=== PATIENT | male | born 1990 | race Caucasian/White ===

== ENCOUNTER 2021-07-27 12:46 | Emergency (ER) | payer MEDICAID, SELFPAY ==
[2021-07-27 12:47] VITALS: BP 162/98; PULSE 97; RESP 18; TEMP 35.8; O2SAT 98; BMI 22.0
--- NOTE | 2021-07-27 13:08 | EX.ED.VIS.PS ---
HPI HPI - Psych History of Present Illness Chief Complaint: Suicidal Informant: patient Narrative Narrative: Patient comes in with suicidal thoughts. He states he has been off his duloxetine for about a week. It did really get started then. But today he just cannot get the thought out of his mind. He does not have a specific plan. Despite a history of depression, he has never had suicidal thoughts before. He has never been admitted for psychiatric reasons. He has had multiple stressors this year. He and his broke up at the end of last year. He has been up in this area again since May living with his mother. He also got Covid back in May. His mother has psychiatric illness and there have been stresses at home. He thinks these are all gaining up on him to produce his symptoms. Nothing really makes them better or worse. He is suspicious that running out of meds might have worsened it. Patient also reports that he is concerned about his health. He had colonoscopy about 1 year ago where they removed some polyps that were cancerous or precancerous. They recommend a repeat colonoscopy in about a year. He states he would be due this month. He occasionally gets some soft stools but no blood. He is not having any symptoms. He has not made arrangements for follow-up. [facility] Medical History Acid reflux Asthma Cancer of intestinal tract Depression Hypertension Polycystic kidney disease Home Medications albuterol sulfate [Proair Hfa (SP)Vent Pts] 1 puff INHALATION Q4H PRN PRN 02/24/16 [History Last Taken Unknown] ketorolac 10 mg PO Q6H PRN #20 tablet 02/03/17 [Rx Last Taken Unknown] ondansetron 4 mg PO Q8H PRN PRN #10 tab 02/03/17 [Rx Last Taken Unknown] oxycodone-acetaminophen 1 - 2 tab PO Q4H PRN PRN #20 tab 02/03/17 [Rx Last Taken Unknown] duloxetine 30 mg PO DAILY #14 cap 07/27/21 [Rx Last Taken Unknown] Allergy/AdvReac Type Severity Reaction Status Date / Time ANTIHISTAMINES AdvReac Other Uncoded 07/27/21 12:49 Social History Smoking Status: Current every day smoker tobacco type: cigarettes ROS ROS ED Constitutional Constitutional ED: Denies fever(s) or subjective Eyes Eyes: Denies blurry vision ENT ENT ED: Denies rhinorrhea or sore throat Cardiovascular Cardiovascular: Denies chest pain Respiratory/Chest Respiratory/Chest: Denies cough or dyspnea Gastrointestinal Gastrointestinal: Denies diarrhea, nausea or vomiting Genitourinary Genitourinary ED: Denies dysuria Musculoskeletal Musculoskeletal: Denies myalgias Integumentary Denies rash Neurologic Neurologic: Denies headache(s) Psychiatric Psychiatric: Reports anxiety, depression and suicidal thoughts Hematologic/Lymphatic Hematologic/Lymphatic: Denies easy bruising Allergic/Immunologic Allergic/Immunologic ED: Denies mouth swelling or urticaria EXAM Physical Exam Const Vital Signs: 07/27/21 12:47 07/27/21 14:22 07/27/21 16:30 Temperature 96.4 F L Temperature Source Temporal Pulse Rate 97 81 Respiratory Rate 18 18 16 Blood Pressure 162/98 H 140/90 H Blood Pressure Mean 119 106 Pulse Ox 98 Oxygen Delivery Method Room Air Positive well nourished and well developed; Negative for unkempt General Appearance ED: well developed; Negative for unkempt HEENT Reports moist mucous membranes Eyes General Eye ED: Negative for pale conjunctiva or scleral icterus Neck no JVD Resp normal respiratory effort and clear to auscultation bilaterally Auscultation: Negative for rales, rhonchi or wheezes Cardio Rate: regular rate Rhythm: regular rhythm GI non-tender and non-distended Palpation: soft Neuro oriented x3 Sensorium / Orientation: alert Psych Appearance: grossly normal; Negative for unkempt Skin General Skin Exam: Negative for jaundice Lesions: no lesions Rashes: no rashes MDM MDM MDM Narrative Medical decision making narrative: Blood work shows normal CBC. Electrolytes are normal other than potassium of 3.3. Alcohol is negative. Tox is negative. Patient is medically cleared for psychiatric evaluation. This patient has a history of depression. He has good insight. He has thoughts of suicide but no specific plan. He does not want to do this. He wants to feel a bit better. We will have crisis see him. Crisis has evaluated him. They are getting him close follow-up. They have contracted for safety. He is a reasonable patient who is sober. I will write for a short course of duloxetine to hold him over. We encouraged him to come back if he has any more thoughts. Lab Data Attestation: I reviewed the patient's lab results. Labs: Laboratory Results - last 24 hr 07/27/21 07/27/21 07/27/21 13:19 13:19 13:19 WBC 8.9 RBC 5.19 Hgb 15.9 Hct 47.4 MCV 91.3 MCH 30.6 MCHC 33.5 RDW Std Deviation 46.4 H RDW Coeff of Carlyn 13.8 Plt Count 309 MPV 8.4 Immature Gran % (Auto) 0.600 Neut % (Auto) 65.2 Lymph % (Auto) 22.0 [place] % (Auto) 10.8 H Eos % (Auto) 0.8 Baso % (Auto) 0.6 Absolute Neuts (auto) 5.8 Absolute Lymphs (auto) 1.96 Nucleated RBC % 0 Sodium 141 Potassium 3.3 L Chloride 105 Carbon Dioxide 26.0 Anion Gap 10 BUN 8 Creatinine 0.72 Estim Creat Clear Calc 137.02 Est GFR (MDRD) Af Amer 161 Est GFR (MDRD) Non-Af 133 BUN/Creatinine Ratio 11.0 Glucose 88 Calcium 10.0 Urine Opiates Screen Urine Methadone Screen Ur Barbiturates Screen Ur Phencyclidine Scrn Ur Amphetamines Screen U Methamphetamin-MDMA U Benzodiazepines Scrn Urine Cocaine Screen U Cannabinoids Screen Ur Drug Screen Comment Ethyl Alcohol < 3.0 07/27/21 14:13 WBC RBC Hgb Hct MCV MCH MCHC RDW Std Deviation RDW Coeff of Carlyn Plt Count MPV Immature Gran % (Auto) Neut % (Auto) Lymph % (Auto) [place] % (Auto) Eos % (Auto) Baso % (Auto) Absolute Neuts (auto) Absolute Lymphs (auto) Nucleated RBC % Sodium Potassium Chloride Carbon Dioxide Anion Gap BUN Creatinine Estim Creat Clear Calc Est GFR (MDRD) Af Amer Est GFR (MDRD) Non-Af BUN/Creatinine Ratio Glucose Calcium Urine Opiates Screen NEGATIVE Urine Methadone Screen NEGATIVE Ur Barbiturates Screen NEGATIVE Ur Phencyclidine Scrn NEGATIVE Ur Amphetamines Screen NEGATIVE U Methamphetamin-MDMA NEGATIVE U Benzodiazepines Scrn NEGATIVE Urine Cocaine Screen NEGATIVE U Cannabinoids Screen NEGATIVE Ur Drug Screen Comment Ethyl Alcohol Discharge Plan Triage Chief Complaint: Suicidal ED Provider: Juan Pink Dx/Rx/DC Orders Clinical Impression: Depression, Suicide ideation Instructions: Recognizing Suicide Warning ... Prescriptions: New duloxetine 30 mg capsule,delayed release(DR/EC) 30 mg PO DAILY Qty: 14 RF: 0 No Action albuterol sulfate [ProAir HFA] 1 PUFF inhaler 1 puff inhalation Q4H PRN PRN (Reason: Asthma) RF: 0 ketorolac 10 MG tablet 10 mg PO Q6H PRN (Reason: Pain) Qty: 20 RF: 0 oxycodone-acetaminophen 1 TABLET tablet 1 - 2 tab PO Q4H PRN PRN (Reason: Pain) Qty: 20 RF: 0 ondansetron 4 MG tablet 4 mg PO Q8H PRN PRN (Reason: Nausea) Qty: 10 RF: 0 Primary Care Provider: Care Physician,No Primary Referrals: Ronni Landaverde MD [STAFF PHYSICIAN] - As soon as possible Activity Restrictions/Additional Instructions: Follow-up with counseling as arranged by crisis intervention. Disposition Disposition: Home, Self Care
--- NOTE | 2021-07-27 13:19 | ED.RN ---
Patient brought self into ED for evaluation due to vague thoughts of harming self. Patient is calm and cooperative and has no real plan for suicide attempts, never attempted prior. Recent divorce and family issues.
[2021-07-27 13:29] LABS: Absolute Lymphocyte Count 1.96 X10^3/uL (0.83-4.51); Absolute Neutrophil Count 5.8 X10^3/uL (2.0-7.7); Basophil# 0.05 X10^3/uL; Basophil% 0.6 % (0-1); Eosinophil# 0.07 X10^3/uL; Eosinophils% 0.8 % (0-5); Hematocrit 47.4 % (40-54); Hemoglobin 15.9 g/dL (13.0-16.5); Lymphocyte # 1.96 X10^3/ul (0.83-4.51); Mean Corp Hgb Conc 33.5 g/dL (32-36); Mean Corpuscular Hgb 30.6 pg (27.0-32.0); Mean Corpuscular Volume 91.3 fL (80-94); Mean Platelet Vol. 8.4 fl (6.2-12.0); Monocyte# 0.96 X10^3/uL; Monocyte% 10.8 % (0-10); NRBC Flagged by Analyzer 0 % (0-5); Neutrophil # 5.83 X10^3/uL (2.7-7.7); Neutrophil % 65.2 % (47-70); Platelet Count 309 K/mm3 (150-450); RBC Distribution Width CV 13.8 % (11.6-14.6); RBC Distribution Width SD 46.4 fl (35.1-43.9); Red Blood Count 5.19 M/mm3 (4.6-6.2); White Blood Count 8.9 K/mm3 (4.4-11.0)
[2021-07-27 13:41] LABS: Anion Gap 10 (5-15); BUN 8 mg/dL (7-18); Chloride 105 mmol/L (98-107); Creatinine, Serum 0.72 mg/dL (0.70-1.30); EST Glomerular Filtration Rate 133 mL/min (>60); Est Glom Filt Rate - Afr Amer 161 mL/min (>60); Estimated Creatinine Clearance 137.02 ml/min; Glucose 88 mg/dL (74-106); Potassium 3.3 mmol/L (3.5-5.1); Sodium Level 141 mmol/L (136-145)
[2021-07-27 13:49] LABS: Alcohol, Blood (Medical)-Serum < 3.0 mg/dL
[2021-07-27 14:22] VITALS: RESP 18
[2021-07-27 14:50] LABS: Amphetamine Urine VISTA NEGATIVE (<1000 ng/mL); Barbiturate Urine VISTA NEGATIVE (< 200 ng/mL); Benzodiazepine Urine VISTA NEGATIVE (< 200 ng/mL); Cocaine Urine VISTA NEGATIVE (< 300 ng/mL); Ecstacy Urine VISTA NEGATIVE (< 500 ng/mL); Methadone Urine VISTA NEGATIVE (< 300 ng/mL); PCP Urine VISTA NEGATIVE (< 25 ng/mL); THC Urine VISTA NEGATIVE (< 50 ng/mL); Vista UDS pH Range 7
[2021-07-27] MEDS: Potassium Chloride Oral Tablet 20 MEQ 40 MEQ PO (15:29)
[2021-07-27 16:30] VITALS: BP 140/90; PULSE 81; RESP 16
[2021-07-27] MEDS: DULoxetine Hcl 30 MG Capsule PO (18:48)
--- NOTE | 2021-07-27 19:13 | ED.RN ---
Delayed discharge due to awaiting Cymbalta to come from pharmacy. Pt. also requesting blood pressure medication prescription refill at time of discharge, delaying discharge.
[2021-07-27 19:14] VITALS: BP 152/100; PULSE 85
== END 2021-07-27 19:15 | disposition home or self-care (01) ==
PROVIDERS: Emergency Provider Emergency Medicine; Visit Provider Emergency Medicine
DX: F32.A Depression, unspecified (principal); R45.851 Suicidal ideations; F17.210 Nicotine dependence, cigarettes, uncomplicated
CPT/HCPCS: 80048; 80307; 82077; 85025; 87426; 99284

== ENCOUNTER 2022-01-17 22:02 | Emergency (ER) | payer MEDICAID, SELFPAY ==
[2022-01-17 22:02] VITALS: BP 133/97; PULSE 96; RESP 16; TEMP 37; O2SAT 100; BMI 21.2
--- NOTE | 2022-01-17 22:25 | CT_ITS ---
STUDY: CT ABDOMEN AND PELVIS WITHOUT CONTRAST REASON FOR EXAM: Male, 31 years old. Left flank pain. History of kidney stones. RADIATION DOSAGE (If Supplied By Facility): CTDIvol = ( 6.06 ) mGy, DLP = ( 320.79 ) mGycm TECHNIQUE: Transaxial images were obtained from the dome of the diaphragm to the symphysis pubis without oral contrast, and without intravenous contrast. Sagittal and coronal images were reconstructed. Individualized dose optimization techniques were used for this CT. COMPARISON: 02/03/2017. FINDINGS: The visualized lung bases are unremarkable. The visualized portions of the heart are within normal limits. Normal liver. Normal gallbladder and extrahepatic biliary system. Normal spleen. Normal pancreas. Normal bilateral adrenal glands. There is a large water attenuation mass extending off the upper pole of the right kidney measuring 5 x 4.7 x 7.2 cm thought to represent a cyst. There is a thin calcified septation. The there is a 2 mm nonobstructing calculus in the mid renal calyx. 2 mm calcification is seen in the lower pole calyx. No hydronephrosis. Normal visualized right ureter. There is a 3 mm calcification in the urinary bladder at the expected position of the right UVJ.. Left kidney is of normal size and contour. There are multiple tiny nonobstructing renal calculi. The largest in the mid kidney measures 2 mm. Question small upper pole cyst. No hydronephrosis. Normal visualized left ureter. Normal visualized stomach. Normal small intestine. Normal colon. The appendix is visualized and appears normal. Normal abdominal aorta. Normal inferior vena cava. Normal retroperitoneum. Normal urinary bladder. Prostate. No pelvic lymphadenopathy. Phleboliths in the left pelvis. No free air or free fluid is seen within the peritoneal cavity. Normal abdominal wall. Normal osseous structures. CT/Abdomen/Pelvis without Cont IMPRESSION: 1. Bilateral nonobstructing renal calculi without hydronephrosis. 2. Small calcification in the right urinary bladder thought to be a stone at the right UVJ or recently passed stone. 3. Complicated cyst in the upper pole left kidney with thin linear calcified septum. Question BOCHDALEK type II cyst. 4. Question small cortical cyst in the upper pole left kidney. 5. Otherwise normal CT of the abdomen and pelvis. Electronically Signed: Abel Hensley DO at 23:35 EDT Reading Location ID and State: [address] [place] [address] Tel [phone], Service support ,
--- NOTE | 2022-01-17 22:26 | EDS_ITS ---
HPI History of Present Illness Chief Complaint: Flank Pain Informant: patient Narrative Narrative: 31-year-old male presenting to the emergency room with left flank pain. Patient notes a history of kidney stones. Symptoms began abruptly 1 hour ago. He notes radiation to his left testicle. He notes associated nausea. He describes the pain as severe and sharp. [facility] Medical History Acid reflux Asthma Cancer of intestinal tract Depression Hypertension Polycystic kidney disease Home Medications duloxetine 30 mg capsule,delayed release 60 mg PO DAILY 01/17/22 [History Last Taken Unknown] oxycodone-acetaminophen 5 mg-325 mg tablet 1 tab PO Q6H PRN PRN pain 5 days #20 TABLETS 01/18/22 [Rx Last Taken Unknown] Allergy/AdvReac Type Severity Reaction Status Date / Time ANTIHISTAMINES AdvReac Other Uncoded 07/27/21 12:49 Social History (Updated 01/17/22 @ 22:[address] Yordan Stafford DO) Smoking Status: Current every day smoker tobacco type: cigarettes substance use type: does not use ROS ROS ED Constitutional Constitutional ED: Denies chills or weight loss Eyes Eyes: Denies change in vision or diplopia ENT ENT ED: Denies ear pain, rhinorrhea or sore throat Cardiovascular Cardiovascular: Denies chest pain, orthopnea, palpitations or racing heartbeat Respiratory/Chest Respiratory/Chest: Denies cough, dyspnea or orthopnea Gastrointestinal Gastrointestinal: Reports abdominal pain and nausea; Denies diarrhea or vomiting Genitourinary Genitourinary ED: Reports other Details: Flank pain testicular pain ; Denies dysuria, hematuria or urinary frequency Musculoskeletal Musculoskeletal: Denies arthralgias or myalgias Integumentary Denies abscess or rash Neurologic Neurologic: Denies headache(s) or weakness Psychiatric Psychiatric: Denies anxiety, depression, suicidal ideation or suicidal thoughts Endocrine Endocrinology: Denies polydipsia, polyphagia or polyuria Allergic/Immunologic Allergic/Immunologic ED: Denies mouth swelling, tongue swelling or urticaria EXAM Physical Exam Narrative Exam Narrative: Patient appears in pain. Const Vital Signs: 01/17/22 22:02 Temperature 98.6 F Temperature Source Temporal Pulse Rate 96 Respiratory Rate 16 Blood Pressure 133/97 H Blood Pressure Mean 109 Pulse Ox 100 Oxygen Delivery Method Room Air Positive well nourished and well developed General Appearance ED: well developed HEENT Reports normocephalic, head/scalp atraumatic and moist mucous membranes Eyes PERRL and EOMs intact bilaterally Neck no lymphadenopathy, supple and no JVD Resp normal respiratory effort and clear to auscultation bilaterally Cardio regular rate, regular rhythm and no murmurs GI normal to inspection, nondistended, normoactive bowel sounds and non-tender Palpation: soft Narrative: Scrotal examination is benign Back/Spine no CVA tenderness and normal ROM Extremity normal to inspection General Extremety ED: Negative for edema General Extremity: Negative for edema Neuro oriented x3 and CN's II-XII intact bilaterally Sensorium / Orientation: alert Motor Exam: strength 5/5 throughout Psych mental status grossly normal Mood & Affect: Negative for depressed or tearful Skin no rashes or lesions noted and no wounds MDM MDM MDM Narrative Medical decision making narrative: Urine shows some microscopic hematuria. White count at 9. Creatinine 1.07. CT of the abdomen pelvis demonstrates a small right UVJ stone. Patient received pain and nausea medication as well as fluids. Repeat examination finds him saying that he still having testicular pain and now points to more of the mid back instead of the left flank. He received additional dose of pain medicine and is feeling better. He is describing now more of a suprapubic pressure and urge to urinate. I will write for him to have pain medication. Return if worsening or concerns Lab Data Attestation: I reviewed the patient's lab results. Labs: Laboratory Results - last 24 hr 01/17/22 01/17/22 01/17/22 22:10 22:10 23:20 WBC 9.1 RBC 4.92 Hgb 15.4 Hct 45.9 MCV 93.3 MCH 31.3 MCHC 33.6 RDW Std Deviation 45.5 H RDW Coeff of Carlyn 13.3 Plt Count 314 MPV 8.7 Immature Gran % (Auto) 0.200 Neut % (Auto) 50.7 Lymph % (Auto) 32.9 [place] % (Auto) 13.7 H Eos % (Auto) 1.8 Baso % (Auto) 0.7 Absolute Neuts (auto) 4.6 Absolute Lymphs (auto) 2.99 Nucleated RBC % 0 Sodium 141 Potassium 3.6 Chloride 108 H Carbon Dioxide 25.0 Anion Gap 8 BUN 13 Creatinine 1.07 Estim Creat Clear Calc 88.20 Est GFR (MDRD) Af Amer 102 Est GFR (MDRD) Non-Af 84 BUN/Creatinine Ratio 12.1 Glucose 97 Calcium 9.7 Urine Color Yellow Urine Clarity Clear Urine pH 8.0 Ur Specific [place] 1.020 Urine Protein 15 H Urine Glucose (UA) Normal Urine Ketones 15 H Urine Occult Blood 150 H Urine Nitrite Negative Urine Bilirubin Negative Urine Urobilinogen 4 H Ur Leukocyte Esterase 25 H Urine RBC 10-25 SEEN Urine WBC 0-5 SEEN Ur Squamous Epith Cells 0 SEEN Urine Bacteria RARE Urine Mucus 2+ Radiography Diagnostic Testing: Clinical Impression(s) from Imaging Studies Abdomen/Pelvis CT 01/17/22 22:25 IMPRESSION: 1. Bilateral nonobstructing renal calculi without hydronephrosis. 2. Small calcification in the right urinary bladder thought to be a stone at the right UVJ or recently passed stone. 3. Complicated cyst in the upper pole left kidney with thin linear calcified septum. Question [place] type II cyst. 4. Question small cortical cyst in the upper pole left kidney. 5. Otherwise normal CT of the abdomen and pelvis. Electronically Signed: Abel Hensley DO at 23:35 EDT Reading Location ID and State: [address] [place] [address] Tel [phone], Service support , Discharge Plan Triage Chief Complaint: Flank Pain ED Provider: Yordan Stafford Dx/Rx/DC Orders Clinical Impression: Renal colic, Ureterolithiasis Instructions: ED Kidney Stone w/ Colic Prescriptions: New oxycodone-acetaminophen [oxycodone-acetaminophen] 5-325 mg tablet 1 tab PO Q6H PRN PRN (Reason: pain) 5 Days Qty: 20 0RF No Action duloxetine 30 mg capsule,delayed release(DR/EC) 60 mg PO DAILY Primary Care Provider: Care Physician,No Primary Referrals: Rl Vicente MD [STAFF PHYSICIAN] - As Needed (for urology ) Care Physician,No Primary [Primary Care Provider] - Disposition Disposition: Home, Self Care
[2022-01-17 22:34] LABS: Absolute Lymphocyte Count 2.99 X10^3/uL (0.83-4.51); Absolute Neutrophil Count 4.6 X10^3/uL (2.0-7.7); Basophil# 0.06 X10^3/uL; Basophil% 0.7 % (0-1); Eosinophil# 0.16 X10^3/uL; Eosinophils% 1.8 % (0-5); Hematocrit 45.9 % (40-54); Hemoglobin 15.4 g/dL (13.0-16.5); Lymphocyte # 2.99 X10^3/ul (0.83-4.51); Lymphocyte % 32.9 % (19-41); Mean Corp Hgb Conc 33.6 g/dL (32-36); Mean Corpuscular Hgb 31.3 pg (27.0-32.0); Mean Corpuscular Volume 93.3 fL (80-94); Mean Platelet Vol. 8.7 fl (6.2-12.0); Monocyte# 1.24 X10^3/uL; Monocyte% 13.7 % (0-10); NRBC Flagged by Analyzer 0 % (0-5); Neutrophil # 4.61 X10^3/uL (2.7-7.7); Neutrophil % 50.7 % (47-70); Platelet Count 314 K/mm3 (150-450); RBC Distribution Width CV 13.3 % (11.6-14.6); RBC Distribution Width SD 45.5 fl (35.1-43.9); Red Blood Count 4.92 M/mm3 (4.6-6.2); White Blood Count 9.1 K/mm3 (4.4-11.0)
[2022-01-17] MEDS: Ondansetron 4 MG/2 ML Vial IV (22:34)
[2022-01-17] MEDS: Ketorolac 30 MG/ML Syringe IV (22:34)
[2022-01-17] MEDS: Morphine 4 MG/ML Syringe IV (22:34)
[2022-01-17] MEDS: 0.9% Normal Saline 1,000 ML 250 ML IV (22:36)
[2022-01-17 22:49] LABS: Anion Gap 8 (5-15); BUN 13 mg/dL (7-18); BUN/Creat Ratio 12.1 RATIO (10-20); Calcium,Total 9.7 mg/dL (8.5-10.1); Chloride 108 mmol/L (98-107); Creatinine, Serum 1.07 mg/dL (0.70-1.30); EST Glomerular Filtration Rate 84 mL/min (>60); Est Glom Filt Rate - Afr Amer 102 mL/min (>60); Glucose 97 mg/dL (74-106); Potassium 3.6 mmol/L (3.5-5.1); Sodium Level 141 mmol/L (136-145)
[2022-01-17 23:50] LABS: Squamous Epithelial Cells - UA 0 SEEN /hpf (0-5)
[2022-01-17 23:53] LABS: Color, Urine Yellow (Yellow); Glucose, Dipstick Normal (Normal); Ketone-Dipstick 15 mg/dl (Negative); Leukocyte Esterase-Dipstick 25 /ul (Negative); Nitrite-Dipstick Negative (Negative); Occult Blood-Urine 150 /ul (Negative); Protein-Dipstick 15 mg/dl (Negative); Urine Bilirubin Dipstick Negative (Negative); Urine Clarity Clear (Clear); Urine Urobilinogen 4 mg/dl (Normal)
[2022-01-18 00:12] LABS: Bacteria RARE /hpf (None Seen); Mucous, Urine 2+ /hpf (<or=2+); Red Blood Cells-Urine 10-25 SEEN /hpf (0-5); White Blood Cells 0-5 SEEN /hpf (0-5)
[2022-01-18] MEDS: Morphine 4 MG/ML Syringe IV (00:31)
[2022-01-18 01:32] VITALS: BP 117/84; PULSE 89; RESP 15; O2SAT 99
== END 2022-01-18 02:27 | disposition home or self-care (01) ==
PROVIDERS: Emergency Provider Emergency Medicine; Visit Provider Emergency Medicine
DX: N20.1 Calculus of ureter (principal); F32.A Depression, unspecified; F41.9 Anxiety disorder, unspecified; Q61.3 Polycystic kidney, unspecified; J45.909 Unspecified asthma, uncomplicated; Z79.899 Other long term (current) drug therapy; Z87.442 Personal history of urinary calculi; F17.210 Nicotine dependence, cigarettes, uncomplicated
CPT/HCPCS: 74176; 80048; 81001; 85025; 96361; 96374; 96375; 96376; 99283; J7030; A4216; J2405

== ENCOUNTER 2022-01-19 15:21 | Emergency (ER) | payer MEDICAID, SELFPAY ==
[2022-01-19 15:22] VITALS: BP 126/85; PULSE 101; RESP 18; TEMP 36.5; O2SAT 100; BMI 21.2
--- NOTE | 2022-01-19 15:45 | EKG12_ITS ---
Test Reason : CP Blood Pressure : / mmHG Vent. Rate : 094 BPM Atrial Rate : 094 BPM P-R Int : 120 ms QRS Dur : 086 ms QT Int : 340 ms P-R-T Axes : 074 062 049 degrees QTc Int : 425 ms Normal sinus rhythm Normal ECG Confirmed by ABBEY TATUM, MEAGHAN ([id number]), book or script editor RUDY RODRIGUEZ ([id number]) on 01/22/2022 9:57:53 AM Referred By: ASPEN/EULALIA/TED Confirmed By:MEAGHAN POTTER MD
[2022-01-19 15:46] VITALS: BP 130/85; PULSE 95; RESP 16; O2SAT 99
--- NOTE | 2022-01-19 15:50 | EX.ED.DYSGE1 ---
HPI History of Present Illness Chief Complaint: Chest Pain Detail of Chief Complaint: Chest pain, sleepiness, muscle twitching Informant: patient Onset/Context/Timing Onset: Days Context: Gradual Onset Narrative Narrative: Patient was seen in the emergency room 2 days ago secondary to kidney stone. Patient states since he left the emergency room he just has not quite felt right. He feels very fatigued and wants to sleep a lot. He states he physically has a hard time getting a deep breath in. He has some intermittent left upper chest pain that occasionally shoots down his left arm. He states he has muscle twitches. He received Toradol, morphine, and Zofran while in the emergency room. He has had all these medications previously without reaction. He was given a prescription for Percocet patient states he is only taken 1 at home. [facility] Medical History Acid reflux Asthma Cancer of intestinal tract Depression Hypertension Polycystic kidney disease Home Medications duloxetine 30 mg capsule,delayed release 60 mg PO DAILY 01/17/22 [History Last Taken Unknown] oxycodone-acetaminophen 5 mg-325 mg tablet 1 tab PO Q6H PRN PRN pain 5 days #20 TABLETS 01/18/22 [Rx Last Taken Unknown] albuterol 90 mcg/actuation aerosol inhaler 90 mcg inhalation Q4H PRN PRN Shortness Of Breath 01/19/22 [History Last Taken Unknown] omeprazole 20 mg tablet,delayed release 20 mg PO DAILY 01/19/22 [History Last Taken Unknown] potassium chloride 20 mEq tablet,extended release 20 meq PO BID #6 tabs 01/19/22 [Rx Last Taken Unknown] Allergy/AdvReac Type Severity Reaction Status Date / Time ANTIHISTAMINES AdvReac Other Uncoded 01/19/22 15:24 Social History Smoking Status: Current every day smoker tobacco type: cigarettes substance use type: does not use ROS ROS ED Constitutional Constitutional ED: Denies chills or fever(s) Eyes Eyes: Denies change in vision or discharge from eye(s) ENT ENT ED: Denies discharge from eye(s), rhinorrhea or sore throat Cardiovascular Cardiovascular: Reports chest pain; Denies palpitations Respiratory/Chest Respiratory/Chest: Reports dyspnea; Denies cough Gastrointestinal Gastrointestinal: Reports abdominal pain; Denies diarrhea, nausea or vomiting Genitourinary Genitourinary ED: Denies difficulty urinating or dysuria Musculoskeletal Musculoskeletal: Denies back pain or extremity pain Integumentary Denies Abrasions or rash Neurologic Neurologic: Reports weakness; Denies headache(s) Allergic/Immunologic Allergic/Immunologic ED: Denies lip swelling or urticaria EXAM Physical Exam Const Vital Signs: 01/19/22 15:22 01/19/22 15:46 01/19/22 15:47 Temperature 97.7 F L Temperature Source Temporal Pulse Rate 101 H 95 Respiratory Rate 18 16 Respiratory Effort Normal Blood Pressure 126/85 H 130/85 H Blood Pressure Mean 98 100 Pulse Ox 100 99 Oxygen Delivery Method Room Air Room Air Positive well nourished and well developed General Appearance ED: well developed HEENT Reports normocephalic and head/scalp atraumatic Eyes PERRL and EOMs intact bilaterally Neck supple Chest Wall inspection of chest normal and palpation of chest normal Resp normal respiratory effort and clear to auscultation bilaterally Cardio regular rate and regular rhythm GI non-tender Auscultation: normoactive bowel sounds Palpation: soft Extremity normal to inspection Neuro oriented x3 and no sensory deficits noted Sensorium / Orientation: alert Motor Exam: strength 5/5 throughout Psych mental status grossly normal Skin no rashes or lesions noted MDM MDM MDM Narrative Medical decision making narrative: Patient given IV fluids. Lab work, urinalysis obtained. EKG and chest x-ray ordered. Lab Data Attestation: I reviewed the patient's lab results. Labs: Laboratory Results - last 24 hr 01/19/22 01/19/22 01/19/22 15:30 15:30 16:10 WBC 10.1 RBC 5.02 Hgb 15.5 Hct 47.2 MCV 94.0 MCH 30.9 MCHC 32.8 RDW Std Deviation 46.2 H RDW Coeff of Carlyn 13.4 Plt Count 273 MPV 8.8 Immature Gran % (Auto) 0.400 Neut % (Auto) 69.1 Lymph % (Auto) 21.9 [place] % (Auto) 6.7 Eos % (Auto) 1.3 Baso % (Auto) 0.6 Absolute Neuts (auto) 7.0 Absolute Lymphs (auto) 2.21 Nucleated RBC % 0 Sodium 143 Potassium 3.3 L Chloride 108 H Carbon Dioxide 27.0 Anion Gap 8 BUN 8 Creatinine 1.04 Estim Creat Clear Calc 90.74 Est GFR (MDRD) Af Amer 106 Est GFR (MDRD) Non-Af 87 BUN/Creatinine Ratio 7.7 L Glucose 135 H Calcium 9.2 Total Bilirubin 0.30 Direct Bilirubin 0.08 AST 14 L ALT 23 Alkaline Phosphatase 81 Troponin I High Sens < 3 L Total Protein 7.0 Albumin 3.8 Globulin 3.2 Urine Color Yellow Urine Clarity Clear Urine pH 8.0 Ur Specific [place] 1.010 Urine Protein Negative Urine Glucose (UA) Normal Urine Ketones 5 H Urine Occult Blood Negative Urine Nitrite Negative Urine Bilirubin Negative Urine Urobilinogen Normal Ur Leukocyte Esterase 25 H Urine RBC 0-5 SEEN Urine WBC 0-5 SEEN Ur Squamous Epith Cells 0-5 SEEN Urine Bacteria 1+ Urine Mucus 1+ Radiography Chest X-Ray - ED: 1 View, Read by ED Physician, Normal, Heart, Lungs and Mediastinum Diagnostic Testing: Clinical Impression(s) from Imaging Studies Chest X-Ray 01/19/22 16:00 IMPRESSION: No evidence of acute cardiopulmonary process. Electronically Signed: Jeff Potter DO at 16:34 EDT Reading Location ID and State: [facility] / [place] , Service support , EKG Initial EKG: Attestation: I personally reviewed and interpreted this EKG as follows: Interpretation: Sinus Rhythm (Sinus at 94 with no acute ischemia.) Treatment and Re-Evaluation Narrative: Lab work reveals normal white count and hemoglobin. Chemistry studies significant for slightly low potassium at 3.3. Renal function is unremarkable. LFTs and troponin normal. Urinalysis shows no acute infection. EKG reveals no ischemia and chest x-ray per my interpretation is normal. Patient is given oral potassium replacement. Test results discussed with him. I will write him for a few more days of potassium replacement. He is concerned that his symptoms may represent recurrence of the intestinal cancer he had removed last year. He was advised if his symptoms do not improve with potassium replacement and rest he should follow-up with his doctor for potential blood marker evaluation versus repeat colonoscopy. He voices understanding and agreement. Return instructions given. Discharge Plan Triage Chief Complaint: Chest Pain ED Provider: Larios,Tri Dx/Rx/DC Orders Clinical Impression: Fatigue, Acute hypokalemia, Chest pain, non-cardiac Instructions: ED Chest Pain, Noncardiac, ED Hypokalemia Prescriptions: New potassium chloride 20 mEq tablet extended release 20 meq PO BID Qty: 6 0RF No Action duloxetine 30 mg capsule,delayed release(DR/EC) 60 mg PO DAILY oxycodone-acetaminophen [oxycodone-acetaminophen] 5-325 mg tablet 1 tab PO Q6H PRN PRN (Reason: pain) 5 Days Qty: 20 0RF albuterol 90 mcg/actuation Aerosol 90 mcg INHALATION Q4H PRN PRN (Reason: Shortness Of Breath) omeprazole 20 mg Tablet,Delayed Release (Dr/Ec) 20 mg PO DAILY Primary Care Provider: Care Physician,No Primary Referrals: Ronni Rosas MD [STAFF PHYSICIAN] - As Needed Care Physician,No Primary [Primary Care Provider] - Disposition Disposition: Home, Self Care
[2022-01-19] MEDS: 0.9% Normal Saline 1,000 ML 1000 ML IV (15:55)
[2022-01-19 16:00] LABS: Absolute Lymphocyte Count 2.21 X10^3/uL (0.83-4.51); Basophil# 0.06 X10^3/uL; Basophil% 0.6 % (0-1); Eosinophil# 0.13 X10^3/uL; Eosinophils% 1.3 % (0-5); Hematocrit 47.2 % (40-54); Hemoglobin 15.5 g/dL (13.0-16.5); Lymphocyte # 2.21 X10^3/ul (0.83-4.51); Lymphocyte % 21.9 % (19-41); Mean Corp Hgb Conc 32.8 g/dL (32-36); Mean Corpuscular Hgb 30.9 pg (27.0-32.0); Mean Platelet Vol. 8.8 fl (6.2-12.0); Monocyte# 0.68 X10^3/uL; Monocyte% 6.7 % (0-10); NRBC Flagged by Analyzer 0 % (0-5); Neutrophil # 6.97 X10^3/uL (2.7-7.7); Neutrophil % 69.1 % (47-70); Platelet Count 273 K/mm3 (150-450); RBC Distribution Width CV 13.4 % (11.6-14.6); RBC Distribution Width SD 46.2 fl (35.1-43.9); Red Blood Count 5.02 M/mm3 (4.6-6.2); White Blood Count 10.1 K/mm3 (4.4-11.0)
--- NOTE | 2022-01-19 16:00 | RAD_ITS ---
STUDY: X-RAY CHEST REASON FOR EXAM: Male, 31 years old. chest pain TECHNIQUE: Single AP portable view of the chest. COMPARISON: 03/23/2011 FINDINGS: The lungs are clear and expanded. There is no demonstrated pleural abnormality. Normal size heart. Normal mediastinum and june. Normal visualized pulmonary arteries. Normal visualized aortic arch and descending thoracic aorta. Normal visualized thoracic spine. Normal visualized ribs, clavicles, and shoulders. There is no demonstrated abnormality of the visualized soft tissue structures of the upper abdomen. RAD/Chest 1 View (Portable) IMPRESSION: No evidence of acute cardiopulmonary process. Electronically Signed: Jeff Potter DO at 16:34 EDT ,
[2022-01-19 16:21] LABS: Color, Urine Yellow (Yellow); Glucose, Dipstick Normal (Normal); Ketone-Dipstick 5 mg/dl (Negative); Leukocyte Esterase-Dipstick 25 /ul (Negative); Nitrite-Dipstick Negative (Negative); Occult Blood-Urine Negative /ul (Negative); Protein-Dipstick Negative (Negative); Urine Bilirubin Dipstick Negative (Negative); Urine Clarity Clear (Clear); Urine Urobilinogen Normal (Normal)
[2022-01-19 16:23] LABS: AST(SGOT) 14 U/L (15-37); Alanine Aminotransfer ALT/SGPT 23 U/L (16-61); Albumin, Serum 3.8 g/dL (3.2-5.0); Alkaline Phosphatase 81 U/L (45-117); Anion Gap 8 (5-15); BUN 8 mg/dL (7-18); BUN/Creat Ratio 7.7 RATIO (10-20); Bilirubin, Direct 0.08 mg/dL (0.00-0.30); Calcium,Total 9.2 mg/dL (8.5-10.1); Chloride 108 mmol/L (98-107); Creatinine, Serum 1.04 mg/dL (0.70-1.30); EST Glomerular Filtration Rate 87 mL/min (>60); Est Glom Filt Rate - Afr Amer 106 mL/min (>60); Estimated Creatinine Clearance 90.74 ml/min; Globulin 3.2 g/dL (2.2-4.2); Glucose 135 mg/dL (74-106); Potassium 3.3 mmol/L (3.5-5.1); Sodium Level 143 mmol/L (136-145); Troponin-I HS < 3 pg/mL (3.0-78.0)
[2022-01-19] MEDS: Potassium Chloride Oral Tablet 20 MEQ 40 MEQ PO (16:27)
[2022-01-19 16:47] LABS: Red Blood Cells-Urine 0-5 SEEN /hpf (0-5); Squamous Epithelial Cells - UA 0-5 SEEN /hpf (0-5); White Blood Cells 0-5 SEEN /hpf (0-5)
[2022-01-19 16:48] LABS: Bacteria 1+ /hpf (None Seen); Mucous, Urine 1+ /hpf (<or=2+)
[2022-01-19 17:11] VITALS: BP 125/84; PULSE 93; RESP 16; O2SAT 100
== END 2022-01-19 17:22 | disposition home or self-care (01) ==
PROVIDERS: Emergency Provider Emergency Medicine; Visit Provider Emergency Medicine
DX: R07.89 Other chest pain (principal); E87.6 Hypokalemia; I10 Essential (primary) hypertension; F17.210 Nicotine dependence, cigarettes, uncomplicated; R53.83 Other fatigue; J45.909 Unspecified asthma, uncomplicated; K21.9 Gastro-esophageal reflux disease without esophagitis; F32.A Depression, unspecified; Q61.3 Polycystic kidney, unspecified; Z79.899 Other long term (current) drug therapy; R06.00 Dyspnea, unspecified; Z85.038 Personal history of other malignant neoplasm of large intestine; Z87.442 Personal history of urinary calculi
CPT/HCPCS: 71045; 80048; 80076; 81001; 84484; 85025; 93005; 96360; 99285; J7030; A4216

== ENCOUNTER 2022-03-21 12:05 | Emergency (ER) | payer MEDICAID, SELFPAY ==
[2022-03-21 12:09] VITALS: BP 123/99; PULSE 112; RESP 14; TEMP 36.3; O2SAT 100; BMI 20.8
--- NOTE | 2022-03-21 12:22 | EKG12_ITS ---
Test Reason : cp Blood Pressure : / mmHG Vent. Rate : 098 BPM Atrial Rate : 098 BPM P-R Int : 118 ms QRS Dur : 084 ms QT Int : 318 ms P-R-T Axes : 080 077 069 degrees QTc Int : 405 ms Normal sinus rhythm with sinus arrhythmia Normal ECG Confirmed by JEFFERSON TATUM, JOSE ([id number]), story editor RUDY RODRIGUEZ ([id number]) on 03/22/2022 2:11:43 PM Referred By: Alfred Confirmed By:ELDA PAULINO MD
--- NOTE | 2022-03-21 12:23 | EDS_ITS ---
HPI History of Present Illness Chief Complaint: Chest Pain Informant: patient Onset/Context/Timing Onset: Days Activity at onset: gradual Timing: Continuous Quality: Positive for Aching Location: Left Chest Current Severity: Mild Maximum Severity: Mild Worsened By: Nothing; Not Worsened By Exertion, Movement of Arm, Movement of Torso, Eating, Palpation, Breathing or Coughing Relieved By: Nothing Associated Symptoms: Negative for Nausea, Vomiting, Diaphoresis, Dyspnea, Cough, Fever, Lightheadedness, Acid Reflux or Palpitations Narrative Narrative: 30-year-old male history of prior kidney stone and polycystic kidney disease. States that he has had chest pain which she describes as pressure since Friday that came on at rest. No cardiac history. No history of DVT or PE. No hemoptysis. Is not pleuritic. Nothing particularly makes the pain better or worse. Is not associated with exertion. No recent travel, surgery or immobilization. Prior Similar Symptoms: No Recent Illness/Hospitalization: Yes CVD Risk Factors: Positive for Smoking; Negative for Hypertension, Diabetes or Hypercholesterolemia PE Risk Factors: Negative for Recent Travel/Surgery, Recent Immobilization, Prior DVT or PE, Cancer or OCP + Smoking + >/=35 TAD Risk Factors: Negative for Marfan's Syndrome or Hypertension [facility] Medical History Acid reflux Asthma Cancer of intestinal tract Depression Hypertension Polycystic kidney disease Home Medications duloxetine 30 mg capsule,delayed release 60 mg PO DAILY 01/17/22 [History Last Taken Unknown] oxycodone-acetaminophen 5 mg-325 mg tablet 1 tab PO Q6H PRN PRN pain 5 days #20 TABLETS 01/18/22 [Rx Last Taken Unknown] albuterol 90 mcg/actuation aerosol inhaler 90 mcg inhalation Q4H PRN PRN Shortness Of Breath 01/19/22 [History Last Taken Unknown] omeprazole 20 mg tablet,delayed release 20 mg PO DAILY 01/19/22 [History Last Taken Unknown] potassium chloride 20 mEq tablet,extended release 20 meq PO BID #6 tabs 01/19/22 [Rx Last Taken Unknown] Allergy/AdvReac Type Severity Reaction Status Date / Time Antihistamines - Alkylamine AdvReac Other Verified 03/21/22 12:08 Antihistamines - Ethanolamine AdvReac Other Verified 03/21/22 12:08 Antihistamines - AdvReac Other Verified 03/21/22 12:08 Ethylenediamine Antihistamines - Piperazine AdvReac Other Verified 03/21/22 12:08 Antihistamines - Piperidine AdvReac Other Verified 03/21/22 12:08 shellfish derived AdvReac Abd Verified 03/21/22 12:08 cramps/diarrhea Social History Smoking Status: Current every day smoker tobacco type: cigarettes substance use type: does not use ROS ROS ED ROS Narrative Left-sided chest pain Constitutional Constitutional ED: Denies chills or fever(s) Eyes Eyes: Denies none or blurry vision ENT ENT ED: Denies ear pain Cardiovascular Cardiovascular: Reports as per HPI and chest pain; Denies palpitations or racing heartbeat Respiratory/Chest Respiratory/Chest: Denies cough or dyspnea Gastrointestinal Gastrointestinal: Denies abdominal pain Genitourinary Genitourinary ED: Denies dysuria Musculoskeletal Musculoskeletal: Denies arthralgias Integumentary Denies abscess Neurologic Neurologic: Denies headache(s) Psychiatric Psychiatric: Denies anxiety Endocrine Endocrinology: Denies cold intolerance Hematologic/Lymphatic Hematologic/Lymphatic: Denies easy bleeding Allergic/Immunologic Allergic/Immunologic ED: Denies mouth swelling or tongue swelling EXAM Physical Exam Narrative Exam Narrative: 31-year-old male no acute distress vital signs stable afebrile. Pulse ox high percent on room air no signs hypoxia. H EENT exam unremarkable. Neck nontender. Lungs clear to auscultation bilaterally. Heart regular rhythm rate about 105 no murmur. Chest were nontender. Abdomen soft nontender. Moving all 4 extremities. Calves are nontender without edema or cords. Equal symmetrical radial pulses. Back nontender. Neurologically is awake and alert. Const Vital Signs: 03/21/22 12:09 03/21/22 12:22 03/21/22 14:01 Temperature 97.3 F L Temperature Source Temporal Pulse Rate 112 H 88 Respiratory Rate 14 20 H Blood Pressure 123/99 H 121/98 H Blood Pressure Mean 107 105 Pulse Ox 100 100 Oxygen Delivery Method Room Air Room Air Room Air Positive well nourished and well developed; Negative for obese, cachectic, contractures or unkempt General Appearance ED: well developed and NAD; Negative for unkempt, cachectic, contractures or pallor Nutritional Appearance: Negative for cachectic or obese HEENT Reports moist mucous membranes; Denies dry mucous membranes normocephalic and atraumatic; Negative for trauma or tenderness Mouth ED: No dry mucous membranes Mouth: No dry mucous membranes Eyes PERRL and EOMs intact bilaterally General Eye ED: Negative for pale conjunctiva or scleral icterus Neck no lymphadenopathy, supple and no JVD General: Negative for tenderness Chest Wall inspection of chest normal and palpation of chest normal Chest: Negative for tenderness Resp clear to auscultation bilaterally Effort and Inspection: respiratory distress Auscultation: Negative for rales, rhonchi, wheezes or diminished lung sounds Cardio regular rate, regular rhythm, S1 normal heart sound, S2 normal heart sound and no murmurs Peripheral Pulses: pulses 2+ throughout GI normal to inspection, nondistended, normoactive bowel sounds, soft to palpation, non-tender, non-distended and no masses Auscultation: Negative for hyperactive bowel sounds Back/Spine no CVA tenderness and no thoracic nor lumbar tenderness General Back: Negative for CVA tenderness Cervical Spine: Negative for cervical spine tenderness Extremity normal to inspection General Extremety ED: Negative for edema or pulses abnormal General Extremity: Negative for edema or pulses abnormal Neuro oriented x3, CN's II-XII intact bilaterally and no sensory deficits noted Sensorium / Orientation: awake, alert, oriented to person, oriented to place and oriented to time; Negative for confused, lethargic or stuporous Motor Exam: strength 5/5 throughout Psych mental status grossly normal Appearance: Negative for unkempt Attitude: No agitated Mood & Affect: anxious; Negative for depressed or tearful Skin no rashes or lesions noted and no wounds General Skin Exam: Negative for jaundice or pallor Rashes: No rashes noted Trauma: Negative for abrasion Heart Score History: Slightly/Non-Suspicious ECG: Normal Age: </= 45 years Risk Factors: No Risk Factors Troponin: </= Normal Limit Score: 0 MDM MDM MDM Narrative Medical decision making narrative: 31-year-old male with atypical, nonexertional, nonreproducible chest pain. Normal exam. Will undergo cardiac work-up. Repeat exam patient doing well at 2:25 PM. Exam normal. We went over his x-ray and all his test results. He did inform me multiple family members currently have COVID. He has no symptoms. Explained him I did not think his symptoms were from COVID but I was happy to send a COVID test at the 1 diet done and he deferred. He knew it would not change our treatment or management of his symptoms. He will be discharged home and follow-up with a local primary care physician. Lab Data Attestation: I reviewed the patient's lab results. Lab results narrative: CBC normal white count of 6.6. H&H of 15.1 and 44. Electrolytes gap of 6 normal BUN and creatinine. Glucose 81. Troponin normal at 6. Labs: Laboratory Results - last 24 hr 03/21/22 03/21/22 12:50 12:50 WBC 6.6 RBC 4.90 Hgb 15.1 Hct 44.7 MCV 91.2 MCH 30.8 MCHC 33.8 RDW Std Deviation 43.7 RDW Coeff of Carlyn 13.1 Plt Count 262 MPV 8.3 Immature Gran % (Auto) 0.300 Neut % (Auto) 49.8 Lymph % (Auto) 34.6 Ingham % (Auto) 11.6 H Eos % (Auto) 3.2 Baso % (Auto) 0.5 Absolute Neuts (auto) 3.3 Absolute Lymphs (auto) 2.30 Nucleated RBC % 0 Sodium 139 Potassium 3.7 Chloride 105 Carbon Dioxide 28.0 Anion Gap 6 BUN 7 Creatinine 0.85 Estim Creat Clear Calc 108.75 Est GFR (MDRD) Af Amer 133 Est GFR (MDRD) Non-Af 110 BUN/Creatinine Ratio 8.2 L Glucose 81 Calcium 8.9 Troponin I High Sens 6 Radiography Chest X-Ray - ED: 1 View, Read by ED Physician, Read by Radiologist, Heart, Lungs, Mediastinum, Bony Structures and No Acute Disease Diagnostic Testing: Clinical Impression(s) from Imaging Studies Chest X-Ray 03/21/22 13:25 IMPRESSION: Normal x-ray examination of the chest. Electronically Signed: Damon Schumacher MD at 13:42 EDT , Chest x-ray,, portable, single view interpreted by myself and radiologist shows no acute abnormality. Normal. Rhythm Strip Rhythm Strip: Sinus Rhythm Rate: 98 Ectopy: None EKG Initial EKG: Attestation: I personally reviewed and interpreted this EKG as follows: Interpretation: Sinus Rhythm and No Acute Injury Pattern Comments: Normal sinus rhythm rate 98 no acute signs of WI or ischemia. No S1Q3T3. Discharge Plan Triage Chief Complaint: Chest Pain ED Provider: Yohannes Simon Dx/Rx/DC Orders Clinical Impression: Chest pain Instructions: ED Chest Pain, Uncertain Cause Prescriptions: No Action duloxetine 30 mg capsule,delayed release(DR/EC) 60 mg PO DAILY oxycodone-acetaminophen [oxycodone-acetaminophen] 5-325 mg tablet 1 tab PO Q6H PRN PRN (Reason: pain) 5 Days Qty: 20 0RF albuterol 90 mcg/actuation Aerosol 90 mcg INHALATION Q4H PRN PRN (Reason: Shortness Of Breath) omeprazole 20 mg Tablet,Delayed Release (Dr/Ec) 20 mg PO DAILY potassium chloride 20 mEq tablet extended release 20 meq PO BID Qty: 6 0RF Primary Care Provider: Care Physician,No Primary Referrals: Ronni Rosas MD [Med Staff - Senior Risk Analyst] - 3-5 Days if not improving Care Physician,No Primary [Primary Care Provider] - Activity Restrictions/Additional Instructions: Tylenol and/or Motrin for pain. All your work-up today was normal. Follow-up with primary care physician if not improving or return if worse. Disposition Disposition: Home, Self Care
[2022-03-21 13:00] LABS: Absolute Neutrophil Count 3.3 X10^3/uL (2.0-7.7); Basophil# 0.03 X10^3/uL; Basophil% 0.5 % (0-1); Eosinophil# 0.21 X10^3/uL; Eosinophils% 3.2 % (0-5); Hematocrit 44.7 % (40-54); Hemoglobin 15.1 g/dL (13.0-16.5); Lymphocyte % 34.6 % (19-41); Mean Corp Hgb Conc 33.8 g/dL (32-36); Mean Corpuscular Hgb 30.8 pg (27.0-32.0); Mean Corpuscular Volume 91.2 fL (80-94); Mean Platelet Vol. 8.3 fl (6.2-12.0); Monocyte# 0.77 X10^3/uL; Monocyte% 11.6 % (0-10); NRBC Flagged by Analyzer 0 % (0-5); Neutrophil # 3.31 X10^3/uL (2.7-7.7); Neutrophil % 49.8 % (47-70); Platelet Count 262 K/mm3 (150-450); RBC Distribution Width CV 13.1 % (11.6-14.6); RBC Distribution Width SD 43.7 fl (35.1-43.9); White Blood Count 6.6 K/mm3 (4.4-11.0)
[2022-03-21 13:16] LABS: Anion Gap 6 (5-15); BUN 7 mg/dL (7-18); BUN/Creat Ratio 8.2 RATIO (10-20); Calcium,Total 8.9 mg/dL (8.5-10.1); Chloride 105 mmol/L (98-107); Creatinine, Serum 0.85 mg/dL (0.70-1.30); EST Glomerular Filtration Rate 110 mL/min (>60); Est Glom Filt Rate - Afr Amer 133 mL/min (>60); Estimated Creatinine Clearance 108.75 ml/min; Glucose 81 mg/dL (74-106); Potassium 3.7 mmol/L (3.5-5.1); Sodium Level 139 mmol/L (136-145); Troponin-I HS 6 pg/mL (3.0-78.0)
--- NOTE | 2022-03-21 13:25 | RAD_ITS ---
STUDY: X-RAY CHEST REASON FOR EXAM: Male, 31 years old. Chest pain. Shortness of breath and weakness of both lower extremities. TECHNIQUE: Single AP portable view of the chest. COMPARISON: Comparison is made with prior study dated 01/19/2022. FINDINGS: EKG electrodes are seen. The lungs are clear and expanded. There is no demonstrated pleural abnormality. Normal size heart. Normal mediastinum and june. Normal visualized pulmonary arteries. Normal visualized aortic arch and descending thoracic aorta. Normal visualized thoracic spine. Normal visualized ribs, clavicles, and shoulders. There is no demonstrated abnormality of the visualized soft tissue structures of the upper abdomen. RAD/Chest 1 View (Portable) IMPRESSION: Normal x-ray examination of the chest. Electronically Signed: Damon Schumacher MD at 13:42 EDT ,
[2022-03-21 14:01] VITALS: BP 121/98; PULSE 88; RESP 20; O2SAT 100
[2022-03-21 14:46] VITALS: BP 121/98; PULSE 82; RESP 16; O2SAT 99
== END 2022-03-21 14:46 | disposition home or self-care (01) ==
PROVIDERS: Emergency Provider Emergency Medicine; Visit Provider Emergency Medicine
DX: R07.9 Chest pain, unspecified (principal); F17.210 Nicotine dependence, cigarettes, uncomplicated; I10 Essential (primary) hypertension; Z87.442 Personal history of urinary calculi; Q61.3 Polycystic kidney, unspecified; J45.909 Unspecified asthma, uncomplicated; K21.9 Gastro-esophageal reflux disease without esophagitis; F32.A Depression, unspecified; Z85.038 Personal history of other malignant neoplasm of large intestine
CPT/HCPCS: 71045; 80048; 84484; 85025; 93005; 99283

== ENCOUNTER 2022-05-20 19:47 | Emergency (ER) | payer MEDICAID, SELFPAY ==
[2022-05-20 19:48] VITALS: BP 127/93; PULSE 90; RESP 18; TEMP 36.6; O2SAT 100; BMI 21.0
--- NOTE | 2022-05-20 20:50 | EDS_ITS ---
HPI HPI - GI History of Present Illness Chief Complaint: Abd Pain Narrative Narrative: 31-year-old male presenting with crampy abdominal pain. He has intermittent nausea and vomiting since yesterday. He felt like he was coming down with something because he had body aches and chills. He is not had a fever. He has been taking Tylenol and ibuprofen. Yesterday he reports eating chicken soup and today he had chicken and dumplings. He vomited today. He has a history of kidney stones but states this is not similar. He does believe he has been constipated recently but has been having some bowel movements. No urinary complaints. He does state his stomach feels bloated and he has trouble taking deep breaths because of his bloating. He does not have chest pain. No cough. [facility] Medical History Acid reflux Asthma Cancer of intestinal tract Depression Hypertension Polycystic kidney disease Home Medications duloxetine 30 mg capsule,delayed release 60 mg PO DAILY 01/17/22 [History Last Taken Unknown] oxycodone-acetaminophen 5 mg-325 mg tablet 1 tab PO Q6H PRN PRN pain 5 days #20 TABLETS 01/18/22 [Rx Last Taken Unknown] albuterol 90 mcg/actuation aerosol inhaler 90 mcg inhalation Q4H PRN PRN Shortness Of Breath 01/19/22 [History Last Taken Unknown] omeprazole 20 mg tablet,delayed release 20 mg PO DAILY 01/19/22 [History Last Taken Unknown] potassium chloride 20 mEq tablet,extended release 20 meq PO BID #6 tabs 01/19/22 [Rx Last Taken Unknown] ondansetron 4 mg disintegrating tablet 4 mg PO Q8H PRN nausea and vomiting #10 tabs 05/20/22 [Rx Last Taken Unknown] polyethylene glycol 3350 17 gram/dose oral powder (Miralax) 17 g PO DAILY PRN constipation #119 grams 05/20/22 [Rx Last Taken Unknown] Allergy/AdvReac Type Severity Reaction Status Date / Time Antihistamines - Alkylamine AdvReac Other Verified 03/21/22 12:08 Antihistamines - Ethanolamine AdvReac Other Verified 03/21/22 12:08 Antihistamines - AdvReac Other Verified 03/21/22 12:08 Ethylenediamine Antihistamines - Piperazine AdvReac Other Verified 03/21/22 12:08 Antihistamines - Piperidine AdvReac Other Verified 03/21/22 12:08 shellfish derived AdvReac Abd Verified 03/21/22 12:08 cramps/diarrhea Social History Smoking Status: Current every day smoker tobacco type: cigarettes substance use type: does not use ROS ROS ED Constitutional Constitutional ED: Denies chills or fever(s) ENT ENT ED: Denies rhinorrhea or sore throat Cardiovascular Cardiovascular: Denies chest pain or palpitations Respiratory/Chest Respiratory/Chest: Reports dyspnea; Denies cough Gastrointestinal Gastrointestinal: Reports abdominal pain Genitourinary Genitourinary ED: Denies dysuria or hematuria Musculoskeletal Musculoskeletal: Denies arthralgias or back pain Integumentary Denies abscess Neurologic Neurologic: Denies headache(s) Psychiatric Psychiatric: Denies anxiety or depression Endocrine Endocrinology: Denies polydipsia or polyphagia EXAM Physical Exam Const Vital Signs: 05/20/22 19:48 05/20/22 19:48 Temperature 97.9 F 97.9 F Temperature Source Temporal Temporal Pulse Rate 90 90 Respiratory Rate 18 18 Blood Pressure 127/93 H 127/93 H Blood Pressure Mean 104 104 Pulse Ox 100 100 Oxygen Delivery Method Room Air Room Air Positive well nourished General Appearance ED: NAD HEENT Reports TM's clear and moist mucous membranes normocephalic and atraumatic Tympanic Membrane ED: Yes TM's clear Eyes PERRL and EOMs intact bilaterally Resp normal respiratory effort and clear to auscultation bilaterally Auscultation: Negative for rales, rhonchi or wheezes Cardio regular rate and regular rhythm GI non-tender, non-distended and no masses Palpation: soft Back/Spine no CVA tenderness Neuro CN's II-XII intact bilaterally, moves all extremities and no sensory deficits noted Sensorium / Orientation: alert Motor Exam: strength 5/5 throughout Psych mental status grossly normal and thought process normal MDM MDM MDM Narrative Medical decision making narrative: Patient's lungs are clear to auscultation. Heart regular rate and rhythm. Vital signs within normal limits. Benign abdominal exam. Because he thinks he is coming down with something I will test him for COVID. He is given Zofran. I will obtain a an acute abdominal series. Hospital acute abdominal series on my interpretation does not show any obstructive process. Radiologist interprets this and agrees. Patient feeling improved after Zofran. Since the patient is symptomatically having constipation as well as nausea vomiting, I will place him on MiraLAX. He is given Zofran for home. Return precautions discussed. Impression: 1. Nausea/vomiting 2. Abdominal pain 3. Constipation Lab Data Attestation: I reviewed the patient's lab results. Radiography Diagnostic Testing: Clinical Impression(s) from Imaging Studies Acute Abdomen Series 05/20/22 21:10 IMPRESSION: Negative chest and abdominal series. Electronically Signed: Abel Hensley DO at 21:30 EDT Reading Location ID and State: [address] [place] [address] Tel [phone], Service support , Discharge Plan Triage Chief Complaint: Abd Pain ED Provider: Pal Wilson Dx/Rx/DC Orders Instructions: ED Constipation (Adult), ED Vomiting (Adult), ED Abdominal Pain Unkn Cause Male... Prescriptions: New polyethylene glycol 3350 [Miralax] 17 gram/dose powder 17 g PO DAILY PRN (Reason: constipation) Qty: 119 0RF ondansetron 4 mg tablet,disintegrating 4 mg PO Q8H PRN (Reason: nausea and vomiting) Qty: 10 0RF No Action duloxetine 30 mg capsule,delayed release(DR/EC) 60 mg PO DAILY oxycodone-acetaminophen [oxycodone-acetaminophen] 5-325 mg tablet 1 tab PO Q6H PRN PRN (Reason: pain) 5 Days Qty: 20 0RF albuterol 90 mcg/actuation Aerosol 90 mcg INHALATION Q4H PRN PRN (Reason: Shortness Of Breath) omeprazole 20 mg Tablet,Delayed Release (Dr/Ec) 20 mg PO DAILY potassium chloride 20 mEq tablet extended release 20 meq PO BID Qty: 6 0RF Primary Care Provider: Care Physician,No Primary Referrals: Care Physician,No Primary [Primary Care Provider] -
[2022-05-20] MEDS: Ondansetron ODT 4 MG Tablet PO (20:57)
--- NOTE | 2022-05-20 21:10 | RAD_ITS ---
INDICATION: Abdominal pain. EXAMINATION/TECHNIQUE: X-RAY - AP view of the chest as well as upright and supine views of the abdomen. COMPARISON: Chest, March 21, 2022. CT of the abdomen pelvis, January 17, 2022. FINDINGS: --Chest: LINES/DEVICES: None. LUNGS: No consolidation, edema or effusion. No pneumothorax. MEDIASTINUM AND CARDIOVASCULAR STRUCTURES: Cardiac silhouette not enlarged. Central airways and mediastinal contour are unremarkable. BONES AND SOFT TISSUES: No acute findings. --Abdomen: BOWEL GAS PATTERN: Non-obstructive. No bowel or stomach distention. FREE AIR: None visualized. ORGANOMEGALY: Not seen. CALCIFICATIONS: No abnormal calcifications observed. BONES AND SOFT TISSUES: No acute findings. RAD/Acute Abdomen Inc Chest IMPRESSION: Negative chest and abdominal series. Electronically Signed: Abel Hensley DO at 21:30 EDT ,
[2022-05-20 22:29] VITALS: BP 130/78; PULSE 72; RESP 16; O2SAT 100
== END 2022-05-20 22:34 | disposition home or self-care (01) ==
PROVIDERS: Emergency Provider Student in an Organized Health Care Education/Training Program; Visit Provider Student in an Organized Health Care Education/Training Program
DX: K59.00 Constipation, unspecified (principal); F17.210 Nicotine dependence, cigarettes, uncomplicated
CPT/HCPCS: 74022; 87811; 99283

== ENCOUNTER 2022-09-02 21:20 | Emergency (ER) | payer MEDICAID, SELFPAY ==
[2022-09-02 21:21] VITALS: BP 157/104; PULSE 123; RESP 16; TEMP 36.8; O2SAT 99; BMI 19.0
--- NOTE | 2022-09-02 23:18 | US_ITS ---
INDICATION: left testicular pain and swelling EXAMINATION: Ultrasound US Scrotum (Contents) TECHNIQUE: Realtime ultrasound of the testicles was performed with grayscale, Color Doppler and spectral Doppler analysis. COMPARISON: None. FINDINGS: RIGHT: TESTIS: 5.6 x 3.3 x 2.5 cm. Normal in size and echotexture, without focal lesion. COLOR DOPPLER: Normal arterial flow present in the testicle with monophasic waveforms. EPIDIDYMIS: There is a right epididymal cyst measures 10 mm in diameter. [Normal color Doppler flow pattern in the epididymis. HYDROCELE: None. VARICOCELE: None. LEFT: TESTIS: 5.4 x 3.4 x 2.1 cm. Normal in size and echotexture, without focal lesion. COLOR DOPPLER: Normal arterial flow present in the testicle with monophasic waveforms. EPIDIDYMIS: Normal in size and echotexture, without focal lesion. [Normal color Doppler flow pattern in the epididymis. HYDROCELE: None. VARICOCELE: There is small left varicocele. US/Testicular with Arterial Flow IMPRESSION: There is a right epididymal cyst measures 10 mm in diameter. Electronically Signed: Domenic Olson MD at 0:49 EST ,
--- NOTE | 2022-09-02 23:33 | EKG12_ITS ---
Test Reason : CP Blood Pressure : / mmHG Vent. Rate : 105 BPM Atrial Rate : 105 BPM P-R Int : 112 ms QRS Dur : 084 ms QT Int : 314 ms P-R-T Axes : -22 -18 -10 degrees QTc Int : 415 ms Sinus tachycardia Minimal voltage criteria for LVH, may be normal variant ( R in aVL ) Borderline ECG Confirmed by ABBEY TATUM, MEAGHAN ([id number]), medical editor RUDY RODRIGUEZ ([id number]) on 09/03/2022 10:24:44 AM Referred By: Confirmed By:MEAGHAN POTTER MD
[2022-09-02 23:47] LABS: Absolute Lymphocyte Count 1.33 X10^3/uL (0.83-4.51); Absolute Neutrophil Count 4.1 X10^3/uL (2.0-7.7); Basophil# 0.04 X10^3/uL; Basophil% 0.6 % (0-1); Eosinophil# 0.01 X10^3/uL; Eosinophils% 0.1 % (0-5); Hematocrit 38.6 % (40-54); Hemoglobin 12.7 g/dL (13.0-16.5); Lymphocyte # 1.33 X10^3/ul (0.83-4.51); Lymphocyte % 19.9 % (19-41); Mean Corp Hgb Conc 32.9 g/dL (32-36); Mean Corpuscular Hgb 30.6 pg (27.0-32.0); Mean Platelet Vol. 8.9 fl (6.2-12.0); Monocyte# 1.13 X10^3/uL; Monocyte% 16.9 % (0-10); NRBC Flagged by Analyzer 0 % (0-5); Neutrophil # 4.11 X10^3/uL (2.7-7.7); Neutrophil % 61.8 % (47-70); Platelet Count 200 K/mm3 (150-450); RBC Distribution Width CV 13.4 % (11.6-14.6); RBC Distribution Width SD 45.9 fl (35.1-43.9); Red Blood Count 4.15 M/mm3 (4.6-6.2); White Blood Count 6.7 K/mm3 (4.4-11.0)
[2022-09-02 23:49] LABS: Mucous, Urine 0 SEEN /hpf (<or=2+); Red Blood Cells-Urine 0 SEEN /hpf (0-5); Squamous Epithelial Cells - UA 0 SEEN /hpf (0-5); White Blood Cells 0 SEEN /hpf (0-5)
[2022-09-02 23:50] LABS: Color, Urine Yellow (Yellow); Glucose, Dipstick Normal (Normal); Ketone-Dipstick Negative (Negative); Leukocyte Esterase-Dipstick Negative /ul (Negative); Nitrite-Dipstick Negative (Negative); Occult Blood-Urine Negative /ul (Negative); Protein-Dipstick Negative (Negative); Specific Gravity, Urine 1.015 (1.002-1.030); Urine Bilirubin Dipstick Negative (Negative); Urine Clarity Sl. Cloudy (Clear); Urine Urobilinogen Normal (Normal)
[2022-09-02 23:57] LABS: Amorphous Sediment 2+; Bacteria 2+ /hpf (None Seen)
--- NOTE | 2022-09-03 | RAD_ITS ---
INDICATION: chest pain EXAMINATION/TECHNIQUE: X-RAY - XR Chest 2 Views COMPARISON: None. FINDINGS: LINES/DEVICES: None. LUNGS: No consolidation, edema or effusion. No pneumothorax. MEDIASTINUM AND CARDIOVASCULAR STRUCTURES: Cardiac silhouette not enlarged. Central airways and mediastinal contour are unremarkable. BONES AND SOFT TISSUES: Unremarkable. RAD/Chest PA and Lateral IMPRESSION: No radiographic evidence of acute cardiopulmonary disease. Electronically Signed: Domenic Olson MD at 0:51 EST ,
[2022-09-03 00:05] LABS: ALB/GLOB Ratio 1.3 RATIO (0.9-2.4); AST(SGOT) 16 U/L (15-37); Alanine Aminotransfer ALT/SGPT 23 U/L (16-61); Albumin, Serum 3.7 g/dL (3.2-5.0); Alkaline Phosphatase 72 U/L (45-117); Anion Gap 7 (5-15); BUN 9 mg/dL (7-18); CPK Total, Creatine Kinase 104 U/L (39-308); Calcium,Total 8.6 mg/dL (8.5-10.1); Chloride 109 mmol/L (98-107); Creatinine, Serum 0.69 mg/dL (0.70-1.30); EST Glomerular Filtration Rate 139 mL/min (>60); Est Glom Filt Rate - Afr Amer 168 mL/min (>60); Estimated Creatinine Clearance 120.98 ml/min; Globulin 2.8 g/dL (2.2-4.2); Glucose 87 mg/dL (74-106); Potassium 3.7 mmol/L (3.5-5.1); Protein, Total 6.5 g/dL (6.4-8.2); Sodium Level 141 mmol/L (136-145); Troponin-I HS 3 pg/mL (3.0-78.0)
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
[2022-09-03 00:32] LABS: D-Dimer Quantitative (DVT/PE) < 0.27 FEU/ug/m (0.27-0.49)
[2022-09-03] MEDS: Acetaminophen 325 MG Tablet 650 MG PO (00:39)
[2022-09-03] MEDS: 0.9% Normal Saline 1,000 ML 999 ML IV (00:39)
[2022-09-03 00:41] VITALS: PULSE 115; RESP 18; O2SAT 98
[2022-09-03 01:33] LABS: Amphetamine Urine VISTA NEGATIVE (<1000 ng/mL); Barbiturate Urine VISTA NEGATIVE (< 200 ng/mL); Benzodiazepine Urine VISTA NEGATIVE (< 200 ng/mL); Cocaine Urine VISTA NEGATIVE (< 300 ng/mL); Ecstacy Urine VISTA NEGATIVE (< 500 ng/mL); Methadone Urine VISTA NEGATIVE (< 300 ng/mL); PCP Urine VISTA NEGATIVE (< 25 ng/mL); THC Urine VISTA NEGATIVE (< 50 ng/mL); Vista UDS pH Range 7
[2022-09-03 02:07] LABS: Chlamydia Trachomatis by PCR Negative (Negative); Neisserai gonorrhoeae by PCR Positive (Negative); Probe Check PASS
[2022-09-03 02:35] LABS: HIV - WCH Preliminary Reactive (Nonreactive); Syphilis Antibodies Non-reactive
[2022-09-03] MEDS: Ceftriaxone 500 MG Vial IM (02:42)
[2022-09-03 03:52] VITALS: BP 126/91; PULSE 85; RESP 18; O2SAT 100
== END 2022-09-03 03:52 | disposition home or self-care (01) ==
PROVIDERS: Emergency Provider Emergency Medicine; Visit Provider Emergency Medicine
DX: T76.21XA Adult sexual abuse, suspected, initial encounter (principal); Z21 Asymptomatic human immunodeficiency virus [HIV] infection status; R53.81 Other malaise; F17.210 Nicotine dependence, cigarettes, uncomplicated; Z11.3 Encounter for screening for infections with a predominantly sexual mode of transmission; N50.89 Other specified disorders of the male genital organs; M79.604 Pain in right leg; R51.9 Headache, unspecified; I10 Essential (primary) hypertension; R00.0 Tachycardia, unspecified; Z87.448 Personal history of other diseases of urinary system; R07.9 Chest pain, unspecified; K21.9 Gastro-esophageal reflux disease without esophagitis; F32.A Depression, unspecified; Z79.899 Other long term (current) drug therapy; J45.909 Unspecified asthma, uncomplicated; R68.83 Chills (without fever); R61 Generalized hyperhidrosis; R06.00 Dyspnea, unspecified; R30.0 Dysuria; A54.9 Gonococcal infection, unspecified; R53.83 Other fatigue
CPT/HCPCS: 71046; 76870; 80053; 80307; 81001; 82550; 84484; 85025; 85379; 86703; 86780; 87428; 87491; 87591; 93005; 93976; 96372; 99284; J7030; A4216

== ENCOUNTER → 2022-09-20 | Outpatient (CLI) | payer MEDICAID, SELFPAY ==
[2022-09-20 12:35] LABS: Bacteria 0 SEEN /hpf (None Seen); Mucous, Urine 0 SEEN /hpf (<or=2+); Red Blood Cells-Urine 0 SEEN /hpf (0-5); Squamous Epithelial Cells - UA 0 SEEN /hpf (0-5); White Blood Cells 0 SEEN /hpf (0-5)
[2022-09-20 12:59] LABS: Hematocrit 47.2 % (40-54); Hemoglobin 15.8 g/dL (13.0-16.5); Mean Corp Hgb Conc 33.5 g/dL (32-36); Mean Corpuscular Hgb 30.9 pg (27.0-32.0); Mean Corpuscular Volume 92.4 fL (80-94); Mean Platelet Vol. 8.4 fl (6.2-12.0); Platelet Count 250 K/mm3 (150-450); RBC Distribution Width CV 13.5 % (11.6-14.6); Red Blood Count 5.11 M/mm3 (4.6-6.2); White Blood Count 5.9 K/mm3 (4.4-11.0)
[2022-09-20 13:09] LABS: Color, Urine Yellow (Yellow); Glucose, Dipstick Normal (Normal); Ketone-Dipstick Negative (Negative); Leukocyte Esterase-Dipstick Negative /ul (Negative); Nitrite-Dipstick Negative (Negative); Occult Blood-Urine Negative /ul (Negative); Protein-Dipstick Negative (Negative); Urine Bilirubin Dipstick Negative (Negative); Urine Clarity Clear (Clear); Urine Urobilinogen Normal (Normal)
[2022-09-20 13:29] LABS: Anion Gap 6 (5-15); BUN 10 mg/dL (7-18); BUN/Creat Ratio 12.4 RATIO (10-20); Calcium,Total 9.3 mg/dL (8.5-10.1); Chloride 104 mmol/L (98-107); Creatinine, Serum 0.81 mg/dL (0.70-1.30); EST Glomerular Filtration Rate 116 mL/min (>60); Est Glom Filt Rate - Afr Amer 141 mL/min (>60); Glucose 90 mg/dL (74-106); Sodium Level 140 mmol/L (136-145)
[2022-09-20 14:04] LABS: Hepatitis B Surface Antibody Non-Reactive; Hepatitis B Surface Antigen Non-Reactive (Nonreactive); Hepatitis C Antibody Non-Reactive (Nonreactive)
[2022-09-20 15:26] LABS: Chlamydia Trachomatis by PCR Negative (Negative); Neisserai gonorrhoeae by PCR Negative (Negative); Probe Check PASS; Sample Adequacy Control PASS; Specimen Processing Control PASS; Trichomonas Vag DNA by PCR Negative (Negative)
[2022-09-23 15:08] LABS: Absolute CD4 Helper 562 /uL (359-1519); Basophils (Absolute) 0.1 x10E3/uL (0.0-0.2); Eosinophils 1 % (Not Estab.); Eosinophils (Absolute) 0.1 x10E3/uL (0.0-0.4); Hematocrit 48.2 % (37.5-51.0); Hemoglobin 15.8 g/dL (13.0-17.7); Immature Granulocytes 0 % (Not Estab.); Immature Granulocytes Absolute 0 x10E3/uL (0.0-0.1); Lymphs 34 % (Not Estab.); Lymphs (Absolute) 1.9 x10E3/uL (0.7-3.1); MCH 30.8 pg (26.6-33.0); MCHC 32.8 g/dL (31.5-35.7); MCV 94 fL (79-97); Monocytes 10 % (Not Estab.); Monocytes (Absolute) 0.6 x10E3/uL (0.1-0.9); Neutrophils 54 % (Not Estab.); Neutrophils (Absolute) 3.1 x10E3/uL (1.4-7.0); Percent % CD4 Pos. Lymph. 29.6 % (30.8-58.5); Platelets 274 x10E3/uL (150-450); RBC Count 5.13 x10E6/uL (4.14-5.80); RDW 13.1 % (11.6-15.4); WBC Count 5.8 x10E3/uL (3.4-10.8)
[2022-09-23 19:02] LABS: Hepatitis A AB, Total Negative (Negative)
[2022-09-24 22:21] LABS: HIV-1 RNA by PCR, Quant. 70 copies/mL (.); LOG10 HIV-1 RNA 1.845 (.)
== END | disposition home or self-care (01) ==
PROVIDERS: Referring Provider Internal Medicine Infectious Disease; Visit Provider Internal Medicine Infectious Disease
DX: B20 Human immunodeficiency virus [HIV] disease (principal)
CPT/HCPCS: 36415; 80048; 81001; 85027; 86361; 86706; 86708; 86803; 87086; 87340; 87491; 87536; 87591; 87661

== ENCOUNTER 2022-10-16 20:48 | Emergency (ER) | payer MEDICAID, SELFPAY ==
[2022-10-16 20:51] VITALS: BP 153/101; PULSE 108; RESP 16; TEMP 36.7; O2SAT 100; BMI 20.2
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
[2022-10-16 21:31] LABS: Absolute Lymphocyte Count 2.69 X10^3/uL (0.83-4.51); Absolute Neutrophil Count 3.7 X10^3/uL (2.0-7.7); Basophil# 0.05 X10^3/uL; Basophil% 0.7 % (0-1); Eosinophil# 0.19 X10^3/uL; Eosinophils% 2.6 % (0-5); Hematocrit 45.1 % (40-54); Hemoglobin 15.2 g/dL (13.0-16.5); Lymphocyte # 2.69 X10^3/ul (0.83-4.51); Lymphocyte % 36.1 % (19-41); Mean Corp Hgb Conc 33.7 g/dL (32-36); Mean Corpuscular Hgb 31.1 pg (27.0-32.0); Mean Corpuscular Volume 92.2 fL (80-94); Mean Platelet Vol. 8.5 fl (6.2-12.0); Monocyte# 0.83 X10^3/uL; Monocyte% 11.1 % (0-10); NRBC Flagged by Analyzer 0 % (0-5); Neutrophil # 3.68 X10^3/uL (2.7-7.7); Neutrophil % 49.4 % (47-70); Platelet Count 310 K/mm3 (150-450); RBC Distribution Width CV 13.8 % (11.6-14.6); RBC Distribution Width SD 46.9 fl (35.1-43.9); Red Blood Count 4.89 M/mm3 (4.6-6.2); White Blood Count 7.5 K/mm3 (4.4-11.0)
[2022-10-16 21:42] LABS: Anion Gap 5 (5-15); BUN 9 mg/dL (7-18); BUN/Creat Ratio 9.6 RATIO (10-20); Chloride 107 mmol/L (98-107); Creatinine, Serum 0.94 mg/dL (0.70-1.30); EST Glomerular Filtration Rate 97 mL/min (>60); Est Glom Filt Rate - Afr Amer 118 mL/min (>60); Estimated Creatinine Clearance 94.79 ml/min; Glucose 105 mg/dL (74-106); Potassium 3.9 mmol/L (3.5-5.1); Sodium Level 141 mmol/L (136-145)
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
[2022-10-16] MEDS: Doxycycline 100 MG CAPSULE PO (23:36)
[2022-10-17 10:00] VITALS: RESP 16
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
== END 2022-10-17 12:09 | disposition home or self-care (01) ==
PROVIDERS: Emergency Provider Emergency Medicine; Visit Provider Emergency Medicine
DX: L03.90 Cellulitis, unspecified (principal); Z21 Asymptomatic human immunodeficiency virus [HIV] infection status; Z59.00 Homelessness unspecified; I10 Essential (primary) hypertension; R63.4 Abnormal weight loss; L02.91 Cutaneous abscess, unspecified; K21.9 Gastro-esophageal reflux disease without esophagitis; Z79.899 Other long term (current) drug therapy; F32.A Depression, unspecified; J45.909 Unspecified asthma, uncomplicated; F17.210 Nicotine dependence, cigarettes, uncomplicated
CPT/HCPCS: 80048; 85025; 99284; A4216

== ENCOUNTER 2022-11-25 17:00 | Emergency (ER) | payer MEDICAID, SELFPAY ==
[2022-11-25 17:02] VITALS: BP 131/96; PULSE 88; RESP 16; TEMP 36.3; O2SAT 100; BMI 20.1
--- NOTE | 2022-11-25 18:45 | EKG12_ITS ---
Test Reason : DYSRHYTHMIA Blood Pressure : / mmHG Vent. Rate : 080 BPM Atrial Rate : 080 BPM P-R Int : 124 ms QRS Dur : 088 ms QT Int : 368 ms P-R-T Axes : 069 080 072 degrees QTc Int : 424 ms Normal sinus rhythm Normal ECG Confirmed by JEFFERSON TATUM, JOSE ([id number]), graphics editor RUDY RODRIGUEZ ([id number]) on 11/26/2022 1:11:56 PM Referred By: ASPEN Confirmed By:ELDA PAULINO MD
[2022-11-25 19:07] LABS: Absolute Lymphocyte Count 2.95 X10^3/uL (0.83-4.51); Absolute Neutrophil Count 4.1 X10^3/uL (2.0-7.7); Basophil# 0.06 X10^3/uL; Basophil% 0.7 % (0-1); Eosinophil# 0.32 X10^3/uL; Eosinophils% 3.8 % (0-5); Hematocrit 40.9 % (40-54); Hemoglobin 14.3 g/dL (13.0-16.5); Lymphocyte # 2.95 X10^3/ul (0.83-4.51); Lymphocyte % 35.2 % (19-41); Mean Corpuscular Hgb 31.8 pg (27.0-32.0); Mean Corpuscular Volume 91.1 fL (80-94); Mean Platelet Vol. 8.3 fl (6.2-12.0); Monocyte# 0.97 X10^3/uL; Monocyte% 11.6 % (0-10); NRBC Flagged by Analyzer 0 % (0-5); Neutrophil # 4.07 X10^3/uL (2.7-7.7); Neutrophil % 48.6 % (47-70); Platelet Count 285 K/mm3 (150-450); RBC Distribution Width CV 14.2 % (11.6-14.6); RBC Distribution Width SD 47.5 fl (35.1-43.9); Red Blood Count 4.49 M/mm3 (4.6-6.2); White Blood Count 8.4 K/mm3 (4.4-11.0)
--- NOTE | 2022-11-25 19:14 | RAD_ITS ---
EXAM: XR RIGHT RIBS AND AP CHEST, 3 OR MORE VIEWS CLINICAL INDICATION: None provided. pain TECHNIQUE: Frontal and oblique views of the right ribs and frontal view of the chest. COMPARISON: 09.03.22 FINDINGS: LUNGS AND PLEURAL SPACES: Unremarkable. No consolidation or edema. No pneumothorax. No effusion. HEART: Unremarkable. Cardiac silhouette not enlarged. MEDIASTINUM: Central airways and mediastinal contour are unremarkable. BONES/JOINTS: Unremarkable. No evidence of displaced rib fractures. RAD/Ribs Uni Min 3V w/PA Chest IMPRESSION: Negative chest and right ribs series. Electronically Signed: Jay Jay Temple MD at 19:42 EDT ,
[2022-11-25 19:20] LABS: Anion Gap 5 (5-15); BUN 12 mg/dL (7-18); Calcium,Total 8.9 mg/dL (8.5-10.1); Chloride 108 mmol/L (98-107); EST Glomerular Filtration Rate 118 mL/min (>60); Est Glom Filt Rate - Afr Amer 142 mL/min (>60); Glucose 91 mg/dL (74-106); Potassium 3.9 mmol/L (3.5-5.1); Sodium Level 141 mmol/L (136-145); Troponin-I HS 3 pg/mL (3.0-78.0)
--- NOTE | 2022-11-25 20:19 | ED.VIS.FALL ---
HPI HPI - Fall History of Present Illness Chief Complaint: Fall Narrative Narrative: 32-year-old male with history of HIV presenting with concern for syncope. He states he fainted a couple of times last week. He did hit his head. He no longer has any dizziness or lightheadedness. He is not really sure why he fainted. He states he fell a couple of days ago and injured his right rib. He states he does not have any bruising. He subjectively has shortness of breath. No fevers or chills. Patient denies visual complaints at this time. Patient states that he was supposed to get lab work done from ID but has been able to do this because he has not had any gas money to get to [facility] to get the labs drawn. He has been taking his medications as prescribed by ID [facility] Medical History Acid reflux Asthma Cancer of intestinal tract Depression Hypertension Polycystic kidney disease Home Medications omeprazole 20 mg tablet,delayed release 20 mg PO DAILY 01/19/22 [History Last Taken Unknown] bictegravir 50 mg-emtricitabine 200 mg-tenofovir alafenam 25 mg tablet (Biktarvy) 1 tab PO DAILY 11/25/22 [History Last Taken Unknown] cholecalciferol (vitamin D3) 25 mcg (1,000 unit) capsule (Vitamin D3) 11/25/22 [History Last Taken Unknown] Allergy/AdvReac Type Severity Reaction Status Date / Time metoclopramide [From Reglan] Allergy Other Verified 10/16/22 20:51 Antihistamines - Alkylamine AdvReac Other Verified 10/16/22 20:51 Antihistamines - Ethanolamine AdvReac Other Verified 10/16/22 20:51 Antihistamines - AdvReac Other Verified 10/16/22 20:51 Ethylenediamine Antihistamines - Piperazine AdvReac Other Verified 10/16/22 20:51 Antihistamines - Piperidine AdvReac Other Verified 10/16/22 20:51 prochlorperazine AdvReac Other Verified 10/16/22 20:51 shellfish derived AdvReac Abd Verified 10/16/22 20:51 cramps/diarrhea Social History household members: none housing: homeless Smoking Status: Current every day smoker tobacco type: cigarettes substance use type: does not use ROS ROS ED ROS Narrative Syncopal event x2 Constitutional Constitutional ED: Denies chills, fever(s) or sweats Eyes Eyes: Denies blurry vision or change in vision ENT ENT ED: Denies ear pain or sore throat Cardiovascular Cardiovascular: Denies chest pain, palpitations or racing heartbeat Respiratory/Chest Respiratory/Chest: Reports dyspnea and other Details: Right rib pain ; Denies sputum Gastrointestinal Gastrointestinal: Denies abdominal pain, constipation, diarrhea, nausea or vomiting Genitourinary Genitourinary ED: Denies dysuria, hematuria or urinary frequency Musculoskeletal Musculoskeletal: Denies arthralgias, myalgias or neck pain Integumentary Denies abscess, Abrasions or rash Neurologic Neurologic: Denies headache(s), paresthesias or weakness Psychiatric Psychiatric: Denies anxiety, depression, suicidal ideation or suicidal thoughts Endocrine Endocrinology: Denies polydipsia or polyuria EXAM Physical Exam Const Vital Signs: 11/25/22 17:02 11/25/22 17:21 11/25/22 18:55 Temperature 97.4 F L Temperature Source Temporal Pulse Rate 88 Pulse Rate [Lying] Pulse Rate [Sitting (for 1 minute prior to obtaining)] Pulse Rate [Standing (for 1 minute prior to obtaining)] Respiratory Rate 16 Respiratory Effort Short of Breath Respiratory Depth Normal Respiratory Pattern Normal Blood Pressure 131/96 H Blood Pressure [Lying] Blood Pressure [Sitting (for 1 minute prior to obtaining)] Blood Pressure [Standing (for 1 minute prior to obtaining)] Blood Pressure Mean 107 Blood Pressure Mean [Lying] Blood Pressure Mean [Sitting (for 1 minute prior to obtaining)] Blood Pressure Mean [Standing (for 1 minute prior to obtaining)] Pulse Ox 100 Oxygen Delivery Method Room Air Room Air Room Air 11/25/22 20:21 11/25/22 20:22 11/25/22 20:33 Temperature Temperature Source Pulse Rate 76 Pulse Rate [Lying] 72 Pulse Rate [Sitting (for 1 minute prior to obtaining)] 72 Pulse Rate [Standing (for 1 minute prior to obtaining)] 79 Respiratory Rate 15 Respiratory Effort Respiratory Depth Respiratory Pattern Blood Pressure 137/82 H Blood Pressure [Lying] 128/81 H Blood Pressure [Sitting (for 1 minute prior to obtaining)] 128/90 H Blood Pressure [Standing (for 1 minute prior to obtaining)] 142/89 H Blood Pressure Mean 100 Blood Pressure Mean [Lying] 96 Blood Pressure Mean [Sitting (for 1 minute prior to obtaining)] 102 Blood Pressure Mean [Standing (for 1 minute prior to obtaining)] 106 Pulse Ox 94 Oxygen Delivery Method Room Air 11/25/22 22:10 Temperature Temperature Source Pulse Rate 70 Pulse Rate [Lying] Pulse Rate [Sitting (for 1 minute prior to obtaining)] Pulse Rate [Standing (for 1 minute prior to obtaining)] Respiratory Rate 16 Respiratory Effort Respiratory Depth Respiratory Pattern Blood Pressure 124/63 H Blood Pressure [Lying] Blood Pressure [Sitting (for 1 minute prior to obtaining)] Blood Pressure [Standing (for 1 minute prior to obtaining)] Blood Pressure Mean Blood Pressure Mean [Lying] Blood Pressure Mean [Sitting (for 1 minute prior to obtaining)] Blood Pressure Mean [Standing (for 1 minute prior to obtaining)] Pulse Ox 97 Oxygen Delivery Method Positive well nourished General Appearance ED: NAD HEENT Reports normocephalic atraumatic Eyes PERRL and EOMs intact bilaterally Neck full ROM Chest Wall Chest Narrative: Tenderness to palpation right lower ribs in the anterior axillary line. No bruising, crepitance. Equal symmetric breath sounds and chest wall rise. Resp normal respiratory effort Auscultation: Negative for rales, rhonchi or wheezes Cardio regular rate and regular rhythm GI non-tender Neuro oriented x3 and CN's II-XII intact bilaterally Sensorium / Orientation: alert Motor Exam: strength 5/5 throughout Psych mental status grossly normal MDM MDM MDM Narrative Medical decision making narrative: Patient states he had 2 episodes of syncope in the last of which he hurt his right rib. He has not any return of the syncope. He is not sure why he had it. He has no focal neurologic deficits or lateralizing signs or I do not believe he needs a CT scan. I did obtain orthostatic vital signs. EKG to assess for arrhythmia., CBC to assess white blood cell count, hemoglobin, platelets. BMP to assess renal function, electrolytes. High-sensitivity troponin and chest x-ray were also obtained. CBC and BMP are unremarkable. High-sensitivity troponin is 3. EKG sinus rhythm with a rate of 80 bpm without sign of ischemia or ectopy. Right rib series on my interpretation shows no acute fracture, pneumonia, other acute cardiopulmonary process. Orthostatic vital signs were negative. At this point I feel the patient is stable for discharge home. He is given return precautions. Impression: 1. Syncope 2. Right rib contusion Lab Data Labs: Laboratory Results - last 24 hr 11/25/22 11/25/22 18:50 18:50 WBC 8.4 RBC 4.49 L Hgb 14.3 Hct 40.9 MCV 91.1 MCH 31.8 MCHC 35.0 RDW Std Deviation 47.5 H RDW Coeff of Carlyn 14.2 Plt Count 285 MPV 8.3 Immature Gran % (Auto) 0.100 Neut % (Auto) 48.6 Lymph % (Auto) 35.2 Desha % (Auto) 11.6 H Eos % (Auto) 3.8 Baso % (Auto) 0.7 Absolute Neuts (auto) 4.1 Absolute Lymphs (auto) 2.95 Nucleated RBC % 0 Sodium 141 Potassium 3.9 Chloride 108 H Carbon Dioxide 28.0 Anion Gap 5 BUN 12 Creatinine 0.80 Estim Creat Clear Calc 110.60 Est GFR (MDRD) Af Amer 142 Est GFR (MDRD) Non-Af 118 BUN/Creatinine Ratio 15.0 Glucose 91 Calcium 8.9 Troponin I High Sens 3 Radiography Diagnostic Testing: Clinical Impression(s) from Imaging Studies Ribs w/Chest X-Ray 11/25/22 19:14 IMPRESSION: Negative chest and right ribs series. Electronically Signed: Jay Jay Temple MD at 19:42 EDT Reading Location ID and State: [address] [place] [address] , Service support , Discharge Plan Triage Chief Complaint: Fall ED Provider: Pal Wilson Dx/Rx/DC Orders Instructions: ED Bruise, Rib, ED Fainting, Uncertain Cause Prescriptions: No Action omeprazole 20 mg Tablet,Delayed Release (Dr/Ec) 20 mg PO DAILY Biktarvy 50-200-25 mg Tablet 1 tab PO DAILY cholecalciferol (vitamin D3) [Vitamin D3] 25 mcg (1,000 unit) Capsule Primary Care Provider: Care Physician,No Primary Referrals: Giuliano Bustillo MD [Med Staff - Active Staff] - As soon as possible Care Physician,No Primary [Primary Care Provider] - Disposition Disposition: Home, Self Care Discharge Date/Time: 11/25/22 22:13
[2022-11-25 20:21] VITALS: PULSE 76; RESP 15; O2SAT 94
[2022-11-25 20:22] VITALS: BP 137/82
[2022-11-25 20:33] VITALS: BP 128/81; BP 128/90; BP 142/89; PULSE 72; PULSE 79
[2022-11-25 22:10] VITALS: BP 124/63; PULSE 70; RESP 16; O2SAT 97
== END 2022-11-25 22:13 | disposition home or self-care (01) ==
PROVIDERS: Emergency Provider Student in an Organized Health Care Education/Training Program; Visit Provider Student in an Organized Health Care Education/Training Program
DX: R55 Syncope and collapse (principal); Z21 Asymptomatic human immunodeficiency virus [HIV] infection status; S20.211A Contusion of right front wall of thorax, initial encounter; F17.210 Nicotine dependence, cigarettes, uncomplicated; I10 Essential (primary) hypertension; W19.XXXA Unspecified fall, initial encounter; Z79.899 Other long term (current) drug therapy
CPT/HCPCS: 71101; 80048; 84484; 85025; 93005; 99285; A4216

== ENCOUNTER → 2022-11-27 | Outpatient (CLI) | payer MEDICAID, SELFPAY ==
[2022-11-27 14:43] LABS: Bacteria 0 SEEN /hpf (None Seen); Mucous, Urine 0 SEEN /hpf (<or=2+); Red Blood Cells-Urine 0 SEEN /hpf (0-5); Squamous Epithelial Cells - UA 0 SEEN /hpf (0-5); White Blood Cells 0 SEEN /hpf (0-5)
[2022-11-27 15:34] LABS: Mean Corp Hgb Conc 34.1 g/dL (32-36); Mean Corpuscular Hgb 31.9 pg (27.0-32.0); Mean Corpuscular Volume 93.6 fL (80-94); Mean Platelet Vol. 8.4 fl (6.2-12.0); Platelet Count 324 K/mm3 (150-450); RBC Distribution Width CV 14.1 % (11.6-14.6); RBC Distribution Width SD 48.6 fl (35.1-43.9); White Blood Count 8.7 K/mm3 (4.4-11.0)
[2022-11-27 16:01] LABS: Anion Gap 9 (5-15); BUN 10 mg/dL (7-18); Chloride 107 mmol/L (98-107); EST Glomerular Filtration Rate 91 mL/min (>60); Est Glom Filt Rate - Afr Amer 110 mL/min (>60); Glucose 124 mg/dL (74-106); Potassium 3.5 mmol/L (3.5-5.1); Sodium Level 142 mmol/L (136-145)
[2022-11-27 16:03] LABS: Color, Urine Yellow (Yellow); Glucose, Dipstick Normal (Normal); Ketone-Dipstick Negative (Negative); Leukocyte Esterase-Dipstick Negative /ul (Negative); Nitrite-Dipstick Negative (Negative); Occult Blood-Urine Negative /ul (Negative); Protein-Dipstick Negative (Negative); Specific Gravity, Urine 1.015 (1.002-1.030); Urine Bilirubin Dipstick Negative (Negative); Urine Clarity Clear (Clear); Urine Urobilinogen Normal (Normal); Urine pH 6.5 (5.0 - 8.0)
[2022-11-27 16:58] LABS: Hepatitis B Surface Antibody Non-Reactive; Hepatitis B Surface Antigen Non-Reactive (Nonreactive); Hepatitis C Antibody Non-Reactive (Nonreactive)
[2022-11-27 17:02] LABS: Chlamydia Trachomatis by PCR Negative (Negative); Neisserai gonorrhoeae by PCR Negative (Negative); Probe Check PASS; Sample Adequacy Control PASS; Specimen Processing Control PASS
[2022-11-29 16:09] LABS: Absolute CD4 Helper 966 /uL (359-1519); Basophils (Absolute) 0 x10E3/uL (0.0-0.2); Eosinophils 2 % (Not Estab.); Eosinophils (Absolute) 0.1 x10E3/uL (0.0-0.4); Hemoglobin 14.9 g/dL (13.0-17.7); Hepatitis A AB, Total Negative (Negative); Immature Granulocytes 0 % (Not Estab.); Immature Granulocytes Absolute 0 x10E3/uL (0.0-0.1); Lymphs 23 % (Not Estab.); MCH 30.2 pg (26.6-33.0); MCHC 32.4 g/dL (31.5-35.7); MCV 93 fL (79-97); Monocytes 10 % (Not Estab.); Monocytes (Absolute) 0.8 x10E3/uL (0.1-0.9); Neutrophils 64 % (Not Estab.); Neutrophils (Absolute) 5.8 x10E3/uL (1.4-7.0); Percent % CD4 Pos. Lymph. 48.3 % (30.8-58.5); Platelets 349 x10E3/uL (150-450); QNTFERON TB Mitogen Value > 10.00 IU/mL (.); QNTFERON TB Nil Value 0.19 IU/mL (.); QNTFERON TB1+ Ag Value 0.23 IU/mL (.); QNTIFERON TB Positive Criteria Negative (Negative); RBC Count 4.94 x10E6/uL (4.14-5.80); RDW 13.8 % (11.6-15.4); WBC Count 8.9 x10E3/uL (3.4-10.8)
[2022-11-30 04:07] LABS: HIV-1 RNA by PCR, Quant. < 20 copies/mL (.)
== END | disposition home or self-care (01) ==
PROVIDERS: Referring Provider Internal Medicine Infectious Disease; Visit Provider Internal Medicine Infectious Disease
DX: B20 Human immunodeficiency virus [HIV] disease (principal)
CPT/HCPCS: 36415; 80048; 81001; 85027; 86361; 86480; 86706; 86708; 86803; 87086; 87340; 87491; 87536; 87591

== ENCOUNTER 2023-01-18 23:03 | Emergency (ER) | payer MEDICAID, SELFPAY ==
[2023-01-18 23:06] VITALS: BP 150/103; PULSE 91; RESP 18; TEMP 36.8; O2SAT 97; BMI 20.9
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
--- NOTE | 2023-01-19 00:12 | CT_ITS ---
EXAM: CT cervical spine. HISTORY: Injury/Pain TECHNIQUE: No intravenous contrast. A radiation dose optimization technique was used for this scan. COMPARISON: None. LIMITATIONS: None. FRACTURES: None. SPINAL CANAL: No significant stenosis. DEGENERATIVE CHANGE: Mild degenerative change. SOFT TISSUE: Normal. OTHER: None. CONCLUSION: No acute fracture. Electronically Signed: Frantz Hawkins MD at 1:58 EDT , CT/Spine Cervical without Contras IMPRESSION: undefined
--- NOTE | 2023-01-19 00:12 | CT_ITS ---
EXAM: CT brain without contrast HISTORY: Injury/Pain TECHNIQUE: No intravenous contrast. A radiation dose optimization technique was used for this scan. COMPARISON: Head CT February 24, 2016. LIMITATIONS: None. BRAIN: Normal garcia/white matter differentiation. VENTRICLES: No hydrocephalus. EXTRA-AXIAL SPACES: No acute hemorrhage. CALVARIUM/SKULL BASE: No acute fracture. FACE/SINUSES: No significant abnormality. SOFT TISSUES: Normal. OTHER: None. CONCLUSION: No acute intracranial abnormality. Electronically Signed: Frantz Hawkins MD at 1:51 EDT , CT/Brain/Head without Contrast IMPRESSION: undefined
[2023-01-19] MEDS: Ketorolac 30 MG/ML Syringe IV (03:16)
[2023-01-19 03:29] VITALS: BP 116/86; PULSE 74; RESP 18; O2SAT 100
== END 2023-01-19 03:36 | disposition home or self-care (01) ==
PROVIDERS: Emergency Provider Emergency Medicine; Visit Provider Emergency Medicine
DX: S06.0X0A Concussion without loss of consciousness, initial encounter (principal); Z59.00 Homelessness unspecified; F17.210 Nicotine dependence, cigarettes, uncomplicated; I10 Essential (primary) hypertension; Z85.89 Personal history of malignant neoplasm of other organs and systems; W22.8XXA Striking against or struck by other objects, initial encounter
CPT/HCPCS: 70450; 72125; 96374; 99285; A4216

== ENCOUNTER 2023-06-10 21:42 | Emergency (ER) | payer MEDICAID, SELFPAY ==
[2023-06-10 21:42] VITALS: BP 162/103; PULSE 102; RESP 16; TEMP 36.6; O2SAT 100; BMI 21.3
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
[2023-06-10] MEDS: Smz/Tmp Ds Tablet 1 TABLET PO (22:36)
[2023-06-10] MEDS: Doxycycline 100 MG CAPSULE PO (22:36)
[2023-06-10 22:44] VITALS: PULSE 89; RESP 17; O2SAT 98
== END 2023-06-10 23:11 | disposition home or self-care (01) ==
LOC: ED 22:29
PROVIDERS: Emergency Provider Emergency Medicine; Visit Provider Emergency Medicine
DX: L03.113 Cellulitis of right upper limb (principal); B20 Human immunodeficiency virus [HIV] disease; I10 Essential (primary) hypertension; Z59.00 Homelessness unspecified; F17.210 Nicotine dependence, cigarettes, uncomplicated; K21.9 Gastro-esophageal reflux disease without esophagitis; Z79.899 Other long term (current) drug therapy
CPT/HCPCS: 99283

== ENCOUNTER → 2023-06-18 | Outpatient (CLI) | payer MEDICAID, SELFPAY ==
[2023-06-18 15:11] LABS: Absolute Lymphocyte Count 2.28 X10^3/uL (0.83-4.51); Absolute Neutrophil Count 3.1 X10^3/uL (2.0-7.7); Basophil# 0.08 X10^3/uL; Basophil% 1.3 % (0-1); Eosinophil# 0.21 X10^3/uL; Eosinophils% 3.3 % (0-5); Hematocrit 47.7 % (40-54); Hemoglobin 15.4 g/dL (13.0-16.5); Lymphocyte # 2.28 X10^3/ul (0.83-4.51); Lymphocyte % 35.7 % (19-41); Mean Corp Hgb Conc 32.3 g/dL (32-36); Mean Corpuscular Hgb 31.3 pg (27.0-32.0); Mean Platelet Vol. 8.2 fl (6.2-12.0); Monocyte# 0.69 X10^3/uL; Monocyte% 10.8 % (0-10); NRBC Flagged by Analyzer 0 % (0-5); Neutrophil % 48.6 % (47-70); POSITIVE MORPHOLOGY YES; Platelet Count 312 K/mm3 (150-450); RBC Distribution Width CV 12.8 % (11.6-14.6); RBC Distribution Width SD 45.7 fl (35.1-43.9); Red Blood Count 4.92 M/mm3 (4.6-6.2); White Blood Count 6.4 K/mm3 (4.4-11.0)
[2023-06-18 15:41] LABS: Differential Indicated SCAN CRITERIA MET
[2023-06-18 15:44] LABS: Atypical Lymphocyte 1+ %; Platelet Estimate ADEQUATE (ADEQ); Red Cell Morphology N CHROM NORMAL (NORM C&C)
[2023-06-18 15:45] LABS: Anisocytosis RARE; Macrocytosis RARE
[2023-06-18 16:13] LABS: AST(SGOT) 17 U/L (15-37); Alanine Aminotransfer ALT/SGPT 33 U/L (16-61); Albumin, Serum 3.7 g/dL (3.2-5.0); Alkaline Phosphatase 98 U/L (45-117); Anion Gap 6 (5-15); BUN 10 mg/dL (7-18); BUN/Creat Ratio 11.6 RATIO (10-20); Calcium,Total 8.6 mg/dL (8.5-10.1); Chloride 104 mmol/L (98-107); Creatinine, Serum 0.86 mg/dL (0.70-1.30); EST Glomerular Filtration Rate 108 mL/min (>60); Est Glom Filt Rate - Afr Amer 130 mL/min (>60); Globulin 3.6 g/dL (2.2-4.2); Glucose 87 mg/dL (74-106); Potassium 4.3 mmol/L (3.5-5.1); Protein, Total 7.3 g/dL (6.4-8.2); Sodium Level 139 mmol/L (136-145); T4 Free Direct 0.81 ng/dL (0.76-1.46); Thyroid Stim Hormone (TSH) 0.86 uIU/mL (0.358-3.74); Uric Acid 4.1 mg/dL (3.5-7.2)
[2023-06-18 16:14] LABS: Syphilis Antibodies Non-reactive
[2023-06-20 16:09] LABS: Absolute CD4 Helper 818 /uL (359-1519); Basophils (Absolute) 0.1 x10E3/uL (0.0-0.2); EBV Acute VCA IgM < 36.0 U/mL (0.0-35.9); Eosinophils 3 % (Not Estab.); Eosinophils (Absolute) 0.2 x10E3/uL (0.0-0.4); Hematocrit 46.4 % (37.5-51.0); Hemoglobin 15.4 g/dL (13.0-17.7); Immature Granulocytes 0 % (Not Estab.); Immature Granulocytes Absolute 0 x10E3/uL (0.0-0.1); Lymphs 38 % (Not Estab.); Lymphs (Absolute) 2.4 x10E3/uL (0.7-3.1); MCH 31.7 pg (26.6-33.0); MCHC 33.2 g/dL (31.5-35.7); MCV 96 fL (79-97); Monocytes 9 % (Not Estab.); Monocytes (Absolute) 0.6 x10E3/uL (0.1-0.9); Neutrophils 49 % (Not Estab.); Percent % CD4 Pos. Lymph. 34.1 % (30.8-58.5); Platelets 336 x10E3/uL (150-450); RBC Count 4.86 x10E6/uL (4.14-5.80); RDW 12.1 % (11.6-15.4); WBC Count 6.3 x10E3/uL (3.4-10.8)
[2023-06-21 13:07] LABS: HIV-1 RNA by PCR, Quant. 50 copies/mL (.); LOG10 HIV-1 RNA 1.699 (.)
== END | disposition home or self-care (01) ==
LOC: LAB 14:49
PROVIDERS: Visit Provider Internal Medicine Infectious Disease
DX: I10 Essential (primary) hypertension (principal)
CPT/HCPCS: 36415; 80053; 84439; 84443; 84550; 85025; 86361; 86665; 86780; 87536

== ENCOUNTER 2023-07-16 16:48 | Emergency (ER) | payer MEDICAID, SELFPAY ==
[2023-07-16 16:51] VITALS: BP 147/98; PULSE 54; RESP 18; TEMP 36.4; O2SAT 100; BMI 21.3
--- NOTE | 2023-07-16 17:11 | CT_ITS ---
EXAM: CT HEAD AND CERVICAL SPINE WITHOUT INTRAVENOUS CONTRAST CLINICAL INDICATION: trauma, pain. TECHNIQUE: Helically acquired images were obtained of the head/brain and cervical spine without intravenous contrast. 2D reformatted images were reviewed. This CT exam was performed using one or more of the following dose reduction techniques: automated exposure control, adjustment of the mA and/or kV according to patient size, and/or use of iterative reconstruction technique. COMPARISON: CT head, 01/19/[address] cervical spine, 01/19/2023. FINDINGS: BRAIN AND EXTRA-AXIAL SPACES: No significant abnormality. No intra- or extra-axial hemorrhage. No evidence of acute infarct. No intracranial mass or mass effect. There is preservation of the garcia/white matter interface. Posterior fossa structures are unremarkable. Ventricles are appropriate for age. No hydrocephalus. Basal cisterns are patent. SKULL: No calvarial or skull base fracture. SINUSES: No significant findings. MASTOID AIR CELLS: No significant abnormality. Clear. VERTEBRAE: Multilevel facet, uncovertebral joint, and endplate osteophytosis. No fracture. No traumatic subluxation. No discrete lytic or blastic abnormality. Normal alignment. Normal craniocervical junction and cervicothoracic junction. DISCS/SPINAL CANAL/NEURAL FORAMINA: Mild to moderate multilevel spinal canal stenosis. Multilevel intervertebral disc height loss. Mild to moderate multilevel neural foraminal narrowing. Multiple small disc herniations and/or disc bulges are present. SOFT TISSUES: Nasal soft tissue swelling is present. No prevertebral soft tissue swelling. LYMPH NODES: No significant abnormality. No cervical adenopathy. NASAL CAVITY/SEPTUM: Bilateral nasal bone fractures appear to be acute. Secretions and/or blood is identified within the left nasal cavity extending into the nasopharynx. LUNG APICES: Normal as visualized. Clear. CT/Spine Cervical without Contras IMPRESSION: 1. Bilateral nasal bone fractures appear to be acute. Overlying nasal soft tissue swelling. 2. No CT evidence of acute intracranial pathology. 3. Degenerative changes in the cervical spine. No acute fracture or traumatic subluxation. Electronically Signed: Prakash Galindo DO at 17:39 EST ,
--- NOTE | 2023-07-16 17:11 | CT_ITS ---
EXAM: CT HEAD AND CERVICAL SPINE WITHOUT INTRAVENOUS CONTRAST CLINICAL INDICATION: trauma, pain. TECHNIQUE: Helically acquired images were obtained of the head/brain and cervical spine without intravenous contrast. 2D reformatted images were reviewed. This CT exam was performed using one or more of the following dose reduction techniques: automated exposure control, adjustment of the mA and/or kV according to patient size, and/or use of iterative reconstruction technique. COMPARISON: CT head, 01/19/[address] cervical spine, 01/19/2023. FINDINGS: BRAIN AND EXTRA-AXIAL SPACES: No significant abnormality. No intra- or extra-axial hemorrhage. No evidence of acute infarct. No intracranial mass or mass effect. There is preservation of the garcia/white matter interface. Posterior fossa structures are unremarkable. Ventricles are appropriate for age. No hydrocephalus. Basal cisterns are patent. SKULL: No calvarial or skull base fracture. SINUSES: No significant findings. MASTOID AIR CELLS: No significant abnormality. Clear. VERTEBRAE: Multilevel facet, uncovertebral joint, and endplate osteophytosis. No fracture. No traumatic subluxation. No discrete lytic or blastic abnormality. Normal alignment. Normal craniocervical junction and cervicothoracic junction. DISCS/SPINAL CANAL/NEURAL FORAMINA: Mild to moderate multilevel spinal canal stenosis. Multilevel intervertebral disc height loss. Mild to moderate multilevel neural foraminal narrowing. Multiple small disc herniations and/or disc bulges are present. SOFT TISSUES: Nasal soft tissue swelling is present. No prevertebral soft tissue swelling. LYMPH NODES: No significant abnormality. No cervical adenopathy. NASAL CAVITY/SEPTUM: Bilateral nasal bone fractures appear to be acute. Secretions and/or blood is identified within the left nasal cavity extending into the nasopharynx. LUNG APICES: Normal as visualized. Clear. CT/Brain/Head without Contrast IMPRESSION: 1. Bilateral nasal bone fractures appear to be acute. Overlying nasal soft tissue swelling. 2. No CT evidence of acute intracranial pathology. 3. Degenerative changes in the cervical spine. No acute fracture or traumatic subluxation. Electronically Signed: Prakash Galindo DO at 17:39 EST ,
--- NOTE | 2023-07-16 17:12 | EX.ED.GENINJ ---
HPI History of Present Illness Chief Complaint: Head Injury Informant: patient Narrative Narrative: Patient states he was at home playing with the dog and crashed into the refrigerator and thinks he lost consciousness, woke up on the floor with a headache and nosebleed, with nasal pain. He states he occasionally has some visual disturbances left eye but no visual field loss, and right now his vision is fine/normal. He has pain in the top of his neck as well. He denies any other injury. [facility] Medical History Acid reflux Asthma Cancer of intestinal tract Depression Hypertension Polycystic kidney disease Home Medications omeprazole 20 mg tablet,delayed release 20 mg PO DAILY 01/19/22 [History Last Taken Unknown] bictegravir 50 mg-emtricitabine 200 mg-tenofovir alafenam 25 mg tablet (Biktarvy) 1 tab PO DAILY 11/25/22 [History Last Taken 01/18/23] cholecalciferol (vitamin D3) 25 mcg (1,000 unit) capsule (Vitamin D3) 11/25/22 [History Last Taken Unknown] doxycycline monohydrate 100 mg capsule 100 mg PO BID #20 CAPSULES 06/10/23 [Rx Last Taken Unknown] naproxen 500 mg tablet (Naprosyn) 500 mg PO BID PRN pain #20 tabs 06/10/23 [Rx Last Taken Unknown] sulfamethoxazole 800 mg-trimethoprim 160 mg tablet (Bactrim DS) 1 tab PO BID #20 tabs 06/10/23 [Rx Last Taken Unknown] Allergy/AdvReac Type Severity Reaction Status Date / Time meloxicam [From Mobic] Allergy Severe Anaphylaxis Verified 07/16/23 16:50 metoclopramide [From Reglan] Allergy Other Verified 06/10/23 21:44 Antihistamines - Alkylamine AdvReac Other Verified 06/10/23 21:44 Antihistamines - Ethanolamine AdvReac Other Verified 10/16/22 20:51 Antihistamines - AdvReac Other Verified 06/10/23 21:44 Ethylenediamine Antihistamines - Piperazine AdvReac Other Verified 06/10/23 21:44 Antihistamines - Piperidine AdvReac Other Verified 06/10/23 21:44 prochlorperazine AdvReac Other Verified 06/10/23 21:44 shellfish derived AdvReac Abd Verified 06/10/23 21:44 cramps/diarrhea Surgical History H/O wrist surgery History of bowel resection Hx of tonsillectomy Social History household members: none housing: homeless Smoking Status: Current every day smoker tobacco type: cigarettes substance use type: does not use ROS ROS ED Constitutional Constitutional ED: Denies chills or fever(s) Eyes Eyes: Reports change in vision; Denies diplopia ENT ENT ED: Reports epistaxis and facial pain; Denies ear pain Cardiovascular Cardiovascular: Denies chest pain or palpitations Respiratory/Chest Respiratory/Chest: Denies cough or dyspnea Gastrointestinal Gastrointestinal: Denies abdominal pain, diarrhea, melena, nausea or vomiting Genitourinary Genitourinary ED: Denies dysuria or hematuria Musculoskeletal Musculoskeletal: Reports neck pain and other Details: Chronic low back discomfort no different now ; Denies extremity pain Integumentary Denies abscess, Abrasions, laceration or rash Neurologic Neurologic: Reports headache(s); Denies confusion, paresthesias or weakness EXAM Physical Exam Const Vital Signs: 07/16/23 16:51 07/16/23 16:55 Temperature 97.5 F L Temperature Source Temporal Pulse Rate 54 L Respiratory Rate 18 Respiratory Effort Normal Non-Labored Respiratory Depth Normal Respiratory Pattern Normal Blood Pressure 147/98 H Blood Pressure Mean 114 Pulse Ox 100 Oxygen Delivery Method Room Air Room Air Positive well nourished and well developed General Appearance ED: well developed and NAD HEENT Reports TM's clear and nasal mucous membranes and turbinates normal HEENT Narrative: Nasal tenderness, otherwise no facial tenderness. There is swelling at the nose but no asymmetry. There is some clotted blood in the nares but no active epistaxis. 0.5 cm partial-thickness clean appearing linear laceration to the right side of the nose, more over the bones and cartilage. There is no bone exposed. Face and Sinus: facial tenderness Tympanic Membrane ED: Yes TM's clear Eyes PERRL and EOMs intact bilaterally Visual Acuity: other Other Details: no entrapment or pain with extraocular movements Neck full ROM Neck Narrative: At top of C-spine midline near occiput/base of skull. No deformity. No crepitance. No other bony tenderness. General: tenderness Chest Wall inspection of chest normal and palpation of chest normal Chest: symmetrical chest wall rise; Negative for crepitus or tenderness Resp normal respiratory effort and clear to auscultation bilaterally Percussion: other equal BS bilat Cardio no murmurs Rate: regular rate Rhythm: regular rhythm GI normal to inspection, nondistended, normoactive bowel sounds, soft to palpation and non-tender Back/Spine normal ROM Cervical Spine: Negative for cervical spine tenderness Thoracic Spine / Upper Back: Negative for thoracic spinal tenderness Lumbar Spine / Lower Back: Negative for lumbar spinal tenderness Extremity normal to inspection and full ROM General Extremety ED: Negative for tenderness Neuro oriented x3, CN's II-XII intact bilaterally, moves all extremities, no focal motor deficits and no sensory deficits noted [place] Coma Scale: document GCS findings Spontaneous Obeys Commands Oriented 15 Sensorium / Orientation: awake and alert Psych mental status grossly normal and thought process normal Skin Skin Narrative: Laceration to the nose see above Lesions: no lesions Rashes: no rashes PROC Procedures Lacerations nose: Length: 0.5 cm Depth: Skin Shape: Linear Prep: Sterile Conditions and Chlorhexadine (crubbed) Laceration repair: Dermabond MDM MDM MDM Narrative Medical decision making narrative: CT of the head was obtained in order to rule out intracranial injury, I reviewed the images and report which I agree with, negative for anything acute except for bilateral nasal bone fractures, which is consistent with his clinical exam. Also obtain CT of the cervical spine to rule out C1 and 2 fracture, I reviewed the images and the report which I agree with, this is negative for nothing acute. Patient was reassured, he was offered something for pain and we dermabonded his laceration given appropriate discharge instructions. He does have some chest discomfort that is reproducible on exam left anterior mid chest right around the fourth and fifth ribs, there is no crepitance, he is no splinting on deep abrasion I think this is consistent with a contusion and he is in agreement it feels like that. Radiography Diagnostic Testing: Clinical Impression(s) from Imaging Studies Brain CT 07/16/23 17:11 IMPRESSION: 1. Bilateral nasal bone fractures appear to be acute. Overlying nasal soft tissue swelling. 2. No CT evidence of acute intracranial pathology. 3. Degenerative changes in the cervical spine. No acute fracture or traumatic subluxation. Electronically Signed: Prakash Galindo DO at 17:39 EST , Cervical Spine CT 07/16/23 17:11 IMPRESSION: 1. Bilateral nasal bone fractures appear to be acute. Overlying nasal soft tissue swelling. 2. No CT evidence of acute intracranial pathology. 3. Degenerative changes in the cervical spine. No acute fracture or traumatic subluxation. Electronically Signed: Prakash Galindo DO at 17:39 EST , Discharge Plan Triage Chief Complaint: Head Injury ED Provider: Tj Burns Dx/Rx/DC Orders Clinical Impression: Closed fracture of nasal bones, Chest wall contusion, Laceration of nose, Closed head injury with brief loss of consciousness Instructions: ED Nose Fracture, with X-Ray, ED Head Injury (Adult), ED Laceration, Face: Skin Glue Prescriptions: No Action omeprazole 20 mg Tablet,Delayed Release (Dr/Ec) 20 mg PO DAILY Biktarvy 50-200-25 mg Tablet 1 tab PO DAILY cholecalciferol (vitamin D3) [Vitamin D3] 25 mcg (1,000 unit) Capsule sulfamethoxazole-trimethoprim [Bactrim DS] 800-160 mg tablet 1 tab PO BID Qty: 20 0RF doxycycline monohydrate 100 mg capsule 100 mg PO BID Qty: 20 0RF naproxen [Naprosyn] 500 mg tablet 500 mg PO BID PRN (Reason: pain) Qty: 20 0RF Primary Care Provider: Care Physician,No Primary Referrals: Sarah Gonzales MD [Med Staff - Active Staff] - (as needed if concerned about symmetry or cosmetic outcome of nose) Care Physician,No Primary [Primary Care Provider] - Disposition Disposition: Home, Self Care
[2023-07-16] MEDS: traMADol 50 MG Tablet PO (18:31)
[2023-07-16] MEDS: Acetaminophen 500 MG Tablet 1000 MG PO (18:31)
--- NOTE | 2023-07-16 19:00 | ED.RN ---
when pt was discharged, pt noted to have large nosebleed. dr bocanegra made aware
== END 2023-07-16 20:24 | disposition home or self-care (01) ==
PROVIDERS: Emergency Provider Emergency Medicine; Visit Provider Emergency Medicine
DX: S01.21XA Laceration without foreign body of nose, initial encounter (principal); S06.891A Other specified intracranial injury with loss of consciousness of 30 minutes or less, initial encounter; S20.20XA Contusion of thorax, unspecified, initial encounter; S02.2XXA Fracture of nasal bones, initial encounter for closed fracture; I10 Essential (primary) hypertension; F17.210 Nicotine dependence, cigarettes, uncomplicated; Z85.89 Personal history of malignant neoplasm of other organs and systems; W22.09XA Striking against other stationary object, initial encounter; Y93.89 Activity, other specified; Y92.000 Kitchen of unspecified non-institutional (private) residence as the place of occurrence of the external cause
CPT/HCPCS: 12011; 70450; 72125; 99283

== ENCOUNTER 2023-08-01 02:14 | Emergency (ER) | payer MEDICAID, SELFPAY ==
[2023-08-01 02:15] VITALS: BP 139/80; PULSE 104; RESP 18; TEMP 37.3; O2SAT 100; BMI 21.3
--- NOTE | 2023-08-01 02:20 | EX.ED.VISEXT ---
HPI History of Present Illness Chief Complaint: Bite [facility] Medical History (Updated 08/01/23 @ 02:19 by Rina Nichols) Acid reflux Asthma Cancer of intestinal tract Depression HIV (human immunodeficiency virus infection) Hypertension Polycystic kidney disease Home Medications omeprazole 20 mg tablet,delayed release 20 mg PO DAILY 01/19/22 [History Last Taken Unknown] bictegravir 50 mg-emtricitabine 200 mg-tenofovir alafenam 25 mg tablet (Biktarvy) 1 tab PO DAILY 11/25/22 [History Last Taken 01/18/23] cholecalciferol (vitamin D3) 25 mcg (1,000 unit) capsule (Vitamin D3) 25 mcg PO BID 11/25/22 [History Last Taken Unknown] naproxen 500 mg tablet (Naprosyn) 500 mg PO BID PRN pain #20 tabs 06/10/23 [Rx Last Taken Unknown] albuterol 90 mcg/actuation aerosol inhaler 90 mcg inhalation Q4H PRN PRN sob 08/01/23 [History Last Taken Unknown] albuterol sulfate 90 mcg/actuation aerosol inhaler (ProAir HFA) 2 puff inhalation Q6H PRN shortness of breath or wheezing #6.7 grams 08/01/23 [Rx Last Taken Unknown] amoxicillin 875 mg-potassium clavulanate 125 mg tablet 1 tab PO BID #14 tabs 08/01/23 [Rx Last Taken Unknown] Allergy/AdvReac Type Severity Reaction Status Date / Time meloxicam [From Mobic] Allergy Severe Anaphylaxis Verified 08/01/23 02:22 metoclopramide [From Reglan] Allergy Other Verified 08/01/23 02:22 Antihistamines - Alkylamine AdvReac Other Verified 08/01/23 02:22 Antihistamines - Ethanolamine AdvReac Other Verified 08/01/23 02:22 Antihistamines - AdvReac Other Verified 08/01/23 02:22 Ethylenediamine Antihistamines - Piperazine AdvReac Other Verified 08/01/23 02:22 Antihistamines - Piperidine AdvReac Other Verified 08/01/23 02:22 prochlorperazine AdvReac Other Verified 08/01/23 02:22 shellfish derived AdvReac Abd Verified 08/01/23 02:22 cramps/diarrhea Surgical History H/O wrist surgery History of bowel resection Hx of tonsillectomy Social History household members: none housing: homeless Smoking Status: Current every day smoker tobacco type: cigarettes substance use type: does not use EXAM Physical Exam Const Vital Signs: 08/01/23 02:15 Temperature 99.1 F Temperature Source Temporal Pulse Rate 104 H Respiratory Rate 18 Blood Pressure 139/80 H Blood Pressure Mean 99 Pulse Ox 100 [facility] – [place] Narrative Medical decision making narrative: HISTORY OF PRESENT ILLNESS: 32-year-old male presents with dog bite. Denies shortness of breath to me. States he started hyperventilating use inhaler realizes inhaler was empty. The symptoms have since resolved REVIEW OF SYSTEMS: Pertinent positives: dog Bite Pertinent negatives: Breath, chest pain PHYSICAL EXAM: Nursing triage notes reviewed, Vital signs reviewed Constitutional: [facility] HENT: MMM Eyes: Pupils equal round and reactive to light, Extraocular muscles intact Neck: No stridor, no JVD, full neck ROM Lungs: Clear to auscultation, No wheezing or rales. No increased work of breathing, no conversational dyspnea, no accessory muscle use, no nasal flaring. No respiratory distress noted Heart: Regular rate and rhythm, No murmurs, No rubs and No gallops, 2+ distal pulses (radial, femoral, posterior tibial) in all extremities Abdomen: Soft, there is no tenderness, rigidity, rebound or guarding, no obvious peritoneal signs, no palpable pulsatile abdominal masses, no auscultated abdominal bruit : No CVAT Extremities: No edema Neuro: No focal neurological deficits, cranial nerves II through XII intact, 5/5 strength in all extremities. Intact sensation to light touch in all extremities, 2+ reflexes bilateral patella tendons. Normal gait. No ataxia. Skin: Linear approximate 2 cm laceration noted to the right maxilla MEDICAL DECISION MAKING: Chief Complaint: Dog bite, facial laceration External records reviewed: Unknown last tetanus Factors affecting care: HIV on Biktarvy [facility] Narrative: The patient suffered lacerations to the face On exam there was no evidence of foreign bodies. There was no evidence of neurovascular injury. There is no evidence of local joint space involvement at this time. Wound care applied (irrigation and/or local cleansing solution). Laceration repair was then performed please see procedure note. The patient was given signs and symptoms warnings for infection, such as increasing pain, redness, swelling, associated heat, pus or fever. Patient was given instructions for timely follow-up for removal. Patient agreed with the plan of care Procedure: Laceration repair. The procedure was performed by myself. Indication: Wound repair Risks and benefits: risks, benefits and alternatives were discussed Consent: Consent was obtained. Wound Details: Approximately 2 cm linear laceration noted horizontally on the maxilla Anesthesia: Topical LET (verbal consent obtained from patient). Wound prep: Patient was prepped and draped in the usual sterile fashion. Tetanus: Updated today Irrigation Solution: Saline Wound Preparation: Irrigated with normal saline, cleaned with chlorhexidine The wound was explored to its base in a bloodless field. Procedure Description: Applied a running stitch with 5-0 Chromic Gut with close approximation Patient tolerated the procedure well with no immediate complications The patient and/or family, caregivers express understanding. The patient and/or family, caregivers agrees with the plan. Shared decision making: I will have a discussion with the patient and or visitors regarding risk/benefits of further testing or admission. They will be made aware of of the risk/benefits inherent in this decision they will be given the opportunity to voice understanding. Total critical care time today provided was at least 0 minutes. This excludes separately billable procedures. Critical care time (if documented) is secondary to the patient having high probability of clinically significant/life threatening deterioration in the patient's condition which required my urgent intervention. Impression: 1. Dog bite 2. Face laceration 3. History of HIV Dispo: Discharge Discharge Plan Triage Chief Complaint: Bite ED Provider: Bogdan Austin Dx/Rx/DC Orders Instructions: ED Dog Bite, ED FACIAL LACERATION Suture Tape Prescriptions: New amoxicillin-pot clavulanate 875-125 mg tablet 1 tab PO BID Qty: 14 0RF albuterol sulfate [ProAir HFA] 90 mcg/actuation HFA aerosol inhaler 2 puff inhalation Q6H PRN (Reason: shortness of breath or wheezing) Qty: 6.7 3RF No Action omeprazole 20 mg Tablet,Delayed Release (Dr/Ec) 20 mg PO DAILY Biktarvy 50-200-25 mg Tablet 1 tab PO DAILY cholecalciferol (vitamin D3) [Vitamin D3] 25 mcg (1,000 unit) Capsule 25 mcg PO BID naproxen [Naprosyn] 500 mg tablet 500 mg PO BID PRN (Reason: pain) Qty: 20 0RF albuterol 90 mcg/actuation aerosol 90 mcg inhalation Q4H PRN PRN (Reason: sob) Primary Care Provider: Care Physician,No Primary Referrals: Yesy Alba DO [Med Staff - Broth Setter] - Landy Irby MD [Med Staff - Active Staff] -
--- OUTSIDE RECORDS SUMMARY | 2023-08-01 02:40 | XMS RPT_ITS | CCD ---
Author Name Unknown Address [address] [place] [address] Organization [facility] Care Team Providers Care Criminal Investigative Agent Name Role Phone Ronni Landaverde Primary Care Provider [phone] Pcp, No Primary Care Provider Unavailabl e Unavailable Primary Care Provider Unavailabl e TESTRAKE, TJ Referring Unavailable TESTRAKE, TJ Referring Unavailable MCGILL, KAYLA Referring Unavailable TESTRAKE, TJ Attending Unavailable TESTRAKE, TJ Attending Unavailable MCGILL, KAYLA Referring Unavailable TESTRAKE, TJ Referring Unavailable TAPIO, PATRICIA Admitting Unavailable TAPIO, PATRICIA Attending Unavailable TAPIO, PATRICIA Consulting Unavailable Pcp BUSINESS SUPPORT MANAGER, No Primary Care Provider Unavailabl e Allergies Allergy Classification Reported Allergen(s) Allergy Type Date of Onset Reaction(s) Facility Unclassified (12 sources) Antihistimine; Translations: [ANTIHISTIMINE] Drug Allergy 06-19-2015 Mental Status Change [facility] (8 sources) Metoclopramide; Translations: [METOCLOPRAMIDE] Drug Allergy 01-28-2019 Mental Status Change, Other: See Comments [facility] (8 sources) Prochlorperazine ; Translations: [PROCHLORPERAZIN E] Drug Allergy 01-28-2019 Mental Status Change, Other: See Comments [facility] (8 sources) Shellfish; Translations: [SHELLFISH DERIVED] Drug Allergy 03-21-2022 Diarrhea [facility] Medications Current Medications Medication Drug Class(es) Dates Sig (Normalized) Sig (Original) amoxicillin 875 mg / clavulanate 125 mg oral tablet (1 source) Penicillin-class Antibacterial Start: 04-09-2023 End: 04-19-2023 amoxicillin-clavu lanic acid (AUGMENTIN) 875-125 mg per tablet Take 1 tablet by mouth twice daily for 10 days. FOR 7 DAYS. 20 tablet 0 04/09/2023 04/19/2023 Active Completed/Discontinued Medications Medication Drug Class(es) Dates Sig (Normalized) Sig (Original) acetaminophen 325 mg oral tablet (1 source) Start: 02-27-2023 take 325-650 mg by mouth every four hours as needed acetaminophen (TYLENOL) 325 mg tablet Take 1-2 tablets by mouth every 4 hours as needed for pain. 200 tablet 0 02/27/2023 Active Problems Active Problems Problem Classification Problem Date Documented Da te Episodic/Chronic Other circulatory disease (1 source) Abnormal peripheral pulse; Translations: [Other specified symptoms and signs involving the circulatory and respiratory systems] Episodic Other connective tissue disease (3 sources) Pain of toe of right foot; Translations: [Pain in right toe(s)] Episodic Other connective tissue disease (3 sources) Mass of soft tissue; Translations: [Other specified soft tissue disorders] Episodic Other connective tissue disease (1 source) Pain in right toe(s); Translations: [Pain of toe of right foot] Onset: 01-28-2023 Episodic Other connective tissue disease (1 source) Other specified soft tissue disorders; Translations: [Soft tissue mass] Onset: 01-28-2023 Episodic Other male genital disorders (11 sources) Pain in penis; Translations: [Other specified disorders of penis] Onset: 12-04-2015 12-04-2015 Chronic Other skin disorders (2 sources) Mass of foot; Translations: [Localized swelling, mass and lump, right lower limb] Episodic Skin and subcutaneous tissue infections (1 source) Cellulitis and abscess of toe; Translations: [Cellulitis of right toe] 01-28-2023 Episodic Past or Other Problems Problem Classification Problem Date Documented Da te Episodic/Chronic Calculus of urinary tract (11 sources) Kidney stone; Translations: [Calculus of kidney] Onset: 07-05-2015 07-05-2015 Episodic Other circulatory disease (1 source) Other specified symptoms and signs involving the circulatory and respiratory systems; Translations: [Diminished pulses in lower extremity] Onset: 08-01-2022 Episodic Other diseases of kidney and ureters (11 sources) Cyst of kidney; Translations: [Cyst of kidney, acquired] Onset: 07-05-2015 07-05-2015 Episodic Other skin disorders (1 source) Localized swelling, mass and lump, right lower limb; Translations: [Mass of right foot] Onset: 08-01-2022 Episodic Results Test Name Value Interpretation Reference Range Facil ity Encounters Encounter Date Encounter Type Care Provider Facility Start: 04-18-2023 ambulatory PATRICIA Urena [facility] Start: 04-09-2023 Telephone encounter Tj Gould Work Phone: Podiatry Procedures Date Procedure Procedure Detail Performing Clinician Start: 01-28-2023 Radex toe minimum 2 views Tj Sorto Work Phone: Start: 08-01-2022 Mri lower extrem oth /thn jt w/o & w/contr matr Tj Sorto Work Phone: Plan of Treatment Date Care Activity Detail Author Start: 06-28-2024 Urine microalbumin profile DTaP,Tdap,Td Vaccine (2 - Td or Tdap) [facility] Start: 03-21-2023 Influenza vaccination [facility] Start: 07-21-2022 DEPRESSION ASSESSMENT DEPRESSION ASSESSMENT [facility] Start: 03-21-2022 Influenza vaccination INFLUENZA (#1) [facility] Start: 07-21-2021 DEPRESSION ASSESSMENT DEPRESSION ASSESSMENT [facility] Start: 03-21-2021 Influenza vaccination INFLUENZA (Season Ended) [facility] Start: 2007 Urine microalbumin profile [facility] Start: 2006 HEPATITIS C SCREENING HEPATITIS C SCREENING [facility] Start: 2006 HIV SCREENING HIV SCREENING [facility] Start: 2000 Adult depression screening assessment DEPRESSION SCREENING [facility] Start: 1994 PNEUMOCOCCAL (1 - PCV) PNEUMOCOCCAL (1 - PCV) [facility] Start: 1994 Pneumococcal vaccination Pneumococcal Vaccine (1 - PCV) [facility] Start: 02-21-1989 COVID-19 VACCINE (#1) COVID-19 VACCINE (#1) [facility] Start: 1988 HEPATITIS B (1 of 3 - 3-dose series) HEPATITIS B (1 of 3 - 3-dose series) [facility] Start: 1988 Hepatitis B Vaccine (1 of 3 - 3-dose series) Hepatitis B Vaccine (1 of 3 - 3-dose series) [facility] End: 2023 Mri lower extrem oth/thn jt w/o & w/contr matr MRI FOOT/TOES WO/W IVCON RT Radiology Routine Mass of right foot 1 Occurrences starting 07/25/2022 until 2023 [facility] Work Phone: Payers Date Payer Category Payer Medicaid [id number] 2021 Medicaid [id number] 2014 Private Health Insurance [employer] PPO [id number] 2014-Present PPO [id number] 1988 Unknown [id number] Social History Date Type Detail Facility Start: 06-19-2015 End: 01-28-2023 Tobacco smoking status DEIS Current every day smoker [facility] History of tobacco use Cigarette Smoker [facility] Start: 06-19-2015 End: 08-02-2022 Cigarettes smoked current (pack per day) - Reported [facility] Start: 06-19-2015 End: 01-28-2023 Tobacco use and exposure Never used [facility] Start: 06-19-2015 End: 06-19-2022 Alcohol intake Not Asked [facility] Start: 1988 Sex Assigned At Not on file [facility] Start: 06-09-2022 End: 06-19-2022 Exposure to SARS-CoV-2 (event) Not sure [facility] Work Phone: Start: 07-25-2022 Alcohol intake Current drinke r of alcohol (finding) [facility] Start: 07-25-2022 Alcohol Comment rarely [facility] Start: 01-28-2023 End: 02-27-2023 Alcohol intake Ex-drinker (finding) [facility] Start: 08-02-2022 End: 01-28-2023 Tobacco use panel [facility] National Score (1-10 0), lower number is lower risk 70 [facility] Start: 1988 Sex Assigned At Male [facility] Start: 01-28-2023 Gender identity Identifies as male gender (finding) [facility] Start: 04-10-2022 Sexual orientation Homosexual (findi ng) [facility] Clinical Notes 07-03-2015 to 04-09-2023 Telephone Encounter - Tj Sorto - 04/09/2023 10:19 PM EDTTelephone Encounter - Tj Sorto - 02/27/2023 5:53 AM EDTTelephone Encounter - Tj Sorto - 02/26/2023 1:08 PM EDT Note Date & Type Note Facility 04-09-2023 Miscellaneous Notes I received text from patient stating he is starting to have pain in his toe again and now he has new bumps to his ankle I called patient to discuss further and I asked for a pic. He does have minimal swelling in his great toe but does have new bump to the lateral aspect of ankle. His foot does not appear cellulitic. I discussed my thoughts. I had recommended he go see rheumatology in the past but being that the appointment was in [place], he elected not to go. He did not see my colleague Dr. Gray because of distance to travel. He has yet to follow-up in my office. He states his toe did get better. I told patient I would welcome him to my office for further evaluation. I do have concerns that he is getting these random bouts of swelling and ?Pustules of his foot and now his ankle. His last issue was an osseous mass to his great toe that went away after his toe broke open. I do feel making an appointment with rheumatology is a good idea. He tells me he is having back issues so I wonder if this could be rachel's or HLA condition. I would recommend he see rheumatology. He denies drug use. His only pmh is significant for HIV but is controlled. The fact he is now having issues with his ankle has me left wondering if there is something more systemic going on. I will call in augmentin as a precaution. I am happy to see him face to face. I did also recommend possible second opinion to have a second set of eyes look at his toe and now his ankle. Patient satisfied with discussion Tj Sorto DPM documented in this encounter [facility] 02-27-2023 Note HNO ID: [id number] Author: Lilian Lee LSW Service: Care Management Author Type: Emergency Physician Type: Care Mgt Progress Note Filed: 02/27/2023 7:04 PM Note Text: SOCIAL WORK PROGRESS NOTE SERVICE DATE: 02/27/2023 SERVICE TIME: 7:00 PM Referral received from Michael GEE, re: transportation options for pt. who has been D/C. Pt has active [employer] insurance, with transportation benefits, . Pt states he has contacted his cousin who is en route to , to transport pt home. Nursing is aware. Pt was provided with the number of [place] transportation. SIGNATURE: TYRELL Haddad PATIENT NAME: Faustino Cuellar DATE: February 27, 2023 TIME: 7:00 PM PAGER/CONTACT #: [phone] [facility] 02-27-2023 Note HNO ID: [id number] Author: Nilay Bryant, CATHIE Service: Emergency Medicine Author Type: Respiratory Therapist Type: Progress Notes Filed: 02/27/2023 2:53 PM Note Text: RESPIRATORY THERAPY PROGRESS NOTE SERVICE DATE: 02/27/2023 SERVICE TIME: 1452 Pt to CDU for abscess. Pt has no respiratory hx and no med's ordered at this time. Pt in [place]. SpO2 97% on RA. SIGNATURE: Nilay Bryant RRT PATIENT NAME: Faustino Cuellar DATE: February 27, 2023 TIME: 2:52 PM PAGER/CONTACT #: [phone] [facility] 02-27-2023 Note HNO ID: [id number] Author: Rae Mello, ASHISH Service: ? Author Type: Registered Nurse Type: Progress Notes Filed: 02/27/2023 12:36 PM Note Text: Radiology Service Progress Note DATE OF SERVICE: February 27, 2023 TIME: 12:36 PM PATIENT WEIGHT: 135LBS PATIENT IDENTITY VERIFICATION COMPLETED USING TWO (2) STANDARD IDENTIFIERS: Name and Date of confirmed by patient verbally and Name and Date of confirmed by identification band. FALL SCREENING: Has the patient had 2 falls in the last year or 1 fall with injury or currently using an Ambulatory Assistive Device (Walker, Cane, Wheelchair, Crutches, etc.)? Inpatient: Screened on floor PATIENT GENDER DATA: Male ALLERGIES: Reviewed and unchanged CONTRAST ALLERGY: No EXAM: MRI - CONTRAST TYPE: GROUP II IV SITE: Inpatient - refer to LDA documentation IV SITE APPEARANCE: Clean,Dry and Intact SIGNATURE: Rae Mello RN PATIENT NAME: Faustino Cuellar DATE: February 27, 2023 TIME: 12:36 PM [facility] 02-27-2023 Miscellaneous Notes Patient texted me this morning stating he is at the ED and there are no notes indicating what I want him there for. I did do a phone note yesterday reporting due to increasing redness and swelling of his toe, I would like him to present to the ED. I would prefer admission to the hospital for antibiotics, further evaluation with possible mri to evaluate for underlying abscess especially given the drainage he noted yesterday. Interestingly, xrays taken in ED show that whatever osseous mass was present is actually no longer present so it is possible the bony finding on prior xray and mri was no bone. Would not mind ID and rheumatology evaluation. Would prefer admission for antibiotics and monitoring with following mri. Tj Sorto DPM documented in this encounter [facility] 02-26-2023 Miscellaneous Notes I called patient to respond to his [employer] message. Patient reports he recently noticed some drainage coming from his great toe. He states this is new. He states the drainage is a clear but gritty substance and this happened yesterday. I asked patient to send me a picture of the foot and I see that his toe is swollen and red and he has a small pin point opening. I talked with patient last on 02/07 at which time he states he was getting swelling in his foot and ankle extending to his leg. I suggested presentation to the emergency department. He informs me he did not go to the ED. He states that since the drainage was expressed, his pain has subsided but upon looking at the photo he sent me, It looks like his toe is red and swollen and I cannot exclude underlying infectious process. Incidentally, he reports that he has other lesions on his legs and other parts of his body that do this. I informed him that I would like him to present to the emergency department. I discussed [facility]. He states he has had bad experiences at [facility]. Other options are he can go to [place] or he can go to [facility]. He has elected to present to [facility]. I will have him go to [facility] today. Tj Sorto DPM documented in this encounter [facility] 01-31-2023 Miscellaneous Notes I attempted to contact patient today in regards to his Th[employer] messsage. No answer. Will try to call next week. If condition worsens, present to ed Tj Sorto DPM documented in this encounter [facility] 01-28-2023 Miscellaneous Notes I called patient this evening to report xray findings. I suspect his foot issue is more inflammatory arthritis especially given that the redness does improve with elevation. I did call in keflex today but he has yet to pickle cutter. While I want him to take the keflex as a precaution, I am going to also prescribe him an oral steroid and nsaid. The oral steroid he will take now. The nsaid he can take in future if he continues to have issue. Will call patient later this week to see how he is doing Tj Sorto DPM documented in this encounter [facility] 01-28-2023 Note HNO ID: [id number] Author: RT Medhat(R) Service: ? Author Type: Ambulatory Care Coordinator Type: Progress Notes Filed: 01/28/2023 12:07 PM Note Text: Radiology Service Progress Note PATIENT NAME: Faustino Cuellar DATE OF SERVICE: January 28, 2023 TIME: 12:03 PM PATIENT IDENTITY VERIFICATION COMPLETED USING TWO (2) IDENTIFIERS: Name and Date of confirmed by patient verbally. FALL SCREENING: Has the patient had 2 falls in the last year or 1 fall with injury or currently using an Ambulatory Assistive Device (Walker, Cane, Wheelchair, Crutches, etc.)? No PATIENT GENDER DATA: Male PATIENT RELEVANT IMPLANT DATA REVIEWED: Yes RADIOLOGY DEPARTMENT: General X-ray: Exam(s) Completed: Lower Extremity X-Ray(s): Toes, Right Great toe PERIPHERAL IV DATA: Not applicable SIGNED BY: RT Medhat(R) January 28, 2023 12:03 PM [facility] 01-28-2023 Note HNO ID: [id number] Author: Tj Sorto Service: ? Author Type: Physician Type: Progress Notes Filed: 02/03/2023 4:59 PM Note Text: Chief Complaint: This 32 year old male who presents with chief complaint:right great toe pain HPI Patient presents to clinic for evaluation of right great toe pain. Patient has pain to the dorsal lateral aspect of right great toe. Patient states the pain started 3-4 days ago He reports redness to his toe. He thought that maybe he caught his sock wrong and now the pain is incresaing He states that he has difficult time sleeping. He has tried elevating, tylenol, lidocaine epson salts. Nothing is helping He did have mri in the psat that shows cyst He does smoke 3-4 cigarettes/day He is newly diagnosed hiv. PAIN EVALUATION 01/28/2023 1112 Pain Level: 10 Pain Location: Toe Description: Pressure;Sharp feels like toe is in a vice Duration Amount of Time: 4 Duration Units: Days Frequency: Continuous Intervention/Comfort measure: Medication;Relaxation;Reposition No results found for: HBA1C PCP: No primary care provider on file. No past medical history on file. Current Outpatient Medications Medication Sig BIKTARVY 50-200-25 mg per tablet Take 1 tablet by mouth every afternoon. Omeprazole Magnesium 20 mg tablet Take by mouth. Lactobac no.41/Bifidobact no.7 (PROBIOTIC-10 ORAL) cholecalciferol (VITAMIN D3) 1,000 unit tab tablet albuterol HFA (PROVENTIL HFA, VENTOLIN HFA) 90 mcg/actuation inhaler Inhale as instructed. No current facility-administered medications for this visit. ALLERGIES Allergen Reactions Antihistimine Mental Status Change Metoclopramide Mental Status Change, Other: See Comments Prochlorperazine Mental Status Change, Other: See Comments Shellfish Derived Diarrhea No past surgical history on file. No family history on file. Social History Tobacco Use Smoking status: Every Day Packs/day: 0.25 Types: Cigarettes Smokeless tobacco: Never Vaping Use Vaping Use: Never used Substance Use Topics Alcohol use: Not Currently Comment: rarely Drug use: Never REVIEW OF SYSTEMS GENERAL: Negative for Malaise, significant weight loss, fever RESPIRATORY: Negative for cough, wheezing and shortness of breath CARDIOVASCULAR: Negative for chest pain, leg swelling and palpitations GI: Negative for abdominal discomfort, blood in stools or black stools and change in bowel habits : Negative for dysuria, frequency and incontinence MUSCULOSKELETAL: Negative for joint pain or swelling, back pain, and muscle pain. SKIN: Negative for lesions, rash, and itching. HEMATOLOGY/LYMPHOLOGY Negative for prolonged bleeding, bruising easily, and swollen nodes. ENDOCRINE: Negative for cold or heat intolerance, polyuria, polydipsia and goiter. NEURO: negative Physical Exam: Constitutional: Pt is a well developed 32 year old male who is alert, oriented and cooperative Eyes: Following during examination. No redness or drainage. Respiratory: RR normal and nonlabored. Even breathing. No evidence of distress or shortness of breath. Psychology: Patient is engaged during conversation. Normal affect and mood. Does not appear depressed or anxious during encounter. Vascular: Dorsalis pedis and posterior tibial pulses palpable as b/l Capillary Fill time < 5 seconds to digits 1-5 b/l Skin temperature warm to warm proximal to distal b/l Hair growth present to digits Neurological: intact light touch/epicritic sensation b/l intact protective sensation no significant neurological deficits Dermatological: Nails 1-5 b/l appear normal. Webspaces clean and dry 1-4 b/l. Skin appears well hydrated and supple. good color, texture, turgor. No open lesions present. No callosities present. Musculoskeletal/Orthopaedic: Patient has pain to palpation of right lateral hallux ipj Foot type is neutral structurally AJ ROM is full with knee extended and flexed 1st MPJ is full when loaded and no pain or crepitus are noted with ROM. MTJ, STJ are full and free of pain and crepitus. +5/5 muscle strength dorsiflexion, plantarflexion, inversion, eversion b/l Radiographs: ordered ASSESSMENT: (M79.674) Pain of toe of right foot (primary encounter diagnosis) (M79.89) Soft tissue mass (L03.031, L02.611) Cellulitis and abscess of toe of right foot PLAN: Discussed pain in right hallux. Patient has pain particularly to the lateral aspect of right hallux ipj. I reviewd past xrays and mri and he does have calcification of the periarticular aspect of right lateral ipj. He does have some redness and swelling of the right hallux. I did elevate the right lower extremity and the redness did resolve. Differentials include inflammatory arthritis vs cellulitis from proximal fold ingrown. I discussed options not limited to starting patient on prophylactic antibiotic vs partial vs total nail avulsion. With elevation, all rednes (more content not included)... [facility] 01-28-2023 Note HNO ID: [id number] Author: Radha uKhn RN Service: ? Author Type: Registered Nurse Type: Progress Notes Filed: 02/03/2023 4:59 PM Note Text: AMB ROOMING INTAKE FLOWSHEET DATA Pain Pain Level: 10 Pain Location: Toe Description: Pressure, Sharp ( feels like toe is in a vice ) Duration Amount of Time: 4 Duration Units: Days Frequency: Continuous Intervention/Comfort measure: Medication, Relaxation, Reposition Patient presents with: Right Great Toe - Established Patient, Follow Up, Pain, Swelling Patient presents for redness and pain to Right big toe that began a few days ago. Patient states that pain is unbearable sometimes and it is hard for him to sleep. Has tried soaking it, Taking Tylenol and Motrin and nothing has helped. Was seen In July for this. MRI showed mild bone marrow edema and calcification. [facility] 01-28-2023 Instructions Tj Sorto - 01/28/2023 11:42 AM EDT Soak your toe in soap and water or epsom salts Get xrays Take antibiotic If condition does not improve, consider partial nail removal documented in this encounter [facility] 01-28-2023 History of Presen t illness Narrative Images from the original note were not included. Chief Complaint: This 32 year old male who presents with chief complaint:right great toe pain HPI Patient presents to clinic for evaluation of right great toe pain. Patient has pain to the dorsal lateral aspect of right great toe. Patient states the pain started 3-4 days ago He reports redness to his toe. He thought that maybe he caught his sock wrong and now the pain is incresaing He states that he has difficult time sleeping. He has tried elevating, tylenol, lidocaine epson salts. Nothing is helping He did have mri in the psat that shows cyst He does smoke 3-4 cigarettes/day He is newly diagnosed hiv. PAIN EVALUATION 01/28/2023 1112 Pain Level: 10 Pain Location: Toe Description: Pressure;Sharp feels like toe is in a vice Duration Amount of Time: 4 Duration Units: Days Frequency: Continuous Intervention/Comfort measure: Medication;Relaxation;Reposition No results found for: HBA1C PCP: No primary care provider on file. No past medical history on file. Current Outpatient Medications Medication Sig BIKTARVY 50-200-25 mg per tablet Take 1 tablet by mouth every afternoon. Omeprazole Magnesium 20 mg tablet Take by mouth. Lactobac no.41/Bifidobact no.7 (PROBIOTIC-10 ORAL) cholecalciferol (VITAMIN D3) 1,000 unit tab tablet albuterol HFA (PROVENTIL HFA, VENTOLIN HFA) 90 mcg/actuation inhaler Inhale as instructed. No current facility-administered medications for this visit. ALLERGIES Allergen Reactions Antihistimine Mental Status Change Metoclopramide Mental Status Change, Other: See Comments Prochlorperazine Mental Status Change, Other: See Comments Shellfish Derived Diarrhea No past surgical history on file. No family history on file. Social History Tobacco Use Smoking status: Every Day Packs/day: 0.25 Types: Cigarettes Smokeless tobacco: Never Vaping Use Vaping Use: Never used Substance Use Topics Alcohol use: Not Currently Comment: rarely Drug use: Never REVIEW OF SYSTEMS GENERAL: Negative for Malaise, significant weight loss, fever RESPIRATORY: Negative for cough, wheezing and shortness of breath CARDIOVASCULAR: Negative for chest pain, leg swelling and palpitations GI: Negative for abdominal discomfort, blood in stools or black stools and change in bowel habits : Negative for dysuria, frequency and incontinence MUSCULOSKELETAL: Negative for joint pain or swelling, back pain, and muscle pain. SKIN: Negative for lesions, rash, and itching. HEMATOLOGY/LYMPHOLOGY Negative for prolonged bleeding, bruising easily, and swollen nodes. ENDOCRINE: Negative for cold or heat intolerance, polyuria, polydipsia and goiter. NEURO: negative Physical Exam: Constitutional: Pt is a well developed 32 year old male who is alert, oriented and cooperative Eyes: Following during examination. No redness or drainage. Respiratory: RR normal and nonlabored. Even breathing. No evidence of distress or shortness of breath. Psychology: Patient is engaged during conversation. Normal affect and mood. Does not appear depressed or anxious during encounter. Vascular: Dorsalis pedis and posterior tibial pulses palpable as b/l Capillary Fill time < 5 seconds to digits 1-5 b/l Skin temperature warm to warm proximal to distal b/l Hair growth present to digits Neurological: intact light touch/epicritic sensation b/l intact protective sensation no significant neurological deficits Dermatological: Nails 1-5 b/l appear normal. Webspaces clean and dry 1-4 b/l. Skin appears well hydrated and supple. good color, texture, turgor. No open lesions present. No callosities present. Musculoskeletal/Orthopaedic: Patient has pain to palpation of right lateral hallux ipj Foot type is neutral structurally AJ ROM is full with knee extended and flexed 1st MPJ is full when loaded and no pain or crepitus are noted with ROM. MTJ, STJ are full and free of pain and crepitus. +5/5 muscle strength dorsiflexion, plantarflexion, inversion, eversion b/l Radiographs: ordered ASSESSMENT: (M79.674) Pain of toe of right foot (primary encounter diagnosis) (M79.89) Soft tissue mass (L03.031, L02.611) Cellulitis and abscess of toe of right foot PLAN: Discussed pain in right hallux. Patient has pain particularly to the lateral aspect of right hallux ipj. I reviewd past xrays and mri and he does have calcification of the periarticular aspect of right lateral ipj. He does have some redness and swelling of the right hallux. I did elevate the right lower extremity and the redness did resolve. Differentials include inflammatory arthritis vs cellulitis from proximal fold ingrown. I discussed options not limited to starting patient on prophylactic antibiotic vs partial vs total nail avulsion. With elevation, all redness resolves and there is no drainage from the toenail. I do feel that some of the redness and swelling stem from arthirtis of right hallux ipj. For this reason, I would like to obtain xrays. I will contact patient with results of xrays. If condition fails to improve, could consider having patient come in for nail procedure. Will call with results. Tj Sorto DPM Podiatry [address] [facility] [address] Dept: [phone] Dept AMB ROOMING INTAKE FLOWSHEET DATA Pain Pain Level: 10 Pain Location: Toe Description: Pressure, Sharp ( feels like toe is in a vice ) Duration Amount of Time: 4 Duration Units: Days Frequency: Continuous Intervention/Comfort measure: Medication, Relaxation, Reposition Patient presents with: Right Great Toe - Established Patient, Follow Up, Pain, Swelling Patient presents for redness and pain to Right big toe that began a few days ago. Patient states that pain is unbearable sometimes and it is hard for him to sleep. Has tried soaking it, Taking Tylenol and Motrin and nothing has helped. Was seen In July for this. MRI showed mild bone marrow edema and calcification. documented in this encounter [facility] 08-01-2022 Note HNO ID: [id number] Author: RT Fabrizio(R) Service: ? Author Type: Technologist Type: Progress Notes Filed: 08/01/2022 2:49 PM Note Text: Radiology Service Progress Note DATE OF SERVICE: August 01, 2022 TIME: 2:49 PM PATIENT IDENTITY VERIFICATION COMPLETED USING TWO (2) STANDARD IDENTIFIERS: Name and Date of confirmed by patient verbally. FALL SCREENING: Has the patient had 2 falls in the last year or 1 fall with injury or currently using an Ambulatory Assistive Device (Walker, Cane, Wheelchair, Crutches, etc.)? No PATIENT GENDER DATA: Male PATIENT RELEVANT IMPLANT DATA REVIEWED: Yes ALLERGIES: Reviewed and unchanged CONTRAST ALLERGY: NO. EXAM: MRI - CONTRAST TYPE: GROUP II PERIPHERAL IV DATA: Ambulatory: A peripheral IV was started in the Right antecubital site with a Angio cath: 22 gauge. RADIOLOGY DEPARTMENT: MR; Exam(s) Completed: Lower MSK: Forefoot/Midfoot, right SIGNATURE: RT Fabrizio(R) PATIENT NAME: Faustino Cuellar DATE: August 01, 2022 TIME: 2:49 PM [facility] 08-01-2022 History of Presen t illness Narrative Radiology Service Progress Note DATE OF SERVICE: August 01, 2022 TIME: 2:49 PM PATIENT IDENTITY VERIFICATION COMPLETED USING TWO (2) STANDARD IDENTIFIERS: Name and Date of confirmed by patient verbally. FALL SCREENING: Has the patient had 2 falls in the last year or 1 fall with injury or currently using an Ambulatory Assistive Device (Walker, Cane, Wheelchair, Crutches, etc.)? No PATIENT GENDER DATA: Male PATIENT RELEVANT IMPLANT DATA REVIEWED: Yes ALLERGIES: Reviewed and unchanged CONTRAST ALLERGY: NO. EXAM: MRI - CONTRAST TYPE: GROUP II PERIPHERAL IV DATA: Ambulatory: A peripheral IV was started in the Right antecubital site with a Angio cath: 22 gauge. RADIOLOGY DEPARTMENT: MR; Exam(s) Completed: Lower MSK: Forefoot/Midfoot, right SIGNATURE: RT Fabrizio(R) PATIENT NAME: Faustino Cuellar DATE: August 01, 2022 TIME: 2:49 PM documented in this encounter [facility] 07-25-2022 Note HNO ID: [id number] Author: Radha Kuhn RN Service: ? Author Type: Registered Nurse Type: Progress Notes Filed: 07/25/2022 8:50 AM Note Text: Per Dr. Sorto, Faustino was provided with Gel Powerstep inserts, size 9-10.5M, and instructed/educated in its application, wear, and care. All questions were answered, and patient was able to demonstrate competence with the necessary skills to utilize the above equipment. Radha Kuhn RN [facility] 07-25-2022 Note HNO ID: [id number] Author: Tj Leesmatty Service: ? Author Type: Physician Type: Progress Notes Filed: 07/25/2022 8:37 AM Note Text: Consultation requested by Dr. Mcgill for an opinion regarding right great toe pain. My final recommendations will be communicated back to the requesting physician by way of shared Medical record or letter to requesting physician via US mail. Initial Podiatric Office Visit: Chief Complaint: This 31 year old male who presents with chief complaint:right great toe pain HPI Patient presents to clinic for evaluation of right foot He complains of a dull ache to his right hallux ipj that has been present since April. Patient states that the pain first developed after he tripped over a pallet at work. When the pain failed to ease up, he presented to urgent care where xrays were taken and were negative for fracture. Patient does take alleve vs tylenol for the pain which does provide some relief. He has had to change the way he walks because of the pain. PAIN EVALUATION 07/25/2022 0810 Pain Level: 10 Pain Location: Foot-Right Description: Sharp;Stabbing Duration Amount of Time: 4 Duration Units: Months Frequency: Intermittent Intervention/Comfort measure: Reposition;Relaxation;Medication No results found for: HBA1C PCP: No Pcp No past medical history on file. Current Outpatient Medications Medication Sig Omeprazole Magnesium 20 mg tablet Take by mouth. Lactobac no.41/Bifidobact no.7 (PROBIOTIC-10 ORAL) cholecalciferol (VITAMIN D3) 1,000 unit tab tablet albuterol HFA (PROVENTIL HFA, VENTOLIN HFA) 90 mcg/actuation inhaler Inhale as instructed. No current facility-administered medications for this visit. ALLERGIES Allergen Reactions Antihistimine Mental Status Change No past surgical history on file. No family history on file. Social History Tobacco Use Smoking status: Every Day Packs/day: 0.50 Types: Cigarettes Smokeless tobacco: Never Vaping Use Vaping Use: Never used Substance Use Topics Alcohol use: Yes Comment: rarely Drug use: Never REVIEW OF SYSTEMS GENERAL: Negative for Malaise, significant weight loss, fever RESPIRATORY: Negative for cough, wheezing and shortness of breath CARDIOVASCULAR: Negative for chest pain, leg swelling and palpitations GI: Negative for abdominal discomfort, blood in stools or black stools and change in bowel habits : Negative for dysuria, frequency and incontinence MUSCULOSKELETAL: + right hallux pain SKIN: Negative for lesions, rash, and itching. HEMATOLOGY/LYMPHOLOGY Negative for prolonged bleeding, bruising easily, and swollen nodes. ENDOCRINE: Negative for cold or heat intolerance, polyuria, polydipsia and goiter. NEURO: negative Physical Exam: Constitutional: Pt is a well developed 31 year old male who is alert, oriented and cooperative Eyes: Following during examination. No redness or drainage. Respiratory: RR normal and nonlabored. Even breathing. No evidence of distress or shortness of breath. Psychology: Patient is engaged during conversation. Normal affect and mood. Does not appear depressed or anxious during encounter. Vascular: Dorsalis pedis and posterior tibial pulses faintly palpable as b/l Capillary Fill time < 5 seconds to digits 1-5 b/l Skin temperature warm to cool proximal to distal b/l Hair growth present to digits Neurological: intact light touch/epicritic sensation b/l intact protective sensation no significant neurological deficits Dermatological: Nails 1-5 b/l appear normal. Webspaces clean and dry 1-4 b/l. Skin appears well hydrated and supple. good color, texture, turgor. No open lesions present. No callosities present. Musculoskeletal/Orthopaedic: Patient has pain to palpation of the lateral aspect of right hallux ipj. There is palpable soft-tissue calcification to lateral aspect of right hallux ipj Foot type is neutral structurally AJ ROM is full with knee extended and flexed 1st MPJ is full when loaded and no pain or crepitus are noted with ROM. ROM of right hallux ipj is decreased compared to left hallux ipj MTJ, STJ are full and free of pain and crepitus. +5/5 muscle strength dorsiflexion, plantarflexion, inversion, eversion b/l Radiographs: 3 views right foot reviewed July 25, 2022: I have personally reviewed and interpreted these XR myself: there is hallux ipj sesamoid. There is calcification of plantar lateral aspect of right hallux ipj ASSESSMENT: (M79.89) Soft tissue mass (primary encounter diagnosis) (M79.674) Pain of toe of right foot (R09.89) Diminished pulses in lower extremity (R22.41) Mass of right foot PLAN: 1. History and physical examination performed. 2. XR reviewed with patient and interpreted today 3. Discussed pain in right hallux ipj. He does have hallux ipj sesamoid but I can definitately feel a soft-tissue calcification of the lateral aspect of right hallux ipj. Th (more content not included)... [facility] 07-25-2022 Note HNO ID: [id number] Author: Shantel Luna LPN Service: ? Author Type: LICENSED NURSE Type: Progress Notes Filed: 07/25/2022 8:37 AM Note Text: AMB ROOMING INTAKE FLOWSHEET DATA Risk Screening Do you have concerns about personal safety or safety in the home?: No Pain Pain Level: 10 Pain Location: Foot-Right Description: Sharp, Stabbing Duration Amount of Time: 4 Duration Units: Months Frequency: Intermittent Intervention/Comfort measure: Reposition, Relaxation, Medication Patient presents with: Right Foot - New, Pain, Swelling Shantel Luna LPN [facility] 07-25-2022 History of Presen t illness Narrative Per Dr. Sorto, Faustino was provided with Gel Powerstep inserts, size 9-10.5M, and instructed/educated in its application, wear, and care. All questions were answered, and patient was able to demonstrate competence with the necessary skills to utilize the above equipment. Radha Kuhn RN Consultation requested by Dr. Mcgill for an opinion regarding right great toe pain. My final recommendations will be communicated back to the requesting physician by way of shared Medical record or letter to requesting physician via [place] mail. Initial Podiatric Office Visit: Chief Complaint: This 31 year old male who presents with chief complaint:right great toe pain HPI Patient presents to clinic for evaluation of right foot He complains of a dull ache to his right hallux ipj that has been present since April. Patient states that the pain first developed after he tripped over a pallet at work. When the pain failed to ease up, he presented to urgent care where xrays were taken and were negative for fracture. Patient does take alleve vs tylenol for the pain which does provide some relief. He has had to change the way he walks because of the pain. PAIN EVALUATION 07/25/2022 0810 Pain Level: 10 Pain Location: Foot-Right Description: Sharp;Stabbing Duration Amount of Time: 4 Duration Units: Months Frequency: Intermittent Intervention/Comfort measure: Reposition;Relaxation;Medication No results found for: HBA1C PCP: No Pcp No past medical history on file. Current Outpatient Medications Medication Sig Omeprazole Magnesium 20 mg tablet Take by mouth. Lactobac no.41/Bifidobact no.7 (PROBIOTIC-10 ORAL) cholecalciferol (VITAMIN D3) 1,000 unit tab tablet albuterol HFA (PROVENTIL HFA, VENTOLIN HFA) 90 mcg/actuation inhaler Inhale as instructed. No current facility-administered medications for this visit. ALLERGIES Allergen Reactions Antihistimine Mental Status Change No past surgical history on file. No family history on file. Social History Tobacco Use Smoking status: Every Day Packs/day: 0.50 Types: Cigarettes Smokeless tobacco: Never Vaping Use Vaping Use: Never used Substance Use Topics Alcohol use: Yes Comment: rarely Drug use: Never REVIEW OF SYSTEMS GENERAL: Negative for Malaise, significant weight loss, fever RESPIRATORY: Negative for cough, wheezing and shortness of breath CARDIOVASCULAR: Negative for chest pain, leg swelling and palpitations GI: Negative for abdominal discomfort, blood in stools or black stools and change in bowel habits : Negative for dysuria, frequency and incontinence MUSCULOSKELETAL: + right hallux pain SKIN: Negative for lesions, rash, and itching. HEMATOLOGY/LYMPHOLOGY Negative for prolonged bleeding, bruising easily, and swollen nodes. ENDOCRINE: Negative for cold or heat intolerance, polyuria, polydipsia and goiter. NEURO: negative Physical Exam: Constitutional: Pt is a well developed 31 year old male who is alert, oriented and cooperative Eyes: Following during examination. No redness or drainage. Respiratory: RR normal and nonlabored. Even breathing. No evidence of distress or shortness of breath. Psychology: Patient is engaged during conversation. Normal affect and mood. Does not appear depressed or anxious during encounter. Vascular: Dorsalis pedis and posterior tibial pulses faintly palpable as b/l Capillary Fill time < 5 seconds to digits 1-5 b/l Skin temperature warm to cool proximal to distal b/l Hair growth present to digits Neurological: intact light touch/epicritic sensation b/l intact protective sensation no significant neurological deficits Dermatological: Nails 1-5 b/l appear normal. Webspaces clean and dry 1-4 b/l. Skin appears well hydrated and supple. good color, texture, turgor. No open lesions present. No callosities present. Musculoskeletal/Orthopaedic: Patient has pain to palpation of the lateral aspect of right hallux ipj. There is palpable soft-tissue calcification to lateral aspect of right hallux ipj Foot type is neutral structurally AJ ROM is full with knee extended and flexed 1st MPJ is full when loaded and no pain or crepitus are noted with ROM. ROM of right hallux ipj is decreased compared to left hallux ipj MTJ, STJ are full and free of pain and crepitus. +5/5 muscle strength dorsiflexion, plantarflexion, inversion, eversion b/l Radiographs: 3 views right foot reviewed July 25, 2022: I have personally reviewed and interpreted these XR myself: there is hallux ipj sesamoid. There is calcification of plantar lateral aspect of right hallux ipj ASSESSMENT: (M79.89) Soft tissue mass (primary encounter diagnosis) (M79.674) Pain of toe of right foot (R09.89) Diminished pulses in lower extremity (R22.41) Mass of right foot PLAN: 1. History and physical examination performed. 2. XR reviewed with patient and interpreted today 3. Discussed pain in right hallux ipj. He does have hallux ipj sesamoid but I can definitately feel a soft-tissue calcification of the lateral aspect of right hallux ipj. The etiology of this is unclear. I do feel getting mri of the right foot for further evaluation and to help possibly provide information to render appropriate treatment is necessary. Mri ordered. 4. Will order pvr in the event we have to intervene with surgery. Pvr is necessary as this patient currently smokes 1/2 pack of cigarettes/day and has faint pusles 5. Would recommend he refrain from smoking especially if surgery has to be performed 6. Recommend powerstep gel inserts 7. Will call with results Tj Sorto DPM Podiatry [address] [facility] [address] Dept: [phone] Dept AMB ROOMING INTAKE FLOWSHEET DATA Risk Screening Do you have concerns about personal safety or safety in the home?: No Pain Pain Level: 10 Pain Location: Foot-Right Description: Sharp, Stabbing Duration Amount of Time: 4 Duration Units: Months Frequency: Intermittent Intervention/Comfort measure: Reposition, Relaxation, Medication Patient presents with: Right Foot - New, Pain, Swelling Shantel Luna LPN documented in this encounter [facility] 07-25-2022 Instructions Tj Sorto - 07/25/2022 8:32 AM EST Powerstep Original Full length. Can purchase at [employer] here in [place], [employer] in [place] or [place]. Also can find in [place] in [facility]. Powersteps can also be purchased online, starting around $25.00 If you have a metatarsal or dancer pad for your feet apply the pad directly to the insole so you can interchange between your shoes. Find a shoe with a removable insole and take this out and replace with your powerstep insole. Always bring powersteps with you when shopping for shoes so that you can make sure that everything fits well together documented in this encounter [facility] 06-24-2022 Note Patient Outreach ([facility]) FAUSTINO CUELLAR ([id number]) 1990 M Date Time Provider Department 06/24/22 PCP (HISTORICAL) [facility] During your visit today, we recorded the following information about you: Silverio Adair 06/24/2022 11:13 AM Signed POPULATION HEALTH NAVIGATION OUTREACH Action/FYI Left vm Pt identified by name and : NO Outreach Outcome/Action Unable to reach patient: Left message MyChart message sent Did you use a PCP flex slot to schedule this appointment? No Reason for Outreach Care Gap or Scheduling/Wellness visits Payer: Payor: [place] MEDICAID / Plan: [facility] MEDICAID / Product Type: Medicaid / Care Gap Reviewed:: Specialty Scheduling Reminder: Reminder note to check Health Maintenance for items below Health Maintenance items due: HEPATITIS B(1 of 3 - 3-dose series) Never done COVID-19 VACCINE(1) Never done PNEUMOCOCCAL(1 - PCV) Never done HEPATITIS C SCREENING Never done DTAP,TDAP,TD(1 - Tdap) Never done DEPRESSION ASSESSMENT Never done INFLUENZA(1) Never done Message Sent to Practice: No Navigation Signature: Silverio Adair June 24, 2022 11:12 AM Allergies As of Date: 06/24/2022 Noted Allergy Reaction ANTIHISTIMINE 06/19/2015 1 - Mental Status Change Date Reviewed: 06/19/2022 Reviewed by: Bobbi Nunez MA - Fully Assessed Problem List As Of Date 06/24/2022 Noted Resolved Kidney stone [N20.0] 07/05/2015 Renal cyst [N28.1] 07/05/2015 Penile pain [N48.89] 12/04/2015 Encounter Status:Closed by SILVERIO ADAIR on 06/24/22 [facility] 06-24-2022 Note HNO ID: [id number] Author: Silverio Adair Service: ? Author Type: ? Type: Progress Notes Filed: 06/24/2022 11:13 AM Note Text: POPULATION HEALTH NAVIGATION OUTREACH Action/FYI Left vm Pt identified by name and : NO Outreach Outcome/Action Unable to reach patient: Left message MyChart message sent Did you use a PCP flex slot to schedule this appointment? No Reason for Outreach Care Gap or Scheduling/Wellness visits Payer: Payor: [place] MED[place] / Plan: [facility] / Product Type: Medicaid / Care Gap Reviewed:: Specialty Scheduling Reminder: Reminder note to check Health Maintenance for items below Health Maintenance items due: HEPATITIS B(1 of 3 - 3-dose series) Never done COVID-19 VACCINE(1) Never done PNEUMOCOCCAL(1 - PCV) Never done HEPATITIS C SCREENING Never done DTAP,TDAP,TD(1 - Tdap) Never done DEPRESSION ASSESSMENT Never done INFLUENZA(1) Never done Message Sent to Practice: No Navigation Signature: Silverio Adair June 24, 2022 11:12 AM [facility] 06-24-2022 History of Presen t illness Narrative POPULATION HEALTH NAVIGATION OUTREACH Action/FYI Left vm Pt identified by name and : NO Outreach Outcome/Action Unable to reach patient: Left message MyChart message sent Did you use a PCP flex slot to schedule this appointment? No Reason for Outreach Care Gap or Scheduling/Wellness visits Payer: Payor: [place] MEDICAID / Plan: [facility] MEDICAID / Product Type: Medicaid / Care Gap Reviewed:: Specialty Scheduling Reminder: Reminder note to check Health Maintenance for items below Health Maintenance items due: HEPATITIS B(1 of 3 - 3-dose series) Never done COVID-19 VACCINE(1) Never done PNEUMOCOCCAL(1 - PCV) Never done HEPATITIS C SCREENING Never done DTAP,TDAP,TD(1 - Tdap) Never done DEPRESSION ASSESSMENT Never done INFLUENZA(1) Never done Message Sent to Practice: No Navigation Signature: Silverio Adair June 24, 2022 11:12 AM documented in this encounter [facility] 06-19-2022 Note HNO ID: [id number] Author: Sammie Morgan RT(R) Service: Radiology Author Type: Technologist Type: Progress Notes Filed: 06/19/2022 1:57 PM Note Text: Radiology Service Progress Note PATIENT NAME: Faustino Cuellar DATE OF SERVICE: June 19, 2022 TIME: 1:50 PM PATIENT IDENTITY VERIFICATION COMPLETED USING TWO (2) IDENTIFIERS: Name and Date of confirmed by patient verbally. FALL SCREENING: Has the patient had 2 falls in the last year or 1 fall with injury or currently using an Ambulatory Assistive Device (Walker, Cane, Wheelchair, Crutches, etc.)? No PATIENT GENDER DATA: Male PATIENT RELEVANT IMPLANT DATA REVIEWED: Yes RADIOLOGY DEPARTMENT: General X-ray: Exam(s) Completed: Lower Extremity X-Ray(s): Toes, Right great PERIPHERAL IV DATA: Not applicable SIGNED BY: RT Gretel(R) June 19, 2022 1:50 PM [facility] 06-19-2022 Note HNO ID: [id number] Author: Kayla Mcgill APRN.SIGNAL TOWER OPERATOR Service: ? Author Type: Nurse Practitioner Type: Progress Notes Filed: 06/19/2022 2:48 PM Note Text: This note was created using [employer]. Subjective Faustino Cuellar is a 31 year old male. 31 year old male with no PMH presents with complaints of right great toe pain. Acute onset one month ago Endorses at that time he had stubbed his toe on a wooden pallet Denies seeking medical treatment at that time, Endorses that the pain is worsening, but with bearing weight. Denies numbness or tingling Denies break in skin integrity. Denies prior history of foot fracture or surgery. The history is provided by the patient. No insole channeler was used. Pain (foot) Pain location: right toe. This is a new problem. The current episode started more than 1 month ago. There has been a history of trauma. The problem occurs constantly. The problem has been gradually worsening. The quality of the pain is described as aching, sharp and pounding. The pain is at a severity of 6/10. The pain is moderate. Pertinent negatives include no fever, inability to bear weight, itching, joint locking, joint swelling, limited range of motion, numbness or stiffness. The symptoms are aggravated by activity. He has tried nothing for the symptoms. The treatment provided no relief. Family history does not include gout or rheumatoid arthritis. There is no history of diabetes, gout, osteoarthritis or rheumatoid arthritis. No past medical history on file. No past surgical history on file. ALLERGIES Antihistimine MEDICATIONS No prescriptions on file. No family history on file. Social History Tobacco Use - Smoking status: Every Day Packs/day: 0.50 Types: Cigarettes - Smokeless tobacco: Never Review of Systems Constitutional: Negative for activity change, appetite change, chills, diaphoresis and fever. Eyes: Negative for photophobia, pain, discharge, redness, itching and visual disturbance. Respiratory: Negative for apnea, cough, choking and chest tightness. Cardiovascular: Negative for chest pain, palpitations and leg swelling. Gastrointestinal: Negative for abdominal pain, diarrhea, nausea and vomiting. Musculoskeletal: Negative for arthralgias, back pain, gait problem, gout and stiffness. Right great toe Skin: Negative for color change, itching, pallor, rash and wound. Allergic/Immunologic: Negative for environmental allergies, food allergies and immunocompromised state. Neurological: Negative for dizziness, facial asymmetry, light-headedness, numbness and headaches. Hematological: Negative for adenopathy. Does not bruise/bleed easily. Psychiatric/Behavioral: Negative for agitation and behavioral problems. Objective BP 120/88 Pulse 120 Temp 36.8 ?C (98.2 ?F) Resp 21 Wt 61.3 kg (135 lb 3.2 oz) SpO2 99% BMI 19.97 kg/m? Physical Exam Vitals and nursing note reviewed. Constitutional: General: He is not in acute distress. Appearance: Normal appearance. He is not ill-appearing, toxic-appearing or diaphoretic. HENT: Head: Normocephalic and atraumatic. Right Ear: External ear normal. Left Ear: External ear normal. Nose: Nose normal. No congestion or rhinorrhea. Cardiovascular: Rate and Rhythm: Normal rate and regular rhythm. Pulses: Normal pulses. Heart sounds: Normal heart sounds. No murmur heard. No friction rub. No gallop. Pulmonary: Effort: Pulmonary effort is normal. No respiratory distress. Breath sounds: Normal breath sounds. No stridor. No wheezing, rhonchi or rales. Chest: Chest wall: No tenderness. Abdominal: General: Abdomen is flat. There is no distension. Palpations: Abdomen is soft. There is no mass. Tenderness: There is no abdominal tenderness. There is no guarding or rebound. Hernia: No hernia is present. Musculoskeletal: General: No swelling, deformity or signs of injury. Normal range of motion. Cervical back: Normal range of motion and neck supple. No rigidity or tenderness. Right lower leg: No edema. Left lower leg: No edema. Comments: Right great toe with full active and passive ROM Skin intact Brisk cap refill No rash +neuro +sensation Lymphadenopathy: Cervical: No cervical adenopathy. Skin: General: Skin is warm and dry. Capillary Refill: Capillary refill takes less than 2 seconds. Coloration: Skin is not jaundiced or pale. Findings: No bruising, lesion or rash. Neurological: General: No focal deficit present. Mental Status: He is alert and oriented to person, place, and time. Cranial Nerves: No cranial nerve deficit. Sensory: No sensory deficit. Motor: No weakness. Coordination: Coordination normal. Gait: Gait normal. Deep Tendon Reflexes: Reflexes normal. Psychiatric: Mood and Affect: Mood normal. Behavior: Behavior normal. Thought Content: Thought content normal. Assessment and Plan ASSESSMENT/PLAN: 1. Pain of toe o (more content not included)... [facility] 07-03-2015 Miscellaneous Notes spk with pt scheduled 07/07 at 11am left vm to call and schedule RADIOLOGIST REQUEST / APPROVAL FORM STAFF RADIOLOGIST: PROCEDURE TO BE DONE UNDER: CT PROCEDURE REQUESTED: Aspiration Requested PROCEDURE: Approved TIME SLOT NEEDED: 1 hour NOTES: TELL THE PATIENT WE MA NOT BE ABLE TO DO IT IF WE CANT FIND A SAFE APPROACH. Need to put the patient lateral and see if there is a safe approach before we can attempt. Pt has pain and they want to see if aspiration relieves the pain before they agree to do surgery. SPECIAL LABS/ PROCESSING: None STAFF SIGNATURE: Greg Tong MD PHD DATE: June 30, 2015 TIME: 9:59 AM . BX. COORDINATOR INFORMATION LAB RESULTS: No results found for this basename: INR No results found for this basename: APTT No results found for this basename: plt No current outpatient prescriptions on file. Review of patient's allergies indicates: Antihistimine Mental Status Change FILMS SENT TO WORKSTATION: GUIDELINES FOR HOLDING ANTI-PLATELET AND ANTI- COAGULATION THERAPY: none on file NURSE SIGNATURE: Svitlana Jimenez LPN DATE: June 29, 2015 TIME: 3:28 PM RADIOLOGY CALL CENTER INTAKE PUBLICIST: GILBERT EXT:[id number] DATE: June 29, 2015 TIME: 12:16 PM TRACKING #. [id number] REQUESTING PERSON: BARRON PHONE/PAGER: [phone] REQUESTING STAFF: SERGE DAVIS PHONE/PAGER: [phone] ORDERING DESK LOCATION: Q10 If inpatient, patient location: N/A (Note: requests for inpatient's procedures should be given to the O.D. 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 Does the patient have a known cancer? Ask for the site of any known primary cancer, or is it unknown primary or new diagnosis. If no information, ask for a suspected diagnosis as a reason for the biopsy) TYPE AND DATE OF THE EXAM THAT IS THE BASIS OF THE REQUEST: CT Date: 06-08-2015 (Note: Requests for random organ biopsies, specifically liver and kidney random biopsies do not need imaging.) IMAGING: OUTSIDE [facility] Films: Where is study now: LOADED INTO [employer] (If the imaging was obtained outside the [facility] system, then it needs to be submitted for review prior to approval.) Note to all persons requesting biopsies: All biopsy requests will be scheduled as quickly as possible, based on the clinical urgency, availability of appointment times, the need to hold anti-thrombolytic therapy (aspirin, blood thinners) and the patient s schedule, including the need for an available local tanker truck driver. If a percutaneous biopsy or drainage is not felt to be safe or an alternative method for establishing a diagnosis is possible, this will be discussed directly with the requesting physician. documented in this encounter [facility] Diagnosis Pain of toe of right foot- Primary Pain in limb Soft tissue mass Disorders of soft tissue, unspecified Cellulitis and abscess of toe of right foot [facility] Diagnosis Mass of right foot [facility] Diagnosis Pain of toe of right foot Pain in limb Soft tissue mass Disorders of soft tissue, unspecified documented in this encounter [facility] for referral (narrative)* Diagnostic Procedure Only (Routine) - Closed Specialty Diagnoses / Procedures Referred By Contac t Referred To Contact XR IMAGING Diagnoses Pain of toe of right foot Soft tissue mass Procedures XR TOE AP/LAT/OBL RIGHT RADEX TOE MINIMUM [address] [place] [address] Xr Imaging Referral ID Status Reason Start Date Expiration Date V isits Requested Visits Authorized [id number] Closed Auto-Generate d Referral 01/28/2023 02/27/2024 1 1 T [facility] for referral (narrative)* Diagnostic Procedure Only (Routine) - Closed Specialty Diagnoses / Procedures Referred By Contac t Referred To Contact XR IMAGING Diagnoses Pain of toe of right foot Soft tissue mass Procedures XR TOE AP/LAT/OBL RIGHT RADEX TOE MINIMUM 2 [place] [place] [address] [place] [id number] Referral ID Status Reason Start Date Expiration Date V isits Requested Visits Authorized [id number] Closed Auto-Generate d Referral 01/28/2023 02/27/2024 1 1 T [facility] for visit Narrative* Diagnostic Procedure Only (Routine) - Closed Specialty Diagnoses / Procedures Referred By Contac t Referred To Contact XR IMAGING Diagnoses Pain of toe of right foot Soft tissue mass Procedures XR TOE AP/LAT/OBL RIGHT RADEX TOE MINIMUM 2 [address]WS [place] [address] [place] [id number] Referral ID Status Reason Start Date Expiration Date V isits Requested Visits Authorized [id number] Closed Auto-Generate d Referral 01/28/2023 02/27/2024 1 1 [facility] Reason for Referral Specialty Diagnoses / Procedures Referred By Contac t Referred To Contact MR IMAGING Diagnoses Mass of right foot Procedures MRI FOOT/TOES WO/W IVCON RT MRI LOWER EXTREM OTH/THN JT W/O & W[facility] [address] [place] [address] Mr Imaging Referral ID Status Reason Start Date Expiration Date Visits Requested Visits Authorized [id number] Authorized Auto-Generat ed Referral 07/25/2022 2022 1 1 Specialty Diagnoses / Procedures Referred By Contac t Referred To Contact [facility] Diagnoses Soft tissue mass Diminished pulses in lower extremity Mass of right foot Procedures PVR ANK PRESS NOMAN VAS LAB NON-INVAS PHYSIOLOGIC STD EXTREMITY ART 2 [place] [address] [facility] [place] [address] [place] [address] Referral ID Status Reason Start Date Expiration Date Visits Requested Visits Authorized [id number] Authorized Auto-Generat ed Referral 07/25/2022 07/25/2023 1 1 Specialty Diagnoses / Procedures Referred By Contac t Referred To Contact MR IMAGING Diagnoses Mass of right foot Procedures MRI FOOT/TOES WO/W IVCON RT MRI LOWER EXTREM OTH/THN JT W/O & W/CONTR [facility] Tj Sorto [address] [place] [address] [place] [id number] Referral ID Status Reason Start Date Expiration Date V isits Requested Visits Authorized [id number] Closed Auto-Generate d Referral 07/25/2022 2022 1 1 Summary Purpose Family History No Family History Records FoundNo Family History Records Found Advance Directives No Advanced Directives Records FoundNo Advanced Directives Records Found Additional Source Comments Source Comments (unrecognize d section and content) In the event this informatio n is protected by the Federal Confidentiality of Alcohol and Drug Abuse Patient Records regulations: The Federal rules restrict any use of the information to criminally investigate or prosecute any alcohol or drug abuse patient.[facility] the event this information is protected by the Federal Confidentiality of Alcohol and Drug Abuse Patient Records regulations: The Federal rules restrict any use of the information to criminally investigate or prosecute any alcohol or drug abuse patient.[facility] the event this information is protected by the Federal Confidentiality of Alcohol and Drug Abuse Patient Records regulations: The Federal rules restrict any use of the information to criminally investigate or prosecute any alcohol or drug abuse patient.[facility] the event this information is protected by the Federal Confidentiality of Alcohol and Drug Abuse Patient Records regulations: The Federal rules restrict any use of the information to criminally investigate or prosecute any alcohol or drug abuse patient.[facility] the event this information is protected by the Federal Confidentiality of Alcohol and Drug Abuse Patient Records regulations: The Federal rules restrict any use of the information to criminally investigate or prosecute any alcohol or drug abuse patient.[facility] the event this information is protected by the Federal Confidentiality of Alcohol and Drug Abuse Patient Records regulations: The Federal rules restrict any use of the information to criminally investigate or prosecute any alcohol or drug abuse patient.[facility] the event this information is protected by the Federal Confidentiality of Alcohol and Drug Abuse Patient Records regulations: The Federal rules restrict any use of the information to criminally investigate or prosecute any alcohol or drug abuse patient.[facility] the event this information is protected by the Federal Confidentiality of Alcohol and Drug Abuse Patient Records regulations: The Federal rules restrict any use of the information to criminally investigate or prosecute any alcohol or drug abuse patient.[facility] the event this information is protected by the Federal Confidentiality of Alcohol and Drug Abuse Patient Records regulations: The Federal rules restrict any use of the information to criminally investigate or prosecute any alcohol or drug abuse patient.[facility] the event this information is protected by the Federal Confidentiality of Alcohol and Drug Abuse Patient Records regulations: The Federal rules restrict any use of the information to criminally investigate or prosecute any alcohol or drug abuse patient.[facility] Reason for Visit (unrecogniz ed section and content) Reason Comments New Pain Swelling Specialty Diagnoses / Procedures Referred By Contac t Referred To Contact Podiatry Diagnoses Pain of toe of right foot Procedures CONSULT TO PODIATRY OFFICE/OUTPATIENT NEW HIGH MDM 60-74 MINUTES Kayla Mcgill, BUSINESS SUPPORT MANAGER.SIGNAL TOWER OPERATOR [address] [place] [address] Referral ID Status Reason Start Date Expiration Date V isits Requested Visits Authorized [id number] Closed PCP Requested Referral 06/19/2022 06/19/2023 1 1 Reason Comments Orders Reason Comments Patient Update Reason Comments Established Patient Follow Up Pain Swelling Specialty Diagnoses / Procedures Referred By Contac t Referred To Contact MR IMAGING Diagnoses Mass of right foot Procedures MRI FOOT/TOES WO/W IVCON RT MRI LOWER EXTREM OTH/THN JT W/O & W/CONTR [facility] [place], Tj [address] [place] [address] [place] [id number] Referral ID Status Reason Start Date Expiration Date V isits Requested Visits Authorized [id number] Closed Auto-Generate d Referral 07/25/2022 2022 1 1 Care Teams (unrecognized sec tion and content) Criminal Investigative Agent Relationship Specialty Start Date End Date Pcp, No PCP - General 02/02/22 08/20/22 Criminal Investigative Agent Relationship Specialty Start Date End Date Pcp, No, BUSINESS SUPPORT MANAGER PCP - General 02/02/22 08/20/22 (unrecognized sect ion and content) No Status Records FoundNo Status Records Found INFORMATION SOURCE (unrecogn ized section and content) DATE CREATED AUTHOR AUTHOR'S ORGANIZ ATION 04/23/2023 [facility] FOR RECORDS PERTAINING TO PATIENTS WHO ARE OR HAVE BEEN ENROLLED IN A CHEMICAL DEPENDENCY/SUBSTANCEABUSE PROGRAM, SOME INFORMATION MAY BE OMITTED. This clinical summary was aggregated from multiple sources. Caution should be exercised in using it in the provision of clinical care. This summary normalizes information from multiple sources, and as a consequence, information in this document may materially change the coding, format and clinical context of patient data. In addition, data may be omitted in some cases. CLINICAL DECISIONS SHOULD BE BASED ON THE PRIMARY CLINICAL RECORDS. [employer] [facility]. provides no warranty or guarantee of the accuracy or completeness of information in this document.
[2023-08-01] MEDS: Diphth,Pertuss(Acell),Tet Vac 0.5 ML Vial IM (02:47)
[2023-08-01] MEDS: Lidocaine/Epi/Tetracaine 50 ML 1 APPLIC TOPICAL (02:49)
[2023-08-01] MEDS: Albuterol Sulfate 8 gm Inhaler (60 puffs) 2 PUFF INHALATION (03:35)
[2023-08-01] MEDS: Amox/Clavulanate 875 MG Tablet PO (03:35)
[2023-08-01 03:48] VITALS: BP 125/60; PULSE 87; RESP 18; O2SAT 96
== END 2023-08-01 03:59 | disposition home or self-care (01) ==
PROVIDERS: Emergency Provider Emergency Medicine; Visit Provider Emergency Medicine
DX: S01.81XA Laceration without foreign body of other part of head, initial encounter (principal); B20 Human immunodeficiency virus [HIV] disease; F17.210 Nicotine dependence, cigarettes, uncomplicated; W54.0XXA Bitten by dog, initial encounter; Z85.09 Personal history of malignant neoplasm of other digestive organs; K21.9 Gastro-esophageal reflux disease without esophagitis; Z79.899 Other long term (current) drug therapy; Z23 Encounter for immunization
CPT/HCPCS: 12011; 90471; 90715; 99284

== ENCOUNTER 2023-08-06 15:11 | Emergency (ER) | payer MEDICAID, SELFPAY ==
[2023-08-06 15:12] VITALS: BP 148/97; PULSE 125; RESP 16; TEMP 36.3; O2SAT 99; BMI 22.4
--- NOTE | 2023-08-06 19:22 | EX.ED.DYSGE1 ---
HPI History of Present Illness Chief Complaint: Bite Informant: patient Narrative Narrative: Patient presents for evaluation of dog bite on his face. He was bitten by dog on August 01 and presented here for evaluation. He had a laceration on his face sutured at that time. Patient states he had a lot of dried blood in his woodson. He has been cleaning this out and noted a laceration in his woodson line. When he was cleaning it he tasted some soap in his mouth and was concerned that it communicated through to the inside of his mouth. He was treated with antibiotics and has been taking those. [facility] Medical History Acid reflux Asthma Cancer of intestinal tract Depression HIV (human immunodeficiency virus infection) Hypertension Polycystic kidney disease Home Medications omeprazole 20 mg tablet,delayed release 20 mg PO DAILY 01/19/22 [History Last Taken Unknown] bictegravir 50 mg-emtricitabine 200 mg-tenofovir alafenam 25 mg tablet (Biktarvy) 1 tab PO DAILY 11/25/22 [History Last Taken 01/18/23] cholecalciferol (vitamin D3) 25 mcg (1,000 unit) capsule (Vitamin D3) 25 mcg PO BID 11/25/22 [History Last Taken Unknown] naproxen 500 mg tablet (Naprosyn) 500 mg PO BID PRN pain #20 tabs 06/10/23 [Rx Last Taken Unknown] albuterol 90 mcg/actuation aerosol inhaler 90 mcg inhalation Q4H PRN PRN sob 08/01/23 [History Last Taken Unknown] albuterol sulfate 90 mcg/actuation aerosol inhaler (ProAir HFA) 2 puff inhalation Q6H PRN shortness of breath or wheezing #6.7 grams 08/01/23 [Rx Last Taken Unknown] amoxicillin 875 mg-potassium clavulanate 125 mg tablet 1 tab PO BID #14 tabs 08/01/23 [Rx Last Taken Unknown] Allergy/AdvReac Type Severity Reaction Status Date / Time meloxicam [From Mobic] Allergy Severe Anaphylaxis Verified 08/01/23 02:22 metoclopramide [From Reglan] Allergy Other Verified 08/01/23 02:22 Antihistamines - Alkylamine AdvReac Other Verified 08/01/23 02:22 Antihistamines - Ethanolamine AdvReac Other Verified 08/01/23 02:22 Antihistamines - AdvReac Other Verified 08/01/23 02:22 Ethylenediamine Antihistamines - Piperazine AdvReac Other Verified 08/01/23 02:22 Antihistamines - Piperidine AdvReac Other Verified 08/01/23 02:22 prochlorperazine AdvReac Other Verified 08/01/23 02:22 shellfish derived AdvReac Abd Verified 08/01/23 02:22 cramps/diarrhea Surgical History H/O wrist surgery History of bowel resection Hx of tonsillectomy Social History household members: none housing: homeless Smoking Status: Current every day smoker tobacco type: cigarettes substance use type: does not use ROS ROS ED Constitutional Constitutional ED: Denies chills or fever(s) Eyes Eyes: Denies discharge from eye(s) ENT ENT ED: Denies discharge from eye(s), rhinorrhea or sore throat Cardiovascular Cardiovascular: Denies chest pain Respiratory/Chest Respiratory/Chest: Denies cough or dyspnea Gastrointestinal Gastrointestinal: Denies abdominal pain, nausea or vomiting Musculoskeletal Musculoskeletal: Denies back pain or extremity pain Integumentary Reports other Details: Facial laceration ; Denies Abrasions or rash Neurologic Neurologic: Denies headache(s) or weakness Psychiatric Psychiatric: Denies anxiety or depression Allergic/Immunologic Allergic/Immunologic ED: Denies lip swelling or urticaria EXAM Physical Exam Const Vital Signs: 08/06/23 15:12 Temperature 97.4 F L Temperature Source Temporal Pulse Rate 125 H Respiratory Rate 16 Blood Pressure 148/97 H Blood Pressure Mean 114 Pulse Ox 99 Oxygen Delivery Method Room Air Positive well nourished and well developed General Appearance ED: well developed HEENT HEENT Narrative: 8 mm long laceration with scab in place along the right mandible. No active bleeding. No palpable fluid collection or abscess. No erythema. Intraoral examination does not reveal any definite evidence of communication. Eyes EOMs intact bilaterally Chest Wall inspection of chest normal and palpation of chest normal Resp normal respiratory effort and clear to auscultation bilaterally Cardio regular rate and regular rhythm GI non-tender Palpation: soft Extremity normal to inspection Neuro oriented x3 and no sensory deficits noted Motor Exam: strength 5/5 throughout Psych mental status grossly normal Skin Skin Narrative: Facial laceration as noted above. In addition to this, patient has a well-healing laceration on the right maxilla with no evidence of infection. MDM MDM MDM Narrative Medical decision making narrative: I advised the patient that this laceration appears to be healing well. I do not think it would be in his benefit to open the wound for further cleaning as there is no evidence of infection at this time. He has been on appropriate antibiotics. He was encouraged to continue the full course of antibiotics. Return instructions provided. Discharge Plan Triage Chief Complaint: Bite ED Provider: Tri Larios Dx/Rx/DC Orders Clinical Impression: Dog bite Instructions: ED Dog Bite Prescriptions: No Action omeprazole 20 mg Tablet,Delayed Release (Dr/Ec) 20 mg PO DAILY Biktarvy 50-200-25 mg Tablet 1 tab PO DAILY cholecalciferol (vitamin D3) [Vitamin D3] 25 mcg (1,000 unit) Capsule 25 mcg PO BID naproxen [Naprosyn] 500 mg tablet 500 mg PO BID PRN (Reason: pain) Qty: 20 0RF albuterol 90 mcg/actuation aerosol 90 mcg inhalation Q4H PRN PRN (Reason: sob) amoxicillin-pot clavulanate 875-125 mg tablet 1 tab PO BID Qty: 14 0RF albuterol sulfate [ProAir HFA] 90 mcg/actuation HFA aerosol inhaler 2 puff inhalation Q6H PRN (Reason: shortness of breath or wheezing) Qty: 6.7 3RF Primary Care Provider: Care Physician,No Primary Referrals: Care Physician,No Primary [Primary Care Provider] - Disposition Disposition: Home, Self Care Discharge Date/Time: 08/06/23 19:31 Capacity Legal Nurse Ldr Reflex Medical hold order details:: IF a medical hold is selected below, a suggested order for a MEDICAL HOLD will reflex upon signing the document. Next of kin: [place] law dictates a PRIORITY LIST for identifying legal decision-maker/legal next of kin in the following order (LNOK): 1st: The patient?s legal guardian, if any 2nd: The patient's spouse (if status is questionable, consult Risk Management) 3rd: The patient?s adult child(jose) (majority, if multiple children) 4th: The patient?s parents 5th: The patient?s adult siblings (majority, if multiple children siblings)
--- OUTSIDE RECORDS SUMMARY | 2023-08-06 19:30 | XMS RPT_ITS | CCD ---
Author Name Unknown Address [address] [place] [address] Organization [facility] Care Team Providers Care Clinical Analyst Name Role Phone Ronni Landaverde Primary Care Provider [phone] Pcp, No Primary Care Provider Unavailabl e Unavailable Primary Care Provider Unavailabl e TESTRAKE, TJ Referring Unavailable TESTRAKE, TJ Referring Unavailable MCGILL, KAYLA Referring Unavailable TESTRAKE, TJ Attending Unavailable TESTRAKE, TJ Attending Unavailable MCGILL, KAYLA Referring Unavailable TESTRAKE, TJ Referring Unavailable TAPIO, PATRICIA Admitting Unavailable TAPIO, PATRICIA Attending Unavailable TAPIO, PATRICIA Consulting Unavailable Pcp CHAIR INSPECTOR, No Primary Care Provider Unavailabl e Allergies Allergy Classification Reported Allergen(s) Allergy Type Date of Onset Reaction(s) Facility Unclassified (12 sources) Antihistimine; Translations: [ANTIHISTIMINE] Drug Allergy 06-19-2015 Mental Status Change [facility] (8 sources) Metoclopramide; Translations: [METOCLOPRAMIDE] Drug Allergy 01-28-2019 Mental Status Change, Other: See Comments [facility] (8 sources) Prochlorperazine ; Translations: [PROCHLORPERAZIN E] Drug Allergy 01-28-2019 Mental Status Change, Other: See Comments [facility] (8 sources) Shellfish; Translations: [SHELLFISH DERIVED] Drug Allergy 03-21-2022 Diarrhea [facility] Medications Current Medications Medication Drug Class(es) Dates [...] DTaP,Tdap,Td Vaccine (2 - Td or Tdap) [facility] Start: 03-21-2023 Influenza vaccination [facility] Start: 07-21-2022 DEPRESSION ASSESSMENT DEPRESSION ASSESSMENT [facility] Start: 03-21-2022 Influenza vaccination INFLUENZA (#1) [facility] Start: 07-21-2021 DEPRESSION ASSESSMENT DEPRESSION ASSESSMENT [facility] Start: 03-21-2021 Influenza vaccination INFLUENZA (Season Ended) [facility] Start: 2007 Urine microalbumin profile [facility] Start: 2006 HEPATITIS C SCREENING HEPATITIS C SCREENING [facility] Start: 2006 HIV SCREENING HIV SCREENING [facility] Start: 2000 Adult depression screening assessment DEPRESSION SCREENING [facility] Start: 1994 PNEUMOCOCCAL (1 - PCV) PNEUMOCOCCAL (1 - PCV) [facility] Start: 1994 Pneumococcal vaccination Pneumococcal Vaccine (1 - PCV) [facility] Start: 02-21-1989 COVID-19 VACCINE (#1) COVID-19 VACCINE (#1) [facility] Start: 1988 HEPATITIS B (1 of 3 - 3-dose series) HEPATITIS B (1 of 3 - 3-dose series) [facility] Start: 1988 Hepatitis B Vaccine (1 of 3 - 3-dose series) Hepatitis B Vaccine (1 of 3 - 3-dose series) [facility] End: 2023 Mri lower extrem oth/thn jt w/o & w/contr matr MRI FOOT/TOES WO/W IVCON RT Radiology Routine Mass of right foot 1 Occurrences starting 07/25/2022 until 2023 [facility] Work Phone: Payers Date Payer Category Payer Medicaid [id number] 2021 Medicaid [id number] 2014 Private Health Insurance [employer] A [employer] PPO [id number] 2014-Present PPO [id number] 1988 Unknown [id number] Social History Date Type Detail Facility Start: 06-19-2015 End: 01-28-2023 Tobacco smoking status CTIS Current every day smoker [facility] History of tobacco use Cigarette Smoker C [facility] Start: 06-19-2015 End: 08-02-2022 Cigarettes smoked current (pack per day) - Reported [facility] Start: 06-19-2015 End: 01-28-2023 Tobacco use and exposure Never used [facility] Start: 06-19-2015 End: 06-19-2022 Alcohol intake Not Asked [facility] Start: 1990 Sex Assigned At Not on file C [facility] Start: 06-09-2022 End: 06-19-2022 Exposure to SARS-CoV-2 (event) Not sure [facility] Work Phone: Start: 07-25-2022 Alcohol intake Current drinke r of alcohol (finding) [facility] Start: 07-25-2022 Alcohol Comment rarely [facility] Start: 01-28-2023 End: 02-27-2023 Alcohol intake Ex-drinker (finding) [facility] Start: 08-02-2022 End: 01-28-2023 Tobacco use panel [facility] National Score (1-10 0), lower number is lower risk 70 [facility] Start: 1990 Sex Assigned At Male C [facility] Start: 01-28-2023 Gender identity Identifies as male gender (finding) [facility] Start: 04-10-2022 Sexual orientation Homosexual (findi ng) [facility] Clinical Notes 07-03-2015 to 04-09-2023 Telephone Encounter [...] but being that the appointment was in [place], he elected not to go. He did [...] Tj Sorto DPM documented in this encounter [facility] 02-27-2023 Note HNO ID: [id number] Author: Lilian Lee LSW Service: Care Management Author Type: Buckle Strap Puncher Type: Care Mgt Progress Note Filed: 02/27/2023 7:04 PM Note Text: SOCIAL WORK PROGRESS NOTE SERVICE DATE: 02/27/2023 SERVICE TIME: 7:00 PM Referral received from Michael GEE, re: transportation options for pt. who has been D/C. Pt has active [employer] insurance, with transportation benefits, . Pt states he has contacted his cousin who is en route to , to transport pt home. Nursing is aware. Pt was provided with the number of [place] transportation. SIGNATURE: TYRELL Haddad PATIENT NAME: Faustino Cuellar DATE: February 27, 2023 TIME: 7:00 PM PAGER/CONTACT #: [phone] [facility] 02-27-2023 Note HNO ID: [id number] Author: Nilay Bryant, CATHIE Service: Emergency Medicine [...] 27, 2023 TIME: 2:52 PM PAGER/CONTACT #: [phone] [facility] 02-27-2023 Note HNO ID: [id number] Author: Rae Mello, ASHISH Service: ? Author [...] DATE: February 27, 2023 TIME: 12:36 PM [facility] 02-27-2023 Miscellaneous Notes Patient texted me [...] Tj Sorto DPM documented in this encounter [facility] 02-26-2023 Miscellaneous Notes I called patient to respond to his Surgi[employer] message. Patient reports he recently noticed some [...] present to the emergency department. I discussed [facility]. He states he has had bad experiences at [facility]. Other options are he can go to [place] or he can go to [facility]. He has elected to present to [facility]. I will have him go to [facility] today. Tj Sorto DPM documented in this encounter [facility] 01-31-2023 Miscellaneous Notes I attempted to contact patient today in regards to his SurgiLight messsage. No answer. Will try to call next week. If condition worsens, present to ed Tj Sorto DPM documented in this encounter [facility] 01-28-2023 Miscellaneous Notes I called patient this evening to report xray findings. I suspect his foot issue is more inflammatory arthritis especially given that the redness does improve with elevation. I did call in keflex today but he has yet to roll picker. While I want him to take the keflex as a precaution, I am going to also prescribe him an oral steroid and nsaid. The oral steroid he will take now. The nsaid he can take in future if he continues to have issue. Will call patient later this week to see how he is doing Tj Sorto DPM documented in this encounter [facility] 01-28-2023 Note HNO ID: [id number] Author: RT Medhat(R) Service: ? Author Type: Trucker Type: Progress Notes Filed: 01/28/2023 12:07 PM [...] RT Medhat(R) January 28, 2023 12:03 PM [facility] 01-28-2023 Note HNO ID: [id number] Author: Tj Sorto Service: ? Author Type: [...] elevation, all rednes (more content not included)... [facility] 01-28-2023 Note HNO ID: [id number] Author: Radha Kuhn RN Service: ? Author [...] showed mild bone marrow edema and calcification. [facility] 01-28-2023 Instructions Tj Sorto - 01/28/2023 11:42 AM EDT Soak your toe in soap and water or epsom salts Get xrays Take antibiotic If condition does not improve, consider partial nail removal documented in this encounter [facility] 01-28-2023 History of Presen t illness Narrative [...] Tj Sorto DPM Podiatry [address] [facility] [address] Dept: [phone] Dept AMB ROOMING INTAKE FLOWSHEET DATA Pain [...] edema and calcification. documented in this encounter [facility] 08-01-2022 Note HNO ID: [id number] Author: RT Fabrizio(R) Service: ? Author Type: [...] DATE: August 01, 2022 TIME: 2:49 PM [facility] 08-01-2022 History of Presen t illness [...] TIME: 2:49 PM documented in this encounter [facility] 07-25-2022 Note HNO ID: [id number] Author: Radha Kuhn RN Service: ? Author Type: Registered Nurse Type: Progress Notes Filed: 07/25/2022 8:50 AM Note Text: Per Dr. Sorto, Faustino was provided with Gel Powerstep inserts, size 9-10.5M, and instructed/educated in its application, wear, and care. All questions were answered, and patient was able to demonstrate competence with the necessary skills to utilize the above equipment. Radha Kuhn RN [facility] 07-25-2022 Note HNO ID: [id number] Author: Tj Leesmatty Service: ? Author Type: [...] hallux ipj. Th (more content not included)... [facility] 07-25-2022 Note HNO ID: [id number] Author: Shantel Luna LPN Service: ? Author [...] - New, Pain, Swelling Shantel Luna LPN [facility] 07-25-2022 History of Presen t illness [...] results Tj Sorto DPM Podiatry [address] [facility] [address] Dept: [phone] Dept AMB ROOMING INTAKE FLOWSHEET DATA Risk Screening Do you have concerns about personal safety or safety in the home?: No Pain Pain Level: 10 Pain Location: Foot-Right Description: Sharp, Stabbing Duration Amount of Time: 4 Duration Units: Months Frequency: Intermittent Intervention/Comfort measure: Reposition, Relaxation, Medication Patient presents with: Right Foot - New, Pain, Swelling Shantel Luna LPN documented in this encounter [facility] 07-25-2022 Instructions Tj Sorto - 07/25/2022 8:32 AM EST Powerstep Original Full length. Can purchase at [employer] here in [place], [employer] in [place] or [place]. Also can find in [employer] in [facility]. Powersteps can also be purchased online, starting [...] fits well together documented in this encounter [facility] 06-24-2022 Note Patient Outreach (AC CC) FAUSTINO CUELLAR ([id number]) 1990 M Date Time Provider Department 06/24/22 [...] visits Payer: Payor: [place] MEDICAID / Plan: [facility] MEDICAID / Product Type: Medicaid / [...] Encounter Status:Closed by SILVERIO ADAIR on 06/24/22 [facility] 06-24-2022 Note HNO ID: [id number] Author: Silverio Adair Service: ? Author Type: [...] visits Payer: Payor: [place] / Plan: [facility] MEDICAID / Product Type: Medicaid / [...] Silverio Adair June 24, 2022 11:12 AM [facility] 06-24-2022 History of Presen t illness Narrative POPULATION HEALTH NAVIGATION OUTREACH Action/FYI Left vm Pt identified by name and : NO Outreach Outcome/Action Unable to reach patient: Left message MyChart message sent Did you use a PCP flex slot to schedule this appointment? No Reason for Outreach Care Gap or Scheduling/Wellness visits Payer: Payor: [place] / Plan: [facility] MEDICAID / Product Type: Medicaid / [...] 2022 11:12 AM documented in this encounter [facility] 06-19-2022 Note HNO ID: [id number] Author: Sammie Morgan RT(R) Service: Radiology Author [...] RT Gretel(R) June 19, 2022 1:50 PM [facility] 06-19-2022 Note HNO ID: [id number] Author: Kayla Mcgill APRN.HAND HARDENER Service: ? Author Type: Nurse Practitioner Type: Progress Notes Filed: 06/19/2022 2:48 PM Note Text: This note was created using [employer]. Subjective Faustino Cuellar is a 31 year [...] history is provided by the patient. No educational speech language clinician was used. Pain (foot) Pain location: right [...] of toe o (more content not included)... [facility] 07-03-2015 Miscellaneous Notes spk with pt [...] TIME: 3:28 PM RADIOLOGY CALL CENTER INTAKE CATALOG LIBRARY ASSISTANT: GILBERT EXT:[id number] DATE: June 29, 2015 TIME: 12:16 PM TRACKING #. [id number] REQUESTING PERSON: BARRON PHONE/PAGER: [phone] REQUESTING STAFF: SERGE DAVIS PHONE/PAGER: [phone] ORDERING DESK LOCATION: Q10 If inpatient, patient location: N/A (Note: requests for inpatient's procedures should be given to the O.D. nurse at pager #[phone]) If outpatient, best way to reach patient: PATIENT @ [phone] Best time to call: ANY SCHEDULING: GREER [...] biopsies do not need imaging.) IMAGING: OUTSIDE [facility] Films: Where is study now: LOADED INTO [employer] (If the imaging was obtained outside the [facility] system, then it needs to be submitted for review prior to approval.) Note to all persons requesting biopsies: All biopsy requests will be scheduled as quickly as possible, based on the clinical urgency, availability of appointment times, the need to hold anti-thrombolytic therapy (aspirin, blood thinners) and the patient s schedule, including the need for an available crew truck driver. If a percutaneous biopsy or drainage is not felt to be safe or an alternative method for establishing a diagnosis is possible, this will be discussed directly with the requesting physician. documented in this encounter [facility] documented [facility] Diagnosis Pain of toe of right foot- Primary Pain in limb Soft tissue mass Disorders of soft tissue, unspecified Cellulitis and abscess of toe of right foot [facility] [place] [facility] Diagnosis Mass of right foot [facility] [place] [facility] Diagnosis Pain of toe of right foot Pain in limb Soft tissue mass Disorders of soft tissue, unspecified documented in this encounter [facility] for referral (narrative)* Diagnostic Procedure Only (Routine) - Closed Specialty Diagnoses / Procedures Referred By Contac t Referred To Contact XR IMAGING Diagnoses Pain of toe of right foot Soft tissue mass Procedures XR TOE AP/LAT/OBL RIGHT RADEX TOE MINIMUM 2 [place] [address] Xr Imaging Referral ID Status Reason Start Date Expiration Date V isits Requested Visits Authorized [id number] Closed Auto-Generate d Referral 01/28/2023 02/27/2024 1 1 T [facility] for referral (narrative)* Diagnostic Procedure Only (Routine) - Closed Specialty Diagnoses / Procedures Referred By Contac t Referred To Contact XR IMAGING Diagnoses Pain of toe of right foot Soft tissue mass Procedures XR TOE AP/LAT/OBL RIGHT RADEX TOE MINIMUM 2 [place] [address] [place] [address] Referral ID Status Reason Start Date Expiration Date V isits Requested Visits Authorized [id number] Closed Auto-Generate d Referral 01/28/2023 02/27/2024 1 1 T [facility] for visit Narrative* Diagnostic Procedure Only (Routine) - Closed Specialty Diagnoses / Procedures Referred By Contac t Referred To Contact XR IMAGING Diagnoses Pain of toe of right foot Soft tissue mass Procedures XR TOE AP/LAT/OBL RIGHT RADEX TOE MINIMUM 2 VIEWS [place] [address] [place] [address] Referral ID Status Reason Start Date Expiration Date V isits Requested Visits Authorized [id number] Closed Auto-Generate d Referral 01/28/2023 02/27/2024 1 1 [facility] Reason for Referral Specialty Diagnoses / Procedures Referred By Contac t Referred To Contact MR IMAGING Diagnoses Mass of right foot Procedures MRI FOOT/TOES WO/W IVCON RT MRI LOWER EXTREM OTH/THN JT W/O & W[facility] [address] [place] [address] Mr Imaging Referral ID Status Reason Start Date Expiration Date Visits Requested Visits Authorized [id number] Authorized Auto-Generat ed Referral 07/25/2022 2022 1 1 Specialty Diagnoses / Procedures Referred By Contac t Referred To Contact [facility] Diagnoses Soft tissue mass Diminished pulses in lower extremity Mass of right foot Procedures PVR ANK PRESS NOMAN VAS LAB NON-INVAS PHYSIOLOGIC STD EXTREMITY ART 2 L[place] [address] [facility] [address] [place] [address] Referral ID Status Reason Start Date Expiration Date Visits Requested Visits Authorized [id number] Authorized Auto-Generat ed Referral 07/25/2022 07/25/2023 1 1 Specialty Diagnoses / Procedures Referred By Contac t Referred To Contact MR IMAGING Diagnoses Mass of right foot Procedures MRI FOOT/TOES WO/W IVCON RT MRI LOWER EXTREM OTH/THN JT W/O & W/CONTR [facility] Tj Sorto [address] [place] [address] [place] [address] Referral ID Status Reason Start Date Expiration Date V isits Requested Visits Authorized [id number] Closed Auto-Generate d Referral 07/25/2022 2022 1 [...] or prosecute any alcohol or drug abuse patient.[facility] the event this information is protected by the Federal Confidentiality of Alcohol and Drug Abuse Patient Records regulations: The Federal rules restrict any use of the information to criminally investigate or prosecute any alcohol or drug abuse patient.[facility] the event this information is protected by the Federal Confidentiality of Alcohol and Drug Abuse Patient Records regulations: The Federal rules restrict any use of the information to criminally investigate or prosecute any alcohol or drug abuse patient.[facility] the event this information is protected by the Federal Confidentiality of Alcohol and Drug Abuse Patient Records regulations: The Federal rules restrict any use of the information to criminally investigate or prosecute any alcohol or drug abuse patient.[facility] the event this information is protected by the Federal Confidentiality of Alcohol and Drug Abuse Patient Records regulations: The Federal rules restrict any use of the information to criminally investigate or prosecute any alcohol or drug abuse patient.[facility] Hospital[facility] the event this information is protected by the Federal Confidentiality of Alcohol and Drug Abuse Patient Records regulations: The Federal rules restrict any use of the information to criminally investigate or prosecute any alcohol or drug abuse patient.[facility] Hospital[facility] the event this information is protected by the Federal Confidentiality of Alcohol and Drug Abuse Patient Records regulations: The Federal rules restrict any use of the information to criminally investigate or prosecute any alcohol or drug abuse patient.[facility] HospitalIn the event this information is protected by the Federal Confidentiality of Alcohol and Drug Abuse Patient Records regulations: The Federal rules restrict any use of the information to criminally investigate or prosecute any alcohol or drug abuse patient.[facility] Hospital[facility] the event this information is protected by the Federal Confidentiality of Alcohol and Drug Abuse Patient Records regulations: The Federal rules restrict any use of the information to criminally investigate or prosecute any alcohol or drug abuse patient.[facility] Hospital[facility] the event this information is protected by the Federal Confidentiality of Alcohol and Drug Abuse Patient Records regulations: The Federal rules restrict any use of the information to criminally investigate or prosecute any alcohol or drug abuse patient.[facility] Reason for Visit (unrecogniz ed section and content) Reason Comments New Pain Swelling Specialty Diagnoses / Procedures Referred By Contac t Referred To Contact Podiatry Diagnoses Pain of toe of right foot Procedures CONSULT TO PODIATRY OFFICE/OUTPATIENT NEW HIGH MDM 60-74 MINUTES Kayla Mcgill, CHAIR INSPECTOR.HAND HARDENER [address] [place] [address] Referral ID Status Reason Start Date Expiration Date V isits Requested Visits Authorized [id number] Closed PCP Requested Referral 06/19/2022 06/19/2023 1 1 Reason Comments Orders Reason Comments Patient Update Reason Comments Established Patient Follow Up Pain Swelling Specialty Diagnoses / Procedures Referred By Contac t Referred To Contact MR IMAGING Diagnoses Mass of right foot Procedures MRI FOOT/TOES WO/W IVCON RT MRI LOWER EXTREM OTH/THN JT W/O & W/CONTR [facility] Testrake, Tj [address] [place] [address] [place] [address] Referral ID Status Reason Start Date Expiration Date V isits Requested Visits Authorized [id number] Closed Auto-Generate d Referral 07/25/2022 2022 1 1 Care Teams (unrecognized sec tion and content) Clinical Analyst Relationship Specialty Start Date End Date Pcp, No PCP - General 02/02/22 08/20/22 Clinical Analyst Relationship Specialty Start Date End Date Pcp, No, CHAIR INSPECTOR PCP - General 02/02/22 08/20/22 (unrecognized sect ion and content) No Status Records FoundNo Status Records Found INFORMATION SOURCE (unrecogn ized section and content) DATE CREATED AUTHOR AUTHOR'S ORGANIZ ATION 04/23/2023 [facility] FOR RECORDS PERTAINING TO PATIENTS WHO ARE [...] BE BASED ON THE PRIMARY CLINICAL RECORDS. [facility]. provides no warranty or guarantee of the accuracy or completeness of information in this document.
== END 2023-08-06 19:31 | disposition home or self-care (01) ==
LOC: ED 19:28
PROVIDERS: Emergency Provider Emergency Medicine; Visit Provider Emergency Medicine
DX: S01.81XA Laceration without foreign body of other part of head, initial encounter (principal); B20 Human immunodeficiency virus [HIV] disease; Z59.00 Homelessness unspecified; F17.210 Nicotine dependence, cigarettes, uncomplicated; K21.9 Gastro-esophageal reflux disease without esophagitis; I10 Essential (primary) hypertension; Z85.09 Personal history of malignant neoplasm of other digestive organs; Z79.899 Other long term (current) drug therapy; W54.0XXA Bitten by dog, initial encounter
CPT/HCPCS: 99282

== ENCOUNTER 2023-08-27 16:22 | Observation (INO) | payer MEDICAID, SELFPAY ==
[2023-08-27 16:27] VITALS: BP 136/99; PULSE 102; RESP 25; TEMP 36.9; O2SAT 100; BMI 21.9
--- NOTE | 2023-08-27 17:05 | RAD_ITS ---
STUDY: X-RAY CHEST REASON FOR EXAM: Male, 33 years old. syncope TECHNIQUE: Single frontal view of the chest. COMPARISON: November 25, 2022 FINDINGS: The lungs are clear and expanded. There is no demonstrated pleural abnormality. Normal size heart. Normal mediastinum and june. Normal visualized pulmonary arteries. Normal visualized aortic arch and descending thoracic aorta. Normal visualized thoracic spine. Normal visualized ribs, clavicles, and shoulders. There is no demonstrated abnormality of the visualized soft tissue structures of the upper abdomen. RAD/Chest 1 View (Portable) IMPRESSION: Normal x-ray examination of the chest. Electronically Signed: Pete Vega MD at 18:10 EST ,
[2023-08-27 17:09] LABS: Absolute Neutrophil Count 4.1 X10^3/uL (2.0-7.7); Basophil# 0.06 X10^3/uL; Basophil% 0.8 % (0-1); Eosinophil# 0.19 X10^3/uL; Eosinophils% 2.6 % (0-5); Hematocrit 43.2 % (40-54); Hemoglobin 14.7 g/dL (13.0-16.5); Mean Corpuscular Hgb 31.6 pg (27.0-32.0); Mean Corpuscular Volume 92.9 fL (80-94); Mean Platelet Vol. 8.4 fl (6.2-12.0); Monocyte# 0.83 X10^3/uL; Monocyte% 11.4 % (0-10); NRBC Flagged by Analyzer 0 % (0-5); Neutrophil # 4.05 X10^3/uL (2.7-7.7); Neutrophil % 55.9 % (47-70); Platelet Count 243 K/mm3 (150-450); RBC Distribution Width CV 13.2 % (11.6-14.6); RBC Distribution Width SD 45.1 fl (35.1-43.9); Red Blood Count 4.65 M/mm3 (4.6-6.2); White Blood Count 7.3 K/mm3 (4.4-11.0)
[2023-08-27 17:33] LABS: ALB/GLOB Ratio 1.3 RATIO (0.9-2.4); AST(SGOT) 17 U/L (15-37); Alanine Aminotransfer ALT/SGPT 26 U/L (16-61); Albumin, Serum 3.9 g/dL (3.2-5.0); Alkaline Phosphatase 93 U/L (45-117); Anion Gap 3 (5-15); BUN 12 mg/dL (7-18); BUN/Creat Ratio 13.8 RATIO (10-20); Calcium,Total 9.6 mg/dL (8.5-10.1); Chloride 110 mmol/L (98-107); Creatinine, Serum 0.87 mg/dL (0.70-1.30); EST Glomerular Filtration Rate 107 mL/min (>60); Est Glom Filt Rate - Afr Amer 129 mL/min (>60); Estimated Creatinine Clearance 109.96 ml/min; Glucose 88 mg/dL (74-106); Potassium 3.7 mmol/L (3.5-5.1); Protein, Total 6.9 g/dL (6.4-8.2); Sodium Level 141 mmol/L (136-145)
--- NOTE | 2023-08-27 17:49 | CT_ITS ---
STUDY: CTA CHEST REASON FOR EXAM: Male, 33 years old. headache RADIATION DOSAGE (If Supplied By Facility): CTDIvol = ( 19.52 ) mGy, DLP = ( 1670.35 ) mGycm TECHNIQUE: The examination was performed with the intravenous administration of ISOVUE 370 100 ML. Post-processing of the angiographic images was performed, with multiplanar reformation and 3D reconstruction. Individualized dose optimization techniques were used for this CT. COMPARISON: Chest x-ray August 27, 2023. FINDINGS: Normal enhancement of the main pulmonary artery and right and left pulmonary arteries. Normal enhancement of the bilateral peripheral pulmonary arteries. There is no demonstrated pulmonary embolism. Normal thoracic aorta and visualized great vessels. There is no demonstrated aortic dissection. Normal heart and pericardium. Normal mediastinum. Normal hilar regions. Normal visualized trachea and bronchi. The lungs are well expanded. Normal pulmonary parenchyma. Normal pleura. Normal chest wall structures. Normal osseous structures. Normal visualized upper abdomen. CT/CTA Chest W/WO Contrast IMPRESSION: Normal CTA chest examination, without a demonstrated pulmonary embolism or arterial dissection. Electronically Signed: Pete Vega MD at 19:01 [facility] ,
--- NOTE | 2023-08-27 17:49 | CT_ITS ---
STUDY: CT BRAIN WITHOUT CONTRAST REASON FOR EXAM: Male, 33 years old. headache RADIATION DOSAGE (If Supplied By Facility): CTDIvol = ( 44.99 ) mGy, DLP = ( 779.24 ) mGycm TECHNIQUE: Transaxial CT imaging of the brain was performed without administration of intravenous contrast material. Individualized dose optimization techniques were used for this CT. COMPARISON: CT brain July 16, 2023 FINDINGS: Normal soft tissue structures. Normal calvarium. Normal size ventricles and extra-axial spaces for the patient''s age. Normal white matter tracts of the cerebral hemispheres. Normal basal ganglia and thalami. Normal brainstem. Normal cerebellum. There is no intracranial hemorrhage. There are no findings of an acute ischemic infarction. Normal visualized paranasal sinuses. CT/Brain/Head without Contrast IMPRESSION: Normal unenhanced CT scan of the brain. Electronically Signed: Pete Vega MD at 18:49 EST ,
--- NOTE | 2023-08-27 17:49 | CT_ITS ---
STUDY: CT FACIAL BONES WITHOUT CONTRAST REASON FOR EXAM: Male, 33 years old. left jaw pain RADIATION DOSAGE (If Supplied By Facility): CTDIvol = ( 29.38 ) mGy, DLP = ( 540.11 ) mGycm TECHNIQUE: The patient was scanned in a multi detector CT scanner. Sagittal and coronal images were reconstructed. Individualized dose optimization techniques were used for this CT. COMPARISON: None. FINDINGS: Normal soft tissue structures. Normal orbital valentin and orbital contents. Nondisplaced nasal bone fracture, age indeterminate. Normal facial bones. There is no demonstrated fracture. Normal visualized paranasal sinuses. CT/Sinus/Facial Bone IMPRESSION: Nasal bone fracture, age indeterminate. No mandibular fracture noted. Electronically Signed: Pete Vega MD at 18:54 EST ,
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
[2023-08-27 18:00] VITALS: BP 127/97; PULSE 78; RESP 22; O2SAT 100
[2023-08-27] MEDS: 0.9% Normal Saline (1000mL) 1,000 ML 999 ML IV (19:01)
--- NOTE | 2023-08-27 20:00 | CT_ITS ---
STUDY: CTA HEAD AND NECK WITH CONTRAST REASON FOR EXAM: Male, 33 years old. headache RADIATION DOSAGE (If Supplied By Facility): CTDIvol = ( 17.33 ) mGy, DLP = ( 762.06 ) mGycm TECHNIQUE: CT angiography was performed with a multi-detector CT scanner. Data acquisition was obtained from the skull base through the vertex following intravenous administration of IV 75mL Isovue-370. MIP images were reconstructed from the axial data set. Post-processing of the angiographic images was performed, with multiplanar reformation and 3D reconstruction. Individualized dose optimization techniques were used for this CT. COMPARISON: CT brain from today. FINDINGS: Normal bilateral petrous carotid arteries. Normal right cavernous carotid artery with a normal supraclinoid bifurcation. Normal left cavernous carotid artery with a normal supraclinoid bifurcation. Normal right A1 segments of the anterior cerebral artery. Normal left A1 segments of the anterior cerebral artery. Normal intact anterior communicating artery (ACOM). Normal bilateral A2 segments of the anterior cerebral arteries. Normal right M1 and M2 segments of the middle cerebral arteries, with a normal M1 bifurcation. Normal left M1 and M2 segments of the middle cerebral arteries, with a normal M1 bifurcation. Normal right posterior communicating artery (PCOM). Normal left posterior communicating artery (PCOM). Normal bilateral vertebral arteries. Normal basilar artery with a normal basilar bifurcation. The visualized bilateral superior cerebellar (SCA) arteries are normal. Normal bilateral P1, P2 and visualized P3 segments of the posterior cerebral arteries. There is no demonstrated aneurysm of the [place]. There is no demonstrated abnormality of the visualized brain. AORTIC ARCH: Normal visualized aortic arch. Normal origins of the brachiocephalic, left common carotid, and left subclavian arteries. RIGHT CAROTID ARTERIES: Normal right common carotid artery (CCA). Normal right common carotid bulb. Normal origin of the right internal carotid (ICA) artery without a hemodynamically significant stenosis. Normal visualized cervical portion of the right internal carotid artery. Normal origin of the right external carotid artery (ECA). LEFT CAROTID ARTERIES: Normal left common carotid artery (CCA). Normal left common carotid bulb. Normal origin of the left internal carotid (ICA) artery without a hemodynamically significant stenosis. Normal visualized cervical portion of the left internal carotid artery. Normal origin of the left external carotid artery (ECA). VERTEBRAL ARTERIES: The vertebral artery is dominant. Left vertebral artery may terminate as the height. It has been anatomic variant direct origin from the arch. CT/CTA Head AND Neck W/ Contrast IMPRESSION: No aneurysm identified. Left vertebral artery anatomic variant as above. Electronically Signed: Pete Vega MD at 21:10 EST ,
[2023-08-27 20:40] LABS: Amphetamine Urine VISTA POSITIVE (<1000 ng/mL); Barbiturate Urine VISTA NEGATIVE (< 200 ng/mL); Benzodiazepine Urine VISTA NEGATIVE (< 200 ng/mL); Cocaine Urine VISTA POSITIVE (< 300 ng/mL); Ecstacy Urine VISTA NEGATIVE (< 500 ng/mL); Methadone Urine VISTA NEGATIVE (< 300 ng/mL); PCP Urine VISTA NEGATIVE (< 25 ng/mL); THC Urine VISTA NEGATIVE (< 50 ng/mL); Vista UDS pH Range 6
[2023-08-27] MEDS: LORazepam 1 MG Tablet PO (20:59)
--- NOTE | 2023-08-27 21:02 | ED.RN ---
PATIENT HAS AUNT AT BEDSIDE. PT ALLOWED MOM AND UNCLE AT BEDSIDE. PT BECAME UPSET. PT STARTED YELLING AT MOM AND UNCLE. [facility] CHARGE NURSE TOLD UNCLE AND MOM TO LEAVE. PTS MOTHER AND UNCLE HAVE A RESTRAINING ORDER AGAINST PATIENT BUT WANTED TO UPDATE THEM ON PLAN OF CARE. PT STATES HE SHOULD HAVE NEVER LET THEM BACK. PT GIVEN ORAL ATIVAN. WILL CONTINUE TO MONITOR
[2023-08-27 21:51] VITALS: BP 147/97; PULSE 98; RESP 17; O2SAT 100
--- NOTE | 2023-08-27 21:51 | PCM.HP.STD ---
HPI - General General Date of Admission: 08/27/23 Date of Service: 08/27/23 Chief Complaint: Vague historian. Time lapses, multiple syncope with suspicion of seizure HPI Narrative JOHNNY UNGER, is a 33 M who is very vague historian with poor recollection states he had multiple episodes of syncope since last summer. He stated that he had first time around January or February and then multiple about 1 time per week. He stated he loses time orientation and not aware of the time lapses, unaware of the surrounding sometimes does not know what he is doing. He states he lives alone and does not have any family member. He is also has HIV status not adherent to the medication but had seen Dr. Bustillo in the past and on Biktarvy since last taken was January 18, 2023. He has M2M relationship denies any acute fever chills or penile discharge or rash. One of his acquaintance told that he might had seizure but is not very sure and 1 time was found in the bathroom with thrashing arms. He could not describe me the exactly what has happened as he stated he will lose his consciousness or altered mental status. Denies any chest pain, shortness of breath or dizziness or vomiting. No abdominal pain. He describes that he feels too weak and exhausted all the time. Further described that 1 time he had 1 hard metallic stuff fell on his head in about January and since then he is happening but looks like not evaluated in the past. ED physician discussed with the [facility] teleneurology and advised Keppra 500 mg twice daily, MRI brain with and without contrast and EEG. Family history of cerebral aneurysm Vitals labs and imagings reviewed and discussed in assessment and plan. [facility] Medical History Acid reflux Asthma Cancer of intestinal tract Depression HIV (human immunodeficiency virus infection) Hypertension Polycystic kidney disease Home Medications omeprazole 20 mg tablet,delayed release 20 mg PO DAILY 01/19/22 [History Last Taken Unknown] bictegravir 50 mg-emtricitabine 200 mg-tenofovir alafenam 25 mg tablet (Biktarvy) 1 tab PO DAILY 11/25/22 [History Last Taken 01/18/23] cholecalciferol (vitamin D3) 25 mcg (1,000 unit) capsule (Vitamin D3) 25 mcg PO BID 11/25/22 [History Last Taken Unknown] albuterol sulfate 90 mcg/actuation aerosol inhaler 1 inh inhalation DAILY PRN shortness of breath or wheezing 08/27/23 [History Last Taken Unknown] Allergy/AdvReac Type Severity Reaction Status Date / Time meloxicam [From Mobic] Allergy Severe Anaphylaxis Verified 08/27/23 17:31 metoclopramide [From Reglan] Allergy Other Verified 08/27/23 17:31 Antihistamines - Alkylamine AdvReac Other Verified 08/27/23 17:31 Antihistamines - Ethanolamine AdvReac Other Verified 08/27/23 17:31 Antihistamines - AdvReac Other Verified 08/27/23 17:31 Ethylenediamine Antihistamines - Piperazine AdvReac Other Verified 08/27/23 17:31 Antihistamines - Piperidine AdvReac Other Verified 08/27/23 17:31 prochlorperazine AdvReac Other Verified 08/27/23 17:31 shellfish derived AdvReac Abd Verified 08/27/23 17:31 cramps/diarrhea Family History no significant family his Surgical History H/O wrist surgery History of bowel resection Hx of tonsillectomy Social History household members: none housing: homeless Smoking Status: Current every day smoker tobacco type: cigarettes substance use type: does not use ROS ROS Narrative 14 system ROS is on computers patient does not remember his recent past with history of recurrent seizure/syncope, unawareness and altered mental status. Review of Systems ROS Unobtainable: due to mental condition and due to mental status Vital Signs Vital Signs Vital Signs: 08/27/23 16:27 08/27/23 17:03 08/27/23 18:00 Temperature 98.4 F Temperature Source Oral Pulse Rate 102 H 78 Respiratory Rate 25 H 22 H Respiratory Effort Normal Respiratory Pattern Normal Blood Pressure 136/99 H 127/97 H Blood Pressure Mean 111 107 Pulse Ox 100 100 Oxygen Delivery Method Room Air Weight Weight: 144 lb 9.972 oz Body Mass Index (BMI) 21.9 Physical Exam Narrative General: Awake, alert, Oriented x3, Cooperative HEENT: Atraumatic, PERRLA, EOMI, Normocephalic Oral: No Gingival or Mucosal Lesions/ Ulcerations Neck: Supple, No JVD, Negative Carotid Bruits Chest wall/Lungs: Air entry diminished in bilateral lung bases. No crepitation/rhonchi Cardiovascular: Regular rate, Regular Rhythm, Normal S1, Normal S2, No M/G/R Abdomen: Bowel Sounds Present, Soft, Non Tender, Non-Distended : No penile discharge. No testicular tenderness. No dysuria. No renal angle tenderness. No suprapubic tenderness. Extremities: No edema, Capillary Refill Less than 3 Seconds Skin: Diffuse maculopapular and some flattopped papules over the back. Musculoskeletal: No Tenderness to Palpation of Joints or Extremities Neurological: Cranial nerves II-XII grossly intact, DTR 2+/4. No acute focal neurological deficit. Psych/Mental Status: Flat affect, circumferential history, loses boundaries of time with frequent time lapses. Results Lab / Micro Data 08/27/23 16:58 08/27/23 16:58 Labs: Laboratory Results - last 24 hr 08/27/23 16:58: WBC 7.3, RBC 4.65, Hgb 14.7, Hct 43.2, MCV 92.9, MCH 31.6, MCHC 34.0, RDW Std Deviation 45.1 H, RDW Coeff of Carlyn 13.2, Plt Count 243, MPV 8.4, Immature Gran % (Auto) 0.300, Neut % (Auto) 55.9, Lymph % (Auto) 29.0, Miner % (Auto) 11.4 H, Eos % (Auto) 2.6, Baso % (Auto) 0.8, Absolute Neuts (auto) 4.1, Absolute Lymphs (auto) 2.10, Nucleated RBC % 0, Sodium 141, Potassium 3.7, Chloride 110 H, Carbon Dioxide 28.0, Anion Gap 3 L, BUN 12, Creatinine 0.87, Estim Creat Clear Calc 109.96, Est GFR (MDRD) Af Amer 129, Est GFR (MDRD) Non-Af 107, BUN/Creatinine Ratio 13.8, Glucose 88, Calcium 9.6, Total Bilirubin 0.60, AST 17, ALT 26, Alkaline Phosphatase 93, Total Protein 6.9, Albumin 3.9, Globulin 3.0, Albumin/Globulin Ratio 1.3, Ethyl Alcohol 3.0 08/27/23 20:00: Urine Opiates Screen NEGATIVE, Urine Methadone Screen NEGATIVE, Ur Barbiturates Screen NEGATIVE, Ur Phencyclidine Scrn NEGATIVE, Ur Amphetamines Screen POSITIVE H, MDMA (Ecstasy) Screen NEGATIVE, U Benzodiazepines Scrn NEGATIVE, Urine Cocaine Screen POSITIVE H, U Cannabinoids Screen NEGATIVE, Ur Drug Screen Comment Imaging Radiology Impression Chest X-Ray 08/27/23 17:05 IMPRESSION: Normal x-ray examination of the chest. Electronically Signed: Pete Vega MD at 18:10 EST Reading Location ID and State: [facility] / [place] Tel , Service support , Brain CT 08/27/23 17:49 IMPRESSION: Normal unenhanced CT scan of the brain. Electronically Signed: Pete Vega MD at 18:49 EST Reading Location ID and State: [facility] / [place] Tel , Service support , Chest CTA 08/27/23 17:49 IMPRESSION: Normal CTA chest examination, without a demonstrated pulmonary embolism or arterial dissection. Electronically Signed: Pete Vega MD at 19:01 EST Reading Location ID and State: [facility] / [place] Tel , Service support , Facial/Sinus 08/27/23 17:49 IMPRESSION: Nasal bone fracture, age indeterminate. No mandibular fracture noted. Electronically Signed: Pete Vega MD at 18:54 EST Reading Location ID and State: [facility] / [place] Tel , Service support , Head/Neck CTA 08/27/23 20:00 IMPRESSION: No aneurysm identified. Left vertebral artery anatomic variant as above. Electronically Signed: Pete Vega MD at 21:10 EST Reading Location ID and State: [facility] / [place] Tel , Service support , Assessment & Plan Assessment/Plan (1) Syncope: PLAN: Plan This 33-year-old gentleman admitted for evaluation of recurrent syncope, unawareness altered mental status possible syncope/seizure 1. Syncope possible seizure, history not very clear: Patient is being admitted in PCU on telemetry. Orthostatic blood pressure tomorrow AM. On IV fluid normal saline with 20 mEq IV KCl. Serum magnesium and phosphorus ordered. MRI brain with and without contrast and EEG ordered for tomorrow AM. Keppra 500 mg twice daily as per neurologist recommendation. Teleneurology consult tomorrow. 2D echo also ordered. 2. Frequent history of delirium, unawareness of time and place: Currently patient is oriented to time place and person. Patient is stated that he was started on Prozac recently but is not mentioning patient's home medication. Will need psychiatric evaluation as an outpatient after discharge. 3. HIV with unclear to status: ID consult requested. Patient on Biktarvy at home but since last dose was in January 2023 3. CD4, CD4/CD8 ratio and HIV quantitative viral load ordered. 4. Other comorbidities include GERD, asthma anxiety and depression and polycystic kidney disease and hypertension: Blood pressure in ED normal 127/97. Heart rate controlled. Will need outpatient PCP follow-up. PPI 40 mg pantoprazole ordered Living will/advanced directive/end of life care: Patient does not have living will or advanced directive. He states he is he is and has . He was in contact with a regulatory affairs associate to prepare paperwork but does not have any power of family law attorney for health. After discussion of benefits/risks procedures involved with full code, DNR CC arrest and DNR CC, the patient opted for full code. Patient does want artificial life support including intubation, tube feed, ventilator and/chest compression, central venous catheter, vasopressor and DC shock if needed Total time spent in [id number] encounter in discussion of advanced directive 17 minutes. Laboratory Results 08/27/23 16:58: WBC 7.3, RBC 4.65, Hgb 14.7, Hct 43.2, MCV 92.9, MCH 31.6, MCHC 34.0, RDW Std Deviation 45.1 H, RDW Coeff of Carlyn 13.2, Plt Count 243, MPV 8.4, Immature Gran % (Auto) 0.300, Neut % (Auto) 55.9, Lymph % (Auto) 29.0, Miner % (Auto) 11.4 H, Eos % (Auto) 2.6, Baso % (Auto) 0.8, Absolute Neuts (auto) 4.1, Absolute Lymphs (auto) 2.10, Nucleated RBC % 0, Sodium 141, Potassium 3.7, Chloride 110 H, Carbon Dioxide 28.0, Anion Gap 3 L, BUN 12, Creatinine 0.87, Estim Creat Clear Calc 109.96, Est GFR (MDRD) Af Amer 129, Est GFR (MDRD) Non-Af 107, BUN/Creatinine Ratio 13.8, Glucose 88, Calcium 9.6, Total Bilirubin 0.60, AST 17, ALT 26, Alkaline Phosphatase 93, Troponin I High Sens 4, Total Protein 6.9, Albumin 3.9, Globulin 3.0, Albumin/Globulin Ratio 1.3, Ethyl Alcohol 3.0 08/27/23 20:00: Urine Opiates Screen NEGATIVE, Urine Methadone Screen NEGATIVE, Ur Barbiturates Screen NEGATIVE, Ur Phencyclidine Scrn NEGATIVE, Ur Amphetamines Screen POSITIVE H, MDMA (Ecstasy) Screen NEGATIVE, U Benzodiazepines Scrn NEGATIVE, Urine Cocaine Screen POSITIVE H, U Cannabinoids Screen NEGATIVE, Ur Drug Screen Comment Charges/Coding Visit Charges Inpatient E&M: 62096 Init Hosp L3 Procedures Hospitalists Procedures: 63684 Advncd Care Plan 30 Min
[2023-08-27 22:03] VITALS: BP 126/84; BP 129/79; BP 134/88; PULSE 100
[2023-08-27 22:04] VITALS: BP 134/88; PULSE 98; RESP 21; O2SAT 100
--- OUTSIDE RECORDS SUMMARY | 2023-08-27 22:05 | XMS RPT_ITS | CCD ---
Author Name Unknown Address [address] [place] [address] Organization [facility] Care Team Providers Care [place] Upholsterer Name Role Phone Ronni Landaverde Primary Care Provider Pcp, No Primary Care Provider Unavailabl e Unavailable Primary Care Provider Unavailabl e TESTRAKE, TJ Referring Unavailable TESTRAKE, TJ Referring Unavailable MCGILL, KAYLA Referring Unavailable TESTRAKE, TJ Attending Unavailable TESTRAKE, TJ Attending Unavailable MCGLIL, KAYLA Referring Unavailable TESTRAKE, TJ Referring Unavailable TAPIO, PATRICIA Admitting Unavailable TAPIO, PATRICIA Attending Unavailable TAPIO, PATRICIA Consulting Unavailable Pcp ADVERTISING INSERTER, No Primary Care Provider Unavailabl e Allergies Allergy Classification Reported Allergen(s) Allergy Type Date of Onset Reaction(s) Facility Unclassified (12 sources) Antihistimine; Translations: [ANTIHISTIMINE] Drug Allergy 06-19-2015 Mental Status Change [facility] (8 sources) Metoclopramide; Translations: [METOCLOPRAMIDE] Drug Allergy 01-28-2019 Mental Status Change, Other: See Comments [facility] (8 sources) Prochlorperazine ; Translations: [PROCHLORPERAZIN E] Drug Allergy 01-28-2019 Mental Status Change, Other: See Comments [facility] (8 sources) Shellfish; Translations: [SHELLFISH DERIVED] Drug Allergy 03-21-2022 Diarrhea [facility] Medications Current Medications Medication Drug Class(es) Dates [...] DTaP,Tdap,Td Vaccine (2 - Td or Tdap) [facility] Start: 03-21-2023 Influenza vaccination [facility] Start: 07-21-2022 DEPRESSION ASSESSMENT DEPRESSION ASSESSMENT [facility] Start: 03-21-2022 Influenza vaccination INFLUENZA (#1) [facility] Start: 07-21-2021 DEPRESSION ASSESSMENT DEPRESSION ASSESSMENT [facility] Start: 03-21-2021 Influenza vaccination INFLUENZA (Season Ended) [facility] Start: 2007 Urine microalbumin profile [facility] Start: 2006 HEPATITIS C SCREENING HEPATITIS C SCREENING [facility] Start: 2006 HIV SCREENING HIV SCREENING [facility] Start: 2000 Adult depression screening assessment DEPRESSION SCREENING [facility] Start: 1994 PNEUMOCOCCAL (1 - PCV) PNEUMOCOCCAL (1 - PCV) [facility] Start: 1994 Pneumococcal vaccination Pneumococcal Vaccine (1 - PCV) [facility] Start: 02-21-1989 COVID-19 VACCINE (#1) COVID-19 VACCINE (#1) [facility] Start: 1988 HEPATITIS B (1 of 3 - 3-dose series) HEPATITIS B (1 of 3 - 3-dose series) [facility] Start: 1988 Hepatitis B Vaccine (1 of 3 - 3-dose series) Hepatitis B Vaccine (1 of 3 - 3-dose series) [facility] End: 2023 Mri lower extrem oth/thn jt w/o & w/contr matr MRI FOOT/TOES WO/W IVCON RT Radiology Routine Mass of right foot 1 Occurrences starting 07/25/2022 until 2023 [facility] Work Phone: Payers Date Payer Category Payer Medicaid [id number] 2021 Medicaid [id number] 2014 Private Health Insurance [employer] A ETNA PPO [id number] 2014-Present PPO [id number] 1988 Unknown [id number] Social History Date Type Detail Facility Start: 06-19-2015 End: 01-28-2023 Tobacco smoking status ARIS Current every day smoker [facility] History of tobacco use Cigarette Smoker [facility] Start: 06-19-2015 End: 08-02-2022 Cigarettes smoked current (pack per day) - Reported [facility] Start: 06-19-2015 End: 01-28-2023 Tobacco use and exposure Never used [facility] Start: 06-19-2015 End: 06-19-2022 Alcohol intake Not Asked [facility] Start: 1990 Sex Assigned At Not on file C [facility] Start: 06-09-2022 End: 06-19-2022 Exposure to SARS-CoV-2 (event) Not sure [facility] Work Phone: Start: 07-25-2022 Alcohol intake Current drinke r of alcohol (finding) [facility] Start: 07-25-2022 Alcohol Comment rarely [facility] Start: 01-28-2023 End: 02-27-2023 Alcohol intake Ex-drinker (finding) [facility] Start: 08-02-2022 End: 01-28-2023 Tobacco use panel [facility] National Score (1-10 0), lower number is lower risk 70 [facility] Start: 1990 Sex Assigned At Male C [facility] Start: 01-28-2023 Gender identity Identifies as male gender (finding) [facility] Start: 04-10-2022 Sexual orientation Homosexual (findi ng) [facility] Clinical Notes 07-03-2015 to 04-09-2023 Telephone Encounter [...] but being that the appointment was in [place], he elected not to go. He did [...] Tj Sorto DPM documented in this encounter [facility] 02-27-2023 Note HNO ID: [id number] Author: Lilian Lee LSW Service: Care Management Author Type: Biztalk Administrator Type: Care Mgt Progress Note Filed: 02/27/2023 7:04 PM Note Text: SOCIAL WORK PROGRESS NOTE SERVICE DATE: 02/27/2023 SERVICE TIME: 7:00 PM Referral received from Michael GEE, re: transportation options for pt. who has been D/C. Pt has active [employer] insurance, with transportation benefits, . Pt states he has contacted his cousin who is en route to , to transport pt home. Nursing is aware. Pt was provided with the number of [place] transportation. SIGNATURE: TYRELL Haddad PATIENT NAME: Faustino Cuellar DATE: February 27, 2023 TIME: 7:00 PM PAGER/CONTACT #: [phone] [facility] 02-27-2023 Note HNO ID: [id number] Author: Nilay Bryant, CATHIE Service: Emergency Medicine [...] 27, 2023 TIME: 2:52 PM PAGER/CONTACT #: [phone] [facility] 02-27-2023 Note HNO ID: [id number] Author: Rae Mello, ASHISH Service: ? Author [...] DATE: February 27, 2023 TIME: 12:36 PM [facility] 02-27-2023 Miscellaneous Notes Patient texted me [...] Tj Sorto DPM documented in this encounter [facility] 02-26-2023 Miscellaneous Notes I called patient to respond to his [employer] message. Patient reports he recently noticed some [...] present to the emergency department. I discussed [facility]. He states he has had bad experiences at [facility]. Other options are he can go to [place] or he can go to [facility]. He has elected to present to [facility]. I will have him go to [facility] today. Tj Sorto DPM documented in this encounter [facility] 01-31-2023 Miscellaneous Notes I attempted to contact patient today in regards to his [employer] messsage. No answer. Will try to call next week. If condition worsens, present to ed Tj Sorto DPM documented in this encounter [facility] 01-28-2023 Miscellaneous Notes I called patient this evening to report xray findings. I suspect his foot issue is more inflammatory arthritis especially given that the redness does improve with elevation. 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 While I want him to take the keflex as a precaution, I am going to also prescribe him an oral steroid and nsaid. The oral steroid he will take now. The nsaid he can take in future if he continues to have issue. Will call patient later this week to see how he is doing Tj Sorto DPM documented in this encounter [facility] 01-28-2023 Note HNO ID: [id number] Author: RT Medhat(R) Service: ? Author Type: Environmental Sampler Type: Progress Notes Filed: 01/28/2023 12:07 PM [...] RT Medhat(R) January 28, 2023 12:03 PM [facility] 01-28-2023 Note HNO ID: [id number] Author: Tj Sorto Service: ? Author Type: [...] elevation, all rednes (more content not included)... [facility] 01-28-2023 Note HNO ID: [id number] Author: Radha Kuhn RN Service: ? Author [...] showed mild bone marrow edema and calcification. [facility] 01-28-2023 Instructions Tj Sorto - 01/28/2023 11:42 AM EDT Soak your toe in soap and water or epsom salts Get xrays Take antibiotic If condition does not improve, consider partial nail removal documented in this encounter [facility] 01-28-2023 History of Presen t illness Narrative [...] DPM Podiatry [address] [facility] [address] Dept: [phone] Dept AMB ROOMING INTAKE FLOWSHEET DATA Pain [...] edema and calcification. documented in this encounter [facility] 08-01-2022 Note HNO ID: [id number] Author: RT Fabrizio(R) Service: ? Author Type: [...] DATE: August 01, 2022 TIME: 2:49 PM [facility] 08-01-2022 History of Presen t illness [...] TIME: 2:49 PM documented in this encounter [facility] 07-25-2022 Note HNO ID: [id number] Author: Radha Kuhn RN Service: ? Author Type: Registered Nurse Type: Progress Notes Filed: 07/25/2022 8:50 AM Note Text: Per Dr. Sorto, Faustino was provided with Gel Powerstep inserts, size 9-10.5M, and instructed/educated in its application, wear, and care. All questions were answered, and patient was able to demonstrate competence with the necessary skills to utilize the above equipment. Radha Kuhn RN [facility] 07-25-2022 Note HNO ID: [id number] Author: Tj Leesmatty Service: ? Author Type: [...] hallux ipj. Th (more content not included)... [facility] 07-25-2022 Note HNO ID: [id number] Author: Shantel Luna LPN Service: ? Author [...] - New, Pain, Swelling Shantel Luna LPN [facility] 07-25-2022 History of Presen t illness [...] results Tj Sorto DPM Podiatry [address] [facility] [address] Dept: [phone] Dept AMB ROOMING INTAKE FLOWSHEET DATA Risk Screening Do you have concerns about personal safety or safety in the home?: No Pain Pain Level: 10 Pain Location: Foot-Right Description: Sharp, Stabbing Duration Amount of Time: 4 Duration Units: Months Frequency: Intermittent Intervention/Comfort measure: Reposition, Relaxation, Medication Patient presents with: Right Foot - New, Pain, Swelling Shantel Luna LPN documented in this encounter [facility] 07-25-2022 Instructions Tj Sorto - 07/25/2022 8:32 AM EST Powerstep Original Full length. Can purchase at [employer] here in [place], [employer] in [place] or [place]. Also can find in [employer] in [facility]. Powersteps can also be purchased online, starting [...] fits well together documented in this encounter [facility] 06-24-2022 Note Patient Outreach (AC CC) FAUSTINO CUELLAR ([id number]) 1990 M Date Time Provider Department 06/24/22 [...] visits Payer: Payor: [place] MEDICAID / Plan: [facility] [place] MEDICA[place] / Product Type: Medicaid / Care [...] Encounter Status:Closed by SILVERIO ADAIR on 06/24/22 [facility] 06-24-2022 Note HNO ID: [id number] Author: Silverio Adair Service: ? Author Type: [...] Silverio Adair June 24, 2022 11:12 AM [facility] 06-24-2022 History of Presen t illness Narrative POPULATION HEALTH NAVIGATION OUTREACH Action/FYI Left vm Pt identified by name and : NO Outreach Outcome/Action Unable to reach patient: Left message MyChart message sent Did you use a PCP flex slot to schedule this appointment? No Reason for Outreach Care Gap or Scheduling/Wellness visits Payer: Payor: [place] MEDICA[place] / Plan: [facility] [place] MEDICA[place] / Product Type: Medicaid / Care [...] 2022 11:12 AM documented in this encounter [facility] 06-19-2022 Note HNO ID: [id number] Author: Sammie Morgan RT(R) Service: Radiology Author [...] RT Gretel(R) June 19, 2022 1:50 PM [facility] 06-19-2022 Note HNO ID: [id number] Author: Kayla Mcgill APRN.PLEAT PATTERNMAKER Service: ? Author Type: Nurse Practitioner Type: Progress Notes Filed: 06/19/2022 2:48 PM Note Text: This note was created using [employer] Water[employer]. Subjective Faustino Cuellar is a 31 year [...] history is provided by the patient. No american sign language interpreter was used. Pain (foot) Pain location: right [...] of toe o (more content not included)... [facility] 07-03-2015 Miscellaneous Notes spk with pt [...] TIME: 3:28 PM RADIOLOGY CALL CENTER INTAKE CLOAK ROOM ATTENDANT: GILBERT EXT:[id number] DATE: June 29, 2015 TIME: 12:16 PM TRACKING #. [id number] REQUESTING PERSON: BARRON PHONE/PAGER: [phone] REQUESTING STAFF: SERGE DAVIS PHONE/PAGER: [phone] ORDERING DESK LOCATION: Q10 If inpatient, patient location: N/A (Note: requests for inpatient's procedures should be given to the O.D. nurse at pager #[phone]) If outpatient, best way to reach patient: PATIENT @ [phone] Best time to call: ANY SCHEDULING: GREER [...] biopsies do not need imaging.) IMAGING: OUTSIDE [facility] Films: Where is study now: LOADED INTO [place] (If the imaging was obtained outside the [facility] system, then it needs to be submitted for review prior to approval.) Note to all persons requesting biopsies: All biopsy requests will be scheduled as quickly as possible, based on the clinical urgency, availability of appointment times, the need to hold anti-thrombolytic therapy (aspirin, blood thinners) and the patient s schedule, including the need for an available tractor trailer driver. If a percutaneous biopsy or drainage is not felt to be safe or an alternative method for establishing a diagnosis is possible, this will be discussed directly with the requesting physician. documented in this encounter [facility] Diagnosis Pain of toe of right foot- Primary Pain in limb Soft tissue mass Disorders of soft tissue, unspecified Cellulitis and abscess of toe of right foot [facility] Diagnosis Mass of right foot [facility] Diagnosis Pain of toe of right foot Pain in limb Soft tissue mass Disorders of soft tissue, unspecified documented in this encounter [facility] for referral (narrative)* Diagnostic Procedure Only (Routine) - Closed Specialty Diagnoses / Procedures Referred By Contac t Referred To Contact XR IMAGING Diagnoses Pain of toe of right foot Soft tissue mass Procedures XR TOE AP/LAT/OBL RIGHT RADEX TOE MINIMUM [address] [place] [address] Xr Imaging Referral ID Status Reason Start Date Expiration Date V isits Requested Visits Authorized [id number] Closed Auto-Generate d Referral 01/28/2023 02/27/2024 1 1 T [facility] for referral (narrative)* Diagnostic Procedure Only (Routine) - Closed Specialty Diagnoses / Procedures Referred By Contac t Referred To Contact XR IMAGING Diagnoses Pain of toe of right foot Soft tissue mass Procedures XR TOE AP/LAT/OBL RIGHT RADEX TOE MINIMUM 2 [place] [address] [place] [address] Referral ID Status Reason Start Date Expiration Date V isits Requested Visits Authorized [id number] Closed Auto-Generate d Referral 01/28/2023 02/27/2024 1 1 T [facility] for visit Narrative* Diagnostic Procedure Only (Routine) - Closed Specialty Diagnoses / Procedures Referred By Contac t Referred To Contact XR IMAGING Diagnoses Pain of toe of right foot Soft tissue mass Procedures XR TOE AP/LAT/OBL RIGHT RADEX TOE MINIMUM 2 [place] [address] [place] [address] Referral ID Status Reason Start Date Expiration Date V isits Requested Visits Authorized [id number] Closed Auto-Generate d Referral 01/28/2023 02/27/2024 1 1 [facility] Reason for Referral Specialty Diagnoses / Procedures Referred By Contac t Referred To Contact MR IMAGING Diagnoses Mass of right foot Procedures MRI FOOT/TOES WO/W IVCON RT MRI LOWER EXTREM OTH/THN JT [facility] & [facility] [address] [place] [address] Mr Imaging Referral ID Status Reason Start Date Expiration Date Visits Requested Visits Authorized [id number] Authorized Auto-Generat ed Referral 07/25/2022 2022 1 1 Specialty Diagnoses / Procedures Referred By Contac t Referred To Contact [facility] Diagnoses Soft tissue mass Diminished pulses in lower extremity Mass of right foot Procedures PVR ANK PRESS NOMAN VAS LAB NON-INVAS PHYSIOLOGIC STD EXTREMITY ART 2 [place] [address] [facility] [address] [place] [address] Referral ID Status Reason Start Date Expiration Date Visits Requested Visits Authorized [id number] Authorized Auto-Generat ed Referral 07/25/2022 07/25/2023 1 1 Specialty Diagnoses / Procedures Referred By Contac t Referred To Contact MR IMAGING Diagnoses Mass of right foot Procedures MRI FOOT/TOES WO/W IVCON RT MRI LOWER EXTREM OTH/THN JT W/O & W/CONTR [facility] Tj Sorto [address] [place] [address] [place] [address] Referral ID Status Reason Start Date Expiration Date V isits Requested Visits Authorized [id number] Closed Auto-Generate d Referral 07/25/2022 2022 1 [...] or prosecute any alcohol or drug abuse patient.[facility] the event this information is protected by the Federal Confidentiality of Alcohol and Drug Abuse Patient Records regulations: The Federal rules restrict any use of the information to criminally investigate or prosecute any alcohol or drug abuse patient.[facility] AdministrationIn the event this information is protected by the Federal Confidentiality of Alcohol and Drug Abuse Patient Records regulations: The Federal rules restrict any use of the information to criminally investigate or prosecute any alcohol or drug abuse patient.[facility] AdministrationIn the event this information is protected by the Federal Confidentiality of Alcohol and Drug Abuse Patient Records regulations: The Federal rules restrict any use of the information to criminally investigate or prosecute any alcohol or drug abuse patient.[facility] AdministrationIn the event this information is protected by the Federal Confidentiality of Alcohol and Drug Abuse Patient Records regulations: The Federal rules restrict any use of the information to criminally investigate or prosecute any alcohol or drug abuse patient.[facility] AdministrationIn the event this information is protected by the Federal Confidentiality of Alcohol and Drug Abuse Patient Records regulations: The Federal rules restrict any use of the information to criminally investigate or prosecute any alcohol or drug abuse patient.[facility] AdministrationIn the event this information is protected by the Federal Confidentiality of Alcohol and Drug Abuse Patient Records regulations: The Federal rules restrict any use of the information to criminally investigate or prosecute any alcohol or drug abuse patient.[facility] AdministrationIn the event this information is protected by the Federal Confidentiality of Alcohol and Drug Abuse Patient Records regulations: The Federal rules restrict any use of the information to criminally investigate or prosecute any alcohol or drug abuse patient.[facility] AdministrationIn the event this information is protected by the Federal Confidentiality of Alcohol and Drug Abuse Patient Records regulations: The Federal rules restrict any use of the information to criminally investigate or prosecute any alcohol or drug abuse patient.[facility] AdministrationIn the event this information is protected by the Federal Confidentiality of Alcohol and Drug Abuse Patient Records regulations: The Federal rules restrict any use of the information to criminally investigate or prosecute any alcohol or drug abuse patient.[facility] Reason for Visit (unrecogniz ed section and content) Reason Comments New Pain Swelling Specialty Diagnoses / Procedures Referred By Contac t Referred To Contact Podiatry Diagnoses Pain of toe of right foot Procedures CONSULT TO PODIATRY OFFICE/OUTPATIENT NEW HIGH MDM 60-74 MINUTES Kayla Mcgill, ADVERTISING INSERTER.PLEAT PATTERNMAKER [address] [place] [address] Referral ID Status Reason Start Date Expiration Date V isits Requested Visits Authorized [id number] Closed PCP Requested Referral 06/19/2022 06/19/2023 1 1 Reason Comments Orders Reason Comments Patient Update Reason Comments Established Patient Follow Up Pain Swelling Specialty Diagnoses / Procedures Referred By Contac t Referred To Contact MR IMAGING Diagnoses Mass of right foot Procedures MRI FOOT/TOES WO/W IVCON RT MRI LOWER EXTREM OTH/THN JT W/O & W/CONTR [facility] Testrake, Tj [address] [place] [address] [place] [address] Referral ID Status Reason Start Date Expiration Date V isits Requested Visits Authorized [id number] Closed Auto-Generate d Referral 07/25/2022 2022 1 1 Care Teams (unrecognized sec tion and content) [facility] Upholsterer Relationship Specialty Start Date End Date Pcp, No PCP - General 02/02/22 08/20/22 Spring Upholsterer Relationship Specialty Start Date End Date Pcp, No, ADVERTISING INSERTER PCP - General 02/02/22 08/20/22 (unrecognized sect ion and content) No Status Records FoundNo Status Records Found INFORMATION SOURCE (unrecogn ized section and content) DATE CREATED AUTHOR AUTHOR'S ORGANIZ ATION 04/23/2023 [facility] FOR RECORDS PERTAINING TO PATIENTS WHO ARE [...] BE BASED ON THE PRIMARY CLINICAL RECORDS. [place] [address] [facility]. provides no warranty or guarantee of the accuracy or completeness of information in this document.
[2023-08-27 22:53] LABS: Troponin-I HS 4 pg/mL (3.0-78.0)
[2023-08-27 23:07] VITALS: BMI 21.9
[2023-08-27] MEDS: 0.9% Normal Saline (1000mL) 1,000 ML 100 ML IV (23:21)
--- NOTE | 2023-08-27 23:45 | ECHOD_ITS ---
Reason For Study: Syncope Procedure This was a 2D Doppler, Color Flow transthoracic echocardiogram. Exam performed portable in patient room. Left Ventricle Normal size and thickness. The left ventricular ejection fraction is 65 %. Normal diastololic function. Right Ventricle Normal right ventricle. Atria The left and right atria are normal. Mitral Valve Mild (1+) mitral valve insufficiency. Tricuspid Valve Mild tricuspid valve insufficiency. Normal pulmonary artery pressure. Aortic Valve Trisinus/trileaflet aortic valve. Pulmonic Valve The pulmonic valve is not well visualized. Great Vessels Normal sized aortic root. Pericardium/Pleural No pericardial effusion. MMode/2D Measurements & Calculations LVIDd: 4.1 cm IVSd: 0.94 cm Ao root diam: 3.2 cm LVIDs: 2.6 cm LVPWd: 1.0 cm RVDd: 3.3 cm FS: 35.1 % LAV(MOD-bp): 34.9 ml LVAd ap4: 28.6 cm2 LVAd ap2: 29.6 cm2 LAV(MOD-bp) Indexed: 19.6 ml/m2 LVLd ap4: 7.9 cm LVLd ap2: 8.4 cm LAV(MOD-sp2): 29.7 ml EDV(MOD-sp4): 83.7 ml EDV(MOD-sp2): 88.5 ml LAV(MOD-sp4): 36.4 ml EDV(sp4-el): 87.6 ml EDV(sp2-el): 88.6 ml LVAs ap4: 16.0 cm2 LVAs ap2: 16.0 cm2 LVLs ap4: 7.0 cm LVLs ap2: 7.3 cm ESV(MOD-sp4): 31.1 ml ESV(MOD-sp2): 30.0 ml ESV(sp4-el): 31.0 ml ESV(sp2-el): 30.1 ml EF(MOD-sp4): 62.9 % EF(MOD-sp2): 66.1 % EF(sp4-el): 64.6 % SV(MOD-sp4): 52.6 ml SV(MOD-sp2): 58.4 ml SV(sp4-el): 56.6 ml LA dimension(2D): 3.0 cm LA A4 area: 14.8 cm2 RA A4 area: 12.7 cm2 TAPSE: 1.8 cm Time Measurements MV dec time: 0.19 sec Doppler Measurements & Calculations MV E max kevin: 62.6 cm/sec Lat Peak E' Kevin: 19.6 cm/sec Med Peak E' Kevin: 13.6 cm/sec MV A max kevin: 47.8 cm/sec E/E' lat: 3.2 E/E' med: 4.6 MV E/A: 1.3 MV dec slope: 334.2 cm/sec2 Ao V2 max: 109.1 cm/sec LV V1 max: 85.7 cm/sec Ao max P.8 mmHg LV V1 max P.9 mmHg Ao V2 mean: 77.2 cm/sec LV V1 mean P.7 mmHg Ao mean P.6 mmHg LV V1 mean: 60.3 cm/sec Ao V2 VTI: 22.3 cm LV V1 VTI: 18.8 cm AV (velocity ratio): 0.84 PA V2 max: 78.5 cm/sec TR max kevin: 224.2 cm/sec TR max P.1 mmHg ECHO/Echo Complete Interpretation Summary The left ventricular ejection fraction is 65 %. Mild (1+) mitral valve insufficiency. Mild tricuspid valve insufficiency. Ordering Physician: aPnkaj Rao Referring Physician: Princess PCP Performed By: Yanira Sheth RDCS
[2023-08-27 23:55] VITALS: O2SAT 99
[2023-08-27] MEDS: levETIRAcetam 500 MG Tablet PO (23:59)
[2023-08-28] VITALS (9 sets, daily range): BP systolic 112–136; BP diastolic 60–90; PULSE 70–98; RESP 14–18; TEMP 36.6–37; O2SAT 94–100
[2023-08-28 00:33] LABS: Magnesium 2.2 mg/dL (1.6-2.6); Phosphorus 3.8 mg/dL (2.5-4.9); Troponin-I HS 4 pg/mL (3.0-78.0)
[2023-08-28 02:48] LABS: Troponin-I HS 6 pg/mL (3.0-78.0)
--- NOTE | 2023-08-28 05:55 | MRI_ITS ---
HISTORY: seizure, FAMILY HX OF ANEURYSM, SYNCOPE. TECHNIQUE: Multiplanar and multisequence MR images of the brain were obtained before and after the intravenous administration of 13 mL Clariscan. 472 images. COMPARISON: CT prior day. FINDINGS: BRAIN PARENCHYMA: No significant signal abnormality or enhancing lesion in the brain parenchyma. No abnormal focus of restricted diffusion to suggest acute infarct. No acute intracranial hemorrhage identified. Grossly symmetric appearance of the medial temporal lobes. CSF SPACES: Cerebral ventricles, cortical sulci, and other extra-axial CSF spaces within normal limits in size for age. No significant midline shift or other mass effect.No extra-axial fluid collection. VASCULAR SYSTEM: Major intracranial flow voids are maintained. PARANASAL SINUSES AND MASTOID AIR CELLS: No significant air fluid levels. ORBITS: Symmetric contents. MRI/Brain W/WO Contrast IMPRESSION: Unremarkable examination. No evidence for significant signal abnormality in the brain or enhancing intracranial mass. Electronically Signed: Lilian Aguiar MD at 13:32 EST ,
--- NOTE | 2023-08-28 07:06 | PCM.PN.HOSP ---
Reason for Visit Reason for Visit: Diagnoses Syncope and collapse (08/27/23) Subjective Subjective Patient with no acute events overnight per self and per nursing report. Patient has had no further episodes of syncope since presentation. He notes these have been going on for quite some time and there was only 1 time that he had loss of bladder and this was because he had a very full bladder. He denies otherwise losing bowel or biting his tongue. Discussed his polysubstance abuse and noted that illicit drugs certainly could lower seizure threshold especially unsure of what agents may be in these items and strongly encouraged to clean status. Discussed frankly his substance abuse and asked if he would be amenable to hepatitis and syphilis testing for coinfection to which she was amenable. Discussed plan of care which included echocardiogram, EEG, MRI and neurology involvement and if no concerning findings possible discharge to home today. Patient denies fevers, chills, nausea, emesis, abdominal pain, chest pain or dyspnea. Objective Data Objective Data Vital Signs: Vital Signs Temp Pulse Resp BP Pulse Ox O2 Del Method 98 F 70 14 116/77 94 Room Air 08/28/23 05:36 08/28/23 05:36 08/28/23 05:36 08/28/23 05:36 08/28/23 05:36 08/28/23 05:36 Oxygen Delivery Method Room Air Weight: 144 lb 9.972 oz Body Mass Index (BMI) 21.9 Intake & Output: Intake and Output for Last 24 Hours 08/26/23 08/27/23 08/28/23 23:59 23:59 23:59 Intake Total 1000 / 1959 960 / 960 Output Total 600 / 600 Balance 999 / 1959 360 / 360 Lab / Micro Data 08/27/23 16:58 08/27/23 16:58 Labs: Laboratory Results - last 24 hr 08/27/23 16:58: WBC 7.3, RBC 4.65, Hgb 14.7, Hct 43.2, MCV 92.9, MCH 31.6, MCHC 34.0, RDW Std Deviation 45.1 H, RDW Coeff of Carlyn 13.2, Plt Count 243, MPV 8.4, Immature Gran % (Auto) 0.300, Neut % (Auto) 55.9, Lymph % (Auto) 29.0, [place] % (Auto) 11.4 H, Eos % (Auto) 2.6, Baso % (Auto) 0.8, Absolute Neuts (auto) 4.1, Absolute Lymphs (auto) 2.10, Nucleated RBC % 0, Sodium 141, Potassium 3.7, Chloride 110 H, Carbon Dioxide 28.0, Anion Gap 3 L, BUN 12, Creatinine 0.87, Estim Creat Clear Calc 109.96, Est GFR (MDRD) Af Amer 129, Est GFR (MDRD) Non-Af 107, BUN/Creatinine Ratio 13.8, Glucose 88, Calcium 9.6, Total Bilirubin 0.60, AST 17, ALT 26, Alkaline Phosphatase 93, Troponin I High Sens 4, Total Protein 6.9, Albumin 3.9, Globulin 3.0, Albumin/Globulin Ratio 1.3, Ethyl Alcohol 3.0 08/27/23 20:00: Urine Opiates Screen NEGATIVE, Urine Methadone Screen NEGATIVE, Ur Barbiturates Screen NEGATIVE, Ur Phencyclidine Scrn NEGATIVE, Ur Amphetamines Screen POSITIVE H, MDMA (Ecstasy) Screen NEGATIVE, U Benzodiazepines Scrn NEGATIVE, Urine Cocaine Screen POSITIVE H, U Cannabinoids Screen NEGATIVE, Ur Drug Screen Comment 08/27/23 23:59: Phosphorus 3.8, Magnesium 2.2, Troponin I High Sens 4 08/28/23 02:00: Troponin I High Sens 6 Radiography Diagnostic Testing: Radiology Impression Chest X-Ray 08/27/23 17:05 IMPRESSION: Normal x-ray examination of the chest. Electronically Signed: Pete Vega MD at 18:10 EST Reading Location ID and State: [address] [place] [address] Tel , Service support , Brain CT 08/27/23 17:49 IMPRESSION: Normal unenhanced CT scan of the brain. Electronically Signed: Pete Vega MD at 18:49 EST Reading Location ID and State: [id number] Tel , Service support , Chest CTA 08/27/23 17:49 IMPRESSION: Normal CTA chest examination, without a demonstrated pulmonary embolism or arterial dissection. Electronically Signed: Pete Vgea MD at 19:01 EST , Facial/Sinus 08/27/23 17:49 IMPRESSION: Nasal bone fracture, age indeterminate. No mandibular fracture noted. Electronically Signed: Pete Vega MD at 18:54 EST Reading Location ID and State: [employer] / [place] Tel , Service support , Head/Neck CTA 08/27/23 20:00 IMPRESSION: No aneurysm identified. Left vertebral artery anatomic variant as above. Electronically Signed: Pete Vega MD at 21:10 EST Reading Location ID and State: [employer] / [place] Tel , Service support , Physical Exam Narrative Physical Examination: General: Awake, alert, oriented x 3 and cooperative, laying in the PCU bed, no acute distress. Skin: Normal color, normal turgor, no icterus, no cyanosis except for various picked and scratched regions. HEENT: AT/NC, EOMI, PERRLA, MMM. Lungs: CTA bilaterally, moderate effort, mild decrease BL bases, no rales, ronchi or wheezing. Heart: Regular rate and rhythm; no gallop, rub audible. Abdomen: Soft, NTTP, ND, normal BS. Extremities: No cyanosis, clubbing, or edema. Neurological: Patient awake, alert, oriented as noted, cognitive function intact; pupils equally reactive to light and accommodation, cranial nerves II-XII grossly normal, moving all 4 extremities, no focal deficits, strength preserved. Psychiatric: Affect appears normal, no acute evidence of depressive or anxiety feelings. Assessment & Plan Assessment/Plan (1) Syncope: PLAN: Plan The patient is a 33 y/o M w/ PMHx: Anxiety and Depression, Asthma, HIV, PCKD, Hx Intestinal/possibly stomach CA unclear type s/p resection, GERD, HTN who presents to the [facility] ED on 08/27/23 with persistent episodes of syncope with no dyspnea or chest pain with reported headache and fatigue each time prior to losing consciousness with questionable body jerking with occasional event with no loss of bowel or bladder. #1. Syncopal Event, questionable possible seizure activity: Workup in the ED included T98.4, heart initially 102 with repeat while in the ED 70-90, BP 136/99, respiratory rate 25, 100% on room air, CBC with WBC 7.3, and 114.7, platelet 243 without marked shift, CMP with chloride 110 otherwise unremarkable, urine drug screen with positive amphetamine and cocaine, alcohol 3, troponin 4 with repeat delta 4, CT brain with no acute intracranial findings, chest x-ray with no acute cardiopulmonary findings, chest CTA unremarkable, CT facial bones with a nasal bone fracture age-indeterminate likely old with no mandibular fracture noted, CTA head and neck with no aneurysm, left vertebral artery anatomic variant, EKG with sinus rhythm with no acute evidence of ischemia. Unclear etiololgy EKG in ED w/ sinus rhythm without evidence of acute ischemia, initial trop normal with repeat delta similar. Admitted to PCU, repeat serial cardiac enzymes with initial 4-->4-->6. Orthostatic vital signs in the ED unremarkable. Will maintain on seizure precautions, MRI brain ordered, EEG ordered, maintained on keppra 500 mg BID per Neurology recommendation, ECHO also pending. CM/SW consulted for discharge planning. #2. Polysubstance abuse: Urine drug screen with cocaine and methamphetamine, encourage clean status, case management/social work consulted, certainly could be contributing to #1. #3. HIV: Per patient viral loads are undetectable, following outpatient with Dr. Bustillo infectious disease, maintained on Biktarvy. #4. History intestinal/possibly stomach cancer: Unclear exact history regarding this, status post reported resection, unclear status, encourage continued outpatient follow-up. #5. Homelessness: Patient without fdc discharge and especially given concurrent polysubstance abuse is at high risk for adherence to treatment with subsequent increased risk for complications as well as readmission. Case management/social work consulted. #6. Hypertension: Noted history however per current list not on regimen, will monitor BP and add regimen if appropriate, as needed IV hydralazine in interim. #7. Anxiety and depression: Not on any chronic regimen per review of current list, encourage continued outpatient follow-up. Reportedly patient had previously also been on Prozac but it is not on patient medication. #8. Tobacco Abuse: Encouraged cessation, inpatient consultation per RT, NR if desired. #9. Chronic asthma: PRN albuterol, HOB, IS parameters. #10. GERD: We will continue patient on PPI. #11. DVT prophylaxis: Observation admission, low risk. Charges/Coding Visit Charges Inpatient E&M: 18721 Subs Hosp L2
[2023-08-28 07:56] LABS: Thyroid Stim Hormone (TSH) 1.59 uIU/mL (0.358-3.74); Troponin-I HS 5 pg/mL (3.0-78.0)
[2023-08-28] MEDS: 0.9% Normal Saline (1000mL) 1,000 ML 100 ML IV (07:56)
[2023-08-28 09:25] LABS: Syphilis Antibodies Non-reactive
[2023-08-28 09:38] LABS: Hepatitis B Surface Antibody Non-Reactive; Hepatitis B Surface Antigen Non-Reactive (Nonreactive); Hepatitis C Antibody Non-Reactive (Nonreactive)
[2023-08-28] MEDS: Pantoprazole Sodium 40 MG Tablet PO (09:46)
[2023-08-28] MEDS: levETIRAcetam 500 MG Tablet PO (09:46)
--- NOTE | 2023-08-28 10:37 | CON.PCM.ID_ITS ---
Assessment & Plan Assessment/Plan (1) HIV (human immunodeficiency virus infection): PLAN: On biktarvy. 05/2023 CD4 818, VL 50. Reports compliance. CD4, VL, and syph Ab pending here. Neuro consulted. Imaging of head showed no abnormal ities. May need LP. Tox (+) cocaine and amphetamines. Will follow, thank you (2) Syncope: HPI Consult Data Date of Consult: 08/28/23 HPI Narrative Reason for Consultation: hiv HPI Narrative: JOHNNY UNGER, is a 33 M with HIV, reports compliance with biktarvy, presented with 7 months of intermittent syncope and collapse, some headache, some vision changes. Reports friends have seen him thrashing. Denies ivdu. Tox here (+) cocaine and meth. CT and MRI done, admitted, continued on biktarvy. Reports dog dx with Lyme, he has not noticed any ticks or rash. Full ROS performed and neg except as noted above. [facility] Medical History (Updated 08/28/23 @ 10:[address] Giuliano Bustillo MD) Acid reflux Asthma Cancer of intestinal tract Depression HIV (human immunodeficiency virus infection) Hypertension Polycystic kidney disease Home Medications omeprazole 20 mg tablet,delayed release 20 mg PO DAILY 01/19/22 [History Last Taken Unknown] bictegravir 50 mg-emtricitabine 200 mg-tenofovir alafenam 25 mg tablet (Biktarvy) 1 tab PO DAILY 11/25/22 [History Last Taken 01/18/23] cholecalciferol (vitamin D3) 25 mcg (1,000 unit) capsule (Vitamin D3) 25 mcg PO BID 11/25/22 [History Last Taken Unknown] albuterol sulfate 90 mcg/actuation aerosol inhaler 1 inh inhalation DAILY PRN shortness of breath or wheezing 08/27/23 [History Last Taken Unknown] Allergy/AdvReac Type Severity Reaction Status Date / Time meloxicam [From Mobic] Allergy Severe Anaphylaxis Verified 08/27/23 17:31 metoclopramide [From Reglan] Allergy Other Verified 08/27/23 17:31 Antihistamines - Alkylamine AdvReac Other Verified 08/27/23 17:31 Antihistamines - Ethanolamine AdvReac Other Verified 08/27/23 17:31 Antihistamines - AdvReac Other Verified 08/27/23 17:31 Ethylenediamine Antihistamines - Piperazine AdvReac Other Verified 08/27/23 17:31 Antihistamines - Piperidine AdvReac Other Verified 08/27/23 17:31 prochlorperazine AdvReac Other Verified 08/27/23 17:31 shellfish derived AdvReac Abd Verified 08/27/23 17:31 cramps/diarrhea Family History no significant family his Surgical History H/O wrist surgery History of bowel resection Hx of tonsillectomy Social History household members: none housing: homeless Smoking Status: Current every day smoker tobacco type: cigarettes substance use type: does not use Physical Exam Const alert, oriented x3 and no apparent distress General Appearance: cooperative HEENT normocephalic and head/scalp atraumatic HEENT Narrative: no thrush Eyes PERRL and EOMs intact bilaterally Neck supple and No nodes Resp normal air movement and clear to auscultation bilaterally Cardio regular rate and regular rhythm GI soft to palpation, non-tender and non-distended Skin no rashes or lesions noted Neuro CN's II-XII intact bilaterally Lab / Micro Data Attestation: I reviewed the patient's lab results. 08/27/23 16:58 08/27/23 16:58 Labs: Laboratory Results - last 24 hr 08/27/23 16:58: WBC 7.3, RBC 4.65, Hgb 14.7, Hct 43.2, MCV 92.9, MCH 31.6, MCHC 34.0, RDW Std Deviation 45.1 H, RDW Coeff of Carlyn 13.2, Plt Count 243, MPV 8.4, Immature Gran % (Auto) 0.300, Neut % (Auto) 55.9, Lymph % (Auto) 29.0, [place] % (Auto) 11.4 H, Eos % (Auto) 2.6, Baso % (Auto) 0.8, Absolute Neuts (auto) 4.1, Absolute Lymphs (auto) 2.10, Nucleated RBC % 0, Sodium 141, Potassium 3.7, Chloride 110 H, Carbon Dioxide 28.0, Anion Gap 3 L, BUN 12, Creatinine 0.87, Estim Creat Clear Calc 109.96, Est GFR (MDRD) Af Amer 129, Est GFR (MDRD) Non-Af 107, BUN/Creatinine Ratio 13.8, Glucose 88, Calcium 9.6, Total Bilirubin 0.60, AST 17, ALT 26, Alkaline Phosphatase 93, Troponin I High Sens 4, Total Protein 6.9, Albumin 3.9, Globulin 3.0, Albumin/Globulin Ratio 1.3, Ethyl Alcohol 3.0 08/27/23 20:00: Urine Opiates Screen NEGATIVE, Urine Methadone Screen NEGATIVE, Ur Barbiturates Screen NEGATIVE, Ur Phencyclidine Scrn NEGATIVE, Ur Amphetamines Screen POSITIVE H, MDMA (Ecstasy) Screen NEGATIVE, U Benzodiazepines Scrn NEGATIVE, Urine Cocaine Screen POSITIVE H, U Cannabinoids Screen NEGATIVE, Ur Drug Screen Comment 08/27/23 23:59: Phosphorus 3.8, Magnesium 2.2, Troponin I High Sens 4 08/28/23 02:00: Troponin I High Sens 6 08/28/23 06:30: Troponin I High Sens 5, TSH 1.59, Syphilis Total Ab Non- reactive, Hep Bs Antigen Non-Reactive, Hep Bs Antibody Non-Reactive, Hepatitis C Antibody Non-Reactive Imaging Radiology Impression Chest X-Ray 08/27/23 17:05 IMPRESSION: Normal x-ray examination of the chest. Electronically Signed: Pete Vega MD at 18:10 EST Reading Location ID and State: [employer] Tel , Service support , Brain CT 08/27/23 17:49 IMPRESSION: Normal unenhanced CT scan of the brain. Electronically Signed: Pete Vega MD at 18:49 EST Reading Location ID and State: [employer] / [place] Tel , Service support , Chest CTA 08/27/23 17:49 IMPRESSION: Normal CTA chest examination, without a demonstrated pulmonary embolism or arterial dissection. Electronically Signed: Pete Vega MD at 19:01 EST Reading Location ID and State: [employer] [facility] Tel , Service support , Facial/Sinus 08/27/23 17:49 IMPRESSION: Nasal bone fracture, age indeterminate. No mandibular fracture noted. Electronically Signed: Pete Vega MD at 18:54 EST Reading Location ID and State: [facility] / [place] Tel , Service support , Head/Neck CTA 08/27/23 20:00 IMPRESSION: No aneurysm identified. Left vertebral artery anatomic variant as above. Electronically Signed: Pete Vega MD at 21:10 EST Reading Location ID and State: [facility] / [place] Tel , Service support ,
--- NOTE | 2023-08-28 10:44 | NEURO.EEG ---
EEG Results Procedure Details EEG Procedure Details: EEG Report Patient: Faustino Cuellar Date of : 1990 Sex: Male Age: 33 years old Height: 0.0 in in Inpatient routine EEG report: Study start time: 08/28/2023 08:55 AM End Time: 08/28/2023 09:18 AM History: Acid reflux Asthma Cancer of intestinal tract Depression HIV (human immunodeficiency virus infection) Hypertension Polycystic kidney disease Indication: 33 year old admitted with episode of syncope. Technical Description: This is a 21-channel digital EEG recording with time-locked video and single-channel electrocardiogram. Electrodes are placed according to the 10 to 20 International System. Additional T1 and T2 electrodes were placed. The patient was monitored continuously by EEG technicians by video and EEG recording was reviewed intermittently with annotations to the EEG record made every two hours. Portions of this record are reviewed using bandpass filters of 1 to 70 Hz and sensitivity of 7mV/mm. EEG DESCRIPTION Background: This recording was obtained during awake and drowsy state. In the maximally alert state, a posterior dominant rhythm was a symmetric, reactive, well-modulated 9 Hz with a normal frequency-amplitude gradient. During drowsiness, there was attenuation of the waking background. Stage II sleep architecture was normal in morphology and distribution. Slow wave sleep was marked by appropriate bursts of diffuse delta activity. Activation Procedures: Photic stimulation induced normal physiological response. Sporadic Epileptiform Discharges: none Focal slow activity: none Rhythmic or Periodic activity: none Seizures: none Patient Events: none EEG DIAGNOSIS Normal EEG CLINICAL INTERPRETATION This routine EEG is normal and was performed mostly during sleep state. No epileptiform activity or seizures were noted during this period of recording. EEG Read by: Deborah Miles MD [facility] [place] Physicians HONORIO Dean M.D. Neurology
--- NOTE | 2023-08-28 11:52 | CASEMGMT ---
SW met with patient as patient is homeless and he also indicated troubles with food and utilities. SW introduced self and role at [facility]. Patient stated his mom evicted him from his grandfather's home. Patient has a car. In the past patient has stayed at [facility], but that was not a good environment as it is not clean and he has HIV so he is susceptible to illness. Patient also has a dog. None of patient's friends are willing to allow him to stay with them with his dog. Patient said his dog is at the [facility]. Patient was interested in information on disability and any assistance he can get with dog food. SW called [facility] in [place] and [facility] in [place] none of which allow pets. The [facility] opens at noon. SW printed out their information. Per their website [facility] also has a program were individual who qualify can obtain pet food from their pantry. SW provided patient with this information, homeless shelters, how to apply for disability, [employer] [address] card. SW told patient about [employer] housing program and showed him the phone number on the street card. SW also showed patient the list of churches on the street card that provide hot meals. Patient was thankful for the resources. SW also asked patient about his drug use. Patient states it has been a duffy. He knows it is not good for him. Patient does go to counseling at [facility]. His next appointment is next week. Kymberly ECHOLS
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
--- NOTE | 2023-08-28 16:52 | PCM.DC.SUM ---
Providers Date of Admission: 08/27/23 Primary Care Physician: No Primary Care Phys Consultations 08/27/23 17:56 Tele [Consult: Tele-Neurology] Routine Consulting Provider: [facility] Reason for Consult: seizure EMERGENT Consult: Yes Notified: Yes Date Notified: 08/27/23 Time Notified: 17:56 Method of Notification: Verbal Nursing Unit Staff Notify [facility] of Tele-Neurology Consult: Yes Tele [Consult: Tele-Neurology] Stat Consulting Provider: [facility] Reason for Consult: seizure EMERGENT Consult: Yes MD Notified: Yes Date Notified: 08/27/23 Time Notified: 17:57 Method of Notification: Verbal Nursing Unit Staff Notify [facility] of Tele-Neurology Consult: Yes 08/27/23 23:42 Consult: Infectious Disease Routine Consulting Provider: Giuliano Bustillo Reason for Consult: HIV unclear of status, nonadherent EMERGENT Consult: No Notified: Yes Date Notified: 08/27/23 Time Notified: 23:46 Method of Notification: Text Consult: Tele-Neurology Routine Consulting Provider: [facility] Reason for Consult: seizure with time gap/syncope EMERGENT Consult: No Notified: Yes Date Notified: 08/27/23 Time Notified: 23:44 Method of Notification: ED Physician Initiated Comments:: ED physician Nursing Unit Staff Notify [facility] of Tele-Neurology Consult: Yes Reason For Visit: SYNCOPE Diagnosis Discharge Diagnosis (1) Syncope: Status: Acute Code(s): R55 - Syncope and collapse Plan: Discharge Diagnoses: #1. Syncopal Event, questionable possible seizure activity #2. Polysubstance abuse (Urine drug screen with cocaine and methamphetamine) #3. HIV #4. History intestinal/possibly stomach cancer, Unclear exact history regarding this, status post reported resection #5. Homelessness (Patient without prison discharge and especially given concurrent polysubstance abuse felt high risk for adherence to treatment with subsequent increased risk for complications as well as readmission) #6. Hypertension, History of, BP normal range upon discharge #7. Anxiety and depression #8. Tobacco Abuse #9. Chronic asthma #10. GERD Medications at Discharge Home Medications omeprazole 20 mg tablet,delayed release 20 mg PO DAILY 01/19/22 bictegravir 50 mg-emtricitabine 200 mg-tenofovir alafenam 25 mg tablet (Biktarvy) 1 tab PO DAILY 05/08/23 cholecalciferol (vitamin D3) 25 mcg (1,000 unit) capsule (Vitamin D3) 25 mcg PO BID 11/25/22 albuterol sulfate 90 mcg/actuation aerosol inhaler 1 inh inhalation DAILY PRN shortness of breath or wheezing 08/27/23 Hospital Course Operations None Procedures 2-D Echocardiogram, Electroencephalogram and EKG Summary of Care Provided Minutes Spent on Discharge: 35 Hospital Course: The patient is a 33 y/o M w/ PMHx: Polysubstance abuse, Anxiety and Depression, Asthma, HIV, PCKD, Hx Intestinal/possibly stomach CA unclear type s/p resection, GERD, HTN who presented to the [facility] ED on 08/27/23 with persistent episodes of syncope with no dyspnea or chest pain with reported headache and fatigue each time prior to losing consciousness with questionable body jerking with occasional event with no loss of bowel or bladder. Workup in the ED included T98.4, heart initially 102 with repeat while in the ED 70-90, BP 136/99, respiratory rate 25, 100% on room air, CBC with WBC 7.3, and 114.7, platelet 243 without marked shift, CMP with chloride 110 otherwise unremarkable, urine drug screen with positive amphetamine and cocaine, alcohol 3, troponin 4 with repeat delta 4, CT brain with no acute intracranial findings, chest x-ray with no acute cardiopulmonary findings, chest CTA unremarkable, CT facial bones with a nasal bone fracture age-indeterminate likely old with no mandibular fracture noted, CTA head and neck with no aneurysm, left vertebral artery anatomic variant, EKG with sinus rhythm with no acute evidence of ischemia. Unclear etiololgy EKG in ED w/ sinus rhythm without evidence of acute ischemia, initial trop normal with repeat delta similar. Admitted to PCU, repeat serial cardiac enzymes with initial 4-->4-->6-->5. Orthostatic vital signs in the ED unremarkable. Maintained on seizure precautions. MRI of the brain with no acute intracranial finding, echocardiogram with LVEF 65% with mild MVI, mild TVI, EEG normal with no concerning findings. Syphilis and hepatitis nonreactive. Magnesium 2.2. TSH 1.59. Upon admission maintained on keppra 500 mg BID pending work-up. Discussed with patient polysubstance abuse certainly could be related with these episodes with noted cocaine and methamphetamine on UDS with possible other agents as well with encouraged clean status with CM/SW consulted. Infectious disease consulted upon admission with pending CD4, VL, acute hepatitis panel and lyme screen with reflex per their service at discharge. Patient maintained during admission on biktarvy w/ most recent prior 05/2023 CD4 818, VL 50. Also per ID patient reported canine with lyme disease thus lyme assessment also obtained and pending upon discharge w/ encouraged continued outpatient follow-up with Infectious disease. Case management and social work discussed his homelessness status and he was given information on places to stay and how to obtain more resources. Patient evaluated per Neurology and decision to maintain on keppra regimen given still concerns based on his history and also offered him transition to [facility] maintain campus for EMU stay rather than outpatient evaluation given concerns over the recurrence. Neurology services assisted in arranging transfer and patient was accepted per the Neurology service by Dr. Chandler. Weight / BMI Weight Weight: 144 lb 9.972 oz Body Mass Index (BMI) 21.9 ABG / Lab / Microbiology Data 08/27/23 16:58 08/27/23 16:58 Laboratory: Laboratory Results - last 24 hr 08/27/23 16:58: WBC 7.3, RBC 4.65, Hgb 14.7, Hct 43.2, MCV 92.9, MCH 31.6, MCHC 34.0, RDW Std Deviation 45.1 H, RDW Coeff of Carlyn 13.2, Plt Count 243, MPV 8.4, Immature Gran % (Auto) 0.300, Neut % (Auto) 55.9, Lymph % (Auto) 29.0, [place] % (Auto) 11.4 H, Eos % (Auto) 2.6, Baso % (Auto) 0.8, Absolute Neuts (auto) 4.1, Absolute Lymphs (auto) 2.10, Nucleated RBC % 0, Sodium 141, Potassium 3.7, Chloride 110 H, Carbon Dioxide 28.0, Anion Gap 3 L, BUN 12, Creatinine 0.87, Estim Creat Clear Calc 109.96, Est GFR (MDRD) Af Amer 129, Est GFR (MDRD) Non-Af 107, BUN/Creatinine Ratio 13.8, Glucose 88, Calcium 9.6, Total Bilirubin 0.60, AST 17, ALT 26, Alkaline Phosphatase 93, Troponin I High Sens 4, Total Protein 6.9, Albumin 3.9, Globulin 3.0, Albumin/Globulin Ratio 1.3, Ethyl Alcohol 3.0 08/27/23 20:00: Urine Opiates Screen NEGATIVE, Urine Methadone Screen NEGATIVE, Ur Barbiturates Screen NEGATIVE, Ur Phencyclidine Scrn NEGATIVE, Ur Amphetamines Screen POSITIVE H, MDMA (Ecstasy) Screen NEGATIVE, U Benzodiazepines Scrn NEGATIVE, Urine Cocaine Screen POSITIVE H, U Cannabinoids Screen NEGATIVE, Ur Drug Screen Comment 08/27/23 23:59: Phosphorus 3.8, Magnesium 2.2, Troponin I High Sens 4 08/28/23 02:00: Troponin I High Sens 6 08/28/23 06:30: Troponin I High Sens 5, TSH 1.59, Syphilis Total Ab Non-reactive, Hep Bs Antigen Non-Reactive, Hep Bs Antibody Non-Reactive, Hepatitis C Antibody Non-Reactive Radiography Diagnostic Testing: Radiology Impression Chest X-Ray 08/27/23 17:05 IMPRESSION: Normal x-ray examination of the chest. Electronically Signed: Pete Vega MD at 18:10 EST Reading Location [facility] Tel , Service support , Brain CT 08/27/23 17:49 IMPRESSION: Normal unenhanced CT scan of the brain. Electronically Signed: Pete Vega MD at 18:49 EST Reading Location ID and State: [facility] Tel , Service support , Chest CTA 08/27/23 17:49 IMPRESSION: Normal CTA chest examination, without a demonstrated pulmonary embolism or arterial dissection. Electronically Signed: Pete Vega MD at 19:01 EST Reading Location ID and State: [facility] Tel , Service support , Facial/Sinus 08/27/23 17:49 IMPRESSION: Nasal bone fracture, age indeterminate. No mandibular fracture noted. Electronically Signed: Pete Vega MD at 18:54 EST , Head/Neck CTA 08/27/23 20:00 IMPRESSION: No aneurysm identified. Left vertebral artery anatomic variant as above. Electronically Signed: Pete Vega MD at 21:10 EST , Echocardiogram 08/27/23 23:45 Interpretation Summary The left ventricular ejection fraction is 65 %. Mild (1+) mitral valve insufficiency. Mild tricuspid valve insufficiency. Ordering Physician: Pankaj Rao Referring Physician: Princess PCP Performed By: Yanira Sheth RDCS Brain MRI 08/28/23 05:55 IMPRESSION: Unremarkable examination. No evidence for significant signal abnormality in the brain or enhancing intracranial mass. Electronically Signed: Lilian Aguiar MD at 13:32 EST , Meaningful Use Info Meaningful Use Diagnoses (Choose all that apply): None applicable Discharge Plan Admission Admit Date/Time: 08/27/23 21:48 Primary Reason for Your Visit: Syncopal event, Possible Seizure activity, Polysubstance abuse Attending Provider: Simin Moseley Primary Care Provider: Care Physician,No Primary Consulting Providers: Addie Ayala; Minda Villagran; Shekhar Dunne; Richard García; Martir Dubose; Tye Bee; Biju Calvin; Brennan Simon; Adilene Nava; Justine Sandoval; Judy Tena; Sarah Corrales; Valerio Coppola; Monica Lopez; Deborah Miles; Karl Hoang; Juan Hayward; Sarai Montgomery; Azeb Ghotra; Giuliano Bustillo; Rita Santacruz; Chicho Pierce; Sandra Chandler; AILYN MONZON; Kerwin Rachel; Shira Boss; Pankaj Rao Instructions Additional Instructions / Restrictions: ADDITIONAL INSTRUCTIONS: SYNCOPE WORK-UP INCLUDED: --CT brain with no acute findings. --Chest x-ray normal. --Chest CTA unremarkable. --CT facial bones with a nasal bone fracture age-indeterminate likely old. --CTA head and neck unremarkable. --EKG with sinus rhythm with no acute evidence of ischemia. --Serial cardiac enzymes normal. --Echocardiogram normal (LVEF 65% with mild MVI, mild TVI) SEIZURE EVALUATION: --EEG (electroencephalogram) normal with no concerning findings for seizure. --Neurology was consulted and recommended to be cautious continued antiepileptic medications Keppra 500 mg twice daily with outpatient Neurology follow-up and likely at that time arranged 24 hour EEG testing to be cautious versus EMU admission at [facility] for more immediately evaluation. The [facility] Neurologist did offer transfer for this evaluation during your admission and this was found to eventually be agreeable thus [facility] transfer was arranged. --If Neurology finds Neurology follow-up necessary after your inpatient evaluation at [facility], you could consider follow-up locally in [place] with Dr. Del Rio at the [facility]. INFECTIOUS DISEASE WORK-UP: Syphilis and hepatitis nonreactive. Infectious disease consulted upon admission with pending CD4, VL, acute hepatitis panel and lyme screen with reflex per their service at discharge which will be reviewed with their service at follow-up. HOMELESSNESS ASSISTANCE: Case management and social work have discussed your homelessness status and given you information on places to stay and how to obtain more resources. You can always call back to if you have any questions for case management or social work during daytime hours 9a-5p. Discharge Orders/Prescriptions Prescriptions: No Action omeprazole 20 mg Tablet,Delayed Release (Dr/Ec) 20 mg PO DAILY Biktarvy 50-200-25 mg Tablet 1 tab PO DAILY cholecalciferol (vitamin D3) [Vitamin D3] 25 mcg (1,000 unit) Capsule 25 mcg PO BID albuterol sulfate 90 mcg/actuation HFA aerosol inhaler 1 inh INHALATION DAILY PRN (Reason: shortness of breath or wheezing) Referrals / Follow Up: Giuliano Bustillo MD [Med Staff - Active Staff] - (Please follow-up with Infectious Disease as previously arranged. Dr. Bustillo believes your follow-up visit is in 3-4 weeks but contact office to verify.) Care Physician,No Primary [Primary Care Provider] - (Please establish with primary care and take first open visit. [facility] Disposition Disposition (needs filled in before D/C Order can be placed): Acute Care Hospital Charges/Coding Visit Charges Inpatient E&M: 58151 Disch Hosp >30min
[2023-08-28] MEDS: Nitroglycerin (INPATIENT USE) 0.4 MG TAB.SUBL 0.400000000000000022 MG SL ×2 (18:38→18:53)
--- NOTE | 2023-08-28 18:59 | NURSING ---
first dose orf nitroglycerin SL given without positive effect for patient. second dose given and patient verbalizes some relief. See Mar for med times.
[2023-08-28] MEDS: Morphine 2 MG/ML Syringe IV (19:26)
--- NOTE | 2023-08-28 21:15 | NURSING ---
This RN walked into Pt room for rounds, and pt was not in the room or bathroom. All personal items were missing. Tele box was left in the room, along with hospital items. necktie centralizing machine operator and this RN walked around the floor to ensure pt wasnt walking around. senior php software developer and Nat Instructor made aware of pt leaving.
--- NOTE | 2023-08-28 21:45 | NURSING ---
This RN spoke with [place] [employer] and alerted them of pt elopement with IV site still intact. [place] [employer] to attempt pt location. Rodger HINOJOSA
[2023-08-29 13:07] LABS: Absolute CD4 Helper 770 /uL (359-1519); Basophils (Absolute) 0.1 x10E3/uL (0.0-0.2); CD4/CD8 Ratio 0.96 (0.92-3.72); Eosinophils 4 % (Not Estab.); Eosinophils (Absolute) 0.3 x10E3/uL (0.0-0.4); Hematocrit 42.1 % (37.5-51.0); Hemoglobin 14.2 g/dL (13.0-17.7); Immature Granulocytes 0 % (Not Estab.); Immature Granulocytes Absolute 0 x10E3/uL (0.0-0.1); Lymphs 40 % (Not Estab.); Lymphs (Absolute) 2.2 x10E3/uL (0.7-3.1); MCH 32.1 pg (26.6-33.0); MCHC 33.7 g/dL (31.5-35.7); MCV 95 fL (79-97); Monocytes 16 % (Not Estab.); Monocytes (Absolute) 0.9 x10E3/uL (0.1-0.9); Neutrophils 39 % (Not Estab.); Neutrophils (Absolute) 2.2 x10E3/uL (1.4-7.0); Percent % CD8 Pos. Lymph. 36.5 % (12.0-35.5); Platelets 276 x10E3/uL (150-450); RBC Count 4.43 x10E6/uL (4.14-5.80); RDW 13.1 % (11.6-15.4); WBC Count 5.7 x10E3/uL (3.4-10.8)
[2023-08-30 03:07] LABS: HIV-1 RNA by PCR, Quant. < 20 copies/mL (.)
[2023-08-30 09:09] LABS: HEPATITIS B SURFACE AG Negative (Negative); Hep C Antibodies Non Reactive (Non Reactive); Hepatitis A IgM Antibody Negative (Negative); Hepatitis B Core AB IgM Negative (Negative)
[2023-08-30 10:09] LABS: Lyme Scn Total Ab w/Rflx Negative (Negative)
== END 2023-08-28 21:00 | disposition left against medical advice (07) ==
LOC: ED 16:51 → PCU 22:02
PROVIDERS: Admitting Provider Internal Medicine; Emergency Provider Student in an Organized Health Care Education/Training Program; Visit Provider Family Medicine
DX: R56.9 Unspecified convulsions (principal); Z21 Asymptomatic human immunodeficiency virus [HIV] infection status; F15.10 Other stimulant abuse, uncomplicated; F14.10 Cocaine abuse, uncomplicated; I49.8 Other specified cardiac arrhythmias; F17.210 Nicotine dependence, cigarettes, uncomplicated; Z59.02 Unsheltered homelessness; R55 Syncope and collapse; I10 Essential (primary) hypertension; Z79.899 Other long term (current) drug therapy; K21.9 Gastro-esophageal reflux disease without esophagitis; Q61.3 Polycystic kidney, unspecified; Z85.028 Personal history of other malignant neoplasm of stomach
CPT/HCPCS: 36415; 70450; 70486; 70496; 70498; 70553; 71045; 71275; 80053; 80074; 80307; 80320; 83735; 84100; 84443; 84484; 85025; 86360; 86618; 86706; 86780; 86803; 87340; 87536; 93005; 93306; 94668; 95819; 96361; 96374; 99221; 99284; A9575; J7030; Q9967; A4216; G0378; G0480

== ENCOUNTER 2023-11-26 15:02 | Emergency (ER) | payer MEDICAID, SELFPAY ==
[2023-11-26 15:03] VITALS: BP 136/87; PULSE 79; RESP 17; TEMP 35.9; O2SAT 100
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
[2023-11-26 16:02] VITALS: PULSE 76; RESP 14; O2SAT 100
[2023-11-26 16:48] LABS: Absolute Lymphocyte Count 2.94 X10^3/uL (0.83-4.51); Absolute Neutrophil Count 3.6 X10^3/uL (2.0-7.7); Basophil# 0.04 X10^3/uL; Basophil% 0.5 % (0-1); Eosinophil# 0.26 X10^3/uL; Eosinophils% 3.3 % (0-5); Hematocrit 44.1 % (40-54); Hemoglobin 14.7 g/dL (13.0-16.5); Lymphocyte # 2.94 X10^3/ul (0.83-4.51); Lymphocyte % 37.8 % (19-41); Mean Corp Hgb Conc 33.3 g/dL (32-36); Mean Corpuscular Hgb 31.7 pg (27.0-32.0); Mean Platelet Vol. 8.4 fl (6.2-12.0); Monocyte# 0.91 X10^3/uL; Monocyte% 11.7 % (0-10); NRBC Flagged by Analyzer 0 % (0-5); Neutrophil % 46.4 % (47-70); Platelet Count 316 K/mm3 (150-450); RBC Distribution Width SD 48.4 fl (35.1-43.9); Red Blood Count 4.64 M/mm3 (4.6-6.2); White Blood Count 7.8 K/mm3 (4.4-11.0)
[2023-11-26 17:03] LABS: Amphetamine Urine VISTA POSITIVE (<1000 ng/mL); Barbiturate Urine VISTA NEGATIVE (< 200 ng/mL); Benzodiazepine Urine VISTA NEGATIVE (< 200 ng/mL); Cocaine Urine VISTA NEGATIVE (< 300 ng/mL); Ecstacy Urine VISTA POSITIVE (< 500 ng/mL); Methadone Urine VISTA NEGATIVE (< 300 ng/mL); PCP Urine VISTA NEGATIVE (< 25 ng/mL); THC Urine VISTA NEGATIVE (< 50 ng/mL); Vista UDS pH Range 5
[2023-11-26 17:06] LABS: Alcohol, Blood (Medical)-Serum < 3.0 mg/dL
[2023-11-26 17:08] LABS: Anion Gap 4 (5-15); BUN 9 mg/dL (7-18); BUN/Creat Ratio 8.4 RATIO (10-20); Calcium,Total 9.7 mg/dL (8.5-10.1); Chloride 108 mmol/L (98-107); Creatinine, Serum 1.07 mg/dL (0.70-1.30); EST Glomerular Filtration Rate 84 mL/min (>60); Est Glom Filt Rate - Afr Amer 101 mL/min (>60); Glucose 94 mg/dL (74-106); Potassium 4.1 mmol/L (3.5-5.1); Sodium Level 140 mmol/L (136-145)
== END 2023-11-26 22:24 | disposition home or self-care (01) ==
PROVIDERS: Emergency Provider Emergency Medicine; Visit Provider Emergency Medicine
DX: F22 Delusional disorders (principal); Z59.00 Homelessness unspecified; F17.210 Nicotine dependence, cigarettes, uncomplicated; Z85.038 Personal history of other malignant neoplasm of large intestine; I10 Essential (primary) hypertension
CPT/HCPCS: 80048; 80307; 80320; 85025; 99283; G0480

== ENCOUNTER 2023-12-06 20:23 | Emergency (ER) | payer MEDICAID, SELFPAY ==
[2023-12-06 20:24] VITALS: BP 137/92; PULSE 88; RESP 22; TEMP 36.9; O2SAT 95; BMI 21.5
--- NOTE | 2023-12-06 20:31 | EKG12_ITS ---
Test Reason : CP Blood Pressure : / mmHG Vent. Rate : 093 BPM Atrial Rate : 093 BPM P-R Int : 120 ms QRS Dur : 086 ms QT Int : 344 ms P-R-T Axes : 080 070 065 degrees QTc Int : 427 ms Normal sinus rhythm Normal ECG Confirmed by Jose Juan Herman ([id number]), editor trade journal MAURY TROY ([id number]) on 12/08/2023 9:01:08 AM Referred By: Confirmed By:Jose Juan Herman
[2023-12-06 20:49] LABS: Absolute Lymphocyte Count 0.98 X10^3/uL (0.83-4.51); Absolute Neutrophil Count 7.4 X10^3/uL (2.0-7.7); Basophil# 0.05 X10^3/uL; Basophil% 0.5 % (0-1); Eosinophil# 0.15 X10^3/uL; Eosinophils% 1.6 % (0-5); Hematocrit 44.8 % (40-54); Hemoglobin 15.3 g/dL (13.0-16.5); Lymphocyte # 0.98 X10^3/ul (0.83-4.51); Lymphocyte % 10.6 % (19-41); Mean Corp Hgb Conc 34.2 g/dL (32-36); Mean Corpuscular Hgb 32.1 pg (27.0-32.0); Mean Corpuscular Volume 93.9 fL (80-94); Mean Platelet Vol. 8.3 fl (6.2-12.0); Monocyte# 0.65 X10^3/uL; NRBC Flagged by Analyzer 0 % (0-5); Neutrophil # 7.41 X10^3/uL (2.7-7.7); Neutrophil % 80.1 % (47-70); Platelet Count 217 K/mm3 (150-450); RBC Distribution Width CV 13.5 % (11.6-14.6); RBC Distribution Width SD 46.5 fl (35.1-43.9); Red Blood Count 4.77 M/mm3 (4.6-6.2); White Blood Count 9.3 K/mm3 (4.4-11.0)
--- NOTE | 2023-12-06 21:04 | RAD_ITS ---
STUDY: X-RAY CHEST REASON FOR EXAM: Male, 33 years old. chest pain TECHNIQUE: Single AP portable view of the chest. COMPARISON: None. FINDINGS: The lungs are clear and expanded. There is no demonstrated pleural abnormality. Normal size heart. Normal mediastinum and june. Normal visualized pulmonary arteries. Normal visualized aortic arch and descending thoracic aorta. Normal visualized thoracic spine. Normal visualized ribs, clavicles, and shoulders. There is no demonstrated abnormality of the visualized soft tissue structures of the upper abdomen. RAD/Chest 1 View (Portable) IMPRESSION: Normal x-ray examination of the chest. Electronically Signed: Chidi Renteria MD at 22:04 EDT ,
[2023-12-06 21:17] LABS: Anion Gap 7 (5-15); BUN 17 mg/dL (7-18); BUN/Creat Ratio 18.8 RATIO (10-20); Calcium,Total 8.9 mg/dL (8.5-10.1); Chloride 109 mmol/L (98-107); Creatinine, Serum 0.91 mg/dL (0.70-1.30); EST Glomerular Filtration Rate 101 mL/min (>60); Est Glom Filt Rate - Afr Amer 122 mL/min (>60); Estimated Creatinine Clearance 102.88 ml/min; Glucose 93 mg/dL (74-106); Potassium 3.4 mmol/L (3.5-5.1); Sodium Level 141 mmol/L (136-145); Troponin-I HS < 3 pg/mL (3.0-78.0)
[2023-12-06] MEDS: 0.9% Normal Saline (1000mL) 1,000 ML 999 ML IV (21:17)
[2023-12-06] MEDS: Ondansetron 4 MG/2 ML Vial IV (21:17)
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
[2023-12-06 21:23] VITALS: BP 134/84; PULSE 95; RESP 14; O2SAT 99
[2023-12-06 22:00] VITALS: BP 132/88; PULSE 95; RESP 15; O2SAT 99
[2023-12-06 22:33] LABS: D-Dimer Quantitative (DVT/PE) 0.46 FEU/ug/m (0.27-0.49)
[2023-12-06 22:56] VITALS: BP 132/87; PULSE 109; RESP 16; TEMP 36.9; O2SAT 97
[2023-12-06 23:00] VITALS: BP 133/81; PULSE 81; RESP 16; TEMP 36.7; O2SAT 98
== END 2023-12-06 23:14 | disposition home or self-care (01) ==
PROVIDERS: Emergency Provider Student in an Organized Health Care Education/Training Program; Visit Provider Student in an Organized Health Care Education/Training Program
DX: R07.9 Chest pain, unspecified (principal); Z21 Asymptomatic human immunodeficiency virus [HIV] infection status; R11.0 Nausea; F17.210 Nicotine dependence, cigarettes, uncomplicated; Z59.00 Homelessness unspecified; Z85.038 Personal history of other malignant neoplasm of large intestine; I10 Essential (primary) hypertension; K21.9 Gastro-esophageal reflux disease without esophagitis; Z79.899 Other long term (current) drug therapy
CPT/HCPCS: 71045; 80048; 84484; 85025; 85379; 87631; 93005; 96361; 96374; 99284; J7030; J2405

== ENCOUNTER → 2024-02-25 | Outpatient (CLI) | payer MEDICAID, SELFPAY ==
[2024-02-25 15:58] LABS: Absolute Lymphocyte Count 2.54 X10^3/uL (0.83-4.51); Basophil# 0.04 X10^3/uL; Basophil% 0.5 % (0-1); Eosinophil# 0.29 X10^3/uL; Eosinophils% 3.8 % (0-5); Hematocrit 43.1 % (40-54); Hemoglobin 14.4 g/dL (13.0-16.5); Lymphocyte # 2.54 X10^3/ul (0.83-4.51); Lymphocyte % 33.2 % (19-41); Mean Corp Hgb Conc 33.4 g/dL (32-36); Mean Corpuscular Hgb 31.9 pg (27.0-32.0); Mean Corpuscular Volume 95.6 fL (80-94); Mean Platelet Vol. 8.8 fl (6.2-12.0); Monocyte# 0.75 X10^3/uL; Monocyte% 9.8 % (0-10); NRBC Flagged by Analyzer 0 % (0-5); Neutrophil # 3.98 X10^3/uL (2.7-7.7); Neutrophil % 52.2 % (47-70); Platelet Count 299 K/mm3 (150-450); RBC Distribution Width CV 13.8 % (11.6-14.6); RBC Distribution Width SD 48.8 fl (35.1-43.9); Red Blood Count 4.51 M/mm3 (4.6-6.2); White Blood Count 7.6 K/mm3 (4.4-11.0)
[2024-02-25 16:28] LABS: AST(SGOT) 22 U/L (15-37); Alanine Aminotransfer ALT/SGPT 27 U/L (16-61); Albumin, Serum 3.7 g/dL (3.2-5.0); Alkaline Phosphatase 94 U/L (45-117); Anion Gap 5 (5-15); BUN 10 mg/dL (7-18); BUN/Creat Ratio 12.5 RATIO (10-20); Calcium,Total 8.9 mg/dL (8.5-10.1); Chloride 106 mmol/L (98-107); EST Glomerular Filtration Rate 117 mL/min (>60); Est Glom Filt Rate - Afr Amer 142 mL/min (>60); Globulin 3.4 g/dL (2.2-4.2); Glucose 84 mg/dL (74-106); Potassium 3.9 mmol/L (3.5-5.1); Protein, Total 7.1 g/dL (6.4-8.2); Sodium Level 140 mmol/L (136-145)
[2024-02-25 16:46] LABS: Syphilis Antibodies Non-reactive
[2024-02-28 10:42] LABS: Absolute CD4 Helper 818 /uL (359-1519); Basophils (Absolute) 0.1 x10E3/uL (0.0-0.2); Eosinophils 4 % (Not Estab.); Eosinophils (Absolute) 0.3 x10E3/uL (0.0-0.4); HIV-1 RNA by PCR, Quant. < 20 copies/mL (.); Hematocrit 45.1 % (37.5-51.0); Hemoglobin 14.8 g/dL (13.0-17.7); Immature Granulocytes 0 % (Not Estab.); Immature Granulocytes Absolute 0 x10E3/uL (0.0-0.1); Lymphs 31 % (Not Estab.); Lymphs (Absolute) 2.5 x10E3/uL (0.7-3.1); MCH 31.8 pg (26.6-33.0); MCHC 32.8 g/dL (31.5-35.7); MCV 97 fL (79-97); Monocytes 10 % (Not Estab.); Monocytes (Absolute) 0.8 x10E3/uL (0.1-0.9); Neutrophils 54 % (Not Estab.); Neutrophils (Absolute) 4.4 x10E3/uL (1.4-7.0); Percent % CD4 Pos. Lymph. 32.7 % (30.8-58.5); Platelets 338 x10E3/uL (150-450); RBC Count 4.65 x10E6/uL (4.14-5.80); RDW 13.6 % (11.6-15.4)
== END | disposition home or self-care (01) ==
LOC: LAB 14:49
PROVIDERS: PCP Internal Medicine Infectious Disease; Referring Provider Internal Medicine Infectious Disease; Visit Provider Internal Medicine Infectious Disease
DX: Z21 Asymptomatic human immunodeficiency virus [HIV] infection status (principal)
CPT/HCPCS: 36415; 80048; 80076; 85025; 86361; 86780; 87491; 87536; 87591

== ENCOUNTER 2024-03-15 15:36 | Emergency (ER) | payer MEDICAID, SELFPAY ==
[2024-03-15 15:37] VITALS: BP 153/119; PULSE 93; RESP 18; TEMP 36.6; O2SAT 99; BMI 23.8
[2024-03-15 17:36] VITALS: BP 123/78; PULSE 71; RESP 16; O2SAT 99
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
[2024-03-15 18:42] VITALS: BP 123/78; PULSE 70; RESP 16; TEMP 36.4; O2SAT 99
== END 2024-03-15 18:52 | disposition home or self-care (01) ==
PROVIDERS: Emergency Provider Emergency Medicine; PCP Internal Medicine Infectious Disease; Visit Provider Emergency Medicine
DX: U07.1 COVID-19 (principal); Z21 Asymptomatic human immunodeficiency virus [HIV] infection status; I10 Essential (primary) hypertension; Z59.00 Homelessness unspecified; F17.210 Nicotine dependence, cigarettes, uncomplicated; K21.9 Gastro-esophageal reflux disease without esophagitis; Z79.899 Other long term (current) drug therapy; F32.A Depression, unspecified
CPT/HCPCS: 87631; 99282

== ENCOUNTER 2024-03-23 13:10 | Emergency (ER) | payer MEDICAID, SELFPAY ==
[2024-03-23] VITALS (7 sets, daily range): BP systolic 119–145; BP diastolic 70–102; PULSE 79–97; RESP 16–22; TEMP 36.4–37.3; O2SAT 96–100; BMI 23.4
--- NOTE | 2024-03-23 13:42 | RAD_ITS ---
HISTORY: COUGH. TECHNIQUE: XR Chest 1 View. COMPARISON: 12/06/2023. FINDINGS: CARDIOMEDIASTINAL BORDERS: Cardiac silhouette within normal limits in size. Mediastinal contour unremarkable. LUNGS: Radiographically clear. PLEURA: No pleural effusion or pneumothorax seen. OSSEOUS STRUCTURES: Unremarkable. RAD/Chest 1 View (Portable) IMPRESSION: No acute cardiopulmonary process identified. Electronically Signed: Lilian Aguiar MD at 15:02 EDT ,
[2024-03-23 14:04] LABS: Absolute Lymphocyte Count 2.69 X10^3/uL (0.83-4.51); Absolute Neutrophil Count 4.5 X10^3/uL (2.0-7.7); Basophil# 0.05 X10^3/uL; Basophil% 0.6 % (0-1); Eosinophil# 0.21 X10^3/uL; Eosinophils% 2.5 % (0-5); Hematocrit 44.6 % (40-54); Hemoglobin 14.9 g/dL (13.0-16.5); Lymphocyte # 2.69 X10^3/ul (0.83-4.51); Lymphocyte % 31.7 % (19-41); Mean Corp Hgb Conc 33.4 g/dL (32-36); Mean Corpuscular Hgb 31.7 pg (27.0-32.0); Mean Corpuscular Volume 94.9 fL (80-94); Mean Platelet Vol. 8.5 fl (6.2-12.0); Monocyte# 0.97 X10^3/uL; Monocyte% 11.4 % (0-10); NRBC Flagged by Analyzer 0 % (0-5); Neutrophil # 4.52 X10^3/uL (2.7-7.7); Neutrophil % 53.3 % (47-70); Platelet Count 312 K/mm3 (150-450); White Blood Count 8.5 K/mm3 (4.4-11.0)
[2024-03-23 14:22] LABS: Anion Gap 5 (5-15); BUN 6 mg/dL (7-18); BUN/Creat Ratio 6.8 RATIO (10-20); Calcium,Total 9.7 mg/dL (8.5-10.1); Chloride 104 mmol/L (98-107); Creatinine, Serum 0.88 mg/dL (0.70-1.30); EST Glomerular Filtration Rate 104 mL/min (>60); Est Glom Filt Rate - Afr Amer 126 mL/min (>60); Estimated Creatinine Clearance 113.35 ml/min; Glucose 93 mg/dL (74-106); Potassium 3.6 mmol/L (3.5-5.1); Sodium Level 139 mmol/L (136-145); Troponin-I HS 3 pg/mL (3.0-78.0)
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
--- NOTE | 2024-03-23 15:12 | EKG12_ITS ---
Test Reason : COUGH Blood Pressure : / mmHG Vent. Rate : 071 BPM Atrial Rate : 071 BPM P-R Int : 124 ms QRS Dur : 080 ms QT Int : 350 ms P-R-T Axes : 072 061 067 degrees QTc Int : 380 ms Normal sinus rhythm Normal ECG Confirmed by MARIAH TATUM, JUANCARLOS ([id number]), medical transcription editor RUDY RODRIGUEZ ([id number]) on 03/25/2024 1:44:45 PM Referred By: Confirmed By:JUANCARLOS LEMUS MD
[2024-03-23 15:50] LABS: D-Dimer Quantitative (DVT/PE) 0.33 FEU/ug/m (0.27-0.49)
[2024-03-23 16:11] LABS: BNP,B-Type NATRIURETIC PEPTIDE 33.3 pg/mL (0-100)
== END 2024-03-23 18:30 | disposition home or self-care (01) ==
PROVIDERS: Emergency Provider Emergency Medicine; PCP Internal Medicine Infectious Disease; Visit Provider Emergency Medicine
DX: U07.1 COVID-19 (principal); F17.210 Nicotine dependence, cigarettes, uncomplicated; I10 Essential (primary) hypertension; Z59.00 Homelessness unspecified; R05.9 Cough, unspecified; Z85.038 Personal history of other malignant neoplasm of large intestine; K21.9 Gastro-esophageal reflux disease without esophagitis; Z79.899 Other long term (current) drug therapy; F32.A Depression, unspecified; R06.02 Shortness of breath
CPT/HCPCS: 71045; 80048; 83880; 84484; 85025; 85379; 93005; 94760; 99282; A4216

== ENCOUNTER → 2024-03-31 | Outpatient (CLI) | payer MEDICAID, SELFPAY ==
[2024-03-31 15:25] LABS: Anion Gap 7 (5-15); BUN 9 mg/dL (7-18); BUN/Creat Ratio 9.8 RATIO (10-20); Calcium,Total 9.5 mg/dL (8.5-10.1); Chloride 106 mmol/L (98-107); Cholesterol 202 mg/dL (200); Creatinine, Serum 0.92 mg/dL (0.70-1.30); EST Glomerular Filtration Rate 99 mL/min (>60); Est Glom Filt Rate - Afr Amer 120 mL/min (>60); Glucose 102 mg/dL (74-106); High Density Lipoprotein 45 mg/dL; Potassium 4.2 mmol/L (3.5-5.1); Sodium Level 140 mmol/L (136-145); Triglycerides 172 mg/dL; Very Low Density Lipoprotein 34 mg/dL (5-40)
== END | disposition home or self-care (01) ==
LOC: LAB 14:21
PROVIDERS: PCP Internal Medicine Infectious Disease; Referring Provider Internal Medicine Cardiovascular Disease; Visit Provider Internal Medicine Cardiovascular Disease
DX: R06.02 Shortness of breath (principal); R07.9 Chest pain, unspecified; Q61.3 Polycystic kidney, unspecified
CPT/HCPCS: 36415; 80048; 80061

== ENCOUNTER 2024-05-17 21:27 | Emergency (ER) | payer MEDICAID, SELFPAY ==
[2024-05-17 21:28] VITALS: BP 139/95; PULSE 96; RESP 16; TEMP 36.8; O2SAT 95; BMI 24.6
--- NOTE | 2024-05-17 22:58 | CT_ITS ---
STUDY: CT ABDOMEN AND PELVIS WITH CONTRAST REASON FOR EXAM: Male, 33 years old. epigastric abd pain/ruq RADIATION DOSAGE (If Supplied By Facility): CTDIvol = ( 11.10 ) mGy, DLP = ( 631.56 ) mGycm TECHNIQUE: Transaxial images were obtained from the dome of the diaphragm to the symphysis pubis without oral contrast. IV 100mL Isovue-370 was administered. Sagittal and coronal images were reconstructed. Individualized dose optimization techniques were used for this CT. The protocol utilizes one or more of the following dose reduction techniques: automated exposure control, adjustment of mA and/or kV according to patient size,and/or use of iterative reconstruction technique. COMPARISON: January 17, 2022 CT abdomen and pelvis. FINDINGS: The visualized lung bases are unremarkable. The visualized portions of the heart are within normal limits. Normal liver. Normal gallbladder and extrahepatic biliary system. Normal spleen. Normal pancreas. Normal bilateral adrenal glands. Multiple bilateral renal cysts unchanged. Central calcification again noted and the largest one on the right measuring 5 cm. Normal visualized stomach. Normal small intestine. : Normal colon. The appendix is visualized and appears normal. Normal abdominal aorta. Normal inferior vena cava. Normal retroperitoneum. Normal urinary bladder. Normal abdominal wall. Normal osseous structures. CT/Abdomen/Pelvis W IV Cont ONLY IMPRESSION: No acute disease Electronically Signed: Pete Vega MD at 1:08 EDT ,
--- NOTE | 2024-05-17 22:59 | RAD_ITS ---
STUDY: X-RAY CHEST REASON FOR EXAM: Male, 33 years old. cough TECHNIQUE: Frontal and lateral views of the chest. COMPARISON: Chest x-ray March 23, 2024 FINDINGS: The lungs are clear and expanded. There is no demonstrated pleural abnormality. Normal size heart. Normal mediastinum and june. Normal visualized pulmonary arteries. Normal visualized aortic arch and descending thoracic aorta. Normal visualized thoracic spine. Normal visualized ribs, clavicles, and shoulders. There is no demonstrated abnormality of the visualized soft tissue structures of the upper abdomen. RAD/Chest PA and Lateral IMPRESSION: Normal x-ray examination of the chest. Electronically Signed: Pete Vega MD at 0:25 EDT ,
--- OUTSIDE RECORDS SUMMARY | 2024-05-17 23:05 | XMS RPT_ITS | CCD ---
Author Organization [facility] Care Team Providers Care Crimper Assembler Name Role Phone Ronni Landaverde Kuldeep Primary Care Provider [phone] Pcp, No Primary Care Provider Unavailabl e Unavailable Primary Care Provider Unavailabl e TAPIO, PATRICIA Admitting Unavailable TAPIO PATRICIA Attending Unavailable TAPIO PATRICIA Consulting Unavailable Pcp BANKRUPTCY LAW SPECIALIST, No Primary Care Provider UnavailDO Tommy Duenas Emergency Provider NO FAMILY, PHYSICIAN Primary Care Provider Unava ilTommy Monge Admitting Unavailable Tommy Swanson Attending Unavailable NO FAMILY, PHYSICIAN Primary Care Unavailable JOHN CHAMBERS Attending Unavailable JOHN CHAMBERS Primary Care Unavailable JOHN CHAMBERS Admitting Unavailable Unavailable Primary Care Provider UnavailHumberto Soriano MD Unavailable Worthkatie BANKRUPTCY LAW SPECIALIST.SUPERINTENDENT WAREHOUSE, Dawit Unavailable Humberto Bustillo MD Primary Care Provider Pcp BANKRUPTCY LAW SPECIALIST, No Primary Care Provider Unavaildamián KUMAR PHUC A Referring Unavailable STACY ALVAREZ Attending Unavailable PHUC KUMAR A Referring Unavailable DAWIT ROJAS Referring Unavailable PHUC KUMAR Attending Unavailable DAWIT ROJAS Attending Unavailable HUMBERTO BUSTILLO Primary Care Unavailable PHUC KUMAR Referring Unavailable MARIZA HAYES Referring Unavailable HUMBERTO BUSTILLO Primary Care Unavailable MARIZA AHYES Attending Unavailable PHYSICIAN, NONE Primary Care Physician Unavailab le PHYSICIAN, NONE Primary Care Unavailable REFERRING, PHY WO ID Attending Unavailable Allergies Allergy Classification Reported Allergen(s) Allergy Type Date of Onset Reaction(s) Facility Unclassified (20 sources) Antihistimine; Translations: [ANTIHISTIMINE] Drug Allergy 06-19-20 15 Mental Status Change [facility] (20 sources) Metoclopramide; Translations: [METOCLOPRAMIDE] Drug Allergy 01-29-20 19 Mental Status Change, Other: See Comments [facility] (20 sources) Prochlorperazine; Translations: [PROCHLORPERAZINE] Drug Allergy 01-29-20 Mental Status Change, Other: See Comments [facility] (20 sources) Shellfish; Translations: [SHELLFISH DERIVED] Drug Allergy 03-21-20 Diarrhea [facility] (20 sources) meloxicam; Translations: [MELOXICAM] Drug Allergy 08-31-19 Anaphylaxis [facility] Other [facility] (2 sources) Antihistamines - Alkylamine; Translations: [Antihistamines - Alkylamine] Propensity to adverse reactions 11-13-19 Unknown Reaction [facility] (1 source) Metoclopramide Drug Allergy 11-13-19 [facility] Repository (1 source) Prochlorperazine Drug Allergy 11-13-19 [facility] Repository (1 source) diphenhydrAMINE Drug Allergy [facility] Repository (1 source) meloxicam Drug Allergy [facility] Repository Medications Current Medications Medication [...] every 4 hours as needed for pain. [id number] 200 actuat albuterol 0.09 mg/actuat metered dose [...] above: Take by mouth. polyethylene glycol 3350 023656 mg / potassium chloride 2970 mg / sodium bicarbonate 6740 mg / sodium chloride 5860 mg / sodium sulfate 67104 mg powder for oral solution (1 source) [...] Comment on above: Take [address] [facility] three times daily. Problems Active Problems Problem [...] 05/14/2024 7:33:56 AM Ordering Provider: NIR SIEGEL [facility] BELL Childress 04-16-2024 MOR Telephone (SARMAD) -- FAUSTINO UNGER ([id number]) 1990 M Date Time Provider Department 04/16/24 [...] 9:21 AM Signed Left VM, will send DN2K message. Advised pt to call office or respond in Catheter [employer]ctions if he had any questions. Will need [...] [M85.88] Order(s):CONSULT TO ENDOCRINOLOGY [9007] Order #: [id number]: 1 FUTURE Prescriptions as of 04/20/2024 - [...] Status:Closed by ELAINE BARRETO on 04/20/24 Normal [facility] BD DXA - AXIAL SKELETONon BD DXA - AXIAL SKELETON * * *Final Report* * * DATE OF EXAM: Apr 01 2024 10:25AM [facility] 0804 - BD DXA - AXIAL SKELETON / PROCEDURE REASON: multiple diagnoses * * * * Physician Interpretation * * * * EXAMINATION: DXA BONE DENSITOMETRY BD DXA - AXIAL SKELETON, BD DXA TRABECLR BONE SCORE (TBS) PATIENT DEMOGRAPHICS: Age: 33 years, Gender: Male SCANNER INFORMATION: DXA Model: [place] - [employer] C 19093 Date Scanned: 04/01/2024 10:25 AM CLINICAL HISTORY: [...] had a previous bone density in the [facility] or the previous bone density was performed on a different DXA machine (new, updated model or different location) within the [facility]. VERTEBRAL FRACTURE ASSESSMENT Not performed. TRABECULAR BONE [...] FOR MORE INFORMATION ABOUT DIAGNOSIS AND TREATMENT: [facility] for Osteoporosis and Metabolic Bone Disease:? www.ccf.org/arthritis/oste o National Osteoporosis Foundation:? www.nof.org International Society of Clinical Densitometry www.iscd.org Hoop Machine Operator: MIRIAN Transcribe Date/Time: Apr 05 2024 11:13A Dictated by : TIMOTHY BECKHAM MD This examination was interpreted and the report reviewed and electronically signed by: TIMOTHY BECKHAM MD on Apr 05 2024 11:15AM EST [id number] Normal [facility] BD DXA TRABECLR BONE SCORE ( TBS)on [...] years, Gender: Male SCANNER INFORMATION: DXA Model: [place] - [employer] C 84080 Date Scanned: 04/01/2024 10:25 AM CLINICAL HISTORY: [...] had a previous bone density in the [facility] or the previous bone density was performed on a different DXA machine (new, updated model or different location) within the [facility]. VERTEBRAL FRACTURE ASSESSMENT Not performed. TRABECULAR BONE [...] FOR MORE INFORMATION ABOUT DIAGNOSIS AND TREATMENT: [facility] for Osteoporosis and Metabolic Bone Disease:? www.ccf.org/arthritis/oste o National Osteoporosis Foundation:? www.nof.org International Society of Clinical Densitometry www.iscd.org Hoop Machine Operator: PSCKenneth Transcribe Date/Time: Apr 05 2024 11:13A Dictated by : TIMOTHY BECKHAM MD This examination was interpreted and the report reviewed and electronically signed by: TIMOTHY BECKHAM MD on Apr 05 2024 11:15AM EST [id number] Normal [facility] CT ABD/PEL WO IVCONon 2023 CT ABD/PEL WO IVCON * * *Final Report* * * DATE OF EXAM: Mar 30 2024 3:11PM [facility] 0531 - CT ABD/PEL WO IVCON / [...] with CT kidney study with IV contrast. Hoop Machine Operator: PSCKenneth Transcribe Date/Time: Mar 30 2024 3:14P Dictated by : DIMITRI SYKES MD This examination was interpreted and the report reviewed and electronically signed by: DIMITRI SYKES MD on Mar 30 2024 3:21PM EST [id number] Normal [facility] CT Abdomen and Pelvis WO con traston 03-30-2024 IMPRESSION: Colonic diverticulosis. Cystic lesions in the bilateral kidneys with or without calcifications. Consider further evaluation with CT kidney study with IV contrast. Hoop Machine Operator: [facility] Transcribe Date/Time: Mar 30 2024 3:14P Dictated by : DIMITRI SYKES MD This examination was interpreted and the report reviewed and electronically signed by: DIMITRI SYKES MD on Mar 30 2024 3:21PM EST DIVISION OF RADIOLOGY * * *Final Report* * * DATE OF EXAM: Mar 30 2024 3:11PM [facility] 0531 - CT ABD/PEL WO IVCON / [...] clear of consolidations. DIVISION OF RADIOLOGY Provider, [facility] - 03/30/2024 * * *Final Report* * * DATE OF EXAM: Mar 30 2024 3:11PM [facility] 0531 - CT ABD/PEL WO IVCON / [...] with CT kidney study with IV contrast. Hoop Machine Operator: MIRIAN Transcribe Date/Time: Mar 30 2024 3:14P Dictated by : DIMITRI SYKES MD This examination was interpreted and the report reviewed and electronically signed by: DIMITRI SYKES MD on Mar 30 2024 3:21PM EST [facility] Radiology Study observation (narrative) [facility] CT Abdomen and Pelvis WO con trastOrdered By: Ccf Provider on 03-30-2024 [facility] CNOVon 03-23-2024 CNOV Office Visit (GENSWS ) -- FAUSTINO UNGER ([id number]) 1990 Date Time Provider Department 03/23/24 11:30 [...] N/A Last Colonoscopy: 06/26/2020 ASHISH Tapia Kimberley, BANKRUPTCY LAW SPECIALIST.SUPERINTENDENT WAREHOUSE 03/25/2024 8:11 AM Addendum HISTORY AND PHYSICAL Faustino Unger : 1990 [...] completing t (more content not included)... Normal [facility] Fior 03-23-2024 [facility] Tele[facility] (RetailerSaver.comS) -- CORNELFAUSTINO ([id number]) 1990 M Date Time Provider Department 03/23/24 [...] Status:Closed by PRADEEP HOPPER on 03/24/24 Normal [facility] Fior 03-18-2024 CNPN Telephone (HEMAWS) -- UCHEFAUSTINO ROLAND ([id number]) 1990 M Date Time Provider Department 03/18/24 [...] Status:Closed by JADYN SNOW on 03/19/24 Normal [facility] 1,25-dihydroxyvitamin D3 [Ma ss/Vol]on 03-15-2024 1,25 Dihydroxy Vitamin Total 40.0 pg/mL 19.9 - 79.3 pg/mL [facility] Interpretation and review of laboratory results Normal [facility] VIT D1,25 DIHYDROXY 40.0 pg/mL Normal 19.9-79.3 [facility] Comment on above: Order Comment: Speci men Type: BLOOD SPECIMENOrdering Facility: [facility] Address: [address] [place] [address] [place] [address] Performed By: #### 1 649-3, 1990-09 ####[facility] LABCLIA [id number] [place] [id number] [place] 25(OH)D3 SerPl-mCncon 2023 25-hydroxyvitamin D3 [Mass/Vol] 35.5 ng/mL Normal 31.0-80.0 [facility] Comment on above: Order Comment: Speci men Type: BLOOD SPECIMENOrdering Facility: [facility] Address: [address] [place] [address] Performed By: #### 1 649-3, 1990-09 ####[facility] LABCLIA [id number] [place] [id number] [place] 25-hydroxyvitamin D3 [Mass/V ol]on 03-15-2024 Interpretation and review of laboratory results Normal [facility] CNOVSPon 03-15-2024 CNOVSP Visit (SP) Office (H EMAWS) -- CORNELFAUSTINO ([id number]) 1990 M Date Time Provider Department 03/15/24 [...] on head with a vase. ED in [place]. Scalp bleed. No sutures. Had a CT [...] in right testicle. Had US. Went to [facility] ED. Sees Dr. Bustillo at [facility]. Started on Biktarvy. He recalls viral load [...] in the process of moving back to [place]. 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 Had blood patch. Not following with nephrology since moving back to [place] last 2-3 years. Was seeing motor equipment sergeant in [place]. Chronic pain right upper posterior iliac area [...] (5.0 tt (more content not included)... Normal [facility] Fior 03-15-2024 MOR Telephone (SARMAD) -- FAUSTINO UNGER ([id number]) 1990 M Date Time Provider Department 03/15/24 PHUC KUMAR During your visit today, we recorded the following information about you: Elaine Barreto 03/15/2024 2:49 PM Signed Check out comments: Labs and xray today. - COMPLETED Bone density when able. - SCHEDULED Referral to general surgery for surveillance colonoscopy. - SCHEDULED Referral to Dr. Skye Lopez at [facility] for polycystic kidney disease (please fax OV note and lab results). Follow up TBD based on results. Gill, Aminta 03/16/2024 8:54 AM Signed Referral, OV note and labs faxed to Dr. Skye Lopez at [facility]. Allergies As of Date: 03/15/2024 Noted Allergy [...] Status:Closed by AMINTA GILL on 03/16/24 Normal [facility] IMMUNOFIXATION SCREEN, SERUM on 03-15-2024 MPA RESULT No M protein is identified. Normal No M protein is identified. [facility] Comment on above: Order Comment: Speci men Type: BLOOD SPECIMENOrdering Facility: [facility] Address: [address] [place] [address] Performed By: #### I FESC ####[facility] [id number] [place] [address] [place] STAFF REVIEW (MPA) Reviewed by Ochoa Arias MD, Ph.D ([id number]) Normal [facility] Comment on above: Order Comment: Speci men Type: BLOOD SPECIMENOrdering Facility: [facility] Address: [address] [place] [address] Performed By: #### I FESC ####[facility] LABIA [id number] [place] [address] [place] IMMUNOGLOBULINS,IGG,IGA,IGMo n 03-15-2024 IgA [Mass/Vol] 263 mg/dL Normal 70-400 [facility] Comment on above: Order Comment: Speci men Type: BLOOD SPECIMENOrdering Facility: [facility] Address: [address] [place] [address] Performed By: #### S ERIMM ####[facility] LABCLIA [id number] [place] [address] [place] IgG [Mass/Vol] 800 mg/dL Normal 700-1600 [facility] Comment on above: Order Comment: Speci men Type: BLOOD SPECIMENOrdering Facility: [facility] Address: [address] [place] [address] Performed By: #### S ERIMM ####[facility] LABCLIA [id number] [place] [address] [place] IgM [Mass/Vol] 150 mg/dL Normal 40-230 [facility] Comment on above: Order Comment: Speci men Type: BLOOD SPECIMENOrdering Facility: [facility] Address: [address] [place] [address] Performed By: #### S ERIMM ####[facility] LABCLIA [id number] [place] [address] [place] KAPPA/CHOUDHARY,FREE,SERon 2023 Immunoglobulin light chains.kappa.free (S) [Mass/Vol] 17.0 mg/L Normal 3.3-19.4 [facility] Comment on above: Order Comment: Speci men Type: BLOOD SPECIMENOrdering Facility: [facility] Address: [address] [place] [address] Result Comment: Rare ly, increased serum free light chains levels may not be detected or accurately quantified due to prozone phenomenon or in high viscosity samples using this immunoturbidimetric assay. Correlation with other laboratory results and clinical findings is recommended. The [place] Free Light Chain was performed using the Binding Site Optilite immunoturbidimetric method. Result obtained with different assay methods or kits cannot be used interchangeably. Performed By: #### K LFRS ####[facility] LABCLIA [id number] [place] [address] [place] Immunoglobulin light chains.kappa/Immunoglo bulin light chains.lambda (S) [Mass ratio] 1.06 Normal 0.26-1.65 [facility] Comment on above: Order Comment: Speci men Type: BLOOD SPECIMENOrdering Facility: [facility] Address: [address] [place] [address] Performed By: #### K LFRS ####[facility] LABCLIA [id number] [place] [address] [place] Immunoglobulin light chains.lambda.free [Mass/Vol] 16.0 mg/L Normal 5.7-26.3 [facility] Comment on above: Order Comment: Speci men Type: BLOOD SPECIMENOrdering Facility: [facility] Address: [address] [place] [address] Result Comment: Rare ly, increased serum free [...] used interchangeably. Performed By: #### K LFRS ####[facility] LABCLIA [id number] [place] [address] [place] PROTEIN ELECTROPHORESIS SERU M (P)on 03-15-2024 Albumin [Mass/Vol] 4.57 g/dL Normal 3.43-5.41 [facility] Comment on above: Order Comment: Speci men Type: BLOOD SPECIMENOrdering Facility: [facility] Address: [address] [place] [address] Performed By: #### L [id number] ####[facility] LABCLIA [id number] [place] [address] [place] Alpha 1 globulin Elph [Mass/Vol] 0.31 g/dL Normal 0.18-0.43 [facility] Comment on above: Order Comment: Speci men Type: BLOOD SPECIMENOrdering Facility: [facility] Address: [address] [place] [address] Performed By: #### L [id number] ####[facility] LABIA [id number] [place] [address] [place] Alpha 2 globulin Elph [Mass/Vol] 0.69 g/dL Normal 0.42-0.98 [facility] Comment on above: Order Comment: Speci men Type: BLOOD SPECIMENOrdering Facility: [facility] Address: [address] [place] [address] Performed By: #### L [id number] ####[facility] LABIA [id number] [place] [address] [place] Beta globulin Elph [Mass/Vol] 0.88 g/dL Normal 0.61-1.17 [facility] Comment on above: Order Comment: Speci men Type: BLOOD SPECIMENOrdering Facility: [facility] Address: [address] [place] [address] Performed By: #### L [id number] ####[facility] [id number] [place] [address] [place] Gamma globulin Elph [Mass/Vol] 0.75 g/dL Normal 0.53-1.51 [facility] Comment on above: Order Comment: Speci men Type: BLOOD SPECIMENOrdering Facility: [facility] Address: [address] [place] [address] Performed By: #### L [id number] ####[facility] [id number] [place] [address] [place] M-PROTEIN LOCATION Normal [facility] Comment on above: Order Comment: Speci men Type: BLOOD SPECIMENOrdering Facility: [facility] Address: [address] [place] [address] Result Comment: Not Applicable. Performed By: #### L [id number] ####[facility] [id number] [place] [address] [place] Protein Fractions [Interp] No definitive M protein is identified on protein electrophoresis. Normal No definitive M protein is identified on protein electrophor esis. [facility] Comment on above: Order Comment: Speci men Type: BLOOD SPECIMENOrdering Facility: [facility] Address: [address] [place] [address] Performed By: #### L [id number] ####[facility] LABIA [id number] [place] [address] [place] Protein.monoclonal Elph [Mass/Vol] 0.00 g/dL Normal <=0.00 [facility] Comment on above: Order Comment: Speci men Type: BLOOD SPECIMENOrdering Facility: [facility] Address: [address] [place] [address] Performed By: #### L [id number] ####[facility] LABIA [id number] [place] [address] [place] SPE STAFF REVIEW Reviewed by Ochoa Arias MD, Ph.D ([id number]) Normal [facility] Comment on above: Order Comment: Speci men Type: BLOOD SPECIMENOrdering Facility: [facility] Address: [address] [place] [address] Performed By: #### L [id number] ####[facility] LABIA [id number] [place] [address] [place] PTH-Intact SerPl-mCncon 02-19 Parathyrin.intact [Mass/Vol] 25 pg/mL Normal 15-65 [facility] Comment on above: Order Comment: Speci men Type: BLOOD SPECIMENOrdering Facility: [facility] Address: [address] [place] [address] Performed By: #### 2 731-8, 2986-8, 2885-2 ####[facility] LABIA [id number] [place] [address] [place] Prot SerPl-mCncon 03-15-2024 Protein [Mass/Vol] 7.2 g/dL Normal 6.3-8.0 [facility] Comment on above: Order Comment: Speci men Type: BLOOD SPECIMENOrdering Facility: [facility] Address: [address] [place] [address] Performed By: #### 2 731-8, 2986-8, 2885-2 ####[facility] LABCLIA [id number] [place] [id number] [place] Testost SerPl-mCncon 024 Testosterone [Mass/Vol] 269 ng/dL Normal 193-824 [facility] Comment on above: Order Comment: Speci men Type: BLOOD SPECIMENOrdering Facility: [facility] Address: [address] [place] [address] Result Comment: A te stosterone level in the 193-320 ng/dL range with associated clinical symptoms is considered low and may indicate hypogonadism (from [facility] 2010 363:123-135). Results >320 ng/dL are considered normal. Performed By: #### 2 731-8, 2986-8, 288-2 ####[facility] LABCLIA [id number] [address] [place] VASC ENDO GROWTH FACTORon VASC ENDO GROWTH FACTOR 63 pg/mL Normal 9-86 [facility] Comment on above: Order Comment: Speci men Type: BLOOD SPECIMENOrdering Facility: [facility] Address: [address] [place] [address] Result Comment: INTE RPRETIVE INFORMATION: Vascular Endothelial G Factor This assay is performed using the QuantiGlo Chemilumincescent EIA kit. Values obtained with different assay methods or kits cannot be used interchangeably. This test was developed and its performance characteristics determined by [facility]. It has not been cleared or approved by the US Food and Drug Administration. This test was performed in a CLIA certified laboratory and is intended for clinical purposes. Performed By: [facility] [address] [place] [address] Manager Imaging: Gael Louis MD, PhD CLIA Number: [id number] Performed By: #### V EGF ####[facility] [id number] [place] [address] VITAMIN D 25 HYDROXYon 03-15 25-hydroxyvitamin D3 [Mass/Vol] 35.5 ng/mL 31.0 - 80.0 ng/mL [facility] XR BONE SURVEY ROUTINEon XR BONE SURVEY [...] No radiographic evidence of suspicious osseous lesion. Hoop Machine Operator: PSCB Transcribe Date/Time: Mar 18 2024 12:31P Dictated by : WASHINGTON SHARPE DO This examination was interpreted and the report reviewed and electronically signed by: WASHINGTON SHARPE DO on Mar 18 2024 12:38PM EST [id number] Normal [facility] CNPPeggy 02-27-2024 CNPN Telephone (SARMAD) -- FAUSTINO UNGER ([id number]) 1990 M Date Time Provider Department 02/27/24 PHUC KUMAR HEMAWS During your visit today, we recorded the following information about you: Kaley Ward 02/27/2024 8:46 AM Signed Patient is being referred to hematology oncology DX: Abnormal finding on Imaging Insurance: [employer] Referred by: Dawit Rojas APRN. SUPERINTENDENT WAREHOUSE Please review and advise Jadyn Snow LPN 02/27/2024 9:44 AM Signed Please see distance health note from yesterday. GERARD Hennessy Paul A, DO 03/01/2024 2:11 PM Signed Next kerry. or Dr. Manzano. DO Marylou Snider, Harshil 03/01/2024 3:26 PM Signed I called and spoke to patient AND scheduled him with for 03/15/24 @ 1:30 pm, patient confirmed this date, time and location [facility] Pss Allergies As of Date: 02/27/2024 Noted [...] Status:Closed by HARSHIL MANN on 03/01/24 Normal [facility] 02-17-2024 CNPN Telephone (RAAFVC) -- FAUSTINO UNGER ([id number]) 1990 Date Time Provider Department 02/17/24 KASIA [...] - Diarrhea Date Reviewed: 12/22/2023 Reviewed by: Maegd Sims, RN - Fully Assessed Reason for Visit: Actionable Findings Follow Up [0928] Prescriptions as of 05/06/2024 - FLUoxetine (PROZAC) [...] Status:Closed by KASIA ALANIZ on 05/06/24 Normal [facility] ALCOHOL-BLOOD MEDICALon 12-19 Ethanol [Mass/Vol] 5 mg/dL Normal 0 - 50 [facility] Comment on above: Performed By: #### 2 [id number] #### [facility],[address] [place] [address] CBC + DIFFon 01-04-2024 Baso # 0.02 x10EE3/UL Normal 0.00 - 0.10 [facility] Comment on above: Performed By: #### 2 08845 #### [facility],[address] [place] [address] Basophils/100 WBC (Bld) 0.3 % Normal 0.0 - 2.0 [facility] [facility] Comment on above: Performed By: #### 2 67561 #### [facility],[address] [place] [address] CBC + DIFF Normal [facility] Comment on above: Result Comment: CBC- COMPLETE BLOOD COUNT Performed By: #### 2 77873 #### [facility],[address] [place] [address] 31360 EO # 0.23 x10EE3/UL Normal 0.00 - 0.50 [facility] Comment on above: Performed By: #### 2 56073 #### [facility],[address] [place] [address] 52798 Eosinophils/100 WBC (Bld) 3.3 % Normal 0.0 - 7.0 [facility] Comment on above: Performed By: #### 2 58921 #### [facility],[address] [place], [place] [id number] Erythrocyte distribution width (RBC) [Ratio] 13.6 % Normal 12.0 - 15.6 [facility] Comment on above: Performed By: #### 2 24564 #### [facility],[address] [place] [address] Hematocrit (Bld) [Volume fraction] 50.8 % Normal 40.0 - 52.0 [facility] Comment on above: Performed By: #### 2 02569 #### [facility],[address] [place] [address] 60952 Hemoglobin (Bld) [Mass/Vol] 17.2 g/dL Normal 13.0 - 17.5 [facility] Comment on above: Performed By: #### 2 39112 #### [facility],[address] [place] [address] 90839 Lymph # 1.84 x10EE3/UL Normal 0.80 - 2.80 [facility] Comment on above: Performed By: #### 2 85780 #### [facility],[address] [place] [address] 82827 Lymphocytes/100 WBC (Bld) 26.6 % Normal 20.0 - 45.0 [facility] Comment on above: Performed By: #### 2 09460 #### [facility],[address] [place] [address] 28434 MANUAL DIFF N/A Normal [facility] Comment on above: Performed By: #### 2 74981 #### [facility],[address] [place] [address] MCH (RBC) [Entitic mass] 32 pg Normal 27 - 33 [facility] Comment on above: Performed By: #### 2 79556 #### [facility],[address] [place] [address] MCHC 34 X10 3 Normal 32 - 36 [facility] Comment on above: Performed By: #### 2 30907 #### [facility],[address] [place], [place] [address] MCV (RBC) [Entitic vol] 95 fL Normal 81 - 98 [facility] Comment on above: Performed By: #### 2 78753 #### [facility],[address] [place] [address] [place] # 0.90 x10EE3/UL Normal 0.20 - 1.00 [facility] Comment on above: Performed By: #### 2 27236 #### [facility],[address] [place] [address] MONOS % 13.0 % High 0.0 - 10.0 [facility] Comment on above: Performed By: #### 2 44001 #### [facility],[address] [place] [address] Morphology Lit (Bld) [Interp] N/A Normal [facility] Comment on above: Performed By: #### 2 15769 #### [facility],[address] [place] [address] Neut # 3.93 x10EE3/UL Normal 1.50 - 7.10 [facility] Comment on above: Performed By: #### 2 31461 #### [facility],[address] [place] [address] Neutrophils/100 WBC (Bld) 56.8 % Normal 46.0 - 76.0 [facility] Comment on above: Performed By: #### 2 57019 #### [facility],[address] [place] [address] 10592 PLATELET 303 x10EE3/UL Normal 150 - 450 [facility] Comment on above: Performed By: #### 2 40314 #### [facility],[address] [place] [address] 07547 Platelet mean volume (Bld) [Entitic vol] 6.5 fL Normal 6.4 - 10.5 [facility] Comment on above: Result Comment: AUTO MATED DIFFERENTIAL Performed By: #### 2 70610 #### [facility],[address] [place] [address] 93657 RBC 5.32 x 10EE6/UL Normal 4.50 - 6.00 [facility] Comment on above: Performed By: #### 2 55320 #### [facility],[address] [place] [address] 03924 WBC 6.9 x 10EE3/UL Normal 4.5 - 10.8 [facility] Comment on above: Performed By: #### 2 26151 #### [facility],[address] [place] [address] 85692 CMP with eGFRon 01-04-2024 AGE 33 years Normal [facility] Comment on above: Performed By: #### 2 11795 #### [facility],[address] [place] [address] 82375 Albumin [Mass/Vol] 3.9 g/dL Normal 3.4 - 5.0 [facility] Comment on above: Performed By: #### 2 90550 #### [facility],[address] [place] [address] 75113 Albumin/Globulin [Mass ratio] 1.2 {ratio} Normal 0.9 - 1.6 [facility] Comment on above: Performed By: #### 2 05395 #### [facility],[address] [place] [address] 16570 ALK PHOS 103 U/L Normal 46 - 116 [facility] Comment on above: Performed By: #### 2 79637 #### [facility],[address] [place] [address] 04391 ALT [Catalytic activity/Vol] 29 U/L Normal 16 - 63 [facility] Comment on above: Performed By: #### 2 69816 #### [facility],[address] [place] [address] 15555 Anion gap [Moles/Vol] 12 mmol/L Normal 10 - 20 [facility] Comment on above: Performed By: #### 2 26964 #### [facility],[address] [place] [address] 24632 AST [Catalytic activity/Vol] 18 U/L Normal 15 - 37 [facility] Comment on above: Performed By: #### 2 43123 #### [facility],[address] [place] [address] 68593 B/C RATIO 12 ratio Normal 0 - 30 [facility] Comment on above: Performed By: #### 2 47311 #### [facility],[address] [place] [address] 55835 Bilirubin [Mass/Vol] 0.3 mg/dL Normal 0.2 - 1.0 [facility] Comment on above: Performed By: #### 2 81068 #### [facility],[address] [place] [address] 73865 Calcium [Mass/Vol] 8.8 mg/dL Normal 8.5 - 10.1 [facility] Comment on above: Performed By: #### 2 26877 #### [facility],[address] [place] [address] 57612 Chloride [Moles/Vol] 103 mmol/L Normal 98 - 107 [facility] Comment on above: Performed By: #### 2 85406 #### [facility],[address] [place] [address] 17282 CMP with eGFR Normal [facility] Comment on above: Result Comment: COMP REHENSIVE METABOLIC PANEL Performed By: #### 2 08773 #### [facility],[address] [place] [address] 70989 CO2 [Moles/Vol] 26.7 mmol/L Normal 21.0 - 32.0 [facility] Comment on above: Performed By: #### 2 21217 #### [facility],[address] [place] [address] 87684 Creatinine [Mass/Vol] 0.83 mg/dL Normal 0.70 - 1.30 [facility] Comment on above: Performed By: #### 2 92579 #### [facility],[address] [place] [address] 95107 GFR/1.73 sq M.predicted among non-blacks MDRD (S/P/Bld) [Vol rate/Area] mL/min/{1.73_m2} Normal 60 - 999 [facility] Comment on above: Performed By: #### 2 04830 #### [facility],[address] [place] [address] 72390 Result Comment: ACCO RDING TO THE NATIONAL KIDNEY DISEASE EDUCATION PROGRAM(NKDE), A NORMAL eGFR IS A VALUE GREATER THAN OR EQUAL TO 60 ML/MIN/1.73 SQ METERS. CHRONIC KIDNEY DISEASE: <60mL/MIN/1.73 SQ METERS KIDNEY FAILURE: <15mL/MIN/1.73 SQ METERS THIS TEST SHOULD ONLY BE USED FOR PATIENTS 18 YEARS OF AGE AND OLDER. Globulin (S) [Mass/Vol] 3.3 g/dL Normal 1.5 - 3.8 [facility] Comment on above: Performed By: #### 2 37167 #### [facility],[address] [place] [address] 16471 Glucose [Mass/Vol] 122 mg/dL High 74 - 106 [facility] Comment on above: Performed By: #### 2 55885 #### [facility],[address] [place] [address] 47502 Potassium [Moles/Vol] 4.0 mmol/L Normal 3.5 - 5.1 [facility] Comment on above: Performed By: #### 2 99730 #### [facility],[address] [place] [address] 23509 Protein [Mass/Vol] 7.2 g/dL Normal 6.4 - 8.2 [facility] Comment on above: Performed By: #### 2 51088 #### [facility],[address] [place] [address] Sodium [Moles/Vol] 138 mmol/L Normal 136 - 145 [facility] Comment on above: Performed By: #### 2 84306 #### [place] [address] Urea nitrogen [Mass/Vol] 10 mg/dL Normal 7 - 18 [facility] Comment on above: Performed By: #### 2 16126 #### [place] [address] CORONAVIRUS (SARS) ANTIGEN T ESTon 01-04-2024 EXTERNAL QC DONE? YES Normal [facility] Comment on above: Performed By: #### 2 70940 #### [place] [address] INTERNAL CONTROL PASS Normal [facility] Comment on above: Performed By: #### 2 59746 #### [place] [address] SARS ANTIGEN Negative Normal NORMAL: NEGATIVE [facility] Comment on above: Performed By: #### 2 38569 #### [place] [id number] SEND TO ? YES Normal [facility] Comment on above: Result Comment: SARS -CoV-2 THIS TEST IS BEING USED UNDER THE FDA EUA PROCEDURE. THIS ASSAY HAS BEEN VALIDATED AT [facility] FOR USE WITH NASAL AND NASOPHARYNGEAL SWAB [...] PUBLIC HEALTH AUTHORITIES. Performed By: #### 2 58868 #### [place] [address] DRUG SCREEN URINE MEDICon AMPHETAMINES Positive Normal [facility] Comment on above: Performed By: #### 2 62767 #### [facility],[address] [place] [address] B-DIAZEPINES Negative Normal [facility] Comment on above: Performed By: #### 2 59162 #### [facility],[address] [place] [address] BARBITURATES Negative Normal [facility] Comment on above: Performed By: #### 2 43828 #### [facility],[address] [place] [address] COCAINE Negative Normal [facility] Comment on above: Performed By: #### 2 29936 #### [facility],[address] [place] [address] 36883 DRUG SCREEN URINE MEDIC Normal [facility] Comment on above: Result Comment: DRUG SCREEN - URINE Performed By: #### 2 63278 #### [facility],[address] [place] [address] 05340 METHADONE Negative Normal [facility] Comment on above: Performed By: #### 2 79735 #### [facility],[address] [place] [address] 08785 OPIATES Negative Normal [facility] Comment on above: Performed By: #### 2 17185 #### [facility],[address] [place] [address],[facility] [address] PCP Negative Normal [facility] Comment on above: Performed By: #### 2 09982 #### [facility],[address] [place] [address] 64988 THC Negative Normal [facility] Comment on above: Result Comment: QIANA ENTS RECEIVING PROTON PUMP INHIBITORS MAY DEMONSTRATE FALSE POSITIVE THC/CANNABINOID RESULTS. AN ALTERNATIVE CONFIRMATORY METHOD SHOULD BE CONSIDERED TO VERIFY POSITIVE RESULTS. Performed By: #### 2 82621 #### [facility],[address] [place] [address] 40086 URINALYSISon 01-04-2024 Amorphous NONE Normal [facility] Comment on above: Performed By: #### 2 84679 #### [facility],[address] [place] [address] 30203 Bacteria NONE Normal [facility] Comment on above: Performed By: #### 2 22345 #### [facility],[address] [place] [address] 87291 Bilirubin Ql (U) Negative Normal NORMAL: NEGATIVE [facility] Comment on above: Performed By: #### 2 08579 #### [facility],[address] [place] [address] 59084 Casts NONE Normal [facility] Comment on above: Performed By: #### 2 25881 #### [facility],[address] [place] [address] 88667 Clarity (U) clear Normal NORMAL: CLEAR [facility] Comment on above: Performed By: #### 2 75471 #### [facility],[address] [place] [address] 38928 Color (U) yellow Normal NORMAL: YELLOW [facility] Comment on above: Performed By: #### 2 37390 #### [facility],[address] [place] [address] 46685 Crystals LM Nom (Urine sed) NONE Normal [facility] Comment on above: Performed By: #### 2 09705 #### [facility],[address] [place] [address] 30834 Epi Cells NONE Normal [facility] Comment on above: Performed By: #### 2 86305 #### [facility],[address] [place] [address] 84065 Glucose Ql (U) NORM Normal NORMAL: NORMAL [facility] Comment on above: Performed By: #### 2 78523 #### [facility],[address] [place] [address] 90592 Hemoglobin Ql (U) Negative Normal NORMAL: NEGATIVE [facility] Comment on above: Performed By: #### 2 42588 #### [facility],[address] [place] [address] 91325 Ketone Negative Normal NORMAL: NEGATIVE [facility] Comment on above: Performed By: #### 2 24895 #### [facility],[address] [place] [address] 52609 Leukocytes 25 Abnormal NORMAL: NEGATIVE [facility] Comment on above: Performed By: #### 2 20010 #### [facility],[address] [place] [address] 43055 Mucous NONE Normal [facility] Comment on above: Performed By: #### 2 54201 #### [facility],[address] [place] [address] Nitrite Ql (U) Negative Normal NORMAL: NEGATIVE [facility] Comment on above: Performed By: #### 2 19240 #### [facility],[address] [place] [address] pH (U) 8 [pH] Normal NORMAL: 5.0-8.0 [facility] Comment on above: Performed By: #### 2 22472 #### [facility],[address] [place] [address] Protein Ql (U) Negative Normal NORMAL: NEGATIVE [facility] Comment on above: Performed By: #### 2 94572 #### [facility],[address] [place] [address] Rbc NONE Normal 0-3/hpf [facility] Comment on above: Performed By: #### 2 66484 #### [facility],[address] [place] [address] Sp [place] 1.010 Normal NORMAL: 1.010-1.030 [facility] Comment on above: Performed By: #### 2 35268 #### [facility],[address] [place] [address] Specimen Type UNSPECIFIED Normal [facility] Comment on above: Performed By: #### 2 64972 #### [facility],[address] [place] [address] Urinalysis dipstick W Reflex Microscopic panel (U) SEE BELOW Normal [facility] Comment on above: Result Comment: MICR OSCOPIC Performed By: #### 2 94734 #### [facility],[address] [place] [address] Urobilinog 1 Abnormal NORMAL: NORMAL [facility] Comment on above: Performed By: #### 2 48729 #### [facility],[address] [place] [address] Wbc 1-5 Normal 0-5/hpf [facility] Comment on above: Performed By: #### 2 95361 #### [facility],[address] [place] [address] 96949 Yeast NONE Normal [facility] Comment on above: Performed By: #### 2 59855 #### [facility],[address] [place] [address] CT BRAIN WO IVCONon 12-22-[address] BRAIN WO IVCON * * *Final Report* * * DATE OF EXAM: Dec 22 2023 5:59AM [facility] 0504 - CT BRAIN WO IVCON / [...] mild cord indentations. Incidental prominent lingual tonsils. Manager Social (topogram) images: Non-diagnostic. IMPRESSION: Brain CT shows [...] be communicated with the ordering provider via [employer] staff message or phone message by [employer] within 2 business days of report finalization. --END OF FINDING-- Hoop Machine Operator: MIRIAN Transcribe Date/Time: Dec 22 2023 5:59A Dictated by : TAYA ERAZO MD This examination was interpreted and the report reviewed and electronically signed by: TAYA ERAZO MD on Dec 22 2023 6:13AM EST [id number] ACTIONABLE Invalid Interpretation Code [facility] CT CERVICAL SPINE WO IVCONon 12-22-2023 CT CERVICAL SPINE WO IVCON * * *Final Report* * * DATE OF EXAM: Dec 22 2023 5:59AM [facility] 0505 - CT CERVICAL SPINE WO IVCON [...] mild cord indentations. Incidental prominent lingual tonsils. Manager Social (topogram) images: Non-diagnostic. IMPRESSION: Brain CT shows [...] be communicated with the ordering provider via [employer] staff message or phone message by [facility] [employer] within 2 business days of report finalization. --END OF FINDING-- Hoop Machine Operator: MIRIAN Transcribe Date/Time: Dec 22 2023 5:59A Dictated by : TAYA ERAZO MD This examination was interpreted and the report reviewed and electronically signed by: TAYA ERAZO MD on Dec 22 2023 6:13AM EST [id number] ACTIONABLE Invalid Interpretation Code [facility] ED NOTEon 12-22-2023 ED NOTE HNO ID: [id number] Author: MAGED SIMS RN Service: ? Author Type: Registered Nurse Type: ED Notes Filed: 12/22/2023 05:57 Note Text: Ne ROBLERO in pt room at this time Normal [facility] ED NOTE HNO ID: [id number] Author: MAGED SIMS RN Service: ? Author [...] leaking valves. Denies LOC, Blood Thinners, Nausea/Vomiting. [facility] ED PROV NOTEon 12-22-2023 ED PROV NOTE HNO ID: [id number] Author: ANGÉLICA AKBAR MD Service: ? Author [...] 2. No evidence of LEFT rib fracture. Hoop Machine Operator: MIRIAN Transcribe Date/Time: Dec 22 2023 6:21A [...] elsewhere, which (more content not included)... Normal [facility] XR RIB/CHST 3V AP RIB/OBL/CH ST [...] 2. No evidence of LEFT rib fracture. Hoop Machine Operator: [facility] Transcribe Date/Time: Dec 22 2023 6:21A Dictated by : KRYSTAL ALLEN MD This examination was interpreted and the report reviewed and electronically signed by: KRYSTAL ALLEN MD on Dec 22 2023 6:23AM EST [id number] Normal [facility] Activated partial thrombopla stin time (aPTT) in platelet poor plasma by coagulation aOrdered By: Tommy Swanson on 11-13-2023 aPTT Coag (PPP) [Time] 28.7 s 25.1-36.5 [facility] Comment on above: A hematocrit value g reater than 55% may lead to inaccurate results in coagulation testing. Patients having hematocrit values >55% require a special collection tube for coagulation studies. Please contact the laboratory at [phone] for redraw instructions. Alanine aminotransferase [En zymatic activity/volume] in Serum or PlasmaOrdered By: Tommy Swanson on 11-13-2023 ALT [Catalytic activity/Vol] 15 U/L 7-52 [facility] Albumin [Mass/volume] in Ser um or Plasma by Bromocresol green (BCG) dye binding methoOrdered By: Tommy Swanson on 11-13-2023 Albumin BCG dye [Mass/Vol] 4.0 g/dL 3.5-5.7 [facility] Alkaline phosphatase [Enzyma tic activity/volume] in Serum or PlasmaOrdered By: Tommy Swanson on 11-13-2023 ALP [Catalytic activity/Vol] 60 U/L 34-104 [facility] Aspartate aminotransferase [ Enzymatic activity/volume] in Serum or PlasmaOrdered By: Tommy Swanson on 11-13-2023 AST [Catalytic activity/Vol] 14 U/L 13-39 [facility] Automated erythrocytes count in urine sediment (number/area)Ordered By: Tommy Swanson on 11-13-2023 RBC Auto (Urine sed) [#/Area] 0-1 [HPF] 0-4 [facility] Automated leukocytes count i n urine sediment (number/area)Ordered By: Tommy Swanson on 11-13-2023 WBC Auto (Urine sed) [#/Area] 3-4 [HPF] 0-4 [facility] B-Type Natriuretic Peptideon 11-13-2023 Natriuretic peptide B (Bld) [Mass/Vol] 18.0 pg/mL Normal 5-100 [facility] Comment on above: Result Comment: PERF ORMED BY: [facility] [address] [place] [address] PATHOLOGIST SUPERVISOR MAJOR APPLIANCE ASSEMBLY NASIR TOBAR M.D. Performed By: #### B PLANT OPERATIONS COORDINATOR, HS TROP, PT, PTT, LIPASE, CK, CMP, CBC #### [facility] [address] [place] [id number] [place] Basophils Auto (Bld) [#/Vol] Ordered By: Tommy Swanson on 11-13-2023 Basophils (Bld) [#/Vol] 0.1 10*3/uL 0.0-0.2 [facility] Basophils/100 WBC Auto (Bld) Ordered By: Tommy Swanson on 11-13-2023 Basophils/100 WBC (Bld) 1.0 % . [facility] Bilirubin Test strip Ql (U)O rdered By: Tommy Swanson on 11-13-2023 Bilirubin Ql (U) 1+ Negative [facility] Bilirubin.total [Mass/volume ] in Serum or PlasmaOrdered By: Tommy Swanson on 11-13-2023 Bilirubin [Mass/Vol] 0.5 mg/dL 0.3-1.0 [facility] CT abdomen pelvis w conon CT abdomen pelvis w con [facility] [place] [address] [place], [place] [id number] CT Scan Report Signed Patient: Faustino Unger MR#: [id number] : 1990 Acct:[id number] Age/Sex: 33 / M ADM Date: 11/13/23 Loc: ER Room: Type: [facility] ER Attending Dr: Copies to: Tommy Swanson DO Ordering Provider: Tommy Swanson DO Date of Service: 11/13/23 CT/CT angio chest PE protocol: cp ([id number]) CT/CT abdomen pelvis w con: upper abd [...] Teresa Ocampo M.D.11/13/2023 1:02 PM Dictation Location: [place] [address] Transcribed By: SHANKAR 11/13/23 1302 Dictated By: Teresa Ocampo MD 11/13/23 1252 Signed By: 11/13/23 1302 Normal [facility] Calcium [Mass/volume] in Ser um or PlasmaOrdered By: Tommy Swanson on 11-13-2023 Calcium [Mass/Vol] 9.0 mg/dL 8.6-10.3 [facility] Carbon dioxide, total [Moles /volume] in Serum or PlasmaOrdered By: Tommy Swanson on 11-13-2023 CO2 [Moles/Vol] 26.7 mmol/L 21.0-31.0 [facility] Chloride [Moles/volume] in S miles or PlasmaOrdered By: Tommy Swanson on 11-13-2023 Chloride [Moles/Vol] 107 mmol/L 98-107 [facility] Color Auto (U)Ordered By: Hank Swanson on 11-13-2023 Color (U) Dark yellow Yellow [facility] Complete Blood Count Auto Di ffon 11-13-2023 Basophils (Bld) [#/Vol] 0.1 10*3/uL Normal 0.0-0.2 [facility] Comment on above: Result Comment: PERF ORMED BY: [place] [address] PATHOLOGIST SUPERVISOR MAJOR APPLIANCE ASSEMBLY NASIR TOBAR M.D. Performed By: #### B PLANT OPERATIONS COORDINATOR, HS TROP, PT, PTT, LIPASE, CK, CMP, CBC #### [address] Basophils/100 WBC (Bld) 1.0 % Normal . [facility] Comment on above: Performed By: #### B PLANT OPERATIONS COORDINATOR, HS TROP, PT, PTT, LIPASE, CK, CMP, CBC #### [address] Eosinophils (Bld) [#/Vol] 0.3 10*3/uL Normal 0.0-0.45 [facility] Comment on above: Performed By: #### B PLANT OPERATIONS COORDINATOR, HS TROP, PT, PTT, LIPASE, CK, CMP, CBC #### [address] Eosinophils/100 WBC (Bld) 3.8 % Normal . [facility] Comment on above: Performed By: #### B PLANT OPERATIONS COORDINATOR, HS TROP, PT, PTT, LIPASE, CK, CMP, CBC #### [address] Erythrocyte distribution width (RBC) [Ratio] 13.5 % Normal 12.0-14.8 [facility] Comment on above: Performed By: #### B PLANT OPERATIONS COORDINATOR, HS TROP, PT, PTT, LIPASE, CK, CMP, CBC #### [address] Hematocrit (Bld) [Volume fraction] 41.9 % Normal 38.8-50.0 [facility] Comment on above: Performed By: #### B PLANT OPERATIONS COORDINATOR, HS TROP, PT, PTT, LIPASE, CK, CMP, CBC #### [address] Hemoglobin (Bld) [Mass/Vol] 14.3 g/dL Normal 13.0-17.0 [facility] Comment on above: Performed By: #### B PLANT OPERATIONS COORDINATOR, HS TROP, PT, PTT, LIPASE, CK, CMP, CBC #### [address] Lymphocytes (Bld) [#/Vol] 1.9 10*3/uL Normal 1.00-4.8 [facility] Comment on above: Performed By: #### B PLANT OPERATIONS COORDINATOR, HS TROP, PT, PTT, LIPASE, CK, CMP, CBC #### [address] Lymphocytes/100 WBC (Bld) 25.2 % Normal . [facility] Comment on above: Performed By: #### B PLANT OPERATIONS COORDINATOR, HS TROP, PT, PTT, LIPASE, CK, CMP, CBC #### [address] MCH (RBC) [Entitic mass] 32.1 pg Normal 27.5-35.2 [facility] Comment on above: Performed By: #### B PLANT OPERATIONS COORDINATOR, HS TROP, PT, PTT, LIPASE, CK, CMP, CBC #### [address] MCV (RBC) [Entitic vol] 94.3 fL Normal 83.5-101 [facility] Comment on above: Performed By: #### B PLANT OPERATIONS COORDINATOR, HS TROP, PT, PTT, LIPASE, CK, CMP, CBC #### [address] Mean Corpuscular HGB Conc 34.1 g/dL Normal 32.5-35.6 [facility] Comment on above: Performed By: #### B PLANT OPERATIONS COORDINATOR, HS TROP, PT, PTT, LIPASE, CK, CMP, CBC #### [address] Monocytes (Bld) [#/Vol] 1.0 10*3/uL High 0.0-0.8 [facility] Comment on above: Performed By: #### B PLANT OPERATIONS COORDINATOR, HS TROP, PT, PTT, LIPASE, CK, CMP, CBC #### [address] Monocytes/100 WBC (Bld) 19.61 % Normal 0.00-20.00 [facility] Comment on above: Performed By: #### B PLANT OPERATIONS COORDINATOR, HS TROP, PT, PTT, LIPASE, CK, CMP, CBC #### [address] Monocytes/100 WBC (Bld) 13.8 % Normal . [facility] Comment on above: Performed By: #### B PLANT OPERATIONS COORDINATOR, HS TROP, PT, PTT, LIPASE, CK, CMP, CBC #### [address] Neutrophils (Bld) [#/Vol] 4.2 10*3/uL Normal 1.8-7.7 [facility] Comment on above: Performed By: #### B PLANT OPERATIONS COORDINATOR, HS TROP, PT, PTT, LIPASE, CK, CMP, CBC #### [address] Neutrophils/100 WBC (Bld) 56.2 % Normal . [facility] Comment on above: Performed By: #### B PLANT OPERATIONS COORDINATOR, HS TROP, PT, PTT, LIPASE, CK, CMP, CBC #### [address] NRBC% 0.1 /100{WBC} Normal 0-0.5 [facility] Comment on above: Performed By: #### B PLANT OPERATIONS COORDINATOR, HS TROP, PT, PTT, LIPASE, CK, CMP, CBC #### [address] Platelet mean volume (Bld) [Entitic vol] 6.7 fL Normal 6.6-10.1 [facility] Comment on above: Performed By: #### B PLANT OPERATIONS COORDINATOR, HS TROP, PT, PTT, LIPASE, CK, CMP, CBC #### [address] Platelets (Bld) [#/Vol] 323 10*3/uL Normal 150-450 [facility] Comment on above: Performed By: #### B PLANT OPERATIONS COORDINATOR, HS TROP, PT, PTT, LIPASE, CK, CMP, CBC #### [address] RBC (Bld) [#/Vol] 4.44 10*6/uL Normal 3.90-5.60 [facility] Comment on above: Performed By: #### B PLANT OPERATIONS COORDINATOR, HS TROP, PT, PTT, LIPASE, CK, CMP, CBC #### [address] WBC (Bld) [#/Vol] 7.6 10*3/uL Normal 4.1-10.5 [facility] Comment on above: Performed By: #### B PLANT OPERATIONS COORDINATOR, HS TROP, PT, PTT, LIPASE, CK, CMP, CBC #### [address] Comprehensive Metabolic Pane jacobo 11-13-2023 Albumin [Mass/Vol] 4.0 g/dL Normal 3.5-5.7 [facility] Comment on above: Performed By: #### B PLANT OPERATIONS COORDINATOR, HS TROP, PT, PTT, LIPASE, CK, CMP, CBC #### [address] Albumin/Globulin [Mass ratio] 1.7 {ratio} Normal [facility] Comment on above: Performed By: #### B PLANT OPERATIONS COORDINATOR, HS TROP, PT, PTT, LIPASE, CK, CMP, CBC #### [address] ALP [Catalytic activity/Vol] 60 U/L Normal 34-104 [facility] Comment on above: Performed By: #### B PLANT OPERATIONS COORDINATOR, HS TROP, PT, PTT, LIPASE, CK, CMP, CBC #### [address] ALT [Catalytic activity/Vol] 15 U/L Normal 7-52 [facility] Comment on above: Performed By: #### B PLANT OPERATIONS COORDINATOR, HS TROP, PT, PTT, LIPASE, CK, CMP, CBC #### [address] Anion gap [Moles/Vol] 8.2 mmol/L Normal 6.0-15.0 [facility] Comment on above: Performed By: #### B PLANT OPERATIONS COORDINATOR, HS TROP, PT, PTT, LIPASE, CK, CMP, CBC #### [address] AST [Catalytic activity/Vol] 14 U/L Normal 13-39 [facility] Comment on above: Performed By: #### B PLANT OPERATIONS COORDINATOR, HS TROP, PT, PTT, LIPASE, CK, CMP, CBC #### [address] Bilirubin [Mass/Vol] 0.5 mg/dL Normal 0.3-1.0 [facility] Comment on above: Performed By: #### B PLANT OPERATIONS COORDINATOR, HS TROP, PT, PTT, LIPASE, CK, CMP, CBC #### [address] Calcium [Mass/Vol] 9.0 mg/dL Normal 8.6-10.3 [facility] Comment on above: Performed By: #### B PLANT OPERATIONS COORDINATOR, HS TROP, PT, PTT, LIPASE, CK, CMP, CBC #### [address] Chloride [Moles/Vol] 107 mmol/L Normal 98-107 [facility] Comment on above: Performed By: #### B PLANT OPERATIONS COORDINATOR, HS TROP, PT, PTT, LIPASE, CK, CMP, CBC #### [address] CO2 [Moles/Vol] 26.7 mmol/L Normal 21.0-31.0 [facility] Comment on above: Performed By: #### B PLANT OPERATIONS COORDINATOR, HS TROP, PT, PTT, LIPASE, CK, CMP, CBC #### [address] Creatinine [Mass/Vol] 1.03 mg/dL Normal 0.70-1.30 [facility] Comment on above: Performed By: #### B PLANT OPERATIONS COORDINATOR, HS TROP, PT, PTT, LIPASE, CK, CMP, CBC #### [address] Creatinine Clr Calc Pharmacy 94.15 Normal [facility] Comment on above: Performed By: #### B PLANT OPERATIONS COORDINATOR, HS TROP, PT, PTT, LIPASE, CK, CMP, CBC #### [address] GFR/1.73 sq M.predicted MDRD (S/P/Bld) [Vol rate/Area] mL/min/{1.73_m2} Normal [facility] Comment on above: Performed By: #### B PLANT OPERATIONS COORDINATOR, HS TROP, PT, PTT, LIPASE, CK, CMP, CBC #### [address] Globulin (S) [Mass/Vol] 2.3 g/dL Normal [facility] Comment on above: Performed By: #### B PLANT OPERATIONS COORDINATOR, HS TROP, PT, PTT, LIPASE, CK, CMP, CBC #### [address] Glucose [Mass/Vol] 80 mg/dL Normal 70-100 [facility] Comment on above: Result Comment: [place] Glucose Reference Range is dependent on time and content of last meal. Glucose of more than 200 mg/dL in a nonstressed, ambulatory subject supports the diagnosis of Diabetes Mellitus. ADA recommended reference range Performed By: #### B PLANT OPERATIONS COORDINATOR, HS TROP, PT, PTT, LIPASE, CK, CMP, CBC #### [address] Potassium [Moles/Vol] 3.9 mmol/L Normal 3.5-5.1 [facility] Comment on above: Performed By: #### B PLANT OPERATIONS COORDINATOR, HS TROP, PT, PTT, LIPASE, CK, CMP, CBC #### [address] Protein [Mass/Vol] 6.3 g/dL Low 6.4-8.9 [facility] Comment on above: Performed By: #### B PLANT OPERATIONS COORDINATOR, HS TROP, PT, PTT, LIPASE, CK, CMP, CBC #### [address] Sodium [Moles/Vol] 138 mmol/L Normal 136-145 [facility] Comment on above: Performed By: #### B PLANT OPERATIONS COORDINATOR, HS TROP, PT, PTT, LIPASE, CK, CMP, CBC #### [address] Urea nitrogen [Mass/Vol] 10 mg/dL Normal 7-25 [facility] Comment on above: Performed By: #### B PLANT OPERATIONS COORDINATOR, HS TROP, PT, PTT, LIPASE, CK, CMP, CBC #### [address] Creatine Kinaseon 11-13-2023 CK [Catalytic activity/Vol] 57 U/L Normal [facility] Comment on above: Performed By: #### B PLANT OPERATIONS COORDINATOR, HS TROP, PT, PTT, LIPASE, CK, CMP, CBC #### [address] Creatine kinase [Enzymatic a ctivity/volume] in Serum or PlasmaOrdered By: Tommy Swanson on 11-13-2023 CK [Catalytic activity/Vol] 57 U/L 30- [facility] Creatinine [Mass/volume] in Serum or PlasmaOrdered By: Tommy Swanson on 11-13-2023 Creatinine [Mass/Vol] 1.03 mg/dL 0.70-1.30 [facility] Dipstick and Microscopicon 0 11-13-2023 Appearance (U) Turbid Critically abnormal Clear [facility] Comment on above: Order Comment: Name Collection Type:: Clean-Voided Midstream Performed By: #### A DDONUAPLUS #### [address] Bacteria,Urine None Seen Normal None Seen [facility] Comment on above: Order Comment: Name Collection Type:: Clean-Voided Midstream Performed By: #### A DDONUAPLUS #### [place] [address] [place] Bilirubin,Urine 1+ High Negative [facility] Comment on above: Order Comment: Name Collection Type:: Clean-Voided Midstream Performed By: #### A DDONUAPLUS #### [address] Color (U) Dark Yellow Critically abnormal Yellow [facility] Comment on above: Order Comment: Name Collection Type:: Clean-Voided Midstream Performed By: #### A DDONUAPLUS #### [address] Glucose Ql (U) Normal Normal Normal [facility] Comment on above: Order Comment: Name Collection Type:: Clean-Voided Midstream Performed By: #### A DDONUAPLUS #### [place] [address] [place] Hyaline Casts,Urine 0-8 Normal 0-8 [facility] Comment on above: Order Comment: Name Collection Type:: Clean-Voided Midstream Result Comment: PERF ORMED BY: [place] [address] PATHOLOGIST SUPERVISOR MAJOR APPLIANCE ASSEMBLY NASIR TOBAR M.D. Performed By: #### A DDONUAPLUS #### [place] [address] [place] Ketones Ql (U) Trace High Negative [facility] Comment on above: Order Comment: Name Collection Type:: Clean-Voided Midstream Performed By: #### A DDONUAPLUS #### [place] [address] [place] Leukocyte esterase Test strip Ql (U) 1+ High Negative [facility] Comment on above: Order Comment: Name Collection Type:: Clean-Voided Midstream Performed By: #### A DDONUAPLUS #### [place] [address] [place] Nitrite,Urine Negative Normal Negative [facility] Comment on above: Order Comment: Name Collection Type:: Clean-Voided Midstream Performed By: #### A DDONUAPLUS #### [address] Occult Blood,Urine Negative Normal Negative [facility] Comment on above: Order Comment: Name Collection Type:: Clean-Voided Midstream Result Comment: PERF ORMED BY: [place] [address] PATHOLOGIST SUPERVISOR MAJOR APPLIANCE ASSEMBLY NASIR TOBAR M.D. Performed By: #### A DDONUAPLUS #### [address] pH (U) 8.5 [pH] Normal 5.0-9.0 [facility] Comment on above: Order Comment: Name Collection Type:: Clean-Voided Midstream Performed By: #### A DDONUAPLUS #### [place] [address] [place] Protein,Urine Trace High Negative [facility] Comment on above: Order Comment: Name Collection Type:: Clean-Voided Midstream Performed By: #### A DDONUAPLUS #### [place] [address] [place] RBC LM.HPF (Urine sed) [#/Area] 0 /[HPF] Normal 0-4 [facility] Comment on above: Order Comment: Name Collection Type:: Clean-Voided Midstream Performed By: #### A DDONUAPLUS #### [place] [address] [place] Specificy [place],Urine 1.026 Normal 1.001-1.030 [facility] Comment on above: Order Comment: Name Collection Type:: Clean-Voided Midstream Performed By: #### A DDONUAPLUS #### [place] [id number] [place] Squamous Epithelial Cell,Urine 0-1 Normal 0-2 [facility] Comment on above: Order Comment: Name Collection Type:: Clean-Voided Midstream Performed By: #### A DDONUAPLUS #### [facility] [address] [place] [address] Urobilinogen,Urine >=2 High Normal [facility] Comment on above: Order Comment: Name Collection Type:: Clean-Voided Midstream Performed By: #### A DDONUAPLUS #### [facility] [address] [place] [address] WBC,Urine 3-4 Normal 0-4 [facility] Comment on above: Order Comment: Name Collection Type:: Clean-Voided Midstream Performed By: #### A DDONUAPLUS #### [address] ECG 12 lead ECGon 11-13-2023 ECG 12 lead ECG [facility] [place] [address] Electrocardiograph Report Signed Patient: Faustino Unger MR#: [id number] : 1990 Acct:[id number] Age/Sex: 33 / M ADM Date: 11/13/23 Loc: ER Room: Type: [facility] ER Attending Dr: Ordering Provider: Tommy Swanson [...] sinus rhythm Confirmed by Tommy SWANSON DO ([id number]) on 11/13/2023 3:23:03 PM Referred By: Electronically Signed By:Tommy SWANSON DO Transcribed By: MUS Signed By Tommy Swanson DO 0 11/13/23 1523 Normal [facility] Eosinophils Auto (Bld) [#/Vo l]Ordered By: Tommy Swanson on 11-13-2023 Eosinophils (Bld) [#/Vol] 0.3 10*3/uL 0.0-0.45 [facility] Eosinophils/100 WBC Auto (Bl d)Ordered By: Tommy Swanson on 11-13-2023 Eosinophils/100 WBC (Bld) 3.8 % . [facility] Erythrocyte distribution wid th Auto (RBC) [Ratio]Ordered By: Tommy Swanson on 11-13-2023 Erythrocyte distribution width (RBC) [Ratio] 13.5 % 12.0-14.8 [facility] Globulin Calc (S) [Mass/Vol] Ordered By: Tommy Swanson on 11-13-2023 Globulin (S) [Mass/Vol] 2.3 g/dL [facility] Glucose [Mass/volume] in Ser um or PlasmaOrdered By: Tommy Swanson on 11-13-2023 Glucose [Mass/Vol] 80 mg/dL 70-100 [facility] Comment on above: ADA recommended refe rence rangeRandom Glucose Reference Range is dependent on time and content of last meal. Glucose of more than 200 mg/dL in a nonstressed, ambulatory subject supports the diagnosis of Diabetes Mellitus. Hematocrit Auto (Bld) [Volum e fraction]Ordered By: Tommy Swanson on 11-13-2023 Hematocrit (Bld) [Volume fraction] 41.9 % 38.8-50.0 [facility] Hemoglobin [Mass/volume] in BloodOrdered By: Tommy Swanson 11-13-2023 Hemoglobin (Bld) [Mass/Vol] 14.3 g/dL 13.0-17.0 [facility] INR in Platelet poor plasma by Coagulation assayOrdered By: Tommy Swanson on 11-13-2023 INR Coag (PPP) [Relative time] 1.1 {INR} [facility] Comment on above: INR Therapeutic Rang e [...] on 11-13-2023 Ketones (U) [Mass/Vol] Trace Negative [facility] Laboratory - UrinalysisOrder ed By: Tommy Swanson on 11-13-2023 Hyaline casts LM Ql (Urine sed) 0-8 [LPF] 0-8 [facility] Leukocytes [#/volume] correc sylvie for nucleated erythrocytes in Blood by Automated counOrdered By: Tommy Swanson on 11-13-2023 WBC corrected for nucl RBC Auto (Bld) [#/Vol] 7.6 10*3/uL 4.1-10.5 [facility] Lipaseon 11-13-2023 Lipase [Catalytic activity/Vol] 49.0 U/L Normal 11.0-82.0 [facility] Comment on above: Result Comment: PERF ORMED BY: [place] [address] PATHOLOGIST SUPERVISOR MAJOR APPLIANCE ASSEMBLY NASIR TOBAR M.D. Performed By: #### B PLANT OPERATIONS COORDINATOR, HS TROP, PT, PTT, LIPASE, CK, CMP, CBC #### [facility] [address] Lipase [Enzymatic activity/v olume] in Serum or PlasmaOrdered By: Tommy Swanson on 11-13-2023 Lipase [Catalytic activity/Vol] 49.0 U/L 11.0-82.0 [facility] Lymphocytes Auto (Bld) [#/Vo l]Ordered By: Tommy Swanson on 11-13-2023 Lymphocytes (Bld) [#/Vol] 1.9 10*3/uL 1.00-4.8 [facility] Lymphocytes/100 WBC Auto (Bl d)Ordered By: Tommy Swanson on 11-13-2023 Lymphocytes/100 WBC (Bld) 25.2 % . [facility] MCH Auto (RBC) [Entitic mass ]Ordered By: Tommy Swanson on 11-13-2023 MCH (RBC) [Entitic mass] 32.1 pg 27.5-35.2 [facility] MCHC Auto (RBC) [Mass/Vol]Or dered By: Tommy Swanson on 11-13-2023 MCHC (RBC) [Mass/Vol] 34.1 g/dL 32.5-35.6 [facility] MCV Auto (RBC) [Entitic vol] Ordered By: Tommy Swanson on 11-13-2023 MCV (RBC) [Entitic vol] 94.3 fL 83.5-101 [facility] Monocyte distribution width [Entitic volume] in Blood by AutomatedOrdered By: Tommy Swanson on 11-13-2023 Monocyte distribution width Auto (Bld) [Entitic vol] 19.61 % 0.00-20.00 [facility] Monocytes Auto (Bld) [#/Vol] Ordered By: Tommy Swanson on 11-13-2023 Monocytes (Bld) [#/Vol] 1.0 10*3/uL 0.0-0.8 [facility] Monocytes/100 WBC Auto (Bld) Ordered By: Tommy Swanson on 11-13-2023 Monocytes/100 WBC (Bld) 13.8 % . [facility] Natriuretic peptide B [Mass/ Vol]Ordered By: Tommy Swanson on 11-13-2023 Natriuretic peptide B (Bld) [Mass/Vol] 18.0 pg/mL 5-100 [facility] Neutrophils Auto (Bld) [#/Vo l]Ordered By: Tommy Swanson on 11-13-2023 Neutrophils (Bld) [#/Vol] 4.2 10*3/uL 1.8-7.7 [facility] Neutrophils/100 WBC Auto (Bl d)Ordered By: Tommy Swanson on 11-13-2023 Neutrophils/100 WBC (Bld) 56.2 % . [facility] Nitrite Test strip Ql (U)Ord ered By: Tommy Swanson on 11-13-2023 Nitrite Ql (U) Negative Negative [facility] No Panel InformationOrdered By: Tommy Swanson on 11-13-2023 Estimated GFR (CKD-EPI) > 60.0 mL/Min [facility] Creatinine Clearance (Chem 94.15 [facility] Nucleated erythrocytes [Pres ence] in Blood by Automated countOrdered By: Tommy Swanson on 11-13-2023 Nucleated RBC Auto Ql (Bld) 0.1 /100{WBC} 0-0.5 [facility] Partial Thromboplastin Timeo n 04-25-2024 aPTT Coag (Bld) [Time] 28.7 s Normal 25.1-36.5 [facility] Comment on above: Result Comment: A he matocrit value greater than 55% may lead to inaccurate results in coagulation testing. Patients having hematocrit values >55% require a special collection tube for coagulation studies. Please contact the laboratory at [phone] for redraw instructions. PERFORMED BY: [facility] [address] [place] [address] PATHOLOGIST SUPERVISOR MAJOR APPLIANCE ASSEMBLY NASIR TOBAR M.D. Performed By: #### B PLANT OPERATIONS COORDINATOR, HS TROP, PT, PTT, LIPASE, CK, CMP, CBC #### [facility] [address] [place] [address] Platelet mean volume Auto (B ld) [Entitic vol]Ordered By: Tommy Swanson on 11-13-2023 Platelet mean volume (Bld) [Entitic vol] 6.7 fL 6.6-10.1 [facility] Platelets Auto (Bld) [#/Vol] Ordered By: Tommy Swanson on 11-13-2023 Platelets (Bld) [#/Vol] 323 10*3/uL 150-450 [facility] Potassium [Moles/volume] in Serum or PlasmaOrdered By: Tommy Swanson on 11-13-2023 Potassium [Moles/Vol] 3.9 mmol/L 3.5-5.1 [facility] Protein Auto test strip (U) [Mass/Vol]Ordered By: Tommy Swanson on 11-13-2023 Protein (U) [Mass/Vol] Trace mg/dL Negative [facility] Protein [Mass/volume] in Ser um or PlasmaOrdered By: Tommy Swanson on 11-13-2023 Protein [Mass/Vol] 6.3 g/dL 6.4-8.9 [facility] Prothrombin Time INRon 11-12 INR Coag (PPP) [Relative time] 1.1 {INR} Normal [facility] Comment on above: Result Comment: [...] 3 - 4.5 Performed By: #### B PLANT OPERATIONS COORDINATOR, HS TROP, PT, PTT, LIPASE, CK, CMP, CBC #### [facility] [address] [place] [id number] [facility] PT Coag (PPP) [Time] 12.6 s Normal 9.0-12.9 [facility] Comment on above: Result Comment: A he matocrit value greater than 55% may lead to inaccurate results in coagulation testing. Patients having hematocrit values >55% require a special collection tube for coagulation studies. Please contact the laboratory at [phone] for redraw instructions. Performed By: #### B PLANT OPERATIONS COORDINATOR, HS TROP, PT, PTT, LIPASE, CK, CMP, CBC #### [facility] [address] [place] [id number] [facility] Prothrombin time (PT)Ordered By: Tommy Swanson on 11-13-2023 PT Coag (PPP) [Time] 12.6 s 9.0-12.9 [facility] Comment on above: A hematocrit value g reater than 55% may lead to inaccurate results in coagulation testing. Patients having hematocrit values >55% require a special collection tube for coagulation studies. Please contact the laboratory at [phone] for redraw instructions. RBC Auto (Bld) [#/Vol]Ordere d By: Tommy Swanson on 11-13-2023 RBC (Bld) [#/Vol] 4.44 10*6/uL 3.90-5.60 [facility] Serum or plasma albumin/glob ulin mass ratioOrdered By: Tommy Swanson on 11-13-2023 Albumin/Globulin [Mass ratio] 1.7 {ratio} [facility] Serum or plasma anion gap de terminationOrdered By: Tommy Swanson on 11-13-2023 Anion gap [Moles/Vol] 8.2 mmol/L 6.0-15.0 [facility] Sodium [Moles/volume] in Ser um or PlasmaOrdered By: Tommy Swanson on 11-13-2023 Sodium [Moles/Vol] 138 mmol/L 136-145 [facility] Specific gravity Auto test s trip (U) [Rel density]Ordered By: Tommy Swanson on 11-13-2023 Specific gravity (U) [Rel density] 1.026 1.001-1.030 [facility] Squamous epithelial cells de tection in urine sediment by light microscopyOrdered By: Tommy Swanson on 11-13-2023 Epithelial cells.squamous LM Ql (Urine sed) 0-1 [HPF] 0-2 [facility] Troponin I High Sensitivityo n 11-13-2023 Troponin I High Sensitivity 3.2 pg/mL Normal 0.0-20.0 [facility] Comment on above: Result Comment: PERF ORMED BY: [place] [address] PATHOLOGIST SUPERVISOR MAJOR APPLIANCE ASSEMBLY NASIR TOBAR M.D. Performed By: #### B PLANT OPERATIONS COORDINATOR, HS TROP, PT, PTT, LIPASE, CK, CMP, CBC #### [facility] [address] [place] [address] Troponin I.cardiac [Mass/vol ume] in Serum or Plasma by Detection limit <= 0.01 ng/Ordered By: Tommy Swanson on 11-13-2023 Troponin I.cardiac DL <= 0.01 ng/mL [Mass/Vol] 3.2 pg/mL 0.0-20.0 [facility] Urea nitrogen [Mass/volume] in Serum or PlasmaOrdered By: Tommy Swanson on 11-13-2023 Urea nitrogen [Mass/Vol] 10 mg/dL 02-11 [facility] Urine bacteria detection by automated methodOrdered By: Tommy Swanson on 11-13-2023 Bacteria Auto Ql (U) None seen None Seen [facility] Urine clarity by refractomet ry automatedOrdered By: Tommy Swanson on 11-13-2023 Clarity Refractometry automated (U) Turbid Clear [facility] Urine glucose measurement by automated test strip (mass/volume)Ordered By: Tommy Swanson on 11-13-2023 Glucose Auto test strip (U) [Mass/Vol] Normal mg/dL Normal [facility] Urine hemoglobin detection b y automated test stripOrdered By: Tommy Swanson on 11-13-2023 Hemoglobin Auto test strip Ql (U) Negative Negative [facility] Urine leukocyte esterase det ection by automated test stripOrdered By: Tommy Swanson on 11-13-2023 Leukocyte esterase Auto test strip Ql (U) 1+ Negative [facility] Urobilinogen Auto test strip (U) [Mass/Vol]Ordered By: Tommy Swanson on 11-13-2023 Urobilinogen (U) [Mass/Vol] mg/dL Normal [facility] WBC Auto (Bld) [#/Vol]Ordere d By: Tommy Swanson on 11-13-2023 WBC (Bld) [#/Vol] 7.6 10*3/uL 4.1-10.5 [facility] pH Auto test strip (U)Ordere d By: Tommy Swanson on 11-13-2023 pH (U) 8.5 [pH] 5.0-9.0 [facility] ALLIED HEALTHon 10-18-2023 ALLIED HEALTH HNO ID: [id number] Author: BRANDON HUDDLESTON RT(R) Service: Radiology Author [...] PATIENT PRESENTS WITH AN IMPLANTABLE OR ATTACHED TORPEDO WORKER: No RADIOLOGY DEPARTMENT: General X-ray: Exam(s) Completed: Chest X-Ray PERIPHERAL IV DATA: Not applicable SIGNED BY: RT Farshad(R) October 18, 2023 1:04 PM [facility] CBC W Auto Differential pane l (Bld)on 10-18-2023 Basophils (Bld) [#/Vol] 0.06 10*3/uL Normal <0.[address] [facility] Comment on above: Order Comment: Speci men Type: BLOOD SPECIMEN Ordering Facility: [facility] Address: [address] [place] [address] Performed By: #### 5 7021-8 #### [facility] CLIA [id number] [address] [place] [address] [place] Basophils/100 WBC (Bld) 0.8 % Normal [facility] Comment on above: Order Comment: Speci men Type: BLOOD SPECIMEN Ordering Facility: [facility] Address: [address] [place] [address] Performed By: #### 5 7021-8 #### [facility] CLIA [id number] [address] Differential cell count method Nom (Bld) Auto Normal [facility] Comment on above: Order Comment: Speci men Type: BLOOD SPECIMEN Ordering Facility: [facility] Address: [address] [place] [address] Performed By: #### 5 7021-8 #### [facility] CLIA [id number] [address] [place] [address] [place] Eosinophils (Bld) [#/Vol] 0.19 10*3/uL Normal <0.[address] [facility] Comment on above: Order Comment: Speci men Type: BLOOD SPECIMEN Ordering Facility: [facility] Address: [address] [place] [address] Performed By: #### 5 7021-8 #### [facility] CLIA [id number] [address] Eosinophils/100 WBC (Bld) 2.5 % Normal [facility] Comment on above: Order Comment: Speci men Type: BLOOD SPECIMEN Ordering Facility: [facility] Address: [address] [place] [address] Performed By: #### 5 7021-8 #### [facility] CLIA [id number] [address] [place] Erythrocyte distribution width (RBC) [Ratio] 13.0 % Normal 11.5-15.[address] [facility] Comment on above: Order Comment: Speci men Type: BLOOD SPECIMEN Ordering Facility: [facility] Address: [address] [place] [address] Performed By: #### 5 7021-8 #### [facility] CLIA [id number] [address] [place] Hematocrit (Bld) [Volume fraction] 47.5 % Normal 39.0-51.[address] [facility] Comment on above: Order Comment: Speci men Type: BLOOD SPECIMEN Ordering Facility: [facility] Address: [address] [place] [address] Performed By: #### 5 7021-8 #### [facility] CLIA [id number] [address] [place] [address] [place] Hemoglobin (Bld) [Mass/Vol] 15.9 g/dL Normal 13.0-17.[address] [facility] Comment on above: Order Comment: Speci men Type: BLOOD SPECIMEN Ordering Facility: [facility] Address: [address] [place] [address] Performed By: #### 5 7021-8 #### [facility] CLIA [id number] [address] [place] [address] [place] Immature granulocytes (Bld) [#/Vol] 0.13 10*3/uL High <0.[address] [facility] Comment on above: Order Comment: Speci men Type: BLOOD SPECIMEN Ordering Facility: [facility] Address: [address] [place] [address] Performed By: #### 5 7021-8 #### [facility] CLIA [id number] [address] [place] Immature granulocytes/100 WBC (Bld) 1.7 % Normal [facility] Comment on above: Order Comment: Speci men Type: BLOOD SPECIMEN Ordering Facility: [facility] Address: [address] [place] [address] Performed By: #### 5 7021-8 #### [facility] CLIA [id number] [address] [place] [address] [place] Lymphocytes (Bld) [#/Vol] 1.88 10*3/uL Normal 1.00-4.[address] [facility] Comment on above: Order Comment: Speci men Type: BLOOD SPECIMEN Ordering Facility: [facility] Address: [address] [place] [address] Performed By: #### 5 7021-8 #### [facility] CLIA [id number] [address] Lymphocytes/100 WBC (Bld) 24.3 % Normal [facility] Comment on above: Order Comment: Speci men Type: BLOOD SPECIMEN Ordering Facility: [facility] Address: [address] [place] [address] Performed By: #### 5 7021-8 #### [facility] CLIA [id number] [address] MCH (RBC) [Entitic mass] 32.1 pg Normal 26.0-34.[address] [facility] Comment on above: Order Comment: Speci men Type: BLOOD SPECIMEN Ordering Facility: [facility] Address: [address] [place] [address] Performed By: #### 5 7021-8 #### [facility] CLIA [id number] [address] STATES [facility] MCHC (RBC) [Mass/Vol] 33.5 g/dL Normal 30.5-36.0 [facility] Comment on above: Order Comment: Speci men Type: BLOOD SPECIMEN Ordering Facility: [facility] Address: [address] [place] [address] Performed By: #### 5 7021-8 #### [facility] CLIA [id number] [address] MCV (RBC) [Entitic vol] 95.8 fL Normal 80.0-100.[address] [facility] Comment on above: Order Comment: Speci men Type: BLOOD SPECIMEN Ordering Facility: [facility] Address: [address] [place] [address] Performed By: #### 5 7021-8 #### [facility] CLIA [id number] [address] Monocytes (Bld) [#/Vol] 0.81 10*3/uL Normal <0.[address] [facility] Comment on above: Order Comment: Speci men Type: BLOOD SPECIMEN Ordering Facility: [facility] Address: [address] [place] [address] Performed By: #### 5 7021-8 #### [facility] CLIA [id number] [address] [place] [address] [place] Monocytes/100 WBC (Bld) 10.5 % Normal [facility] Comment on above: Order Comment: Speci men Type: BLOOD SPECIMEN Ordering Facility: [facility] Address: [address] [place] [address] Performed By: #### 5 7021-8 #### [facility] CLIA [id number] [address] [place] [address] [place] Neutrophils (Bld) [#/Vol] 4.68 10*3/uL Normal 1.45-7.[address] [facility] Comment on above: Order Comment: Speci men Type: BLOOD SPECIMEN Ordering Facility: [facility] Address: [address] [place] [address] Performed By: #### 5 7021-8 #### [facility] CLIA [id number] [address] [place] [address] [place] Neutrophils/100 WBC (Bld) 60.2 % Normal [facility] Comment on above: Order Comment: Speci men Type: BLOOD SPECIMEN Ordering Facility: [facility] Address: [address] [place] [address] Performed By: #### 5 7021-8 #### [facility] CLIA [id number] [address] [place] [address] [place] Nucleated RBC (Bld) [#/Vol] 10*3/uL Normal <0.[address] [facility] Comment on above: Order Comment: Speci men Type: BLOOD SPECIMEN Ordering Facility: [facility] Address: [address] [place] [address] Performed By: #### 5 7021-8 #### [facility] CLIA [id number] [address] [place] [address] [place] Nucleated RBC/100 WBC (Bld) [Ratio] 0.0 /[address] [facility] Comment on above: Order Comment: Speci men Type: BLOOD SPECIMEN Ordering Facility: [facility] Address: [address] [place] [address] Performed By: #### 5 7021-8 #### [facility] CLIA [id number] [address] [place] [address] [place] Platelet mean volume (Bld) [Entitic vol] 8.1 fL Low 9.0-12.[address] [facility] Comment on above: Order Comment: Speci men Type: BLOOD SPECIMEN Ordering Facility: [facility] Address: [address] [place] [address] Performed By: #### 5 7021-8 #### [facility] CLIA [id number] [address] [place] [address] [facility] [place] Platelets (Bld) [#/Vol] 253 10*3/uL Normal 150-[address] [facility] Comment on above: Order Comment: Speci men Type: BLOOD SPECIMEN Ordering Facility: [facility] Address: [address] [place] [address] Performed By: #### 5 7021-8 #### [facility] CLIA [id number] [address] [place] [address] [place] RBC (Bld) [#/Vol] 4.96 10*6/uL Normal 4.20-6.00 [facility] Comment on above: Order Comment: Speci men Type: BLOOD SPECIMEN Ordering Facility: [facility] Address: [address] [place] [address] Performed By: #### 5 7021-8 #### [facility] CLIA [id number] [address] [place] [address] [facility] [place] WBC (Bld) [#/Vol] 7.75 10*3/uL Normal 3.70-11.00 [facility] Comment on above: Order Comment: Speci men Type: BLOOD SPECIMEN Ordering Facility: [facility] Address: [address] [place] [address] Performed By: #### 5 7021-8 #### [facility] CLIA [id number] [address] [place] Comprehensive metabolic 2000 panelon 10-18-2023 Albumin [Mass/Vol] 4.4 g/dL Normal 3.9-4.[address] [facility] Comment on above: Order Comment: Speci men Type: BLOOD SPECIMEN Ordering Facility: [facility] Address: [address] [place] [address] Performed By: #### 3 3762-6, 70831-6, [id number] #### [facility] CLIA [id number] [address] [place] [address] [place] ALP [Catalytic activity/Vol] 92 U/L Normal 38-[address] [facility] Comment on above: Order Comment: Speci men Type: BLOOD SPECIMEN Ordering Facility: [facility] Address: [address] [place] [address] Performed By: #### 3 3762-6, 28717-6, [id number] #### [facility] CLIA [id number] [address] [place] [address] [place] ALT [Catalytic activity/Vol] 19 U/L Normal 10-[address] [facility] Comment on above: Order Comment: Speci men Type: BLOOD SPECIMEN Ordering Facility: [facility] Address: [address] [place] [address] Performed By: #### 3 3762-6, 67665-6, [id number] #### [facility] CLIA [id number] [address] STATES [facility] Anion gap [Moles/Vol] 8 mmol/L Low 9-18 [facility] Comment on above: Order Comment: Speci men Type: BLOOD SPECIMEN Ordering Facility: [facility] Address: [address] [place] [address] Performed By: #### 3 3762-6, 18938-5, [id number] #### [facility] CLIA [id number] [address] [place] [address] [place] AST [Catalytic activity/Vol] 21 U/L Normal 14-[address] [facility] Comment on above: Order Comment: Speci men Type: BLOOD SPECIMEN Ordering Facility: [facility] Address: [address] [place] [address] Performed By: #### 3 3762-6, 18087-8, [id number] #### [facility] CLIA [id number] [address] [place] [address] [place] Bilirubin [Mass/Vol] 0.3 mg/dL Normal 0.2-1.3 [facility] Comment on above: Order Comment: Speci men Type: BLOOD SPECIMEN Ordering Facility: [facility] Address: [address] [place] [address] Performed By: #### 3 3762-6, 74049-4, [id number] #### [facility] CLIA [id number] [address] [place] [address] [place] Calcium [Mass/Vol] 9.5 mg/dL Normal 8.5-10.[address] [facility] Comment on above: Order Comment: Speci men Type: BLOOD SPECIMEN Ordering Facility: [facility] Address: [address] [place] [address] Performed By: #### 3 3762-6, 76217-1, [id number] #### [facility] CLIA [id number] [address] [place] [address] [place] Chloride [Moles/Vol] 102 mmol/L Normal 97-105 [facility] Comment on above: Order Comment: Speci men Type: BLOOD SPECIMEN Ordering Facility: [facility] Address: [address] [place] [address] Performed By: #### 3 3762-6, , [id number] #### [facility] CLIA [id number] [address] [place] [address] [place] CO2 [Moles/Vol] 29 mmol/L Normal 22-[address] [facility] Comment on above: Order Comment: Speci men Type: BLOOD SPECIMEN Ordering Facility: [facility] Address: [address] [place] [address] Performed By: #### 3 3762-6, 18198-7, [id number] #### [facility] CLIA [id number] [address] [place] [address] [place] Creatinine [Mass/Vol] 0.83 mg/dL Normal 0.73-1.22 [facility] Comment on above: Order Comment: Speci men Type: BLOOD SPECIMEN Ordering Facility: [facility] Address: [address] [place] [address] Performed By: #### 3 3762-6, 48360-2, [id number] #### [facility] CLIA [id number] [address] Creatinine and Glomerular filtration rate.predicted panel (S/P/Bld) 117 mL/min/1.73m??? Normal >=[address] [facility] Comment on above: Order Comment: Joie xiao Type: BLOOD SPECIMEN Ordering Facility: [facility] Address: [address] [place] [address] Result Comment: Mar mated Glomerular Filtration Rate [...] actual GFR. Performed By: #### 3 3762-6, 96873-0, [id number] #### [facility] CLIA [id number] [address] [place] Glucose [Mass/Vol] 85 mg/dL Normal 74-[address] [facility] Comment on above: Order Comment: Joie xiao Type: BLOOD SPECIMEN Ordering Facility: [facility] Address: [address] [place] [address] Result Comment: The [place] [employer] (ADA) provides guidance for cutoff [...] Standards of Medical Care in Diabetes 2016, [place] [employer]. Diabetes Care. 2016.39(Suppl 1). Performed By: #### 3 3762-6, 81025-1, [id number] #### [facility] CLIA [id number] [address] [place] [address] [place] Potassium [Moles/Vol] 4.7 mmol/L Normal 3.7-5.1 [facility] Comment on above: Order Comment: Speci men Type: BLOOD SPECIMEN Ordering Facility: [facility] Address: [address] [place] [address] Performed By: #### 3 3762-6, 18339-0, [id number] #### [facility] CLIA [id number] [address] [place] [address] [place] Protein [Mass/Vol] 7.0 g/dL Normal 6.3-8.[address] [facility] Comment on above: Order Comment: Speci men Type: BLOOD SPECIMEN Ordering Facility: [facility] Address: [address] [place] [address] Performed By: #### 3 3762-6, 79584-7, [id number] #### [facility] CLIA [id number] [address] [place] [address] [place] [facility] Sodium [Moles/Vol] 139 mmol/L Normal 136-[address] [facility] Comment on above: Order Comment: Speci men Type: BLOOD SPECIMEN Ordering Facility: [facility] Address: [address] [place] [address] Performed By: #### 3 3762-6, , [id number] #### [facility] CLIA [id number] [address] [place] [address] [place] Urea nitrogen [Mass/Vol] 12 mg/dL Normal 9-[address] [facility] Comment on above: Order Comment: Speci men Type: BLOOD SPECIMEN Ordering Facility: [facility] Address: [address] [place] [address] Performed By: #### 3 3762-6, 56569-7, [id number] #### [facility] CLIA [id number] [address] [place] [address] [place] D dimer FEU PPP-mCncon 10-17 Fibrin D-dimer FEU (PPP) [Mass/Vol] <190 Normal <[address] [facility] Comment on above: Order Comment: Speci men Type: BLOOD SPECIMEN Ordering Facility: [facility] Address: [address] [place] [address] Performed By: #### 4 8065-7 #### [facility] CLIA [id number] [address] [place] [address] [place] ECG COMPLETEon 10-18-2023 ECG COMPLETE Ventricular Rate : 9 2 BPM Atrial Rate : 92 BPM P-R Interval : 118 ms QRS Duration : 86 ms Q-T Interval : 328 ms QTC Calculation(Bazett) : 405 ms Calculated P [place] : 80 degrees Calculated R [place] : 59 degrees Calculated T [place] : 58 degrees NORMAL SINUS RHYTHM POSSIBLE LEFT ATRIAL ENLARGEMENT BORDERLINE ECG no stemi Confirmed by MD ZAMARRIPA STEVEN ([id number]), acquisition editor BETHANY FRANCO ([id number]) on 10/18/2023 3:37:46 PM NAME : FAUSTINO UNGER PID : [id number] : 1990 Gender : Male Race : ORD : [id number] Procedure Date : Oct 18 2023 12:14:16 Edit Date : Oct 18 2023 15:37:47 Diagnosis: NORMAL SINUS RHYTHM POSSIBLE LEFT ATRIAL ENLARGEMENT BORDERLINE ECG no stemi Confirmed by MD ZAMARRIPA STEVEN ([id number]), acquisition editor BETHANY FRANCO (1944) on 10/18/2023 3:37:46 PM Test Reason : Chest Pain Location : 1 : ER ED Overread By : MD ZAMARRIPA STEVEN Edited By : BETHANY FRANCO Referred By : , Acquired by : , [facility] ED NOTEon 10-18-2023 ED NOTE HNO ID: [id number] Author: EWA MUNIZ, RN Service: Nursing Author Type: Registered Nurse Type: ED Notes Filed: 10/18/2023 14:09 Note Text: Pt verbalizes understanding of follow up with PCP. Pt stable and ambulatory. IV removed. No further questions at this time. [facility] ED NOTE HNO ID: [id number] Author: EWA LI APRN.RETAIL RESET MERCHANDISER Service: ? Author Type: Clinical Nurse Specialist [...] in 2021, not currently receiving any treatment. [facility] ED PROV NOTEon 10-18-2023 ED PROV NOTE HNO ID: [id number] Author: MARTIN ZAMARRIPA MD Service: Emergency Medicine [...] in t (more content not included)... Normal [facility] HIGH SENSITIVITY TROPONIN T (INITIAL)on 10-18-2023 Troponin T.cardiac High sensitivity method [Mass/Vol] <6 Normal <[address] [facility] Comment on above: Order Comment: Joie xiao Type: BLOOD SPECIMEN Ordering Facility: [facility] Address: [address] [place] [place] [address] Result Comment: When assessing risk for acute [...] day MACE. Performed By: #### 3 3762-6, 93758-6, [id number] #### [facility] CLIA [id number] [address] OF [facility] HIGH SENSITIVITY TROPONIN T (SECOND)on 10-18-2023 Troponin T.cardiac High sensitivity method [Mass/Vol] <6 Normal <[address] [place] [address] Comment on above: Order Comment: Joie xiao Type: BLOOD SPECIMEN Ordering Facility: [facility] Address: [address] [place] [address] Result Comment: When assessing risk for acute [...] 30 day MACE. Performed By: #### L [id number] #### [facility] CLIA [id number] [address] [place] [address] [facility] NT-proBNP [facility] Natriuretic peptide.B prohormone N-Terminal [Mass/Vol] <36 Normal <[address] [facility] Comment on above: Order Comment: Speci men Type: BLOOD SPECIMEN Ordering Facility: [facility] Address: [address] [place] [address] Performed By: #### 3 3762-6, 56433-5, [id number] #### [facility] CLIA [id number] [address] [place] [address] [facility] [place] XR CHEST 1V FRONTAL PORTon [...] Normal cardiomediastinal silhouette. IMPRESSION: No acute process Hoop Machine Operator: PSCB Transcribe Date/Time: Oct 18 2023 1:10P Dictated by : ADAMA PALMA MD This examination was interpreted and the report reviewed and electronically signed by: ADAMA PALMA MD on Oct 18 2023 1:11PM EST [id number] Normal [facility] ED NOTEon 08-31-2023 ED NOTE HNO ID: [id number] Author: BETHANY ALEMAN RN Service: ? Author Type: Registered Nurse Type: ED Notes Filed: 08/31/2023 23:29 Note Text: Pt c/o redness.pain, swelling and drainage from right ac previous IV site. Normal [facility] ED PROV NOTEon 08-31-2023 ED PROV NOTE HNO ID: [id number] Author: STACY ALVAREZ MD Service: Emergency Medicine [...] MD Lamont Valdez PETER 09/01/23 0000 Normal [facility] No Panel Informationon 01-28 [facility] MRI FOOT/TOES WO/W IVCON RTo n 08-01-2022 [facility] XR Toes - right 3 Viewson IMPRESSION: Soft tissue calcifications adjacent to the first interphalangeal joint. Hoop Machine Operator: MIRIAN Transcribe Date/Time: Jun 19 2022 2:10P Dictated by : TIMOTHY BECKHAM MD This examination was interpreted and the report reviewed and electronically signed by: TIMOTHY BECKHAM MD on Jun 19 2022 2:11PM [facility] DIVISION OF RADIOLOGY * * *Final Report* [...] interphalangeal joint. DIVISION OF RADIOLOGY Provider, Mansoor [facility] - 06/19/2022 * * *Final Report* * [...] calcifications adjacent to the first interphalangeal joint. Hoop Machine Operator: PSCB Transcribe Date/Time: Jun 19 2022 2:10P Dictated by : TIMOTHY BECKHAM MD This examination was interpreted and the report reviewed and electronically signed by: TIMOTHY BECKHAM MD on Jun 19 2022 2:11PM EST [facility] Radiology Study observation (narrative) [facility] XR Toes - right 3 ViewsOrder ed By: [facility] Provider on 06-19-2022 [facility] Vital Signs Date Time Vital Sign Value Performing Clinician Facility 03-23-2024 11:39-0400 Body height 172.7 cm Mariza Hayes APRN.SUPERINTENDENT WAREHOUSE Work Phone: [facility] 03-23-2024 11:39-0400 Body mass index (BMI) [Ratio] 23.63 kg/m2 Mariza Abigail BANKRUPTCY LAW SPECIALIST.SUPERINTENDENT WAREHOUSE Work Phone: [facility] 03-23-2024 11:39-0400 Body temperature 99.1 [degF] Mariza Abigail [employer]RUPT[employer] SPECIALIST.SUPERINTENDENT [employer]HOUSE Work Phone: [facility] 03-23-2024 11:39-0400 Body weight 70.49 kg Mariza Abigail [employer] SPECIALIST.SUPERINTENDENT W[employer]HOUSE Work Phone: [facility] 03-23-2024 11:39-0400 Diastolic blood pressure 84 mm[Hg] Mariza Abigail [employer]RUPT[employer] SPECIALIST.SUPERINTENDENT W[employer]HOUSE Work Phone: [facility] 03-23-2024 11:39-0400 Heart rate 95 /min Mariza Abigail [employer] SPECIALIST.SUPERINTENDENT [employer]HOUSE Work Phone: [facility] 03-23-2024 11:39-0400 SaO2% (BldA) [Mass fraction] 100 % Mariza Abigail [employer] SPECIALIST.SUPERINTENDENT W[employer]HOUSE Work Phone: [facility] 03-23-2024 11:39-0400 Systolic blood pressure 130 mm[Hg] Mariza Abigail [employer]RUPT[employer] LAW SPECIALIST.SUPERINTENDENT W[employer]HOUSE Work Phone: [facility] 03-15-2024 12:48-0400 Body height 173.4 cm Phuc Misai DO Work Phone: [facility] 03-15-2024 12:48-0400 Body mass index (BMI) [Ratio] 23.4 kg/m2 Phuc Masci DO Work Phone: [facility] 03-15-2024 12:48-0400 Body temperature 98.91 [degF] Phuc Masci DO Work Phone: [facility] 03-15-2024 12:48-0400 Body weight 70.31 kg Phuc Masci DO Work Phone: [facility] 03-15-2024 12:48-0400 Diastolic blood pressure 89 mm[Hg] Phuc Masci DO Work Phone: [facility] 03-15-2024 12:48-0400 Heart rate 86 /min Phuc Kumar DO Work Phone: [facility] 03-15-2024 12:48-0400 SaO2% (BldA) [Mass fraction] 99 % Phuc Kumar DO Work Phone: [facility] 03-15-2024 12:48-0400 Systolic blood pressure 149 mm[Hg] Phuc Bynumi DO Work Phone: [facility] 11-13-2023 13:30-0400 Diastolic blood pressure 76 mm[Hg] DO Tommy Keister Work Phone: [facility] 11-13-2023 13:30-0400 Heart rate 71 /min DO Tommy Keister Work Phone: [facility] 11-13-2023 13:30-0400 Respiratory rate 18 /min DO Tommy Keister Work Phone: [facility] 11-13-2023 13:30-0400 SaO2% (BldA) [Mass fraction] 99 % DO Tommy Keister Work Phone: [facility] 11-13-2023 13:30-0400 Systolic blood pressure 114 mm[Hg] DO Tommy Keister Work Phone: [facility] 11-13-2023 10:08-0400 Body height 172.72 cm DO Tommy Keister Work Phone: [facility] 11-13-2023 10:08-0400 Body temperature 97.8 [degF] DO Tommy Keister Work Phone: [facility] 11-13-2023 10:08-0400 Body weight 66.5 kg DO Tommy Keister Work Phone: [facility] Encounters Encounter Date Encounter Type Care Provider Facility Start: 05-13-2024 End: 05-13-2024 ambulatory NONE PHYSICIAN Facility:A Start: 05-13-2024 End: 05-13-2024 Patient encounter procedure PHY WO ID REFERRING [facility] Start: 04-16-2024 End: 04-20-2024 Telephone encounter Phuc Kumar DO Work Phone: Hematology/Oncology Comment on above: Results Start: 04-01-2024 End: 04-01-2024 ambulatory HUMBERTO BUSTILLO Facility:[facility] Start: 04-01-2024 End: 04-01-2024 Subsequent hospital visit by physician Bone Density [facility] Work Phone: Radiology Comment on above: Bony sclerosis [Q78. 2] Start: 03-31-2024 End: 03-31-2024 Admission to same day surgery center Mariza Hayes APRN.CNP Work Phone: General Surgery Comment on above: CT scan Start: 03-31-2024 End: 03-31-2024 E-mail encounter from caregiver Mariza Hayes APRN.CNP Work Phone: General Surgery Start: 03-30-2024 End: 03-30-2024 ambulatory MARIZA HAYES Facility:[facility] Start: 03-30-2024 End: 03-30-2024 Subsequent hospital visit by physician [facility] ([facility]) Work Phone: Cat Scan Comment on above: Diarrhea, unspecifie d type [R19.7] Start: 03-23-2024 End: 03-24-2024 Telephone encounter Mariza Hayes APRN.CNP Work Phone: General Surgery Comment on above: Request Outside [facility] Records Start: 03-23-2024 End: 03-23-2024 [facility] Start: 03-23-2024 End: 03-23-2024 Patient encounter procedure Mariza Hayes APRN.SUPERINTENDENT WAREHOUSE Work Phone: General Surgery Comment on above: Encounter for screen ing for malignant neoplasm of colon (Primary Dx); History of colonic polyps; Dysphagia, unspecified type; Heartburn; Diarrhea, unspecified type; Bony sclerosis; Osteopenia of other site; Testicular hypofunction Start: 03-18-2024 End: 03-19-2024 Telephone encounter Puhc Kumar DO Work Phone: Hematology/Oncology Comment on above: Results Start: 03-15-2024 End: 03-15-2024 Subsequent hospital visit by physician Mayte [facility] Jocelyn Hendrix Work Phone: Radiology Comment on [...] Start: 02-26-2024 Follow-up encounter Dawit Orozco ams, APRN.SUPERINTENDENT WAREHOUSE Work Phone: [facility] [...] Start: 02-26-2024 End: 02-26-2024 ambulatory DAWIT ROJAS Facility:[facility] Start: 02-17-2024 End: 05-06-2024 Telephone encounter Kasia Alaniz BANKRUPTCY LAW SPECIALIST.SUPERINTENDENT WAREHOUSE Work Phone: [facility] Comment on above: Actionable Findings Follow Up Start: 02-16-2024 E-mail encounter fro m caregiver Alanis DANIEL-C Work Phone: [facility] Start: 02-16-2024 Follow-up encounter Alanis Tyson epperson PA-C Work Phone: [facility] Comment on above: actionable finding f ollow up Start: 01-04-2024 End: 01-05-2024 Emergency department patient visit JOHN Degroot [facility] Start: 12-22-2023 Emergency department patient visit Facility:[id number] Start: 11-13-2023 End: 11-13-2023 Emergency department patient visit Tommy Swanson Facility:[facility] Start: 11-13-2023 End: 11-13-2023 Emergency department patient visit DO Tommy Swanson Work Phone: [facility] Work Phone: Start: 10-18-2023 Emergency department patient visit Facility:[facility] Start: 08-31-2023 End: 09-01-2023 Emergency department patient visit STACY ALVAREZ Facility:[facility] Start: 04-18-2023 ambulatory PATRICIA vitale Start: 04-09-2023 [...] 01-28-2023 Subsequent hospital visit by physician Xr [facility] Jocelyn Simeon Work Phone: Radiology Comment on above: Pain of toe of right foot [M79.674] Start: 01-28-2023 End: 01-28-2023 Patient encounter procedure Biju Sorto Work Phone: Podiatry Comment on above: Pain of toe of right foot (Primary Dx); Soft tissue mass; Cellulitis and abscess of toe of right foot Start: 08-01-2022 End: 08-01-2022 Subsequent hospital visit by physician Mri Radio [facility] (I-Stat/1.5t) Work Phone: Radiology Comment on above: Mass of right foot [ R22.41] Start: 07-25-2022 End: 07-25-2022 Patient encounter procedure Biju Sorto Work Phone: Podiatry Comment on above: Soft tissue mass (Pr imary Dx); Pain of toe of right foot; Diminished pulses in lower extremity; Mass of right foot Start: 06-24-2022 ambulatory Pcp ([facility]) [facility] Start: 06-19-2022 End: 06-19-2022 Subsequent hospital visit by physician Xr [facility] Work Phone: Radiology Comment on above: Pain [...] Comment: URIN ALYSIS Performed By: #### 2 [id number] #### [facility],[address] [facility] [id number] Start: 11-13-2023 Computed tomography of abdomen and pelvis with contrast DO Tommy Swanson Work Phone: Start: 11-13-2023 CT angiography of thorax DO Tommy Swanson Work Phone: Start: 01-28-2023 Radex toe minimum 2 views Biju Sorto Work Phone: Start: 08-01-2022 Mri lower extrem oth /thn jt w/o & w/contr matr Biju Hudsonjanna Work Phone: Start: 06-19-2022 Radex toe minimum 2 views Aarti Osorio BANKRUPTCY LAW SPECIALIST.SUPERINTENDENT WAREHOUSE Work Phone: Start: 12-08-2019 Lipid 1996 panel - S miles or Plasma Alanis Cuba PAChristophe Work Phone: Plan of Treatment Date Care Activity Detail Author Start: 08-01-2033 Urine microalbumin profile DTaP,Tdap,Td Vaccine (4 - Td or Tdap) [facility] Start: 12-07-2024 Lipid panel Lipid Screening [facility] Start: 07-02-2024 End: 07-02-20[address] [facility] Endoscopy Comment on above: colon/egd Start: 06-28-2024 Urine microalbumin profile DTaP,Tdap,Td Vaccine (2 - Td or Tdap) [facility] Start: 06-07-2024 End: 06-07-2024 Patient encounter procedure 06/07/2024 3:00 PM EST Office Visit Endocrinology [address] [place] [address] Melina Caballero MD [address] [place] [address] Osteopenia of lumbar spine [M85.88] Endocrinology Comment on above: Osteopenia of lumbar spine [M85.88] Start: 04-01-2024 End: 04-01-2024 Patient encounter procedure 04/01/2024 10:05 AM EDT Appointment Radiology [address] [place] [id number] Bony sclerosis [Q78.2]; Osteopenia of other site [M85.88]; Testicular hypofunction [E29.1] Radiology Comment on above: Bony sclerosis [Q78. 2]; Osteopenia of other site [M85.88]; Testicular hypofunction [E29.1] Start: 03-30-2024 End: 03-30-2024 Patient encounter procedure Cat Scan Comment on above: Diarrhea, unspecifie d type [R19.7] Start: 03-23-2024 End: 03-23-2024 Patient encounter procedure 03/23/2024 11:30 AM EDT Office Visit General Surgery [address], [place] [address] Mariza Hayes APRN.SUPERINTENDENT WAREHOUSE [address], [place] [id number] colonoscopy consult General Surgery Comment on above: colonoscopy consult Start: 03-21-2024 Covid-19 Vaccine ( season) Covid-19 Vaccine ( season) [facility] Start: 03-21-2024 Covid-19 Vaccine ( season) Covid-19 Vaccine ( season) [facility] Start: 03-21-2024 Influenza vaccination Influenza Vacc ine (#1) [facility] Start: 03-17-2024 End: 03-17-2024 Patient encounter procedure 03/17/2024 3:00 PM EDT Office Visit General Surgery [address], [place] [address] Mariza Hayes APRN.SUPERINTENDENT WAREHOUSE [address] [place], [place] [id number] colonoscopy consult General Surgery Comment on above: colonoscopy consult Start: 03-15-2024 End: 06-14-2024 MONOCLONAL PROTEIN, SERUM (BLOOD) [facility] Comment on above: Expected: 03/15/2024 , Expires: 06/14/2024 Start: 03-15-2024 End: 06-14-2024 Parathyrin.intact [Mass/volume] in Serum or Plasma [facility] Comment on above: Expected: 03/15/2024 , Expires: 06/14/2024 Start: 03-15-2024 End: 06-14-2024 PROTEIN ELECTROPHORESIS SERUM W/INTERP [facility] Comment on above: Expected: 03/15/2024 , Expires: 06/14/2024 Start: 03-15-2024 End: 06-14-2024 Testosterone [Mass/volume] in Serum or Plasma [facility] Comment on above: Expected: 03/15/2024 , Expires: 06/14/2024 Start: 03-15-2024 End: 06-14-2024 VASC ENDO GROWTH FACTOR [facility] Comment on above: Expected: 03/15/2024 , Expires: 06/14/2024 Start: 03-15-2024 End: 03-15-2024 ambulatory 03/15/2024 1:30 PM EDT Visit (SP) Office Hematology/Oncology [address], [place] [id number] Phuc Kumar, DO [address] [place], [place] [phone] PLANT OPERATIONS COORDINATOR/OSTEOPENIA,BONY SCLEROSIS/REF.DAWIT ROJAS CNP* Hematology/Oncology Comment on above: PLANT OPERATIONS COORDINATOR/OSTEOPENIA,BONY S CLEROSIS/REF.DAWIT ROJAS CNP* Start: 03-21-2023 Covid-19 Vaccine ( season) Covid-19 Vaccine ( season) [facility] Start: 03-21-2023 Influenza vaccination [facility] Start: 07-21-2022 [facility] Start: 03-21-2022 Influenza vaccination INFLUENZA (#1) [facility] Start: 07-21-2021 DEPRESSION ASSESSMENT DEPRESSION ASS ESSMENT [facility] Start: 03-21-2021 Influenza vaccination INFLUENZ A (Season Ended) [facility] Start: 2007 Hepatitis B Vaccine (1 of 3 - 19+ 3-dose series) Hepatitis B Vaccine (1 of 3 - 19+ 3-dose series) [facility] Start: 2007 Urine microalbumin profile [facility] Start: 2006 Anxiety Screening Anxiety Screening [facility] Start: 2006 Depression Screening Depression Scre ening [facility] Start: 2006 HEPATITIS C SCREENING HEPATITIS C SC CARLINE [facility] Start: 2006 HIV SCREENING HIV SCREENING [facility] Start: 2000 Adult depression screening assessment DEPRESSION SCREENING [facility] Start: 1994 PNEUMOCOCCAL (1 - PCV) PNEUMOCOCCAL (1 - PCV) [facility] Start: 1994 Pneumococcal vaccination [facility] Start: 02-21-1989 COVID-19 VACCINE (#1) COVID-19 VACCI NE (#1) [facility] Start: 1988 HEPATITIS B (1 of 3 - 3-dose series) HEPATITIS B (1 of 3 - 3-dose series) [facility] Start: 1988 Hepatitis B Vaccine (1 of 3 - 3-dose series) Hepatitis B Vaccine (1 of 3 - 3-dose series) [facility] End: 04-14-2025 BD DXA TRABECULAR BONE SCORE (TBS) BD DXA TRABECULAR BONE SCORE (TBS) Radiology Routine Bony sclerosis Osteopenia of other site Testicular hypofunction 1 Occurrences starting 03/15/2024 until 04/14/2025 [facility] Comment on above: 1 Occurrences starti ng 03/15/2024 until 04/14/2025 BD DXA TRABECULAR ABI NE SCORE (TBS) BD DXA TRABECULAR BONE SCORE (TBS) Radiology Routine Bony sclerosis Osteopenia of other site Testicular hypofunction 04/01/2024 10:25 AM EDT [facility] End: 04-22-2025 CT Abdomen and Pelvis WO contrast CT ABD/PEL WO IVCON Radiology STAT Diarrhea, unspecified type 1 Occurrences starting 03/23/2024 until 04/22/2025 [facility] Comment on above: 1 Occurrences starti ng 03/23/2024 until 04/22/2025 End: 04-14-2025 DXA Skeletal system.axial Views for bone density DXA-AXIAL SKELETON Radiology Routine Bony sclerosis Osteopenia of other site Testicular hypofunction 1 Occurrences starting 03/15/2024 until 04/14/2025 [facility] Comment on above: 1 Occurrences starti ng 03/15/2024 until 04/14/2025 DXA Skeletal system.axial Views for bone density DXA-AXIAL SKELETON Radiology Routine Bony sclerosis Osteopenia of other site Testicular hypofunction 04/01/2024 10:25 AM EDT [facility] Work Phone: End: 03-23-2025 EGD DIAGNOSTIC EGD DIAGNOSTIC Endoscopy Routine Dysphagia, unspecified type Heartburn 1 Occurrences starting 03/23/2024 until 03/23/2025 [facility] Comment on above: 1 Occurrences starti ng 03/23/2024 until 03/23/2025 End: 2023 Mri lower extrem oth/thn jt w/o & w/contr matr MRI FOOT/TOES WO/W IVCON RT Radiology Routine Mass of right foot 1 Occurrences starting 07/25/2022 until 2023 [facility] Work Phone: Comment on above: 1 Occurrences starti ng 07/25/2022 until 2023 Patient Education Chest Pain, Adult ED [facility] Work Phone: Patient referral [facility] Work Phone: End: 07-25-2023 PVR ANK PRESS [facility]AN [facility] PVR ANK [facility]ESS [facility] Vascular Lab Routine Soft tissue mass Diminished pulses in lower extremity Mass of right foot 1 Occurrences starting 07/25/2022 until 07/25/2023 [facility] Work Phone: Comment on above: 1 Occurrences starti ng 07/25/2022 until 07/25/2023 End: 03-23-2025 Screening colonoscopy COLONOSCOPY SCREENING Endoscopy Routine History of colonic polyps Encounter for screening for malignant neoplasm of colon 1 Occurrences starting 03/23/2024 until 03/23/2025 [facility] Work Phone: Comment on above: 1 Occurrences starti ng 03/23/2024 until 03/23/2025 End: 04-14-2025 XR Bones Complete Survey Views XR BONE SURVEY ROUTINE Radiology Routine Bony sclerosis 1 Occurrences starting 03/15/2024 until 04/14/2025 [facility] Work Phone: Comment on above: 1 Occurrences starti ng 03/15/2024 until 04/14/2025 XR Bones Complete Jeter rvey Views XR BONE SURVEY ROUTINE Radiology Routine Bony sclerosis 03/15/2024 3:22 PM EDT [facility] Payers Date Payer Category Payer Unknown [id number] 2023 Self-pay 2022 Unknown [id number] 2021 Medicaid [id number] 2014 Private Health Insurance [employer] PPO [id number] 2014-Present PPO [id number] 1988 Unknown [id number] 1988 Unknown [id number] 1988 Unknown [id number] Unknown [id number] Social History Date Type Detail Facility Start: 06-19-2015 End: 12-22-2023 Tobacco smoking status NHIS Current every day smoker [facility] Start: 03-15-2004 History of tobacco use Cigarette Smo ker [facility] Start: 06-19-2015 End: 02-27-2023 Cigarettes smoked current (pack per day) - Reported [facility] Start: 06-19-2015 End: 12-22-2023 Tobacco use and exposure Never used [facility] Start: 06-19-2015 End: 06-19-2022 Alcohol intake Not Asked [facility] Start: 1988 Sex Assigned At Not on file [facility] Start: 06-09-2022 End: 06-19-2022 Exposure to SARS-CoV-2 (event) Not sure [facility] Work Phone: Start: 01-05-2023 Alcohol intake Current drinke r of alcohol (finding) [facility] Start: 07-25-2022 Alcohol Comment rarely [facility] Start: 01-28-2023 End: 12-22-2023 Alcohol intake Ex-drinker (finding) [facility] Start: 01-28-2023 End: 02-27-2023 Tobacco use panel [facility] National Score (1-10 0), lower number is lower risk 70 [facility] Start: 1988 Sex Assigned At Male [facility] Start: 01-28-2023 Gender identity Identifies as male gender (finding) [facility] Start: 04-10-2022 Sexual orientation Homosexual (findi ng) [facility] Start: 11-13-2023 Tobacco smoking stat us OHIS Smoker (finding) [facility] Tobacco smoking status No Smokin g Status Entered [facility] Clinical Notes 07-03-2015 to 04-20-2024 Telephone Encounter - Elaine Barreto - 04/20/2024 3:06 PM EDTTelephone Encounter - Elaine Barreto - 04/20/2024 3:06 PM EDTTelephone Encounter - Samantha Jacobo LPN - 04/20/2024 9:45 AM EDT Note Date & Type Note Facility 04-20-2024 Telephone encounter Note Spoke with patient and scheduled Endocrinology referral. Elaine Barreto [facility] 04-20-2024 Miscellaneous Notes Spoke with patient and scheduled Endocrinology referral. Elaine Barreto Pt aware, please assist with endocrin ref. Samantha Jacobo LPN Left VM, will send DN2K message. Advised pt to call office or respond in CYP Designt if he had any questions. Will need [...] Phuc Kumar DO documented in this encounter [facility] 04-20-2024 Telephone encounter Note Pt aware, please assist with endocrin ref. Samantha Jacobo LPN [facility] 04-19-2024 Telephone encounter Note Left VM, will send DN2K message. Advised pt to call office or respond in Covocativehart if he had any questions. Will need scheduled with endocrin. Samantha Jacobo LPN [facility] 04-16-2024 Telephone encounter Note Can let him know the laboratory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 (Urgent) - Closed Specialty Diagnoses / Procedures Referred By Roderick t Referred To Contact XR IMAGING Diagnoses Pain of toe of right foot Procedures XR TOE AP/LAT/OBL RIGHT RADEX TOE MINIMUM 2 VIEWS Aarti Osorio APRN.SUPERINTENDENT WAREHOUSE [address] [place] [address] [place] [address] Referral ID Status Reason Start Date Expiration Date V isits Requested Visits Authorized [id number] Closed Auto-Generate d Referral 06/19/2022 07/19/2023 1 1 [place] for visit Narrative* Diagnostic Procedure Only (Routine) - Closed Specialty Diagnoses / Procedures Referred By Contac t Referred To Contact XR IMAGING Diagnoses Pain of toe of right foot Soft tissue mass Procedures XR TOE AP/LAT/OBL RIGHT RADEX TOE MINIMUM 2 VIEWS Beccajanna Biju [address] [place] [address] [place] [address] Referral ID Status Reason Start Date Expiration Date V isits Requested Visits Authorized [id number] Closed Auto-Generate d Referral 01/28/2023 02/27/2024 1 1 [place] for visit Narrative* Diagnostic Procedure Only (Routine) - Closed Specialty Diagnoses / Procedures Referred By Contac t Referred To Contact XR IMAGING Diagnoses Bony sclerosis Procedures XR BONE SURVEY ROUTINE RADIOLOGIC EXAMINATION OSSEOUS SURVEY COMPL Phuc Kumar, DO [address] [place] [address] [place] [address] Referral ID Status Reason Start Date Expiration Date V isits Requested Visits Authorized [id number] Closed Auto-Generate d Referral 03/15/2024 04/14/2025 1 1 [place] for visit Narrative* Diagnostic Procedure Only (Routine) - Closed Specialty Diagnoses / Procedures Referred By Contac t Referred To Contact XR IMAGING Diagnoses Bony sclerosis Osteopenia of other site Testicular hypofunction Procedures DXA-AXIAL SKELETON Phuc Kumar, DO [address] [place] [address] [place] [address] Referral ID Status Reason Start Date Expiration Date V isits Requested Visits Authorized [id number] Closed Auto-Generate d Referral 03/15/2024 04/14/2025 1 1 [place] for visit Narrative* Diagnostic Procedure Only (Urgent) - Closed Specialty Diagnoses / Procedures Referred By Contac t Referred To Contact XR IMAGING Diagnoses Pain of toe of right foot Procedures XR TOE AP/LAT/OBL RIGHT RADEX TOE MINIMUM 2 VIEWS Aarti Osorio APRN.[employer] [address] [place] [address] [place] [address] Referral ID Status Reason Start Date Expiration Date V isits Requested Visits Authorized [id number] Closed Auto-Generate d Referral 06/19/2022 07/19/2023 1 1 [facility] Reason for Referral Specialty Diagnoses / Procedures Referred By Contac t Referred To Contact MR IMAGING Diagnoses Mass of right foot Procedures MRI FOOT/TOES WO/W IVCON RT MRI LOWER EXTREM OTH/THN JT W/O & W/CONTR Biju [address] [place] [address] Mr Imaging Referral ID Status Reason Start Date Expiration Date Visits Requested Visits Authorized [id number] Authorized Auto-Generat ed Referral 07/25/2022 2022 1 1 Specialty Diagnoses / Procedures Referred By Contac t Referred To Contact [facility] Diagnoses Soft tissue mass Diminished pulses in lower extremity Mass of right foot Procedures PVR ANK PRESS NOMAN VAS LAB NON-INVAS PHYSIOLOGIC STD EXTREMITY ART 2 LEVEL Biju [address] [place] [address] [facility] [place] [address] [place] [address] Referral ID Status Reason Start Date Expiration Date Visits Requested Visits Authorized [id number] Authorized Auto-Generat ed Referral 07/25/2022 07/25/2023 1 1 Specialty Diagnoses / Procedures Referred By Contac t Referred To Contact MR IMAGING Diagnoses Mass of right foot Procedures MRI FOOT/TOES WO/W IVCON RT MRI LOWER EXTREM OTH/THN JT W/O & W/CONTR Biju [address] [place] [address] Mr Imaging [facility] Referral ID Status Reason Start Date Expiration Date V isits Requested Visits Authorized [id number] Closed Auto-Generate d Referral 07/25/2022 2022 1 1 Specialty Diagnoses / Procedures Referred By Contac t Referred To Contact Diagnoses Does not have primary care provider Procedures ESTABLISH WITH PRIMARY CARE NEW PATIENT OFFICE/OUTPATIENT [facility] 60 MINUTES Dawit Rojas APRN.[employer] [address] [place] [id number] Referral ID Status Reason Start Date Expiration Date Visits Requested Visits Authorized [id number] Authorized PCP Requested Referral 02/26/2024 02/25/2025 1 1 Specialty Diagnoses / Procedures Referred By Contac t Referred To Contact Diagnoses Osteopenia of other site Bony sclerosis Procedures CONSULT TO HEMATOLOGY/ONCOLOGY OFFICE/OUTPATIENT [facility] 60 MINUTES Dawit Rojas APRN.[employer] [address] [place] [address] Referral ID Status Reason Start Date Expiration Date Visits Requested Visits Authorized [id number] Authorized PCP Requested Referral 02/26/2024 02/24/2025 1 1 Specialty Diagnoses / Procedures Referred By Contac t Referred To Contact Nephrology Diagnoses Polycystic kidney disease Procedures CONSULT TO NEPHROLOGY OFFICE/OUTPATIENT [facility] 60 MINUTES Phuc Kumar, DO [address] [place] [address] Referral ID Status Reason Start Date Expiration Date Visits Requested Visits Authorized [id number] Authorized PCP Requested Referral 03/15/2024 03/15/2025 1 1 Specialty Diagnoses / Procedures Referred By Contac t Referred To Contact General Surgery Diagnoses Bony sclerosis Osteopenia of other site Testicular hypofunction Procedures CONSULT TO GENERAL SURGERY OFFICE/OUTPATIENT [facility] 60 MINUTES Phuc Kumar, DO [address] [place] [address] Referral ID Status Reason Start Date Expiration Date Visits Requested Visits Authorized [id number] Authorized PCP Requested Referral 03/15/2024 03/15/2025 1 1 Specialty Diagnoses / Procedures Referred By Contac t Referred To Contact XR IMAGING Diagnoses Bony sclerosis Osteopenia of other site Testicular hypofunction Procedures DXA-AXIAL SKELETON Phuc Kumar, DO [address] [place] [address] [place] [address] Referral ID Status Reason Start Date Expiration Date Visits Requested Visits Authorized [id number] Authorized Auto-Generat ed Referral 03/15/2024 04/14/2025 1 1 Specialty Diagnoses / Procedures Referred By Contac t Referred To Contact XR IMAGING Diagnoses Bony sclerosis Procedures XR BONE SURVEY ROUTINE RADIOLOGIC EXAMINATION OSSEOUS SURVEY COMPL Phuc Kumar, DO [address] [place] [address] [place] [address] Referral ID Status Reason Start Date Expiration Date V isits Requested Visits Authorized [id number] Closed Auto-Generate d Referral 03/15/2024 04/14/2025 1 1 Specialty Diagnoses / Procedures Referred By Contac t Referred To Contact Nephrology Diagnoses Kidney cysts Procedures CONSULT TO NEPHROLOGY OFFICE/OUTPATIENT [facility] 60 MINUTES Mariza Hayes, BANKRUPTCY LAW SPECIALIST.[employer] [address] [place] [address] Referral ID Status Reason Start Date Expiration Date Visits Requested Visits Authorized [id number] Authorized PCP Requested Referral 03/31/2024 03/31/2025 1 1 Specialty Diagnoses / Procedures Referred By Contac t Referred To Contact CT IMAGING Diagnoses Diarrhea, unspecified type Procedures CT ABD/PEL WO IVCON CT ABD & PELVIS W/O CONTRAST Mariza Hayes, WILLIAM.[employer] [address] [place] [address] [place] [address] Referral ID Status Reason Start Date Expiration Date V isits Requested Visits Authorized [id number] Closed Auto-Generat ed Referral Patient Cleared - Admin/Chairm an/Director advise to proceed or did not respond 03/23/2024 04/22/2024 1 1 Specialty Diagnoses / Procedures Referred By Contac t Referred To Contact Endocrinology Diagnoses Osteopenia of lumbar spine Procedures CONSULT TO ENDOCRINOLOGY OFFICE/OUTPATIENT [facility] 60 MINUTES Phuc Kumar, DO [address] [place] [address] Referral ID Status Reason Start Date Expiration Date Visits Requested Visits Authorized [id number] Authorized PCP Requested Referral 04/16/2024 04/16/2025 1 [...] or prosecute any alcohol or drug abuse patient.[facility] the event this information is protected by the Federal Confidentiality of Alcohol and Drug Abuse Patient Records regulations: The Federal rules restrict any use of the information to criminally investigate or prosecute any alcohol or drug abuse patient.[facility] the event this information is protected by the Federal Confidentiality of Alcohol and Drug Abuse Patient Records regulations: The Federal rules restrict any use of the information to criminally investigate or prosecute any alcohol or drug abuse patient.[facility] the event this information is protected by the Federal Confidentiality of Alcohol and Drug Abuse Patient Records regulations: The Federal rules restrict any use of the information to criminally investigate or prosecute any alcohol or drug abuse patient.[facility] the event this information is protected by the Federal Confidentiality of Alcohol and Drug Abuse Patient Records regulations: The Federal rules restrict any use of the information to criminally investigate or prosecute any alcohol or drug abuse patient.[facility] the event this information is protected by the Federal Confidentiality of Alcohol and Drug Abuse Patient Records regulations: The Federal rules restrict any use of the information to criminally investigate or prosecute any alcohol or drug abuse patient.[facility] the event this information is protected by the Federal Confidentiality of Alcohol and Drug Abuse Patient Records regulations: The Federal rules restrict any use of the information to criminally investigate or prosecute any alcohol or drug abuse patient.[facility] the event this information is protected by the Federal Confidentiality of Alcohol and Drug Abuse Patient Records regulations: The Federal rules restrict any use of the information to criminally investigate or prosecute any alcohol or drug abuse patient.[facility] the event this information is protected by the Federal Confidentiality of Alcohol and Drug Abuse Patient Records regulations: The Federal rules restrict any use of the information to criminally investigate or prosecute any alcohol or drug abuse patient.[facility] the event this information is protected by the Federal Confidentiality of Alcohol and Drug Abuse Patient Records regulations: The Federal rules restrict any use of the information to criminally investigate or prosecute any alcohol or drug abuse patient.[facility] the event this information is protected by the Federal Confidentiality of Alcohol and Drug Abuse Patient Records regulations: The Federal rules restrict any use of the information to criminally investigate or prosecute any alcohol or drug abuse patient.[facility] the event this information is protected by the Federal Confidentiality of Alcohol and Drug Abuse Patient Records regulations: The Federal rules restrict any use of the information to criminally investigate or prosecute any alcohol or drug abuse patient.[facility] the event this information is protected by the Federal Confidentiality of Alcohol and Drug Abuse Patient Records regulations: The Federal rules restrict any use of the information to criminally investigate or prosecute any alcohol or drug abuse patient.[facility] the event this information is protected by the Federal Confidentiality of Alcohol and Drug Abuse Patient Records regulations: The Federal rules restrict any use of the information to criminally investigate or prosecute any alcohol or drug abuse patient.[facility] the event this information is protected by the Federal Confidentiality of Alcohol and Drug Abuse Patient Records regulations: The Federal rules restrict any use of the information to criminally investigate or prosecute any alcohol or drug abuse patient.[facility] the event this information is protected by the Federal Confidentiality of Alcohol and Drug Abuse Patient Records regulations: The Federal rules restrict any use of the information to criminally investigate or prosecute any alcohol or drug abuse patient.[facility] the event this information is protected by the Federal Confidentiality of Alcohol and Drug Abuse Patient Records regulations: The Federal rules restrict any use of the information to criminally investigate or prosecute any alcohol or drug abuse patient.[facility] the event this information is protected by the Federal Confidentiality of Alcohol and Drug Abuse Patient Records regulations: The Federal rules restrict any use of the information to criminally investigate or prosecute any alcohol or drug abuse patient.[facility] the event this information is protected by the Federal Confidentiality of Alcohol and Drug Abuse Patient Records regulations: The Federal rules restrict any use of the information to criminally investigate or prosecute any alcohol or drug abuse patient.[facility]In the event this information is protected by the Federal Confidentiality of Alcohol and Drug Abuse Patient Records regulations: The Federal rules restrict any use of the information to criminally investigate or prosecute any alcohol or drug abuse patient.[facility]In the event this information is protected by the Federal Confidentiality of Alcohol and Drug Abuse Patient Records regulations: The Federal rules restrict any use of the information to criminally investigate or prosecute any alcohol or drug abuse patient.[facility] ShawIn the event this information is protected by the Federal Confidentiality of Alcohol and Drug Abuse Patient Records regulations: The Federal rules restrict any use of the information to criminally investigate or prosecute any alcohol or drug abuse patient.[facility] ShawIn the event this information is protected by the Federal Confidentiality of Alcohol and Drug Abuse Patient Records regulations: The Federal rules restrict any use of the information to criminally investigate or prosecute any alcohol or drug abuse patient.[facility] ShawIn the event this information is protected by the Federal Confidentiality of Alcohol and Drug Abuse Patient Records regulations: The Federal rules restrict any use of the information to criminally investigate or prosecute any alcohol or drug abuse patient.[facility] ShawIn the event this information is protected by the Federal Confidentiality of Alcohol and Drug Abuse Patient Records regulations: The Federal rules restrict any use of the information to criminally investigate or prosecute any alcohol or drug abuse patient.[facility] ShawIn the event this information is protected by the Federal Confidentiality of Alcohol and Drug Abuse Patient Records regulations: The Federal rules restrict any use of the information to criminally investigate or prosecute any alcohol or drug abuse patient.[facility] ShawIn the event this information is protected by the Federal Confidentiality of Alcohol and Drug Abuse Patient Records regulations: The Federal rules restrict any use of the information to criminally investigate or prosecute any alcohol or drug abuse patient.[facility] Reason for Visit (unrecogniz ed section and content) Reason Onset Date Comments Biopsy Request 06/29/2015 Reason Comments New Pain Swelling Specialty Diagnoses / Procedures Referred By Contac t Referred To Contact Podiatry Diagnoses Pain of toe of right foot Procedures CONSULT TO PODIATRY OFFICE/OUTPATIENT NEW HIGH MDM 60-74 MINUTES Aarti Osorio, BANKRUPTCY LAW SPECIALIST.[employer] [address] [place] [address] Referral ID Status Reason Start Date Expiration Date V isits Requested Visits Authorized [id number] Closed PCP Requested Referral 06/19/2022 06/19/2023 1 1 Reason Comments Orders Reason Comments Patient Update Reason Comments Established Patient Follow Up Pain Swelling Specialty Diagnoses / Procedures Referred By Contac t Referred To Contact MR IMAGING Diagnoses Mass of right foot Procedures MRI FOOT/TOES WO/W IVCON RT MRI LOWER EXTREM OTH/THN JT W/O & W/CONTR MATR Macario Biju [address] [place] [address] [place] [address] Referral ID Status Reason Start Date Expiration Date V isits Requested Visits Authorized [id number] Closed Auto-Generate d Referral 07/25/2022 2022 1 1 Reason Comments Radiology Review Reason Comments New Patient Reason Comments New Patient Evaluation Specialty Diagnoses / Procedures Referred By Contac t Referred To Contact Diagnoses Osteopenia of other site Bony sclerosis Procedures CONSULT TO HEMATOLOGY/ONCOLOGY OFFICE/OUTPATIENT NEW [facility]IGH MDM 60 MINUTES Dawit Rojas, BANKRUPTCY LAW SPECIALIST.[employer]ENT [employer] [address] [place] [address] Referral ID Status Reason Start Date Expiration Date V isits Requested Visits Authorized [id number] Closed PCP Requested Referral 02/26/2024 02/24/2025 1 1 Reason Comments AVS 03/15/24 Reason Comments Results Reason Comments Consult colonoscopy Specialty Diagnoses / Procedures Referred By Contac t Referred To Contact General Surgery Diagnoses Bony sclerosis Osteopenia of other site Testicular hypofunction Procedures CONSULT TO GENERAL SURGERY OFFICE/OUTPATIENT [facility] MDM 60 MINUTES Phuc Kumar DO [address] [place] [address] Referral ID Status Reason Start Date Expiration Date V isits Requested Visits Authorized [id number] Closed PCP Requested Referral 03/15/2024 03/15/2025 1 1 Reason Comments Request Outside Medical Records Reason Comments Radiology CT Specialty Diagnoses / Procedures Referred By Contdaniel t Referred To Contact CT IMAGING Diagnoses Diarrhea, unspecified type Procedures CT ABD/PEL WO IVCON CT ABD & PELVIS W/O CONTRAST Mariza Hayes APRN.[employer] [address] [place] [address] [place] [address] Referral ID Status Reason Start Date Expiration Date V isits Requested Visits Authorized [id number] Closed Auto-Generat ed Referral Patient Cleared - Admin/Chairm an/Director advise to proceed or did not respond 03/23/2024 04/22/2024 1 1 Reason Comments Results Reason Comments Actionable Findings Follow Up Care Teams (unrecognized sec tion and content) Crimper Assembler Relationship Specialty Start Date End Date Pcp, No PCP - General 02/02/22 08/20/22 Crimper Assembler Relationship Specialty Start Date End Date Pcp, No PCP - General 02/02/22 08/20/22 Crimper Assembler Relationship Specialty Start Date End Date Pcp, No, BANKRUPTCY LAW SPECIALIST PCP - General 02/02/22 08/20/22 Team Status: Active Member Role Status Dates PHYSICIAN NO FAMILY Primary Care Provider Active Team Status: Inactive Member Role Status Dates Tommy Swanson DO Emergency Provider Active Start: November 13, 2023 End: November 13, 2023 PHYSICIAN NO FAMILY Primary Care Provider Active Start: November 13, 2023 End: November 13, 2023 Crimper Assembler Relationship Specialty Start Date End Date Humberto Bustillo MD [address] [place] [address] Infectious Diseases 02/26/24 Crimper Assembler Relationship Specialty Start Date End Date Humberto Bustillo MD [address] [place] [address] Infectious Diseases 02/26/24 Crimper Assembler Relationship Specialty Start Date End Date Humberto Bustillo MD [address] [place] [address] Infectious Diseases 02/26/24 Crimper Assembler Relationship Specialty Start Date End Date Humberto Bustillo MD [address] [place] [address] Infectious Diseases 02/26/24 Dawit Rojas APRN.[employer] [address] [place], [place] [id number] Radiology 03/15/24 Crimper Assembler Relationship Specialty Start Date End Date Humberto Bustillo MD [address] [place] [address] Infectious Diseases 02/26/24 Dawit Rojas, IWLLIAM.SUPERINTENDENT [employer]HOUSE [address] [place], [place] [id number] Radiology 03/15/24 Crimper Assembler Relationship Specialty Start Date End Date Humberto Bustillo MD [address] [place] [address] Infectious Diseases 02/26/24 Dawit Rojas, BANKRUPTCY LAW SPECIALIST.[employer] [address] [place] [address] Radiology 03/15/24 Crimper Assembler Relationship Specialty Start Date End Date Humberto Bustillo MD [address] [place] [address] Infectious Diseases 02/26/24 Dawit Rojas APRN.[employer]ENT [employer] [address] [place] [address] Radiology 03/15/24 Crimper Assembler Relationship Specialty Start Date End Date Humberto Bustillo MD [address] [facility] [address] Infectious Diseases 02/26/24 Dawit Rojas APRN.[employer]PER[employer]ENT [employer] [address] [place], [place] [id number] Radiology 03/15/24 Crimper Assembler Relationship Specialty Start Date End Date Humberto Bustillo MD [address] [facility], [place] [id number] PCP - General Infectious Diseases 03/23/24 Humberto Bustillo MD [address] [facility] [address] Infectious Diseases 02/26/24 Dawit Rojas BANKRUPTCY LAW SPECIALIST.SUPERINTENDENT [employer]HOUSE [address] [facility] [place], [place] [id number] Radiology 03/15/24 Crimper Assembler Relationship Specialty Start Date End Date Humberto Bustillo MD [address] [place] [facility] [address] PCP - General Infectious Diseases 03/23/24 Humberto Bustillo MD [address] [facility] [address] Infectious Diseases 02/26/24 Dawit Rojas APRN.SUPERINT[employer]ENT [employer]HOUSE [address] [place], [place] [id number] Radiology 03/15/24 Crimper Assembler Relationship Specialty Start Date End Date Humberto Bustillo MD [address] [place] [address] [place], [place] [id number] PCP - General Infectious Diseases 03/23/24 Humberto Bustillo MD [address] [place] [address] Infectious Diseases 02/26/24 Dawit Rojas, BANKRUPTCY LAW SPECIALIST.SUPERINTENDENT [employer]HOUSE [address] [place] [address] Radiology 03/15/24 Crimper Assembler Relationship Specialty Start Date End Date Humberto Bustillo MD [address] [facility] [address] [place], [place] [id number] PCP - General Infectious Diseases 03/23/24 Humberto Bustillo MD [address] [place] [address] Infectious Diseases 02/26/24 Dawit Rojas, BANKRUPTCY LAW SPECIALIST.SUPERINT[employer]ENT [employer]HOUSE [address] [place] [address] Radiology 03/15/24 Crimper Assembler Relationship Specialty Start Date End Date Pcp, No, BANKRUPTCY LAW SPECIALIST PCP - General 02/02/22 08/20/22 Crimper Assembler Relationship Specialty Start Date End Date Humberto Bustillo MD [address] [place], [place] [id number] PCP - General Infectious Diseases 03/23/24 Humberto Bustillo MD [address] [place] [address] Infectious Diseases 02/26/24 Dawit Rojas, BANKRUPTCY LAW SPECIALIST.SUPERINTENDENT [employer]HOUSE [address] [place] [address] Radiology 03/15/24 Crimper Assembler Relationship Specialty Start Date End Date Humberto Bustillo MD [address] [place] [address] PCP - General Infectious Diseases 03/23/24 Humberto Bustillo MD [address] [place] [address] Infectious Diseases 02/26/24 Dawit Rojas, BANKRUPTCY LAW SPECIALIST.SUPERINTENDENT [employer]HOUSE [address] [facility] [place] [address] Radiology 03/15/24 (unrecognized sect ion and content) No Status Records FoundNo Status Records FoundNo Status Records FoundNo Status Records FoundNo Status Records FoundNo Status Records FoundNo Status Records Found INFORMATION SOURCE (unrecogn ized section and content) DATE CREATED AUTHOR 04/23/2023 [facility] DATE CREATED AUTHOR AUTHOR'S ORGANIZ ATION 10/18/[address] [facility] DATE CREATED AUTHOR AUTHOR'S ORGANIZ ATION 11/23/2023 [facility] DATE CREATED AUTHOR AUTHOR'S ORGANIZ ATION 12/22/2023 [facility] nt DATE CREATED AUTHOR AUTHOR'S ORGANIZ ATION 01/05/2024 [facility] DATE CREATED AUTHOR AUTHOR'S ORGANIZ ATION 05/09/2024 [facility] DATE CREATED AUTHOR AUTHOR'S ORGANIZ ATION 05/15/2024 [facility] Goals (unrecognized section and content) [...] BE BASED ON THE PRIMARY CLINICAL RECORDS. [facility]. provides no warranty or guarantee of the accuracy or completeness of information in this document.
[2024-05-17] MEDS: Ondansetron 4 MG/2 ML Vial IV (23:21)
[2024-05-17] MEDS: Morphine 4 MG/ML Syringe IV (23:21)
[2024-05-17 23:23] VITALS: BP 117/75; PULSE 75; RESP 18; O2SAT 100
[2024-05-17 23:33] LABS: Absolute Lymphocyte Count 1.24 X10^3/uL (0.83-4.51); Absolute Neutrophil Count 10.9 X10^3/uL (2.0-7.7); Basophil# 0.02 X10^3/uL; Basophil% 0.2 % (0-1); Hematocrit 40.7 % (40-54); Hemoglobin 13.7 g/dL (13.0-16.5); Lymphocyte # 1.24 X10^3/ul (0.83-4.51); Lymphocyte % 9.7 % (19-41); Mean Corp Hgb Conc 33.7 g/dL (32-36); Mean Corpuscular Hgb 31.6 pg (27.0-32.0); Mean Platelet Vol. 8.5 fl (6.2-12.0); Monocyte% 4.7 % (0-10); NRBC Flagged by Analyzer 0 % (0-5); Neutrophil # 10.89 X10^3/uL (2.7-7.7); Neutrophil % 84.9 % (47-70); Platelet Count 261 K/mm3 (150-450); RBC Distribution Width CV 13.1 % (11.6-14.6); RBC Distribution Width SD 45.2 fl (35.1-43.9); Red Blood Count 4.33 M/mm3 (4.6-6.2); White Blood Count 12.8 K/mm3 (4.4-11.0)
[2024-05-17 23:49] LABS: ALB/GLOB Ratio 1.1 RATIO (0.9-2.4); AST(SGOT) 13 U/L (15-37); Alanine Aminotransfer ALT/SGPT 29 U/L (16-61); Albumin, Serum 3.6 g/dL (3.2-5.0); Alkaline Phosphatase 80 U/L (45-117); Anion Gap 5 (5-15); BUN 10 mg/dL (7-18); BUN/Creat Ratio 11.5 RATIO (10-20); Calcium,Total 8.9 mg/dL (8.5-10.1); Chloride 108 mmol/L (98-107); Creatinine, Serum 0.87 mg/dL (0.70-1.30); EST Glomerular Filtration Rate 106 mL/min (>60); Est Glom Filt Rate - Afr Amer 128 mL/min (>60); Estimated Creatinine Clearance 114.66 ml/min; Globulin 3.4 g/dL (2.2-4.2); Glucose 137 mg/dL (74-106); Lipase 25 U/L (13-75); Potassium 4.1 mmol/L (3.5-5.1); Sodium Level 139 mmol/L (136-145)
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
[2024-05-18 01:00] VITALS: BP 120/74; PULSE 75; RESP 18; O2SAT 100
[2024-05-18] MEDS: SimETHICONE 80 MG Chewable Tablet PO (01:38)
[2024-05-18] MEDS: Morphine 4 MG/ML Syringe IV (02:13)
[2024-05-18] MEDS: HYDROmorphone 0.5 MG/0.5 ML SYRINGE IV (02:57)
[2024-05-18 02:58] VITALS: BP 142/80; PULSE 79; RESP 18; O2SAT 100
[2024-05-18 03:27] VITALS: BP 138/72; PULSE 79; RESP 18; TEMP 36.9; O2SAT 100
== END 2024-05-18 03:28 | disposition home or self-care (01) ==
PROVIDERS: Emergency Provider Emergency Medicine; PCP Internal Medicine Infectious Disease; Visit Provider Emergency Medicine
DX: Z98.890 Other specified postprocedural states (principal); Z21 Asymptomatic human immunodeficiency virus [HIV] infection status; R04.0 Epistaxis; F41.9 Anxiety disorder, unspecified; I10 Essential (primary) hypertension; Z59.00 Homelessness unspecified; R11.0 Nausea; R33.8 Other retention of urine; R10.13 Epigastric pain; Z85.038 Personal history of other malignant neoplasm of large intestine; K21.9 Gastro-esophageal reflux disease without esophagitis; Z79.899 Other long term (current) drug therapy; F32.A Depression, unspecified; R09.81 Nasal congestion; J34.2 Deviated nasal septum; J34.89 Other specified disorders of nose and nasal sinuses
CPT/HCPCS: 71046; 74177; 80053; 83690; 85025; 88305; 88311; 96374; 96375; 99282; Q9967; A4216; J2405

== ENCOUNTER → 2024-05-17 | Outpatient (CLI) | payer MEDICAID, SELFPAY ==
--- NOTE | 2024-05-17 10:50 | NASAL_PTH ---
PATHOLOGY RESULTS PATIENT: JOHNNY UNGER [facility] U#:[id number] AGE/SX: 33/M ROOM: RE05/17/[address]: Dr. Pete Mcmahan MD : [id number] BED: DIS: 05/17/2024 SPEC #: [id number] RECD: 05/17/24 15:04 STATUS: MAGDALENA ANNA #: [id number] SHONNA: 05/17/24 10:[address]: Pete Mcmahan DEPT: SURGICAL PATHOLOGY RECD BY: Anu Mcgowan ENTERED: 05/18/24 10:03 SP TYPE: NASAL SPEC OTHR DR: Dr. Giuliano Bustillo MD Tissues: Ethmoid sinus, NOS Procedures: Decalcification bone/plaque Surgery Specimen Level IV HEADER OPERATION: Septoplasty, submucous resection of inferior turbinates PRE-OP DIAGNOSIS: Nasal congestion, hypertrophy of nasal turbinates, deviated nasal septum TISSUE SUBMITTED: Nasal septum MICROSCOPIC DIAGNOSIS Nasal septum, septoplasty: Fragments of bone and cartilage clinically deviated nasal septum. 05/21/2024 MICROSCOPIC DESCRIPTION Slides are reviewed. GROSS DESCRIPTION Received is one container labeled with the patient's name and not further designated. The specimen consists of multiple fragments of cartilage and bone measuring in aggregate 5.0 x 3.0 x 0.3cm. The entire specimen is submitted in two cassettes after decalcification. 05/18/2024 TC:5 CPT:80928, 86214
--- OUTSIDE RECORDS SUMMARY | 2024-05-17 19:39 | XMS RPT_ITS | CCD ---
Author Organization [facility] Care Team Providers Care Outreach Director Name Role Phone Ronni Landaverde Kuldeep Primary Care Provider [phone] Pcp, No Primary Care Provider Unavailabl e Unavailable Primary Care Provider Unavailabl e TAPIO, PATRICIA Admitting Unavailable TAPIO PATRICIA Attending Unavailable TAPIO PATRICIA Consulting Unavailable Pcp ASSISTANT TENNIS COACH, No Primary Care Provider UnavailDO Tommy Duenas Emergency Provider NO FAMILY, PHYSICIAN Primary Care Provider Unava ilTommy Monge Admitting Unavailable Tommy Swanson Attending Unavailable NO FAMILY, PHYSICIAN Primary Care Unavailable JOHN CHAMBERS Attending Unavailable JOHN CHAMBERS Primary Care Unavailable JOHN CHAMBERS Admitting Unavailable Unavailable Primary Care Provider UnavailHumberto Soriano MD Unavailable [phone] Worthkatie ASSISTANT TENNIS COACH.LAP GRINDER, Dawit Unavailable [phone] Humberto Bustillo MD Primary Care Provider [phone] Pcp ASSISTANT TENNIS COACH, No Primary Care Provider Unavaildamián KUMAR PHUC A Referring Unavailable STACY ALVAREZ Attending Unavailable PHUC KUMAR A Referring Unavailable DAWIT ROJAS Referring Unavailable PHUC KUMAR Attending Unavailable DAWIT ROJAS Attending Unavailable HUMBERTO BUSTILLO Primary Care Unavailable PHUC KUMAR Referring Unavailable MARIZA HAYES Referring Unavailable HUMBERTO BUSTILLO Primary Care Unavailable MARIZA HAYES Attending Unavailable PHYSICIAN, NONE Primary Care Physician Unavailab le PHYSICIAN, NONE Primary Care Unavailable REFERRING, PHY WO ID Attending Unavailable Allergies Allergy Classification Reported Allergen(s) Allergy Type Date of Onset Reaction(s) Facility Unclassified (20 sources) Antihistimine; Translations: [ANTIHISTIMINE] Drug Allergy 06-19-20 15 Mental Status Change [facility] (20 sources) Metoclopramide; Translations: [METOCLOPRAMIDE] Drug Allergy 01-29-20 19 Mental Status Change, Other: See Comments [facility] (20 sources) Prochlorperazine; Translations: [PROCHLORPERAZINE] Drug Allergy 01-29-20 Mental Status Change, Other: See Comments [facility] (20 sources) Shellfish; Translations: [SHELLFISH DERIVED] Drug Allergy 03-21-20 Diarrhea [facility] (20 sources) meloxicam; Translations: [MELOXICAM] Drug Allergy 08-31-19 Anaphylaxis [facility] Other [facility] (2 sources) Antihistamines - Alkylamine; Translations: [Antihistamines - Alkylamine] Propensity to adverse reactions 11-13-19 Unknown Reaction [facility] (1 source) Metoclopramide Drug Allergy 11-13-19 [facility] (1 source) Prochlorperazine Drug Allergy 11-13-19 [facility] (1 source) diphenhydrAMINE Drug Allergy [facility] (1 source) meloxicam Drug Allergy [facility] Rep[facility] Medications Current Medications Medication Drug Class(es) Dates Sig (Normalized) Sig (Original) acetaminophen 325 mg oral tablet (17 sources) Start: 02-27-2023 take 325-650 mg by mouth every four hours as needed acetaminophen (TYLENOL) 325 mg tablet Take 1-2 tablets by mouth every 4 hours as needed for pain. 200 tablet 02/27/2023 Active Comment on above: Take 1-2 tablets by mouth every 4 hours as needed for pain. [id number] 200 actuat albuterol 0.09 mg/actuat metered dose inhaler (20 sources) beta2-Adrenergic Agonist Start: 02-24-2016 take 2 puff(s) by inhalation every six hours as needed albuterol HFA (PROVENTIL HFA, VENTOLIN HFA) 90 mcg/actuation inhaler Inhale 2 Puffs as instructed every 6 hours as needed. 02/24/2016 Active Start: 02-24-2016 albuterol HFA (PROVENTIL HFA, VENTOLIN HFA) 90 mcg/actuation inhaler Inhale as instructed. 0 02/24/2016 Active Comment on above: Inhale as instructed . amoxicillin 875 mg / clavulanate 125 mg oral tablet (1 source) Penicillin-class Antibacterial Start: 2022 End: 2022 amoxicillin-clavulani c acid (AUGMENTIN) 875-125 mg per tablet Take 1 tablet by mouth twice daily for 10 days. FOR 7 DAYS. 20 tablet 0 04/09/2023 04/19/2023 Active Comment on above: Take 1 tablet by jacquelyn th twice daily for 10 days. FOR 7 DAYS. bictegravir 50 mg / emtricitabine 200 mg / tenofovir alafenamide 25 mg oral tablet (20 sources) Human Immunodeficiency Virus Nucleoside Analog Reverse Transcriptase Inhibitor Start: 2022 take 1 tablet by mouth once BIKTARVY 50-200-25 mg per tablet Take 1 tablet by mouth every afternoon. 12/20/2022 Active Comment on above: Take 1 tablet by jacquelyn th every afternoon. busPIRone hydrochloride 5 mg oral tablet (11 sources) take 1 tablet by mouth in the morning, then take 2 tablets by mouth in the evening busPIRone (BUSPAR) 5 mg tablet Take 5mg by mouth in AM & 10mg in PM. Active cholecalciferol 0.025 mg oral tablet (20 sources) Vitamin D Start: 2021 take 1 tablet by mouth once daily cholecalciferol (VITAMIN D3) 1,000 unit tab tablet Take 1,000 Units by mouth once daily. 12/23/2021 Active Start: 12-23-2021 cholecalcifero l (VITAMIN D3) 1,000 unit tab tablet FLUoxetine 20 mg oral capsule (11 sources) Serotonin Reuptake Inhibitor take 1 capsule by mouth once daily FLUoxetine (PROZAC) 20 mg capsule Take 20 mg by mouth once daily. Active iv contrast (will be provided with radiology test) (1 source) Start: 07-25-19 End: 07-26-19 iv contrast (will be provided with radiology test) MRI foot/toes RT Inject, intravenously, once for 1 dose. No IV access, insert saline lock prior to the beginning of sedation, infusion, injection of imaging exam. Discontinue saline lock post exam. If Pt. has a central line or IVAD, may access for administration according to line specific nursing protocol. Once exam is complete flush line and de-access according to line specific nursing protocol in the MR contrast administration guidelines link. 1 Each 0 07/25/2022 07/26/2022 Active Comment on above: MRI foot/toes RT Inj ect, intravenously, once for 1 dose. No IV access, insert saline lock prior to the beginning of sedation, infusion, injection of imaging exam. Discontinue saline lock post exam. If Pt. has a central line or IVAD, may access for administration according to line specific nursing protocol. Once exam is complete flush line and de-access according to line specific nursing protocol in the MR contrast administration guidelines link. Lactobac no.41/Bifidobact no.7 (PROBIOTIC-10 ORAL) (20 sources) take 1 tablet by mouth once daily Lactobac no.41/Bifidobact no.7 (PROBIOTIC-10 ORAL) Take 1 tablet by mouth once daily. Active Lactobac no.41/B ifidobact no.7 (PROBIOTIC-10 ORAL) melatonin 5 mg oral capsule (11 sources) take 1-2 capsules by mouth every twenty-four hours as needed Melatonin 5 mg cap Take 1-2 capsules by mouth at bedtime as needed for insomnia. Active meloxicam 15 mg oral tablet (4 sources) Nonsteroidal Anti-inflammatory Drug Start : 01-28 End: 02-27 take 1 tablet by mouth once daily meloxicam (MOBIC) 15 mg tablet Take 1 tablet by mouth once daily. 30 tablet 1 01/28/2023 02/27/2023 Active Comment on above: Take 1 tablet by jacquelyn th once daily. methylPREDNISolone (2 sources) Corticosteroid Start : 01-28 End: 02-02 methylPREDNISolone (MEDROL, CM,) 4 mg Dose-Pack Take as directed 21 tablet 0 01/28/2023 02/02/2023 Active Comment on above: Take as directed multivitamin tablet (11 sources) take 1 tablet by mouth once daily multivitamin tablet Take 1 tablet by mouth once daily. Active naproxen 500 mg oral tablet (17 sources) Nonsteroidal Anti-inflammatory Drug Start : 02-27 take 1 tablet by mouth twice daily at mealtime naproxen (NAPROSYN) 500 mg tablet Take 1 tablet by mouth twice daily with meals. Take with food. 28 tablet 02/27/2023 Active Comment on above: Take 1 tablet by jacquelyn th twice daily with meals. Take with food. omeprazole 20 mg delayed release oral tablet (20 sources) Proton Pump Inhibitor Start : 10-23 take 1 tablet by mouth once daily Omeprazole Magnesium 20 mg tablet Take 20 mg by mouth once daily. 10/24/2019 Active Comment on above: Take by mouth. polyethylene glycol 3350 [id number] mg / potassium chloride 2970 mg / sodium bicarbonate 6740 mg / sodium chloride 5860 mg / sodium sulfate 05260 mg powder for oral solution (1 source) Osmotic Laxative Start : 03-23 End: 03-23 peg 3350-Electrolytes (GOLYTELY) 236-22.74-6.74 -5.86 gram suspension Indications: History of colonic polyps , Encounter for screening for malignant neoplasm of colon Take 4,000 mL by mouth one time only for 1 dose. Refer to printed prep instructions from your provider. 4000 mL 03/23/2024 03/23/2024 Active propranolol hydrochloride 20 mg oral tablet (11 sources) beta-Adrenergic Yennifer take 1 tablet by mouth once daily propranolol (INDERAL) 20 mg tablet Take 20 mg by mouth once daily. Active valsartan 160 mg oral tablet (11 sources) Angiotensin 2 Receptor Yennifer take 1 tablet by mouth once daily valsartan (DIOVAN) 160 mg tablet Take 160 mg by mouth once daily. Active Completed/Discontinued Medications Medication Drug Class(es) Dates Sig (Normalized) Sig (Original) cephalexin 500 mg oral capsule (5 sources) Cephalosporin Antibacterial Start: 01-28-2023 take 1 capsule by mouth three times daily cephALEXin (KEFLEX) 500 mg capsule Take 1 capsule by mouth three times daily. 21 capsule 0 01/28/2023 Active Comment on above: Take 1 capsule by [facility] [place] three times daily. Problems Active Problems Problem Classification Problem Date Documented Da te Episodic/Chronic Administrative/social admission (1 source) Other problems related to medical facilities and other health care; Translations: [Other specified conditions influencing health status] 02-26-2024 Episodic Genitourinary congenital anomalies (1 source) Multiple renal cysts; Translations: [Polycystic kidney, unspecified] 03-15-2024 Chronic Nonspecific chest pain (3 sources) Chest pain; Translations: [Chest pain, unspecified] Onset: 11-13-2023 11-13-2023 Episodic Other and unspecified benign neoplasm (1 source) History of polyp of colon; Translations: [Personal history of colonic polyps] 03-23-2024 Episodic Other and unspecified benign neoplasm (1 source) Personal history of colonic polyps; Translations: [History of colonic polyps] Onset: 03-23-2024 Episodic Other bone disease and musculoskeletal deformities (5 sources) Osteopenia; Translations: [Other specified disorders of bone density and structure, other site] 02-25-2024 Episodic Other bone disease and musculoskeletal deformities (1 source) Other specified disorders of bone density and structure, other site; Translations: [Osteopenia of other site] Onset: 03-15-2024 Episodic Other circulatory disease (1 source) Abnormal peripheral pulse; Translations: [Other specified symptoms and signs involving the circulatory and respiratory systems] Episodic Other congenital anomalies (5 sources) Osteosclerosis; Translations: [Osteopetrosis] 02-25-2024 Chronic Other congenital anomalies (1 source) Osteopetrosis; Translations: [Bony sclerosis] Onset: 03-15-2024 Chronic Other connective tissue disease (4 sources) Pain of toe of right foot; Translations: [Pain in right toe(s)] Episodic Other connective tissue disease (3 sources) Mass of soft tissue; Translations: [Other specified soft tissue disorders] Episodic Other endocrine disorders (3 sources) Testicular hypofunction; Translations: [Testicular hypofunction] 03-15-2024 Chronic Other endocrine disorders (1 source) Testicular hypofunction; Translations: [Testicular hypofunction] Onset: 03-15-2024 Chronic Other gastrointestinal disorders (1 source) Dysphagia; Translations: [Dysphagia, unspecified] 03-23-2024 Episodic Other gastrointestinal disorders (1 source) Heartburn; Translations: [Heartburn] 03-23-2024 Episodic Other gastrointestinal disorders (2 sources) Diarrhea; Translations: [Diarrhea, unspecified] 03-23-2024 Episodic Other gastrointestinal disorders (1 source) Diarrhea, unspecified; Translations: [Diarrhea, unspecified type] Onset: 03-30-2024 Episodic Other male genital disorders (20 sources) Pain in penis; Translations: [Other specified disorders of penis] Onset: 12-04-2015 12-04-2015 Chronic Other screening for suspected conditions (not mental disorders or infectious disease) (3 sources) Imaging result abnormal; Translations: [Abnormal findings on diagnostic imaging of other specified body structures] Onset: 02-26-2024 02-16-2024 Chronic Other screening for suspected conditions (not mental disorders or infectious disease) (1 source) Patient encounter status; Translations: [Encounter for screening for malignant neoplasm of colon] 03-23-2024 Episodic Other skin disorders (2 sources) Mass of foot; Translations: [Localized swelling, mass and lump, right lower limb] Episodic Past or Other Problems Problem Classification Problem Date Documented Da te Episodic/Chronic Calculus of urinary tract (20 sources) Kidney stone; Translations: [Calculus of kidney] Onset: 5 07-05-2015 Episodic Other diseases of kidney and ureters (20 sources) Cyst of kidney; Translations: [Cyst of kidney, acquired] Onset: 5 07-05-2015 Episodic Other injuries and conditions due to external causes (1 source) Other injury of unspecified body region, initial encounter; Translations: [Wound infection] Onset: 4 Episodic Phlebitis; thrombophlebitis and thromboembolism (1 source) Phlebitis and thrombophlebitis of unspecified site; Translations: [Thrombophlebitis] Onset: 4 Episodic Skin and subcutaneous tissue infections (2 sources) Cellulitis and abscess of toe; Translations: [Cellulitis of right toe] Onset: 4 01-28-2023 Episodic Results Test Name Value Interpretation Reference Range Facility XR HIP 1 VIEW RIGHTon 2023 XR HIP 1 VIEW RIGHT ORIGINAL EXAMINATION: ONE XRAY VIEW OF THE RIGHT HIP05/13/2024 2:35 pm Single AP view COMPARISON: None HISTORY: ORDERING SYSTEM PROVIDED HISTORY: Reason for Exam: RIGHT HIP PAIN, FINDINGS: No fracture, destructive process or periosteal reaction is seen. Hip joint space seems maintained with no obvious degenerative changes. IMPRESSION: Negative single hip radiograph. Interpreted by: Salvador Roberts MD Preliminary Report By: Salvador Roberts MD Electronically signed By Salvador Roberts MD Dictated Date: 05/14/2024 7:33:31 AM Prelim Date: 05/14/2024 7:33:56 AM Sign Date: 05/14/2024 7:33:56 AM Ordering Provider: NIR SIEGEL [facility] BELL Childress 04-16-2024 MOR Telephone (SARMAD) -- FAUSTINO UNGER ([id number]) 1990 M Date Time Provider Department 04/16/24 PHUC KUMAR SARMAD During your visit today, we recorded the following information about you: Phuc Kumar DO 04/16/2024 6:39 PM Signed Can let him know the laboratory testing I ordered did not reveal any evidence of a bone marrow disorder. Bone density was low for his age. Plain film x-ray showed no evidence of sclerotic lesions. Recommend referral to endocrinology due to low bone density. DO Donnell Snider Kara, LPN 04/19/2024 9:21 AM Signed Left VM, will send [employer] message. Advised pt to call office or respond in [employer] if he had any questions. Will need scheduled with endocrin. GERARD Rush Kara, LPN 04/20/2024 9:46 AM Signed Pt aware, please assist with endocrin ref. GERARD Rush Stephanie 04/20/2024 3:07 PM Signed Spoke with patient and scheduled Endocrinology referral. Elaine Barreto Allergies As of Date: 04/16/2024 Noted Allergy Reaction ANTIHISTIMINE 06/19/2015 1 - Mental Status Change METOCLOPRAMIDE 01/28/2019 1 - Mental Status Change 14 - Other: See Comments MOBIC (MELOXICAM) 08/31/2023 10 - Anaphylaxis PROCHLORPERAZINE 01/28/2019 1 - Mental Status Change 14 - Other: See Comments SHELLFISH DERIVED 03/21/2022 6 - Diarrhea Date Reviewed: 03/29/2024 Reviewed by: Kamille Lopez, RT(R) - Fully Assessed Reason for Visit: Results [95] Primary Visit Diagnosis:Osteopenia of lumbar spine [M85.88] Order(s):CONSULT TO ENDOCRINOLOGY [9007] Order #: [id number]: 1 FUTURE Prescriptions as of 04/20/2024 - FLUoxetine (PROZAC) 20 mg capsule Take 20 mg by mouth once daily. - busPIRone (BUSPAR) 5 mg tablet Take 5mg by mouth in AM AND 10mg in PM. - propranolol (INDERAL) 20 mg tablet Take 20 mg by mouth once daily. - valsartan (DIOVAN) 160 mg tablet Take 160 mg by mouth once daily. - Melatonin 5 mg cap Take 1-2 capsules by mouth at bedtime as needed for insomnia. - multivitamin tablet Take 1 tablet by mouth once daily. - acetaminophen (TYLENOL) 325 mg tablet Take 1-2 tablets by mouth every 4 hours as needed for pain. - naproxen (NAPROSYN) 500 mg tablet Take 1 tablet by mouth twice daily with meals. Take with food. - BIKTARVY 50-200-25 mg per tablet Take 1 tablet by mouth every afternoon. - Omeprazole Magnesium 20 mg tablet Take 20 mg by mouth once daily. - Lactobac no.41/Bifidobact no.7 (PROBIOTIC-10 ORAL) Take 1 tablet by mouth once daily. - cholecalciferol (VITAMIN D3) 1,000 unit tab tablet Take 1,000 Units by mouth once daily. - albuterol HFA (PROVENTIL HFA, VENTOLIN HFA) 90 mcg/actuation inhaler Inhale 2 Puffs as instructed every 6 hours as needed. Problem List As Of Date 04/16/2024 Noted Resolved Kidney stone [N20.0] 07/05/2015 Renal cyst [N28.1] 07/05/2015 Penile pain [N48.89] 12/04/2015 Encounter Status:Closed by ELAINE BARRETO on 04/20/24 Normal [facility] BD DXA - AXIAL SKELETONon BD DXA - AXIAL SKELETON * * *Final Report* * * DATE OF EXAM: Apr 01 2024 10:25AM [facility] 0804 - BD DXA - AXIAL SKELETON / PROCEDURE REASON: multiple diagnoses * * * * Physician Interpretation * * * * EXAMINATION: DXA BONE DENSITOMETRY BD DXA - AXIAL SKELETON, BD DXA TRABECLR BONE SCORE (TBS) PATIENT DEMOGRAPHICS: Age: 33 years, Gender: Male SCANNER INFORMATION: DXA Model: [place] [employer] - Ion Core C 18968 Date Scanned: 04/01/2024 10:25 AM CLINICAL HISTORY: DIAGNOSTIC Bony sclerosis Osteopenia of other site Testicular hypofunction . RISK FACTORS FOR OSTEOPOROSIS AND ASSOCIATED FRACTURES REPORTED BY THIS PATIENT: Please refer to Bone Health Questionnaire in the EMR CURRENT THERAPY: Please refer to Bone Health Questionnaire in the EMR TECHNICAL LIMITATIONS: None RESULTS: Lumbar spine (L1, L2, L3, L4): 0.782 g/cm2, Z-score -2.8 Left Femoral Neck: 0.657 g/cm2, Z-score -1.7 Left Total Hip: 0.781 g/cm2, Z-score -1.5 No comparison data - the patient has not had a previous bone density in the [facility] or the previous bone density was performed on a different DXA machine (new, updated model or different location) within the [facility]. VERTEBRAL FRACTURE ASSESSMENT Not performed. TRABECULAR BONE ASSESSMENT TBS score: 1.322 Bone micro-architecture: Normal (> 1.310) IMPRESSION: THE LOWEST Z-SCORE IS -2.8 IN THE SPINE 1) DIAGNOSIS (based on BMD alone): BELOW THE EXPECTED RANGE FOR AGE -Caution: medical conditions other than osteoporosis may cause low bone density, such as osteomalacia or renal osteodystrophy. Clinical correlation is necessary. 2) FRACTURE RISK (based on BMD alone): Fracture data based solely on BMD is not available in this age group to make this assessment. However, fracture risk may be increased independent of BMD, particularly in patients taking corticosteroids or patients with a prior fragility fracture. RECOMMENDATIONS: Follow-up as clinically indicated. Patients that are taking corticosteroids, are transplant recipients or have hyperparathyroidism should have annual follow-up. Follow-up scans should always be done on the same machine for accurate comparison. FOR MORE INFORMATION ABOUT DIAGNOSIS AND TREATMENT: [facility]osis and Metabolic Bone Disease:? www.ccf.org/arthritis/oste o National Osteoporosis Foundation:? www.nof.org International Society of Clinical Densitometry www.iscd.org Housekeeping Department Worker: MIRIAN Transcribe Date/Time: Apr 05 2024 11:13A Dictated by : TIMOTHY BECKHAM MD This examination was interpreted and the report reviewed and electronically signed by: TIMOTHY BECKHAM MD on Apr 05 2024 11:15AM EST [id number] Normal [facility] BD DXA TRABECLR BONE SCORE ( TBS)on 04-01-2024 BD DXA TRABECLR BONE SCORE (TBS) * * *Final Report* * * DATE OF EXAM: Apr 01 2024 10:25AM [facility] 0801 - BD DXA TRABECLR BONE SCORE (TBS) / PROCEDURE REASON: multiple diagnoses * * * * Physician Interpretation * * * * EXAMINATION: DXA BONE DENSITOMETRY BD DXA - AXIAL SKELETON, BD DXA TRABECLR BONE SCORE (TBS) PATIENT DEMOGRAPHICS: Age: 33 years, Gender: Male SCANNER INFORMATION: DXA Model: [employer] - Ion Core C [id number] Date Scanned: 04/01/2024 10:25 AM CLINICAL HISTORY: DIAGNOSTIC Bony sclerosis Osteopenia of other site Testicular hypofunction . RISK FACTORS FOR OSTEOPOROSIS AND ASSOCIATED FRACTURES REPORTED BY THIS PATIENT: Please refer to Bone Health Questionnaire in the EMR CURRENT THERAPY: Please refer to Bone Health Questionnaire in the EMR TECHNICAL LIMITATIONS: None RESULTS: Lumbar spine (L1, L2, L3, L4): 0.782 g/cm2, Z-score -2.8 Left Femoral Neck: 0.657 g/cm2, Z-score -1.7 Left Total Hip: 0.781 g/cm2, Z-score -1.5 No comparison data - the patient has not had a previous bone density in the [facility] or the previous bone density was performed on a different DXA machine (new, updated model or different location) within the [facility]. VERTEBRAL FRACTURE ASSESSMENT Not performed. TRABECULAR BONE ASSESSMENT TBS score: 1.322 Bone micro-architecture: Normal (> 1.310) IMPRESSION: THE LOWEST Z-SCORE IS -2.8 IN THE SPINE 1) DIAGNOSIS (based on BMD alone): BELOW THE EXPECTED RANGE FOR AGE -Caution: medical conditions other than osteoporosis may cause low bone density, such as osteomalacia or renal osteodystrophy. Clinical correlation is necessary. 2) FRACTURE RISK (based on BMD alone): Fracture data based solely on BMD is not available in this age group to make this assessment. However, fracture risk may be increased independent of BMD, particularly in patients taking corticosteroids or patients with a prior fragility fracture. RECOMMENDATIONS: Follow-up as clinically indicated. Patients that are taking corticosteroids, are transplant recipients or have hyperparathyroidism should have annual follow-up. Follow-up scans should always be done on the same machine for accurate comparison. FOR MORE INFORMATION ABOUT DIAGNOSIS AND TREATMENT: [facility]osis [facility] Metabolic Bone Disease:? www.ccf.org/arthritis/oste o National Osteoporosis Foundation:? www.nof.org International Society of Clinical Densitometry www.iscd.org Housekeeping Department Worker: PSCKenneth Transcribe Date/Time: Apr 05 2024 11:13A Dictated by : TIMOTHY BECKHAM MD This examination was interpreted and the report reviewed and electronically signed by: TIMOTHY BECKHAM MD on Apr 05 2024 11:15AM EST [id number] Normal [facility] CT ABD/PEL WO IVCONon 2023 CT ABD/PEL WO IVCON * * *Final Report* * * DATE OF EXAM: Mar 30 2024 3:11PM [facility] 0531 - CT ABD/PEL WO IVCON / PROCEDURE REASON: Diarrhea, unspecified type * * * * Physician Interpretation * * * * EXAMINATION: CT ABDOMEN AND PELVIS WITHOUT IV CONTRAST CLINICAL HISTORY: Diarrhea. TECHNIQUE: Non-IV contrast imaging of the abdomen and pelvis was performed using standard technique, scanning from just above the dome of the diaphragm to the symphysis pubis. Unenhanced imaging is limited for the evaluation of some intra-abdominal and pelvic pathology. MQ: [id number] Contrast: IV: None CT Radiation dose: Integrated Dose-length product (DLP) for this visit = 434 mGy*cm. CT Dose Reduction Employed: Automated exposure control(AEC) and iterative recon COMPARISON: None. RESULT: Abdomen / Pelvis: Liver: Unremarkable. Biliary: No bowel dilation. No CT evidence of gallbladder stones. Spleen: No splenomegaly. Pancreas: Unremarkable. Adrenals: No mass. Kidneys: There is a bilobed cystic lesion in the upper pole of the right kidney with focal calcification measuring 5.5 x 7.8 x 5.7 cm. Also noted is a 1.3 cm low-attenuation lesion or cyst in the left kidney. No hydroureteronephrosis. GI Tract: No bowel dilation. The appendix is identified and normal in appearance. Scattered colonic diverticula noted however no evidence of diverticulitis. Lymph Nodes: No lymphadenopathy. Mesentery/peritoneum: No ascites or free abdominal air. Retroperitoneum: No mass. Vasculature: Not fully characterized. Pelvis: No mass or ascites. Bones/Soft Tissues: No acute abnormality. Lower thorax: The abdominal soft tissue is within normal limits. The visualized bones are intact. Localizer images: No pleural effusions. Lung bases are clear of consolidations.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 #### S ERIMM ####[facility] LABCLIA [id number] [place] [address] [place] IgM [Mass/Vol] 150 mg/dL Normal 40-230 [facility] Comment on above: Order Comment: Speci men Type: BLOOD SPECIMENOrdering Facility: [facility] Address: [address] [place] [address] Performed By: #### S ERIMM ####[facility] LABCLIA [id number] [place] [address] [place] KAPPA/CHOUDHARY,FREE,SERon 2023 Immunoglobulin light chains.kappa.free (S) [Mass/Vol] 17.0 mg/L Normal 3.3-19.4 [facility] Comment on above: Order Comment: Speci men Type: BLOOD SPECIMENOrdering Facility: [facility] Address: [address] [place] [address] Result Comment: Rare ly, increased serum free light chains levels may not be detected or accurately quantified due to prozone phenomenon or in high viscosity samples using this immunoturbidimetric assay. Correlation with other laboratory results and clinical findings is recommended. The [place] Free Light Chain was performed using the Binding Site Optilite immunoturbidimetric method. Result obtained with different assay methods or kits cannot be used interchangeably. Performed By: #### K LFRS ####[facility] LABCLIA [id number] [place] [address] [place] Immunoglobulin light chains.kappa/Immunoglo bulin light chains.lambda (S) [Mass ratio] 1.06 Normal 0.26-1.65 [facility] Comment on above: Order Comment: Speci men Type: BLOOD SPECIMENOrdering Facility: [facility] Address: [address] [place] [address] Performed By: #### K LFRS ####[facility] LABCLIA [id number] [place] [address] [place] Immunoglobulin light chains.lambda.free [Mass/Vol] 16.0 mg/L Normal 5.7-26.3 [facility] Comment on above: Order Comment: Speci men Type: BLOOD SPECIMENOrdering Facility: [facility] Address: [address] [place] [address] Result Comment: Rare ly, increased serum free light chains levels may not be detected or accurately quantified due to prozone phenomenon or in high viscosity samples using this immunoturbidimetric assay. Correlation with other laboratory results and clinical findings is recommended. The [place] Free Light Chain was performed using the Binding Site Optilite immunoturbidimetric method. Result obtained with different assay methods or kits cannot be used interchangeably. Performed By: #### K LFRS ####[facility] LABCLIA [id number] [place] [address] [place] PROTEIN ELECTROPHORESIS SERU M (P)on 03-15-2024 Albumin [Mass/Vol] 4.57 g/dL Normal 3.43-5.41 [facility] Comment on above: Order Comment: Speci men Type: BLOOD SPECIMENOrdering Facility: [facility] Address: [address] [place] [address] Performed By: #### L [id number] ####[facility] LABCLIA [id number] [place] [address] [place] Alpha 1 globulin Elph [Mass/Vol] 0.31 g/dL Normal 0.18-0.43 [facility] Comment on above: Order Comment: Speci men Type: BLOOD SPECIMENOrdering Facility: [facility] Address: [address] [place] [address] Performed By: #### L [id number] ####[facility] LABIA [id number] [place] [address] [place] Alpha 2 globulin Elph [Mass/Vol] 0.69 g/dL Normal 0.42-0.98 [facility] Comment on above: Order Comment: Speci men Type: BLOOD SPECIMENOrdering Facility: [facility] Address: [address] [place] [address] Performed By: #### L [id number] ####[facility] LABIA [id number] [place] [address] [place] Beta globulin Elph [Mass/Vol] 0.88 g/dL Normal 0.61-1.17 [facility] Comment on above: Order Comment: Speci men Type: BLOOD SPECIMENOrdering Facility: [facility] Address: [address] [place] [address] Performed By: #### L [id number] ####[facility] [id number] [place] [address] [place] Gamma globulin Elph [Mass/Vol] 0.75 g/dL Normal 0.53-1.51 [facility] Comment on above: Order Comment: Speci men Type: BLOOD SPECIMENOrdering Facility: [facility] Address: [address] [place] [address] Performed By: #### L [id number] ####[facility] [id number] [place] [address] [place] M-PROTEIN LOCATION Normal [facility] Comment on above: Order Comment: Speci men Type: BLOOD SPECIMENOrdering Facility: [facility] Address: [address] [place] [address] Result Comment: Not Applicable. Performed By: #### L [id number] ####[facility] [id number] [place] [address] [place] Protein Fractions [Interp] No definitive M protein is identified on protein electrophoresis. Normal No definitive M protein is identified on protein electrophor esis. [facility] Comment on above: Order Comment: Speci men Type: BLOOD SPECIMENOrdering Facility: [facility] Address: [address] [place] [address] Performed By: #### L [id number] ####[facility]IA [id number] [place] [address] [place] Protein.monoclonal Elph [Mass/Vol] 0.00 g/dL Normal <=0.00 [facility] Comment on above: Order Comment: Speci men Type: BLOOD SPECIMENOrdering Facility: [facility] Address: [address] [place] [address] Performed By: #### L [id number] ####[facility]IA [id number] [place] [address] [place] SPE STAFF REVIEW Reviewed by Ochoa Arias MD, Ph.D ([id number]) Normal [facility] Comment on above: Order Comment: Speci men Type: BLOOD SPECIMENOrdering Facility: [facility] Address: [address] [place] [address] Performed By: #### L [id number] ####[facility]IA [id number] [place] [address] [place] PTH-Intact SerPl-mCncon 02-19 Parathyrin.intact [Mass/Vol] 25 pg/mL Normal 15-65 [facility] Comment on above: Order Comment: Speci men Type: BLOOD SPECIMENOrdering Facility: [facility] Address: [address] [place] [address] Performed By: #### 2 731-8, 2986-8, 2885-2 ####[facility] LABIA [id number] [place] [address] [place] Prot SerPl-mCncon 03-15-2024 Protein [Mass/Vol] 7.2 g/dL Normal 6.3-8.0 [facility] Comment on above: Order Comment: Speci men Type: BLOOD SPECIMENOrdering Facility: [facility] Address: [address] [place] [address] Performed By: #### 2 731-8, 2986-8, 2885-2 ####[facility] LABCLIA [id number] [place] [id number] [place] Testost SerPl-mCncon 024 Testosterone [Mass/Vol] 269 ng/dL Normal 193-824 [facility] Comment on above: Order Comment: Speci men Type: BLOOD SPECIMENOrdering Facility: [facility] Address: [address] [place] [address] Result Comment: A te stosterone level in the 193-320 ng/dL range with associated clinical symptoms is considered low and may indicate hypogonadism (from [facility] 2010 363:123-135). Results >320 ng/dL are considered normal. Performed By: #### 2 731-8, 2986-8, 288-2 ####[facility] LABCLIA [id number] [address] [place] VASC ENDO GROWTH FACTORon VASC ENDO GROWTH FACTOR 63 pg/mL Normal 9-86 [facility] Comment on above: Order Comment: Speci men Type: BLOOD SPECIMENOrdering Facility: [facility] Address: [address] [place] [address] Result Comment: INTE RPRETIVE INFORMATION: Vascular Endothelial G Factor This assay is performed using the QuantiGlo Chemilumincescent EIA kit. Values obtained with different assay methods or kits cannot be used interchangeably. This test was developed and its performance characteristics determined by [facility]. It has not been cleared or approved by the [place] Food and Drug Administration. This test was performed in a CLIA certified laboratory and is intended for clinical purposes. Performed By: [facility] [address] [place] [address] Installation Specialist: Gael Louis MD, PhD CLIA Number: [id number] Performed By: #### V EGF ####[facility] [id number] [place] [address] VITAMIN D 25 HYDROXYon 03-15 25-hydroxyvitamin D3 [Mass/Vol] 35.5 ng/mL 31.0 - 80.0 ng/mL [facility] XR BONE SURVEY ROUTINEon XR BONE SURVEY ROUTINE * * *Final Report * * * DATE OF EXAM: Mar 15 2024 3:22PM WRX [id number] - XR BONE SURVEY ROUTINE / PROCEDURE REASON: Bony sclerosis * * * * Physician Interpretation * * * * EXAMINATION: XR BONE SURVEY ROUTINE PATIENT/TECHNOLOGIST PROVIDED HISTORY: Pain all over body; bony sclerosis. CLINICAL HISTORY: 33 years old Male with Bony sclerosis TECHNIQUE: lateral skull, lateral cervical spine, frontal and lateral thoracic and lumbar spine, one view each upper extremity, bilateral ribs, frontal pelvis, frontal lower extremities VIEWS: 18 COMPARISON: CT cervical spine 12/22/2023 Lateral view of the skull is unremarkable. A lateral image of the cervical spine demonstrates mild degenerative disk disease, without evidence of neoplasia. All 7 cervical vertebral levels are included. Frontal and lateral images of the thoracic and lumbar spine demonstrate normal vertebral height and alignment. Bone density appears normal. Pedicles appear intact. Disc spaces are maintained. Single images of each upper extremity appear unremarkable. Images of the right and of the left ribs are unremarkable. Frontal images of the pelvis and lower extremities are unremarkable. IMPRESSION: No radiographic evidence of suspicious osseous lesion. Housekeeping Department Worker: PSCB Transcribe Date/Time: Mar 18 2024 12:31P Dictated by : WASHINGTON SHARPE DO This examination was interpreted and the report reviewed and electronically signed by: WASHINGTON SHARPE DO on Mar 18 2024 12:38PM EST [id number] Normal [facility] CNPPeggy 02-27-2024 CNPN Telephone (SARMAD) -- FAUSTINO UNGER ([id number]) 1990 M Date Time Provider Department 02/27/24 PHUC KUMAR HEMAWS During your visit today, we recorded the following information about you: Kaley Ward 02/27/2024 8:46 AM Signed Patient is being referred to hematology oncology DX: Abnormal finding on Imaging Insurance: [employer] Referred by: Dawit Rojas APRN. LAP GRINDER Please review and advise Jadyn Snow LPN 02/27/2024 9:44 AM Signed Please see distance health note from yesterday. GERARD Hennessy Paul A, DO 03/01/2024 2:11 PM Signed Next kerry. or Dr. Manzano. DO Marylou Snider, Harshil 03/01/2024 3:26 PM Signed I called and spoke to patient AND scheduled him with for 03/15/24 @ 1:30 pm, patient confirmed this date, time and location [facility] Allergies As of Date: 02/27/2024 Noted Allergy Reaction ANTIHISTIMINE 06/19/2015 1 - Mental Status Change METOCLOPRAMIDE 01/28/2019 1 - Mental Status Change 14 - Other: See Comments MOBIC (MELOXICAM) 08/31/2023 10 - Anaphylaxis PROCHLORPERAZINE 01/28/2019 1 - Mental Status Change 14 - Other: See Comments SHELLFISH DERIVED 03/21/2022 6 - Diarrhea Date Reviewed: 12/22/2023 Reviewed by: Maged Sims RN - Fully Assessed Reason for Visit: New Patient [172] Prescriptions as of 03/01/2024 - acetaminophen (TYLENOL) 325 mg tablet Take 1-2 tablets by mouth every 4 hours as needed for pain. - naproxen (NAPROSYN) 500 mg tablet Take 1 tablet by mouth twice daily with meals. Take with food. - BIKTARVY 50-200-25 mg per tablet Take 1 tablet by mouth every afternoon. - Omeprazole Magnesium 20 mg tablet Take by mouth. - Lactobac no.41/Bifidobact no.7 (PROBIOTIC-10 ORAL) - cholecalciferol (VITAMIN D3) 1,000 unit tab tablet - albuterol HFA (PROVENTIL HFA, VENTOLIN HFA) 90 mcg/actuation inhaler Inhale as instructed. Problem List As Of Date 02/27/2024 Noted Resolved Kidney stone [N20.0] 07/05/2015 Renal cyst [N28.1] 07/05/2015 Penile pain [N48.89] 12/04/2015 Encounter Status:Closed by HARSHIL MANN on 03/01/24 Normal [facility] 02-17-2024 CNPN Telephone (RAAFVC) -- FAUSTINO UNGER ([id number]) 1990 Date Time Provider Department 02/17/24 KASIA ALANIZ RAJOAO During your visit today, we recorded the following information about you: Allergies As of Date: 02/17/2024 Noted Allergy Reaction ANTIHISTIMINE 06/19/2015 1 - Mental Status Change METOCLOPRAMIDE 01/28/2019 1 - Mental Status Change 14 - Other: See Comments MOBIC (MELOXICAM) 08/31/2023 10 - Anaphylaxis PROCHLORPERAZINE 01/28/2019 1 - Mental Status Change 14 - Other: See Comments SHELLFISH DERIVED 03/21/2022 6 - Diarrhea Date Reviewed: 12/22/2023 Reviewed by: Maged Sims, RN - Fully Assessed Reason for Visit: Actionable Findings Follow Up [8525] Prescriptions as of 05/06/2024 - FLUoxetine (PROZAC) 20 mg capsule Take 20 mg by mouth once daily. - busPIRone (BUSPAR) 5 mg tablet Take 5mg by mouth in AM AND 10mg in PM. - propranolol (INDERAL) 20 mg tablet Take 20 mg by mouth once daily. - valsartan (DIOVAN) 160 mg tablet Take 160 mg by mouth once daily. - Melatonin 5 mg cap Take 1-2 capsules by mouth at bedtime as needed for insomnia. - multivitamin tablet Take 1 tablet by mouth once daily. - acetaminophen (TYLENOL) 325 mg tablet Take 1-2 tablets by mouth every 4 hours as needed for pain. - naproxen (NAPROSYN) 500 mg tablet Take 1 tablet by mouth twice daily with meals. Take with food. - BIKTARVY 50-200-25 mg per tablet Take 1 tablet by mouth every afternoon. - Omeprazole Magnesium 20 mg tablet Take 20 mg by mouth once daily. - Lactobac no.41/Bifidobact no.7 (PROBIOTIC-10 ORAL) Take 1 tablet by mouth once daily. - cholecalciferol (VITAMIN D3) 1,000 unit tab tablet Take 1,000 Units by mouth once daily. - albuterol HFA (PROVENTIL HFA, VENTOLIN HFA) 90 mcg/actuation inhaler Inhale 2 Puffs as instructed every 6 hours as needed. Problem List As Of Date 02/17/2024 Noted Resolved Kidney stone [N20.0] 07/05/2015 Renal cyst [N28.1] 07/05/2015 Penile pain [N48.89] 12/04/2015 Encounter Status:Closed by KASIA ALANIZ on 05/06/24 Normal [facility] ALCOHOL-BLOOD MEDICALon 12-19 Ethanol [Mass/Vol] 5 mg/dL Normal 0 - 50 [facility] Comment on above: Performed By: #### 2 26131 #### [facility],[address] [place] [address] CBC + DIFFon 01-04-2024 Baso # 0.02 x10EE3/UL Normal 0.00 - 0.10 [facility] Comment on above: Performed By: #### 2 79205 #### [facility],[address] [place] [address] Basophils/100 WBC (Bld) 0.3 % Normal 0.0 - 2.0 [facility] Comment on above: Performed By: #### 2 29984 #### [facility],[address] [place] [address] CBC + DIFF Normal [facility] Comment on above: Result Comment: CBC- COMPLETE BLOOD COUNT Performed By: #### 2 41046 #### [facility],[address] [place] [address] EO # 0.23 x10EE3/UL Normal 0.00 - 0.50 [facility] Comment on above: Performed By: #### 2 84513 #### [facility],[address] [place] [address] 07520 Eosinophils/100 WBC (Bld) 3.3 % Normal 0.0 - 7.0 [facility] Comment on above: Performed By: #### 2 63015 #### [facility],[address] [place], [place] [id number] Erythrocyte distribution width (RBC) [Ratio] 13.6 % Normal 12.0 - 15.6 [facility] Comment on above: Performed By: #### 2 95228 #### [facility],[address] [place] [address] Hematocrit (Bld) [Volume fraction] 50.8 % Normal 40.0 - 52.0 [facility] Comment on above: Performed By: #### 2 12074 #### [facility],[address] [place] [address]64[address] Hemoglobin (Bld) [Mass/Vol] 17.2 g/dL Normal 13.0 - 17.5 [facility] Comment on above: Performed By: #### 2 55428 #### [facility],[address] [place] [address] 64067 Lymph # 1.84 x10EE3/UL Normal 0.80 - 2.80 [facility] Comment on above: Performed By: #### 2 59417 #### [facility],[address] [place] [address] 26140 Lymphocytes/100 WBC (Bld) 26.6 % Normal 20.0 - 45.0 [facility] Comment on above: Performed By: #### 2 27680 #### [facility],[address] [place] [address] 97855 MANUAL DIFF N/A Normal [facility] Comment on above: Performed By: #### 2 01564 #### [facility],[address] [place] [address] MCH (RBC) [Entitic mass] 32 pg Normal 27 - 33 [facility] Comment on above: Performed By: #### 2 99810 #### [facility],[address] [place] [address] MCHC 34 X10 3 Normal 32 - 36 [facility] Comment on above: Performed By: #### 2 82122 #### [facility],[address] [place], [place] [id number] MCV (RBC) [Entitic vol] 95 fL Normal 81 - 98 [facility] Comment on above: Performed By: #### 2 59441 #### [facility],[address] [place] [address] [place] # 0.90 x10EE3/UL Normal 0.20 - 1.00 [facility] Comment on above: Performed By: #### 2 10544 #### [facility],[address] [place] [address] MONOS % 13.0 % High 0.0 - 10.0 [facility] Comment on above: Performed By: #### 2 97753 #### [facility],[address] [place] [address] Morphology Lit (Bld) [Interp] N/A Normal [facility] Comment on above: Performed By: #### 2 35225 #### [facility],[address] [place] [address] Neut # 3.93 x10EE3/UL Normal 1.50 - 7.10 [facility] Comment on above: Performed By: #### 2 14321 #### [facility],[address] [place] [address] Neutrophils/100 WBC (Bld) 56.8 % Normal 46.0 - 76.0 [facility] Comment on above: Performed By: #### 2 39433 #### [facility],[address] [place] [address] 51892 PLATELET 303 x10EE3/UL Normal 150 - 450 [facility] Comment on above: Performed By: #### 2 68314 #### [facility],[address] [place] [address] 15964 Platelet mean volume (Bld) [Entitic vol] 6.5 fL Normal 6.4 - 10.5 [facility] Comment on above: Result Comment: AUTO MATED DIFFERENTIAL Performed By: #### 2 41684 #### [facility],[address] [place] [address] 53318 RBC 5.32 x 10EE6/UL Normal 4.50 - 6.00 [facility] Comment on above: Performed By: #### 2 75508 #### [facility],[address] [place] [address] 61200 WBC 6.9 x 10EE3/UL Normal 4.5 - 10.8 [facility] Comment on above: Performed By: #### 2 61499 #### [facility],[address] [place] [address] 20820 CMP with eGFRon 01-04-2024 AGE 33 years Normal [facility] Comment on above: Performed By: #### 2 00452 #### [facility],[address] [place] [address] 36375 Albumin [Mass/Vol] 3.9 g/dL Normal 3.4 - 5.0 [facility] Comment on above: Performed By: #### 2 98383 #### [facility],[address] [place] [address] 15496 Albumin/Globulin [Mass ratio] 1.2 {ratio} Normal 0.9 - 1.6 [facility] Comment on above: Performed By: #### 2 70428 #### [facility],[address] [place] [address] 75918 ALK PHOS 103 U/L Normal 46 - 116 [facility] Comment on above: Performed By: #### 2 67609 #### [facility],[address] [place] [address] 32049 ALT [Catalytic activity/Vol] 29 U/L Normal 16 - 63 [facility] Comment on above: Performed By: #### 2 80958 #### [facility],[address] [place] [address] 71952 Anion gap [Moles/Vol] 12 mmol/L Normal 10 - 20 [facility] Comment on above: Performed By: #### 2 18302 #### [facility],[address] [place] [address] 46215 AST [Catalytic activity/Vol] 18 U/L Normal 15 - 37 [facility] Comment on above: Performed By: #### 2 78583 #### [facility],[address] [place] [address] 56258 B/C RATIO 12 ratio Normal 0 - 30 [facility] Comment on above: Performed By: #### 2 10029 #### [facility],[address] [place] [address] 76635 Bilirubin [Mass/Vol] 0.3 mg/dL Normal 0.2 - 1.0 [facility] Comment on above: Performed By: #### 2 25250 #### [facility],[address] [place] [address] 33606 Calcium [Mass/Vol] 8.8 mg/dL Normal 8.5 - 10.1 [facility] Comment on above: Performed By: #### 2 86819 #### [facility],[address] [place] [address] 01670 Chloride [Moles/Vol] 103 mmol/L Normal 98 - 107 [facility] Comment on above: Performed By: #### 2 94979 #### [facility],[address] [place] [address] 08793 CMP with eGFR Normal [facility] Comment on above: Result Comment: COMP REHENSIVE METABOLIC PANEL Performed By: #### 2 38523 #### [facility],[address] [place] [address] 18412 CO2 [Moles/Vol] 26.7 mmol/L Normal 21.0 - 32.0 [facility] Comment on above: Performed By: #### 2 75884 #### [facility],[address] [place] [address] 62297 Creatinine [Mass/Vol] 0.83 mg/dL Normal 0.70 - 1.30 [facility] Comment on above: Performed By: #### 2 80812 #### [facility],[address] [place] [address] 51466 GFR/1.73 sq M.predicted among non-blacks MDRD (S/P/Bld) [Vol rate/Area] mL/min/{1.73_m2} Normal 60 - 999 [facility] Comment on above: Performed By: #### 2 30567 #### [facility],[address] [place] [address] 12363 Result Comment: ACCO RDING TO THE NATIONAL KIDNEY DISEASE EDUCATION PROGRAM(NKDE), A NORMAL eGFR IS A VALUE GREATER THAN OR EQUAL TO 60 ML/MIN/1.73 SQ METERS. CHRONIC KIDNEY DISEASE: <60mL/MIN/1.73 SQ METERS KIDNEY FAILURE: <15mL/MIN/1.73 SQ METERS THIS TEST SHOULD ONLY BE USED FOR PATIENTS 18 YEARS OF AGE AND OLDER. Globulin (S) [Mass/Vol] 3.3 g/dL Normal 1.5 - 3.8 [facility] Comment on above: Performed By: #### 2 46034 #### [facility],[address] [place] [address] 86242 Glucose [Mass/Vol] 122 mg/dL High 74 - 106 [facility] [facility] Comment on above: Performed By: #### 2 [id number] #### [facility],[address] [place] [address] 12493 Potassium [Moles/Vol] 4.0 mmol/L Normal 3.5 - 5.1 [facility] Comment on above: Performed By: #### 2 44943 #### [facility],[address] [place] [address] 53794 Protein [Mass/Vol] 7.2 g/dL Normal 6.4 - 8.2 [facility] Comment on above: Performed By: #### 2 37439 #### [facility],[address] [place] [address] Sodium [Moles/Vol] 138 mmol/L Normal 136 - 145 [facility] Comment on above: Performed By: #### 2 90998 #### [place] [address] Urea nitrogen [Mass/Vol] 10 mg/dL Normal 7 - 18 [facility] Comment on above: Performed By: #### 2 98514 #### [place] [address] CORONAVIRUS (SARS) ANTIGEN T ESTon 01-04-2024 EXTERNAL QC DONE? YES Normal [facility] Comment on above: Performed By: #### 2 55338 #### [place] [address] INTERNAL CONTROL PASS Normal [facility] Comment on above: Performed By: #### 2 03406 #### [place] [address] SARS ANTIGEN Negative Normal NORMAL: NEGATIVE [facility] Comment on above: Performed By: #### 2 03785 #### [place] [id number] SEND TO ? YES Normal [facility] Comment on above: Result Comment: SARS -CoV-2 THIS TEST IS BEING USED UNDER THE FDA EUA PROCEDURE. THIS ASSAY HAS BEEN VALIDATED AT [facility] FOR USE WITH NASAL AND NASOPHARYNGEAL SWAB SPECIMENS. INTERPRETIVE DATA TEST RESULTS SHOULD ALWAYS BE CONSIDERED IN THE CONTEXT OF CLINICAL OBSERVATIONS AND EPIDEMIOLOGICAL DATA IN MAKING FINAL DIAGNOSIS AND PATIENT MANAGEMENT DECISIONS. PATIENT MANAGEMENT SHOULD FOLLOW CURRENT CDC GUIDELINES. THE SNEHA SARS ANTIGEN ALEXANDREA DOES NOT DIFFERENTIATE BETWEEN SARS-CoV & SARS-CoV-2. A POSITIVE TEST RESULT INDICATES THE PRESENCE OF SARS-CoV-2 NUCLEOCAPSID PROTEIN ANTIGEN, AND THE PATIENT IS INFECTED WITH THE VIRUS AND PRESUMED TO BE CONTAGIOUS. A NEGATIVE TEST RESULT FOR THIS TEST MEANS THAT SARS-CoV-2 NUCLEOCAPSID PROTEIN ANTIGEN WAS NOT PRESENT IN THE SPECIMEN ABOVE THE LIMIT OF DETECTION. HOWEVER, A NEGATIVE RESULT DOES NOT RULE OUT COVID-19 AND SHOULD NOT BE USED THE SOLE BASIS FOR TREATMENT OR PATIENT MANAGEMENT DECISIONS. A NEGATIVE RESULT DOES NOT EXCLUDE THE POSSIBILITY OF COVID-19. NEGATIVE RESULTS, FROM PATIENTS WITH SYMPTOM ONSET BEYOND FIVE DAYS, SHOULD BE TREATED PRESUMPTIVE AND CONFIRMATION WITH A MOLECULAR ASSAY, IF NECESSARY, FOR PATIENT MANAGEMENT, MAY BE PERFORMED. WHEN DIAGNOSTIC TESTING IS NEGATIVE, THE POSSIBLILTY OF A FALSE NEGATIVE RESULT SHOULD BE CONSIDERED IN THE CONTEXT OF A PATIENT'S RECENT EXPOSURES AND THE PRESENCE OF CLINICAL SIGNS AND SYMPTOMS CONSISTENT WITH COVID-19. THE POSSIBILITY OF A FALSE NEGATIVE RESULT SHOULD ESPECIALLY BE CONSIDERED IF THE PATIENT'S RECENT EXPOSURES OR CLINICAL PRESENTATION INDICATE THAT COVID-19 IS LIKELY, AND DIAGNOSTIC TESTS FOR OTHER CAUSES OF ILLNESS (e.g., OTHER RESPIRATORY ILLNESS) ARE NEGATIVE. IF COVID-19 IS STILL SUSPECTED BASED ON EXPOSURE HISTORY TOGETHER WITH OTHER CLINICAL FINDINGS, RE-TESTING SHOULD BE CONSIDERED BY HEALTHCARE PROVIDERS IN CONSULTATION WITH PUBLIC HEALTH AUTHORITIES. Performed By: #### 2 36411 #### [place] [address] DRUG SCREEN URINE MEDICon AMPHETAMINES Positive Normal [facility] Comment on above: Performed By: #### 2 69090 #### [facility],[address] [place] [address] B-DIAZEPINES Negative Normal [facility] Comment on above: Performed By: #### 2 03441 #### [facility],[address] [place] [address] BARBITURATES Negative Normal [facility] Comment on above: Performed By: #### 2 03361 #### [facility],[address] [place] [address] COCAINE Negative Normal [facility] Comment on above: Performed By: #### 2 13733 #### [facility],[address] [place] [address] 85257 DRUG SCREEN URINE MEDIC Normal [facility] Comment on above: Result Comment: DRUG SCREEN - URINE Performed By: #### 2 76734 #### [facility],[address] [place] [address] 50300 METHADONE Negative Normal [facility] Comment on above: Performed By: #### 2 42036 #### [facility],[address] [place] [address] 54295 OPIATES Negative Normal [facility] Comment on above: Performed By: #### 2 92853 #### [facility],[address] [place] [address],[facility] [address] PCP Negative Normal [facility] Comment on above: Performed By: #### 2 33134 #### [facility],[address] [place] [address] 36272 THC Negative Normal [facility] Comment on above: Result Comment: QIANA ENTS RECEIVING PROTON PUMP INHIBITORS MAY DEMONSTRATE FALSE POSITIVE THC/CANNABINOID RESULTS. AN ALTERNATIVE CONFIRMATORY METHOD SHOULD BE CONSIDERED TO VERIFY POSITIVE RESULTS. Performed By: #### 2 77526 #### [facility],[address] [place] [address] 41870 URINALYSISon 01-04-2024 Amorphous NONE Normal [facility] Comment on above: Performed By: #### 2 48409 #### [facility],[address] [place] [address] 76282 Bacteria NONE Normal [facility] Comment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 ACUTE FINDINGS. Impression dictated by: Teresa Ocampo M.D.11/13/2023 1:02 PM Dictation Location: [place] [address] Transcribed By: SHANKAR 11/13/23 1302 Dictated By: Teresa Ocampo MD 11/13/23 1252 Signed By: 11/13/23 1302 Normal [facility] Calcium [Mass/volume] in Ser um or PlasmaOrdered By: Tommy Swanson on 11-13-2023 Calcium [Mass/Vol] 9.0 mg/dL 8.6-10.[address] [facility] Carbon dioxide, total [Moles /volume] in Serum or PlasmaOrdered By: Tommy Swanson on 11-13-2023 CO2 [Moles/Vol] 26.7 mmol/L 21.0-31.0 [facility] Chloride [Moles/volume] in S miles or PlasmaOrdered By: Tommy Swanson on 11-13-2023 Chloride [Moles/Vol] 107 mmol/L 98-107 [facility] Color Auto (U)Ordered By: Hank Swanson on 11-13-2023 Color (U) Dark yellow Yellow [facility] Complete Blood Count Auto Di ffon 11-13-2023 Basophils (Bld) [#/Vol] 0.1 10*3/uL Normal 0.0-0.2 [facility] Comment on above: Result Comment: PERF ORMED BY: [place] [address] PATHOLOGIST ELECTRONIC ENGRAVER NASIR TOBAR M.D. Performed By: #### B PHLEBOTOMY SUPERVISOR, HS TROP, PT, PTT, LIPASE, CK, CMP, CBC #### [address] Basophils/100 WBC (Bld) 1.0 % Normal . [facility] Comment on above: Performed By: #### B PHLEBOTOMY SUPERVISOR, HS TROP, PT, PTT, LIPASE, CK, CMP, CBC #### [address] Eosinophils (Bld) [#/Vol] 0.3 10*3/uL Normal 0.0-0.45 [facility] Comment on above: Performed By: #### B PHLEBOTOMY SUPERVISOR, HS TROP, PT, PTT, LIPASE, CK, CMP, CBC #### [address] Eosinophils/100 WBC (Bld) 3.8 % Normal . [facility] Comment on above: Performed By: #### B PHLEBOTOMY SUPERVISOR, HS TROP, PT, PTT, LIPASE, CK, CMP, CBC #### [address] Erythrocyte distribution width (RBC) [Ratio] 13.5 % Normal 12.0-14.8 [facility] Comment on above: Performed By: #### B PHLEBOTOMY SUPERVISOR, HS TROP, PT, PTT, LIPASE, CK, CMP, CBC #### [address] Hematocrit (Bld) [Volume fraction] 41.9 % Normal 38.8-50.0 [facility] Comment on above: Performed By: #### B PHLEBOTOMY SUPERVISOR, HS TROP, PT, PTT, LIPASE, CK, CMP, CBC #### [address] Hemoglobin (Bld) [Mass/Vol] 14.3 g/dL Normal 13.0-17.0 [facility] Comment on above: Performed By: #### B PHLEBOTOMY SUPERVISOR, HS TROP, PT, PTT, LIPASE, CK, CMP, CBC #### [address] Lymphocytes (Bld) [#/Vol] 1.9 10*3/uL Normal 1.00-4.8 [facility] Comment on above: Performed By: #### B PHLEBOTOMY SUPERVISOR, HS TROP, PT, PTT, LIPASE, CK, CMP, CBC #### [address] Lymphocytes/100 WBC (Bld) 25.2 % Normal . [facility] Comment on above: Performed By: #### B PHLEBOTOMY SUPERVISOR, HS TROP, PT, PTT, LIPASE, CK, CMP, CBC #### [address] MCH (RBC) [Entitic mass] 32.1 pg Normal 27.5-35.2 [facility] Comment on above: Performed By: #### B PHLEBOTOMY SUPERVISOR, HS TROP, PT, PTT, LIPASE, CK, CMP, CBC #### [address] MCV (RBC) [Entitic vol] 94.3 fL Normal 83.5-101 [facility] Comment on above: Performed By: #### B PHLEBOTOMY SUPERVISOR, HS TROP, PT, PTT, LIPASE, CK, CMP, CBC #### [address] Mean Corpuscular HGB Conc 34.1 g/dL Normal 32.5-35.6 [facility] Comment on above: Performed By: #### B PHLEBOTOMY SUPERVISOR, HS TROP, PT, PTT, LIPASE, CK, CMP, CBC #### [address] Monocytes (Bld) [#/Vol] 1.0 10*3/uL High 0.0-0.8 [facility] Comment on above: Performed By: #### B PHLEBOTOMY SUPERVISOR, HS TROP, PT, PTT, LIPASE, CK, CMP, CBC #### [address] Monocytes/100 WBC (Bld) 19.61 % Normal 0.00-20.00 [facility] Comment on above: Performed By: #### B PHLEBOTOMY SUPERVISOR, HS TROP, PT, PTT, LIPASE, CK, CMP, CBC #### [address] Monocytes/100 WBC (Bld) 13.8 % Normal . [facility] Comment on above: Performed By: #### B PHLEBOTOMY SUPERVISOR, HS TROP, PT, PTT, LIPASE, CK, CMP, CBC #### [address] Neutrophils (Bld) [#/Vol] 4.2 10*3/uL Normal 1.8-7.7 [facility] Comment on above: Performed By: #### B PHLEBOTOMY SUPERVISOR, HS TROP, PT, PTT, LIPASE, CK, CMP, CBC #### [address] Neutrophils/100 WBC (Bld) 56.2 % Normal . [facility] Comment on above: Performed By: #### B PHLEBOTOMY SUPERVISOR, HS TROP, PT, PTT, LIPASE, CK, CMP, CBC #### [address] NRBC% 0.1 /100{WBC} Normal 0-0.5 [facility] Comment on above: Performed By: #### B PHLEBOTOMY SUPERVISOR, HS TROP, PT, PTT, LIPASE, CK, CMP, CBC #### [address] Platelet mean volume (Bld) [Entitic vol] 6.7 fL Normal 6.6-10.1 [facility] Comment on above: Performed By: #### B PHLEBOTOMY SUPERVISOR, HS TROP, PT, PTT, LIPASE, CK, CMP, CBC #### [address] Platelets (Bld) [#/Vol] 323 10*3/uL Normal 150-450 [facility] Comment on above: Performed By: #### B PHLEBOTOMY SUPERVISOR, HS TROP, PT, PTT, LIPASE, CK, CMP, CBC #### [address] RBC (Bld) [#/Vol] 4.44 10*6/uL Normal 3.90-5.60 [facility] Comment on above: Performed By: #### B PHLEBOTOMY SUPERVISOR, HS TROP, PT, PTT, LIPASE, CK, CMP, CBC #### [address] WBC (Bld) [#/Vol] 7.6 10*3/uL Normal 4.1-10.5 [facility] Comment on above: Performed By: #### B PHLEBOTOMY SUPERVISOR, HS TROP, PT, PTT, LIPASE, CK, CMP, CBC #### [address] Comprehensive Metabolic Pane jacobo 11-13-2023 Albumin [Mass/Vol] 4.0 g/dL Normal 3.5-5.7 [facility] Comment on above: Performed By: #### B PHLEBOTOMY SUPERVISOR, HS TROP, PT, PTT, LIPASE, CK, CMP, CBC #### [address] Albumin/Globulin [Mass ratio] 1.7 {ratio} Normal [facility] Comment on above: Performed By: #### B PHLEBOTOMY SUPERVISOR, HS TROP, PT, PTT, LIPASE, CK, CMP, CBC #### [address] ALP [Catalytic activity/Vol] 60 U/L Normal 34-104 [facility] Comment on above: Performed By: #### B PHLEBOTOMY SUPERVISOR, HS TROP, PT, PTT, LIPASE, CK, CMP, CBC #### [address] ALT [Catalytic activity/Vol] 15 U/L Normal 7-52 [facility] Comment on above: Performed By: #### B PHLEBOTOMY SUPERVISOR, HS TROP, PT, PTT, LIPASE, CK, CMP, CBC #### [address] Anion gap [Moles/Vol] 8.2 mmol/L Normal 6.0-15.0 [facility] Comment on above: Performed By: #### B PHLEBOTOMY SUPERVISOR, HS TROP, PT, PTT, LIPASE, CK, CMP, CBC #### [address] AST [Catalytic activity/Vol] 14 U/L Normal 13-39 [facility] Comment on above: Performed By: #### B PHLEBOTOMY SUPERVISOR, HS TROP, PT, PTT, LIPASE, CK, CMP, CBC #### [address] Bilirubin [Mass/Vol] 0.5 mg/dL Normal 0.3-1.0 [facility] Comment on above: Performed By: #### B PHLEBOTOMY SUPERVISOR, HS TROP, PT, PTT, LIPASE, CK, CMP, CBC #### [address] Calcium [Mass/Vol] 9.0 mg/dL Normal 8.6-10.3 [facility] Comment on above: Performed By: #### B PHLEBOTOMY SUPERVISOR, HS TROP, PT, PTT, LIPASE, CK, CMP, CBC #### [address] Chloride [Moles/Vol] 107 mmol/L Normal 98-107 [facility] Comment on above: Performed By: #### B PHLEBOTOMY SUPERVISOR, HS TROP, PT, PTT, LIPASE, CK, CMP, CBC #### [address] CO2 [Moles/Vol] 26.7 mmol/L Normal 21.0-31.0 [facility] Comment on above: Performed By: #### B PHLEBOTOMY SUPERVISOR, HS TROP, PT, PTT, LIPASE, CK, CMP, CBC #### [address] Creatinine [Mass/Vol] 1.03 mg/dL Normal 0.70-1.30 [facility] Comment on above: Performed By: #### B PHLEBOTOMY SUPERVISOR, HS TROP, PT, PTT, LIPASE, CK, CMP, CBC #### [address] Creatinine Clr Calc Pharmacy 94.15 Normal [facility] Comment on above: Performed By: #### B PHLEBOTOMY SUPERVISOR, HS TROP, PT, PTT, LIPASE, CK, CMP, CBC #### [address] GFR/1.73 sq M.predicted MDRD (S/P/Bld) [Vol rate/Area] mL/min/{1.73_m2} Normal [facility] Comment on above: Performed By: #### B PHLEBOTOMY SUPERVISOR, HS TROP, PT, PTT, LIPASE, CK, CMP, CBC #### [address] Globulin (S) [Mass/Vol] 2.3 g/dL Normal [facility] Comment on above: Performed By: #### B PHLEBOTOMY SUPERVISOR, HS TROP, PT, PTT, LIPASE, CK, CMP, CBC #### [address] Glucose [Mass/Vol] 80 mg/dL Normal 70-100 [facility] Comment on above: Result Comment: [place] Glucose Reference Range is dependent on time and content of last meal. Glucose of more than 200 mg/dL in a nonstressed, ambulatory subject supports the diagnosis of Diabetes Mellitus. ADA recommended reference range Performed By: #### B PHLEBOTOMY SUPERVISOR, HS TROP, PT, PTT, LIPASE, CK, CMP, CBC #### [address] Potassium [Moles/Vol] 3.9 mmol/L Normal 3.5-5.1 [facility] Comment on above: Performed By: #### B PHLEBOTOMY SUPERVISOR, HS TROP, PT, PTT, LIPASE, CK, CMP, CBC #### [address] Protein [Mass/Vol] 6.3 g/dL Low 6.4-8.9 [facility] Comment on above: Performed By: #### B PHLEBOTOMY SUPERVISOR, HS TROP, PT, PTT, LIPASE, CK, CMP, CBC #### [address] Sodium [Moles/Vol] 138 mmol/L Normal 136-145 [facility] Comment on above: Performed By: #### B PHLEBOTOMY SUPERVISOR, HS TROP, PT, PTT, LIPASE, CK, CMP, CBC #### [address] Urea nitrogen [Mass/Vol] 10 mg/dL Normal 7-25 [facility] Comment on above: Performed By: #### B PHLEBOTOMY SUPERVISOR, HS TROP, PT, PTT, LIPASE, CK, CMP, CBC #### [address] Creatine Kinaseon 11-13-2023 CK [Catalytic activity/Vol] 57 U/L Normal [facility] Comment on above: Performed By: #### B PHLEBOTOMY SUPERVISOR, HS TROP, PT, PTT, LIPASE, CK, CMP, CBC #### [address] Creatine kinase [Enzymatic a ctivity/volume] in Serum or PlasmaOrdered By: Tommy Swanson on 11-13-2023 CK [Catalytic activity/Vol] 57 U/L 30- [facility] Creatinine [Mass/volume] in Serum or PlasmaOrdered By: Tommy Swanson on 11-13-2023 Creatinine [Mass/Vol] 1.03 mg/dL 0.70-1.30 [facility] Dipstick and Microscopicon 0 11-13-2023 Appearance (U) Turbid Critically abnormal Clear [facility] Comment on above: Order Comment: Name Collection Type:: Clean-Voided Midstream Performed By: #### A DDONUAPLUS #### [address] Bacteria,Urine None Seen Normal None Seen [facility] Comment on above: Order Comment: Name Collection Type:: Clean-Voided Midstream Performed By: #### A DDONUAPLUS #### [place] [address] [place] Bilirubin,Urine 1+ High Negative [facility] Comment on above: Order Comment: Name Collection Type:: Clean-Voided Midstream Performed By: #### A DDONUAPLUS #### [address] Color (U) Dark Yellow Critically abnormal Yellow [facility] Comment on above: Order Comment: Name Collection Type:: Clean-Voided Midstream Performed By: #### A DDONUAPLUS #### [address] Glucose Ql (U) Normal Normal Normal [facility] Comment on above: Order Comment: Name Collection Type:: Clean-Voided Midstream Performed By: #### A DDONUAPLUS #### [place] [address] [place] Hyaline Casts,Urine 0-8 Normal 0-8 [facility] Comment on above: Order Comment: Name Collection Type:: Clean-Voided Midstream Result Comment: PERF ORMED BY: [place] [address] PATHOLOGIST ELECTRONIC ENGRAVER NASIR TOBAR M.D. Performed By: #### A DDONUAPLUS #### [place] [address] [place] Ketones Ql (U) Trace High Negative [facility] Comment on above: Order Comment: Name Collection Type:: Clean-Voided Midstream Performed By: #### A DDONUAPLUS #### [place] [address] [place] Leukocyte esterase Test strip Ql (U) 1+ High Negative [facility] Comment on above: Order Comment: Name Collection Type:: Clean-Voided Midstream Performed By: #### A DDONUAPLUS #### [place] [address] [place] Nitrite,Urine Negative Normal Negative [facility] Comment on above: Order Comment: Name Collection Type:: Clean-Voided Midstream Performed By: #### A DDONUAPLUS #### [address] Occult Blood,Urine Negative Normal Negative [facility] Comment on above: Order Comment: Name Collection Type:: Clean-Voided Midstream Result Comment: PERF ORMED BY: [place] [address] PATHOLOGIST ELECTRONIC ENGRAVER NASIR TOBAR M.D. Performed By: #### A DDONUAPLUS #### [address] pH (U) 8.5 [pH] Normal 5.0-9.0 [facility] Comment on above: Order Comment: Name Collection Type:: Clean-Voided Midstream Performed By: #### A DDONUAPLUS #### [place] [address] [place] Protein,Urine Trace High Negative [facility] Comment on above: Order Comment: Name Collection Type:: Clean-Voided Midstream Performed By: #### A DDONUAPLUS #### [place] [address] [place] RBC LM.HPF (Urine sed) [#/Area] 0 /[HPF] Normal 0-4 [facility] Comment on above: Order Comment: Name Collection Type:: Clean-Voided Midstream Performed By: #### A DDONUAPLUS #### [place] [address] [place] Specificy [place],Urine 1.026 Normal 1.001-1.030 [facility] Comment on above: Order Comment: Name Collection Type:: Clean-Voided Midstream Performed By: #### A DDONUAPLUS #### [place] [id number] [place] Squamous Epithelial Cell,Urine 0-1 Normal 0-2 [facility] Comment on above: Order Comment: Name Collection Type:: Clean-Voided Midstream Performed By: #### A DDONUAPLUS #### [facility] [address] [place] [address] Urobilinogen,Urine >=2 High Normal [facility] Comment on above: Order Comment: Name Collection Type:: Clean-Voided Midstream Performed By: #### A DDONUAPLUS #### [facility] [address] [place] [address] WBC,Urine 3-4 Normal 0-4 [facility] Comment on above: Order Comment: Name Collection Type:: Clean-Voided Midstream Performed By: #### A DDONUAPLUS #### [address] ECG 12 lead ECGon 11-13-2023 ECG 12 lead ECG [facility] [place] [address] Electrocardiograph Report Signed Patient: Faustino Unger MR#: [id number] : 1990 Acct:[id number] Age/Sex: 33 / M ADM Date: 11/13/23 Loc: ER Room: Type: [facility] ER Attending Dr: Ordering Provider: Tommy Swanson DO Date of Service: 11/13/23 ECG/ECG 12 lead ECG: EKG Copies to: Test Reason : Blood Pressure : / mmHG Vent. Rate : 070 BPM Atrial Rate : 070 BPM P-R Int : 116 ms QRS Dur : 084 ms QT Int : 372 ms P-R-T Axes : 058 076 076 degrees QTc Int : 401 ms Normal sinus rhythm Confirmed by Tommy SWANSON DO ([id number]) on 11/13/2023 3:23:03 PM Referred By: Electronically Signed By:Tommy SWANSON DO Transcribed By: MUS Signed By Tommy Swanson DO 0 11/13/23 1523 Normal [facility] Eosinophils Auto (Bld) [#/Vo l]Ordered By: Tommy Swanson on 11-13-2023 Eosinophils (Bld) [#/Vol] 0.3 10*3/uL 0.0-0.45 [facility] Eosinophils/100 WBC Auto (Bl d)Ordered By: Tommy Swanson on 11-13-2023 Eosinophils/100 WBC (Bld) 3.8 % . [facility] Erythrocyte distribution wid th Auto (RBC) [Ratio]Ordered By: Tommy Swanson on 11-13-2023 Erythrocyte distribution width (RBC) [Ratio] 13.5 % 12.0-14.8 [facility] Globulin Calc (S) [Mass/Vol] Ordered By: Tommy Swanson on 11-13-2023 Globulin (S) [Mass/Vol] 2.3 g/dL [facility] Glucose [Mass/volume] in Ser um or PlasmaOrdered By: Tommy Swanson on 11-13-2023 Glucose [Mass/Vol] 80 mg/dL 70-[address] [facility] Comment on above: ADA recommended refe rence rangeRandom Glucose Reference Range is dependent on time and content of last meal. Glucose of more than 200 mg/dL in a nonstressed, ambulatory subject supports the diagnosis of Diabetes Mellitus. Hematocrit Auto (Bld) [Volum e fraction]Ordered By: Tommy Swanson on 11-13-2023 Hematocrit (Bld) [Volume fraction] 41.9 % 38.8-50.0 [facility] Hemoglobin [Mass/volume] in BloodOrdered By: Tommy Swanson 11-13-2023 Hemoglobin (Bld) [Mass/Vol] 14.3 g/dL 13.0-17.0 [facility] INR in Platelet poor plasma by Coagulation assayOrdered By: Tommy Swanson on 11-13-2023 INR Coag (PPP) [Relative time] 1.1 {INR} [facility] Comment on above: INR Therapeutic Rang e A) Pre- and Peroperative OAT started two weeks before surgery. NOT HIP SURGERY: 1.5 - 2.5 HIP SURGERY: 2 - 3B) Primary and secondary prevention of venous THROMBOSIS: 2 - 3C) Active venous thrombosis, pulmonary embolismand prevention of recurrent venous thrombosis: 2 - 3D) Prevention of arterial thromboembolismincluding patients with mechanical heart valves: 3 - 4.5 Ketones Auto test strip (U) [Mass/Vol]Ordered By: Tommy Swanson on 11-13-2023 Ketones (U) [Mass/Vol] Trace Negative [facility] - UrinalysisOrder ed By: Tommy Swanson on 11-13-2023 Hyaline casts LM Ql (Urine sed) 0-8 [LPF] 0-8 [facility] Leukocytes [#/volume] correc sylvie for nucleated erythrocytes in Blood by Automated counOrdered By: Tommy Swanson on 11-13-2023 WBC corrected for nucl RBC Auto (Bld) [#/Vol] 7.6 10*3/uL 4.1-10.5 [facility] Lipaseon 11-13-2023 Lipase [Catalytic activity/Vol] 49.0 U/L Normal 11.0-82.0 [facility] Comment on above: Result Comment: PERF ORMED BY: [place] [address] PATHOLOGIST ELECTRONIC ENGRAVER NASIR TOBAR M.D. Performed By: #### B PHLEBOTOMY SUPERVISOR, HS TROP, PT, PTT, LIPASE, CK, CMP, CBC #### [facility] [address] Lipase [Enzymatic activity/v olume] in Serum or PlasmaOrdered By: Tommy Swanson on 11-13-2023 Lipase [Catalytic activity/Vol] 49.0 U/L 11.0-82.0 [facility] Lymphocytes Auto (Bld) [#/Vo l]Ordered By: Tommy Swanson on 11-13-2023 Lymphocytes (Bld) [#/Vol] 1.9 10*3/uL 1.00-4.8 [facility] Lymphocytes/100 WBC Auto (Bl d)Ordered By: Tommy Swanson on 11-13-2023 Lymphocytes/100 WBC (Bld) 25.2 % . [facility] MCH Auto (RBC) [Entitic mass ]Ordered By: Tommy Swanson on 11-13-2023 MCH (RBC) [Entitic mass] 32.1 pg 27.5-35.2 [facility] MCHC Auto (RBC) [Mass/Vol]Or dered By: Tommy Swanson on 11-13-2023 MCHC (RBC) [Mass/Vol] 34.1 g/dL 32.5-35.6 [facility] MCV Auto (RBC) [Entitic vol] Ordered By: Tommy Swanson on 11-13-2023 MCV (RBC) [Entitic vol] 94.3 fL 83.5-101 [facility] Monocyte distribution width [Entitic volume] in Blood by AutomatedOrdered By: Tommy Swanson on 11-13-2023 Monocyte distribution width Auto (Bld) [Entitic vol] 19.61 % 0.00-20.00 [facility] Monocytes Auto (Bld) [#/Vol] Ordered By: Tommy Swanson on 11-13-2023 Monocytes (Bld) [#/Vol] 1.0 10*3/uL 0.0-0.8 [facility] Monocytes/100 WBC Auto (Bld) Ordered By: Tommy Swanson on 11-13-2023 Monocytes/100 WBC (Bld) 13.8 % . [facility] Natriuretic peptide B [Mass/ Vol]Ordered By: Tommy Swanson on 11-13-2023 Natriuretic peptide B (Bld) [Mass/Vol] 18.0 pg/mL 5-100 [facility] Neutrophils Auto (Bld) [#/Vo l]Ordered By: Tommy Swanson on 11-13-2023 Neutrophils (Bld) [#/Vol] 4.2 10*3/uL 1.8-7.7 [facility] Neutrophils/100 WBC Auto (Bl d)Ordered By: Tommy Swanson on 11-13-2023 Neutrophils/100 WBC (Bld) 56.2 % . [facility] Nitrite Test strip Ql (U)Ord ered By: Tommy Swanson on 11-13-2023 Nitrite Ql (U) Negative Negative [facility] No Panel InformationOrdered By: Tommy Swanson on 11-13-2023 Estimated GFR (CKD-EPI) > 60.0 mL/Min [facility] Creatinine Clearance (Chem 94.15 [facility] Nucleated erythrocytes [Pres ence] in Blood by Automated countOrdered By: Tommy Swanson on 11-13-2023 Nucleated RBC Auto Ql (Bld) 0.1 /100{WBC} 0-0.5 [facility] Partial Thromboplastin Timeo n 04-25-2024 aPTT Coag (Bld) [Time] 28.7 s Normal 25.1-36.5 [facility] Comment on above: Result Comment: A he matocrit value greater than 55% may lead to inaccurate results in coagulation testing. Patients having hematocrit values >55% require a special collection tube for coagulation studies. Please contact the laboratory at [phone] for redraw instructions. PERFORMED BY: [facility] [address] [place] [address] PATHOLOGIST ELECTRONIC ENGRAVER NASIR TOBAR M.D. Performed By: #### B PHLEBOTOMY SUPERVISOR, HS TROP, PT, PTT, LIPASE, CK, CMP, CBC #### [facility] [address] [place] [address] Platelet mean volume Auto (B ld) [Entitic vol]Ordered By: Tommy Swanson on 11-13-2023 Platelet mean volume (Bld) [Entitic vol] 6.7 fL 6.6-10.1 [facility] Platelets Auto (Bld) [#/Vol] Ordered By: Tommy Swanson on 11-13-2023 Platelets (Bld) [#/Vol] 323 10*3/uL 150-450 [facility] Potassium [Moles/volume] in Serum or PlasmaOrdered By: Tommy Swanson on 11-13-2023 Potassium [Moles/Vol] 3.9 mmol/L 3.5-5.1 [facility] Protein Auto test strip (U) [Mass/Vol]Ordered By: Tommy Swanson on 11-13-2023 Protein (U) [Mass/Vol] Trace mg/dL Negative [facility] Protein [Mass/volume] in Ser um or PlasmaOrdered By: Tommy Swanson on 11-13-2023 Protein [Mass/Vol] 6.3 g/dL 6.4-8.[address] [facility] Prothrombin Time INRon 11-12 INR Coag (PPP) [Relative time] 1.1 {INR} Normal [facility] Comment on above: Result Comment: INR Therapeutic Range A) Pre- and Peroperative OAT started two weeks before surgery. NOT HIP SURGERY: 1.5 - 2.5 HIP SURGERY: 2 - 3 B) Primary and secondary prevention of venous THROMBOSIS: 2 - 3 C) Active venous thrombosis, pulmonary embolism and prevention of recurrent venous thrombosis: 2 - 3 D) Prevention of arterial thromboembolism including patients with mechanical heart valves: 3 - 4.5 Performed By: #### B PHLEBOTOMY SUPERVISOR, HS TROP, PT, PTT, LIPASE, CK, CMP, CBC #### [facility] [address] [place] [id number] [facility] PT Coag (PPP) [Time] 12.6 s Normal 9.0-12.9 [facility] Comment on above: Result Comment: A he matocrit value greater than 55% may lead to inaccurate results in coagulation testing. Patients having hematocrit values >55% require a special collection tube for coagulation studies. Please contact the laboratory at [phone] for redraw instructions. Performed By: #### B PHLEBOTOMY SUPERVISOR, HS TROP, PT, PTT, LIPASE, CK, CMP, CBC #### [facility] [address] [place] [id number] [facility] Prothrombin time (PT)Ordered By: Tommy Swanson on 11-13-2023 PT Coag (PPP) [Time] 12.6 s 9.0-12.9 [facility] Comment on above: A hematocrit value g reater than 55% may lead to inaccurate results in coagulation testing. Patients having hematocrit values >55% require a special collection tube for coagulation studies. Please contact the laboratory at [phone] for redraw instructions. RBC Auto (Bld) [#/Vol]Ordere d By: Tommy Swanson on 11-13-2023 RBC (Bld) [#/Vol] 4.44 10*6/uL 3.90-5.60 [facility] Serum or plasma albumin/glob ulin mass ratioOrdered By: Tommy Swanson on 11-13-2023 Albumin/Globulin [Mass ratio] 1.7 {ratio} [facility] Serum or plasma anion gap de terminationOrdered By: Tommy Swanson on 11-13-2023 Anion gap [Moles/Vol] 8.2 mmol/L 6.0-15.0 [facility] Sodium [Moles/volume] in Ser um or PlasmaOrdered By: Tommy Swanson on 11-13-2023 Sodium [Moles/Vol] 138 mmol/L 136-[address] [facility] Specific gravity Auto test s trip (U) [Rel density]Ordered By: Tommy Swanson on 11-13-2023 Specific gravity (U) [Rel density] 1.026 1.001-1.030 [facility] Squamous epithelial cells de tection in urine sediment by light microscopyOrdered By: Tommy Swanson on 11-13-2023 Epithelial cells.squamous LM Ql (Urine sed) 0-1 [HPF] 0-2 [facility] Troponin I High Sensitivityo n 11-13-2023 Troponin I High Sensitivity 3.2 pg/mL Normal 0.0-20.0 [facility] Comment on above: Result Comment: PERF ORMED BY: [place] [address] PATHOLOGIST ELECTRONIC ENGRAVER NASIR TOBAR M.D. Performed By: #### B PHLEBOTOMY SUPERVISOR, HS TROP, PT, PTT, LIPASE, CK, CMP, CBC #### [facility] [address] [place] [address] Troponin I.cardiac [Mass/vol ume] in Serum or Plasma by Detection limit <= 0.01 ng/Ordered By: Tommy Swanson on 11-13-2023 Troponin I.cardiac DL <= 0.01 ng/mL [Mass/Vol] 3.2 pg/mL 0.0-20.0 [facility] Urea nitrogen [Mass/volume] in Serum or PlasmaOrdered By: Tommy Swanson on 11-13-2023 Urea nitrogen [Mass/Vol] 10 mg/dL 02-11 [facility] Urine bacteria detection by automated methodOrdered By: Tommy Swanson on 11-13-2023 Bacteria Auto Ql (U) None seen None Seen [facility] Urine clarity by refractomet ry automatedOrdered By: Tommy Swanson on 11-13-2023 Clarity Refractometry automated (U) Turbid Clear [facility] Urine glucose measurement by automated test strip (mass/volume)Ordered By: Tommy Swanson on 11-13-2023 Glucose Auto test strip (U) [Mass/Vol] Normal mg/dL Normal [facility] Urine hemoglobin detection b y automated test stripOrdered By: Tommy Swanson on 11-13-2023 Hemoglobin Auto test strip Ql (U) Negative Negative [facility] Urine leukocyte esterase det ection by automated test stripOrdered By: Tommy Swanson on 11-13-2023 Leukocyte esterase Auto test strip Ql (U) 1+ Negative [facility] Urobilinogen Auto test strip (U) [Mass/Vol]Ordered By: Tommy Swanson on 11-13-2023 Urobilinogen (U) [Mass/Vol] mg/dL Normal [facility] WBC Auto (Bld) [#/Vol]Ordere d By: Tommy Swanson on 11-13-2023 WBC (Bld) [#/Vol] 7.6 10*3/uL 4.1-10.[address] [facility] pH Auto test strip (U)Ordere d By: Tommy Swanson on 11-13-2023 pH (U) 8.5 [pH] 5.0-9.0 [facility] ALLIED HEALTHon 10-18-2023 ALLIED HEALTH HNO ID: [id number] Author: BRANDON HUDDLESTON RT(R) Service: Radiology Author Type: Technologist Type: Allied Health Filed: 10/18/2023 13:04 Note Text: Radiology Service Progress Note PATIENT NAME: Faustino Unger DATE OF SERVICE: October 18, 2023 TIME: 1:04 PM PATIENT IDENTITY VERIFICATION COMPLETED USING TWO (2) IDENTIFIERS: Name and Date of confirmed by patient verbally and Name and Date of confirmed by identification band. FALL SCREENING: Has the patient had 2 falls in the last year or 1 fall with injury or currently using an Ambulatory Assistive Device (Walker, Cane, Wheelchair, Crutches, etc.)? Emergency Room Patient: Screened in ED PATIENT GENDER DATA: Male PATIENT RELEVANT IMPLANT DATA REVIEWED: Not Applicable PATIENT PRESENTS WITH AN IMPLANTABLE OR ATTACHED PROFESSIONAL CASTER: No RADIOLOGY DEPARTMENT: General X-ray: Exam(s) Completed: Chest X-Ray PERIPHERAL IV DATA: Not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 adult History reviewed. No pertinent surgical history. No family history on file. Social History Tobacco Use Smoking status: Every Day Packs/day: .25 Types: Cigarettes Smokeless tobacco: Never Vaping Use Vaping Use: Some days Substances: Nicotine, Flavoring Substance and Sexual Activity Alcohol use: Not Currently Comment: rarely Drug use: Never Sexual activity: Not on file ALLERGIES Allergen Reactions Antihistimine Mental Status Change Metoclopramide Mental Status Change, Other: See Comments Mobic [Meloxicam] Anaphylaxis Prochlorperazine Mental Status Change, Other: See Comments Shellfish Derived Diarrhea Review of Systems Constitutional: Negative for chills and fever. Skin: Positive for color change and wound. Negative for pallor and rash. Allergic/Immunologic: Positive for food allergies. All other systems reviewed and are negative. Physical Exam Vitals [08/31/23 2323] BP Pulse Temp Temp src Resp SpO2 Weight Height 142/93 (!) 99 36.6 ?C (97.8 ?F) Temporal 16 98 % 59 kg (130 lb) -- Physical Exam Vitals and nursing note reviewed. Constitutional: General: He is not in acute distress. Appearance: Normal appearance. He is not ill-appearing, toxic-appearing or diaphoretic. HENT: Head: Normocephalic and atraumatic. Mouth/Throat: Mouth: Mucous membranes are moist. Eyes: Conjunctiva/sclera: Conjunctivae normal. Cardiovascular: Rate and Rhythm: Normal rate. Pulses: Normal pulses. Pulmonary: Effort: Pulmonary effort is normal. No respiratory distress. Skin: General: Skin is warm and dry. Capillary Refill: Capillary refill takes less than 2 seconds. Findings: Erythema present. No bruising. Comments: Red puncture site, non-tender. No fluctuance. Superficial vein thrombosed in right AC. Exam c/w superficial thrombophlebitis. Mild cellulitic change at puncture site. No fluctuance. Neurological: Mental Status: He is alert and oriented to person, place, and time. Psychiatric: Mood and Affect: Mood normal. Diagnostic Testing ED Labs Ordered and Reviewed - No data to display Procedures ED Course / Clinical Impression Clinical Impressions as of 08/31/23 2354 Thrombophlebitis Wound infection MDM / Disposition / Plan 33-year-old male, HIV positive, with superficial thrombophlebitis and wound infection. Discussed treatment and will start the patient on Bactrim and mupirocin. Warm compresses at home. D/c to f/u with PCP. Differential Diagnoses - Superficial thrombophlebitis is more likely for the following reason(s): History and exam - Wound infection is more likely for the following reason(s): History and exam - Abscess is less likely for the following reason(s): HANDP not suggestive - DVT is less likely for the following reason(s): HANDP not suggestive Management Meds Given During Visit ED Medication Administration from 08/31/2023 2316 to 09/01/2023 0000 Date/Time Order Dose Route Action 08/31/2023 2359 EST sulfamethoxazole-trimethop rim 800-160 mg 1 tablet (BACTRIM DS) 1 tablet ORAL Given SIGNATURE: MD Lamont Valdez PETER 09/01/23 0000 Normal [facility] No Panel Informationon 01-28 [facility] MRI FOOT/TOES WO/W IVCON RTo n 08-01-2022 [facility] XR Toes - right 3 Viewson IMPRESSION: Soft tissue calcifications adjacent to the first interphalangeal joint. Housekeeping Department Worker: MIRIAN Transcribe Date/Time: Jun 19 2022 2:10P Dictated by : TIMOTHY BECKHAM MD This examination was interpreted and the report reviewed and electronically signed by: TIMOTHY BECKHAM MD on Jun 19 2022 2:11PM [facility] DIVISION OF RADIOLOGY * * *Final Report* * * DATE OF EXAM: Jun 19 2022 1:57PM WOX 5269 - XR TOE 3V AP/LAT/OBL RT / PROCEDURE REASON: Pain of toe of right foot * * * * Physician Interpretation * * * * TITLE: XR TOE 3V AP/LAT/OBL RT CLINICAL INDICATION: Pain TECHNIQUE: 3 view radiographic study of the right great toe COMPARISON: None FINDINGS: No acute fracture or dislocation identified. Joint spaces preserved. No osseous erosion or periostitis. There are rounded soft tissue calcifications along the lateral and plantar aspect of the first interphalangeal joint. DIVISION OF RADIOLOGY Provider, [facility] - 06/19/2022 * * *Final Report* * * DATE OF EXAM: Jun 19 2022 1:57PM WOX 5269 - XR TOE 3V AP/LAT/OBL RT / PROCEDURE REASON: Pain of toe of right foot * * * * Physician Interpretation * * * * TITLE: XR TOE 3V AP/LAT/OBL RT CLINICAL INDICATION: Pain TECHNIQUE: 3 view radiographic study of the right great toe COMPARISON: None FINDINGS: No acute fracture or dislocation identified. Joint spaces preserved. No osseous erosion or periostitis. There are rounded soft tissue calcifications along the lateral and plantar aspect of the first interphalangeal joint. IMPRESSION IMPRESSION: Soft tissue calcifications adjacent to the first interphalangeal joint. Housekeeping Department Worker: PSCB Transcribe Date/Time: Jun 19 2022 2:10P Dictated by : TIMOTHY BECKHAM MD This examination was interpreted and the report reviewed and electronically signed by: TIMOTHY BECKHAM MD on Jun 19 2022 2:11PM EST [facility] Radiology Study observation (narrative) [facility] XR Toes - right 3 ViewsOrder ed By: [facility] Provider on 06-19-2022 [facility] Vital Signs Date Time Vital Sign Value Performing Clinician Facility 03-23-2024 11:39-0400 Body height 172.7 cm Mariza Hayes APRN.LAP GRINDER Work Phone: [facility] 03-23-2024 11:39-0400 Body mass index (BMI) [Ratio] 23.63 kg/m2 Mariza Abigail ASSISTANT TENNIS COACH.LAP GRINDER Work Phone: [facility] 03-23-2024 11:39-0400 Body temperature 99.1 [degF] Mariza Abigail ASSISTANT TENNIS COACH.LAP GRINDER Work Phone: [facility] 03-23-2024 11:39-0400 Body weight 70.49 kg Mariza Abigail ASSISTANT TENNIS COACH.LAP GRINDER Work Phone: [facility] 03-23-2024 11:39-0400 Diastolic blood pressure 84 mm[Hg] Mariza Abigail ASSISTANT TENNIS COACH.LAP GRINDER Work Phone: [facility] 03-23-2024 11:39-0400 Heart rate 95 /min Mariza Abigail ASSISTANT TENNIS COACH.LAP GRINDER Work Phone: [facility] 03-23-2024 11:39-0400 SaO2% (BldA) [Mass fraction] 100 % Mariza Abigail ASSISTANT TENNIS COACH.LAP GRINDER Work Phone: [facility] 03-23-2024 11:39-0400 Systolic blood pressure 130 mm[Hg] Mariza Abigail ASSISTANT TENNIS COACH.LAP GRINDER Work Phone: [facility] 03-15-2024 12:48-0400 Body height 173.4 cm Phuc Misai DO Work Phone: [facility] 03-15-2024 12:48-0400 Body mass index (BMI) [Ratio] 23.4 kg/m2 Phuc Masci DO Work Phone: [facility] 03-15-2024 12:48-0400 Body temperature 98.91 [degF] Phuc Masci DO Work Phone: [facility] 03-15-2024 12:48-0400 Body weight 70.31 kg Phuc Masci DO Work Phone: [facility] 03-15-2024 12:48-0400 Diastolic blood pressure 89 mm[Hg] Phuc Masci DO Work Phone: [facility] 03-15-2024 12:48-0400 Heart rate 86 /min Phuc Kumar DO Work Phone: [facility] 03-15-2024 12:48-0400 SaO2% (BldA) [Mass fraction] 99 % Phuc Kumar DO Work Phone: [facility] 03-15-2024 12:48-0400 Systolic blood pressure 149 mm[Hg] Phuc Bynumi DO Work Phone: [facility] 11-13-2023 13:30-0400 Diastolic blood pressure 76 mm[Hg] DO Tommy Keister Work Phone: [facility] 11-13-2023 13:30-0400 Heart rate 71 /min DO Tommy Keister Work Phone: [facility] 11-13-2023 13:30-0400 Respiratory rate 18 /min DO Tommy Keister Work Phone: [facility] 11-13-2023 13:30-0400 SaO2% (BldA) [Mass fraction] 99 % DO Tommy Keister Work Phone: [facility] 11-13-2023 13:30-0400 Systolic blood pressure 114 mm[Hg] DO Tommy Keister Work Phone: [facility] 11-13-2023 10:08-0400 Body height 172.72 cm DO Tommy Keister Work Phone: [facility] 11-13-2023 10:08-0400 Body temperature 97.8 [degF] DO Tommy Keister Work Phone: [facility] 11-13-2023 10:08-0400 Body weight 66.5 kg DO Tommy Keister Work Phone: [facility] Encounters Encounter Date Encounter Type Care Provider Facility Start: 05-13-2024 End: 05-13-2024 ambulatory NONE PHYSICIAN Facility:A Start: 05-13-2024 End: 05-13-2024 Patient encounter procedure PHY WO ID REFERRING [facility] Start: 04-16-2024 End: 04-20-2024 Telephone encounter Phuc Kumar DO Work Phone: Hematology/Oncology Comment on above: Results Start: 04-01-2024 End: 04-01-2024 ambulatory HUMBERTO BUSTILLO Facility:[facility] Start: 04-01-2024 End: 04-01-2024 Subsequent hospital visit by physician Bone Density [facility] Work Phone: Radiology Comment on above: Bony sclerosis [Q78. 2] Start: 03-31-2024 End: 03-31-2024 Admission to same day surgery center Mariza Hayes APRN.CNP Work Phone: General Surgery Comment on above: CT scan Start: 03-31-2024 End: 03-31-2024 E-mail encounter from caregiver Mariza Hayes APRN.CNP Work Phone: General Surgery Start: 03-30-2024 End: 03-30-2024 ambulatory MARIZA HAYES Facility:[facility] Start: 03-30-2024 End: 03-30-2024 Subsequent hospital visit by physician [facility] Work Phone: Cat Scan Comment on above: Diarrhea, unspecifie d type [R19.7] Start: 03-23-2024 End: 03-24-2024 Telephone encounter Mariza Hayes APRN.CNP Work Phone: General Surgery Comment on above: Request Outside [facility] Records Start: 03-23-2024 End: 03-[facility] Start: 03-23-2024 End: 03-23-2024 Patient encounter procedure Mariza Hayes APRN.LAP GRINDER Work Phone: General Surgery Comment on above: Encounter for screen ing for malignant neoplasm of colon (Primary Dx); History of colonic polyps; Dysphagia, unspecified type; Heartburn; Diarrhea, unspecified type; Bony sclerosis; Osteopenia of other site; Testicular hypofunction Start: 03-18-2024 End: 03-19-2024 Telephone encounter Phuc Kumar DO Work Phone: Hematology/Oncology Comment on above: Results Start: 03-15-2024 End: 03-15-2024 Subsequent hospital visit by physician Mayte [facility] Jocelyn Hendrix Work Phone: Radiology Comment on above: Bony sclerosis [Q78. 2] Start: 03-15-2024 End: 03-16-2024 Telephone encounter Phuc Kumar DO Work Phone: Hematology/Oncology Comment on above: AVS 03/15/24 Start: 03-15-2024 End: 03-15-2024 ambulatory Phuc Kumar DO Work Phone: Hematology/Oncology Comment on above: Covid Positive Start: 03-15-2024 End: 03-15-2024 Examination of testicle Phuc Kumar DO Work Phone: Hematology/Oncology Comment on above: Bony sclerosis (Prim maki Dx); Osteopenia of other site; Testicular hypofunction; Polycystic kidney disease Start: 03-15-2024 End: 03-15-2024 Patient encounter procedure Phuc Kumar DO Work Phone: Hematology/Oncology Start: 02-27-2024 Telephone encounter Phuc romero DO Work Phone: Hematology/Oncology Comment on above: New Patient Start: 02-26-2024 E-mail encounter fro m caregiver Dawit Rojas APRN.SAL Work Phone: [facility] Start: 02-26-2024 Follow-up encounter Dawit Orozco ams, APRN.LAP GRINDER Work Phone: [facility] Comment on above: Follow up Start: 02-26-2024 End: 02-26-2024 Patient encounter procedure Dawit Rojas APRN.SAL Work Phone: [facility] [facility] Comment on above: Abnormal finding on imaging (Primary Dx); Osteopenia of other site; Bony sclerosis; Does not have primary care provider Start: 02-26-2024 End: 02-26-2024 Telemedicine consultation with patient Dawit Rojas APRN.CNP Work Phone: [facility] Start: 02-26-2024 End: 02-26-2024 ambulatory DAWIT ROJAS Facility:[facility] Start: 02-17-2024 End: 05-06-2024 Telephone encounter Kasia Alaniz ASSISTANT TENNIS COACH.LAP GRINDER Work Phone: [facility] Comment on above: Actionable Findings Follow Up Start: 02-16-2024 E-mail encounter fro m caregiver Alanis DANIEL-C Work Phone: [facility] Start: 02-16-2024 Follow-up encounter Alanis Tyson epperson PA-C Work Phone: [facility] Comment on above: actionable finding f ollow up Start: 01-04-2024 End: 01-05-2024 Emergency department patient visit JOHN Degroot [facility] Start: 12-22-2023 Emergency department patient visit Facility:[id number] Start: 11-13-2023 End: 11-13-2023 Emergency department patient visit Tommy Swanson Facility:[facility] Start: 11-13-2023 End: 11-13-2023 Emergency department patient visit DO Tommy Swanson Work Phone: [facility] Work Phone: Start: 10-18-2023 Emergency department patient visit Facility:[facility] Start: 08-31-2023 End: 09-01-2023 Emergency department patient visit STACY ALVAREZ Facility:[facility] Start: 04-18-2023 ambulatory PATRICIA vitale Start: 04-09-2023 Telephone encounter Biju Gould Work Phone: Podiatry Comment on above: Patient Update Start: 02-27-2023 Telephone encounter Biju Gould Work Phone: Podiatry Comment on above: Patient Update Start: 02-26-2023 Telephone encounter Biju Gould Work Phone: Podiatry Comment on above: Patient Update Start: 01-31-2023 Telephone encounter Biju Gould Work Phone: Podiatry Comment on above: Patient Update Start: 01-28-2023 Telephone encounter Biju Gould Work Phone: Podiatry Comment on above: Orders Start: 01-28-2023 End: 01-28-2023 Subsequent hospital visit by physician Xr [facility] Jocelyn Simeon Work Phone: Radiology Comment on above: Pain of toe of right foot [M79.674] Start: 01-28-2023 End: 01-28-2023 Patient encounter procedure Biju Sorto Work Phone: Podiatry Comment on above: Pain of toe of right foot (Primary Dx); Soft tissue mass; Cellulitis and abscess of toe of right foot Start: 08-01-2022 End: 08-01-2022 Subsequent hospital visit by physician Mri Radio [facility] (I-Stat/1.5t) Work Phone: Radiology Comment on above: Mass of right foot [ R22.41] Start: 07-25-2022 End: 07-25-2022 Patient encounter procedure Biju Sorto Work Phone: Podiatry Comment on above: Soft tissue mass (Pr imary Dx); Pain of toe of right foot; Diminished pulses in lower extremity; Mass of right foot Start: 06-24-2022 ambulatory Pcp ([facility]) [facility] Start: 06-19-2022 End: 06-19-2022 Subsequent hospital visit by physician Xr [facility] [place] Work Phone: Radiology Comment on above: Pain of toe of right foot [M79.674] Start: 06-29-2015 End: 06-29-2015 Telephone encounter Serge Bradshaw (Hist) Work Phone: Radiology Comment on above: Biopsy Request Procedures Date Procedure Procedure Detail Performing Clinician Start: 03-30-2024 Ct abdomen & pelvis w/o contrast material Mariza Hayes APRN.CNP Work Phone: Start: 01-04-2024 Urinalysis JOHN MUÑOZ Comment on above: Result Comment: URIN ALYSIS Performed By: #### 2 [id number] #### Juliano [facility],[address] [facility] [address] Start: 11-13-2023 Computed tomography of abdomen and pelvis with contrast DO Tommy Swanson Work Phone: Start: 11-13-2023 CT angiography of thorax DO Tommy Swanson Work Phone: Start: 01-28-2023 Radex toe minimum 2 views Biju Sorto Work Phone: Start: 08-01-2022 Mri lower extrem oth /thn jt w/o & w/contr matr Biju Hudsonjanna Work Phone: Start: 06-19-2022 Radex toe minimum 2 views Aarti Osorio ASSISTANT TENNIS COACH.LAP GRINDER Work Phone: Start: 12-08-2019 Lipid 1996 panel - S miles or Plasma Alanis Cuba PAChristophe Work Phone: Plan of Treatment Date Care Activity Detail Author Start: 08-01-2033 Urine microalbumin profile DTaP,Tdap,Td Vaccine (4 - Td or Tdap) [facility] Start: 12-07-2024 Lipid panel Lipid Screening [facility] Start: 07-02-2024 End: 07-02-2024 Patient encounter procedure [facility] Endoscopy Comment on above: colon/egd Start: 06-28-2024 Urine microalbumin profile DTaP,Tdap,Td Vaccine (2 - Td or Tdap) [facility] Start: 06-07-2024 End: 06-07-2024 Patient encounter procedure 06/07/2024 3:00 PM EST Office Visit Endocrinology [address] [place] [address] Melina Caballero MD [address] [place] [address] Osteopenia of lumbar spine [M85.88] Endocrinology Comment on above: Osteopenia of lumbar spine [M85.88] Start: 04-01-2024 End: 04-01-2024 Patient encounter procedure 04/01/2024 10:05 AM EDT Appointment Radiology [address] [place] [id number] Bony sclerosis [Q78.2]; Osteopenia of other site [M85.88]; Testicular hypofunction [E29.1] Radiology Comment on above: Bony sclerosis [Q78. 2]; Osteopenia of other site [M85.88]; Testicular hypofunction [E29.1] Start: 03-30-2024 End: 03-30-2024 Patient encounter procedure Cat Scan Comment on above: Diarrhea, unspecifie d type [R19.7] Start: 03-23-2024 End: 03-23-2024 Patient encounter procedure 03/23/2024 11:30 AM EDT Office Visit General Surgery [address], [place] [id number] Mariza Hayes APRN.LAP GRINDER [address], [place] [id number] colonoscopy consult General Surgery Comment on above: colonoscopy consult Start: 03-21-2024 Covid-19 Vaccine ( season) Covid-19 Vaccine ( season) [facility] Start: 03-21-2024 Covid-19 Vaccine ( season) Covid-19 Vaccine ( season) [facility] Start: 03-21-2024 Influenza vaccination Influenza Vacc ine (#1) [facility] Start: 03-17-2024 End: 03-17-2024 Patient encounter procedure 03/17/2024 3:00 PM EDT Office Visit General Surgery [address], [place] [id number] Mariza Hayes APRN.LAP GRINDER [address] [place], [place] [id number] colonoscopy consult General Surgery Comment on above: colonoscopy consult Start: 03-15-2024 End: 06-14-2024 MONOCLONAL PROTEIN, SERUM (BLOOD) [facility] Comment on above: Expected: 03/15/2024 , Expires: 06/14/2024 Start: 03-15-2024 End: 06-14-2024 Parathyrin.intact [Mass/volume] in Serum or Plasma [facility] Comment on above: Expected: 03/15/2024 , Expires: 06/14/2024 Start: 03-15-2024 End: 06-14-2024 PROTEIN ELECTROPHORESIS SERUM W/INTERP [facility] Comment on above: Expected: 03/15/2024 , Expires: 06/14/2024 Start: 03-15-2024 End: 06-14-2024 Testosterone [Mass/volume] in Serum or Plasma [facility] Comment on above: Expected: 03/15/2024 , Expires: 06/14/2024 Start: 03-15-2024 End: 06-14-2024 VASC ENDO GROWTH FACTOR [facility] Comment on above: Expected: 03/15/2024 , Expires: 06/14/2024 Start: 03-15-2024 End: 03-15-2024 ambulatory 03/15/2024 1:30 PM EDT Visit (SP) Office Hematology/Oncology [address], [place] [id number] Phuc Kumar, DO [address] [place], [place] [id number] PHLEBOTOMY SUPERVISOR/OSTEOPENIA,BONY SCLEROSIS/REF.DAWIT ROJAS CNP* Hematology/Oncology Comment on above: PHLEBOTOMY SUPERVISOR/OSTEOPENIA,BONY S CLEROSIS/REF.DAWIT ROJAS CNP* Start: 03-21-2023 Covid-19 Vaccine ( season) Covid-19 Vaccine ( season) [facility] Start: 03-21-2023 Influenza vaccination C [facility] Start: 07-21-2022 [facility]PRESSION [facility]MENT [facility] Start: 03-21-2022 Influenza vaccination INFLUENZA (#1) [facility] Start: 07-21-2021 DEPRESSION ASSESSMENT DEPRESSION ASS ESSMENT [facility] Start: 03-21-2021 Influenza vaccination INFLUENZ A (Season Ended) [facility] Start: 2007 Hepatitis B Vaccine (1 of 3 - 19+ 3-dose series) Hepatitis B Vaccine (1 of 3 - 19+ 3-dose series) [facility] Start: 2007 Urine microalbumin profile [facility] Start: 2006 Anxiety Screening Anxiety Screening [facility] Start: 2006 Depression Screening Depression Scre ening [facility] Start: 2006 HEPATITIS C SCREENING HEPATITIS C SC CARLINE [facility] Start: 2006 HIV SCREENING HIV SCREENING [facility] Start: 2000 Adult depression screening assessment DEPRESSION SCREENING [facility] Start: 1994 PNEUMOCOCCAL (1 - PCV) PNEUMOCOCCAL (1 - PCV) [facility] Start: 1994 Pneumococcal vaccination [facility] Start: 02-21-1989 COVID-19 VACCINE (#1) COVID-19 VACCI NE (#1) [facility] Start: 1988 HEPATITIS B (1 of 3 - 3-dose series) HEPATITIS B (1 of 3 - 3-dose series) [facility] Start: 1988 Hepatitis B Vaccine (1 of 3 - 3-dose series) Hepatitis B Vaccine (1 of 3 - 3-dose series) [facility] End: 04-14-2025 BD DXA TRABECULAR BONE SCORE (TBS) BD DXA TRABECULAR BONE SCORE (TBS) Radiology Routine Bony sclerosis Osteopenia of other site Testicular hypofunction 1 Occurrences starting 03/15/2024 until 04/14/2025 [facility] Comment on above: 1 Occurrences starti ng 03/15/2024 until 04/14/2025 BD DXA TRABECULAR ABI NE SCORE (TBS) BD DXA TRABECULAR BONE SCORE (TBS) Radiology Routine Bony sclerosis Osteopenia of other site Testicular hypofunction 04/01/2024 10:25 AM EDT [facility] End: 04-22-2025 CT Abdomen and Pelvis WO contrast CT ABD/PEL WO IVCON Radiology STAT Diarrhea, unspecified type 1 Occurrences starting 03/23/2024 until 04/22/2025 [facility] Comment on above: 1 Occurrences starti ng 03/23/2024 until 04/22/2025 End: 04-14-2025 DXA Skeletal system.axial Views for bone density DXA-AXIAL SKELETON Radiology Routine Bony sclerosis Osteopenia of other site Testicular hypofunction 1 Occurrences starting 03/15/2024 until 04/14/2025 [facility] Comment on above: 1 Occurrences starti ng 03/15/2024 until 04/14/2025 DXA Skeletal system.axial Views for bone density DXA-AXIAL SKELETON Radiology Routine Bony sclerosis Osteopenia of other site Testicular hypofunction 04/01/2024 10:25 AM EDT [facility] Work Phone: End: 03-23-2025 EGD DIAGNOSTIC EGD DIAGNOSTIC Endoscopy Routine Dysphagia, unspecified type Heartburn 1 Occurrences starting 03/23/2024 until 03/23/2025 [facility] Comment on above: 1 Occurrences starti ng 03/23/2024 until 03/23/2025 End: 2023 Mri lower extrem oth/thn jt w/o & w/contr matr MRI FOOT/TOES WO/W IVCON RT Radiology Routine Mass of right foot 1 Occurrences starting 07/25/2022 until 2023 [facility] Work Phone: Comment on above: 1 Occurrences starti ng 07/25/2022 until 2023 Patient Education Chest Pain, Adult ED [facility] Work Phone: Patient referral [facility] Work Phone: End: 07-25-2023 PVR ANK PRESS [facility] PVR ANK [facility] Vascular Lab Routine Soft tissue mass Diminished pulses in lower extremity Mass of right foot 1 Occurrences starting 07/25/2022 until 07/25/2023 [facility] Work Phone: Comment on above: 1 Occurrences starti ng 07/25/2022 until 07/25/2023 End: 03-23-2025 Screening colonoscopy COLONOSCOPY SCREENING Endoscopy Routine History of colonic polyps Encounter for screening for malignant neoplasm of colon 1 Occurrences starting 03/23/2024 until 03/23/2025 [facility] Work Phone: Comment on above: 1 Occurrences starti ng 03/23/2024 until 03/23/2025 End: 04-14-2025 XR Bones Complete Survey Views XR BONE SURVEY ROUTINE Radiology Routine Bony sclerosis 1 Occurrences starting 03/15/2024 until 04/14/2025 [facility] Work Phone: Comment on above: 1 Occurrences starti ng 03/15/2024 until 04/14/2025 XR Bones Complete Jeter rvey Views XR BONE SURVEY ROUTINE Radiology Routine Bony sclerosis 03/15/2024 3:22 PM EDT [facility] Payers Date Payer Category Payer Unknown [id number] 2023 Self-pay 2022 Unknown [id number] 2021 Medicaid [id number] 2014 Private Health Insurance [employer] A ETNA PPO [id number] 2014-Present PPO [id number] 1988 Unknown [id number] 1988 Unknown [id number] 1 1988 Unknown [id number] Unknown [id number] Social History Date Type Detail Facility Start: 06-19-2015 End: 12-22-2023 Tobacco smoking status NHIS Current every day smoker [facility] Start: 03-15-2004 History of tobacco use Cigarette Smo ker [facility] Start: 06-19-2015 End: 02-27-2023 Cigarettes smoked current (pack per day) - Reported [facility] Start: 06-19-2015 End: 12-22-2023 Tobacco use and exposure Never used [facility] Start: 06-19-2015 End: 06-19-2022 Alcohol intake Not Asked [facility] Start: 1990 Sex Assigned At Not on file C [facility] Start: 06-09-2022 End: 06-19-2022 Exposure to SARS-CoV-2 (event) Not sure [facility] Work Phone: Start: 01-05-2023 Alcohol intake Current drinke r of alcohol (finding) [facility] Start: 07-25-2022 Alcohol Comment rarely [facility] Start: 01-28-2023 End: 12-22-2023 Alcohol intake Ex-drinker (finding) [facility] Start: 01-28-2023 End: 02-27-2023 Tobacco use panel [facility] National Score (1-10 0), lower number is lower risk 70 [facility] Start: 1990 Sex Assigned At Male [facility] Start: 01-28-2023 Gender identity Identifies as male gender (finding) [facility] Start: 04-10-2022 Sexual orientation Homosexual (findi ng) [facility] Start: 11-13-2023 Tobacco smoking stat us GAIS Smoker (finding) [facility] Tobacco smoking status No Smokin g Status Entered [facility] Clinical Notes 07-03-2015 to 04-20-2024 Telephone Encounter - Elaine Barreto - 04/20/2024 3:06 PM EDTTelephone Encounter - Elaine Barreto - 04/20/2024 3:06 PM EDTTelephone Encounter - Samantha Jacobo LPN - 04/20/2024 9:45 AM EDT Note Date & Type Note Facility 04-20-2024 Telephone encounter Note Spoke with patient and scheduled Endocrinology referral. Elaine Barreto [facility] 04-20-2024 Miscellaneous Notes Spoke with patient and scheduled Endocrinology referral. Elaine Barreto Pt aware, please assist with endocrin ref. Samantha Jacobo LPN Left VM, will send [employer] message. Advised pt to call office or respond in [facility]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 W/O CONTRAST Mariza Hayes, WILLIAM.[employer] [address] [place] [address] [place] [address] Referral ID Status Reason Start Date Expiration Date V isits Requested Visits Authorized [id number] Closed Auto-Generat ed Referral Patient Cleared - Admin/Chairm an/Director advise to proceed or did not respond 03/23/2024 04/22/2024 1 1 Specialty Diagnoses / Procedures Referred By Contac t Referred To Contact Endocrinology Diagnoses Osteopenia of lumbar spine Procedures CONSULT TO ENDOCRINOLOGY OFFICE/OUTPATIENT [facility] 60 MINUTES Phuc Kumar, DO [address] [place] [address] Referral ID Status Reason Start Date Expiration Date Visits Requested Visits Authorized [id number] Authorized PCP Requested Referral 04/16/2024 04/16/2025 1 1 Summary Purpose Family History No Family History Records FoundNo Family History Records FoundNo Family History Records FoundNo Family History Records FoundNo Family History Records FoundNo Family History Records Found No data available for this section No Family History Records Found Advance Directives No Advanced Directives Records Found Advance Directive Response Recorded Date/ Time Advance Directives No November 12 024 10:59am Chief Complaint and Reason for Visit Chief Complaint Chest pain Additional Source Comments Source Comments (unrecognize d section and content) In the event this informatio n is protected by the Federal Confidentiality of Alcohol and Drug Abuse Patient Records regulations: The Federal rules restrict any use of the information to criminally investigate or prosecute any alcohol or drug abuse patient.[facility] the event this information is protected by the Federal Confidentiality of Alcohol and Drug Abuse Patient Records regulations: The Federal rules restrict any use of the information to criminally investigate or prosecute any alcohol or drug abuse patient.[facility] the event this information is protected by the Federal Confidentiality of Alcohol and Drug Abuse Patient Records regulations: The Federal rules restrict any use of the information to criminally investigate or prosecute any alcohol or drug abuse patient.[facility] the event this information is protected by the Federal Confidentiality of Alcohol and Drug Abuse Patient Records regulations: The Federal rules restrict any use of the information to criminally investigate or prosecute any alcohol or drug abuse patient.[facility] the event this information is protected by the Federal Confidentiality of Alcohol and Drug Abuse Patient Records regulations: The Federal rules restrict any use of the information to criminally investigate or prosecute any alcohol or drug abuse patient.[facility] the event this information is protected by the Federal Confidentiality of Alcohol and Drug Abuse Patient Records regulations: The Federal rules restrict any use of the information to criminally investigate or prosecute any alcohol or drug abuse patient.[facility] the event this information is protected by the Federal Confidentiality of Alcohol and Drug Abuse Patient Records regulations: The Federal rules restrict any use of the information to criminally investigate or prosecute any alcohol or drug abuse patient.[facility] the event this information is protected by the Federal Confidentiality of Alcohol and Drug Abuse Patient Records regulations: The Federal rules restrict any use of the information to criminally investigate or prosecute any alcohol or drug abuse patient.[facility] the event this information is protected by the Federal Confidentiality of Alcohol and Drug Abuse Patient Records regulations: The Federal rules restrict any use of the information to criminally investigate or prosecute any alcohol or drug abuse patient.[facility] the event this information is protected by the Federal Confidentiality of Alcohol and Drug Abuse Patient Records regulations: The Federal rules restrict any use of the information to criminally investigate or prosecute any alcohol or drug abuse patient.[facility] the event this information is protected by the Federal Confidentiality of Alcohol and Drug Abuse Patient Records regulations: The Federal rules restrict any use of the information to criminally investigate or prosecute any alcohol or drug abuse patient.[facility] the event this information is protected by the Federal Confidentiality of Alcohol and Drug Abuse Patient Records regulations: The Federal rules restrict any use of the information to criminally investigate or prosecute any alcohol or drug abuse patient.[facility] Hospital[facility] the event this information is protected by the Federal Confidentiality of Alcohol and Drug Abuse Patient Records regulations: The Federal rules restrict any use of the information to criminally investigate or prosecute any alcohol or drug abuse patient.[facility] HospitalIn the event this information is protected by the Federal Confidentiality of Alcohol and Drug Abuse Patient Records regulations: The Federal rules restrict any use of the information to criminally investigate or prosecute any alcohol or drug abuse patient.[facility] HospitalIn the event this information is protected by the Federal Confidentiality of Alcohol and Drug Abuse Patient Records regulations: The Federal rules restrict any use of the information to criminally investigate or prosecute any alcohol or drug abuse patient.[facility] HospitalIn the event this information is protected by the Federal Confidentiality of Alcohol and Drug Abuse Patient Records regulations: The Federal rules restrict any use of the information to criminally investigate or prosecute any alcohol or drug abuse patient.[facility] HospitalIn the event this information is protected by the Federal Confidentiality of Alcohol and Drug Abuse Patient Records regulations: The Federal rules restrict any use of the information to criminally investigate or prosecute any alcohol or drug abuse patient.[facility] HospitalIn the event this information is protected by the Federal Confidentiality of Alcohol and Drug Abuse Patient Records regulations: The Federal rules restrict any use of the information to criminally investigate or prosecute any alcohol or drug abuse patient.[facility] HospitalIn the event this information is protected by the Federal Confidentiality of Alcohol and Drug Abuse Patient Records regulations: The Federal rules restrict any use of the information to criminally investigate or prosecute any alcohol or drug abuse patient.[facility] HospitalIn the event this information is protected by the Federal Confidentiality of Alcohol and Drug Abuse Patient Records regulations: The Federal rules restrict any use of the information to criminally investigate or prosecute any alcohol or drug abuse patient.[facility] HospitalIn the event this information is protected by the Federal Confidentiality of Alcohol and Drug Abuse Patient Records regulations: The Federal rules restrict any use of the information to criminally investigate or prosecute any alcohol or drug abuse patient.[facility] HospitalIn the event this information is protected by the Federal Confidentiality of Alcohol and Drug Abuse Patient Records regulations: The Federal rules restrict any use of the information to criminally investigate or prosecute any alcohol or drug abuse patient.[facility] HospitalIn the event this information is protected by the Federal Confidentiality of Alcohol and Drug Abuse Patient Records regulations: The Federal rules restrict any use of the information to criminally investigate or prosecute any alcohol or drug abuse patient.[facility] HospitalIn the event this information is protected by the Federal Confidentiality of Alcohol and Drug Abuse Patient Records regulations: The Federal rules restrict any use of the information to criminally investigate or prosecute any alcohol or drug abuse patient.[facility] HospitalIn the event this information is protected by the Federal Confidentiality of Alcohol and Drug Abuse Patient Records regulations: The Federal rules restrict any use of the information to criminally investigate or prosecute any alcohol or drug abuse patient.[facility] HospitalIn the event this information is protected by the Federal Confidentiality of Alcohol and Drug Abuse Patient Records regulations: The Federal rules restrict any use of the information to criminally investigate or prosecute any alcohol or drug abuse patient.[facility] HospitalIn the event this information is protected by the Federal Confidentiality of Alcohol and Drug Abuse Patient Records regulations: The Federal rules restrict any use of the information to criminally investigate or prosecute any alcohol or drug abuse patient.[facility] Reason for Visit (unrecogniz ed section and content) Reason Onset Date Comments Biopsy Request 06/29/2015 Reason Comments New Pain Swelling Specialty Diagnoses / Procedures Referred By Contac t Referred To Contact Podiatry Diagnoses Pain of toe of right foot Procedures CONSULT TO PODIATRY OFFICE/OUTPATIENT NEW HIGH MDM 60-74 MINUTES Aarti Osorio, ASSISTANT TENNIS COACH.[employer] GR[employer]ER [address] [place] [address] Referral ID Status Reason Start Date Expiration Date V isits Requested Visits Authorized [id number] Closed PCP Requested Referral 06/19/2022 06/19/2023 1 1 Reason Comments Orders Reason Comments Patient Update Reason Comments Established Patient Follow Up Pain Swelling Specialty Diagnoses / Procedures Referred By Contac t Referred To Contact MR IMAGING Diagnoses Mass of right foot Procedures MRI FOOT/TOES WO/W IVCON RT MRI LOWER EXTREM OTH/THN JT W/O & W/CONTR MATR Macario Biju [address] [place] [address] [place] [address] Referral ID Status Reason Start Date Expiration Date V isits Requested Visits Authorized [id number] Closed Auto-Generate d Referral 07/25/2022 2022 1 1 Reason Comments Radiology Review Reason Comments New Patient Reason Comments New Patient Evaluation Specialty Diagnoses / Procedures Referred By Contac t Referred To Contact Diagnoses Osteopenia of other site Bony sclerosis Procedures CONSULT TO HEMATOLOGY/ONCOLOGY OFFICE/OUTPATIENT NEW HIGH MDM 60 MINUTES Dawit Rojas, ASSISTANT TENNIS COACH.L[employer] GRINDER [address] [place] [address] Referral ID Status Reason Start Date Expiration Date V isits Requested Visits Authorized [id number] Closed PCP Requested Referral 02/26/2024 02/24/2025 1 1 Reason Comments AVS 03/15/24 Reason Comments Results Reason Comments Consult colonoscopy Specialty Diagnoses / Procedures Referred By Contac t Referred To Contact General Surgery Diagnoses Bony sclerosis Osteopenia of other site Testicular hypofunction Procedures CONSULT TO GENERAL SURGERY OFFICE/OUTPATIENT [facility] MDM 60 MINUTES Phuc Kumar DO [address] [place] [address] Referral ID Status Reason Start Date Expiration Date V isits Requested Visits Authorized [id number] Closed PCP Requested Referral 03/15/2024 03/15/2025 1 1 Reason Comments Request Outside Medical Records Reason Comments Radiology CT Specialty Diagnoses / Procedures Referred By Contdaniel t Referred To Contact CT IMAGING Diagnoses Diarrhea, unspecified type Procedures CT ABD/PEL WO IVCON CT ABD & PELVIS W/O CONTRAST Mariza Hayes APRN.[employer] GR[employer]ER [address] [place] [address] [place] [address] Referral ID Status Reason Start Date Expiration Date V isits Requested Visits Authorized [id number] Closed Auto-Generat ed Referral Patient Cleared - Admin/Chairm an/Director advise to proceed or did not respond 03/23/2024 04/22/2024 1 1 Reason Comments Results Reason Comments Actionable Findings Follow Up Care Teams (unrecognized sec tion and content) Outreach Director Relationship Specialty Start Date End Date Pcp, No PCP - General 02/02/22 08/20/22 Outreach Director Relationship Specialty Start Date End Date Pcp, No PCP - General 02/02/22 08/20/22 Outreach Director Relationship Specialty Start Date End Date Pcp, No, ASSISTANT TENNIS [employer]ACH PCP - General 02/02/22 08/20/22 Team Status: Active Member Role Status Dates PHYSICIAN NO FAMILY Primary Care Provider Active Team Status: Inactive Member Role Status Dates Tommy Swanson DO Emergency Provider Active Start: November 13, 2023 End: November 13, 2023 PHYSICIAN NO FAMILY Primary Care Provider Active Start: November 13, 2023 End: November 13, 2023 Outreach Director Relationship Specialty Start Date End Date Humberto Bustillo MD [address] [place] [address] Infectious Diseases 02/26/24 Outreach Director Relationship Specialty Start Date End Date Humberto Bustillo MD [address] [place] [address] Infectious Diseases 02/26/24 Outreach Director Relationship Specialty Start Date End Date Humberto Bustillo MD [address] [place] [address] Infectious Diseases 02/26/24 Outreach Director Relationship Specialty Start Date End Date Humberto Bustillo MD [address] [place] [address] Infectious Diseases 02/26/24 Dawit Rojas APRN.[employer] GRINDER [address] [place], [place] [id number] Radiology 03/15/24 Outreach Director Relationship Specialty Start Date End Date Humberto Bustillo MD [address] [place] [address] Infectious Diseases 02/26/24 Dawit Rojas, WILLIAM.LAP GRINDER [address] [place], [place] [phone] Radiology 03/15/24 Outreach Director Relationship Specialty Start Date End Date Humberto Bustillo MD [address] [place] [address] Infectious Diseases 02/26/24 Dawit Rojas, ASSISTANT TENNIS [employer]ACH.L[employer] GRINDER [address] [place] [address] Radiology 03/15/24 Outreach Director Relationship Specialty Start Date End Date Humberto Bustillo MD [address] [place] [phone] Infectious Diseases 02/26/24 Dawit Rojas APRN.LAP GRINDER [address] [place] [address] Radiology 03/15/24 Outreach Director Relationship Specialty Start Date End Date Humberto Bustillo MD [address] [facility] [place] [address] Infectious Diseases 02/26/24 Dawit Rojas APRN.LAP GRINDER [address] [place], [place] [phone] Radiology 03/15/24 Outreach Director Relationship Specialty Start Date End Date Humberto Bustillo MD [address] [facility], [place] [phone] PCP - General Infectious Diseases 03/23/24 Humberto Bustillo MD [address] [facility] [place] [address] Infectious Diseases 02/26/24 Dawit Rojas ASSISTANT TENNIS [employer]ACH.LAP GRINDER [address] [facility] [place], [place] [phone] Radiology 03/15/24 Outreach Director Relationship Specialty Start Date End Date Humberto Bustillo MD [address] [facility] [place] [address] PCP - General Infectious Diseases 03/23/24 Humberto Bustillo MD [address] [facility] [place] [address] Infectious Diseases 02/26/24 Dawit Rojas APRN.LAP GRINDER [address] [place], [place] [phone] Radiology 03/15/24 Outreach Director Relationship Specialty Start Date End Date Humberto Bustillo MD [address] [place], [place] [id number] PCP - General Infectious Diseases 03/23/24 Humberto Bustillo MD [address] [facility] [address] Infectious Diseases 02/26/24 Dawit Rojas, ASSISTANT TENNIS COACH.LAP GRINDER [address] [place] [address] Radiology 03/15/24 Outreach Director Relationship Specialty Start Date End Date Humberto Bustillo MD [address] [facility] [address] [place], [place] [phone] PCP - General Infectious Diseases 03/23/24 Humberto Bustillo MD [address] [facility] [address] Infectious Diseases 02/26/24 Dawit Rojas, ASSISTANT TENNIS COACH.LAP GRINDER [address] [place] [address] Radiology 03/15/24 Outreach Director Relationship Specialty Start Date End Date Pcp, No, ASSISTANT TENNIS COACH PCP - General 02/02/22 08/20/22 Outreach Director Relationship Specialty Start Date End Date Humberto Bustillo MD [address] [place], [place] [phone] PCP - General Infectious Diseases 03/23/24 Humberto Bustillo MD [address] [place] [address] Infectious Diseases 02/26/24 Dawit Rojas, ASSISTANT TENNIS COACH.LAP GRINDER [address] [place] [address] Radiology 03/15/24 Outreach Director Relationship Specialty Start Date End Date Humberto Bustillo MD [address] [place] [address] PCP - General Infectious Diseases 03/23/24 Humberto Bustillo MD [address] [place] [address] Infectious Diseases 02/26/24 Dawit Rojas, ASSISTANT TENNIS COACH.L[employer] GRINDER [address] [place] [address] Radiology 03/15/24 (unrecognized sect ion and content) No Status Records FoundNo Status Records FoundNo Status Records FoundNo Status Records FoundNo Status Records FoundNo Status Records FoundNo Status Records Found INFORMATION SOURCE (unrecogn ized section and content) DATE CREATED AUTHOR 04/23/2023 [facility] DATE CREATED AUTHOR AUTHOR'S ORGANIZ ATION 10/18/2023 [facility] DATE CREATED AUTHOR AUTHOR'S ORGANIZ ATION 11/23/2023 [facility] DATE CREATED AUTHOR AUTHOR'S ORGANIZ ATION 12/22/2023 [facility] nt DATE CREATED AUTHOR AUTHOR'S ORGANIZ ATION 01/05/2024 [facility] DATE CREATED AUTHOR AUTHOR'S ORGANIZ ATION 05/09/2024 [facility] DATE CREATED AUTHOR AUTHOR'S ORGANIZ ATION 05/15/2024 [facility] Goals (unrecognized section and content) Goals may be documented in a n alternate section No data available for this section FOR RECORDS PERTAINING TO PATIENTS WHO ARE [...] BE BASED ON THE PRIMARY CLINICAL RECORDS. [facility]. provides no warranty or guarantee of the accuracy or completeness of information in this document.
== END | disposition home or self-care (01) ==
PROVIDERS: PCP Internal Medicine Infectious Disease; Referring Provider Otolaryngology; Visit Provider Otolaryngology
DX: R09.81 Nasal congestion (principal); J34.3 Hypertrophy of nasal turbinates; J34.2 Deviated nasal septum
CPT/HCPCS: 88305; 88311

== ENCOUNTER → 2024-05-27 | Outpatient (CLI) | payer MEDICAID, SELFPAY ==
[2024-05-27 18:26] LABS: Microalbumin,Random Urine 7.6 mg/L (NO RANGE EST.); Microalbumin:Creatinine Ratio 4.7 mg/g CRE (<30 mg/g CRE)
== END | disposition home or self-care (01) ==
PROVIDERS: PCP Internal Medicine Infectious Disease; Referring Provider Internal Medicine Nephrology; Visit Provider Internal Medicine Nephrology
DX: Q61.2 Polycystic kidney, adult type (principal)
CPT/HCPCS: 82043; 82570

== ENCOUNTER → 2024-06-07 | Outpatient (CLI) | payer MEDICAID, SELFPAY ==
--- NOTE | 2024-06-07 14:22 | US_ITS ---
STUDY: RENAL ULTRASOUND - COMPLETE REASON FOR EXAM: Male, 33 years old. POLYCYSTIC KIDNEY TECHNIQUE: Ultrasound evaluation of the kidneys was performed with real-time and static kahn-scale imaging. COMPARISON: None. FINDINGS: RIGHT KIDNEY: with moderate renal hypertrophy. The right kidney measures 16.6 cm x 6.1 cm x 5.6 cm. There is a normal cortex of the right kidney. The renal cortex measures 1.9 cm. Multiple renal cysts are seen in keeping with the patient''s history of polycystic kidney disease. The largest cyst is septated and measures 8.1 cm x 5 cm x 4.9 cm. There are no right renal calculi. There is no right hydronephrosis. DISTAL RIGHT URETER: There is non-visualization of the distal right ureter. There is no demonstrated right ureterovesical junction calculus. There is a visualized right ureteral jet. LEFT KIDNEY: Normal location of the left kidney, which is normal in size. The left kidney measures 10 cm x 5.7 cm x 5.8 cm. There is a normal cortex of the left kidney. The renal cortex measures 2.1 cm. Multiple cysts are seen. The largest measures 2.4 cm x 1.6 cm x 2.1 cm. There are no left renal calculi. There is no left hydronephrosis. DISTAL LEFT URETER: There is non-visualization of the distal left ureter. There is no demonstrated left ureterovesical junction calculus. There is a visualized left ureteral jet. BLADDER: The distended urinary bladder has a volume of 204 ml. There is a normal wall thickness of the distended urinary bladder. There is no demonstrated mass within the urinary bladder. There are no demonstrated bladder calculi. US/Kidney and Bladder IMPRESSION: Hypertrophy of the right kidney. Bilateral renal cysts more prominent on the right side. Electronically Signed: Damon Schumacher MD at 14:16 EST ,
== END | disposition home or self-care (01) ==
PROVIDERS: PCP Internal Medicine Infectious Disease; Referring Provider Internal Medicine Nephrology; Visit Provider Internal Medicine Nephrology
DX: Q61.2 Polycystic kidney, adult type (principal)
CPT/HCPCS: 76770

== ENCOUNTER → 2024-08-25 | Outpatient (CLI) | payer MEDICAID, SELFPAY ==
[2024-08-25 16:00] LABS: Hematocrit 40.2 % (40-54); Hemoglobin 13.4 g/dL (13.0-16.5); Mean Corp Hgb Conc 33.3 g/dL (32-36); Mean Corpuscular Hgb 32.2 pg (27.0-32.0); Mean Corpuscular Volume 96.6 fL (80-94); Mean Platelet Vol. 8.8 fl (6.2-12.0); Platelet Count 320 K/mm3 (150-450); RBC Distribution Width CV 13.1 % (11.6-14.6); RBC Distribution Width SD 46.8 fl (35.1-43.9); Red Blood Count 4.16 M/mm3 (4.6-6.2)
[2024-08-25 16:36] LABS: AST(SGOT) 15 U/L (15-37); Alanine Aminotransfer ALT/SGPT 24 U/L (16-61); Albumin, Serum 3.5 g/dL (3.2-5.0); Alkaline Phosphatase 103 U/L (45-117); Anion Gap 5 (5-15); BUN 11 mg/dL (7-18); BUN/Creat Ratio 11.6 RATIO (10-20); Calcium,Total 9.3 mg/dL (8.5-10.1); Chloride 105 mmol/L (98-107); Creatinine, Serum 0.95 mg/dL (0.70-1.30); EST Glomerular Filtration Rate 96 mL/min (>60); Est Glom Filt Rate - Afr Amer 116 mL/min (>60); Globulin 3.6 g/dL (2.2-4.2); Glucose 82 mg/dL (74-106); Magnesium 2.3 mg/dL (1.6-2.6); Potassium 4.1 mmol/L (3.5-5.1); Protein, Total 7.1 g/dL (6.4-8.2); Sodium Level 140 mmol/L (136-145)
[2024-08-27 14:08] LABS: Absolute CD4 Helper 660 /uL (359-1519); Basophils (Absolute) 0.1 x10E3/uL (0.0-0.2); Eosinophils 4 % (Not Estab.); Eosinophils (Absolute) 0.5 x10E3/uL (0.0-0.4); Hemoglobin 12.9 g/dL (13.0-17.7); Immature Granulocytes 0 % (Not Estab.); Immature Granulocytes Absolute 0 x10E3/uL (0.0-0.1); Lymphs 19 % (Not Estab.); Lymphs (Absolute) 2.3 x10E3/uL (0.7-3.1); MCH 31.8 pg (26.6-33.0); MCHC 32.3 g/dL (31.5-35.7); MCV 99 fL (79-97); Monocytes 10 % (Not Estab.); Monocytes (Absolute) 1.2 x10E3/uL (0.1-0.9); Neutrophils 66 % (Not Estab.); Neutrophils (Absolute) 7.7 x10E3/uL (1.4-7.0); Percent % CD4 Pos. Lymph. 28.7 % (30.8-58.5); Platelets 310 x10E3/uL (150-450); RBC Count 4.06 x10E6/uL (4.14-5.80); RDW 12.6 % (11.6-15.4); WBC Count 11.8 x10E3/uL (3.4-10.8)
[2024-08-28 05:06] LABS: HIV-1 RNA by PCR, Quant. < 20 copies/mL (.)
== END | disposition home or self-care (01) ==
LOC: MTLAB 11:40 → LAB 13:56
PROVIDERS: PCP Internal Medicine Infectious Disease; Referring Provider Psychiatry & Neurology Neurology; Visit Provider Psychiatry & Neurology Neurology
DX: B20 Human immunodeficiency virus [HIV] disease (principal); R55 Syncope and collapse
CPT/HCPCS: 36415; 80053; 83735; 84443; 85027; 86361; 87536

== ENCOUNTER → 2024-10-28 | Outpatient (CLI) | payer MEDICAID, SELFPAY | END | disposition home or self-care (01) | LOC: PSN 08:52 | PROVIDERS: PCP Internal Medicine Infectious Disease; Referring Provider Psychiatry & Neurology Neurology; Visit Provider Psychiatry & Neurology Neurology | DX: R56.9 Unspecified convulsions (principal); R55 Syncope and collapse | CPT/HCPCS: 95819 ==

== ENCOUNTER → 2024-11-18 | Outpatient (CLI) | payer MEDICAID, SELFPAY ==
[2024-11-18 15:24] LABS: ALB/GLOB Ratio 1.7 RATIO (0.9-2.4); AST(SGOT) 20 U/L (<=37); Alanine Aminotransfer ALT/SGPT 19 U/L (<=46); Albumin, Serum 4.5 g/dL (3.5-5.0); Alkaline Phosphatase 93 U/L (40-129); Anion Gap 9 (5-15); BUN 11 mg/dL (4-19); BUN/Creat Ratio 12.6 RATIO (10-20); Calcium,Total 9.6 mg/dL (7.6-11.0); Carbon Dioxide 26.6 mmol/L (21.0-32.0); Chloride 103 mmol/L (98-108); Creatinine, Serum 0.87 mg/dL (0.70-1.20); EST Glomerular Filtration Rate 115 (>60); Globulin 2.6 g/dL (2.2-4.2); Glucose 83 mg/dL (70-99); Potassium 4.4 mmol/L (3.3-5.1); Sodium Level 138 mmol/L (133-145); Total Bilirubin 0.24 mg/dL (0.00-1.30)
== END | disposition home or self-care (01) ==
LOC: LAB 13:31
PROVIDERS: PCP Internal Medicine Infectious Disease; Referring Provider Internal Medicine Nephrology; Visit Provider Internal Medicine Nephrology
DX: Q61.2 Polycystic kidney, adult type (principal)
CPT/HCPCS: 36415; 80053

== ENCOUNTER → 2024-11-30 | Outpatient (CLI) | payer MEDICAID, SELFPAY ==
--- NOTE | 2024-11-30 16:20 | MRI_ITS ---
PROCEDURE: BRAIN W/WO CONTRAST 11/30/2024 REASON FOR EXAM: FAM HX CEREBRAL ANEURYSM; SYNCOPE; MIGRAINE HEADAC TECHNIQUE: Routine brain MRI without and with intravenous contrast. Multiplanar and multisequence images were obtained. CONTRAST: Clariscan VOLUME: 15 mL IV COMPARISON: Brain MRI of 08/28/2023. FINDINGS: Brain: Normal signal intensities. Following intravenous contrast administration, no area of abnormal enhancement is seen. Diffusion: Diffusion-weighted images demonstrate no area of restricted diffusion. Ventricles: Normal. Major Intracranial Vessels: No abnormality is identified Sinuses: Visualized paranasal sinuses appear clear. Mastoids: Clear. No orbital pathology is noted. Internal auditory canals appear symmetric and within MRI/Brain W/WO Contrast IMPRESSION: No significant abnormality is identified. Reading Location: [place] [id number]
== END | disposition home or self-care (01) ==
LOC: MRI 15:53
PROVIDERS: PCP Internal Medicine Infectious Disease; Referring Provider Psychiatry & Neurology Neurology; Visit Provider Psychiatry & Neurology Neurology
DX: G43.109 Migraine with aura, not intractable, without status migrainosus (principal); R56.9 Unspecified convulsions; R55 Syncope and collapse; Z82.49 Family history of ischemic heart disease and other diseases of the circulatory system
CPT/HCPCS: 70553; A9575

== ENCOUNTER → 2024-12-09 | Outpatient (CLI) | payer MEDICAID, SELFPAY ==
[2024-12-09 18:25] LABS: Vitamin B12 404 pg/mL (180-914)
== END | disposition home or self-care (01) ==
LOC: MTLAB 11:48
PROVIDERS: PCP Internal Medicine Infectious Disease; Referring Provider Psychiatry & Neurology Neurology; Visit Provider Psychiatry & Neurology Neurology
DX: R53.83 Other fatigue (principal)
CPT/HCPCS: 36415; 82607

== ENCOUNTER 2024-12-23 16:36 | Observation (INO) | payer MEDICAID, SELFPAY ==
[2024-12-23] VITALS (11 sets, daily range): BP systolic 124–143; BP diastolic 93–110; PULSE 68–90; RESP 13–19; TEMP 35.6–36.5; O2SAT 95–100; BMI 26.1; BMI 27.1; BMI 25.2
--- NOTE | 2024-12-23 16:39 | ED.RN ---
Dr. Valerio in triage to see patient at this time
--- NOTE | 2024-12-23 16:40 | CT_ITS ---
PROCEDURE: STROKE BRAIN/HEAD WITHOUT CONT 12/23/2024 REASON FOR EXAM: NEURO DEFICIT, ACUTE, STROKE SUSPECTED TECHNIQUE: Head CT without intravenous contrast. Coronal and Sagittal reconstruction series were provided. One or more dose reduction techniques were used (e.g., Automated exposure control, adjustment of the mA and/or kV according to patient size, use of iterative reconstruction technique. RADIATION DOSE SUMMARY: DLP: 873 mGycm COMPARISON: MR from 11/30/2024 FINDINGS: There is no acute infarct, intracranial hemorrhage, or mass effect. There is no hydrocephalus or significant midline shift. No acute, depressed calvarial fractures. No large scalp hematomas. CT/STROKE Brain/Head without Cont IMPRESSION: No acute, large territorial infarction. Reading Location: [id number]
--- NOTE | 2024-12-23 16:42 | EKG12_ITS ---
Test Reason : Blood Pressure : */* mmHG Vent. Rate : 79 BPM Atrial Rate : 79 BPM P-R Int : 132 ms QRS Dur : 86 ms QT Int : 380 ms P-R-T Axes : 62 40 44 degrees QTcB Int : 435 ms Normal sinus rhythm Normal ECG Confirmed by JEFFERSON TATUM, JOSE ([id number]), dictionary editor RUDY RODRIGUEZ ([id number]) on 12/27/2024 6:28:49 AM Referred By: Kyle Valerio Confirmed By: JOSE PAULINO MD
--- NOTE | 2024-12-23 16:43 | CT_ITS ---
PROCEDURE: STROKE CTA HEAD AND NECK W/CON 12/23/2024 REASON FOR EXAM: NEURO DEFICIT, ACUTE, STROKE SUSPECTED TECHNIQUE: CTA imaging of the head and neck from the aortic arch to the skull vertex with out contrast and with intravenous contrast. Multiplanar and multisequence images were obtained. CONTRAST: 100 mL of Isovue 370 One or more dose reduction techniques were used (e.g., Automated exposure control, adjustment of the mA and/or kV according to patient size, use of iterative reconstruction technique). RADIATION DOSE SUMMARY: DLP: 968 mGycm COMPARISON: None FINDINGS: The aortic arch demonstrates a type I configuration. The ostia of the great vessels are patent. There is conventional branching. The right CCA is patent. There is no significant stenosis of the right carotid bifurcation by NASCET criteria. The cervical right ICA is patent. The right MCA and right RASHMI appear patent. There is no large vessel occlusion. The left CCA is patent. There is no significant stenoses at the left carotid bifurcation by NASCET criteria. The cervical left ICA is patent. The left MCA and left RASHMI appear patent. There is no large vessel occlusion. The right vertebral artery arises from the right subclavian artery. The left vertebral artery arises from the left subclavian artery. Both vertebral arteries are patent. The right vertebral artery is dominant. Right vertebral artery predominantly forms the basilar artery with diminutive flow from the left V4, likely chronic/congenital. Both posterior cerebral arteries arise from the tip of the basilar. Both proximal [employer] segments are patent. There is no large vessel occlusion. There is no enhancing intracranial mass. Shotty cervical lymph nodes are identified. The thyroid gland is heterogeneous. The lung apices demonstrate no pneumothorax. No destructive osseous abnormalities identified. CT/STROKE CTA Head AND Neck W/Con IMPRESSION: No acute large vessel occlusion or high-grade stenosis. Reading Location: [id number]
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
[2024-12-23 17:12] LABS: Absolute Lymphocyte Count 3.46 X10^3/uL (0.83-4.51); Absolute Neutrophil Count 6.1 X10^3/uL (2.0-7.7); Basophil# 0.06 X10^3/uL; Basophil% 0.5 % (0-1); Eosinophil# 0.33 X10^3/uL; Eosinophils% 2.9 % (0-5); Lymphocyte # 3.46 X10^3/ul (0.83-4.51); Lymphocyte % 30.2 % (19-41); Mean Corp Hgb Conc 33.3 g/dL (32-36); Mean Corpuscular Hgb 30.6 pg (27.0-32.0); Mean Corpuscular Volume 91.9 fL (80-94); Mean Platelet Vol. 8.7 fl (6.2-12.0); Monocyte# 1.51 X10^3/uL; Monocyte% 13.2 % (0-10); NRBC Flagged by Analyzer 0 % (0-5); Neutrophil # 6.05 X10^3/uL (2.7-7.7); Neutrophil % 52.7 % (47-70); POSITIVE DIFFERENTIAL YES; Platelet Count 323 K/mm3 (150-450); RBC Distribution Width CV 14.6 % (11.6-14.6); RBC Distribution Width SD 49.7 fl (35.1-43.9); Red Blood Count 4.57 M/mm3 (4.6-6.2); White Blood Count 11.5 K/mm3 (4.4-11.0)
[2024-12-23 17:23] LABS: Anion Gap 12 (5-15); BUN 11 mg/dL (4-19); BUN/Creat Ratio 10.8 RATIO (10-20); Calcium,Total 8.6 mg/dL (7.6-11.0); Carbon Dioxide 23.5 mmol/L (21.0-32.0); Chloride 99 mmol/L (98-108); Creatinine, Serum 0.98 mg/dL (0.70-1.20); EST Glomerular Filtration Rate 103 (>60); Estimated Creatinine Clearance 100.82 ml/min (50-250); Glucose 88 mg/dL (70-99); Potassium 3.7 mmol/L (3.3-5.1); Sodium Level 135 mmol/L (133-145); Troponin T High Sensitivity < 6 ng/L (<=22)
[2024-12-23 17:42] LABS: Differential Indicated SCAN CRITERIA MET
[2024-12-23 17:44] LABS: International Normalized Ratio 0.9; Prothrombin Time (Protime)PT. 12.8 SECONDS (11.7-14.9)
[2024-12-23 17:45] LABS: Partial Thromboplast Time 26.4 Seconds (24.1-36.2)
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
--- NOTE | 2024-12-23 18:40 | MRI_ITS ---
PROCEDURE: BRAIN W/WO CONTRAST 12/23/2024 REASON FOR EXAM: FOCAL NEUROLOGICAL DEFICITS TECHNIQUE: Routine brain MRI without and with intravenous contrast. Multiplanar and multisequence images were obtained. CONTRAST: 15 cc of Clariscan COMPARISON: CT of the head from 12/23/2024 FINDINGS: No restricted diffusion on DWI to suggest acute infarct. There is no intracranial hemorrhage, mass effect, hydrocephalus, or significant midline shift. No abnormal enhancing lesion. Basal cisterns are not effaced. The visualized paranasal sinuses and mastoids appear relatively well-aerated. Flow voids of the major intracranial vessels are preserved. The pituitary fossa is grossly unremarkable. Marrow signal in the upper cervical vertebrae appear intact. MRI/Brain W/WO Contrast IMPRESSION: No acute intracranial hemorrhage or infarction. No abnormal enhancing lesions. Reading Location: [id number]
[2024-12-23 19:20] LABS: Troponin T High Sens 2 HR < 6 ng/L (<=22)
[2024-12-23 19:42] LABS: Differential Comment SCANNED; Platelet Estimate ADEQUATE (ADEQ)
[2024-12-23 19:52] LABS: Amphetamine Urine PRESUMPTIVE POSITIVE (<1000 ng/mL); Barbiturate Urine NEGATIVE (< 200 ng/mL); Benzodiazepine Urine NEGATIVE (< 200 ng/mL); Buprenorphine Urine NEGATIVE (< 200 ng/mL); Cocaine Urine NEGATIVE (< 300 ng/mL); Fentanyl, Urine NEGATIVE; Methadone Urine NEGATIVE (< 300 ng/mL); Opiates Urine NEGATIVE (< 300 ng/mL); Oxycodone, Urine NEGATIVE (< 100 ng/mL); PCP Urine NEGATIVE (< 25 ng/mL); THC Urine NEGATIVE (< 50 ng/mL)
[2024-12-23 20:12] LABS: Hemoglobin A1c 5.3 % (<=5.6)
--- OUTSIDE RECORDS SUMMARY | 2024-12-23 22:13 | XMS RPT_ITS | CCD ---
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 Pal Wilson Emergency Provider Dr. Addie Ayala Other Provider MD Minda Villagran Other Provider [phone] Shekhar Dunne Other Provider Dr. Magalie García Other Provider MD Martir Dubose Other Provider Unavailable Dr. Tye Bee Other Provider Dr. Tj Calvin Other Provider [phone] MD Brennan Simon Other Provider Unavailable MD Adilene Nava Other Provider Unavailable Dr. Justine Erazo Other Provider Dr. Judy Tena Other Provider Dr. Sarah Corrales Other Provider Dr. Valerio Coppola Other Provider Dr. Monica Lopez Other Provider Unavailable Dr. Deborah Miles Other Provider Dr. Karl Hoang Other Provider Dr. Juan Hayward Other Provider Dr. Sarai Montgomery Other Provider Dr. Azeb Ghotra Other Provider Dr. Pankaj Rao Admit Provider Dr. Pankaj Rao Attending Provider Dr. Pankaj Rao Other Provider Dr. Humberto Downs Other Provider MD Elio Santacruz Other Provider Stan, MS Chicho Other Provider MD Sandra Chandler Other Provider MD AILYN EATON Other Provider MD Kerwin Rachel Other Provider MD Shira Boss Other Provider Dr. Simin Moseley Attending Provider Dr. Simin Moseley Other Provider Dr. Rebekah Palomares Attending Provider DO Tommy Swanson Emergency Provider NO FAMILY, PHYSICIAN Primary Care Provider Unava ilable Tommy Swanson Admitting Unavailable Tommy Swanson Attending Unavailable NO FAMILY, PHYSICIAN Primary Care Unavailable Care Physician, No Primary Primary Care Provider Unavailable Dr. Pal Wilson Emergency Provider [phone] Dr. Addie Ayala Other Provider MD Minda Villagran Other Provider Dr. Shekhar Dunne Other Provider Dr. Magalie García Other Provider MD Martir Dubose Other Provider Unavailable Dr. Tye Bee Other Provider Dr. Tj Calvin Other Provider MD Brennan Simon Other Provider Unavailable MD Adilene Nava Other Provider Unavailable Dr. Justine Erazo Other Provider Dr. Judy Tena Other Provider Dr. Sarah Corrales Other Provider Dr. Valerio Coppola Other Provider Dr. Monica Lopez Other Provider Unavailable Dr. Deborah Miles Other Provider Dr. Karl Hoang Other Provider Dr. Juan Hayward Other Provider Dr. Sarai Montgomery Other Provider Dr. Azeb Ghotra Other Provider Dr. Pankaj Rao Admit Provider Dr. Pankaj Rao Attending Provider Dr. Pankaj Rao Other Provider Dr. Humberto Downs Other Provider MD Elio Santacruz Other Provider Stan, MS Chicho Other Provider MD Sandra Chandler Other Provider MD AILYN EATON Other Provider MD Kerwin Rachel Other Provider MD Shira Boss Other Provider Dr. Simin Moseley Attending Provider Dr. Simin Moseley Other Provider Dr. Rebekah Palomares Attending Provider JOHN CHAMBERS Attending Unavailable JOHN CHAMBERS Primary Care Unavailable JOHN CHAMBERS Admitting Unavailable Unavailable Primary Care Provider UnavailHumberto Soriano MD Unavailable [facility] SPIKE MACHINE HEATER.SSIS DEVELOPER, Mojgan Unavailable [phone] Humberto Downs MD Primary Care Provider Pcp SPIKE MACHINE HEATER, No Primary Care Provider Unavailabl e PHYSICIAN, NONE Primary Care Physician Unavailab le PHYSICIAN, NONE Primary Care Unavailable REFERRING, PHY WO ID Attending Unavailable Generic Provider MD, No Assigned Pcp Primary Car e Provider Unavailable Unavailable Primary Care Provider Unavailabl e GENERIC PROVIDER, NO ASSIGNED PCP Primary Care Unavailable Dr. Humberto Downs MD Primary Care Provider Dr. Humberto Downs MD Referring Provider Dr. Yang Del Rio MD Attending Provider Bailey TATUM, Dr. Lam Attending Provider Dr. Yang Del Rio MD Referring Provider Jelani TATUM, Dr. Welch Attending Provider Pcp, No (History) Primary Care Provider Unavaila ble HUMBERTO DOWNS Primary Care Unavailable JAVAN MENSAH Attending Unavail able CIRO MCCONNELL Admitting Unavailable DREW CUELLO S Referring Unavailable NED KENNY Attending Unavailable HUMBERTO DOWNS Primary Care Unavailable ADIS CHRISTIANSON Attending Unava ilable Dr. Skey Lopez DO Attending Provider Dr. Skye Lopez DO Referring Provider [phone] TORY LAMBERT Attending Unavailable CATHI PARKS Referring Unavailable MAC HAN Attending Unavailable HUMBERTO DOWNS Primary Care Unavailable CATHI PARKS Referring Unavailable TJ AHUMADA Attending Unavailable Dr. Humberto Downs MD Primary Care Provider Dr. Yang Del Rio MD Attending Provider [phone] Dr. Humberto Downs MD Referring Provider Humberto Downs Referring Unavailable Rebekah Palomares Attending Unavailable Humberto Downs Primary Care Unavailable Humberto Downs Referring Unavailable Humberto Downs Primary Care Unavailable Yang Del Rio Attending Unavailable Humberto Downs Referring Unavailable Humberto Downs Primary Care Unavailable Yang Del Rio Attending Unavailable Care Physician, No Primary Referring Unava ilable Care Physician, No Primary Primary Care Unava ilable Yang Del Rio Attending Unavailable Rebekah Palomares Referring Unavailable Rebekah Palomares Attending Unavailable Yareli, Humberto Primary Care Unavailable Bogdan Austin Attending Unavailable Yareli, Humberto Primary Care Unavailable Yareli, Humberto Primary Care Unavailable Nancy Riley Attending Unavailable Yareli, Humberto Primary Care Unavailable Pete Mcmahan Referring Unavailable Pete Mcmahan Attending Unavailable John, Skye Referring Unavailable John, Skye Attending Unavailable Yareli, Humberto Primary Care Unavailable John, Skye Referring Unavailable John, Skye Attending Unavailable Yareli, Humberto Primary Care Unavailable Yareli, Humberto Primary Care Unavailable Yareli, Humberto Referring Unavailable Jelani, Rebekah Attending Unavailable Yareli, Humberto Primary Care Unavailable Yareli, Humberto Referring Unavailable Jelani, Rebekah Attending Unavailable Yareli, Humberto Primary Care Unavailable Baddour, Yang Referring Unavailable Genaro Avalos Attending Unavailable John, Skye Referring Unavailable John, Skye Attending Unavailable Yareli, Humberto Primary Care Unavailable Yareli, Humberto Primary Care Unavailable Baddour, Yang Referring Unavailable Baddocheri, Yang Attending Unavailable Yareli, Humberto Primary Care Unavailable Baddocheri, Yang Attending Unavailable Baddour, Yang Referring Unavailable Yareli, Humberto Primary Care Unavailable Baddour, Yang Attending Unavailable Baddour, Yang Referring Unavailable Yareli, Humberto Primary Care Unavailable Jelani, Rebekah Referring Unavailable Jelani, Rebekah Attending Unavailable Yareli, Humberto Referring Unavailable Yareli, Humberto Attending Unavailable Yareli, Humberto Primary Care Unavailable Yareli, Humberto Primary Care Unavailable Baddour, Yang Attending Unavailable Baddour, Yang Referring Unavailable Yareli, Humberto Primary Care Unavailable Baddour, Yang Referring Unavailable Baddour, Yang Attending Unavailable Frank Cole Attending Unavailable Yareli, Humberto Primary Care Unavailable Yareli, Humberto Referring Unavailable Jelani, Rebekah Attending Unavailable Yareli, Humberto Primary Care Unavailable CATHI PARKS Attending Unavailable YARELI, HUMBERTO E Primary Care Unavailable BENDARAM, TALI IRENE Attending Unavaila ble YARELI, HUMBERTO E Primary Care Unavailable MEAGHAN BLOOM A Referring Unavailable BENDARAM, TALI IRENE Attending Unavaila ble MEAGHAN BLOOM A Referring Unavailable YARELI, HUMBERTO E Primary Care Unavailable BENDARAM, TALI IRENE Referring Unavaila ble YARELI, HUMBERTO E Primary Care Unavailable MEAGHAN BLOOM A Referring Unavailable YARELI, HUMBERTO E Primary Care Unavailable CHARLY, CATHI Referring Unavailable HUMBERTO DOWNS Primary Care Unavailable CATHI PARKS Attending Unavailable MEAGHAN BLOOM Referring Unavailable MEAGHAN BLOOM Attending Unavailable MOJGAN ELIZABETH Referring Unavailable MOJGAN ELIZABETH Attending Unavailable MARCEL NICHOLS Referring Unavailable MARCEL NICHOLS Attending Unavailable CATHI PARKS Referring Unavailable CATHI PARKS Attending Unavailable HUMBERTO DOWNS Primary Care Unavailable TALI CABALLERO Attending Unavaila ble HUMBERTO DOWNS Primary Care Unavailable Allergies Allergy Classification Reported Allergen(s) Allergy Type Date of Onset Reaction(s) Facility Unclassified (20 sources) Antihistimine; Translations: [ANTIHISTIMINE] Drug Allergy 06-19-20 15 Mental Status Change [facility] (13 sources) Ethylenediamine derivative antihistamine Propensity to adverse reactions 03-21-20 Other [facility] (20 sources) Shellfish; Translations: [shellfish derived] Propensity to adverse reactions 03-21-20 22 Diarrhea [facility] (17 sources) Antihistamines - Alkylamine Propensity to adverse reactions 03-21-20 22 Other, Unknown Reaction [facility] (13 sources) Antihistamines - Ethanolamine Propensity to adverse reactions 03-21-20 Other [facility] (13 sources) Antihistamines - Piperazine Propensity to adverse reactions 03-21-20 22 Other [facility] (13 sources) Antihistamines - Piperidine Propensity to adverse reactions 03-21-20 22 Other [facility] (20 sources) Metoclopramide; Translations: [METOCLOPRAMIDE] Drug Allergy 01-29-20 19 Mental Status Change, Other: See Comments, Anxiety, Hallucinations [facility] (20 sources) Prochlorperazine; Translations: [PROCHLORPERAZINE] Drug Allergy 01-29-20 19 Mental Status Change, Other: See Comments, Anxiety [facility] (20 sources) meloxicam; Translations: [MELOXICAM] Drug Allergy 04-18-20 23 Anaphylaxis, Hives, Itching, SOB, Wheezing [facility] (2 sources) meloxicam Drug Allergy 11-13-19 [facility] (2 sources) Metoclopramide Drug Allergy 11-13-19 [facility] (2 sources) Prochlorperazine Drug Allergy 11-13-19 [facility] (2 sources) Antihistamines - Alkylamine Drug allergy (disorder) 11-13-19 [facility] (1 source) diphenhydrAMINE Drug Allergy [facility] (1 source) meloxicam Drug Allergy [facility] (4 sources) Propylamine derivative antihistamine Propensity to adverse reactions 04-18-20 Anxiety, Palpitations [facility] Work Phone: (4 sources) Shellfish Propensity to adverse reactions 04-18-20 Nausea and Vomiting [facility] Work Phone: (1 source) ALLERGIES NOT ON FILE; Translations: [ALLERGIES NOT ON FILE] Propensity to adverse reactions (disorder) [place] [address] Repository (7 sources) Sertraline; Translations: [SERTRALINE] Drug Allergy 09-13-19 Other: See Comments [facility] (1 source) Sertraline Drug Allergy 12-10-19 [facility] Repository (1 source) Antihistamines - Ethylenediamine Drug allergy (disorder) 05-17-20 [facility] (1 source) Antihistamines - Ethanolamine Drug allergy (disorder) 05-17-20 [facility]ository (1 source) Antihistamines - Piperidine Drug allergy (disorder) 05-17-20 [facility] (1 source) Antihistamines - Piperazine Drug allergy (disorder) 05-17-20 [facility] Repository Medications Current Medications Medication Drug Class(es) Dates Sig (Normalized) Sig (Original) acetaminophen 325 mg oral tablet (20 sources) Start: 02-27-2023 take 325-650 mg by mouth every four hours as needed acetaminophen (TYLENOL) 325 mg tablet Take 1-2 tablets by mouth every 4 hours as needed for pain. 200 tablet 02/27/2023 Active Comment on above: Take 1-2 tablets by mouth every 4 hours as needed for pain. Take 1 to 2 tablets by mouth every 4 hours as needed for pain. acetaminophen 325 mg / oxyCODONE hydrochloride 5 mg oral tablet (6 sources) Opioid Agonist Start: 01-18-2022 take 1 tablet by mouth every six hours as needed Oxycodone-Acetamino phen Active 1 TABLET PO EVERY 6 HOURS NEEDED 20 5 January 18, 2022 [id number] 200 actuat albuterol 0.09 mg/actuat metered dose inhaler (20 sources) beta2-Adrenergic Agonist Start: 08-27-2023 Albuterol Sulfate 90 mcg/actuation HFA aerosol inhaler Active 1 NMA INHALATION DAILY as needed for shortness of breath or wheezing August 27, 2023 1:00am Start: 08-27-2023 Albuterol Sulf ate Active 1 INH INHALATION DAILY August 27, 2023 1:00am Start: 08-01-2023 End: 08-27-2023 Albuterol Sulfate (Proair Hf a) 90 mcg/actuation HFA aerosol inhaler Discontinued 2 NMA INHALATION EVERY 6 HOURS as needed for shortness of breath or wheezing 6.7 August 01, 2023 1:00am August 27, 2023 11:00pm Start: 08-01-2023 End: 08-27-2023 take 1 puff(s) by inhalation every six hours Albuterol Sulfate (Proair Hfa) 90 mcg/actuation HFA aerosol inhaler Discontinued 2 PUFF INHALATION EVERY 6 HOURS 6.7 August 01, 2023 1:00am August 27, 2023 11:00pm Start: 08-01-2023 End: 08-27-2023 take 90 ug by inhalation every four hours as needed Albuterol Discontinued 90 MCG INHALATION EVERY 4 HOURS NEEDED August 01, 2023 1:00am August 27, 2023 11:00pm Start: 08-01-2023 End: 08-27-2023 take 90 ug by inhalation every four hours as needed Albuterol Discontinued 90 MCG INHALATION EVERY 4 HOURS NEEDED August 01, 2023 12:00am August 27, 2023 10:00pm Start: 08-01-2023 take 90 ug by inhala tion every four hours as needed Albuterol Active 90 MCG INHALATION EVERY 4 HOURS NEEDED August 01, 2023 12:00am Start: 01-19-2022 take 90 ug by inhala tion every four hours as needed Albuterol Active 90 MCG INHALATION EVERY 4 HOURS NEEDED January 18, 2022 11:00pm Start: 01-19-2022 take 90 ug by inhala tion every four hours as needed Albuterol Active 90 MCG INHALATION EVERY 4 HOURS NEEDED January 19, 2022 12:00am Start: 02-24-2016 take 2 puff(s) by in halation every six hours as needed albuterol HFA (PROVENTIL HFA, VENTOLIN HFA) 90 mcg/actuation inhaler Inhale 2 Puffs as instructed every 6 hours as needed. 02/24/2016 Active Start: 02-24-2016 albuterol HFA (PROVENTIL HFA, VENTOLIN HFA) 90 mcg/actuation inhaler Inhale as instructed. 0 02/24/2016 Active albuterol sulfat e 90 mcg/actuation aepb Active Comment on above: Inhale as instructed . aspirin 81 mg chewable tablet (1 source) Platelet Aggregation Inhibitor, Nonsteroidal Anti-inflammatory Drug Start: 025 take 1 tablet by mouth once daily aspirin 81 mg chewable tablet 1 tablet by ORAL/FEEDING TUBE route once daily. 90 tablet 11/28/2024 Active atorvastatin 40 mg oral tablet (1 source) HMG-CoA Reductase Inhibitor Start: 025 take 1 tablet by mouth once daily at bedtime atorvastatin (LIPITOR) 40 mg tablet 1 tablet by ORAL/FEEDING TUBE route daily at bedtime. 90 tablet 11/27/2024 Active bictegravir 50 mg / emtricitabine 200 mg / tenofovir alafenamide 25 mg oral tablet (20 sources) Human Immunodeficiency Virus Nucleoside Analog Reverse Transcriptase Inhibitor Start: 023 take 1 tablet by mouth once BIKTARVY 50-200-25 mg per tablet Take 1 tablet by mouth every afternoon. 12/20/2022 Active Start: 11-25-2022 take 1 tablet by jacquelyn th once daily Mayvhmmry-Lromddxy-Ygbjqsx Ala (Biktarvy ) 50-200-25 mg Tablet Active 1 {tbl} PO DAILY November 25, 2022 12:00am Comment on above: Take 1 tablet by jacquelyn th every afternoon. Take 1 Tablet by jacquelyn th once daily busPIRone hydrochloride 5 mg oral tablet (20 sources) Start: take 2 tablets by mouth in the morning, then take 2 tablets by mouth once daily at bedtime Buspirone 5 mg tablet Active 5 mg PO .COMPLEX Shireen 22nd, 2025 10:53am 10 mg AM, 10 mg QHS Start: 03-10-2024 End: 08-11-2024 take 1 tablet by mouth in the morning, then take 2 tablets by mouth once daily at bedtime Buspirone 5 mg tablet Discontinued 5 mg PO .COMPLEX March 31, 2024 2:02pm August 11, 2024 10:54am 5 mg AM, 10 mg QHS take 1 tablet by jacquelyn th twice daily busPIRone (BUSPAR) 10 mg tablet Take 10 mg by mouth two times a day. Active cholecalciferol 0.025 mg oral capsule (20 sources) Vitamin D Start: 03-31-2024 take 1 capsule by mouth once daily Cholecalciferol (Vitamin D3) (Vitamin D3) 25 mcg (1,000 unit) capsule Active 25 ug PO daily March 31, 2024 2:03pm Start: 11-25-2022 End: 03-31-2024 take 1 capsule by mouth twice daily Cholecalciferol (Vitamin D3) (Vitamin D3) 25 mcg (1,000 unit) Capsule Discontinued 25 ug PO TWICE A DAY November 25, 2022 12:00am March 31, 2024 2:04pm Start: 11-25-2022 Cholecalcifero l (Vitamin D3) (Vitamin D3) 25 mcg (1,000 unit) Capsule Active November 24, 2022 11:00pm Start: 12-23-2021 take 1 tablet by jacquelyn th once daily cholecalciferol (VITAMIN D3) 50 mcg (2,000 unit) tablet Take 2,000 Units by mouth once daily. 12/23/2021 Active Start: 12-23-2021 take 1 tablet by jacquelyn th once daily cholecalciferol (VITAMIN D3) 1,000 unit tab tablet Take 1,000 Units by mouth once daily. 12/23/2021 Suspended Start: 12-23-2021 cholecalcifero l (VITAMIN D3) 1,000 unit tab tablet DULoxetine 30 mg delayed release oral capsule (20 sources) Serotonin and Norepinephrine Reuptake Inhibitor Start: 01-17-2022 take 60 mg by mouth once daily Duloxetine Active 60 MG PO DAILY January 17, 2022 10:22pm Start: 07-27-2021 End: 01-17-2022 take 1 capsule by mouth once daily Duloxetine 30 mg capsule,delayed release(DR/EC) Discontinued 30 mg PO DAILY July 27, 2021 1:00am January 17, 2022 10:22pm emtricitabine 200 mg / tenofovir disoproxil fumarate 300 mg oral tablet (2 sources) Human Immunodeficiency Virus Nucleoside Analog Reverse Transcriptase Inhibitor Start: 09-03-2022 take 1 tablet by mouth once daily Emtricitabine-Tenofovir (Tdf) (Truvada) 200-300 mg tablet Active 1 TABLET PO DAILY September 03, 2022 1:00am FLUoxetine 40 mg oral capsule (20 sources) Serotonin Reuptake Inhibitor Start: 04-14-2024 take 1 capsule by mouth once daily Fluoxetine 40 mg capsule Active 40 mg PO daily April 14, 2024 12:00am Start: 03-10-2024 End: 06-07-2024 take 1 capsule by mouth once daily Fluoxetine 20 mg capsule Discontinued 20 mg PO daily March 10, 2024 12:00am April 14, 2024 2:15pm fluticasone propionate 0.05 mg/actuat metered dose nasal spray (3 sources) Corticosteroid Start: 03-31-2024 take 50 ug nasal route once daily Fluticasone Propionate (Flonase Allergy Relief) 50 mcg/actuation spray,suspension Active 1 NMA INTRANASAL daily March 31, 2024 12:00am administer into each nostril iv contrast (will be provided with radiology test) (1 source) Start: 07-25-2022 End: 07-26-2022 iv contrast (will be provided with radiology [...] Take 1 tablet by mouth once daily. Suspended take 1 tablet by mouth once jerson y Lactobac no.41/Bifidobact no.7 (PROBIOTIC-10 ORAL) Take 1 tablet by mouth once daily. Active Lactobac no.41/B ifidobact no.7 (PROBIOTIC-10 ORAL) Lactobacillus Combination No.9 (Adult 50 Plus Probiotic) 4 billion cell capsule (3 sources) Start: 03-10-2024 take 4 capsules by mouth once daily Lactobacillus Combination No.9 (Adult 50 Plus Probiotic) 4 billion cell capsule Active 4000 NMA PO DAILY March 10, 2024 12:00am melatonin 5 mg oral capsule (20 sources) take 1-2 capsules by mouth every twenty-four hours as needed Melatonin 5 mg cap Take 1-2 capsules by mouth at bedtime as needed for insomnia. Active meloxicam 15 mg oral tablet (4 sources) Nonsteroidal Anti-inflammatory Drug Start: 01-28-2023 End: 02-27-2023 take 1 tablet by mouth once daily meloxicam (MOBIC) 15 mg tablet Take 1 tablet by mouth once daily. 30 tablet 1 01/28/2023 02/27/2023 Active Comment on above: Take 1 tablet by jacquelyn th once daily. methylPREDNISolone (2 sources) Corticosteroid Start: 01-28-2023 End: 02-02-2023 methylPREDNISolone (MEDROL, CM,) 4 mg Dose-Pack Take as directed 21 tablet 0 01/28/2023 02/02/2023 Active Comment on above: Take as directed Uzngzfjc-Qyh-Mxfly-Vit K-Lycop (One-A-Day Men's Multivitamin) 400-20-300 mcg tablet (3 sources) Start: 03-31-2024 Iytbxhdn-Bsi-Evrqg-Vi t K-Lycop (One-A-Day Men's Multivitamin) 400-20-300 mcg tablet Active {tbl} PO March 31, 2024 12:00am multivitamin tablet (20 sources) take 1 tablet by mouth once daily multivitamin tablet Take 1 tablet by mouth once daily. Suspended take 1 tablet by mouth once jerson y multivitamin tablet Take 1 tablet by mouth once daily. Active omeprazole 40 mg delayed release oral capsule (20 sources) Proton Pump Inhibitor Start: 08-11-2024 End: 11-09-2024 take 1 capsule by mouth once daily Omeprazole 40 mg capsule,delayed release(DR/EC) Active 40 mg PO daily September 13, 2024 1:00am Start: 10-24-2019 End: 09-13-2024 take 1 tablet by mouth once daily Omeprazole 20 mg Tablet,Delayed Release (Dr/Ec) Discontinued 20 mg PO DAILY January 19, 2022 12:00am September 13, 2024 2:46pm Comment on above: Take by mouth. pantoprazole 40 mg delayed release oral tablet (6 sources) Proton Pump Inhibitor Start: End: take 1 tablet by mouth once daily pantoprazole DR (PROTONIX) 40 mg tablet TAKE 1 TABLET BY MOUTH EVERY DAY 90 tablet 1 12/01/2024 Active polyethylene glycol 3350 99249 mg powder for oral solution (3 sources) Osmotic Laxative Start: Polyethylene Glycol 3350 (Miralax) 17 gram/dose powder Active 17 GM PO DAILY 119 May 20, 2022 10:25pm potassium chloride 20 meq extended release oral tablet (5 sources) Start: take 20 mEq by mouth twice daily Potassium Chloride Active 20 MEQ PO TWICE A DAY 6 January 19, 2022 12:00am propranolol hydrochloride 20 mg oral tablet (20 sources) beta-Adrenergic Kimmie Start: take 1 tablet by mouth once daily Propranolol 20 mg tablet Active 20 mg PO daily March 10, 2024 12:00am raltegravir 400 mg oral tablet (2 sources) Human Immunodeficiency Virus Integrase Strand Transfer Inhibitor Start: 023 take 1 tablet by mouth twice daily Raltegravir (Isentress) 400 mg tablet Active 400 MG PO TWICE A DAY 56 September 03, 2022 1:00am sucralfate 1000 mg oral tablet (1 source) Aluminum Complex Start: End: take 1 tablet by mouth four times daily sucralfate (CARAFATE) 1 gram tablet Take 1 tablet by mouth four times daily. 120 tablet 08/11/2024 09/10/2024 Active SUMAtriptan 50 mg oral tablet (4 sources) Serotonin-1b and Serotonin-1d Receptor Agonist Start: 025 take 1 tablet by mouth every two hours as needed for headache, then take 2 tablets by mouth once daily as needed for headache Sumatriptan Succinate 50 mg tablet Active 50 mg PO .COMPLEX August 11, 2024 1:00am Take 1 tablet orally every two hours as needed for headache up to two tablets per day tadalafil 5 mg oral tablet (2 sources) Phosphodiesterase 5 Inhibitor Start: 025 take 1 tablet by mouth once daily Tadalafil (CIALIS) 5 mg tablet Take 1 tablet by mouth once daily. 10/14/2024 Active valsartan 160 mg oral tablet (20 sources) Angiotensin 2 Receptor Kimmie Start: 024 take 1 tablet by mouth once daily Valsartan 160 mg tablet Active 160 mg PO DAILY March 10, 2024 12:00am Completed/Discontinued Medications Medication Drug Class(es) Dates Sig (Normalized) Sig (Original) Albuterol 90 mcg/actuation aerosol (3 sources) Start: 08-01-2023 End: 08-27-2023 take 90 ug by inhalation every four hours as needed Albuterol 90 mcg/actuation aerosol Discontinued 90 ug INHALATION EVERY 4 HOURS NEEDED as needed for sob August 01, 2023 1:00am August 27, 2023 11:00pm amoxicillin 875 mg / clavulanate 125 mg oral tablet (13 sources) Penicillin-class Antibacterial Start: 08-01-2023 End: 08-27-2023 Amoxicillin-Pot Clavulanate 875-125 mg tablet Discontinued 1 {tbl} PO TWICE A DAY August 01, 2023 1:00am August 27, 2023 11:00pm Start: 08-01-2023 End: 08-27-2023 take 1 tablet by mouth twice daily Amoxicillin-Pot Clavulanate Discontinued 1 TABLET PO TWICE A DAY August 01, 2023 1:00am August 27, 2023 11:00pm Start: 04-09-2023 End: 04-19-2023 take 1 tablet by mouth twice daily amoxicillin-pot clavulanate (AUGMENTIN) 875-125 mg per tablet TAKE 1 TABLET BY MOUTH TWICE DAILY FOR 10 DAYS 04/10/2023 Active Comment on above: Take 1 tablet by jacquelyn th twice daily for 10 days. FOR 7 DAYS. TAKE 1 TABLET BY [facility] TWICE DAILY FOR 10 DAYS calcium chloride 0.0014 meq/ml / potassium chloride 0.004 meq/ml / sodium chloride 0.103 meq/ml / sodium lactate 0.028 meq/ml injectable solution (1 source) Start: 025 End: take 30 mL intravenously every hour 30 mL/hr, INTRAVENOUS, CONTINUOUS, Starting on Fri11/24/24 at 0900, Until Fri11/24/24 at 1023, Preprocedure cephalexin 500 mg oral capsule (5 sources) Cephalosporin Antibacterial Start: take 1 capsule by mouth three times daily cephALEXin (KEFLEX) 500 mg capsule Take 1 capsule by mouth three times daily. 21 capsule 0 01/28/2023 Active Comment on above: Take 1 capsule by [facility] three times daily.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 Del Rio MD PROCEDURE: BRAIN W/WO CONTRAST 11/30/2024 REASON FOR EXAM: FAM HX CEREBRAL ANEURYSM; SYNCOPE; MIGRAINE HEADAC TECHNIQUE: Routine brain MRI without and with intravenous contrast. Multiplanar and multisequence images were obtained. CONTRAST: Clariscan VOLUME: 15 mL IV COMPARISON: Brain MRI of 08/28/2023. FINDINGS: Brain: Normal signal intensities. Following intravenous contrast administration, no area of abnormal enhancement is seen. Diffusion: Diffusion-weighted images demonstrate no area of restricted diffusion. Ventricles: Normal. Major Intracranial Vessels: No abnormality is identified Sinuses: Visualized paranasal sinuses appear clear. Mastoids: Clear. No orbital pathology is noted. Internal auditory canals appear symmetric and within MRI/Brain W/WO Contrast IMPRESSION: No significant abnormality is identified. Reading Location: [place] [address] CC: Dr. Yang Del Rio MD; Dr. Humberto Downs MD ~ Kineseologist: Signed [facility] Brain W/WO Contraston 2024 Brain W/WO Contrast [facility] Imaging Services [address] [place] [address] Brain W/WO Contrast MR#: [id number] Acct: [id number] Name: FAUSTINO UNGER Rep #: [id number] : 1990 M 34 From: Gutierrez Mayer PCP: Dr. Humberto Downs MD Status: REG CLI Study: Brain W/WO Contrast Date of Exam: 11/30/24 Exam# [id number] Ordering Dr: Yang Del Rio MD PROCEDURE: BRAIN W/WO CONTRAST 11/30/2024 REASON FOR EXAM: FAM HX CEREBRAL ANEURYSM; SYNCOPE; MIGRAINE HEADAC TECHNIQUE: Routine brain MRI without and with intravenous contrast. Multiplanar and multisequence images were obtained. CONTRAST: Clariscan VOLUME: 15 mL IV COMPARISON: Brain MRI of 08/28/2023. FINDINGS: Brain: Normal signal intensities. Following intravenous contrast administration, no area of abnormal enhancement is seen. Diffusion: Diffusion-weighted images demonstrate no area of restricted diffusion. Ventricles: Normal. Major Intracranial Vessels: No abnormality is identified Sinuses: Visualized paranasal sinuses appear clear. Mastoids: Clear. No orbital pathology is noted. Internal auditory canals appear symmetric and within MRI/Brain W/WO Contrast IMPRESSION: No significant abnormality is identified. Reading Location: [place] [address] CC: Dr. Yang Del Rio MD; Dr. Humberto Downs MD Kineseologist: Signed Normal [facility] Basic metabolic 2000 panelon 11-27-2024 Anion gap [Moles/Vol] 8 mmol/L Normal 8-15 [facility] Comment on above: Order Comment: Speci men Type: BLOOD SPECIMENOrdering Facility: [facility] Address: [facility] [place] [address] Performed By: #### 1 9123-9, 67468-6, 2777-1 ####[facility] LABORATORYCLIA [id number] [place] [address] [place] Calcium [Mass/Vol] 9.2 mg/dL Normal 8.5-10.2 [facility] Comment on above: Order Comment: Speci men Type: BLOOD SPECIMENOrdering Facility: [facility] Address: [address] [place] [address] Performed By: #### 1 9123-9, 48613-8, 2776- ####[facility]ATORYCLIA [id number] [address] [place] Chloride [Moles/Vol] 106 mmol/L Normal 98-107 [facility] Comment on above: Order Comment: Speci men Type: BLOOD SPECIMENOrdering Facility: [facility] Address: [address] [place] [address] Performed By: #### 1 9123-9, 00179-4, 2776-07 ####[facility]ORYCLIA [id number] [address] [place] CO2 [Moles/Vol] 25 mmol/L Normal 22-30 [facility] Comment on above: Order Comment: Speci men Type: BLOOD SPECIMENOrdering Facility: [facility] Address: [address] [place] [address] Performed By: #### 1 9123-9, 22290-7, 2776-07 ####[facility]ATORYCLIA [id number] [address] STATES OF [facility] Creatinine [Mass/Vol] 0.77 mg/dL Normal 0.73-1.22 [facility] Comment on above: Order Comment: Speci men Type: BLOOD SPECIMENOrdering Facility: [facility] Address: [address] [place] [address] Performed By: #### 1 9123-9, 90306-1, 2776-07 ####[facility]ATORYCLIA [id number] [address] Creatinine and Glomerular filtration rate.predicted panel (S/P/Bld) 119 mL/min/1.73m??? Normal >=60 [facility] Comment on above: Order Comment: Speci men Type: BLOOD SPECIMENOrdering Facility: [facility] Address: [address] [place] [address] Result Comment: Mar mated Glomerular Filtration Rate [...] accurately reflect actual GFR. Performed By: #### 1 9123-9, 02461-2, 2776-07 ####[facility]ATORYCLIA [id number] [place] [address] [place] Glucose [Mass/Vol] 88 mg/dL Normal 74-99 [facility] Comment on above: Order Comment: Joie xiao Type: BLOOD SPECIMENOrdering Facility: [facility] Address: [address] [place] [address] Result Comment: The [place] Diabetes Association (ADA) provides guidance for cutoff [...] Standards of Medical Care in Diabetes 2016, [place] [employer]. Diabetes Care. 2016.39(Suppl 1). Performed By: #### 1 9123-9, 00161-4, 2776-07 ####[facility]ATORYCLIA [id number] [place] [address] [place] Potassium [Moles/Vol] 4.1 mmol/L Normal 3.7-5.1 [facility] Comment on above: Order Comment: Joie xiao Type: BLOOD SPECIMENOrdering Facility: [facility] Address: [address] [place] [address] Performed By: #### 1 9123-9, 85430-8, 2776 ####[facility]ORATORYCLIA [id number] [address] STATES OF [facility] Sodium [Moles/Vol] 139 mmol/L Normal 136-144 [facility] Comment on above: Order Comment: Speci men Type: BLOOD SPECIMENOrdering Facility: [facility] Address: [address] [place] [address] Performed By: #### 1 9123-9, 63283-6, 2776-07 ####[facility]ATORYCLIA [id number] [address] [place] Urea nitrogen [Mass/Vol] 14 mg/dL Normal 9-24 [facility] Comment on above: Order Comment: Speci men Type: BLOOD SPECIMENOrdering Facility: [facility] Address: [address] [place] [address] Performed By: #### 1 9123-9, , 27701-18 ####[facility]ATORYCLIA [id number] [address] [place] CBC panel Auto (Bld)on 11-27 Erythrocyte distribution width (RBC) [Ratio] 14.0 % Normal 11.5-15.0 [facility] Comment on above: Order Comment: Speci men Type: BLOOD SPECIMEN [facility] Address: [address] [place] [address] Performed By: #### C ORPNL #### [facility] CLIA [id number] [address] [place] [address] STATES OF [facility] Hematocrit (Bld) [Volume fraction] 44.1 % Normal 39.0-51.0 [facility] Comment on above: Order Comment: Speci men Type: BLOOD SPECIMEN [facility] Address: [address] [place] [address] Performed By: #### C ORPNL #### [facility] CLIA [id number] [address] [place] Hemoglobin (Bld) [Mass/Vol] 14.9 g/dL Normal 13.0-17.0 [facility] Comment on above: Order Comment: Speci men Type: BLOOD SPECIMEN [facility] Address: [address] [place] [address] Performed By: #### C ORPNL #### [facility] CLIA [id number] [address] MCH (RBC) [Entitic mass] 31.2 pg Normal 26.0-34.0 [facility] Comment on above: Order Comment: Speci men Type: BLOOD SPECIMEN [facility] Address: [address] [place] [address] Performed By: #### C ORPNL #### [facility] CLIA [id number] [address] MCHC (RBC) [Mass/Vol] 33.8 g/dL Normal 30.5-36.0 [facility] Comment on above: Order Comment: Speci men Type: BLOOD SPECIMEN [facility] Address: [address] [place] [address] Performed By: #### C ORPNL #### [facility] CLIA [id number] [address] MCV (RBC) [Entitic vol] 92.5 fL Normal 80.0-100.0 [facility] Comment on above: Order Comment: Speci men Type: BLOOD SPECIMEN [facility] Address: [address] [place] [address] Performed By: #### C ORPNL #### [facility] CLIA [id number] [address] Nucleated RBC (Bld) [#/Vol] 10*3/uL Normal <0.01 [facility] Comment on above: Order Comment: Speci men Type: BLOOD SPECIMEN [facility] Address: [address] [place] [address] Performed By: #### C ORPNL #### [facility] CLIA [id number] [address] [place] Platelet mean volume (Bld) [Entitic vol] 8.7 fL Low 9.0-12.7 [facility] Comment on above: Order Comment: Speci men Type: BLOOD SPECIMEN [facility] Address: [address] [place] [address] Performed By: #### C ORPNL #### [facility] CLIA [id number] [address] [place] Platelets (Bld) [#/Vol] 241 10*3/uL Normal 150-400 [facility] Comment on above: Order Comment: Speci men Type: BLOOD SPECIMEN [facility] Address: [address] [place] [address] Performed By: #### C ORPNL #### [facility] CLIA [id number] [address] RBC (Bld) [#/Vol] 4.77 10*6/uL Normal 4.20-6.00 [facility] Comment on above: Order Comment: Speci men Type: BLOOD SPECIMEN [facility] Address: [address] [place] [address] Performed By: #### C ORPNL #### [facility] CLIA [id number] [address] WBC (Bld) [#/Vol] 6.51 10*3/uL Normal 3.70-11.00 [facility] Comment on above: Order Comment: Speci men Type: BLOOD SPECIMEN [facility] Address: [address] [place] [address] Performed By: #### C ORPNL #### [facility] CLIA [id number] [address] CNDSon 11-27-2024 CNDS HNO ID: [id number] Author: NED KENNY MD Service: Hospital Medicine Author Type: Physician Type: Discharge Summary Filed: 11/27/2024 13:33 Note Text: DISCHARGE SUMMARY PATIENT NAME: Faustino Unger Code Status: Full Code Highest Readmission Risk Score: 15 The 30 day readmissions risk score is derived from an internally validated risk model which evaluates patient level characteristics, utilization history, medication orders and lab results up until the day of discharge. Patients with a score of 39 or above are considered highest risk for readmission. Specific patient level drivers will be listed at the bottom of the summary. Admission Information Admission Information ADMIT DATE: 11/24/2024 DISCHARGE DATE: 11/27/2024 MY DOCTORS AND MEDICAL TEAM: My Main Hospital Doctor: Ned Kenny MD Primary Care Provider: No (History) Pcp My Medical Team Members: Treatment Team: Attending Provider: Ned Kenny MD Primary Service: GERA BRAMBILA MY CONDITION AT DISCHARGE: Stable REASON I WAS IN THE HOSPITAL: Stroke SUMMARY OF WHAT HAPPENED WHILE I WAS IN THE HOSPITAL: Faustino Unger is a 34 year old male with history of HIV on HAART therapy, APKD, HTN, tobacco abuse, colon polyps who presented to outside hospital 11/24 for elective EGD for recent melena (findings consistent with gastritis). Following the procedure there was concern for acute L facial droop and left sided weakness, NIHSS of 12, transferred here for stroke workup and was monitored in neuro ICU initially. NCCT head and CTA head/neck were unremarkable. Given disabling deficits, decision made to administer IV TNK despite recent GI procedure (benefits felt to outweigh risks). Subsequently patient's symptoms improved. Neurology evaluated. Echo was obtained showing mild LVH, preserved EF. MRI brain was obtained which showed a small punctate hyperintensity in the right frontal lobe, likely sequale of ischemic insult (stroke aborted by TNK). Spot EEG was unremarkable. Neurology recommended aspirin, statin, follow up outpatient for further hypercoagulability workup. He has appointment coming up to establish with PCP. His SBP was 110-120 during hospitalization despite holding home anti-hypertensives so they were discontinued on discharge. Recommend continued BP home monitoring and log, re-addition of valsartan if needed to achieve SBP goal <130. He was discharged home in stable condition. OTHER PROBLEMS/DIAGNOSIS: Principal Problem: Stroke aborted by administration of thrombolytic agent (HCC) Active Problems: Heartburn History of colonic polyps Thrombolytic medication administered within last 5 days Hypoglycemia Nicotine use disorder, F17.2 Resolved Problems: * No resolved hospital problems. * OPERATIONS PERFORMED WHILE IN THE HOSPITAL: None IMPORTANT TEST/PROCEDURES: Echocardiogram TEST RESULTS NOT AVAILABLE AT THIS TIME: No pending results Discharge Disposition Discharge Disposition: Home With Self Care Follow Up Appointments Follow-Up Appointment Hospital follow up With: PCP When: In 1 week Patient/Parents to call for appointment?: Yes Additional Provider to Provider Information: Transitions of Care Critical Issues: LABS AND PROCEDURES PENDING AT DISCHARGE: No pending results. Sepsis Ruled Out FOLLOW-UP APPOINTMENTS ALREADY SCHEDULED WITH A [facility] PROVIDER: Future Appointments Date Time Provider Department Center 12/08/2024 1:00 PM Marcel Nichols APRN.CNP [facility] 10/28/2025 12:00 PM Tali Caballero MD [facility] [place] [facility] Allergen Reactions Antihistimine Mental Status Change Metoclopramide Mental Status Change Mobic [Meloxicam] Anaphylaxis Prochlorperazine Mental Status Change Zoloft [Sertraline] Other: See Comments Chest pain, arrhythmia Shellfish Derived Diarrhea DISCHARGE MEDICATION: Medication List START taking these medications aspirin 81 mg chewable tablet 1 tablet by ORAL/FEEDING TUBE route once daily. Start taking on: November 28, 2024 atorvastatin 40 mg tablet Commonly known as: LIPITOR 1 tablet by ORAL/FEEDING TUBE route daily at bedtime. CONTINUE taking these medications acetaminophen 325 mg tablet Commonly known as: TYLENOL Take 1-2 tablets by mouth every 4 hours as needed for pain. albuterol HFA 90 mcg/actuation inhaler Commonly known as: PROVENTIL HFA, VENTOLIN HFA BIKTARVY 50-200-25 mg per tablet Generic drug: bictegravir-emtricitabine -tenofovir alafenamide busPIRone 10 mg tablet Commonly known as: BUSPAR cholecalciferol 50 mcg (2,000 unit) tablet Commonly known as: VITAMIN D3 FLUoxetine 40 mg capsule Commonly known as: PROzac Melatonin 5 mg Cap multivitamin tablet pantoprazole DR 40 mg tablet Commonly known as: PROTONIX Take 1 tablet by mouth once daily. PROBIOTIC-10 ORAL Tadalafil 5 mg tablet Commonly known as: CIALIS STOP taking these medications (more content not included)... [facility] CONSULT [facility] 11-27-2024 CONSULT PROG HNO ID: [id number] Author: DOLORES TIDWELL APRN.SAL Service: Neurology General Author Type: Nurse Practitioner Type: Consult Progress Note Filed: 11/27/2024 12:26 Note Text: NEURO CONSULT PROGRESS NOTE SERVICE DATE: 11/27/2024 SERVICE TIME: 1050 Subjective INTERVAL HISTORY: Patient seen in room. NAEON. Testing, medications, diagnosis, labs reviewed with patient. All questions answered to satisfaction. He feels totally back to baseline. Neurological ROS: No complaint of headache No complaint of tinnitus No complaint of decreased hearing No complaint of diplopia No complaints of blurred vision. No complaint of arm/leg numbness No problem with limb coordination No complaint of syncope No complaints of seizures. No complaints of memory changes or disorientation. MEDICATIONS Current Facility-Administered Medications Medication Dose Route Frequency senna-docusate 8.6-50 mg 1 tablet (SENNA-S) 1 tablet ORAL/FEEDING TUBE BID bisacodyl 10 mg suppository (DULCOLAX) 10 mg RECTAL DAILY PRN ondansetron (PF) 4 mg injection (ZOFRAN) 4 mg INTRAVENOUS q 4 H PRN NaCl 0.9% iv flush bag 20 mL INTRAVENOUS PRN atorvastatin 40 mg tab(s) (LIPITOR) 40 mg ORAL/FEEDING TUBE AT BEDTIME sodium chloride 0.9 % (flush) 2-10 mL (BD POSIFLUSH) 2-10 mL INTRAVENOUS DIRECTED PRN And perflutren lipid microspheres 1.1 mg/mL 1.3 mL injection (DEFINITY) 1.3 mL INTRAVENOUS DIRECTED PRN dextrose 15 gram/32 mL 15 g (TRUEPLUS) 15 g ORAL PRN Or glucagon 1 mg injection 1 mg INTRAMUSCULAR PRN Or dextrose 10% iv bolus 12.5 g INTRAVENOUS PRN bictegravir-emtricitabine -tenofovir alafenamide 50-200-25 mg 1 tablet (BIKTARVY) 1 tablet ORAL DAILY WITH BREAKFAST FLUoxetine 40 mg cap(s) (PROzac) 40 mg ORAL/FEEDING TUBE DAILY pantoprazole DR 40 mg tab(s) (PROTONIX) 40 mg ORAL DAILY (6 AM) acetaminophen 650 mg tab(s) (TYLENOL) 650 mg ORAL/FEEDING TUBE q 4 H PRN busPIRone 10 mg tab(s) (BUSPAR) 10 mg ORAL/FEEDING TUBE BID heparin 5,000 Units injection 5,000 Units SUBCUTANEOUS q 8 H aspirin 81 mg chewable tab(s) 81 mg ORAL/FEEDING TUBE DAILY Objective PHYSICAL EXAM Vital Signs: BP 113/79 Pulse 64 Temp 36.8 ?C (98.2 ?F) (Oral) Resp 18 Ht 172.7 cm (5' 8) Wt 78.3 kg (172 lb 9.9 oz) SpO2 99% BMI 26.25 kg/m? NEUROLOGICAL: LOC: 0 - alert and responsive 0 LOC Questions: 0 - both correct 0 LOC Commands: 0 - both correct 0 Best Gaze: 0 - normal gaze 0 Visual Byrd: 0 - no visual loss 0 Facial Palsy: 0 - normal 0 Motor Left Arm: 0 - no drift 0 Motor Right Arm: 0 - no drift 0 Motor Left Le - no drift 0 Motor Right Le - no drift 0 Limb Ataxia: 0 - no ataxia (or aphasic, hemiplegic) 0 Sensory: 0 - normal 0 Best Language: 0 - normal 0 Dysarthria: 0 - normal 0 Extinction and Inattention: 0 - normal, none detected (or visual loss alone) 0 Daily NIHSS Score: 0 (11/27/24 1050 : Dolores Tidwell, SPIKE MACHINE HEATER.SSIS DEVELOPER) 0 Alert and oriented to person, place, month year Speech clear fluent No facial asym PERRL EOMI VFF MAEx4 5/5 strength Sensation intact LT DATA: Diagnostic tests reviewed for today's visit: Lipids, HbA1c, Recent Labs 11/24/24 2325 CHOL 165 HDL 44 LDL 100* TG 118 HBA1C 5.0 CMP, CBC, Coags Recent Labs 11/27/24 0533 11/26/24 0608 11/25/24 1147 11/25/24 0227 NA 139 140 -- 141 K 4.1 4.1 -- 3.6* CHLOR 106 103 -- 106 CO2 25 27 -- 24 BUN 14 10 -- 7* CREAT 0.77 0.83 -- 0.84 GLUC 88 98 -- 89 CA 9.2 8.8 -- 9.0 MG 1.8 1.8 -- 1.7 P 5.1* 3.8 -- 4.1 WBC 6.51 5.33 -- 7.92 HB 14.9 14.3 -- 13.7 HCT 44.1 42.2 -- 40.0 PLT 241 232 -- 227 INR -- -- 1.0 -- APTT -- -- 21.8* -- Most recent labs and imaging results. MEDICAL EVENTS: No medical events have been recorded. STROKE 9 CARE AND PREVENTION CHECKLIST 1. Is the patient currently on an ANTITHROMBOTIC medication (Antiplatelet or Anticoagulant): Aspirin 2. Does the patient have known AFIB/FLUTTER: No 3. Is the patient on a STATIN: Atorvastatin 40 mg 4. Is the patient on VTE prophylaxis: Pharmacological prophylaxis Pharmacological intervention type: Heparin SQ 5. GLYCEMIC Control Medications: BG well controlled 6. Stroke BP Goals: SBP <140 Stroke BP Control: BP well controlled 7. Stroke IVF/Nutrition: Diet 8. TEMPERATURE Control: Normothermic 9. Does the patient need THERAPY: No Reason for no therapy orders: Patient is at baseline, no therapy needed Stroke Care and Prevention (personally reviewed by Dolores Tidwell APRN.SSIS DEVELOPER): Daily Rounding Date: 11/27/24 Daily Rounding Time: 1050 PROBLEM LIST: Principal Problem: Stroke-like symptoms (POA: Yes) Active Problems: Heartburn (POA: Yes) History of colonic polyps (POA: Yes) Thrombolytic medication administered within last 5 days (POA: Yes) Hypoglycemia (POA: Yes) Nicotine use disorder, F17.2 (POA: Unknown) Resolved Problems: * No resolved hospital problems. * Impression/Recommendation s IMPRESSION #1 Acute L side (more content not included)... [facility] Magnesium SerPl-mCncon 11-27 Magnesium [Mass/Vol] 1.8 mg/dL Normal 1.7-2.3 [facility] Comment on above: Order Comment: Joie xiao Type: BLOOD SPECIMEN [facility] Facility[facility] Address: [address] [place] [address] Performed By: #### C ORPNL #### [facility] CLIA [id number] [address] [place] [address] [place] Phosphate SerPl-mCncon 11-27 Phosphate [Mass/Vol] 5.1 mg/dL High 2.7-4.8 [facility] Comment on above: Order Comment: Joie xiao Type: BLOOD SPECIMEN [facility]ing Facility: [facility] Address: [address] [place] [address] Performed By: #### C ORPNL #### [facility] CLIA [id number] [address] STATES OF [facility] ALLIED HEALTHon 11-26-2024 ALLIED HEALTH HNO ID: [id number] Author: SVITLANA BERNAL MRI Tech Service: Radiology Author Type: Water Service Dispatcher Type: Allied Health Filed: 11/26/2024 20:33 Note Text: Radiology Service Progress Note DATE OF SERVICE: November 26, 2024 TIME: 8:32 PM PATIENT IDENTITY VERIFICATION COMPLETED USING TWO (2) STANDARD IDENTIFIERS: Name and Date of confirmed by patient verbally and Name and Date of confirmed by identification band. FALL SCREENING: Has the patient had 2 falls in the last year or 1 fall with injury or currently using an Ambulatory Assistive Device (Walker, Cane, Wheelchair, Crutches, etc.)? Inpatient: Screened on floor PATIENT GENDER DATA: Assigned male at PATIENT RELEVANT IMPLANT DATA REVIEWED: Yes PATIENT PRESENTS WITH AN IMPLANTABLE OR ATTACHED MANAGER LABOR RELATIONS: No ALLERGIES: Reviewed and unchanged CONTRAST ALLERGY: NO. EXAM: MRI - CONTRAST TYPE: GROUP II PERIPHERAL IV DATA: Inpatient - refer to LDA documentation RADIOLOGY DEPARTMENT: MR; Exam(s) Completed: Head: Routine Brain. Lavender Administered: No SIGNATURE: ABIMBOLA Gomez PATIENT NAME: Faustino Unger DATE: November 26, 2024 TIME: 8:32 PM Normal [facility] Basic metabolic 2000 panelon 11-26-2024 Anion gap [Moles/Vol] 10 mmol/L Normal 8-15 [facility] Comment on above: Order Comment: Speci men Type: BLOOD SPECIMEN [facility] Facility[facility] Address: [address] [place] [address] [address] Performed By: #### 5 8410-2 #### [facility] CLIA [id number] [address] Calcium [Mass/Vol] 8.8 mg/dL Normal 8.5-10.2 [facility] Comment on above: Order Comment: Speci men Type: BLOOD SPECIMEN Ordering Facility: [facility] Address: [address] [place] [address] Performed By: #### 5 8410-2 #### [facility] CLIA [id number] [address] [place] Chloride [Moles/Vol] 103 mmol/L Normal 98-107 [facility] Comment on above: Order Comment: Speci men Type: BLOOD SPECIMEN Ordering Facility: [facility] Address: [address] [place] [address] Performed By: #### 5 8410-2 #### [facility] CLIA [id number] [address] [place] CO2 [Moles/Vol] 27 mmol/L Normal 22-30 [facility] Comment on above: Order Comment: Speci men Type: BLOOD SPECIMEN Ordering Facility: [facility] Address: [address] [place] [address] Performed By: #### 5 8410-2 #### [facility] CLIA [id number] [address] OF [facility] Creatinine [Mass/Vol] 0.83 mg/dL Normal 0.73-1.22 [facility] Comment on above: Order Comment: Speci men Type: BLOOD SPECIMEN Ordering Facility: [facility] Address: [address] [place] [address] Performed By: #### 5 8410-2 #### [facility] CLIA [id number] [address] Creatinine and Glomerular filtration rate.predicted panel (S/P/Bld) 116 mL/min/1.73m??? Normal >=60 [facility] Comment on above: Order Comment: Speci men Type: BLOOD SPECIMEN Ordering Facility: [facility] Address: [address] [place] [address] Result Comment: Mar mated Glomerular Filtration Rate [...] accurately reflect actual GFR. Performed By: #### 5 8410-2 #### [facility] CLIA [id number] 1 [place] [address] [place] Glucose [Mass/Vol] 98 mg/dL Normal 74-99 [facility] Comment on above: Order Comment: Joie xiao Type: BLOOD SPECIMEN Ordering Facility: [facility] Address: [address] [place] [address] Result Comment: The [place] Diabetes Association (ADA) provides guidance for cutoff [...] Standards of Medical Care in Diabetes 2016, [place] [employer]. Diabetes Care. 2016.39(Suppl 1). Performed By: #### 5 8410-2 #### [facility] CLIA [id number] 1 [place] [address] [place] Potassium [Moles/Vol] 4.1 mmol/L Normal 3.7-5.1 [facility] Comment on above: Order Comment: Joie xiao Type: BLOOD SPECIMEN Ordering Facility: [facility] Address: [address] [place] [address] Performed By: #### 5 8410-2 #### [facility] CLIA [id number] 1 [place] [address] [place] Sodium [Moles/Vol] 140 mmol/L Normal 136-144 [facility] Comment on above: Order Comment: Speci men Type: BLOOD SPECIMEN Ordering Facility: [facility] Address: [address] [place] [address] Performed By: #### 5 8410-2 #### [facility] CLIA [id number] 1 [place] [address] [place] Urea nitrogen [Mass/Vol] 10 mg/dL Normal 9-24 [facility] Comment on above: Order Comment: Speci men Type: BLOOD SPECIMEN Ordering Facility: [facility] Address: [address] [place] [address] Performed By: #### 5 8410-2 #### [facility] CLIA [id number] [address] OF [facility] CBC panel Auto (Bld)on 11-26 Erythrocyte distribution width (RBC) [Ratio] 13.9 % Normal 11.5-15.0 [facility] Comment on above: Order Comment: Speci men Type: BLOOD SPECIMEN Ordering Facility: [facility] Address: [address] [place] [address] Performed By: #### C ORPNL #### [facility] CLIA [id number] [address] STATES OF [facility] Hematocrit (Bld) [Volume fraction] 42.2 % Normal 39.0-51.0 [facility] Comment on above: Order Comment: Speci men Type: BLOOD SPECIMEN Ordering Facility: [facility] Address: [address] [place] [address] Performed By: #### C ORPNL #### [facility] CLIA [id number] [address] OF [facility] Hemoglobin (Bld) [Mass/Vol] 14.3 g/dL Normal 13.0-17.0 [facility] Comment on above: Order Comment: Speci men Type: BLOOD SPECIMEN Ordering Facility: [facility] Address: [address] [place] [address] Performed By: #### C ORPNL #### [facility] CLIA [id number] [address] [place] MCH (RBC) [Entitic mass] 31.1 pg Normal 26.0-34.0 [facility] Comment on above: Order Comment: Speci men Type: BLOOD SPECIMEN Ordering Facility: [facility] Address: [address] [place] [address] Performed By: #### C ORPNL #### [facility] CLIA [id number] [address] MCHC (RBC) [Mass/Vol] 33.9 g/dL Normal 30.5-36.0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 Oriented to place, Oriented to time, Oriented to situation SUBJECTIVE agreeable to session COGNITION Responsiveness: Alert Follows Commands: 2-step Commands Clock Draw Test: 2-Normal (11/25/24) Word Recall: 3-recalled words (11/25/24) Mini Cog Score: 5 (11/25/24) THERAPY DIAGNOSIS No Skilled Need TREATMENT INTERVENTIONS Evaluation Skilled Treatment Time (minutes): 17 $ Evaluation - Low (08677) Billed Units: 1 unit TRAINING AND EDUCATION PROVIDED Role of Occupational Therapy THERAPEUTIC SKILLS USED Activity Dosing FUNCTIONAL STATUS Activities of Daily Living Assist Level Additional Information Feeding Set Up Grooming Stand By Assistance Bathing Upper Body Stand By Assistance Bathing Lower Body Stand By Assistance Dressing Upper Body Stand By Assistance Dressing Lower Body Stand By Assistance Toileting Stand By Assistance Mobility Assist Level Additional Information Bed Mobility Supine To Sit: Stand By Assistance Sit To Supine: Stand By Assistance Sit to Stand Stand By Assistance Stand to Sit Stand By Assistance Bed to Chair Toilet/Commode Stand By Assistance Shower Functional Mobility Stand By Assistance Functional Mobility Device: None STRENGTH Right Upper Extremity Strength Comments: 4/5 Left Upper Extremity Strength Comments: 4-/5 BALANCE Static Standing Balance: Good Dynamic Standing Balance: Good GOALS none PLAN OT Frequency: Discontinue Therapy Services Reasons Therapy Services Discontinued: No skilled needs SIGNATURE: IDA Garrison/Aiden PATIENT NAME: Faustino Unger DATE: November 25, 2024 TIME: 3:27 PM Normal [facility] THERAPY NT HNO ID: [id number] Author: YASEMIN MABRY, [facility]-STRIP MACHINE TENDER Service: Speech/Swallow Author Type: Speech Language Pathologist Type: Therapy (PT/OT/Speech/Resp) Filed: 11/25/2024 09:07 Note Text: Speech Therapy Clinical Swallow Evaluation SERVICE DATE: 11/25/2024 SERVICE TIME: 0842 to 0857 ROOM: [id number]-7621- IMPRESSION Functional oropharyngeal phases of swallowing: without identified risk for aspiration Speech Rehab Potential: Good RECOMMENDATIONS Diet Recommendations Regular Consistency Thin Liquids IDDSI Level 0 Swallow Strategy Recommendations Alert (patient should be fully alert for P.O. intake), Sit upright 90 degrees for all PO Nursing Recommendations Reinforce use of swallowing strategies Response to Therapy Interventions: Good participation in activities Rehabilitation Precautions: None DISCHARGE RECOMMENDATIONS Recommended Discharge Disposition: No further skilled speech therapy services anticipated CURRENT HOSPITAL COURSE Admitted following out patient EGD with left sided weakness, 5-7: CT Brain- No acute intracranial abnormality. Reason for Speech Therapy Consult: swallowing evaluation Relevant Past Medical History: Recent Melena, GERD HOME ENVIRONMENT / PRIOR FUNCTIONAL LEVEL Prior Functional Level: Within Functional Limits Patient Lives With: (friends) Assistance Available: multimedia technician Prior Swallowing Function/Diet Textures: Regular Consistency, Thin Liquids IDDSI Level 0 SUBJECTIVE Awake and agrees to testing THERAPY DIAGNOSIS No Skilled Need TREATMENT INTERVENTIONS Clinical Swallow Evaluation (04123) Skilled Treatment Time (minutes): 15 $ Clinical Swallow Evaluation (45847) Billed Units: 1 unit TRAINING AND EDUCATION PROVIDED IN Dysphagia Management THERAPEUTIC SKILLS USED Education on role of discipline / importance of activity OBJECTIVE Current Status Oral Hygiene: Clear, moist oral cavity, Oral Health Assessment Tool (OHAT) Dentition: Retains Natural Dentition Current Feeding Method: Oral Current Diet Textures: Regular Consistency, Thin Liquids IDDSI Level 0 Current Level Of Communication: Verbal Current Management Of Secretions: Able to self-manage Oral Motor Exam: Within Functional Limits ORAL HEALTH ASSESSMENT TOOL Lips: 0 Tongue: 0 Gums and Tissues: 0 Saliva: 0 Natural Teeth: 0 Dentures: N/A Oral Cleanliness: 0 Dental Pain: 0 OHAT Total Score: 0 SWALLOW ASSESSMENT Position Of Patient During Assessment: Upright In Bed Feeding Method: Patient Self-Fed Consistencies Presented: Thin Liquids IDDSI Level 0, Pureed Solids IDDSI Level 4, Solid Response to Swallow Interventions: no overt signs of aspiration Compensatory Strategies Utilized During Assessment: Alert (patient should be fully alert for P.O. intake), Sit upright 90 degrees for all PO, Self-monitoring, Voice checks Suspected Esophageal Deficits: GERD Patient on a regular diet Denies dysphagia Nurse reports no trouble talking or swallowing Patient swallowed thins, puree and solids without overt signs and symptoms of aspiration Timely chewing Laryngeal movement was detected upon palpation of the larynx Clear voice with all PO given No oral residue Recommend the above diet and strategies D/C at this time, speech evaluation not indicated-talking at conversational level GOALS - no skilled swallowing needs at this time Patient /Caregiver Goals: Go Home PLAN ST Frequency: Discontinue Therapy Services Reasons Inpatient Therapy Services Discontinued: No skilled needs Plan of Care Developed with: Patient, Nurse SIGNATURE: Yasemin Mabry CCC-STRIP MACHINE TENDER PATIENT NAME: Faustino Unger DATE: November 25, 2024 TIME: 9:04 AM Normal [facility] THERAPY NT HNO ID: [id number] Author: MOJGAN HALL, PT Service: Physical Therapy Author Type: Physical Therapist Type: Therapy (PT/OT/Speech/Resp) Filed: 11/25/2024 08:08 Note Text: PHYSICAL THERAPY MISSED VISIT SERVICE DATE: 11/25/2024 SERVICE TIME: 806 ROOM: [place] [address] Patient not seen due to Hold Monitor AND Reassess (TNK given 11/24/24 @1114, bedrest [id number]. Will see after bedrest expires.). SIGNATURE: Mojgan Hall PT PATIENT NAME: Faustino Unger DATE: November 25, 2024 TIME: 8:08 AM Normal [facility] Urinalysis complete panel (U )on 11-25-2024 Bilirubin Ql (U) Negative Normal Negative [facility] Comment on above: Order Comment: Speci men Type: BLOOD SPECIMEN Ordering Facility: [facility] Address: [address] [place] [address] Performed By: #### C ORPNL #### [facility] CLIA [id number] [address] [place] Clarity (Unsp spec) Clear Normal Clear [facility] Comment on above: Order Comment: Speci men Type: BLOOD SPECIMEN Ordering Facility: [facility] Address: [address] [place] [address] Performed By: #### C ORPNL #### [facility] CLIA [id number] [address] Color (U) Light Yellow Normal yellow [facility] Comment on above: Order Comment: Speci men Type: BLOOD SPECIMEN Ordering Facility: [facility] Address: [address] [place] [address] Performed By: #### C ORPNL #### [facility] CLIA [id number] [address] Glucose Test strip (U) [Mass/Vol] Negative Normal Trace, Negative [facility] Comment on above: Order Comment: Speci men Type: BLOOD SPECIMEN Ordering Facility: [facility] Address: [address] [place] [address] Performed By: #### C ORPNL #### [facility] CLIA [id number] [address] Hemoglobin Ql (U) Negative Normal Negative, Trace [facility] Comment on above: Order Comment: Speci men Type: BLOOD SPECIMEN Ordering Facility: [facility] Address: [address] [place] [address] Performed By: #### C ORPNL #### [facility] CLIA [id number] [address] [place] Ketones Ql (U) Negative Normal Negative, Trace [facility] Comment on above: Order Comment: Speci men Type: BLOOD SPECIMEN Ordering Facility: [facility] Address: [address] [place] [address] Performed By: #### C ORPNL #### [facility] CLIA [id number] [address] Leukocyte esterase Test strip Ql (U) Negative Normal Negative, 25 Julia/uL [facility] Comment on above: Order Comment: Speci men Type: BLOOD SPECIMEN Ordering Facility: [facility] Address: [address] [place] [address] Performed By: #### C ORPNL #### [facility] CLIA [id number] [address] [place] Nitrite Ql (U) Negative Normal Negative [facility] Comment on above: Order Comment: Speci men Type: BLOOD SPECIMEN Ordering Facility: [facility] Address: [address] [place] [address] Performed By: #### C ORPNL #### [facility] CLIA [id number] [address] pH (U) 6.5 [pH] Normal 5.0-8.0 [facility] Comment on above: Order Comment: Speci men Type: BLOOD SPECIMEN Ordering Facility: [facility] Address: [address] [place] [address] Performed By: #### C ORPNL #### [facility] CLIA [id number] [address] [place] Protein (U) [Mass/Vol] Negative Normal Trace , Negative [facility] Comment on above: Order Comment: Speci men Type: BLOOD SPECIMEN Ordering Facility: [facility] Address: [address] [place] [address] Performed By: #### C ORPNL #### [facility] CLIA [id number] [address] RBC LM.HPF (Urine sed) [#/Area] 0-3 /HPF Normal 0-3 /HPF [facility] Comment on above: Order Comment: Speci men Type: BLOOD SPECIMEN Ordering Facility: [facility] Address: [address] [place] [address] Performed By: #### C ORPNL #### [facility] CLIA [id number] [address] [place] Specific gravity (U) [Rel density] 1.021 Normal 1.005-1.030 [facility] Comment on above: Order Comment: Speci men Type: BLOOD SPECIMEN Ordering Facility: [facility] Address: [address] [place] [address] Performed By: #### C ORPNL #### [facility] CLIA [id number] [address] Urobilinogen Ql (U) Normal Normal Normal [facility] Comment on above: Order Comment: Speci men Type: BLOOD SPECIMEN Ordering Facility: [facility] Address: [address] [place] [id number] Performed By: #### C ORPNL #### [facility] CLIA [id number] [address] WBC LM.HPF (Urine sed) [#/Area] 0-5 /HPF Normal 0-5 /HPF [facility] Comment on above: Order Comment: Speci men Type: BLOOD SPECIMEN Ordering Facility: [facility] Address: [address] [place], [place] [id number] Performed By: #### C ORPNL #### [facility] CLIA [id number] [address] ALLIED HEALTHon 11-24-2024 ALLIED HEALTH HNO ID: [id number] Author: TALA PHELPS RT(R) Service: Radiology Author Type: Water Service Dispatcher Type: Allied Health Filed: 11/24/2024 11:38 Note Text: Radiology Service Progress Note PATIENT NAME: Faustino Unger DATE OF SERVICE: November 24, 2024 TIME: 11:38 AM PATIENT IDENTITY VERIFICATION COMPLETED USING TWO (2) IDENTIFIERS: Name and Date of confirmed by patient verbally. FALL SCREENING: Has the patient had 2 falls in the last year or 1 fall with injury or currently using an Ambulatory Assistive Device (Walker, Cane, Wheelchair, Crutches, etc.)? 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 LABOR RELATIONS: No RADIOLOGY DEPARTMENT: General X-ray: Exam(s) Completed: Chest X-Ray PERIPHERAL IV DATA: Not applicable SIGNED BY: RT Dick(R) November 24, 2024 11:38 AM [facility] HNO ID: [id number] Author: JADYN BARRERA, CT Service: Radiology Author Type: Technologist Type: Allied Health Filed: 11/24/2024 11:07 Note Text: Radiology Service Progress Note PATIENT NAME: Faustino Unger DATE OF SERVICE: November 24, 2024 TIME: 10:58 AM PATIENT IDENTITY VERIFICATION COMPLETED USING TWO [...] Patient: Screened in ED PATIENT GENDER DATA: Assigned male at PATIENT RELEVANT IMPLANT DATA REVIEWED: Not Applicable PATIENT PRESENTS WITH AN IMPLANTABLE OR ATTACHED MANAGER LABOR RELATIONS: No RADIOLOGY DEPARTMENT: CT; Exam(s) Completed: Brain , CTA Brain , and CTA Neck PERIPHERAL IV DATA: Inpatient: see LDA documentation SIGNED BY: KRISTIN Rome November 24, 2024 10:58 AM Normal [facility] ANES POSTPROC EVALon 025 ANES POSTPROC EVAL HNO ID: [id number] Author: TORY LAMBERT MD Service: Anesthesiology Author Type: Anesthesiologist Type: Anesthesia Postprocedure Evaluation Filed: 11/24/2024 11:47 Note Text: POST ANESTHESIA EVALUATION NOTE : 1990 Procedure Summary Date: 11/24/24 Room / Location: [facility] Endoscopy Anesthesia Start: 934 Anesthesia Stop: 1023 Procedures: EGD DIAGNOSTIC COLONOSCOPY SCREENING Diagnosis: Heart burn Epigastric abdominal pain History of colonic polyps (High risk colon cancer surveillance: Personal history of colonic polyps) (Epigastric abdominal pain) Scheduled Providers: Deborah Kendall MD; Missy Guerra APRN.GRIP; Tory Lambert MD Responsible Provider: Tory Lambert MD Anesthesia Type: MAC ASA Status: 1 Anesthesia Type: MAC Last Vitals Vitals Value Taken Time BP 107/57 11/24/24 1029 Temp 37.2 11/24/24 1029 Pulse 65 11/24/24 1029 Resp 16 11/24/24 1029 SpO2 100 11/24/24 1029 Post Anesthesia Patient Status Patient Evaluation: bedside. Anticipated Disposition: phase 2 then home. Neurological Status: aware and responsive. Pulmonary Status: breathing comfortably on room air Airway Control: returned to baseline unsupported. Cardiovascular Status: stable. Pain Management: clinically adequate Postoperative Hydration: acceptable. Intraoperative Events: no significant anesthesia events Post Operative Nausea/Vomiting Status: PONV - significant post operative nausea or vomiting with additional medications being ordered/administered. Recommendation: continue current plan of care. Other Remarks: This pt came out of GI suite to PACU Alert and oriented with stable BP,HR,RR,SpO2, and was cooperative with the caregivers. After several min's he c/o nausea and as he was nauseous he passed out and regained senses and the RN's noticed that he could not move his left side of the body and c/o blurry vision in left eye. He became Alert and well oriented and conversing. On asking pt stated he had passed out several times in the past and was being screened for seizure disorder in a outside hospital. A stroke alert team was called and pt was transfered to the ER/Radiology for Imaging of his Head and Neck. Pt's family-Father was updated of events.. Anesthesia Observations No Documentation SIGNATURE: Tory Lambert MD PATIENT NAME: Faustino Unger DATE: November 24, 2024 TIME: 10:29 AM CSN: [id number] Normal [facility] ANES PRE-OPon 11-24-2024 ANES PRE-OP HNO ID: [id number] Author: TORY LAMBERT MD Service: Anesthesiology Author Type: Anesthesiologist Type: Anesthesia Preprocedure Evaluation Filed: 11/24/2024 09:08 Note Text: ANESTHESIOLOGY DAY OF SURGERY NOTE : 1990 Procedure Information Date/Time: 11/24/24 1130 Scheduled providers: Deborah Kendall MD; Missy Guerar APRN.GRIP; Tory Lambert MD Procedures: EGD DIAGNOSTIC COLONOSCOPY SCREENING Location: [facility] Endoscopy Estimated body mass index is 25.24 kg/m? as calculated from the following: Height as of 08/17/24: 172.7 cm (5' 8). Weight as of 11/09/24: 75.3 kg (166 lb). Most recent hematocrit and potassium results: Hematocrit 42.3 08/17/2024 Potassium 3.7 08/17/2024 Relevant Problems -RENAL (+) Kidney stone (+) Renal cyst NEURO-PSYCH (+) History of colonic polyps I - PHYSICAL EVALUATION AIRWAY Patient intubated: No. Tracheostomy tube not present Mallampati: II. TM distance: >3 FB. Neck ROM: full ROM without neurological symptoms. Mouth opening: adequate. Short neck: no. Thick neck: no Braswell present: no Microretrognathia/Microna gthia/Recessed Chin: No DENTAL Dental findings: teeth intact. Additional exam findings: yes. CARDIOVASCULAR Rhythm: regular Rate: normal PULMONARY Breath sounds clear to auscultation. II - ANESTHESIA PLAN ASA Score: 1 Anesthetic Plan: MAC The patient is not a current smoker. NPO Status: adequate Beta Kimmie Administration of chronic beta kimmie medication not planned. Monitoring Plan Monitoring plan: standard ASA. Post Procedure Analgesic Plan Postoperative analgesic plan: other. Informed Consent Anesthetic risks, benefits, alternatives, personnel and consent discussed: yes. Patient / Responsible Libertarian agrees to proceed: yes Patient / Surrogate agrees to blood products: blood products not planned DNR status not reviewed with patient and/or family prior to surgery. Significant changes in the patient condition since the History and Physical, not otherwise documented in primary service progress note: no. Potential Anesthesia issues that may suggest increased risk of complications or contraindication to planned procedure: none. No vitals data found for the desired time range. Outpatient Medications as of 11/24/[address] (PROTONIX) 40 mg tablet Take 1 tablet by mouth once daily. FLUoxetine (PROZAC) 40 mg capsule Take 1 capsule by mouth once daily. busPIRone (BUSPAR) 10 mg tablet Take 10 mg by mouth two times a day. propranolol (INDERAL) 20 mg tablet Take 20 mg by mouth once daily. BIKTARVY 50-200-25 mg per tablet Take 1 tablet by mouth every afternoon. cholecalciferol (VITAMIN D3) 1,000 unit tab tablet Take 1,000 Units by mouth once daily. albuterol HFA (PROVENTIL HFA, VENTOLIN HFA) 90 mcg/actuation inhaler Inhale 2 Puffs as instructed every 6 hours as needed. valsartan (DIOVAN) 160 mg tablet Take 160 mg by mouth once daily. Melatonin 5 mg cap Take 1-2 capsules by mouth at bedtime as needed for insomnia. multivitamin tablet Take 1 tablet by mouth once daily. acetaminophen (TYLENOL) 325 mg tablet Take 1-2 tablets by mouth every 4 hours as needed for pain. Lactobac no.41/Bifidobact no.7 (PROBIOTIC-10 ORAL) Take 1 tablet by mouth once daily. Facility-Administered Medications as of 11/24/2024 Medication Dose Route Frequency lidocaine (PF) 10 mg/mL (1 %) 1-2 mg injection (XYLOCAINE) 0.1-0.2 mL INTRADERMAL PRN lactated ringers iv infusion 30 mL/hr INTRAVENOUS CONTINUOUS I have interviewed and examined the patient. I have reviewed the medical record and/or the pre-anesthesia evaluation, pertinent labs, and test results. This contains updated information obtained within 48 hours of Surgery/Procedure. SIGNATURE: Tory Lambert MD PATIENT NAME: Faustino Unger DATE: November 24, 2024 TIME: 9:07 AM CSN: [id number] Normal [facility] CBC W Auto Differential pane l (Bld)on 11-24-2024 Basophils (Bld) [#/Vol] 0.03 10*3/uL Normal <0.11 [facility] Comment on above: Order Comment: Speci men Type: BLOOD SPECIMENOrdering Facility: [facility] Address: [address] [place] [address] Performed By: #### 5 7021-8 ####[facility] LABORATORYCLIA [id number] [place] [address] [place] Basophils/100 WBC (Bld) 0.4 % Normal [facility] Comment on above: Order Comment: Speci men Type: BLOOD SPECIMENOrdering Facility: [facility] Address: [address] [place] [address] Performed By: #### 5 7021-8 ####VARNER LABORATORYCLIA [id number] [place] [address] [place] Differential cell count method Nom (Bld) Auto Normal [facility] Comment on above: Order Comment: Speci men Type: BLOOD SPECIMENOrdering Facility: [facility] Address: [address] [place] [address] Performed By: #### 5 7021-8 ####VARNER LABORATORYCLIA [id number] [place] [address] [place] Eosinophils (Bld) [#/Vol] 0.24 10*3/uL Normal <0.46 [facility] Comment on above: Order Comment: Speci men Type: BLOOD SPECIMENOrdering Facility: [facility] Address: [address] [place] [address] Performed By: #### 5 7021-8 ####V[facility] LABORATORYCLIA [id number] [address] [place] Eosinophils/100 WBC (Bld) 3.6 % Normal [facility] Comment on above: Order Comment: Speci men Type: BLOOD SPECIMENOrdering Facility: [facility] Address: [address] [place] [address] Performed By: #### 5 7021-8 ####VARN[facility] LABORATORYCLIA [id number] [address] [place] Erythrocyte distribution width (RBC) [Ratio] 13.9 % Normal 11.5-15.0 [facility] Comment on above: Order Comment: Speci men Type: BLOOD SPECIMENOrdering Facility: [facility] Address: [address] [place] [address] Performed By: #### 5 7021-8 ####VARN[facility] LABORATORYCLIA [id number] [address] [place] Hematocrit (Bld) [Volume fraction] 41.6 % Normal 39.0-51.0 [facility] Comment on above: Order Comment: Speci men Type: BLOOD SPECIMENOrdering Facility: [facility] Address: [address] [place] [address] Performed By: #### 5 7021-8 ####VARNER LABORATORYCLIA [id number] [address] [place] Hemoglobin (Bld) [Mass/Vol] 13.5 g/dL Normal 13.0-17.0 [facility] Comment on above: Order Comment: Speci men Type: BLOOD SPECIMENOrdering Facility: [facility] Address: [address] [place] [address] Performed By: #### 5 7021-8 ####VARNER LABORATORYCLIA [id number] [address] [place] Immature granulocytes (Bld) [#/Vol] 10*3/uL Normal <0.10 [facility] Comment on above: Order Comment: Speci men Type: BLOOD SPECIMENOrdering Facility: [facility] Address: [address] [place] [address] Performed By: #### 5 7021-8 ####VARNER LABORATORYCLIA [id number] [address] [place] Immature granulocytes/100 WBC (Bld) 0.3 % Normal [facility] Comment on above: Order Comment: Speci men Type: BLOOD SPECIMENOrdering Facility: [facility] Address: [address] [place] [address] Performed By: #### 5 7021-8 ####VARNER LABORATORYCLIA [id number] [place] [address] [place] Lymphocytes (Bld) [#/Vol] 2.37 10*3/uL Normal 1.00-4.00 [facility] Comment on above: Order Comment: Speci men Type: BLOOD SPECIMENOrdering Facility: [facility] Address: [address] [place] [address] Performed By: #### 5 7021-8 ####VARN[facility] LABORATORYCLIA [id number] [address] Lymphocytes/100 WBC (Bld) 35.3 % Normal [facility] Comment on above: Order Comment: Speci men Type: BLOOD SPECIMENOrdering Facility: [facility] Address: [address] [place] [address] Performed By: #### 5 7021-8 ####VARNER LABORATORYCLIA [id number] [address] [place] MCH (RBC) [Entitic mass] 30.3 pg Normal 26.0-34.0 [facility] Comment on above: Order Comment: Speci men Type: BLOOD SPECIMENOrdering Facility: [facility] Address: [address] [place] [address] Performed By: #### 5 7021-8 ####VARNER LABORATORYCLIA [id number] [address] [place] MCHC (RBC) [Mass/Vol] 32.5 g/dL Normal 30.5-36.0 [facility] Comment on above: Order Comment: Speci men Type: BLOOD SPECIMENOrdering Facility: [facility] Address: [address] [place] [address] Performed By: #### 5 7021-8 ####VARNER LABORATORYCLIA [id number] [place] [address] [place] MCV (RBC) [Entitic vol] 93.5 fL Normal 80.0-100.0 [facility] Comment on above: Order Comment: Speci men Type: BLOOD SPECIMENOrdering Facility: [facility] Address: [address] [place] [address] Performed By: #### 5 7021-8 ####VARN[facility] LABORATORYCLIA [id number] [place] [address] [place] Monocytes (Bld) [#/Vol] 0.83 10*3/uL Normal <0.87 [facility] Comment on above: Order Comment: Speci men Type: BLOOD SPECIMENOrdering Facility: [facility] Address: [address] [place] [address] Performed By: #### 5 7021-8 ####VARN[facility] LABORATORYCLIA [id number] [address] [place] Monocytes/100 WBC (Bld) 12.4 % Normal [facility] Comment on above: Order Comment: Speci men Type: BLOOD SPECIMENOrdering Facility: [facility] Address: [address] [place] [address] Performed By: #### 5 7021-8 ####VARN[facility] LABORATORYCLIA [id number] [place] [address] [place] Neutrophils (Bld) [#/Vol] 3.22 10*3/uL Normal 1.45-7.50 [facility] Comment on above: Order Comment: Speci men Type: BLOOD SPECIMENOrdering Facility: [facility] Address: [address] [place] [address] Performed By: #### 5 7021-8 ####VARN[facility] LABORATORYCLIA [id number] [address] [place] Neutrophils/100 WBC (Bld) 48.0 % Normal [facility] Comment on above: Order Comment: Speci men Type: BLOOD SPECIMENOrdering Facility: [facility] Address: [address] [place] [address] Performed By: #### 5 7021-8 ####VARNER LABORATORYCLIA [id number] [place] [address] [place] Nucleated RBC (Bld) [#/Vol] 10*3/uL Normal <0.01 [facility] Comment on above: Order Comment: Speci men Type: BLOOD SPECIMENOrdering Facility: [facility] Address: [address] [place] [address] Performed By: #### 5 7021-8 ####VARN[facility] LABORATORYCLIA [id number] [place] [address] [place] [facility] [place] Nucleated RBC/100 WBC (Bld) [Ratio] 0.0 /100 WBC Normal [facility] Comment on above: Order Comment: Speci men Type: BLOOD SPECIMENOrdering Facility: [facility] Address: [address] [place] [address] Performed By: #### 5 7021-8 ####VARN[facility] LABORATORYCLIA [id number] [place] [address] [place] Platelet mean volume (Bld) [Entitic vol] 8.6 fL Low 9.0-12.7 [facility] Comment on above: Order Comment: Speci men Type: BLOOD SPECIMENOrdering Facility: [facility] Address: [address] [place] [address] Performed By: #### 5 7021-8 ####VARNER LABORATORYCLIA [id number] [place] [address] [place] Platelets (Bld) [#/Vol] 245 10*3/uL Normal 150-400 [facility] Comment on above: Order Comment: Speci men Type: BLOOD SPECIMENOrdering Facility: [facility] Address: [address] [place] [address] Performed By: #### 5 7021-8 ####VARN[facility] LABORATORYCLIA [id number] [place] [address] [place] RBC (Bld) [#/Vol] 4.45 10*6/uL Normal 4.20-6.00 [facility] Comment on above: Order Comment: Joie xiao Type: BLOOD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 Problem Relation Age of Onset Aneurysm Mother Seizures Mother Kidney Disease Mother Bipolar disorder Mother Depression Mother Osteoporosis Mother Hypertension Father Breast Cancer Maternal Grandmother Prostate Cancer Maternal Grandfather Social History Tobacco Use Smoking status: Every Day Current packs/day: 0.25 Average packs/day: 0.3 packs/day for 20.7 years (5.2 ttl pk-yrs) Types: Cigarettes Start date: 03/15/2004 Passive exposure: Current Smokeless tobacco: Never Vaping Use Vaping status: Some Days Substances: Nicotine, Flavoring Substance and Sexual Activity Alcohol use: Yes Comment: rarely Drug use: Never Sexual activity: Not on file ALLERGIES Allergen Reactions Antihistimine Mental Status Change Metoclopramide Mental Status Change Mobic [Meloxicam] Anaphylaxis Prochlorperazine Mental Status Change Shellfish Derived Diarrhea Review of Systems Constitutional: Negative for chills and fever. HENT: Negative for ear pain, rhinorrhea and sore throat. Eyes: Positive for visual disturbance. Respiratory: Negative for cough and shortness of breath. Cardiovascular: Negative for chest pain and leg swelling. Gastrointestinal: Negative for abdominal pain, diarrhea, nausea and vomiting. Genitourinary: Negative for dysuria, flank pain, frequency and hematuria. Musculoskeletal: Negative for back pain. Skin: Negative for rash. Neurological: Positive for facial asymmetry, weakness and numbness. Negative for speech difficulty, light-headedness and headaches. Psychiatric/Behavioral: Negative for hallucinations and suicidal ideas. Physical Exam Vitals BP Pulse Temp Temp src Resp SpO2 Weight Height -- -- -- -- -- -- -- -- Physical Exam Vitals and nursing note reviewed. Constitutional: General: He is not in acute distress. Appearance: He is well-developed. HENT: Head: Normocephalic and atraumatic. Eyes: Pupils: Pupils are equal, round, and reactive to light. Neck: Trachea: No tracheal deviation. Cardiovascular: Rate and Rhythm: Normal rate. Heart sounds: No murmur heard. No friction rub. No gallop. Pulmonary: Effort: Pulmonary effort is normal. No respiratory distress. Breath sounds: Normal breath sounds. No wheezing or rales. Abdominal: General: Bowel sounds are normal. There is no distension. Palpations: Abdomen is soft. Tenderness: There is no abdominal tenderness. There is no guarding or rebound. Musculoskeletal: General: Normal range of motion. Cervical back: Normal range of motion and neck supple. Lymphadenopathy: Cervical: No cervical adenopathy. Skin: General: Skin is warm and dry. Findings: No erythema. Neurological: Mental Status: He is alert and oriented to person, place, and time. Motor: No abnormal muscle tone. Comments: L mild facial droop, L arm/leg minimal movement, no gravity resistance. Sees my fingers in all visual byrd, knows his age/the month, no aphasia/dysarthria. Psychiatric: Behavior: Behavior normal. Thought Content: Thought content normal. Judgment: Judgment normal. ED STROKE DOCUMENTATION (Last 48 Hours) Stroke Care Path Flowsheet Row Name 11/24/24 1115 Last Known Well Date Patient Last Known Well 11/24/24 - T (more content not included)... Normal [facility] EGD Study observation Rheaat shefali 11-24-2024 [facility] Gastrointestinal Endoscopy Patient Name: Faustino Unger Procedure Date: 11/24/2024 9:54 AM Date of : 1990 Admit Type: Outpatient Age: 34 Room: [facility] Gender: Male Note Status: Finalized Attending MD: Deborah Kendall MD, [id number] Procedure: Colonoscopy - screening Indications: High risk colon cancer surveillance: Personal history of colonic polyps, Incidental - Generalized abdominal pain Providers: Deborah Kendall MD Patient Profile: Refer to note in patient chart for documentation of history and physical. Last Colonoscopy: 2023. Referring Physician: Ctahi Parks (Referring MD) Medicines: See the Anesthesia note for documentation of the administered medications Complications: No immediate complications. Requesting Provider: Procedure: Pre-Anesthesia Assessment: - Monitored anesthesia care under the supervision of a GRIP was determined to be medically necessary for this procedure based on review of the patient's medical history, medications, and prior anesthesia history. After I obtained informed consent, the scope was passed under direct vision. Throughout the procedure, the patient's blood pressure, pulse, and oxygen saturations were monitored continuously. The Colonoscope was introduced through the anus and advanced to the cecum, identified by the appendiceal orifice, IC valve and transillumination. The colonoscopy was performed without difficulty. The patient tolerated the procedure well. The quality of the bowel preparation was adequate to identify polyps greater than 5 mm in size. The appendiceal orifice and the rectum were photographed. Scope Withdrawal Time: 0 hours 10 minutes 3 seconds Moderate Sedation: MAC anesthesia was administered by the anesthesia team. Total Procedure Duration: 0 hours 12 minutes 37 seconds Findings: The perianal and digital rectal examinations were normal. Non-bleeding internal hemorrhoids were found. Impression: - Non-bleeding internal hemorrhoids. - No specimens collected. Recommendation: - Repeat colonoscopy in 5 years for surveillance for history of colon polyps and suboptimal colon cleanse. - Return to referring provider PRN. - Patient has a contact number available for emergencies. The signs and symptoms of potential delayed complications were discussed with the patient. Return to normal activities tomorrow. Written discharge instructions were provided to the patient. - Continue present medications. - Resume previous diet. Procedure Code(s): --- Professional --- 76374, Colonoscopy, flexible; diagnostic, including collection of specimen(s) by brushing or washing, when performed (separate procedure) Diagnosis Code(s): --- Professional --- Z12.11, Encounter for screening for malignant neoplasm of colon Z86.0100, Personal history of colon polyps, unspecified K64.8, Other hemorrhoids CPT copyright 2020 [employer]. All rights reserved. The codes documented in this report are preliminary and upon clinical project coordinator review may be revised to meet current compliance requirements. Attending Participation: I personally performed the entire procedure. Scope In: 10:00:41 AM Scope Out: 10:13:18 AM MD Deborah Walsh MD 11/24/2024 10:16:43 AM This report has been signed electronically by Deborah Kendall MD Number of Addenda: 0 Note Initiated On: 11/24/2024 9:54 AM Estimated Blood Loss: Estimated blood loss: none. PROVATION [facility] Radiology Study observation (narrative) [facility] GLUCOSE, BLOOD (POC)on 11-24 Glucose [Mass/Vol] 77 mg/dL 74 - 99 mg/dL [facility] Comment on above: Location:[address], [facility] The Accu-Chek Inform II glucose meter has not been approved for testing on patients receiving intensive medical intervention or therapy and results from this point of care glucose test should not be used for patient management decisions in these cases. Inaccurate results may also occur from other interfering factors, such as N-acetylcysteine (blood concentrations of greater than 5mg/dL), galactose, extremes of hematocrit (<10 or >65), or high doses of ascorbic acid (vitamin C) greater than 3mg/dL. Consider alternate testing mechanisms (e.g. core lab, blood gas instrument) in the above situations. [facility] HIGH SENSITIVITY TROPONIN To n 11-24-2024 Troponin T.cardiac High sensitivity method [Mass/Vol] <6 Normal <12 [facility] Comment on above: Order Comment: Speci men Type: BLOOD SPECIMENOrdering Facility: [facility] Address: [address] [place] [address] Performed By: #### [facility], 83998-8 ####OSAGE LABORATORYCLIA [id number] [place] [address] [place] HISTORY PHYSICALon HISTORY PHYSICAL HNO ID: [id number] Author: DEBORAH KENDALL MD Service: General Surgery Author Type: Physician Type: H&P Filed: 11/24/2024 09:04 Note Text: HISTORY AND PHYSICAL Faustino Unger : 1990 REFERRING PHYSICIAN: No referring provider defined for this encounter. CHIEF COMPLAINT: Patient presents with: F/U 3 Month: Consult for EGD HPI: Faustino is a 34 year old male referred for endoscopy. Faustino notes due for colonoscopy d/t piecemeal polypectomy 6 mos ago AND to check on GERD symptoms. Faustino denies abdominal pain.. Faustino denies diarrhea. Faustino denies constipation. Faustino denies a change in bowel habits. Faustino notes melena. -for a couple weeks Faustino denies bright red blood per rectum. Faustino denies hemorrhoids. Faustino notes family history of colon issues. Multiple family members on his mother's side but he is unable to recall specific ones or identify cousins vs aunts/uncles. Faustino notes heartburn. -notes prilosec isn't helping Faustino has been having some epigastric abdominal pain -at last OV I prescribed carafate but the pharmacist informed Faustino that it will interfere with his Biktarvy so he is not taking it Faustino denies dysphagia. Faustino has a history of HIV, currently on Biktarvy AND refers viral load is undetectable. Follows with Dr. Downs. Faustino also refers he has HF. He follows with [facility]. He refers he has had consults by [facility] AND [facility] with conflicting information regarding the functioning of his heart. We also requested these reports. Last OV AND ECHO reviewed from 02/2024- no dx of heart failure, EF with 65% and mild mitral regurg. Pt is instructed to f/u periodically. Faustino has undergone prior endoscopy. Last EGD AND colonoscopy was 07/02/[address] Dangelo at [facility]. Sedation: [facility] EGD Impression: - Normal esophagus. Biopsied. - Mucosal changes suspicious for gastritis, characterized by erosions, erythema, friability, granularity and linear erosions. Biopsied. - Duodenitis, characterized by erythema. Biopsied. - Submucosal nodule found in the duodenum. COLONOSCOPY Impression: - Scattered mild inflammation was found in the entire examined colon secondary to colitis. Biopsied. - The examined portion of the ileum was normal. Biopsied. - One 4 mm polyp in the transverse colon, removed with a cold biopsy forceps. Resected and retrieved. - Two 2 to 5 mm polyps in the descending colon, removed with a cold biopsy forceps. Resected and retrieved. - Three 1 to 7 mm polyps in the sigmoid colon, removed piecemeal using a cold biopsy forceps. Resected and retrieved. - The examination was otherwise normal on direct and retroflexion views. Pathology demonstrated: FINAL DIAGNOSIS A. Duodenum, biopsy: - Small bowel mucosa with no diagnostic abnormality. B. Stomach, biopsy: - Gastric antral-type mucosa with mild reactive gastropathy. C. Esophagogastric junction, biopsy: - Gastric cardia-type mucosa with chronic inflammation, negative for intestinal metaplasia or dysplasia. - Squamous mucosa with mild reactive epithelial changes suggestive of gastroesophageal reflux. D. Random colon, biopsy: - Colonic mucosa with no diagnostic abnormality. E. Terminal ileum, biopsy: - Small bowel mucosa with no diagnostic abnormality. F. Transverse colon polyp, biopsy: - Hyperplastic polyp. G. Descending colon polyps, biopsies: - Hyperplastic polyps. - Separate fragments of colonic mucosa with intramucosal lymphoid aggregates. H. Sigmoid colon polyps, biopsies: - Hyperplastic polyps. JEL 07/06/2024 Diagnosis Comment B. No Helicobacter pylori organisms are identified. CURRENT MEDICATIONS Current Outpatient Medications Medication Sig FLUoxetine (PROZAC) 40 mg capsule Take 1 capsule by mouth once daily. busPIRone (BUSPAR) 10 mg tablet Take 10 mg by mouth two times a day. propranolol (INDERAL) 20 mg tablet Take 20 [...] every 4 hours as needed for pain. BIKTARVY 50-200-25 mg per tablet Take 1 tablet by mouth every afternoon. Lactobac no.41/Bifidobact no.7 (PROBIOTIC-10 ORAL) Take 1 tablet by mouth once daily. cholecalciferol (VITAMIN D3) 1,000 unit tab tablet Take 1,000 Units by mouth once daily. albuterol HFA (PROVENTIL HFA, VENTOLIN HFA) 90 mcg/actuation inhaler Inhale 2 Puffs as instructed every 6 hours as needed. peg 3350-Electrolytes (GOLYTELY) 236-22.74-6.74 -5.86 gram suspension Take 4,000 mL by mouth one time only for 1 dose. Refer to printed prep instructions from your provider. pantoprazole DR (PROTONIX) 40 mg tablet Take 1 tablet by mouth once daily. No current facili (more content not included)... Normal [facility] HbA1c (Bld)on 11-24-2024 Average glucose Estimated from glycated hemoglobin (Bld) [Mass/Vol] 97 mg/dL Normal [facility] Comment on above: Order Comment: Joie xiao Type: BLOOD SPECIMEN Ordering Facility: [facility] Address: [address] [place] [address] Result Comment: eAG: (Estimated average glucose) is a calculated value from HgbA1c and is insurance follow up representative of the average blood glucose level in the last 2-3 month period. Performed By: #### C ORPNL #### [facility] CLIA [id number] [address] OF [facility] HbA1c (Bld) [Mass fraction] 5.0 % Normal 4.3-5.6 [facility] Comment on above: Order Comment: Joie [facility] Type: BLOOD SPECIMEN Ordering Facility: [facility] Address: [address] [place] [address] Result Comment: Amer [place] Diabetes Association guidelines indicate that patients with HgbA1c in the range 5.7-6.4% are at increased risk for development of diabetes, and intervention by lifestyle modification may be beneficial. HgbA1c greater or equal to 6.5% is considered diagnostic of diabetes. Performed By: #### C ORPNL #### [facility] CLIA [id number] [address] OF [facility] LIPID PANEL, NONFASTINGon Cholesterol [Mass/Vol] 165 mg/dL Normal <[address] [facility] Comment on above: Order Comment: Joie xiao Type: BLOOD SPECIMEN Ordering Facility: [facility] Address: [address] [place] [address] Result Comment: <200 mg/dL, Desirable 200-239 mg/dL, Borderline high >239 mg/dL, High Performed By: #### C ORPNL #### [facility] CLIA [id number] [address] HDL CHOLESTEROL, NF 44 mg/dL Normal >39 [facility] Comment on above: Order Comment: Bonimarco xiao Type: BLOOD SPECIMEN Ordering Facility: [facility] Address: [address] [place] [address] Result Comment: 40-5 9 mg/dL, Acceptable >59 mg/dL, High: Negative risk factor for coronary heart disease <40 mg/dL, Low: Positive risk factor for coronary heart disease Performed By: #### C ORPNL #### [facility] CLIA [id number] [address] LDL CHOLESTEROL CALCULATED, NF 100 mg/dL High <100 [facility] Comment on above: Order Comment: [facility] Type: BLOOD SPECIMEN Ordering Facility: [facility] Address: [address] [place] [address] Result Comment: <100 mg/dL, Optimal 100-129 mg/dL, Near optimal/above optimal 130-159 mg/dL, Borderline high 160-189 mg/dL, High >189 mg/dL, Very high Secondary prevention optimal LDL Cholesterol levels are recommended to be <70 mg/dL LDL cholesterol is calculated using the Ortega-NIH equation. Performed By: #### C ORPNL #### [facility] CLIA [id number] [address] LDL/HDL RATIO, NF 2.27 mg/dL Normal <2.54 [facility] Comment on above: Order Comment: [facility] Type: BLOOD SPECIMEN Ordering Facility: [facility] Address: [address] [place] [address] Result Comment: Refe rence: 1. National Cholesterol Education Program ATP III Guideline At-A-Glance Quick Desk Reference: National Heart, Lung, and Blood [place]. National Institutes of Health. 2001: NIH Publication No. 01-3305. 2. An International Atherosclerosis Society position paper: global recommendations for the management of dyslipidemia: executive summary, Atherosclerosis. 2014: 232(2):410-413. Performed By: #### C ORPNL #### [facility] CLIA [id number] [address] NON HDL CHOL, NF 121 mg/dL Normal <130 [facility] Comment on above: Order Comment: Speci men Type: BLOOD SPECIMEN Ordering Facility: [facility] Address: [address] [place] [address] Result Comment: <130 mg/dL, Optimal 130-159 mg/dL, Near optimal/above optimal 160-189 mg/dL, Borderline high 190-219 mg/dL, High >219 mg/dL, Very high Secondary prevention optimal non HDL Cholesterol levels are recommended to be <100 mg/dL Performed By: #### C ORPNL #### [facility] CLIA [id number] [address] T CHOL/HDL RATIO NF 3.75 mg/dL Normal <5.10 [facility] Comment on above: Order Comment: Speci men Type: BLOOD SPECIMEN Ordering Facility: [facility] Address: [address] [place] [address] Performed By: #### C ORPNL #### [facility] CLIA [id number] [address] TRIGLYCERIDES, NF 118 mg/dL Normal <150 [facility] Comment on above: Order Comment: Speci men Type: BLOOD SPECIMEN Ordering Facility: [facility] Address: [address] [place] [address] Result Comment: <150 mg/dL, Normal 150-199 mg/dL, Borderline high 200-499 mg/dL, High >499 mg/dL, Very high Performed By: #### C ORPNL #### [facility] CLIA [id number] [address] VLDL CHOLESTEROL, NF 19 mg/dL Normal <30 [facility] Comment on above: Order Comment: Speci men Type: BLOOD SPECIMEN Ordering Facility: [facility] Address: [address] [place] [address] Performed By: #### C ORPNL #### [facility] CLIA [id number] [address] NURSING PROGon 11-24-2024 NURSING PROG HNO ID: [id number] Author: MANJU TRAN RN Service: Nursing Author Type: Registered Nurse Type: Nursing Progress Note Filed: 11/24/2024 11:52 Note Text: Event(s) / Intervention Note: PATIENT NAME: Faustino Unger Patient Location: ASC[facility] Room: 14 The patient was observed having the following problems: Patient stated he was nauseous after waking up from anesthesia. Dr. Lambert aware and Zofran order placed. This nurse was returning to the bedside to give zofran when patient was noted to have loss of consciousness at 1035. Patient was then aroused by nurses at bedside and patient had stated I don't feel good while grabbing the right side of his head before having another loss of consciousness at 1041. Patient noted to have weakness in left arm when waking back up. Stroke alert called from ASCU and sent to CT Scan. The time of the event occurred at: 1035. The following intervention(s) were initiated: Dr. Lambert at patient bedside,2mg Zofran given, Stroke alert called and patient taken to CT Scan. [facility] NURSING PROG HNO ID: [id number] Author: ANETTE CHENG RN Service: Nursing Author Type: Registered Nurse Type: Nursing Progress Note Filed: 11/24/2024 11:16 Note Text: Nursing Progress Note Topic of Note: Daily Note PATIENT NAME: Faustino Unger Patient Location: Room/bed info not found Room: ED-04 (ED-04) Handoff repot to PACU Phase 2 RN by this abstract writer and GRIP. Patient beginning to arouse as we left procedure room. Upon handoff patient more awake, talking appropriately to GRIP, listening to handoff report. He assisted GRIP with reapplication of pulse ox onto left hand and verbally stated, Oh, I'm sorry regarding his positioning. No abnormalities noted at this time. This note was completed by: Anette Cheng [facility] PT panel Coag (PPP)on 2024 INR Coag (PPP) [Relative time] 1.0 {INR} Normal 0.9-1.3 [facility] Comment on above: Order Comment: Joie xiao Type: BLOOD SPECIMENOrdering Facility: [facility] Address: [address] [id number] Result Comment: Sameera min K Antagonist (VKA) Therapeutic Range: INR 2 to 3 (Target INR of 2.5) Note: For patients treated with VKA drugs, such as warfarin, the [place] [employer] 2012 Guideline recommends a therapeutic INR range of 2 to 3 (target INR of 2.5). This recommendation includes high-risk patients with antiphospholipid syndrome with previous arterial or venous thromboembolism, current-generation mechanical or bioprosthetic aortic heart valve replacement. Note: Patients with mechanical aortic valve replacement and additional risk factors for thromboembolic events (atrial fibrillation, previous thromboembolism, LV dysfunction, hypercoagulable conditions) or an older generation mechanical AVR (i.e., ball in-Cage) or any mechanical MVR should have a INR therapeutic range of 2.5 to 3.5 (target INR of 3). Warren GH, et al. Chest 2012, 141:7S-47S Starr RA, et al. [facility] 2017, 70: 252-289 Performed By: #### 1 4979-9, 69268-5 ####[facility] [id number] [place] [address] [place] PT Coag (PPP) [Time] 11.3 s Normal 9.7-13.0 [facility] Comment on above: Order Comment: Joie xiao Type: BLOOD SPECIMENOrdering Facility: [facility] Address: [address] [place], [place] [id number] Performed By: #### 1 4979-9, 29889-5 ####[facility]ATORYCLIA [id number] [place] [id number] [place] Pathology biopsy report Lit (Tiss)on 11-24-2024 AP DISCLAIMER Normal [facility] Comment on above: Order Comment: Joie xiao Type: TISSUE SPECIMENOrdering Facility: [facility] Address: [address] [id number] Result Comment: Anyi Blackmon Test (LDT) Disclaimer: Performance characteristics of immunohistochemical, immunofluorescent, and chromogenic in-situ hybridization tests have been determined by the performing laboratory within [facility]'s Humberto Neville Pathology and Laboratory Medicine Department ([facility], [facility], [facility], [facility], [facility], [facility], or [facility]) in a manner consistent with CLIA requirements. One or more of these tests may not have been cleared or approved by the FDA. [facility] is regulated under CLIA as qualified to perform high-complexity testing. These tests are used for clinical purposes. These should not be regarded as investigational or for research. Positive and negative controls stain appropriately. Performed By: #### 6 6121-5 ####[facility] LABORATORYCLIA [id number] [address] LABCLIA [id number] [address] [place] CASE REPORT Normal [facility] Comment on above: Order Comment: Speci men Type: TISSUE SPECIMENOrdering Facility: [facility] Address: [address] [place] [address] Result Comment: [facility] Pathology Report Case: [id number] Authorizing Provider: Deborah Kendall MD Collected: 11/24/2024 09:51 AM Ordering Location: [facility] Endoscopy Received: 11/24/2024 11:34 AM Pathologist: Reyna Lopez MD Specimens: A) - Stomach, Antrum, Biopsy B) - Esophagogastric Junction, Biopsy Performed By: #### 6 6121-5 ####[facility] LABORATORYIA [id number] [address] LABCLIA [id number] [address] FINAL DIAGNOSIS Normal [facility] Comment on above: Order Comment: Speci men Type: TISSUE SPECIMENOrdering Facility: [facility] Address: [address] [place] [address] Result Comment: Kyle Smith tomach, antrum, biopsy: - Gastric antral type mucosa with no pathologic diagnostic abnormality. B. Esophagogastric junction, biopsy: - Gastric mucosa with no pathologic diagnostic abnormality; negative for squamous mucosa, intestinal metaplasia or dysplasia. at 1318 EDT Performed By: #### 6 6121-5 ####[facility] LABORATORYCLIA [id number] [address] LABCLIA [id number] [address] FINAL PERFORMING LAB Normal [facility] Comment on above: Order Comment: Speci men Type: TISSUE SPECIMENOrdering Facility: [facility] Address: [address] [place] [address] Result Comment: Diag nostic interpretation performed at: [facility], [address] [place] [address] CLIA# [id number] [address] [place]: Reyna Lopez MD Performed By: #### 6 6121-5 ####[facility] LABORATORYCLIA [id number] [address] LABCLIA [id number] [address] GROSS DESCRIPTION Normal [facility] Comment on above: Order Comment: Speci men Type: TISSUE SPECIMENOrdering Facility: [facility] Address: [address] [place] [address] Result Comment: A. S tomach, Antrum, Biopsy Received in formalin is one piece of montalvo, soft tissue measuring 0.3 x 0.3 x 0.3 cm. Totally submitted in one cassette. B. Esophagogastric Junction, Biopsy Received in formalin is one piece of montalvo-pink, soft tissue measuring 0.3 x 0.3 x 0.2 cm. Totally submitted in one cassette. CL November 24, 2024 4:17 PM Gross examination performed at [facility], [address] [place] [address] Performed By: #### 6 6121-5 ####[facility] LABORATORYCLIA [id number] [address] LABCLIA [id number] [address] [place] [address] [place] STAPHYLOCOCCUS AUREUS AND MR SA SCREEN, PCR, NASALon 11-24-2024 S. aureus and MRSA panel JOSE+probe (Nose) Not detected Normal Not Detected [facility] Comment on above: Order Comment: Speci men Type: BLOOD SPECIMEN Ordering Facility: [facility] Address: [address] [place] [address] Performed By: #### C ORPNL #### [facility] CLIA [id number] 1 [place] [address] [place] Upper GI endoscopyon 025 Upper GI endoscopy [facility] Gastrointestinal Endoscopy Patient Name: Faustino Unger Procedure Date: 11/24/2024 9:01 AM Date of : 1990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 [Moles/Vol] 30.0 mmol/L 21.0-32.0 [facility] Chloride measurementOrdered By: Yang Del Rio on 08-25-2024 Chloride [Moles/Vol] 105 mmol/L 98-107 [facility] Comprehensive Metabolic Prof ilon 08-25-2024 Albumin [Mass/Vol] 3.5 g/dL Normal 3.2-5.0 [facility] Comment on above: Performed By: #### M 8200.2203, L509.8000, L500.2500, L100.0100, L500.3400, L3890.4000, L3890.0200 #### [facility] [address] [place], [address] Albumin/Globulin [Mass ratio] 1.0 {ratio} Normal 0.9-2.4 [facility] Comment on above: Performed By: #### M 8200.2203, L509.8000, L500.2500, L100.0100, L500.3400, L3890.4000, L3890.0200 #### [facility] [address] [place], [address] ALK P 103 U/L Normal 45-117 [facility] Comment on above: Performed By: #### M 8200.2203, L509.8000, L500.2500, L100.0100, L500.3400, L3890.4000, L3890.0200 #### [facility] [address] [place], [address] ALT [Catalytic activity/Vol] 24 U/L Normal 16-61 [facility] Comment on above: Performed By: #### M 8200.2203, L509.8000, L500.2500, L100.0100, L500.3400, L3890.4000, L3890.0200 #### [facility] [address] [place], [address] AST [Catalytic activity/Vol] 15 U/L Normal 15-37 [facility] Comment on above: Performed By: #### M 8200.2203, L509.8000, L500.2500, L100.0100, L500.3400, L3890.4000, L3890.0200 #### [facility] [address] [place], [address] Bilirubin [Mass/Vol] 0.40 mg/dL Normal 0.20-1.00 [facility] Comment on above: Result Comment: For patients on eltrombopag therapy, use of Dimension [place] TBIL is not recommended. Performed By: #### M 8200.2203, L509.8000, L500.2500, L100.0100, L500.3400, L3890.4000, L3890.0200 #### [facility] [address] [place], [address] BUN/CRE 11.6 RATIO Normal 10-20 [facility] Comment on above: Performed By: #### M 8200.2203, L509.8000, L500.2500, L100.0100, L500.3400, L3890.4000, L3890.0200 #### [facility] [address] [place], [address] CA,Total 9.3 mg/dL Normal 8.5-10.1 [facility] Comment on above: Performed By: #### M 8200.2203, L509.8000, L500.2500, L100.0100, L500.3400, L3890.4000, L3890.0200 #### [facility] [address] [place], [address] Chloride [Moles/Vol] 105 mmol/L Normal 98-107 [facility] Comment on above: Performed By: #### M 8200.2203, L509.8000, L500.2500, L100.0100, L500.3400, L3890.4000, L3890.0200 #### [facility] [address] [place], [address] CO2 [Moles/Vol] 30.0 mmol/L Normal 21.0-32.0 [facility] Comment on above: Performed By: #### 8200.2203, L509.8000, L500.2500, L100.0100, L500.3400, L3890.4000, L3890.0200 #### [facility] [address] [place], [address] Creatinine [Mass/Vol] 0.95 mg/dL Normal 0.70-1.30 [facility] Comment on above: Result Comment: The validity of the calculated GFR GFRAA in patients over 70 years has not been determined. Clinical correlation is essential. Performed By: #### M 8200.2203, L509.8000, L500.2500, L100.0100, L500.3400, L3890.4000, L3890.0200 #### [facility] [address] [place], [address] EST GFR - AA 116 mL/min Normal >60 [facility] Comment on above: Result Comment: Afri can Bhutanese GFR Calc Performed By: #### M 8200.2203, L509.8000, L500.2500, L100.0100, L500.3400, L3890.4000, L3890.0200 #### [facility] [address] [place], [address] GAP 5 Normal 5-15 [facility] Comment on above: Performed By: #### M 8200.2203, L509.8000, L500.2500, L100.0100, L500.3400, L3890.4000, L3890.0200 #### [facility] [address] [place], [address] GFR/1.73 sq M.predicted among non-blacks MDRD (S/P/Bld) [Vol rate/Area] 96 mL/min/{1.73_m2} Normal >60 [facility] Comment on above: Result Comment: Non- GFR Calc Performed By: #### M 8200.2203, L509.8000, L500.2500, L100.0100, L500.3400, L3890.4000, L3890.0200 #### [facility] [address] [place], [address] Globulin (S) [Mass/Vol] 3.6 g/dL Normal 2.2-4.2 [facility] Comment on above: Performed By: #### M 8200.2203, L509.8000, L500.2500, L100.0100, L500.3400, L3890.4000, L3890.0200 #### [facility] [address] [place], [address] Glucose [Mass/Vol] 82 mg/dL Normal 74-106 [facility] Comment on above: Performed By: #### M 8200.2203, L509.8000, L500.2500, L100.0100, L500.3400, L3890.4000, L3890.0200 #### [facility] [address] [place], [address] Potassium [Moles/Vol] 4.1 mmol/L Normal 3.5-5.1 [facility] Comment on above: Performed By: #### M 8200.2203, L509.8000, L500.2500, L100.0100, L500.3400, L3890.4000, L3890.0200 #### [facility] [address] [place], [address] Sodium [Moles/Vol] 140 mmol/L Normal 136-145 [facility] Comment on above: Performed By: #### M 8200.2203, L509.8000, L500.2500, L100.0100, L500.3400, L3890.4000, L3890.0200 #### [facility] [address] [place], [place], [id number] T PROT 7.1 g/dL Normal 6.4-8.2 [facility] Comment on above: Performed By: #### M 8200.2203, L509.8000, L500.2500, L100.0100, L500.3400, L3890.4000, L3890.0200 #### [facility] [address] [place], [place], [address] Urea nitrogen [Mass/Vol] 11 mg/dL Normal 7-18 [facility] Comment on above: Performed By: #### M 8200.2203, L509.8000, L500.2500, L100.0100, L500.3400, L3890.4000, L3890.0200 #### [facility] [address] [place], [address] Determination of erythrocyte mean corpuscular volume (MCV)Ordered By: Yang Del Rio on 08-25-2024 MCV (RBC) [Entitic vol] 99 fL High 79-97 [facility] Eosinophils/100 WBC Auto (Bl d)Ordered By: Yang Del Rio on 08-25-2024 Eosinophils/100 WBC (Bld) 4 % Not Estab. [facility] Erythrocyte distribution wid th (RBC) [Ratio]Ordered By: Yang Del Rio on 08-25-2024 Erythrocyte distribution width (RBC) [Entitic vol] 46.8 fL High 35.1-43.9 [facility] Erythrocyte distribution wid th ratioOrdered By: Yang Del Rio on 08-25-2024 Erythrocyte distribution width (RBC) [Ratio] 12.6 % 11.6-15.4 [facility] Erythrocyte distribution width (RBC) [Ratio] 13.1 % Normal 11.6-14.6 [facility] Comment on above: Performed By: #### L 501.9520, L501.5200, L500.4050, L100.0500 #### [facility] [address] [place], [place], [id number] Erythrocyte distribution wid th standard deviationOrdered By: Yang Del Rio on 08-25-2024 Erythrocyte distribution width (RBC) [Ratio] 46.8 fl High 35.1-43.9 [facility] Estimated glomerular filtrat ion rate (GFR) AmericanOrdered By: Yang Del Rio on 08-25-2024 Estimated GFR (MDRD) Amer 116 mL/min >60 [facility] Comment on above: GFR Calc Glomerular filtration rate ( GFR) estimationOrdered By: Yang Del Rio on 08-25-2024 Estimated GFR (MDRD) Non-Af Amer 96 mL/min >60 [facility] Comment on above: Non- GFR Calc GFR/1.73 sq M.predicted among non-blacks MDRD (S/P/Bld) [Vol rate/Area] 96 mL/min/{1.73_m2} >60 [facility] Comment on above: Non- GFR Calc Glucose measurementOrdered B y: Yang Del Rio on 08-25-2024 Glucose [Mass/Vol] 82 mg/dL 74-106 [facility] HIV 1 RNA JOSE+probe [Log #/V ol]Ordered By: Yang Del Rio on 08-25-2024 HIV-1 RNA (PCR) log10 Value TNP [facility] Comment on above: Test not performedRe sult Units: [id number] to calculate result since non-numeric resultobtained for component test.Performed at: [address], [place] [id number] Director: Weston Rodrigez MD, Phone: [phone] Immature cells/100 WBC (Bld) Ordered By: Yang Del Rio on 08-25-2024 Immature Blood Cells [facility] Comment on above: Test not performed Interpretation of morphologi c examination of blood (narrative result)Ordered By: Yang Del Rio on 08-25-2024 Morphology Lit (Bld) [Interp] [facility] Comment on above: Test not performed Laboratory - Chemistry and C hemistry - challengeOrdered By: Yang Del Rio on 08-25-2024 AST [Catalytic activity/Vol] 15 U/L 15-37 [facility] - Hematology and Cell countsOrdered By: Yang Del Rio on 08-25-2024 MCH (RBC) [Entitic mass] 31.8 pg 26.6-33.0 [facility] Lymphocytes Auto (Unsp spec) [#/Vol]Ordered By: Yang Del Rio on 08-25-2024 Lymphocytes (Bld) [#/Vol] 2.3 10*3/uL 0.7-3.1 [facility] Lymphocytes/100 WBC Auto (Bl d)Ordered By: Yang Del Rio on 08-25-2024 Lymphocytes/100 WBC (Bld) 19 % Not Estab. [facility] MCHC Auto (RBC) [Mass/Vol]Or dered By: Yang Del Rio on 08-25-2024 MCHC (RBC) [Mass/Vol] 32.3 g/dL 31.5-35.7 [facility] Magnesiumon 08-25-2024 Magnesium [Mass/Vol] 2.3 mg/dL Normal 1.6-2.6 [facility] Comment on above: Performed By: #### M 8200.2203, L509.8000, L500.2500, L100.0100, L500.3400, L3890.4000, L3890.0200 #### [facility] [address] [place] [address]. [place], [place], [id number] Magnesium measurementOrdered By: Yang Del Rio on 08-25-2024 Magnesium [Mass/Vol] 2.3 mg/dL 1.6-2.6 [facility] Mean platelet volume determi nationOrdered By: Yang Del Rio on 08-25-2024 Platelet mean volume (Bld) [Entitic vol] 8.8 fL Normal 6.2-12.0 [facility] Comment on above: Performed By: #### L 501.9520, L501.5200, L500.4050, L100.0500 #### [facility] [address] [place], [address] Monocyte detectionOrdered By : Yang Del Rio on 08-25-2024 Monocytes/100 WBC (Bld) 10 % Not Estab. [facility] Morphology Lit (Bld) [Interp ]Ordered By: Yang Del Rio on 08-25-2024 Hematology Comments [facility] Comment on above: Test not performed Neutrophil countOrdered By: Yang Del Rio on 08-25-2024 Neutrophils/100 WBC (Bld) 66 % Not Estab. [facility] Nucleated RBC/100 WBC Auto ( Bld) [Ratio]Ordered By: Yang Del Rio on 08-25-2024 Nucleated RBC/100 WBC (Bld) [Ratio] [facility] Comment on above: Test not performed Nucleated Red Blood Cells [facility] Comment on above: Test not performed Percent of cells positive fo r CD4 antigenOrdered By: Yang Del Rio on 08-25-2024 CD3+CD4+ (T4 helper) cells/100 cells (Unsp spec) 28.7 % Low 30.8-58.5 [facility] Plasma HIV 1 RNA viral load by probe and target amplification method (log number/voluOrdered By: Yang Del Rio on 08-25-2024 HIV 1 RNA JOSE+probe [Log #/Vol] [facility] Comment on above: Test not performedRe sult Units: [id number]/mLUnable to calculate result since non-numeric resultobtained for component test.Performed at: - [facility] [id number] Director: Weston Rodrigez MD, Phone: [phone] Potassium measurementOrdered By: Yang Del Rio on 08-25-2024 Potassium [Moles/Vol] 4.1 mmol/L 3.5-5.1 [facility] Quantitative HIV-1 RNA measu rement by PCROrdered By: Yang Del Rio on 08-25-2024 HIV-1 RNA Ultraquantitative (PCR) < 20 copies/mL . [facility] Comment on above: HIV-1 RNA not detect edThe reportable range for this assay is 20 to 10,000,000copies HIV-1 RNA/mL. RBC Auto (Bld) [#/Vol]Ordere d By: Yang Del Rio on 08-25-2024 RBC (Bld) [#/Vol] 4.06 10*6/uL Low 4.14-5.80 [facility] Serum anion gap measurementO rdered By: Yang Del Rio on 08-25-2024 Anion gap [Moles/Vol] 5 mmol/L 5-15 [facility] Serum globulin measurementOr dered By: Yang Del Rio on 08-25-2024 Globulin (S) [Mass/Vol] 3.6 g/dL 2.2-4.2 [facility] Serum or plasma alanine fletcher otransferase (ALT) measurementOrdered By: Yang Del Rio 08-25-2024 ALT [Catalytic activity/Vol] 24 U/L 16-61 [facility] Serum or plasma albumin jazlyn urement (mass/volume)Ordered By: Yang Del Rio 08-25-2024 Albumin [Mass/Vol] 3.5 g/dL 3.2-5.0 [facility] Serum or plasma alkaline sandy sphatase measurementOrdered By: Yang Del Rio 08-25-2024 ALP [Catalytic activity/Vol] 103 U/L 45-117 [facility] Serum or plasma calcium jazlyn urement (mass/volume)Ordered By: Yang Del Rio 08-25-2024 Calcium [Mass/Vol] 9.3 mg/dL 8.5-10.1 [facility] Serum or plasma creatinine m easurement (mass/volume)Ordered By: Yang Del Rio 08-25-2024 Creatinine [Mass/Vol] 0.95 mg/dL 0.70-1.30 [facility] Comment on above: The validity of the calculated GFR & GFRAA in patients over 70 years has not been determined. Clinical correlation is essential. Serum or plasma thyroid stim ulating hormone (TSH) measurement (units/volume)Ordered By: Yang Del Rio on 08-25-2024 TSH Qn 1.480 uIU/mL 0.358-3.740 [facility] Serum or plasma urea nitroge n measurement (mass/volume)Ordered By: Yang Del Rio on 08-25-2024 Urea nitrogen [Mass/Vol] 11 mg/dL 7-18 [facility] Sodium levelOrdered By: Najma Del Rio on 08-25-2024 Sodium [Moles/Vol] 140 mmol/L 136-145 [facility] TSH QnOrdered By: Yang hook on 08-25-2024 Thyroid Stimulating Hormone (TSH) 1.480 uIU/mL 0.358-3.740 [facility] Thyroid Stim Hormone (TSH)on 08-25-2024 TSH 1.480 uIU/mL Normal 0.358-3.740 [facility] Comment on above: Performed By: #### M 8200.2203, L509.8000, L500.2500, L100.0100, L500.3400, L3890.4000, L3890.0200 #### [facility] [address] [place], [place], [id number] Total proteinOrdered By: Ke Del Rio on 08-25-2024 Protein [Mass/Vol] 7.1 g/dL 6.4-8.2 [facility] WBC countOrdered By: Yang Del Rio on 08-25-2024 WBC (Bld) [#/Vol] 11.8 10*3/uL High 3.4-10.8 [facility] Whole blood hemoglobin measu rement (mass/volume)Ordered By: Yang Del Rio on 08-25-2024 Hemoglobin (Bld) [Mass/Vol] 12.9 g/dL Low 13.0-17.7 [facility] ALLIED HEALTHon 08-17-2024 ALLIED HEALTH HNO ID: [id number] Author: MYRNA GROVE RT(R) Service: Radiology Author Type: Technologist Type: Allied Health Filed: 08/17/2024 05:29 Note Text: Radiology Service Progress Note PATIENT NAME: Faustino Unger DATE OF SERVICE: August 17, 2024 TIME: 5:28 AM PATIENT IDENTITY VERIFICATION COMPLETED USING TWO (2) IDENTIFIERS: Name and Date of confirmed by patient verbally. FALL SCREENING: Has the patient had 2 falls in the last year or 1 fall with injury or currently using an Ambulatory Assistive Device (Walker, Cane, Wheelchair, Crutches, etc.)? 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 LABOR RELATIONS: No RADIOLOGY DEPARTMENT: General X-ray: Exam(s) Completed: Chest X-Ray PERIPHERAL IV DATA: Not applicable SIGNED BY: RT Barney(R) August 17, 2024 5:28 AM Normal [facility] Basic metabolic 2000 panelon 08-17-2024 Anion gap [Moles/Vol] 9 mmol/L Normal 8-15 [facility] Comment on above: Order Comment: Speci men Type: BLOOD SPECIMEN Ordering Facility: [facility] Address: [address] [place] [address] Performed By: #### 2 4321-2 #### [facility] CLIA [id number] [address] [place], [place] [address] [place] Calcium [Mass/Vol] 9.7 mg/dL Normal 8.5-10.2 [facility] Comment on above: Order Comment: Speci men Type: BLOOD SPECIMEN Ordering Facility: [facility] Address: [address] [place] [address] Performed By: #### 2 4321-2 #### [facility] CLIA [id number] [address] [place], [place] [address] [place] Chloride [Moles/Vol] 104 mmol/L Normal 98-107 [facility] Comment on above: Order Comment: Speci men Type: BLOOD SPECIMEN Ordering Facility: [facility] Address: [address] [place] [address] Performed By: #### 2 4321-2 #### [facility] CLIA [id number] [address] [place], [place] [address] [place] CO2 [Moles/Vol] 24 mmol/L Normal 22-30 [facility] Comment on above: Order Comment: Speci men Type: BLOOD SPECIMEN Ordering Facility: [facility] Address: [address] [place] [address] Performed By: #### 2 4321-2 #### [facility] CLIA [id number] [address] [place], [place] [address] [place] Creatinine [Mass/Vol] 0.80 mg/dL Normal 0.73-1.22 [facility] Comment on above: Order Comment: Speci men Type: BLOOD SPECIMEN Ordering Facility: [facility] Address: [address] [place] [address] Result Comment: Use of this assay is not recommended for patients undergoing treatment with phenindione, due to the potential for falsely depressed results. Performed By: #### 2 4321-2 #### [facility] CLIA [id number] [address] [place], [place] [address] [facility] Creatinine and Glomerular filtration rate.predicted panel (S/P/Bld) 118 mL/min/1.73m??? Normal >=60 [facility] Comment on above: Order Comment: Speci men Type: BLOOD SPECIMEN Ordering Facility: [facility] Address: [address] [place] [address] Result Comment: Mar mated Glomerular Filtration Rate [...] accurately reflect actual GFR. Performed By: #### 2 4321-2 #### [facility] CLIA [id number] [address] [place] [address] [place] Glucose [Mass/Vol] 100 mg/dL High 74-99 [facility] Comment on above: Order Comment: Joie xiao Type: BLOOD SPECIMEN Ordering Facility: [facility] Address: [address] [place] [address] Result Comment: The [place] Diabetes Association (ADA) provides guidance for cutoff [...] Standards of Medical Care in Diabetes 2016, [place] [employer]. Diabetes Care. 2016.39(Suppl 1). Performed By: #### 2 4321-2 #### [facility] CLIA [id number] [address] [address] [place] Potassium [Moles/Vol] 3.7 mmol/L Normal 3.7-5.1 [facility] Comment on above: Order Comment: Joie xiao Type: BLOOD SPECIMEN Ordering Facility: [facility] Address: [address] [place] [address] Performed By: #### 2 4321-2 #### [facility] CLIA [id number] [address] [address] [place] Sodium [Moles/Vol] 137 mmol/L Normal 136-144 [facility] Comment on above: Order Comment: Joie xiao Type: BLOOD SPECIMEN Ordering Facility: [facility] Address: [address] [place], [place] [address] Performed By: #### 2 4321-2 #### [facility] CLIA [id number] [address] [address] [place] Urea nitrogen [Mass/Vol] 15 mg/dL Normal 9-24 [facility] Comment on above: Order Comment: Speci men Type: BLOOD SPECIMEN Ordering Facility: [facility] Address: [address] [place] [address] Performed By: #### 2 4321-2 #### [facility] CLIA [id number] [address] [place] [address] [place] CBC W Auto Differential pane l (Bld)on 08-17-2024 Basophils (Bld) [#/Vol] 10*3/uL Normal <0.11 [facility] Comment on above: Order Comment: Speci men Type: BLOOD SPECIMEN Ordering Facility: [facility] Address: [address] [place] [address] Performed By: #### C ORPNL #### [facility] CLIA [id number] [address] [place] Basophils/100 WBC (Bld) 0.2 % Normal [facility] Comment on above: Order Comment: Speci men Type: BLOOD SPECIMEN Ordering Facility: [facility] Address: [address] [place] [address] Performed By: #### C ORPNL #### [facility] CLIA [id number] [address] Differential cell count method Nom (Bld) Auto Normal [facility] Comment on above: Order Comment: Speci men Type: BLOOD SPECIMEN Ordering Facility: [facility] Address: [address] [place] [address] Performed By: #### C ORPNL #### [facility] CLIA [id number] [address] [place] Eosinophils (Bld) [#/Vol] 0.06 10*3/uL Normal <0.46 [facility] Comment on above: Order Comment: Speci men Type: BLOOD SPECIMEN Ordering Facility: [facility] Address: [address] [place] [address] Performed By: #### C ORPNL #### [facility] CLIA [id number] [address] [place] [address] Eosinophils/100 WBC (Bld) 0.5 % Normal [facility] Comment on above: Order Comment: Speci men Type: BLOOD SPECIMEN Ordering Facility: [facility] Address: [facility] [place] [address] Performed By: #### C ORPNL #### [facility] CLIA [id number] [address] Erythrocyte distribution width (RBC) [Ratio] 13.4 % Normal 11.5-15.0 [facility] Comment on above: Order Comment: Speci men Type: BLOOD SPECIMEN Ordering Facility: [facility] Address: [address] [place] [address] Performed By: #### C ORPNL #### [facility] CLIA [id number] [address] Hematocrit (Bld) [Volume fraction] 42.3 % Normal 39.0-51.0 [facility] Comment on above: Order Comment: Speci men Type: BLOOD SPECIMEN Ordering Facility: [facility] Address: [address] [place] [address] Performed By: #### C ORPNL #### [facility] CLIA [id number] [address] Hemoglobin (Bld) [Mass/Vol] 14.1 g/dL Normal 13.0-17.0 [facility] Comment on above: Order Comment: Speci men Type: BLOOD SPECIMEN Ordering Facility: [facility] Address: [address] [place] [address] Performed By: #### C ORPNL #### [facility] CLIA [id number] [address] Immature granulocytes (Bld) [#/Vol] 10*3/uL Normal <0.10 [facility] Comment on above: Order Comment: Speci men Type: BLOOD SPECIMEN Ordering Facility: [facility] Address: [address] [place] [address] Performed By: #### C ORPNL #### [facility] CLIA [id number] [address] Immature granulocytes/100 WBC (Bld) 0.2 % Normal [facility] Comment on above: Order Comment: Speci men Type: BLOOD SPECIMEN Ordering Facility: [facility] Address: [address] [place] [address] Performed By: #### C ORPNL #### [facility] CLIA [id number] [address] [place] Lymphocytes (Bld) [#/Vol] 1.87 10*3/uL Normal 1.00-4.00 [facility] Comment on above: Order Comment: Speci men Type: BLOOD SPECIMEN Ordering Facility: [facility] Address: [address] [place] [address] Performed By: #### C ORPNL #### [facility] CLIA [id number] [address] Lymphocytes/100 WBC (Bld) 15.7 % Normal [facility] Comment on above: Order Comment: Speci men Type: BLOOD SPECIMEN Ordering Facility: [facility] Address: [address] [place] [address] Performed By: #### C ORPNL #### [facility] CLIA [id number] [address] STATES OF [facility] MCH (RBC) [Entitic mass] 32.0 pg Normal 26.0-34.0 [facility] Comment on above: Order Comment: Speci men Type: BLOOD SPECIMEN Ordering Facility: [facility] Address: [address] [place] [address] Performed By: #### C ORPNL #### [facility] CLIA [id number] [address] MCHC (RBC) [Mass/Vol] 33.3 g/dL Normal 30.5-36.0 [facility] Comment on above: Order Comment: Speci men Type: BLOOD SPECIMEN Ordering Facility: [facility] Address: [address] [place] [address] Performed By: #### C ORPNL #### [facility] CLIA [id number] [address] MCV (RBC) [Entitic vol] 95.9 fL Normal 80.0-100.0 [facility] Comment on above: Order Comment: Speci men Type: BLOOD SPECIMEN Ordering Facility: [facility] Address: [address] [place] [address] Performed By: #### C ORPNL #### [facility] CLIA [id number] [address] [place] Monocytes (Bld) [#/Vol] 1.66 10*3/uL High <0.87 [facility] Comment on above: Order Comment: Speci men Type: BLOOD SPECIMEN Ordering Facility: [facility] Address: [address] [place] [address] Performed By: #### C ORPNL #### [facility] CLIA [id number] [address] Monocytes/100 WBC (Bld) 13.9 % Normal [facility] Comment on above: Order Comment: Speci men Type: BLOOD SPECIMEN Ordering Facility: [facility] Address: [address] [place] [address] Performed By: #### C ORPNL #### [facility] CLIA [id number] [address] [place] Neutrophils (Bld) [#/Vol] 8.30 10*3/uL High 1.45-7.50 [facility] Comment on above: Order Comment: Speci men Type: BLOOD SPECIMEN Ordering Facility: [facility] Address: [address] [place] [address] Performed By: #### C ORPNL #### [facility] CLIA [id number] [address] Neutrophils/100 WBC (Bld) 69.5 % Normal [facility] Comment on above: Order Comment: Speci men Type: BLOOD SPECIMEN Ordering Facility: [facility] Address: [address] [place], [place] [id number] Performed By: #### C ORPNL #### [facility] CLIA [id number] [address] [place] Nucleated RBC (Bld) [#/Vol] Normal [facility] Comment on above: Order Comment: Speci men Type: BLOOD SPECIMEN Ordering Facility: [facility] Address: [address] [place] [address] Performed By: #### C ORPNL #### [facility] CLIA [id number] [address] [place] Nucleated RBC/100 WBC (Bld) [Ratio] Normal [facility] Comment on above: Order Comment: Speci men Type: BLOOD SPECIMEN Ordering Facility: [facility] Address: [address] [place] [address] Performed By: #### C ORPNL #### [facility] CLIA [id number] [address] [place] Platelet mean volume (Bld) [Entitic vol] 8.5 fL Low 9.0-12.7 [facility] Comment on above: Order Comment: Speci men Type: BLOOD SPECIMEN Ordering Facility: [facility] Address: [address] [place] [address] Performed By: #### C ORPNL #### [facility] CLIA [id number] [address] [place] Platelets (Bld) [#/Vol] 253 10*3/uL Normal 150-400 [facility] Comment on above: Order Comment: Speci men Type: BLOOD SPECIMEN Ordering Facility: [facility] Address: [address] [place] [address] Performed By: #### C ORPNL #### [facility] CLIA [id number] 1 [place] [address] [place] RBC (Bld) [#/Vol] 4.41 10*6/uL Normal 4.20-6.00 [facility] Comment on above: Order Comment: Speci men Type: BLOOD SPECIMEN Ordering Facility: [facility] Address: [address] [place] [address] Performed By: #### C ORPNL #### [facility] CLIA [id number] 1 [place] [id number] [facility] WBC (Bld) [#/Vol] 11.93 10*3/uL High 3.70-11.00 [facility] Comment on above: Order Comment: Speci men Type: BLOOD SPECIMEN Ordering Facility: [facility] Address: [address] [place] [id number] Performed By: #### C ORPNL #### [facility] CLIA [id number] 1 [place] [id number] [facility] ED PROV NOTEon 08-17-2024 ED PROV NOTE HNO ID: [id number] Author: JAVAN MENSAH MD Service: Emergency Medicine Author Type: Physician Type: ED Provider Notes Filed: 08/17/2024 06:05 Note Text: ED Provider Note Patient Name: Faustino Unger SERVICE DATE: 08/17/24 History Patient presents with: Shortness of Breath Cough: Pt states he has had a cough with thick yellow secretions, and cold x 1 week , and pt used his inhaler around midnight with little relief HPI patient stated he has respiratory symptoms with cough and yellow thick mucus production and nasal congestion for the last week worse over the last couple days. He used his albuterol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 L3890.4000, L3890.0200 #### [facility] [address] [place], [address] Monocytes/100 WBC (Bld) 4.7 % Normal 0-10 [facility] Comment on above: Performed By: #### M 8200.2203, L509.8000, L500.2500, L100.0100, L500.3400, L3890.4000, L3890.0200 #### [facility] [address] [place], [address] Neutrophils/100 WBC (Bld) 84.9 % High 47-70 [facility] Comment on above: Performed By: #### M 8200.2203, L509.8000, L500.2500, L100.0100, L500.3400, L3890.4000, L3890.0200 #### [facility] [address] [place], [address] Nucleated RBC (Bld) [#/Vol] 0 10*3/uL Normal 0-5 [facility] Comment on above: Performed By: #### M 8200.2203, L509.8000, L500.2500, L100.0100, L500.3400, L3890.4000, L3890.0200 #### [facility] [address] [place], [address] Platelet mean volume (Bld) [Entitic vol] 8.5 fL Normal 6.2-12.0 [facility] Comment on above: Performed By: #### M 8200.2203, L509.8000, L500.2500, L100.0100, L500.3400, L3890.4000, L3890.0200 #### [facility] [address] [place], [address] Platelets (Bld) [#/Vol] 261 10*3/uL Normal 150-450 [facility] Comment on above: Performed By: #### M 8200.2203, L509.8000, L500.2500, L100.0100, L500.3400, L3890.4000, L3890.0200 #### [facility] [address] [place], [address] RBC (Bld) [#/Vol] 4.33 10*6/uL Low 4.6-6.2 [facility] Comment on above: Performed By: #### M 8200.2203, L509.8000, L500.2500, L100.0100, L500.3400, L3890.4000, L3890.0200 #### [facility] [address] [place], [address] RDW SD 45.2 fl High 35.1-43.9 [facility] Comment on above: Performed By: #### M 8200.2203, L509.8000, L500.2500, L100.0100, L500.3400, L3890.4000, L3890.0200 #### [facility] [address] [place], [address] WBC (Bld) [#/Vol] 12.8 10*3/uL High 4.4-11.0 [facility] Comment on above: Performed By: #### M 8200.2203, L509.8000, L500.2500, L100.0100, L500.3400, L3890.4000, L3890.0200 #### [facility] [address] [place], [address] Chest PA and Lateralon 05-17 Chest PA and Lateral [facility] Imaging Services [address] [place] [address] Chest PA and Lateral MR#: [id number] Acct: [id number] Name: FAUSTINO UNGER Rep #: [id number] : 1990 M 33 From: Pete Mayer PCP: Dr. Humberto Downs MD Status: [facility] Study: Chest PA and Lateral Date of Exam: 05/17/24 Exam# [id number] Ordering Dr: Nancy Riley DO [id number] STUDY: X-RAY CHEST REASON FOR EXAM: Male, 33 years old. cough TECHNIQUE: Frontal and lateral views of the chest. COMPARISON: Chest x-ray March 23, 2024 FINDINGS: The lungs are clear and expanded. There is no demonstrated pleural abnormality. Normal size heart. Normal mediastinum and june. Normal visualized pulmonary arteries. Normal visualized aortic arch and descending thoracic aorta. Normal visualized thoracic spine. Normal visualized ribs, clavicles, and shoulders. There is no demonstrated abnormality of the visualized soft tissue structures of the upper abdomen. RAD/Chest PA and Lateral IMPRESSION: Normal x-ray examination of the chest. Electronically Signed: Pete Vega MD at 0:25 EDT , CC: Dr. Nancy Riley DO; Dr. Humberto Downs MD Kineseologist: Signed Normal [facility] Comprehensive Metabolic Prof ilkm 05-17-2024 Albumin [Mass/Vol] 3.6 g/dL Normal 3.2-5.0 [facility] Comment on above: Performed By: #### M 8200.2203, L509.8000, L500.2500, L100.0100, L500.3400, L3890.4000, L3890.0200 #### [facility] [address] [place], [address] Albumin/Globulin [Mass ratio] 1.1 {ratio} Normal 0.9-2.4 [facility] Comment on above: Performed By: #### M 8200.2203, L509.8000, L500.2500, L100.0100, L500.3400, L3890.4000, L3890.0200 #### [facility] [address] [place], [address] ALK P 80 U/L Normal 45-117 [facility] Comment on above: Performed By: #### M 8200.2203, L509.8000, L500.2500, L100.0100, L500.3400, L3890.4000, L3890.0200 #### [facility] [address] [place], [address] ALT [Catalytic activity/Vol] 29 U/L Normal 16-61 [facility] Comment on above: Performed By: #### M 8200.2203, L509.8000, L500.2500, L100.0100, L500.3400, L3890.4000, L3890.0200 #### [facility] [address] [place], [address] AST [Catalytic activity/Vol] 13 U/L Low 15-37 [facility] Comment on above: Performed By: #### M 8200.2203, L509.8000, L500.2500, L100.0100, L500.3400, L3890.4000, L3890.0200 #### [facility] [address] [place], [address] Bilirubin [Mass/Vol] 0.20 mg/dL Normal 0.20-1.00 [facility] Comment on above: Result Comment: For patients on eltrombopag therapy, use of Dimension [place] TBIL is not recommended. Performed By: #### M 8200.2203, L509.8000, L500.2500, L100.0100, L500.3400, L3890.4000, L3890.0200 #### [facility] [address] [place], [address] BUN/CRE 11.5 RATIO Normal 10-20 [facility] Comment on above: Performed By: #### M 8200.2203, L509.8000, L500.2500, L100.0100, L500.3400, L3890.4000, L3890.0200 #### [facility] [address] [place], [address] CA,Total 8.9 mg/dL Normal 8.5-10.1 [facility] Comment on above: Performed By: #### M 8200.2203, L509.8000, L500.2500, L100.0100, L500.3400, L3890.4000, L3890.0200 #### [facility] [address] [place], [address] Chloride [Moles/Vol] 108 mmol/L High 98-107 [facility] Comment on above: Performed By: #### M 8200.2203, L509.8000, L500.2500, L100.0100, L500.3400, L3890.4000, L3890.0200 #### [facility] [address] [place], [address] CO2 [Moles/Vol] 25.0 mmol/L Normal 21.0-32.0 [facility] Comment on above: Performed By: #### M 8200.2203, L509.8000, L500.2500, L100.0100, L500.3400, L3890.4000, L3890.0200 #### [facility] [address] [place], [address] Creatinine [Mass/Vol] 0.87 mg/dL Normal 0.70-1.30 [facility] Comment on above: Result Comment: The validity of the calculated GFR GFRAA in patients over 70 years has not been determined. Clinical correlation is essential. Performed By: #### M 8200.2203, L509.8000, L500.2500, L100.0100, L500.3400, L3890.4000, L3890.0200 #### [facility] [address] [place], [address] ECRCL 114.66 ml/min Normal [facility] Comment on above: Performed By: #### M 8200.2203, L509.8000, L500.2500, L100.0100, L500.3400, L3890.4000, L3890.0200 #### [facility] [address] [place], [address] EST GFR - AA 128 mL/min Normal >60 [facility] Comment on above: Result Comment: Afri can Bhutanese GFR Calc Performed By: #### M 8200.2203, L509.8000, L500.2500, L100.0100, L500.3400, L3890.4000, L3890.0200 #### [facility] [address] [place], [address] GAP 5 Normal 5-15 [facility] Comment on above: Performed By: #### M 8200.2203, L509.8000, L500.2500, L100.0100, L500.3400, L3890.4000, L3890.0200 #### [facility] [address] [place], [address] GFR/1.73 sq M.predicted among non-blacks MDRD (S/P/Bld) [Vol rate/Area] 106 mL/min/{1.73_m2} Normal >60 [facility] Comment on above: Result Comment: Non- GFR Calc Performed By: #### M 8200.2203, L509.8000, L500.2500, L100.0100, L500.3400, L3890.4000, L3890.0200 #### [facility] [address] [place], [address] Globulin (S) [Mass/Vol] 3.4 g/dL Normal 2.2-4.2 [facility] Comment on above: Performed By: #### M 8200.2203, L509.8000, L500.2500, L100.0100, L500.3400, L3890.4000, L3890.0200 #### [facility] [address] [place], [address] Glucose [Mass/Vol] 137 mg/dL High 74-106 [facility] Comment on above: Result Comment: Fast ing Glucose result greater than or equal to 126 mg/dL suggests DIABETES MELLITUS per A.D.A. criteria. Performed By: #### M 8200.2203, L509.8000, L500.2500, L100.0100, L500.3400, L3890.4000, L3890.0200 #### [facility] [address] [place], [address] Potassium [Moles/Vol] 4.1 mmol/L Normal 3.5-5.1 [facility] Comment on above: Performed By: #### M 8200.2203, L509.8000, L500.2500, L100.0100, L500.3400, L3890.4000, L3890.0200 #### [facility] [address] [place], [address] Sodium [Moles/Vol] 139 mmol/L Normal 136-145 [facility] Comment on above: Performed By: #### M 8200.2203, L509.8000, L500.2500, L100.0100, L500.3400, L3890.4000, L3890.0200 #### [facility] [address] [place], [address] T PROT 7.0 g/dL Normal 6.4-8.2 [facility] Comment on above: Performed By: #### M 8200.2203, L509.8000, L500.2500, L100.0100, L500.3400, L3890.4000, L3890.0200 #### [facility] [address] [place], [address] Urea nitrogen [Mass/Vol] 10 mg/dL Normal 7-18 [facility] Comment on above: Performed By: #### M 8200.2203, L509.8000, L500.2500, L100.0100, L500.3400, L3890.4000, L3890.0200 #### [facility] [address] [place], [address] Decalcification bone/plaqueo n 05-17-2024 Decalcification bone/plaque Patient Age/Sex Location Account Attending Physician FAUSTINO UNGER 33/M [facility] [id number] Dr. Pete Mcmahan MD Specimen: [id number] Received: 05/17/24150 Status: MAGDALENA Frias Num: [id number] Spec Type: NASAL SPEC Subm Dr: Dr. Pete Mcmahan MD HEADER OPERATION: Septoplasty, submucous resection of inferior turbinates PRE-OP DIAGNOSIS: Nasal congestion, hypertrophy of nasal turbinates, deviated nasal septum TISSUE SUBMITTED: Nasal septum MICROSCOPIC DIAGNOSIS Nasal septum, septoplasty: Fragments of bone and cartilage clinically deviated nasal septum. . 05/21/2024 MICROSCOPIC DESCRIPTION Slides are reviewed. GROSS DESCRIPTION Received is one container labeled with the patient's name and not further designated. The specimen consists of multiple fragments of cartilage and bone measuring in aggregate 5.0 x 3.0 x 0.3cm. The entire specimen is submitted in two cassettes after decalcification. . 05/18/2024 TC:5 CPT:92869, 68286 Patient Age/Sex Location Account Attending Physician FAUSTINO UNGER 33/M [facility] [id number] Dr. Pete Mcmahan MD Signed (signature on file) Dr. Angel Barragan MD 05/21/24 1252 Normal [facility] Comment on above: Performed By: #### M 8200.2203, L509.8000, L500.2500, L100.0100, L500.3400, L3890.4000, L3890.0200 #### [facility] Laboratory [facility] [address] [place], [place], [id number] Lipaseon 05-17-2024 Lipase [Catalytic activity/Vol] 25 U/L Normal 13-75 [facility] Comment on above: Result Comment: Shaye huber note: LIPASE revised reference range effective 22. New Lipase methodology. Expected to produce lower values than the previous assay method. NEW Reference Range: 13 - 75 U/L Performed By: #### M 8200.2203, L509.8000, L500.2500, L100.0100, L500.3400, L3890.4000, L3890.0200 #### [facility] [address] [place], [address] XR HIP 1 VIEW RIGHTon 2023 XR [...] Sign Date: 05/14/2024 7:33:56 AM Ordering Provider: DIEGO REFERRING [facility] 04-16-2024 MOR Telephone (SARMAD) ----- FAUSTINO UNGER ([id number]) 1990 M Date Time Provider Department 04/16/24 MEAGHAN BLOOM During your visit today, we recorded the following information about you: Meaghan Bloom, 04/16/2024 6:39 PM Signed Can let him know the laboratory testing I ordered did not reveal any evidence of a bone marrow disorder. Bone density was low for his age. Plain film x-ray showed no evidence of sclerotic lesions. Recommend referral to endocrinology due to low bone density. DO Donnell Snider Kara, LPN 04/19/2024 9:21 AM Signed Left VM, will send [employer] message. Advised pt to call office or respond in [employer] if he had any questions. Will need [...] - Diarrhea Date Reviewed: 03/29/2024 Reviewed by: Joe Lopez RT(R) - Fully Assessed Reason for Visit: Results [95] Primary Visit Diagnosis:Osteopenia of lumbar spine [M85.88] Order(s):CONSULT TO ENDOCRINOLOGY [9007] Order #: [id number]: 1 FUTURE Prescriptions as of 04/20/2024 - [...] Encounter Status:Closed by ELAINE BARRETO on 04/20/24 [facility] Office Visit Reporton 2023 Office Visit Report [facility] [address] [place] [address] OFFICE VISIT Date of Service: 04/14/24 MR#: [id number] Acct: [id number] Patient: FAUSTINO UNGER Rep #: [id number] : 1990 Provider: Dr. Rebekah Palomares MD Age/Sex: 33/M Location: [facility] [place] Status: Signed Intake Vital Signs 03/23/24 13:11 04/14/24 14:13 Height 5 ft 8 in BP 119/81 H Blood Pressure Location Lt brachial Position Sitting Respiration 16 Pulse 64 Pulse Source NIBP Intake Visit Reasons: 2 WK BP Check Vp Communications Required: No Is patient in pain?: No Allergies meloxicam (From Mobic) Allergy (Severe, Verified 03/31/24 14:01) Anaphylaxis metoclopramide (From Reglan) Allergy (Verified 03/31/24 14:01) Other Antihistamines - Alkylamine Adverse Reaction (Verified 03/31/24 14:01) Other Antihistamines - Ethanolamine Adverse Reaction (Verified 03/31/24 14:01) Other Antihistamines - Ethylenediamine Adverse Reaction (Verified 03/31/24 14:01) Other Antihistamines - Piperazine Adverse Reaction (Verified 03/31/24 14:01) Other Antihistamines - Piperidine Adverse Reaction (Verified 03/31/24 14:01) Other prochlorperazine Adverse Reaction (Verified 03/31/24 14:01) Other shellfish derived Adverse Reaction (Verified 03/31/24 14:01) Abd cramps/diarrhea Medications ???Medication ???Instructions ???Recorded ???Confirmed ???Type omeprazole 20 mg tablet,delayed 20 mg PO DAILY 01/19/22 04/14/24 History release bictegravir 50 mg-emtricitabine 1 tab PO DAILY 11/25/22 04/14/24 History 200 mg-tenofovir alafenam 25 mg tablet (Biktarvy) albuterol sulfate 90 mcg/actuation 1 inh inhalation DAILY PRN 08/27/23 04/14/24 History aerosol inhaler shortness of breath or wheezing ondansetron 4 mg disintegrating 4 mg PO Q8H PRN PRN Nausea #10 tabs 12/06/23 04/14/24 Rx tablet lactobacillus combination no.9 4 4,000 mmu cells PO DAILY 03/10/24 04/14/24 History billion cell capsule (Adult 50 Plus Probiotic) propranolol 20 mg tablet 20 mg PO QDAY 03/10/24 04/14/24 History valsartan 160 mg tablet 160 mg PO DAILY #90 tabs 03/10/24 04/14/24 Rx buspirone 5 mg tablet 5 mg PO .COMPLEX 03/31/24 04/14/24 History cholecalciferol (vitamin D3) 25 25 mcg PO QDAY 03/31/24 04/14/24 History mcg (1,000 unit) capsule (Vitamin D3) fluticasone propionate 50 1 spray intranasal QDAY 03/31/24 04/14/24 History mcg/actuation nasal spray,suspension (Flonase Allergy Relief) jhkegipa-znhghkmg-jtakb acid 400 tab PO 03/31/24 04/14/24 History mcg-vit K 20 mcg-lycop 300 mcg tablet (One-A-Day Men's Multivitamin) fluoxetine 40 mg capsule 40 mg PO QDAY 04/14/24 04/14/24 History Have you fallen in the past year?: Yes (Passed out August 2023) Nurse's Note: Patient here for 2 week BP check. Patient started valsartan on 03/10/24. On 03/31/24 patient returned for 2 week check. BP 134/86 HR 101-105. Patient had covid 03/23/24 and was given Paxlovid. After finishing paxlovid his symptoms returned and he tested positive for covid again. Patient returned today for another BP check. Today BP 119/[address] calcium score scheduled for 04/23/24. Patient states that insurance finally approved the testing but he thinks the approval was only good through 04/19/24. Will check with precert and scheduling and call patient. Clinical Quality Measures Falls Risk Screening/Assistive Devices Have you fallen in the past year?: Yes (Passed out August 2023) 06/01/24 09 Date Rebekah Palomares MD Cosign Signature: Date (if applicable) CC: Dr. Rebekah Palomares MD [facility] BD DXA - AXIAL SKELETONon BD DXA - AXIAL SKELETON * * *Final Report* * * DATE OF EXAM: Apr 01 2024 10:25AM [facility] - BD DXA - AXIAL SKELETON / PROCEDURE REASON: multiple diagnoses * * * * Physician Interpretation * * * * EXAMINATION: DXA BONE DENSITOMETRY BD DXA - AXIAL SKELETON, BD DXA TRABECLR BONE SCORE (TBS) PATIENT DEMOGRAPHICS: Age: 33 years, Gender: Male SCANNER INFORMATION: DXA Model: [facility] - [employer] C 67084 Date Scanned: 04/01/2024 10:25 AM CLINICAL HISTORY: [...] had a previous bone density in the [facility] or the previous bone density was performed on a different DXA machine (new, updated model or different location) within the [facility]. VERTEBRAL FRACTURE ASSESSMENT Not performed. TRABECULAR BONE [...] FOR MORE INFORMATION ABOUT DIAGNOSIS AND TREATMENT: [facility] for Osteoporosis and Metabolic Bone Disease:? www.ccf.org/arthritis/ost eo National Osteoporosis Foundation:? www.nof.org International Society of Clinical Densitometry www.iscd.org Kineseologist: MIRIAN Transcribe Date/Time: Apr 05 2024 11:13A Dictated by : TIMOTHY BECKHAM MD This examination was interpreted and the report reviewed and electronically signed by: TIMOTHY BECKHAM MD on Apr 05 2024 11:15AM EST [id number] Normal [facility] BD DXA TRABECLR BONE SCORE ( TBS)on 04-01-2024 BD DXA TRABECLR BONE SCORE (TBS) * * *Final Report* * * DATE OF EXAM: Apr 01 2024 10:25AM [facility] 0801 - BD DXA TRABECLR BONE SCORE (TBS) / PROCEDURE REASON: multiple diagnoses * * * * Physician Interpretation * * * * EXAMINATION: DXA BONE DENSITOMETRY BD DXA - AXIAL SKELETON, BD DXA TRABECLR BONE SCORE (TBS) PATIENT DEMOGRAPHICS: Age: 33 years, Gender: Male SCANNER INFORMATION: DXA Model: [employer] - [employer] C 10565 Date Scanned: 04/01/2024 10:25 AM CLINICAL HISTORY: [...] had a previous bone density in the [facility] or the previous bone density was performed on a different DXA machine (new, updated model or different location) within the [facility]. VERTEBRAL FRACTURE ASSESSMENT Not performed. TRABECULAR BONE [...] FOR MORE INFORMATION ABOUT DIAGNOSIS AND TREATMENT: [facility] for Osteoporosis and Metabolic Bone Disease:? www.ccf.org/arthritis/ost eo National Osteoporosis Foundation:? www.nof.org International Society of Clinical Densitometry www.iscd.org Kineseologist: MIRIAN Transcribe Date/Time: Apr 05 2024 11:13A Dictated by : TIMOTHY BECKHAM MD This examination was interpreted and the report reviewed and electronically signed by: TIMOTHY BECKHAM MD on Apr 05 2024 11:15AM EST [id number] Normal [facility] Basic Metabolic Profile (BMP )on 03-31-2024 BUN/CRE 9.8 RATIO Low 10-20 [facility] Comment on above: Performed By: #### M 8200.2203, L509.8000, L500.2500, L100.0100, L500.3400, L3890.4000, L3890.0200 #### [facility] [address] [place], [address] CA,Total 9.5 mg/dL Normal 8.5-10.1 [facility] Comment on above: Performed By: #### M 8200.2203, L509.8000, L500.2500, L100.0100, L500.3400, L3890.4000, L3890.0200 #### [facility] [address] [place], [address] Chloride [Moles/Vol] 106 mmol/L Normal 98-107 [facility] Comment on above: Performed By: #### M 8200.2203, L509.8000, L500.2500, L100.0100, L500.3400, L3890.4000, L3890.0200 #### [facility] [address] [place], [address] CO2 [Moles/Vol] 27.0 mmol/L Normal 21.0-32.0 [facility] Comment on above: Performed By: #### M 8200.2203, L509.8000, L500.2500, L100.0100, L500.3400, L3890.4000, L3890.0200 #### [facility] [address] [place], [address] Creatinine [Mass/Vol] 0.92 mg/dL Normal 0.70-1.30 [facility] Comment on above: Result Comment: The validity of the calculated GFR GFRAA in patients over 70 years has not been determined. Clinical correlation is essential. Performed By: #### M 8200.2203, L509.8000, L500.2500, L100.0100, L500.3400, L3890.4000, L3890.0200 #### [facility] [address] [place], [address] EST GFR - AA 120 mL/min Normal >60 [facility] Comment on above: Result Comment: Afri can Bhutanese GFR Calc Performed By: #### M 8200.2203, L509.8000, L500.2500, L100.0100, L500.3400, L3890.4000, L3890.0200 #### [facility] [address] [place], [address] GAP 7 Normal 5-15 [facility] Comment on above: Performed By: #### M 8200.2203, L509.8000, L500.2500, L100.0100, L500.3400, L3890.4000, L3890.0200 #### [facility] [address] [place], [address] GFR/1.73 sq M.predicted among non-blacks MDRD (S/P/Bld) [Vol rate/Area] 99 mL/min/{1.73_m2} Normal >60 [facility] Comment on above: Result Comment: Non- GFR Calc Performed By: #### M 8200.2203, L509.8000, L500.2500, L100.0100, L500.3400, L3890.4000, L3890.0200 #### [facility] [address] [place], [address] Glucose [Mass/Vol] 102 mg/dL Normal 74-106 [facility] Comment on above: Result Comment: Fast ing Glucose result from 100 to 125 mg/dL suggests IMPAIRED HOMEOSTASIS per A.D.A. criteria. Performed By: #### M 8200.2203, L509.8000, L500.2500, L100.0100, L500.3400, L3890.4000, L3890.0200 #### [facility] [address] [place], [address] Potassium [Moles/Vol] 4.2 mmol/L Normal 3.5-5.1 [facility] Comment on above: Performed By: #### M 8200.2203, L509.8000, L500.2500, L100.0100, L500.3400, L3890.4000, L3890.0200 #### [facility] [address] [place], [address] Sodium [Moles/Vol] 140 mmol/L Normal 136-145 [facility] Comment on above: Performed By: #### M 8200.2203, L509.8000, L500.2500, L100.0100, L500.3400, L3890.4000, L3890.0200 #### [facility] [address] [place], [address] Urea nitrogen [Mass/Vol] 9 mg/dL Normal 7-18 [facility] Comment on above: Performed By: #### M 8200.2203, L509.8000, L500.2500, L100.0100, L500.3400, L3890.4000, L3890.0200 #### [facility] [address] [place], [address] Lipid Profileon 03-31-2024 Cholesterol [Mass/Vol] 202 mg/dL High 200 [facility] Comment on above: Result Comment: <200 mg/dL Desirable 200-240 mg/dL Borderline >240 mg/dL High Risk Performed By: #### M 8200.2203, L509.8000, L500.2500, L100.0100, L500.3400, L3890.4000, L3890.0200 #### [facility] [address] [place], [address] Cholesterol in HDL [Mass/Vol] 45 mg/dL Normal [facility] Comment on above: Result Comment: The drugs N-Acetylcysteine and Metamizole may falsely depress this assay. Reference Range HDL <40 mg/dL Low HDL Cholesterol HDL >or= 60 mg/dL High HDL Cholesterol Performed By: #### M 8200.2203, L509.8000, L500.2500, L100.0100, L500.3400, L3890.4000, L3890.0200 #### [facility] [address] [place], [address] Cholesterol in LDL [Mass/Vol] 123 mg/dL Normal 0-130 [facility] Comment on above: Performed By: #### M 8200.2203, L509.8000, L500.2500, L100.0100, L500.3400, L3890.4000, L3890.0200 #### [facility] [address] [place], [address] Cholesterol in VLDL [Mass/Vol] 34 mg/dL Normal 5-40 [facility] Comment on above: Performed By: #### M 8200.2203, L509.8000, L500.2500, L100.0100, L500.3400, L3890.4000, L3890.0200 #### [facility] [address] [place], [address] Triglyceride [Mass/Vol] 172 mg/dL Normal [facility] Comment on above: Result Comment: The drugs N-Acetylcysteine and Metamizole may falsely depress this assay. Serum Triglycerides Reference Interval Normal <150 mg/dL Borderline high 150 - 199 mg/dL High 200 - 499 mg/dL Very High > or = 500 mg/dL Performed By: #### M 8200.2203, L509.8000, L500.2500, L100.0100, L500.3400, L3890.4000, L3890.0200 #### [facility] [address] [place], [address] Office Visit Reporton 2023 Office Visit Report [facility] [address] [address] OFFICE VISIT Date of Service: 03/31/24 MR#: [id number] Acct: [id number] Patient: FAUSTINO UNGER Rep #: [id number] : 1990 Provider: Dr. Rebekah Palomares MD Age/Sex: 33/M [place] [facility] Status: Signed Intake Vital Signs 03/15/24 15:37 03/23/24 13:11 03/31/24 14:05 03/31/24 14:17 Height 5 ft 8 in 5 ft 8 in BP 134/86 H Blood Pressure Location Lt brachial Position Sitting Respiration 16 Pulse 101 H 105 H Pulse Source NIBP Intake Visit Reasons: BP CHECK Vp Communications Required: No Is patient in pain?: No Allergies meloxicam (From Mobic) Allergy (Severe, Verified 03/31/24 14:01) Anaphylaxis metoclopramide (From Reglan) Allergy (Verified 03/31/24 14:01) Other Antihistamines - Alkylamine Adverse Reaction (Verified 03/31/24 14:01) Other Antihistamines - Ethanolamine Adverse Reaction (Verified 03/31/24 14:01) Other Antihistamines - Ethylenediamine Adverse Reaction (Verified 03/31/24 14:01) Other Antihistamines - Piperazine Adverse Reaction (Verified 03/31/24 14:01) Other Antihistamines - Piperidine Adverse Reaction (Verified 03/31/24 14:01) Other prochlorperazine Adverse Reaction (Verified 03/31/24 14:01) Other shellfish derived Adverse Reaction (Verified 03/31/24 14:01) Abd cramps/diarrhea Medications ???Medication ???Instructions ???Recorded ???Confirmed ???Type omeprazole 20 mg tablet,delayed 20 mg PO DAILY 01/19/22 03/31/24 History release bictegravir 50 mg-emtricitabine 1 tab PO DAILY 11/25/22 03/31/24 History 200 mg-tenofovir alafenam 25 mg tablet (Biktarvy) albuterol sulfate 90 mcg/actuation 1 inh inhalation DAILY PRN 08/27/23 03/31/24 History aerosol inhaler shortness of breath or wheezing ondansetron 4 mg disintegrating 4 mg PO Q8H PRN PRN Nausea #10 tabs 12/06/23 03/31/24 Rx tablet fluoxetine 20 mg capsule 20 mg PO QDAY 03/10/24 03/31/24 History lactobacillus combination no.9 4 4,000 mmu cells PO DAILY 03/10/24 03/31/24 History billion cell capsule (Adult 50 Plus Probiotic) propranolol 20 mg tablet 20 mg PO QDAY 03/10/24 03/31/24 History valsartan 160 mg tablet 160 mg PO DAILY #90 tabs 03/10/24 03/31/24 Rx buspirone 5 mg tablet 5 mg PO .COMPLEX 03/31/24 03/31/24 History cholecalciferol (vitamin D3) 25 25 mcg PO QDAY 03/31/24 03/31/24 History mcg (1,000 unit) capsule (Vitamin D3) fluticasone propionate 50 1 spray intranasal QDAY 03/31/24 03/31/24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 M 8200.2203, L509.8000, L500.2500, L100.0100, L500.3400, L3890.4000, L3890.0200 #### [facility] [address] [place], [address] Lymphocytes 31 Normal Not Estab. [facility] Comment on above: Performed By: #### M 8200.2203, L509.8000, L500.2500, L100.0100, L500.3400, L3890.4000, L3890.0200 #### [facility] [address] [place], [address] Lymphocytes (Bld) [#/Vol] 2.5 10*3/uL Normal 0.7-3.1 [facility] Comment on above: Performed By: #### M 8200.2203, L509.8000, L500.2500, L100.0100, L500.3400, L3890.4000, L3890.0200 #### [facility] [address] [place], [address] MCH (RBC) [Entitic mass] 31.8 pg Normal 26.6-33.0 [facility] Comment on above: Performed By: #### M 8200.2203, L509.8000, L500.2500, L100.0100, L500.3400, L3890.4000, L3890.0200 #### [facility] [address] [place], [address] MCHC (RBC) [Mass/Vol] 32.8 g/dL Normal 31.5-35.7 [facility] Comment on above: Performed By: #### M 8200.2203, L509.8000, L500.2500, L100.0100, L500.3400, L3890.4000, L3890.0200 #### [facility] [address] [place], [address] MCV (RBC) [Entitic vol] 97 fL Normal 79-97 [facility] Comment on above: Performed By: #### M 8200.2203, L509.8000, L500.2500, L100.0100, L500.3400, L3890.4000, L3890.0200 #### [facility] [address] [place], [address] Monocytes 10 Normal Not Estab. [facility] Comment on above: Performed By: #### M 8200.2203, L509.8000, L500.2500, L100.0100, L500.3400, L3890.4000, L3890.0200 #### [facility] [address] [place], [address] Monos Absolute 0.8 x10E3/uL Normal 0.1-0.9 [facility] Comment on above: Performed By: #### M 8200.2203, L509.8000, L500.2500, L100.0100, L500.3400, L3890.4000, L3890.0200 #### [facility] [address] [place], [address] Neutro Absolute 4.4 x10E3/uL Normal 1.4-7.0 [facility] Comment on above: Performed By: #### M 8200.2203, L509.8000, L500.2500, L100.0100, L500.3400, L3890.4000, L3890.0200 #### [facility] [address] [place], [address] Neutrophils 54 Normal Not Estab. [facility] Comment on above: Performed By: #### M 8200.2203, L509.8000, L500.2500, L100.0100, L500.3400, L3890.4000, L3890.0200 #### [facility] [address] [place], [address] NRBC Count TNP Normal . [facility] Comment on above: Performed By: #### M 8200.2203, L509.8000, L500.2500, L100.0100, L500.3400, L3890.4000, L3890.0200 #### [facility] [address] [place], [address] Platelets (Bld) [#/Vol] 338 10*3/uL Normal 150-450 [facility] Comment on above: Performed By: #### M 8200.2203, L509.8000, L500.2500, L100.0100, L500.3400, L3890.4000, L3890.0200 #### [facility] [address] [place], [address] RBC (Bld) [#/Vol] 4.65 10*6/uL Normal 4.14-5.80 [facility] Comment on above: Performed By: #### M 8200.2203, L509.8000, L500.2500, L100.0100, L500.3400, L3890.4000, L3890.0200 #### [facility] [address] [place], [address] WBC (Bld) [#/Vol] 8.0 10*3/uL Normal 3.4-10.8 [facility] Comment on above: Performed By: #### M 8200.2203, L509.8000, L500.2500, L100.0100, L500.3400, L3890.4000, L3890.0200 #### [facility] [address] [place], [address] HIV Viral Load Quanton 02-27 HIV-1 RNA, PCR < 20 Normal . [facility] Comment on above: Result Comment: HIV- 1 RNA not detected The reportable range for this assay is 20 to 10,000,000 copies HIV-1 RNA/mL. Performed By: #### M 8200.2203, L509.8000, L500.2500, L100.0100, L500.3400, L3890.4000, L3890.0200 #### [facility] [address] [place], [address] log10 HIV-1 RNA TNP Normal . [facility] Comment on above: Result Comment: Resu lt Units: ltl57sodg/mL Unable to calculate result since non-numeric result obtained for component test. Performed at: [address] [id number] [place] Man: Weston Rodrigez MD, Phone: [phone] Performed By: #### M 8200.2203, L509.8000, L500.2500, L100.0100, L500.3400, L3890.4000, L3890.0200 #### [facility] [address] [place], [address] [facility] CNPN Telephone (SARAMD) ----- FAUSTINO UNGER ([id number]) 1990 M Date Time Provider Department 02/27/24 MEAGHAN BLOOM During your visit today, we recorded the following information about you: Kaley Ward 02/27/2024 8:46 AM Signed Patient is being referred to hematology oncology DX: Abnormal finding on Imaging Insurance: [employer] Referred by: Mojgan Elizabeth APRN. SSIS DEVELOPER Please review and advise Jadyn Snow LPN 02/27/2024 9:44 AM Signed Please see distance health note from yesterday. GERARD Hennessy Paul A, DO 03/01/2024 2:11 PM Signed Next kerry. or Dr. Manzano. DO Marylou Snider, Gloria 03/01/2024 3:26 PM Signed I called and spoke to patient AND scheduled him with for 03/15/24 @ 1:30 pm, patient confirmed this date, time and location [facility] Pss Allergies As of Date: 02/27/2024 Noted Allergy Reaction ANTIHISTIMINE 06/19/2015 1 - Mental Status Change METOCLOPRAMIDE 01/28/2019 1 - Mental Status Change 14 - Other: See Comments MOBIC (MELOXICAM) 08/31/2023 10 - Anaphylaxis PROCHLORPERAZINE 01/28/2019 1 - Mental Status Change 14 - Other: See Comments SHELLFISH DERIVED 03/21/2022 6 - Diarrhea Date Reviewed: 12/22/2023 Reviewed by: Rahel Sims RN - Fully Assessed Reason for [...] Penile pain [N48.89] 12/04/2015 Encounter Status:Closed by GLORIA CORDERO on 03/01/24 Normal [facility] Basic Metabolic Profile (BMP )on 02-25-2024 BUN/CRE 12.5 RATIO Normal 10-20 [facility] Comment on above: Performed By: #### M 8200.2203, L509.8000, L500.2500, L100.0100, L500.3400, L3890.4000, L3890.0200 #### [facility] [address] [place], [address] CA,Total 8.9 mg/dL Normal 8.5-10.1 [facility] Comment on above: Performed By: #### M 8200.2203, L509.8000, L500.2500, L100.0100, L500.3400, L3890.4000, L3890.0200 #### [facility] [address] [place], [address] Chloride [Moles/Vol] 106 mmol/L Normal 98-107 [facility] Comment on above: Performed By: #### M 8200.2203, L509.8000, L500.2500, L100.0100, L500.3400, L3890.4000, L3890.0200 #### [facility] [address] [place], [address] CO2 [Moles/Vol] 29.0 mmol/L Normal 21.0-32.0 [facility] Comment on above: Performed By: #### M 8200.2203, L509.8000, L500.2500, L100.0100, L500.3400, L3890.4000, L3890.0200 #### [facility] [address] [place], [address] Creatinine [Mass/Vol] 0.80 mg/dL Normal 0.70-1.30 [facility] Comment on above: Result Comment: The validity of the calculated GFR GFRAA in patients over 70 years has not been determined. Clinical correlation is essential. Performed By: #### M 8200.2203, L509.8000, L500.2500, L100.0100, L500.3400, L3890.4000, L3890.0200 #### [facility] [address] [place], [address] EST GFR - AA 142 mL/min Normal >60 [facility] Comment on above: Result Comment: Afri can Bhutanese GFR Calc Performed By: #### M 8200.2203, L509.8000, L500.2500, L100.0100, L500.3400, L3890.4000, L3890.0200 #### [facility] [address] [place], [address] GAP 5 Normal 5-15 [facility] Comment on above: Performed By: #### M 8200.2203, L509.8000, L500.2500, L100.0100, L500.3400, L3890.4000, L3890.0200 #### [facility] [address] [place], [address] GFR/1.73 sq M.predicted among non-blacks MDRD (S/P/Bld) [Vol rate/Area] 117 mL/min/{1.73_m2} Normal >60 [facility] Comment on above: Result Comment: Non- GFR Calc Performed By: #### M 8200.2203, L509.8000, L500.2500, L100.0100, L500.3400, L3890.4000, L3890.0200 #### [facility] [address] [place], [address] Glucose [Mass/Vol] 84 mg/dL Normal 74-106 [facility] Comment on above: Performed By: #### M 8200.2203, L509.8000, L500.2500, L100.0100, L500.3400, L3890.4000, L3890.0200 #### [facility] [address] [place], [address] Potassium [Moles/Vol] 3.9 mmol/L Normal 3.5-5.1 [facility] Comment on above: Performed By: #### M 8200.2203, L509.8000, L500.2500, L100.0100, L500.3400, L3890.4000, L3890.0200 #### [facility] [address] [place], [address] Sodium [Moles/Vol] 140 mmol/L Normal 136-145 [facility] Comment on above: Performed By: #### M 8200.2203, L509.8000, L500.2500, L100.0100, L500.3400, L3890.4000, L3890.0200 #### [facility] [address] [place], [address] Urea nitrogen [Mass/Vol] 10 mg/dL Normal 7-18 [facility] Comment on above: Performed By: #### M 8200.2203, L509.8000, L500.2500, L100.0100, L500.3400, L3890.4000, L3890.0200 #### [facility] [address] [place], [address] CBC W/Diff, Automatedon 08-0 Absolute Lymph 2.54 X10 3/uL Normal 0.83-4.51 [facility] Comment on above: Performed By: #### M 8200.2203, L509.8000, L500.2500, L100.0100, L500.3400, L3890.4000, L3890.0200 #### [facility] [address] [place], [address] Absolute Neut 4.0 X10 3/uL Normal 2.0-7.7 [facility] Comment on above: Performed By: #### M 8200.2203, L509.8000, L500.2500, L100.0100, L500.3400, L3890.4000, L3890.0200 #### [facility] [address] [place], [address] Basophils/100 WBC (Bld) 0.5 % Normal 0-1 [facility] Comment on above: Performed By: #### M 8200.2203, L509.8000, L500.2500, L100.0100, L500.3400, L3890.4000, L3890.0200 #### [facility] [address] [place], [address] Eosinophils/100 WBC (Bld) 3.8 % Normal 0-5 [facility] Comment on above: Performed By: #### M 8200.2203, L509.8000, L500.2500, L100.0100, L500.3400, L3890.4000, L3890.0200 #### [facility] [address] [place], [address] Erythrocyte distribution width (RBC) [Ratio] 13.8 % Normal 11.6-14.6 [facility] Comment on above: Performed By: #### M 8200.2203, L509.8000, L500.2500, L100.0100, L500.3400, L3890.4000, L3890.0200 #### [facility] [address] [place], [address] Hematocrit (Bld) [Volume fraction] 43.1 % Normal 40-54 [facility] Comment on above: Performed By: #### M 8200.2203, L509.8000, L500.2500, L100.0100, L500.3400, L3890.4000, L3890.0200 #### [facility] [address] [place], [address] Hemoglobin (Bld) [Mass/Vol] 14.4 g/dL Normal 13.0-16.5 [facility] Comment on above: Performed By: #### 8200.2203, L509.8000, L500.2500, L100.0100, L500.3400, L3890.4000, L3890.0200 #### [facility] [address] [place], [address] IG% 0.500 Normal 0.0-0.9 [facility] Comment on above: Result Comment: IG% - Immature Granulocytes (promyelocytes, myelocytes and metamyelocytes) > 1% indicates that a LEFT SHIFT is Present. Performed By: #### 8200.2203, L509.8000, L500.2500, L100.0100, L500.3400, L3890.4000, L3890.0200 #### [facility] [address] [place], [address] Lymphocytes/100 WBC (Bld) 33.2 % Normal 19-41 [facility] Comment on above: Performed By: #### M 8200.2203, L509.8000, L500.2500, L100.0100, L500.3400, L3890.4000, L3890.0200 #### [facility] [address] [place], [address] MCH (RBC) [Entitic mass] 31.9 pg Normal 27.0-32.0 [facility] Comment on above: Performed By: #### M 8200.2203, L509.8000, L500.2500, L100.0100, L500.3400, L3890.4000, L3890.0200 #### [facility] [address] [place], [address] MCHC (RBC) [Mass/Vol] 33.4 g/dL Normal 32-36 [facility] Comment on above: Performed By: #### M 8200.2203, L509.8000, L500.2500, L100.0100, L500.3400, L3890.4000, L3890.0200 #### [facility] [address] [place], [address] MCV (RBC) [Entitic vol] 95.6 fL High 80-94 [facility] Comment on above: Performed By: #### M 8200.2203, L509.8000, L500.2500, L100.0100, L500.3400, L3890.4000, L3890.0200 #### [facility] [address] [place], [address] Monocytes/100 WBC (Bld) 9.8 % Normal 0-10 [facility] Comment on above: Performed By: #### M 8200.2203, L509.8000, L500.2500, L100.0100, L500.3400, L3890.4000, L3890.0200 #### [facility] [address] [place], [address] Neutrophils/100 WBC (Bld) 52.2 % Normal 47-70 [facility] Comment on above: Performed By: #### M 8200.2203, L509.8000, L500.2500, L100.0100, L500.3400, L3890.4000, L3890.0200 #### [facility] [address] [place], [address] Nucleated RBC (Bld) [#/Vol] 0 10*3/uL Normal 0-5 [facility] Comment on above: Performed By: #### M 8200.2203, L509.8000, L500.2500, L100.0100, L500.3400, L3890.4000, L3890.0200 #### [facility] [address] [place], [address] Platelet mean volume (Bld) [Entitic vol] 8.8 fL Normal 6.2-12.0 [facility] Comment on above: Performed By: #### M 8200.2203, L509.8000, L500.2500, L100.0100, L500.3400, L3890.4000, L3890.0200 #### [facility] [address] [place], [address] Platelets (Bld) [#/Vol] 299 10*3/uL Normal 150-450 [facility] Comment on above: Performed By: #### M 8200.2203, L509.8000, L500.2500, L100.0100, L500.3400, L3890.4000, L3890.0200 #### [facility] [address] [place], [address] RBC (Bld) [#/Vol] 4.51 10*6/uL Low 4.6-6.2 [facility] Comment on above: Performed By: #### M 8200.2203, L509.8000, L500.2500, L100.0100, L500.3400, L3890.4000, L3890.0200 #### [facility] [address] [place], [address] RDW SD 48.8 fl High 35.1-43.9 [facility] Comment on above: Performed By: #### M 8200.2203, L509.8000, L500.2500, L100.0100, L500.3400, L3890.4000, L3890.0200 #### [facility] [address] [place], [address] WBC (Bld) [#/Vol] 7.6 10*3/uL Normal 4.4-11.0 [facility] Comment on above: Performed By: #### M 8200.2203, L509.8000, L500.2500, L100.0100, L500.3400, L3890.4000, L3890.0200 #### [facility] [address] [place], [address] L509.8000on 02-25-2024 Syphilis Abs Non-Reactive Normal [facility] Comment on above: Performed By: #### M 8200.2203, L509.8000, L500.2500, L100.0100, L500.3400, L3890.4000, L3890.0200 #### [facility] [address] [place], [address] Liver Profileon 02-25-2024 Albumin [Mass/Vol] 3.7 g/dL Normal 3.2-5.0 [facility] Comment on above: Performed By: #### M 8200.2203, L509.8000, L500.2500, L100.0100, L500.3400, L3890.4000, L3890.0200 #### [facility] [address] [place], [address] ALK P 94 U/L Normal 45-117 [facility] Comment on above: Performed By: #### M 8200.2203, L509.8000, L500.2500, L100.0100, L500.3400, L3890.4000, L3890.0200 #### [facility] [address] [place], [address] ALT [Catalytic activity/Vol] 27 U/L Normal 16-61 [facility] Comment on above: Performed By: #### M 8200.2203, L509.8000, L500.2500, L100.0100, L500.3400, L3890.4000, L3890.0200 #### [facility] [address] [place], [address] AST [Catalytic activity/Vol] 22 U/L Normal 15-37 [facility] Comment on above: Performed By: #### M 8200.2203, L509.8000, L500.2500, L100.0100, L500.3400, L3890.4000, L3890.0200 #### [facility] [address] [place], [address] Bilirubin [Mass/Vol] 0.30 mg/dL Normal 0.20-1.00 [facility] Comment on above: Result Comment: For patients on eltrombopag therapy, use of Dimension [place] TBIL is not recommended. Performed By: #### M 8200.2203, L509.8000, L500.2500, L100.0100, L500.3400, L3890.4000, L3890.0200 #### [facility] [address] [place], [address] Bilirubin.direct [Mass/Vol] 0.10 mg/dL Normal 0.00-0.30 [facility] Comment on above: Performed By: #### M 8200.2203, L509.8000, L500.2500, L100.0100, L500.3400, L3890.4000, L3890.0200 #### [facility] [address] [place], [address] Globulin (S) [Mass/Vol] 3.4 g/dL Normal 2.2-4.2 [facility] Comment on above: Performed By: #### M 8200.2203, L509.8000, L500.2500, L100.0100, L500.3400, L3890.4000, L3890.0200 #### [facility] [address] [place], [address] T PROT 7.1 g/dL Normal 6.4-8.2 [facility] Comment on above: Performed By: #### M 8200.2203, L509.8000, L500.2500, L100.0100, L500.3400, L3890.4000, L3890.0200 #### [facility] [address] [place], [address] M8200.2203on 02-25-2024 M8200.2203 Chlamydia Trachomati s PCR NEGATIVE for Chlamydia trachomatis N. gonorrhoeae PCR Negative for N. gonorrhoeae Normal [facility] Comment on above: Performed By: #### M 8200.2203, L509.8000, L500.2500, L100.0100, L500.3400, L3890.4000, L3890.0200 #### [facility] [address] [place], [place], [address] [facility] ----- FAUSTINO UNGER ([id number]) 1990 Date Time Provider Department 02/17/24 KASIA TORREZ RAAF During your visit today, we recorded the [...] - Diarrhea Date Reviewed: 12/22/2023 Reviewed by: Rahel Sims, RN - Fully Assessed Reason for Visit: Actionable Findings Follow Up [3260] Prescriptions as of 05/06/2024 - FLUoxetine (PROZAC) [...] pain [N48.89] 12/04/2015 Encounter Status:Closed by KASIA TORREZ on 05/06/24 Normal [facility] ALCOHOL-BLOOD MEDICALon 12-19 Ethanol [Mass/Vol] 5 mg/dL Normal 0 - 50 [facility] Comment on above: Performed By: #### 2 [address]88 #### [place] [id number] CBC + DIFFon 01-04-2024 Baso # 0.02 x10EE3/UL Normal 0.00 - 0.10 [facility] Comment on above: Performed By: #### 2 44354 #### [place] [address] Basophils/100 WBC (Bld) 0.3 % Normal 0.0 - 2.0 [facility] Comment on above: Performed By: #### 2 69818 #### [place] [address] CBC + DIFF Normal [facility] Comment on above: Result Comment: CBC- COMPLETE BLOOD COUNT Performed By: #### 2 01025 #### [facility],[address] [place] [address] EO # 0.23 x10EE3/UL Normal 0.00 - 0.50 [facility] Comment on above: Performed By: #### 2 85386 #### [place] [address] Eosinophils/100 WBC (Bld) 3.3 % Normal 0.0 - 7.0 [facility] Comment on above: Performed By: #### 2 19252 #### [place] [address] Erythrocyte distribution width (RBC) [Ratio] 13.6 % Normal 12.0 - 15.6 [facility] Comment on above: Performed By: #### 2 31995 #### [place] [address] Hematocrit (Bld) [Volume fraction] 50.8 % Normal 40.0 - 52.0 [facility] Comment on above: Performed By: #### 2 91257 #### [facility],[address] [place] [address] Hemoglobin (Bld) [Mass/Vol] 17.2 g/dL Normal 13.0 - 17.5 [facility] Comment on above: Performed By: #### 2 54613 #### [place] [address] Lymph # 1.84 x10EE3/UL Normal 0.80 - 2.80 [facility] Comment on above: Performed By: #### 2 63602 #### [facility] [place] [address] Lymphocytes/100 WBC (Bld) 26.6 % Normal 20.0 - 45.0 [facility] Comment on above: Performed By: #### 2 33292 #### [facility],[address] [place] [address] MANUAL DIFF N/A Normal [facility] Comment on above: Performed By: #### 2 44708 #### [facility],[address] [place] [address] MCH (RBC) [Entitic mass] 32 pg Normal 27 - 33 [facility] Comment on above: Performed By: #### 2 71702 #### [facility],[address] [place] [address] MCHC 34 X10 3 Normal 32 - 36 [facility] Comment on above: Performed By: #### 2 33338 #### [facility],[address] [place] [address] MCV (RBC) [Entitic vol] 95 fL Normal 81 - 98 [facility] Comment on above: Performed By: #### 2 27046 #### [facility],[address] [place] [address] Arthur # 0.90 x10EE3/UL Normal 0.20 - 1.00 [facility] Comment on above: Performed By: #### 2 25657 #### [facility],[address] [place] [address] MONOS % 13.0 % High 0.0 - 10.0 [facility] Comment on above: Performed By: #### 2 87081 #### [place] [address] Morphology Lit (Bld) [Interp] N/A Normal [facility] Comment on above: Performed By: #### 2 74950 #### [facility],[address],[place] [address] Neut # 3.93 x10EE3/UL Normal 1.50 - 7.10 [facility] Comment on above: Performed By: #### 2 54843 #### [facility],[address] [place] [address] Neutrophils/100 WBC (Bld) 56.8 % Normal 46.0 - 76.0 [facility] Comment on above: Performed By: #### 2 98405 #### [facility],[address] [place] [address] PLATELET 303 x10EE3/UL Normal 150 - 450 [facility] Comment on above: Performed By: #### 2 04187 #### [facility],[address] [place] [address] Platelet mean volume (Bld) [Entitic vol] 6.5 fL Normal 6.4 - 10.5 [facility] Comment on above: Result Comment: AUTO MATED DIFFERENTIAL Performed By: #### 2 38084 #### [facility],[address] [place] [address] RBC 5.32 x 10EE6/UL Normal 4.50 - 6.00 [facility] Comment on above: Performed By: #### 2 50551 #### [facility],[address] [place] [address] WBC 6.9 x 10EE3/UL Normal 4.5 - 10.8 [facility] Comment on above: Performed By: #### 2 17442 #### [facility],[address] [place] [address] CMP with eGFRon 01-04-2024 AGE 33 years Normal [facility] Comment on above: Performed By: #### 2 22974 #### [facility],[address] [place] [address] Albumin [Mass/Vol] 3.9 g/dL Normal 3.4 - 5.0 [facility] Comment on above: Performed By: #### 2 57024 #### [facility],[address] [place] [address] Albumin/Globulin [Mass ratio] 1.2 {ratio} Normal 0.9 - 1.6 [facility] Comment on above: Performed By: #### 2 00586 #### [facility],[address] [place] [address] ALK PHOS 103 U/L Normal 46 - 116 [facility] Comment on above: Performed By: #### 2 50508 #### [facility],[address] [place] [address] ALT [Catalytic activity/Vol] 29 U/L Normal 16 - 63 [facility] Comment on above: Performed By: #### 2 94864 #### [facility],[address] [place] [address] Anion gap [Moles/Vol] 12 mmol/L Normal 10 - 20 [facility] Comment on above: Performed By: #### 2 90852 #### [facility],[address] [place] [address] AST [Catalytic activity/Vol] 18 U/L Normal 15 - 37 [facility] Comment on above: Performed By: #### 2 68195 #### [facility],[address] [place] [address] B/C RATIO 12 ratio Normal 0 - 30 [facility] Comment on above: Performed By: #### 2 01489 #### [facility],[address] [place] [place] [address] 44445 Bilirubin [Mass/Vol] 0.3 mg/dL Normal 0.2 - 1.0 [facility] Comment on above: Performed By: #### 2 74846 #### [facility],[address] [place] [address] 24854 Calcium [Mass/Vol] 8.8 mg/dL Normal 8.5 - 10.1 [facility] Comment on above: Performed By: #### 2 78393 #### [facility],[address] [place] [address] 30215 Chloride [Moles/Vol] 103 mmol/L Normal 98 - 107 [facility] Comment on above: Performed By: #### 2 49485 #### [facility],[address] [place] [address] 25515 CMP with eGFR Normal [facility] Comment on above: Result Comment: COMP REHENSIVE METABOLIC PANEL Performed By: #### 2 88605 #### [facility],[address] [place] [address] 44043 CO2 [Moles/Vol] 26.7 mmol/L Normal 21.0 - 32.0 [facility] Comment on above: Performed By: #### 2 57329 #### [facility],[address] [place] [address] 43122 Creatinine [Mass/Vol] 0.83 mg/dL Normal 0.70 - 1.30 [facility] Comment on above: Performed By: #### 2 91919 #### [facility],[address] [place] [address] 70000 GFR/1.73 sq M.predicted among non-blacks MDRD (S/P/Bld) [Vol rate/Area] mL/min/{1.73_m2} Normal 60 - 999 [facility] Comment on above: Performed By: #### 2 31427 #### [facility],[address] [place], [place] [id number] Result Comment: ACCO RDING TO THE NATIONAL KIDNEY DISEASE EDUCATION PROGRAM(NKDE), A NORMAL eGFR IS A VALUE GREATER THAN OR EQUAL TO 60 ML/MIN/1.73 SQ METERS. CHRONIC KIDNEY DISEASE: <60mL/MIN/1.73 SQ METERS KIDNEY FAILURE: <15mL/MIN/1.73 SQ METERS THIS TEST SHOULD ONLY BE USED FOR PATIENTS 18 YEARS OF AGE AND OLDER. Globulin (S) [Mass/Vol] 3.3 g/dL Normal 1.5 - 3.8 [facility] Comment on above: Performed By: #### 2 06321 #### [facility],[address] [place] [address] 44525 Glucose [Mass/Vol] 122 mg/dL High 74 - 106 [facility] Comment on above: Performed By: #### 2 75300 #### [facility],[address] [place] [address] 68096 Potassium [Moles/Vol] 4.0 mmol/L Normal 3.5 - 5.1 [facility] Comment on above: Performed By: #### 2 24996 #### [facility],[address] [place] [address] 52415 Protein [Mass/Vol] 7.2 g/dL Normal 6.4 - 8.2 [facility] Comment on above: Performed By: #### 2 71954 #### [facility],[address] [place] [address] 36454 Sodium [Moles/Vol] 138 mmol/L Normal 136 - 145 [facility] Comment on above: Performed By: #### 2 28024 #### [facility],[address] [place] [address] 65319 Urea nitrogen [Mass/Vol] 10 mg/dL Normal 7 - 18 [facility] Comment on above: Performed By: #### 2 25277 #### [facility],[address] [place] [address] 56450 CORONAVIRUS (SARS) ANTIGEN T ESTon 01-04-2024 EXTERNAL QC DONE? YES Normal [facility] Comment on above: Performed By: #### 2 65972 #### [facility],[address] [place] [address] 44795 INTERNAL CONTROL PASS Normal [facility] Comment on above: Performed By: #### 2 40783 #### [facility],[address] [place] [address] 33634 SARS ANTIGEN Negative Normal NORMAL: NEGATIVE [facility] Comment on above: Performed By: #### 2 73061 #### [facility],[address] [place] [address] SEND TO ? YES Normal [facility] Comment on above: Result Comment: SARS -CoV-2 THIS TEST IS BEING USED UNDER THE FDA EUA PROCEDURE. THIS ASSAY HAS BEEN VALIDATED AT [facility] FOR USE WITH NASAL AND NASOPHARYNGEAL SWAB [...] PUBLIC HEALTH AUTHORITIES. Performed By: #### 2 26045 #### [place] [address] DRUG SCREEN URINE MEDICon AMPHETAMINES Positive Normal [facility] Comment on above: Performed By: #### 2 09128 #### [facility],[address] [place] [address] B-DIAZEPINES Negative Normal [facility] Comment on above: Performed By: #### 2 56872 #### [facility],[address] [place] [address] 53416 BARBITURATES Negative Normal [facility] Comment on above: Performed By: #### 2 93370 #### [facility],[address] [place] [address] 51922 COCAINE Negative Normal [facility] Comment on above: Performed By: #### 2 45837 #### [facility],[address] [place], [place] [id number] DRUG SCREEN URINE MEDIC [facility] Comment on above: Result Comment: DRUG SCREEN - URINE Performed By: #### 2 04819 #### [facility],[address] [place] [address] METHADONE Negative [facility] Comment on above: Performed By: #### 2 78422 #### [facility],[address] [place] [address] 96823 OPIATES Negative [facility] Comment on above: Performed By: #### 2 80151 #### [facility],[address] [place] [address] 14962 PCP Negative [facility] Comment on above: Performed By: #### 2 75064 #### [facility],[address] [place] [address] 13933 THC Negative [facility] Comment on above: Result Comment: QIANA ENTS RECEIVING PROTON PUMP INHIBITORS MAY DEMONSTRATE FALSE POSITIVE THC/CANNABINOID RESULTS. AN ALTERNATIVE CONFIRMATORY METHOD SHOULD BE CONSIDERED TO VERIFY POSITIVE RESULTS. Performed By: #### 2 65755 #### [facility],[address] [place] [address] 73569 URINALYSISon 01-04-2024 Amorphous NONE Normal [facility] Comment on above: Performed By: #### 2 10944 #### [facility],[address] [place] [address] 60010 Bacteria NONE Normal [facility] Comment on above: Performed By: #### 2 96000 #### [facility],[address] [place] [address] 51363 Bilirubin Ql (U) Negative Normal NORMAL: NEGATIVE [facility] Comment on above: Performed By: #### 2 55349 #### [facility],[address] [place] [address] 36000 Casts NONE Normal [facility] Comment on above: Performed By: #### 2 71343 #### [facility],[address] [place] [address] 84171 Clarity (U) clear Normal NORMAL: CLEAR [facility] Comment on above: Performed By: #### 2 22563 #### [facility],[address] [place] [address] 69517 Color (U) yellow Normal NORMAL: YELLOW [facility] Comment on above: Performed By: #### 2 40324 #### [facility],[address] [place] [address] 85539 Crystals LM Nom (Urine sed) NONE Normal [facility] Comment on above: Performed By: #### 2 28595 #### [facility],[address] [place] [address] 25753 Epi Cells NONE Normal [facility] Comment on above: Performed By: #### 2 11689 #### [facility],[address] [place] [address] 44086 Glucose Ql (U) NORM Normal NORMAL: NORMAL [facility] Comment on above: Performed By: #### 2 38943 #### [facility],[address] [place] [address] 65124 Hemoglobin Ql (U) Negative Normal NORMAL: NEGATIVE [facility] Comment on above: Performed By: #### 2 09333 #### [facility],[address] [place] [address] 53173 Ketone Negative Normal NORMAL: NEGATIVE [facility] Comment on above: Performed By: #### 2 08092 #### [facility],[address] [place] [address] 67886 Leukocytes 25 Abnormal NORMAL: NEGATIVE [facility] Comment on above: Performed By: #### 2 86481 #### [facility],[address] [place] [address] 76809 Mucous NONE Normal [facility] Comment on above: Performed By: #### 2 32978 #### [facility],[address] [place] [address] Nitrite Ql (U) Negative Normal NORMAL: NEGATIVE [facility] Comment on above: Performed By: #### 2 16483 #### [facility],[address] [place] [address] pH (U) 8 [pH] Normal NORMAL: 5.0-8.0 [facility] Comment on above: Performed By: #### 2 01452 #### [facility],[address] [place] [address] Protein Ql (U) Negative Normal NORMAL: NEGATIVE [facility] Comment on above: Performed By: #### 2 41682 #### [facility],[address] [place] [address] Rbc NONE Normal 0-3/hpf [facility] Comment on above: Performed By: #### 2 77482 #### [facility],[address] [place] [address] Sp [place] 1.010 Normal NORMAL: 1.010-1.030 [facility] Comment on above: Performed By: #### 2 80826 #### [facility],[address] [place] [address] Specimen Type UNSPECIFIED Normal [facility] Comment on above: Performed By: #### 2 09744 #### [facility],[address] [place] [address] Urinalysis dipstick W Reflex Microscopic panel (U) SEE BELOW Normal [facility] Comment on above: Result Comment: MICR OSCOPIC Performed By: #### 2 56233 #### [facility],[address] [place] [address] 76318 Urobilinog 1 Abnormal NORMAL: NORMAL [facility] Comment on above: Performed By: #### 2 01985 #### [facility],[address] [place] [address] 18513 Wbc 1-5 Normal 0-5/hpf [facility] Comment on above: Performed By: #### 2 57657 #### [facility],[address] [place] [address] 02340 Yeast NONE Normal [facility] Comment on above: Performed By: #### 2 44588 #### [facility],[address] [place], [place] [address] CT BRAIN WO IVCONon 12-22-19 CT BRAIN WO IVCON * * *Final Report* * * DATE OF EXAM: Dec 22 2023 5:59AM [facility] 0504 - CT BRAIN WO IVCON / [...] mild cord indentations. Incidental prominent lingual tonsils. Plate Cutter (topogram) images: Non-diagnostic. IMPRESSION: Brain CT shows [...] be communicated with the ordering provider via [employer] staff message or phone message by [employer] within 2 business days of report finalization. --END OF FINDING-- Kineseologist: MIRIAN Transcribe Date/Time: Dec 22 2023 5:59A Dictated by : TAYA ERAZO MD This examination was interpreted and the report reviewed and electronically signed by: TAYA ERAZO MD on Dec 22 2023 6:13AM EST [id number] [id number] Invalid Interpretation Code [facility] CT CERVICAL SPINE WO IVCONon 12-22-2023 CT CERVICAL SPINE WO IVCON * * *Final Report* * * DATE OF EXAM: Dec 22 2023 5:59AM [facility] 0505 - CT CERVICAL SPINE WO IVCON [...] mild cord indentations. Incidental prominent lingual tonsils. Plate Cutter (topogram) images: Non-diagnostic. IMPRESSION: Brain CT shows [...] be communicated with the ordering provider via [employer] staff message or phone message by [employer] within 2 business days of report finalization. --END OF FINDING-- Kineseologist: MIRIAN Transcribe Date/Time: Dec 22 2023 5:59A Dictated by : TAYA ERAZO MD This examination was interpreted and the report reviewed and electronically signed by: TAYA ERAZO MD on Dec 22 2023 6:13AM EST [id number] ACTIONABLE Invalid Interpretation Code [facility] ED NOTEon 12-22-2023 ED NOTE HNO ID: [id number] Author: RAHEL SIMS RN Service: ? Author Type: Registered Nurse Type: ED Notes Filed: 12/22/2023 05:57 Note Text: Josemanuel ROBLERO in pt room at this time Normal [facility] ED NOTE HNO ID: [id number] Author: RAHEL SIMS RN Service: ? Author Type: Registered [...] leaking valves. Denies LOC, Blood Thinners, Nausea/Vomiting. Normal [facility] ED PROV NOTEon 12-22-2023 ED PROV NOTE HNO ID: [id number] Author: ANGÉLICA AKBAR MD Service: ? Author [...] did not pass out but he saw stars. He continues to have headache. He is [...] 61.2 kg (135 lb) 1.727 m (5' 8) Physical Exam HENT: Head: Comments: Abrasion to [...] 2. No evidence of LEFT rib fracture. Kineseologist: [facility] Transcribe Date/Time: Dec 22 2023 6:21A Dictated [...] elsewhere, which (more content not included)... Normal [facility] XR RIB/CHST 3V AP RIB/OBL/CH ST [...] 2. No evidence of LEFT rib fracture. Kineseologist: [facility] Transcribe Date/Time: Dec 22 2023 6:21A Dictated by : KRYSTAL ALLEN MD This examination was interpreted and the report reviewed and electronically signed by: KRYSTAL ALLEN MD on Dec 22 2023 6:23AM EST [id number] [facility] Absolute lymphocyte countOrd ered By: Frank Cole on 11-26-2023 Lymphocytes Auto (Unsp spec) [#/Vol] 2.94 10*3/uL 0.83-4.51 [facility] Automated lymphocyte count a s percentage of total leukocytesOrdered By: Frank Cole on 11-26-2023 Lymphocytes/100 WBC Auto (Unsp spec) 37.8 % 19-41 [facility] Basophil percentageOrdered B y: Frank Cole on 11-26-2023 Basophils/100 WBC (Bld) 0.5 % 0-1 [facility] Chloride [Moles/Vol] 108 mmol/L 98-107 [facility] Eosinophils/100 WBC (Bld) 3.3 % 0-5 [facility] Glucose [Mass/Vol] 94 mg/dL 74-106 [facility] Hemoglobin (Bld) [Mass/Vol] 14.7 g/dL 13.0-16.5 [facility] Monocytes/100 WBC (Bld) 11.7 % 0-10 [facility] Neutrophils (Bld) [#/Vol] 3.6 10*3/uL 2.0-7.7 [facility] Neutrophils/100 WBC (Bld) 46.4 % 47-70 [facility] Potassium [Moles/Vol] 4.1 mmol/L 3.5-5.1 [facility] Sodium [Moles/Vol] 140 mmol/L 136-145 [facility] WBC (Bld) [#/Vol] 7.8 10*3/uL 4.4-11.0 [facility] Determination of erythrocyte mean corpuscular volume (MCV)Ordered By: Frank Cole on 11-26-2023 MCV (RBC) [Entitic vol] 95.0 fL 80-94 [facility] Erythrocyte distribution wid th ratioOrdered By: Frank Cole on 11-26-2023 Erythrocyte distribution width (RBC) [Ratio] 14.0 % 11.6-14.6 [facility] Erythrocyte distribution wid th standard deviationOrdered By: Frank Cole on 11-26-2023 Erythrocyte distribution width (RBC) [Entitic vol] 48.4 fL 35.1-43.9 [facility] Hematocrit Auto (Bld) [Volum e fraction]Ordered By: Frank Cole on 11-26-2023 Hematocrit (Bld) [Volume fraction] 44.1 % 40-54 [facility] Immature granulocytes/100 WB C Auto (Bld)Ordered By: Frank Cole on 11-26-2023 Immature granulocytes/100 WBC (Bld) 0.300 % 0.0-0.9 [facility] Comment on above: IG% - Immature Granu locytes (promyelocytes, myelocytes and metamyelocytes) > 1% indicates that a LEFT SHIFT is Present. Laboratory - Chemistry and C hemistry - challengeOrdered By: Frank Cole on 11-26-2023 CO2 [Moles/Vol] 28.0 mmol/L 21.0-32.0 [facility] Urea nitrogen/Creatinine [Mass ratio] 8.4 mg/mg 10-20 [facility] Laboratory - Drug toxicology Ordered By: Frank Cole on 11-26-2023 Amphetamines Ql (U) Positive <1000 ng/mL [facility] Benzodiazepines Ql (U) Negative < 200 ng/mL [facility] Cannabinoids Screen Ql (U) Negative < 50 ng/mL [facility] Cocaine Ql (U) Negative < 300 ng/mL [facility] Opiates Ql (U) Negative < 300 ng/mL [facility] Laboratory - Hematology and Cell countsOrdered By: Frank Cole on 11-26-2023 MCH (RBC) [Entitic mass] 31.7 pg 27.0-32.0 [facility] MCHC (RBC) [Mass/Vol] 33.3 g/dL 32-36 [facility] Nucleated RBC/100 WBC (Bld) [Ratio] 0 % 0-5 [facility] Platelet mean volume (Bld) [Entitic vol] 8.4 fL 6.2-12.0 [facility] Platelets (Bld) [#/Vol] 316 10*3/uL 150-450 [facility] No Panel InformationOrdered By: Frank Cole on 11-26-2023 Estimated GFR (MDRD) Amer 101 mL/min >60 [facility] Comment on above: GFR Calc Estimated GFR (MDRD) Non-Af Amer 84 mL/min >60 [facility] Comment on above: Non- GFR Calc Ethyl Alcohol Level < 3.0 mg/dL [facility] Comment on above: The serum:whole bloo d ethanol ratio is approximately 1.14and varies slightly with hematocrit. Medical Alcohol reference interval and critical value innon-tolerant individuals; 50 - 100 Impairment 100 Intoxication 100 - 250 Severe Poisoning 250 - 400 Deep/possible fatal coma MDMA (Ecstasy) Screen Positive < 500 ng/mL [facility] Urine Barbiturates Screen Negative < 200 ng/mL [facility] Urine Drug Screen Comment [facility] Comment on above: CONFIRMATORY TESTING FOR ALL POSITIVE URINE DRUG SCREENRESULTS WILL ONLY BE SENT OUT UPON PHYSICIAN ORDER. VISTA Urine Drug Screen methods provide only preliminaryanalytical test results. A more specific alternate chemicalmethod must be used in order to obtain a confirmedanalytical result. Gas chromatography/mass spectrometery(GC/MS) is the preferred confirmatory method. Clinicalconsideration and professional judgement should be appliedto any drug of abuse test result, particularly whenpreliminary positive results are used. URINE TCA TESTING MUST BE ORDERED SEPARATELY. USE TESTMNEMONIC: [facility] Urine Methadone Screen Negative < 300 ng/mL [facility] RBC Auto (Bld) [#/Vol]Ordere d By: Frank Cole on 11-26-2023 RBC (Bld) [#/Vol] 4.64 10*6/uL 4.6-6.2 [facility] Serum or plasma calcium jazlyn urement (mass/volume)Ordered By: Frank Cole on 11-26-2023 Calcium [Mass/Vol] 9.7 mg/dL 8.5-10.1 [facility] Serum or plasma creatinine m easurement (mass/volume)Ordered By: Frank Cole on 11-26-2023 Creatinine [Mass/Vol] 1.07 mg/dL 0.70-1.30 [facility] Comment on above: The validity of the calculated GFR & GFRAA in patients over 70 years has not been determined. Clinical correlation is essential. Serum or plasma urea nitroge n measurement (mass/volume)Ordered By: Frank Cole on 11-26-2023 Urea nitrogen [Mass/Vol] 9 mg/dL 7-18 [facility] Thin prep Papanicolaou smear with manual screeningOrdered By: Frank Cole on 11-26-2023 Thin prep Papanicolaou smear with manual screening 4 5-15 [facility] Urine phencyclidine (PCP) de tectionOrdered By: Frank Cole on 11-26-2023 Phencyclidine Ql (U) Negative < 25 ng/mL [facility] Activated partial thrombopla stin time (aPTT) in platelet poor plasma by coagulation aOrdered By: Tommy Swanson on 11-13-2023 aPTT Coag (PPP) [Time] 28.7 s 25.1-36.5 [facility] Comment on above: A hematocrit value g reater than 55% may lead to inaccurate results in coagulation testing. Patients having hematocrit values >55% require a special collection tube for coagulation studies. Please contact the laboratory at [phone] for redraw instructions. Alanine aminotransferase [En zymatic activity/volume] in Serum or PlasmaOrdered By: Tommy Swanson on 11-13-2023 ALT [Catalytic activity/Vol] 15 U/L 7-52 [facility] Albumin [Mass/volume] in Ser um or Plasma by Bromocresol green (BCG) dye binding methoOrdered By: Tommy Swanson on 11-13-2023 Albumin BCG dye [Mass/Vol] 4.0 g/dL 3.5-5.7 [facility] Alkaline phosphatase [Enzyma tic activity/volume] in Serum or PlasmaOrdered By: Tommy Swanson on 11-13-2023 ALP [Catalytic activity/Vol] 60 U/L 34-104 [facility] Aspartate aminotransferase [ Enzymatic activity/volume] in Serum or PlasmaOrdered By: Tommy Swanson on 11-13-2023 AST [Catalytic activity/Vol] 14 U/L 13-39 [facility] Automated erythrocytes count in urine sediment (number/area)Ordered By: Tommy Swanson on 11-13-2023 RBC Auto (Urine sed) [#/Area] 0-1 [HPF] 0-4 [facility] Automated leukocytes count i n urine sediment (number/area)Ordered By: Tommy Swanson on 11-13-2023 WBC Auto (Urine sed) [#/Area] 3-4 [HPF] 0-4 [facility] B-Type Natriuretic Peptideon 11-13-2023 Natriuretic peptide B (Bld) [Mass/Vol] 18.0 pg/mL Normal 5-100 [facility] Comment on above: Result Comment: PERF ORMED BY: [place] [address] PATHOLOGIST SUPERINTENDENT METERS NASIR TOBAR M.D. Performed By: #### B CHILDCARE AIDE, HS TROP, PT, PTT, LIPASE, CK, CMP, CBC #### [address] Basophils Auto (Bld) [#/Vol] Ordered By: Tommy Swanson on 11-13-2023 Basophils (Bld) [#/Vol] 0.1 10*3/uL 0.0-0.2 [facility] Basophils/100 WBC Auto (Bld) Ordered By: Tommy Swanson on 11-13-2023 Basophils/100 WBC (Bld) 1.0 % . [facility] Bilirubin Test strip Ql (U)O rdered By: Tommy Swanson on 11-13-2023 Bilirubin Ql (U) 1+ Negative [facility] Bilirubin.total [Mass/volume ] in Serum or PlasmaOrdered By: Tommy Swanson on 11-13-2023 Bilirubin [Mass/Vol] 0.5 mg/dL 0.3-1.0 [facility] CT abdomen pelvis w conon CT abdomen pelvis w con [facility] [place] [address] [place] [address] CT Scan Report Signed Patient: Faustino Unger MR#: [id number] : 1990 Acct:[id number] Age/Sex: 33 / M ADM Date: 11/13/23 Loc: ER Room: Type: [facility] ER Attending Dr: Copies to: Tommy Swanson DO Ordering Provider: Tommy Swanson DO Date of Service: 11/13/23 CT/CT angio chest PE protocol: ([id number]) CT/CT abdomen pelvis w con: upper abd [...] Teresa Ocampo M.D.11/13/2023 1:02 PM Dictation Location: [place] [address] Transcribed By: [facility] 11/13/23 1302 Dictated By: Teresa Ocampo MD 11/13/23 1252 Signed By: 11/13/23 1302 Normal [facility] Calcium [Mass/volume] in Ser um or PlasmaOrdered By: Tommy Swanson on 11-13-2023 Calcium [Mass/Vol] 9.0 mg/dL 8.6-10.3 [facility] Carbon dioxide, total [Moles /volume] in Serum or PlasmaOrdered By: Tommy Swanson on 11-13-2023 CO2 [Moles/Vol] 26.7 mmol/L 21.0-31.[address] [facility] Chloride [Moles/volume] in S miles or PlasmaOrdered By: Tommy Swanson on 11-13-2023 Chloride [Moles/Vol] 107 mmol/L 98-107 [facility] Color Auto (U)Ordered By: Hank Swasnon on 11-13-2023 Color (U) Dark yellow Yellow [facility] Complete Blood Count Auto Di ffon 11-13-2023 Basophils (Bld) [#/Vol] 0.1 10*3/uL Normal 0.0-0.2 [facility] Comment on above: Result Comment: PERF ORMED BY: [place] [address] PATHOLOGIST SUPERINTENDENT METERS NASIR TOBAR M.D. Performed By: #### B CHILDCARE AIDE, HS TROP, PT, PTT, LIPASE, CK, CMP, CBC #### [address] Basophils/100 WBC (Bld) 1.0 % Normal . [facility] Comment on above: Performed By: #### B CHILDCARE AIDE, HS TROP, PT, PTT, LIPASE, CK, CMP, CBC #### [address] Eosinophils (Bld) [#/Vol] 0.3 10*3/uL Normal 0.0-0.45 [facility] Comment on above: Performed By: #### B CHILDCARE AIDE, HS TROP, PT, PTT, LIPASE, CK, CMP, CBC #### [address] Eosinophils/100 WBC (Bld) 3.8 % Normal . [facility] Comment on above: Performed By: #### B CHILDCARE AIDE, HS TROP, PT, PTT, LIPASE, CK, CMP, CBC #### [address] Erythrocyte distribution width (RBC) [Ratio] 13.5 % Normal 12.0-14.8 [facility] Comment on above: Performed By: #### B CHILDCARE AIDE, HS TROP, PT, PTT, LIPASE, CK, CMP, CBC #### [address] Hematocrit (Bld) [Volume fraction] 41.9 % Normal 38.8-50.0 [facility] Comment on above: Performed By: #### B CHILDCARE AIDE, HS TROP, PT, PTT, LIPASE, CK, CMP, CBC #### [address] Hemoglobin (Bld) [Mass/Vol] 14.3 g/dL Normal 13.0-17.0 [facility] Comment on above: Performed By: #### B CHILDCARE AIDE, HS TROP, PT, PTT, LIPASE, CK, CMP, CBC #### [address] Lymphocytes (Bld) [#/Vol] 1.9 10*3/uL Normal 1.00-4.8 [facility] Comment on above: Performed By: #### B CHILDCARE AIDE, HS TROP, PT, PTT, LIPASE, CK, CMP, CBC #### [address] [place] [address] [place] Lymphocytes/100 WBC (Bld) 25.2 % Normal . [facility] Comment on above: Performed By: #### B CHILDCARE AIDE, HS TROP, PT, PTT, LIPASE, CK, CMP, CBC #### [address] MCH (RBC) [Entitic mass] 32.1 pg Normal 27.5-35.2 [facility] Comment on above: Performed By: #### B CHILDCARE AIDE, HS TROP, PT, PTT, LIPASE, CK, CMP, CBC #### [address] MCV (RBC) [Entitic vol] 94.3 fL Normal 83.5-101 [facility] Comment on above: Performed By: #### B CHILDCARE AIDE, HS TROP, PT, PTT, LIPASE, CK, CMP, CBC #### [address] Mean Corpuscular HGB Conc 34.1 g/dL Normal 32.5-35.6 [facility] Comment on above: Performed By: #### B CHILDCARE AIDE, HS TROP, PT, PTT, LIPASE, CK, CMP, CBC #### [address] Monocytes (Bld) [#/Vol] 1.0 10*3/uL High 0.0-0.8 [facility] Comment on above: Performed By: #### B CHILDCARE AIDE, HS TROP, PT, PTT, LIPASE, CK, CMP, CBC #### [address] Monocytes/100 WBC (Bld) 19.61 % Normal 0.00-20.00 [facility] Comment on above: Performed By: #### B CHILDCARE AIDE, HS TROP, PT, PTT, LIPASE, CK, CMP, CBC #### [address] Monocytes/100 WBC (Bld) 13.8 % Normal . [facility] Comment on above: Performed By: #### B CHILDCARE AIDE, HS TROP, PT, PTT, LIPASE, CK, CMP, CBC #### [address] Neutrophils (Bld) [#/Vol] 4.2 10*3/uL Normal 1.8-7.7 [facility] Comment on above: Performed By: #### B CHILDCARE AIDE, HS TROP, PT, PTT, LIPASE, CK, CMP, CBC #### [address] Neutrophils/100 WBC (Bld) 56.2 % Normal . [facility] Comment on above: Performed By: #### B CHILDCARE AIDE, HS TROP, PT, PTT, LIPASE, CK, CMP, CBC #### [address] NRBC% 0.1 /100{WBC} Normal 0-0.5 [facility] Comment on above: Performed By: #### B CHILDCARE AIDE, HS TROP, PT, PTT, LIPASE, CK, CMP, CBC #### [address] Platelet mean volume (Bld) [Entitic vol] 6.7 fL Normal 6.6-10.1 [facility] Comment on above: Performed By: #### B CHILDCARE AIDE, HS TROP, PT, PTT, LIPASE, CK, CMP, CBC #### [address] Platelets (Bld) [#/Vol] 323 10*3/uL Normal 150-450 [facility] Comment on above: Performed By: #### B CHILDCARE AIDE, HS TROP, PT, PTT, LIPASE, CK, CMP, CBC #### [address] RBC (Bld) [#/Vol] 4.44 10*6/uL Normal 3.90-5.60 [facility] Comment on above: Performed By: #### B CHILDCARE AIDE, HS TROP, PT, PTT, LIPASE, CK, CMP, CBC #### [address] WBC (Bld) [#/Vol] 7.6 10*3/uL Normal 4.1-10.5 [facility] Comment on above: Performed By: #### B CHILDCARE AIDE, HS TROP, PT, PTT, LIPASE, CK, CMP, CBC #### [address] Comprehensive Metabolic Pane jacobo 11-13-2023 Albumin [Mass/Vol] 4.0 g/dL Normal 3.5-5.7 [facility] Comment on above: Performed By: #### B CHILDCARE AIDE, HS TROP, PT, PTT, LIPASE, CK, CMP, CBC #### [address] Albumin/Globulin [Mass ratio] 1.7 {ratio} Normal [facility] Comment on above: Performed By: #### B CHILDCARE AIDE, HS TROP, PT, PTT, LIPASE, CK, CMP, CBC #### [address] ALP [Catalytic activity/Vol] 60 U/L Normal 34-104 [facility] Comment on above: Performed By: #### B CHILDCARE AIDE, HS TROP, PT, PTT, LIPASE, CK, CMP, CBC #### [address] ALT [Catalytic activity/Vol] 15 U/L Normal 7-52 [facility] Comment on above: Performed By: #### B CHILDCARE AIDE, HS TROP, PT, PTT, LIPASE, CK, CMP, CBC #### [address] Anion gap [Moles/Vol] 8.2 mmol/L Normal 6.0-15.0 [facility] Comment on above: Performed By: #### B CHILDCARE AIDE, HS TROP, PT, PTT, LIPASE, CK, CMP, CBC #### [address] AST [Catalytic activity/Vol] 14 U/L Normal 13-39 [facility] Comment on above: Performed By: #### B CHILDCARE AIDE, HS TROP, PT, PTT, LIPASE, CK, CMP, CBC #### [address] Bilirubin [Mass/Vol] 0.5 mg/dL Normal 0.3-1.0 [facility] Comment on above: Performed By: #### B CHILDCARE AIDE, HS TROP, PT, PTT, LIPASE, CK, CMP, CBC #### [address] Calcium [Mass/Vol] 9.0 mg/dL Normal 8.6-10.3 [facility] Comment on above: Performed By: #### B CHILDCARE AIDE, HS TROP, PT, PTT, LIPASE, CK, CMP, CBC #### [address] Chloride [Moles/Vol] 107 mmol/L Normal 98-107 [facility] Comment on above: Performed By: #### B CHILDCARE AIDE, HS TROP, PT, PTT, LIPASE, CK, CMP, CBC #### [address] CO2 [Moles/Vol] 26.7 mmol/L Normal 21.0-31.0 [facility] Comment on above: Performed By: #### B CHILDCARE AIDE, HS TROP, PT, PTT, LIPASE, CK, CMP, CBC #### [address] Creatinine [Mass/Vol] 1.03 mg/dL Normal 0.70-1.30 [facility] Comment on above: Performed By: #### B CHILDCARE AIDE, HS TROP, PT, PTT, LIPASE, CK, CMP, CBC #### [address] Creatinine Clr Calc Pharmacy 94.15 Normal [facility] Comment on above: Performed By: #### B CHILDCARE AIDE, HS TROP, PT, PTT, LIPASE, CK, CMP, CBC #### [address] GFR/1.73 sq M.predicted MDRD (S/P/Bld) [Vol rate/Area] mL/min/{1.73_m2} Normal [facility] Comment on above: Performed By: #### B CHILDCARE AIDE, HS TROP, PT, PTT, LIPASE, CK, CMP, CBC #### [address] [place] [address] [place] Globulin (S) [Mass/Vol] 2.3 g/dL Normal [facility] Comment on above: Performed By: #### B CHILDCARE AIDE, HS TROP, PT, PTT, LIPASE, CK, CMP, CBC #### [address] Glucose [Mass/Vol] 80 mg/dL Normal 70-100 [facility] Comment on above: Result Comment: [facility] Glucose Reference Range is dependent on time and content of last meal. Glucose of more than 200 mg/dL in a nonstressed, ambulatory subject supports the diagnosis of Diabetes Mellitus. ADA recommended reference range Performed By: #### B CHILDCARE AIDE, HS TROP, PT, PTT, LIPASE, CK, CMP, CBC #### [address] Potassium [Moles/Vol] 3.9 mmol/L Normal 3.5-5.1 [facility] Comment on above: Performed By: #### B CHILDCARE AIDE, HS TROP, PT, PTT, LIPASE, CK, CMP, CBC #### [address] Protein [Mass/Vol] 6.3 g/dL Low 6.4-8.9 [facility] Comment on above: Performed By: #### B CHILDCARE AIDE, HS TROP, PT, PTT, LIPASE, CK, CMP, CBC #### [address] Sodium [Moles/Vol] 138 mmol/L Normal 136-145 [facility] Comment on above: Performed By: #### B CHILDCARE AIDE, HS TROP, PT, PTT, LIPASE, CK, CMP, CBC #### [address] Urea nitrogen [Mass/Vol] 10 mg/dL Normal 7-25 [facility] Comment on above: Performed By: #### B CHILDCARE AIDE, HS TROP, PT, PTT, LIPASE, CK, CMP, CBC #### [address] Creatine Kinaseon 11-13-2023 CK [Catalytic activity/Vol] 57 U/L Normal 30-223 [facility] Comment on above: Performed By: #### B CHILDCARE AIDE, HS TROP, PT, PTT, LIPASE, CK, CMP, CBC #### [facility] [address] [address] [place] Creatine kinase [Enzymatic a ctivity/volume] in Serum or PlasmaOrdered By: Tommy Swanson on 11-13-2023 CK [Catalytic activity/Vol] 57 U/L [facility] Creatinine [Mass/volume] in Serum or PlasmaOrdered By: Tommy Swanson on 11-13-2023 Creatinine [Mass/Vol] 1.03 mg/dL 0.70-1.30 [facility] Dipstick and Microscopicon 0 11-13-2023 Appearance (U) Turbid Critically abnormal Clear [facility] Comment on above: Order Comment: Name Collection Type:: Clean-Voided Midstream Performed By: #### A DDONUAPLUS #### [place] [address] [place] Bacteria,Urine None Seen Normal None Seen [facility] Comment on above: Order Comment: Name Collection Type:: Clean-Voided Midstream Performed By: #### A DDONUAPLUS #### [place] [address] [place] Bilirubin,Urine 1+ High Negative [facility] Comment on above: Order Comment: Name Collection Type:: Clean-Voided Midstream Performed By: #### A DDONUAPLUS #### [place] [address] [place] Color (U) Dark Yellow Critically abnormal Yellow [facility] Comment on above: Order Comment: Name Collection Type:: Clean-Voided Midstream Performed By: #### A DDONUAPLUS #### [facility] [address] [address] [place] Glucose Ql (U) Normal Normal Normal [facility] Comment on above: Order Comment: Name Collection Type:: Clean-Voided Midstream Performed By: #### A DDONUAPLUS #### [place] [id number] [place] Hyaline Casts,Urine 0-8 Normal 0-8 [facility] Comment on above: Order Comment: Name Collection Type:: Clean-Voided Midstream Result Comment: PERF ORMED BY: [place] [address] PATHOLOGIST [employer]PERINTENDENT [employer] NASIR TOBAR M.D. Performed By: #### A DDONUAPLUS #### [place] [address] [place] Ketones Ql (U) Trace High Negative [facility] Comment on above: Order Comment: Name Collection Type:: Clean-Voided Midstream Performed By: #### A DDONUAPLUS #### [place] [address] [place] Leukocyte esterase Test strip Ql (U) 1+ High Negative [facility] Comment on above: Order Comment: Name Collection Type:: Clean-Voided Midstream Performed By: #### A DDONUAPLUS #### [place] [address] [place] Nitrite,Urine Negative Normal Negative [facility] Comment on above: Order Comment: Name Collection Type:: Clean-Voided Midstream Performed By: #### A DDONUAPLUS #### [place] [address] [place] Occult Blood,Urine Negative Normal Negative [facility] Comment on above: Order Comment: Name Collection Type:: Clean-Voided Midstream Result Comment: PERF ORMED BY: [place] [address] PATHOLOGIST SUPERINTEND[employer] NASIR TOBAR M.D. Performed By: #### A DDONUAPLUS #### [place] [address] [place] pH (U) 8.5 [pH] Normal 5.0-9.0 [facility] Comment on above: Order Comment: Name Collection Type:: Clean-Voided Midstream Performed By: #### A DDONUAPLUS #### [place] [id number] [place] Protein,Urine Trace High Negative [facility] Comment on above: Order Comment: Name Collection Type:: Clean-Voided Midstream Performed By: #### A DDONUAPLUS #### [place] [address] [place] RBC LM.HPF (Urine sed) [#/Area] 0 /[HPF] Normal 0-4 [facility] Comment on above: Order Comment: Name Collection Type:: Clean-Voided Midstream Performed By: #### A DDONUAPLUS #### [address] Specificy [place],Urine 1.026 Normal 1.001-1.030 [facility] Comment on above: Order Comment: Name Collection Type:: Clean-Voided Midstream Performed By: #### A DDONUAPLUS #### [address] Squamous Epithelial Cell,Urine 0-1 Normal 0-2 [facility] Comment on above: Order Comment: Name Collection Type:: Clean-Voided Midstream Performed By: #### A DDONUAPLUS #### [address] Urobilinogen,Urine >=2 High Normal [facility] Comment on above: Order Comment: Name Collection Type:: Clean-Voided Midstream Performed By: #### A DDONUAPLUS #### [address] WBC,Urine 3-4 Normal 0-4 [facility] Comment on above: Order Comment: Name Collection Type:: Clean-Voided Midstream Performed By: #### A DDONUAPLUS #### [address] ECG 12 lead ECGon 11-13-2023 ECG 12 lead ECG [facility] [place] [address] [place] [address] Electrocardiograph Report Signed Patient: Faustino Unger MR#: [id number] : 1990 Acct:[id number] Age/Sex: 33 / M ADM Date: 11/13/23 Loc: ER Room: Type: [facility] ER Attending Dr: Ordering Provider: Tommy [...] sinus rhythm Confirmed by Tommy SWANSON DO ([id number]) on 11/13/2023 3:23:03 PM Referred By: Electronically Signed By:Tommy SWANSON DO Transcribed By: MUS Signed By Tommy Swanson DO 0 11/13/23 1523 Normal [facility] Eosinophils Auto (Bld) [#/Vo l]Ordered By: Tommy Swanson on 11-13-2023 Eosinophils (Bld) [#/Vol] 0.3 10*3/uL 0.0-0.45 [facility] Eosinophils/100 WBC Auto (Bl d)Ordered By: Tommy Swanson on 11-13-2023 Eosinophils/100 WBC (Bld) 3.8 % . [facility] Erythrocyte distribution wid th Auto (RBC) [Ratio]Ordered By: Tommy Swanson on 11-13-2023 Erythrocyte distribution width (RBC) [Ratio] 13.5 % 12.0-14.8 [facility] Globulin Calc (S) [Mass/Vol] Ordered By: Tommy Swanson on 11-13-2023 Globulin (S) [Mass/Vol] 2.3 g/dL [facility] Glucose [Mass/volume] in Ser um or PlasmaOrdered By: Tommy Swanson on 11-13-2023 Glucose [Mass/Vol] 80 mg/dL 70-100 [facility] Comment on above: ADA recommended refe rence rangeRandom Glucose Reference Range is dependent on time and content of last meal. Glucose of more than 200 mg/dL in a nonstressed, ambulatory subject supports the diagnosis of Diabetes Mellitus. Hematocrit Auto (Bld) [Volum e fraction]Ordered By: Tommy Swanson on 11-13-2023 Hematocrit (Bld) [Volume fraction] 41.9 % 38.8-50.0 [facility] Hemoglobin [Mass/volume] in BloodOrdered By: Tommy Swanson on 11-13-2023 Hemoglobin (Bld) [Mass/Vol] 14.3 g/dL 13.0-17.0 [facility] INR in Platelet poor plasma by Coagulation assayOrdered By: Tommy Swanson on 11-13-2023 INR Coag (PPP) [Relative time] 1.1 {INR} [facility] Comment on above: INR Therapeutic Rang e [...] on 11-13-2023 Ketones (U) [Mass/Vol] Trace Negative [facility] - UrinalysisOrder ed By: Tommy Swanson on 11-13-2023 Hyaline casts LM Ql (Urine sed) 0-8 [LPF] 0-8 [facility] Leukocytes [#/volume] correc sylvie for nucleated erythrocytes in Blood by Automated counOrdered By: Tommy Swanson on 11-13-2023 WBC corrected for nucl RBC Auto (Bld) [#/Vol] 7.6 10*3/uL 4.1-10.5 [facility] Lipaseon 11-13-2023 Lipase [Catalytic activity/Vol] 49.0 U/L Normal 11.0-82.0 [facility] Comment on above: Result Comment: PERF ORMED BY: [place] [address] PATHOLOGIST [employer] NASIR TOBAR M.D. Performed By: #### B CHILDCARE AIDE, HS TROP, PT, PTT, LIPASE, CK, CMP, CBC #### [address] Lipase [Enzymatic activity/v olume] in Serum or PlasmaOrdered By: Tommy Swanson on 11-13-2023 Lipase [Catalytic activity/Vol] 49.0 U/L 11.0-82.0 [facility] Lymphocytes Auto (Bld) [#/Vo l]Ordered By: Tommy Swanson on 11-13-2023 Lymphocytes (Bld) [#/Vol] 1.9 10*3/uL 1.00-4.8 [facility] Lymphocytes/100 WBC Auto (Bl d)Ordered By: Tommy Swanson on 11-13-2023 Lymphocytes/100 WBC (Bld) 25.2 % . [facility] MCH Auto (RBC) [Entitic mass ]Ordered By: Tommy Swanson on 11-13-2023 MCH (RBC) [Entitic mass] 32.1 pg 27.5-35.2 [facility] MCHC Auto (RBC) [Mass/Vol]Or dered By: Tommy Swanson on 11-13-2023 MCHC (RBC) [Mass/Vol] 34.1 g/dL 32.5-35.6 [facility] MCV Auto (RBC) [Entitic vol] Ordered By: Tommy Swanson on 11-13-2023 MCV (RBC) [Entitic vol] 94.3 fL 83.5-101 [facility] Monocyte distribution width [Entitic volume] in Blood by AutomatedOrdered By: Tommy Swanson on 11-13-2023 Monocyte distribution width Auto (Bld) [Entitic vol] 19.61 % 0.00-20.00 [facility] Monocytes Auto (Bld) [#/Vol] Ordered By: Tommy Swanson on 11-13-2023 Monocytes (Bld) [#/Vol] 1.0 10*3/uL 0.0-0.8 [facility] Monocytes/100 WBC Auto (Bld) Ordered By: Tommy Swanson on 11-13-2023 Monocytes/100 WBC (Bld) 13.8 % . [facility] Natriuretic peptide B [Mass/ Vol]Ordered By: Tommy Swanson on 11-13-2023 Natriuretic peptide B (Bld) [Mass/Vol] 18.0 pg/mL 5-100 [facility] Neutrophils Auto (Bld) [#/Vo l]Ordered By: Tommy Swanson on 11-13-2023 Neutrophils (Bld) [#/Vol] 4.2 10*3/uL 1.8-7.7 [facility] Neutrophils/100 WBC Auto (Bl d)Ordered By: Tommy Swanson on 11-13-2023 Neutrophils/100 WBC (Bld) 56.2 % . [facility] Nitrite Test strip Ql (U)Ord ered By: Tommy Swanson on 11-13-2023 Nitrite Ql (U) Negative Negative [facility] No Panel InformationOrdered By: Tommy Swanson on 11-13-2023 Estimated GFR (CKD-EPI) > 60.0 mL/Min [facility] Creatinine Clearance (Chem 94.15 [facility] Nucleated erythrocytes [Pres ence] in Blood by Automated countOrdered By: Tommy Swanson on 11-13-2023 Nucleated RBC Auto Ql (Bld) 0.1 /100{WBC} 0-0.5 [facility] Partial Thromboplastin Timeo n 11-13-2023 aPTT Coag (Bld) [Time] 28.7 s Normal 25.1-36.5 Th e [facility] Comment on above: Result Comment: A he matocrit value greater than 55% may lead to inaccurate results in coagulation testing. Patients having hematocrit values >55% require a special collection tube for coagulation studies. Please contact the laboratory at [phone] for redraw instructions. PERFORMED BY: [place] [address] PATHOLOGIST [employer] NASIR TOBAR M.D. Performed By: #### B CHILDCARE AIDE, HS TROP, PT, PTT, LIPASE, CK, CMP, CBC #### [address] Platelet mean volume Auto (B ld) [Entitic vol]Ordered By: Tommy Swanson on 11-13-2023 Platelet mean volume (Bld) [Entitic vol] 6.7 fL 6.6-10.1 [facility] Platelets Auto (Bld) [#/Vol] Ordered By: Tommy Swanson on 11-13-2023 Platelets (Bld) [#/Vol] 323 10*3/uL 150-450 [facility] Potassium [Moles/volume] in Serum or PlasmaOrdered By: Tommy Swanson on 11-13-2023 Potassium [Moles/Vol] 3.9 mmol/L 3.5-5.1 [facility] Protein Auto test strip (U) [Mass/Vol]Ordered By: Tommy Swanson on 11-13-2023 Protein (U) [Mass/Vol] Trace mg/dL Negative [facility] Protein [Mass/volume] in Ser um or PlasmaOrdered By: Tommy Swanson on 11-13-2023 Protein [Mass/Vol] 6.3 g/dL 6.4-8.9 [facility] Prothrombin Time INRon 11-12 INR Coag (PPP) [Relative time] 1.1 {INR} Normal [facility] Comment on above: Result Comment: [...] 3 - 4.5 Performed By: #### B CHILDCARE AIDE, HS TROP, PT, PTT, LIPASE, CK, CMP, CBC #### [facility] [address] [address] [facility] PT Coag (PPP) [Time] 12.6 s Normal 9.0-12.9 [facility] Comment on above: Result Comment: A he matocrit value greater than 55% may lead to inaccurate results in coagulation testing. Patients having hematocrit values >55% require a special collection tube for coagulation studies. Please contact the laboratory at [phone] for redraw instructions. Performed By: #### B CHILDCARE AIDE, HS TROP, PT, PTT, LIPASE, CK, CMP, CBC #### [facility] [address] [address] [facility] Prothrombin time (PT)Ordered By: Tommy Swanson on 11-13-2023 PT Coag (PPP) [Time] 12.6 s 9.0-12.9 [facility] Comment on above: A hematocrit value g reater than 55% may lead to inaccurate results in coagulation testing. Patients having hematocrit values >55% require a special collection tube for coagulation studies. Please contact the laboratory at [phone] for redraw instructions. RBC Auto (Bld) [#/Vol]Ordere d By: Tommy Swanson on 11-13-2023 RBC (Bld) [#/Vol] 4.44 10*6/uL 3.90-5.60 [facility] Serum or plasma albumin/glob ulin mass ratioOrdered By: Tommy Swanson on 11-13-2023 Albumin/Globulin [Mass ratio] 1.7 {ratio} [facility] Serum or plasma anion gap de terminationOrdered By: Tommy Swanson on 11-13-2023 Anion gap [Moles/Vol] 8.2 mmol/L 6.0-15.0 [facility] Sodium [Moles/volume] in Ser um or PlasmaOrdered By: Tommy Swanson on 11-13-2023 Sodium [Moles/Vol] 138 mmol/L 136-145 [facility] Specific gravity Auto test s trip (U) [Rel density]Ordered By: Tommy Swanson on 11-13-2023 Specific gravity (U) [Rel density] 1.026 1.001-1.030 [facility] Squamous epithelial cells de tection in urine sediment by light microscopyOrdered By: Tommy Swasnon on 11-13-2023 Epithelial cells.squamous LM Ql (Urine sed) 0-1 [HPF] 0-2 [facility] Troponin I High Sensitivityo n 11-13-2023 Troponin I High Sensitivity 3.2 pg/mL Normal 0.0-20.0 [facility] Comment on above: Result Comment: PERF ORMED BY: [place] [address] PATHOLOGIST [employer] NASIR TOBAR M.D. Performed By: #### B CHILDCARE AIDE, HS TROP, PT, PTT, LIPASE, CK, CMP, CBC #### [address] Troponin I.cardiac [Mass/vol ume] in Serum or Plasma by Detection limit <= 0.01 ng/Ordered By: Tommy Swanson on 11-13-2023 Troponin I.cardiac DL <= 0.01 ng/mL [Mass/Vol] 3.2 pg/mL 0.0-20.0 [facility] Urea nitrogen [Mass/volume] in Serum or PlasmaOrdered By: Tommy Swanson on 11-13-2023 Urea nitrogen [Mass/Vol] 10 mg/dL 02-11 [facility] Urine bacteria detection by automated methodOrdered By: Tommy Swanson on 11-13-2023 Bacteria Auto Ql (U) None seen None Seen [facility] Urine clarity by refractomet ry automatedOrdered By: Tommy Swanson on 11-13-2023 Clarity Refractometry automated (U) Turbid Clear [facility] Urine glucose measurement by automated test strip (mass/volume)Ordered By: Tommy Swanson on 11-13-2023 Glucose Auto test strip (U) [Mass/Vol] Normal mg/dL Normal [facility] Urine hemoglobin detection b y automated test stripOrdered By: Tommy Swanson on 11-13-2023 Hemoglobin Auto test strip Ql (U) Negative Negative [facility] Urine leukocyte esterase det ection by automated test stripOrdered By: Tommy Swanson on 11-13-2023 Leukocyte esterase Auto test strip Ql (U) 1+ Negative [facility] Urobilinogen Auto test strip (U) [Mass/Vol]Ordered By: Tommy Swanson on 11-13-2023 Urobilinogen (U) [Mass/Vol] mg/dL Normal [facility] WBC Auto (Bld) [#/Vol]Ordere d By: Tommy Swanson on 11-13-2023 WBC (Bld) [#/Vol] 7.6 10*3/uL 4.1-10.5 [facility] pH Auto test strip (U)Ordere d By: Tommy Swanson on 11-13-2023 pH (U) 8.5 [pH] 5.0-9.0 [facility] Absolute immature granulocyt e countOrdered By: Pankaj Rao on 08-28-2023 Immature granulocytes (Bld) [#/Vol] 0 10*3/uL 0.0-0.1 [facility] Comment on above: Performed at: [address] [id number] Director: Raimundo Corbin PhD, Phone: [phone] Absolute lymphocyte countOrd ered By: Pankaj Rao on 08-28-2023 Lymphocytes Auto (Unsp spec) [#/Vol] 2.2 10*3/uL 0.7-3.1 [facility] Basophil percentageOrdered B y: Pankaj Rao on 08-28-2023 Monocytes (Bld) [#/Vol] 0.9 10*3/uL 0.1-0.9 [facility] Neutrophils (Bld) [#/Vol] 2.2 10*3/uL 1.4-7.0 [facility] Neutrophils/100 WBC (Bld) 39 % Not Estab. [facility] WBC (Bld) [#/Vol] 5.7 10*3/uL 3.4-10.8 [facility] Basophils/100 WBC Auto (Bld) Ordered By: Pankaj Rao on 08-28-2023 Basophils/100 WBC (Bld) 1 % Not Estab. [facility] Blood basophils count (numbe r/volume)Ordered By: Pankaj Rao on 08-28-2023 Basophils (Bld) [#/Vol] 0.1 10*3/uL 0.0-0.2 [facility] Blood eosinophils count (num minerva/volume)Ordered By: Pankaj Rao on 08-28-2023 Eosinophils (Bld) [#/Vol] 0.3 10*3/uL 0.0-0.4 [facility] Blood hematocrit (volume fra ction)Ordered By: Pankaj Rao on 08-28-2023 Hematocrit (Bld) [Volume fraction] 42.1 % 37.5-51.0 [facility] Blood hemoglobin measurement (mass/volume)Ordered By: Pankaj Rao on 08-28-2023 Hemoglobin (Bld) [Mass/Vol] 14.2 g/dL 13.0-17.7 [facility] Blood immature cells/100 julia kocytesOrdered By: Pankaj Rao on 08-28-2023 Immature cells/100 WBC (Bld) TNP [facility] Comment on above: Test not performed Blood immature granulocytes/ 100 leukocytesOrdered By: Pankaj Rao on 08-28-2023 Immature granulocytes/100 WBC (Bld) 0 % Not Estab. [facility] CD3+CD8+ (T8 suppressor cell s) cells/100 cells (Bld)Ordered By: Pankaj Rao on 08-28-2023 CD3+CD8+ (T8 suppressor cells) cells (Bld) [#/Vol] 803 /uL 109-897 [facility] Count of whole blood cells p ositive for CD3 and CD4 antigens (number/volume)Ordered By: Pankaj Rao on 08-28-2023 CD3+CD4+ (T4 helper) cells (Bld) [#/Vol] 770 /uL [phone] [facility] Determination of erythrocyte mean corpuscular volume (MCV)Ordered By: Pankaj Rao on 08-28-2023 MCV (RBC) [Entitic vol] 95 fL 79-97 [facility] Eosinophils/100 WBC Auto (Bl d)Ordered By: Pankaj Rao on 08-28-2023 Eosinophils/100 WBC (Bld) 4 % Not Estab. [facility] Erythrocyte distribution wid th ratioOrdered By: Pankaj Rao on 08-28-2023 Erythrocyte distribution width (RBC) [Ratio] 13.1 % 11.6-15.4 [facility] Interpretation of morphologi c examination of blood (narrative result)Ordered By: Pankaj Rao on 08-28-2023 Morphology Lit (Bld) [Interp] TNP [facility] Comment on above: Test not performed Lymphocytes/100 WBC Auto (Bl d)Ordered By: Pankaj Rao on 08-28-2023 Lymphocytes/100 WBC (Bld) 40 % Not Estab. [facility] MCHC Auto (RBC) [Mass/Vol]Or dered By: Pankaj Rao on 08-28-2023 MCHC (RBC) [Mass/Vol] 33.7 g/dL 31.5-35.7 [facility] No Panel InformationOrdered By: Simin Moseley on 08-28-2023 Hepatitis B Surface Antigen Non-Reactive Nonreactive [facility] Hepatitis C Antibody Non-Reactive Nonreactive [facility] Comment on above: Non Reactive: < 0.8 Equivocal: >/= 0.8 to < 1.0 Reactive: >/= 1.0The CDC recommends that a reactive/equivocal HCV antibody result be followed up by the HCV Nucleic Acid Amplificationtest ([id number]) Hepatitis A IgM Antibody Negative Negative [facility] Hepatitis B Core IgM Antibody Negative Negative [facility] Hepatitis C Antibody (EIA) Non-Reactive Non Reactive [facility] Hepatitis C Antibody Comment Comment . [facility] Comment on above: Not infected with HC V unless early or acute infection issuspected (which may be delayed in an immunocompromisedindividual), or other evidence exists to indicate HCVinfection.Performed at: - [facility] [id number] Director: Raimundo Corbin PhD, Phone: [phone] No Panel InformationOrdered By: Pankaj Rao on 08-28-2023 HIV-1 RNA Ultraquantitative (PCR) < 20 copies/mL . [facility] Comment on above: HIV-1 RNA not detect edThe reportable range for this assay is 20 to 10,000,000copies HIV-1 RNA/mL. Troponin I High Sensitivity 5 pg/mL 3.0-78.0 [facility] Comment on above: Please Note: New Ana t Units and Gender Specific Reference Ranges. For more information see Policy Stat Procedure [place] High Sensitivity Troponin (TNIH) and attachments. Percentage of whole blood ce lls positive for CD3 and CD4 antigensOrdered By: Pankaj Rao on 08-28-2023 CD3+CD4+ (T4 helper) cells/100 cells (Bld) 35.0 % 30.8-58.5 [facility] Percentage of whole blood ce lls positive for CD3 and CD8 antigensOrdered By: Pankaj Rao on 08-28-2023 CD3+CD8+ (T8 suppressor cells) cells/100 cells (Bld) 36.5 % 12.0-35.5 [facility] Plasma HIV 1 RNA viral load by probe and target amplification method (log number/voluOrdered By: Pankaj Rao on 08-28-2023 HIV 1 RNA JOSE+probe [Log #/Vol] TNP [facility] Comment on above: Test not performedRe sult Units: [id number]/mLUnable to calculate result since non-numeric resultobtained for component test.Performed at: - [facility] [id number] Director: Weston Rodrigez MD, Phone: [phone] Platelets bldOrdered By: Preethi Rao on 08-28-2023 Platelets (Bld) [#/Vol] 276 10*3/uL 150-450 [facility] RBC Auto (Bld) [#/Vol]Ordere d By: Pankaj Rao on 08-28-2023 RBC (Bld) [#/Vol] 4.43 10*6/uL 4.14-5.80 [facility] Ratio of whole blood cells p ositive for CD3 and CD4 antigens to cells positive for CDOrdered By: Pankaj Rao on 08-28-2023 CD3+CD4+ (T4 helper) cells/CD3+CD8+ (T8 suppressor cells) cells (Bld) [# ratio] 0.96 % 0.92-3.72 [facility] Serum Treponema species anti body detectionOrdered By: Simin Moseley on 08-28-2023 Treponema sp Ab Ql (S) Non-Reactive [facility] Serum hepatitis B virus surf hanna antibody IgG detectionOrdered By: Simin Moseley on 08-28-2023 HBV surface IgG Ql (S) Non-Reactive [facility] Comment on above: Non Reactive: Incons istent with immunity less than <10 mIU/mL Reactive: Consistent with immunity greater than or equal to 10 mIU/mL Serum or plasma thyroid stim ulating hormone (TSH) measurement (units/volume)Ordered By: Pankaj Rao on 08-28-2023 TSH Qn 1.59 uIU/mL 0.358-3.74 [facility] Thin prep Papanicolaou smear with manual screeningOrdered By: Pankaj Rao on 08-28-2023 Thin prep Papanicolaou smear with manual screening 32.1 pg 26.6-33.0 [facility] Thin prep Papanicolaou smear with manual screening 16 % Not Estab. [facility] Thin prep Papanicolaou smear with manual screeningOrdered By: Simin Moseley on 08-28-2023 Thin prep Papanicolaou smear with manual screening Negative Negative [facility] Comment on above: Lyme antibodies not detected. Reflex testing is notindicated.No laboratory evidence of infection with B. burgdorferi(Lyme disease). Negative results may occur in patientsrecently infected (less than or equal to 14 days) with B.burgdorferi. If recent infection is suspected, repeattesting on a new sample collected in 7 to 14 days isrecommended.Performed at: [facility] - [facility] [id number] [place], [place] [id number] Director: Raimundo Corbin PhD, Phone: [phone] Absolute lymphocyte countOrd ered By: Pal Wilson on 08-27-2023 Lymphocytes Auto (Unsp spec) [#/Vol] 2.10 10*3/uL 0.83-4.51 [facility] Automated lymphocyte count a s percentage of total leukocytesOrdered By: Pal Wilson on 08-27-2023 Lymphocytes/100 WBC Auto (Unsp spec) 29.0 % 19-41 [facility] Basophil percentageOrdered B y: Pankaj Rao on 08-27-2023 Basophil percentage 3.8 mg/dL 2.5-4.9 [facility] Basophil percentageOrdered B y: Pal Wilson on 08-27-2023 Basophils/100 WBC (Bld) 0.8 % 0-1 [facility] Bilirubin [Mass/Vol] 0.60 mg/dL 0.20-1.00 [facility] Comment on above: For patients on eltr ombopag therapy, use of Dimension [place] TBIL is not recommended. Chloride [Moles/Vol] 110 mmol/L 98-107 [facility] Eosinophils/100 WBC (Bld) 2.6 % 0-5 [facility] Glucose [Mass/Vol] 88 mg/dL 74-106 [facility] Hemoglobin (Bld) [Mass/Vol] 14.7 g/dL 13.0-16.5 [facility] Monocytes/100 WBC (Bld) 11.4 % 0-10 [facility] Neutrophils (Bld) [#/Vol] 4.1 10*3/uL 2.0-7.7 [facility] Neutrophils/100 WBC (Bld) 55.9 % 47-70 [facility] Potassium [Moles/Vol] 3.7 mmol/L 3.5-5.1 [facility] Protein [Mass/Vol] 6.9 g/dL 6.4-8.2 [facility] Sodium [Moles/Vol] 141 mmol/L 136-145 [facility] WBC (Bld) [#/Vol] 7.3 10*3/uL 4.4-11.0 [facility] Determination of erythrocyte mean corpuscular volume (MCV)Ordered By: Pal Wilson on 08-27-2023 MCV (RBC) [Entitic vol] 92.9 fL 80-94 [facility] Erythrocyte distribution wid th ratioOrdered By: Pal Wilson on 08-27-2023 Erythrocyte distribution width (RBC) [Ratio] 13.2 % 11.6-14.6 [facility] Erythrocyte distribution wid th standard deviationOrdered By: Pal Wilson on 08-27-2023 Erythrocyte distribution width (RBC) [Entitic vol] 45.1 fL 35.1-43.9 [facility] Hematocrit Auto (Bld) [Volum e fraction]Ordered By: Pal Wilson on 08-27-2023 Hematocrit (Bld) [Volume fraction] 43.2 % 40-54 [facility] Immature granulocytes/100 WB C Auto (Bld)Ordered By: Pal Wilson on 08-27-2023 Immature granulocytes/100 WBC (Bld) 0.300 % 0.0-0.9 [facility] Comment on above: IG% - Immature Granu locytes (promyelocytes, myelocytes and metamyelocytes) > 1% indicates that a LEFT SHIFT is Present. Laboratory - Chemistry and C hemistry - challengeOrdered By: Pankaj Rao on 08-27-2023 Magnesium [Mass/Vol] 2.2 mg/dL 1.6-2.6 [facility] Laboratory - Chemistry and C hemistry - challengeOrdered By: Pal Wilson on 08-27-2023 Albumin/Globulin [Mass ratio] 1.3 {ratio} 0.9-2.4 [facility] ALP [Catalytic activity/Vol] 93 U/L 45-117 [facility] ALT [Catalytic activity/Vol] 26 U/L 16-61 [facility] CO2 [Moles/Vol] 28.0 mmol/L 21.0-32.0 [facility] Globulin (S) [Mass/Vol] 3.0 g/dL 2.2-4.2 [facility] Urea nitrogen/Creatinine [Mass ratio] 13.8 mg/mg 10-20 [facility] Laboratory - Drug toxicology Ordered By: Pal Wilson on 08-27-2023 Amphetamines Ql (U) Positive <1000 ng/mL [facility] Benzodiazepines Ql (U) Negative < 200 ng/mL [facility] Cannabinoids Screen Ql (U) Negative < 50 ng/mL [facility] Cocaine Ql (U) Positive < 300 ng/mL [facility] Opiates Ql (U) Negative < 300 ng/mL [facility] Laboratory - Hematology and Cell countsOrdered By: Pal Wilson on 08-27-2023 MCH (RBC) [Entitic mass] 31.6 pg 27.0-32.0 [facility] MCHC (RBC) [Mass/Vol] 34.0 g/dL 32-36 [facility] Nucleated RBC/100 WBC (Bld) [Ratio] 0 % 0-5 [facility] Platelet mean volume (Bld) [Entitic vol] 8.4 fL 6.2-12.0 [facility] Platelets (Bld) [#/Vol] 243 10*3/uL 150-450 [facility] No Panel InformationOrdered By: Pal Wilson on 08-27-2023 MDMA (Ecstasy) Screen Negative < 500 ng/mL [facility] Urine Barbiturates Screen Negative < 200 ng/mL [facility] Urine Drug Screen Comment [facility] Comment on above: CONFIRMATORY TESTING FOR ALL POSITIVE URINE DRUG SCREENRESULTS WILL ONLY BE SENT OUT UPON PHYSICIAN ORDER. VISTA Urine Drug Screen methods provide only preliminaryanalytical test results. A more specific alternate chemicalmethod must be used in order to obtain a confirmedanalytical result. Gas chromatography/mass spectrometery(GC/MS) is the preferred confirmatory method. Clinicalconsideration and professional judgement should be appliedto any drug of abuse test result, particularly whenpreliminary positive results are used. URINE TCA TESTING MUST BE ORDERED SEPARATELY. USE TESTMNEMONIC: [facility] Urine Methadone Screen Negative < 300 ng/mL [facility] Estimated Creatinine Clearance Calc 109.96 ml/min [facility] Estimated GFR (MDRD) Amer 129 mL/min >60 [facility] Comment on above: GFR Calc Estimated GFR (MDRD) Non-Af Amer 107 mL/min >60 [facility] Comment on above: Non- GFR Calc Ethyl Alcohol Level 3.0 mg/dL [facility] Comment on above: The serum:whole bloo d ethanol ratio is approximately 1.14and varies slightly with hematocrit. Medical Alcohol reference interval and critical value innon-tolerant individuals; 50 - 100 Impairment 100 Intoxication 100 - 250 Severe Poisoning 250 - 400 Deep/possible fatal coma Troponin I High Sensitivity 4 pg/mL 3.0-78.0 [facility] Comment on above: Please Note: New Ana t Units and Gender Specific Reference Ranges. For more information see Policy Stat Procedure [place] High Sensitivity Troponin (TNIH) and attachments. RBC Auto (Bld) [#/Vol]Ordere d By: Pal Wilson on 08-27-2023 RBC (Bld) [#/Vol] 4.65 10*6/uL 4.6-6.2 [facility] Serum or plasma calcium jazlyn urement (mass/volume)Ordered By: Pal Wilson on 08-27-2023 Calcium [Mass/Vol] 9.6 mg/dL 8.5-10.1 [facility] Serum or plasma creatinine m easurement (mass/volume)Ordered By: Pal Wilson on 08-27-2023 Creatinine [Mass/Vol] 0.87 mg/dL 0.70-1.30 [facility] Comment on above: The validity of the calculated GFR & GFRAA in patients over 70 years has not been determined. Clinical correlation is essential. Serum or plasma urea nitroge n measurement (mass/volume)Ordered By: Pal Wilson on 08-27-2023 Urea nitrogen [Mass/Vol] 12 mg/dL 7-18 [facility] Thin prep Papanicolaou smear with manual screeningOrdered By: Pal Wilson on 08-27-2023 Thin prep Papanicolaou smear with manual screening 3.9 g/dL 3.2-5.0 [facility] Thin prep Papanicolaou smear with manual screening 17 U/L 15-37 [facility] Thin prep Papanicolaou smear with manual screening 3 5-15 [facility] Urine phencyclidine (PCP) de tectionOrdered By: Pal Wilson on 08-27-2023 Phencyclidine Ql (U) Negative < 25 ng/mL [facility] Absolute immature granulocyt e countOrdered By: Humberto Downs on 06-18-2023 Immature granulocytes (Bld) [#/Vol] 0 10*3/uL 0.0-0.1 [facility] Absolute lymphocyte countOrd ered By: Humberto Downs on 06-18-2023 Lymphocytes Auto (Unsp spec) [#/Vol] 2.28 10*3/uL 0.83-4.51 [facility] Lymphocytes Auto (Unsp spec) [#/Vol] 2.4 10*3/uL 0.7-3.1 [facility] Basophil percentageOrdered B y: Humberto Downs on 06-18-2023 Basophils/100 WBC (Bld) 1.3 % 0-1 [facility] Bilirubin [Mass/Vol] 0.30 mg/dL 0.20-1.00 [facility] Comment on above: For patients on eltr ombopag therapy, use of Dimension [place] TBIL is not recommended. Chloride [Moles/Vol] 104 mmol/L 98-107 [facility] Eosinophils/100 WBC (Bld) 3.3 % 0-5 [facility] Glucose [Mass/Vol] 87 mg/dL 74-106 [facility] Monocytes (Bld) [#/Vol] 0.6 10*3/uL 0.1-0.9 [facility] Neutrophils (Bld) [#/Vol] 3.1 10*3/uL 2.0-7.7 [facility] Neutrophils (Bld) [#/Vol] 3.0 10*3/uL 1.4-7.0 [facility] Neutrophils/100 WBC (Bld) 48.6 % 47-70 [facility] Neutrophils/100 WBC (Bld) 49 % Not Estab. [facility] Potassium [Moles/Vol] 4.3 mmol/L 3.5-5.1 [facility] Protein [Mass/Vol] 7.3 g/dL 6.4-8.2 [facility] Sodium [Moles/Vol] 139 mmol/L 136-145 [facility] WBC (Bld) [#/Vol] 6.3 10*3/uL 3.4-10.8 [facility] Basophils/100 WBC Auto (Bld) Ordered By: Humberto Downs on 06-18-2023 Basophils/100 WBC (Bld) 1 % Not Estab. [facility] Blood basophils count (numbe r/volume)Ordered By: Humberto Downs on 06-18-2023 Basophils (Bld) [#/Vol] 0.1 10*3/uL 0.0-0.2 [facility] Blood eosinophils count (num minerva/volume)Ordered By: Humberto Downs on 06-18-2023 Eosinophils (Bld) [#/Vol] 0.2 10*3/uL 0.0-0.4 [facility] Blood hematocrit (volume fra ction)Ordered By: Humberto Downs on 06-18-2023 Hematocrit (Bld) [Volume fraction] 46.4 % 37.5-51.0 [facility] Blood hemoglobin measurement (mass/volume)Ordered By: Humberto Downs on 06-18-2023 Hemoglobin (Bld) [Mass/Vol] 15.4 g/dL 13.0-17.7 [facility] Blood immature cells/100 julia kocytesOrdered By: Humberto Downs on 06-18-2023 Immature cells/100 WBC (Bld) TNP [facility] Comment on above: Test not performed Blood immature granulocytes/ 100 leukocytesOrdered By: Humberto Downs on 06-18-2023 Immature granulocytes/100 WBC (Bld) 0 % Not Estab. [facility] Blood lymphocytes/100 leukoc ytesOrdered By: Humberto Downs on 06-18-2023 Lymphocytes/100 WBC (Bld) 35.7 % 19-41 [facility] Blood monocytes/100 leukocyt esOrdered By: Humberto Downs on 06-18-2023 Monocytes/100 WBC (Bld) 10.8 % 0-10 [facility] Blood platelet adequacy dete ction by light microscopyOrdered By: Humberto Downs on 06-18-2023 Platelets LM Ql (Bld) ADEQUATE ADEQ [facility] Blood platelet mean volumeOr dered By: Humberto Downs on 06-18-2023 Platelet mean volume (Bld) [Entitic vol] 8.2 fL 6.2-12.0 [facility] Count of whole blood cells p ositive for CD3 and CD4 antigens (number/volume)Ordered By: Humberto Downs on 06-18-2023 CD3+CD4+ (T4 helper) cells (Bld) [#/Vol] 818 /uL [phone] [facility] Determination of erythrocyte mean corpuscular volume (MCV)Ordered By: Humberto Downs on 06-18-2023 MCV (RBC) [Entitic vol] 96 fL 79-97 [facility] Eosinophils/100 WBC Auto (Bl d)Ordered By: Humberto Downs on 06-18-2023 Eosinophils/100 WBC (Bld) 3 % Not Estab. [facility] Erythrocyte distribution wid th ratioOrdered By: Humberto Downs on 06-18-2023 Erythrocyte distribution width (RBC) [Ratio] 12.1 % 11.6-15.4 [facility] Laboratory - Chemistry and C hemistry - challengeOrdered By: Humberto Downs on 06-18-2023 ALP [Catalytic activity/Vol] 98 U/L 45-117 [facility] ALT [Catalytic activity/Vol] 33 U/L 16-61 [facility] CO2 [Moles/Vol] 29.0 mmol/L 21.0-32.0 [facility] Free T4 [Mass/Vol] 0.81 ng/dL 0.76-1.46 [facility] Globulin (S) [Mass/Vol] 3.6 g/dL 2.2-4.2 [facility] Urea nitrogen/Creatinine [Mass ratio] 11.6 mg/mg 10-20 [facility] Laboratory - Hematology and Cell countsOrdered By: Humberto Downs on 06-18-2023 Anisocytosis Ql (Bld) RARE [facility] Erythrocyte distribution width (RBC) [Entitic vol] 45.7 fL 35.1-43.9 [facility] Erythrocyte distribution width (RBC) [Ratio] 12.8 % 11.6-14.6 [facility] Immature granulocytes/100 WBC (Bld) 0.300 % 0.0-0.9 [facility] Comment on above: IG% - Immature Granu locytes (promyelocytes, myelocytes and metamyelocytes) > 1% indicates that a LEFT SHIFT is Present. Nucleated RBC/100 WBC (Bld) [Ratio] 0 % 0-5 [facility] Lymphocytes/100 WBC Auto (Bl d)Ordered By: Humberto Downs on 06-18-2023 Lymphocytes/100 WBC (Bld) 38 % Not Estab. [facility] MCHC Auto (RBC) [Mass/Vol]Or dered By: Humberto Downs on 06-18-2023 MCHC (RBC) [Mass/Vol] 33.2 g/dL 31.5-35.7 [facility] Macrocytes detectionOrdered By: Humberto Downs on 06-18-2023 Macrocytes Ql (Bld) RARE [facility] No Panel InformationOrdered By: Humberto Downs on 06-18-2023 Atypical Lymphocytes 1+ % [facility] Estimated GFR (MDRD) Amer 130 mL/min >60 [facility] Comment on above: GFR Calc Estimated GFR (MDRD) Non-Af Amer 108 mL/min >60 [facility] Comment on above: Non- GFR Calc HIV-1 RNA Ultraquantitative (PCR) 50 copies/mL . [facility] Comment on above: The reportable range for this assay is 20 to 10,000,000copies HIV-1 RNA/mL. Thyroid Stimulating Hormone (TSH) 0.86 uIU/mL 0.358-3.74 [facility] Nucleated RBC/100 WBC Auto ( Bld) [Ratio]Ordered By: Humberto Downs on 06-18-2023 Nucleated RBC/100 WBC (Bld) [Ratio] TNP [facility] Comment on above: Test not performed Percent of cells positive fo r CD4 antigenOrdered By: Humberto Downs on 06-18-2023 CD3+CD4+ (T4 helper) cells/100 cells (Unsp spec) 34.1 % 30.8-58.5 [facility] Plasma HIV 1 RNA viral load by probe and target amplification method (log number/voluOrdered By: Humberto Downs on 06-18-2023 HIV 1 RNA JOSE+probe [Log #/Vol] 1.699 . [facility] Comment on above: Result Units: log10c opy/mLPerformed at: - [facility] [id number] Director: Weston Rodrigez MD, Phone: [phone] Platelets bldOrdered By: Bala Downs on 06-18-2023 Platelets (Bld) [#/Vol] 336 10*3/uL 150-450 [facility] RBC Auto (Bld) [#/Vol]Ordere d By: Humberto Downs on 06-18-2023 RBC (Bld) [#/Vol] 4.86 10*6/uL 4.14-5.80 [facility] RBC morphologyOrdered By: Yomaira Downs on 06-18-2023 RBC morphology finding Nom (Bld) N CHROM NORMAL NORM C&C [facility] Serum Valerie Vanessa virus cap darci IgG antibody assay (units/volume)Ordered By: Humberto Downs on 06-18-2023 EBV capsid IgG Qn (S) 323.0 [arb'U]/mL 0.0-17.9 [facility] Comment on above: Negative <18.0 Equiv ocal 18.0 - 21.9 Positive >21.9 Serum Valerie Vanessa virus cap darci IgM antibody assay (units/volume)Ordered By: Humberto Downs on 06-18-2023 EBV capsid IgM Qn (S) [arb'U]/mL 0.0-35.9 [facility] Comment on above: Negative <36.0 Equiv ocal 36.0 - 43.9 Positive >43.9Performed at: [facility] Director: Raimundo Corbin PhD, Phone: [phone] Serum Treponema species anti body detectionOrdered By: Humberto Downs on 06-18-2023 Treponema sp Ab Ql (S) Non-Reactive [facility] Serum or plasma albumin jazlyn urement (mass/volume)Ordered By: Humberto Downs on 06-18-2023 Albumin [Mass/Vol] 3.7 g/dL 3.2-5.0 [facility] Serum or plasma albumin/glob ulin mass ratioOrdered By: Humberto Downs on 06-18-2023 Albumin/Globulin [Mass ratio] 1.0 {ratio} 0.9-2.4 [facility] Serum or plasma calcium jazlyn urement (mass/volume)Ordered By: Humberto Downs on 06-18-2023 Calcium [Mass/Vol] 8.6 mg/dL 8.5-10.1 [facility] Serum or plasma creatinine m easurement (mass/volume)Ordered By: Humberto Downs on 06-18-2023 Creatinine [Mass/Vol] 0.86 mg/dL 0.70-1.30 [facility] Comment on above: The validity of the calculated GFR & GFRAA in patients over 70 years has not been determined. Clinical correlation is essential. Serum or plasma urea nitroge n measurement (mass/volume)Ordered By: Humberto Downs on 06-18-2023 Urea nitrogen [Mass/Vol] 10 mg/dL 7-18 [facility] Serum or plasma uric acid me asurement (mass/volume)Ordered By: Humberto Downs on 06-18-2023 Urate [Mass/Vol] 4.1 mg/dL 3.5-7.2 [facility] Comment on above: The drugs N-Acetylcy steine and Metamizole may falsely depress this assay. Thin prep Papanicolaou smear with manual screeningOrdered By: Humberto Downs on 06-18-2023 Thin prep Papanicolaou smear with manual screening 17 U/L 15-37 [facility] Thin prep Papanicolaou smear with manual screening 6 5-15 [facility] Thin prep Papanicolaou smear with manual screening 31.7 pg 26.6-33.0 [facility] Thin prep Papanicolaou smear with manual screening 9 % Not Estab. [facility] No Panel Informationon 01-28 [facility] Culture, urineOrdered By: Dr Zoey Downs on 11-29-2022 Bacteria identified Cx Nom (U) Culture exhibits no growth. [facility] Absolute immature granulocyt e countOrdered By: Dr. Downs on 11-27-2022 Immature granulocytes (Bld) [#/Vol] 0 10*3/uL 0.0-0.1 [facility] Absolute lymphocyte countOrd ered By: Dr. Downs on 11-27-2022 Lymphocytes Auto (Unsp spec) [#/Vol] 2.0 10*3/uL 0.7-3.1 [facility] Basophil percentageOrdered B y: Dr. Downs on 11-27-2022 Basophil percentage 0 SEEN /hpf 0-5 [facility] C. trachomatis DNA JOSE+probe Ql (Unsp spec) Negative Negative [facility] Chloride [Moles/Vol] 107 mmol/L 98-107 [facility] Glucose [Mass/Vol] 124 mg/dL 74-106 [facility] Comment on above: Fasting Glucose resu lt from 100 to 125 mg/dL suggests IMPAIRED HOMEOSTASIS per A.D.A. criteria. Monocytes (Bld) [#/Vol] 0.8 10*3/uL 0.1-0.9 [facility] Neutrophils (Bld) [#/Vol] 5.8 10*3/uL 1.4-7.0 [facility] Neutrophils/100 WBC (Bld) 64 % Not Estab. [facility] Potassium [Moles/Vol] 3.5 mmol/L 3.5-5.1 [facility] Sodium [Moles/Vol] 142 mmol/L 136-145 [facility] WBC (Bld) [#/Vol] 8.9 10*3/uL 3.4-10.8 [facility] Basophils/100 WBC Auto (Bld) Ordered By: Dr. Downs on 11-27-2022 Basophils/100 WBC (Bld) 1 % Not Estab. [facility] Bilirubin Test strip Ql (U)O rdered By: Dr. Downs on 11-27-2022 Bilirubin Ql (U) Negative Negative [facility] Blood basophils count (numbe r/volume)Ordered By: Dr. Downs on 11-27-2022 Basophils (Bld) [#/Vol] 0 10*3/uL 0.0-0.2 [facility] Blood eosinophils count (num minerva/volume)Ordered By: Dr. Downs on 11-27-2022 Eosinophils (Bld) [#/Vol] 0.1 10*3/uL 0.0-0.4 [facility] Blood hematocrit (volume fra ction)Ordered By: Dr. Downs on 11-27-2022 Hematocrit (Bld) [Volume fraction] 46.0 % 37.5-51.0 [facility] Blood hemoglobin measurement (mass/volume)Ordered By: Dr. Downs on 11-27-2022 Hemoglobin (Bld) [Mass/Vol] 14.9 g/dL 13.0-17.7 [facility] Blood immature cells/100 julia kocytesOrdered By: Dr. Downs on 11-27-2022 Immature cells/100 WBC (Bld) [facility] Comment on above: Test not performed Blood immature granulocytes/ 100 leukocytesOrdered By: Dr. Downs on 11-27-2022 Immature granulocytes/100 WBC (Bld) 0 % Not Estab. [facility] Blood platelet mean volumeOr dered By: Dr. Downs on 11-27-2022 Platelet mean volume (Bld) [Entitic vol] 8.4 fL 6.2-12.0 [facility] Count of whole blood cells p ositive for CD3 and CD4 antigens (number/volume)Ordered By: Dr. Downs on 11-27-2022 CD3+CD4+ (T4 helper) cells (Bld) [#/Vol] 966 /uL 359-1519 [facility] Determination of erythrocyte mean corpuscular volume (MCV)Ordered By: Dr. Downs on 11-27-2022 MCV (RBC) [Entitic vol] 93 fL 79-97 [facility] Eosinophils/100 WBC Auto (Bl d)Ordered By: Dr. Downs on 11-27-2022 Eosinophils/100 WBC (Bld) 2 % Not Estab. [facility] Erythrocyte distribution wid th ratioOrdered By: Dr. Downs on 11-27-2022 Erythrocyte distribution width (RBC) [Ratio] 13.8 % 11.6-15.4 [facility] Interpretation of morphologi c examination of blood (narrative result)Ordered By: Dr. Downs on 11-27-2022 Morphology Lit (Bld) [Interp] [facility] Comment on above: Test not performed Ketones Test strip Ql (U)Ord ered By: Dr. Downs on 11-27-2022 Ketones Ql (U) Negative Negative [facility] Laboratory - Chemistry and C hemistry - challengeOrdered By: Dr. Downs on 11-27-2022 CO2 [Moles/Vol] 26.0 mmol/L 21.0-32.0 [facility] Urea nitrogen/Creatinine [Mass ratio] 10.0 mg/mg 10-20 [facility] Laboratory - Hematology and Cell countsOrdered By: Dr. Downs on 11-27-2022 Erythrocyte distribution width (RBC) [Entitic vol] 48.6 fL 35.1-43.9 [facility] Erythrocyte distribution width (RBC) [Ratio] 14.1 % 11.6-14.6 [facility] Lymphocytes/100 WBC Auto (Bl d)Ordered By: Dr. Downs on 11-27-2022 Lymphocytes/100 WBC (Bld) 23 % Not Estab. [facility] MCHC Auto (RBC) [Mass/Vol]Or dered By: Dr. Downs on 11-27-2022 MCHC (RBC) [Mass/Vol] 32.4 g/dL 31.5-35.7 [facility] Mucus LM Ql (Urine sed)Order ed By: Dr. Downs on 11-27-2022 Mucus Ql (Urine sed) 0 SEEN /hpf [facility] Neisseria gonorrhoeae detect ion by PCROrdered By: Dr. Downs on 11-27-2022 N. gonorrhoeae DNA JOSE+probe Ql (Cervical mucus) Negative Negative [facility] Nitrite Test strip Ql (U)Ord ered By: Dr. Downs on 11-27-2022 Nitrite Ql (U) Negative Negative [facility] No Panel InformationOrdered By: Dr. Downs on 11-27-2022 Estimated GFR (MDRD) Amer 110 mL/min >60 [facility] Comment on above: GFR Calc Estimated GFR (MDRD) Non-Af Amer 91 mL/min >60 [facility] Comment on above: Non- GFR Calc Hepatitis A Antibody Total Negative Negative [facility] Comment on above: Performed at: [address] [id number] Director: Raimundo Corbin PhD, Phone: [phone] Hepatitis B Surface Antigen Non-Reactive Nonreactive [facility] Hepatitis C Antibody Non-Reactive Nonreactive [facility] Comment on above: Non Reactive: < 0.8 Equivocal: >/= 0.8 to < 1.0 Reactive: >/= 1.0The CDC recommends that a reactive/equivocal HCV antibody result be followed up by the HCV Nucleic Acid Amplificationtest (830495) HIV-1 RNA Ultraquantitative (PCR) < 20 copies/mL . [facility] Comment on above: HIV-1 RNA not detect edThe reportable range for this assay is 20 to 10,000,000copies HIV-1 RNA/mL. Nucleated RBC/100 WBC Auto ( Bld) [Ratio]Ordered By: Dr. Downs on 11-27-2022 Nucleated RBC/100 WBC (Bld) [Ratio] [facility] Comment on above: Test not performed Percent of cells positive fo r CD4 antigenOrdered By: Dr. Downs on 11-27-2022 CD3+CD4+ (T4 helper) cells/100 cells (Unsp spec) 48.3 % 30.8-58.5 [facility] Plasma HIV 1 RNA viral load by probe and target amplification method (log number/voluOrdered By: Dr. Downs on 11-27-2022 HIV 1 RNA JOSE+probe [Log #/Vol] [facility] Comment on above: Test not performedRe sult Units: [id number] to calculate result since non-numeric resultobtained for component test.Performed at: [facility] [id number] Director: Weston Rodrigez MD, Phone: [phone] Platelets bldOrdered By: Dr. Downs on 11-27-2022 Platelets (Bld) [#/Vol] 349 10*3/uL 150-450 [facility] Protein Test strip Ql (U)Ord ered By: Dr. Downs on 11-27-2022 Protein Ql (U) Negative Negative [facility] Qualitative QuantiFERON-TB g old in tube testOrdered By: Dr. Downs on 11-27-2022 M. tuberculosis tuberculin stim IFN-g Ql (Bld) 0.23 IU/mL . [facility] RBC Auto (Bld) [#/Vol]Ordere d By: Dr. Downs on 11-27-2022 RBC (Bld) [#/Vol] 4.94 10*6/uL 4.14-5.80 [facility] Serum hepatitis B virus surf hanna antibody IgG detectionOrdered By: Dr. Downs on 11-27-2022 HBV surface IgG Ql (S) Non-Reactive [facility] Comment on above: Non Reactive: Incons istent with immunity less than <10 mIU/mL Reactive: Consistent with immunity greater than or equal to 10 mIU/mL Serum or plasma calcium jazlyn urement (mass/volume)Ordered By: Dr. Downs on 11-27-2022 Calcium [Mass/Vol] 9.0 mg/dL 8.5-10.1 [facility] Serum or plasma creatinine m easurement (mass/volume)Ordered By: Dr. Downs on 11-27-2022 Creatinine [Mass/Vol] 1.00 mg/dL 0.70-1.30 [facility] Comment on above: The validity of the calculated GFR & GFRAA in patients over 70 years has not been determined. Clinical correlation is essential. Serum or plasma urea nitroge n measurement (mass/volume)Ordered By: Dr. Downs on 11-27-2022 Urea nitrogen [Mass/Vol] 10 mg/dL 7-18 [facility] Squamous epithelial cells de tection in urine sediment by light microscopyOrdered By: Dr. Downs on 11-27-2022 Epithelial cells.squamous LM Ql (Urine sed) 0 SEEN /hpf 0-5 [facility] Thin prep Papanicolaou smear with manual screeningOrdered By: Dr. Downs on 11-27-2022 Thin prep Papanicolaou smear with manual screening 9 5-15 [facility] Thin prep Papanicolaou smear with manual screening Comment . [facility] Comment on above: QuantiFERON-TB Gold Plus is a qualitative indirect test forM tuberculosis infection (including disease) and isintended for use in conjunction with risk assessment,radiography, and other medical and diagnostic evaluations.The QuantiFERON-TB Gold Plus result is determined bysubtracting the Nil value from either TB antigen (Ag)value. The Mitogen tube serves as a control for the test. Thin prep Papanicolaou smear with manual screening 0.20 IU/mL . [facility] Thin prep Papanicolaou smear with manual screening 0.19 IU/mL . [facility] Thin prep Papanicolaou smear with manual screening > 10.00 IU/mL . [facility] Thin prep Papanicolaou smear with manual screening Negative Negative [facility] Comment on above: No response to M tub erculosis antigens detected.Infection with M tuberculosis is unlikely, but high riskindividuals should be considered for additional testing(ATS/IDSA/CDC Clinical Practice Guidelines, 2017). Thereference range is an Antigen minus Nil result of <0.35IU/mL.The specimen received for QuantiFERON testing was incubatedby the ordering institution. Specific procedures outlinedin our Directory of Services and in the package insert forthe QuantiFERON Gold (In Tube) test must be followed toenable for proper stimulation of cells for the productionof interferon gamma. Chemiluminescence immunoassaymethodology Thin prep Papanicolaou smear with manual screening 30.2 pg 26.6-33.0 [facility] Thin prep Papanicolaou smear with manual screening 10 % Not Estab. [facility] Urine blood detectionOrdered By: Dr. Downs on 11-27-2022 RBC Ql (U) Negative Negative [facility] RBC Ql (U) 0 SEEN /hpf 0-5 [facility] Urine clarityOrdered By: Dr. Downs on 11-27-2022 Clarity (U) Clear Clear [facility] Urine color determinationOrd ered By: Dr. Downs on 11-27-2022 Color (U) Yellow Yellow [facility] Urine glucose detectionOrder ed By: Dr. Downs on 11-27-2022 Glucose Ql (U) Normal mg/dl Normal [facility] Urine leukocyte esterase det ection by dipstickOrdered By: Dr. Downs on 11-27-2022 Leukocyte esterase Test strip Ql (U) Negative Negative [facility] Urine pHOrdered By: Dr. Jyothi garvey on 11-27-2022 pH (U) 6.5 [pH] 5.0 - 8.0 [facility] Urine sediment bacteria coun t by microscopy (number/high power field)Ordered By: Dr. Downs on 11-27-2022 Bacteria LM.HPF (Urine sed) [#/Area] 0 /[HPF] None Seen [facility] Urine specific gravity measu rementOrdered By: Dr. Downs on 11-27-2022 Specific gravity (U) [Rel density] 1.015 1.002-1.030 [facility] Urobilinogen Auto test strip Ql (U)Ordered By: Dr. Downs on 11-27-2022 Urobilinogen Ql (U) Normal mg/dl Normal [facility] Absolute lymphocyte countOrd ered By: Dr. Wilson on 11-25-2022 Lymphocytes Auto (Unsp spec) [#/Vol] 2.95 10*3/uL 0.83-4.51 [facility] Basophil percentageOrdered B y: Dr. Wilson on 11-25-2022 Basophils/100 WBC (Bld) 0.7 % 0-1 [facility] Chloride [Moles/Vol] 108 mmol/L 98-107 [facility] Eosinophils/100 WBC (Bld) 3.8 % 0-5 [facility] Glucose [Mass/Vol] 91 mg/dL 74-106 [facility] Neutrophils (Bld) [#/Vol] 4.1 10*3/uL 2.0-7.7 [facility] Neutrophils/100 WBC (Bld) 48.6 % 47-70 [facility] Potassium [Moles/Vol] 3.9 mmol/L 3.5-5.1 [facility] Sodium [Moles/Vol] 141 mmol/L 136-145 [facility] WBC (Bld) [#/Vol] 8.4 10*3/uL 4.4-11.0 [facility] Blood erythrocytes count (nu mber/volume)Ordered By: Dr. Wilson on 11-25-2022 RBC (Bld) [#/Vol] 4.49 10*6/uL 4.6-6.2 [facility] Blood hemoglobin measurement (mass/volume)Ordered By: Dr. Wilson on 11-25-2022 Hemoglobin (Bld) [Mass/Vol] 14.3 g/dL 13.0-16.5 [facility] Blood lymphocytes/100 leukoc ytesOrdered By: Dr. Wilson on 11-25-2022 Lymphocytes/100 WBC (Bld) 35.2 % 19-41 [facility] Blood monocytes/100 leukocyt esOrdered By: Dr. Wilson on 11-25-2022 Monocytes/100 WBC (Bld) 11.6 % 0-10 [facility] Blood platelet mean volumeOr dered By: Dr. Wilson on 11-25-2022 Platelet mean volume (Bld) [Entitic vol] 8.3 fL 6.2-12.0 [facility] Determination of erythrocyte mean corpuscular volume (MCV)Ordered By: Dr. Wilson on 11-25-2022 MCV (RBC) [Entitic vol] 91.1 fL 80-94 [facility] Hematocrit Auto (Bld) [Volum e fraction]Ordered By: Dr. Wilson on 11-25-2022 Hematocrit (Bld) [Volume fraction] 40.9 % 40-54 [facility] Laboratory - Chemistry and C hemistry - challengeOrdered By: Dr. Wilson on 11-25-2022 CO2 [Moles/Vol] 28.0 mmol/L 21.0-32.0 [facility] Urea nitrogen/Creatinine [Mass ratio] 15.0 mg/mg 10-20 [facility] Laboratory - Hematology and Cell countsOrdered By: Dr. Wilson on 11-25-2022 Erythrocyte distribution width (RBC) [Entitic vol] 47.5 fL 35.1-43.9 [facility] Erythrocyte distribution width (RBC) [Ratio] 14.2 % 11.6-14.6 [facility] Immature granulocytes/100 WBC (Bld) 0.100 % 0.0-0.9 [facility] Comment on above: IG% - Immature Granu locytes (promyelocytes, myelocytes and metamyelocytes) > 1% indicates that a LEFT SHIFT is Present. MCH (RBC) [Entitic mass] 31.8 pg 27.0-32.0 [facility] Nucleated RBC/100 WBC (Bld) [Ratio] 0 % 0-5 [facility] MCHC Auto (RBC) [Mass/Vol]Or dered By: Dr. Wilson on 11-25-2022 MCHC (RBC) [Mass/Vol] 35.0 g/dL 32-36 [facility] No Panel InformationOrdered By: Dr. Wilson on 11-25-2022 Estimated Creatinine Clearance Calc 110.60 ml/min [facility] Estimated GFR (MDRD) Amer 142 mL/min >60 [facility] Comment on above: GFR Calc Estimated GFR (MDRD) Non-Af Amer 118 mL/min >60 [facility] Comment on above: Non- GFR Calc Troponin I High Sensitivity 3 pg/mL 3.0-78.0 [facility] Comment on above: Please Note: New Ana t Units and Gender Specific Reference Ranges. For more information see Policy Stat Procedure [place] High Sensitivity Troponin (TNIH) and attachments. Platelets bldOrdered By: Dr. Wilson on 11-25-2022 Platelets (Bld) [#/Vol] 285 10*3/uL 150-450 [facility] Serum or plasma calcium jazlyn urement (mass/volume)Ordered By: Dr. Wilson on 11-25-2022 Calcium [Mass/Vol] 8.9 mg/dL 8.5-10.1 [facility] Serum or plasma creatinine m easurement (mass/volume)Ordered By: Dr. Wilson on 11-25-2022 Creatinine [Mass/Vol] 0.80 mg/dL 0.70-1.30 [facility] Comment on above: The validity of the calculated GFR & GFRAA in patients over 70 years has not been determined. Clinical correlation is essential. Serum or plasma urea nitroge n measurement (mass/volume)Ordered By: Dr. Wilson on 11-25-2022 Urea nitrogen [Mass/Vol] 12 mg/dL 7-18 [facility] Thin prep Papanicolaou smear with manual screeningOrdered By: Dr. Wilson on 11-25-2022 Thin prep Papanicolaou smear with manual screening 5 5-15 [facility] Absolute lymphocyte countOrd ered By: Dr. Dee on 10-16-2022 Lymphocytes Auto (Unsp spec) [#/Vol] 2.69 10*3/uL 0.83-4.51 [facility] Basophil percentageOrdered B y: Dr. Dee on 10-16-2022 Basophils/100 WBC (Bld) 0.7 % 0-1 [facility] Chloride [Moles/Vol] 107 mmol/L 98-107 [facility] Eosinophils/100 WBC (Bld) 2.6 % 0-5 [facility] Glucose [Mass/Vol] 105 mg/dL 74-106 [facility] Comment on above: Fasting Glucose resu lt from 100 to 125 mg/dL suggests IMPAIRED HOMEOSTASIS per A.D.A. criteria. Neutrophils (Bld) [#/Vol] 3.7 10*3/uL 2.0-7.7 [facility] Neutrophils/100 WBC (Bld) 49.4 % 47-70 [facility] Potassium [Moles/Vol] 3.9 mmol/L 3.5-5.1 [facility] Sodium [Moles/Vol] 141 mmol/L 136-145 [facility] WBC (Bld) [#/Vol] 7.5 10*3/uL 4.4-11.0 [facility] Blood erythrocytes count (nu mber/volume)Ordered By: Dr. Dee on 10-16-2022 RBC (Bld) [#/Vol] 4.89 10*6/uL 4.6-6.2 [facility] Blood hemoglobin measurement (mass/volume)Ordered By: Dr. Dee on 10-16-2022 Hemoglobin (Bld) [Mass/Vol] 15.2 g/dL 13.0-16.5 [facility] Blood lymphocytes/100 leukoc ytesOrdered By: Dr. Dee on 10-16-2022 Lymphocytes/100 WBC (Bld) 36.1 % 19-41 [facility] Blood monocytes/100 leukocyt esOrdered By: Dr. Dee on 10-16-2022 Monocytes/100 WBC (Bld) 11.1 % 0-10 [facility] Blood platelet mean volumeOr dered By: Dr. Dee on 10-16-2022 Platelet mean volume (Bld) [Entitic vol] 8.5 fL 6.2-12.0 [facility] Determination of erythrocyte mean corpuscular volume (MCV)Ordered By: Dr. Dee on 10-16-2022 MCV (RBC) [Entitic vol] 92.2 fL 80-94 [facility] Hematocrit Auto (Bld) [Volum e fraction]Ordered By: Dr. Dee on 10-16-2022 Hematocrit (Bld) [Volume fraction] 45.1 % 40-54 [facility] Laboratory - Chemistry and C hemistry - challengeOrdered By: Dr. Dee on 10-16-2022 CO2 [Moles/Vol] 29.0 mmol/L 21.0-32.0 [facility] Urea nitrogen/Creatinine [Mass ratio] 9.6 mg/mg 10-20 [facility] Laboratory - Hematology and Cell countsOrdered By: Dr. Dee on 10-16-2022 Erythrocyte distribution width (RBC) [Entitic vol] 46.9 fL 35.1-43.9 [facility] Erythrocyte distribution width (RBC) [Ratio] 13.8 % 11.6-14.6 [facility] Immature granulocytes/100 WBC (Bld) 0.100 % 0.0-0.9 [facility] Comment on above: IG% - Immature Granu locytes (promyelocytes, myelocytes and metamyelocytes) > 1% indicates that a LEFT SHIFT is Present. MCH (RBC) [Entitic mass] 31.1 pg 27.0-32.0 [facility] Nucleated RBC/100 WBC (Bld) [Ratio] 0 % 0-5 [facility] MCHC Auto (RBC) [Mass/Vol]Or dered By: Dr. Dee on 10-16-2022 MCHC (RBC) [Mass/Vol] 33.7 g/dL 32-36 [facility] No Panel InformationOrdered By: Dr. Dee on 10-16-2022 Estimated Creatinine Clearance Calc 94.79 ml/min [facility] Estimated GFR (MDRD) Amer 118 mL/min >60 [facility] Comment on above: GFR Calc Estimated GFR (MDRD) Non-Af Amer 97 mL/min >60 [facility] Comment on above: Non- GFR Calc Platelets bldOrdered By: Dr. Dee on 10-16-2022 Platelets (Bld) [#/Vol] 310 10*3/uL 150-450 [facility] Serum or plasma calcium jazlyn urement (mass/volume)Ordered By: Dr. Dee on 10-16-2022 Calcium [Mass/Vol] 9.0 mg/dL 8.5-10.1 [facility] Serum or plasma creatinine m easurement (mass/volume)Ordered By: Dr. Dee on 10-16-2022 Creatinine [Mass/Vol] 0.94 mg/dL 0.70-1.30 [facility] Comment on above: The validity of the calculated GFR & GFRAA in patients over 70 years has not been determined. Clinical correlation is essential. Serum or plasma urea nitroge n measurement (mass/volume)Ordered By: Dr. Dee on 10-16-2022 Urea nitrogen [Mass/Vol] 9 mg/dL 7-18 [facility] Thin prep Papanicolaou smear with manual screeningOrdered By: Dr. Dee on 10-16-2022 Thin prep Papanicolaou smear with manual screening 5 5-15 [facility] Culture, urineOrdered By: Dr Zoey Downs on 09-22-2022 Bacteria identified Cx Nom (U) Culture exhibits no growth. [facility] Absolute immature granulocyt e countOrdered By: Dr. Downs on 09-20-2022 Immature granulocytes (Bld) [#/Vol] 0 10*3/uL 0.0-0.1 [facility] Absolute lymphocyte countOrd ered By: Dr. Downs on 09-20-2022 Lymphocytes Auto (Unsp spec) [#/Vol] 1.9 10*3/uL 0.7-3.1 [facility] Basophil percentageOrdered B y: Dr. Downs on 09-20-2022 Basophil percentage 0 SEEN /hpf 0-5 [facility] C. trachomatis DNA JOSE+probe Ql (Unsp spec) Negative Negative [facility] Chloride [Moles/Vol] 104 mmol/L 98-107 [facility] Glucose [Mass/Vol] 90 mg/dL 74-106 [facility] Monocytes (Bld) [#/Vol] 0.6 10*3/uL 0.1-0.9 [facility] Neutrophils (Bld) [#/Vol] 3.1 10*3/uL 1.4-7.0 [facility] Neutrophils/100 WBC (Bld) 54 % Not Estab. [facility] Potassium [Moles/Vol] 4.0 mmol/L 3.5-5.1 [facility] Sodium [Moles/Vol] 140 mmol/L 136-145 [facility] WBC (Bld) [#/Vol] 5.8 10*3/uL 3.4-10.8 [facility] Basophils/100 WBC Auto (Bld) Ordered By: Dr. Downs on 09-20-2022 Basophils/100 WBC (Bld) 1 % Not Estab. [facility] Bilirubin Test strip Ql (U)O rdered By: Dr. Downs on 09-20-2022 Bilirubin Ql (U) Negative Negative [facility] Blood basophils count (numbe r/volume)Ordered By: Dr. Downs on 09-20-2022 Basophils (Bld) [#/Vol] 0.1 10*3/uL 0.0-0.2 [facility] Blood eosinophils count (num minerva/volume)Ordered By: Dr. Downs on 09-20-2022 Eosinophils (Bld) [#/Vol] 0.1 10*3/uL 0.0-0.4 [facility] Blood hematocrit (volume fra ction)Ordered By: Dr. Downs on 09-20-2022 Hematocrit (Bld) [Volume fraction] 48.2 % 37.5-51.0 [facility] Blood hemoglobin measurement (mass/volume)Ordered By: Dr. Downs on 09-20-2022 Hemoglobin (Bld) [Mass/Vol] 15.8 g/dL 13.0-17.7 [facility] Blood immature cells/100 julia kocytesOrdered By: Dr. Downs on 09-20-2022 Immature cells/100 WBC (Bld) TNP [facility] Comment on above: Test not performed Blood immature granulocytes/ 100 leukocytesOrdered By: Dr. Downs on 09-20-2022 Immature granulocytes/100 WBC (Bld) 0 % Not Estab. [facility] Blood platelet mean volumeOr dered By: Dr. Downs on 09-20-2022 Platelet mean volume (Bld) [Entitic vol] 8.4 fL 6.2-12.0 [facility] Count of whole blood cells p ositive for CD3 and CD4 antigens (number/volume)Ordered By: Dr. Downs on 09-20-2022 CD3+CD4+ (T4 helper) cells (Bld) [#/Vol] 562 /uL [phone] [facility] Determination of erythrocyte mean corpuscular volume (MCV)Ordered By: Dr. Downs on 09-20-2022 MCV (RBC) [Entitic vol] 94 fL 79-97 [facility] Eosinophils/100 WBC Auto (Bl d)Ordered By: Dr. Downs on 09-20-2022 Eosinophils/100 WBC (Bld) 1 % Not Estab. [facility] Erythrocyte distribution wid th ratioOrdered By: Dr. Downs on 09-20-2022 Erythrocyte distribution width (RBC) [Ratio] 13.1 % 11.6-15.4 [facility] Interpretation of morphologi c examination of blood (narrative result)Ordered By: Dr. Downs on 09-20-2022 Morphology Lit (Bld) [Interp] TNP [facility] Comment on above: Test not performed Ketones Test strip Ql (U)Ord ered By: Dr. Downs on 09-20-2022 Ketones Ql (U) Negative Negative [facility] Laboratory - Chemistry and C hemistry - challengeOrdered By: Dr. Downs on 09-20-2022 CO2 [Moles/Vol] 30.0 mmol/L 21.0-32.0 [facility] Urea nitrogen/Creatinine [Mass ratio] 12.4 mg/mg 10-20 [facility] Laboratory - Hematology and Cell countsOrdered By: Dr. Downs on 09-20-2022 Erythrocyte distribution width (RBC) [Entitic vol] 46.0 fL 35.1-43.9 [facility] Erythrocyte distribution width (RBC) [Ratio] 13.5 % 11.6-14.6 [facility] Lymphocytes/100 WBC Auto (Bl d)Ordered By: Dr. Downs on 09-20-2022 Lymphocytes/100 WBC (Bld) 34 % Not Estab. [facility] MCHC Auto (RBC) [Mass/Vol]Or dered By: Dr. Downs on 09-20-2022 MCHC (RBC) [Mass/Vol] 32.8 g/dL 31.5-35.7 [facility] Mucus LM Ql (Urine sed)Order ed By: Dr. Downs on 09-20-2022 Mucus Ql (Urine sed) 0 SEEN /hpf [facility] Neisseria gonorrhoeae detect ion by PCROrdered By: Dr. Downs on 09-20-2022 N. gonorrhoeae DNA JOSE+probe Ql (Cervical mucus) Negative Negative [facility] Nitrite Test strip Ql (U)Ord ered By: Dr. Downs on 09-20-2022 Nitrite Ql (U) Negative Negative [facility] No Panel InformationOrdered By: Dr. Downs on 09-20-2022 Estimated GFR (MDRD) Amer 141 mL/min >60 [facility] Comment on above: GFR Calc Estimated GFR (MDRD) Non-Af Amer 116 mL/min >60 [facility] Comment on above: Non- GFR Calc Hepatitis A Antibody Total Negative Negative [facility] Comment on above: Performed at: - [facility] [id number] [place], [place] [id number] Director: Raimundo Corbin PhD, Phone: [phone] Hepatitis B Surface Antigen Non-Reactive Nonreactive [facility] Hepatitis C Antibody Non-Reactive Nonreactive [facility] Comment on above: Non Reactive: < 0.8 Equivocal: >/= 0.8 to < 1.0 Reactive: >/= 1.0The CDC recommends that a reactive/equivocal HCV antibody result be followed up by the HCV Nucleic Acid Amplificationtest (755855) HIV-1 RNA Ultraquantitative (PCR) 70 copies/mL . [facility] Comment on above: The reportable range for this assay is 20 to 10,000,000copies HIV-1 RNA/mL. Miscellaneous Test See comment [facility] Comment on above: TEST RESULT LIMITST- Lymphocyte [place]/Suppressor Absolute CD 3 1294 /uL [id number] Absolute CD 4 [place] 587 /uL [phone] Abs. CD 8 Suppressor 728 /uL 109-897 % CD 3 Pos. Lymph. 68.1 % 57.5-86.2 % CD 4 Pos. Lymph. 30.9 % 30.8-58.5 % CD 8 Pos. Lymph. 38.3 High % 12.0-35.5 CD4/CD8 Ratio 0.81 Low 0.92-3.72 WBC 5.5 x10E3/uL 3.4-10.8 RBC 5.14 x10E6/uL 4.14-5.80 Hemoglobin 16.0 g/dL 13.0-17.7 Hematocrit 47.2 % 37.5-51.0 MCV 92 fL 79-97 MCH 31.1 pg 26.6-33.0 MCHC 33.9 g/dL 31.5-35.7 RDW 13.0 % 11.6-15.4 Platelets 274 x10E3/uL 150-450 Neutrophils 54 % Not Estab. Lymphs 33 % Not Estab. Monocytes 11 % Not Estab. Eos 1 % Not Estab. Basos 1 % Not Estab. Neutrophils (Absolute) 3.0 x10E3/uL 1.4-7.0 Lymphs (Absolute) 1.9 x10E3/uL 0.7-3.1 Monocytes(Absolute) 0.6 x10E3/uL 0.1-0.9 Eos (Absolute) 0.1 x10E3/uL 0.0-0.4 Baso (Absolute) 0.1 x10E3/uL 0.0-0.2 Immature Granulocytes 0 % Not Estab. Immature Grans (Abs) 0.0 x10E3/uL 0.0-0.1 _ TESTING PERFORMED AT [facility]. ORIGINAL REPORT ON FILE IN LAB CONTAINS ADDITIONAL TEST SITE INFORMATION. Trichomonas vaginalis (PCR) Negative Negative [facility] Nucleated RBC/100 WBC Auto ( Bld) [Ratio]Ordered By: Dr. Downs on 09-20-2022 Nucleated RBC/100 WBC (Bld) [Ratio] TNP [facility] Comment on above: Test not performed Percent of cells positive fo r CD4 antigenOrdered By: Dr. Downs on 09-20-2022 CD3+CD4+ (T4 helper) cells/100 cells (Unsp spec) 29.6 % 30.8-58.5 [facility] Plasma HIV 1 RNA viral load by probe and target amplification method (log number/voluOrdered By: Dr. Downs on 09-20-2022 HIV 1 RNA JOSE+probe [Log #/Vol] 1.845 . [facility] Comment on above: Result Units: log10c opy/mLPerformed at: [address] [id number] Director: Weston Rodrigez MD, Phone: [phone] Platelets bldOrdered By: Dr. Downs on 09-20-2022 Platelets (Bld) [#/Vol] 274 10*3/uL 150-450 [facility] Protein Test strip Ql (U)Ord ered By: Dr. Downs on 09-20-2022 Protein Ql (U) Negative Negative [facility] RBC Auto (Bld) [#/Vol]Ordere d By: Dr. Downs on 09-20-2022 RBC (Bld) [#/Vol] 5.13 10*6/uL 4.14-5.80 [facility] Serum hepatitis B virus surf hanna antibody IgG detectionOrdered By: Dr. Downs on 09-20-2022 HBV surface IgG Ql (S) Non-Reactive [facility] Comment on above: Non Reactive: Incons istent with immunity less than <10 mIU/mL Reactive: Consistent with immunity greater than or equal to 10 mIU/mL Serum or plasma calcium jazlyn urement (mass/volume)Ordered By: Dr. Downs on 09-20-2022 Calcium [Mass/Vol] 9.3 mg/dL 8.5-10.1 [facility] Serum or plasma creatinine m easurement (mass/volume)Ordered By: Dr. Downs on 09-20-2022 Creatinine [Mass/Vol] 0.81 mg/dL 0.70-1.30 [facility] Comment on above: The validity of the calculated GFR & GFRAA in patients over 70 years has not been determined. Clinical correlation is essential. Serum or plasma urea nitroge n measurement (mass/volume)Ordered By: Dr. Downs on 09-20-2022 Urea nitrogen [Mass/Vol] 10 mg/dL 7-18 [facility] Squamous epithelial cells de tection in urine sediment by light microscopyOrdered By: Dr. Downs on 09-20-2022 Epithelial cells.squamous LM Ql (Urine sed) 0 SEEN /hpf 0-5 [facility] Thin prep Papanicolaou smear with manual screeningOrdered By: Dr. Downs on 09-20-2022 Thin prep Papanicolaou smear with manual screening 6 5-15 [facility] Thin prep Papanicolaou smear with manual screening 30.8 pg 26.6-33.0 [facility] Thin prep Papanicolaou smear with manual screening 10 % Not Estab. [facility] Urine blood detectionOrdered By: Dr. Downs on 09-20-2022 RBC Ql (U) Negative Negative [facility] RBC Ql (U) 0 SEEN /hpf 0-5 [facility] Urine clarityOrdered By: Dr. Downs on 09-20-2022 Clarity (U) Clear Clear [facility] Urine color determinationOrd ered By: Dr. Downs on 09-20-2022 Color (U) Yellow Yellow [facility] Urine glucose detectionOrder ed By: Dr. Downs on 09-20-2022 Glucose Ql (U) Normal mg/dl Normal [facility] Urine leukocyte esterase det ection by dipstickOrdered By: Dr. Downs on 09-20-2022 Leukocyte esterase Test strip Ql (U) Negative Negative [facility] Urine pHOrdered By: Dr. Jyothi garvey on 09-20-2022 pH (U) 8.0 [pH] 5.0 - 8.0 [facility] Urine sediment bacteria coun t by microscopy (number/high power field)Ordered By: Dr. Downs on 09-20-2022 Bacteria LM.HPF (Urine sed) [#/Area] 0 /[HPF] None Seen [facility] Urine specific gravity measu rementOrdered By: Dr. Downs on 09-20-2022 Specific gravity (U) [Rel density] 1.010 1.002-1.030 [facility] Urobilinogen Auto test strip Ql (U)Ordered By: Dr. Downs on 09-20-2022 Urobilinogen Ql (U) Normal mg/dl Normal [facility] Influenza virus A and B and SARS-CoV-2 (COVID-19) Ag panel - Upper respiratory specimOrdered By: Dr. Riley on 09-03-2022 SARS-CoV-2 (COVID-19) RNA JOSE+probe Ql (Resp) [facility] Laboratory - Drug toxicology Ordered By: Dr. Riley on 09-03-2022 Amphetamines Ql (U) Negative <1000 ng/mL [facility] Benzodiazepines Ql (U) Negative < 200 ng/mL [facility] Cannabinoids Screen Ql (U) Negative < 50 ng/mL [facility] Cocaine Ql (U) Negative < 300 ng/mL [facility] Opiates Ql (U) Negative < 300 ng/mL [facility] No Panel InformationOrdered By: Dr. Riley on 09-03-2022 MDMA (Ecstasy) Screen Negative < 500 ng/mL [facility] Urine Barbiturates Screen Negative < 200 ng/mL [facility] Urine Drug Screen Comment [facility] Comment on above: CONFIRMATORY TESTING FOR ALL POSITIVE URINE DRUG SCREENRESULTS WILL ONLY BE SENT OUT UPON PHYSICIAN ORDER. VISTA Urine Drug Screen methods provide only preliminaryanalytical test results. A more specific alternate chemicalmethod must be used in order to obtain a confirmedanalytical result. Gas chromatography/mass spectrometery(GC/MS) is the preferred confirmatory method. Clinicalconsideration and professional judgement should be appliedto any drug of abuse test result, particularly whenpreliminary positive results are used. URINE TCA TESTING MUST BE ORDERED SEPARATELY. USE TESTMNEMONIC: [facility] Urine Methadone Screen Negative < 300 ng/mL [facility] Urine phencyclidine (PCP) de tectionOrdered By: Dr. Riley on 09-03-2022 Phencyclidine Ql (U) Negative < 25 ng/mL [facility] Absolute lymphocyte countOrd ered By: Dr. Riley on 09-02-2022 Lymphocytes Auto (Unsp spec) [#/Vol] 1.33 10*3/uL 0.83-4.51 [facility] Amorphous sediment detection in urine sediment by light microscopyOrdered By: Dr. Riley on 09-02-2022 Amorphous sediment LM Ql (Urine sed) 2+ [facility] Basophil percentageOrdered B y: Dr. Riley on 09-02-2022 Basophil percentage 0 SEEN /hpf 0-5 [facility] C. trachomatis DNA JOSE+probe Ql (Unsp spec) Negative Negative [facility] Basophils/100 WBC (Bld) 0.6 % 0-1 [facility] Bilirubin [Mass/Vol] 0.30 mg/dL 0.20-1.00 [facility] Comment on above: For patients on eltr ombopag therapy, use of Dimension [place] TBIL is not recommended. Chloride [Moles/Vol] 109 mmol/L 98-107 [facility] Eosinophils/100 WBC (Bld) 0.1 % 0-5 [facility] Glucose [Mass/Vol] 87 mg/dL 74-106 [facility] Neutrophils (Bld) [#/Vol] 4.1 10*3/uL 2.0-7.7 [facility] Neutrophils/100 WBC (Bld) 61.8 % 47-70 [facility] Potassium [Moles/Vol] 3.7 mmol/L 3.5-5.1 [facility] Protein [Mass/Vol] 6.5 g/dL 6.4-8.2 [facility] Sodium [Moles/Vol] 141 mmol/L 136-145 [facility] WBC (Bld) [#/Vol] 6.7 10*3/uL 4.4-11.0 [facility] Bilirubin Test strip Ql (U)O rdered By: Dr. Riley on 09-02-2022 Bilirubin Ql (U) Negative Negative [facility] Blood erythrocytes count (nu mber/volume)Ordered By: Dr. Riley on 09-02-2022 RBC (Bld) [#/Vol] 4.15 10*6/uL 4.6-6.2 [facility] Blood hemoglobin measurement (mass/volume)Ordered By: Dr. Riley on 09-02-2022 Hemoglobin (Bld) [Mass/Vol] 12.7 g/dL 13.0-16.5 [facility] Blood lymphocytes/100 leukoc ytesOrdered By: Dr. Riley on 09-02-2022 Lymphocytes/100 WBC (Bld) 19.9 % 19-41 [facility] Blood monocytes/100 leukocyt esOrdered By: Dr. Riley on 09-02-2022 Monocytes/100 WBC (Bld) 16.9 % 0-10 [facility] Blood platelet mean volumeOr dered By: Dr. Riley on 09-02-2022 Platelet mean volume (Bld) [Entitic vol] 8.9 fL 6.2-12.0 [facility] Determination of erythrocyte mean corpuscular volume (MCV)Ordered By: Dr. Riley on 09-02-2022 MCV (RBC) [Entitic vol] 93.0 fL 80-94 [facility] HIV 1 and HIV-2 antibody ass ay with HIV-1 p24 antigen detectionOrdered By: Dr. Riley on 09-02-2022 HIV 1+2 Ab+HIV1 p24 Ag IA Ql Preliminary Reactive Nonreactive [facility] Comment on above: Critical Result(s) C alled at: 02:42:29 09/03/2022 by: Hoang Mattson TO NICKOLAS MARIO RN (ED) Results read back by same. SEND OUT PRESUMPTIVE REACTIVE SPECIMENS TO [facility] TEST NUMBER [id number] FOR CONFIRMATION. Hematocrit Auto (Bld) [Volum e fraction]Ordered By: Dr. Riley on 09-02-2022 Hematocrit (Bld) [Volume fraction] 38.6 % 40-54 [facility] Ketones Test strip Ql (U)Ord ered By: Dr. Riley on 09-02-2022 Ketones Ql (U) Negative Negative [facility] Laboratory - Chemistry and C hemistry - challengeOrdered By: Dr. Riley on 09-02-2022 ALP [Catalytic activity/Vol] 72 U/L 45-117 [facility] ALT [Catalytic activity/Vol] 23 U/L 16-61 [facility] CK [Catalytic activity/Vol] 104 U/L 39-308 [facility] CO2 [Moles/Vol] 25.0 mmol/L 21.0-32.0 [facility] Globulin (S) [Mass/Vol] 2.8 g/dL 2.2-4.2 [facility] Urea nitrogen/Creatinine [Mass ratio] 13.0 mg/mg 10-20 [facility] Laboratory - Hematology and Cell countsOrdered By: Dr. Riley on 09-02-2022 Erythrocyte distribution width (RBC) [Entitic vol] 45.9 fL 35.1-43.9 [facility] Erythrocyte distribution width (RBC) [Ratio] 13.4 % 11.6-14.6 [facility] Immature granulocytes/100 WBC (Bld) 0.700 % 0.0-0.9 [facility] Comment on above: IG% - Immature Granu locytes (promyelocytes, myelocytes and metamyelocytes) > 1% indicates that a LEFT SHIFT is Present. MCH (RBC) [Entitic mass] 30.6 pg 27.0-32.0 [facility] Nucleated RBC/100 WBC (Bld) [Ratio] 0 % [facility] [Mass/Vol]Or dered By: Dr. Riley on 09-02-2022 MCHC (RBC) [Mass/Vol] 32.9 g/dL 32-36 [facility] Mucus LM Ql (Urine sed)Order ed By: Dr. Riley on 09-02-2022 Mucus Ql (Urine sed) 0 SEEN /hpf [facility] Neisseria gonorrhoeae detect ion by PCROrdered By: Dr. Riley on 09-02-2022 N. gonorrhoeae DNA JOSE+probe Ql (Cervical mucus) Positive Negative [facility] Nitrite Test strip Ql (U)Ord ered By: Dr. Riley on 09-02-2022 Nitrite Ql (U) Negative Negative [facility] No Panel InformationOrdered By: Dr. Riley on 09-02-2022 D-Dimer Quantitative (PE/DVT) < 0.27 FEU/ug/m 0.27-0.49 [facility] Comment on above: NORMAL D-Dimer level (<0.50) indicates no DVT or PE. Estimated Creatinine Clearance Calc 120.98 ml/min [facility] Estimated GFR (MDRD) Amer 168 mL/min >60 [facility] Comment on above: GFR Calc Estimated GFR (MDRD) Non-Af Amer 139 mL/min >60 [facility] Comment on above: Non- GFR Calc Miscellaneous Test See comment [facility] Comment on above: TEST RESULT LIMITSHI V Ab/p24 Ag with Reflex HIV Ab/p24 Ag Screen Preliminary Reactive Non Reactive Please refer to the Final Interpretation. Results reactive by HIV Antigen/Antibody EIA must be confirmed by the HIV testing algorithm to be considered indicative of a true HIV infection. HIV 1/2 Ab Differentiation HIV 1 Ab Reactive Non Reactive HIV 2 Ab Non Reactive Non Reactive Interpretation: HIV-1 Positive Abnormal Laboratory evidence consistent with HIV-1 infection. ____ TESTING PERFORMED AT [facility]. ORIGINAL REPORT ON FILE IN LAB CONTAINS ADDITIONAL TEST SITE INFORMATION. Troponin I High Sensitivity 3 pg/mL 3.0-78.0 [facility] Comment on above: Please Note: New Ana t Units and Gender Specific Reference Ranges. For more information see Policy Stat Procedure [place] High Sensitivity Troponin (TNIH) and attachments. Platelets bldOrdered By: Dr. Riley on 09-02-2022 Platelets (Bld) [#/Vol] 200 10*3/uL 150-450 [facility] Protein Test strip Ql (U)Ord ered By: Dr. Riley on 09-02-2022 Protein Ql (U) Negative Negative [facility] Serum Treponema species anti body detectionOrdered By: Dr. Riley on 09-02-2022 Treponema sp Ab Ql (S) Non-Reactive [facility] Serum or plasma albumin jazlyn urement (mass/volume)Ordered By: Dr. Riley on 09-02-2022 Albumin [Mass/Vol] 3.7 g/dL 3.2-5.0 [facility] Serum or plasma albumin/glob ulin mass ratioOrdered By: Dr. Riley on 09-02-2022 Albumin/Globulin [Mass ratio] 1.3 {ratio} 0.9-2.4 [facility] Serum or plasma calcium jazlyn urement (mass/volume)Ordered By: Dr. Riley on 09-02-2022 Calcium [Mass/Vol] 8.6 mg/dL 8.5-10.1 [facility] Serum or plasma creatinine m easurement (mass/volume)Ordered By: Dr. Riley on 09-02-2022 Creatinine [Mass/Vol] 0.69 mg/dL 0.70-1.30 [facility] Comment on above: The validity of the calculated GFR & GFRAA in patients over 70 years has not been determined. Clinical correlation is essential. Serum or plasma urea nitroge n measurement (mass/volume)Ordered By: Dr. Riley on 09-02-2022 Urea nitrogen [Mass/Vol] 9 mg/dL 7-18 [facility] Squamous epithelial cells de tection in urine sediment by light microscopyOrdered By: Dr. Riley on 09-02-2022 Epithelial cells.squamous LM Ql (Urine sed) 0 SEEN /hpf 0-5 [facility] Thin prep Papanicolaou smear with manual screeningOrdered By: Dr. Riley on 09-02-2022 Thin prep Papanicolaou smear with manual screening 16 U/L 15-37 [facility] Thin prep Papanicolaou smear with manual screening 7 5-15 [facility] Urine blood detectionOrdered By: Dr. Riley on 09-02-2022 RBC Ql (U) Negative Negative [facility] RBC Ql (U) 0 SEEN /hpf 0-5 [facility] Urine clarityOrdered By: Dr. Riley on 09-02-2022 Clarity (U) Sl. Cloudy Clear [facility] Urine color determinationOrd ered By: Dr. Riley on 09-02-2022 Color (U) Yellow Yellow [facility] Urine glucose detectionOrder ed By: Dr. Riley on 09-02-2022 Glucose Ql (U) Normal mg/dl Normal [facility] Urine leukocyte esterase det ection by dipstickOrdered By: Dr. Riley on 09-02-2022 Leukocyte esterase Test strip Ql (U) Negative Negative [facility] Urine pHOrdered By: Dr. Niesha gutierrez on 09-02-2022 pH (U) 8.0 [pH] 5.0 - 8.0 [facility] Urine sediment bacteria coun t by microscopy (number/high power field)Ordered By: Dr. Riley on 09-02-2022 Bacteria LM.HPF (Urine sed) [#/Area] 2 /[HPF] None Seen [facility] Urine specific gravity measu rementOrdered By: Dr. Riley on 09-02-2022 Specific gravity (U) [Rel density] 1.015 1.002-1.030 [facility] Urobilinogen Auto test strip Ql (U)Ordered By: Dr. Riley on 09-02-2022 Urobilinogen Ql (U) Normal mg/dl Normal [facility] MRI FOOT/TOES WO/W IVCON RTo n 08-01-2022 [facility] XR Toes - right 3 Viewson IMPRESSION: Soft tissue calcifications adjacent to the first interphalangeal joint. Kineseologist: PSCB Transcribe Date/Time: Jun 19 2022 2:10P Dictated by : TIMOTHY BECKHAM MD This examination was interpreted and the report reviewed and electronically signed by: TIMOTHY BECKHAM MD on Jun 19 2022 2:11PM EST DIVISION OF RADIOLOGY * * *Final [...] first interphalangeal joint. DIVISION OF RADIOLOGY Provider, [facility] - 06/19/2022 * * *Final Report* [...] calcifications adjacent to the first interphalangeal joint. Kineseologist: PSCB Transcribe Date/Time: Jun 19 2022 2:10P Dictated by : TIMOTHY BECKHAM MD This examination was interpreted and the report reviewed and electronically signed by: TIMOTHY BECKHAM MD on Jun 19 2022 2:11PM EST [facility] Radiology Study observation (narrative) [facility] XR Toes - right 3 ViewsOrder ed By: [facility] Provider on 06-19-2022 [facility] Absolute lymphocyte counton 03-21-2022 Lymphocytes Auto (Unsp spec) [#/Vol] 2.30 10*3/uL 0.83-4.51 [facility] [facility] Work Phone: Basophil percentageon 2021 Basophils/100 WBC (Bld) 0.5 % 0-1 [facility] Work Phone: Chloride [Moles/Vol] 105 mmol/L 98-[address] [facility] Work Phone: Eosinophils/100 WBC (Bld) 3.2 % 0-5 [facility] Work Phone: Glucose [Mass/Vol] 81 mg/dL 74-106 [facility] Work Phone: Neutrophils (Bld) [#/Vol] 3.3 10*3/uL 2.0-7.7 [facility] Work Phone: Neutrophils/100 WBC (Bld) 49.8 % 47-70 [facility] Work Phone: Potassium [Moles/Vol] 3.7 mmol/L 3.5-5.1 [facility]: Sodium [Moles/Vol] 139 mmol/L 136-145 [facility] Work Phone: WBC (Bld) [#/Vol] 6.6 10*3/uL 4.4-11.0 [facility] Work Phone: Blood erythrocytes count (nu mber/volume)on 03-21-2022 RBC (Bld) [#/Vol] 4.90 10*6/uL 4.6-6.2 [facility] [place] Work Phone: Blood hemoglobin measurement (mass/volume)on 03-21-2022 Hemoglobin (Bld) [Mass/Vol] 15.1 g/dL 13.0-16.5 [facility] Work Phone: Blood lymphocytes/100 leukoc yteson 03-21-2022 Lymphocytes/100 WBC (Bld) 34.6 % 19-41 [facility] Work Phone: Blood monocytes/100 leukocyt eson 03-21-2022 Monocytes/100 WBC (Bld) 11.6 % 0-10 [facility] Work Phone: Blood platelet mean volumeon 03-21-2022 Platelet mean volume (Bld) [Entitic vol] 8.3 fL 6.2-12.0 [facility] Work Phone: Determination of erythrocyte mean corpuscular volume (MCV)on 03-21-2022 MCV (RBC) [Entitic vol] 91.2 fL 80-94 [facility] Work Phone: Hematocrit Auto (Bld) [Volum e fraction]on 03-21-2022 Hematocrit (Bld) [Volume fraction] 44.7 % 40-54 [facility] Work Phone: Laboratory - Chemistry and C hemistry - challengeon 03-21-2022 CO2 [Moles/Vol] 28.0 mmol/L 21.0-32.0 [facility] Work Phone: Urea nitrogen/Creatinine [Mass ratio] 8.2 mg/mg 10-20 [facility] Work Phone: Laboratory - Hematology and Cell countson 03-21-2022 Erythrocyte distribution width (RBC) [Entitic vol] 43.7 fL 35.1-43.9 [facility] Work Phone: Erythrocyte distribution width (RBC) [Ratio] 13.1 % 11.6-14.6 [facility] Work Phone: Immature granulocytes/100 WBC (Bld) 0.300 % 0.0-0.9 [facility] Work Phone: Comment on above: IG% - Immature Granu locytes (promyelocytes, myelocytes and metamyelocytes) > 1% indicates that a LEFT SHIFT is Present. MCH (RBC) [Entitic mass] 30.8 pg 27.0-32.0 [facility] Work Phone: Nucleated RBC/100 WBC (Bld) [Ratio] 0 % 0-5 [facility] Work Phone: MCHC Auto (RBC) [Mass/Vol]on 03-21-2022 MCHC (RBC) [Mass/Vol] 33.8 g/dL 32-36 [facility] Work Phone: No Panel Informationon 03-21 Estimated Creatinine Clearance Calc 108.75 ml/min [facility] Work Phone: Estimated GFR (MDRD) Amer 133 mL/min >60 [facility] Work Phone: Comment on above: GFR Calc Estimated GFR (MDRD) Non-Af Amer 110 mL/min >60 [facility] Work Phone: Comment on above: Non- GFR Calc Troponin I High Sensitivity 6 pg/mL 3.0-78.0 [facility] Work Phone: Comment on above: Please Note: New Ana t Units and Gender Specific Reference Ranges. For more information see Policy Stat Procedure [place] High Sensitivity Troponin (TNIH) and attachments. Platelets bldon 03-21-2022 Platelets (Bld) [#/Vol] 262 10*3/uL 150-450 [facility] Work Phone: Serum or plasma calcium jazlyn urement (mass/volume)on 03-21-2022 Calcium [Mass/Vol] 8.9 mg/dL 8.5-10.1 [facility] Work Phone: Serum or plasma creatinine m easurement (mass/volume)on 03-21-2022 Creatinine [Mass/Vol] 0.85 mg/dL 0.70-1.30 [facility] Work Phone: Comment on above: The validity of the calculated GFR & GFRAA in patients over 70 years has not been determined. Clinical correlation is essential. Serum or plasma urea nitroge n measurement (mass/volume)on 03-21-2022 Urea nitrogen [Mass/Vol] 7 mg/dL 7-18 [facility] Work Phone: Thin prep Papanicolaou smear with manual screeningon 03-21-2022 Thin prep Papanicolaou smear with manual screening 6 5-15 [facility] Work Phone: [phone] Absolute lymphocyte counton 01-19-2022 Lymphocytes Auto (Unsp spec) [#/Vol] 2.21 10*3/uL 0.83-4.51 [facility] Work Phone: Basophil percentageon 2021 Basophil percentage 0-5 SEEN /hpf 0-5 [facility] Work Phone: Basophils/100 WBC (Bld) 0.6 % 0-1 [facility] Work Phone: Bilirubin [Mass/Vol] 0.30 mg/dL 0.20-1.00 [facility] Work Phone: Comment on above: For patients on eltr ombopag therapy, use of Dimension [place] TBIL is not recommended. Chloride [Moles/Vol] 108 mmol/L 98-107 [facility] Work Phone: Eosinophils/100 WBC (Bld) 1.3 % 0-5 [facility] Work Phone: Glucose [Mass/Vol] 135 mg/dL 74-106 [facility] Work Phone: [phone] Comment on above: Fasting Glucose resu lt greater than or equal to 126 mg/dL suggests DIABETES MELLITUS per A.D.A. criteria. Neutrophils (Bld) [#/Vol] 7.0 10*3/uL 2.0-7.7 [facility] Work Phone: Neutrophils/100 WBC (Bld) 69.1 % 47-70 [facility] Work Phone: Potassium [Moles/Vol] 3.3 mmol/L 3.5-5.1 [facility] Work Phone: Protein [Mass/Vol] 7.0 g/dL 6.4-8.2 [facility] Work Phone: Sodium [Moles/Vol] 143 mmol/L 136-145 [facility] Work Phone: WBC (Bld) [#/Vol] 10.1 10*3/uL 4.4-11.0 [facility] Work Phone: Bilirubin Test strip Ql (U)o n 01-19-2022 Bilirubin Ql (U) Negative Negative [facility] Work Phone: Blood erythrocytes count (nu mber/volume)on 01-19-2022 RBC (Bld) [#/Vol] 5.02 10*6/uL 4.6-6.2 [facility] Work Phone: Blood hemoglobin measurement (mass/volume)on 01-19-2022 Hemoglobin (Bld) [Mass/Vol] 15.5 g/dL 13.0-16.5 [facility] Work Phone: Blood lymphocytes/100 leukoc yteson 01-19-2022 Lymphocytes/100 WBC (Bld) 21.9 % 19-41 [facility] Work Phone: Blood monocytes/100 leukocyt eson 01-19-2022 Monocytes/100 WBC (Bld) 6.7 % 0-10 [facility] Work Phone: Blood platelet mean volumeon 01-19-2022 Platelet mean volume (Bld) [Entitic vol] 8.8 fL 6.2-12.0 [facility] Work Phone: Determination of erythrocyte mean corpuscular volume (MCV)on 01-19-2022 MCV (RBC) [Entitic vol] 94.0 fL 80-94 [facility] Work Phone: Direct bilirubinon 2 Bilirubin.direct [Mass/Vol] 0.08 mg/dL 0.00-0.30 [facility] Work Phone: Hematocrit Auto (Bld) [Volum e fraction]on 01-19-2022 Hematocrit (Bld) [Volume fraction] 47.2 % 40-54 [facility] Work Phone: Ketones Test strip Ql (U)on 01-19-2022 Ketones Ql (U) 5 mg/dl Negative [facility] Work Phone: Laboratory - Chemistry and C hemistry - challengeon 01-19-2022 ALP [Catalytic activity/Vol] 81 U/L 45-117 [facility] Work Phone: ALT [Catalytic activity/Vol] 23 U/L 16-61 [facility] Work Phone: CO2 [Moles/Vol] 27.0 mmol/L 21.0-32.0 [facility] Work Phone: Globulin (S) [Mass/Vol] 3.2 g/dL 2.2-4.2 [facility] Work Phone: Urea nitrogen/Creatinine [Mass ratio] 7.7 mg/mg 10-20 [facility] Work Phone: Laboratory - Hematology and Cell countson 01-19-2022 Erythrocyte distribution width (RBC) [Entitic vol] 46.2 fL 35.1-43.9 [facility] Work Phone: Erythrocyte distribution width (RBC) [Ratio] 13.4 % 11.6-14.6 [facility] Work Phone: Immature granulocytes/100 WBC (Bld) 0.400 % 0.0-0.9 [facility] Work Phone: Comment on above: IG% - Immature Granu locytes (promyelocytes, myelocytes and metamyelocytes) > 1% indicates that a LEFT SHIFT is Present. MCH (RBC) [Entitic mass] 30.9 pg 27.0-32.0 [facility] Work Phone: Nucleated RBC/100 WBC (Bld) [Ratio] 0 % 0-5 [facility] Work Phone: MCHC Auto (RBC) [Mass/Vol]on 01-19-2022 MCHC (RBC) [Mass/Vol] 32.8 g/dL 32-36 [facility] Work Phone: Mucus LM Ql (Urine sed)on Mucus Ql (Urine sed) 1+ [facility]: Nitrite Test strip Ql (U)on 01-19-2022 Nitrite Ql (U) Negative Negative [facility] Work Phone: No Panel Informationon 01-19 Estimated Creatinine Clearance Calc 90.74 ml/min [facility] Work Phone: Estimated GFR (MDRD) Amer 106 mL/min >60 [facility] Work Phone: Comment on above: GFR Calc Estimated GFR (MDRD) Non-Af Amer 87 mL/min >60 [facility] Work Phone: Comment on above: Non- GFR Calc Troponin I High Sensitivity < 3 pg/mL 3.0-78.0 [facility] Work Phone: Comment on above: Please Note: New Ana t Units and Gender Specific Reference Ranges. For more information see Policy Stat Procedure [place] High Sensitivity Troponin (TNIH) and attachments. Platelets bldon 01-19-2022 Platelets (Bld) [#/Vol] 273 10*3/uL 150-450 [facility] Work Phone: Protein Test strip Ql (U)on 01-19-2022 Protein Ql (U) Negative Negative [facility] Work Phone: Serum or plasma albumin jazlyn urement (mass/volume)on 01-19-2022 Albumin [Mass/Vol] 3.8 g/dL 3.2-5.0 [facility] Work Phone: Serum or plasma calcium jazlyn urement (mass/volume)on 01-19-2022 Calcium [Mass/Vol] 9.2 mg/dL 8.5-10.1 [facility] Work Phone: Serum or plasma creatinine m easurement (mass/volume)on 01-19-2022 Creatinine [Mass/Vol] 1.04 mg/dL 0.70-1.30 [facility] Work Phone: Comment on above: The validity of the calculated GFR & GFRAA in patients over 70 years has not been determined. Clinical correlation is essential. Serum or plasma urea nitroge n measurement (mass/volume)on 01-19-2022 Urea nitrogen [Mass/Vol] 8 mg/dL 7-18 [facility] Work Phone: Squamous epithelial cells de tection in urine sediment by light microscopyon 01-19-2022 Epithelial cells.squamous LM Ql (Urine sed) 0-5 SEEN /hpf 0-5 [facility] Work Phone: Thin prep Papanicolaou smear with manual screeningon 01-19-2022 Thin prep Papanicolaou smear with manual screening 14 U/L 15-37 [facility] Work Phone: Thin prep Papanicolaou smear with manual screening 8 5-15 [facility] Work Phone: Urine blood detectionon RBC Ql (U) Negative Negative [facility] Work Phone: RBC Ql (U) 0-5 SEEN /hpf 0-5 [facility] Work Phone: Urine clarityon 01-19-2022 Clarity (U) Clear Clear [facility] Work Phone: Urine color determinationon 01-19-2022 Color (U) Yellow Yellow [facility] Work Phone: Urine glucose detectionon Glucose Ql (U) Normal mg/dl Normal [facility] Work Phone: Urine leukocyte esterase det ection by dipstickon 01-19-2022 Leukocyte esterase Test strip Ql (U) 25 /ul Negative [facility] Work Phone: Urine pHon 01-19-2022 pH (U) 8.0 [pH] 5.0 - 8.0 [facility] Work Phone: Urine sediment bacteria coun t by microscopy (number/high power field)on 01-19-2022 Bacteria LM.HPF (Urine sed) [#/Area] 1 /[HPF] None Seen [facility] Work Phone: Urine specific gravity measu rementon 01-19-2022 Specific gravity (U) [Rel density] 1.010 1.002-1.030 [facility] Work Phone: Urobilinogen Auto test strip Ql (U)on 01-19-2022 Urobilinogen Ql (U) Normal mg/dl Normal [facility] Work Phone: Absolute lymphocyte counton 01-17-2022 Lymphocytes Auto (Unsp spec) [#/Vol] 2.99 10*3/uL 0.83-4.51 [facility] Work Phone: Basophil percentageon 2021 Basophil percentage 0-5 SEEN /hpf 0-5 [facility] Work Phone: [phone] Basophils/100 WBC (Bld) 0.7 % 0-1 [facility] Work Phone: Chloride [Moles/Vol] 108 mmol/L 98-107 [facility] Work Phone: [phone] Eosinophils/100 WBC (Bld) 1.8 % 0-5 [facility] Work Phone: Glucose [Mass/Vol] 97 mg/dL 74-106 [facility] Work Phone: [phone] Neutrophils (Bld) [#/Vol] 4.6 10*3/uL 2.0-7.7 [facility] Work Phone: [phone] Neutrophils/100 WBC (Bld) 50.7 % 47-70 [facility] Work Phone: [phone] Potassium [Moles/Vol] 3.6 mmol/L 3.5-5.1 [facility] Work Phone: [phone] Sodium [Moles/Vol] 141 mmol/L 136-145 [facility] Work Phone: [phone] WBC (Bld) [#/Vol] 9.1 10*3/uL 4.4-11.0 [facility] Work Phone: Bilirubin Test strip Ql (U)o n 01-17-2022 Bilirubin Ql (U) Negative Negative [facility] Work Phone: Blood erythrocytes count (nu mber/volume)on 01-17-2022 RBC (Bld) [#/Vol] 4.92 10*6/uL 4.6-6.2 [facility] Work Phone: Blood hemoglobin measurement (mass/volume)on 01-17-2022 Hemoglobin (Bld) [Mass/Vol] 15.4 g/dL 13.0-16.5 [facility] Work Phone: Blood lymphocytes/100 leukoc yteson 01-17-2022 Lymphocytes/100 WBC (Bld) 32.9 % 19-41 [facility] Work Phone: Blood monocytes/100 leukocyt eson 01-17-2022 Monocytes/100 WBC (Bld) 13.7 % 0-10 [facility] Work Phone: Blood platelet mean volumeon 01-17-2022 Platelet mean volume (Bld) [Entitic vol] 8.7 fL 6.2-12.0 [facility] Work Phone: Determination of erythrocyte mean corpuscular volume (MCV)on 01-17-2022 MCV (RBC) [Entitic vol] 93.3 fL 80-94 [facility] Work Phone: Hematocrit Auto (Bld) [Volum e fraction]on 01-17-2022 Hematocrit (Bld) [Volume fraction] 45.9 % 40-54 [facility] Work Phone: Ketones Test strip Ql (U)on 01-17-2022 Ketones Ql (U) 15 mg/dl Negative [facility] Work Phone: Laboratory - Chemistry and C hemistry - challengeon 01-17-2022 CO2 [Moles/Vol] 25.0 mmol/L 21.0-32.0 [facility] Work Phone: Urea nitrogen/Creatinine [Mass ratio] 12.1 mg/mg 10-20 [facility] Work Phone: Laboratory - Hematology and Cell countson 01-17-2022 Erythrocyte distribution width (RBC) [Entitic vol] 45.5 fL 35.1-43.9 [facility] Work Phone: Erythrocyte distribution width (RBC) [Ratio] 13.3 % 11.6-14.6 [facility] Work Phone: Immature granulocytes/100 WBC (Bld) 0.200 % 0.0-0.9 [facility] Work Phone: Comment on above: IG% - Immature Granu locytes (promyelocytes, myelocytes and metamyelocytes) > 1% indicates that a LEFT SHIFT is Present. MCH (RBC) [Entitic mass] 31.3 pg 27.0-32.0 [facility] Work Phone: Nucleated RBC/100 WBC (Bld) [Ratio] 0 % 0-5 [facility] Work Phone: MCHC Auto (RBC) [Mass/Vol]on 01-17-2022 MCHC (RBC) [Mass/Vol] 33.6 g/dL 32-36 [facility] Work Phone: Mucus LM Ql (Urine sed)on Mucus Ql (Urine sed) 2+ /hpf [facility] Work Phone: Nitrite Test strip Ql (U)on 01-17-2022 Nitrite Ql (U) Negative Negative [facility] Work Phone: No Panel Informationon 01-17 Estimated Creatinine Clearance Calc 88.20 ml/min [facility] Work Phone: Estimated GFR (MDRD) Amer 102 mL/min >60 [facility] Work Phone: Comment on above: GFR Calc Estimated GFR (MDRD) Non-Af Amer 84 mL/min >60 [facility] Work Phone: Comment on above: Non- GFR Calc Platelets bldon 01-17-2022 Platelets (Bld) [#/Vol] 314 10*3/uL 150-450 [facility] Work Phone: Protein Test strip Ql (U)on 01-17-2022 Protein Ql (U) 15 mg/dl Negative [facility] Work Phone: Serum or plasma calcium jazlyn urement (mass/volume)on 01-17-2022 Calcium [Mass/Vol] 9.7 mg/dL 8.5-10.1 [facility] Work Phone: Serum or plasma creatinine m easurement (mass/volume)on 01-17-2022 Creatinine [Mass/Vol] 1.07 mg/dL 0.70-1.30 [facility] Work Phone: Comment on above: The validity of the calculated GFR & GFRAA in patients over 70 years has not been determined. Clinical correlation is essential. Serum or plasma urea nitroge n measurement (mass/volume)on 01-17-2022 Urea nitrogen [Mass/Vol] 13 mg/dL 7-18 [facility] Work Phone: Squamous epithelial cells de tection in urine sediment by light microscopyon 01-17-2022 Epithelial cells.squamous LM Ql (Urine sed) 0 SEEN /hpf 0-5 [facility] Work Phone: Thin prep Papanicolaou smear with manual screeningon 01-17-2022 Thin prep Papanicolaou smear with manual screening 8 5-15 [facility] Work Phone: Urine blood detectionon 12-21 RBC Ql (U) 150 /ul Negative [facility] Work Phone: RBC Ql (U) 10-25 SEEN /hpf 0-5 [facility] Work Phone: Urine clarityon 01-17-2022 Clarity (U) Clear Clear [facility] Work Phone: Urine color determinationon 01-17-2022 Color (U) Yellow Yellow [facility] Work Phone: Urine glucose detectionon Glucose Ql (U) Normal mg/dl Normal [facility] Work Phone: Urine leukocyte esterase det ection by dipstickon 01-17-2022 Leukocyte esterase Test strip Ql (U) 25 /ul Negative [facility] Work Phone: Urine pHon 01-17-2022 pH (U) 8.0 [pH] 5.0 - 8.0 [facility] Work Phone: Urine sediment bacteria coun t by microscopy (number/high power field)on 01-17-2022 Bacteria LM.HPF (Urine sed) [#/Area] RARE /hpf None Seen [facility] Work Phone: Urine specific gravity measu rementon 01-17-2022 Specific gravity (U) [Rel density] 1.020 1.002-1.030 [facility] Work Phone: Urobilinogen Auto test strip Ql (U)on 01-17-2022 Urobilinogen Ql (U) 4 mg/dl Normal [facility] Work Phone: Vital Signs Date Time Vital Sign Value Performing Clinician Facility 12-09-2024 11:09-0400 Body height 172.[address] Humberto Downs MD Work Phone: [facility] 12-09-2024 11:09-0400 Body mass index (BMI) [Ratio] 25.8 kg/m2 Dr. Humberto Downs MD Work Phone: [facility] 12-09-2024 11:09-0400 Body temperature 98.6 [degF] Dr. Humberto Downs MD Work Phone: [facility] 12-09-2024 11:09-0400 Body weight 77.[address] Humberto Downs MD Work Phone: [facility] 12-09-2024 11:09-0400 Diastolic blood pressure 101 mm[Hg] Dr. Humberto Downs MD Work Phone: [facility] 12-09-2024 11:09-0400 Heart rate 97 /min Dr. Humberto Downs MD Work Phone: [facility] 12-09-2024 11:09-0400 Respiratory rate 16 /min Dr. Humberto Downs MD Work Phone: [facility] 12-09-2024 11:09-0400 SaO2% (BldA) [Mass fraction] 97 % Dr. Humberto Downs MD Work Phone: [facility] 12-09-2024 11:09-0400 Systolic blood pressure 152 mm[Hg] Dr. Humberto Downs MD Work Phone: [facility] 11-24-2024 10:50-0400 Diastolic blood pressure 91 mm[Hg] Deborah Kendall MD Work Phone: [facility] 11-24-2024 10:50-0400 Heart rate 68 /min Deborah Kendall MD Work Phone: [facility] 11-24-2024 10:50-0400 Respiratory rate 16 /min Deborah Kendall MD Work Phone: [facility] 11-24-2024 10:50-0400 SaO2% (BldA) [Mass fraction] 100 % Deborah Kendall MD Work Phone: [facility] 11-24-2024 10:50-0400 Systolic blood pressure 131 mm[Hg] Deborah Kendall MD Work Phone: [facility] 11-24-2024 09:10-0400 Body height 172.7 cm Deborah Kendall MD Work Phone: [facility] 11-24-2024 09:10-0400 Body mass index (BMI) [Ratio] 25.24 kg/m2 Deborah Kendall MD Work Phone: [facility] 11-24-2024 09:10-0400 Body temperature 98.6 [degF] Deborah Kendall MD Work Phone: [facility] 11-24-2024 09:10-0400 Body weight 75.3 kg Deborah Kendall MD Work Phone: [facility] 11-09-2024 11:20-0400 Body mass index (BMI) [Ratio] 25.24 kg/m2 Cathi Parks [employer] Work Phone: [facility] 11-09-2024 11:20-0400 Body weight 75.3 kg Cathi Charly [employer] Work Phone: [facility] 11-09-2024 11:20-0400 Diastolic blood pressure 87 mm[Hg] Cathi Charly [employer] Work Phone: [facility] 11-09-2024 11:20-0400 Heart rate 88 /min Cathi Charly [employer]EL[employer] Work Phone: [facility] 11-09-2024 11:20-0400 Respiratory rate 16 /min Cathi Charly [employer]EL[employer] Work Phone: [facility] 11-09-2024 11:20-0400 SaO2% (BldA) [Mass fraction] 100 % Cathi Charly [employer] DEVEL[employer] Work Phone: [facility] 11-09-2024 11:20-0400 Systolic blood pressure 125 mm[Hg] Cathi Charly [employer] DEVEL[employer] Work Phone: [facility] 10-29-2024 11:44-0400 Body mass index (BMI) [Ratio] 25.97 kg/m2 Tali Caballero MD Work Phone: [facility] 10-29-2024 11:44-0400 Body temperature 97.5 [degF] Tali Caballero MD Work Phone: [facility] 10-29-2024 11:44-0400 Body weight 77.47 kg Tali Caballero MD Work Phone: [facility] 10-29-2024 11:44-0400 Diastolic blood pressure 90 mm[Hg] Tali Caballero MD Work Phone: [facility] 10-29-2024 11:44-0400 Heart rate 90 /min Tali Caballero MD Work Phone: [facility] 10-29-2024 11:44-0400 SaO2% (BldA) [Mass fraction] 99 % Tali Caballero MD Work Phone: [facility] 10-29-2024 11:44-0400 Systolic blood pressure 140 mm[Hg] Tali Caballero MD Work Phone: [facility] 09-13-2024 12:53-0500 Body mass index (BMI) [Ratio] 26.3 kg/m2 Dr. Humberto Downs MD Work Phone: [facility] 09-13-2024 12:53-0500 Body weight 78.[address] Humberto Downs MD Work Phone: [phone] [address] 09-13-2024 12:53-0500 Diastolic blood pressure 88 mm[Hg] Dr. Humberto Downs MD Work Phone: [phone] [address] 09-13-2024 12:53-0500 Heart rate 62 /min Dr. Humberto Downs MD Work Phone: [phone] [address] 09-13-2024 12:53-0500 Respiratory rate 18 /min Dr. Humberto Downs MD Work Phone: [phone] [address] 09-13-2024 12:53-0500 Systolic blood pressure 124 mm[Hg] Dr. Humberto Downs MD Work Phone: 1(652)[phone] [address] 08-11-2024 13:06-0500 Diastolic blood pressure 92 mm[Hg] Dr. Humberto Downs MD Work Phone: 2(899)[phone] [address] 08-11-2024 13:06-0500 Heart rate 67 /min Dr. Humberto Downs MD Work Phone: 5(700)[phone] [address] 08-11-2024 13:06-0500 Systolic blood pressure 124 mm[Hg] Dr. Humberto Downs MD Work Phone: 1(938)[phone] [address] 08-11-2024 09:47-0500 Body height 172.[address] Humberto Downs MD Work Phone: 2(768)[phone] [address] 08-11-2024 09:47-0500 Body mass index (BMI) [Ratio] 25.5 kg/m2 Dr. Humberto Downs MD Work Phone: 5(670)[phone] [address] 08-11-2024 09:47-0500 Body temperature 99.5 [degF] Dr. Humberto Downs MD Work Phone: [facility] 08-11-2024 09:47-0500 Body weight 76.[address] Humberto Downs MD Work Phone: [facility] 08-11-2024 09:47-0500 Respiratory rate 16 /min Dr. Humberto Downs MD Work Phone: [facility] 08-11-2024 09:47-0500 SaO2% (BldA) [Mass fraction] 99 % Dr. Humberto Downs MD Work Phone: [facility] 08-10-2024 11:29-0500 Body height 172.7 cm Tali Caballero MD Work Phone: [facility] 08-10-2024 11:29-0500 Body mass index (BMI) [Ratio] 25.64 kg/m2 Tali Caballero MD Work Phone: [facility] 08-10-2024 11:29-0500 Body weight 76.48 kg Tali Caballero MD Work Phone: [facility] 08-10-2024 11:29-0500 Diastolic blood pressure 82 mm[Hg] Tali Caballero MD Work Phone: [facility] 08-10-2024 11:29-0500 Heart rate 86 /min Tali Caballero MD Work Phone: [facility] 08-10-2024 11:29-0500 Respiratory rate 20 /min Tali Caballero MD Work Phone: [facility] 08-10-2024 11:29-0500 SaO2% (BldA) [Mass fraction] 98 % Tali Caballero MD Work Phone: [facility] 08-10-2024 11:29-0500 Systolic blood pressure 122 mm[Hg] Tali Caballero MD Work Phone: [facility] 07-02-2024 16:30-0500 Diastolic blood pressure 86 mm[Hg] Tyree Finelli DO Work Phone: [facility] 07-02-2024 16:30-0500 Heart rate 64 /min Tyree Finelli DO Work Phone: [facility] 07-02-2024 16:30-0500 Respiratory rate 18 /min Tyree Finelli DO Work Phone: [facility] 07-02-2024 16:30-0500 SaO2% (BldA) [Mass fraction] 100 % Tyree Finelli DO Work Phone: [facility] 07-02-2024 16:30-0500 Systolic blood pressure 122 mm[Hg] Tyree Finelli DO Work Phone: [facility] 07-02-2024 12:36-0500 Body height 172.7 cm Tyree Finelli DO Work Phone: [facility] 07-02-2024 12:36-0500 Body mass index (BMI) [Ratio] 23.26 kg/m2 Tyree Finelli DO Work Phone: [facility] 07-02-2024 12:36-0500 Body temperature 98.2 [degF] Tyree Finelli DO Work Phone: [facility] 07-02-2024 12:36-0500 Body weight 69.4 kg Tyree Finelli DO Work Phone: [facility] 06-07-2024 15:17-0500 Body height 172.7 cm Tali Caballero MD Work Phone: [facility] 06-07-2024 15:17-0500 Body mass index (BMI) [Ratio] 23.26 kg/m2 Tali Caballero MD Work Phone: [facility] 06-07-2024 15:17-0500 Body weight 69.4 kg Tali Caballero MD Work Phone: [facility] 06-07-2024 15:17-0500 Diastolic blood pressure 86 mm[Hg] Tali Caballero MD Work Phone: [facility] 06-07-2024 15:17-0500 Heart rate 80 /min Tali Caballero MD Work Phone: [facility] 06-07-2024 15:17-0500 Respiratory rate 20 /min Tali Caballero MD Work Phone: [facility] 06-07-2024 15:17-0500 SaO2% (BldA) [Mass fraction] 99 % Tali Caballero MD Work Phone: [facility] 06-07-2024 15:17-0500 Systolic blood pressure 138 mm[Hg] Tali Caballero MD Work Phone: [facility] 03-23-2024 11:39-0400 Body height 172.7 cm Cathi Charly SPIKE MACHINE HEATER.SSIS DEVELOPER Work Phone: [facility] 03-23-2024 11:39-0400 Body mass index (BMI) [Ratio] 23.63 kg/m2 Cathi Charly SPIKE MACHINE HEATER.SSIS DEVELOPER Work Phone: [facility] 03-23-2024 11:39-0400 Body temperature 99.1 [degF] Cathi Charly SPIKE MACHINE HEATER.SSIS DEVELOPER Work Phone: [facility] 03-23-2024 11:39-0400 Body weight 70.49 kg Cathi Charly SPIKE MACHINE HEATER.SSIS DEVELOPER Work Phone: [facility] 03-23-2024 11:39-0400 Diastolic blood pressure 84 mm[Hg] Cathi Charly SPIKE MACHINE HEATER.SSIS DEVELOPER Work Phone: [facility] 03-23-2024 11:39-0400 Heart rate 95 /min Cathi Charly SPIKE MACHINE HEATER.SSIS DEVELOPER Work Phone: [facility] 03-23-2024 11:39-0400 SaO2% (BldA) [Mass fraction] 100 % Cathi Charly SPIKE MACHINE HEATER.SSIS DEVELOPER Work Phone: [facility] 03-23-2024 11:39-0400 Systolic blood pressure 130 mm[Hg] Catih Parks SSIS DEVELOPER Work Phone: [facility] 03-15-2024 12:48-0400 Body height 173.4 cm Meaghan Misai DO Work Phone: [facility] 03-15-2024 12:48-0400 Body mass index (BMI) [Ratio] 23.4 kg/m2 Meaghan Masci DO Work Phone: [facility] 03-15-2024 12:48-0400 Body temperature 98.91 [degF] Meaghan Masci DO Work Phone: [facility] 03-15-2024 12:48-0400 Body weight 70.31 kg Meaghan Masci DO Work Phone: [facility] 03-15-2024 12:48-0400 Diastolic blood pressure 89 mm[Hg] Meaghan Masci DO Work Phone: [facility] 03-15-2024 12:48-0400 Heart rate 86 /min Meaghan Masci DO Work Phone: [facility] 03-15-2024 12:48-0400 SaO2% (BldA) [Mass fraction] 99 % Meaghan Masci DO Work Phone: [facility] 03-15-2024 12:48-0400 Systolic blood pressure 149 mm[Hg] Meaghan Masci DO Work Phone: [facility] 11-26-2023 16:02-0400 Heart rate 76 /min No Primary Care Physician [facility] 11-26-2023 16:02-0400 Respiratory rate 14 /min No Primary Care Physician [facility] 11-26-2023 16:02-0400 SaO2% (BldA) [Mass fraction] 100 % No Primary Care Physician [facility] 11-26-2023 15:03-0400 Body height 172.72 cm No Primary Care Physician [facility] 11-26-2023 15:03-0400 Body temperature 96.7 [degF] No Primary Care Physician [facility] 11-26-2023 15:03-0400 Diastolic blood pressure 87 mm[Hg] No Primary Care Physician [facility] 11-26-2023 15:03-0400 Systolic blood pressure 136 mm[Hg] No Primary Care Physician [facility] 11-13-2023 13:30-0400 Diastolic blood pressure 76 mm[Hg] DO Tommy Keister Work Phone: [facility] 11-13-2023 13:30-0400 Heart rate 71 /min DO Tommy Keister Work Phone: [facility] 11-13-2023 13:30-0400 Respiratory rate 18 /min DO Tommy Keister Work Phone: [facility] 11-13-2023 13:30-0400 SaO2% (BldA) [Mass fraction] 99 % DO Tommy Keister Work Phone: [facility] 11-13-2023 13:30-0400 Systolic blood pressure 114 mm[Hg] DO Tommy Keister Work Phone: [facility] 11-13-2023 10:08-0400 Body height 172.72 cm DO Tommy Keister Work Phone: [facility] 11-13-2023 10:08-0400 Body temperature 97.8 [degF] DO Tommy Keister Work Phone: [facility] 11-13-2023 10:08-0400 Body weight 66.5 kg DO Tommy Keister Work Phone: [facility] 08-28-2023 18:53-0500 Diastolic blood pressure 90 mm[Hg] No Primary Care Physician [facility] 08-28-2023 18:53-0500 Heart rate 78 /min No Primary Care Physician [facility] 08-28-2023 18:53-0500 Systolic blood pressure 136 mm[Hg] No Primary Care Physician [facility] 08-28-2023 18:47-0500 Respiratory rate 18 /min No Primary Care Physician [facility] 08-28-2023 18:47-0500 SaO2% (BldA) [Mass fraction] 100 % No Primary Care Physician [facility] 08-28-2023 17:07-0500 Body temperature 98.5 [degF] No Primary Care Physician [facility] 08-27-2023 23:07-0500 Body height 172.72 cm No Primary Care Physician [facility] 08-27-2023 23:07-0500 Body mass index (BMI) [Ratio] 21.9 kg/m2 No Primary Care Physician [facility] 08-27-2023 23:07-0500 Body weight 65.6 kg No Primary Care Physician [facility] 08-27-2023 22:04-0500 Diastolic blood pressure 88 mm[Hg] [facility] 08-27-2023 22:04-0500 Heart rate 98 /min [facility] 08-27-2023 22:04-0500 Respiratory rate 21 /min [facility] 08-27-2023 22:04-0500 SaO2% (BldA) [Mass fraction] 100 % [facility] 08-27-2023 22:04-0500 Systolic blood pressure 134 mm[Hg] [facility] 08-27-2023 16:27-0500 Body height 172.72 cm [facility] 08-27-2023 16:27-0500 Body mass index (BMI) [Ratio] 21.9 kg/m2 [facility] 08-27-2023 16:27-0500 Body temperature 98.4 [degF] [facility] 08-27-2023 16:27-0500 Body weight 65.6 kg [facility] 08-06-2023 15:12-0500 Body height 172.72 cm [facility] 08-06-2023 15:12-0500 Body mass index (BMI) [Ratio] 22.4 kg/m2 [facility] 08-06-2023 15:12-0500 Body temperature 97.4 [degF] [facility] 08-06-2023 15:12-0500 Body weight 66.9 kg [facility] 08-06-2023 15:12-0500 Diastolic blood pressure 97 mm[Hg] [facility] 08-06-2023 15:12-0500 Heart rate 125 /min [facility] 08-06-2023 15:12-0500 Respiratory rate 16 /min [facility] 08-06-2023 15:12-0500 SaO2% (BldA) [Mass fraction] 99 % [facility] 08-06-2023 15:12-0500 Systolic blood pressure 148 mm[Hg] [facility] 08-01-2023 03:48-0500 Diastolic blood pressure 60 mm[Hg] [facility] 08-01-2023 03:48-0500 Heart rate 87 /min [facility] 08-01-2023 03:48-0500 Respiratory rate 18 /min [facility] 08-01-2023 03:48-0500 SaO2% (BldA) [Mass fraction] 96 % [facility] 08-01-2023 03:48-0500 Systolic blood pressure 125 mm[Hg] [facility] 08-01-2023 02:15-0500 Body height 172.72 cm [facility] 08-01-2023 02:15-0500 Body mass index (BMI) [Ratio] 21.3 kg/m2 [facility] 08-01-2023 02:15-0500 Body temperature 99.1 [degF] [facility] 08-01-2023 02:15-0500 Body weight 63.63 kg [facility] 07-16-2023 16:51-0500 Body height 172.72 cm [facility] 07-16-2023 16:51-0500 Body mass index (BMI) [Ratio] 21.3 kg/m2 [facility] 07-16-2023 16:51-0500 Body temperature 97.5 [degF] [facility] 07-16-2023 16:51-0500 Body weight 63.6 kg [facility] 07-16-2023 16:51-0500 Diastolic blood pressure 98 mm[Hg] [facility] 07-16-2023 16:51-0500 Heart rate 54 /min [facility] 07-16-2023 16:51-0500 Respiratory rate 18 /min [facility] 07-16-2023 16:51-0500 SaO2% (BldA) [Mass fraction] 100 % [facility] 07-16-2023 16:51-0500 Systolic blood pressure 147 mm[Hg] [facility] 06-10-2023 22:44-0500 Heart rate 89 /min [facility] 06-10-2023 22:44-0500 Respiratory rate 17 /min [facility] 06-10-2023 22:44-0500 SaO2% (BldA) [Mass fraction] 98 % [facility] 06-10-2023 21:42-0500 Body height 172.72 cm [facility] 06-10-2023 21:42-0500 Body mass index (BMI) [Ratio] 21.3 kg/m2 [facility] 06-10-2023 21:42-0500 Body temperature 97.8 [degF] [facility] 06-10-2023 21:42-0500 Body weight 63.58 kg [facility] 06-10-2023 21:42-0500 Diastolic blood pressure 103 mm[Hg] [facility] 06-10-2023 21:42-0500 Systolic blood pressure 162 mm[Hg] [facility] 11-25-2022 22:10-0400 Diastolic blood pressure 63 mm[Hg] [facility] 11-25-2022 22:10-0400 Heart rate 70 /min [facility] 11-25-2022 22:10-0400 Respiratory rate 16 /min [facility] 11-25-2022 22:10-0400 SaO2% (BldA) [Mass fraction] 97 % [facility] 11-25-2022 22:10-0400 Systolic blood pressure 124 mm[Hg] [facility] 11-25-2022 17:02-0400 Body height 172.72 cm [facility] 11-25-2022 17:02-0400 Body mass index (BMI) [Ratio] 20.1 kg/m2 [facility] 11-25-2022 17:02-0400 Body temperature 97.4 [degF] [facility] 11-25-2022 17:02-0400 Body weight 60.1 kg [facility] 10-17-2022 10:00-0400 Respiratory rate 16 /min [facility] 10-16-2022 20:51-0400 Body height 172.72 cm [facility] 10-16-2022 20:51-0400 Body mass index (BMI) [Ratio] 20.2 kg/m2 [facility] 10-16-2022 20:51-0400 Body temperature 98.1 [degF] [facility] 10-16-2022 20:51-0400 Body weight 60.52 kg [facility] 10-16-2022 20:51-0400 Diastolic blood pressure 101 mm[Hg] [facility] 10-16-2022 20:51-0400 Heart rate 108 /min [facility] 10-16-2022 20:51-0400 SaO2% (BldA) [Mass fraction] 100 % [facility] 10-16-2022 20:51-0400 Systolic blood pressure 153 mm[Hg] [facility] 09-03-2022 03:52-0500 Diastolic blood pressure 91 mm[Hg] [facility] 09-03-2022 03:52-0500 Heart rate 85 /min [facility] 09-03-2022 03:52-0500 Respiratory rate 18 /min [facility] 09-03-2022 03:52-0500 SaO2% (BldA) [Mass fraction] 100 % [facility] 09-03-2022 03:52-0500 Systolic blood pressure 126 mm[Hg] [facility] 09-02-2022 21:21-0500 Body height 172.72 cm [facility] 09-02-2022 21:21-0500 Body mass index (BMI) [Ratio] 19 kg/m2 [facility] 09-02-2022 21:21-0500 Body temperature 98.3 [degF] [facility] 09-02-2022 21:21-0500 Body weight 56.69 kg [facility] 05-20-2022 22:29-0400 Diastolic blood pressure 78 mm[Hg] [facility] Work Phone: 05-20-2022 22:29-0400 Heart rate 72 /min [facility] Work Phone: 05-20-2022 22:29-0400 Respiratory rate 16 /min [facility] Work Phone: 05-20-2022 22:29-0400 SaO2% (BldA) [Mass fraction] 100 % [facility] Work Phone: 05-20-2022 22:29-0400 Systolic blood pressure 130 mm[Hg] [facility] Work Phone: 05-20-2022 19:48-0400 Body height 172.72 cm [facility] Work Phone: 05-20-2022 19:48-0400 Body mass index (BMI) [Ratio] 21 kg/m2 [facility] Work Phone: 05-20-2022 19:48-0400 Body temperature 97.9 [degF] [facility] Work Phone: 05-20-2022 19:48-0400 Body weight 62.9 kg [facility] Work Phone: 03-21-2022 14:46-0400 Diastolic blood pressure 98 mm[Hg] [facility] Work Phone: 03-21-2022 14:46-0400 Heart rate 82 /min [facility] Work Phone: 03-21-2022 14:46-0400 Respiratory rate 16 /min [facility] Work Phone: 03-21-2022 14:46-0400 SaO2% (BldA) [Mass fraction] 99 % [facility] Work Phone: 03-21-2022 14:46-0400 Systolic blood pressure 121 mm[Hg] [facility] Work Phone: 03-21-2022 12:09-0400 Body height 172.72 cm [facility] Work Phone: 03-21-2022 12:09-0400 Body mass index (BMI) [Ratio] 20.8 kg/m2 [facility] Work Phone: 03-21-2022 12:09-0400 Body temperature 97.3 [degF] [facility] Work Phone: 03-21-2022 12:09-0400 Body weight 62.2 kg [facility] Work Phone: 01-19-2022 17:11-0400 Diastolic blood pressure 84 mm[Hg] [facility] Work Phone: 01-19-2022 17:11-0400 Heart rate 93 /min [facility] Work Phone: 01-19-2022 17:11-0400 Respiratory rate 16 /min [facility] Work Phone: 01-19-2022 17:11-0400 SaO2% (BldA) [Mass fraction] 100 % [facility] Work Phone: 01-19-2022 17:11-0400 Systolic blood pressure 125 mm[Hg] [facility] Work Phone: 01-19-2022 15:22-0400 Body height 172.72 cm [facility] Work Phone: 01-19-2022 15:22-0400 Body mass index (BMI) [Ratio] 21.2 kg/m2 [facility] Work Phone: 01-19-2022 15:22-0400 Body temperature 97.7 [degF] [facility] Work Phone: 01-19-2022 15:22-0400 Body weight 63.5 kg [facility] Work Phone: 01-18-2022 01:32-0400 Diastolic blood pressure 84 mm[Hg] [facility] Work Phone: 01-18-2022 01:32-0400 Heart rate 89 /min [facility] Work Phone: 01-18-2022 01:32-0400 Respiratory rate 15 /min [facility] Work Phone: 01-18-2022 01:32-0400 SaO2% (BldA) [Mass fraction] 99 % [facility] Work Phone: 01-18-2022 01:32-0400 Systolic blood pressure 117 mm[Hg] [facility] Work Phone: 01-17-2022 22:02-0400 Body height 172.72 cm [facility] Work Phone: 01-17-2022 22:02-0400 Body mass index (BMI) [Ratio] 21.2 kg/m2 [facility] Work Phone: 01-17-2022 22:02-0400 Body temperature 98.6 [degF] [facility] Work Phone: 01-17-2022 22:02-0400 Body weight 63.5 kg [facility] Work Phone: Encounters Encounter Date Encounter Type Care Provider Facility Start: 12-22-2024 ambulatory MARCEL Harkins lity:[facility] Start: 12-09-2024 End: 12-09-[address] Yang Del Rio MD -[facility] Work Phone: Start: 12-09-2024 End: 12-09-[address] Humberto Downs MD Work Phone: [facility] Work Phone: Start: 12-08-2024 End: 12-09-2024 ambulatory Humberto Downs Facility:[facility] Start: 12-08-2024 Encounter for genera l adult medical examination without abnormal findings MARCEL NICHOLS [facility] Start: 12-01-2024 End: 12-01-2024 Refill Cathi Parks APRN.CNP Work Phone: General Surgery Comment on above: Med Change Request Start: 11-30-2024 End: 11-30-[address] Humberto Downs MD Work Phone: [facility] Work Phone: Start: 11-30-2024 End: 11-30-[address] Yang Del Rio MD -[facility] Work Phone: Start: 11-30-2024 End: 11-30-2024 ambulatory Humberto Downs Facility:[facility] Start: 11-26-2024 End: 11-26-2024 Admission to same day surgery center Cathi Parks WILLIAM.SSIS DEVELOPER Work Phone: General Surgery Comment on above: EGD/ Colonoscopy res ults Start: 11-26-2024 End: 11-26-2024 E-mail encounter from caregiver Cathi Parks APRN.SSIS DEVELOPER Work Phone: General Surgery Start: 11-24-2024 End: 11-27-2024 Evaluation and management of inpatient CIRO MCCONNELL Facility:[facility] Start: 11-24-2024 End: 11-24-2024 Admission to same day surgery center Morelia Velazquez MD, PhD Work Phone: Neurosurgery Comment on above: Stroke-like symptoms (Primary Dx) Start: 11-24-2024 End: 11-24-2024 Telemedicine consultation with patient Morelia Velazquez MD, PhD Work Phone: Neurosurgery Start: 11-24-2024 End: 11-24-2024 Emergency department patient visit TJ AHUMADA Facility:[facility] Start: 11-24-2024 ambulatory TORY LAMBERT Facility:[facility] Start: 11-24-2024 End: 11-24-2024 Subsequent hospital visit by physician Deborah Kendall MD Work Phone: [facility] Endoscopy Comment on above: Heart burn [R12] Start: 11-18-2024 End: 11-18-[address] Skye Lopez DO -Laboratory Work Phone: Start: 11-18-2024 End: 11-18-2024 ambulatory Skye Lopez Facility:[facility] Start: 11-09-2024 End: 11-09-2024 ambulatory CATHI PARKS Facility:[facility] Start: 11-09-2024 End: 11-09-2024 Patient encounter procedure Cathi Parks SPIKE MACHINE HEATER.SSIS DEVELOPER Work Phone: General Surgery Comment on above: Duodenitis without b leeding (Primary Dx); Heart burn; Epigastric abdominal pain; History of colonic polyps; Wellness examination; Melena Start: 11-09-2024 End: 11-09-2024 Patient encounter status Cathi Parks SPIKE MACHINE HEATER.SSIS DEVELOPER Work Phone: [facility] Start: 10-29-2024 End: 10-29-2024 ambulatory TALI CABALLERO Facility:[facility] Start: 10-29-2024 End: 10-29-2024 Patient encounter procedure Tali Caballero MD Work Phone: Endocrinology Comment on above: Low bone density for age (Primary Dx) Start: 10-28-2024 End: 10-28-[address] Humberto Downs MD Work Phone: [facility] Work Phone: Start: 10-28-2024 End: 10-28-[address] Yang Del Rio MD -Pulmonary Services/Neurology Work Phone: Start: 10-28-2024 End: 10-28-2024 ambulatory Humberto Downs Facility:[facility] Start: 10-12-2024 End: 10-12-2024 ambulatory TALI CABALLERO Facility:[facility] Start: 09-16-2024 End: 10-25-2024 ambulatory Florence Macias SUPERVISOR BOARDING Work Phone: Josemanuel VASQUEZ Start: 09-16-2024 End: 10-25-2024 Chart abstracting Florence Macias SUPERVISOR BOARDING Work Phone: [facility] Start: 09-13-2024 End: 09-13-[address] Rebekah Palomares MD -[facility] Work Phone: Start: 09-13-2024 End: 09-23-2024 ambulatory Meaghan Eddy Bloom DO Work Phone: Hematology/Oncology Comment on above: Test result Start: 09-08-2024 End: 09-08-2024 ambulatory NO ASSIGNED PCP GENERIC PROVIDER [facility] Start: 09-08-2024 End: 09-08-2024 Subsequent hospital visit by physician [address] Comment on above: Shortness of breath; Chest pain, unspecified Start: 08-25-[address] Ez Del Rio MD -Cardiovascular Services Work Phone: Start: 08-25-2024 End: 08-25-[address] Yang Del Rio MD -Laboratory Work Phone: Start: 08-25-2024 ambulatory Humberto Yareli Facili ty:[facility] Start: 08-25-2024 Non-patient / Non-visit Dr. Cole TATUM -[facility] Work Phone: Start: 08-25-2024 End: 08-25-2024 ambulatory [facility] Facility:[facility] Start: 08-17-2024 End: 08-17-2024 Emergency department patient visit HUMBERTO RODRIGUEZER Facility:[facility] Start: 08-11-2024 End: 08-11-2024 Patient encounter procedure Cathi Parks APRN.CNP Work Phone: General Surgery Comment on above: Gastritis without bl eeding, unspecified chronicity, unspecified gastritis type (Primary Dx); Duodenitis without bleeding; Gastroesophageal reflux disease without esophagitis Start: 08-11-2024 End: 08-11-2024 ambulatory Humberto Downs [facility] Start: 08-10-2024 End: 08-10-2024 ambulatory TALI CABALLERO Facility:[facility] Start: 08-10-2024 End: 08-10-2024 Patient encounter procedure Tali Caballero MD Work Phone: Endocrinology Comment on above: Osteopenia of lumbar spine (Primary Dx); Low testosterone Start: 08-05-2024 ambulatory No Primary Car e Physician [facility] [facility] Start: 07-11-2024 End: 07-11-2024 Emergency department patient visit HUMBERTO DOWNS Facility:[facility] Start: 07-09-2024 End: 09-30-2024 ambulatory Venus Abernathy Start: 07-09-2024 End: 09-30-2024 Chart abstracting Venus Ni RADHA JOSEMANUEL Start: 07-02-2024 ambulatory MACIVAN AYALAMATI Facility:[facility] Start: 07-02-2024 End: 07-02-2024 Subsequent hospital visit by physician Tyree Dangelo DO Work Phone: [facility] Comment on above: History of colonic p olyps [Z86.0100] Start: 06-07-2024 End: 06-07-2024 ambulatory TALI CABALLERO Facility:[facility] Start: 06-07-2024 End: 06-07-2024 Patient encounter procedure Tali Caballero MD Work Phone: Endocrinology Comment on above: Osteopenia of lumbar spine Start: 06-07-2024 End: 06-07-2024 ambulatory [facility] [place] Facility:[facility] Start: 05-27-2024 End: 05-27-2024 ambulatory [facility] Facility:[facility] Start: 05-17-2024 End: 05-18-2024 Emergency department patient visit Humberto Downs Facility:[facility] Start: 05-17-2024 End: 05-17-2024 ambulatory Humberto Downs Facility:[facility] Start: 05-13-2024 End: 05-13-2024 ambulatory NONE PHYSICIAN Facility:A Start: 05-13-2024 End: 05-13-2024 Patient encounter procedure NIR VAN ID REFERRING [facility] Start: 04-23-2024 ambulatory Rebekah Palomares Facility:[facility] Start: 04-16-2024 End: 04-20-2024 Telephone encounter Meaghan Bloom DO Work Phone: Hematology/Oncology Comment on above: Results Start: 04-14-2024 End: 04-14-2024 ambulatory [facility] Facility[facility] Start: 04-01-2024 End: 04-01-2024 ambulatory MEAGHAN BLOOM Facility:[facility] Start: 04-01-2024 End: 04-01-2024 Subsequent hospital visit by physician [facility] Work Phone: Radiology Comment on above: Bony sclerosis [Q78. 2] Start: 03-31-2024 End: 03-31-2024 Admission to same day surgery center Ctahi Parks APRN.CNP Work Phone: General Surgery Comment on above: CT scan Start: 03-31-2024 End: 03-31-2024 E-mail encounter from caregiver Cathi Parks APRN.CNP Work Phone: General Surgery Start: 03-31-2024 End: 03-31-2024 ambulatory [facility] Facility[facility] Start: 03-30-2024 End: 03-31-2024 ambulatory [facility] Facility:[facility] Start: 03-30-2024 End: 03-30-2024 Subsequent hospital visit by physician Ct [facility] (I-Stat) Work Phone: Cat Scan Comment on above: Diarrhea, unspecifie d type [R19.7] Start: 03-23-2024 End: 05-25-2024 Telephone encounter Cathi Parks APRN.CNP Work Phone: General Surgery Comment on above: [facility] Records Patient Update Start: 03-23-2024 End: 03-23-2024 Emergency department patient visit Bogdan Austin Facility:[facility] Start: 03-23-2024 End: 03-23-2024 ambulatory CATHI CHARLY Facility:[facility] Start: 03-23-2024 End: 03-23-2024 Patient encounter procedure Cathi Parks APRN.CNP Work Phone: General Surgery Comment on above: Encounter for screen ing for malignant neoplasm of colon (Primary Dx); History of colonic polyps; Dysphagia, unspecified type; Heartburn; Diarrhea, unspecified type; Bony sclerosis; Osteopenia of other site; Testicular hypofunction Start: 03-18-2024 End: 03-19-2024 Telephone encounter Meaghan Bloom DO Work Phone: Hematology/Oncology Comment on above: Results Start: 03-15-2024 End: 03-15-2024 [facility] Start: 03-15-2024 End: 03-15-2024 Subsequent hospital visit by physician Xr [facility] Work Phone: Radiology Comment on above: Bony sclerosis [Q78. 2] Start: 03-15-2024 End: 03-16-2024 Telephone encounter Meaghan Bloom DO Work Phone: Hematology/Oncology Comment on above: AVS 03/15/24 Start: 03-15-2024 End: 03-15-2024 ambulatory Meaghan Bloom DO Work Phone: Hematology/Oncology Comment on above: Covid Positive Start: 03-15-2024 End: 03-15-2024 Examination of testicle Meaghan Bloom DO Work Phone: Hematology/Oncology Comment on above: Bony sclerosis (Prim maki Dx); Osteopenia of other site; Testicular hypofunction; Polycystic kidney disease Start: 03-15-2024 End: 03-15-2024 Patient encounter procedure Meaghan Bloom DO Work Phone: Hematology/Oncology Start: 03-10-2024 End: 03-10-2024 ambulatory [facility] Facility[facility] Start: 02-27-2024 Telephone encounter Meaghan romero DO Work Phone: Hematology/Oncology Comment on above: New Patient Start: 02-26-2024 E-mail encounter fro m caregiver Mojgan Elizabeth APRN.SSIS DEVELOPER Work Phone: [facility] Start: 02-26-2024 Follow-up encounter Mojgan Orozco ams, APRN.SSIS DEVELOPER Work Phone: [facility] Comment on above: Follow up Start: 02-26-2024 End: 02-26-2024 Patient encounter procedure Mojgan Elizabeth SPIKE MACHINE HEATER.SSIS DEVELOPER Work Phone: [facility] Comment on above: Abnormal finding on imaging (Primary Dx); Osteopenia of other site; Bony sclerosis; Does not have primary care provider Start: 02-26-2024 End: 02-26-2024 Telemedicine consultation with patient Mojgan Elizabeth SPIKE MACHINE HEATER.SSIS DEVELOPER Work Phone: [facility] Start: 02-26-2024 End: 02-26-2024 ambulatory MOJGAN ELIZABETH Facility:[facility] Start: 02-25-2024 End: 02-25-2024 ambulatory [facility] Facility:[facility] Start: 02-17-2024 End: 05-06-2024 Telephone encounter Kasia Katty THOMAS.SSIS DEVELOPER Work Phone: [facility] Comment on above: Actionable Findings Follow Up Start: 02-16-2024 E-mail encounter fro m caregiver Alanis Cuba PA-C Work Phone: [facility] Start: 02-16-2024 Follow-up encounter Alanis DANIEL-Te Work Phone: [facility] Comment on above: actionable finding [facility] Start: 01-04-2024 End: 01-05-2024 Emergency department patient visit JOHN Degroot [facility] Start: 12-22-2023 Emergency department patient visit Facility:[id number] Start: 11-26-2023 End: 11-26-2023 Emergency department patient visit No Primary Care Physician [facility]-Emergency Department Work Phone: Start: 11-13-2023 End: 11-13-2023 Emergency department patient visit Tommy Swanson Facility:[facility] Start: 11-13-2023 End: 11-13-2023 Emergency department patient visit DO Tommy Swanson Work Phone: [facility] Work Phone: Start: 09-04-2023 End: 09-20-2024 ambulatory Venus VASQUEZ Start: 09-04-2023 End: 09-20-2024 Chart abstracting Venus ABERNATHY Start: 08-28-2023 Non-patient / Non-visit No Kelley ramirez [facility] Physician [facility] Start: 08-28-2023 Non-patient / Non-visit No Kelley ramirez [facility] Physician [facility] Work Phone: Start: 08-27-2023 Non-patient / Non-visit No Kelley ramirez [facility] Physician [facility] Work Phone: Start: 08-27-2023 End: 08-28-2023 Evaluation and management of inpatient [facility]-Progressive Care Unit Work Phone: Start: 08-27-2023 End: 08-28-2023 observation encounter No Primary Care Physician [facility] Work Phone: Start: 08-06-2023 End: 08-06-2023 Emergency department patient visit [facility]Emergency [facility] Work Phone: Start: 08-01-2023 End: 08-01-2023 Emergency department patient visit [facility] Work Phone: Start: 07-16-2023 End: 07-16-2023 Emergency department patient visit [facility] Work Phone: Start: 06-18-2023 End: 06-18-2023 ambulatory [facility] Work Phone: Start: 06-18-2023 End: 06-18-2023 Patient encounter procedure [facility]Laboratory Work Phone: Start: 06-10-2023 End: 06-10-2023 Emergency department patient visit [facility]Emer[facility] Work Phone: Start: 04-18-2023 ambulatory PATRICIA SHARITA vitale Start: 04-09-2023 Telephone encounter Tj Gould Work Phone: Podiatry Comment on above: Patient Update Start: 02-27-2023 Telephone encounter Tj Gould Work Phone: Podiatry Comment on above: Patient Update Start: 02-26-2023 Telephone encounter Tj Gould Work Phone: Podiatry Comment on above: Patient Update Start: 01-31-2023 Telephone encounter Tj Gould Work Phone: Podiatry Comment on above: Patient Update Start: 01-28-2023 Telephone encounter Tj Gould Work Phone: Podiatry Comment on above: Orders Start: 01-28-2023 End: 01-28-2023 Subsequent hospital visit by physician Xr [facility] Work Phone: Radiology Comment on above: Pain of toe of right foot [M79.674] Start: 01-28-2023 End: 01-28-2023 Patient encounter procedure Tj Sorto Work Phone: Podiatry Comment on above: Pain of toe of right foot (Primary Dx); Soft tissue mass; Cellulitis and abscess of toe of right foot Start: 11-27-2022 End: 11-27-2022 ambulatory [facility] Work Phone: Start: 11-27-2022 End: 11-27-2022 Patient encounter procedure [facility] Start: 11-25-2022 End: 11-25-2022 [facility] Start: 10-16-2022 End: 10-17-2022 Emergency department patient visit [facility] Start: 09-20-2022 End: 09-20-2022 ambulatory [facility] Work Phone: Start: 09-20-2022 End: 09-20-2022 Patient encounter procedure [facility] Start: 09-02-2022 End: 09-03-2022 Emergency department patient visit [facility] Start: 08-01-2022 End: 08-01-2022 Subsequent hospital visit by physician [facility] (I-Stat/1.5t) Work Phone: Radiology Comment on above: Mass of right foot [ R22.41] Start: 07-25-2022 End: 07-25-2022 Patient encounter procedure Tj Sorto Work Phone: Podiatry Comment on above: Soft tissue mass (Pr imary Dx); Pain of toe of right foot; Diminished pulses in lower extremity; Mass of right foot Start: 06-24-2022 ambulatory [facility] ([facility]ical[facility] Start: 06-19-2022 End: 06-19-2022 Subsequent hospital visit by physician [facility] Work Phone: Radiology Comment on above: Pain of toe of right foot [M79.674] Start: 05-20-2022 End: 05-20-2022 [facility] Start: 03-21-2022 End: 03-21-2022 [facility] Start: 01-19-2022 End: 01-19-2022 [facility] Start: 01-17-2022 End: 01-18-2022 [facility] Start: 06-29-2015 End: 06-29-2015 Telephone encounter Serge Sutherland (Kemar) Leeann Work Phone: Radiology Comment on above: Biopsy Request Procedures Date Procedure Procedure Detail Performing Clinician Start: 11-30-2024 MRI of brain with contrast Dr. Humberto Downs MD Work Phone: Start: 11-24-2024 Gluc bld gluc mntr dev cleared fda spec home use Tory Lambert MD Work Phone: Start: 11-24-2024 Esophagogastroduodenoscopy transoral diagnostic Cathi Parks SPIKE MACHINE HEATER.SSIS DEVELOPER Work Phone: Start: 11-24-2024 Colonoscopy flx dx w/collj spec when pfrmd Cathi Parks APRN.SSIS DEVELOPER Work Phone: Start: 11-24-2024 Colonoscopy Cathi Parks SPIKE MACHINE HEATER.SSIS DEVELOPER Work Phone: Start: 11-24-2024 Lipid 1996 panel - Serum or Plasma Deborah Kendall MD Work Phone: Start: 08-25-2024 PCR test for HIV 1 Dr. Humberto Downs MD Work Phone: Comment on above: HIV-1 RNA not detectedThe reportable ran ge for this assay is 20 to 10,000,000copies HIV-1 RNA/mL. Start: 08-25-2024 Measurement of renal function Dr. Humberto Downs MD Work Phone: Comment on above: GFR Calc Start: 07-02-2024 Colonoscopy flx dx w/collj spec when pfrmd Cathi Charly SPIKE MACHINE HEATER.SSIS DEVELOPER Work Phone: Start: 07-02-2024 Esophagogastroduodenoscopy transoral diagnostic Cathi Charly SPIKE MACHINE HEATER.SSIS DEVELOPER Work Phone: Start: 03-30-2024 Ct abdomen & pelvis w/o contrast material Cathi Charly SPIKE MACHINE HEATER.SSIS DEVELOPER Work Phone: Start: 01-04-2024 Urinalysis JOHN CHAMBERS Comment on above: Result Comment: URINALYSIS Performed By: #### 2 [id number] #### [facility],[address] [place] [address] Start: 11-13-2023 Computed tomography of abdomen and pelvis with contrast DO Tommy Charlieolive Work Phone: Start: 11-13-2023 CT angiography of thorax DO Tommy Swanson Work Phone: Start: 08-28-2023 MRI of brain with contrast No Primary Ca re Physician Start: 08-27-2023 CT angiography of head and neck Start: 08-27-2023 CT angiography of chest with contrast Start: 08-27-2023 CT of face Start: 08-27-2023 CT of head without contrast Start: 08-27-2023 Plain chest X-ray Start: 07-16-2023 CT cervical spine without contrast Start: 07-16-2023 CT of head without contrast Start: 01-28-2023 Radex toe minimum 2 views Tj saldivar Work Phone: Start: 11-25-2022 X-ray of chest posteroanterior view Start: 09-03-2022 Plain chest X-ray Start: 09-02-2022 Ultrasound of scrotum with Doppler and color flow imaging Start: 08-01-2022 Mri lower extrem oth/thn jt w/o & w/contr matr Tj Sorto Work Phone: Start: 06-19-2022 Radex toe minimum 2 views Aarti Osorio SPIKE MACHINE HEATER.SSIS DEVELOPER Work Phone: Start: 05-20-2022 Diagnostic radiography of abdomen Start: 03-21-2022 Plain chest X-ray Start: 01-19-2022 Plain chest X-ray Start: 01-17-2022 CT of abdomen and pelvis without contrast Start: 12-08-2019 Lipid 1996 panel - Serum or Plasma Sharlene Cuba PA-C Work Phone: H/O: surgery S/P nasal septoplasty Dr. Humberto Downs MD Work Phone: SARS-CoV-2 & FLU Antigen (Rapid) Urine culture Urine culture Viral antigen assay Plan of Treatment Date Care Activity Detail Author Start: 08-01-2033 DTaP/Tdap/Td Vaccines (4 - Td or Tdap) DTaP/Tdap/Td Vaccines (4 - Td or Tdap) [facility] Start: 08-01-2033 Urine microalbumin profile DTaP,Tdap,Td Vaccine (4 - Td or Tdap) [facility] Start: 11-24-2029 Lipid panel Lipid Screening [facility] Start: 11-24-2029 Screening for malignant neoplasm of colon [facility] Start: 10-28-2025 End: 10-28-2025 Patient encounter procedure 10/28/2025 12:00 PM EDT Office Visit Endocrinology [address] [place] [address] Tali Caballero MD [address] [place] [id number] 1 yr-osteopenia Endocrinology Comment on above: 1 yr-osteopenia Start: 03-21-2025 Influenza vaccination Influenza Vaccine (Season Ended) [facility] Start: 12-10-2024 End: 12-10-2024 Patient encounter procedure 12/10/2024 11:00 AM EDT Office [facility] [address] [id number] Louise Saenz APRN.SSIS DEVELOPER [address] [address] hospital discharge follow up-stroke [facility] Comment on above: hospital discharge follow up-stroke Start: 12-08-2024 End: 12-08-2024 Patient encounter procedure 12/08/2024 1:00 PM EDT Office Visit [facility] [address] [place] [address] Marcel Nichols APRN.SSIS DEVELOPER [address] [place] [address] Wellness examination [Z00.00] [facility] Comment on above: Wellness examination [Z00.00] Start: 12-07-2024 Lipid panel Lipid Screening [facility] Start: 11-24-2024 End: 11-24-2024 Patient encounter procedure 11/24/2024 3:30 PM EDT Appointment [facility] [address] [place] [id number] [facility] Start: 11-09-2024 End: 11-09-2024 Patient encounter procedure 11/09/2024 11:00 AM EDT Office Visit General Surgery [address] [place] [address] Cathi Parks APRN.SSIS DEVELOPER [address] [place] [address] 3 month f/u- consult again for colonoscopy and egd General Surgery Comment on above: 3 month f/u- consult again for colonosco py and egd Start: 10-19-2024 End: 10-19-2024 Patient encounter procedure 10/19/2024 9:00 AM EDT Office Visit Endocrinology [address] [place], [place] [id number] Tali Caballero MD [address] [place] [address] 3 MTH F/U Endocrinology Comment on above: 3 MTH F/U Start: 08-31-2024 End: 11-30-2024 Albumin [Mass/volume] in Serum or Plasma ALBUMIN Lab Routine Osteopenia of lumbar spine Expected: 08/31/2024, Expires: 11/30/2024 [facility] Comment on above: Expected: 08/31/2024, Expires: Start: 08-31-2024 End: 11-30-2024 ALK PHOS BONE SPEC ALK PHOS BONE SPEC Lab Routine Osteopenia of lumbar spine Expected: 08/31/2024, Expires: 11/30/2024 [facility] Comment on above: Expected: 08/31/2024, Expires: Start: 08-31-2024 End: 11-30-2024 Calcium [Mass/volume] in Serum or Plasma CALCIUM, TOTAL Lab Routine Osteopenia of lumbar spine Expected: 08/31/2024, Expires: 11/30/2024 [facility] Comment on above: Expected: 08/31/2024, Expires: Start: 08-31-2024 End: 11-30-2024 Calcium.ionized [Moles/volume] in Blood CALCIUM, IONIZED Lab Routine Osteopenia of lumbar spine Expected: 08/31/2024, Expires: 11/30/2024 [facility] Comment on above: Expected: 08/31/2024, Expires: Start: 08-31-2024 End: 11-30-2024 Collagen crosslinked C-telopeptide [Mass/volume] in Serum or Plasma C TELOPEPTIDE, BETA Lab Routine Osteopenia of lumbar spine Expected: 08/31/2024, Expires: 11/30/2024 [facility] Comment on above: Expected: 08/31/2024, Expires: Start: 08-31-2024 End: 11-30-2024 Follitropin [Units/volume] in Serum or Plasma FOLLICLE STIMULATING HORMONE Lab Routine Low testosterone Expected: 08/31/2024, Expires: 11/30/2024 [facility] Comment on above: Expected: 08/31/2024, Expires: Start: 08-31-2024 End: 11-30-2024 Lutropin [Units/volume] in Serum or Plasma LUTEINIZING HORMONE Lab Routine Low testosterone Expected: 08/31/2024, Expires: 11/30/2024 [facility] Comment on above: Expected: 08/31/2024, Expires: Start: 08-31-2024 End: 11-30-2024 Parathyrin.intact [Mass/volume] in Serum or Plasma PTH INTACT Lab Routine Osteopenia of lumbar spine Expected: 08/31/2024, Expires: 11/30/2024 [facility] Comment on above: Expected: 08/31/2024, Expires: Start: 08-31-2024 End: 11-30-2024 Prolactin [Mass/volume] in Serum or Plasma PROLACTIN Lab Routine Low testosterone Expected: 08/31/2024, Expires: 11/30/2024 [facility] Comment on above: Expected: 08/31/2024, Expires: Start: 08-31-2024 End: 11-30-2024 Sex hormone binding globulin [Moles/volume] in Serum or Plasma SEX-HORMONE BINDING Lab Routine Low testosterone Expected: 08/31/2024, Expires: 11/30/2024 [facility] Comment on above: Expected: 08/31/2024, Expires: Start: 08-31-2024 End: 11-30-2024 TESTOSTERONE, FREE AND TOTAL, BY EQUILIBRIUM ULTRAFILTRATION MASS SPECTROMETRY TESTOSTERONE, FREE AND TOTAL, BY EQUILIBRIUM ULTRAFILTRATION MASS SPECTROMETRY Lab Routine Low testosterone Expected: 08/31/2024, Expires: 11/30/2024 [facility] Work Phone: Comment on above: Expected: 08/31/2024, Expires: Start: 08-31-2024 End: 11-30-2024 Thyrotropin [Units/volume] in Serum or Plasma THYROID STIMULATING HORMONE Lab Routine Low testosterone Expected: 08/31/2024, Expires: 11/30/2024 [facility] Comment on above: Expected: 08/31/2024, Expires: Start: 08-31-2024 End: 11-30-2024 Thyroxine (T4) free [Mass/volume] in Serum or Plasma T4 FREE/FREE THYROXINE Lab Routine Low testosterone Expected: 08/31/2024, Expires: 11/30/2024 [facility] Comment on above: Expected: 08/31/2024, Expires: Start: 08-11-2024 End: 08-11-2024 Patient encounter procedure 08/11/2024 11:00 AM EST Office Visit General Surgery [address] [place] [address] Cathi Parks APRN.SSIS DEVELOPER [address] [place] [address] EGD / COLONOSCOPY RESULTS General Surgery Comment on above: EGD / COLONOSCOPY RESULTS Start: 08-10-2024 End: 11-09-2024 25-hydroxyvitamin D3 [Mass/volume] in Serum or Plasma VITAMIN D 25 HYDROXY Lab Routine Osteopenia of lumbar spine Expected: 08/10/2024, Expires: 11/09/2024 [facility] Comment on above: Expected: 08/10/2024, Expires: Start: 08-10-2024 End: 08-10-2024 Patient encounter procedure 08/10/2024 11:40 AM EST Office Visit Endocrinology [address] [place] [address] Tali Caballero MD [address] [place] [address] 2 MTH F/U Endocrinology Comment on above: 2 MTH F/U Start: 07-21-2024 [facility] Start: 07-21-2024 Screening for substance abuse Alcohol and Drug Screen [facility] Start: 07-02-2024 End: 07-02-2024 Patient encounter procedure [facility] Comment on above: colon/egd Start: 06-28-2024 Urine microalbumin profile DTaP,Tdap,Td Vaccine (2 - Td or Tdap) [facility] Start: 06-07-2024 End: 06-07-2024 Patient encounter procedure 06/07/2024 3:00 PM EST Office Visit Endocrinology [address], [place] [id number] Tali Caballero MD [address] [place] [address] Osteopenia of lumbar spine [M85.88] Endocrinology Comment on above: Osteopenia of lumbar spine [M85.88] Start: 04-01-2024 End: 04-01-2024 Patient encounter procedure 04/01/2024 10:05 AM EDT Appointment Radiology [address] [place] [id number] Bony sclerosis [Q78.2]; Osteopenia of other site [M85.88]; Testicular hypofunction [E29.1] Radiology Comment on above: Bony sclerosis [Q78.2]; Osteopenia of ot her site [M85.88]; Testicular hypofunction [E29.1] Start: 03-30-2024 End: 03-30-2024 Patient encounter procedure Cat Scan Comment on above: Diarrhea, unspecified type [R19.7] Start: 03-23-2024 End: 03-23-2024 Patient encounter procedure 03/23/2024 11:30 AM EDT Office Visit General Surgery [address], [place] [id number] Cathi Parks APRN.SSIS DEVELOPER [address], [place] [id number] colonoscopy consult General Surgery Comment on above: colonoscopy consult Start: 03-21-2024 Covid-19 Vaccine () Covid-19 Vaccine ( season) [facility] Start: 03-21-2024 Covid-19 Vaccine () Covid-19 Vaccine () [facility] Start: 03-21-2024 [id number] ( season) [id number] ( season) [facility] Start: 03-21-2024 Influenza vaccination [facility] Start: 03-17-2024 End: 03-17-2024 Patient encounter procedure 03/17/2024 3:00 PM EDT Office Visit General Surgery [address], [place] [phone] Cathi Parks APRN.SSIS DEVELOPER [address] [place] [address] colonoscopy consult General Surgery Comment on above: colonoscopy consult Start: 03-15-2024 End: 06-14-2024 MONOCLONAL PROTEIN, SERUM (BLOOD) [facility] Comment on above: Expected: 03/15/2024, Expires: Start: 03-15-2024 End: 06-14-2024 Parathyrin.intact [Mass/volume] in Serum or Plasma [facility] Comment on above: Expected: 03/15/2024, Expires: Start: 03-15-2024 End: 06-14-2024 PROTEIN ELECTROPHORESIS SERUM W/INTERP [facility] Comment on above: Expected: 03/15/2024, Expires: Start: 03-15-2024 End: 06-14-2024 Testosterone [Mass/volume] in Serum or Plasma [facility] Comment on above: Expected: 03/15/2024, Expires: Start: 03-15-2024 End: 06-14-2024 VASC ENDO GROWTH FACTOR [facility] Comment on above: Expected: 03/15/2024, Expires: 4 Start: 03-15-2024 End: 03-15-2024 ambulatory 03/15/2024 1:30 PM EDT Visit (SP) Office Hematology/Oncology [address] [place], [place] [id number] Meaghan Bloom DO [address] [place], [place] [id number] CHILDCARE AIDE/OSTEOPENIA,BONY SCLEROSIS/REF.MOJGAN ELIZABETH CNP* Hematology/Oncology Comment on above: CHILDCARE AIDE/OSTEOPENIA,BONY SCLEROSIS/REF.MOJGAN MONTOYA CNP* Start: 11-26-2023 [facility] Start: 11-26-2023 [facility] Start: 08-28-2023 Patient discharge [facility] Start: 08-28-2023 Referral to service [facility] Start: 08-28-2023 [place] suppressor ratio determination [facility] Start: 08-28-2023 Measurement of Borrelia burgdorferi antibody [facility] Start: 08-27-2023 Cardiac monitoring [facility] Start: 08-27-2023 End: 08-27-2023 [facility] Start: 08-27-2023 Consultation [facility] Start: 08-27-2023 Oxygen therapy [facility] Start: 08-27-2023 Telemedicine consultation with patient [facility] Start: 08-27-2023 Ambulation without limitation [facility] Start: 08-27-2023 Assessment of risk of venous thromboembolism [facility] Start: 08-27-2023 Insertion of catheter into peripheral vein [facility] Start: 08-27-2023 Measuring intake and output [facility] Start: 08-27-2023 Providing care according to standard [facility] Start: 08-27-2023 Following clinical pathway protocol [facility] Start: 08-27-2023 Hospital admission, emergency, from emergency room, medical nature [facility] Start: 08-27-2023 Admission procedure [facility] Start: 08-27-2023 Telemedicine consultation with patient [facility] Start: 08-27-2023 Seizure precautions [facility] Start: 08-06-2023 End: 08-06-2023 [facility] Start: 08-01-2023 Simple repair f/e/e/n/l/m 2.5cm/< RPR F/E/E/N/L/M 2.5 CM/< [facility] Start: 08-01-2023 [facility] Start: 07-16-2023 [facility] Start: 07-16-2023 Simple repair f/e/e/n/l/m 2.5cm/< RPR F/E/E/N/L/M 2.5 CM/< [facility] Start: 06-10-2023 [facility] Start: 03-21-2023 Covid-19 Vaccine ( season) Covid-19 Vaccine ( season) [facility] Start: 03-21-2023 Influenza vaccination [facility] Start: 11-27-2022 End: 11-27-2022 Procedure [facility] Start: 11-25-2022 [facility] Start: 10-16-2022 Referral to service [facility] Start: 09-20-2022 Procedure [facility] Start: 07-21-2022 DEPRESSION ASSESSMENT DEPRESSION ASSESSMENT [facility] Start: 03-21-2022 Influenza vaccination INFLUENZA (#1) [facility] Start: 03-21-2022 [facility] Work Phone: Start: 07-21-2021 DEPRESSION ASSESSMENT DEPRESSION ASSESSMENT [facility] Start: 03-21-2021 Influenza vaccination INFLUENZA (Season Ended) [facility] Start: 2007 Hepatitis A immunization Imm-Hepatitis A (1 of 2 - Risk 2-dose series) [facility] Start: 2007 Hepatitis A Vaccines (1 of 2 - Risk 2-dose series) Hepatitis A Vaccines (1 of 2 - Risk 2-dose series) [facility] Start: 2007 Hepatitis B vaccination Imm-Hepatitis B (1 of 3 - 19+ 3-dose series) [facility] Start: 2007 Hepatitis B Vaccine (1 of 3 - 19+ 3-dose series) Hepatitis B Vaccine (1 of 3 - 19+ 3-dose series) [facility] Start: 2007 Hepatitis B Vaccines (1 of 3 - 19+ 3-dose series) Hepatitis B Vaccines (1 of 3 - 19+ 3-dose series) [facility] Start: 2007 Imm-Pneumococcal (1 of 2 - PCV) Imm-Pneumococcal (1 of 2 - PCV) [facility] Start: 2007 Imm-Zoster, Recombinant (1 of 2) Imm-Zoster, Recombinant (1 of 2) [facility] Start: 2007 Pneumococcal vaccination Pneumococcal Vaccine (1 of 2 - PCV) [facility] Start: 2007 Pneumococcal Vaccine: Pediatrics and At-Risk Adult Patients (1 of 2 - PCV) Pneumococcal Vaccine: Pediatrics and At-Risk Adult Patients (1 of 2 - PCV) [facility] Start: 2007 Tetanus vaccination Imm-DTaP/Tdap/Td (1 - Tdap) [facility] Start: 2007 Urine microalbumin profile [facility] Start: 2007 Zoster Vaccines (1 of 2) Zoster Vaccines (1 of 2) [facility] Start: 2006 Anxiety Screening Anxiety Screening [facility] Start: 2006 Depression Screening Depression Screening [facility] Start: 2006 HEPATITIS C SCREENING HEPATITIS C SCREENING [facility] Start: 2006 Hepatitis C screening Hepatitis C Screening [facility] Start: 2006 HIV SCREENING HIV SCREENING [facility] Start: 2006 Hypertension screening Hypertension Screening (#1) [facility] Start: 2006 Ctqopqt-bjurr-cjoinst vaccination Imm-MMR (1 of 2 - Risk 2-dose series) [facility] Start: 2006 MMR Vaccines (1 of 2 - Risk 2-dose series) MMR Vaccines (1 of 2 - Risk 2-dose series) [facility] Start: 2001 Varicella vaccination Varicella Vaccines (1 of 2 - 13+ 2-dose series) [facility] Start: 2000 Adult depression screening assessment DEPRESSION SCREENING [facility] Start: 1994 PNEUMOCOCCAL (1 - PCV) PNEUMOCOCCAL (1 - PCV) [facility] Start: 1994 Pneumococcal vaccination [facility] Start: 1993 COVID-19 Vaccine (#1) COVID-19 Vaccine (#1) [facility] Start: 1990 Meningococcal conjugate vaccination Imm-Meningococcal (1 - Risk 2-dose series) [facility] Start: 1990 Meningococcal Vaccine (1 - Risk 2-dose series) Meningococcal Vaccine (1 - Risk 2-dose series) [facility] Start: 02-21-1989 COVID-19 VACCINE (#1) COVID-19 VACCINE (#1) [facility] Start: 1988 Anxiety Screening Anxiety Screening [facility] Start: 1988 Diabetes mellitus screening Diabetes Screening [facility] Start: 1988 HEPATITIS B (1 of 3 - 3-dose series) HEPATITIS B (1 of 3 - 3-dose series) [facility] Start: 1988 Hepatitis B Screening Hepatitis B Screening [facility] Start: 1988 Hepatitis B Vaccine (1 of 3 - 3-dose series) Hepatitis B Vaccine (1 of 3 - 3-dose series) [facility] Start: 1988 Hepatitis C screening Hepatitis C Screening [facility] Start: 1988 Lipid panel [facility] Start: 1988 Screening for malignant neoplasm of colon [facility] Start: 1988 Tobacco Screening Tobacco Screening [facility] Start: 1988 Yearly Adult Physical Yearly Adult Physical [facility] Absolute CD8 count procedure [facility] Basophil count [facility] Basophil percent differential count [facility] End: 04-14-2025 BD DXA TRABECULAR BONE SCORE (TBS) BD DXA TRABECULAR BONE SCORE (TBS) Radiology Routine Bony sclerosis Osteopenia of other site Testicular hypofunction 1 Occurrences starting 03/15/2024 until 04/14/2025 [facility] Comment on above: 1 Occurrences starting 03/15/2024 until 04/14/2025 BD DXA TRABECULAR ABI NE SCORE (TBS) BD DXA TRABECULAR BONE SCORE (TBS) Radiology Routine Bony sclerosis Osteopenia of other site Testicular hypofunction 04/01/2024 10:25 AM EDT [facility] CALCIUM, 24 HR URINE CALCIUM, 24 HR URINE Lab Routine Osteopenia of lumbar spine Ordered: 08/10/2024 [facility] Comment on above: Ordered: 08/10/2024 CD3+CD4+ (T4 helper) cells [#/volume] in Blood [facility] CD3+CD4+ (T4 helper) cells/CD3+CD8+ (T8 suppressor cells) cells [# Ratio] in Blood [facility] CD8 percent count [facility] CREATINE 24 HR UR CREATINE 24 HR UR Lab Routine Osteopenia of lumbar spine Ordered: 08/10/2024 [facility] Comment on above: Ordered: 08/10/2024 End: 04-22-2025 CT Abdomen and Pelvis WO contrast CT ABD/PEL WO IVCON Radiology STAT Diarrhea, unspecified type 1 Occurrences starting 03/23/2024 until 04/22/2025 [facility] Comment on above: 1 Occurrences starting 03/23/2024 until 04/22/2025 End: 09-08-2024 CT for calcium scoring WO contrast and CTA W contrast IV Heart and coronary arteries [facility] Service Area Work Phone: Comment on above: Once for 1 Occurrences starting 09/08/19 until 09/08/2024 End: 04-14-2025 DXA Skeletal system.axial Views for bone density DXA-AXIAL SKELETON Radiology Routine Bony sclerosis Osteopenia of other site Testicular hypofunction 1 Occurrences starting 03/15/2024 until 04/14/2025 [facility] Comment on above: 1 Occurrences starting 03/15/2024 until 04/14/2025 DXA Skeletal system.axial Views for bone density DXA-AXIAL SKELETON Radiology Routine Bony sclerosis Osteopenia of other site Testicular hypofunction 04/01/2024 10:25 AM EDT [facility] Work Phone: End: 03-23-2025 EGD DIAGNOSTIC EGD DIAGNOSTIC Endoscopy Routine Dysphagia, unspecified type Heartburn 1 Occurrences starting 03/23/2024 until 03/23/2025 [facility] Comment on above: 1 Occurrences starting 03/23/2024 until 03/23/2025 End: 11-09-2025 EGD DIAGNOSTIC EGD DIAGNOSTIC Endoscopy Routine Heart burn Epigastric abdominal pain 1 Occurrences starting 11/09/2024 until 11/09/2025 [facility] Work Phone: Comment on above: 1 Occurrences starting 11/09/2024 until 11/09/2025 Eosinophil percent differential count [facility] Eosinophils [#/volum e] in Blood [facility] Erythrocyte mean corpuscular volume determination [facility] Granulocyte percent differential count [facility] Hematocrit [Volume Fraction] of Blood [facility] Hemoglobin [Mass/volume] in Blood [facility] Hemoglobin distribution, width determination [facility] Hepatitis A virus Ig M Ab [Presence] in Serum [facility] Hepatitis B core antibody measurement, IgM type [facility] Hepatitis B surface antigen measurement [facility] Hepatitis C antibody measurement [facility] HIV 1 RNA [#/volume] (viral load) in Unspecified specimen by JOSE with probe detection [facility] HIV 1 RNA [Log #/volume] (viral load) in Unspecified specimen by JOSE with probe detection [facility] Immature granulocyte s [#/volume] in Blood [facility] Leukocytes [#/volume ] in Blood [facility] Lymphocyte count [facility] Lymphocyte percent differential count [facility] Mean corpuscular hemoglobin concentration determination [facility] Mean corpuscular hemoglobin determination [facility] Monocyte count [facility] Monocyte percent differential count [facility] MR Brain WO and W contrast IV [facility] End: 2023 Mri lower extrem oth/thn jt w/o & w/contr matr MRI FOOT/TOES WO/W IVCON RT Radiology Routine Mass of right foot 1 Occurrences starting 07/25/2022 until 2023 [facility] Work Phone: Comment on above: 1 Occurrences starting 07/25/2022 until [address] [facility] Neutrophil percent differential count [facility] Patient Education [facility] Work Phone: Patient referral [facility] Work Phone: Percentage CD4 (T4 cells) count [facility] Platelet count [facility] End: 07-25-2023 PVR ANK [facility]ESS [facility] Vascular Lab Routine Soft tissue mass Diminished pulses in lower extremity Mass of right foot 1 Occurrences starting 07/25/2022 until 07/25/2023 [facility] Work Phone: Comment on above: 1 Occurrences starting 07/25/2022 until 07/25/2023 Red blood cell count [facility] Reticulocyte percent count [facility] End: 03-23-2025 Screening colonoscopy COLONOSCOPY SCREENING Endoscopy Routine History of colonic polyps Encounter for screening for malignant neoplasm of colon 1 Occurrences starting 03/23/2024 until 03/23/2025 [facility] Work Phone: Comment on above: 1 Occurrences starting 03/23/2024 until 03/23/2025 End: 11-09-2025 Screening colonoscopy COLONOSCOPY SCREENING Endoscopy Routine History of colonic polyps 1 Occurrences starting 11/09/2024 until 11/09/2025 [facility] Comment on above: 1 Occurrences starting 11/09/2024 until 11/09/2025 Sodium [Moles/time] in 24 hour Urine SODIUM 24 HR URINE Lab Routine Osteopenia of lumbar spine Ordered: 08/10/2024 [facility] Comment on above: Ordered: 08/10/2024 SURGICAL PATHOLOGY SURGICAL PATH OLOGY Lab Routine Dysphagia, unspecified type Gastroesophageal reflux disease, unspecified whether esophagitis present History of colonic polyps Encounter for screening for malignant neoplasm of colon Heartburn Release Upon Ordering for 1 Occurrences starting 07/02/2024 [facility] Work Phone: Comment on above: Release Upon Ordering for 1 Occurrences starting 07/02/2024 Tissue Pathology bio psy report [facility] Work Phone: Comment on above: Release Upon Ordering for 1 Occurrences starting 11/24/2024, 1 completed End: 04-14-2025 XR Bones Complete Survey Views XR BONE SURVEY ROUTINE Radiology Routine Bony sclerosis 1 Occurrences starting 03/15/2024 until 04/14/2025 [facility] Work Phone: Comment on above: 1 Occurrences starting 03/15/2024 until 04/14/2025 XR Bones Complete Survey Views XR BONE SURVEY ROUTINE Radiology Routine Bony sclerosis 03/15/2024 3:22 PM EDT [facility] [place] [facility] Immunizations Immunization Date Immunization Notes Care Provider Gretchen lynch 08-01-2023 tetanus toxoid, redu bryanna diphtheria toxoid, and acellular pertussis vaccine, adsorbed [facility] 06-28-2014 tetanus toxoid, redu bryanna diphtheria toxoid, and acellular pertussis vaccine, [facility] Payers Date Payer Category Payer Unknown [id number] 2023 Self-pay [id number] 2021 Medicaid [id number] 2021 Medicaid (Managed Care) [facility] PLAN [id number] 2021 Unknown [id number] 2014 Private Health Insurance [employer] PPO [id number] 2014-Present PPO [id number] 2011 Private Health Insurance [id number] 1988 Unknown [id number] 2.840.1.804348.3.579.2. 1249 1988 Unknown [id number]. 651 1988 Unknown [id number]. 627 1988 Unknown [id number]. 1243 Unknown [id number] .840.1.104606.3.579.2. 531 Unknown [id number] 2.840.1.247787.3.579.2. 462 Unknown [id number] 2.16840.1.846709.3.579.2. 462 Unknown [id number] 2.16840.1.122421.3.579.2. 462 Unknown [id number] 2.840.1.784629.3.579.2. 462 Unknown [id number] 2.16.840.1.154209.3.579.2. 462 Unknown [id number] 2.16.840.1.855266.3.579.2. 462 Unknown [id number] 2.16.840.1.601268.3.579.2. 462 Unknown [id number] 2.16.840.1.048781.3.579.2. 462 Unknown [id number] 2.16.840.1.462354.3.579.2. 462 Unknown [id number] 2.16.840.1.297511.3.579.2. 462 Unknown [id number] 2.16840.1.984304.3.579.2. 462 Unknown [id number] 2.16.840.1.667957.3.579.2. 462 Unknown [id number] 2.16840.1.914373.3.579.2. 462 Unknown [id number] 2.16840.1.467453.3.579.2. 462 Unknown [id number] 2.16.840.1.893676.3.579.2. 462 Unknown [id number] 2.16.840.1.074383.3.579.2. 462 Unknown [id number] 2.16840.1.124920.3.579.2. 462 Unknown [id number] 2.16.840.1.910976.3.579.2. 462 Unknown [id number] 2.16.840.1.833666.3.579.2. 462 Unknown [id number] 2.16.840.1.283443.3.579.2. 462 Unknown [id number] 2.16.840.1.132359.3.579.2. 462 Unknown [id number] 2.16.840.1.763066.3.579.2. 462 Unknown [id number] 2.16840.1.461509.3.579.2. 462 Social History Date Type Detail Facility Start: 06-19-2015 End: 05-17-2024 Tobacco smoking status NHIS Current every day smoker [facility] Start: 03-15-2004 History of tobacco use Cigarette Smo ker [facility] Start: 06-19-2015 End: 02-27-2023 Cigarettes smoked current (pack per day) - Reported [facility] Start: 06-19-2015 End: 06-07-2024 Tobacco use and exposure Never used [facility] Start: 06-19-2015 End: 06-19-2022 Alcohol intake Not Asked [facility] Start: 1988 Sex Assigned At Not on file C [facility] Start: 01-17-2022 End: 11-26-2023 Tobacco smoking status MAIS Unknown if ever smoked [facility] Start: 07-27-2021 None [facility] Start: 1988 Sex Assigned At Male W [facility] Start: 06-09-2022 End: 09-08-2024 Exposure to SARS-CoV-2 (event) Not sure [facility] Work Phone: Start: 07-25-2022 End: 11-24-2024 Alcohol intake Current drinker of alcohol (finding) [facility] Start: 07-25-[address] [facility] Start: 01-28-2023 End: 03-23-2024 Alcohol intake Ex-drinker (finding) [facility] Start: 01-28-2023 End: 02-27-2023 Tobacco use panel [facility] National Score (1-10 0), lower number is lower risk 70 [facility] Start: 01-28-2023 Gender identity Identifies as male gender (finding) [facility] Start: 04-10-2022 Sexual orientation Homosexual (findi ng) [facility] Start: 11-13-2023 Tobacco smoking stat us NHIS Smoker (finding) [facility] Tobacco smoking status No Smokin g Status Entered [facility] History of tobacco use Passive smoker [facility] Start: 10-30-2024 Sex Male (finding) [facility] Has the electric, ga s, oil, or water company threatened to shut off services in your home in past 12Mo No [facility] (I/We) worried jarrod er (my/our) food would run out before (I/we) got money to buy more. Never true [facility] Goals Date Patient Goal Desired Activity /State Functional Status Date Assessment Result Facility 11-27-2024 Are you deaf, or do you have serious difficulty hearing No 11/27/2024 1:53 PM Lauren Wooten, ASHISH No [facility] 11-27-2024 Are you blind, or do you have serious difficulty seeing, even when wearing glasses No 11/27/2024 1:53 PM Lauren Wooten, ASHISH No [facility] 11-27-2024 Do you have serious difficulty walking or climbing stairs No 11/27/2024 1:53 PM Lauren Wooten, ASHISH No [facility] 11-27-2024 Do you have difficul ty dressing or bathing No 11/27/2024 1:53 PM Lauren Wooten, ASHIHS No [facility] 11-27-2024 Because of a physica l, mental, or emotional condition, do you have difficulty doing errands alone such as visiting a physician's office or shopping No 11/27/2024 1:53 PM Lauren Wooten, ASHISH No [facility] 08-28-2023 Functional status Activity Abili ty 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 Assist [facility] Work Phone: Mental Status Date Assessment Result Facility 11-27-2024 Because of a physica l, mental, or emotional condition, do you have serious difficulty concentrating, remembering, or making decisions No 11/27/2024 1:53 PM Lauren Wooten, ASHISH No [facility] 08-28-2023 Cognitive function Appropriate [facility] Work Phone: 08-27-2023 Cognitive function Level Of Cons ciousness Awake;Alert;Appropriate;Fol lows Commands [facility] Work Phone: 09-02-2022 Cognitive function Level Of Cons ciousness Awake;Alert;Appropriate;Fol lows Commands [facility] Work Phone: 01-19-2022 Cognitive function Level Of Cons ciousness Awake;Alert;Appropriate;Fol lows Commands [facility] Work Phone: Clinical Notes 07-03-2015 to 12-09-2024 Deborah Kendall MD - 11/24/2024 11:30 AM Deborah Allen MD - 11/24/2024 11:30 AM Deborah Allen MD - 11/24/2024 11:30 AM Deborah Allen MD - 11/24/2024 11:30 AM EDT Note Date & Type Note Facility 12-09-2024 Note HNO ID: [id number] Author: LEILA MENARD HUC Service: ? Author Type: [employer] Type: Progress Notes Filed: 12/09/2024 08:33 Note Text: Incidental Lung Nodule Enrollment Outreach attempt: 1st Attempt Outreach status: Complete Enrolled in Lung Nodule program: Yes Date of enrollment: 12/09/2024 Lung Nodule outreach: Enrolled Lung Nodule Program Location: [place] 12/30/24 scheduled [facility] 12-09-2024 Note Patient Outreach (PU LMMN) FAUSTINO UNGER ([id number]) 1990 Date Time Provider Department 12/09/24 LEILA MENARD During your visit today, we recorded the following information about you: Leila Menard HUC 12/09/2024 8:33 AM Signed Incidental Lung Nodule Enrollment Outreach attempt: 1st Attempt Outreach status: Complete Enrolled in Lung Nodule program: Yes Date of enrollment: 12/09/2024 Lung Nodule outreach: Enrolled Lung Nodule Program Location: [place] 12/30/24 scheduled Allergies As of Date: 12/09/2024 Noted Allergy Reaction ANTIHISTIMINE 06/19/2015 1 - Mental Status Change METOCLOPRAMIDE 01/28/2019 1 - Mental Status Change MOBIC (MELOXICAM) 08/31/2023 10 - Anaphylaxis PROCHLORPERAZINE 01/28/2019 1 - Mental Status Change ZOLOFT (SERTRALINE) 11/24/2024 14 - Other: See Comments Comments: Chest pain, arrhythmia SHELLFISH DERIVED 03/21/2022 6 - Diarrhea Date Reviewed: 12/08/2024 Reviewed by: Toya Amaro LPN - Fully Assessed Prescriptions as of 12/09/2024 - propranolol (INDERAL) 20 mg tablet Take 1 tablet by mouth once daily. - amLODIPine (NORVASC) 5 mg tablet Take 1 tablet by mouth once daily. - pantoprazole DR (PROTONIX) 40 mg tablet TAKE 1 TABLET BY MOUTH EVERY DAY - aspirin 81 mg chewable tablet 1 tablet by ORAL/FEEDING TUBE route once daily. - atorvastatin (LIPITOR) 40 mg tablet 1 tablet by ORAL/FEEDING TUBE route daily at bedtime. - Tadalafil (CIALIS) 5 mg tablet Take 1 tablet by mouth once daily. - FLUoxetine (PROZAC) 40 mg capsule Take 1 capsule by mouth once daily. - busPIRone (BUSPAR) 10 mg tablet Take 10 mg by mouth two times a day. - Melatonin 5 mg cap Take 1-2 capsules by mouth at bedtime as needed for insomnia. - multivitamin tablet Take 1 tablet by mouth once daily. - acetaminophen (TYLENOL) 325 mg tablet Take 1-2 tablets by mouth every 4 hours as needed for pain. - BIKTARVY 50-200-25 mg per tablet Take 1 tablet by mouth every afternoon. - Lactobac no.41/Bifidobact no.7 (PROBIOTIC-10 ORAL) Take 1 tablet by mouth once daily. - cholecalciferol (VITAMIN D3) 50 mcg (2,000 unit) tablet Take 2,000 Units by mouth once daily. - albuterol HFA (PROVENTIL HFA, VENTOLIN HFA) 90 mcg/actuation inhaler Inhale 2 Puffs as instructed every 6 hours as needed. Problem List As Of Date 12/09/2024 Noted Resolved Kidney stone [N20.0] 07/05/2015 Renal cyst [N28.1] 07/05/2015 Penile pain [N48.89] 12/04/2015 Dysphagia [R13.10] 07/02/2024 Encounter for screening for malignant neoplasm *07/02/2024 Heartburn [R12] 07/02/2024 History of colonic polyps [Z86.0100] 07/02/2024 Thrombolytic medication administered within las*11/24/2024 Hypoglycemia [E16.2] 11/24/2024 Nicotine use disorder, F17.2 [F17.200] 11/25/2024 Stroke aborted by administration of thrombolyti*11/27/2024 Encounter Status:Closed by LEILA MENARD on 12/09/24 [facility] 12-08-2024 Note HNO ID: [id number] Author: MARCEL NICHOLS APRN.SSIS DEVELOPER Service: ? Author Type: Nurse Practitioner Type: Progress Notes Filed: 12/08/2024 16:50 Note Text: SUBJECTIVE: Faustino Unger is a 34 year old male here today for an annual physical. I reviewed his past medical, surgical, social, and family histories today and updated chart. Allergies, chronic medications, and supplements were also reviewed and his list in the chart is now up to date. Concern(s) today include: weight gain, lung nodules Weight Gain: - Notable weight gain since recent hospitalization. - Reports clothes increasingly not fitting. - notes significant increase in food intake; attempting to eat healthier. - Recent increase in waist size from 30 to 34 inches; previously maintained a waist size of 28-30 inches. - Observes swelling in legs, more pronounced in one leg. - Denies chest pain or dyspnea. Urinary retention/frequency: - Reports frequent nocturia. - Describes urine as having a sediment appearance, resembling an unraveled cotton ball. - Experiences incomplete bladder emptying since April after nasal surgery. - Denies dysuria and concern for STD's - previous UA during admission was negative. symptoms have not changed since Hypertension: - Family history of HTN. - Previously on propranolol 20mg daily and valsartan 160mg; discontinued due to systolic 110-120 during acute ischemic stroke admission - Propranolol started November 2023; valsartan started late last summer. - Reports feeling sluggish and experiencing severe gastritis with valsartan as well as losartan - Notes BP increases with weight gain. - No current home BP monitoring. Polycystic Kidney Disease: - Diagnosed with PKD - Right kidney reportedly enlarged per field assembly supervisor Dr. Skye Lopez. - Upcoming nephrology appointment tomorrow. is discussing possible medication treatment to stabilize cyst size per pt Cerebrovascular Accident: - Recent CVA; upcoming neurology appointment on December 10. 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 - was started on 81mg ASA and 40mg Atorvastatin HIV: - Managed with Biktarvy, prescribed by Dr. Downs, infectious disease specialist in [place]. Anxiety and Depression: - Managed with BuSpar 10 mg BID and Prozac 40 mg daily, prescribed by provider at [facility] Lifestyle: - Smokes approximately 1/4 pack per day; also vapes. - No alcohol or drug use. - Engages in light physical activity, such as walking in the park; no gym attendance. Last 5 Encounter Wt Readings: Date: Wt: 12/08/2024 78 kg (171 lb 15.3 oz) 11/24/2024 78.3 kg (172 lb 9.9 oz) 11/24/2024 80.3 kg (177 lb) 11/24/2024 75.3 kg (166 lb) 11/09/2024 75.3 kg (166 lb) His medications were reviewed today and his list is now up to date. He is compliant on taking his medications :Yes He is tolerating his medication(s) without side effects: Yes He is following an appropriate diet for his medical problems: Yes He is getting some exercise in? Yes Social History Tobacco Use Smoking status: Every Day Current packs/day: 0.25 Average packs/day: 0.3 packs/day for 20.7 years (5.2 ttl pk-yrs) Types: Cigarettes Start date: 03/15/2004 Passive exposure: Current Smokeless tobacco: Never Vaping Use Vaping status: Some Days Substances: Nicotine, Flavoring Substance Use Topics Alcohol use: Yes Comment: rarely Drug use: Never REVIEW OF SYSTEMS: Problems with vision? No, chronic floaters Problems with hearing? tinnitus Chest pains? No Shortness of breath? No Changes in bowel function? No Changes in urination? No Changes in mood? No PHYSICAL EXAMINATION: BP 149/99 Pulse 102 Ht 172.7 cm (5' 8) Wt 78 kg (171 lb 15.3 oz) SpO2 97% BMI 26.15 kg/m? BMI 26.15 kg/(m2) Labs: - Urinalysis: Negative for bacterial infection, no concern for UTI Imaging: - Echocardiogram: Ejection fraction 71% (normal) - (August) CT Chest with Calcium Scoring: Score 0, no calcifications, nodules identified in the right lung with short interval follow-up recommended - Ultrasound of Kidneys: Right kidney enlargement General appearance: Well appearing, alert, in no acute distress, well-hydrated, well nourished. Skin: Skin color, texture, turgor normal, no suspicious rashes or lesions Head: Normocephalic, no masses, lesions, tenderness or abnormalities Eyes: Anicteric sclera. Pupils are equally round and reactive to light. Extraocular movements are intact. Ears: External ears normal, canals clear Nose/Sinuses: Nares normal, septum midline, mucosa normal, no drainage or sinus tenderness Oropharynx: Lips, mucosa, and tongue normal, teeth and gums normal, oropharynx normal Neck: Supple, no adenopathy; thyroid symmetric, normal size, no bruits Lungs: Lungs clear to auscultation. No wheezing, rhonchi, rales. Heart: RRR without murmur, gallop, (more content not included)... [facility] 11-27-2024 Note HNO ID: [id number] Author: NED KENNY MD Service: Hospital Medicine Author Type: Physician Type: Progress Notes Filed: 11/29/2024 11:06 Note Text: Documentation Query Please clarify the Diagnosis associated with clinical indicators Metabolic Encephalopathy This document will become part of the patient's medical record. [facility] 11-27-2024 Note HNO ID: [id number] Author: NED KENNY MD Service: Hospital Medicine Author Type: Physician Type: Progress Notes Filed: 11/29/2024 10:54 Note Text: Documentation Query Please clarify the Type of CHF: Other No CHF This document will become part of the patient's medical record. [facility] 11-27-2024 Note HNO ID: [id number] Author: LEANDRO MARI LSW Service: Care Management Author Type: Engraver Wood Type: Care Mgt Progress Note Filed: 11/27/2024 14:10 Note Text: CARE MANAGEMENT PROGRESS NOTE SERVICE DATE: 11/27/2024 SERVICE TIME: 2:10 PM LOS: 3 days Post-Acute Discharge Planning Patient Goal(s): Independent living, Be able to go home, General wellness [place] Explained: Discharge Planning Participant(s): Patient/Family Comments: Anticipated # of Days Until Discharge: 4 Transport at Discharge: Family to transport home Needs Prior to Discharge: Needs Prior to Discharge: Ready for Discharge Post-Acute Discharge Plan: Patient discharging home with self care. Summary of care completed. SIGNATURE: TYRELL Deluca PATIENT NAME: Faustino Unger DATE: November 27, 2024 TIME: 2:10 PM [facility] 11-26-2024 Note HNO ID: [id number] Author: NED KENNY MD Service: Hospital Medicine Author Type: Physician Type: Progress Notes Filed: 11/26/2024 17:10 Note Text: DEPARTMENT OF HOSPITAL MEDICINE Hospital Medicine/Primary Attending: Ned Kenny MD NIGHT AND WEEKEND COVERAGE: After 7pm please page [phone] MEDICATIONS: Current Facility-Administered Medications Medication Dose Route Frequency senna-docusate 8.6-50 mg 1 tablet (SENNA-S) 1 tablet ORAL/FEEDING TUBE BID bisacodyl 10 mg suppository (DULCOLAX) 10 mg RECTAL DAILY PRN ondansetron (PF) 4 mg injection (ZOFRAN) 4 mg INTRAVENOUS q 4 H PRN NaCl 0.9% iv flush bag 20 mL INTRAVENOUS PRN atorvastatin 40 mg tab(s) (LIPITOR) 40 mg ORAL/FEEDING TUBE AT BEDTIME sodium chloride 0.9 % (flush) 2-10 mL (BD POSIFLUSH) 2-10 mL INTRAVENOUS DIRECTED PRN And perflutren lipid microspheres 1.1 mg/mL 1.3 mL injection (DEFINITY) 1.3 mL INTRAVENOUS DIRECTED PRN dextrose 15 gram/32 mL 15 g (TRUEPLUS) 15 g ORAL PRN Or glucagon 1 mg injection 1 mg INTRAMUSCULAR PRN Or dextrose 10% iv bolus 12.5 g INTRAVENOUS PRN ufslqvxrioy-ffoohgjcqmjff-wovreppz r alafenamide 50-200-25 mg 1 tablet (BIKTARVY) 1 tablet ORAL DAILY WITH BREAKFAST FLUoxetine 40 mg cap(s) (PROzac) 40 mg ORAL/FEEDING TUBE DAILY pantoprazole DR 40 mg tab(s) (PROTONIX) 40 mg ORAL DAILY (6 AM) acetaminophen 650 mg tab(s) (TYLENOL) 650 mg ORAL/FEEDING TUBE q 4 H PRN busPIRone 10 mg tab(s) (BUSPAR) 10 mg ORAL/FEEDING TUBE BID heparin 5,000 Units injection 5,000 Units SUBCUTANEOUS q 8 H aspirin 81 mg chewable tab(s) 81 mg ORAL/FEEDING TUBE DAILY DATA: Diagnostic tests reviewed for today's visit: Lab data: CBC: Recent Labs 11/26/2460711/25/2422611/24/24 1143 WBC 5.33 7.92 6.71 HB 14.3 13.7 13.5 HCT 42.2 40.0 41.6 PLT 232 227 245 MCV 91.7 92.0 93.5 RDWCV 13.9 13.9 13.9 NEUTP -- -- 48.0 ABSNEUT -- -- 3.22 LYMPHP -- -- 35.3 MONOP -- -- 12.4 EODINP -- -- 3.6 COAG: Recent Labs 11/25/24114611/24/24 1143 APTT 21.8* 25.1 INR 1.0 1.0 BMP: Recent Labs 11/26/2460711/25/2422611/24/24 1143 GLUC 98 89 59* NA 140 141 139 K 4.1 3.6* 4.1 CHLOR 103 106 104 CO2 27 24 28 ANION 10 11 7* BUN 10 7* 7* CREAT 0.83 0.84 0.88 CHEM: Recent Labs 11/26/2460711/25/2422611/24/24 1143 ALB -- -- 3.9 TPROT -- -- 6.5 CA 8.8 9.0 8.8 MG 1.8 1.7 -- HEPATIC: Recent Labs 11/24/24 1143 ALKPHOS 84 ALT 18 AST 21 TBILI 0.4 URINALYSIS: Recent Labs 11/25/24 0005 SPGR 1.021 UGLUC Negative UBILI Negative UKET Negative UHB Negative UPROT Negative UWBC 0-5 /HPF CARDIAC: No results for input(s): PBNP in the last 168 hours. Problem List Stroke-like symptoms (POA: Yes) Heartburn (POA: Yes) History of colonic polyps (POA: Yes) Thrombolytic medication administered within last 5 days (POA: Yes) Hypoglycemia (POA: Yes) Nicotine use disorder, F17.2 (POA: Status not on file) PHYSICAL EXAM: BP 114/74 Pulse 66 Temp (Src) 98.6 (Oral) Resp 16 Ht 5' 8 (1.73m) Wt 172 lb 9.9 oz (78.3kg) SpO2 98% BMI 26.25 kg/(m2). O2 Therapy: Room Air Follow up : Pt seen and examined. Feeling well, states he is back to baseline, left sided weakness resolved. Constitutional - Vitals as above, NAD Respiratory - Clear to auscultate both sides. No crackles, wheezes or rales, No labored breathing noted CVS- RRR, no murmur/gallop/rub, pulse 2+ GI- NTND, bowel sounds normally heard HOSPITAL COURSE: Faustino Unger is a 34 year old male with history of HIV on HAART therapy, APKD, HTN, tobacco abuse, colon polyps who presented to outside hospital 11/24 for elective EGD for recent melena (findings consistent with gastritis). Following the procedure there was concern for acute L facial droop and left sided weakness, NIHSS of 12, transferred here for stroke workup and was monitored in neuro ICU initially. NCCT head and CTA head/neck were unremarkable. Given disabling deficits, decision made to administer IV TNK despite recent GI procedure (benefits felt to outweigh risks). Subsequently patient's symptoms improved. Neurology evaluated. Acute left sided weakness concerning for acute ischemic stroke S/p TNK with improvement in symptoms HIV Recent melena and gastritis noted on EGD Tobacco abuse HTN Mood disorder -MRI brain pending. Echo reviewed, preserved EF, mild LVH. Neuro checks per protocol. Appreciate neurology recs -Telemetry monitoring -Cont ASA, atorvastatin 40 mg daily. 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 [facility] 11-26-2024 Note HNO ID: [id number] Author: NOREEN LOPEZ RN Service: Care Management Author Type: Registered Nurse Type: Care Mgt Progress Note Filed: 11/26/2024 16:02 Note Text: CARE MANAGEMENT PROGRESS NOTE SERVICE DATE: 11/26/2024 SERVICE TIME: 4:01 PM LOS: 2 days Notes reviewed, anticipating home at D/C. Therapy rec is home. Pt to return home with family, they will transport when ready. SIGNATURE: Noreen Lopez RN PATIENT NAME: Faustino Unger DATE: November 26, 2024 TIME: 4:01 PM [facility] 11-25-2024 Note HNO ID: [id number] Author: YORDAN ABEL RN Service: Nursing Author Type: Registered Nurse Type: Nursing Progress Note Filed: 11/25/2024 18:16 Note Text: Patient transferred to [facility] in stable condition. [facility] 11-25-2024 Note HNO ID: [id number] Author: JADYN BUI [facility] Service: Pharmacy Author Type: Pharmacist Type: Plan of Care Filed: 11/26/2024 15:09 Note Text: PHARMACY MEDICATION REVIEW Patient Name: Faustino Unger : 1990 The following medications were updated within the [facility] medication list: Medications ADDED to [facility] medication list SUMAtriptan (IMITREX) 50 mg tablet Take 50 mg by mouth as needed for migraine headache (see administration instructions). Tadalafil (CIALIS) 5 mg tablet Take 1 tablet by mouth once daily. Medications CHANGED on [facility] medication list Medications REMOVED from [facility] medication list topiramate (TOPAMAX) 50 mg tablet Adjust Sig - Block E-Cancel Additional comments: Verified medication information with e-scripts/dispense report and chart review. Confirmed medications with patient. Patient stated not taking Topamax - removed from med list. Patient stated taking sumatriptan and tadalafil - added to med list. Required follow up actions for nursing: None The below information represents the best possible medication history: Yes Medication history completed by: Water Service Dispatcher: Eden Perez (Regulatory Leader) Source of history: Patient: Reliability of source: Appears reliable, clearly identified: Medication name, Medication dose, Medication route, and Medication frequency, Pharmacy records: e-scripts/dispense report, and [facility] records Medication nonadherence identified: No barriers noted Reconciliation completed: Yes Completed by: Jadyn Bui, PharmD, [facility] Nursing Unit Based Pharmacist Ext: [phone] All [facility] medications addressed by LIP Patient interested in Bedside Delivery Services or using OP Pharmacy at discharge? Unable to assess Preferred outpatient pharmacy: e- [id number] [place] [address] - [phone] - [phone] [phone] Allergies: Antihistimine Mental Status Change Metoclopramide Mental Status Change Mobic [Meloxicam] Anaphylaxis Prochlorperazine Mental Status Change Zoloft [Sertraline] Other: See Comments Comment:Chest pain, arrhythmia Shellfish Derived Diarrhea Prior to Admission Medications Prescriptions Last Dose Informant Patient Reported? Taking? BIKTARVY 50-200-25 mg per tablet Yes Yes Sig: Take 1 tablet by mouth every afternoon. FLUoxetine (PROZAC) 40 mg capsule Yes Yes Sig: Take 1 capsule by mouth once daily. Lactobac no.41/Bifidobact no.7 (PROBIOTIC-10 ORAL) Yes Yes Sig: Take 1 tablet by mouth once daily. Melatonin 5 mg cap Yes Yes Sig: Take 1-2 capsules by mouth at bedtime as needed for insomnia. SUMAtriptan (IMITREX) 50 mg tablet Yes Yes Sig: Take 50 mg by mouth as needed for migraine headache (see administration instructions). Tadalafil (CIALIS) 5 mg tablet Yes Yes Sig: Take 1 tablet by mouth once daily. acetaminophen (TYLENOL) 325 mg tablet No Yes Sig: Take 1-2 tablets by mouth every 4 hours as needed for pain. albuterol HFA (PROVENTIL HFA, VENTOLIN HFA) 90 mcg/actuation inhaler Yes Yes Sig: Inhale 2 Puffs as instructed every 6 hours as needed. busPIRone (BUSPAR) 10 mg tablet Yes Yes Sig: Take 10 mg by mouth two times a day. cholecalciferol (VITAMIN D3) 50 mcg (2,000 unit) tablet Yes Yes Sig: Take 2,000 Units by mouth once daily. multivitamin tablet Yes Yes Sig: Take 1 tablet by mouth once daily. pantoprazole DR (PROTONIX) 40 mg tablet No Yes Sig: Take 1 tablet by mouth once daily. propranolol (INDERAL) 20 mg tablet Yes Yes Sig: Take 20 mg by mouth once daily. valsartan (DIOVAN) 160 mg tablet Yes Yes Sig: Take 160 mg by mouth once daily. Facility-Administered Medications: None Eden Perez (Regulatory Leader)[id number] 11/25/2024 I have reviewed and agree with the medication history note completed by the as documented above. All medications reviewed and reconciled appropriately. Jadyn Bui, SylvainD, [facility] Nursing Unit Based Pharmacist Ext: [phone] [facility] 11-25-2024 Note HNO ID: [id number] Author: PHAN SILVERIO LSW Service: Care Management Author Type: Engraver Wood Type: Care Mgt Progress Note Filed: 11/25/2024 16:07 Note Text: CARE MANAGEMENT PROGRESS NOTE SERVICE DATE: 11/25/2024 SERVICE TIME: 4:06 PM LOS: 1 day SW Consult Chart reviewed. SW attempted to meet with pt at bedside to complete stroke depression screen, another discipline at bedside. SIGNATURE: TYRELL Turcios PATIENT NAME: Faustino Unger DATE: November 25, 2024 TIME: 4:06 PM [facility] 11-25-2024 Note HNO ID: [id number] Author: MIKEL LABOY RN Service: Care Management Author Type: Registered Nurse Type: Care Mgt Initial Assessment Filed: 11/25/2024 09:46 Note Text: CARE MANAGEMENT: ASSESSMENT AND DISCHARGE PLAN SERVICE DATE: November 25, 2024 SERVICE TIME: 9:40 AM PCP: No (History) Pcp Primary Contact: Extended Emergency Contact Information Primary Emergency Contact: Addie Flores Address: [address] [place] [address] OF [place] Mobile Relation: Father Admission Status: Inpatient Insurance Provider: [employer]ICA[employer] Discharge Planning requested by: Per Department Practice Potential Transition Plans To Be Determined Advance Directives Current Advance Directive: None Training And Development Project Leader Attempted to Assist with AD Completion: Yes Action: Education Provided Current Living Arrangements and Support Lives with: Friends Type of Residence: Private Residence (House) Support: Family members, Friends/neighbors How do you manage to accomplish the following: Independent: Ambulation, Bathe/Shower, Dress, Meals/Meal Prep, Going to the bathroom, Medication Management, Transportation to appointments/community Current Services/Equipment Current Post-Acute Service(s): None Discharge Planning Patient Goal(s): Independent living, Be able to go home, General wellness [place] Explained: [place] Given: No Reason Not Given: Unable to complete with this assessment - revisit Are you interested in bedside delivery of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 Pressure 136/99 H 127/97 H Blood Pressure [Lying] Blood Pressure [Sitting (for 1 minute prior to obtaining)] Blood Pressure [Standing (for 1 minute prior to obtaining)] Blood Pressure Mean 111 107 Blood Pressure Mean [Lying] Blood Pressure Mean [Sitting (for 1 minute prior to obtaining)] Blood Pressure Mean [Standing (for 1 minute prior to obtaining)] Blood Pressure Source Blood Pressure Position Blood Pressure Location Pulse Ox 100 100 Oxygen Delivery Method Room Air 08/27/23 21:51 08/27/23 22:03 08/27/23 22:04 Temperature Temperature Source Pulse Rate 98 98 Pulse Rate [Lying] 100 Respiratory Rate 17 21 H Respiratory Effort Respiratory Depth Respiratory Pattern Blood Pressure 147/97 H 134/88 H Blood Pressure [Lying] 129/79 H Blood Pressure [Sitting (for 1 minute prior to obtaining)] 126/84 H Blood Pressure [Standing (for 1 minute prior to obtaining)] 134/88 H Blood Pressure Mean 113 103 Blood Pressure Mean [Lying] 95 Blood Pressure Mean [Sitting (for 1 minute prior to obtaining)] 98 Blood Pressure Mean [Standing (for 1 minute prior to obtaining)] 103 Blood Pressure Source Blood Pressure Position Blood Pressure Location Pulse Ox 100 100 Oxygen Delivery Method Room Air 08/28/23 00:12 08/28/23 00:30 08/27/23 23:55 Temperature 97.9 F Temperature Source Temporal Pulse Rate 98 Pulse Rate [Lying] Respiratory Rate 15 Respiratory Effort Normal Non-Labored Respiratory Depth Normal Respiratory Pattern Normal Blood Pressure 124/85 H Blood Pressure [Lying] Blood Pressure [Sitting (for 1 minute prior to obtaining)] Blood Pressure [Standing (for 1 minute prior to obtaining)] Blood Pressure Mean 98 Blood Pressure Mean [Lying] Blood Pressure Mean [Sitting (for 1 minute prior to obtaining)] Blood Pressure Mean [Standing (for 1 minute prior to obtaining)] Blood Pressure Source Monitor Blood Pressure Position Sitting Blood Pressure Location Right Arm Pulse Ox 99 99 99 Oxygen Delivery Method Room Air Room Air Room Air 08/28/23 05:36 08/28/23 08:07 08/28/23 07:05 Temperature 98 F Temperature Source Temporal Pulse Rate 70 Pulse Rate [Lying] Respiratory Rate 14 Respiratory Effort Normal Non-Labored Respiratory Depth Normal Respiratory Pattern Normal Blood Pressure 116/77 Blood Pressure [Lying] Blood Pressure [Sitting (for 1 minute prior to obtaining)] Blood Pressure [Standing (for 1 minute prior to obtaining)] Blood Pressure Mean 90 Blood Pressure Mean [Lying] Blood Pressure Mean [Sitting (for 1 minute prior to obtaining)] Blood Pressure Mean [Standing (for 1 minute prior to obtaining)] Blood Pressure Source Monitor Blood Pressure Position Supine Blood Pressure Location Right Arm Pulse Ox 94 98 Oxygen Delivery Method Room Air Room Air 08/28/23 09:45 Temperature 98.6 F Temperature Source Oral Pulse Rate 73 Pulse Rate [Lying] Respiratory Rate 14 Respiratory Effort Respiratory Depth Respiratory Pattern Blood Pressure 112/60 Blood Pressure [Lying] Blood Pressure [Sitting (for 1 minute prior to obtaining)] Blood Pressure [Standing (for 1 minute prior to obtaining)] Blood Pressure Mean 77 Blood Pressure Mean [Lying] Blood Pressure Mean [Sitting (for 1 minute prior to obtaining)] Blood Pressure Mean [Standing (for 1 minute prior to obtaining)] Blood Pressure Source Monitor Blood Pressure Position Semi-Fowlers Blood Pressure Location Right Arm Pulse Ox 99 Oxygen Delivery Method Room Air Weight Weight: 65.6 kg Body Mass Index (BMI) 21.9 EEG Results Procedure Details EEG Procedure Details: This routine EEG is normal and was performed mostly during sleep state. No epileptiform activity or seizures were noted during this period of recording. Physical Exam Narrative -? General: Laying comfortably in bed; in no acute distress. -? HENT: Normal oropharynx and mucosa. Normal external appearance of ears and nose. Exophthalmos. -? Neck: Supple, no pain or tenderness -? CV:? No peripheral edema. -? Pulmonary:? Normal respiratory effort. -? Ext: No cyanosis, edema, or deformity -? Skin: No rash. Normal palpation of skin.? -? Musculoskeletal: full range of motion; no joint tenderness. Normal digits and nails by inspection. No clubbing. -? NEURO: -? Mental Status: The patient was alert and oriented to time, place, andperson. Normal recent/remote memory, concentration, and general fund of knowledge. -? Language: speech is clear.? Naming, repetition, fluency, and comprehension intact. -? Cranial Nerves: PERRL 3mm/brisk. EOMI, visual byrd full, no facial asymmetry, facial sensation diminished on the V2, hearing intact, tongue midline -? Motor: normal bulk, tone, and strength throughout. No pronator drift or satelliting. Upper and lower extremities equal bilaterally. R L SA 5 5- EE 5 5- EF 5 5- WE WF [employer] 5 5 HF KE 5 4 KF 5 4 DF 5 4 PF -? Tone: is normal and bulk is normal -? Sensation- diminished on the L arm and leg -? Coordination: No dysmetria on [id number], finger follow finger or oeby-dzyz-[id number]. -? Gait- deferred. Lab / Micro Data 08/27/23 16:58 08/27/23 16:58 Labs: Laboratory Results - last 24 hr 08/27/23 16:58: WBC 7.3, RBC 4.65, Hgb 14.7, Hct 43.2, MCV 92.9, MCH 31.6, MCHC 34.0, RDW Std Deviation 45.1 H, RDW Coeff of Carlyn 13.2, Plt Count 243, MPV 8.4, Immature Gran % (Auto) 0.300, Neut % (Auto) 55.9, Lymph % (Auto) 29.0, Arthur % (Auto) 11.4 H, Eos % (Auto) 2.6, Baso % (Auto) 0.8, Absolute Neuts (auto) 4.1, Absolute Lymphs (auto) 2.10, Nucleated RBC % 0, Sodium 141, Potassium 3.7, Chloride 110 H, Carbon Dioxide 28.0, Anion Gap 3 L, BUN 12, Creatinine 0.87, Estim Creat Clear Calc 109.96, Est GFR (MDRD) Af Amer 129, Est GFR (MDRD) Non-Af 107, BUN/Creatinine Ratio 13.8, Glucose 88, Calcium 9.6, Total Bilirubin 0.60, AST 17, ALT 26, Alkaline Phosphatase 93, Troponin I High Sens 4, Total Protein 6.9, Albumin 3.9, Globulin 3.0, Albumin/Globulin Ratio 1.3, Ethyl Alcohol 3.0 08/27/23 20:00: Urine Opiates Screen NEGATIVE, Urine Methadone Screen NEGATIVE, Ur Barbiturates Screen NEGATIVE, Ur Phencyclidine Scrn NEGATIVE, Ur AmphetaminesScreen POSITIVE H, MDMA (Ecstasy) Screen NEGATIVE, U Benzodiazepines Scrn NEGATIVE, Urine Cocaine Screen POSITIVE H, U Cannabinoids Screen NEGATIVE, Ur Drug Screen Comment 08/27/23 23:59: Phosphorus 3.8, Magnesium 2.2, Troponin I High Sens 4 08/28/23 02:00: Troponin I High Sens 6 08/28/23 06:30: Troponin I High Sens 5, TSH 1.59, Syphilis Total Ab Non- reactive, Hep Bs Antigen Non-Reactive, Hep Bs Antibody Non-Reactive, Hepatitis CAntibody Non-Reactive Imaging Radiology Impression Chest X-Ray 08/27/23 17:05 IMPRESSION: Normal x-ray examination of the chest. Electronically Signed: Pete Vega MD at 18:10 EST Reading [facility] , Service support , Brain CT 08/27/23 17:49 IMPRESSION: Normal unenhanced CT scan of the brain. Electronically Signed: Pete Vega MD at 18:49 EST Reading Location ID and State: [employer] / [place] Tel , Service support , Chest CTA 08/27/23 17:49 IMPRESSION: Normal CTA chest examination, without a demonstrated pulmonary embolism or arterial dissection. Electronically Signed: Pete Vega MD at 19:01 EST Reading Location ID and State: [employer] [facility] [place] Service [place] , Facial/Sinus 08/27/23 17:49 IMPRESSION: Nasal bone fracture, age indeterminate. No mandibular fracture noted. Electronically Signed: Pete Vega MD at 18:54 EST Reading Location ID and State: [facility] / [place] Tel , Service support , Head/Neck CTA 08/27/23 20:00 IMPRESSION: No aneurysm identified. Left vertebral artery anatomic variant as above. Electronically Signed: Pete Vega MD at 21:10 EST Reading Location ID and State: [facility] / [place] Tel , Service support , Active Medications Active Medications Active Medications: Current Medications Generic Name Dose Route Start Last Admin Trade Name Freq PRN Reason Stop Dose Admin Acetaminophen 650 mg 08/27/23 23:42 Acetaminophen 325 Mg Tablet PO Q6H PRN PRN Pain 1-10 Or Fever>100.7 Albuterol Sulfate 2.5 mg 08/28/23 07:05 Albuterol 2.5 Mg/3 Ml Vial.Neb. INHALATION Q2H PRN PRN Dyspnea, wheezing Hydralazine HCl 10 mg 08/28/23 07:05 Hydralazine 20 Mg/Ml Vial IV Q4H PRN PRN SBP > 160 Protocol Sodium Chloride 1,000 mls @ 100 mls/hr 08/27/23 18:55 08/28/23 07:56 IV 08/28/23 14:54 100 mls/hr .Q10H EDITH Administration Levetiracetam 500 mg 08/27/23 23:45 08/28/23 09:46 Levetiracetam 500 Mg Tablet PO 500 mg BID EDTIH Administration Nitroglycerin 0.4 mg 08/27/23 23:42 Nitroglycerin (Inpatient Use) 0.4 Mg Tab.Subl SL Q5M PRN CARDIAC/CHEST PAIN Non-Formulary Medication 1 tablet 08/28/23 10:00 Jicexsxzf-Ouibzvto-Hsuvfsq Ala [Biktarvy] PO DAILY EDITH Pantoprazole Sodium 40 mg 08/28/23 00:05 08/28/23 09:46 Pantoprazole Sodium 40 Mg Tablet PO 40 mg DAILY EDITH Administration Senna/Docusate Sodium 2 tablet 08/27/23 23:42 Senna/Docusate Sodium 1 Tablet PO BID PRN PRN Constipation Sodium Chloride 10 - 40 ml 08/27/23 23:08 0.9% Saline Lock 10 Ml Syringe IV UD PRN SALINE FLUSH 08/28/23 2207 <Electronically signed by Azeb Ghotra MD> Cosigner Signature (if applicable): CC: Judy Tena; Deborah Miles; Juan Dotson; Azeb Ghotra MD; Adilene Nava MD; Martir Dubose MD; Elio Santacruz MD; Dr. Kyle Eaton MD; Dr. Addie Ayala MD; Dr. Tye Bee MD; Dr. Sarah Corrales MD; Dr. Magalie García MD; Dr. Shekhar Dunne MD; Dr. Tj Calvin DO; Dr. Sarai Montgomery MD; Dr. Karl Hoang MD; Dr. Pankaj Rao MD; Dr. Justine Erazo MD; Dr. Humberto Downs MD; Dr. Valerio Coppola MD; Dr. Monica Lopez MD; Sandra Chandler MD; Chicho Pierce MD; Minda Villagran DO; Kerwin Rachel MD; No Primary Care Physician; Shira Boss DO; Brennan Simon MD~ Signed [facility] Work Phone: 1(997) 311-227402-08-2024 Consult note Author Humberto Downs [facility] August 28, 2023 10:43am Note Date/Time August 28, 2023 1 0:43am [facility] Medical Records Department [address] [place] [address] Consultation - Infectious Dx 08/28/23 1037 MR#: [id number] Acct: [id number] Name: FAUSTINO UNGER Rep #:[id number] : 1990 33 From: Humberto coker MD PCP: Care Physician,No Primary Status :ADM KEITH Location: [place] [address] Assessment & Plan Assessment/Plan (1) HIV (human immunodeficiency virus infection): PLAN: On biktarvy. 05/2023 CD4 818, VL 50. Reports compliance. CD4, VL, and syph Ab pending here. Neuro consulted. Imaging of head showed no abnormalities. May need LP. Tox (+) cocaine and amphetamines. Will follow, thank you (2) Syncope: HPI Consult Data Date of Consult: 08/28/23 HPI Narrative Reason for Consultation: hiv HPI Narrative: FAUSTINO UNGER, is a 33 M with HIV, reports compliance with biktarvy, presented with 7 months of intermittent syncope and collapse, some headache, some vision changes. Reports friends have seen him thrashing. Denies ivdu. Tox here (+) cocaine and meth. CT and MRI done, admitted, continued on biktarvy. Reports dog dx with Lyme, he has not noticed any ticks or rash. Full ROS performed and neg except as noted above. [facility] Medical History (Updated 08/28/23 @ 10:[address] Humberto Downs MD) Acid reflux Asthma Cancer of intestinal tract Depression HIV (human immunodeficiency virus infection) Hypertension Polycystic kidney disease Home Medications omeprazole 20 mg tablet,delayed release 20 mg PO DAILY 01/19/22 [History Last Taken Unknown] bictegravir 50 mg-emtricitabine 200 mg-tenofovir alafenam 25 mg tablet (Biktarvy) 1 tab PO DAILY 11/25/22 [History Last Taken 01/18/23] cholecalciferol (vitamin D3) 25 mcg (1,000 unit) capsule (Vitamin D3) 25 mcg PO BID 11/25/22 [History Last Taken Unknown] albuterol sulfate 90 mcg/actuation aerosol inhaler 1 inh inhalation DAILY PRN shortness of breath or wheezing 08/27/23 [History Last Taken Unknown] Allergy/AdvReac Type Severity Reaction Status Date / Time meloxicam [From Mobic] Allergy Severe Anaphylaxis Verified 08/27/23 17:31 metoclopramide [From Reglan] Allergy Other Verified 08/27/23 17:31 Antihistamines - Alkylamine AdvReac Other Verified 08/27/23 17:31 Antihistamines - Ethanolamine AdvReac Other Verified 08/27/23 17:31 Antihistamines - AdvReac Other Verified 08/27/23 17:31 Ethylenediamine Antihistamines - Piperazine AdvReac Other Verified 08/27/23 17:31 Antihistamines - Piperidine AdvReac Other Verified 08/27/23 17:31 prochlorperazine AdvReac Other Verified 08/27/23 17:31 shellfish derived AdvReac Abd Verified 08/27/23 17:31 cramps/diarrhea Family History no significant family his Surgical History H/O wrist surgery History of bowel resection Hx of tonsillectomy Social History household members: none housing: homeless Smoking Status: Current every day smoker tobacco type: cigarettes substance use type: does not use Physical Exam Const alert, oriented x3 and no apparent distress General Appearance: cooperative HEENT normocephalic and head/scalp atraumatic HEENT Narrative: no thrush Eyes PERRL and EOMs intact bilaterally Neck supple and No nodes Resp normal air movement and clear to auscultation bilaterally Cardio regular rate and regular rhythm GI soft to palpation, non-tender and non-distended Skin no rashes or lesions noted Neuro CN's II-XII intact bilaterally Lab / Micro Data Attestation: I reviewed the patient's lab results. 08/27/23 16:58 08/27/23 16:58 Labs: Laboratory Results - last 24 hr 08/27/23 16:58: WBC 7.3, RBC 4.65, Hgb 14.7, Hct 43.2, MCV 92.9, MCH 31.6, MCHC 34.0, RDW Std Deviation 45.1 H, RDW Coeff of Carlyn 13.2, Plt Count 243, MPV 8.4, Immature Gran % (Auto) 0.300, Neut % (Auto) 55.9, Lymph % (Auto) 29.0, Arthur % (Auto) 11.4 H, Eos % (Auto) 2.6, Baso % (Auto) 0.8, Absolute Neuts (auto) 4.1, Absolute Lymphs (auto) 2.10, Nucleated RBC % 0, Sodium 141, Potassium 3.7, Chloride 110 H, Carbon Dioxide 28.0, Anion Gap 3 L, BUN 12, Creatinine 0.87, Estim Creat Clear Calc 109.96, Est GFR (MDRD) Af Amer 129, Est GFR (MDRD) Non-Af107, BUN/Creatinine Ratio 13.8, Glucose 88, Calcium 9.6, Total Bilirubin 0.60, AST 17, ALT 26, Alkaline Phosphatase 93, Troponin I High Sens 4, Total Protein 6.9, Albumin 3.9, Globulin 3.0, Albumin/Globulin Ratio 1.3, Ethyl Alcohol 3.0 08/27/23 20:00: Urine Opiates Screen NEGATIVE, Urine Methadone Screen NEGATIVE, Ur Barbiturates Screen NEGATIVE, Ur Phencyclidine Scrn NEGATIVE, Ur AmphetaminesScreen POSITIVE H, MDMA (Ecstasy) Screen NEGATIVE, U Benzodiazepines Scrn NEGATIVE, Urine Cocaine Screen POSITIVE H, U Cannabinoids Screen NEGATIVE, Ur Drug Screen Comment 08/27/23 23:59: Phosphorus 3.8, Magnesium 2.2, Troponin I High Sens 4 08/28/23 02:00: Troponin I High Sens 6 08/28/23 06:30: Troponin I High Sens 5, TSH 1.59, Syphilis Total Ab Non- reactive, Hep Bs Antigen Non-Reactive, Hep Bs Antibody Non-Reactive, Hepatitis CAntibody Non-Reactive Imaging Radiology Impression Chest X-Ray 08/27/23 17:05 IMPRESSION: Normal x-ray examination of the chest. Electronically Signed: Pete Vega MD at 18:10 EST Reading Location ID and State: [address] [place] [address] Tel , Service support , Brain CT 08/27/23 17:49 IMPRESSION: Normal unenhanced CT scan of the brain. Electronically Signed: Pete Vega MD at 18:49 EST Reading Location ID and State: [address] [place] [address] Tel , Service support , Chest CTA 08/27/23 17:49 IMPRESSION: Normal CTA chest examination, without a demonstrated pulmonary embolism or arterial dissection. Electronically Signed: Pete Vega MD at 19:01 EST Reading Location ID and State: [id number] [employer] Tel , Service support , Facial/Sinus 08/27/23 17:49 IMPRESSION: Nasal bone fracture, age indeterminate. No mandibular fracture noted. Electronically Signed: Pete Vega MD at 18:54 EST Reading Location ID and State: [id number] [employer] Tel , Service support , Head/Neck CTA 08/27/23 20:00 IMPRESSION: No aneurysm identified. Left vertebral artery anatomic variant as above. Electronically Signed: Pete Vega MD at 21:10 EST Reading Location ID and State: [id number] [employer] Tel , Service support , 08/28/23 1043 <Electronically signed by Humberto Downs MD> Cosigner Signature (if applicable): CC: Judy Tena; Deborah Miles; Juan Dotson; Azeb Ghotra MD; Adilene Nava MD; Martir Dubose MD; Elio Santacruz MD; Dr. Kyle Eaton MD; Dr. Addie Ayala MD; Dr. Tye Bee MD; Dr. Sarah Corrales MD; Dr. Magalie García MD; Dr. Shekhar Dunne MD; Dr. Tj Calvin DO; Dr. Sarai Montgomery MD; Dr. Karl Hoang MD; Dr. Pankaj Rao MD; Dr. Justine Erazo MD; Dr. Humberto Downs MD; Dr. Valerio Coppola MD; Dr. Monica Lopez MD; Sandra Chandler MD; Chicho Pierce MD; Minda Villagran DO; Kerwin Rachel MD; No Primary Care Physician; Shira Boss DO; Brennan Simon MD~ Signed [facility] Work Phone: [phone]) 712-348602-08-2024 Procedure [facility] 08-28-2023 History and physical note Author Pankaj Rao [facility] August 28, 2023 4:56am Note Date/Time August 27, 2023 9 :52pm [facility] Medical Records Department [address] [place] [address] H&P Exam - Hospitalist 08/27/23 2151 MR#: [id number] Acct: [id number] Name: FAUSTINO UNGER Rep #:[id number] : 1990 33 From: Pankaj Mayer PCP: Care Physician,No Primary Status :ADM KEITH Location: [place] [address] HPI - General General Date of Admission: 08/27/23 Date of Service: 08/27/23 Chief Complaint: Vague historian. Time lapses, multiple syncope with suspicion of seizure HPI Narrative FAUSTINO UNGER, is a 33 M who is very vague historian with poor recollection states he had multiple episodes of syncope since last summer. He stated that hehad first time around January or February and then multiple about 1 time per week. He stated he loses time orientation and not aware of the time lapses, unaware ofthe surrounding sometimes does not know what he is doing. He states he lives alone and does not have any family member. He is also has HIV status not adherent to the medication but had seen Dr. Downs in the past and on Biktarvy since last taken was January 18, 2023. He has M2M relationship denies any acute fever chills or penile discharge or rash. One of his acquaintance told that he might had seizure but is not very sure and 1 time was found in the bathroom with thrashing arms. He could not describe me the exactly what has happened as he stated he will lose his consciousness or altered mental status. Denies any chest pain, shortness of breath or dizziness or vomiting. No abdominal pain. He describes that he feels too weak and exhausted all the time. Further described that 1 time he had 1 hard metallic stuff fell on his head in about January and since then he is happening but looks like not evaluated in the past. ED physician discussed with the [facility] teleneurology and advised Keppra 500 mg twice daily, MRI brain with and without contrast and EEG. Family history of cerebral aneurysm Vitals labs and imagings reviewed and discussed in assessment and plan. [facility] Medical History Acid reflux Asthma Cancer of intestinal tract Depression HIV (human immunodeficiency virus infection) Hypertension Polycystic kidney disease Home Medications omeprazole 20 mg tablet,delayed release 20 mg PO DAILY 01/19/22 [History Last Taken Unknown] bictegravir 50 mg-emtricitabine 200 mg-tenofovir alafenam 25 mg tablet (Biktarvy) 1 tab PO DAILY 11/25/22 [History Last Taken 01/18/23] cholecalciferol (vitamin D3) 25 mcg (1,000 unit) capsule (Vitamin D3) 25 mcg PO BID 11/25/22 [History Last Taken Unknown] albuterol sulfate 90 mcg/actuation aerosol inhaler 1 inh inhalation DAILY PRN shortness of breath or wheezing 08/27/23 [History Last Taken Unknown] Allergy/AdvReac Type Severity Reaction Status Date / Time meloxicam [From Mobic] Allergy Severe Anaphylaxis Verified 08/27/23 17:31 metoclopramide [From Reglan] Allergy Other Verified 08/27/23 17:31 Antihistamines - Alkylamine AdvReac Other Verified 08/27/23 17:31 Antihistamines - Ethanolamine AdvReac Other Verified 08/27/23 17:31 Antihistamines - AdvReac Other Verified 08/27/23 17:31 Ethylenediamine Antihistamines - Piperazine AdvReac Other Verified 08/27/23 17:31 Antihistamines - Piperidine AdvReac Other Verified 08/27/23 17:31 prochlorperazine AdvReac Other Verified 08/27/23 17:31 shellfish derived AdvReac Abd Verified 08/27/23 17:31 cramps/diarrhea Family History no significant family his Surgical History H/O wrist surgery History of bowel resection Hx of tonsillectomy Social History household members: none housing: homeless Smoking Status: Current every day smoker tobacco type: cigarettes substance use type: does not use ROS ROS Narrative 14 system ROS is on computers patient does not remember his recent past with history of recurrent seizure/syncope, unawareness and altered mental status. Review of Systems ROS Unobtainable: due to mental condition and due to mental status Vital Signs Vital Signs Vital Signs: 08/27/23 16:27 08/27/23 17:03 08/27/23 18:00 Temperature 98.4 F Temperature Source Oral Pulse Rate 102 H 78 Respiratory Rate 25 H 22 H Respiratory Effort Normal Respiratory Pattern Normal Blood Pressure 136/99 H 127/97 H Blood Pressure Mean 111 107 Pulse Ox 100 100 Oxygen Delivery Method Room Air Weight Weight: 144 lb 9.972 oz Body Mass Index (BMI) 21.9 Physical Exam Narrative General: Awake, alert, Oriented x3, Cooperative HEENT: Atraumatic, PERRLA, EOMI, Normocephalic Oral: No Gingival or Mucosal Lesions/ Ulcerations Neck: Supple, No JVD, Negative Carotid Bruits Chest wall/Lungs: Air entry diminished in bilateral lung bases. No crepitation/rhonchi Cardiovascular: Regular rate, Regular Rhythm, Normal S1, Normal S2, No M/G/R Abdomen: Bowel Sounds Present, Soft, Non Tender, Non-Distended : No penile discharge. No testicular tenderness. No dysuria. No renal angle tenderness. No suprapubic tenderness. Extremities: No edema, Capillary Refill Less than 3 Seconds Skin: Diffuse maculopapular and some flattopped papules over the back. Musculoskeletal: No Tenderness to Palpation of Joints or Extremities Neurological: Cranial nerves II-XII grossly intact, DTR 2+/4. No acute focal neurological deficit. Psych/Mental Status: Flat affect, circumferential history, loses boundaries of time with frequent time lapses. Results Lab / Micro Data 08/27/23 16:58 08/27/23 16:58 Labs: Laboratory Results - last 24 hr 08/27/23 16:58: WBC 7.3, RBC 4.65, Hgb 14.7, Hct 43.2, MCV 92.9, MCH 31.6, MCHC 34.0, RDW Std Deviation 45.1 H, RDW Coeff of Carlyn 13.2, Plt Count 243, MPV 8.4, Immature Gran % (Auto) 0.300, Neut % (Auto) 55.9, Lymph % (Auto) 29.0, Arthur % (Auto) 11.4 H, Eos % (Auto) 2.6, Baso % (Auto) 0.8, Absolute Neuts (auto) 4.1, Absolute Lymphs (auto) 2.10, Nucleated RBC % 0, Sodium 141, Potassium 3.7, Chloride 110 H, Carbon Dioxide 28.0, Anion Gap 3 L, BUN 12, Creatinine 0.87, Estim Creat Clear Calc 109.96, Est GFR (MDRD) Af Amer 129, Est GFR (MDRD) Non-Af107, BUN/Creatinine Ratio 13.8, Glucose 88, Calcium 9.6, Total Bilirubin 0.60, AST 17, ALT 26, Alkaline Phosphatase 93, Total Protein 6.9, Albumin 3.9, Globulin 3.0, Albumin/Globulin Ratio 1.3, Ethyl Alcohol 3.0 08/27/23 20:00: Urine Opiates Screen NEGATIVE, Urine Methadone Screen NEGATIVE, Ur Barbiturates Screen NEGATIVE, Ur Phencyclidine Scrn NEGATIVE, Ur AmphetaminesScreen POSITIVE H, MDMA (Ecstasy) Screen NEGATIVE, U Benzodiazepines Scrn NEGATIVE, Urine Cocaine Screen POSITIVE H, U Cannabinoids Screen NEGATIVE, Ur Drug Screen Comment Imaging Radiology Impression Chest X-Ray 08/27/23 17:05 IMPRESSION: Normal x-ray examination of the chest. Electronically Signed: Pete Vega MD at 18:10 EST Reading Location ID and State: [address] [place] [address] Tel , Service support , Brain CT 08/27/23 17:49 IMPRESSION: Normal unenhanced CT scan of the brain. Electronically Signed: Pete Vega MD at 18:49 EST , Chest CTA 08/27/23 17:49 IMPRESSION: Normal CTA chest examination, without a demonstrated pulmonary embolism or arterial dissection. Electronically Signed: Pete Vega MD at 19:01 EST , Facial/Sinus 08/27/23 17:49 IMPRESSION: Nasal bone fracture, age indeterminate. No mandibular fracture noted. Electronically Signed: Pete Vega MD at 18:54 EST , Head/Neck CTA 08/27/23 20:00 IMPRESSION: No aneurysm identified. Left vertebral artery anatomic variant as above. Electronically Signed: Pete Vega MD at 21:10 EST , Assessment & Plan Assessment/Plan (1) Syncope: PLAN: Plan This 33-year-old gentleman admitted for evaluation of recurrent syncope, unawareness altered mental status possible syncope/seizure 1. Syncope possible seizure, history not very clear: Patient is being admitted in PCU on telemetry. Orthostatic blood pressure tomorrow AM. On IV fluid normal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 nosebleed, with nasal pain. He states he occasionally has some visual disturbances left eye but no visual field loss, and right now his vision is fine/normal. He has pain in the top of his neck as well. He denies any other injury. [facility] Medical History Acid reflux Asthma Cancer of intestinal tract Depression Hypertension Polycystic kidney disease Home Medications omeprazole 20 mg tablet,delayed release 20 mg PO DAILY 01/19/22 [History Last Taken Unknown] bictegravir 50 mg-emtricitabine 200 mg-tenofovir alafenam 25 mg tablet (Biktarvy) 1 tab PO DAILY 11/25/22 [History Last Taken 01/18/23] cholecalciferol (vitamin D3) 25 mcg (1,000 unit) capsule (Vitamin D3) 11/25/22 [History Last Taken Unknown] doxycycline monohydrate 100 mg capsule 100 mg PO BID #20 CAPSULES 06/10/23 [Rx Last Taken Unknown] naproxen 500 mg tablet (Naprosyn) 500 mg PO BID PRN pain #20 tabs 06/10/23 [Rx Last Taken Unknown] sulfamethoxazole 800 mg-trimethoprim 160 mg tablet (Bactrim DS) 1 tab PO BID #20tabs 06/10/23 [Rx Last Taken Unknown] Allergy/AdvReac Type Severity Reaction Status Date / Time meloxicam [From Mobic] Allergy Severe Anaphylaxis Verified 07/16/23 16:50 metoclopramide [From Reglan] Allergy Other Verified 06/10/23 21:44 Antihistamines - Alkylamine AdvReac Other Verified 06/10/23 21:44 Antihistamines - Ethanolamine AdvReac Other Verified 10/16/22 20:51 Antihistamines - AdvReac Other Verified 06/10/23 21:44 Ethylenediamine Antihistamines - Piperazine AdvReac Other Verified 06/10/23 21:44 Antihistamines - Piperidine AdvReac Other Verified 06/10/23 21:44 prochlorperazine AdvReac Other Verified 06/10/23 21:44 shellfish derived AdvReac Abd Verified 06/10/23 21:44 cramps/diarrhea Surgical History H/O wrist surgery History of bowel resection Hx of tonsillectomy Social History household members: none housing: homeless Smoking Status: Current every day smoker tobacco type: cigarettes substance use type: does not use ROS ROS ED Constitutional Constitutional ED: Denies chills or fever(s) Eyes Eyes: Reports change in vision; Denies diplopia ENT ENT ED: Reports epistaxis and facial pain; Denies ear pain Cardiovascular Cardiovascular: Denies chest pain or palpitations Respiratory/Chest Respiratory/Chest: Denies cough or dyspnea Gastrointestinal Gastrointestinal: Denies abdominal pain, diarrhea, melena, nausea or vomiting Genitourinary Genitourinary ED: Denies dysuria or hematuria Musculoskeletal Musculoskeletal: Reports neck pain and other Details: Chronic low back discomfort no different now ; Denies extremity pain Integumentary Denies abscess, Abrasions, laceration or rash Neurologic Neurologic: Reports headache(s); Denies confusion, paresthesias or weakness EXAM Physical Exam Const Vital Signs: 07/16/23 16:51 07/16/23 16:55 Temperature 97.5 F L Temperature Source Temporal Pulse Rate 54 L Respiratory Rate 18 Respiratory Effort Normal Non-Labored Respiratory Depth Normal Respiratory Pattern Normal Blood Pressure 147/98 H Blood Pressure Mean 114 Pulse Ox 100 Oxygen Delivery Method Room Air Room Air Positive well nourished and well developed General Appearance ED: well developed and NAD HEENT Reports TM's clear and nasal mucous membranes and turbinates normal HEENT Narrative: Nasal tenderness, otherwise no facial tenderness. There is swelling at the nosebut no asymmetry. There is some clotted blood in the nares but no active epistaxis. 0.5 cm partial-thickness clean appearing linear laceration to the right side of the nose, more over the bones and cartilage. There is no bone exposed. Face and Sinus: facial tenderness Tympanic Membrane ED: Yes TM's clear Eyes PERRL and EOMs intact bilaterally Visual Acuity: other Other Details: no entrapment or pain with extraocular movements Neck full ROM Neck Narrative: At top of C-spine midline near occiput/base of skull. No deformity. No crepitance. No other bony tenderness. General: tenderness Chest Wall inspection of chest normal and palpation of chest normal Chest: symmetrical chest wall rise; Negative for crepitus or tenderness Resp normal respiratory effort and clear to auscultation bilaterally Percussion: other equal BS bilat Cardio no murmurs Rate: regular rate Rhythm: regular rhythm GI normal to inspection, nondistended, normoactive bowel sounds, soft to palpation and non-tender Back/Spine normal ROM Cervical Spine: Negative for cervical spine tenderness Thoracic Spine / Upper Back: Negative for thoracic spinal tenderness Lumbar Spine / Lower Back: Negative for lumbar spinal tenderness Extremity normal to inspection and full ROM General Extremety ED: Negative for tenderness Neuro oriented x3, CN's II-XII intact bilaterally, moves all extremities, no focal motor deficits and no sensory deficits noted [place] Coma Scale: document GCS findings Spontaneous Obeys Commands Oriented 15 Sensorium / Orientation: awake and alert Psych mental status grossly normal and thought process normal Skin Skin Narrative: Laceration to the nose see above Lesions: no lesions Rashes: no rashes PROC Procedures Lacerations nose: Length: 0.5 cm Depth: Skin Shape: Linear Prep: Sterile Conditions and Chlorhexadine (crubbed) Laceration repair: Dermabond MDM MDM MDM Narrative Medical decision making narrative: CT of the head was obtained in order to rule out intracranial injury, I reviewedthe images and report which I agree with, negative for anything acute except forbilateral nasal bone fractures, which is consistent with his clinical exam. Also obtain CT of the cervical spine to rule out C1 and 2 fracture, I reviewed the images and the report which I agree with, this is negative for nothing acute. Patient was reassured, he was offered something for pain and we dermabonded his laceration given appropriate discharge instructions. He does have some chest discomfort that is reproducible on exam left anterior mid chest right around the fourth and fifth ribs, there is no crepitance, he is no splinting on deep abrasion I think this is consistent with a contusion and he isin agreement it feels like that. Radiography Diagnostic Testing: Clinical Impression(s) from Imaging Studies Brain CT 07/16/23 17:11 IMPRESSION: 1. Bilateral nasal bone fractures appear to be acute. Overlying nasal soft tissue swelling. 2. No CT evidence of acute intracranial pathology. 3. Degenerative changes in the cervical spine. No acute fracture or traumatic subluxation. Electronically Signed: Prakash DiazZoey Galindo DO at 17:39 EST , Cervical Spine CT 07/16/23 17:11 IMPRESSION: 1. Bilateral nasal bone fractures appear to be acute. Overlying nasal soft tissue swelling. 2. No CT evidence of acute intracranial pathology. 3. Degenerative changes in the cervical spine. No acute fracture or traumatic subluxation. Electronically Signed: Prakash VZoey Galindo DO at 17:39 EST , Discharge Plan Triage Chief Complaint: Head Injury ED Provider: Tj Burns Dx/Rx/DC Orders Clinical Impression: Closed fracture of nasal bones, Chest wall contusion, Laceration of nose, Closed head injury with brief loss of consciousness Instructions: ED Nose Fracture, with X-Ray, ED Head Injury (Adult), ED Laceration, Face: Skin Glue Prescriptions: No Action omeprazole 20 mg Tablet,Delayed Release (Dr/Ec) 20 mg PO DAILY Biktarvy 50-200-25 mg Tablet 1 tab PO DAILY cholecalciferol (vitamin D3) [Vitamin D3] 25 mcg (1,000 unit) Capsule sulfamethoxazole-trimethoprim [Bactrim DS] 800-160 mg tablet 1 tab PO BID Qty: 20 0RF doxycycline monohydrate 100 mg capsule 100 mg PO BID Qty: 20 0RF naproxen [Naprosyn] 500 mg tablet 500 mg PO BID PRN (Reason: pain) Qty: 20 0RF Primary Care Provider: Care Physician,No Primary Referrals: Sarah Gonzales MD [Med Staff - Active Staff] - (as needed if concerned about symmetry or cosmetic outcome of nose) Care Physician,No Primary [Primary Care Provider] - Disposition Disposition: Home, Self Care What to do if you have Problems For any increased pain, shortness of breath, bleeding, nausea or vomiting, chestpain, or any unexpected problems, contact your Primary Care Provider. Call [facility] ([phone]) or report to the closest Emergency Room. Call 911 if necessary. 07/16/231827 <Electronically signed by Tj Burns MD> Cosigner Signature (if applicable): CC: No Primary Care Physician ~ Signed [facility] Work Phone: [phone]) 337-430809-20-2023 Miscellaneous Notes* Telephone Encounter - Tj Sorto - 04/09/2023 10:19 PM EDT I received text from patient stating he [...] but being that the appointment was in [place], he elected not to go. He did [...] so I wonder if this could be katty's or HLA condition. I would recommend he [...] discussion Tj Sorto DPM [facility] Miscellaneous Notes* Telephone Encounter - Tj Sorto - 02/27/2023 5:53 AM EDT Patient texted me this morning stating he [...] mri. Tj Sorto DPM documented in this encounterK[facility]08-09-2023 Miscellaneous Notes* Telephone Encounter - Tj Sorto - 02/26/2023 1:08 PM EDT I called patient to respond to his [employer] message. Patient reports he recently noticed some drainage coming from his great toe. He states this is new.He states the drainage is a clear but gritty substance and this happened yesterday. I asked patientto send me a picture of the foot [...] the emergency department. I discussed [facility]. He states he has had bad experiences at [facility]. Other options are he can go to [place] or [facility]. He has elected to present to [facility]. I will have him go to [facility] today. Tj Sorto DPM documented in this encounterK[facility]07-14-2023 Miscellaneous Notes* Telephone Encounter - Tj Sorto - 01/31/2023 11:08 PM EDT I attempted to contact patient today in regards to his [employer] messsage. No answer. Will try to call next week. If condition worsens, present to ed Tj Sorto DPM documented in this encounterK[facility]07-11-2023 Miscellaneous Notes* Telephone Encounter - Tj Sorto - 01/28/2023 9:45 PM EDT I called patient this evening to report xray findings. I suspect his foot issue is more inflammatory arthritis especially given that the redness does improve with elevation. I did call in keflex today but he has yet to potato picker. While I want him to take the keflex as a precaution, I am going to also prescribe him an oral steroid and nsaid. The oral steroid he will take now. The nsaid he can take in future if he continues to have issue. Will call patient later this week to see how he is doing Tj Sorto DPM documented in this encounterK[facility]07-11-2023 Instructions* Patient Instructions* Tj Sorto - 01/28/2023 11:42 AM EDT Soak your toe in soap and water or epsom salts Get xrays Take antibiotic If condition does not improve, consider partial nail removal documented in this encounterK[facility]07-11-2023 History of Present illness Narrative* Tj Sorto - 01/28/2023 11:28 AM EDT Images from the original note were not [...] particularly to the lateral aspect of right halluxipj. I reviewd past xrays and mri and [...] hallux ipj. For this reason, I would liketo obtain xrays. I will contact patient with results of xrays. If condition fails to improve, could consider having patient come in for nail procedure. Will call with results. Tj Sorto DPM Podiatry [address] [facility] [address] Dept: [phone] Dept * Rudy Kuhn RN - 01/28/2023 11:09 AM EDT AMB ROOMING INTAKE FLOWSHEET DATA Pain Pain Level: 10 Pain Location: Toe Description: Pressure, Sharp (feels like toe is in a vice) Duration Amount of Time: 4 Duration Units: [...] for this. MRI showed mild bone marrow edemaand calcification. documented in this encounterK[facility]01-12-2023 History of Present illness Narrative* Renetta Haq RT(R) - 08/01/2022 3:00 PM EST Radiology Service Progress Note DATE OF SERVICE: [...] 2022 TIME: 2:49 PM documented in this encounterK[facility]01-05-2023 History of Present illness Narrative* Rudy Kuhn RN - 07/25/2022 8:[address] Sorto, Faustino was provided with Gel Powerstep inserts, size 9-10.5M, and instructed/educated in its application, wear, and care. All questions were answered, and patient was able to demonstrate competence with the necessary skills to utilize the above equipment. Rudy Kuhn RN * Tj Sorto - 07/25/2022 8:25 AM EST Consultation requested by Dr. Osorio for an [...] There is calcification of plantar lateral aspect ofright hallux ipj ASSESSMENT: (M79.89) Soft tissue mass (primary encounter diagnosis) (M79.674) Pain of toe of right foot (R09.89) Diminished pulses in lower extremity (R22.41) Mass of right foot PLAN: 1. History and physical examination performed. 2. XR reviewed with patient and interpreted today 3. Discussed pain in right hallux ipj. He does have hallux ipj sesamoid but I can definitately feela soft-tissue calcification of the lateral aspect of [...] results Tj Sorto DPM Podiatry [address] [facility] [address] Dept: [phone] Dept * Shantel Luna LPN - 07/25/2022 8:08 AM EST AMB ROOMING INTAKE FLOWSHEET DATA Risk Screening Do you have concerns about personal safety or safety in the home?: No Pain Pain Level: 10 Pain Location: Foot-Right Description: Sharp, Stabbing Duration Amount of Time: 4 Duration Units: Months Frequency: Intermittent Intervention/Comfort measure: Reposition, Relaxation, Medication Patient presents with: Right Foot - New, Pain, Swelling Shantel Luna LPN documented in this encounterK[facility]01-05-2023 Instructions* Patient Instructions* Tj Sorto - 07/25/2022 8:32 AM EST Powerstep Original Full length. Can purchase at From [employer] here in [place], [employer] in [place] or [place]. Also can find in [place] in [facility]. Powersteps can also be purchased online, [...] everything fits well together documented in this encounterK[facility]12-05-2022 History of Present illness Narrative* Agata Nelson - 06/24/2022 11:11 AM EST POPULATION HEALTH NAVIGATION OUTREACH Action/FYI Left vm Pt identified by name and : NO Outreach Outcome/Action Unable to reach patient: Left message MyChart message sent Did you use a PCP flex slot to schedule this appointment? No Reason for Outreach Care Gap or Scheduling/Wellness visits Payer: Payor: [place] [employer]ICA[employer] / Plan: [facility] MEDICAID / Product Type: Medicaid [...] 24, 2022 11:12 AM documented in this encounterKettering [facility] Hospital11-30-2022 History of Present illness Narrative* Sammie Morgan RT(R) - 06/19/2022 1:50 PM EST Radiology Service Progress Note PATIENT NAME: Faustino Unger DATE OF SERVICE: June 19, 2022 TIME: 1:50 PM PATIENT IDENTITY VERIFICATION COMPLETED USING TWO (2) IDENTIFIERS: Name and Date of confirmedby patient verbally. FALL SCREENING: Has the patient had 2 falls in the last year or 1 fall with injury or currently using an Ambulatory Assistive Device (Walker, Cane, Wheelchair, Crutches, etc.)? No PATIENT GENDER DATA: Male PATIENT RELEVANT IMPLANT DATA REVIEWED: Yes RADIOLOGY DEPARTMENT: General X-ray: Exam(s) Completed: Lower Extremity X- Ray(s): Toes, Right great PERIPHERAL IV DATA: Not applicable SIGNED BY: RT Gretel(R) June 19, 2022 1:50 PM documented in this encounterK[facility]12-14-2015 Miscellaneous Notes* Telephone Encounter - Cher Jeromebeth - 07/03/2015 2:00 PM EST spk with pt scheduled 07/07 at 11am * Telephone Encounter - Cher Jeromebeth - 07/03/2015 9:53 AM EST left vm to call and schedule * Telephone Encounter - Greg Tong - 06/30/2015 9:59 AM EST RADIOLOGIST REQUEST / APPROVAL FORM STAFF RADIOLOGIST: PROCEDURE TO BE DONE UNDER: CT PROCEDURE REQUESTED: Aspiration Requested PROCEDURE: Approved TIME SLOT NEEDED: 1 hour NOTES: TELL THE PATIENT WE MA NOT BE ABLE TO DO IT IF WE CANT FIND A SAFE APPROACH. Need to put thepatient lateral and see if there is a safe approach before we can attempt. Pt has pain and they want to see if aspiration relieves the pain before they agree to do surgery. SPECIAL LABS/ PROCESSING: None STAFF SIGNATURE: Greg Tong MD PHD DATE: June 30, 2015 TIME: 9:59 AM * Telephone Encounter - Svitlana Jimenez Lpn, LPN - 06/29/2015 3:28 PM EST . BX. COORDINATOR INFORMATION LAB RESULTS: No [...] DATE: June 29, 2015 TIME: 3:28 PM * Telephone Encounter - Gilbert Rubin - 06/29/2015 12:16 PM EST RADIOLOGY CALL CENTER INTAKE DIRECT CASTING OPERATOR: GILBERT EXT:[id number] DATE: June 29, 2015 TIME: 12:16 PM TRACKING #. [id number] REQUESTING PERSON: BARRON PHONE/PAGER: [phone] REQUESTING STAFF: SERGE DAVIS PHONE/PAGER: [phone] ORDERING DESK LOCATION: Q10 If inpatient, patient location: N/A (Note: requests for inpatient's procedures should be given to the O.D. nurse at pager #[phone]) If outpatient, best way to reach patient: PATIENT @ [phone] Best time to call: ANY SCHEDULING: GREER [...] biopsies do not need imaging.) IMAGING: OUTSIDE [facility] Films: Where is study now: LOADED INTO [employer] (If the imaging was obtained outside the [facility] system, then it needs to be submitted for review prior to approval.) Note to all persons requesting biopsies: All biopsy requests will be scheduled as quickly as possible, based on the clinical urgency, availability of appointment times, the need to hold anti-thrombolytic therapy (aspirin, blood thinners) and the patient s schedule, including the need for an available trackless trolley driver. If a percutaneous biopsy or drainage is not felt to be safe or an alternative method for establishing a diagnosis is possible, this will be discussed directly with the requesting physician. documented in this encounterCleveland ClinicDischar summary Author Bogdan Austin [facility] August 01, 2023 3:31am Note Date/Time August 01, 2023 2 :22am [facility] Medical Records Department [address] [place] [address] Emergency Department Summary 08/01/23 MR#: [id number] Acct: [id number] Name: FAUSTINO UNGER Rep #:[id number] : 1990 32 From: Bogdan Martinez PCP: Care Physician,No Primary Status :REG ER Location: ED HPI History of Present Illness Chief Complaint: Bite [facility]SH [facility] Medical History (Updated 08/01/23 @ 02:19 by Rina Nichols) Acid reflux Asthma Cancer of intestinal tract Depression HIV (human immunodeficiency virus infection) Hypertension Polycystic kidney disease Home Medications omeprazole 20 mg tablet,delayed release 20 mg PO DAILY 01/19/22 [History Last Taken Unknown] bictegravir 50 mg-emtricitabine 200 mg-tenofovir alafenam 25 mg tablet (Biktarvy) 1 tab PO DAILY 11/25/22 [History Last Taken 01/18/23] cholecalciferol (vitamin D3) 25 mcg (1,000 unit) capsule (Vitamin D3) 25 mcg PO BID 11/25/22 [History Last Taken Unknown] naproxen 500 mg tablet (Naprosyn) 500 mg PO BID PRN pain #20 tabs 06/10/23 [Rx Last Taken Unknown] albuterol 90 mcg/actuation aerosol inhaler 90 mcg inhalation Q4H PRN PRN sob 08/01/23 [History Last Taken Unknown] albuterol sulfate 90 mcg/actuation aerosol inhaler (ProAir HFA) 2 puff inhalation Q6H PRN shortness of breath or wheezing #6.7 grams 08/01/23 [Rx Last Taken Unknown] amoxicillin 875 mg-potassium clavulanate 125 mg tablet 1 tab PO BID #14 tabs 08/01/23 [Rx Last Taken Unknown] Allergy/AdvReac Type Severity Reaction Status Date / Time meloxicam [From Mobic] Allergy Severe Anaphylaxis Verified 08/01/23 02:22 metoclopramide [From Reglan] Allergy Other Verified 08/01/23 02:22 Antihistamines - Alkylamine AdvReac Other Verified 08/01/23 02:22 Antihistamines - Ethanolamine AdvReac Other Verified 08/01/23 02:22 Antihistamines - AdvReac Other Verified 08/01/23 02:22 Ethylenediamine Antihistamines - Piperazine AdvReac Other Verified 08/01/23 02:22 Antihistamines - Piperidine AdvReac Other Verified 08/01/23 02:22 prochlorperazine AdvReac Other Verified 08/01/23 02:22 shellfish derived AdvReac Abd Verified 08/01/23 02:22 cramps/diarrhea Surgical History H/O wrist surgery History of bowel resection Hx of tonsillectomy Social History household members: none housing: homeless Smoking Status: Current every day smoker tobacco type: cigarettes substance use type: does not use EXAM Physical Exam Const Vital Signs: 08/01/23 02:15 Temperature 99.1 F Temperature Source Temporal Pulse Rate 104 H Respiratory Rate 18 Blood Pressure 139/80 H Blood Pressure Mean 99 Pulse Ox 100 MDM MDM MDM Narrative Medical decision making narrative: HISTORY OF PRESENT ILLNESS: 32-year-old male presents with dog bite. Denies shortness of breath to me. States he started hyperventilating use inhaler realizes inhaler was empty. The symptoms have since resolved REVIEW OF SYSTEMS: Pertinent positives: dog Bite Pertinent negatives: Breath, chest pain PHYSICAL EXAM: Nursing triage notes reviewed, Vital signs reviewed Constitutional: please see mdm HENT: MMM Eyes: Pupils equal round and reactive to light, Extraocular muscles intact Neck: No stridor, no JVD, full neck ROM Lungs: Clear to auscultation, No wheezing or rales. No increased work of breathing, no conversational dyspnea, no accessory muscle use, no nasal flaring. No respiratory distress noted Heart: Regular rate and rhythm, No murmurs, No rubs and No gallops, 2+ distal pulses (radial, femoral, posterior tibial) in all extremities Abdomen: Soft, there is no tenderness, rigidity, rebound or guarding, no obviousperitoneal signs, no palpable pulsatile abdominal masses, no auscultated abdominal bruit : No CVAT Extremities: No edema Neuro: No focal neurological deficits, cranial nerves II through XII intact, 5/5strength in all extremities. Intact sensation to light touch in all extremities,2+ reflexes bilateral patella tendons. Normal gait. No ataxia. Skin: Linear approximate 2 cm laceration noted to the right maxilla MEDICAL DECISION MAKING: Chief Complaint: Dog bite, facial laceration External records reviewed: Unknown last tetanus Factors affecting care: HIV on Biktarvy MDM Narrative: The patient suffered lacerations to the face On exam there was no evidence of foreign bodies. There was no evidence of neurovascular injury. There is no evidence of local joint space involvement at this time. Wound care applied (irrigation and/or local cleansing solution). Laceration repair was then performed please see procedure note. The patient wasgiven signs and symptoms warnings for infection, such as increasing pain, redness, swelling, associated heat, pus or fever. Patient was given instructions for timely follow- up for removal. Patient agreed with the plan of care Procedure: Laceration repair. The procedure was performed by myself. Indication: Wound repair Risks and benefits: risks, benefits and alternatives were discussed Consent: Consent was obtained. Wound Details: Approximately 2 cm linear laceration noted horizontally on the maxilla Anesthesia: Topical LET (verbal consent obtained from patient). Wound prep: Patient was prepped and draped in the usual sterile fashion. Tetanus: Updated today Irrigation Solution: Saline Wound Preparation: Irrigated with normal saline, cleaned with chlorhexidine The wound was explored to its base in a bloodless field. Procedure Description: Applied a running stitch with 5-0 Chromic Gut with close approximation Patient tolerated the procedure well with no immediate complications The patient and/or family, caregivers express understanding. The patient and/orfamily, caregivers agrees with the plan. Shared decision making: I will have a discussion with the patient and or visitors regarding risk/benefits of further testing or admission. They will be made aware of of the risk/benefits inherent in this decision they will be given the opportunity to voice understanding. Total critical care time today provided was at least 0 minutes. This excludes separately billable procedures. Critical care time (if documented) is secondary to the patient having high probability of clinically significant/life threatening deterioration in the patient's condition which required my urgent intervention. Impression: 1. Dog bite 2. Face laceration 3. History of HIV Dispo: Discharge Discharge Plan Triage Chief Complaint: Bite ED Provider: Bogdan Austin Dx/Rx/DC Orders Instructions: ED Dog Bite, ED FACIAL LACERATION Suture Tape Prescriptions: New amoxicillin-pot clavulanate 875-125 mg tablet 1 tab PO BID Qty: 14 0RF albuterol sulfate [ProAir HFA] 90 mcg/actuation HFA aerosol inhaler 2 puff inhalation Q6H PRN (Reason: shortness of breath or wheezing) Qty: 6.7 3RF No Action omeprazole 20 mg Tablet,Delayed Release (Dr/Ec) 20 mg PO DAILY Biktarvy 50-200-25 mg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 Specialty Diagnoses / Procedures Referred By Contac t Referred To Contact Endocrinology Diagnoses Osteopenia of lumbar spine Procedures CONSULT TO ENDOCRINOLOGY OFFICE/OUTPATIENT NEW HIGH MDM 60 MINUTES Meaghan Bloom, DO [address] [place] [address] Referral ID Status Reason Start Date Expiration Date Visits Requested Visits Authorized [id number] Authorized PCP Requested Referral 04/16/2024 04/16/2025 1 1 Summary Purpose Family History No Family History Records Found Relationship Condition Age at Onset Recorded Date/T francis grandfather Hypertension Unknown Coronary artery disease Unknown Additional Source Comments Source Comments (unrecognize d section and content) In the event this informatio n is protected by the Federal Confidentiality of Alcohol and Drug Abuse Patient Records regulations: The Federal rules restrict any use of the information to criminally investigate or prosecute any alcohol or drug abuse patient.[facility] the event this information is protected by the Federal Confidentiality of Alcohol and Drug Abuse Patient Records regulations: The Federal rules restrict any use of the information to criminally investigate or prosecute any alcohol or drug abuse patient.[facility] HospitalIn the event this information is protected by the Federal Confidentiality of Alcohol and Drug Abuse Patient Records regulations: The Federal rules restrict any use of the information to criminally investigate or prosecute any alcohol or drug abuse patient.[facility] HospitalIn the event this information is protected by the Federal Confidentiality of Alcohol and Drug Abuse Patient Records regulations: The Federal rules restrict any use of the information to criminally investigate or prosecute any alcohol or drug abuse patient.[facility] HospitalIn the event this information is protected by the Federal Confidentiality of Alcohol and Drug Abuse Patient Records regulations: The Federal rules restrict any use of the information to criminally investigate or prosecute any alcohol or drug abuse patient.[facility] HospitalIn the event this information is protected by the Federal Confidentiality of Alcohol and Drug Abuse Patient Records regulations: The Federal rules restrict any use of the information to criminally investigate or prosecute any alcohol or drug abuse patient.[facility] HospitalIn the event this information is protected by the Federal Confidentiality of Alcohol and Drug Abuse Patient Records regulations: The Federal rules restrict any use of the information to criminally investigate or prosecute any alcohol or drug abuse patient.[facility] HospitalIn the event this information is protected by the Federal Confidentiality of Alcohol and Drug Abuse Patient Records regulations: The Federal rules restrict any use of the information to criminally investigate or prosecute any alcohol or drug abuse patient.[facility] HospitalIn the event this information is protected by the Federal Confidentiality of Alcohol and Drug Abuse Patient Records regulations: The Federal rules restrict any use of the information to criminally investigate or prosecute any alcohol or drug abuse patient.[facility] HospitalIn the event this information is protected by the Federal Confidentiality of Alcohol and Drug Abuse Patient Records regulations: The Federal rules restrict any use of the information to criminally investigate or prosecute any alcohol or drug abuse patient.[facility] HospitalIn the event this information is protected by the Federal Confidentiality of Alcohol and Drug Abuse Patient Records regulations: The Federal rules restrict any use of the information to criminally investigate or prosecute any alcohol or drug abuse patient.[facility] HospitalIn the event this information is protected by the Federal Confidentiality of Alcohol and Drug Abuse Patient Records regulations: The Federal rules restrict any use of the information to criminally investigate or prosecute any alcohol or drug abuse patient.[facility] HospitalIn the event this information is protected by the Federal Confidentiality of Alcohol and Drug Abuse Patient Records regulations: The Federal rules restrict any use of the information to criminally investigate or prosecute any alcohol or drug abuse patient.[facility] HospitalIn the event this information is protected by the Federal Confidentiality of Alcohol and Drug Abuse Patient Records regulations: The Federal rules restrict any use of the information to criminally investigate or prosecute any alcohol or drug abuse patient.[facility] HospitalIn the event this information is protected by the Federal Confidentiality of Alcohol and Drug Abuse Patient Records regulations: The Federal rules restrict any use of the information to criminally investigate or prosecute any alcohol or drug abuse patient.[facility] HospitalIn the event this information is protected by the Federal Confidentiality of Alcohol and Drug Abuse Patient Records regulations: The Federal rules restrict any use of the information to criminally investigate or prosecute any alcohol or drug abuse patient.[facility] HospitalIn the event this information is protected by the Federal Confidentiality of Alcohol and Drug Abuse Patient Records regulations: The Federal rules restrict any use of the information to criminally investigate or prosecute any alcohol or drug abuse patient.[facility] HospitalIn the event this information is protected by the Federal Confidentiality of Alcohol and Drug Abuse Patient Records regulations: The Federal rules restrict any use of the information to criminally investigate or prosecute any alcohol or drug abuse patient.[facility] HospitalIn the event this information is protected by the Federal Confidentiality of Alcohol and Drug Abuse Patient Records regulations: The Federal rules restrict any use of the information to criminally investigate or prosecute any alcohol or drug abuse patient.[facility] HospitalIn the event this information is protected by the Federal Confidentiality of Alcohol and Drug Abuse Patient Records regulations: The Federal rules restrict any use of the information to criminally investigate or prosecute any alcohol or drug abuse patient.[facility] HospitalIn the event this information is protected by the Federal Confidentiality of Alcohol and Drug Abuse Patient Records regulations: The Federal rules restrict any use of the information to criminally investigate or prosecute any alcohol or drug abuse patient.[facility] HospitalIn the event this information is protected by the Federal Confidentiality of Alcohol and Drug Abuse Patient Records regulations: The Federal rules restrict any use of the information to criminally investigate or prosecute any alcohol or drug abuse patient.[facility] HospitalIn the event this information is protected by the Federal Confidentiality of Alcohol and Drug Abuse Patient Records regulations: The Federal rules restrict any use of the information to criminally investigate or prosecute any alcohol or drug abuse patient.[facility] HospitalIn the event this information is protected by the Federal Confidentiality of Alcohol and Drug Abuse Patient Records regulations: The Federal rules restrict any use of the information to criminally investigate or prosecute any alcohol or drug abuse patient.[facility] HospitalIn the event this information is protected by the Federal Confidentiality of Alcohol and Drug Abuse Patient Records regulations: The Federal rules restrict any use of the information to criminally investigate or prosecute any alcohol or drug abuse patient.[facility] HospitalIn the event this information is protected by the Federal Confidentiality of Alcohol and Drug Abuse Patient Records regulations: The Federal rules restrict any use of the information to criminally investigate or prosecute any alcohol or drug abuse patient.[facility] HospitalIn the event this information is protected by the Federal Confidentiality of Alcohol and Drug Abuse Patient Records regulations: The Federal rules restrict any use of the information to criminally investigate or prosecute any alcohol or drug abuse patient.[facility] HospitalIn the event this information is protected by the Federal Confidentiality of Alcohol and Drug Abuse Patient Records regulations: The Federal rules restrict any use of the information to criminally investigate or prosecute any alcohol or drug abuse patient.[facility] HospitalIn the event this information is protected by the Federal Confidentiality of Alcohol and Drug Abuse Patient Records regulations: The Federal rules restrict any use of the information to criminally investigate or prosecute any alcohol or drug abuse patient.[facility] HospitalIn the event this information is protected by the Federal Confidentiality of Alcohol and Drug Abuse Patient Records regulations: The Federal rules restrict any use of the information to criminally investigate or prosecute any alcohol or drug abuse patient.[facility] HospitalIn the event this information is protected by the Federal Confidentiality of Alcohol and Drug Abuse Patient Records regulations: The Federal rules restrict any use of the information to criminally investigate or prosecute any alcohol or drug abuse patient.[facility] HospitalIn the event this information is protected by the Federal Confidentiality of Alcohol and Drug Abuse Patient Records regulations: The Federal rules restrict any use of the information to criminally investigate or prosecute any alcohol or drug abuse patient.[facility] HospitalIn the event this information is protected by the Federal Confidentiality of Alcohol and Drug Abuse Patient Records regulations: The Federal rules restrict any use of the information to criminally investigate or prosecute any alcohol or drug abuse patient.[facility] HospitalIn the event this information is protected by the Federal Confidentiality of Alcohol and Drug Abuse Patient Records regulations: The Federal rules restrict any use of the information to criminally investigate or prosecute any alcohol or drug abuse patient.[facility] HospitalIn the event this information is protected by the Federal Confidentiality of Alcohol and Drug Abuse Patient Records regulations: The Federal rules restrict any use of the information to criminally investigate or prosecute any alcohol or drug abuse patient.[facility] HospitalIn the event this information is protected by the Federal Confidentiality of Alcohol and Drug Abuse Patient Records regulations: The Federal rules restrict any use of the information to criminally investigate or prosecute any alcohol or drug abuse patient.[facility] HospitalIn the event this information is protected by the Federal Confidentiality of Alcohol and Drug Abuse Patient Records regulations: The Federal rules restrict any use of the information to criminally investigate or prosecute any alcohol or drug abuse patient.[facility] HospitalIn the event this information is protected by the Federal Confidentiality of Alcohol and Drug Abuse Patient Records regulations: The Federal rules restrict any use of the information to criminally investigate or prosecute any alcohol or drug abuse patient.[facility] HospitalIn the event this information is protected by the Federal Confidentiality of Alcohol and Drug Abuse Patient Records regulations: The Federal rules restrict any use of the information to criminally investigate or prosecute any alcohol or drug abuse patient.[facility] Reason for Visit (unrecogniz ed section and content) Reason Onset Date Comments Biopsy Request 06/29/2015 Reason Comments New Pain Swelling Specialty Diagnoses / Procedures Referred By Contac t Referred To Contact Podiatry Diagnoses Pain of toe of right foot Procedures CONSULT TO PODIATRY OFFICE/OUTPATIENT NEW HIGH MDM 60-74 MINUTES Aarti Osorio, WILLIAM.SSIS DEVELOPER [address] [place] [address] Referral ID Status Reason Start Date Expiration Date V isits Requested Visits Authorized [id number] Closed PCP Requested Referral 06/19/2022 06/19/2023 1 1 Reason Comments Orders Reason Comments Patient Update Reason Comments Established Patient Follow Up Pain Swelling Specialty Diagnoses / Procedures Referred By Contac t Referred To Contact MR IMAGING Diagnoses Mass of right foot Procedures MRI FOOT/TOES WO/W IVCON RT MRI LOWER EXTREM OTH/THN JT W/O & W/CONTR MATR Tj Sorto [address] [place] [address] [place] [address] Referral ID Status Reason Start Date Expiration Date V isits Requested Visits Authorized [id number] Closed Auto-Generate d Referral 07/25/2022 2022 1 1 Reason Comments Radiology Review Reason Comments New Patient Reason Comments New Patient Evaluation Specialty Diagnoses / Procedures Referred By Contac t Referred To Contact Diagnoses Osteopenia of other site Bony sclerosis Procedures CONSULT TO HEMATOLOGY/ONCOLOGY OFFICE/OUTPATIENT NEW HIGH MDM 60 MINUTES Mojgan Elizabeth, SPIKE MACHINE HEATER.SSIS DEVELOPER [address] [id number] Referral ID Status Reason Start Date Expiration Date V isits Requested Visits Authorized [id number] Closed PCP Requested Referral 02/26/2024 02/24/2025 1 1 Reason Comments AVS 03/15/24 Reason Comments Results Reason Comments Consult colonoscopy Specialty Diagnoses / Procedures Referred By Contac t Referred To Contact General Surgery Diagnoses Bony sclerosis Osteopenia of other site Testicular hypofunction Procedures CONSULT TO GENERAL SURGERY OFFICE/OUTPATIENT NEW HIGH MDM 60 MINUTES Meaghan Bloom DO [address] [place] [address] Referral ID Status Reason Start Date Expiration Date V isits Requested Visits Authorized [id number] Closed PCP Requested Referral 03/15/2024 03/15/2025 1 1 Reason Comments Request Outside Medical Records Reason Comments Radiology CT Specialty Diagnoses / Procedures Referred By Contac t Referred To Contact CT IMAGING Diagnoses Diarrhea, unspecified type Procedures CT ABD/PEL WO IVCON CT ABD & PELVIS W/O CONTRAST Cathi Parks, SPIKE MACHINE HEATER.SSIS DEVELOPER [address] [place] [address] [place] [address] Referral ID Status Reason Start Date Expiration Date V isits Requested Visits Authorized [id number] Closed Auto-Generat ed Referral Patient Cleared - Admin/Chairm an/Director advise to proceed or did not respond 03/23/2024 04/22/2024 1 1 Reason Comments Results Reason Comments Actionable Findings Follow Up Reason Comments Low Bone Density for Age Specialty Diagnoses / Procedures Referred By Contac t Referred To Contact Endocrinology Diagnoses Osteopenia of lumbar spine Procedures CONSULT TO ENDOCRINOLOGY OFFICE/OUTPATIENT [facility] 60 MINUTES Meaghan Bloom, DO [address] [place] [address] Referral ID Status Reason Start Date Expiration Date V isits Requested Visits Authorized [id number] Closed PCP Requested Referral 04/16/2024 04/16/2025 1 1 Reason Comments Osteopenia Reason Comments Follow Up Reason Comments RW Release Planning Reason Comments RW Referral Reason Comments RW Case Management Reason Comments Osteopenia Fatigued and leg swe lling ongoing a few weeks Reason Comments F/U 3 Month Consult for EGD Reason Comments Med Change Request Goals (unrecognized section and content) Goals may be documented in a n alternate sectionGoals may be documented in an alternate sectionGoals may be documented in an alternate sectionGoals may be documented in an alternate sectionGoals may be documented in an alternate sectionGoals may be documented in an alternate sectionGoals may be documented in an alternate sectionGoals may be documented in an alternate sectionGoals may be documented in an alternate sectionGoals may be documented in an alternate sectionGoals may be documented in an alternate sectionGoals may be documented in an alternate sectionGoals may be documented in an alternate sectionGoals may be documented in an alternate section No data available for this sectionGoals may be documented in an alternate sectionGoals may be documented in an alternate sectionGoals may be documented in an alternate section Care Teams (unrecognized sec tion and content) Team Status: Active Member Role Status Dates Dr. Humberto Downs MD Primary Care Provider Active Team Status: Active Member Role Status Dates Dr. Humberto Downs MD Primary Care Provider Active Start: August 25, 2024 Dr. Genaro Avalos MD Attending Provider Active S tart: August 25, 2024 Dr. Yang Del Rio MD Referring Provider Active Start: August 25, 2024 Team Status: Inactive Member Role Status Dates Dr. Humberto Downs MD Primary Care Provider Active Start: August 25, 2024 End: August 25, 2024 Dr. Yang Del Rio MD Attending Provider Active Start: August 25, 2024 End: August 25, 2024 Dr. Yang Del Rio MD Referring Provider Active Start: August 25, 2024 End: August 25, 2024 Team Status: Active Member Role Status Dates Dr. Humberto Downs MD Primary Care Provider Active Start: August 25, 2024 Dr. Yang Del Rio MD Attending Provider Active Start: August 25, 2024 Dr. Yang Del Rio MD Referring Provider Active Start: August 25, 2024 Team Status: Inactive Member Role Status Dates Dr. Humberto Downs MD Primary Care Provider Active Start: September 13, 2024 End: September 13, 2024 Dr. Humberto Downs MD Referring Provider Active Start: September 13, 2024 End: September 13, 2024 Dr. Rebekah Palomares MD Attending Provider Active Start: September 13, 2024 End: September 13, 2024 Team Status: Inactive Member Role Status Dates Dr. Humberto Downs MD Primary Care Provider Active Start: October 28, 2024 End: October 28, 2024 Dr. Yang Del Rio MD Attending Provider Active Start: October 28, 2024 End: October 28, 2024 Dr. Yang Del Rio MD Referring Provider Active Start: October 28, 2024 End: October 28, 2024 Team Status: Inactive Member Role Status Dates Dr. Humberto Downs MD Primary Care Provider Active Start: November 18, 2024 End: November 18, 2024 Dr. Skye Lopez DO Attending Provider Active Start: November 18, 2024 End: November 18, 2024 Dr. Skye Lopez DO Referring Provider Active Start: November 18, 2024 End: November 18, 2024 Team Status: Inactive Member Role Status Dates Dr. Humberto Downs MD Primary Care Provider Active Start: November 30, 2024 End: November 30, 2024 Dr. Yang Del Rio MD Attending Provider Active Start: November 30, 2024 End: November 30, 2024 Dr. Yang Del Rio MD Referring Provider Active Start: November 30, 2024 End: November 30, 2024 Team Status: Inactive Member Role Status Dates Dr. Humberto Downs MD Primary Care Provider Active Start: December 09, 2024 End: December 09, 2024 Dr. Humberto Downs MD Referring Provider Active Start: December 09, 2024 End: December 09, 2024 Dr. Yang Del Rio MD Attending Provider Active Start: December 09, 2024 End: December 09, 2024 Team Status: Inactive Member Role Status Dates Dr. Humberto Downs MD Primary Care Provider Active Start: December 09, 2024 End: December 09, 2024 Dr. Yang Del Rio MD Attending Provider Active Start: December 09, 2024 End: December 09, 2024 Dr. Yang Del Rio MD Referring Provider Active Start: December 09, 2024 End: December 09, 2024 Tutor Relationship Specialty Start Date End Date Pcp, No PCP - General 02/02/22 08/20/22 Tutor Relationship Specialty Start Date End Date Pcp, No PCP - General 02/02/22 08/20/22 Team Status: Active Member Role Status Dates Dr. Ronni Landaverde MD Family Provider Active No Primary Care Physician Primary Care Provider Active Team Status: Inactive Member Role Status Dates No Primary Care Physician Primary Care Provider Active Dr. Nancy Riley DO Attending Provider, Emergency P ignacio Active Team Status: Inactive Member Role Status Dates No Primary Care Physician Primary Care Provider Active Dr. Humberto Downs MD Attending Provider, Referrin g Provider Active Team Status: Inactive Member Role Status Dates No Primary Care Physician Primary Care Provider Active Dr. Vj Dee MD Emergency Provider Active Team Status: Inactive Member Role Status Dates No Primary Care Physician Primary Care Provider Active Dr. Vj Dee MD Attending Provider, Emergency Provi wes Active Team Status: Inactive Member Role Status Dates No Primary Care Physician Primary Care Provider Active Dr. Pal Wilson DO Emergency Provider Active Team Status: Inactive Member Role Status Dates No Primary Care Physician Primary Care Provider Active Dr. Pal Wilson DO Attending Provider, Emergency Provider Active Tutor Relationship Specialty Start Date End Date Pcp, No, SPIKE MACHINE HEATER PCP - General 02/02/22 08/20/22 Team Status: Inactive Member Role Status Dates No Primary Care Physician Primary Care Provider Active Jay Mcknight MD Attending Provider, Emergency Provid er Active Team Status: Inactive Member Role Status Dates No Primary Care Physician Primary Care Provider Active Dr. Humberto Downs MD Attending Provider Active Team Status: Inactive Member Role Status Dates No Primary Care Physician Primary Care Provider Active Dr. Tj Burns MD Emergency Provider Active Team Status: Inactive Member Role Status Dates No Primary Care Physician Primary Care Provider Active Dr. Tj Burns MD Attending Provider, Emergency Provider Active Team Status: Inactive Member Role Status Dates No Primary Care Physician Primary Care Provider Active Dr. Bogdan Austin DO Emergency Provider Active Team Status: Inactive Member Role Status Dates No Primary Care Physician Primary Care Provider Active Dr. Bogdan Austin DO Attending Provider, [facility] Active Team Status: Inactive Member Role Status Dates No Primary Care Physician Primary Care Provider Active Dr. Tri Larios MD Emergency Provider Active Team Status: Inactive Member Role Status Dates No Primary Care Physician Primary Care Provider Active Dr. Tri Larios MD Attending Provider, Emergency Provider Active Team Status: Active Member Role Status Dates No Primary Care Physician Primary Care Provider Active Dr. Pal Wilson , DO Emergency Provider Active Dr. Addie Ayala MD Other Provider Active Minda Villagran MD Other Provider Active Dr. Shekhar Dunne MD Other Provider Active Dr. Magalie García MD Other Provider Active Martir Dubose MD Other Provider Active Dr. Tye Bee MD Other Provider Active Dr. Tj Calvin MD Other Provider Active Brennan Simon MD Other Provider Active Adilene Nava MD Other Provider Active Dr. Justine Erazo MD Other Provider Active Dr. Judy Tena DO Other Provider Active Dr. Sarah Corrales MD Other Provider Active Dr. Valerio Coppola MD Other Provider Active Dr. Monica Lopez MD Other Provider Active Dr. Deborah Miles MD Other Provider Active Dr. Karl Hoang MD Other Provider Active Dr. Juan Hayward MD Other Provider Active Dr. Sarai Montgomery MD Other Provider Active Dr. Azeb Ghotra MD Other Provider Active Dr. Pankaj Rao MD Admit Provider, Attending Provi wes Active Team Status: Active Member Role Status Dates No Primary Care Physician Primary Care Provider Active Dr. Pla Wilson , Emergency Provider Active Dr. Addie Ayala MD Other Provider Active Minda Villagran MD Other Provider Active Dr. Shekhar Dunne MD Other Provider Active Dr. Magalie García MD Other Provider Active Martir Dubose MD Other Provider Active Dr. Tye Bee MD Other Provider Active Dr. Tj Calvin MD Other Provider Active Brennan Simon MD Other Provider Active Adilene Nava MD Other Provider Active Dr. Justine Erazo MD Other Provider Active Dr. Judy Tena DO Other Provider Active Dr. Sarah Corrales MD Other Provider Active Dr. Valerio Coppola MD Other Provider Active Dr. Monica Lopez MD Other Provider Active Dr. Deborah Miles MD Other Provider Active Dr. Karl Hoang MD Other Provider Active Dr. Juan Hayward MD Other Provider Active Dr. Sarai Montgomery MD Other Provider Active Dr. Azeb Ghotra MD Other Provider Active Dr. Pankaj Rao MD Admit Provider, A ttending Provider, Other Provider Active Dr. Humberto Downs MD Other Provider Active Elio Santacruz MD Other Provider Active Chicho Pierce MS Other Provider Active Sandra Chandler MD Other Provider Active AILYN EATON MD Other Provider Active Kerwin Rachel MD Other Provider Active Shira Boss MD Other Provider Active Team Status: Active Member Role Status Dates No Primary Care Physician Primary Care Provider Active Dr. Pal Wilson , Emergency Provider Active Dr. Addie Ayala MD Other Provider Active Minda Villagran MD Other Provider Active Dr. Shekhar Dunne MD Other Provider Active Dr. Magalie García MD Other Provider Active Martir Dubose MD Other Provider Active Dr. Tye Bee MD Other Provider Active Dr. Tj Calvin MD Other Provider Active Brennan Simon MD Other Provider Active Adilene Nava MD Other Provider Active Dr. Justine Erazo MD Other Provider Active Dr. Judy Tena DO Other Provider Active Dr. Sarah Corrales MD Other Provider Active Dr. Valerio Coppola MD Other Provider Active Dr. Monica Lopez MD Other Provider Active Dr. Deborah Miles MD Other Provider Active Dr. Karl Hoang MD Other Provider Active Dr. Juan Hayward MD Other Provider Active Dr. Sarai Montgomery MD Other Provider Active Dr. Azeb Ghotra MD Other Provider Active Dr. Pankaj Rao MD Admit Provider, Other Provider Active Dr. Humberto Downs MD Other Provider Active Elio Santacruz MD Other Provider Active Chicho Pierce MS Other Provider Active Sandra Chandler MD Other Provider Active AILYN EATON MD Other Provider Active Kerwin Rachel MD Other Provider Active Shira Boss MD Other Provider Active Dr. Simin Moseley MD Attending Provider, Other Prov ider Active Team Status: Active Member Role Status Dates No Primary Care Physician Primary Care Provider Active Dr. Rebekah Palomares MD Attending Provider Active Team Status: Inactive Member Role Status Dates No Primary Care Physician Primary Care Provider Active Dr. Pal Wilson DO Emergency Provider Active Dr. Addie Ayala MD Other Provider Active Minda Villagran MD Other Provider Active Dr. Shekhar Dunne MD Other Provider Active Dr. Magalie García MD Other Provider Active Martir Dubose MD Other Provider Active Dr. Tye Bee MD Other Provider Active Dr. Tj Calvin MD Other Provider Active Brennan Simon MD Other Provider Active Adilene Nava MD Other Provider Active Dr. Justine Erazo MD Other Provider Active Dr. Judy Tena DO Other Provider Active Dr. Sarah Corrales MD Other Provider Active Dr. Valerio Coppola MD Other Provider Active Dr. Monica Lopez MD Other Provider Active Dr. Deborah Miles MD Other Provider Active Dr. aKrl Hoang MD Other Provider Active Dr. Juan Hayward MD Other Provider Active Dr. Sarai Montgomery MD Other Provider Active Dr. Azeb Ghotra MD Other Provider Active Dr. Pankaj Rao MD Admit Provider, Other Provider Active Dr. Humberto Downs MD Other Provider Active Elio Santacruz MD Other Provider Active Chicho Pierce MS Other Provider Active Sandra Chandler MD Other Provider Active AILYN EATON MD Other Provider Active Kerwin Rachel MD Other Provider Active Shira Boss MD Other Provider Active Dr. Simin Moseley MD Attending Provider Active Team Status: Active Member Role Status Dates PHYSICIAN NO FAMILY Primary Care Provider Active Team Status: Inactive Member Role Status Dates Tommy Swanson DO Emergency Provider Active Start: November 13, 2023 End: November 13, 2023 PHYSICIAN NO FAMILY Primary Care Provider Active Start: November 13, 2023 End: November 13, 2023 Team Status: Inactive Member Role Status Dates No Primary Care Physician Primary Care Provider Active Dr. Frank Cole DO Emergency Provider Active Tutor Relationship Specialty Start Date End Date Humberto Downs MD [address] [place] [place] [address] Infectious Diseases 02/26/24 Tutor Relationship Specialty Start Date End Date Humberto Downs MD [address] [place] [phone] Infectious Diseases 02/26/24 Tutor Relationship Specialty Start Date End Date Humberto Downs MD [address] [place] [place] [address] Infectious Diseases 02/26/24 Tutor Relationship Specialty Start Date End Date Humberto Downs MD [address] [facility] [place] [address] Infectious Diseases 02/26/24 Mojgan Elizabeth, SPIKE MACHINE HEATER.SSIS DEVELOPER [address] [place], [place] [id number] Radiology 03/15/24 Tutor Relationship Specialty Start Date End Date Humberto Downs MD [address] [facility] [place] [address] Infectious Diseases 02/26/24 Mojgan Elizabeth, SPIKE MACHINE HEATER.SSIS DEVELOPER [address] [place], [place] [id number] Radiology 03/15/24 Tutor Relationship Specialty Start Date End Date Humberto Downs MD [address] [place] [place] [address] Infectious Diseases 02/26/24 Mojgan Elizabeth SPIKE MACHINE HEATER.SSIS DEVELOPER [address] [place], [place] [id number] Radiology 03/15/24 Tutor Relationship Specialty Start Date End Date Humberto Downs MD [address] [place] [place] [address] Infectious Diseases 02/26/24 Mojgan Elizabeth, SPIKE MACHINE HEATER.SSIS DEVELOPER [address] [place], [place] [id number] Radiology 03/15/24 Tutor Relationship Specialty Start Date End Date Humberto Downs MD [address] [facility] [place] [address] Infectious Diseases 02/26/24 Mojgan Elizabeth, SPIKE MACHINE HEATER.SSIS DEVELOPER [address] [place], [place] [id number] Radiology 03/15/24 Tutor Relationship Specialty Start Date End Date Humberto Downs MD [address] [facility] [place] [address] PCP - General Infectious Diseases 03/23/24 Humberto Downs MD [address] [facility] [place] [address] Infectious Diseases 02/26/24 Mojgan Elizabeth, SPIKE MACHINE HEATER.SSIS DEVELOPER [address] [place], [place] [id number] Radiology 03/15/24 Tutor Relationship Specialty Start Date End Date Humberto Downs MD [address] [place], [place] [id number] PCP - General Infectious Diseases 03/23/24 Humberto Downs MD [address] [place] [address] Infectious Diseases 02/26/24 Mojgan Elizabeth, SPIKE MACHINE HEATER.SSIS DEVELOPER [address] [place] [address] Radiology 03/15/24 Tutor Relationship Specialty Start Date End Date Humberto Downs MD [address] [facility] [place] [place] [address] PCP - General Infectious Diseases 03/23/24 Humberto Downs MD [address] [facility] [place] [place] [address] Infectious Diseases 02/26/24 Mojgan Elizabeth, SPIKE MACHINE HEATER.SSIS DEVELOPER [address] [place] [address] Radiology 03/15/24 Tutor Relationship Specialty Start Date End Date Humberto Downs MD [address] [facility] [place] [address] PCP - General Infectious Diseases 03/23/24 Humberto Downs MD [address] [facility] [place] [address] Infectious Diseases 02/26/24 Mojgan Elizabeth, SPIKE MACHINE HEATER.SSIS DEVELOPER [address] [place] [address] Radiology 03/15/24 Tutor Relationship Specialty Start Date End Date Princess Pretty, SPIKE MACHINE HEATER PCP - General 7/16/22 1/31/23 Tutor Relationship Specialty Start Date End Date Humberto Downs MD [address] [place], [place] [id number] PCP - General Infectious Diseases 03/23/24 Humberto Downs MD [address] [place] [address] Infectious Diseases 02/26/24 Mojgan Elizabeth, SPIKE MACHINE HEATER.SSIS DEVELOPER [address] [place] [address] Radiology 03/15/24 Tutor Relationship Specialty Start Date End Date Humberto Downs MD [address] [place], [place] [id number] PCP - General Infectious Diseases 03/23/24 Humberto Downs MD [address] [place] [place] [address] Infectious Diseases 02/26/24 Mojgan Elizabeth, SPIKE MACHINE HEATER.SSIS DEVELOPER [address] [place] [address] Radiology 03/15/24 Tutor Relationship Specialty Start Date End Date Humberto Downs MD [address] [place] [address] PCP - General Infectious Diseases 03/23/24 Humberto Downs MD [address] [place] [address] Infectious Diseases 02/26/24 Mojgan Elizabeth, SPIKE MACHINE HEATER.SSIS DEVELOPER [address] [place], [place] [id number] Radiology 03/15/24 Tutor Relationship Specialty Start Date End Date Humberto Downs MD [address] [facility] [place], [place] [id number] PCP - General Infectious Diseases 03/23/24 Humberto Downs MD [address] [facility] [place] [place] [address] Infectious Diseases 02/26/24 Mojgan Elizabeth, SPIKE MACHINE HEATER.SSIS DEVELOPER [address] [place], [place] [id number] Radiology 03/15/24 Tutor Relationship Specialty Start Date End Date Humberto Downs MD [address] [facility], [place] [id number] PCP - General Infectious Diseases 03/23/24 Humberto Downs MD [address] [facility] [place] [address] Infectious Diseases 02/26/24 Mojgan Elizabeth, SPIKE MACHINE HEATER.SSIS DEVELOPER [address] [place] [address] Radiology 03/15/24 Tutor Relationship Specialty Start Date End Date Humberto Downs MD [address] [place] [facility] [place] [address] PCP - General Infectious Diseases 03/23/24 Humberto Downs MD [address] [place] [place] [address] Infectious Diseases 02/26/24 Mojgan Elizabeth, SPIKE MACHINE HEATER.SSIS DEVELOPER [address] [place] [address] Radiology 03/15/24 Tutor Relationship Specialty Start Date End Date Humberto Downs MD [address] [facility], [place] [phone] PCP - General Infectious Diseases 03/23/24 Humberto Downs MD [address] [place] [address] Infectious Diseases 02/26/24 Mojgan Elizabeth, SPIKE MACHINE HEATER.SSIS DEVELOPER [address] [place], [place] [id number] Radiology 03/15/24 Tutor Relationship Specialty Start Date End Date Generic Provider, [place] [address] PCP - General Reel Film Inspector 09/08/24 Team Status: Inactive Member Role Status Dates Dr. Humberto Downs MD Primary Care Provider Active Start: August 11, 2024 End: August 11, 2024 Dr. Humberto Downs MD Referring Provider Active Start: August 11, 2024 End: August 11, 2024 Dr. Yang Del Rio MD Attending Provider Active Start: August 11, 2024 End: August 11, 2024 Tutor Relationship Specialty Start Date End Date Humberto Downs MD [address] [facility], [place] [id number] PCP - General Infectious Diseases 03/23/24 Humberto Downs MD [address] [place] [address] Infectious Diseases 02/26/24 Mojgan Elizabeth, SPIKE MACHINE HEATER.SSIS DEVELOPER [address] [place], [place] [phone] Radiology 03/15/24 Tutor Relationship Specialty Start Date End Date Humberto Downs MD [address] [facility], [place] [address] PCP - General Infectious Diseases 03/23/24 Humberto Downs MD [address] [facility] [place] [place] [address] Infectious Diseases 02/26/24 Mojgan Elizabeth, SPIKE MACHINE HEATER.SSIS DEVELOPER [address] [place], [place] [id number] Radiology 03/15/24 Tutor Relationship Specialty Start Date End Date Pcp, No (History) PCP - General 11/22/24 Humberto Downs MD [address] [place] [address] Infectious Diseases 02/26/24 Mojgan Elizabeth, SPIKE MACHINE HEATER.SSIS DEVELOPER [address] [place] [address] Radiology 03/15/24 Tutor Relationship Specialty Start Date End Date Pcp, No (History) PCP - General 11/22/24 Humberto Downs MD [address] [place] [address] Infectious Diseases 02/26/24 Mojgan Elizabeth, SPIKE MACHINE HEATER.SSIS DEVELOPER [address] [place], [place] [phone] Radiology 03/15/24 Tutor Relationship Specialty Start Date End Date Pcp, No (History) PCP - General 11/22/24 Humberto Downs MD [address] [place] [place] [address] Infectious Diseases 02/26/24 Mojgan Elizabeth, SPIKE MACHINE HEATER.SSIS DEVELOPER [address] [place] [address] Radiology 03/15/24 Tutor Relationship Specialty Start Date End Date Pcp, No (History) PCP - General 11/22/24 Humberto Downs MD [address] [place] [address] Infectious Diseases 02/26/24 Mojgan Elizabeth, SPIKE MACHINE HEATER.SSIS DEVELOPER [address] [place] [address] Radiology 03/15/24 (unrecognized sect ion and content) No Status Records FoundNo Status Records FoundNo Status Records FoundNo Status Records FoundNo Status Records FoundNo Status Records FoundNo Status Records FoundNo Status Records FoundNo Status Records FoundNo Status Records Found INFORMATION SOURCE (unrecogn ized section and content) DATE CREATED AUTHOR 04/23/2023 [facility] DATE CREATED AUTHOR AUTHOR'S ORGANIZ ATION 11/23/[address] [facility] DATE CREATED AUTHOR AUTHOR'S ORGANIZ ATION 12/22/2023 [facility] DATE CREATED AUTHOR AUTHOR'S ORGANIZ ATION 01/05/[address] [facility] DATE CREATED AUTHOR AUTHOR'S ORGANIZ ATION 05/18/2024 [facility] DATE CREATED AUTHOR AUTHOR'S ORGANIZ ATION 09/15/2024 [facility] DATE CREATED AUTHOR AUTHOR'S ORGANIZ ATION 11/30/2024 [facility] DATE CREATED AUTHOR AUTHOR'S ORGANIZ ATION 12/05/2024 [facility] DATE CREATED AUTHOR AUTHOR'S ORGANIZ ATION 12/16/2024 [facility] DATE CREATED AUTHOR AUTHOR'S ORGANIZ ATION 12/23/2024 [facility] FOR RECORDS PERTAINING TO PATIENTS WHO ARE [...] BE BASED ON THE PRIMARY CLINICAL RECORDS. [facility]. provides no warranty or guarantee of the accuracy or completeness of information in this document.
[2024-12-23] MEDS: 0.9% Saline Lock 10 ML Syringe IV (22:14)
[2024-12-23 23:03] LABS: Troponin T High Sens 4 HR < 6 ng/L (<=22)
[2024-12-23] MEDS: busPIRone 5 MG Tablet 10 MG PO (23:36)
[2024-12-23] MEDS: Atorvastatin Calcium 40 MG Tablet PO (23:37)
[2024-12-23] MEDS: MELATONIN 10 MG TABLET PO (23:37)
[2024-12-24 01:45] VITALS: BP 111/77; PULSE 66; RESP 14; TEMP 36.6; O2SAT 100
[2024-12-24 01:51] VITALS: BMI 25.2
[2024-12-24 05:50] VITALS: BP 106/74; PULSE 74; RESP 15; TEMP 36.4; O2SAT 100
[2024-12-24 06:00] LABS: Absolute Lymphocyte Count 2.38 X10^3/uL (0.83-4.51); Absolute Neutrophil Count 3.4 X10^3/uL (2.0-7.7); Basophil# 0.05 X10^3/uL; Basophil% 0.7 % (0-1); Eosinophil# 0.21 X10^3/uL; Hematocrit 42.2 % (40-54); Hemoglobin 13.9 g/dL (13.0-16.5); Lymphocyte # 2.38 X10^3/ul (0.83-4.51); Lymphocyte % 34.2 % (19-41); Mean Corp Hgb Conc 32.9 g/dL (32-36); Mean Corpuscular Hgb 30.8 pg (27.0-32.0); Mean Corpuscular Volume 93.4 fL (80-94); Mean Platelet Vol. 8.6 fl (6.2-12.0); Monocyte# 0.91 X10^3/uL; Monocyte% 13.1 % (0-10); NRBC Flagged by Analyzer 0 % (0-5); Neutrophil # 3.38 X10^3/uL (2.7-7.7); Neutrophil % 48.6 % (47-70); Platelet Count 277 K/mm3 (150-450); RBC Distribution Width CV 14.6 % (11.6-14.6); RBC Distribution Width SD 50.7 fl (35.1-43.9); Red Blood Count 4.52 M/mm3 (4.6-6.2)
[2024-12-24 06:46] LABS: ALB/GLOB Ratio 1.6 RATIO (0.9-2.4); AST(SGOT) 20 U/L (<=37); Alanine Aminotransfer ALT/SGPT 21 U/L (<=46); Alkaline Phosphatase 105 U/L (40-129); Anion Gap 9 (5-15); BUN 10 mg/dL (4-19); BUN/Creat Ratio 10.2 RATIO (10-20); Calcium,Total 9.2 mg/dL (7.6-11.0); Carbon Dioxide 26.4 mmol/L (21.0-32.0); Chloride 105 mmol/L (98-108); Creatinine, Serum 0.95 mg/dL (0.70-1.20); EST Glomerular Filtration Rate 107 (>60); Globulin 2.5 g/dL (2.2-4.2); Glucose 89 mg/dL (70-99); Magnesium 2.2 mg/dL (1.5-2.2); Phosphorus 5.1 mg/dL (2.7-4.5); Potassium 4.3 mmol/L (3.3-5.1); Protein, Total 6.5 g/dL (5.9-8.4); Sodium Level 141 mmol/L (133-145); Total Bilirubin 0.24 mg/dL (0.00-1.30)
[2024-12-24 07:23] LABS: Cholesterol 96 mg/dL (<=200); High Density Lipoprotein 43 mg/dL; Low Density Lipoprotein Calc. 42 mg/dL; Triglycerides 56 mg/dL; Very Low Density Lipoprotein 11 mg/dL (5-40); cholesterol:hdl ratio screen 2.25
--- NOTE | 2024-12-24 07:41 | PCM.PN.HOSP ---
Reason for Visit Reason for Visit: Diagnoses Paresthesia of skin (12/23/24) Facial weakness (12/23/24) Weakness (12/23/24) Subjective Subjective Patient is a 34-year-old gentleman with history of TIAs who presented with left-sided weakness paresthesias as well as left facial droop Objective Data Objective Data Vital Signs: Vital Signs Temp Pulse Resp BP Pulse Ox O2 Del Method 97.6 F L 74 15 106/74 100 Room Air 12/24/24 05:50 12/24/24 05:50 12/24/24 05:50 12/24/24 05:50 12/24/24 05:50 12/24/24 05:50 Oxygen Delivery Method Room Air Weight: 75.438 kg Body Mass Index (BMI) 25.2 Intake & Output: Intake and Output for Last 24 Hours 12/22/24 12/23/24 12/24/24 23:59 23:59 23:59 Intake Total 300 / 300 0 / 0 Balance 300 / 300 0 / 0 Lab / Micro Data 12/24/24 05:25 12/24/24 05:25 Labs: Laboratory Results - last 24 hr 12/23/24 16:45: WBC 11.5 H, RBC 4.57 L, Hgb 14.0, Hct 42.0, MCV 91.9, MCH 30.6, MCHC 33.3, RDW Std Deviation 49.7 H, RDW Coeff of Carlyn 14.6, Plt Count 323, MPV 8.7, Immature Gran % (Auto) 0.500, Neut % (Auto) 52.7, Lymph % (Auto) 30.2, Mingo % (Auto) 13.2 H, Eos % (Auto) 2.9, Baso % (Auto) 0.5, Absolute Neuts (auto) 6.1, Absolute Lymphs (auto) 3.46, Nucleated RBC % 0, Differential Comment SCANNED, Platelet Estimate ADEQUATE, PT 12.8, INR 0.9, APTT 26.4, Sodium 135, Potassium 3.7, Chloride 99, Carbon Dioxide 23.5, Anion Gap 12, BUN 11, Creatinine 0.98, Estim Creat Clear Calc 100.82, Est GFR (MDRD) Non-Af 103, BUN/Creatinine Ratio 10.8, Glucose 88, Hemoglobin A1c 5.3, Calcium 8.6, Troponin T High Sens < 6 12/23/24 18:45: Troponin T Hi Sens 2 Hr < 6 12/23/24 18:50: Urine Opiates Screen NEGATIVE, U Buprenorphine Qual NEGATIVE, Ur Oxycodone Screen NEGATIVE, Urine Methadone Screen NEGATIVE, Urine Fentanyl Screen NEGATIVE, Ur Barbiturates Screen NEGATIVE, Ur Phencyclidine Scrn NEGATIVE, Ur Amphetamines Screen PRESUMPTIVE POSITIVE, U Benzodiazepines Scrn NEGATIVE, Urine Cocaine Screen NEGATIVE, U Cannabinoids Screen NEGATIVE 12/23/24 22:02: Troponin T Hi Sens 4Hr < 6 12/24/24 05:25: WBC 7.0, RBC 4.52 L, Hgb 13.9, Hct 42.2, MCV 93.4, MCH 30.8, MCHC 32.9, RDW Std Deviation 50.7 H, RDW Coeff of Carlyn 14.6, Plt Count 277, MPV 8.6, Immature Gran % (Auto) 0.400, Neut % (Auto) 48.6, Lymph % (Auto) 34.2, Mingo % (Auto) 13.1 H, Eos % (Auto) 3.0, Baso % (Auto) 0.7, Absolute Neuts (auto) 3.4, Absolute Lymphs (auto) 2.38, Nucleated RBC % 0, Sodium 141, Potassium 4.3, Chloride 105, Carbon Dioxide 26.4, Anion Gap 9, BUN 10, Creatinine 0.95, Estim Creat Clear Calc 104.00, Est GFR (MDRD) Non-Af 107, BUN/Creatinine Ratio 10.2, Glucose 89, Calcium 9.2, Phosphorus 5.1 H, Magnesium 2.2, Total Bilirubin 0.24, AST 20, ALT 21, Alkaline Phosphatase 105, Total Protein 6.5, Albumin 4.0, Globulin 2.5, Albumin/Globulin Ratio 1.6, Triglycerides 56, Cholesterol 96, LDL Cholesterol, Calc 42, VLDL Cholesterol 11, HDL Cholesterol 43, Cholesterol/HDL Ratio 2.25 Radiography Diagnostic Testing: Radiology Impression Brain CT 12/23/24 16:40 IMPRESSION: No acute, large territorial infarction. Reading Location: [facility] Head/Neck CTA 12/23/24 16:43 IMPRESSION: No acute large vessel occlusion or high-grade stenosis. Reading Location: [facility] Brain MRI 12/23/24 18:40 IMPRESSION: No acute intracranial hemorrhage or infarction. No abnormal enhancing lesions. Reading Location: [facility] Physical Exam Narrative GENERAL: cooperative HEENT: Atraumatic; normocephalic EYES; Anicteric, Normal Conjunctiva NECK; supple, normal thyroid, RESPIRATORY: Diminished to auscultation CARDIOVASCULAR: Regular S1 S2, GI: soft, normoactive bowel sounds, : No Renal angle tenderness; EXTREMITIES: No edema, no clubbing, MUSCULOSKELETAL: no muscle wasting NEURO: Awake; no lateralizing signs. SKIN: No Rash PSYCH; Flat affect Const Constitutional Narrative: Lower middle-aged, white male, sitting up in bed, family bedside, appears comfortable, nontoxic, nursing at bedside Eyes Eyes Narrative: No scleral icterus Neck Neck Narrative: Trachea midline Extremity Extremity Narrative: 2+ pulses Neuro Neuro Narrative: No leg drift or pronator drift on left side, no facial droop at this time, paresthesias on left face, left arm, left leg Assessment & Plan Assessment/Plan (1) Left-sided weakness: (2) Facial droop: (3) Paresthesias: PLAN: Plan Patient is a 34-year-old gentleman who presented with left-sided weakness paresthesias as well as left facial droop 1. Complex migraine ? Patient presented with Left-sided weakness/paresthesias/left facial droop. Patient admitted to a monitored bed underwent subsequent evaluation with MRI which was negative for CVA. Case was discussed with Dr. Shine with [facility] teleneurology who felt patient had complex migraine and no further workup was needed 2. HIV ? Patient is on Biktarvy and is followed by Dr. Bustillo plan is for patient to resume care following discharge 3. Dyslipidemia ?Patient is on statin therapy, continued at home dose 4. Polycystic kidney disease ? Outpatient follow-up with with primary care physician 6. Depression with anxiety ? Patient is on fluoxetine as well as buspirone 7. Allergic rhinitis ? Patient is on fluticasone 8. Sore throat ? Throat examination did not reveal any enlarged adenoids no erythema however ordered rapid strep throat 9. GERD ? On PPI 10. Tobacco dependence ? Counseled on cessation, offered nicotine patch for tobacco cravings 11.DVT prophylaxis - subcu Lovenox daily CODE STATUS - Full code NIHSS NIHSS Nursing Documentation NIHSS Nursing Documentation: NIHSS: Ischemic Stroke/TIA Start: 12/23/24 21:37 Text: For PCU Patients: NIH and Neuro Check every 4 Status: Active hours, PRN and with change in RN caregiver. Freq: [id number] Protocol: Activity Type Activity Date Activity User E-sign Co-sign Detail Recorded Client Recorded Date Recorded By Document 12/24/24 05:50 MG [id number] 12/24/24 06:00 MG 12/24/24 05:50 NIH Stroke Scale [NIHSS] A score of 0 is normal or asymptomatic . Total possible score is 42. Inpatient: RN or Physician to activate a stroke alert for onset of new stroke symptoms or with NIHSS increase >/= 3 points. Following change in neurological status, NIHSS will be performed per physician order or more frequently PRN. -1a. Level of Consciousness 0 - Alert; keenly responsive -1b. LOC Questions 0 - Answers BOTH questions correctly -1c. LOC Commands 0 - Performs BOTH tasks correctly -2. Best Gaze 0 - Normal -3. Visual 0 - No visual loss -4. Facial Palsy 0 - Normal symmetrical movements -5a. Left Arm 0 - No drift; arm holds 90 ( or 45) degrees for full 10 seconds -5b. Right Arm 0 - No drift; arm holds 90 ( or 45) degrees for full 10 seconds -6a. Left Leg 0 - No drift; leg holds 30- degree position for full 5 seconds -6b. Right Leg 0 - No drift; leg holds 30- degree position for full 5 seconds -7. Limb Ataxia 0 - Absent -8. Sensory 1 - Mild-to- moderate sensory loss; -9. Best Language 0 - No aphasia; normal -10. Dysarthria 0 - Normal -11. Extinction and Inattention 0 - No abnormality -Total 1 Query Text:A score of 0 is normal or asymptomatic. Total possible score is 42 . ED: Notify Physician for NIHSS increase by > / = 3 points. Inpatient: RN or Physician to activate a stroke alert for NIHSS increase of > / = 3 points. Coma Scale [Assess] -Eye Opening Spontaneous -Motor Obeys Commands -Verbal Oriented [Total] -Coma Scale Total 15
[2024-12-24] MEDS: Fluticasone 0.05% 1 SPRAY NASAL.SRY NASAL (09:19)
[2024-12-24] MEDS: Enoxaparin 40 MG/0.4 ML Syringe SC (09:19)
[2024-12-24] MEDS: busPIRone 5 MG Tablet 10 MG PO (09:20)
[2024-12-24] MEDS: Pantoprazole Sodium 40 MG Tablet PO (09:20)
[2024-12-24] MEDS: Lactobacillis Acidophilus 1 CAP PO (09:20)
[2024-12-24] MEDS: Cholecalciferol (VIT D3) 25 MCG TABLET (1,000 UNITS) 50 MCG PO (09:20)
[2024-12-24] MEDS: Multivitamins,Therapeutic Tablet 1 TABLET PO (09:20)
[2024-12-24] MEDS: Clopidogrel Bisulfate 75 MG Tablet PO (09:20)
[2024-12-24] MEDS: Aspirin 81 MG TAB.CHEW PO (09:20)
[2024-12-24] MEDS: Fluoxetine HCl 40 MG CAPSULE PO (09:21)
[2024-12-24 09:28] VITALS: BP 122/90; PULSE 72; RESP 15; TEMP 36.7; O2SAT 100
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
--- NOTE | 2024-12-24 13:20 | DS.PCM_ITS ---
Providers Date of Admission: 12/23/24 Date of Discharge: 12/24/24 Primary Care Physician: Dr. Giuliano Bustillo MD Consultations 12/23/24 21:37 Consult: Tele-Neurology Routine Consulting Provider: [facility] Reason for Consult: Acute Ischemic Stroke/TIA EMERGENT Consult: No MD Notified: Yes Date Notified: 12/23/24 Time Notified: 22:03 Method of Notification: Answering Service Nursing Unit Staff Notify [facility] of Tele-Neurology Consult: Yes Reason For Visit: L PARASTHESIAS/L SIDED WEAKNESS/L FACIAL DROOP Diagnosis Discharge Diagnosis (1) Left-sided weakness: Status: Acute Code(s): R53.1 - Weakness (2) Facial droop: Status: Acute Code(s): R29.810 - Facial weakness (3) Paresthesias: Status: Acute Code(s): R20.2 - Paresthesia of skin Plan Patient is a 34-year-old gentleman who presented with left-sided weakness paresthesias as well as left facial droop 1. Complex migraine ? Patient presented with Left-sided weakness/paresthesias/left facial droop. Patient admitted to a monitored bed underwent subsequent evaluation with MRI which was negative for CVA. Case was discussed with Dr. Shine with [facility] teleneurology who felt patient had complex migraine and no further workup was needed 2. HIV ? Patient is on Biktarvy and is followed by Dr. Bustillo plan is for patient to resume care following discharge 3. Dyslipidemia ?Patient is on statin therapy, continued at home dose 4. Polycystic kidney disease ? Outpatient follow-up with with primary care physician 6. Depression with anxiety ? Patient is on fluoxetine as well as buspirone 7. Allergic rhinitis ? Patient is on fluticasone 8. Sore throat ? Throat examination did not reveal any enlarged adenoids no erythema however ordered rapid strep throat ? Strep throat PCR came back negative 9. GERD ? On PPI 10. Tobacco dependence ? Counseled on cessation, offered nicotine patch for tobacco cravings 11.DVT prophylaxis - subcu Lovenox daily CODE STATUS - Full code Medications at Discharge Home Medications bictegravir 50 mg-emtricitabine 200 mg-tenofovir alafenam 25 mg tablet (Biktarvy) 1 tab PO DAILY 11/25/22 albuterol sulfate 90 mcg/actuation aerosol inhaler 1 inh inhalation DAILY PRN shortness of breath or wheezing 08/27/23 ondansetron 4 mg disintegrating tablet 4 mg PO Q8H PRN PRN Nausea #10 tabs 12/06/23 lactobacillus combination no.9 4 billion cell capsule (Adult 50 Plus Probiotic) 4,000 mmu cells PO DAILY 03/10/24 propranolol 20 mg tablet 20 mg PO QDAY 03/10/24 cholecalciferol (vitamin D3) 25 mcg (1,000 unit) capsule (Vitamin D3) 50 mcg PO QDAY 03/31/24 fluticasone propionate 50 mcg/actuation nasal spray,suspension (Flonase Allergy Relief) 1 spray intranasal QDAY 03/31/24 eiamflgy-hhdhlnam-twofc acid 400 mcg-vit K 20 mcg-lycop 300 mcg tablet (One-A-Day Men's Multivitamin) 1 tab PO DAILY 03/31/24 fluoxetine 40 mg capsule 40 mg PO QDAY 04/14/24 buspirone 5 mg tablet 10 mg PO BID 08/11/24 aspirin 81 mg chewable tablet 1 tab PO DAILY 12/23/24 atorvastatin 40 mg tablet 40 mg PO QHS 12/23/24 melatonin 10 mg capsule 10 mg PO DAILY 12/23/24 pantoprazole 40 mg tablet,delayed release 40 mg PO DAILY 12/23/24 acetaminophen 325 mg tablet 650 mg (2 x 325 mg) PO Q4H PRN PRN Pain 1-10 Or Fever>99.6 #0 tabs 12/24/24 Hospital Course Summary of Care Provided Minutes Spent on Discharge: 35 Physical Exam Narrative GENERAL: cooperative HEENT: Atraumatic; normocephalic EYES; Anicteric, Normal Conjunctiva NECK; supple, normal thyroid, RESPIRATORY: Diminished to auscultation CARDIOVASCULAR: Regular S1 S2, GI: soft, normoactive bowel sounds, : No Renal angle tenderness; EXTREMITIES: No edema, no clubbing, MUSCULOSKELETAL: no muscle wasting NEURO: Awake; no lateralizing signs. SKIN: No Rash PSYCH; Flat affect Weight / BMI Weight Weight: 75.438 kg Body Mass Index (BMI) 25.2 ABG / Lab / Microbiology Data 12/24/24 05:25 12/24/24 05:25 Laboratory: Laboratory Results - last 24 hr 12/23/24 16:45: WBC 11.5 H, RBC 4.57 L, Hgb 14.0, Hct 42.0, MCV 91.9, MCH 30.6, MCHC 33.3, RDW Std Deviation 49.7 H, RDW Coeff of Carlyn 14.6, Plt Count 323, MPV 8.7, Immature Gran % (Auto) 0.500, Neut % (Auto) 52.7, Lymph % (Auto) 30.2, [place] % (Auto) 13.2 H, Eos % (Auto) 2.9, Baso % (Auto) 0.5, Absolute Neuts (auto) 6.1, Absolute Lymphs (auto) 3.46, Nucleated RBC % 0, Differential Comment SCANNED, Platelet Estimate ADEQUATE, PT 12.8, INR 0.9, APTT 26.4, Sodium 135, Potassium 3.7, Chloride 99, Carbon Dioxide 23.5, Anion Gap 12, BUN 11, Creatinine 0.98, Estim Creat Clear Calc 100.82, Est GFR (MDRD) Non-Af 103, BUN/Creatinine Ratio 10.8, Glucose 88, Hemoglobin A1c 5.3, Calcium 8.6, Troponin T High Sens < 6 12/23/24 18:45: Troponin T Hi Sens 2 Hr < 6 12/23/24 18:50: Urine Opiates Screen NEGATIVE, U Buprenorphine Qual NEGATIVE, Ur Oxycodone Screen NEGATIVE, Urine Methadone Screen NEGATIVE, Urine Fentanyl Screen NEGATIVE, Ur Barbiturates Screen NEGATIVE, Ur Phencyclidine Scrn NEGATIVE, Ur Amphetamines Screen PRESUMPTIVE POSITIVE, U Benzodiazepines Scrn NEGATIVE, Urine Cocaine Screen NEGATIVE, U Cannabinoids Screen NEGATIVE 12/23/24 22:02: Troponin T Hi Sens 4Hr < 6 12/24/24 05:25: WBC 7.0, RBC 4.52 L, Hgb 13.9, Hct 42.2, MCV 93.4, MCH 30.8, MCHC 32.9, RDW Std Deviation 50.7 H, RDW Coeff of Carlyn 14.6, Plt Count 277, MPV 8.6, Immature Gran % (Auto) 0.400, Neut % (Auto) 48.6, Lymph % (Auto) 34.2, [place] % (Auto) 13.1 H, Eos % (Auto) 3.0, Baso % (Auto) 0.7, Absolute Neuts (auto) 3.4, Absolute Lymphs (auto) 2.38, Nucleated RBC % 0, Sodium 141, Potassium 4.3, Chloride 105, Carbon Dioxide 26.4, Anion Gap 9, BUN 10, Creatinine 0.95, Estim Creat Clear Calc 104.00, Est GFR (MDRD) Non-Af 107, BUN/Creatinine Ratio 10.2, Glucose 89, Calcium 9.2, Phosphorus 5.1 H, Magnesium 2.2, Total Bilirubin 0.24, AST 20, ALT 21, Alkaline Phosphatase 105, Total Protein 6.5, Albumin 4.0, Globulin 2.5, Albumin/Globulin Ratio 1.6, Triglycerides 56, Cholesterol 96, LDL Cholesterol, Calc 42, VLDL Cholesterol 11, HDL Cholesterol 43, Cholesterol/HDL Ratio 2.25 Microbiology: Microbiology 12/24/24 11:43 Mucosa - Throat Streptococcus pyogenes (PCR) - Final Radiography Diagnostic Testing: Radiology Impression Brain CT 12/23/24 16:40 IMPRESSION: No acute, large territorial infarction. Reading Location: [facility] Head/Neck CTA 12/23/24 16:43 IMPRESSION: No acute large vessel occlusion or high-grade stenosis. Reading Location: [facility] Brain MRI 12/23/24 18:40 IMPRESSION: No acute intracranial hemorrhage or infarction. No abnormal enhancing lesions. Reading Location: [facility] D/C Instructions Discharge Diet: No restrictions Discharge Activity: Return to Normal Activity Call your doctor if you observe: Fever of 101 or Higher, Shortness of breath, Fainting spells and Chest pain DC O2, CPAP, BIPAP Needs Home O2 Discharge instructions: No Meaningful Use Info Meaningful Use Meaningful Use Diagnoses (Choose all that apply): None applicable Ischemic Stroke Statin Dosing Therapy Reference: STATIN DOSE THERAPY REFERENCE: * Patients > 75 years receive moderate or high dose statin therapy. * Patients 75 years or YOUNGER should receive HIGH intensity statin dose unless contraindicated. You will be required to document reason for non-treatment if statin daily dose does not meet guidelines. HIGH DOSE STATIN THERAPY DAILY Atorvastatin > than or = to 40 mg Rosuvastatin > than or = to 20 mg Amlodipine + Atorvastatin > than or = to 2.5/40 mg Ezetimibe + Simvastatin 10/80 mg Simvastatin 80mg Discharge Plan Admission Admit Date/Time: 12/23/24 18:34 Attending Provider: Gutierrez Polanco Primary Care Provider: Giuliano Bustillo Consulting Providers: Martir Dubose; Addie Ayala; Adilene Nava; Judy Tena; Azeb Ghotra; Tye Bee; Sarah Corrales; Shekhar Dunne; Richard García; Samuel Luna; Minda Villagran; Biju Calvin; Deborah Miles; Karl Hoang; Sarai Montgomery; Juan Hayward; Justine Sandoval; Valerio Coppola; Monica Lopez; Brennan Simon; Daija Lopez Discharge Orders/Prescriptions Prescriptions: New acetaminophen 325 mg Tablet 650 mg PO Q4H PRN PRN (Reason: Pain 1-10 Or Fever>99.6) Qty: 0 0RF Continued propranolol 20 mg tablet 20 mg PO QDAY Adult 50 Plus Probiotic 4 billion cell capsule 4,000 mmu cells PO DAILY buspirone 5 mg tablet 10 mg PO BID fluticasone propionate [Flonase Allergy Relief] 50 mcg/actuation spray,suspension 1 spray intranasal QDAY Rx Instructions: administer into each nostril One-A-Day Men's Multivitamin 400-20-300 mcg tablet 1 tab PO DAILY fluoxetine 40 mg capsule 40 mg PO QDAY Biktarvy 50-200-25 mg Tablet 1 tab PO DAILY cholecalciferol (vitamin D3) [Vitamin D3] 25 mcg (1,000 unit) capsule 50 mcg PO QDAY albuterol sulfate 90 mcg/actuation HFA aerosol inhaler 1 inh INHALATION DAILY PRN (Reason: shortness of breath or wheezing) aspirin 81 mg tablet,chewable 1 tab PO DAILY atorvastatin 40 mg tablet 40 mg PO QHS pantoprazole 40 mg tablet,delayed release (DR/EC) 40 mg PO DAILY melatonin 10 mg capsule 10 mg PO DAILY ondansetron 4 mg tablet,disintegrating 4 mg PO Q8H PRN PRN (Reason: Nausea) Qty: 10 0RF Referrals / Follow Up: Giuliano Bustillo MD [Primary Care Provider] - Disposition Disposition (needs filled in before D/C Order can be placed): Home, Self Care Charges/Coding Visit Charges Inpatient E&M: 57917 Disch Hosp >30min
--- NOTE | 2024-12-24 13:43 | CASEMGMT ---
SW did not complete a PHQ9 as patient did not have a Stroke or TIA. Kymberly ECHOLS
--- NOTE | 2024-12-24 14:46 | CASEMGMT ---
Patient has order for discharge. RN CM in to discuss needs at discharge. Patient denies needs or help at discharge. Patient had no further questions or concerns.
[2024-12-27 17:26] LABS: Bedside Glucose 83 mg/dL (74-106)
== END 2024-12-24 15:40 | disposition home or self-care (01) ==
LOC: ED 18:32 → PCU 18:58
PROVIDERS: Admitting Provider Internal Medicine; Emergency Provider Emergency Medicine; PCP Internal Medicine Infectious Disease; Referring Provider Emergency Medicine; Visit Provider Internal Medicine
DX: G43.109 Migraine with aura, not intractable, without status migrainosus (principal); Z21 Asymptomatic human immunodeficiency virus [HIV] infection status; R20.2 Paresthesia of skin; Z59.00 Homelessness unspecified; Z79.82 Long term (current) use of aspirin; F17.210 Nicotine dependence, cigarettes, uncomplicated; R41.0 Disorientation, unspecified; I10 Essential (primary) hypertension; K21.9 Gastro-esophageal reflux disease without esophagitis; Z86.73 Personal history of transient ischemic attack (TIA), and cerebral infarction without residual deficits; Z82.49 Family history of ischemic heart disease and other diseases of the circulatory system; R29.810 Facial weakness; Z79.899 Other long term (current) drug therapy; J45.909 Unspecified asthma, uncomplicated; Z79.51 Long term (current) use of inhaled steroids; Q61.3 Polycystic kidney, unspecified; F41.9 Anxiety disorder, unspecified; F32.A Depression, unspecified; J02.9 Acute pharyngitis, unspecified
CPT/HCPCS: 70450; 70496; 70498; 70553; 80048; 80053; 80061; 80307; 82962; 83036; 83735; 84100; 84484; 85025; 85610; 85730; 87651; 92610; 93005; 96372; 97161; 97802; 99221; 99285; A9575; Q9967; A4216; G0378

== ENCOUNTER 2025-01-13 15:48 | Outpatient (CLI) | payer MEDICAID, SELFPAY ==
[2025-01-15 10:08] LABS: Lyme Scn Total Ab w/Rflx Negative (Negative)
== END 2025-01-13 23:59 | disposition home or self-care (01) ==
LOC: MTLAB 15:50
PROVIDERS: Referring Provider Psychiatry & Neurology Neurology; Visit Provider Psychiatry & Neurology Neurology
DX: T14.8XXA Other injury of unspecified body region, initial encounter (principal); W57.XXXA Bitten or stung by nonvenomous insect and other nonvenomous arthropods, initial encounter
CPT/HCPCS: 36415; 86618

== ENCOUNTER → 2025-03-02 | Outpatient (CLI) | payer MEDICAID, SELFPAY ==
[2025-03-02 15:42] LABS: Hematocrit 41.7 % (40-54); Hemoglobin 14.1 g/dL (13.0-16.5); Mean Corp Hgb Conc 33.8 g/dL (32-36); Mean Corpuscular Volume 92.5 fL (80-94); Mean Platelet Vol. 9.1 fl (6.2-12.0); Platelet Count 270 K/mm3 (150-450); RBC Distribution Width CV 15.2 % (11.6-14.6); RBC Distribution Width SD 51.8 fl (35.1-43.9); Red Blood Count 4.51 M/mm3 (4.6-6.2); White Blood Count 10.0 K/mm3 (4.4-11.0)
[2025-03-02 16:24] LABS: Anion Gap 13 (5-15); BUN 13 mg/dL (4-19); BUN/Creat Ratio 15.1 RATIO (10-20); Calcium,Total 9.4 mg/dL (7.6-11.0); Carbon Dioxide 23.3 mmol/L (21.0-32.0); Chloride 103 mmol/L (98-108); Glucose 83 mg/dL (70-99); Potassium 4.2 mmol/L (3.3-5.1); Syphilis Antibodies Nonreactive (Nonreactive)
[2025-03-04 14:08] LABS: Hematocrit 44.5 % (37.5-51.0); Hemoglobin 14.3 g/dL (13.0-17.7); MCH 31.2 pg (26.6-33.0); MCHC 32.1 g/dL (31.5-35.7); MCV 97 fL (79-97); Percent % CD4 Pos. Lymph. 30.0 % (30.8-58.5); RDW 14.8 % (11.6-15.4)
[2025-03-05 04:07] LABS: HIV-1 RNA by PCR, Quant. < 20 copies/mL (.)
== END | disposition home or self-care (01) ==
LOC: LAB 15:03
PROVIDERS: Referring Provider Internal Medicine Infectious Disease; Visit Provider Internal Medicine Infectious Disease
DX: Z21 Asymptomatic human immunodeficiency virus [HIV] infection status (principal)
CPT/HCPCS: 36415; 80048; 85027; 86361; 86780; 87491; 87536; 87591

== ENCOUNTER → 2025-03-31 | Outpatient (CLI) | payer MEDICAID, SELFPAY ==
--- OUTSIDE RECORDS SUMMARY | 2025-03-31 07:01 | XMS RPT_ITS | CCD ---
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 Pal Wilson Emergency Provider Dr. Addie Ayala Other Provider MD Minda Villagran Other Provider Dr. Shekhar Dunne Other Provider Dr. Magalie García Other Provider MD Martir Dubose Other Provider Unavailable Dr. Tye Bee Other Provider [phone] Tj Calvin Other Provider MD Brennan Simon Other Provider Unavailable MD Adilene Nava Other Provider Unavailable Dr. Justine Sandoval Other Provider Dr. Judy Tena Other Provider [phone] Sarah Corrales Other Provider Dr. Valerio Coppola Other Provider Dr. Monica Lopez Other Provider Unavailable Dr. Deborah Miles Other Provider Dr. Karl Hoang Other Provider [phone] Juan Hayward Other Provider Dr. Sarai Montgomery Other Provider Dr. Azeb Ghotra Other Provider Dr. Pankaj Rao Admit Provider Dr. Pankaj Rao Attending Provider Dr. Pankaj Rao Other Provider Dr. Humberto Downs Other Provider MD Elio Santacruz Other Provider Cristiluz maria, MS Valentino Other Provider MD Sandra Chandler Other Provider MD AILYN EATON Other Provider MD Kerwin Rachel Other Provider MD Shira Boss Other Provider Dr. Simin Moseley Attending Provider [phone] Dr. Simin Moseley Other Provider Dr. Rebekah Palomares Attending Provider DO Tommy Swanson Emergency Provider NO FAMILY, PHYSICIAN Primary Care Provider Unava ilable Tommy Swanson Admitting Unavailable Tommy Swanson Attending Unavailable NO FAMILY, PHYSICIAN Primary Care Unavailable Care Physician, No Primary Primary Care Provider Unavailable Dr. Pal Wilson Emergency Provider Dr. Addie Ayala Other Provider MD Minda Villagran Other Provider [phone] Shekhar Dunne Other Provider Dr. Magalie García Other Provider MD Martir Dubose Other Provider Unavailable Dr. Tye Bee Other Provider [phone] Tj Calvin Other Provider MD Brennan Simon Other Provider Unavailable MD Adilene Nava Other Provider Unavailable Dr. Justine Sandoval Other Provider Dr. Judy Tena Other Provider Dr. Sarah Corrales Other Provider Dr. Valerio Coppola Other Provider Dr. Monica Lopez Other Provider Unavailable Dr. Deborah Miles Other Provider Dr. Karl Hoang Other Provider [phone] Dr. Juan Hayward Other Provider Dr. Sarai Montgomery Other Provider Dr. Azeb Ghotra Other Provider Dr. Pankaj Rao Admit Provider Dr. Pankaj Rao Attending Provider Dr. Pankaj Rao Other Provider Dr. Humberto Downs Other Provider MD Elio Santacruz Other Provider Cristiluz maria, MS Chicho Other Provider MD Sandra Chandler Other Provider MD AILYN EATON Other Provider MD Kerwin Rachel Other Provider MD Shira Boss Other Provider Dr. Simin Moseley Attending Provider Dr. Simin Moseley Other Provider Dr. 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 Skye Lopez DO Attending Provider Dr. Skye Lopez DO Referring Provider Dr. Humberto Downs MD Primary Care Provider Dr. Yang Del Rio MD Attending Provider Dr. Humberto Downs MD Referring Provider Dr. Kyle Valerio DO Referring Provider Dr. Kyle Valerio DO Emergency Provider Dr. Daija Lopez DO Admit Provider Dr. Daija Lopez DO Attending Provider Dr. Humberto Downs MD Primary Care Provider Dr. Yang Del Rio MD Attending Provider Dr. Yang Del Rio MD Referring Provider Dr. Daija Lopez DO Other Provider Martir Dubose MD Other Provider Unavailable Lucy TATUM, Dr. Real Other Provider Adilene Nava MD Other Provider Unavailable Dr. Judy Tena DO Other Provider Brandin TATUM, Dr. Bowie Other Provider Rohit TATUM, Dr. Gamble Other Provider Savanna TATUM, Dr. Smith Other Provider Vibha TATUM, Dr. Corrigan Other Provider [phone] Ricky TATUM, Dr. Ramos Other Provider Jeremy TATUM, Dr. Baker Other Provider Sparkle TATUM, Minda Other Provider Marixa TATUM, Dr. Ivy Other Provider Jd TATUM, Dr. Cabrera Other Provider Natalya TATUM, Dr. Barajas Other Provider Ulises TATUM, Dr. Sarai Sanchez Other Provider Mainor TATUM, Dr. Martinez Other Provider Jaime TATUM, Dr. Fletcher Other Provider Abdon TATUM, Dr. Luo Other Provider John TATUM, Dr. Anderson Other Provider Unavailable Alfred TATUM, Yousedeep Other Provider Unavailable Dr. Gutierrez Polanco MD Attending Provider Unavaileddy Polanco MD, Dr. Whitley Other Provider Unavailable Gabby Christina MD Primary Care Provider Dr. Humberto Downs MD Primary Care Provider Dr. Humberto Downs MD Referring Provider MAGDA GARCIA Referring Unavailable GABBY CHRISTINA Primary Care Unavailable GABBY CHRISTINA Primary Care Provider Humberto Downs MD Primary Care Provider Pcp, No (History) Primary Care Provider UnavailDr. Humberto Tai MD Referring Provider Ata Mendieta Attending Provider Bailey TATUM, Dr. Lam Attending Provider Yareli TATUM, Dr. Nobles Primary Care Provider Eliane TATUM, Dr. Soria Attending Provider Eliane TATUM, Dr. Soria Referring Provider Yareli TATUM, Dr. Nobles Referring Provider Care Physician, No Primary Primary Care Provider Unavailable Yareli TATUM, Dr. Nobles Attending Provider [phone] MAGDA GARCIA Referring Unavailable DIPTI, GABBY Primary Care Unavailable MASCI, MEAGHAN A Attending Unavailable WORTHBRIAN MOJGAN Referring Unavailable BENDARAM, TALI IRENE Attending Unavaila ble YARELI, HUMBERTO E Primary Care Unavailable SIMONE, MARCEL A Referring Unavailable DIPTI, GABBY Primary Care Unavailable BENDARAM, TALI IRENE Attending Unavaila ble MASCI, MEAGHAN A Referring Unavailable YARELI, HUMBERTO E Primary Care Unavailable BENDARAM, TALI IRENE Attending Unavaila ble YARELI, HUMBERTO E Primary Care Unavailable CATHI PARKS Attending Unavailable YARELI, HUMBERTO E Primary Care Unavailable BENDARAM, TALI IRENE Referring Unavaila ble YARELI, HUMBERTO E Primary Care Unavailable PENG VANCE Attending Unavailable SIMONEMARCEL A Referring Unavailable SIMONEMARCEL A Referring Unavailable DIPTI, GABBY Primary Care Unavailable CATHI PARKS Attending Unavailable YARELI, HUMBERTO E Primary Care Unavailable SIMONEMARCEL Attending Unavailable CHARLYCATHI Referring Unavailable MAGDA GARCIA Attending Unavailable DIPTI, GABBY Primary Care Unavailable DIPTI, GABBY Primary Care Unavailable MASCI, MEAGHAN A Referring Unavailable MASCI, MEAGHAN A Referring Unavailable CHARLYCATHI Attending Unavailable DIPTI, GABBY Attending Unavailable DIPTI, GABBY Primary Care Unavailable CHARLYCATHI Referring Unavailable YARELI, HUMBERTO E Primary Care Unavailable MASCI, MEAGHAN A Referring Unavailable YARELI, HUMBERTO E Primary Care Unavailable TORY LAMBERT Attending Unavailable CATHI PARKS Referring Unavailable CHARLYCATHI Referring Unavailable YARELI, HUMBERTO E Primary Care Unavailable MAC HAN Attending Unavailable DIPTI, GABBY Referring Unavailable DIPTI, GABBY Primary Care Unavailable TJ AHUMADA Attending Unavailable Yareli, Humberto Primary Care Unavailable Skye Lopez Attending Unavailable John, Skye Referring Unavailable Yareli, Humberto Primary Care Unavailable Jelani, Rebekah Referring Unavailable Jelani, Rebekah Attending Unavailable Baddour, Yang Referring Unavailable Baddour, Yang Attending Unavailable HUGO HERNANDEZ Primary Care Unavailable Baddour, Yang Referring Unavailable Yareli, Humberto Primary Care Unavailable Baddour, Yang Attending Unavailable Yareli, Humberto Primary Care Unavailable Pete Mcmahan Attending Unavailable Martir, Pete Referring Unavailable Yareli, Humberto Primary Care Unavailable Skye Lopez Referring Unavailable Skye Lopez Attending Unavailable Yoladour, Yang Attending Unavailable Baddour, Yang Referring Unavailable Yareli, Humberto Primary Care Unavailable Daija Lopez Admitting Unavailable Yareli, Humberto Primary Care Unavailable Martir Dubose Consulting Unavailable Kyle Valerio Referring Unavailable Gutierrez Polanco Attending Unavailable AdeAddie merritt Consulting Unavailable Hindudelia, Adilene Consulting Unavailable Darinel, Judy Consulting Unavailable Zha, Azeb Consulting Unavailable Rohit, Tye Consulting Unavailable Savanna, Sarah Consulting Unavailable Shekhar Dunne Consulting Unavailable Magalie García Consulting Unavailable Samuel Luna Consulting Unavailable Minda Villagran Consulting Unavailable Tj Calvin Consulting Unavailable Deborah Miles Consulting Unavailable Karl Hoang Consulting Unavailable Ulises, aSrai Sanchez Consulting UnavailJuan Perez Consulting Unavailable Justine Sandoval Consulting Unavailable Valerio Coppola Consulting Unavailable Monica Lopez Consulting Unavailable Brennan Simon Consulting Unavailable Daija Lopez Consulting Unavailable Yoladour, Yang Attending Unavailable Yareli, Humberto Primary Care Unavailable Yareli, Humberto Referring Unavailable Yareli, Humebrto Referring Unavailable Yareli, Humberto Primary Care Unavailable Jelani, Rebekah Attending Unavailable Yareli, Humberto Primary Care Unavailable Yareli, Humberto Referring Unavailable Jelani, Rebekah Attending Unavailable Yareli, Humberto Primary Care Unavailable Yareli, Humberto Referring Unavailable Jelani, Rebekah Attending Unavailable Baddour, Yang Referring Unavailable Yareli, Humberto Primary Care Unavailable Baddour, Yang Attending Unavailable Baddocheri, Yang Attending Unavailable Baddour, Yang Referring Unavailable Yareli, Humberto Primary Care Unavailable Yareli, Humberto Primary Care Unavailable Nancy Riley Attending Unavailable Yoladour, Yang Attending Unavailable Baddour, Yang Referring Unavailable Yareli, Humberto Primary Care Unavailable Baddour, Yang Referring Unavailable Baddour, Yang Attending Unavailable Yareli, Humberto Primary Care Unavailable Yoladocheri, Yang Attending Unavailable Care Physician, No Primary Referring Unava ilable Care Physician, No Primary Primary Care Unava ilable Daija Lopez Admitting Unavailable Daija Lopez Attending Unavailable Daija Lopez Consulting Unavailable Yareli, Humberto Primary Care Unavailable Kyle Valerio Referring Unavailable Baddour, Yang Attending Unavailable Baddour, Yang Referring Unavailable Baddour, Yang Attending Unavailable Yareli, Humberto Referring Unavailable Care Physician, No Primary Primary Care Unava ilable Yareli, Humberto Primary Care Unavailable JelaniRebekah gutierrez Referring Unavailable JelaniRebekah gutierrez Attending Unavailable Baddour, Yang Referring Unavailable Yareli, Humberto Primary Care Unavailable Baddour, Yang Attending Unavailable Yareli, Humberto Referring Unavailable Yareli, Humberto Attending Unavailable Care Physician, No Primary Primary Care Unava ilable Ata Mendieta Attending Unavailable Genaro Avalos Attending Unavailable Baddour, Yang Referring Unavailable Yareli, Humberto Primary Care Unavailable Genaro Avalos Attending Unavailable Martir Dubose Consulting Unavailable Gutierrez Polanco Attending Unavailable Addie Ayala Consulting Unavailable Hindruy Adilene Consulting Unavailable Darinel Judy Consulting Unavailable Zha, Azeb Consulting Unavailable Rohit, Tye Consulting Unavailable Savanna, Sarah Consulting Unavailable BittaShekhar coker Consulting Unavailable Magalie García Consulting Unavailable Samuel Luna Consulting Unavailable Minda Villagran Consulting Unavailable Tj Calvin Consulting Unavailable Deborah Miles Consulting Unavailable Karl Hoang Consulting Unavailable Sarai Montgomery Consulting UnavailJuan Perez Consulting Unavailable Justine Sandoval Consulting Unavailable Valerio Coppola Consulting Unavailable Monica Lopez Consulting Unavailable Brennan Simon Consulting Unavailable Gutierrez Polanco Consulting Unavailable Yareli, Humberto Primary Care Unavailable Skye Lopez Referring Unavailable Skye Lopez Attending Unavailable Allergies Allergy Classification Reported Allergen(s) Allergy Type Date of Onset Reaction(s) Facility Unclassified (20 sources) Antihistimine; Translations: [ANTIHISTIMINE] Drug Allergy 06-19-20 15 Mental Status Change [facility] (13 sources) Ethylenediamine derivative antihistamine Propensity to adverse reactions 03-21-20 Other [facility] (20 sources) Shellfish; Translations: [shellfish derived] Propensity to adverse reactions 03-21-20 22 Diarrhea [facility] (20 sources) Antihistamines - Alkylamine Propensity to adverse reactions 03-21-20 22 Other, Unknown Reaction [facility] (13 sources) Antihistamines - Ethanolamine Propensity to adverse reactions 03-21-20 Other [facility] (13 sources) Antihistamines - Piperazine Propensity to adverse reactions 03-21-20 Other [facility] (13 sources) Antihistamines - Piperidine Propensity to adverse reactions 03-21-20 Other [facility] (20 sources) Metoclopramide; Translations: [METOCLOPRAMIDE] Drug Allergy 01-29-20 19 Mental Status Change, Other: See Comments, Anxiety, Hallucinations [facility] (20 sources) Prochlorperazine; Translations: [PROCHLORPERAZINE] Drug Allergy 01-29-20 19 Mental Status Change, Other: See Comments, Anxiety [facility] (20 sources) meloxicam; Translations: [MELOXICAM] Drug Allergy 04-18-20 23 Anaphylaxis, Hives, Itching, SOB, Wheezing [facility] (2 sources) meloxicam Drug Allergy 11-13-19 [facility] (2 sources) Metoclopramide Drug Allergy 11-13-19 [facility] (2 sources) Prochlorperazine Drug Allergy 11-13-19 [facility] (2 sources) Antihistamines - Alkylamine Drug allergy (disorder) 11-13-19 [facility] Rep[facility] (1 source) diphenhydrAMINE Drug Allergy [facility] Repository (1 source) meloxicam Drug Allergy [facility] Repository (4 sources) Propylamine derivative antihistamine Propensity to adverse reactions 04-18-20 23 Anxiety, Palpitations [facility] Work Phone: (4 sources) Shellfish Propensity to adverse reactions 04-18-20 23 Nausea and Vomiting [facility] Work Phone: (1 source) ALLERGIES NOT ON FILE; Translations: [ALLERGIES NOT ON FILE] Propensity to adverse reactions (disorder) [facility] Repository (20 sources) Sertraline; Translations: [SERTRALINE] Drug Allergy 09-13-19 Other: See Comments [facility] (1 source) topiramate Drug Allergy 03-17-20 RLS [facility] (1 source) Sertraline Drug Allergy 03-17-20 [facility] Repository (1 source) topiramate Drug Allergy 03-17-20 [facility] Repository (1 source) Antihistamines - Ethylenediamine Drug allergy (disorder) 05-17-20 [facility] Repository (1 source) Antihistamines - Ethanolamine Drug allergy (disorder) 05-17-20 [facility] Rep[facility] (1 source) Antihistamines - Piperidine Drug allergy (disorder) 05-17-20 [facility] Rep[facility] (1 source) Antihistamines - Piperazine Drug allergy (disorder) 05-17-20 [facility] Repository Medications Current Medications Medication Drug Class(es) [...] 1 TABLET PO EVERY 6 HOURS NEEDED 07 12January 18, 2022 [id number] 200 actuat albuterol 0.09 mg/actuat metered dose [...] for shortness of breath or wheezing 6.7 3 August 01, 2023 1:00am August 27, 2023 [...] Comment on above: Inhale as instructed . amLODIPine 5 mg oral tablet (20 sources) Dihydropyridine Calcium Channel Kimmie Start: End: take 1 tablet by mouth once daily amLODIPine (NORVASC) 5 mg tablet Indications: Hypertension, essential Take 1 tablet by mouth once daily. 90 tablet 3 03/08/2025 Active aspirin 81 mg chewable tablet (20 sources) Platelet Aggregation Inhibitor, Nonsteroidal Anti-inflammatory Drug Start: take 1 tablet by mouth once daily aspirin 81 mg chewable tablet 1 tablet by ORAL/FEEDING TUBE route once daily. 90 tablet 02/28/2025 Active Start: 12-23-2024 Aspirin 81 mg tablet,chewable Active 1 {tbl} PO DAILY December 23, 2024 12:00am heart health Start: 11-28-2024 take 1 tablet by jacquelyn th once daily aspirin 81 mg chewable tablet 1 tablet by ORAL/FEEDING TUBE route once daily. 90 tablet 11/28/2024 Active atorvastatin 40 mg oral tablet (20 sources) HMG-CoA Reductase Inhibitor Start: 02-28-2025 take 1 tablet by mouth once daily at bedtime atorvastatin (LIPITOR) 40 mg tablet 1 tablet by ORAL/FEEDING TUBE route daily at bedtime. 90 tablet 02/28/2025 Active Start: 12-23-2024 take 1 tablet by jacquelyn th at bedtime Atorvastatin 40 mg tablet Active 40 mg PO AT BEDTIME December 23, 2024 12:00am cholesterol Start: 11-27-2024 take 1 tablet by jacquelyn th once daily at bedtime atorvastatin (LIPITOR) 40 mg tablet 1 tablet by ORAL/FEEDING TUBE route daily at bedtime. 90 tablet 11/27/2024 Active bictegravir 50 mg / emtricitabine 200 mg / tenofovir alafenamide 25 mg oral tablet (20 sources) Human Immunodeficiency Virus Nucleoside Analog Reverse Transcriptase Inhibitor Start: 12-20-2022 take 1 tablet by mouth once BIKTARVY 50-200-25 mg per tablet Take 1 tablet by mouth every afternoon. 12/20/2022 Active Start: 11-25-2022 take 1 tablet by jacquelyn th once daily Uzbrtqecm-Sejmujar-Xdvjblo Ala (Biktarvy ) 50-200-25 mg Tablet Active 1 {tbl} PO DAILY November 25, 2022 12:00am viral load Comment on above: Take 1 tablet by jacquelyn th every afternoon. Take 1 Tablet by jacquelyn th once daily busPIRone hydrochloride 5 mg oral tablet (20 sources) Start: take 2 tablets by mouth twice daily Buspirone 5 mg tablet Active 10 mg PO TWICE A DAY August 11, 2024 10:53am mental health Start: 03-10-2024 End: 08-11-2024 take 1 tablet [...] mouth two times a day. Active cholecalciferol 0.05 mg oral tablet (20 sources) Vitamin D Start: 03-31-2024 take 1 capsule by mouth once daily Cholecalciferol (Vitamin D3) (Vitamin D3) 25 mcg (1,000 unit) capsule Active 50 ug PO daily March 31, 2024 2:03pm vitamin Start: 03-31-2024 take 1 capsule by mo [facility] once daily Cholecalciferol (Vitamin D3) (Vitamin D3) [...] Active November 24, 2022 11:00pm Start: 12-23-2021 End: 03-24-2026 take 1 tablet by mouth once daily cholecalciferol (VITAMIN D3) 50 mcg (2,000 unit) tablet Take 1 tablet by mouth once daily. 90 tablet 3 03/24/2025 03/24/2026 Active Start: 12-23-2021 take 1 tablet by jacquelyn once daily cholecalciferol (VITAMIN D3) 1,000 unit [...] capsule,delayed release(DR/EC) Discontinued 30 mg PO DAILY 14 0 July 27, 2021 1:00am January 17, 2022 10:22pm emtricitabine 200 mg / tenofovir disoproxil fumarate 300 mg oral tablet (2 sources) Human Immunodeficiency Virus Nucleoside Analog Reverse Transcriptase Inhibitor Start: 09-03-2022 take 1 tablet by mouth once daily Emtricitabine-Tenofovir (Tdf) (Truvada) 200-300 mg tablet Active 1 TABLET PO DAILY September 03, 2022 1:00am FLUoxetine 20 mg oral capsule (20 sources) Serotonin Reuptake Inhibitor Start: 03-08-2025 take 1 capsule by mouth once daily Fluoxetine 20 mg capsule Active 20 mg PO daily March 17, 2025 12:00am Start: 04-14-2024 take 1 capsule by [facility] once daily Fluoxetine 40 mg capsule Active 40 mg PO daily April 14, 2024 12:00am mental health Start: 03-10-2024 End: 06-07-2024 take 1 capsule by mouth once daily Fluoxetine 20 mg capsule Discontinued 20 mg PO daily March 10, 2024 12:00am April 14, 2024 2:15pm fluticasone propionate 0.05 mg/actuat metered dose nasal spray (15 sources) Corticosteroid Start: 03-31-2024 End: 03-24-2025 take 1 spray(s) nasal route once daily fluticasone (FLONASE) 50 mcg/actuation nasal spray Use 1 spray in each nostril once daily. 15.8 mL 3 03/24/2025 Active Start: 03-31-2024 take 50 ug nasal rou te once daily Fluticasone Propionate (Flonase Allergy Relief) [...] Active Comment on above: MRI foot/toes RT Inject, intravenously, once for [...] 50 Plus Probiotic) 4 billion cell capsule (12 sources) Start: 03-10-2024 take 4 capsules by mouth once daily Lactobacillus Combination No.9 (Adult 50 Plus Probiotic) 4 billion cell capsule Active 4000 NMA PO DAILY March 10, 2024 12:00am supplement Start: 03-10-2024 take 4 capsules by m outh once daily Lactobacillus Combination No.9 (Adult 50 Plus Probiotic) 4 billion cell capsule Active 4000 NMA PO DAILY March 10, 2024 12:00am melatonin 10 mg oral capsule (20 sources) Start: 12-23-2024 take 1 capsule by mouth once daily Melatonin 10 mg capsule Active 10 mg PO DAILY December 23, 2024 12:00am sleep take 1-2 capsules by mouth every twenty-four [...] tablet by jacquelyn th once daily. methylPREDNISolone 4 mg oral tablet (6 sources) Corticosteroid Start: 02-07-2025 take 1 tablet by mouth once Methylprednisolone (Medrol (Cm)) 4 mg tablets,dose pack Active 0 PO per package directions 21 0 February 07, 2025 12:00am PO PER PKG DIR Start: 01-28-2023 End: 02-02-2023 methylPREDNISolone (MEDROL, CM,) 4 mg Dose-Pack Take as directed 21 tablet 0 01/28/2023 02/02/2023 Active Comment on above: Take as directed Iixeemgp-Gva-Fvqos-Vit K-Lycop (One-A-Day Men's Multivitamin) 400-20-300 mcg tablet (12 sources) Start: 03-31-2024 Uzsshkys-Vte-Z olic-Vit K-Lycop (One-A-Day Men's Multivitamin) 400-20-300 mcg tablet Active 1 {tbl} PO DAILY March 31, 2024 12:00am vitamin Start: 03-31-2024 Servmanb-Qee-Y olic-Vit K-Lycop (One-A-Day Men's Multivitamin) 400-20-300 mcg tablet Active 1 {tbl} PO DAILY March 31, 2024 12:00am Start: 03-31-2024 Xfbdxvzx-Xiw-L olic-Vit K-Lycop (One-A-Day Men's Multivitamin) 400-20-300 mcg tablet Active {tbl} PO March 31, 2024 12:00am multivitamin tablet (20 sources) take 1 tablet by jacquelyn th once daily multivitamin tablet Take 1 tablet by mouth once daily. Suspended take 1 tablet by mouth once jerson y multivitamin tablet Take 1 tablet by mouth once daily. Active pantoprazole 40 mg delayed release oral tablet (20 sources) Proton Pump Inhibitor Start: 11-09-2024 End: 01-08-2025 take 1 tablet by mouth once daily pantoprazole DR (PROTONIX) 40 mg tablet TAKE 1 TABLET BY MOUTH EVERY DAY 90 tablet 1 12/01/2024 Active polyethylene glycol 3350 70746 mg powder for oral solution (3 sources) Osmotic Laxative Start: 05-20-2022 Polyethylene Glycol 3350 (Miralax) 17 gram/dose powder Active 17 GM PO DAILY 119 May 20, 2022 10:25pm potassium chloride 20 meq extended release oral tablet (5 sources) Start: 01-19-2022 take 20 mEq by mouth twice daily Potassium Chloride Active 20 MEQ PO TWICE A DAY January 19, 2022 12:00am prazosin 1 mg oral capsule (3 sources) alpha-Adrenergic Kimmie Start: 03-17-2025 Prazosin 1 mg capsule Active mg PO March 17, 2025 12:00am propranolol hydrochloride 20 mg oral tablet (20 sources) beta-Adrenergic Kimmie Start: 03-10-2024 take 1 tablet by mouth once daily propranolol (INDERAL) 20 mg tablet Indications: Hypertension, essential Take 1 tablet by mouth once daily. 30 tablet 12/08/2024 Active raltegravir 400 mg oral tablet (2 sources) Human Immunodeficiency Virus Integrase Strand Transfer Inhibitor Start: 09-03-2022 take 1 tablet by mouth twice daily Raltegravir (Isentress) 400 mg tablet Active 400 MG PO TWICE A DAY 56 September 03, 2022 1:00am sucralfate 1000 mg oral tablet (1 source) Aluminum Complex Start: 08-11-2024 End: 09-10-2024 take 1 tablet by mouth four times daily sucralfate (CARAFATE) 1 gram tablet Take 1 tablet by mouth four times daily. 120 tablet 08/11/2024 09/10/2024 Active traZODone hydrochloride 50 mg oral tablet (3 sources) Serotonin Reuptake Inhibitor Start: 03-17-2025 take 1 tablet by mouth at bedtime as needed Trazodone 50 mg tablet Active 50 mg PO AT BEDTIME as needed March 17, 2025 12:00am ubrogepant 100 mg oral tablet (9 sources) Start: 01-13-2025 take 1 tablet by mouth once daily as needed for headache UBRELVY 100 mg tablet Take 100 mg by mouth once daily as needed for migraine headache (see administration instructions). 02/16/2025 Active Completed/Discontinued Medications Medication Drug Class(es) Dates Sig (Normalized) Sig (Original) Albuterol 90 mcg/actuation aerosol (12 sources) Start: 08-01-2023 End: 08-27-2023 take 90 ug by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 counselor. He no longer takes duloxetine. He has had intermittent chest pain. He has seen a investigations consultant. He has a family history of cerebral aneurysms (mother, maternal grandmother and multiple maternal cousins). The patient had a head CTA in August 2023 which did not reveal evidence of an aneurysm. Since the beginning of 2023, he has been experiencing transient positional vertigo that occurs in the morning. The patient is being treated for HIV and stated that his HIV titers are undetectable. The patient has had precancerous colonic polyps removed and is currently awaiting results of further colonic biopsies. He smokes tobacco. There is no history of alcohol abuse. He has a prior history of illicit drug use. He states that he used methamphetamine; he states his last use was in the spring 2023. Prior urine tox screens were positive for cocaine, methamphetamine and ecstasy. He completed a drug rehabilitation program and stated that he is not used illicit drugs since the spring 2023. His EEG in October 2024 was normal. A 14 day cardiac event monitor was unremarkable including during eposides of lightheadedness. He was hospitalized earlier in November 2024 for an episode of transient left sided weakness that occurred following a colonoscopy that day. The possibility of an ischemic stroke was raised and was treated with tenecteplase. His symptoms improved. His head MRI did not reveal acute pathology (a punctate focus of white matter FLAIR hyperintensity in the right fontal lobe, likely the subtle sequelae of remote insult was noted). An EEG was normal (per discharge summary). He was placed on atorv (more content not included)... Normal [facility] Vitamin B12on 05-22-2025 Cobalamin (Vitamin B12) [Mass/Vol] 404 pg/mL Normal 180-914 [facility] Comment on above: Performed By: #### L 503.0106 #### [facility] Laboratory [address] [place], [address] Vitamin B12 ser/plasOrdered By: Yang Del Rio on 12-09-2024 Cobalamin (Vitamin B12) [Mass/Vol] 404 pg/mL 180-914 [facility] CNOVon 12-08-2024 CNOV Office Visit (FAMPBR ) ----- SHAYYBALDOFAUSTINO ROLAND ([id number]) 1990 Date Time Provider Department 12/08/24 1:00 PM MARCEL NICHOLS FAMP[facility] During your visit today, we recorded the following information about you: Pulse Blood pressure Weight Height 102/minute 149/99 78 kg 1.727 m Marcel Nichols APRN.[facility] 12/08/2024 4:50 PM Signed SUBJECTIVE: Faustino [...] PKD - Right kidney reportedly enlarged per stock repairer Dr. Skye Lopez. - Upcoming nephrology appointment [...] by Dr. Downs, infectious disease specialist in [place]. Anxiety and Depression: - Managed with BuSpar 10 mg BID and Prozac 40 mg daily, prescribed by provider at [facility] [place] [facility] Lifestyle: - Smokes approximately 1/4 pack [...] sinus tenderness (more content not included)... Normal [facility] Magnetic resonance imaging r eportOrdered By: Gutierrez Tamayo on 12-01-2024 Study report [facility] Imaging Services [address] [place] [address] Brain W/WO Contrast MR#: [id number] Acct: [id number] Name: FAUSTINO UNGER Rep #: [id number] : 1990 M 34 From: Tank Tamyao MD PCP: Dr. Humberto Downs MD Status: R EG CLI Study:Brain W/WO Contrast Date of Exam: 11/30/24 Exam# [id number] Ordering Dr: Yang Del Rio MD PROCEDURE: [...] No significant abnormality is identified. Reading Location: [place] [address] CC: Dr. Yang Del Rio MD; Dr. Humberto Downs MD ~ Bus Girl: Signed [facility] Brain W/WO Contraston 2024 Brain W/WO Contrast [facility] Imaging Services [address] [place], [place] [address] Brain W/WO Contrast MR#: [id number] Acct: [id number] Name: FAUSTINO UNGER Rep #: [id number] : 1990 M 34 From: Gutierrez Mayer PCP: Dr. Humberto Downs MD Status: REG CLI Study: Brain W/WO Contrast Date of Exam: 11/30/24 Exam# [id number] Ordering Dr: Yang Del Rio MD PROCEDURE: [...] No significant abnormality is identified. Reading Location: [place] [address] CC: Dr. Yang Del Rio MD; Dr. Humberto Downs MD Bus Girl: Signed Normal [facility] Basic metabolic 2000 panelon 11-27-2024 Anion gap [Moles/Vol] 8 mmol/L Normal 8-15 [facility] Comment on above: Order Comment: Speci men Type: BLOOD SPECIMENOrdering Facility: [facility] Address: [address] [place] [address] Performed By: #### 1 9123-9, 49983-9, 27701-18 ####[facility] [place] [place] [facility]ORY[facility] [id number] [place] [address] [place] Calcium [Mass/Vol] 9.2 mg/dL Normal 8.5-10.2 [facility] Comment on above: Order Comment: Speci men Type: BLOOD SPECIMENOrdering Facility: [facility] Address: [address] [place] [address] Performed By: #### 1 9123-9, 38097-7, 2776-07 ####[facility] [place] [place] [facility]ORY[facility] [id number] [place] [address] [place] Chloride [Moles/Vol] 106 mmol/L Normal 98-107 [facility] Comment on above: Order Comment: Speci men Type: BLOOD SPECIMENOrdering Facility: [facility] Address: [address] [place] [address] Performed By: #### 1 9123-9, 34058-6, 27701-18 ####[facility] [place] LAB[facility]ORYCL[facility] [id number] [place] [address] [place] CO2 [Moles/Vol] 25 mmol/L Normal 22-30 [facility] Comment on above: Order Comment: Speci men Type: BLOOD SPECIMENOrdering Facility: [facility] Address: [address] [place] [address] Performed By: #### 1 9123-9, 96350-6, 2776-07 ####[facility] [id number] [place] [address] [place] [facility] Creatinine [Mass/Vol] 0.77 mg/dL Normal 0.73-1.22 [facility] Comment on above: Order Comment: Speci men Type: BLOOD SPECIMENOrdering Facility: [facility] Address: [address] [place] [address] Performed By: #### 1 9123-9, 96420-0, 2776-07 ####[facility] [id number] [address] Creatinine and Glomerular filtration rate.predicted panel (S/P/Bld) 119 mL/min/1.73m??? Normal >=60 [facility] Comment on above: Order Comment: [facility] Type: BLOOD SPECIMENOrdering Facility: [facility] Address: [address] [place] [address] Result Comment: Mar mated Glomerular Filtration Rate [...] actual GFR. Performed By: #### 1 9123-9, 31848-8, 2776-07 ####[facility] [id number] [address] STATES OF [facility] Glucose [Mass/Vol] 88 mg/dL Normal 74-99 [facility] Comment on above: Order Comment: Speci men Type: BLOOD SPECIMENOrdering Facility: [facility] Address: [address] [place] [address] Result Comment: The [place] Diabetes Association (ADA) provides guidance for cutoff [...] Standards of Medical Care in Diabetes 2016, [place] [employer] Association. Diabetes Care. 2016.39(Suppl 1). Performed By: #### 1 9123-9, 53159-6, 2776-07 ####[facility] [place] [place] [facility]ORYCL[facility] [id number] [place] [address] [place] Potassium [Moles/Vol] 4.1 mmol/L Normal 3.7-5.1 [facility] Comment on above: Order Comment: Joie xiao Type: BLOOD SPECIMENOrdering Facility: [facility] Address: [address] [place] [address] Performed By: #### 1 9123-9, 00790-7, 2776-07 ####[facility] [place] [place] [facility]ORYCL[facility] [id number] [place] [address] [place] Sodium [Moles/Vol] 139 mmol/L Normal 136-144 [facility] Comment on above: Order Comment: Joie xiao Type: BLOOD SPECIMENOrdering Facility: [facility] Address: [address] [place] [address] Performed By: #### 1 9123-9, 27199-4, 2776-07 ####[facility] [place] [facility] [id number] [place] [address] [place] Urea nitrogen [Mass/Vol] 14 mg/dL Normal 9-24 [facility] Comment on above: Order Comment: Joie xiao Type: BLOOD SPECIMENOrdering Facility: [facility] Address: [address] [place] [address] Performed By: #### 1 9123-9, 24910-1, 2776-07 ####[facility] [place] [place] [facility]ORYCL[facility] [id number] [place] [address] [place] CBC panel Auto (Bld)on 11-27 Erythrocyte distribution width (RBC) [Ratio] 14.0 % Normal 11.5-15.0 [facility] Comment on above: Order Comment: Speci men Type: BLOOD SPECIMEN Ordering Facility: [facility] Address: [facility] [place] [address] Performed By: #### C ORPNL #### [facility] CLIA [id number] [address] [facility] Hematocrit (Bld) [Volume fraction] 44.1 % Normal 39.0-51.0 [facility] Comment on above: Order Comment: Speci men Type: BLOOD SPECIMEN Ordering Facility: [facility] Address: [address] [place] [address] Performed By: #### C ORPNL #### [facility] [place] [facility] CLIA [id number] [address] [place] Hemoglobin (Bld) [Mass/Vol] 14.9 g/dL Normal 13.0-17.0 [facility] Comment on above: Order Comment: Speci men Type: BLOOD SPECIMEN Ordering Facility: [facility] Address: [address] [place] [address] Performed By: #### C ORPNL #### [facility] [place] [place] [facility] CLIA [id number] [address] STATES OF [facility] MCH (RBC) [Entitic mass] 31.2 pg Normal 26.0-34.0 [facility] Comment on above: Order Comment: Speci men Type: BLOOD SPECIMEN Ordering Facility: [facility] Address: [address] [place] [address] Performed By: #### C ORPNL #### [facility] CLIA [id number] [address] [place] MCHC (RBC) [Mass/Vol] 33.8 g/dL Normal 30.5-36.0 [facility] Comment on above: Order Comment: Speci men Type: BLOOD SPECIMEN Ordering Facility: [facility] Address: [address] [place] [address] Performed By: #### C ORPNL #### [facility] CLIA [id number] [address] MCV (RBC) [Entitic vol] 92.5 fL Normal 80.0-100.0 [facility] Comment on above: Order Comment: Speci men Type: BLOOD SPECIMEN Ordering Facility: [facility] Address: [address] [place] [address] Performed By: #### C ORPNL #### [facility] [place] [place] [facility] CLIA [id number] [address] [place] Nucleated RBC (Bld) [#/Vol] 10*3/uL Normal <0.01 [facility] Comment on above: Order Comment: Speci men Type: BLOOD SPECIMEN Ordering Facility: [facility] Address: [address] [place] [address] Performed By: #### C ORPNL #### [facility] [place] [facility] CLIA [id number] [address] Platelet mean volume (Bld) [Entitic vol] 8.7 fL Low 9.0-12.7 [facility] Comment on above: Order Comment: Speci men Type: BLOOD SPECIMEN Ordering Facility: [facility] Address: [address] [place] [address] Performed By: #### C ORPNL #### [facility] [place] [facility] CLIA [id number] [address] Platelets (Bld) [#/Vol] 241 10*3/uL Normal 150-400 [facility] Comment on above: Order Comment: Speci men Type: BLOOD SPECIMEN Ordering Facility: [facility] Address: [address] [place] [address] Performed By: #### C ORPNL #### [facility] [place] [place] [facility] CLIA [id number] [address] [place] RBC (Bld) [#/Vol] 4.77 10*6/uL Normal 4.20-6.00 [facility] Comment on above: Order Comment: Speci men Type: BLOOD SPECIMEN Ordering Facility: [facility] Address: [address] [place] [address] Performed By: #### C ORPNL #### [facility] [place] [place] [facility] CLIA [id number] [address] WBC (Bld) [#/Vol] 6.51 10*3/uL Normal 3.70-11.00 [facility] Comment on above: Order Comment: Speci men Type: BLOOD SPECIMEN Ordering Facility: [facility] Address: [facility] [place] [id number] Performed By: #### C ORPNL #### [facility] [place] [place] [facility] CLIA [id number] [address] CNDSon 11-27-2024 CNDS HNO ID: [id number] Author: NED KENNY MD Service: Hospital Medicine [...] Attending Provider: Ned Kenny MD Primary Service: [facility] MY CONDITION AT DISCHARGE: Stable REASON I [...] Out FOLLOW-UP APPOINTMENTS ALREADY SCHEDULED WITH A [facility] PROVIDER: Future Appointments Date Time Provider Department Center 12/08/2024 1:00 PM Marcel Nichols APRN.COMMUNITY REINVESTMENT ACT OFFICER [facility] 10/28/2025 12:00 PM Tali Caballero MD [facility] [place] [facility] ALLERGIES Allergen Reactions Antihistimine Mental Status Change [...] these medications (more content not included)... Normal [facility] CONSULT PROGon 11-27-2024 CONSULT PROG HNO ID: [id number] Author: DOLORES TIDWELL APRN.COMMUNITY REINVESTMENT ACT OFFICER Service: Neurology General Author Type: Nurse Practitioner Type: Consult Progress Note Filed: 11/27/2024 12:26 Note Text: NEURO CONSULT PROGRESS NOTE SERVICE DATE: 11/27/2024 SERVICE TIME: 1050 Subjective INTERVAL HISTORY: Patient seen in room. [place]. Testing, medications, diagnosis, labs reviewed with patient. [...] Score: 0 (11/27/24 1050 : Dolores Tidwell, PRESSURIZATION MECHANIC.COMMUNITY REINVESTMENT ACT OFFICER) 0 Alert and oriented to person, place, [...] and Prevention (personally reviewed by Dolores Tidwell APRN.COMMUNITY REINVESTMENT ACT OFFICER): Daily Rounding Date: 11/27/24 Daily Rounding Time: [...] L side (more content not included)... Normal [facility] Magnesium [Mass/Vol] 1.8 mg/dL Normal 1.7-2.3 [facility] Comment on above: Order Comment: Joie xiao Type: BLOOD SPECIMEN Ordering Facility: [facility] Address: [address] [place] [address] Performed By: #### C ORPNL #### [facility] [place] [place] [facility] CLIA [id number] [address] [place] Phosphate SerPl-[facility] 11-27 Phosphate [Mass/Vol] 5.1 mg/dL High 2.7-4.8 [facility] Comment on above: Order Comment: Specmarco xiao Type: BLOOD SPECIMEN Ordering Facility: [facility] Address: [address] [place] [address] Performed By: #### C ORPNL #### [facility] [place] [place] [facility] CLIA [id number] [address] [place] ALLIED HEALTHon 11-26-2024 ALLIED HEALTH HNO ID: [id number] Author: SVITLANA BERNAL MRI Tech Service: Radiology Author Type: Commercial Portfolio Manager Type: Allied Health Filed: 11/26/2024 20:33 Note [...] PATIENT PRESENTS WITH AN IMPLANTABLE OR ATTACHED SECTION GANG: No ALLERGIES: Reviewed and unchanged CONTRAST ALLERGY: NO. EXAM: MRI - CONTRAST TYPE: GROUP II PERIPHERAL IV DATA: Inpatient - refer to LDA documentation RADIOLOGY DEPARTMENT: MR; Exam(s) Completed: Head: Routine Brain. Lavender Administered: No SIGNATURE: ABIMBOLA Gomez PATIENT NAME: Faustino Unger DATE: November 26, 2024 TIME: 8:32 PM Normal [facility] Basic metabolic 2000 panelon 11-26-2024 Anion gap [Moles/Vol] 10 mmol/L Normal 8-15 [facility] Comment on above: Order Comment: Speci men Type: BLOOD SPECIMEN Ordering Facility: [facility] Address: [address] [place] [address] Performed By: #### 5 8410-2 #### [facility] [place] [place] [facility] CLIA [id number] 1 [place] [address] [place] Calcium [Mass/Vol] 8.8 mg/dL Normal 8.5-10.2 [facility] Comment on above: Order Comment: Speci men Type: BLOOD SPECIMEN Ordering Facility: [facility] Address: [address] [place] [address] Performed By: #### 5 8410-2 #### [facility] [place] [place] [facility] CLIA [id number] 1 [place] [address] [place] Chloride [Moles/Vol] 103 mmol/L Normal 98-107 [facility] Comment on above: Order Comment: Speci men Type: BLOOD SPECIMEN Ordering Facility: [facility] Address: [address] [place] [address] Performed By: #### 5 8410-2 #### [facility] [place] [place] [facility] CLIA [id number] 1 [place] [address] [place] CO2 [Moles/Vol] 27 mmol/L Normal 22-30 [facility] Comment on above: Order Comment: Speci men Type: BLOOD SPECIMEN Ordering Facility: [facility] Address: [address] [place] [address] Performed By: #### 5 8410-2 #### [facility] [place] [place] [facility] CLIA [id number] 1 [place] [address] [place] Creatinine [Mass/Vol] 0.83 mg/dL Normal 0.73-1.22 [facility] Comment on above: Order Comment: Speci men Type: BLOOD SPECIMEN Ordering Facility: [facility] Address: [address] [place] [address] Performed By: #### 5 8410-2 #### [facility] CLIA [id number] [address] [place] [address] [place] Creatinine and Glomerular filtration rate.predicted panel (S/P/Bld) 116 mL/min/1.73m??? Normal >=60 [facility] Comment on above: Order Comment: Joie xiao Type: BLOOD SPECIMEN Ordering Facility: [facility] Address: [address] [place] [address] Result Comment: Mar mated Glomerular Filtration Rate [...] GFR. Performed By: #### 5 8410-2 #### [facility] [facility] CLIA [id number] [address] [place] [address] [place] Glucose [Mass/Vol] 98 mg/dL Normal 74-99 [facility] Comment on above: Order Comment: Joie xiao Type: BLOOD SPECIMEN Ordering Facility: [facility] Address: [address] [place] [address] Result Comment: The [place] Diabetes [employer] (ADA) provides guidance for cutoff [...] Standards of Medical Care in Diabetes 2016, [place] [employer]. Diabetes Care. 2016.39(Suppl 1). Performed By: #### 5 8410-2 #### [facility] CLIA [id number] [address] [place] Potassium [Moles/Vol] 4.1 mmol/L Normal 3.7-5.1 [facility] Comment on above: Order Comment: Speci men Type: BLOOD SPECIMEN Ordering Facility: [facility] Address: [address] [place] [address] Performed By: #### 5 8410-2 #### [facility] CLIA [id number] [address] [place] Sodium [Moles/Vol] 140 mmol/L Normal 136-144 [facility] Comment on above: Order Comment: Speci men Type: BLOOD SPECIMEN Ordering Facility: [facility] Address: [address] [place] [address] Performed By: #### 5 8410-2 #### [facility] [place] [facility] CLIA [id number] [address] STATES [facility] Urea nitrogen [Mass/Vol] 10 mg/dL Normal 9-24 [facility] Comment on above: Order Comment: Speci men Type: BLOOD SPECIMEN Ordering Facility: [facility] Address: [address] [place] [address] Performed By: #### 5 8410-2 #### [facility] [place] [facility] CLIA [id number] [address] CBC panel Auto (Bld)on 11-26 Erythrocyte distribution width (RBC) [Ratio] 13.9 % Normal 11.5-15.0 [facility] Comment on above: Order Comment: Speci men Type: BLOOD SPECIMEN Ordering Facility: [facility] Address: [address] [place] [address] Performed By: #### C ORPNL #### [facility] [place] [facility] CLIA [id number] [address] Hematocrit (Bld) [Volume fraction] 42.2 % Normal 39.0-51.0 [facility] Comment on above: Order Comment: Speci men Type: BLOOD SPECIMEN Ordering Facility: [facility] Address: [address] [place] [address] Performed By: #### C ORPNL #### [facility] [place] [facility] CLIA [id number] [address] Hemoglobin (Bld) [Mass/Vol] 14.3 g/dL Normal 13.0-17.0 [facility] Comment on above: Order Comment: Speci men Type: BLOOD SPECIMEN Ordering Facility: [facility] Address: [address] [place] [address] Performed By: #### C ORPNL #### [facility] CLIA [id number] [address] [facility] MCH (RBC) [Entitic mass] 31.1 pg Normal 26.0-34.0 [facility] Comment on above: Order Comment: Speci men Type: BLOOD SPECIMEN Ordering Facility: [facility] Address: [address] [place] [address] Performed By: #### C ORPNL #### [facility] CLIA [id number] [address] MCHC (RBC) [Mass/Vol] 33.9 g/dL Normal 30.5-36.0 [facility] Comment on above: Order Comment: Speci men Type: BLOOD SPECIMEN Ordering Facility: [facility] Address: [address] [place] [address] Performed By: #### C ORPNL #### [facility] [place] [facility] CLIA [id number] [address] MCV (RBC) [Entitic vol] 91.7 fL Normal 80.0-100.0 [facility] Comment on above: Order Comment: Speci men Type: BLOOD SPECIMEN Ordering Facility: [facility] Address: [address] [place] [address] Performed By: #### C ORPNL #### [facility] [place] [facility] CLIA [id number] [address] Nucleated RBC (Bld) [#/Vol] 10*3/uL Normal <0.01 [facility] Comment on above: Order Comment: Speci men Type: BLOOD SPECIMEN Ordering Facility: [facility] Address: [address] [place] [address] Performed By: #### C ORPNL #### [facility] CLIA [id number] [address] Platelet mean volume (Bld) [Entitic vol] 8.7 fL Low 9.0-12.7 [facility] Comment on above: Order Comment: Speci men Type: BLOOD SPECIMEN Ordering Facility: [facility] Address: [address] [place] [address] Performed By: #### C ORPNL #### [facility] [facility] CLIA [id number] [address] Platelets (Bld) [#/Vol] 232 10*3/uL Normal 150-400 [facility] Comment on above: Order Comment: Speci men Type: BLOOD SPECIMEN Ordering Facility: [facility] Address: [address] [place] [address] Performed By: #### C ORPNL #### [facility] [place] [facility] CLIA [id number] [address] RBC (Bld) [#/Vol] 4.60 10*6/uL Normal 4.20-6.00 [facility] Comment on above: Order Comment: Speci men Type: BLOOD SPECIMEN Ordering Facility: [facility] Address: [address] [place] [address] Performed By: #### C ORPNL #### [facility] [facility] CLIA [id number] [address] [place] WBC (Bld) [#/Vol] 5.33 10*3/uL Normal 3.70-11.00 [facility] Comment on above: Order Comment: Speci men Type: BLOOD SPECIMEN Ordering Facility: [facility] Address: [address] [place] [address] Performed By: #### C ORPNL #### [facility] CLIA [id number] [address] MRI BRAIN WO/W IVCONon 11-26 MRI BRAIN WO/W IVCON * * *Final Report* * * DATE OF EXAM: Nov 26 2024 9:02PM [facility] 0295 - MRI BRAIN WO/W IVCON / [...] essentially normal MR appearance of the brain. Bus Girl: PSCB Transcribe Date/Time: Nov 27 2024 11:24A Dictated by : RILEY ANDERSON MD This examination was interpreted and the report reviewed and electronically signed by: RILEY ANDERSON MD on Nov 27 2024 11:31AM EST [id number] Normal [facility] Magnesium SerPl-mCncon 11-26 Magnesium [Mass/Vol] 1.8 mg/dL Normal 1.7-2.3 [facility] Comment on above: Order Comment: Specmarco xiao Type: BLOOD SPECIMEN Ordering Facility: [facility] Address: [address] [place] [address] Performed By: #### 5 8410-2 #### [facility] CLIA [id number] 1 [place] [id number] [facility] [place] Phosphate SerPl-mCncon 11-26 Phosphate [Mass/Vol] 3.8 mg/dL Normal 2.7-4.8 [facility] Comment on above: Order Comment: Specmarco men Type: BLOOD SPECIMEN Ordering Facility: [facility] Address: [address] [place] [address] Performed By: #### 5 8410-2 #### [facility] CLIA [id number] [address] [place] THERAPY NTon 11-26-2024 THERAPY NT HNO ID: [id number] Author: DARRION HOLDEN PT Service: Physical Therapy Author Type: Physical Therapist Type: Therapy (PT/OT/Speech/Resp) Filed: 11/26/2024 08:52 Note Text: Physical Therapy Evaluation Summary SERVICE DATE: 11/26/2024 SERVICE TIME: 0830 to 0845 ROOM: [place] [address] PT 6 Clicks Score: 23 DISCHARGE RECOMMENDATIONS [...] Risk none CURRENT HOSPITAL COURSE Presented to [facility] 11/24 for elective EGD and colonoscopy. He was noted to develop Left sided weakness. Transferred to [facility] NSICU service for close neurologic monitoring. [...] Skilled Need TREATMENT INTERVENTIONS Evaluation $ Evaluation-Low (83117) Billed Units: 1 unit Skilled Treatment Time [...] November 26, 2024 TIME: 8:51 AM Normal [facility] ALLIED HEALTHon 11-25-2024 ALLIED HEALTH HNO ID: [id number] Author: MAGALIE LEACH jenny Service: Pharmacy Author Type: Pharmacist Type: Allied Health Filed: 11/25/2024 16:32 Note Text: PHARMACY ANTIRETROVIRAL MEDICATION PROFILE REVIEW Patient Name: Faustino Unger Admission Date: 11/24/2024 Outpatient antiretroviral regimen: Bictegravir/emtricitabine /tenovovir alafenamide 50 mg/200 mg/25 mg Patient was diagnosed with HIV in Aug 2022 Outpatient infectious diseases provider: MD Keiko Vu, [address] [place], [address] Current Inpatient Medications: Antiretrovirals in red and [...] DIRECTED PRN No results found for: HCD4N, [id number] No results found for: HCD4P, [id number] No results found for: HIVRNA Patient medication profile has been reviewed. Issues regarding medication use, dose, administration, interactions, and/or monitoring have been discussed with the patient's current treating physician. Prior to admission medication list was reviewed for accuracy of antiretroviral and opportunistic prophylaxis/treatment medications. Updates to these medications were not required. SIGNATURE: Magalie Leach [facility] PAGER: [phone] Date of service: 11/25/2024 Time of service: 4:20 PM Normal [facility] Basic metabolic 2000 panelon 11-25-2024 Anion gap [Moles/Vol] 11 mmol/L Normal 8-15 [facility] Comment on above: Order Comment: Speci men Type: BLOOD SPECIMEN Ordering Facility: [facility] Address: [address] [place] [address] Performed By: #### 5 8410-2 #### [facility] CLIA [id number] 1 [place] [address] [place] Calcium [Mass/Vol] 9.0 mg/dL Normal 8.5-10.2 [facility] Comment on above: Order Comment: Speci men Type: BLOOD SPECIMEN Ordering Facility: [facility] Address: [address] [place] [address] Performed By: #### 5 8410-2 #### [facility] CLIA [id number] 1 [place] [address] [place] Chloride [Moles/Vol] 106 mmol/L Normal 98-107 [facility] Comment on above: Order Comment: Speci men Type: BLOOD SPECIMEN Ordering Facility: [facility] Address: [address] [place] [address] Performed By: #### 5 8410-2 #### [facility] CLIA [id number] 1 [place] [address] [place] CO2 [Moles/Vol] 24 mmol/L Normal 22-30 [facility] Comment on above: Order Comment: Speci men Type: BLOOD SPECIMEN Ordering Facility: [facility] Address: [address] [place] [address] Performed By: #### 5 8410-2 #### [facility] CLIA [id number] 1 [place] [address] [place] Creatinine [Mass/Vol] 0.84 mg/dL Normal 0.73-1.22 [facility] Comment on above: Order Comment: Joie xiao Type: BLOOD SPECIMEN Ordering Facility: [facility] Address: [address] [place] [address] Performed By: #### 5 8410-2 #### [facility] CLIA [id number] [address] [place] Creatinine and Glomerular filtration rate.predicted panel (S/P/Bld) 116 mL/min/1.73m??? Normal >=60 [facility] Comment on above: Order Comment: Joie xiao Type: BLOOD SPECIMEN Ordering Facility: [facility] Address: [address] [place] [address] Result Comment: Mar mated Glomerular Filtration Rate [...] GFR. Performed By: #### 5 8410-2 #### [facility] CLIA [id number] [address] [place] Glucose [Mass/Vol] 89 mg/dL Normal 74-99 [facility] Comment on above: Order Comment: Joie xiao Type: BLOOD SPECIMEN Ordering Facility: [facility] Address: [address] [place] [address] Result Comment: The [place] Diabetes [employer] (ADA) provides guidance for cutoff [...] Standards of Medical Care in Diabetes 2016, [place] [employer]. Diabetes Care. 2016.39(Suppl 1). Performed By: #### 5 8410-2 #### [facility] CLIA [id number] [address] [facility] Potassium [Moles/Vol] 3.6 mmol/L Low 3.7-5.1 [facility] Comment on above: Order Comment: Joie xiao Type: BLOOD SPECIMEN Ordering Facility: [facility] Address: [address] [place] [address] Performed By: #### 5 8410-2 #### [facility] CLIA [id number] [address] Sodium [Moles/Vol] 141 mmol/L Normal 136-144 [facility] Comment on above: Order Comment: Joie xiao Type: BLOOD SPECIMEN Ordering Facility: [facility] Address: [address] [place] [address] Performed By: #### 5 8410-2 #### [facility] CLIA [id number] [address] Urea nitrogen [Mass/Vol] 7 mg/dL Low 9-24 [facility] Comment on above: Order Comment: Joie xiao Type: BLOOD SPECIMEN Ordering Facility: [facility] Address: [address] [place] [address] Performed By: #### 5 8410-2 #### [facility] CLIA [id number] [address] [place] [address] [place] CARDIOLIPIN IGG ABSon 2024 Cardiolipin IgG IA Qn (S) <9.0 Normal <15.0 [facility] Comment on above: Order Comment: Joie xiao Type: BLOOD SPECIMEN Ordering Facility: [facility] Address: [address] [place] [address] Result Comment: <15 GPL Negative 15-20 GPL Indeterminate >20 GPL Positive The following results were obtained with the [employer] QUANTA Lite RASHMI IgG III DENISE. Cardiolipin IgG values obtained with the different manufacturers' assay methods may not be used interchangeably. The magnitude of the reported IgG levels cannot be correlated to an endpoint titer. Performed By: #### 5 8410-2 #### [facility] [place] [facility] ([facility] CLIA [id number] [address] [place] CARDIOLIPIN IGM ABSon 2024 Cardiolipin IgM IA Qn (S) 12.2 MPL Normal <12.5 [facility] Comment on above: Order Comment: [facility] Type: BLOOD SPECIMEN Ordering Facility: [facility] Address: [address] [place] [address] Result Comment: <12. 5 MPL Negative 12.5-20 MPL Indeterminate >20 MPL Positive The following results were obtained with the [employer] QUANTA Lite RASHMI IgM III DENISE. Cardiolipin IgM values obtained with the different manufacturers' assay methods may not be used interchangeably. The magnitude of the reported IgM levels cannot be correlated to an endpoint titer. ??? Performed By: #### 2 4321-2 #### [facility] CLIA [id number] [address] [place] [address] [place] CBC panel Auto (Bld)on 11-25 Erythrocyte distribution width (RBC) [Ratio] 13.9 % Normal 11.5-15.0 [facility] Comment on above: Order Comment: Joie [facility] Type: BLOOD SPECIMEN Ordering Facility: [facility] Address: [address] [place] [address] Performed By: #### 5 8410-2 #### [facility] CLIA [id number] [address] [place] [address] OF [facility] Hematocrit (Bld) [Volume fraction] 40.0 % Normal 39.0-51.0 [facility] Comment on above: Order Comment: Joie [facility] Type: BLOOD SPECIMEN Ordering Facility: [facility] Address: [address] [place] [address] Performed By: #### 5 8410-2 #### [facility] [place] [facility] CLIA [id number] [address] [place] [address] [place] Hemoglobin (Bld) [Mass/Vol] 13.7 g/dL Normal 13.0-17.0 [facility] Comment on above: Order Comment: Speci men Type: BLOOD SPECIMEN Ordering Facility: [facility] Address: [address] [place] [address] Performed By: #### 5 8410-2 #### [facility] CLIA [id number] [address] MCH (RBC) [Entitic mass] 31.5 pg Normal 26.0-34.0 [facility] Comment on above: Order Comment: Speci men Type: BLOOD SPECIMEN Ordering Facility: [facility] Address: [address] [place] [address] Performed By: #### 5 8410-2 #### [facility] CLIA [id number] [address] OF [facility] MCHC (RBC) [Mass/Vol] 34.3 g/dL Normal 30.5-36.0 [facility] Comment on above: Order Comment: Speci men Type: BLOOD SPECIMEN Ordering Facility: [facility] Address: [address] [place] [address] Performed By: #### 5 8410-2 #### [facility] [place] [facility] CLIA [id number] [address] MCV (RBC) [Entitic vol] 92.0 fL Normal 80.0-100.0 [facility] Comment on above: Order Comment: Speci men Type: BLOOD SPECIMEN Ordering Facility: [facility] Address: [address] [place] [address] Performed By: #### 5 8410-2 #### [facility] CLIA [id number] [address] Nucleated RBC (Bld) [#/Vol] 10*3/uL Normal <0.01 [facility] Comment on above: Order Comment: Speci men Type: BLOOD SPECIMEN Ordering Facility: [facility] Address: [address] [place] [address] Performed By: #### 5 8410-2 #### [facility] [place] [facility] CLIA [id number] [address] STATES [place] Platelet mean volume (Bld) [Entitic vol] 8.8 fL Low 9.0-12.7 [facility] Comment on above: Order Comment: Speci men Type: BLOOD SPECIMEN Ordering Facility: [facility] Address: [address] [place] [address] Performed By: #### 5 8410-2 #### [facility] [place] [place] [facility] CLIA [id number] [address] STATES [place] Platelets (Bld) [#/Vol] 227 10*3/uL Normal 150-400 [facility] Comment on above: Order Comment: Speci men Type: BLOOD SPECIMEN Ordering Facility: [facility] Address: [address] [place] [address] Performed By: #### 5 8410-2 #### [facility] [place] [facility] CLIA [id number] [address] [place] RBC (Bld) [#/Vol] 4.35 10*6/uL Normal 4.20-6.00 [facility] Comment on above: Order Comment: Speci men Type: BLOOD SPECIMEN Ordering Facility: [facility] Address: [address] [place] [address] Performed By: #### 5 8410-2 #### [facility] [place] [place] [facility] CLIA [id number] [address] STATES [place] WBC (Bld) [#/Vol] 7.92 10*3/uL Normal 3.70-11.00 [facility] Comment on above: Order Comment: Speci men Type: BLOOD SPECIMEN Ordering Facility: [facility] Address: [address] [place] [address] Performed By: #### 5 8410-2 #### [facility] [place] [place] [facility] CLIA [id number] [address] [place] COAG CORE PANEL BLDon 2024 aPTT Coag (PPP) [Time] 21.8 s Low 23.0-32.4 [place] Comment on above: Order Comment: Bonimarco xiao Type: BLOOD SPECIMEN Ordering Facility: [facility] Address: [address] [place] [address] Performed By: #### C ORPNL #### [facility] [place] [facility] CLIA [id number] [address] STATES [place] Fibrinogen Coag (PPP) [Mass/Vol] 257 mg/dL Normal 200-400 [facility] Comment on above: Order Comment: Bonimarco xiao Type: BLOOD SPECIMEN Ordering Facility: [facility] Address: [address] [place] [address] Performed By: #### C ORPNL #### [facility] CLIA [id number] [address] STATES [facility] INR Coag (PPP) [Relative time] 1.0 {INR} Normal 0.9-1.3 [facility] Comment on above: Order Comment: Bonimarco xiao Type: BLOOD SPECIMEN Ordering Facility: [facility] Address: [address] [place] [address] Result Comment: Sameera min K Antagonist (VKA) Therapeutic Range: INR 2 to 3 (Target INR of 2.5) Note: For patients treated with VKA drugs, such as warfarin, the [place] [employer] 2012 Guideline recommends [...] GH, et al. Chest 2012, 141:7S-47S Starr RA et al. [facility] 2017, 70: 252-289 Performed By: #### C ORPNL #### [facility] CLIA [id number] [address] STATES [place] PT Coag (PPP) [Time] 10.9 s Normal 9.7-13.0 [facility] Comment on above: Order Comment: Speci men Type: BLOOD SPECIMEN Ordering Facility: [facility] Address: [address] [place] [id number] Performed By: #### C ORPNL #### [facility] [place] [facility] CLIA [id number] 1 [place] [id number] [facility] CONSULTon 11-25-2024 CONSULT HNO ID: [id number] Author: EJ BARRON MD Service: Neurology General [...] tobacco use, multiple colonic polyps, presented to [facility] on 11/24 for elective EGD given recent [...] cholecalciferol ( (more content not included)... Normal [facility] CRP SerPl-mCncon 11-25-2024 CRP [Mass/Vol] 0.3 mg/dL Normal <0.9 [facility] Comment on above: Order Comment: Speci men Type: BLOOD SPECIMEN Ordering Facility: [facility] Address: [address] [place] [address] Performed By: #### 2 4321-2 #### [facility] [place] [facility] CLIA [id number] [address] [place] [address] [place] CT BRAIN WO IVCONon 11-26-[address] BRAIN WO IVCON * * *Final Report* * * DATE OF EXAM: Nov 25 2024 11:20AM [facility] 0504 - CT BRAIN WO IVCON / [...] no CT evidence of acute intracranial hemorrhage. Bus Girl: MIRIAN Transcribe Date/Time: Nov 25 2024 11:43A Dictated by : CLARK LY MD This examination was interpreted and the report reviewed and electronically signed by: CLARK LY MD on Nov 25 2024 11:50AM EST [id number] Normal [facility] Cardiolipin IgA Ser IA-aCnco n 11-25-2024 Cardiolipin IgA IA Qn (S) <9.0 Normal <12.0 [facility] Comment on above: Order Comment: Speci men Type: BLOOD SPECIMEN Ordering Facility: [facility] Address: [address] [place] [address] Result Comment: <12 APL Negative 12-20 APL Indeterminate >20 APL Positive The following results were obtained with the [employer] QUANTA Lite RASHMI IgA III DENISE. Cardiolipin IgA values obtained with the different manufacturers' assay methods may not be used interchangeably. The magnitude of the reported IgA levels cannot be correlated to an endpoint titer. Performed By: #### 5 8410-2 #### [facility] CLIA [id number] [address] [place] [address] [place] ECHO WITH AGITATED SALINE CO NTRASTon 11-25-2024 ECHO WITH AGITATED SALINE CONTRAST Echocardiography Report: Transthoracic Echo [facility] Date of service: 11/25/2024 10:24:36 AM [facility] Ordering physician: GREG GARAY Indication: Stroke Technologist: Mateo Mendes [facility] Interpreting physician: Benny Coburn MD PATIENT: Name: [...] * * Final * * * CC [employer] [facility] : [id number] Normal [facility] HISTORY PHYSICALon HISTORY PHYSICAL HNO ID: [id number] Author: YORDAN HYLTON PA-C Service: Neurology ICU Author Type: Physician Freight Broker Agent Type: H&P Filed: 11/25/2024 00:02 Note Text: [...] agent prior to admission: No Premorbid Modified Yohannes Score: 0=0 - No symptoms at all Baseline Functional Status (i.e. ADL's, Ambulatory Status, Cognitive Issues): Independent Subjective HPI: 34 year old male with PMHx Kidney stone, HIV on [employer], polycystic kidney disease, current smoker, and precancerous lesions in the colon with unclear prior surgery who presented to [facility] 11/24 for elective EGD and colonoscopy for [...] TNK given @ 11:14 AM. Transferred to [facility] NSICU service for close neurologic monitoring. [...] cough, whe (more content not included)... Normal [facility] HYPERCOAG PANELon 11-25-2024 Activated protein C resistance Coag (PPP) [Time ratio] 2.33 Ratio Normal >1.96 [facility] Comment on above: Order Comment: Joie xiao Type: BLOOD SPECIMEN Ordering Facility: [facility] Address: [address] [place] [address] Performed By: #### 5 8410-2 #### [facility] CLIA [id number] [address] Antithrombin actual/normal Chromogenic method (PPP) [Rel catalytic activity/Vol] 114 % Normal 84-138 [facility] Comment on above: Order Comment: Joie xiao Type: BLOOD SPECIMEN Ordering Facility: [facility] Address: [address] [place] [address] Performed By: #### 5 8410-2 #### [facility] [place] [place] [facility] CLIA [id number] [address] STATES OF [facility] aPTT Coag (Bld) [Time] 24.5 s Normal 24.0-35.1 [place] Comment on above: Order Comment: Joie xiao Type: BLOOD SPECIMEN Ordering Facility: [facility] Address: [address] [place] [address] Performed By: #### 5 8410-2 #### [facility] [place] [place] [facility] CLIA [id number] [address] STATES [facility] aPTT W excess hexagonal phase phospholipid Coag (PPP) [Time] 35.5 seconds Normal 34.0-51.8 [facility] Comment on above: Order Comment: Joie xiao Type: BLOOD SPECIMEN Ordering Facility: [facility] Address: [address] [place] [address] Performed By: #### 5 8410-2 #### [facility] [place] [place] [facility] CLIA [id number] [address] OF [facility] Coagulation factor VIII activity actual/normal Coag (PPP) [Relative time] 150 % Normal 50-173 [facility] Comment on above: Order Comment: Speci men Type: BLOOD SPECIMEN Ordering Facility: [facility] Address: [address] [place] [address] Performed By: #### 5 8410-2 #### [facility] CLIA [id number] [address] Coagulation factor X activated act Coag Qn (PPP) <0.10 Normal <0.10 [facility] Comment on above: Order Comment: Speci men Type: BLOOD SPECIMEN Ordering Facility: [facility] Address: [address] [place] [address] Result Comment: This test was developed, and its performance characteristics determined by the [facility] Department of Pathology and Laboratory Medicine. It has not been cleared or approved by the FDA. The [facility] Department of Pathology and Laboratory Medicine is regulated under CLIA as qualified to perform high-complexity testing. This test is used for clinical purposes. It should not be regarded as investigational or for research. Performed By: #### 5 8410-2 #### [facility] [place] [place] [facility] CLIA [id number] [address] Delta dRVVT Coag (PPP) [Time diff] 4.3 delta seconds Normal <7.1 [facility] Comment on above: Order Comment: Speci men Type: BLOOD SPECIMEN Ordering Facility: [facility] Address: [address] [place] [address] Performed By: #### 5 8410-2 #### [facility] [place] [place] [facility] CLIA [id number] [address] dRVVT W excess hexagonal phase phospholipid actual/normal Coag (PPP) [Relative time] 31.2 seconds Low 34.2-47.9 [facility] Comment on above: Order Comment: Speci men Type: BLOOD SPECIMEN Ordering Facility: [facility] Address: [address] [place] [address] Performed By: #### 5 8410-2 #### [facility] CLIA [id number] [address] Protein C actual/normal Coag (PPP) [Relative time] 101 % Normal 76-147 [facility] Comment on above: Order Comment: Speci men Type: BLOOD SPECIMEN Ordering Facility: [facility] Address: [address] [place] [address] Performed By: #### 5 8410-2 #### [facility] CLIA [id number] [address] Protein S actual/normal Coag (PPP) [Relative time] 107 % Normal 59-152 [facility] Comment on above: Order Comment: Speci men Type: BLOOD SPECIMEN Ordering Facility: [facility] Address: [address] [place] [address] Performed By: #### 5 8410-2 #### [facility] CLIA [id number] [address] Thrombin time Coag (PPP) [Time] <16.8 Normal <18.6 [facility] Comment on above: Order Comment: Speci men Type: BLOOD SPECIMEN Ordering Facility: [facility] Address: [address] [place] [address] Performed By: #### 5 8410-2 #### [facility] CLIA [id number] [address] HYPERCOAG PANEL INTERPon INTERPRETATION (HYPERCOAG) Normal [facility] Comment on above: Order Comment: Speci dameon Type: BLOOD SPECIMEN Ordering Facility: [facility] Address: [address] [place] [address] Result Comment: Norm al - see comment below. A laboratory [...] negative for the c.*97G>A variant (legacy name 02269Q>A) in the 3' untranslated region of the [...] resistance. Performed By: #### 5 8410-2 #### [facility] CLIA [id number] [address] [place] [address] Pathologist name Reviewed by Rena Patel M.D., Ph.D [facility] Comment on above: Order Comment: Joie xiao Type: BLOOD SPECIMEN Ordering Facility: [facility] Address: [address] [place] [address] Performed By: #### 5 8410-2 #### [facility] CLIA [id number] [address] [place] [address] Magnesium [facility] Magnesium [Mass/Vol] 1.7 mg/dL Normal 1.7-2.3 [facility] Comment on above: Order Comment: Joie xiao Type: BLOOD SPECIMEN Ordering Facility: [facility] Address: [address] [place] [address] Performed By: #### 5 8410-2 #### [facility] CLIA [id number] [address] OF [facility] NUTRITIONon 11-25-2024 NUTRITION HNO ID: [id number] Author: ELIO TOMPKINS RD Service: Nutrition Therapy [...] Diet Orders (From admission, onward) Start Ordered 11/24/242329 DIET REGULAR START NOW 11/24/24 2322 Anthropometrics: [...] November 25, 2024 TIME: 1:25 PM Normal [facility] PROTHROMBIN GENE PCRon 11-25 PROTHROMBIN GENE MUTATION Normal [facility] Comment on above: Order Comment: Speci men Type: BLOOD SPECIMEN Ordering Facility: [facility] Address: [address] [place] [address] Result Comment: Prot hrombin Gene Mutation Laboratory Accession Number: [id number] Result: NORMAL Interpretation: The DNA sample is negative for the c.*97G>A variant (legacy name 88140Z>A) in the 3' untranslated region of the Factor II (F2) gene. This result is not associated with an increased risk of thromboembolic disease. Thromboembolic disease is a multifactorial disorder and other causes are not excluded by this result. Methodology: Isolated Genomic DNA from the patient's blood specimen is evaluated for the c*97G>A ([id number].[id number]) variant of the F2 gene [RefSeq NM_000506.53;GRCh38/hg38] by multiplex polymerase chain reaction (PCR) followed by melting curve analysis. Limitations: This assay is designed to detect the c.*97G>A (50782X>A) variant in the F2 gene. Uncommon variants or single nucleotide polymorphisms may affect binding of probes and may rarely result in false negative, false positive or indeterminate results. This assay does not detect other disease-associated rare variants in F2 or other causes of thromboembolic disease. Disclaimer: This test was developed and its performance characteristics determined by [facility]'s Pathology and Laboratory Medicine Department. It has not been cleared or approved by the FDA. [facility] Pathology and Laboratory Medicine Department is regulated under CLIA as certified to perform high-complexity testing. This test is used for clinical purposes. It should not be regarded as investigational or for research. Test performed at [facility], [address] [place] [address]. CLIA Number: [id number] References: 1) Inheritied Thrombophilias in . ACOG Practice Bulletin. No. 197. [place] [employer]. Obsete Gynecol 2018;132:e18-34. 2) Caitiet SR, Daija FR, Reifeanyi PH, and Dorota TEJADA. A common genetic variation in the 3'-untranslated region of the prothrombin gene is associated with elevated plasma prothrombin levels and an increase in venous thrombosis. Blood 88:3698-703, 1995. 3) Asuncion I, José Luis V, [place] C, Donte K. Prothrombin 74803R>T: 16 new cases, association with the 38543Z>G polymorphism, and literature review. J Thromb Haemost. 2009;9:1585-7. Interpretation performed at remote location (R0A1) by Nikkie Rivera MD Performed By: #### C ORPNL #### [facility] [place] [place] [facility] CLIA [id number] [address] [place] [address] [place] Phosphate SerPl-mCncon 11-25 Phosphate [Mass/Vol] 4.1 mg/dL Normal 2.7-4.8 [facility] Comment on above: Order Comment: Speci men Type: BLOOD SPECIMEN Ordering Facility: [facility] Address: [address] [place] [address] Performed By: #### 5 8410-2 #### [id number] [address] [place] THERAPY NTon 11-25-2024 THERAPY NT HNO ID: [id number] Author: AGATA RODRIGUEZ, OTR/L Service: Occupational Therapy Author Type: Occupational Therapist Type: Therapy (PT/OT/Speech/Resp) Filed: 11/25/2024 15:28 Note Text: Occupational Therapy Evaluation Summary SERVICE DATE: 11/25/2024 SERVICE TIME: 1320 to 1337 ROOM: [place] [address] OT 6 Clicks Score: 24 DISCHARGE RECOMMENDATIONS Home ASSESSMENT Response to Therapy Interventions: Good Participation in Activities patient slightly weaker on the L side, but remains independent with self care and mobility, no further OT needs, will sign off. PRECAUTIONS none CURRENT HOSPITAL COURSE Presented to [facility] 11/24 for elective EGD and colonoscopy. He was noted to develop Left sided weakness. Transferred to [facility] NSICU service for close neurologic monitoring. [...] Time (minutes): 17 $ Evaluation - Low (48922) Billed Units: 1 unit TRAINING AND EDUCATION [...] Therapy Services Discontinued: No skilled needs SIGNATURE: Agata Rodriguez OTR/L PATIENT NAME: Faustino Unger DATE: November 25, 2024 TIME: 3:27 PM Normal [facility] THERAPY NT HNO ID: [id number] Author: YASEMIN MABRY CCC-GLAZIER [employer]URN[employer]URE Service: Speech/Swallow Author Type: Speech Language Pathologist Type: Therapy (PT/OT/Speech/Resp) Filed: 11/25/2024 09:07 Note Text: Speech Therapy Clinical Swallow Evaluation SERVICE DATE: 11/25/2024 SERVICE TIME: 0842 to 0857 ROOM: [place] [address] IMPRESSION Functional oropharyngeal phases of swallowing: without [...] Limits Patient Lives With: (friends) Assistance Available: time study clerk Prior Swallowing Function/Diet Textures: Regular Consistency, Thin Liquids IDDSI Level 0 SUBJECTIVE Awake and agrees to testing THERAPY DIAGNOSIS No Skilled Need TREATMENT INTERVENTIONS Clinical Swallow Evaluation (80699) Skilled Treatment Time (minutes): 15 $ Clinical Swallow Evaluation (28448) Billed Units: 1 unit TRAINING AND EDUCATION [...] Developed with: Patient, Nurse SIGNATURE: Yasemin Mabry CCC-GLAZIER [employer]URN[employer]URE PATIENT NAME: Faustino Unger DATE: November 25, 2024 TIME: 9:04 AM Normal [facility] THERAPY NT HNO ID: [id number] Author: MOJGAN HALL PT Service: Physical Therapy Author Type: Physical Therapist Type: Therapy (PT/OT/Speech/Resp) Filed: 11/25/2024 08:08 Note Text: PHYSICAL THERAPY MISSED VISIT SERVICE DATE: 11/25/2024 SERVICE TIME: 806 ROOM: [place] [address] Patient not seen due to Hold Monitor AND Reassess (TNK given 11/24/24 @1114, bedrest [id number]. Will see after bedrest expires.). SIGNATURE: Mojgan Hall PT PATIENT NAME: Faustino Unger DATE: November 25, 2024 TIME: 8:08 AM Normal [facility] Urinalysis complete panel (U )on 11-25-2024 Bilirubin Ql (U) Negative Normal Negative [facility] Comment on above: Order Comment: Speci men Type: BLOOD SPECIMEN Ordering Facility: [facility] Address: [address] [place] [address] Performed By: #### C ORPNL #### [facility] CLIA [id number] [address] [place] Clarity (Unsp spec) Clear Normal Clear [facility] Comment on above: Order Comment: Speci men Type: BLOOD SPECIMEN Ordering Facility: [facility] Address: [address] [place] [address] Performed By: #### C ORPNL #### [facility] CLIA [id number] [address] Color (U) Light Yellow Normal yellow [facility] Comment on above: Order Comment: Speci men Type: BLOOD SPECIMEN Ordering Facility: [facility] Address: [address] [place] [address] Performed By: #### C ORPNL #### [facility] CLIA [id number] [address] Glucose Test strip (U) [Mass/Vol] Negative Normal Trace, Negative [facility] Comment on above: Order Comment: Speci men Type: BLOOD SPECIMEN Ordering Facility: [facility] Address: [address] [place] [address] Performed By: #### C ORPNL #### [facility] CLIA [id number] [address] [place] Hemoglobin Ql (U) Negative Normal Negative, Trace [facility] Comment on above: Order Comment: Speci men Type: BLOOD SPECIMEN Ordering Facility: [facility] Address: [address] [place] [address] Performed By: #### C ORPNL #### [facility] CLIA [id number] [address] [place] Ketones Ql (U) Negative Normal Negative, Trace [facility] Comment on above: Order Comment: Speci men Type: BLOOD SPECIMEN Ordering Facility: [facility] Address: [address] [place] [address] Performed By: #### C ORPNL #### [facility] CLIA [id number] [address] Leukocyte esterase Test strip Ql (U) Negative Normal Negative, 25 Julia/uL [facility] Comment on above: Order Comment: Speci men Type: BLOOD SPECIMEN Ordering Facility: [facility] Address: [address] [place] [address] Performed By: #### C ORPNL #### [facility] [place] [place] [facility] CLIA [id number] [address] Nitrite Ql (U) Negative Normal Negative [facility] Comment on above: Order Comment: Speci men Type: BLOOD SPECIMEN Ordering Facility: [facility] Address: [address] [place] [address] Performed By: #### C ORPNL #### [facility] [place] [place] [facility] CLIA [id number] [address] [place] pH (U) 6.5 [pH] Normal 5.0-8.0 [facility] Comment on above: Order Comment: Speci men Type: BLOOD SPECIMEN Ordering Facility: [facility] Address: [address] [place] [address] Performed By: #### C ORPNL #### [facility] CLIA [id number] [address] Protein (U) [Mass/Vol] Negative Normal Trace , Negative [facility] Comment on above: Order Comment: Speci men Type: BLOOD SPECIMEN Ordering Facility: [facility] Address: [address] [place] [address] Performed By: #### C ORPNL #### [facility] CLIA [id number] [address] [place] RBC LM.HPF (Urine sed) [#/Area] 0-3 /HPF Normal 0-3 /HPF [facility] Comment on above: Order Comment: Speci men Type: BLOOD SPECIMEN Ordering Facility: [facility] Address: [address] [place] [address] Performed By: #### C ORPNL #### [facility] [place] [place] [facility] CLIA [id number] [address] Specific gravity (U) [Rel density] 1.021 Normal 1.005-1.030 [facility] Comment on above: Order Comment: Speci men Type: BLOOD SPECIMEN Ordering Facility: [facility] Address: [address] [place] [address] Performed By: #### C ORPNL #### [facility] [place] [place] [facility] CLIA [id number] [address] Urobilinogen Ql (U) Normal Normal Normal [facility] Comment on above: Order Comment: Speci men Type: BLOOD SPECIMEN Ordering Facility: [facility] Address: [address] [place] [address] Performed By: #### C ORPNL #### [facility] [place] [place] [facility] CLIA [id number] [address] WBC LM.HPF (Urine sed) [#/Area] 0-5 /HPF Normal 0-5 /HPF [facility] Comment on above: Order Comment: Speci men Type: BLOOD SPECIMEN Ordering Facility: [facility] Address: [address] [place] [address] Performed By: #### C ORPNL #### [facility] [place] [place] [facility] CLIA [id number] [address] [place] [address] OF [place] ALLIED HEALTHon 11-24-2024 [facility] HNO ID: [id number] Author: TALA PHELPS RT(Maurice) Service: Radiology Author Type: Commercial Portfolio Manager Type: Allied Health Filed: 11/24/2024 11:38 Note [...] PATIENT PRESENTS WITH AN IMPLANTABLE OR ATTACHED SECTION GANG: No RADIOLOGY DEPARTMENT: General X-ray: Exam(s) Completed: Chest X-Ray PERIPHERAL IV DATA: Not applicable SIGNED BY: RT Dick(Maurice) November 24, 2024 11:38 AM [facility] HNO ID: [id number] Author: JADYN BARRERA CT Service: Radiology Author Type: Technologist Type: [...] PATIENT PRESENTS WITH AN IMPLANTABLE OR ATTACHED SECTION GANG: No RADIOLOGY DEPARTMENT: CT; Exam(s) Completed: Brain , CTA Brain , and CTA Neck PERIPHERAL IV DATA: Inpatient: see LDA documentation SIGNED BY: RADHA Rome November 24, 2024 10:58 AM [facility] ANES POSTPROC EVALon 025 ANES POSTPROC EVAL HNO ID: [id number] Author: TORY LAMBERT MD Service: Anesthesiology Author Type: Anesthesiologist Type: Anesthesia Postprocedure Evaluation Filed: 11/24/2024 11:47 Note Text: POST ANESTHESIA EVALUATION NOTE : 1990 Procedure Summary Date: 11/24/24 Room / Location: [facility] Endoscopy Anesthesia Start: 934 Anesthesia Stop: 1022 Procedures: EGD DIAGNOSTIC COLONOSCOPY SCREENING Diagnosis: Heart burn Epigastric abdominal pain History of colonic polyps (High risk colon cancer surveillance: Personal history of colonic polyps) (Epigastric abdominal pain) Scheduled Providers: Deborah Kendall MD; Missy Guerra APRN.FOOD SERVICE AGENT; Tory Lambert MD Responsible Provider: Tory Lambert [...] November 24, 2024 TIME: 10:29 AM CSN: [id number] [facility] ANES PRE-OPon 11-24-2024 ANES PRE-OP HNO ID: [id number] Author: TORY LAMBERT MD Service: Anesthesiology Author Type: Anesthesiologist Type: Anesthesia Preprocedure Evaluation Filed: 11/24/2024 09:08 Note Text: ANESTHESIOLOGY DAY OF SURGERY NOTE : 1990 Procedure Information Date/Time: 11/24/24 1130 Scheduled providers: Deborah Kendall MD; Missy Guerra APRN.ELO; Tory Lambert MD Procedures: EGD DIAGNOSTIC COLONOSCOPY SCREENING Location: [facility] Endoscopy Estimated body mass index is 25.24 [...] and consent discussed: yes. Patient / Responsible Republican agrees to proceed: yes Patient / Surrogate [...] November 24, 2024 TIME: 9:07 AM CSN: [id number] Normal [facility] CBC W Auto Differential pane l (Bld)on 11-24-2024 Basophils (Bld) [#/Vol] 0.03 10*3/uL Normal <0.11 [facility] Comment on above: Order Comment: Speci men Type: BLOOD SPECIMEN Ordering Facility: [facility] Address: [address] [place] [address] [place] [address] Performed By: #### 5 7021-8 #### [facility] CLIA [id number] 1000 [place] [address] [place] Basophils/100 WBC (Bld) 0.4 % Normal [facility] Comment on above: Order Comment: Speci men Type: BLOOD SPECIMEN Ordering Facility: [facility] Address: [address] [place] [address] Performed By: #### 5 7021-8 #### [facility] CLIA [id number] [address] [place] Differential cell count method Nom (Bld) Auto Normal [facility] Comment on above: Order Comment: Speci men Type: BLOOD SPECIMEN Ordering Facility: [facility] Address: [address] [place] [address] Performed By: #### 5 7021-8 #### [facility] CLIA [id number] [address] [place] [address] [place] Eosinophils (Bld) [#/Vol] 0.24 10*3/uL Normal <0.46 [facility] Comment on above: Order Comment: Speci men Type: BLOOD SPECIMEN Ordering Facility: [facility] Address: [address] [place] [address] Performed By: #### 5 7021-8 #### [facility] CLIA [id number] [address] [place] Eosinophils/100 WBC (Bld) 3.6 % Normal [facility] Comment on above: Order Comment: Speci men Type: BLOOD SPECIMEN Ordering Facility: [facility] Address: [address] [place] [address] Performed By: #### 5 7021-8 #### [facility] CLIA [id number] [address] [place] Erythrocyte distribution width (RBC) [Ratio] 13.9 % Normal 11.5-15.0 [facility] Comment on above: Order Comment: Speci men Type: BLOOD SPECIMEN Ordering Facility: [facility] Address: [address] [place] [address] Performed By: #### 5 7021-8 #### [facility] CLIA [id number] [address] [place] Hematocrit (Bld) [Volume fraction] 41.6 % Normal 39.0-51.0 [facility] Comment on above: Order Comment: Speci men Type: BLOOD SPECIMEN Ordering Facility: [facility] Address: [address] [place] [address] Performed By: #### 5 7021-8 #### [facility] CLIA [id number] [address] [place] Hemoglobin (Bld) [Mass/Vol] 13.5 g/dL Normal 13.0-17.0 [facility] Comment on above: Order Comment: Speci men Type: BLOOD SPECIMEN Ordering Facility: [facility] Address: [address] [place] [address] Performed By: #### 5 7021-8 #### [facility] CLIA [id number] [address] [place] Immature granulocytes (Bld) [#/Vol] 10*3/uL Normal <0.10 [facility] Comment on above: Order Comment: Speci men Type: BLOOD SPECIMEN Ordering Facility: [facility] Address: [address] [place] [address] Performed By: #### 5 7021-8 #### [facility] CLIA [id number] [address] [place] Immature granulocytes/100 WBC (Bld) 0.3 % Normal [facility] Comment on above: Order Comment: Speci men Type: BLOOD SPECIMEN Ordering Facility: [facility] Address: [address] [place] [address] Performed By: #### 5 7021-8 #### [facility] CLIA [id number] [address] [place] [address] [place] Lymphocytes (Bld) [#/Vol] 2.37 10*3/uL Normal 1.00-4.00 [facility] Comment on above: Order Comment: Speci men Type: BLOOD SPECIMEN Ordering Facility: [facility] Address: [address] [place] [address] Performed By: #### 5 7021-8 #### [facility] CLIA [id number] [address] Lymphocytes/100 WBC (Bld) 35.3 % Normal [facility] Comment on above: Order Comment: Speci men Type: BLOOD SPECIMEN Ordering Facility: [facility] Address: [address] [place] [address] Performed By: #### 5 7021-8 #### [facility] CLIA [id number] [address] MCH (RBC) [Entitic mass] 30.3 pg Normal 26.0-34.0 [facility] Comment on above: Order Comment: Speci men Type: BLOOD SPECIMEN Ordering Facility: [facility] Address: [address] [place] [address] Performed By: #### 5 7021-8 #### [facility] CLIA [id number] [address] MCHC (RBC) [Mass/Vol] 32.5 g/dL Normal 30.5-36.0 [facility] Comment on above: Order Comment: Speci men Type: BLOOD SPECIMEN Ordering Facility: [facility] Address: [address] [place] [address] Performed By: #### 5 7021-8 #### [facility] CLIA [id number] [address] MCV (RBC) [Entitic vol] 93.5 fL Normal 80.0-100.0 [facility] Comment on above: Order Comment: Speci men Type: BLOOD SPECIMEN Ordering Facility: [facility] Address: [address] [place] [address] Performed By: #### 5 7021-8 #### [facility] CLIA [id number] [address] Monocytes (Bld) [#/Vol] 0.83 10*3/uL Normal <0.87 [facility] Comment on above: Order Comment: Speci men Type: BLOOD SPECIMEN Ordering Facility: [facility] Address: [address] [place] [address] Performed By: #### 5 7021-8 #### [facility] CLIA [id number] [address] Monocytes/100 WBC (Bld) 12.4 % Normal [facility] Comment on above: Order Comment: Speci men Type: BLOOD SPECIMEN Ordering Facility: [facility] Address: [address] [place] [address] Performed By: #### 5 7021-8 #### [facility] CLIA [id number] [address] Neutrophils (Bld) [#/Vol] 3.22 10*3/uL Normal 1.45-7.50 [facility] Comment on above: Order Comment: Speci men Type: BLOOD SPECIMEN Ordering Facility: [facility] Address: [address] [place] [address] Performed By: #### 5 7021-8 #### [facility] CLIA [id number] [address] Neutrophils/100 WBC (Bld) 48.0 % Normal [facility] Comment on above: Order Comment: Speci men Type: BLOOD SPECIMEN Ordering Facility: [facility] Address: [address] [place] [address] Performed By: #### 5 7021-8 #### [facility] CLIA [id number] [address] STATES [facility] Nucleated RBC (Bld) [#/Vol] 10*3/uL Normal <0.01 [facility] Comment on above: Order Comment: Speci men Type: BLOOD SPECIMEN Ordering Facility: [facility] Address: [address] [place] [address] Performed By: #### 5 7021-8 #### [facility] CLIA [id number] [address] Nucleated RBC/100 WBC (Bld) [Ratio] 0.0 /100 WBC Normal [facility] Comment on above: Order Comment: Speci men Type: BLOOD SPECIMEN Ordering Facility: [facility] Address: [address] [place] [address] Performed By: #### 5 7021-8 #### [facility] CLIA [id number] [address] Platelet mean volume (Bld) [Entitic vol] 8.6 fL Low 9.0-12.7 [facility] Comment on above: Order Comment: Speci men Type: BLOOD SPECIMEN Ordering Facility: [facility] Address: [address] [place] [address] Performed By: #### 5 7021-8 #### [facility] CLIA [id number] [address] Platelets (Bld) [#/Vol] 245 10*3/uL Normal 150-400 [facility] Comment on above: Order Comment: Speci men Type: BLOOD SPECIMEN Ordering Facility: [facility] Address: [address] [place] [address] Performed By: #### 5 7021-8 #### [facility] CLIA [id number] [address] [place] RBC (Bld) [#/Vol] 4.45 10*6/uL Normal 4.20-6.00 [facility] Comment on above: Order Comment: Speci men Type: BLOOD SPECIMEN Ordering Facility: [facility] Address: [address] [place] [address] Performed By: #### 5 7021-8 #### [facility] CLIA [id number] [address] [place] WBC (Bld) [#/Vol] 6.71 10*3/uL Normal 3.70-11.00 [facility] Comment on above: Order Comment: Speci men Type: BLOOD SPECIMEN Ordering Facility: [facility] Address: [address] [place] [address] Performed By: #### 5 7021-8 #### [facility] CLIA [id number] [address] BRAIN ATTACK WO IVCONon 0 11-24-2024 CT BRAIN ATTACK WO IVCON * * *Final Report* * * DATE OF EXAM: Nov 24 2024 11:00AM [facility] - CT BRAIN ATTACK WO IVCON [...] CUELLO on 11/24/2024 11:07 AM . CR_1 Bus Girl: MIRIAN Transcribe Date/Time: Nov 24 2024 11:04A Dictated by : TJ ROY DO This examination was interpreted and the report reviewed and electronically signed by: TJ ROY DO on Nov 24 2024 11:08AM EST [id number] CRITICAL!! Invalid Interpretation Code [facility] CTA HEAD W IVCONon CTA HEAD W IVCON * * *Final Report* * * DATE OF EXAM: Nov 24 2024 11:10AM [facility] - CTA HEAD W IVCON / [...] No flow-limiting stenosis. No aneurysm. 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 No flow-limiting stenosis. No aneurysm. * Patent [...] Concordance between software and imaging review: Concordant. Bus Girl: MIRIAN Transcribe Date/Time: Nov 24 2024 11:20A Dictated by : SOFIA LUNA MD This examination was interpreted and the report reviewed and electronically signed by: TJ ROY DO on Nov 24 2024 11:46AM EST [id number] [facility] CTA NECK W IVCONon CTA NECK W IVCON * * *Final Report* * * DATE OF EXAM: Nov 24 2024 11:10AM [facility] - CTA NECK W IVCON / [...] No flow-limiting stenosis. No aneurysm. 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 No flow-limiting stenosis. No aneurysm. * Patent [...] Concordance between software and imaging review: Concordant. Bus Girl: MIRIAN Transcribe Date/Time: Nov 24 2024 11:20A Dictated by : SOFIA LUNA MD This examination was interpreted and the report reviewed and electronically signed by: TJ ROY DO on Nov 24 2024 11:46AM EST [id number] Normal [facility] Colonoscopyon 11-24-2024 Colonoscopy [facility] Gastrointestinal Endoscopy Patient Name: Faustino Unger Procedure Date: 11/24/2024 9:54 AM Date of : 1990 Admit Type: Outpatient Age: 34 Room: [facility] Gender: Male Note Status: [facility] Director Override Attending MD: Deborah Kendall MD, [id number] Procedure: Colonoscopy - screening high risk for [...] anesthesia care under the supervision of a FOOD SERVICE AGENT was determined to be medically necessary for [...] previous diet. Procedure Code(s): --- Professional --- 78280, Colonoscopy, flexible; diagnostic, including collection of specimen(s) by brushing or washing, when performed (separate procedure) Diagnosis Code(s): --- Professional --- Z12.11, Encounter for screening for malignant neoplasm of colon Z86.0100, Personal history of colon polyps, unspecified K64.8, Other hemorrhoids CPT copyright 2020 [employer]. All rights reserved. The codes documented in this report are preliminary and upon industrial spray painter review may be revised to meet current compliance requirements. Attending Participation: I personally performed the entire procedure. Scope In: 10:00:41 AM Scope Out: 10:13:18 AM MD Deborah Walsh MD 11/24/2024 10:16:43 AM This report has been signed electronically by Deborah Kendall MD Number of Addenda: 0 Note Initiated On: 11/24/2024 9:54 AM Estimated Blood Loss: Estimated blood loss: none. Normal [facility] Colonoscopy Study observatio non 11-24-2024 [facility] Gastrointestinal Endoscopy Patient Name: Faustino Unger Procedure Date: 11/24/2024 9:01 AM Date of : 1990 Admit Type: Outpatient Age: 34 Room: [facility] Gender: Male Note Status: Finalized Attending MD: Deborah Kendall MD, [id number] Procedure: Upper GI endoscopy Indications: Epigastric abdominal pain Providers: Deborah Kendall MD Patient Profile: Refer to note in patient chart for documentation of history and physical. Referring Physician: Cathi Parks (Referring MD) Medicines: See the Anesthesia note for documentation of the administered medications Complications: No immediate complications. Requesting Provider: Procedure: Pre-Anesthesia Assessment: - Monitored anesthesia care under the supervision of a FOOD SERVICE AGENT was determined to be medically necessary for [...] pathology results Procedure Code(s): --- Professional --- 24464, Esophagogastroduodenoscop y, flexible, transoral; with biopsy, single or multiple Diagnosis Code(s): --- Professional --- K31.89, Other diseases of stomach and duodenum K22.89, Other specified disease of esophagus R10.13, Epigastric pain CPT copyright 2020 [employer]. All rights reserved. The codes documented in this report are preliminary and upon industrial spray painter review may be revised to meet current compliance requirements. Attending Participation: I personally performed the entire procedure. Scope In: 9:41:40 AM Scope Out: 9:53:45 AM MD Deborah Walsh MD 11/24/2024 9:59:42 AM This report has been signed electronically by Deborah Kendall MD Number of Addenda: 0 Note Initiated On: 11/24/2024 9:01 AM Estimated Blood Loss: Estimated blood loss was minimal. [facility] Radiology Study observation (narrative) [facility] Comprehensive metabolic 2000 panelon 11-24-2024 Albumin [Mass/Vol] 3.9 g/dL Normal 3.9-4.9 [facility] Comment on above: Order Comment: Joie xiao Type: BLOOD SPECIMEN Ordering Facility: [facility] Address: [address] [place] [address] Performed By: #### 1 4979-9, 62330-4 #### [facility] CLIA [id number] [address] ALP [Catalytic activity/Vol] 84 U/L Normal 38-113 [facility] Comment on above: Order Comment: Joie xiao Type: BLOOD SPECIMEN Ordering Facility: [facility] Address: [address] [place] [address] Performed By: #### 1 4979-9, 17381-0 #### [facility] CLIA [id number] [address] ALT [Catalytic activity/Vol] 18 U/L Normal 10-54 [facility] Comment on above: Order Comment: Joie xiao Type: BLOOD SPECIMEN Ordering Facility: [facility] Address: [address] [place] [address] Performed By: #### 1 4979-9, 30132-0 #### [facility] CLIA [id number] [address] [place] [address] [place] Anion gap [Moles/Vol] 7 mmol/L Low 8-15 [facility] Comment on above: Order Comment: Speci men Type: BLOOD SPECIMEN Ordering Facility: [facility] Address: [address] [place] [address] Performed By: #### 1 4979-9, 85895-0 #### [facility] CLIA [id number] [address] [place] [address] [place] AST [Catalytic activity/Vol] 21 U/L Normal 14-40 [facility] Comment on above: Order Comment: Speci men Type: BLOOD SPECIMEN Ordering Facility: [facility] Address: [address] [place] [address] Performed By: #### 1 4979-9, 25334-8 #### [facility] CLIA [id number] [address] [place] Bilirubin [Mass/Vol] 0.4 mg/dL Normal 0.2-1.3 [facility] Comment on above: Order Comment: Speci men Type: BLOOD SPECIMEN Ordering Facility: [facility] Address: [address] [place] [address] Performed By: #### 1 4979-9, 58968-5 #### [facility] CLIA [id number] [address] [place] Calcium [Mass/Vol] 8.8 mg/dL Normal 8.5-10.2 [facility] Comment on above: Order Comment: Speci men Type: BLOOD SPECIMEN Ordering Facility: [facility] Address: [address] [place] [address] Performed By: #### 1 4979-9, 33543-2 #### [facility] CLIA [id number] [address] [place] [address] [place] Chloride [Moles/Vol] 104 mmol/L Normal 98-107 [facility] Comment on above: Order Comment: Speci men Type: BLOOD SPECIMEN Ordering Facility: [facility] Address: [address] [place] [address] Performed By: #### 1 4979-9, 52227-0 #### [facility] CLIA [id number] [address] CO2 [Moles/Vol] 28 mmol/L Normal 22-30 [facility] Comment on above: Order Comment: Joie xiao Type: BLOOD SPECIMEN Ordering Facility: [facility] Address: [address] [place] [address] Performed By: #### 1 4979-9, 86727-8 #### [facility] CLIA [id number] [address] [place] Creatinine [Mass/Vol] 0.88 mg/dL Normal 0.73-1.22 [facility] Comment on above: Order Comment: Joie xiao Type: BLOOD SPECIMEN Ordering Facility: [facility] Address: [address] [place] [address] Performed By: #### 1 4979-9, 97070-3 #### [facility] CLIA [id number] [address] Creatinine and Glomerular filtration rate.predicted panel (S/P/Bld) 114 mL/min/1.73m??? Normal >=60 [facility] Comment on above: Order Comment: Joie xioa Type: BLOOD SPECIMEN Ordering Facility: [facility] Address: [address] [place] [address] Result Comment: Mar mated Glomerular Filtration Rate [...] reflect actual GFR. Performed By: #### 1 4979-9, 89647-9 #### [facility] CLIA [id number] [address] [facility] Glucose [Mass/Vol] 59 mg/dL Low 74-99 [facility] Comment on above: Order Comment: Joie dameon Type: BLOOD SPECIMEN Ordering Facility: [facility] Address: [address] [place] [address] Result Comment: The [place] Diabetes Association (ADA) provides guidance for cutoff [...] Standards of Medical Care in Diabetes 2016, [place] Diabetes Association. Diabetes Care. 2016.39(Suppl 1). Performed By: #### 1 4979-9, 97235-2 #### [facility] CLIA [id number] [address] [place] [address] [place] Potassium [Moles/Vol] 4.1 mmol/L Normal 3.7-5.1 [facility] Comment on above: Order Comment: Joie xiao Type: BLOOD SPECIMEN Ordering Facility: [facility] Address: [address] [place] [address] Performed By: #### 1 4979-9, 81232-8 #### [facility] CLIA [id number] [address] [place] [address] [place] Protein [Mass/Vol] 6.5 g/dL Normal 6.3-8.0 [facility] Comment on above: Order Comment: Joie xiao Type: BLOOD SPECIMEN Ordering Facility: [facility] Address: [address] [place] [address] Performed By: #### 1 4979-9, 28738-3 #### [facility] CLIA [id number] [address] [place] [address] [place] Sodium [Moles/Vol] 139 mmol/L Normal 136-144 [facility] Comment on above: Order Comment: Joie xiao Type: BLOOD SPECIMEN Ordering Facility: [facility] Address: [address] [place] [address] Performed By: #### 1 4979-9, 57334-1 #### [facility] CLIA [id number] [address] [place] [address] [place] Urea nitrogen [Mass/Vol] 7 mg/dL Low 9-24 [facility] Comment on above: Order Comment: Speci men Type: BLOOD SPECIMEN Ordering Facility: [facility] Address: [address] [place] [address] Performed By: #### 1 4979-9, 09073-4 #### [facility] CLIA [id number] [address] [place] [address] [facility] ECG COMPLETEon 11-24-2024 ECG COMPLETE Ventricular Rate : 6 8 BPM Atrial Rate : 68 BPM P-R Interval : 140 ms QRS Duration : 80 ms Q-T Interval : 386 ms QTC Calculation(Bazett) : 410 ms Calculated P Paulina : 43 degrees Calculated R Paulina : 17 degrees Calculated T Paulina : 30 degrees NORMAL SINUS RHYTHM NORMAL ECG no STEMI Confirmed by DREW CUELLO MD ([id number]) on 12/03/2024 10:05:23 PM NAME : FAUSTINO UNGER PID : [id number] : 1990 Gender : Male Race : ORD : [id number] Procedure Date : Nov 24 2024 14:17:56 Edit Date : Dec 03 2024 22:05:26 Diagnosis: NORMAL SINUS RHYTHM NORMAL ECG no STEMI Confirmed by DREW CUELLO MD ([id number]) on 12/03/2024 10:05:23 PM Test Reason : Other - Specify Location : 1 : ER ED Overread By : DREW CUELLO MD Edited By : DREW CUELLO MD Referred By : , Acquired by : WILEY, [facility] ED NOTEon 11-24-2024 ED NOTE HNO ID: [id number] Author: MICHAEL JAMIL RN Service: ? Author Type: Registered Nurse Type: ED Notes Filed: 11/24/2024 21:41 Note Text: Report to transport. [facility] ED NOTE HNO ID: [id number] Author: LESVIA JAMA RN Service: ? Author Type: Registered Nurse Type: ED Notes Filed: 11/24/2024 19:01 Note Text: Patient and parents notified of bed at [facility] ED NOTE HNO ID: [id number] Author: LESVIA JAMA RN Service: ? Author Type: Registered Nurse Type: ED Notes Filed: 11/24/2024 19:02 Note Text: Patient sleeping at this time. [facility] ED NOTE HNO ID: [id number] Author: NEDA REYES RN Service: ? Author Type: Registered Nurse Type: ED Notes Filed: 11/24/2024 10:52 Note Text: Bed: ED-04 Expected date: Expected time: Means of arrival: Comments: [facility] ED PROV NOTEon 11-24-2024 ED PROV NOTE HNO ID: [id number] Author: DREW CUELLO MD Service: Emergency Medicine [...] Well Date Patient Last Known Well 11/24/24 -EH T (more content not included)... Normal [facility] EGD Study observation Narrat shefali 11-24-2024 [facility] Gastrointestinal Endoscopy Patient Name: Faustino Unger Procedure Date: 11/24/2024 9:54 AM Date of : 1990 Admit Type: Outpatient Age: 34 Room: [facility] Gender: Male Note Status: Finalized Attending MD: Deborah Kendall MD, [id number] Procedure: Colonoscopy - screening Indications: High risk [...] anesthesia care under the supervision of a FOOD SERVICE AGENT was determined to be medically necessary for [...] previous diet. Procedure Code(s): --- Professional --- 17659, Colonoscopy, flexible; diagnostic, including collection of specimen(s) by brushing or washing, when performed (separate procedure) Diagnosis Code(s): --- Professional --- Z12.11, Encounter for screening for malignant neoplasm of colon Z86.0100, Personal history of colon polyps, unspecified K64.8, Other hemorrhoids CPT copyright 2020 [place] [employer]. All rights reserved. The codes documented in this report are preliminary and upon industrial spray painter review may be revised to meet current compliance requirements. Attending Participation: I personally performed the entire procedure. Scope In: 10:00:41 AM Scope Out: 10:13:18 AM MD Deborah Walsh MD 11/24/2024 10:16:43 AM This report has been signed electronically by Deborah Kendall MD Number of Addenda: 0 Note Initiated On: 11/24/2024 9:54 AM Estimated Blood Loss: Estimated blood loss: none. [employer] [facility] Radiology Study observation (narrative) [facility] GLUCOSE, BLOOD (POC)on 11-24 Glucose [Mass/Vol] 77 mg/dL 74 - 99 mg/dL [facility] Comment on above: Location:[address], [address] The Accu-Chek Inform II glucose meter has [...] blood gas instrument) in the above situations. [facility] HIGH SENSITIVITY TROPONIN To n 11-24-2024 Troponin T.cardiac High sensitivity method [Mass/Vol] <6 Normal <12 [facility] Comment on above: Order Comment: Speci men Type: BLOOD SPECIMEN Ordering Facility: [facility] Address: [facility] [place] [address] Performed By: #### 1 4979-9, 12553-0 #### [facility] CLIA [id number] [address] [place] [address] [place] HISTORY PHYSICALon HISTORY PHYSICAL HNO ID: [id number] Author: DEBORAH KENDALL MD Service: General Surgery [...] colonoscopy was 07/02/[address] Dangelo at [facility]. Sedation: MAC EGD Impression: - Normal esophagus. [...] current facili (more content not included)... Normal [facility] HbA1c (Bld)on 11-24-2024 Average glucose Estimated from glycated hemoglobin (Bld) [Mass/Vol] 97 mg/dL Normal [facility] Comment on above: Order Comment: Joie xiao Type: BLOOD SPECIMEN Ordering Facility: [facility] Address: [address] [place] [address] Result Comment: eAG: (Estimated average glucose) is a calculated value from HgbA1c and is agency service representative of the average blood glucose level in the last 2-3 month period. Performed By: #### C ORPNL #### [facility] CLIA [id number] [address] [place] [address] [place] HbA1c (Bld) [Mass fraction] 5.0 % Normal 4.3-5.6 [facility] Comment on above: Order Comment: Joie xiao Type: BLOOD SPECIMEN Ordering Facility: [facility] Address: [address] [place] [address] Result Comment: [place] Diabetes Association guidelines indicate that patients with HgbA1c in the range 5.7-6.4% are at increased risk for development of diabetes, and intervention by lifestyle modification may be beneficial. HgbA1c greater or equal to 6.5% is considered diagnostic of diabetes. Performed By: #### C ORPNL #### [facility] CLIA [id number] [address] [facility] LIPID PANEL, NONFASTINGon Cholesterol [Mass/Vol] 165 mg/dL Normal <200 [place] Comment on above: Order Comment: Joie xiao Type: BLOOD SPECIMEN Ordering Facility: [facility] Address: [address] [place] [address] Result Comment: <200 mg/dL, Desirable 200-239 mg/dL, Borderline high >239 mg/dL, High Performed By: #### C ORPNL #### [facility] CLIA [id number] [address] STATES OF [facility] HDL CHOLESTEROL, NF 44 mg/dL Normal >39 [facility] Comment on above: Order Comment: Joie xiao Type: BLOOD SPECIMEN Ordering Facility: [facility] Address: [address] [place] [id number] Result Comment: 40-5 9 mg/dL, Acceptable >59 mg/dL, High: Negative risk factor for coronary heart disease <40 mg/dL, Low: Positive risk factor for coronary heart disease Performed By: #### C ORPNL #### [facility] CLIA [id number] [address] LDL CHOLESTEROL CALCULATED, NF 100 mg/dL High <100 [facility] Comment on above: Order Comment: Joie xiao Type: BLOOD SPECIMEN Ordering Facility: [facility] Address: [address] [id number] Result Comment: <100 mg/dL, Optimal 100-129 mg/dL, Near optimal/above optimal 130-159 mg/dL, Borderline high 160-189 mg/dL, High >189 mg/dL, Very high Secondary prevention optimal LDL Cholesterol levels are recommended to be <70 mg/dL LDL cholesterol is calculated using the Ortega-NIH equation. Performed By: #### C ORPNL #### [facility] CLIA [id number] [address] LDL/HDL RATIO, NF 2.27 mg/dL Normal <2.54 [facility] Comment on above: Order Comment: Joie xiao Type: BLOOD SPECIMEN Ordering Facility: [facility] Address: [address] [place] [address] Result Comment: Refe josece: 1. National Cholesterol Education Program ATP III Guideline At-A-Glance Quick Desk Reference: National Heart, Lung, and Blood [place]. National Institutes of Health. 2001: NIH Publication No. 01-3305. 2. An International Atherosclerosis Society position paper: global recommendations for the management of dyslipidemia: executive summary, Atherosclerosis. 2014: 232(2):410-413. Performed By: #### C ORPNL #### [facility] CLIA [id number] [address] NON HDL CHOL, NF 121 mg/dL Normal <130 [facility] Comment on above: Order Comment: Joie [facility] Type: BLOOD SPECIMEN Ordering Facility: [facility] Address: [address] [place] [address] Result Comment: <130 mg/dL, Optimal 130-159 mg/dL, Near optimal/above optimal 160-189 mg/dL, Borderline high 190-219 mg/dL, High >219 mg/dL, Very high Secondary prevention optimal non HDL Cholesterol levels are recommended to be <100 mg/dL Performed By: #### C ORPNL #### [facility] CLIA [id number] [address] T CHOL/HDL RATIO NF 3.75 mg/dL Normal <5.10 [facility] Comment on above: Order Comment: Joie dameon Type: BLOOD SPECIMEN Ordering Facility: [facility] Address: [address] [place] [address] Performed By: #### C ORPNL #### [facility] CLIA [id number] [address] TRIGLYCERIDES, NF 118 mg/dL Normal <150 [facility] Comment on above: Order Comment: Speci men Type: BLOOD SPECIMEN Ordering Facility: [facility] Address: [address] [place] [address] Result Comment: <150 mg/dL, Normal 150-199 mg/dL, Borderline high 200-499 mg/dL, High >499 mg/dL, Very high Performed By: #### C ORPNL #### [facility] CLIA [id number] [address] [facility] VLDL CHOLESTEROL, NF 19 mg/dL Normal <30 [facility] Comment on above: Order Comment: Speci men Type: BLOOD SPECIMEN Ordering Facility: [facility] Address: [address] [place] [address] Performed By: #### C ORPNL #### [facility] CLIA [id number] [address] NURSING PROGon 11-24-2024 NURSING PROG HNO ID: [id number] Author: MANJU TRAN RN Service: Nursing Author [...] called and patient taken to CT Scan. [facility] NURSING PROG HNO ID: [id number] Author: ANETTE CHENG, ASHISH Service: Nursing Author Type: Registered Nurse Type: Nursing Progress Note Filed: 11/24/2024 11:16 Note Text: Nursing Progress Note Topic of Note: Daily Note PATIENT NAME: Faustino Unger Patient Location: Room/bed info not found Room: ED-04 (ED-04) Handoff repot to PACU Phase 2 RN by this headline writer and FOOD SERVICE AGENT. Patient beginning to arouse as we left procedure room. Upon handoff patient more awake, talking appropriately to FOOD SERVICE AGENT, listening to handoff report. He assisted FOOD SERVICE AGENT with reapplication of pulse ox onto left hand and verbally stated, Oh, I'm sorry regarding his positioning. No abnormalities noted at this time. This note was completed by: Anette Cheng [facility] PT panel Coag (PPP)on 2024 INR Coag (PPP) [Relative time] 1.0 {INR} Normal 0.9-1.3 [facility] Comment on above: Order Comment: Speci men Type: BLOOD SPECIMEN Ordering Facility: [facility] Address: [address] [place] [address] Result Comment: Sameera min K Antagonist (VKA) Therapeutic Range: INR 2 to 3 (Target INR of 2.5) Note: For patients treated with VKA drugs, such as warfarin, the [place] College of Chest Physicians 2012 Guideline recommends [...] GH, et al. Chest 2012, 141:7S-47S Starr GARCIA et al. [facility] 2017, 70: 252-289 Performed By: #### 1 4979-9, 52669-2 #### [facility] CLIA [id number] [address] [place] [address] PT Coag (PPP) [Time] 11.3 s Normal 9.7-13.0 [facility] Comment on above: Order Comment: Joie xiao Type: BLOOD SPECIMEN Ordering Facility: [facility] Address: [address] [place] [address] Performed By: #### 1 4979-9, 81081-5 #### [facility] CLIA [id number] [address] Pathology biopsy report Lit (Tiss)on 11-24-2024 AP DISCLAIMER Normal [facility] Comment on above: Order Comment: Joie dameon Type: BLOOD SPECIMEN Ordering Facility: [facility] Address: [address] [place] [address] Result Comment: Anyi anand Developed Test (LDT) Disclaimer: Performance characteristics of immunohistochemical, immunofluorescent, and chromogenic in-situ hybridization tests have been determined by the performing laboratory within [facility]'s [facility] Pathology and Laboratory Medicine Department ([facility], [facility], [facility], [facility], [facility], [facility], or [facility]) in a manner consistent with CLIA requirements. One or more of these tests may not have been cleared or approved by the FDA. [facility] is regulated under CLIA as qualified to perform high-complexity testing. These tests are used for clinical purposes. These should not be regarded as investigational or for research. Positive and negative controls stain appropriately. Performed By: #### 1 4979-9, 04533-0 #### [facility] CLIA [id number] [address] CASE REPORT Normal [facility] Comment on above: Order Comment: Joie dameon Type: BLOOD SPECIMEN Ordering Facility: [facility] Address: [address] [place] [address] Result Comment: Surg ica Pathology Report Case: [id number] Authorizing Provider: Deborah Kendall MD Collected: 11/24/2024 09:51 AM Ordering Location: [facility] Endoscopy Received: 11/24/2024 11:34 AM Pathologist: Reyna Lopez MD Specimens: A) - Stomach, Antrum, Biopsy B) - Esophagogastric Junction, Biopsy Performed By: #### 1 4979-9, 36302-8 #### [facility] CLIA [id number] [address] FINAL DIAGNOSIS [facility] Comment on above: Order Comment: Bonii men Type: BLOOD SPECIMEN Ordering Facility: [facility] Address: [address] [place] [address] Result Comment: A. S tomach, antrum, biopsy: - Gastric antral type mucosa with no pathologic diagnostic abnormality. B. Esophagogastric junction, biopsy: - Gastric mucosa with no pathologic diagnostic abnormality; negative for squamous mucosa, intestinal metaplasia or dysplasia. at 1318 EDT Performed By: #### 1 4979-9, 22202-7 #### [facility] CLIA [id number] [address] FINAL PERFORMING LAB [facility] Comment on above: Order Comment: Speci [facility] Type: BLOOD SPECIMEN Ordering Facility: [facility] Address: [address] [place] [address] Result Comment: Diag nostic interpretation performed at: [facility], [address] [place] [address] CLIA# [id number] Sales Stock Associate: Reyna Lopez MD Performed By: #### 1 4979-9, 67472-0 #### [facility] CLIA [id number] [address] [facility] Comment on above: Order Comment: Speci men Type: BLOOD SPECIMEN Ordering Facility: [facility] Address: [address] [place] [address] Result Comment: A. S tomach, Antrum, Biopsy [...] 2024 4:17 PM Gross examination performed at [facility], [address] [place] [address] [place] [address] Performed By: #### 1 4979-9, 20394-5 #### [facility] CLIA [id number] [address] [place] [address] [place] STAPHYLOCOCCUS AUREUS AND MR SA SCREEN, PCR, NASALon 11-24-2024 S. aureus and MRSA panel JOSE+probe (Nose) Not detected Normal Not Detected [facility] Comment on above: Order Comment: Speci men Type: BLOOD SPECIMEN Ordering Facility: [facility] Address: [address] [id number] Performed By: #### C ORPNL #### [facility] CLIA [id number] [address] [place] Upper GI endoscopyon 025 Upper GI endoscopy [facility] Gastrointestinal Endoscopy Patient Name: Faustino Unger Procedure Date: 11/24/2024 9:01 AM Date of : 1990 Admit Type: Outpatient Age: 34 Room: [facility] Gender: Male Note Status: Finalized Attending MD: Deborah Kendall MD, [id number] Procedure: Upper GI endoscopy Indications: Epigastric abdominal pain Providers: Deborah Kendall MD Patient Profile: Refer to note in patient chart for documentation of history and physical. Referring Physician: Cathi Parks (Referring MD) Medicines: See the Anesthesia note for documentation of the administered medications Complications: No immediate complications. Requesting Provider: Procedure: Pre-Anesthesia Assessment: - Monitored anesthesia care under the supervision of a FOOD SERVICE AGENT was determined to be medically necessary for [...] pathology results Procedure Code(s): --- Professional --- 90803, Esophagogastroduodenoscop y, flexible, transoral; with biopsy, single or multiple Diagnosis Code(s): --- Professional --- K31.89, Other diseases of stomach and duodenum K22.89, Other specified disease of esophagus R10.13, Epigastric pain CPT copyright 2020 [place] [employer]. All rights reserved. The codes documented in this report are preliminary and upon industrial spray painter review may be revised to meet current compliance requirements. Attending Participation: I personally performed the entire procedure. Scope In: 9:41:40 AM Scope Out: 9:53:45 AM MD Deborah Walsh MD 11/24/2024 9:59:42 AM This report has been signed electronically by Deborah Kendall MD Number of Addenda: 0 Note Initiated On: 11/24/2024 9:01 AM Estimated Blood Loss: Estimated blood loss was minimal. Normal [facility] XR CHEST 1V FRONTAL PORTon 0 11-24-2024 [...] versus bronchopneumonia in the appropriate clinical setting. Bus Girl: PSCKenneth Transcribe Date/Time: Nov 24 2024 12:02P Dictated by : TIMOTHY BECKHAM MD This examination was interpreted and the report reviewed and electronically signed by: TIMOTHY BECKHAM MD on Nov 24 2024 12:03PM EST [id number] Normal [facility] aPTT PPPon 11-24-2024 aPTT Coag (PPP) [Time] 25.1 s Normal 23.0-32.4 [facility] Comment on above: Order Comment: Speci men Type: BLOOD SPECIMEN Ordering Facility: [facility] Address: [address] [place] [address] Performed By: #### 1 4979-9, 88156-5 #### [facility] CLIA [id number] [address] [place] [address] [place] Anion gap in Serum or Plasma Ordered By: Skye Lopez on 11-18-2024 Anion gap [Moles/Vol] 9 mmol/L 5-15 [facility] BUN/creatinine ratioOrdered By: Skye Lopez on 11-18-2024 Urea nitrogen/Creatinine [Mass ratio] 12.6 mg/mg 10- [facility] Bilirubin, totalOrdered By: Skye Lopez on 11-18-2024 Bilirubin [Mass/Vol] 0.24 mg/dL 0.00-1.30 [facility] Carbon dioxide, total [Moles /volume] in Central venous bloodOrdered By: Skye Lopez on 11-18-2024 CO2 [Moles/Vol] 26.6 mmol/L 21.0-32.0 [facility] Chloride assayOrdered By: Lashawn Lopez on 11-18-2024 Chloride [Moles/Vol] 103 mmol/L 98-108 [facility] Comprehensive Metabolic Prof ilon 11-18-2024 Albumin [Mass/Vol] 4.5 g/dL Normal 3.5-5.0 [facility] Comment on above: Performed By: #### L 500.4050, L100.0500, L501.9520, L501.5200 #### [facility] [address] [place], [address] Albumin/Globulin [Mass ratio] 1.7 {ratio} Normal 0.9-2.4 [facility] Comment on above: Performed By: #### L 500.4050, L100.0500, L501.9520, L501.5200 #### [facility] [address] [place], [address] ALK PHOS 93 U/L Normal 40-129 [facility] Comment on above: Performed By: #### L 500.4050, L100.0500, L501.9520, L501.5200 #### [facility] [address] [place], [address] ALT [Catalytic activity/Vol] 19 U/L Normal <=46 [facility] Comment on above: Performed By: #### L 500.4050, L100.0500, L501.9520, L501.5200 #### [facility] [address] [place], [address] AST [Catalytic activity/Vol] 20 U/L Normal <=37 [facility] Comment on above: Performed By: #### L 500.4050, L100.0500, L501.9520, L501.5200 #### [facility] [address] [place], [address] Bilirubin [Mass/Vol] 0.24 mg/dL Normal 0.00-1.30 [facility] Comment on above: Performed By: #### L 500.4050, L100.0500, L501.9520, L501.5200 #### [facility] [address] [place], [address] BUN/CRE 12.6 RATIO Normal 10-20 [facility] Comment on above: Performed By: #### L 500.4050, L100.0500, L501.9520, L501.5200 #### [facility] [address] [place], [address] Calcium [Mass/Vol] 9.6 mg/dL Normal 7.6-11.0 [facility] Comment on above: Performed By: #### L 500.4050, L100.0500, L501.9520, L501.5200 #### [facility] [address] [place], [address] Chloride [Moles/Vol] 103 mmol/L Normal 98-108 [facility] Comment on above: Performed By: #### L 500.4050, L100.0500, L501.9520, L501.5200 #### [facility] [address] [place], [address] CO2 [Moles/Vol] 26.6 mmol/L Normal 21.0-32.0 [facility] Comment on above: Performed By: #### L 500.4050, L100.0500, L501.9520, L501.5200 #### [facility] [address] [place], [address] Creatinine [Mass/Vol] 0.87 mg/dL Normal 0.70-1.20 [facility] Comment on above: Performed By: #### L 500.4050, L100.0500, L501.9520, L501.5200 #### [facility] [address] [place], [address] GAP 9 Normal 5-15 [facility] Comment on above: Performed By: #### L 500.4050, L100.0500, L501.9520, L501.5200 #### [facility] [address] [place], [address] GFR/1.73 sq M.predicted among non-blacks MDRD (S/P/Bld) [Vol rate/Area] 115 mL/min/{1.73_m2} Normal >60 [facility] Comment on above: Result Comment: mL/m in/1.73m2 CKD-EPI Creatinine Equation (2020) Performed By: #### L 500.4050, L100.0500, L501.9520, L501.5200 #### [facility] [address] [place], [address] Globulin (S) [Mass/Vol] 2.6 g/dL Normal 2.2-4.2 [facility] Comment on above: Performed By: #### L 500.4050, L100.0500, L501.9520, L501.5200 #### [facility] [address] [place], [address] Glucose [Mass/Vol] 83 mg/dL Normal 70-99 [facility] Comment on above: Performed By: #### L 500.4050, L100.0500, L501.9520, L501.5200 #### [facility] [address] [place], [address] Potassium [Moles/Vol] 4.4 mmol/L Normal 3.3-5.1 [facility] Comment on above: Performed By: #### L 500.4050, L100.0500, L501.9520, L501.5200 #### [facility] [address] [place], [address] Sodium [Moles/Vol] 138 mmol/L Normal 133-145 [facility] Comment on above: Performed By: #### L 500.4050, L100.0500, L501.9520, L501.5200 #### [facility] [address] [place], [address] T PROT 7.0 g/dL Normal 5.9-8.4 [facility] Comment on above: Performed By: #### L 500.4050, L100.0500, L501.9520, L501.5200 #### [facility] [address] [place], [address] Urea nitrogen [Mass/Vol] 11 mg/dL Normal 4-19 [facility] Comment on above: Performed By: #### L 500.4050, L100.0500, L501.9520, L501.5200 #### [facility] [address] [place], [address] Glomerular filtration rate ( GFR) estimation/1.73 sq m using serum, plasma, or whole bOrdered By: Skye Lopez on 11-18-2024 GFR/1.73 sq M.predicted among non-blacks MDRD (S/P/Bld) [Vol rate/Area] 115 mL/min/{1.73_m2} >60 [facility] Comment on above: mL/min/1.73m2 CKD-EP I Creatinine Equation (2020) Laboratory - Chemistry and C hemistry - challengeOrdered By: Skye Lopez on 11-18-2024 AST [Catalytic activity/Vol] 20 U/L <38 [facility] Potassium measurement (mass/ volume)Ordered By: Skye Lopez on 11-18-2024 Potassium (Unsp spec) [Mass/Vol] 4.4 mmol/L 3.3-5.1 [facility] Serum creatinine measurement (mass/volume)Ordered By: Skye Lopez on 11-18-2024 Creatinine [Mass/Vol] 0.87 mg/dL 0.70-1.20 [facility] Serum globulin measurementOr dered By: Skye Lopez on 11-18-2024 Globulin (S) [Mass/Vol] 2.6 g/dL 2.2-4.2 [facility] Serum glucose measurement (m ass/volume)Ordered By: Skye Lopez on 11-18-2024 Glucose [Mass/Vol] 83 mg/dL 70-99 [facility] Serum or plasma alanine fletcher otransferase (ALT) measurementOrdered By: Skye Lopez on 11-18-2024 ALT [Catalytic activity/Vol] 19 U/L <47 [facility] Serum or plasma albumin jazlyn urement (mass/volume)Ordered By: Skye Lopez on 11-18-2024 Albumin [Mass/Vol] 4.5 g/dL 3.5-5.0 [facility] Serum or plasma albumin/glob ulin mass ratioOrdered By: Skye Lopez on 11-18-2024 Albumin/Globulin [Mass ratio] 1.7 {ratio} 0.9-2.4 [facility] Serum or plasma alkaline sandy sphatase measurementOrdered By: Skye Lopez on 11-18-2024 ALP [Catalytic activity/Vol] 93 U/L 40-129 [facility] Serum or plasma calcium jazlyn urement (mass/volume)Ordered By: Skye Lopez on 11-18-2024 Calcium [Mass/Vol] 9.6 mg/dL 7.6-11.0 [facility] Serum or plasma urea nitroge n measurement (mass/volume)Ordered By: Skye Lopez on 11-18-2024 Urea nitrogen [Mass/Vol] 11 mg/dL 4-19 [facility] Sodium levelOrdered By: Viv Lopez on 11-18-2024 Sodium [Moles/Vol] 138 mmol/L 133-145 [facility] Total proteinOrdered By: Sandra Lopez on 11-18-2024 Protein [Mass/Vol] 7.0 g/dL 5.9-8.4 [facility] CNPNon 11-15-2024 MOR Telephone ([facility]) ----- FAUSTINO UNGER ([id number]) 1990 M Date Time Provider Department 11/15/24 CATHI PARKS During your visit today, we recorded the following information about you: Mitchell Landaverde 11/15/2024 8:32 AM Signed 11-24-2024 EGD Colonoscopy Allergies As of Date: 11/15/2024 Noted Allergy Reaction ANTIHISTIMINE 06/19/2015 1 - Mental Status Change METOCLOPRAMIDE 01/28/2019 1 - Mental Status Change MOBIC (MELOXICAM) 08/31/2023 10 - Anaphylaxis PROCHLORPERAZINE 01/28/2019 1 - Mental Status Change SHELLFISH DERIVED 03/21/2022 6 - Diarrhea Date Reviewed: 11/09/2024 Reviewed by: Cathi Parks APRN.COMMUNITY REINVESTMENT ACT OFFICER - Fully Assessed Reason for Visit: 11-24-2024 EGD Colonoscopy [Other] Prescriptions as of 01/20/2025 - propranolol (INDERAL) 20 mg tablet Take [...] as needed. Problem List As Of Date 11/15/2024 Noted Resolved Kidney stone [N20.0] 07/05/2015 Renal cyst [N28.1] 07/05/2015 Penile pain [N48.89] 12/04/2015 Dysphagia [R13.10] 07/02/2024 Encounter for screening for malignant neoplasm *07/02/2024 Heartburn [R12] 07/02/2024 History of colonic polyps [Z86.0100] 07/02/2024 Encounter Status:Closed by MITCHELL LANDAVERDE on 01/20/25 [facility] CNOVon 11-09-2024 CNOV Office Visit (GENSWS ) ----- FAUSTINO UNGER ([id number]) 1990 Date Time Provider Department 11/09/24 11:00 AM CATHI PARKS During your visit today, we recorded the following information about you: Pulse Respiration Blood pressure Weight 88/minute 16/minute 125/87 75.3 kg Cathi Parks APRN.COMMUNITY REINVESTMENT ACT OFFICER 11/09/2024 1:59 PM Signed HISTORY AND PHYSICAL Faustino Sherrie Cornel : 1990 REFERRING PHYSICIAN: No referring provider [...] colonoscopy was 07/02/[address] Dangelo at [facility]. Sedation: MAC EGD Impression: - Normal esophagus. [...] peg 33 (more content not included)... Normal [facility] CNOVon 10-29-2024 CNOV Office Visit (ENWSTR ) ----- FAUSTINO UNGER ([id number]) 1990 M Date Time Provider Department 10/29/24 11:40 AM TALI CABALLEROWSTR During your visit today, we recorded the following information about you: Temperature Pulse Blood pressure Weight 97.5 degrees 90/minute 140/90 77.5 kg Tali Caballero MD 10/30/2024 8:57 PM Addendum Endocrinology and Metabolism [place] Follow up note Chief Complaint: Low BMD [...] since 10/2022. Follows up with ID in [facility] He is on omeprazole 20 mg daily [...] intestine, surgery done at that time in [place]. He is going for colonoscopy next month [...] normal Lymphati (more content not included)... Normal [facility] CALCIUM, 24 HR URINEon 10-15 Calcium (24H U) [Mass/Time] 59.1 mg/24 hr Low 100.0-300.0 [facility] Comment on above: Order Comment: Speci men Type: URINE SPECIMENOrdering Facility: [facility] Address: [address] [place] [address] Performed By: #### U CALCD ####[facility] LABCLIA [id number] [address] OF [facility] [id number] [address] CREATINE 24 HR URon 10-16-19 CREATINE, UR PER 24 HR (UCRT24) 171 mg/24h Normal [facility] Comment on above: Order Comment: Speci men Type: URINE SPECIMENOrdering Facility: [facility] Address: [address] [place] [address] Result Comment: INTE RPRETIVE INFORMATION: Creatine Urine For random or timed specimens other than 24 hrs, the result represents the total milligrams of creatine excreted during the collection period. Reference ranges for creatine have been established for random urine collections, in mmol/mol creatinine. Access complete set of age- and/or gender-specific reference intervals for this test in the [employer] Laboratory Test Directory ([employer]). Performed By: [facility] [address] [place] [address] Sales Stock Associate: Gael Louis MD, PhD CLIA Number: [id number] Performed By: #### U CRT24 ####[facility] [id number] [place] [address] CREATINE, URINE 99 mmol/mol SAFETY SPEC Normal 10-370 [facility] Comment on above: Order Comment: Speci men Type: URINE SPECIMENOrdering Facility: [facility] Address: [address] [place] [address] Result Comment: This test was developed and its performance characteristics determined by [employer]. It has not been cleared or approved by the [place] Food and Drug Administration. This test was performed in a CLIA certified laboratory and is intended for clinical purposes. Performed By: #### U CRT24 ####[facility]IES[facility]IA [id number] [place] [address] CREATININE, UR (UCRT24) 9594.4 umol/L Normal [facility] Comment on above: Order Comment: Speci men Type: URINE SPECIMENOrdering Facility: [facility] Address: [address] [place] [address] Performed By: #### U CRT24 ####[facility]IESCLIA [id number] [place] [address] HOURS COLLECTED 24 hr Normal [facility] Comment on above: Order Comment: Speci men Type: URINE SPECIMENOrdering Facility: [facility] Address: [address] [place] [address] Performed By: #### U CRT24 ####[facility]CL[facility] [id number] [place] [address] TOTAL VOLUME 1375 mL Normal [facility] Comment on above: Order Comment: Speci men Type: URINE SPECIMENOrdering Facility: [facility] Address: [address] [place] [address] Performed By: #### U CRT24 ####[facility]IESCLIA [id number] [place] [address] Sodium 24h Ur-sRateon 2024 PERIOD (HRS) 24 hr Normal [facility] Comment on above: Order Comment: Speci men Type: URINE SPECIMENOrdering Facility: [facility] Address: [address] [place] [address] Performed By: #### 2 956-1 ####[facility] LABCLIA [id number] [address] [id number] [address] OF [facility] Performed By: #### U CALCD ####[facility] LABCLIA [id number] [address] [facility] CITY[facility] [id number] [place] [address] [place] Sodium (24H U) [Moles/Time] 235 mmol/24 hr High 40-220 [facility] Comment on above: Order Comment: Speci men Type: URINE SPECIMENOrdering Facility: [facility] Address: [address] [place], [place] [address] Performed By: #### 2 956-1 ####[facility] LABCLIA [id number] [id number] [place] [address] Specimen volume (24H U) 1.375 L Normal [facility] Comment on above: Order Comment: Speci men Type: URINE SPECIMENOrdering Facility: [facility] Address: [address] [place], [place] [address] Performed By: #### 2 956-1 ####[facility] LABCLIA [id number] [place] [id number] [facility] [id number] [place] [address] [place] Performed By: #### U CALCD ####[facility] LABCLIA [id number] [place] [id number] [place] [facility] [id number] [place] [address] [place] 25(OH)D3 [facility] 2024 25-hydroxyvitamin D3 [Mass/Vol] 31.1 ng/mL Normal 31.0-80.0 [facility] Comment on above: Order Comment: Speci men Type: BLOOD SPECIMENOrdering Facility: [facility] Address: [address] [place] [address] Result Comment: Clas sification of 25 [place] Vitamin D status: Deficiency/Insufficiency: < or = 30 ng/ml. Sufficiency/Optimal Levels: 31-80 ng/mL Toxicity: > 100 ng/mL. Test performed by chemiluminescent immunoassay. Performed By: #### 1 989-3 ####[facility] LABCLIA [id number] [place] [address] [place] ALK PHOS BONE SPECon 025 ALK PHOSPHATASE, BONE 13.4 ug/L Normal 6.5-20.1 [facility] Comment on above: Order Comment: Speci men Type: BLOOD SPECIMENOrdering Facility: [facility] Address: [address] [place] [address] Result Comment: INTE RPRETIVE INFORMATION: Bone Specific Alkaline Phosphatase Liver alkaline phosphatase can affect the measurement of bone specific alkaline phosphatase in this assay. Each 100 U/L of liver alkaline phosphatase contributes an additional 2.5 to 5.8 ug/L to the bone specific alkaline phosphatase result. Performed By: [facility] [address] [place] [address] Sales [employer] Associate: Gael Louis MD, PhD CLIA Number: [id number] Performed By: #### A PBONE ####[facility] HOSPITALIA [id number] [place] [address] Albumin SerPl-mCncon 025 Albumin [Mass/Vol] 4.1 g/dL Normal 3.9-4.9 [facility] Comment on above: Order Comment: Speci men Type: BLOOD SPECIMENOrdering Facility: [facility] Address: [address] [place] [address] Performed By: #### 1 751-7, 89683-6 ####[facility] [id number] [place] [address] [place] Calcium SerPl-mCncon 025 Calcium [Mass/Vol] 9.3 mg/dL Normal 8.5-10.2 [facility] Comment on above: Order Comment: Speci men Type: BLOOD SPECIMENOrdering Facility: [facility] Address: [address] [place] [address] Performed By: #### 1 751-7, 28896-8 ####[facility] [id number] [place] [address] [place] Calcium.ionized [Moles/Vol]o n 10-12-2024 Calcium.ionized (Bld) [Mass/Vol] 1.26 mmol/L Normal 1.08-1.30 [facility] Comment on above: Order Comment: Speci men Type: BLOOD SPECIMENOrdering Facility: [facility] Address: [address] [place] [address] Performed By: #### 1 995-0 ####[facility] LABIA [id number] [place] [address] [place] Calcium.ionized adjusted to pH 7.4 (Bld) [Moles/Vol] 1.25 mmol/L Normal 1.08-1.30 [facility] Comment on above: Order Comment: Speci men Type: BLOOD SPECIMENOrdering Facility: [facility] Address: [address] [place] [address] Performed By: #### 1 995-0 ####[facility] LABIA [id number] [place] [address] [place] Collagen crosslinked C-telop eptide [Mass/Vol]on 10-12-2024 C TELOPEPTIDE, BETA CROSS LINKED 343 pg/mL Normal 225-936 [facility] Comment on above: Order Comment: Speci men Type: BLOOD SPECIMENOrdering Facility: [facility] Address: [address] [place] [address] Performed By: #### 4 1171-0 ####[facility] LABCLIA [id number] [address] [place] [address] [place] FSH SerPl-aCncon 10-12-2024 Follitropin Qn 2.8 m[IU]/mL Normal 1.5-12.4 [facility] Comment on above: Order Comment: Speci men Type: BLOOD SPECIMENOrdering Facility: [facility] Address: [address] [place] [address] Performed By: #### 2 731-8, 41538-8, 40760-6 ####[facility] LABIA [id number] [place] [id number] [place] LH SerPl-aCncon 10-12-2024 Lutropin Qn 7.1 m[IU]/mL Normal 1.8-10.8 [facility] Comment on above: Order Comment: Speci men Type: BLOOD SPECIMENOrdering Facility: [facility] Address: [address] [place] [address] Performed By: #### 2 731-8, 98234-0, 57601-7 ####[facility] LABIA [id number] [place] [address] [place] PTH-Intact SerPl-mCncon 09-19 Parathyrin.intact [Mass/Vol] 30 pg/mL Normal 15-65 [facility] Comment on above: Order Comment: Speci men Type: BLOOD SPECIMENOrdering Facility: [facility] Address: [address] [place] [address] Performed By: #### 2 731-8, 36494-5, 87482-7 ####[facility] LABIA [id number] [place] [id number] [place] Prolactin SerPl-mCncon 10-12 Prolactin [Mass/Vol] 14.5 ng/mL Normal 4.1-25.1 [facility] Comment on above: Order Comment: Speci men Type: BLOOD SPECIMENOrdering Facility: [facility] Address: [address] [place], [place] [address] Result Comment: Prol actin test is performed using the [employer] Electrochemiluminescence Immunoassay method. Results obtained with different methods or kits cannot be used interchangeably. Performed By: #### 3 024-7, 3016-3, 23241-5, 2842-3 ####[facility] LABCLIA [id number] [place] [address] [place] SHBG SerPl-sCncon 10-12-2024 Sex hormone binding globulin [Moles/Vol] 50 nmol/L Normal 14-82 [facility] Comment on above: Order Comment: Speci men Type: BLOOD SPECIMENOrdering Facility: [facility] Address: [address] [place] [address] Performed By: #### 3 024-7, 3016-3, 46423-8, 2842-3 ####[facility] LABCLIA [id number] [place] [address] [place] T4 Free SerPl-mCncon 025 Free T4 [Mass/Vol] 0.9 ng/dL Normal 0.9-1.7 [facility] Comment on above: Order Comment: Speci men Type: BLOOD SPECIMENOrdering Facility: [facility] Address: [address] [place] [address] Performed By: #### 3 024-7, 3016-3, 89758-1, 2842-3 ####[facility] LABIA [id number] [place] [address] [place] TESTOSTERONE, FREE AND TOTAL , BY EQUILIBRIUM ULTRAFILTRATION MASS SPECTROMETRYon 10-12-2024 Testosterone [Mass/Vol] 760.4 ng/dL Normal 264.0-916.0 [facility] Comment on above: Order Comment: Speci men Type: BLOOD SPECIMENOrdering Facility: [facility] Address: [address] [place] [address] Result Comment: This [facility] LC/MS-MS method is currently certified by the CDC Hormone Standardization Program (HoSt). Adult male reference interval is based on a population of healthy nonobese males (BMI <30) between 19 and 39 years old. mark Medrano.al. JCEM 2017,102;1171-1159. PMID: [id number]. Performed By: #### T FTEST ####[facility] LABCLIA [id number] [place] [address] Testosterone Free [Mass/Vol] 23.57 ng/dL High 5.00-21.00 [facility] Comment on above: Order Comment: Speci men Type: BLOOD SPECIMENOrdering Facility: [facility] Address: [address] [place] [address] Performed By: #### T FTEST ####[facility] LABCLIA [id number] [place] [address] Testosterone Free/Testosterone.tota l [Mass fraction] 3.10 % Normal 1.50-4.20 [facility] Comment on above: Order Comment: Speci men Type: BLOOD SPECIMENOrdering Facility: [facility] Address: [address] [place] [address] Performed By: #### T FTEST ####[facility] LABCLIA [id number] [place] [address] TSH SerPl-aCncon 10-12-2024 TSH Qn 2.650 m[IU]/L Normal 0.270-4.200 [facility] Comment on above: Order Comment: Speci men Type: BLOOD SPECIMENOrdering Facility: [facility] Address: [address] [place] [address] Performed By: #### 3 024-7, 3016-3, 74694-2, 2842-3 ####[facility] LABCLIA [id number] [place] [id number] [place] Cardiology Visit Reporton Cardiology Visit Report [facility] [address] [place], [place] [address] OFFICE VISIT Date of Service: 09/13/24 MR#: [id number] Acct: [id number] Name: FAUSTINO UNGER Rep #: [id number] : 1990 Provider: Dr. Rebekah Palomares MD Age/Sex: 34/M [facility] Status: Signed HPI HPI History of Present Illness Details: This gentleman with history of HIV, hypertension, anxiety disorder and renal cysts is here for a follow-up visit. He continues to have occasional chest discomfort which is not related to exertion. Calcium scoring was performed at [facility]. It is reported as showing calcium score of 0. Occasional lightheadedness. No syncope or presyncope. 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 Normal [facility] CT CARDIAC SCORING WO IV CON TRASTon 09-08-2024 CT CARDIAC SCORING WO IV CONTRAST Interpreted By: Rocco Eid, STUDY: CT CARDIAC SCORING WO IV CONTRAST; 09/08/2024 8:28 am INDICATION: Signs/Symptoms:chest pain, shortness of breath. COMPARISON: None. ACCESSION NUMBER(S): [id number] ORDERING CLINICIAN: INTERFACE UNSPECIFIELDPROVIDER TECHNIQUE: Using prospective [...] coronary heart disease events. According to the [place] [employer] Clinical Expert Consensus [...] modify other non-lipid coronary risk factors. Reference: [place] P et al. Circulation. 2007; 115:402-426 MACRO: None Signed by: Rocco Eid 09/09/2024 5:41 PM Dictation workstation: [id number] [facility] HIV Viral Load Quanton 08-28 HIV-1 RNA, PCR < 20 Normal . [facility] Comment on above: Result Comment: HIV- 1 RNA not detected The reportable range for this assay is 20 to 10,000,000 copies HIV-1 RNA/mL. Performed By: #### L 500.4050, L100.0500, L501.9520, L501.5200 #### [facility] [address] [place], [address] log10 HIV-1 RNA TNP Normal . [facility] Comment on above: Result Comment: Resu lt Units: ntq82hbti/mL Unable to calculate result since non-numeric result obtained for component test. Performed at: 01 [address] [id number] Research And Evaluation Manager: Weston Rodrigez MD, Phone: [phone] Performed By: #### L 500.4050, L100.0500, L501.9520, L501.5200 #### [facility] [address] [place], [address] CD4, T Lymph Wilton Counton 08-27-2024 % CD4 POS.LYMPH 28.7 Low 30.8-58.5 [facility] Comment on above: Performed By: #### L 500.4050, L100.0500, L501.9520, L501.5200 #### [facility] [address] [place], [address] ABSOLUTE CD4 660 /uL Normal 359-1519 [facility] Comment on above: Performed By: #### L 500.4050, L100.0500, L501.9520, L501.5200 #### [facility] [address] [place], [address] Basophils 1 Normal Not Estab. [facility] Comment on above: Performed By: #### L 500.4050, L100.0500, L501.9520, L501.5200 #### [facility] [address] [place], [address] Basos Absolute 0.1 x10E3/uL Normal 0.0-0.2 [facility] Comment on above: Performed By: #### L 500.4050, L100.0500, L501.9520, L501.5200 #### [facility] [address] [place], [address] Eos Absolute 0.5 x10E3/uL High 0.0-0.4 [facility] Comment on above: Performed By: #### L 500.4050, L100.0500, L501.9520, L501.5200 #### [facility] [address] [place], [address] Eosinophils 4 Normal Not Estab. [facility] Comment on above: Performed By: #### L 500.4050, L100.0500, L501.9520, L501.5200 #### [facility] [address] [place], [address] Erythrocyte distribution width (RBC) [Ratio] 12.6 % Normal 11.6-15.4 [facility] Comment on above: Performed By: #### L 500.4050, L100.0500, L501.9520, L501.5200 #### [facility] [address] [place], [address] Hematocrit (Bld) [Volume fraction] 40.0 % Normal 37.5-51.0 [facility] Comment on above: Performed By: #### L 500.4050, L100.0500, L501.9520, L501.5200 #### [facility] [address] [place], [address] Heme Comment TNP Normal . [facility] Comment on above: Performed By: #### L 500.4050, L100.0500, L501.9520, L501.5200 #### [facility] [address] [place], [address] Hemoglobin (Bld) [Mass/Vol] 12.9 g/dL Low 13.0-17.7 [facility] Comment on above: Performed By: #### L 500.4050, L100.0500, L501.9520, L501.5200 #### [facility] [address] [place], [address] Imm Grans Abs 0 x10E3/uL Normal 0.0-0.1 [facility] Comment on above: Result Comment: Perf ormed at: - [facility] [id number] Research And Evaluation Manager: Raimundo Corbin PhD, Phone: [phone] Performed By: #### L 500.4050, L100.0500, L501.9520, L501.5200 #### [facility] [address] [place], [address] Immature Cells TNP Normal . [facility] Comment on above: Performed By: #### L 500.4050, L100.0500, L501.9520, L501.5200 #### [facility] [address] [place], [address] Immature Grans 0 Normal Not Estab. [facility] Comment on above: Performed By: #### L 500.4050, L100.0500, L501.9520, L501.5200 #### [facility] [address] [place], [address] Lymphocytes 19 Normal Not Estab. [facility] Comment on above: Performed By: #### L 500.4050, L100.0500, L501.9520, L501.5200 #### [facility] [address] [place], [address] Lymphocytes (Bld) [#/Vol] 2.3 10*3/uL Normal 0.7-3.1 [facility] Comment on above: Performed By: #### L 500.4050, L100.0500, L501.9520, L501.5200 #### [facility] [address] [place], [address] MCH (RBC) [Entitic mass] 31.8 pg Normal 26.6-33.0 [facility] Comment on above: Performed By: #### L 500.4050, L100.0500, L501.9520, L501.5200 #### [facility] [address] [place], [address] MCHC (RBC) [Mass/Vol] 32.3 g/dL Normal 31.5-35.7 [facility] Comment on above: Performed By: #### L 500.4050, L100.0500, L501.9520, L501.5200 #### [facility] [address] [place], [address] MCV (RBC) [Entitic vol] 99 fL High 79-97 [facility] Comment on above: Performed By: #### L 500.4050, L100.0500, L501.9520, L501.5200 #### [facility] [address] [place], [address] Monocytes 10 Normal Not Estab. [facility] Comment on above: Performed By: #### L 500.4050, L100.0500, L501.9520, L501.5200 #### [facility] [address] [place], [address] Monos Absolute 1.2 x10E3/uL High 0.1-0.9 [facility] Comment on above: Performed By: #### L 500.4050, L100.0500, L501.9520, L501.5200 #### [facility] [address] [place], [address] Neutro Absolute 7.7 x10E3/uL High 1.4-7.0 [facility] Comment on above: Performed By: #### L 500.4050, L100.0500, L501.9520, L501.5200 #### [facility] [address] [place], [address] Neutrophils 66 Normal Not Estab. [facility] Comment on above: Performed By: #### L 500.4050, L100.0500, L501.9520, L501.5200 #### [facility] [address] [place], [address] NRBC Count TNP Normal . [facility] Comment on above: Performed By: #### L 500.4050, L100.0500, L501.9520, L501.5200 #### [facility] [address] [place], [address] Platelets (Bld) [#/Vol] 310 10*3/uL Normal 150-450 [facility] Comment on above: Performed By: #### L 500.4050, L100.0500, L501.9520, L501.5200 #### [facility] [address] [place], [address] RBC (Bld) [#/Vol] 4.06 10*6/uL Low 4.14-5.80 [facility] Comment on above: Performed By: #### L 500.4050, L100.0500, L501.9520, L501.5200 #### [facility] [address] [place], [address] WBC (Bld) [#/Vol] 11.8 10*3/uL High 3.4-10.8 [facility] Comment on above: Performed By: #### L 500.4050, L100.0500, L501.9520, L501.5200 #### [facility] [address] [place], [address] Absolute CD4 countOrdered By : Yang Del Rio on 08-25-2024 CD3+CD4+ (T4 helper) cells (Bld) [#/Vol] 660 /uL 359-1519 [facility] Absolute immature granulocyt e countOrdered By: Yang Del Rio on 08-25-2024 Immature granulocytes (Bld) [#/Vol] 0 10*3/uL 0.0-0.1 [facility] Comment on above: Performed at: [address] [id number] Director: Raimundo Corbin PhD, Phone: [phone] Absolute lymphocyte countOrd ered By: Yang Del Rio on 08-25-2024 Lymphocytes Auto (Unsp spec) [#/Vol] 2.3 10*3/uL 0.7-3.1 [facility] Absolute monocyte countOrder ed By: Yang Del Rio on 08-25-2024 Monocytes (Bld) [#/Vol] 1.2 10*3/uL High 0.1-0.9 [facility] Absolute neutrophil countOrd ered By: Yang Del Rio on 08-25-2024 Neutrophils (Bld) [#/Vol] 7.7 10*3/uL High 1.4-7.0 [facility] Albumin to globulin ratioOrd ered By: Yang Del Rio on 08-25-2024 Albumin/Globulin [Mass ratio] 1.0 {ratio} 0.9-2.4 [facility] Basophils/100 WBC Auto (Bld) Ordered By: Yang Del Rio on 08-25-2024 Basophils/100 WBC (Bld) 1 % Not Estab. [facility] Bilirubin, totalOrdered By: Yang Del Rio on 08-25-2024 Bilirubin [Mass/Vol] 0.40 mg/dL 0.20-1.00 [facility] Comment on above: For patients on eltr ombopag therapy, use of Dimension Giltner TBIL is not recommended. Blood basophils count (numbe r/volume)Ordered By: Yang Del Rio on 08-25-2024 Basophils (Bld) [#/Vol] 0.1 10*3/uL 0.0-0.2 [facility] Blood eosinophils count (num minerva/volume)Ordered By: Yang Del Rio on 08-25-2024 Eosinophils (Bld) [#/Vol] 0.5 10*3/uL High 0.0-0.4 [facility] Blood hematocrit (volume fra ction)Ordered By: Yang Del Rio on 08-25-2024 Hematocrit (Bld) [Volume fraction] 40.0 % 37.5-51.0 [facility] Blood immature cells/100 julia kocytesOrdered By: Yang Del Rio on 08-25-2024 Immature cells/100 WBC (Bld) TNP [facility] Comment on above: Test not performed Blood immature granulocytes/ 100 leukocytesOrdered By: Yang Del Rio on 08-25-2024 Immature granulocytes/100 WBC (Bld) 0 % Not Estab. [facility] Blood platelets count (numbe r/volume)Ordered By: Yang Del Rio on 08-25-2024 Platelets (Bld) [#/Vol] 310 10*3/uL 150-450 [facility] Blood urea nitrogen (BUN)/cr eatinine ratioOrdered By: Yang Del Rio on 08-25-2024 Urea nitrogen/Creatinine [Mass ratio] 11.6 mg/mg 10-20 [facility] CBC-Complete Blood Cnt No Di ffon 08-25-2024 Hematocrit (Bld) [Volume fraction] 40.2 % Normal 40-54 [facility] Comment on above: Performed By: #### L 500.4050, L100.0500, L501.9520, L501.5200 #### [facility] [address] [place], [address] Hemoglobin (Bld) [Mass/Vol] 13.4 g/dL Normal 13.0-16.5 [facility] Comment on above: Performed By: #### L 500.4050, L100.0500, L501.9520, L501.5200 #### [facility] [address] [place], [address] MCH (RBC) [Entitic mass] 32.2 pg High 27.0-32.0 [facility] Comment on above: Performed By: #### L 500.4050, L100.0500, L501.9520, L501.5200 #### [facility] [address] [place], [address] MCHC (RBC) [Mass/Vol] 33.3 g/dL Normal 32-36 [facility] Comment on above: Performed By: #### L 500.4050, L100.0500, L501.9520, L501.5200 #### [facility] [address] [place], [address] MCV (RBC) [Entitic vol] 96.6 fL High 80-94 [facility] Comment on above: Performed By: #### L 500.4050, L100.0500, L501.9520, L501.5200 #### [facility] [address] [place], [address] Platelets (Bld) [#/Vol] 320 10*3/uL Normal 150-450 [facility] Comment on above: Performed By: #### L 500.4050, L100.0500, L501.9520, L501.5200 #### [facility] [address] [place], [address] RBC (Bld) [#/Vol] 4.16 10*6/uL Low 4.6-6.2 [facility] Comment on above: Performed By: #### L 500.4050, L100.0500, L501.9520, L501.5200 #### [facility] [address] [place], [address] RDW SD 46.8 fl High 35.1-43.9 [facility] Comment on above: Performed By: #### L 500.4050, L100.0500, L501.9520, L501.5200 #### [facility] [address] [place], [address] WBC (Bld) [#/Vol] 12.0 10*3/uL High 4.4-11.0 [facility] Comment on above: Performed By: #### L 500.4050, L100.0500, L501.9520, L501.5200 #### [facility] [address] [place], [address] CD3+CD4+ (T4 helper) cells ( Bld) [#/Vol]Ordered By: Yang Del Rio on 08-25-2024 Absolute CD4 Count 660 /uL 359-1519 [facility] CD3+CD4+ (T4 helper) cells/1 00 cells (Unsp spec)Ordered By: Yang Del Rio on 08-25-2024 Percent CD4 Cells 28.7 % Low 30.8-58.5 [facility] Carbon dioxide measurementOr dered By: Yang Del Rio on 08-25-2024 CO2 [Moles/Vol] 30.0 mmol/L 21.0-32.0 [facility] Chloride measurementOrdered By: Yang Del Rio on 08-25-2024 Chloride [Moles/Vol] 105 mmol/L 98-107 [facility] Comprehensive Metabolic Prof ilon 08-25-2024 Albumin [Mass/Vol] 3.5 g/dL Normal 3.2-5.0 [facility] Comment on above: Performed By: #### L 500.4050, L100.0500, L501.9520, L501.5200 #### [facility] [address] [place], [address] Albumin/Globulin [Mass ratio] 1.0 {ratio} Normal 0.9-2.4 [facility] Comment on above: Performed By: #### L 500.4050, L100.0500, L501.9520, L501.5200 #### [facility] [address] [place], [address] ALK P 103 U/L Normal 45-117 [facility] Comment on above: Performed By: #### L 500.4050, L100.0500, L501.9520, L501.5200 #### [facility] [address] [place], [address] ALT [Catalytic activity/Vol] 24 U/L Normal 16-61 [facility] Comment on above: Performed By: #### L 500.4050, L100.0500, L501.9520, L501.5200 #### [facility] [address] [place], [address] AST [Catalytic activity/Vol] 15 U/L Normal 15-37 [facility] Comment on above: Performed By: #### L 500.4050, L100.0500, L501.9520, L501.5200 #### [facility] [address] [place], [address] Bilirubin [Mass/Vol] 0.40 mg/dL Normal 0.20-1.00 [facility] Comment on above: Result Comment: For patients on eltrombopag therapy, use of Dimension Giltner TBIL is not recommended. Performed By: #### L 500.4050, L100.0500, L501.9520, L501.5200 #### [facility] [address] [place], [address] BUN/CRE 11.6 RATIO Normal 10-20 [facility] Comment on above: Performed By: #### L 500.4050, L100.0500, L501.9520, L501.5200 #### [facility] [address] [place], [address] CA,Total 9.3 mg/dL Normal 8.5-10.1 [facility] Comment on above: Performed By: #### L 500.4050, L100.0500, L501.9520, L501.5200 #### [facility] [address] [place], [address] Chloride [Moles/Vol] 105 mmol/L Normal 98-107 [facility] Comment on above: Performed By: #### L 500.4050, L100.0500, L501.9520, L501.5200 #### [facility] [address] [place], [address] CO2 [Moles/Vol] 30.0 mmol/L Normal 21.0-32.0 [facility] Comment on above: Performed By: #### L 500.4050, L100.0500, L501.9520, L501.5200 #### [facility] [address] [place], [address] Creatinine [Mass/Vol] 0.95 mg/dL Normal 0.70-1.30 [facility] Comment on above: Result Comment: The validity of the calculated GFR GFRAA in patients over 70 years has not been determined. Clinical correlation is essential. Performed By: #### L 500.4050, L100.0500, L501.9520, L501.5200 #### [facility] [address] [place], [address] EST GFR - AA 116 mL/min Normal >60 [facility] Comment on above: Result Comment: Afri can Bruneian GFR Calc Performed By: #### L 500.4050, L100.0500, L501.9520, L501.5200 #### [facility] [address] [place], [address] GAP 5 Normal 5-15 [facility] Comment on above: Performed By: #### L 500.4050, L100.0500, L501.9520, L501.5200 #### [facility] [address] [place], [address] GFR/1.73 sq M.predicted among non-blacks MDRD (S/P/Bld) [Vol rate/Area] 96 mL/min/{1.73_m2} Normal >60 [facility] Comment on above: Result Comment: Non- GFR Calc Performed By: #### L 500.4050, L100.0500, L501.9520, L501.5200 #### [facility] [address] [place], [address] Globulin (S) [Mass/Vol] 3.6 g/dL Normal 2.2-4.2 [facility] Comment on above: Performed By: #### L 500.4050, L100.0500, L501.9520, L501.5200 #### [facility] [address] [place], [address] Glucose [Mass/Vol] 82 mg/dL Normal 74-106 [facility] Comment on above: Performed By: #### L 500.4050, L100.0500, L501.9520, L501.5200 #### [facility] [address] [place], [address] Potassium [Moles/Vol] 4.1 mmol/L Normal 3.5-5.1 [facility] Comment on above: Performed By: #### L 500.4050, L100.0500, L501.9520, L501.5200 #### [facility] [address] [place], [address] Sodium [Moles/Vol] 140 mmol/L Normal 136-145 [facility] Comment on above: Performed By: #### L 500.4050, L100.0500, L501.9520, L501.5200 #### [facility] [address] [place], [address] T PROT 7.1 g/dL Normal 6.4-8.2 [facility] Comment on above: Performed By: #### L 500.4050, L100.0500, L501.9520, L501.5200 #### [facility] [address] [place], [address] Urea nitrogen [Mass/Vol] 11 mg/dL Normal 7-18 [facility] Comment on above: Performed By: #### L 500.4050, L100.0500, L501.9520, L501.5200 #### [facility] [address] [place], [address] Determination of erythrocyte mean corpuscular volume (MCV)Ordered By: Yang Del Rio on 08-25-2024 MCV (RBC) [Entitic vol] 99 fL High 79-97 [facility] Eosinophils/100 WBC Auto (Bl d)Ordered By: Yang Del Rio on 08-25-2024 Eosinophils/100 WBC (Bld) 4 % Not Estab. [facility] Erythrocyte distribution wid th (RBC) [Ratio]Ordered By: Yang Del Rio on 08-25-2024 Erythrocyte distribution width (RBC) [Entitic vol] 46.8 fL High 35.1-43.9 [facility] Erythrocyte distribution wid th ratioOrdered By: Yang Del Rio on 08-25-2024 Erythrocyte distribution width (RBC) [Ratio] 12.6 % 11.6-15.4 [facility] Erythrocyte distribution width (RBC) [Ratio] 13.1 % Normal 11.6-14.6 [facility] Comment on above: Performed By: #### L 500.4050, L100.0500, L501.9520, L501.5200 #### [facility] [place], [address] Erythrocyte distribution wid th standard deviationOrdered By: Yang Del Rio on 08-25-2024 Erythrocyte distribution width (RBC) [Ratio] 46.8 fl High 35.1-43.9 [facility] Estimated glomerular filtrat ion rate (GFR) AmericanOrdered By: Yang Del Rio on 08-25-2024 Estimated GFR (MDRD) Amer 116 mL/min >60 [facility] Comment on above: GFR Calc Glomerular filtration rate ( GFR) estimationOrdered By: Yang Del Rio on 08-25-2024 Estimated GFR (MDRD) Non-Af Amer 96 mL/min >60 [facility] Comment on above: Non- GFR Calc GFR/1.73 sq M.predicted among non-blacks MDRD (S/P/Bld) [Vol rate/Area] 96 mL/min/{1.73_m2} >60 [facility] Comment on above: Non- GFR Calc Glucose measurementOrdered B y: Yang Del Rio on 08-25-2024 Glucose [Mass/Vol] 82 mg/dL 74-106 [facility] HIV 1 RNA JOSE+probe [Log #/V ol]Ordered By: Yang Del Rio on 08-25-2024 HIV-1 RNA (PCR) log10 Value [facility] Comment on above: Test not performedRe sult Units: [id number] to calculate result since non-numeric resultobtained for component test.Performed at: [facility] [id number] Director: Weston Rodrigez MD, Phone: [phone] Immature cells/100 WBC (Bld) Ordered By: Yang Del Rio on 08-25-2024 Immature Blood Cells [facility] Comment on above: Test not performed Interpretation of morphologi c examination of blood (narrative result)Ordered By: Yang Del Rio on 08-25-2024 Morphology Lit (Bld) [Interp] [facility] Comment on above: Test not performed Laboratory - Chemistry and C hemistry - challengeOrdered By: Yang Del Rio on 08-25-2024 AST [Catalytic activity/Vol] 15 U/L 15-37 [facility] - Hematology and Cell countsOrdered By: Yang Del Rio on 08-25-2024 MCH (RBC) [Entitic mass] 31.8 pg 26.6-33.0 [facility] Lymphocytes Auto (Unsp spec) [#/Vol]Ordered By: Yang Del Rio on 08-25-2024 Lymphocytes (Bld) [#/Vol] 2.3 10*3/uL 0.7-3.1 [facility] Lymphocytes/100 WBC Auto (Bl d)Ordered By: Yangjavier Del Rio on 08-25-2024 Lymphocytes/100 WBC (Bld) 19 % Not Estab. [facility] MCHC Auto (RBC) [Mass/Vol]Or dered By: Yang Del Rio on 08-25-2024 MCHC (RBC) [Mass/Vol] 32.3 g/dL 31.5-35.7 [facility] Magnesiumon 08-25-2024 Magnesium [Mass/Vol] 2.3 mg/dL Normal 1.6-2.6 [facility] Comment on above: Performed By: #### L 500.4050, L100.0500, L501.9520, L501.5200 #### [facility] [address] [place], [place], [address] Magnesium measurementOrdered By: Yang Del Rio on 08-25-2024 Magnesium [Mass/Vol] 2.3 mg/dL 1.6-2.6 [facility] Mean platelet volume determi nationOrdered By: Yang Del Rio on 08-25-2024 Platelet mean volume (Bld) [Entitic vol] 8.8 fL Normal 6.2-12.0 [facility] Comment on above: Performed By: #### L 500.4050, L100.0500, L501.9520, L501.5200 #### [facility] [address] [place], [place], [id number] Monocyte detectionOrdered By : Yang Del Rio on 08-25-2024 Monocytes/100 WBC (Bld) 10 % Not Estab. [facility] Morphology Lit (Bld) [Interp ]Ordered By: Yang Del Rio on 08-25-2024 Hematology Comments [facility] Comment on above: Test not performed Neutrophil countOrdered By: Yang Del Rio on 08-25-2024 Neutrophils/100 WBC (Bld) 66 % Not Estab. [facility] Nucleated RBC/100 WBC Auto ( Bld) [Ratio]Ordered By: Yang Del Rio on 08-25-2024 Nucleated RBC/100 WBC (Bld) [Ratio] [facility] Comment on above: Test not performed Nucleated Red Blood Cells [facility] Comment on above: Test not performed Percent of cells positive fo r CD4 antigenOrdered By: Yang Del Rio on 08-25-2024 CD3+CD4+ (T4 helper) cells/100 cells (Unsp spec) 28.7 % Low 30.8-58.5 [facility] Plasma HIV 1 RNA viral load by probe and target amplification method (log number/voluOrdered By: Yang Del Rio on 08-25-2024 HIV 1 RNA JOSE+probe [Log #/Vol] [facility] Comment on above: Test not performedRe sult Units: [id number] to calculate result since non-numeric resultobtained for component test.Performed at: [facility] [id number] Director: Weston Rodrigez MD, Phone: [phone] Potassium measurementOrdered By: Yang Del Rio on 08-25-2024 Potassium [Moles/Vol] 4.1 mmol/L 3.5-5.1 [facility] Quantitative HIV-1 RNA measu rement by PCROrdered By: Yang Del Rio on 08-25-2024 HIV-1 RNA Ultraquantitative (PCR) < 20 copies/mL . [facility] Comment on above: HIV-1 RNA not detect edThe reportable range for this assay is 20 to 10,000,000copies HIV-1 RNA/mL. RBC Auto (Bld) [#/Vol]Ordere d By: Yang Del Rio on 08-25-2024 RBC (Bld) [#/Vol] 4.06 10*6/uL Low 4.14-5.80 [facility] Serum anion gap measurementO rdered By: Yang Del Rio on 08-25-2024 Anion gap [Moles/Vol] 5 mmol/L 5-15 [facility] Serum globulin measurementOr dered By: Yang Del Rio 08-25-2024 Globulin (S) [Mass/Vol] 3.6 g/dL 2.2-4.2 [facility] Serum or plasma alanine fletcher otransferase (ALT) measurementOrdered By: Yang Del Rio 08-25-2024 ALT [Catalytic activity/Vol] 24 U/L 16-61 [facility] Serum or plasma albumin jazlyn urement (mass/volume)Ordered By: Yang Del Rio 08-25-2024 Albumin [Mass/Vol] 3.5 g/dL 3.2-5.0 [facility] Serum or plasma alkaline sandy sphatase measurementOrdered By: Yang Del Rio 08-25-2024 ALP [Catalytic activity/Vol] 103 U/L 45-117 [facility] Serum or plasma calcium jazlyn urement (mass/volume)Ordered By: Yang Del Rio 08-25-2024 Calcium [Mass/Vol] 9.3 mg/dL 8.5-10.1 [facility] Serum or plasma creatinine m easurement (mass/volume)Ordered By: Yang Del Rio on 08-25-2024 Creatinine [Mass/Vol] 0.95 mg/dL 0.70-1.30 [facility] Comment on above: The validity of the calculated GFR & GFRAA in patients over 70 years has not been determined. Clinical correlation is essential. Serum or plasma thyroid stim ulating hormone (TSH) measurement (units/volume)Ordered By: Yang Del Rio on 08-25-2024 TSH Qn 1.480 uIU/mL 0.358-3.740 [facility] Serum or plasma urea nitroge n measurement (mass/volume)Ordered By: Yang Del Rio on 08-25-2024 Urea nitrogen [Mass/Vol] 11 mg/dL 7-18 [facility] Sodium levelOrdered By: Najma Del Rio on 08-25-2024 Sodium [Moles/Vol] 140 mmol/L 136-145 [facility] TSH QnOrdered By: Yang hook on 08-25-2024 Thyroid Stimulating Hormone (TSH) 1.480 uIU/mL 0.358-3.740 [facility] Thyroid Stim Hormone (TSH)on 08-25-2024 TSH 1.480 uIU/mL Normal 0.358-3.740 [facility] Comment on above: Performed By: #### L 500.4050, L100.0500, L501.9520, L501.5200 #### [facility] [address] [place] [address], [address] Total proteinOrdered By: Ke Del Rio on 08-25-2024 Protein [Mass/Vol] 7.1 g/dL 6.4-8.2 [facility] WBC countOrdered By: Yang Del Rio on 08-25-2024 WBC (Bld) [#/Vol] 11.8 10*3/uL High 3.4-10.8 [facility] Whole blood hemoglobin measu rement (mass/volume)Ordered By: Yang Del Rio on 08-25-2024 Hemoglobin (Bld) [Mass/Vol] 12.9 g/dL Low 13.0-17.7 [facility] ALLIED HEALTHon 08-17-2024 ALLIED HEALTH HNO ID: [id number] Author: MYRNA GROVE RT(R) Service: Radiology Author [...] PATIENT PRESENTS WITH AN IMPLANTABLE OR ATTACHED SECTION GANG: No RADIOLOGY DEPARTMENT: General X-ray: Exam(s) Completed: Chest X-Ray PERIPHERAL IV DATA: Not applicable SIGNED BY: RT Barney(R) August 17, 2024 5:28 AM Normal [facility] Basic metabolic 2000 panelon 08-17-2024 Anion gap [Moles/Vol] 9 mmol/L Normal 8-15 [facility] Comment on above: Order Comment: Speci men Type: BLOOD SPECIMEN Ordering Facility: [facility] Address: [address] [place] [address] Performed By: #### 2 4321-2 #### [facility] [place] [facility] CLIA [id number] [address] [place], [place] [address] [place] Calcium [Mass/Vol] 9.7 mg/dL Normal 8.5-10.2 [facility] Comment on above: Order Comment: Speci men Type: BLOOD SPECIMEN Ordering Facility: [facility] Address: [address] [place] [address] Performed By: #### 2 4321-2 #### [facility] [place] [facility] CLIA [id number] [address] [address] [place] Chloride [Moles/Vol] 104 mmol/L Normal 98-107 [facility] Comment on above: Order Comment: Speci men Type: BLOOD SPECIMEN Ordering Facility: [facility] Address: [address] [place] [address] Performed By: #### 2 4321-2 #### [facility] CLIA [id number] [address] [place], [place] [address] [place] CO2 [Moles/Vol] 24 mmol/L Normal 22-30 [facility] Comment on above: Order Comment: Speci men Type: BLOOD SPECIMEN Ordering Facility: [facility] Address: [address] [place] [address] Performed By: #### 2 4321-2 #### [facility] CLIA [id number] [address] [place], [place] [address] [place] Creatinine [Mass/Vol] 0.80 mg/dL Normal 0.73-1.22 [facility] Comment on above: Order Comment: Speci men Type: BLOOD SPECIMEN Ordering Facility: [facility] Address: [address] [place] [address] Result Comment: Use of this assay is not recommended for patients undergoing treatment with phenindione, due to the potential for falsely depressed results. Performed By: #### 2 4321-2 #### [facility] CLIA [id number] [address] [place] [address] OF [facility] Creatinine and Glomerular filtration rate.predicted panel (S/P/Bld) 118 mL/min/1.73m??? Normal >=60 [facility] Comment on above: Order Comment: Speci men Type: BLOOD SPECIMEN Ordering Facility: [facility] Address: [address] [place] [address] Result Comment: Mar mated Glomerular Filtration Rate [...] GFR. Performed By: #### 2 4321-2 #### [facility] [place] [facility] CLIA [id number] [address] [place], [place] [address] [place] Glucose [Mass/Vol] 100 mg/dL High 74-99 [facility] Comment on above: Order Comment: Speci men Type: BLOOD SPECIMEN Ordering Facility: [facility] Address: [address] [place] [address] Result Comment: The [place] Diabetes Association (ADA) provides guidance for cutoff [...] Standards of Medical Care in Diabetes 2016, [place] [employer] Association. Diabetes Care. 2016.39(Suppl 1). Performed By: #### 2 4321-2 #### [facility] [place] [facility] CLIA [id number] [address] [place] [address] [place] Potassium [Moles/Vol] 3.7 mmol/L Normal 3.7-5.1 [facility] Comment on above: Order Comment: Speci men Type: BLOOD SPECIMEN Ordering Facility: [facility] Address: [address] [place] [address] Performed By: #### 2 4321-2 #### [facility] [place] [facility] CLIA [id number] [address] [place], [place] [address] [place] Sodium [Moles/Vol] 137 mmol/L Normal 136-144 [facility] Comment on above: Order Comment: Speci men Type: BLOOD SPECIMEN Ordering Facility: [facility] Address: [address] [place], [place] [address] Performed By: #### 2 4321-2 #### [facility] [place] [facility] CLIA [id number] [address] [place], [place] [address] [facility] [place] Urea nitrogen [Mass/Vol] 15 mg/dL Normal 9-24 [facility] Comment on above: Order Comment: Speci men Type: BLOOD SPECIMEN Ordering Facility: [facility] Address: [address] [place] [address] Performed By: #### 2 4321-2 #### [facility] CLIA [id number] [address] [place] CBC W Auto Differential pane l (Bld)on 08-17-2024 Basophils (Bld) [#/Vol] 10*3/uL Normal <0.11 [facility] Comment on above: Order Comment: Speci men Type: BLOOD SPECIMEN Ordering Facility: [facility] Address: [address] [place] [address] Performed By: #### C ORPNL #### [facility] [place] [place] [facility] CLIA [id number] [address] [place] Basophils/100 WBC (Bld) 0.2 % Normal [facility] Comment on above: Order Comment: Speci men Type: BLOOD SPECIMEN Ordering Facility: [facility] Address: [address] [place] [address] Performed By: #### C ORPNL #### [facility] [place] [place] [facility] CLIA [id number] [address] STATES [facility] Differential cell count method Nom (Bld) Auto Normal [facility] Comment on above: Order Comment: Speci men Type: BLOOD SPECIMEN Ordering Facility: [facility] Address: [address] [place] [address] Performed By: #### C ORPNL #### [facility] CLIA [id number] [address] [place] [address] [place] Eosinophils (Bld) [#/Vol] 0.06 10*3/uL Normal <0.46 [facility] Comment on above: Order Comment: Speci men Type: BLOOD SPECIMEN Ordering Facility: [facility] Address: [address] [place] [address] Performed By: #### C ORPNL #### [facility] [place] [place] [facility] CLIA [id number] [address] Eosinophils/100 WBC (Bld) 0.5 % Normal [facility] Comment on above: Order Comment: Speci men Type: BLOOD SPECIMEN Ordering Facility: [facility] Address: [address] [place] [address] Performed By: #### C ORPNL #### [facility] [place] [facility] CLIA [id number] [address] Erythrocyte distribution width (RBC) [Ratio] 13.4 % Normal 11.5-15.0 [facility] Comment on above: Order Comment: Speci men Type: BLOOD SPECIMEN Ordering Facility: [facility] Address: [address] [place] [address] Performed By: #### C ORPNL #### [facility] [place] [facility] CLIA [id number] [address] Hematocrit (Bld) [Volume fraction] 42.3 % Normal 39.0-51.0 [facility] Comment on above: Order Comment: Speci men Type: BLOOD SPECIMEN Ordering Facility: [facility] Address: [address] [place] [address] Performed By: #### C ORPNL #### [facility] [place] [place] [facility] CLIA [id number] [address] Hemoglobin (Bld) [Mass/Vol] 14.1 g/dL Normal 13.0-17.0 [facility] Comment on above: Order Comment: Speci men Type: BLOOD SPECIMEN Ordering Facility: [facility] Address: [address] [place] [address] Performed By: #### C ORPNL #### [facility] [place] [place] [facility] CLIA [id number] [address] Immature granulocytes (Bld) [#/Vol] 10*3/uL Normal <0.10 [facility] Comment on above: Order Comment: Speci men Type: BLOOD SPECIMEN Ordering Facility: [facility] Address: [address] [place] [address] Performed By: #### C ORPNL #### [facility] CLIA [id number] [address] Immature granulocytes/100 WBC (Bld) 0.2 % Normal [facility] Comment on above: Order Comment: Speci men Type: BLOOD SPECIMEN Ordering Facility: [facility] Address: [address] [place] [address] Performed By: #### C ORPNL #### [facility] [place] [facility] CLIA [id number] [address] OF [facility] Lymphocytes (Bld) [#/Vol] 1.87 10*3/uL Normal 1.00-4.00 [facility] Comment on above: Order Comment: Speci men Type: BLOOD SPECIMEN Ordering Facility: [facility] Address: [address] [place] [address] Performed By: #### C ORPNL #### [facility] [place] [facility] CLIA [id number] [address] Lymphocytes/100 WBC (Bld) 15.7 % Normal [facility] Comment on above: Order Comment: Speci men Type: BLOOD SPECIMEN Ordering Facility: [facility] Address: [address] [place] [address] Performed By: #### C ORPNL #### [facility] [place] [facility] CLIA [id number] [address] MCH (RBC) [Entitic mass] 32.0 pg Normal 26.0-34.0 [facility] Comment on above: Order Comment: Speci men Type: BLOOD SPECIMEN Ordering Facility: [facility] Address: [address] [place] [address] Performed By: #### C ORPNL #### [facility] CLIA [id number] [address] MCHC (RBC) [Mass/Vol] 33.3 g/dL Normal 30.5-36.0 [facility] Comment on above: Order Comment: Speci men Type: BLOOD SPECIMEN Ordering Facility: [facility] Address: [address] [place] [address] Performed By: #### C ORPNL #### [facility] CLIA [id number] [address] [place] MCV (RBC) [Entitic vol] 95.9 fL Normal 80.0-100.0 [facility] Comment on above: Order Comment: Speci men Type: BLOOD SPECIMEN Ordering Facility: [facility] Address: [address] [place] [address] Performed By: #### C ORPNL #### [facility] CLIA [id number] [address] [place] Monocytes (Bld) [#/Vol] 1.66 10*3/uL High <0.87 [facility] Comment on above: Order Comment: Speci men Type: BLOOD SPECIMEN Ordering Facility: [facility] Address: [address] [place] [address] Performed By: #### C ORPNL #### [facility] [place] [place] [facility] CLIA [id number] [address] Monocytes/100 WBC (Bld) 13.9 % Normal [facility] Comment on above: Order Comment: Speci men Type: BLOOD SPECIMEN Ordering Facility: [facility] Address: [address] [place] [address] Performed By: #### C ORPNL #### [facility] [place] [place] [facility] CLIA [id number] [address] [place] Neutrophils (Bld) [#/Vol] 8.30 10*3/uL High 1.45-7.50 [facility] Comment on above: Order Comment: Speci men Type: BLOOD SPECIMEN Ordering Facility: [facility] Address: [address] [place] [address] Performed By: #### C ORPNL #### [facility] CLIA [id number] [address] [place] Neutrophils/100 WBC (Bld) 69.5 % Normal [facility] Comment on above: Order Comment: Speci men Type: BLOOD SPECIMEN Ordering Facility: [facility] Address: [address] [place] [address] Performed By: #### C ORPNL #### [facility] CLIA [id number] [address] [place] Nucleated RBC (Bld) [#/Vol] Normal [facility] Comment on above: Order Comment: Speci men Type: BLOOD SPECIMEN Ordering Facility: [facility] Address: [address] [place] [address] Performed By: #### C ORPNL #### [facility] [place] [place] [facility] CLIA [id number] [address] [place] Nucleated RBC/100 WBC (Bld) [Ratio] Normal [facility] Comment on above: Order Comment: Speci men Type: BLOOD SPECIMEN Ordering Facility: [facility] Address: [address] [place] [address] Performed By: #### C ORPNL #### [facility] [place] [place] [facility] CLIA [id number] [address] [place] [address] [place] Platelet mean volume (Bld) [Entitic vol] 8.5 fL Low 9.0-12.7 [facility] Comment on above: Order Comment: Speci men Type: BLOOD SPECIMEN Ordering Facility: [facility] Address: [address] [place] [address] Performed By: #### C ORPNL #### [facility] [place] [place] [facility] CLIA [id number] [address] [place] [address] [place] Platelets (Bld) [#/Vol] 253 10*3/uL Normal 150-400 [facility] Comment on above: Order Comment: Speci men Type: BLOOD SPECIMEN Ordering Facility: [facility] Address: [facility] [place] [address] Performed By: #### C ORPNL #### [facility] CLIA [id number] [address] [place] [address] [place] RBC (Bld) [#/Vol] 4.41 10*6/uL Normal 4.20-6.00 [facility] Comment on above: Order Comment: Speci men Type: BLOOD SPECIMEN Ordering Facility: [facility] Address: [address] [place] [address] Performed By: #### C ORPNL #### [facility] [place] [place] [facility] CLIA [id number] [address] WBC (Bld) [#/Vol] 11.93 10*3/uL High 3.70-11.00 [facility] Comment on above: Order Comment: Speci men Type: BLOOD SPECIMEN Ordering Facility: [facility] Address: [address] [place], [place] [address] Performed By: #### C ORPNL #### [facility] [place] [place] [facility] CLIA [id number] [address] ED PROV NOTEon 08-17-2024 ED PROV NOTE HNO ID: [id number] Author: JAVAN MENSAH MD Service: Emergency Medicine [...] 8.30 (*) 1.45 - 7.50 k/uL Abs Richardson 1.66 (*) <0.87 k/uL All other components [...] been aut (more content not included)... Normal [facility] XR CHEST 2V FRONTAL/LATon [...] tissues: Unremarkable. IMPRESSION: No acute radiographic abnormality. Bus Girl: MIRIAN Transcribe Date/Time: Aug 17 2024 7:11A Dictated by : CRISTY WEBER MD This examination was interpreted and the report reviewed and electronically signed by: CRISTY WEBER MD on Aug 17 2024 7:13AM EST [id number] Normal [facility] CNOVon 08-11-2024 CNOV Office Visit (GENSWS ) ----- FAUSTINO UNGER ([id number]) 1990 Date Time Provider Department 08/11/24 11:00 AM CATHI PARKS GENS During your visit today, we recorded the following information about you: Cathi Parks APRN.COMMUNITY REINVESTMENT ACT OFFICER 08/11/2024 12:59 PM Signed FOLLOW UP VISIT - ENDOSCOPY Faustino Unger 1990 [id number] REFERRING PHYSICIAN: No referring provider defined for [...] needed for worsening/no improvement. __ Cathi Parks APRN.COMMUNITY REINVESTMENT ACT OFFICER Allergies As of Date: 08/11/2024 Noted Allergy Reaction ANTIHISTIMINE 06/19/2015 1 - Mental Status Change METOCLOPRAMIDE 01/28/2019 1 - Mental Status Change MOBIC (MELOXICAM) 08/31/2023 10 - Anaphylaxis PROCHLORPERAZINE 01/28/2019 1 - Mental Status Change SHELLFISH DERIVED 03/21/2022 6 - Diarrhea Date Reviewed: 08/11/2024 Reviewed by: Cathi Parks APRN.COMMUNITY REINVESTMENT ACT OFFICER - Fully Assessed Reason for Visit: Follow Up [171] Primary Visit Diagnosis:Gastritis without bleeding, unspecified chronicity, unspecified gastritis type [K29.70] Other Visit Diagnoses:Duodenitis without bleeding [K29.80] Gastroesophageal reflux disease without esophagitis [K21.9] Order(s):sucralfate (CARAFATE) 1 gram tabletTake 1 tablet by mouth four times daily.Disp: 120 tabletRfl: 0 omeprazole (PRILOSEC) 40 mg capsuleTake 1 c (more content not included)... Normal [facility] Neurology Visit Reporton Neurology Visit Report [facility] [address] [facility], [address] [place] [address] OFFICE VISIT Date of Service: 08/11/24 MR#: [id number] Acct: [id number] Name: FAUSTINO UNGER Rep #: [id number] : 1990 Provider: Dr. Yang keith MD Age/Sex: 33/M Location: [facility]. Status: Signed HPI HPI Chief Complaint: Establish [...] He does not have any history of BIOLOGY LECTURER infection. He has had headaches since he [...] is in progress. He is seeing a investigations consultant. He has a family history of cerebral [...] drugs sin (more content not included)... Normal [facility] CNOVon 08-10-2024 CNOV Office Visit (ENWSTR ) ----- FAUSTINO UNGER ([id number]) 1990 M Date Time Provider Department 08/10/24 11:40 AM TALI CABALLERO ENWSTR During your visit today, we recorded the following information about you: Pulse Respiration Blood pressure Weight 86/minute 20/minute 122/82 76.5 kg Height 1.727 m Tali Caballero MD 08/10/2024 7:14 PM Signed Endocrinology and Metabolism [place] Follow up note NAME: Faustino Unger is [...] since 10/2022. Follows up with ID in [facility] He is on omeprazole 20 mg daily [...] intestine, surgery done at that time in [place]. He is going for colonoscopy next month [...] expansion Gas (more content not included)... [facility] HNO ID: [id number] Author: JALEN MILLER RT(R) Service: Radiology Author [...] PATIENT PRESENTS WITH AN IMPLANTABLE OR ATTACHED SECTION GANG: No RADIOLOGY DEPARTMENT: General X-ray: Exam(s) Completed: Chest X-Ray PERIPHERAL IV DATA: Not applicable SIGNED BY: RT Simone(R) July 11, 2024 12:49 PM Normal [facility] ED NOTEon 07-11-2024 ED NOTE HNO ID: [id number] Author: ADONAY GILLESPIE RN Service: ? Author [...] July 12, 2024 TIME: 12:21 PM Normal [facility] ED NOTE HNO ID: [id number] Author: TRISTON ROBLERO RN Service: ? Author Type: Registered Nurse Type: ED Notes Filed: 07/11/2024 13:59 Note Text: D/c instructions reviewed with pt who verbalized understanding. Pt's vss and left ED ual and in stable condition Normal [facility] ED NOTE HNO ID: [id number] Author: TRISTON ROBLERO RN Service: ? Author Type: Registered Nurse Type: ED Notes Filed: 07/11/2024 11:39 Note Text: Pt comes to ED stating I think I have pneumonia. Pt states he has a productive cough with very thick yellow and green sputum. Has SOB and chest discomfort when lying flat. He is AANDOx3, vss. Will continue to monitor. Normal [facility] ED PROV NOTEon 07-11-2024 ED PROV NOTE HNO ID: [id number] Author: ADIS CHRISTIANSON MD Service: Emergency Medicine [...] this r (more content not included)... Normal [facility] XR CHEST 1V FRONTALon [...] are unremarkable. IMPRESSION: No acute radiographic abnormality. Bus Girl: PSCB Transcribe Date/Time: Jul 11 2024 1:04P Dictated by : KAT PRIETO MD This examination was interpreted and the report reviewed and electronically signed by: KAT PRIETO MD on Jul 11 2024 1:05PM EST [id number] Normal [facility] ANES POSTPROC EVALon 024 ANES POSTPROC EVAL HNO ID: [id number] Author: TORY LAMBERT MD Service: Anesthesiology Author Type: Anesthesiologist Type: Anesthesia Postprocedure Evaluation Filed: 07/02/2024 16:44 Note Text: POST ANESTHESIA EVALUATION NOTE : 1990 Procedure Summary Date: 07/02/24 Room / Location: [facility] Endoscopy Anesthesia Start: 1359 Anesthesia Stop: 1547 Procedures: COLONOSCOPY SCREENING EGD DIAGNOSTIC Diagnosis: History of colonic polyps Encounter for screening for malignant neoplasm of colon Dysphagia, unspecified type Heartburn (High risk colon cancer surveillance: Personal history of colonic polyps) (Generalized abdominal pain) Scheduled Providers: Tyree Dangelo DO; Mac Han, WILLIAM.FOOD SERVICE AGENT; Javan Cowan MD Responsible Provider: Tory Lambert [...] July 02, 2024 TIME: 4:43 PM CSN: [id number] Normal [facility] ANES PRE-OPon 07-02-2024 ANES PRE-OP HNO ID: [id number] Author: TORY LAMBERT MD Service: Anesthesiology Author Type: Anesthesiologist Type: Anesthesia Preprocedure Evaluation Filed: 07/02/2024 13:56 Note Text: ANESTHESIOLOGY DAY OF SURGERY NOTE : 1990 Procedure Information Date/Time: 07/02/24 1420 Scheduled providers: Tyree Dangelo DO; Mac Han APRN.FOOD SERVICE AGENT; Javan Cowan MD Procedures: COLONOSCOPY SCREENING EGD DIAGNOSTIC Location: [facility] Endoscopy Estimated body mass index is 23.26 [...] and consent discussed: yes. Patient / Responsible Republican agrees to proceed: yes Patient / Surrogate [...] July 02, 2024 TIME: 12:51 PM CSN: [id number] Normal [facility] Colonoscopyon 07-02-2024 Colonoscopy [facility] Gastrointestinal Endoscopy Patient Name: Faustino Unger Procedure Date: 07/02/2024 2:19 PM Date of : 1990 Admit Type: Outpatient Age: 33 Room: [facility] Gender: Male Note Status: Finalized Attending MD: Tyree Dangelo , , [id number] Procedure: Colonoscopy Indications: High risk colon cancer [...] physician, the nurse, the anesthesiologist and the center sales and service associate in the pre-procedure area in the endoscopy [...] using the (more content not included)... Normal [facility] Colonoscopy Study observatio non 07-02-2024 [facility] Gastrointestinal Endoscopy Patient Name: Faustino Unger Procedure Date: 07/02/2024 2:19 PM Date of : 1990 Admit Type: Outpatient Age: 33 Room: [facility] Gender: Male Note Status: Finalized Attending MD: Tyree Dangelo , , [id number] Procedure: Colonoscopy Indications: High risk colon cancer [...] physician, the nurse, the anesthesiologist and the center sales and service associate in the pre-procedure area in the endoscopy [...] of mi (more content not included)... PROVATION [facility] Radiology Study observation (narrative) [facility] EGD Study observation Anu meehan 07-02-2024 [facility] Gastrointestinal Endoscopy Patient Name: Faustino Unger Procedure Date: 07/02/2024 1:55 PM Date of : 1990 Admit Type: Outpatient Age: 33 Room: [facility] Gender: Male Note Status: Finalized Attending MD: Tyree Dangelo , , [id number] Procedure: Upper GI endoscopy Indications: Generalized abdominal [...] physician, the nurse, the anesthesiologist and the center sales and service associate in the pre-procedure area in the endoscopy [...] for e (more content not included)... PROVATION [facility] Radiology Study observation (narrative) [facility] HISTORY PHYSICALon HISTORY PHYSICAL HNO ID: [id number] Author: TYREE DANGELO DO Service: General Surgery [...] July 02, 2024 TIME: 2:04 PM Normal [facility] SURGICAL PATHOLOGYon CASE REPORT Normal [facility] Comment on above: Order Comment: Speci men Type: BLOOD SPECIMEN Ordering Facility: [facility] Address: [address] [place] [address] Result Comment: Surg ica Pathology Report Case: [id number] Authorizing Provider: Tyree Dangelo DO Collected: 07/02/2024 02:09 PM Ordering Location: [facility] Endoscopy Received: 07/05/2024 08:25 AM Pathologist: Magalie [...] Sigmoid, Polyp, x 3 Performed By: #### 1 4979-9, 59987-7 #### [facility] CLIA [id number] [address] DIAGNOSIS COMMENT B. No Helicobacter p ylori organisms are identified. [facility] Comment on above: Order Comment: Speci men Type: BLOOD SPECIMEN Ordering Facility: [facility] Address: [address] [place] [address] Performed By: #### 1 4979-9, 67033-5 #### [facility] CLIA [id number] [address] [place] [address] [facility] FINAL DIAGNOSIS [facility] Comment on above: Order Comment: Speci men Type: BLOOD SPECIMEN Ordering Facility: [facility] Address: [address] [place] [address] Result Comment: A. D uodenum, biopsy: - [...] Hyperplastic polyps. JEL 07/06/2024 Performed By: #### 1 4979-9, 50427-3 #### [facility] CLIA [id number] [address] [place] [id number] [facility] FINAL PERFORMING LAB [facility] Comment on above: Order Comment: Speci men Type: BLOOD SPECIMEN Ordering Facility: [facility] Address: [address] [place] [address] Result Comment: Diag nostic interpretation performed at [facility], [address] [place] [address] CLIA# [id number] Sales Stock Associate: Maxim Plunkett M.D. Performed By: #### 1 4979-9, 97252-4 #### [facility] CLIA [id number] [address] [place] [address] OF [facility] GROSS DESCRIPTION Normal [facility] Comment on above: Order Comment: Speci men Type: BLOOD SPECIMEN Ordering Facility: [facility] Address: [address] [place] [address], [place] [address] Result Comment: A. S mall Bowel, Duodenum, [...] in one cassette. Gross examination performed at [facility], [address] [facility] [place] [id number] [facility] July 05, 2024 12:17 PM Performed By: #### 1 4979-9, 86915-5 #### [facility] CLIA [id number] [address] [place] [address] [place] Upper GI endoscopy 2 024 Upper GI endoscopy [facility] Gastrointestinal Endoscopy Patient Name: Faustino Unger Procedure Date: 07/02/2024 1:55 PM Date of : 1990 Admit Type: Outpatient Age: 33 Room: [facility] Gender: Male Note Status: Finalized Attending MD: Tyree Dangelo , , [id number] Procedure: Upper GI endoscopy Indications: Generalized abdominal [...] physician, the nurse, the anesthesiologist and the center sales and service associate in the pre-procedure area in the endoscopy [...] - Resume previou (more content not included)... [facility] 06-07-2024 [facility] Office Visit (ENWSTR ) ----- FAUSTINO UNGER ([id number]) 1990 M Date Time Provider Department 06/07/24 3:00 PM TALI CABALLEROWSTR During your visit today, we recorded the following information about you: Pulse Respiration Blood pressure Weight 80/minute 20/minute 138/86 69.4 kg Height 1.727 m Tali Caballero MD 06/07/2024 7:05 PM Signed Endocrinology and Metabolism [facility] Note NAME: Faustino Unger is a 33 year old old male PCP: Humberto Downs MD Requesting Provider: Meaghan Bloom [address] [facility] [address] My final recommendations will be communicated back [...] since 10/2022. Follows up with ID in [facility] He is on omeprazole 20 mg daily [...] intestine, surgery done at that time in [place]. He is going for colonoscopy next month [...] EOMI, N (more content not included)... Normal [facility] Kidney and Bladderon 024 Kidney and Bladder [facility] Imaging Services [address] [place], [place] [address] Kidney and Bladder MR#: [id number] Acct: [id number] Name: FAUSTINO UNGER Rep #: [id number] : 1990 M 33 From: Damon kincaid MD PCP: Dr. Humberto Downs MD Status: REG CLI Study: Kidney and Bladder Date of Exam: 06/07/24 Exam# [id number] Ordering Dr: Skye Lopez DO [id number] STUDY: RENAL ULTRASOUND - COMPLETE REASON FOR [...] 14:16 EST Reading Location ID and State: [address] [place] [address] , Service support , CC: Dr. Skye Lopez DO; Dr. Humberto Downs MD Bus Girl: Signed Normal [facility] Microalb:Creat Ratio,Random URon 05-27-2024 Creatinine [Mass/Vol] 162.00 mg/dL Normal NO RAN GE EST. [facility] Comment on above: Performed By: #### L 502.0250 #### [facility] Laboratory [address] [place], [place], [id number] MALB:CRE 4.7 mg/g CRE Normal <30 mg/g CRE [facility] Comment on above: Performed By: #### L 502.0250 #### [facility] Laboratory [address] [place], [place], [address] MICROALBUMIN,UR 7.6 mg/L Normal NO RANGE EST. [facility] Comment on above: Performed By: #### L 502.0250 #### [facility] Laboratory [address] [place], [address] Emergency Department Summary on 05-18-2024 Emergency Department Summary [facility] Medical Records Department [address] [place] [address] Emergency Department Summary 05/18/24 MR#: [id number] Acct: [id number] Name: FAUSTINO UNGER Rep #: [id number] : 1990 33 From: Nancy Riley DO [...] any history of any actual abdominal surgeries. [facility] Medical History HIV (human immunodeficiency virus [...] History mcg/actuation nasal spray,suspension (Flonase Allergy Relief) nhtldjlr-lkfhvcre-lgmbg acid 400 tab PO 03/31/24 Unknown History [...] back pain (more content not included)... Normal [facility] Abdomen/Pelvis W IV Cont ONL Yon 05-17-2024 Abdomen/Pelvis W IV Cont ONLY [facility] Imaging Services [address] [place] [address] Abdomen/Pelvis W IV Cont ONLY MR#: [id number] Acct: [id number] Name: FAUSTINO UNGER Rep #: [id number] : 1990 M 33 From: Pete Mayer PCP: Dr. Humberto Downs MD Status: [facility] ER Study: Abdomen/Pelvis W IV Cont ONLY Date of Exam: Exam# [id number] Ordering Dr: Nancy Riley DO [id number] STUDY: CT ABDOMEN AND PELVIS WITH CONTRAST [...] at 1:08 EDT , CC: Dr. Nancy Riley DO; Dr. Humberto Downs MD Bus Girl: Signed Normal [facility] CBC W/Diff, Automatedon 10-2 Absolute Lymph 1.24 X10 3/uL Normal 0.83-4.51 [facility] Comment on above: Performed By: #### L 501.7700, L500.4050, L100.0100 #### [facility] Laboratory [address] [place], [place], [address] Absolute Neut 10.9 X10 3/uL High 2.0-7.7 [facility] Comment on above: Performed By: #### L 501.2450, L500.4050, L100.0100 #### [facility] Laboratory [address] [place], [address] Basophils/100 WBC (Bld) 0.2 % Normal 0-1 [facility] Comment on above: Performed By: #### L 501.2450, L500.4050, L100.0100 #### [facility] Laboratory [address] [place], [address] Eosinophils/100 WBC (Bld) 0.0 % Normal 0-5 [facility] Comment on above: Performed By: #### L 501.2450, L500.4050, L100.0100 #### [facility] [address] [place], [address] Erythrocyte distribution width (RBC) [Ratio] 13.1 % Normal 11.6-14.6 [facility] Comment on above: Performed By: #### L 501.2450, L500.4050, L100.0100 #### [facility] Laboratory [address] [place], [address] Hematocrit (Bld) [Volume fraction] 40.7 % Normal 40-54 [facility] Comment on above: Performed By: #### L 501.2450, L500.4050, L100.0100 #### [facility] [address] [place], [address] Hemoglobin (Bld) [Mass/Vol] 13.7 g/dL Normal 13.0-16.5 [facility] Comment on above: Performed By: #### L 501.2450, L500.4050, L100.0100 #### [facility] Laboratory [address] [place], [address] IG% 0.500 Normal 0.0-0.9 [facility] Comment on above: Result Comment: IG% - Immature Granulocytes (promyelocytes, myelocytes and metamyelocytes) > 1% indicates that a LEFT SHIFT is Present. Performed By: #### L 501.2450, L500.4050, L100.0100 #### [facility] [address] [place], [address] Lymphocytes/100 WBC (Bld) 9.7 % Low 19-41 [facility] Comment on above: Performed By: #### L 501.2450, L500.4050, L100.0100 #### [facility] Laboratory [address] [place], [address] MCH (RBC) [Entitic mass] 31.6 pg Normal 27.0-32.0 [facility] Comment on above: Performed By: #### L 501.2450, L500.4050, L100.0100 #### [facility] Laboratory [address] [place], [address] MCHC (RBC) [Mass/Vol] 33.7 g/dL Normal 32-36 [facility] Comment on above: Performed By: #### L 501.2450, L500.4050, L100.0100 #### [facility] Laboratory [address] [place], [address] MCV (RBC) [Entitic vol] 94.0 fL Normal 80-94 [facility] Comment on above: Performed By: #### L 501.2450, L500.4050, L100.0100 #### [facility] Laboratory [address] [place], [address] Monocytes/100 WBC (Bld) 4.7 % Normal 0-10 [facility] Comment on above: Performed By: #### L 501.2450, L500.4050, L100.0100 #### [facility] Laboratory [address] [place], [address] Neutrophils/100 WBC (Bld) 84.9 % High 47-70 [facility] Comment on above: Performed By: #### L 501.2450, L500.4050, L100.0100 #### [facility] Laboratory [address] [place], [address] Nucleated RBC (Bld) [#/Vol] 0 10*3/uL Normal 0-5 [facility] Comment on above: Performed By: #### L 501.2450, L500.4050, L100.0100 #### [facility] Laboratory [address] [place], [address] Platelet mean volume (Bld) [Entitic vol] 8.5 fL Normal 6.2-12.0 [facility] Comment on above: Performed By: #### L 501.2450, L500.4050, L100.0100 #### [facility] Laboratory [address] [place], [address] Platelets (Bld) [#/Vol] 261 10*3/uL Normal 150-450 [facility] Comment on above: Performed By: #### L 501.2450, L500.4050, L100.0100 #### [facility] Laboratory [address] [place], [address] RBC (Bld) [#/Vol] 4.33 10*6/uL Low 4.6-6.2 [facility] Comment on above: Performed By: #### L 501.2450, L500.4050, L100.0100 #### [facility] Laboratory [address] [place], [address] RDW SD 45.2 fl High 35.1-43.9 [facility] Comment on above: Performed By: #### L 501.2450, L500.4050, L100.0100 #### [facility] Laboratory [address] [place], [address] WBC (Bld) [#/Vol] 12.8 10*3/uL High 4.4-11.0 [facility] Comment on above: Performed By: #### L 501.2450, L500.4050, L100.0100 #### [facility] Laboratory [address] [place], [address] Chest PA and Lateralon 05-17 Chest PA and Lateral [facility] Imaging Services [address] [place] [address] Chest PA and Lateral MR#: [id number] Acct: [id number] Name: FAUSTINO UNGER Rep #: [id number] : 1990 M 33 From: Pete Mayer PCP: Dr. Humberto Downs MD Status: [facility] ER Study: Chest PA and Lateral Date of Exam: 05/17/24 Exam# [id number] Ordering Dr: Nancy Riley DO [id number] STUDY: X-RAY CHEST REASON FOR EXAM: Male, [...] Nancy Riley DO; Dr. Humberto Downs MD Bus Girl: Signed Normal [facility] Comprehensive Metabolic Prof mckay 05-17-2024 Albumin [Mass/Vol] 3.6 g/dL Normal 3.2-5.0 [facility] Comment on above: Performed By: #### L 501.2450, L500.4050, L100.0100 ####[facility] [address] [place], [address] Albumin/Globulin [Mass ratio] 1.1 {ratio} Normal 0.9-2.4 [facility] Comment on above: Performed By: #### L 501.2450, L500.4050, L100.0100 ####[facility] [address] [place], [address] ALK P 80 U/L Normal 45-117 [facility] Comment on above: Performed By: #### L 501.2450, L500.4050, L100.0100 ####[facility] [address] [place], [address] ALT [Catalytic activity/Vol] 29 U/L Normal 16-61 [facility] Comment on above: Performed By: #### L 501.2450, L500.4050, L100.0100 ####[facility] [address] [place], [address] AST [Catalytic activity/Vol] 13 U/L Low 15-37 [facility] Comment on above: Performed By: #### L 501.2450, L500.4050, L100.0100 ####[facility] [address] [place], [address] Bilirubin [Mass/Vol] 0.20 mg/dL Normal 0.20-1.00 [facility] Comment on above: Result Comment: For patients on eltrombopag therapy, use of Dimension Giltner TBIL is not recommended. Performed By: #### L 501.2450, L500.4050, L100.0100 ####[facility] [address] [place], [address] BUN/CRE 11.5 RATIO Normal 10-20 [facility] Comment on above: Performed By: #### L 501.2450, L500.4050, L100.0100 ####[facility] [address] [place], [address] CA,Total 8.9 mg/dL Normal 8.5-10.1 [facility] Comment on above: Performed By: #### L 501.2450, L500.4050, L100.0100 ####[facility] [address] [place], [address] Chloride [Moles/Vol] 108 mmol/L High 98-107 [facility] Comment on above: Performed By: #### L 501.2450, L500.4050, L100.0100 ####[facility] [address] [place], [address] CO2 [Moles/Vol] 25.0 mmol/L Normal 21.0-32.0 [facility] Comment on above: Performed By: #### L 501.2450, L500.4050, L100.0100 ####[facility] [address] [place], [address] Creatinine [Mass/Vol] 0.87 mg/dL Normal 0.70-1.30 [facility] Comment on above: Result Comment: The validity of the calculated GFR GFRAA in patients over 70 years has not been determined. Clinical correlation is essential. Performed By: #### L 501.2450, L500.4050, L100.0100 ####[facility] [address] [place], [address] ECRCL 114.66 ml/min Normal [facility] Comment on above: Performed By: #### L 501.2450, L500.4050, L100.0100 ####[facility] [address] [place], [address] EST GFR - AA 128 mL/min Normal >60 [facility] Comment on above: Result Comment: Afri can Bruneian GFR Calc Performed By: #### L 501.2450, L500.4050, L100.0100 ####[facility] [address] [place], [address] GAP 5 Normal 5-15 [facility] Comment on above: Performed By: #### L 501.2450, L500.4050, L100.0100 ####[facility] [address] [place], [address] GFR/1.73 sq M.predicted among non-blacks MDRD (S/P/Bld) [Vol rate/Area] 106 mL/min/{1.73_m2} Normal >60 [facility] Comment on above: Result Comment: Non- GFR Calc Performed By: #### L 501.2450, L500.4050, L100.0100 ####[facility] [address] [place], [address] Globulin (S) [Mass/Vol] 3.4 g/dL Normal 2.2-4.2 [facility] Comment on above: Performed By: #### L 501.2450, L500.4050, L100.0100 ####[facility] [address] [place], [address] Glucose [Mass/Vol] 137 mg/dL High 74-106 [facility] Comment on above: Result Comment: Fast ing Glucose result greater than or equal to 126 mg/dL suggests DIABETES MELLITUS per A.D.A. criteria. Performed By: #### L 501.2450, L500.4050, L100.0100 ####[facility] [address] [place], [address] Potassium [Moles/Vol] 4.1 mmol/L Normal 3.5-5.1 [facility] Comment on above: Performed By: #### L 501.2450, L500.4050, L100.0100 ####[facility] [address] [place], [address] Sodium [Moles/Vol] 139 mmol/L Normal 136-145 [facility] Comment on above: Performed By: #### L 501.2450, L500.4050, L100.0100 ####[facility] [address] [place], [address] T PROT 7.0 g/dL Normal 6.4-8.2 [facility] Comment on above: Performed By: #### L 501.2450, L500.4050, L100.0100 ####[facility] [address] [place], [address] Urea nitrogen [Mass/Vol] 10 mg/dL Normal 7-18 [facility] Comment on above: Performed By: #### L 501.2450, L500.4050, L100.0100 ####[facility] [address] [place], [address] Decalcification bone/plaqueo n 05-17-2024 Decalcification bone/plaque Patient Age/Sex Location Account Attending Physician FAUSTINO UNGER 33/M LABSPEC [id number] Dr. Pete Mcmahan MD Specimen: [id number] Received: 05/17/24 Status: MAGDALENA Frias Num: [id number] Spec Type: NASAL SPEC Subm Dr: Dr. Pete Mcmahan MD HEADER OPERATION: Septoplasty, submucous resection of inferior turbinates PRE-OP DIAGNOSIS: Nasal congestion, hypertrophy of nasal turbinates, deviated nasal septum TISSUE SUBMITTED: Nasal septum MICROSCOPIC DIAGNOSIS Nasal septum, septoplasty: Fragments of bone and cartilage clinically deviated nasal septum. Zoey 05/21/2024 MICROSCOPIC DESCRIPTION Slides are reviewed. GROSS DESCRIPTION Received is one container labeled with the patient's name and not further designated. The specimen consists of multiple fragments of cartilage and bone measuring in aggregate 5.0 x 3.0 x 0.3cm. The entire specimen is submitted in two cassettes after decalcification. 05/18/2024 TC:5 CPT:04263, 31697 Patient Age/Sex Location Account Attending Physician FAUSTINO UNGER 33/M LABSPEC [id number] Dr. Pete Mcmaahn MD Signed (signature on file) Dr. Angel Barragan MD 05/21/24 1252 Normal [facility] Comment on above: Performed By: #### P DEC ####[facility] [address] [place], [address] Lipaseon 05-17-2024 Lipase [Catalytic activity/Vol] 25 U/L Normal 13-75 [facility] Comment on above: Result Comment: Shaye huber note: LIPASE revised reference range effective 22. New Lipase methodology. Expected to produce lower values than the previous assay method. NEW Reference Range: 13 - 75 U/L Performed By: #### L 501.2450, L500.4050, L100.0100 ####[facility] [address] [place], [address] XR HIP 1 VIEW RIGHTon 2023 XR [...] Date: 05/14/2024 7:33:56 AM Ordering Provider: [facility] 04-16-2024 [facility] Telephone (HEMROSA MARIA) ----- CORNELFAUSTINO Mills ([id number]) 1990 M Date Time Provider Department 04/16/24 MEAGHAN BLOOM During your visit today, we recorded the following information about you: Meaghan Bloom DO 04/16/2024 6:39 PM Signed Can let him know the laboratory testing I ordered did not reveal any evidence of a bone marrow disorder. Bone density was low for his age. Plain film x-ray showed no evidence of sclerotic lesions. Recommend referral to endocrinology due to low bone density. DO Donnell Snider Kara, LPN 04/19/2024 9:21 AM Signed Left , will send [employer] message. Advised pt to call office or respond in [employer]works if he had any questions. Will need scheduled with endocrin. GERARD Rush Kara, LPN 04/20/2024 9:46 AM Signed Pt aware, please assist with endocrin ref. Samantha Jacobo LPN Elaine Barreto 04/20/2024 3:07 PM Signed Spoke with patient [...] [M85.88] Order(s):CONSULT TO ENDOCRINOLOGY [9007] Order #: [id number]: 1 FUTURE Prescriptions as of 04/20/2024 - [...] Encounter Status:Closed by ELAINE BARRETO on 04/20/24 [facility] Office Visit Reporton 2023 Office Visit Report [facility] [address] [place] [address] OFFICE VISIT Date of Service: 04/14/24 MR#: [id number] Acct: [id number] Patient: FAUSTINO UNGER Rep #: [id number] : 1990 Provider: Dr. Rebekah Palomares MD Age/Sex: 33/M Location: [facility] Status: Signed Intake Vital Signs 03/23/24 13:11 04/14/24 14:13 Height 5 ft 8 in BP 119/81 H Blood Pressure Location Lt brachial Position Sitting Respiration 16 Pulse 64 Pulse Source NIBP Intake Visit Reasons: 2 WK BP Check Senior Science Consultant Required: No Is patient in pain?: No [...] History mcg/actuation nasal spray,suspension (Flonase Allergy Relief) ircggkfh-lnfyufyx-khhzz acid 400 tab PO 03/31/24 04/14/24 History [...] 2023) 06/01/24 09 Date Rebekah Palomares MD Cosigner Signature: Date (if applicable) CC: Dr. Rebekah Palomares MD [facility] BD DXA - AXIAL SKELETONon BD DXA - AXIAL SKELETON * * *Final Report* * * DATE OF EXAM: Apr 01 2024 10:25AM [facility] 0804 - BD DXA - AXIAL SKELETON / PROCEDURE REASON: multiple diagnoses * * * * Physician Interpretation * * * * EXAMINATION: DXA BONE DENSITOMETRY BD DXA - AXIAL SKELETON, BD DXA TRABECLR BONE SCORE (TBS) PATIENT DEMOGRAPHICS: Age: 33 years, Gender: Male SCANNER INFORMATION: DXA Model: [facility] - [employer] C [address]66 Date Scanned: 04/01/2024 10:25 AM CLINICAL HISTORY: [...] had a previous bone density in the [facility] or the previous bone density was performed on a different DXA machine (new, updated model or different location) within the [facility]. VERTEBRAL FRACTURE ASSESSMENT Not performed. TRABECULAR [...] FOR MORE INFORMATION ABOUT DIAGNOSIS AND TREATMENT: [facility] Center for Osteoporosis and Metabolic Bone Disease:? www.ccf.org/arthritis/ost eo National Osteoporosis Foundation:? www.nof.org International Society of Clinical Densitometry www.iscd.org Bus Girl: MIRIAN Transcribe Date/Time: Apr 05 2024 11:13A Dictated by : TIMOTHY BECKHAM MD This examination was interpreted and the report reviewed and electronically signed by: TIMOTHY BECKHAM MD on Apr 05 2024 11:15AM EST [id number] Normal [facility] BD DXA TRABECLR BONE SCORE ( TBS)on 04-01-2024 BD DXA TRABECLR BONE SCORE (TBS) * * *Final Report* * * DATE OF EXAM: Apr 01 2024 10:25AM [facility] 0801 - BD DXA TRABECLR BONE SCORE (TBS) / PROCEDURE REASON: multiple diagnoses * * * * Physician Interpretation * * * * EXAMINATION: DXA BONE DENSITOMETRY BD DXA - AXIAL SKELETON, BD DXA TRABECLR BONE SCORE (TBS) PATIENT DEMOGRAPHICS: Age: 33 years, Gender: Male SCANNER INFORMATION: DXA Model: [employer] - Life[employer]antage C 51518 Date Scanned: 04/01/2024 10:25 AM CLINICAL HISTORY: [...] had a previous bone density in the [facility] or the previous bone density was performed on a different DXA machine (new, updated model or different location) within the [facility]. VERTEBRAL FRACTURE ASSESSMENT Not performed. TRABECULAR [...] FOR MORE INFORMATION ABOUT DIAGNOSIS AND TREATMENT: [facility] Center for Osteoporosis and Metabolic Bone Disease:? www.ccf.org/arthritis/ost eo National Osteoporosis Foundation:? www.nof.org International Society of Clinical Densitometry www.iscd.org Bus Girl: MIRIAN Transcribe Date/Time: Apr 05 2024 11:13A Dictated by : TIMOTHY BECKHAM MD This examination was interpreted and the report reviewed and electronically signed by: TIMOTHY BECKHAM MD on Apr 05 2024 11:15AM EST [id number] Normal [facility] Basic Metabolic Profile (BMP )on 03-31-2024 BUN/CRE 9.8 RATIO Low 10-20 [facility] Comment on above: Performed By: #### L 500.4100, L500.2500 ####[facility] [address] [place], [address] CA,Total 9.5 mg/dL Normal 8.5-10.1 [facility] Comment on above: Performed By: #### L 500.4100, L500.2500 ####[facility] [address] [place], [address] Chloride [Moles/Vol] 106 mmol/L Normal 98-107 [facility] Comment on above: Performed By: #### L 500.4100, L500.2500 ####[facility] [address] [place], [address] CO2 [Moles/Vol] 27.0 mmol/L Normal 21.0-32.0 [facility] Comment on above: Performed By: #### L 500.4100, L500.2500 ####[facility] [address] [place], [address] Creatinine [Mass/Vol] 0.92 mg/dL Normal 0.70-1.30 [facility] Comment on above: Result Comment: The validity of the calculated GFR GFRAA in patients over 70 years has not been determined. Clinical correlation is essential. Performed By: #### L 500.4100, L500.2500 ####[facility] [address] [place], [address] EST GFR - AA 120 mL/min Normal >60 [facility] Comment on above: Result Comment: Afri can Bruneian GFR Calc Performed By: #### L 500.4100, L500.2500 ####[facility] [address] [place], [address] GAP 7 Normal 5-15 [facility] Comment on above: Performed By: #### L 500.4100, L500.2500 ####[facility] [address] [place], [address] GFR/1.73 sq M.predicted among non-blacks MDRD (S/P/Bld) [Vol rate/Area] 99 mL/min/{1.73_m2} Normal >60 [facility] Comment on above: Result Comment: Non- GFR Calc Performed By: #### L 500.4100, L500.2500 ####[facility] [address] [place], [address] Glucose [Mass/Vol] 102 mg/dL Normal 74-106 [facility] Comment on above: Result Comment: Fast ing Glucose result from 100 to 125 mg/dL suggests IMPAIRED HOMEOSTASIS per A.D.A. criteria. Performed By: #### L 500.4100, L500.2500 ####[facility] [address] [place], [address] Potassium [Moles/Vol] 4.2 mmol/L Normal 3.5-5.1 [facility] Comment on above: Performed By: #### L 500.4100, L500.2500 ####[facility] [address] [place], [address] Sodium [Moles/Vol] 140 mmol/L Normal 136-145 [facility] Comment on above: Performed By: #### L 500.4100, L500.2500 ####[facility] [address] [place], [address] Urea nitrogen [Mass/Vol] 9 mg/dL Normal 7-18 [facility] Comment on above: Performed By: #### L 500.4100, L500.2500 ####[facility] [address] [place], [address] Lipid Profileon 03-31-2024 Cholesterol [Mass/Vol] 202 mg/dL High 200 [facility] Comment on above: Result Comment: <200 mg/dL Desirable 200-240 mg/dL Borderline >240 mg/dL High Risk Performed By: #### L 500.4100, L500.2500 ####[facility] [address] [place], [address] Cholesterol in HDL [Mass/Vol] 45 mg/dL Normal [facility] Comment on above: Result Comment: The drugs N-Acetylcysteine and Metamizole may falsely depress this assay. Reference Range HDL <40 mg/dL Low HDL Cholesterol HDL >or= 60 mg/dL High HDL Cholesterol Performed By: #### L 500.4100, L500.2500 ####[facility] [address] [place], [address] Cholesterol in LDL [Mass/Vol] 123 mg/dL Normal 0-130 [facility] Comment on above: Performed By: #### L 500.4100, L500.2500 ####[facility] [address] [place], [address] Cholesterol in VLDL [Mass/Vol] 34 mg/dL Normal 5-40 [facility] Comment on above: Performed By: #### L 500.4100, L500.2500 ####[facility] [address] [place], [address] Triglyceride [Mass/Vol] 172 mg/dL Normal [facility] Comment on above: Result Comment: The drugs N-Acetylcysteine and Metamizole may falsely depress this assay. Serum Triglycerides Reference Interval Normal <150 mg/dL Borderline high 150 - 199 mg/dL High 200 - 499 mg/dL Very High > or = 500 mg/dL Performed By: #### L 500.4100, L500.2500 ####[facility] [address] [place], [address] Office Visit Reporton 2023 Office Visit Report [facility] [address] [place] [address] OFFICE VISIT Date of Service: 03/31/24 MR#: [id number] Acct: [id number] Patient: FAUSTINO UNGER Rep #: [id number] : 1990 Provider: Dr. Rebekah Palomares MD Age/Sex: 33/M Location: [facility] Status: Signed Intake Vital Signs 03/15/24 15:37 03/23/24 13:11 03/31/24 14:05 03/31/24 14:17 Height 5 ft 8 in 5 ft 8 in BP 134/86 H Blood Pressure Location Lt brachial Position Sitting Respiration 16 Pulse 101 H 105 H Pulse Source NIBP Intake Visit Reasons: BP CHECK Senior Science Consultant Required: No Is patient in pain?: No [...] History mcg/actuation nasal spray,suspension (Flonase Allergy Relief) ahudzzvk-lrjeuozx-lmhba acid 400 tab PO 03/31/24 03/31/24 History [...] year?: Yes (Passed out) 06/01/24902 Date Rebekah Palomares MD [facility] Signature: Date (if applicable) CC: Dr. Rebekah Palomares MD [facility] CT ABD/PEL WO IVCONon 2023 CT ABD/PEL WO IVCON * * *Final Report* * * DATE OF EXAM: Mar 30 2024 3:11PM [facility] 0531 - CT ABD/PEL WO IVCON [...] with CT kidney study with IV contrast. Bus Girl: PSCB Transcribe Date/Time: Mar 30 2024 3:14P Dictated by : DIMITRI SYKES MD This examination was interpreted and the report reviewed and electronically signed by: DIMITRI SYKES MD on Mar 30 2024 3:21PM EST [id number] Normal [facility] CT Abdomen and Pelvis WO con traston 03-30-2024 IMPRESSION: Colonic diverticulosis. Cystic lesions in the bilateral kidneys with or without calcifications. Consider further evaluation with CT kidney study with IV contrast. Bus Girl: MIRIAN Transcribe Date/Time: Mar 30 2024 3:14P Dictated by : DIMITRI SYKES MD This examination was interpreted and the report reviewed and electronically signed by: DIMITRI SYKES MD on Mar 30 2024 3:21PM [facility] DIVISION OF RADIOLOGY * * *Final Report* * * DATE OF EXAM: Mar 30 2024 3:11PM [facility] 0531 - CT ABD/PEL WO IVCON [...] clear of consolidations. DIVISION OF RADIOLOGY Provider, [facility] - 03/30/2024 * * *Final Report* * * DATE OF EXAM: Mar 30 2024 3:11PM [facility] 0531 - CT ABD/PEL WO IVCON [...] with CT kidney study with IV contrast. Bus Girl: PSCB Transcribe Date/Time: Mar 30 2024 3:14P Dictated by : DIMITRI SYKES MD This examination was interpreted and the report reviewed and electronically signed by: DIMITRI SYKES MD on Mar 30 2024 3:21PM EST [facility] Radiology Study observation (narrative) [facility] CT Abdomen and Pelvis WO con trastOrdered By: Ccf Provider on 03-30-2024 [facility] CNOVon 03-23-2024 CNOV Office Visit (GENSWS ) ----- FAUSTINO UNGER ([id number]) 1990 Date Time Provider Department 03/23/24 11:30 AM CATHI PARKS GENSWS During your visit today, we recorded [...] Last Colonoscopy: 06/26/2020 Pradeep Fernandes, Cathi Caba, PRESSURIZATION MECHANIC.COMMUNITY REINVESTMENT ACT OFFICER 03/25/2024 8:11 AM Addendum HISTORY AND PHYSICAL [...] refers he has HF. He follows with [facility]. He refers he has had consults [...] completing t (more content not included)... Normal [facility] 03-23-2024 CNPN Telephone (GENSWS) ----- CORNELFAUSTINO ([id number]) 1990 M Date Time Provider Department 03/23/24 CATHI PARKS [employer] During your visit today, we recorded the following information about you: Pradeep Fernandes RN 03/23/2024 4:47 PM Signed Medical records requested from Christine Paulino MD regarding colon issues and prior colonoscopies.Pradepe Fernandes RN Allergies As of Date: 03/23/2024 Noted Allergy Reaction ANTIHISTIMINE 06/19/2015 1 - Mental Status Change METOCLOPRAMIDE 01/28/2019 1 - Mental Status Change 14 - Other: See Comments MOBIC (MELOXICAM) 08/31/2023 10 - Anaphylaxis PROCHLORPERAZINE 01/28/2019 1 - Mental Status Change 14 - Other: See Comments SHELLFISH DERIVED 03/21/2022 6 - Diarrhea Date Reviewed: 03/23/2024 Reviewed by: Pradeep Fernandes, RN - Fully Assessed Reason for Visit: [...] Status:Closed by PRADEEP FERNANDES on 03/24/24 [facility] [facility] ----- FAUSTINO UNGER ([id number]) 1990 M Date Time Provider Department 03/23/24 [...] proceeding with upper and lower scopes in [place] Patient scheduled 03/30/[address] and aware of all steps and verbalized understanding Gabriella Betancourt Astro Technician Gabriella Betancourt 03/31/2024 11:30 AM Signed Per cathi Parks patient appropriate to proceed with scopes in [place] pending cardiac clearance results Patient scheduled with Dr. Dangelo 07/02/2024 Cardiac clearance form sent to [facility] Gabriella Betancourt Astro Technician Gabriella Betancourt 04/19/2024 8:44 AM Signed Cardiac clearance received - patient cleared to proceed with scope in [place] with Dr. Dangelo on 07/02/2024 - see [...] ASHISH - Fully Assessed Reason for Visit: Patient [...] Penile pain [N48.89] 12/04/2015 Encounter Status:Closed by MITCHELL LANDAVERDE [facility] ----- FAUSTINO UNGER ([id number]) 1990 M Date Time Provider Department 03/18/24 MEAGHAN BLOOM During your visit today, we recorded the following information about you: Meaghan Bloom, 03/18/2024 5:36 PM Signed Can let him [...] PCP regarding his testosterone being normal. Meaghan Bloom, DO Allergies As of Date: 03/18/2024 Noted [...] Status:Closed by JADYN SNOW on 03/19/24 Normal [facility] 1,25-dihydroxyvitamin D3 [Ma ss/Vol]on 03-15-2024 1,25 Dihydroxy Vitamin Total 40.0 pg/mL 19.9 - 79.3 pg/mL [facility] Interpretation and review of laboratory results Normal [facility] VIT D1,25 DIHYDROXY 40.0 pg/mL Normal 19.9-79.3 [facility] Comment on above: Order Comment: Speci men Type: BLOOD SPECIMENOrdering Facility: [facility] Address: [address] [place] [address] Performed By: #### 1 649-3, 1990-09 ####[facility] [id number] [place] [id number] [place] 25(OH)D3 SerPl-ncon 2023 25-hydroxyvitamin D3 [Mass/Vol] 35.5 ng/mL Normal 31.0-80.0 [facility] Comment on above: Order Comment: Speci men Type: BLOOD SPECIMENOrdering Facility: [facility] Address: [address] [place] [address] Performed By: #### 1 649-3, 1990-09 ####[facility] [id number] [place] [id number] [place] 25-hydroxyvitamin D3 [Mass/V ol]on 03-15-2024 Interpretation and review of laboratory results Normal [facility] CNOVSPon 03-15-2024 CNOVSP Visit (SP) Office (SARMAD) ----- FAUSTINO UNGER ([id number]) 1990 M Date Time Provider Department 03/15/24 [...] on head with a vase. ED in [place]. Scalp bleed. No sutures. Had a CT [...] in right testicle. Had US. Went to [facility] ED. Sees Dr. Downs at [facility]. Started on Biktarvy. He recalls [...] in the process of moving back to [place]. 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 Had blood patch. Not following with nephrology since moving back to [place] last 2-3 years. Was seeing stock repairer in [place]. 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 Normal [facility] CNPPeggy 03-15-2024 CNPN Telephone (SARMAD) ----- FAUSTINO UNGER ([id number]) 1990 M Date Time Provider Department 03/15/24 MEAGHAN BLOOM During your visit today, we recorded the following information about you: Elaine Barreto 03/15/2024 2:49 PM Signed Check out comments: Labs and xray today. - COMPLETED Bone density when able. - SCHEDULED Referral to general surgery for surveillance colonoscopy. - SCHEDULED Referral to Dr. Skye Lopez at [facility] for polycystic kidney disease (please fax OV note and lab results). Follow up TBD based on results. Aminta Ramirez 03/16/2024 8:54 AM Signed Referral, OV note and labs faxed to Dr. Skye Lopez at [facility]. Allergies As of Date: 03/15/2024 [...] Status:Closed by AMINTA RAMIREZ on 03/16/24 Normal [facility] IMMUNOFIXATION SCREEN, SERUM on 03-15-2024 MPA RESULT No M protein is identified. Normal No M protein is identified. [facility] Comment on above: Order Comment: Speci men Type: BLOOD SPECIMENOrdering Facility: [facility] Address: [address] [place] [address] [place] [address] Performed By: #### I [facility] ####[facility] LABCLIA [id number] [place] [address] [place] STAFF REVIEW (MPA) Reviewed by Ochoa Arias MD, Ph.D ([id number]) Normal [facility] Comment on above: Order Comment: Speci men Type: BLOOD SPECIMENOrdering Facility: [facility] Address: [address] [place] [address] Performed By: #### I [facility] ####[facility] LABCLIA [id number] [place] [address] [place] IMMUNOGLOBULINS,IGG,IGA,IGMo n 03-15-2024 IgA [Mass/Vol] 263 mg/dL Normal 70-400 [facility] Comment on above: Order Comment: Speci men Type: BLOOD SPECIMENOrdering Facility: [facility] Address: [address] [place] [address] Performed By: #### S ERIMM ####[facility] LABIA [id number] [place] [address] [place] IgG [Mass/Vol] 800 mg/dL Normal 700-1600 [facility] Comment on above: Order Comment: Speci men Type: BLOOD SPECIMENOrdering Facility: [facility] Address: [address] [place] [address] Performed By: #### S ERIMM ####[facility] LABIA [id number] [place] [address] [place] IgM [Mass/Vol] 150 mg/dL Normal 40-230 [facility] Comment on above: Order Comment: Speci men Type: BLOOD SPECIMENOrdering Facility: [facility] Address: [address] [place] [address] Performed By: #### S ERIMM ####[facility] LABIA [id number] [place] [address] [place] KAPPA/CHOUDHARY,FREE,SERon 2023 Immunoglobulin light chains.kappa.free (S) [Mass/Vol] 17.0 mg/L Normal 3.3-19.4 [facility] Comment on above: Order Comment: Speci men Type: BLOOD SPECIMENOrdering Facility: [facility] Address: [address] [place] [address] Result Comment: Rare ly, increased serum free light chains levels may not be detected or accurately quantified due to prozone phenomenon or in high viscosity samples using this immunoturbidimetric assay. Correlation with other laboratory results and clinical findings is recommended. The [place] Free Light Chain was performed using the Binding Site Optilite immunoturbidimetric method. Result obtained with different assay methods or kits cannot be used interchangeably. Performed By: #### K LFRS ####[facility] LABCLIA [id number] [place] [address] [place] Immunoglobulin light chains.kappa/Immunoglo bulin light chains.lambda (S) [Mass ratio] 1.06 Normal 0.26-1.65 [facility] Comment on above: Order Comment: Speci men Type: BLOOD SPECIMENOrdering Facility: [facility] Address: [address] [place] [address] Performed By: #### K LFRS ####[facility] LABCLIA [id number] [place] [address] [place] Immunoglobulin light chains.lambda.free [Mass/Vol] 16.0 mg/L Normal 5.7-26.3 [facility] Comment on above: Order Comment: Speci men Type: BLOOD SPECIMENOrdering Facility: [facility] Address: [address] [place] [address] Result Comment: Rare ly, increased serum free [...] used interchangeably. Performed By: #### K LFRS ####[facility] LABCLIA [id number] [place] [address] [place] PROTEIN ELECTROPHORESIS SERU M (P)on 03-15-2024 Albumin [Mass/Vol] 4.57 g/dL Normal 3.43-5.41 [facility] Comment on above: Order Comment: Speci men Type: BLOOD SPECIMENOrdering Facility: [facility] Address: [address] [place] [address] Performed By: #### L [id number] ####[facility] LABIA [id number] [place] [address] [place] Alpha 1 globulin Elph [Mass/Vol] 0.31 g/dL Normal 0.18-0.43 [facility] Comment on above: Order Comment: Speci men Type: BLOOD SPECIMENOrdering Facility: [facility] Address: [address] [place] [address] Performed By: #### L [id number] ####[facility] LABIA [id number] [place] [address] [place] Alpha 2 globulin Elph [Mass/Vol] 0.69 g/dL Normal 0.42-0.98 [facility] Comment on above: Order Comment: Speci men Type: BLOOD SPECIMENOrdering Facility: [facility] Address: [address] [place] [address] Performed By: #### L [id number] ####[facility] LABIA [id number] [place] [address] [place] Beta globulin Elph [Mass/Vol] 0.88 g/dL Normal 0.61-1.17 [facility] Comment on above: Order Comment: Speci men Type: BLOOD SPECIMENOrdering Facility: [facility] Address: [address] [place] [address] Performed By: #### L [id number] ####[facility] LABIA [id number] [place] [address] [place] Gamma globulin Elph [Mass/Vol] 0.75 g/dL Normal 0.53-1.51 [facility] Comment on above: Order Comment: Speci men Type: BLOOD SPECIMENOrdering Facility: [facility] Address: [address] [place] [address] Performed By: #### L [id number] ####[facility] LABCLIA [id number] [place] [address] [place] M-PROTEIN LOCATION Normal [facility] Comment on above: Order Comment: Speci men Type: BLOOD SPECIMENOrdering Facility: [facility] Address: [address] [place] [address] Result Comment: Not Applicable. Performed By: #### L [id number] ####[facility] LABCLIA [id number] [place] [address] [place] Protein Fractions [Interp] No definitive M protein is identified on protein electrophoresis. Normal No definitive M protein is identified on protein electrophore sis. [facility] Comment on above: Order Comment: Speci men Type: BLOOD SPECIMENOrdering Facility: [facility] Address: [address] [place], [place] [address] Performed By: #### L [id number] ####[facility] LABIA [id number] [place] [address] [place] Protein.monoclonal Elph [Mass/Vol] 0.00 g/dL Normal <=0.00 [facility] Comment on above: Order Comment: Speci men Type: BLOOD SPECIMENOrdering Facility: [facility] Address: [address] [place], [place] [address] Performed By: #### L [id number] ####[facility] LABIA [id number] [place] [address] [place] SPE STAFF REVIEW Reviewed by Ochoa Arias MD, Ph.D ([id number]) Normal [facility] Comment on above: Order Comment: Speci men Type: BLOOD SPECIMENOrdering Facility: [facility] Address: [address] [place] [address] Performed By: #### L [id number] ####[facility] LABIA [id number] [place] [id number] [place] PTH-Intact SerPl-mCncon 08- Parathyrin.intact [Mass/Vol] 25 pg/mL Normal 15-65 [facility] Comment on above: Order Comment: Speci men Type: BLOOD SPECIMENOrdering Facility: [facility] Address: [address] [place] [address] Performed By: #### 2 885-2, 273-8, 8 ####[facility] [id number] [place] [address] [place] Prot SerPl-mCncon 03-15-2024 Protein [Mass/Vol] 7.2 g/dL Normal 6.3-8.0 [facility] Comment on above: Order Comment: Speci men Type: BLOOD SPECIMENOrdering Facility: [facility] Address: [address] [place] [address] Performed By: #### 2 885-2, 2738, 8 ####[facility] [id number] [place] [id number] [place] Testost SerPl-mCncon 024 Testosterone [Mass/Vol] 269 ng/dL Normal 193-824 [facility] Comment on above: Order Comment: Speci men Type: BLOOD SPECIMENOrdering Facility: [facility] Address: [address] [place], [place] [address] Result Comment: A te stosterone level in the 193-320 ng/dL range with associated clinical symptoms is considered low and may indicate hypogonadism (from NEJ 2010 363:123-135). Results >320 ng/dL are considered normal. Performed By: #### 2 885-2, 2731-8, 298-8 ####[facility] LABIA [id number] [place] [id number] [place] VASC ENDO GROWTH FACTORon VASC ENDO GROWTH FACTOR 63 pg/mL Normal 9-86 [facility] Comment on above: Order Comment: Speci men Type: BLOOD SPECIMENOrdering Facility: [facility] Address: [address] [place] [address] Result Comment: INTE RPRETIVE INFORMATION: Vascular Endothelial G Factor This assay is performed using the [employer] Chemilumin[employer] EIA kit. Values obtained with different assay methods or kits cannot be used interchangeably. This test was developed and its performance characteristics determined by [facility]. It has not been cleared or approved by the [place] Food and Drug Administration. This test was performed in a CLIA certified laboratory and is intended for clinical purposes. Performed By: [facility] [address] [place] [address] Sales Stock Associate: Gael Louis MD, PhD CLIA Number: [id number] Performed By: #### V EGF ####[facility] [id number] [place] [address] VITAMIN D 25 HYDROXYon 03-15 25-hydroxyvitamin D3 [Mass/Vol] 35.5 ng/mL 31.0 - 80.0 ng/mL [facility] XR BONE SURVEY ROUTINEon XR BONE [...] No radiographic evidence of suspicious osseous lesion. Bus Girl: PSCB Transcribe Date/Time: Mar 18 2024 12:31P Dictated by : WASHINGTON SHARPE DO This examination was interpreted and the report reviewed and electronically signed by: WASHINGTON SHARPE DO on Mar 18 2024 12:38PM EST [id number] Normal [facility] ALCOHOL-BLOOD MEDICALon 06- Ethanol [Mass/Vol] 5 mg/dL Normal 0 - 50 [facility] Comment on above: Performed By: #### 2 02850 #### [place] [address] CBC + DIFFon 01-04-2024 Baso # 0.02 x10EE3/UL Normal 0.00 - 0.10 [facility] Comment on above: Performed By: #### 2 55727 #### [facility],[address] [place], [place] [id number] Basophils/100 WBC (Bld) 0.3 % Normal 0.0 - 2.0 [facility] Comment on above: Performed By: #### 2 14917 #### [place] [address] CBC + DIFF Normal [facility] Comment on above: Result Comment: CBC- COMPLETE BLOOD COUNT Performed By: #### 2 97542 #### [facility],[address] [place] [address]252 EO # 0.23 x10EE3/UL Normal 0.00 - 0.50 [facility] Comment on above: Performed By: #### 2 99984 #### [facility],[address] [place] [address] 77092 Eosinophils/100 WBC (Bld) 3.3 % Normal 0.0 - 7.0 [facility] Comment on above: Performed By: #### 2 26244 #### [facility],[address] [place] [address] Erythrocyte distribution width (RBC) [Ratio] 13.6 % Normal 12.0 - 15.6 [facility] Comment on above: Performed By: #### 2 61328 #### [facility],[address] [place] [address] Hematocrit (Bld) [Volume fraction] 50.8 % Normal 40.0 - 52.0 [facility] Comment on above: Performed By: #### 2 74624 #### [facility],[address] [place] [address] Hemoglobin (Bld) [Mass/Vol] 17.2 g/dL Normal 13.0 - 17.5 [facility] Comment on above: Performed By: #### 2 44793 #### [facility],[address] [place] [address] Lymph # 1.84 x10EE3/UL Normal 0.80 - 2.80 [facility] Comment on above: Performed By: #### 2 59041 #### [facility],[address] [place], [place] [id number] Lymphocytes/100 WBC (Bld) 26.6 % Normal 20.0 - 45.0 [facility] Comment on above: Performed By: #### 2 01304 #### [facility],[address] [place], [place] [id number] MANUAL DIFF N/A Normal [facility] Comment on above: Performed By: #### 2 48317 #### [facility],[address] [place] [address] 99089 MCH (RBC) [Entitic mass] 32 pg Normal 27 - 33 [facility] Comment on above: Performed By: #### 2 49240 #### [facility],[address] [place] [address]751 MCHC 34 X10 3 Normal 32 - 36 [facility] Comment on above: Performed By: #### 2 20366 #### [facility],[address] [place] [address] 13604 MCV (RBC) [Entitic vol] 95 fL Normal 81 - 98 [facility] Comment on above: Performed By: #### 2 08904 #### [facility],[address] [place] [address] 82286 Richardson # 0.90 x10EE3/UL Normal 0.20 - 1.00 [facility] Comment on above: Performed By: #### 2 13345 #### [facility],[address] [place] [address] 16496 MONOS % 13.0 % High 0.0 - 10.0 [facility] Comment on above: Performed By: #### 2 27954 #### [facility],[address] [place] [address] 52328 Morphology Lit (Bld) [Interp] N/A Normal [facility] Comment on above: Performed By: #### 2 75729 #### [facility],[address] [place] [address] 22554 Neut # 3.93 x10EE3/UL Normal 1.50 - 7.10 [facility] Comment on above: Performed By: #### 2 45706 #### [facility],[address] [place] [address] 68000 Neutrophils/100 WBC (Bld) 56.8 % Normal 46.0 - 76.0 [facility] Comment on above: Performed By: #### 2 34490 #### [facility],[address] [place] [address] 69532 PLATELET 303 x10EE3/UL Normal 150 - 450 [facility] Comment on above: Performed By: #### 2 37802 #### [facility],[address] [place] [address] 32173 Platelet mean volume (Bld) [Entitic vol] 6.5 fL Normal 6.4 - 10.5 [facility] Comment on above: Result Comment: AUTO MATED DIFFERENTIAL Performed By: #### 2 75310 #### [facility],[address] [place] [address] 96622 RBC 5.32 x 10EE6/UL Normal 4.50 - 6.00 [facility] Comment on above: Performed By: #### 2 58338 #### [facility],[address] [place] [address] 58450 WBC 6.9 x 10EE3/UL Normal 4.5 - 10.8 [facility] Comment on above: Performed By: #### 2 96749 #### [facility],[address] [place] [address] 38357 CMP with eGFRon 01-04-2024 AGE 33 years Normal [facility] Comment on above: Performed By: #### 2 04180 #### [facility],[address] [place] [address] 85439 Albumin [Mass/Vol] 3.9 g/dL Normal 3.4 - 5.0 [facility] Comment on above: Performed By: #### 2 96173 #### [facility],[address] [place] [address] 82955 Albumin/Globulin [Mass ratio] 1.2 {ratio} Normal 0.9 - 1.6 [facility] Comment on above: Performed By: #### 2 91310 #### [facility],[address] [place] [address] 14809 ALK PHOS 103 U/L Normal 46 - 116 [facility] Comment on above: Performed By: #### 2 99197 #### [facility],[address] [place] [address] 98118 ALT [Catalytic activity/Vol] 29 U/L Normal 16 - 63 [facility] Comment on above: Performed By: #### 2 27141 #### [facility],[address] [place] [address] 07070 Anion gap [Moles/Vol] 12 mmol/L Normal 10 - 20 [facility] Comment on above: Performed By: #### 2 94228 #### [facility],[address] [place] [address] 15185 AST [Catalytic activity/Vol] 18 U/L Normal 15 - 37 [facility] Comment on above: Performed By: #### 2 63479 #### [facility],[address] [place] [address] 27269 B/C RATIO 12 ratio Normal 0 - 30 [facility] Comment on above: Performed By: #### 2 83042 #### [facility],[address] [place] [address] 93219 Bilirubin [Mass/Vol] 0.3 mg/dL Normal 0.2 - 1.0 [facility] Comment on above: Performed By: #### 2 64517 #### [facility],[address] [place] [address] 13711 Calcium [Mass/Vol] 8.8 mg/dL Normal 8.5 - 10.1 [facility] Comment on above: Performed By: #### 2 57375 #### [facility],[address] [place] [address] 96498 Chloride [Moles/Vol] 103 mmol/L Normal 98 - 107 [facility] Comment on above: Performed By: #### 2 06792 #### [facility],[address] [place] [address] 03376 CMP with eGFR Normal [facility] Comment on above: Result Comment: COMP REHENSIVE METABOLIC PANEL Performed By: #### 2 11237 #### [facility],[address] [place] [address] 98223 CO2 [Moles/Vol] 26.7 mmol/L Normal 21.0 - 32.0 [facility] Comment on above: Performed By: #### 2 22625 #### [facility],[address] [place] [address] 93772 Creatinine [Mass/Vol] 0.83 mg/dL Normal 0.70 - 1.30 [facility] Comment on above: Performed By: #### 2 24586 #### [facility],[address] [place] [address] 07031 GFR/1.73 sq M.predicted among non-blacks MDRD (S/P/Bld) [Vol rate/Area] mL/min/{1.73_m2} Normal 60 - 999 [facility] Comment on above: Performed By: #### 2 21181 #### [facility],[address] [place] [address] 59824 Result Comment: ACCO RDING TO THE NATIONAL KIDNEY DISEASE EDUCATION PROGRAM(NKDE), A NORMAL eGFR IS A VALUE GREATER THAN OR EQUAL TO 60 ML/MIN/1.73 SQ METERS. CHRONIC KIDNEY DISEASE: <60mL/MIN/1.73 SQ METERS KIDNEY FAILURE: <15mL/MIN/1.73 SQ METERS THIS TEST SHOULD ONLY BE USED FOR PATIENTS 18 YEARS OF AGE AND OLDER. Globulin (S) [Mass/Vol] 3.3 g/dL Normal 1.5 - 3.8 [facility] Comment on above: Performed By: #### 2 81806 #### [facility],[address] [place] [address] 71780 Glucose [Mass/Vol] 122 mg/dL High 74 - 106 [facility] Comment on above: Performed By: #### 2 57676 #### [facility],[address] [place] [address] 88031 Potassium [Moles/Vol] 4.0 mmol/L Normal 3.5 - 5.1 [facility] Comment on above: Performed By: #### 2 43695 #### [facility],[address] [place] [address] 03762 Protein [Mass/Vol] 7.2 g/dL Normal 6.4 - 8.2 [facility] Comment on above: Performed By: #### 2 69281 #### [facility],[address] [place] [address] 07130 Sodium [Moles/Vol] 138 mmol/L Normal 136 - 145 [facility] Comment on above: Performed By: #### 2 35589 #### [facility],[address] [place] [address] Urea nitrogen [Mass/Vol] 10 mg/dL Normal 7 - 18 [facility] Comment on above: Performed By: #### 2 74816 #### [facility],[address] [place] [address] CORONAVIRUS (SARS) ANTIGEN T ESTon 01-04-2024 EXTERNAL QC DONE? YES Normal [facility] Comment on above: Performed By: #### 2 58626 #### [facility],[address] [place] [address] INTERNAL CONTROL PASS Normal [facility] Comment on above: Performed By: #### 2 14933 #### [facility],[address] [place] [address] SARS ANTIGEN Negative Normal NORMAL: NEGATIVE [facility] Comment on above: Performed By: #### 2 36879 #### [facility],[address] [place] [address] SEND TO ? YES Normal [facility] Comment on above: Result Comment: SARS -CoV-2 THIS TEST IS BEING USED UNDER THE FDA EUA PROCEDURE. THIS ASSAY HAS BEEN VALIDATED AT [facility] FOR USE WITH NASAL AND NASOPHARYNGEAL SWAB [...] PUBLIC HEALTH AUTHORITIES. Performed By: #### 2 45801 #### [facility],[address] [place] [address] DRUG SCREEN URINE MEDICon AMPHETAMINES Positive [facility] Comment on above: Performed By: #### 2 14253 #### [facility],[address] [place] [address] 48553 B-DIAZEPINES Negative Normal [facility] Comment on above: Performed By: #### 2 03878 #### [facility],[address] [place] [address] 15032 BARBITURATES Negative [facility] Comment on above: Performed By: #### 2 84811 #### [facility],[address] [place] [address] 26795 COCAINE Negative [facility] Comment on above: Performed By: #### 2 24591 #### [facility],[address] [place], [place] [address] DRUG SCREEN URINE MEDIC Normal [facility] Comment on above: Result Comment: DRUG SCREEN - URINE Performed By: #### 2 29542 #### [facility],[address] [place] [address] 69122 METHADONE Negative [facility] Comment on above: Performed By: #### 2 64668 #### [facility],[address] [place] [address],[facility] [address] OPIATES Negative Normal [facility] Comment on above: Performed By: #### 2 74715 #### [facility],[address] [place] [address],[facility] [address] PCP Negative Normal [facility] Comment on above: Performed By: #### 2 02400 #### [facility],[address] [place] [address],[facility] [address] THC Negative Normal [facility] Comment on above: Result Comment: QIANA ENTS RECEIVING PROTON PUMP INHIBITORS MAY DEMONSTRATE FALSE POSITIVE THC/CANNABINOID RESULTS. AN ALTERNATIVE CONFIRMATORY METHOD SHOULD BE CONSIDERED TO VERIFY POSITIVE RESULTS. Performed By: #### 2 15765 #### [facility],[address] [place] [address] 18856 URINALYSISon 01-04-2024 Amorphous NONE Normal [facility] Comment on above: Performed By: #### 2 92361 #### [facility],[address] [place] [address] 65204 Bacteria NONE Normal [facility] Comment on above: Performed By: #### 2 68662 #### [facility],[address] [place] [address] 44433 Bilirubin Ql (U) Negative Normal NORMAL: NEGATIVE [facility] Comment on above: Performed By: #### 2 26798 #### [facility],[address] [place] [address] 85276 Casts NONE Normal [facility] Comment on above: Performed By: #### 2 89051 #### [facility],[address] [place] [address] 61178 Clarity (U) clear Normal NORMAL: CLEAR [facility] Comment on above: Performed By: #### 2 90875 #### [facility],[address] [place] [address] 46270 Color (U) yellow Normal NORMAL: YELLOW [facility] Comment on above: Performed By: #### 2 83955 #### [facility],[address] [place] [address] 28420 Crystals LM Nom (Urine sed) NONE Normal [facility] Comment on above: Performed By: #### 2 86269 #### [facility],[address] [place] [address] 21888 Epi Cells NONE Normal [facility] Comment on above: Performed By: #### 2 17450 #### [facility],[address] [place] [address] 19529 Glucose Ql (U) NORM Normal NORMAL: NORMAL [facility] Comment on above: Performed By: #### 2 02206 #### [facility],[address] [place] [address] 60106 Hemoglobin Ql (U) Negative Normal NORMAL: NEGATIVE [facility] Comment on above: Performed By: #### 2 71255 #### [facility],[address] [place] [address] 59467 Ketone Negative Normal NORMAL: NEGATIVE [facility] Comment on above: Performed By: #### 2 95704 #### [facility],[address] [place] [address] 34336 Leukocytes 25 Abnormal NORMAL: NEGATIVE [facility] Comment on above: Performed By: #### 2 48074 #### [facility],[address] [place] [address] 79305 Mucous NONE Normal [facility] Comment on above: Performed By: #### 2 06461 #### [facility],[address] [place] [address] 24179 Nitrite Ql (U) Negative Normal NORMAL: NEGATIVE [facility] Comment on above: Performed By: #### 2 58102 #### [facility],[address] [place] [address] 37234 pH (U) 8 [pH] Normal NORMAL: 5.0-8.0 [facility] Comment on above: Performed By: #### 2 27005 #### [facility],[address] [place] [address] Protein Ql (U) Negative Normal NORMAL: NEGATIVE [facility] Comment on above: Performed By: #### 2 50664 #### [facility],[address] [place] [address] Rbc NONE Normal 0-3/hpf [facility] Comment on above: Performed By: #### 2 06917 #### [facility],[address] [place] [address] 1.010 Normal NORMAL: 1.010-1.030 [facility] Comment on above: Performed By: #### 2 85687 #### [facility],[address] [place] [address] Specimen Type UNSPECIFIED Normal [facility] Comment on above: Performed By: #### 2 14859 #### [facility],[address] [place] [address] Urinalysis dipstick W Reflex Microscopic panel (U) SEE BELOW Normal [facility] Comment on above: Result Comment: MICR OSCOPIC Performed By: #### 2 76112 #### [facility],[address] [place] [address] Urobilinog 1 Abnormal NORMAL: NORMAL [facility] Comment on above: Performed By: #### 2 31883 #### [facility],[address] [place] [address] Wbc 1-5 Normal 0-5/hpf [facility] Comment on above: Performed By: #### 2 69659 #### [facility],[address] [place] [address] Yeast NONE Normal [facility] Comment on above: Performed By: #### 2 42949 #### [facility],[address] [place] [address] Absolute lymphocyte countOrd ered By: Frank Cole on 11-26-2023 Lymphocytes Auto (Unsp spec) [#/Vol] 2.94 10*3/uL 0.83-4.51 [facility] Automated lymphocyte count a s percentage of total leukocytesOrdered By: Frank Cole on 11-26-2023 Lymphocytes/100 WBC Auto (Unsp spec) 37.8 % 19-41 [facility] Basophil percentageOrdered B y: Frank Cole on 11-26-2023 Basophils/100 WBC (Bld) 0.5 % 0-1 [facility] Chloride [Moles/Vol] 108 mmol/L 98-107 [facility] Eosinophils/100 WBC (Bld) 3.3 % 0-5 [facility] Glucose [Mass/Vol] 94 mg/dL 74-106 [facility] Hemoglobin (Bld) [Mass/Vol] 14.7 g/dL 13.0-16.5 [facility] Monocytes/100 WBC (Bld) 11.7 % 0-10 [facility] Neutrophils (Bld) [#/Vol] 3.6 10*3/uL 2.0-7.7 [facility] Neutrophils/100 WBC (Bld) 46.4 % 47-70 [facility] Potassium [Moles/Vol] 4.1 mmol/L 3.5-5.1 [facility] Sodium [Moles/Vol] 140 mmol/L 136-145 [facility] WBC (Bld) [#/Vol] 7.8 10*3/uL 4.4-11.0 [facility] Determination of erythrocyte mean corpuscular volume (MCV)Ordered By: Frank Cole on 11-26-2023 MCV (RBC) [Entitic vol] 95.0 fL 80-94 [facility] Erythrocyte distribution wid th ratioOrdered By: Frank Cole on 11-26-2023 Erythrocyte distribution width (RBC) [Ratio] 14.0 % 11.6-14.6 [facility] Erythrocyte distribution wid th standard deviationOrdered By: Frank Cole on 11-26-2023 Erythrocyte distribution width (RBC) [Entitic vol] 48.4 fL 35.1-43.9 [facility] Hematocrit Auto (Bld) [Volum e fraction]Ordered By: Frank Cole on 11-26-2023 Hematocrit (Bld) [Volume fraction] 44.1 % 40-54 [facility] Immature granulocytes/100 WB C Auto (Bld)Ordered By: Frank Cole on 11-26-2023 Immature granulocytes/100 WBC (Bld) 0.300 % 0.0-0.9 [facility] Comment on above: IG% - Immature Granu locytes (promyelocytes, myelocytes and metamyelocytes) > 1% indicates that a LEFT SHIFT is Present. Laboratory - Chemistry and C hemistry - challengeOrdered By: Frank Cole on 11-26-2023 CO2 [Moles/Vol] 28.0 mmol/L 21.0-32.0 [facility] Urea nitrogen/Creatinine [Mass ratio] 8.4 mg/mg 10-20 [facility] Laboratory - Drug toxicology Ordered By: Frank Cole on 11-26-2023 Amphetamines Ql (U) Positive <1000 ng/mL [facility] Benzodiazepines Ql (U) Negative < 200 ng/mL [facility] Cannabinoids Screen Ql (U) Negative < 50 ng/mL [facility] Cocaine Ql (U) Negative < 300 ng/mL [facility] Opiates Ql (U) Negative < 300 ng/mL [facility] Laboratory - Hematology and Cell countsOrdered By: Frank Cole on 11-26-2023 MCH (RBC) [Entitic mass] 31.7 pg 27.0-32.0 [facility] MCHC (RBC) [Mass/Vol] 33.3 g/dL 32-36 [facility] Nucleated RBC/100 WBC (Bld) [Ratio] 0 % 0-5 [facility] Platelet mean volume (Bld) [Entitic vol] 8.4 fL 6.2-12.0 [facility] Platelets (Bld) [#/Vol] 316 10*3/uL 150-450 [facility] No Panel InformationOrdered By: Frank Cole on 11-26-2023 Estimated GFR (MDRD) Amer 101 mL/min >60 [facility] Comment on above: GFR Calc Estimated GFR (MDRD) Non-Af Amer 84 mL/min >60 [facility] Comment on above: Non- GFR Calc Ethyl Alcohol Level < 3.0 mg/dL [facility] Comment on above: The serum:whole bloo d ethanol ratio is approximately 1.14and varies slightly with hematocrit. Medical Alcohol reference interval and critical value innon-tolerant individuals; 50 - 100 Impairment 100 Intoxication 100 - 250 Severe Poisoning 250 - 400 Deep/possible fatal coma MDMA (Ecstasy) Screen Positive < 500 ng/mL [facility] Urine Barbiturates Screen Negative < 200 ng/mL [facility] Urine Drug Screen Comment [facility] Comment on above: CONFIRMATORY TESTING FOR ALL [...] Methadone Screen Negative < 300 ng/mL [facility] RBC Auto (Bld) [#/Vol]Ordere d By: Frank Cole on 11-26-2023 RBC (Bld) [#/Vol] 4.64 10*6/uL 4.6-6.2 [facility] Serum or plasma calcium jazlyn urement (mass/volume)Ordered By: Frank Cole on 11-26-2023 Calcium [Mass/Vol] 9.7 mg/dL 8.5-10.1 [facility] Serum or plasma creatinine m easurement (mass/volume)Ordered By: Frank Cole on 11-26-2023 Creatinine [Mass/Vol] 1.07 mg/dL 0.70-1.30 [facility] Comment on above: The validity of the calculated GFR & GFRAA in patients over 70 years has not been determined. Clinical correlation is essential. Serum or plasma urea nitroge n measurement (mass/volume)Ordered By: Frank Cole on 11-26-2023 Urea nitrogen [Mass/Vol] 9 mg/dL 7-18 [facility] Thin prep Papanicolaou smear with manual screeningOrdered By: Frank Cole on 11-26-2023 Thin prep Papanicolaou smear with manual screening 4 5-15 [facility] Urine phencyclidine (PCP) de tectionOrdered By: Frank Cole on 11-26-2023 Phencyclidine Ql (U) Negative < 25 ng/mL [facility] Activated partial thrombopla stin time (aPTT) in platelet poor plasma by coagulation aOrdered By: Tommy Swanson on 11-13-2023 aPTT Coag (PPP) [Time] 28.7 s 25.1-36.5 [facility] Comment on above: A hematocrit value g reater than 55% may lead to inaccurate results in coagulation testing. Patients having hematocrit values >55% require a special collection tube for coagulation studies. Please contact the laboratory at [phone] for redraw instructions. Alanine aminotransferase [En zymatic activity/volume] in Serum or PlasmaOrdered By: Tommy Swanson on 11-13-2023 ALT [Catalytic activity/Vol] 15 U/L 7-52 [facility] Albumin [Mass/volume] in Ser um or Plasma by Bromocresol green (BCG) dye binding methoOrdered By: Tommy Swanson on 11-13-2023 Albumin BCG dye [Mass/Vol] 4.0 g/dL 3.5-5.7 [facility] Alkaline phosphatase [Enzyma tic activity/volume] in Serum or PlasmaOrdered By: Tommy Swanson on 11-13-2023 ALP [Catalytic activity/Vol] 60 U/L 34-104 [facility] Aspartate aminotransferase [ Enzymatic activity/volume] in Serum or PlasmaOrdered By: Tommy Swanson on 11-13-2023 AST [Catalytic activity/Vol] 14 U/L 13-39 [facility] Automated erythrocytes count in urine sediment (number/area)Ordered By: Tommy Swanson on 11-13-2023 RBC Auto (Urine sed) [#/Area] 0-1 [HPF] 0-4 [facility] Automated leukocytes count i n urine sediment (number/area)Ordered By: Tommy Swanson on 11-13-2023 WBC Auto (Urine sed) [#/Area] 3-4 [HPF] 0-4 [facility] B-Type Natriuretic Peptideon 11-13-2023 Natriuretic peptide B (Bld) [Mass/Vol] 18.0 pg/mL Normal 5-100 [facility] Comment on above: Result Comment: PERF ORMED BY: [place] [address] PATHOLOGIST SUPERVISOR [employer] NASIR TOBAR M.D. Performed By: #### B PRECISION LENS TECHNICIAN, HS TROP, PT, PTT, LIPASE, CK, CMP, CBC #### [address] Basophils Auto (Bld) [#/Vol] Ordered By: Tommy Swanson on 11-13-2023 Basophils (Bld) [#/Vol] 0.1 10*3/uL 0.0-0.2 [facility] Basophils/100 WBC Auto (Bld) Ordered By: Tommy Swanson on 11-13-2023 Basophils/100 WBC (Bld) 1.0 % . [facility] Bilirubin Test strip Ql (U)O rdered By: Tommy Swanson on 11-13-2023 Bilirubin Ql (U) 1+ Negative [facility] Bilirubin.total [Mass/volume ] in Serum or PlasmaOrdered By: Tommy Swanson on 11-13-2023 Bilirubin [Mass/Vol] 0.5 mg/dL 0.3-1.0 [facility] CT abdomen pelvis w conon CT abdomen pelvis w con [facility] [place] [address] CT Scan Report Signed Patient: Faustino Unger MR#: [id number] : 1990 Acct:[id number] Age/Sex: 33 / M ADM Date: 11/13/23 Loc: ER Room: Type: [facility] ER Attending Dr: Copies to: Tommy Swanson DO Ordering Provider: Tommy Swanson DO Date of Service: 11/13/23 CT/CT angio chest PE protocol: cp ([id number]) CT/CT abdomen pelvis w con: upper abd [...] Teresa Ocampo M.D.11/13/2023 1:02 PM Dictation Location: [place] [address] Transcribed By: SHANKAR 11/13/23 1302 Dictated By: Teresa Ocampo MD 11/13/23 1252 Signed By: 11/13/23 1302 Normal [facility] Calcium [Mass/volume] in Ser um or PlasmaOrdered By: Tommy Swanson on 11-13-2023 Calcium [Mass/Vol] 9.0 mg/dL 8.6-10.3 [facility] Carbon dioxide, total [Moles /volume] in Serum or PlasmaOrdered By: Tommy Swanson on 11-13-2023 CO2 [Moles/Vol] 26.7 mmol/L 21.0-31.0 [facility] Chloride [Moles/volume] in S miles or PlasmaOrdered By: Tommy Swanson on 11-13-2023 Chloride [Moles/Vol] 107 mmol/L 98-107 [facility] Color Auto (U)Ordered By: Hank Swanson on 11-13-2023 Color (U) Dark yellow Yellow [facility] Complete Blood Count Auto Di ffon 11-13-2023 Basophils (Bld) [#/Vol] 0.1 10*3/uL Normal 0.0-0.2 [facility] Comment on above: Result Comment: PERF ORMED BY: [place] [address] PATHOLOGIST SUPERVISOR [employer] NASIR TOBAR M.D. Performed By: #### B PRECISION LENS TECHNICIAN, HS TROP, PT, PTT, LIPASE, CK, CMP, CBC #### [facility] [address] [place] [address] Basophils/100 WBC (Bld) 1.0 % Normal . [facility] Comment on above: Performed By: #### B PRECISION LENS TECHNICIAN, HS TROP, PT, PTT, LIPASE, CK, CMP, CBC #### [address] Eosinophils (Bld) [#/Vol] 0.3 10*3/uL Normal 0.0-0.45 [facility] Comment on above: Performed By: #### B PRECISION LENS TECHNICIAN, HS TROP, PT, PTT, LIPASE, CK, CMP, CBC #### [address] Eosinophils/100 WBC (Bld) 3.8 % Normal . [facility] Comment on above: Performed By: #### B PRECISION LENS TECHNICIAN, HS TROP, PT, PTT, LIPASE, CK, CMP, CBC #### [address] Erythrocyte distribution width (RBC) [Ratio] 13.5 % Normal 12.0-14.8 [facility] Comment on above: Performed By: #### B PRECISION LENS TECHNICIAN, HS TROP, PT, PTT, LIPASE, CK, CMP, CBC #### [address] Hematocrit (Bld) [Volume fraction] 41.9 % Normal 38.8-50.0 [facility] Comment on above: Performed By: #### B PRECISION LENS TECHNICIAN, HS TROP, PT, PTT, LIPASE, CK, CMP, CBC #### [address] Hemoglobin (Bld) [Mass/Vol] 14.3 g/dL Normal 13.0-17.0 [facility] Comment on above: Performed By: #### B PRECISION LENS TECHNICIAN, HS TROP, PT, PTT, LIPASE, CK, CMP, CBC #### [address] Lymphocytes (Bld) [#/Vol] 1.9 10*3/uL Normal 1.00-4.8 [facility] Comment on above: Performed By: #### B PRECISION LENS TECHNICIAN, HS TROP, PT, PTT, LIPASE, CK, CMP, CBC #### [address] Lymphocytes/100 WBC (Bld) 25.2 % Normal . [facility] Comment on above: Performed By: #### B PRECISION LENS TECHNICIAN, HS TROP, PT, PTT, LIPASE, CK, CMP, CBC #### [address] MCH (RBC) [Entitic mass] 32.1 pg Normal 27.5-35.2 [facility] Comment on above: Performed By: #### B PRECISION LENS TECHNICIAN, HS TROP, PT, PTT, LIPASE, CK, CMP, CBC #### [address] MCV (RBC) [Entitic vol] 94.3 fL Normal 83.5-101 [facility] Comment on above: Performed By: #### B PRECISION LENS TECHNICIAN, HS TROP, PT, PTT, LIPASE, CK, CMP, CBC #### [address] Mean Corpuscular HGB Conc 34.1 g/dL Normal 32.5-35.6 [facility] Comment on above: Performed By: #### B PRECISION LENS TECHNICIAN, HS TROP, PT, PTT, LIPASE, CK, CMP, CBC #### [address] Monocytes (Bld) [#/Vol] 1.0 10*3/uL High 0.0-0.8 [facility] Comment on above: Performed By: #### B PRECISION LENS TECHNICIAN, HS TROP, PT, PTT, LIPASE, CK, CMP, CBC #### [address] Monocytes/100 WBC (Bld) 19.61 % Normal 0.00-20.00 [facility] Comment on above: Performed By: #### B PRECISION LENS TECHNICIAN, HS TROP, PT, PTT, LIPASE, CK, CMP, CBC #### [address] Monocytes/100 WBC (Bld) 13.8 % Normal . [facility] Comment on above: Performed By: #### B PRECISION LENS TECHNICIAN, HS TROP, PT, PTT, LIPASE, CK, CMP, CBC #### [address] Neutrophils (Bld) [#/Vol] 4.2 10*3/uL Normal 1.8-7.7 [facility] Comment on above: Performed By: #### B PRECISION LENS TECHNICIAN, HS TROP, PT, PTT, LIPASE, CK, CMP, CBC #### [address] Neutrophils/100 WBC (Bld) 56.2 % Normal . [facility] Comment on above: Performed By: #### B PRECISION LENS TECHNICIAN, HS TROP, PT, PTT, LIPASE, CK, CMP, CBC #### [address] NRBC% 0.1 /100{WBC} Normal 0-0.5 [facility] Comment on above: Performed By: #### B PRECISION LENS TECHNICIAN, HS TROP, PT, PTT, LIPASE, CK, CMP, CBC #### [address] Platelet mean volume (Bld) [Entitic vol] 6.7 fL Normal 6.6-10.1 [facility] Comment on above: Performed By: #### B PRECISION LENS TECHNICIAN, HS TROP, PT, PTT, LIPASE, CK, CMP, CBC #### [address] Platelets (Bld) [#/Vol] 323 10*3/uL Normal 150-450 [facility] Comment on above: Performed By: #### B PRECISION LENS TECHNICIAN, HS TROP, PT, PTT, LIPASE, CK, CMP, CBC #### [address] RBC (Bld) [#/Vol] 4.44 10*6/uL Normal 3.90-5.60 [facility] Comment on above: Performed By: #### B PRECISION LENS TECHNICIAN, HS TROP, PT, PTT, LIPASE, CK, CMP, CBC #### [address] WBC (Bld) [#/Vol] 7.6 10*3/uL Normal 4.1-10.5 [facility] Comment on above: Performed By: #### B PRECISION LENS TECHNICIAN, HS TROP, PT, PTT, LIPASE, CK, CMP, CBC #### [address] Comprehensive Metabolic Pane teresa 11-13-2023 Albumin [Mass/Vol] 4.0 g/dL Normal 3.5-5.7 [facility] Comment on above: Performed By: #### B PRECISION LENS TECHNICIAN, HS TROP, PT, PTT, LIPASE, CK, CMP, CBC #### [address] Albumin/Globulin [Mass ratio] 1.7 {ratio} Normal [facility] Comment on above: Performed By: #### B PRECISION LENS TECHNICIAN, HS TROP, PT, PTT, LIPASE, CK, CMP, CBC #### [address] ALP [Catalytic activity/Vol] 60 U/L Normal 34-104 [facility] Comment on above: Performed By: #### B PRECISION LENS TECHNICIAN, HS TROP, PT, PTT, LIPASE, CK, CMP, CBC #### [address] ALT [Catalytic activity/Vol] 15 U/L Normal 7-52 [facility] Comment on above: Performed By: #### B PRECISION LENS TECHNICIAN, HS TROP, PT, PTT, LIPASE, CK, CMP, CBC #### [address] Anion gap [Moles/Vol] 8.2 mmol/L Normal 6.0-15.0 [facility] Comment on above: Performed By: #### B PRECISION LENS TECHNICIAN, HS TROP, PT, PTT, LIPASE, CK, CMP, CBC #### [address] AST [Catalytic activity/Vol] 14 U/L Normal 13-39 [facility] Comment on above: Performed By: #### B PRECISION LENS TECHNICIAN, HS TROP, PT, PTT, LIPASE, CK, CMP, CBC #### [address] Bilirubin [Mass/Vol] 0.5 mg/dL Normal 0.3-1.0 [facility] Comment on above: Performed By: #### B PRECISION LENS TECHNICIAN, HS TROP, PT, PTT, LIPASE, CK, CMP, CBC #### [address] Calcium [Mass/Vol] 9.0 mg/dL Normal 8.6-10.3 [facility] Comment on above: Performed By: #### B PRECISION LENS TECHNICIAN, HS TROP, PT, PTT, LIPASE, CK, CMP, CBC #### [address] Chloride [Moles/Vol] 107 mmol/L Normal 98-107 [facility] Comment on above: Performed By: #### B PRECISION LENS TECHNICIAN, HS TROP, PT, PTT, LIPASE, CK, CMP, CBC #### [address] CO2 [Moles/Vol] 26.7 mmol/L Normal 21.0-31.0 [facility] Comment on above: Performed By: #### B PRECISION LENS TECHNICIAN, HS TROP, PT, PTT, LIPASE, CK, CMP, CBC #### [address] Creatinine [Mass/Vol] 1.03 mg/dL Normal 0.70-1.30 [facility] Comment on above: Performed By: #### B PRECISION LENS TECHNICIAN, HS TROP, PT, PTT, LIPASE, CK, CMP, CBC #### [address] Creatinine Clr Calc Pharmacy 94.15 Normal [facility] Comment on above: Performed By: #### B PRECISION LENS TECHNICIAN, HS TROP, PT, PTT, LIPASE, CK, CMP, CBC #### [address] GFR/1.73 sq M.predicted MDRD (S/P/Bld) [Vol rate/Area] mL/min/{1.73_m2} Normal [facility] Comment on above: Performed By: #### B PRECISION LENS TECHNICIAN, HS TROP, PT, PTT, LIPASE, CK, CMP, CBC #### [address] Globulin (S) [Mass/Vol] 2.3 g/dL Normal [facility] Comment on above: Performed By: #### B PRECISION LENS TECHNICIAN, HS TROP, PT, PTT, LIPASE, CK, CMP, CBC #### [address] Glucose [Mass/Vol] 80 mg/dL Normal 70-100 [facility] Comment on above: Result Comment: [place] Glucose Reference Range is dependent on time and content of last meal. Glucose of more than 200 mg/dL in a nonstressed, ambulatory subject supports the diagnosis of Diabetes Mellitus. ADA recommended reference range Performed By: #### B PRECISION LENS TECHNICIAN, HS TROP, PT, PTT, LIPASE, CK, CMP, CBC #### [address] Potassium [Moles/Vol] 3.9 mmol/L Normal 3.5-5.1 [facility] Comment on above: Performed By: #### B PRECISION LENS TECHNICIAN, HS TROP, PT, PTT, LIPASE, CK, CMP, CBC #### [address] Protein [Mass/Vol] 6.3 g/dL Low 6.4-8.9 [facility] Comment on above: Performed By: #### B PRECISION LENS TECHNICIAN, HS TROP, PT, PTT, LIPASE, CK, CMP, CBC #### [address] Sodium [Moles/Vol] 138 mmol/L Normal 136-145 [facility] Comment on above: Performed By: #### B PRECISION LENS TECHNICIAN, HS TROP, PT, PTT, LIPASE, CK, CMP, CBC #### [address] Urea nitrogen [Mass/Vol] 10 mg/dL Normal 7-25 [facility] Comment on above: Performed By: #### B PRECISION LENS TECHNICIAN, HS TROP, PT, PTT, LIPASE, CK, CMP, CBC #### [address] Creatine Kinaseon 11-13-2023 CK [Catalytic activity/Vol] 57 U/L Normal 30-223 [facility] Comment on above: Performed By: #### B PRECISION LENS TECHNICIAN, HS TROP, PT, PTT, LIPASE, CK, CMP, CBC #### [address] Creatine kinase [Enzymatic a ctivity/volume] in Serum or PlasmaOrdered By: Tommy Swanson on 11-13-2023 CK [Catalytic activity/Vol] 57 U/L 30-223 [facility] Creatinine [Mass/volume] in Serum or PlasmaOrdered By: Tommy Swanson on 11-13-2023 Creatinine [Mass/Vol] 1.03 mg/dL 0.70-1.30 [facility] Dipstick and Microscopicon 0 11-13-2023 Appearance (U) Turbid Critically abnormal Clear [facility] Comment on above: Order Comment: Name Collection Type:: Clean-Voided Midstream Performed By: #### A DDONUAPLUS #### [address] Bacteria,Urine None Seen Normal None Seen [facility] Comment on above: Order Comment: Name Collection Type:: Clean-Voided Midstream Performed By: #### A DDONUAPLUS #### [address] Bilirubin,Urine 1+ High Negative [facility] Comment on above: Order Comment: Name Collection Type:: Clean-Voided Midstream Performed By: #### A DDONUAPLUS #### [address] Color (U) Dark Yellow Critically abnormal Yellow [facility] Comment on above: Order Comment: Name Collection Type:: Clean-Voided Midstream Performed By: #### A DDONUAPLUS #### [address] Glucose Ql (U) Normal Normal Normal [facility] Comment on above: Order Comment: Name Collection Type:: Clean-Voided Midstream Performed By: #### A DDONUAPLUS #### [address] Hyaline Casts,Urine 0-8 Normal 0-8 [facility] Comment on above: Order Comment: Name Collection Type:: Clean-Voided Midstream Result Comment: PERF ORMED BY: [place] [address] PATHOLOGIST SUPERVISOR [employer] NASIR TOBAR M.D. Performed By: #### A DDONUAPLUS #### [address] Ketones Ql (U) Trace High Negative [facility] Comment on above: Order Comment: Name Collection Type:: Clean-Voided Midstream Performed By: #### A DDONUAPLUS #### [address] Leukocyte esterase Test strip Ql (U) 1+ High Negative [facility] Comment on above: Order Comment: Name Collection Type:: Clean-Voided Midstream Performed By: #### A DDONUAPLUS #### [place] [address] [place] Nitrite,Urine Negative Normal Negative [facility] Comment on above: Order Comment: Name Collection Type:: Clean-Voided Midstream Performed By: #### A DDONUAPLUS #### [address] Occult Blood,Urine Negative Normal Negative [facility] Comment on above: Order Comment: Name Collection Type:: Clean-Voided Midstream Result Comment: PERF ORMED BY: [place] [address] PATHOLOGIST SUPERVISOR [employer] NASIR TOBAR M.D. Performed By: #### A DDONUAPLUS #### [address] pH (U) 8.5 [pH] Normal 5.0-9.0 [facility] Comment on above: Order Comment: Name Collection Type:: Clean-Voided Midstream Performed By: #### A DDONUAPLUS #### [place] [address] [place] Protein,Urine Trace High Negative [facility] Comment on above: Order Comment: Name Collection Type:: Clean-Voided Midstream Performed By: #### A DDONUAPLUS #### [place] [address] [place] RBC LM.HPF (Urine sed) [#/Area] 0 /[HPF] Normal 0-4 [facility] Comment on above: Order Comment: Name Collection Type:: Clean-Voided Midstream Performed By: #### A DDONUAPLUS #### [place] [id number] [place] [address],Urine 1.026 Normal 1.001-1.030 [facility] Comment on above: Order Comment: Name Collection Type:: Clean-Voided Midstream Performed By: #### A DDONUAPLUS #### [address] Squamous Epithelial Cell,Urine 0-1 Normal 0-2 [facility] Comment on above: Order Comment: Name Collection Type:: Clean-Voided Midstream Performed By: #### A DDONUAPLUS #### [address] Urobilinogen,Urine >=2 High Normal [facility] Comment on above: Order Comment: Name Collection Type:: Clean-Voided Midstream Performed By: #### A DDONUAPLUS #### [address] WBC,Urine 3-4 Normal 0-4 [facility] Comment on above: Order Comment: Name Collection Type:: Clean-Voided Midstream Performed By: #### A DDONUAPLUS #### [address] ECG 12 lead ECGon 11-13-2023 ECG 12 lead ECG [facility] Main [place] [address] [place] [address] Electrocardiograph Report Signed Patient: Faustino Unger MR#: [id number] : 1990 Acct:[id number] Age/Sex: 33 / M ADM Date: 11/13/23 Loc: ER Room: Type: [facility] ER Attending Dr: Ordering Provider: Tommy [...] sinus rhythm Confirmed by Tommy SWANSON DO ([id number]) on 11/13/2023 3:23:03 PM Referred By: Electronically Signed By:Tommy SWANSON DO Transcribed By: MUS Signed By Tommy Swanson DO 0 11/13/23 1523 Normal [facility] Eosinophils Auto (Bld) [#/Vo l]Ordered By: Tommy Swanson on 11-13-2023 Eosinophils (Bld) [#/Vol] 0.3 10*3/uL 0.0-0.45 [facility] Eosinophils/100 WBC Auto (Bl d)Ordered By: Tommy Swanson on 11-13-2023 Eosinophils/100 WBC (Bld) 3.8 % . [facility] Erythrocyte distribution wid th Auto (RBC) [Ratio]Ordered By: Tommy Swanson on 11-13-2023 Erythrocyte distribution width (RBC) [Ratio] 13.5 % 12.0-14.8 [facility] Globulin Calc (S) [Mass/Vol] Ordered By: Tommy Swanson on 11-13-2023 Globulin (S) [Mass/Vol] 2.3 g/dL [facility] Glucose [Mass/volume] in Ser um or PlasmaOrdered By: Tommy Swanson on 11-13-2023 Glucose [Mass/Vol] 80 mg/dL 70-100 [facility] Comment on above: ADA recommended refe rence rangeRandom Glucose Reference Range is dependent on time and content of last meal. Glucose of more than 200 mg/dL in a nonstressed, ambulatory subject supports the diagnosis of Diabetes Mellitus. Hematocrit Auto (Bld) [Volum e fraction]Ordered By: Tommy Swanson on 11-13-2023 Hematocrit (Bld) [Volume fraction] 41.9 % 38.8-50.0 [facility] Hemoglobin [Mass/volume] in BloodOrdered By: Tommy Swanson 11-13-2023 Hemoglobin (Bld) [Mass/Vol] 14.3 g/dL 13.0-17.0 [facility] INR in Platelet poor plasma by Coagulation assayOrdered By: Tommy Swanson on 11-13-2023 INR Coag (PPP) [Relative time] 1.1 {INR} [facility] Comment on above: INR Therapeutic Rang e [...] on 11-13-2023 Ketones (U) [Mass/Vol] Trace Negative [facility] - UrinalysisOrder ed By: Tommy Swanson on 11-13-2023 Hyaline casts LM Ql (Urine sed) 0-8 [LPF] 0-8 [facility] Leukocytes [#/volume] correc sylvie for nucleated erythrocytes in Blood by Automated counOrdered By: Tommy Swanson on 11-13-2023 WBC corrected for nucl RBC Auto (Bld) [#/Vol] 7.6 10*3/uL 4.1-10.5 [facility] Lipaseon 11-13-2023 Lipase [Catalytic activity/Vol] 49.0 U/L Normal 11.0-82.0 [facility] Comment on above: Result Comment: PERF ORMED BY: [place] [address] PATHOLOGIST SUPERVISOR [employer] NASIR TOBAR M.D. Performed By: #### B PRECISION LENS TECHNICIAN, HS TROP, PT, PTT, LIPASE, CK, CMP, CBC #### [facility] [address] [place] [address] Lipase [Enzymatic activity/v olume] in Serum or PlasmaOrdered By: Tommy Swanson on 11-13-2023 Lipase [Catalytic activity/Vol] 49.0 U/L 11.0-82.0 [facility] Lymphocytes Auto (Bld) [#/Vo l]Ordered By: Tommy Swanson on 11-13-2023 Lymphocytes (Bld) [#/Vol] 1.9 10*3/uL 1.00-4.8 [facility] Lymphocytes/100 WBC Auto (Bl d)Ordered By: Tommy Swanson on 11-13-2023 Lymphocytes/100 WBC (Bld) 25.2 % . [facility] MCH Auto (RBC) [Entitic mass ]Ordered By: Tommy Swanson on 11-13-2023 MCH (RBC) [Entitic mass] 32.1 pg 27.5-35.2 [facility] MCHC Auto (RBC) [Mass/Vol]Or dered By: Tommy Swanson on 11-13-2023 MCHC (RBC) [Mass/Vol] 34.1 g/dL 32.5-35.6 [facility] MCV Auto (RBC) [Entitic vol] Ordered By: Tommy Swanson on 11-13-2023 MCV (RBC) [Entitic vol] 94.3 fL 83.5-101 [facility] Monocyte distribution width [Entitic volume] in Blood by AutomatedOrdered By: Tommy Swanson on 11-13-2023 Monocyte distribution width Auto (Bld) [Entitic vol] 19.61 % 0.00-20.00 [facility] Monocytes Auto (Bld) [#/Vol] Ordered By: Tommy Swanson on 11-13-2023 Monocytes (Bld) [#/Vol] 1.0 10*3/uL 0.0-0.8 [facility] Monocytes/100 WBC Auto (Bld) Ordered By: Tommy Swanson on 11-13-2023 Monocytes/100 WBC (Bld) 13.8 % . [facility] Natriuretic peptide B [Mass/ Vol]Ordered By: Tommy Swanson on 11-13-2023 Natriuretic peptide B (Bld) [Mass/Vol] 18.0 pg/mL 5-100 [facility] Neutrophils Auto (Bld) [#/Vo l]Ordered By: Tommy Swanson on 11-13-2023 Neutrophils (Bld) [#/Vol] 4.2 10*3/uL 1.8-7.7 [facility] Neutrophils/100 WBC Auto (Bl d)Ordered By: Tommy Swanson on 11-13-2023 Neutrophils/100 WBC (Bld) 56.2 % . [facility] Nitrite Test strip Ql (U)Ord ered By: Tommy Swanson on 11-13-2023 Nitrite Ql (U) Negative Negative [facility] No Panel InformationOrdered By: Tommy Swanson on 11-13-2023 Estimated GFR (CKD-EPI) > 60.0 mL/Min [facility] Creatinine Clearance (Chem 94.15 [facility] Nucleated erythrocytes [Pres ence] in Blood by Automated countOrdered By: Tommy Swanson on 11-13-2023 Nucleated RBC Auto Ql (Bld) 0.1 /100{WBC} 0-0.5 [facility] Partial Thromboplastin Timeo n 11-13-2023 aPTT Coag (Bld) [Time] 28.7 s Normal 25.1-36.5 [facility] Comment on above: Result Comment: A he matocrit value greater than 55% may lead to inaccurate results in coagulation testing. Patients having hematocrit values >55% require a special collection tube for coagulation studies. Please contact the laboratory at [phone] for redraw instructions. PERFORMED BY: [place] [address] PATHOLOGIST SUPERVISOR [employer] NASIR TOBAR M.D. Performed By: #### B PRECISION LENS TECHNICIAN, HS TROP, PT, PTT, LIPASE, CK, CMP, CBC #### [address] Platelet mean volume Auto (B ld) [Entitic vol]Ordered By: Tommy Swanson on 11-13-2023 Platelet mean volume (Bld) [Entitic vol] 6.7 fL 6.6-10.1 [facility] Platelets Auto (Bld) [#/Vol] Ordered By: Tommy Swanson on 11-13-2023 Platelets (Bld) [#/Vol] 323 10*3/uL 150-450 [facility] Potassium [Moles/volume] in Serum or PlasmaOrdered By: Tommy Swanson on 11-13-2023 Potassium [Moles/Vol] 3.9 mmol/L 3.5-5.1 [facility] Protein Auto test strip (U) [Mass/Vol]Ordered By: Tommy Swanson on 11-13-2023 Protein (U) [Mass/Vol] Trace mg/dL Negative [facility] Protein [Mass/volume] in Ser um or PlasmaOrdered By: Tommy Swanson on 11-13-2023 Protein [Mass/Vol] 6.3 g/dL 6.4-8.9 [facility] Prothrombin Time INRon 11-12 INR Coag (PPP) [Relative time] 1.1 {INR} Normal [facility] [facility] Comment on above: Result Comment: [...] 3 - 4.5 Performed By: #### B PRECISION LENS TECHNICIAN, HS TROP, PT, PTT, LIPASE, CK, CMP, CBC #### [facility] [address] PT Coag (PPP) [Time] 12.6 s Normal 9.0-12.9 [facility] Comment on above: Result Comment: A he matocrit value greater than 55% may lead to inaccurate results in coagulation testing. Patients having hematocrit values >55% require a special collection tube for coagulation studies. Please contact the laboratory at [phone] for redraw instructions. Performed By: #### B PRECISION LENS TECHNICIAN, HS TROP, PT, PTT, LIPASE, CK, CMP, CBC #### [facility] [address] Prothrombin time (PT)Ordered By: Tommy Swanson on 11-13-2023 PT Coag (PPP) [Time] 12.6 s 9.0-12.9 [facility] Comment on above: A hematocrit value g reater than 55% may lead to inaccurate results in coagulation testing. Patients having hematocrit values >55% require a special collection tube for coagulation studies. Please contact the laboratory at [phone] for redraw instructions. RBC Auto (Bld) [#/Vol]Ordere d By: Tommy Swanson on 11-13-2023 RBC (Bld) [#/Vol] 4.44 10*6/uL 3.90-5.60 [facility] Serum or plasma albumin/glob ulin mass ratioOrdered By: Tommy Swanson on 11-13-2023 Albumin/Globulin [Mass ratio] 1.7 {ratio} [facility] Serum or plasma anion gap de terminationOrdered By: Tommy Swanson on 11-13-2023 Anion gap [Moles/Vol] 8.2 mmol/L 6.0-15.0 [facility] Sodium [Moles/volume] in Ser um or PlasmaOrdered By: Tommy Swanson on 11-13-2023 Sodium [Moles/Vol] 138 mmol/L 136-145 [facility] Specific gravity Auto test s trip (U) [Rel density]Ordered By: Tommy Swanson on 11-13-2023 Specific gravity (U) [Rel density] 1.026 1.001-1.030 [facility] Squamous epithelial cells de tection in urine sediment by light microscopyOrdered By: Tommy Swanson on 11-13-2023 Epithelial cells.squamous LM Ql (Urine sed) 0-1 [HPF] 0-2 [facility] Troponin I High Sensitivityo n 11-13-2023 Troponin I High Sensitivity 3.2 pg/mL Normal 0.0-20.0 [facility] Comment on above: Result Comment: PERF ORMED BY: [place] [address] PATHOLOGIST SUPERVISOR [employer] NASIR TOBAR M.D. Performed By: #### B PRECISION LENS TECHNICIAN, HS TROP, PT, PTT, LIPASE, CK, CMP, CBC #### [address] Troponin I.cardiac [Mass/vol ume] in Serum or Plasma by Detection limit <= 0.01 ng/Ordered By: Tommy Swanson on 11-13-2023 Troponin I.cardiac DL <= 0.01 ng/mL [Mass/Vol] 3.2 pg/mL 0.0-20.0 [facility] Urea nitrogen [Mass/volume] in Serum or PlasmaOrdered By: Tommy Swanson on 11-13-2023 Urea nitrogen [Mass/Vol] 10 mg/dL 02-11 [facility] Urine bacteria detection by automated methodOrdered By: Tommy Swanson on 11-13-2023 Bacteria Auto Ql (U) None seen None Seen [facility] Urine clarity by refractomet ry automatedOrdered By: Tommy Swanson on 11-13-2023 Clarity Refractometry automated (U) Turbid Clear [facility] Urine glucose measurement by automated test strip (mass/volume)Ordered By: Tommy Swanson on 11-13-2023 Glucose Auto test strip (U) [Mass/Vol] Normal mg/dL Normal [facility] Urine hemoglobin detection b y automated test stripOrdered By: Tommy Swanson on 11-13-2023 Hemoglobin Auto test strip Ql (U) Negative Negative [facility] Urine leukocyte esterase det ection by automated test stripOrdered By: Tommy Swanson on 11-13-2023 Leukocyte esterase Auto test strip Ql (U) 1+ Negative [facility] Urobilinogen Auto test strip (U) [Mass/Vol]Ordered By: Tommy Swanson on 11-13-2023 Urobilinogen (U) [Mass/Vol] mg/dL Normal [facility] WBC Auto (Bld) [#/Vol]Ordere d By: Tommy Swanson on 11-13-2023 WBC (Bld) [#/Vol] 7.6 10*3/uL 4.1-10.5 [facility] pH Auto test strip (U)Ordere d By: Tommy Swanson on 11-13-2023 pH (U) 8.5 [pH] 5.0-9.0 [facility] Absolute immature granulocyt e countOrdered By: Pankaj Rao on 08-28-2023 Immature granulocytes (Bld) [#/Vol] 0 10*3/uL 0.0-0.1 [facility] Comment on above: Performed at: [address] [id number] Director: Raimundo Corbin PhD, Phone: [phone] Absolute lymphocyte countOrd ered By: Pankaj Rao on 08-28-2023 Lymphocytes Auto (Unsp spec) [#/Vol] 2.2 10*3/uL 0.7-3.1 [facility] Basophil percentageOrdered B y: Pankaj Rao on 08-28-2023 Monocytes (Bld) [#/Vol] 0.9 10*3/uL 0.1-0.9 [facility] Neutrophils (Bld) [#/Vol] 2.2 10*3/uL 1.4-7.0 [facility] Neutrophils/100 WBC (Bld) 39 % Not Estab. [facility] WBC (Bld) [#/Vol] 5.7 10*3/uL 3.4-10.8 [facility] Basophils/100 WBC Auto (Bld) Ordered By: Pankaj Rao on 08-28-2023 Basophils/100 WBC (Bld) 1 % Not Estab. [facility] Blood basophils count (numbe r/volume)Ordered By: Pankaj Rao on 08-28-2023 Basophils (Bld) [#/Vol] 0.1 10*3/uL 0.0-0.2 [facility] Blood eosinophils count (num minerav/volume)Ordered By: Pankaj Rao on 08-28-2023 Eosinophils (Bld) [#/Vol] 0.3 10*3/uL 0.0-0.4 [facility] Blood hematocrit (volume fra ction)Ordered By: Pankaj Rao on 08-28-2023 Hematocrit (Bld) [Volume fraction] 42.1 % 37.5-51.0 [facility] Blood hemoglobin measurement (mass/volume)Ordered By: Pankaj Rao on 08-28-2023 Hemoglobin (Bld) [Mass/Vol] 14.2 g/dL 13.0-17.7 [facility] Blood immature cells/100 julia kocytesOrdered By: Pankaj Rao on 08-28-2023 Immature cells/100 WBC (Bld) TNP [facility] Comment on above: Test not performed Blood immature granulocytes/ 100 leukocytesOrdered By: Pankaj Rao on 08-28-2023 Immature granulocytes/100 WBC (Bld) 0 % Not Estab. [facility] CD3+CD8+ (T8 suppressor cell s) cells/100 cells (Bld)Ordered By: Pankaj Rao on 08-28-2023 CD3+CD8+ (T8 suppressor cells) cells (Bld) [#/Vol] 803 /uL 109-897 [facility] Count of whole blood cells p ositive for CD3 and CD4 antigens (number/volume)Ordered By: Pankaj Rao on 08-28-2023 CD3+CD4+ (T4 helper) cells (Bld) [#/Vol] 770 /uL [phone] [facility] Determination of erythrocyte mean corpuscular volume (MCV)Ordered By: Pankaj Rao on 08-28-2023 MCV (RBC) [Entitic vol] 95 fL 79-97 [facility] Eosinophils/100 WBC Auto (Bl d)Ordered By: Pankaj Rao on 08-28-2023 Eosinophils/100 WBC (Bld) 4 % Not Estab. [facility] Erythrocyte distribution wid th ratioOrdered By: Pankaj Rao on 08-28-2023 Erythrocyte distribution width (RBC) [Ratio] 13.1 % 11.6-15.4 [facility] Interpretation of morphologi c examination of blood (narrative result)Ordered By: Pankaj Rao on 08-28-2023 Morphology Lit (Bld) [Interp] TNP [facility] Comment on above: Test not performed Lymphocytes/100 WBC Auto (Bl d)Ordered By: Pankaj Rao on 08-28-2023 Lymphocytes/100 WBC (Bld) 40 % Not Estab. [facility] MCHC Auto (RBC) [Mass/Vol]Or dered By: Pankaj Rao on 08-28-2023 MCHC (RBC) [Mass/Vol] 33.7 g/dL 31.5-35.7 [facility] No Panel InformationOrdered By: Simin Moseley on 08-28-2023 Hepatitis B Surface Antigen Non-Reactive Nonreactive [facility] Hepatitis C Antibody Non-Reactive Nonreactive [facility] Comment on above: Non Reactive: < 0.8 Equivocal: >/= 0.8 to < 1.0 Reactive: >/= 1.0The CDC recommends that a reactive/equivocal HCV antibody result be followed up by the HCV Nucleic Acid Amplificationtest (482424) Hepatitis A IgM Antibody Negative Negative [facility] Hepatitis B Core IgM Antibody Negative Negative [facility] Hepatitis C Antibody (EIA) Non-Reactive Non Reactive [facility] Hepatitis C Antibody Comment Comment . [facility] Comment on above: Not infected with HC V unless early or acute infection issuspected (which may be delayed in an immunocompromisedindividual), or other evidence exists to indicate HCVinfection.Performed at: [facility] [id number] Director: Raimundo Corbin PhD, Phone: [phone] No Panel InformationOrdered By: Pankaj Rao on 08-28-2023 HIV-1 RNA Ultraquantitative (PCR) < 20 copies/mL . [facility] Comment on above: HIV-1 RNA not detect edThe reportable range for this assay is 20 to 10,000,000copies HIV-1 RNA/mL. Troponin I High Sensitivity 5 pg/mL 3.0-78.0 [facility] Comment on above: Please Note: New Alen t Units and Gender Specific Reference Ranges. For more information see Policy Stat Procedure [place] High Sensitivity Troponin (TNIH) and attachments. Percentage of whole blood ce lls positive for CD3 and CD4 antigensOrdered By: Pankaj Rao on 08-28-2023 CD3+CD4+ (T4 helper) cells/100 cells (Bld) 35.0 % 30.8-58.5 [facility] Percentage of whole blood ce lls positive for CD3 and CD8 antigensOrdered By: Pankaj Rao on 08-28-2023 CD3+CD8+ (T8 suppressor cells) cells/100 cells (Bld) 36.5 % 12.0-35.5 [facility] Plasma HIV 1 RNA viral load by probe and target amplification method (log number/voluOrdered By: Pankaj Rao on 08-28-2023 HIV 1 RNA JOSE+probe [Log #/Vol] TNP [facility] Comment on above: Test not performedRe sult Units: [id number]/mLUnable to calculate result since non-numeric resultobtained for component test.Performed at: - [facility] [id number] Director: Weston Rodrigez MD, Phone: [phone] Platelets bldOrdered By: Preethi Rao on 08-28-2023 Platelets (Bld) [#/Vol] 276 10*3/uL 150-450 [facility] RBC Auto (Bld) [#/Vol]Ordere d By: Pankaj Rao on 08-28-2023 RBC (Bld) [#/Vol] 4.43 10*6/uL 4.14-5.80 [facility] Ratio of whole blood cells p ositive for CD3 and CD4 antigens to cells positive for CDOrdered By: Pankaj Rao on 08-28-2023 CD3+CD4+ (T4 helper) cells/CD3+CD8+ (T8 suppressor cells) cells (Bld) [# ratio] 0.96 % 0.92-3.72 [facility] Serum Treponema species anti body detectionOrdered By: Simin Moseley on 08-28-2023 Treponema sp Ab Ql (S) Non-Reactive [facility] Serum hepatitis B virus surf hanna antibody IgG detectionOrdered By: Simin Moseley on 08-28-2023 HBV surface IgG Ql (S) Non-Reactive [facility] Comment on above: Non Reactive: Incons istent with immunity less than <10 mIU/mL Reactive: Consistent with immunity greater than or equal to 10 mIU/mL Serum or plasma thyroid stim ulating hormone (TSH) measurement (units/volume)Ordered By: Pankaj Rao on 08-28-2023 TSH Qn 1.59 uIU/mL 0.358-3.74 [facility] Thin prep Papanicolaou smear with manual screeningOrdered By: Pankaj Roa on 08-28-2023 Thin prep Papanicolaou smear with manual screening 32.1 pg 26.6-33.0 [facility] Thin prep Papanicolaou smear with manual screening 16 % Not Estab. [facility] Thin prep Papanicolaou smear with manual screeningOrdered By: Simin Moseley on 08-28-2023 Thin prep Papanicolaou smear with manual screening Negative Negative [facility] Comment on above: Lyme antibodies not detected. Reflex testing is notindicated.No laboratory evidence of infection with B. burgdorferi(Lyme disease). Negative results may occur in patientsrecently infected (less than or equal to 14 days) with B.burgdorferi. If recent infection is suspected, repeattesting on a new sample collected in 7 to 14 days isrecommended.Performed at: [facility] [id number] Director: Raimundo Corbin PhD, Phone: [phone] Absolute lymphocyte countOrd ered By: Pal Wilson on 08-27-2023 Lymphocytes Auto (Unsp spec) [#/Vol] 2.10 10*3/uL 0.83-4.51 [facility] Automated lymphocyte count a s percentage of total leukocytesOrdered By: Pal Wilson on 08-27-2023 Lymphocytes/100 WBC Auto (Unsp spec) 29.0 % 19-41 [facility] Basophil percentageOrdered B y: Pankaj Jalen on 08-27-2023 Basophil percentage 3.8 mg/dL 2.5-4.9 [facility] Basophil percentageOrdered B y: Pal Wilson on 08-27-2023 Basophils/100 WBC (Bld) 0.8 % 0-1 [facility] Bilirubin [Mass/Vol] 0.60 mg/dL 0.20-1.00 [facility] Comment on above: For patients on eltr ombopag therapy, use of Dimension [place] TBIL is not recommended. Chloride [Moles/Vol] 110 mmol/L 98-107 [facility] Eosinophils/100 WBC (Bld) 2.6 % 0-5 [facility] Glucose [Mass/Vol] 88 mg/dL 74-106 [facility] Hemoglobin (Bld) [Mass/Vol] 14.7 g/dL 13.0-16.5 [facility] Monocytes/100 WBC (Bld) 11.4 % 0-10 [facility] Neutrophils (Bld) [#/Vol] 4.1 10*3/uL 2.0-7.7 [facility] Neutrophils/100 WBC (Bld) 55.9 % 47-70 [facility] Potassium [Moles/Vol] 3.7 mmol/L 3.5-5.1 [facility] Protein [Mass/Vol] 6.9 g/dL 6.4-8.2 [facility] Sodium [Moles/Vol] 141 mmol/L 136-145 [facility] WBC (Bld) [#/Vol] 7.3 10*3/uL 4.4-11.0 [facility] Determination of erythrocyte mean corpuscular volume (MCV)Ordered By: Pal Wilson on 08-27-2023 MCV (RBC) [Entitic vol] 92.9 fL 80-94 [facility] Erythrocyte distribution wid th ratioOrdered By: Pal Wilson on 08-27-2023 Erythrocyte distribution width (RBC) [Ratio] 13.2 % 11.6-14.6 [facility] Erythrocyte distribution wid th standard deviationOrdered By: Pal Wilson on 08-27-2023 Erythrocyte distribution width (RBC) [Entitic vol] 45.1 fL 35.1-43.9 [facility] Hematocrit Auto (Bld) [Volum e fraction]Ordered By: Pal Wilson on 08-27-2023 Hematocrit (Bld) [Volume fraction] 43.2 % 40-54 [facility] Immature granulocytes/100 WB C Auto (Bld)Ordered By: Pal Wilson on 08-27-2023 Immature granulocytes/100 WBC (Bld) 0.300 % 0.0-0.9 [facility] Comment on above: IG% - Immature Granu locytes (promyelocytes, myelocytes and metamyelocytes) > 1% indicates that a LEFT SHIFT is Present. Laboratory - Chemistry and C hemistry - challengeOrdered By: Pankaj Rao on 08-27-2023 Magnesium [Mass/Vol] 2.2 mg/dL 1.6-2.6 [facility] Laboratory - Chemistry and C hemistry - challengeOrdered By: Pal Wilson on 08-27-2023 Albumin/Globulin [Mass ratio] 1.3 {ratio} 0.9-2.4 [facility] ALP [Catalytic activity/Vol] 93 U/L 45-117 [facility] ALT [Catalytic activity/Vol] 26 U/L 16-61 [facility] CO2 [Moles/Vol] 28.0 mmol/L 21.0-32.0 [facility] Globulin (S) [Mass/Vol] 3.0 g/dL 2.2-4.2 [facility] Urea nitrogen/Creatinine [Mass ratio] 13.8 mg/mg 10-20 [facility] Laboratory - Drug toxicology Ordered By: Pal Wilson on 08-27-2023 Amphetamines Ql (U) Positive <1000 ng/mL [facility] Benzodiazepines Ql (U) Negative < 200 ng/mL [facility] Cannabinoids Screen Ql (U) Negative < 50 ng/mL [facility] Cocaine Ql (U) Positive < 300 ng/mL [facility] Opiates Ql (U) Negative < 300 ng/mL [facility] Laboratory - Hematology and Cell countsOrdered By: Pal Wilson on 08-27-2023 MCH (RBC) [Entitic mass] 31.6 pg 27.0-32.0 [facility] MCHC (RBC) [Mass/Vol] 34.0 g/dL 32-36 [facility] Nucleated RBC/100 WBC (Bld) [Ratio] 0 % 0-5 [facility] Platelet mean volume (Bld) [Entitic vol] 8.4 fL 6.2-12.0 [facility] Platelets (Bld) [#/Vol] 243 10*3/uL 150-450 [facility] No Panel InformationOrdered By: Pal Wilson on 08-27-2023 MDMA (Ecstasy) Screen Negative < 500 ng/mL [facility] Urine Barbiturates Screen Negative < 200 ng/mL [facility] Urine Drug Screen Comment [facility] Comment on above: CONFIRMATORY TESTING FOR ALL [...] Methadone Screen Negative < 300 ng/mL [facility] Estimated Creatinine Clearance Calc 109.96 ml/min [facility] Estimated GFR (MDRD) Amer 129 mL/min >60 [facility] Comment on above: GFR Calc Estimated GFR (MDRD) Non-Af Amer 107 mL/min >60 [facility] Comment on above: Non- GFR Calc Ethyl Alcohol Level 3.0 mg/dL [facility] Comment on above: The serum:whole bloo d ethanol ratio is approximately 1.14and varies slightly with hematocrit. Medical Alcohol reference interval and critical value innon-tolerant individuals; 50 - 100 Impairment 100 Intoxication 100 - 250 Severe Poisoning 250 - 400 Deep/possible fatal coma Troponin I High Sensitivity 4 pg/mL 3.0-78.0 [facility] Comment on above: Please Note: New Alen t Units and Gender Specific Reference Ranges. For more information see Policy Stat Procedure [facility] High Sensitivity Troponin (TNIH) and attachments. RBC Auto (Bld) [#/Vol]Ordere d By: Pal Wilson on 08-27-2023 RBC (Bld) [#/Vol] 4.65 10*6/uL 4.6-6.2 [facility] Serum or plasma calcium jazlyn urement (mass/volume)Ordered By: Pal Wilson on 08-27-2023 Calcium [Mass/Vol] 9.6 mg/dL 8.5-10.1 [facility] Serum or plasma creatinine m easurement (mass/volume)Ordered By: Pal Wilson on 08-27-2023 Creatinine [Mass/Vol] 0.87 mg/dL 0.70-1.30 [facility] Comment on above: The validity of the calculated GFR & GFRAA in patients over 70 years has not been determined. Clinical correlation is essential. Serum or plasma urea nitroge n measurement (mass/volume)Ordered By: Pal Wilson on 08-27-2023 Urea nitrogen [Mass/Vol] 12 mg/dL 7-18 [facility] Thin prep Papanicolaou smear with manual screeningOrdered By: Pal Wilson on 08-27-2023 Thin prep Papanicolaou smear with manual screening 3.9 g/dL 3.2-5.0 [facility] Thin prep Papanicolaou smear with manual screening 17 U/L 15-37 [facility] Thin prep Papanicolaou smear with manual screening 3 5-15 [facility] Urine phencyclidine (PCP) de tectionOrdered By: Pal Wilson on 08-27-2023 Phencyclidine Ql (U) Negative < 25 ng/mL [facility] Absolute immature granulocyt e countOrdered By: Humberto Downs on 06-18-2023 Immature granulocytes (Bld) [#/Vol] 0 10*3/uL 0.0-0.1 [facility] Absolute lymphocyte countOrd ered By: Humberto Downs on 06-18-2023 Lymphocytes Auto (Unsp spec) [#/Vol] 2.28 10*3/uL 0.83-4.51 [facility] Lymphocytes Auto (Unsp spec) [#/Vol] 2.4 10*3/uL 0.7-3.1 [facility] Basophil percentageOrdered B y: Humberto Downs on 06-18-2023 Basophils/100 WBC (Bld) 1.3 % 0-1 [facility] Bilirubin [Mass/Vol] 0.30 mg/dL 0.20-1.00 [facility] Comment on above: For patients on eltr ombopag therapy, use of Dimension [place] TBIL is not recommended. Chloride [Moles/Vol] 104 mmol/L 98-107 [facility] Eosinophils/100 WBC (Bld) 3.3 % 0-5 [facility] Glucose [Mass/Vol] 87 mg/dL 74-106 [facility] Monocytes (Bld) [#/Vol] 0.6 10*3/uL 0.1-0.9 [facility] Neutrophils (Bld) [#/Vol] 3.1 10*3/uL 2.0-7.7 [facility] Neutrophils (Bld) [#/Vol] 3.0 10*3/uL 1.4-7.0 [facility] Neutrophils/100 WBC (Bld) 48.6 % 47-70 [facility] Neutrophils/100 WBC (Bld) 49 % Not Estab. [facility] Potassium [Moles/Vol] 4.3 mmol/L 3.5-5.1 [facility] Protein [Mass/Vol] 7.3 g/dL 6.4-8.2 [facility] Sodium [Moles/Vol] 139 mmol/L 136-145 [facility] WBC (Bld) [#/Vol] 6.3 10*3/uL 3.4-10.8 [facility] Basophils/100 WBC Auto (Bld) Ordered By: Humberto Downs on 06-18-2023 Basophils/100 WBC (Bld) 1 % Not Estab. [facility] Blood basophils count (numbe r/volume)Ordered By: Humberto Downs on 06-18-2023 Basophils (Bld) [#/Vol] 0.1 10*3/uL 0.0-0.2 [facility] Blood eosinophils count (num minerva/volume)Ordered By: Humberto Downs on 06-18-2023 Eosinophils (Bld) [#/Vol] 0.2 10*3/uL 0.0-0.4 [facility] Blood hematocrit (volume fra ction)Ordered By: Humberto Downs on 06-18-2023 Hematocrit (Bld) [Volume fraction] 46.4 % 37.5-51.0 [facility] Blood hemoglobin measurement (mass/volume)Ordered By: Humberto Downs on 06-18-2023 Hemoglobin (Bld) [Mass/Vol] 15.4 g/dL 13.0-17.7 [facility] Blood immature cells/100 julia kocytesOrdered By: Humberto Downs on 06-18-2023 Immature cells/100 WBC (Bld) TNP [facility] Comment on above: Test not performed Blood immature granulocytes/ 100 leukocytesOrdered By: Humberto Downs on 06-18-2023 Immature granulocytes/100 WBC (Bld) 0 % Not Estab. [facility] Blood lymphocytes/100 leukoc ytesOrdered By: Humberto Downs on 06-18-2023 Lymphocytes/100 WBC (Bld) 35.7 % 19-41 [facility] Blood monocytes/100 leukocyt esOrdered By: Humberto Downs on 06-18-2023 Monocytes/100 WBC (Bld) 10.8 % 0-10 [facility] Blood platelet adequacy dete ction by light microscopyOrdered By: Humberto Downs on 06-18-2023 Platelets LM Ql (Bld) ADEQUATE ADEQ [facility] Blood platelet mean volumeOr dered By: Humberto Downs on 06-18-2023 Platelet mean volume (Bld) [Entitic vol] 8.2 fL 6.2-12.0 [facility] Count of whole blood cells p ositive for CD3 and CD4 antigens (number/volume)Ordered By: Humberto Downs on 06-18-2023 CD3+CD4+ (T4 helper) cells (Bld) [#/Vol] 818 /uL [phone] [facility] Determination of erythrocyte mean corpuscular volume (MCV)Ordered By: Humberto Downs on 06-18-2023 MCV (RBC) [Entitic vol] 96 fL 79-97 [facility] Eosinophils/100 WBC Auto (Bl d)Ordered By: Humberto Downs on 06-18-2023 Eosinophils/100 WBC (Bld) 3 % Not Estab. [facility] Erythrocyte distribution wid th ratioOrdered By: Humberto Downs on 06-18-2023 Erythrocyte distribution width (RBC) [Ratio] 12.1 % 11.6-15.4 [facility] Laboratory - Chemistry and C hemistry - challengeOrdered By: Humberto Downs on 06-18-2023 ALP [Catalytic activity/Vol] 98 U/L 45-117 [facility] ALT [Catalytic activity/Vol] 33 U/L 16-61 [facility] CO2 [Moles/Vol] 29.0 mmol/L 21.0-32.0 [facility] Free T4 [Mass/Vol] 0.81 ng/dL 0.76-1.46 [facility] Globulin (S) [Mass/Vol] 3.6 g/dL 2.2-4.2 [facility] Urea nitrogen/Creatinine [Mass ratio] 11.6 mg/mg 10-20 [facility] Laboratory - Hematology and Cell countsOrdered By: Humberto Downs on 06-18-2023 Anisocytosis Ql (Bld) RARE [facility] Erythrocyte distribution width (RBC) [Entitic vol] 45.7 fL 35.1-43.9 [facility] Erythrocyte distribution width (RBC) [Ratio] 12.8 % 11.6-14.6 [facility] Immature granulocytes/100 WBC (Bld) 0.300 % 0.0-0.9 [facility] Comment on above: IG% - Immature Granu locytes (promyelocytes, myelocytes and metamyelocytes) > 1% indicates that a LEFT SHIFT is Present. Nucleated RBC/100 WBC (Bld) [Ratio] 0 % 0-5 [facility] Lymphocytes/100 WBC Auto (Bl d)Ordered By: Humberto Downs on 06-18-2023 Lymphocytes/100 WBC (Bld) 38 % Not Estab. [facility] MCHC Auto (RBC) [Mass/Vol]Or dered By: Humberto Downs on 06-18-2023 MCHC (RBC) [Mass/Vol] 33.2 g/dL 31.5-35.7 [facility] Macrocytes detectionOrdered By: Humberto Downs on 06-18-2023 Macrocytes Ql (Bld) RARE [facility] No Panel InformationOrdered By: Humberto Downs on 06-18-2023 Atypical Lymphocytes 1+ % [facility] Estimated GFR (MDRD) Amer 130 mL/min >60 [facility] Comment on above: GFR Calc Estimated GFR (MDRD) Non-Af Amer 108 mL/min >60 [facility] Comment on above: Non- GFR Calc HIV-1 RNA Ultraquantitative (PCR) 50 copies/mL . [facility] Comment on above: The reportable range for this assay is 20 to 10,000,000copies HIV-1 RNA/mL. Thyroid Stimulating Hormone (TSH) 0.86 uIU/mL 0.358-3.74 [facility] Nucleated RBC/100 WBC Auto ( Bld) [Ratio]Ordered By: Humberto Downs on 06-18-2023 Nucleated RBC/100 WBC (Bld) [Ratio] TNP [facility] Comment on above: Test not performed Percent of cells positive fo r CD4 antigenOrdered By: Humberto Downs on 06-18-2023 CD3+CD4+ (T4 helper) cells/100 cells (Unsp spec) 34.1 % 30.8-58.5 [facility] Plasma HIV 1 RNA viral load by probe and target amplification method (log number/voluOrdered By: Humberto Downs on 06-18-2023 HIV 1 RNA JOSE+probe [Log #/Vol] 1.699 . [facility] Comment on above: Result Units: log10c opy/mLPerformed at: - [facility] [address] [id number] Director: Weston Rodrigez MD, Phone: [phone] Platelets bldOrdered By: Bala Downs on 06-18-2023 Platelets (Bld) [#/Vol] 336 10*3/uL 150-450 [facility] RBC Auto (Bld) [#/Vol]Ordere d By: Humberto Downs on 06-18-2023 RBC (Bld) [#/Vol] 4.86 10*6/uL 4.14-5.80 [facility] RBC morphologyOrdered By: Yomaira Downs on 06-18-2023 RBC morphology finding Nom (Bld) N CHROM NORMAL NORM C&C [facility] Serum Valerie Vanessa virus cap darci IgG antibody assay (units/volume)Ordered By: Humberto Dwons on 06-18-2023 EBV capsid IgG Qn (S) 323.0 [arb'U]/mL 0.0-17.9 [facility] Comment on above: Negative <18.0 Equiv ocal 18.0 - 21.9 Positive >21.9 Serum Valerie Vanessa virus cap darci IgM antibody assay (units/volume)Ordered By: Humberto Downs on 06-18-2023 EBV capsid IgM Qn (S) [arb'U]/mL 0.0-35.9 [facility] Comment on above: Negative <36.0 Equiv ocal 36.0 - 43.9 Positive >43.9Performed at: [facility] [place] [id number] Director: Raimundo Corbin PhD, Phone: [phone] Serum Treponema species anti body detectionOrdered By: Humberto Downs on 06-18-2023 Treponema sp Ab Ql (S) Non-Reactive [facility] Serum or plasma albumin jazlyn urement (mass/volume)Ordered By: Humberto Downs on 06-18-2023 Albumin [Mass/Vol] 3.7 g/dL 3.2-5.0 [facility] Serum or plasma albumin/glob ulin mass ratioOrdered By: Humberto Downs on 06-18-2023 Albumin/Globulin [Mass ratio] 1.0 {ratio} 0.9-2.4 [facility] Serum or plasma calcium jazlyn urement (mass/volume)Ordered By: Humberto Downs on 06-18-2023 Calcium [Mass/Vol] 8.6 mg/dL 8.5-10.1 [facility] Serum or plasma creatinine m easurement (mass/volume)Ordered By: Humberto Downs on 06-18-2023 Creatinine [Mass/Vol] 0.86 mg/dL 0.70-1.30 [facility] Comment on above: The validity of the calculated GFR & GFRAA in patients over 70 years has not been determined. Clinical correlation is essential. Serum or plasma urea nitroge n measurement (mass/volume)Ordered By: Humberto Downs on 06-18-2023 Urea nitrogen [Mass/Vol] 10 mg/dL 7-18 [facility] Serum or plasma uric acid me asurement (mass/volume)Ordered By: Humberto Downs on 06-18-2023 Urate [Mass/Vol] 4.1 mg/dL 3.5-7.2 [facility] Comment on above: The drugs N-Acetylcy steine and Metamizole may falsely depress this assay. Thin prep Papanicolaou smear with manual screeningOrdered By: Humberto Downs on 06-18-2023 Thin prep Papanicolaou smear with manual screening 17 U/L 15-37 [facility] Thin prep Papanicolaou smear with manual screening 6 5-15 [facility] Thin prep Papanicolaou smear with manual screening 31.7 pg 26.6-33.0 [facility] Thin prep Papanicolaou smear with manual screening 9 % Not Estab. [facility] No Panel Informationon 01-28 [facility] Culture, urineOrdered By: Dr Zoey Downs on 11-29-2022 Bacteria identified Cx Nom (U) Culture exhibits no growth. [facility] Absolute immature granulocyt e countOrdered By: Dr. Downs on 11-27-2022 Immature granulocytes (Bld) [#/Vol] 0 10*3/uL 0.0-0.1 [facility] Absolute lymphocyte countOrd ered By: Dr. Downs on 11-27-2022 Lymphocytes Auto (Unsp spec) [#/Vol] 2.0 10*3/uL 0.7-3.1 [facility] Basophil percentageOrdered B y: Dr. Downs on 11-27-2022 Basophil percentage 0 SEEN /hpf 0-5 [facility] C. trachomatis DNA JOSE+probe Ql (Unsp spec) Negative Negative [facility] Chloride [Moles/Vol] 107 mmol/L 98-107 [facility] Glucose [Mass/Vol] 124 mg/dL 74-106 [facility] Comment on above: Fasting Glucose resu lt from 100 to 125 mg/dL suggests IMPAIRED HOMEOSTASIS per A.D.A. criteria. Monocytes (Bld) [#/Vol] 0.8 10*3/uL 0.1-0.9 [facility] Neutrophils (Bld) [#/Vol] 5.8 10*3/uL 1.4-7.0 [facility] Neutrophils/100 WBC (Bld) 64 % Not Estab. [facility] Potassium [Moles/Vol] 3.5 mmol/L 3.5-5.1 [facility] Sodium [Moles/Vol] 142 mmol/L 136-145 [facility] WBC (Bld) [#/Vol] 8.9 10*3/uL 3.4-10.8 [facility] Basophils/100 WBC Auto (Bld) Ordered By: Dr. Downs on 11-27-2022 Basophils/100 WBC (Bld) 1 % Not Estab. [facility] Bilirubin Test strip Ql (U)O rdered By: Dr. Downs on 11-27-2022 Bilirubin Ql (U) Negative Negative [facility] Blood basophils count (numbe r/volume)Ordered By: Dr. Downs on 11-27-2022 Basophils (Bld) [#/Vol] 0 10*3/uL 0.0-0.2 [facility] Blood eosinophils count (num minerva/volume)Ordered By: Dr. Downs on 11-27-2022 Eosinophils (Bld) [#/Vol] 0.1 10*3/uL 0.0-0.4 [facility] Blood hematocrit (volume fra ction)Ordered By: Dr. Downs on 11-27-2022 Hematocrit (Bld) [Volume fraction] 46.0 % 37.5-51.0 [facility] Blood hemoglobin measurement (mass/volume)Ordered By: Dr. Downs on 11-27-2022 Hemoglobin (Bld) [Mass/Vol] 14.9 g/dL 13.0-17.7 [facility] Blood immature cells/100 julia kocytesOrdered By: Dr. Downs on 11-27-2022 Immature cells/100 WBC (Bld) TNP [facility] Comment on above: Test not performed Blood immature granulocytes/ 100 leukocytesOrdered By: Dr. Downs on 11-27-2022 Immature granulocytes/100 WBC (Bld) 0 % Not Estab. [facility] Blood platelet mean volumeOr dered By: Dr. Downs on 11-27-2022 Platelet mean volume (Bld) [Entitic vol] 8.4 fL 6.2-12.0 [facility] Count of whole blood cells p ositive for CD3 and CD4 antigens (number/volume)Ordered By: Dr. Downs on 11-27-2022 CD3+CD4+ (T4 helper) cells (Bld) [#/Vol] 966 /uL [phone] [facility] Determination of erythrocyte mean corpuscular volume (MCV)Ordered By: Dr. Downs on 11-27-2022 MCV (RBC) [Entitic vol] 93 fL 79-97 [facility] Eosinophils/100 WBC Auto (Bl d)Ordered By: Dr. Downs on 11-27-2022 Eosinophils/100 WBC (Bld) 2 % Not Estab. [facility] Erythrocyte distribution wid th ratioOrdered By: Dr. Downs on 11-27-2022 Erythrocyte distribution width (RBC) [Ratio] 13.8 % 11.6-15.4 [facility] Interpretation of morphologi c examination of blood (narrative result)Ordered By: Dr. Downs on 11-27-2022 Morphology Lit (Bld) [Interp] TNP [facility] Comment on above: Test not performed Ketones Test strip Ql (U)Ord ered By: Dr. Downs on 11-27-2022 Ketones Ql (U) Negative Negative [facility] Laboratory - Chemistry and C hemistry - challengeOrdered By: Dr. Downs on 11-27-2022 CO2 [Moles/Vol] 26.0 mmol/L 21.0-32.0 [facility] Urea nitrogen/Creatinine [Mass ratio] 10.0 mg/mg 10 [facility] Laboratory - Hematology and Cell countsOrdered By: Dr. Downs on 11-27-2022 Erythrocyte distribution width (RBC) [Entitic vol] 48.6 fL 35.1-43.9 [facility] Erythrocyte distribution width (RBC) [Ratio] 14.1 % 11.6-14.6 [facility] Lymphocytes/100 WBC Auto (Bl d)Ordered By: Dr. Downs on 11-27-2022 Lymphocytes/100 WBC (Bld) 23 % Not Estab. [facility] MCHC Auto (RBC) [Mass/Vol]Or dered By: Dr. Downs on 11-27-2022 MCHC (RBC) [Mass/Vol] 32.4 g/dL 31.5-35.7 [facility] Mucus LM Ql (Urine sed)Order ed By: Dr. Downs on 11-27-2022 Mucus Ql (Urine sed) 0 SEEN /hpf [facility] Neisseria gonorrhoeae detect ion by PCROrdered By: Dr. Downs on 11-27-2022 N. gonorrhoeae DNA JOSE+probe Ql (Cervical mucus) Negative Negative [facility] Nitrite Test strip Ql (U)Ord ered By: Dr. Downs on 11-27-2022 Nitrite Ql (U) Negative Negative [facility] No Panel InformationOrdered By: Dr. Downs on 11-27-2022 Estimated GFR (MDRD) Amer 110 mL/min >60 [facility] Comment on above: GFR Calc Estimated GFR (MDRD) Non-Af Amer 91 mL/min >60 [facility] Comment on above: Non- GFR Calc Hepatitis A Antibody Total Negative Negative [facility] Comment on above: Performed at: [facility] [address] [id number] Director: Raimundo Corbin PhD, Phone: [phone] Hepatitis B Surface Antigen Non-Reactive Nonreactive [facility] Hepatitis C Antibody Non-Reactive Nonreactive [facility] Comment on above: Non Reactive: < 0.8 Equivocal: >/= 0.8 to < 1.0 Reactive: >/= 1.0The CDC recommends that a reactive/equivocal HCV antibody result be followed up by the HCV Nucleic Acid Amplificationtest (613396) HIV-1 RNA Ultraquantitative (PCR) < 20 copies/mL . [facility] Comment on above: HIV-1 RNA not detect edThe reportable range for this assay is 20 to 10,000,000copies HIV-1 RNA/mL. Nucleated RBC/100 WBC Auto ( Bld) [Ratio]Ordered By: Dr. Downs on 11-27-2022 Nucleated RBC/100 WBC (Bld) [Ratio] TNP [facility] Comment on above: Test not performed Percent of cells positive fo r CD4 antigenOrdered By: Dr. Downs on 05-10-2023 CD3+CD4+ (T4 helper) cells/100 cells (Unsp spec) 48.3 % 30.8-58.5 [facility] Plasma HIV 1 RNA viral load by probe and target amplification method (log number/voluOrdered By: Dr. Downs on 11-27-2022 HIV 1 RNA JOSE+probe [Log #/Vol] TNP [facility] Comment on above: Test not performedRe sult Units: grf47edxa/mLUnable to calculate result since non-numeric resultobtained for component test.Performed at: [facility] [id number] Director: Weston Rodrigez MD, Phone: [phone] Platelets bldOrdered By: Dr. Downs on 11-27-2022 Platelets (Bld) [#/Vol] 349 10*3/uL 150-450 [facility] Protein Test strip Ql (U)Ord ered By: Dr. Downs on 11-27-2022 Protein Ql (U) Negative Negative [facility] Qualitative QuantiFERON-TB g old in tube testOrdered By: Dr. Downs on 11-27-2022 M. tuberculosis tuberculin stim IFN-g Ql (Bld) 0.23 IU/mL . [facility] RBC Auto (Bld) [#/Vol]Ordere d By: Dr. Downs on 11-27-2022 RBC (Bld) [#/Vol] 4.94 10*6/uL 4.14-5.80 [facility] Serum hepatitis B virus surf hanna antibody IgG detectionOrdered By: Dr. Downs on 11-27-2022 HBV surface IgG Ql (S) Non-Reactive [facility] Comment on above: Non Reactive: Incons istent with immunity less than <10 mIU/mL Reactive: Consistent with immunity greater than or equal to 10 mIU/mL Serum or plasma calcium jazlyn urement (mass/volume)Ordered By: Dr. Downs on 11-27-2022 Calcium [Mass/Vol] 9.0 mg/dL 8.5-10.1 [facility] Serum or plasma creatinine m easurement (mass/volume)Ordered By: Dr. Downs on 11-27-2022 Creatinine [Mass/Vol] 1.00 mg/dL 0.70-1.30 [facility] Comment on above: The validity of the calculated GFR & GFRAA in patients over 70 years has not been determined. Clinical correlation is essential. Serum or plasma urea nitroge n measurement (mass/volume)Ordered By: Dr. Downs on 11-27-2022 Urea nitrogen [Mass/Vol] 10 mg/dL 7-18 [facility] Squamous epithelial cells de tection in urine sediment by light microscopyOrdered By: Dr. Downs on 11-27-2022 Epithelial cells.squamous LM Ql (Urine sed) 0 SEEN /hpf 0-5 [facility] Thin prep Papanicolaou smear with manual screeningOrdered By: Dr. Downs on 11-27-2022 Thin prep Papanicolaou smear with manual screening 9 5-15 [facility] Thin prep Papanicolaou smear with manual screening Comment . [facility] Comment on above: QuantiFERON-TB Gold Plus is [...] smear with manual screening 0.20 IU/mL . [facility] Thin prep Papanicolaou smear with manual screening 0.19 IU/mL . [facility] Thin prep Papanicolaou smear with manual screening > 10.00 IU/mL . [facility] Thin prep Papanicolaou smear with manual screening Negative Negative [facility] Comment on above: No response to M [...] smear with manual screening 30.2 pg 26.6-33.0 [facility] Thin prep Papanicolaou smear with manual screening 10 % Not Estab. [facility] Urine blood detectionOrdered By: Dr. Downs on 11-27-2022 RBC Ql (U) Negative Negative [facility] RBC Ql (U) 0 SEEN /hpf 0-5 [facility] Urine clarityOrdered By: Dr. Downs on 11-27-2022 Clarity (U) Clear Clear [facility] Urine color determinationOrd ered By: Dr. Downs on 11-27-2022 Color (U) Yellow Yellow [facility] Urine glucose detectionOrder ed By: Dr. Downs on 11-27-2022 Glucose Ql (U) Normal mg/dl Normal [facility] Urine leukocyte esterase det ection by dipstickOrdered By: Dr. Downs on 11-27-2022 Leukocyte esterase Test strip Ql (U) Negative Negative [facility] Urine pHOrdered By: Dr. Jyothi garvey on 11-27-2022 pH (U) 6.5 [pH] 5.0 - 8.0 [facility] Urine sediment bacteria coun t by microscopy (number/high power field)Ordered By: Dr. Downs on 11-27-2022 Bacteria LM.HPF (Urine sed) [#/Area] 0 /[HPF] None Seen [facility] Urine specific gravity measu rementOrdered By: Dr. Downs on 11-27-2022 Specific gravity (U) [Rel density] 1.015 1.002-1.030 [facility] Urobilinogen Auto test strip Ql (U)Ordered By: Dr. Downs on 11-27-2022 Urobilinogen Ql (U) Normal mg/dl Normal [facility] Absolute lymphocyte countOrd ered By: Dr. Wilson on 11-25-2022 Lymphocytes Auto (Unsp spec) [#/Vol] 2.95 10*3/uL 0.83-4.51 [facility] Basophil percentageOrdered B y: Dr. Wilson on 11-25-2022 Basophils/100 WBC (Bld) 0.7 % 0-1 [facility] Chloride [Moles/Vol] 108 mmol/L 98-107 [facility] Eosinophils/100 WBC (Bld) 3.8 % 0-5 [facility] Glucose [Mass/Vol] 91 mg/dL 74-106 [facility] Neutrophils (Bld) [#/Vol] 4.1 10*3/uL 2.0-7.7 [facility] Neutrophils/100 WBC (Bld) 48.6 % 47-70 [facility] Potassium [Moles/Vol] 3.9 mmol/L 3.5-5.1 [facility] Sodium [Moles/Vol] 141 mmol/L 136-145 [facility] WBC (Bld) [#/Vol] 8.4 10*3/uL 4.4-11.0 [facility] Blood erythrocytes count (nu mber/volume)Ordered By: Dr. Wilson on 11-25-2022 RBC (Bld) [#/Vol] 4.49 10*6/uL 4.6-6.2 [facility] Blood hemoglobin measurement (mass/volume)Ordered By: Dr. Wilson on 11-25-2022 Hemoglobin (Bld) [Mass/Vol] 14.3 g/dL 13.0-16.5 [facility] Blood lymphocytes/100 leukoc ytesOrdered By: Dr. Wilson on 11-25-2022 Lymphocytes/100 WBC (Bld) 35.2 % 19-41 [facility] Blood monocytes/100 leukocyt esOrdered By: Dr. Wilson on 11-25-2022 Monocytes/100 WBC (Bld) 11.6 % 0-10 [facility] Blood platelet mean volumeOr dered By: Dr. Wilson on 11-25-2022 Platelet mean volume (Bld) [Entitic vol] 8.3 fL 6.2-12.0 [facility] Determination of erythrocyte mean corpuscular volume (MCV)Ordered By: Dr. Wilson on 11-25-2022 MCV (RBC) [Entitic vol] 91.1 fL 80-94 [facility] Hematocrit Auto (Bld) [Volum e fraction]Ordered By: Dr. Wilson on 11-25-2022 Hematocrit (Bld) [Volume fraction] 40.9 % 40-54 [facility] Laboratory - Chemistry and C hemistry - challengeOrdered By: Dr. Wilson on 11-25-2022 CO2 [Moles/Vol] 28.0 mmol/L 21.0-32.0 [facility] Urea nitrogen/Creatinine [Mass ratio] 15.0 mg/mg 10-20 [facility] Laboratory - Hematology and Cell countsOrdered By: Dr. Wilson on 11-25-2022 Erythrocyte distribution width (RBC) [Entitic vol] 47.5 fL 35.1-43.9 [facility] Erythrocyte distribution width (RBC) [Ratio] 14.2 % 11.6-14.6 [facility] Immature granulocytes/100 WBC (Bld) 0.100 % 0.0-0.9 [facility] Comment on above: IG% - Immature Granu locytes (promyelocytes, myelocytes and metamyelocytes) > 1% indicates that a LEFT SHIFT is Present. MCH (RBC) [Entitic mass] 31.8 pg 27.0-32.0 [facility] Nucleated RBC/100 WBC (Bld) [Ratio] 0 % 0-5 [facility] MCHC Auto (RBC) [Mass/Vol]Or dered By: Dr. Wilson on 11-25-2022 MCHC (RBC) [Mass/Vol] 35.0 g/dL 32-36 [facility] No Panel InformationOrdered By: Dr. Wilson on 11-25-2022 Estimated Creatinine Clearance Calc 110.60 ml/min [facility] Estimated GFR (MDRD) Amer 142 mL/min >60 [facility] Comment on above: GFR Calc Estimated GFR (MDRD) Non-Af Amer 118 mL/min >60 [facility] Comment on above: Non- GFR Calc Troponin I High Sensitivity 3 pg/mL 3.0-78.0 [facility] Comment on above: Please Note: New Alen t Units and Gender Specific Reference Ranges. For more information see Policy Stat Procedure [place] High Sensitivity Troponin (TNIH) and attachments. Platelets bldOrdered By: Dr. Wilson on 11-25-2022 Platelets (Bld) [#/Vol] 285 10*3/uL 150-450 [facility] Serum or plasma calcium jazlyn urement (mass/volume)Ordered By: Dr. Wilson on 11-25-2022 Calcium [Mass/Vol] 8.9 mg/dL 8.5-10.1 [facility] Serum or plasma creatinine m easurement (mass/volume)Ordered By: Dr. Wilson on 11-25-2022 Creatinine [Mass/Vol] 0.80 mg/dL 0.70-1.30 [facility] Comment on above: The validity of the calculated GFR & GFRAA in patients over 70 years has not been determined. Clinical correlation is essential. Serum or plasma urea nitroge n measurement (mass/volume)Ordered By: Dr. Wilson on 11-25-2022 Urea nitrogen [Mass/Vol] 12 mg/dL 7-18 [facility] Thin prep Papanicolaou smear with manual screeningOrdered By: Dr. Wilson on 11-25-2022 Thin prep Papanicolaou smear with manual screening 5 5-15 [facility] Absolute lymphocyte countOrd ered By: Dr. Dee on 10-16-2022 Lymphocytes Auto (Unsp spec) [#/Vol] 2.69 10*3/uL 0.83-4.51 [facility] Basophil percentageOrdered B y: Dr. Dee on 10-16-2022 Basophils/100 WBC (Bld) 0.7 % 0-1 [facility] Chloride [Moles/Vol] 107 mmol/L 98-107 [facility] Eosinophils/100 WBC (Bld) 2.6 % 0-5 [facility] Glucose [Mass/Vol] 105 mg/dL 74-106 [facility] Comment on above: Fasting Glucose resu lt from 100 to 125 mg/dL suggests IMPAIRED HOMEOSTASIS per A.D.A. criteria. Neutrophils (Bld) [#/Vol] 3.7 10*3/uL 2.0-7.7 [facility] Neutrophils/100 WBC (Bld) 49.4 % 47-70 [facility] Potassium [Moles/Vol] 3.9 mmol/L 3.5-5.1 [facility] Sodium [Moles/Vol] 141 mmol/L 136-145 [facility] WBC (Bld) [#/Vol] 7.5 10*3/uL 4.4-11.0 [facility] Blood erythrocytes count (nu mber/volume)Ordered By: Dr. Dee on 10-16-2022 RBC (Bld) [#/Vol] 4.89 10*6/uL 4.6-6.2 [facility] Blood hemoglobin measurement (mass/volume)Ordered By: Dr. Dee on 10-16-2022 Hemoglobin (Bld) [Mass/Vol] 15.2 g/dL 13.0-16.5 [facility] Blood lymphocytes/100 leukoc ytesOrdered By: Dr. Dee on 10-16-2022 Lymphocytes/100 WBC (Bld) 36.1 % 19-41 [facility] Blood monocytes/100 leukocyt esOrdered By: Dr. Dee on 10-16-2022 Monocytes/100 WBC (Bld) 11.1 % 0-10 [facility] Blood platelet mean volumeOr dered By: Dr. Dee on 10-16-2022 Platelet mean volume (Bld) [Entitic vol] 8.5 fL 6.2-12.0 [facility] Determination of erythrocyte mean corpuscular volume (MCV)Ordered By: Dr. Dee on 10-16-2022 MCV (RBC) [Entitic vol] 92.2 fL 80-94 [facility] Hematocrit Auto (Bld) [Volum e fraction]Ordered By: Dr. Dee on 10-16-2022 Hematocrit (Bld) [Volume fraction] 45.1 % 40-54 [facility] Laboratory - Chemistry and C hemistry - challengeOrdered By: Dr. Dee on 10-16-2022 CO2 [Moles/Vol] 29.0 mmol/L 21.0-32.0 [facility] Urea nitrogen/Creatinine [Mass ratio] 9.6 mg/mg 10-20 [facility] Laboratory - Hematology and Cell countsOrdered By: Dr. Dee on 10-16-2022 Erythrocyte distribution width (RBC) [Entitic vol] 46.9 fL 35.1-43.9 [facility] Erythrocyte distribution width (RBC) [Ratio] 13.8 % 11.6-14.6 [facility] Immature granulocytes/100 WBC (Bld) 0.100 % 0.0-0.9 [facility] Comment on above: IG% - Immature Granu locytes (promyelocytes, myelocytes and metamyelocytes) > 1% indicates that a LEFT SHIFT is Present. MCH (RBC) [Entitic mass] 31.1 pg 27.0-32.0 [facility] Nucleated RBC/100 WBC (Bld) [Ratio] 0 % 0-[address] [facility] [address] [Mass/Vol]Or dered By: Dr. Dee on 10-16-2022 MCHC (RBC) [Mass/Vol] 33.7 g/dL 32-36 [facility] No Panel InformationOrdered By: Dr. Dee on 10-16-2022 Estimated Creatinine Clearance Calc 94.79 ml/min [facility] Estimated GFR (MDRD) Amer 118 mL/min >60 [facility] Comment on above: GFR Calc Estimated GFR (MDRD) Non-Af Amer 97 mL/min >60 [facility] Comment on above: Non- GFR Calc Platelets bldOrdered By: Dr. Dee on 10-16-2022 Platelets (Bld) [#/Vol] 310 10*3/uL 150-450 [facility] Serum or plasma calcium jazlyn urement (mass/volume)Ordered By: Dr. Dee on 10-16-2022 Calcium [Mass/Vol] 9.0 mg/dL 8.5-10.1 [facility] Serum or plasma creatinine m easurement (mass/volume)Ordered By: Dr. Dee on 10-16-2022 Creatinine [Mass/Vol] 0.94 mg/dL 0.70-1.30 [facility] Comment on above: The validity of the calculated GFR & GFRAA in patients over 70 years has not been determined. Clinical correlation is essential. Serum or plasma urea nitroge n measurement (mass/volume)Ordered By: Dr. Dee on 10-16-2022 Urea nitrogen [Mass/Vol] 9 mg/dL 7-18 [facility] Thin prep Papanicolaou smear with manual screeningOrdered By: Dr. Dee on 10-16-2022 Thin prep Papanicolaou smear with manual screening 5 5-15 [facility] Culture, urineOrdered By: Dr Zoey Downs on 09-22-2022 Bacteria identified Cx Nom (U) Culture exhibits no growth. [facility] Absolute immature granulocyt e countOrdered By: Dr. Downs on 09-20-2022 Immature granulocytes (Bld) [#/Vol] 0 10*3/uL 0.0-0.1 [facility] Absolute lymphocyte countOrd ered By: Dr. Downs on 09-20-2022 Lymphocytes Auto (Unsp spec) [#/Vol] 1.9 10*3/uL 0.7-3.1 [facility] Basophil percentageOrdered B y: Dr. Downs on 09-20-2022 Basophil percentage 0 SEEN /hpf 0-5 [facility] C. trachomatis DNA JOSE+probe Ql (Unsp spec) Negative Negative [facility] Chloride [Moles/Vol] 104 mmol/L 98-107 [facility] Glucose [Mass/Vol] 90 mg/dL 74-106 [facility] Monocytes (Bld) [#/Vol] 0.6 10*3/uL 0.1-0.9 [facility] Neutrophils (Bld) [#/Vol] 3.1 10*3/uL 1.4-7.0 [facility] Neutrophils/100 WBC (Bld) 54 % Not Estab. [facility] Potassium [Moles/Vol] 4.0 mmol/L 3.5-5.1 [facility] Sodium [Moles/Vol] 140 mmol/L 136-145 [facility] WBC (Bld) [#/Vol] 5.8 10*3/uL 3.4-10.8 [facility] Basophils/100 WBC Auto (Bld) Ordered By: Dr. Downs on 09-20-2022 Basophils/100 WBC (Bld) 1 % Not Estab. [facility] Bilirubin Test strip Ql (U)O rdered By: Dr. Downs on 09-20-2022 Bilirubin Ql (U) Negative Negative [facility] Blood basophils count (numbe r/volume)Ordered By: Dr. Downs on 09-20-2022 Basophils (Bld) [#/Vol] 0.1 10*3/uL 0.0-0.2 [facility] Blood eosinophils count (num minerva/volume)Ordered By: Dr. Downs on 09-20-2022 Eosinophils (Bld) [#/Vol] 0.1 10*3/uL 0.0-0.4 [facility] Blood hematocrit (volume fra ction)Ordered By: Dr. Downs on 09-20-2022 Hematocrit (Bld) [Volume fraction] 48.2 % 37.5-51.0 [facility] Blood hemoglobin measurement (mass/volume)Ordered By: Dr. Downs on 09-20-2022 Hemoglobin (Bld) [Mass/Vol] 15.8 g/dL 13.0-17.7 [facility] Blood immature cells/100 julia kocytesOrdered By: Dr. Downs on 09-20-2022 Immature cells/100 WBC (Bld) [facility] Comment on above: Test not performed Blood immature granulocytes/ 100 leukocytesOrdered By: Dr. Downs on 09-20-2022 Immature granulocytes/100 WBC (Bld) 0 % Not Estab. [facility] Blood platelet mean volumeOr dered By: Dr. Downs on 09-20-2022 Platelet mean volume (Bld) [Entitic vol] 8.4 fL 6.2-12.0 [facility] Count of whole blood cells p ositive for CD3 and CD4 antigens (number/volume)Ordered By: Dr. Downs on 09-20-2022 CD3+CD4+ (T4 helper) cells (Bld) [#/Vol] 562 /uL [phone] [facility] Determination of erythrocyte mean corpuscular volume (MCV)Ordered By: Dr. Downs on 09-20-2022 MCV (RBC) [Entitic vol] 94 fL 79-97 [facility] Eosinophils/100 WBC Auto (Bl d)Ordered By: Dr. Downs on 09-20-2022 Eosinophils/100 WBC (Bld) 1 % Not Estab. [facility] Erythrocyte distribution wid th ratioOrdered By: Dr. Downs on 09-20-2022 Erythrocyte distribution width (RBC) [Ratio] 13.1 % 11.6-15.4 [facility] Interpretation of morphologi c examination of blood (narrative result)Ordered By: Dr. Downs on 09-20-2022 Morphology Lit (Bld) [Interp] [facility] Comment on above: Test not performed Ketones Test strip Ql (U)Ord ered By: Dr. Downs on 09-20-2022 Ketones Ql (U) Negative Negative [facility] Laboratory - Chemistry and C hemistry - challengeOrdered By: Dr. Downs on 09-20-2022 CO2 [Moles/Vol] 30.0 mmol/L 21.0-32.0 [facility] Urea nitrogen/Creatinine [Mass ratio] 12.4 mg/mg 10-20 [facility] Laboratory - Hematology and Cell countsOrdered By: Dr. Downs on 09-20-2022 Erythrocyte distribution width (RBC) [Entitic vol] 46.0 fL 35.1-43.9 [facility] Erythrocyte distribution width (RBC) [Ratio] 13.5 % 11.6-14.6 [facility] Lymphocytes/100 WBC Auto (Bl d)Ordered By: Dr. Downs on 09-20-2022 Lymphocytes/100 WBC (Bld) 34 % Not Estab. [facility] MCHC Auto (RBC) [Mass/Vol]Or dered By: Dr. Downs on 09-20-2022 MCHC (RBC) [Mass/Vol] 32.8 g/dL 31.5-35.7 [facility] Mucus LM Ql (Urine sed)Order ed By: Dr. Downs on 09-20-2022 Mucus Ql (Urine sed) 0 SEEN /hpf [facility] Neisseria gonorrhoeae detect ion by PCROrdered By: Dr. Downs on 09-20-2022 N. gonorrhoeae DNA JOSE+probe Ql (Cervical mucus) Negative Negative [facility] Nitrite Test strip Ql (U)Ord ered By: Dr. Downs on 09-20-2022 Nitrite Ql (U) Negative Negative [facility] No Panel InformationOrdered By: Dr. Downs on 09-20-2022 Estimated GFR (MDRD) Amer 141 mL/min >60 [facility] Comment on above: GFR Calc Estimated GFR (MDRD) Non-Af Amer 116 mL/min >60 [facility] Comment on above: Non- GFR Calc Hepatitis A Antibody Total Negative Negative [facility] Comment on above: Performed at: [address] [id number] Director: Raimundo Corbin PhD, Phone: [phone] Hepatitis B Surface Antigen Non-Reactive Nonreactive [facility] Hepatitis C Antibody Non-Reactive Nonreactive [facility] Comment on above: Non Reactive: < 0.8 Equivocal: >/= 0.8 to < 1.0 Reactive: >/= 1.0The CDC recommends that a reactive/equivocal HCV antibody result be followed up by the HCV Nucleic Acid Amplificationtest (339415) HIV-1 RNA Ultraquantitative (PCR) 70 copies/mL . [facility] Comment on above: The reportable range for this assay is 20 to 10,000,000copies HIV-1 RNA/mL. Miscellaneous Test See comment [facility] Comment on above: TEST RESULT LIMITST- Lymphocyte Wilton/Suppressor Absolute CD 3 1294 /uL [phone] Absolute CD 4 Wil[place] 587 /uL [phone] Abs. CD 8 Suppressor [...] 0.0 x10E3/uL 0.0-0.1 _ TESTING PERFORMED AT [facility]. ORIGINAL REPORT ON FILE IN LAB CONTAINS ADDITIONAL TEST SITE INFORMATION. Trichomonas vaginalis (PCR) Negative Negative [facility] Nucleated RBC/100 WBC Auto ( Bld) [Ratio]Ordered By: Dr. Downs on 09-20-2022 Nucleated RBC/100 WBC (Bld) [Ratio] TNP [facility] Comment on above: Test not performed Percent of cells positive fo r CD4 antigenOrdered By: Dr. Downs on 09-20-2022 CD3+CD4+ (T4 helper) cells/100 cells (Unsp spec) 29.6 % 30.8-58.5 [facility] Plasma HIV 1 RNA viral load by probe and target amplification method (log number/voluOrdered By: Dr. Downs on 09-20-2022 HIV 1 RNA JOSE+probe [Log #/Vol] 1.845 . [facility] Comment on above: Result Units: log10c opy/mLPerformed at: [address] [id number] Director: Weston Rodrigez MD, Phone: [phone] Platelets bldOrdered By: Dr. Downs on 09-20-2022 Platelets (Bld) [#/Vol] 274 10*3/uL 150-450 [facility] Protein Test strip Ql (U)Ord ered By: Dr. Downs on 09-20-2022 Protein Ql (U) Negative Negative [facility] RBC Auto (Bld) [#/Vol]Ordere d By: Dr. Downs on 09-20-2022 RBC (Bld) [#/Vol] 5.13 10*6/uL 4.14-5.80 [facility] Serum hepatitis B virus surf hanna antibody IgG detectionOrdered By: Dr. Downs on 09-20-2022 HBV surface IgG Ql (S) Non-Reactive [facility] Comment on above: Non Reactive: Incons istent with immunity less than <10 mIU/mL Reactive: Consistent with immunity greater than or equal to 10 mIU/mL Serum or plasma calcium jazlyn urement (mass/volume)Ordered By: Dr. Downs on 09-20-2022 Calcium [Mass/Vol] 9.3 mg/dL 8.5-10.1 [facility] Serum or plasma creatinine m easurement (mass/volume)Ordered By: Dr. Downs on 09-20-2022 Creatinine [Mass/Vol] 0.81 mg/dL 0.70-1.30 [facility] Comment on above: The validity of the calculated GFR & GFRAA in patients over 70 years has not been determined. Clinical correlation is essential. Serum or plasma urea nitroge n measurement (mass/volume)Ordered By: Dr. Downs on 09-20-2022 Urea nitrogen [Mass/Vol] 10 mg/dL 7-18 [facility] Squamous epithelial cells de tection in urine sediment by light microscopyOrdered By: Dr. Downs on 09-20-2022 Epithelial cells.squamous LM Ql (Urine sed) 0 SEEN /hpf 0-5 [facility] Thin prep Papanicolaou smear with manual screeningOrdered By: Dr. Downs on 09-20-2022 Thin prep Papanicolaou smear with manual screening 6 5-15 [facility] Thin prep Papanicolaou smear with manual screening 30.8 pg 26.6-33.0 [facility] Thin prep Papanicolaou smear with manual screening 10 % Not Estab. [facility] Urine blood detectionOrdered By: Dr. Downs on 09-20-2022 RBC Ql (U) Negative Negative [facility] RBC Ql (U) 0 SEEN /hpf 0-5 [facility] Urine clarityOrdered By: Dr. Downs on 09-20-2022 Clarity (U) Clear Clear [facility] Urine color determinationOrd ered By: Dr. Downs on 09-20-2022 Color (U) Yellow Yellow [facility] Urine glucose detectionOrder ed By: Dr. Downs on 09-20-2022 Glucose Ql (U) Normal mg/dl Normal [facility] Urine leukocyte esterase det ection by dipstickOrdered By: Dr. Downs on 09-20-2022 Leukocyte esterase Test strip Ql (U) Negative Negative [facility] Urine pHOrdered By: Dr. Jyothi garvey on 09-20-2022 pH (U) 8.0 [pH] 5.0 - 8.0 [facility] Urine sediment bacteria coun t by microscopy (number/high power field)Ordered By: Dr. Downs on 09-20-2022 Bacteria LM.HPF (Urine sed) [#/Area] 0 /[HPF] None Seen [facility] Urine specific gravity measu rementOrdered By: Dr. Downs on 09-20-2022 Specific gravity (U) [Rel density] 1.010 1.002-1.030 [facility] Urobilinogen Auto test strip Ql (U)Ordered By: Dr. Downs on 09-20-2022 Urobilinogen Ql (U) Normal mg/dl Normal [facility] Influenza virus A and B and SARS-CoV-2 (COVID-19) Ag panel - Upper respiratory specimOrdered By: Dr. Riley on 09-03-2022 SARS-CoV-2 (COVID-19) RNA JOSE+probe Ql (Resp) [facility] Laboratory - Drug toxicology Ordered By: Dr. Riley on 09-03-2022 Amphetamines Ql (U) Negative <1000 ng/mL [facility] Benzodiazepines Ql (U) Negative < 200 ng/mL [facility] Cannabinoids Screen Ql (U) Negative < 50 ng/mL [facility] Cocaine Ql (U) Negative < 300 ng/mL [facility] Opiates Ql (U) Negative < 300 ng/mL [facility] No Panel InformationOrdered By: Dr. Riley on 09-03-2022 MDMA (Ecstasy) Screen Negative < 500 ng/mL [facility] Urine Barbiturates Screen Negative < 200 ng/mL [facility] Urine Drug Screen Comment [facility] Comment on above: CONFIRMATORY TESTING FOR ALL [...] Methadone Screen Negative < 300 ng/mL [facility] Urine phencyclidine (PCP) de tectionOrdered By: Dr. Riley on 09-03-2022 Phencyclidine Ql (U) Negative < 25 ng/mL [facility] Absolute lymphocyte countOrd ered By: Dr. Riley on 09-02-2022 Lymphocytes Auto (Unsp spec) [#/Vol] 1.33 10*3/uL 0.83-4.51 [facility] Amorphous sediment detection in urine sediment by light microscopyOrdered By: Dr. Riley on 09-02-2022 Amorphous sediment LM Ql (Urine sed) 2+ [facility] Basophil percentageOrdered B y: Dr. Riley on 09-02-2022 Basophil percentage 0 SEEN /hpf 0-5 [facility] C. trachomatis DNA JOSE+probe Ql (Unsp spec) Negative Negative [facility] Basophils/100 WBC (Bld) 0.6 % 0-1 [facility] Bilirubin [Mass/Vol] 0.30 mg/dL 0.20-1.00 [facility] Comment on above: For patients on eltr ombopag therapy, use of Dimension G[place]ner TBIL is not recommended. Chloride [Moles/Vol] 109 mmol/L 98-107 [facility] Eosinophils/100 WBC (Bld) 0.1 % 0-5 [facility] Glucose [Mass/Vol] 87 mg/dL 74-106 [facility] Neutrophils (Bld) [#/Vol] 4.1 10*3/uL 2.0-7.7 [facility] Neutrophils/100 WBC (Bld) 61.8 % 47-70 [facility] Potassium [Moles/Vol] 3.7 mmol/L 3.5-5.1 [facility] Protein [Mass/Vol] 6.5 g/dL 6.4-8.2 [facility] Sodium [Moles/Vol] 141 mmol/L 136-145 [facility] WBC (Bld) [#/Vol] 6.7 10*3/uL 4.4-11.0 [facility] Bilirubin Test strip Ql (U)O rdered By: Dr. Riley on 09-02-2022 Bilirubin Ql (U) Negative Negative [facility] Blood erythrocytes count (nu mber/volume)Ordered By: Dr. Riley on 09-02-2022 RBC (Bld) [#/Vol] 4.15 10*6/uL 4.6-6.2 [facility] Blood hemoglobin measurement (mass/volume)Ordered By: Dr. Riley on 09-02-2022 Hemoglobin (Bld) [Mass/Vol] 12.7 g/dL 13.0-16.5 [facility] Blood lymphocytes/100 leukoc ytesOrdered By: Dr. Riley on 09-02-2022 Lymphocytes/100 WBC (Bld) 19.9 % 19-41 [facility] Blood monocytes/100 leukocyt esOrdered By: Dr. Riley on 09-02-2022 Monocytes/100 WBC (Bld) 16.9 % 0-10 [facility] Blood platelet mean volumeOr dered By: Dr. Riley on 09-02-2022 Platelet mean volume (Bld) [Entitic vol] 8.9 fL 6.2-12.0 [facility] Determination of erythrocyte mean corpuscular volume (MCV)Ordered By: Dr. Riley on 09-02-2022 MCV (RBC) [Entitic vol] 93.0 fL 80-94 [facility] HIV 1 and HIV-2 antibody ass ay with HIV-1 p24 antigen detectionOrdered By: Dr. Riley on 09-02-2022 HIV 1+2 Ab+HIV1 p24 Ag IA Ql Preliminary Reactive Nonreactive [facility] Comment on above: Critical Result(s) C alled at: 02:42:29 09/03/2022 by: Hoang Mattson TO NICKOLAS MARIO RN (ED) Results read back by same. SEND OUT PRESUMPTIVE REACTIVE SPECIMENS TO [facility] TEST NUMBER [id number] FOR CONFIRMATION. Hematocrit Auto (Bld) [Volum e fraction]Ordered By: Dr. Riley on 09-02-2022 Hematocrit (Bld) [Volume fraction] 38.6 % 40-54 [facility] Ketones Test strip Ql (U)Ord ered By: Dr. Riley on 09-02-2022 Ketones Ql (U) Negative Negative [facility] Laboratory - Chemistry and C hemistry - challengeOrdered By: Dr. Riley on 09-02-2022 ALP [Catalytic activity/Vol] 72 U/L 45-117 [facility] ALT [Catalytic activity/Vol] 23 U/L 16-61 [facility] CK [Catalytic activity/Vol] 104 U/L 39-308 [facility] CO2 [Moles/Vol] 25.0 mmol/L 21.0-32.0 [facility] Globulin (S) [Mass/Vol] 2.8 g/dL 2.2-4.2 [facility] Urea nitrogen/Creatinine [Mass ratio] 13.0 mg/mg 10-20 [facility] Laboratory - Hematology and Cell countsOrdered By: Dr. Riley on 09-02-2022 Erythrocyte distribution width (RBC) [Entitic vol] 45.9 fL 35.1-43.9 [facility] Erythrocyte distribution width (RBC) [Ratio] 13.4 % 11.6-14.6 [facility] Immature granulocytes/100 WBC (Bld) 0.700 % 0.0-0.9 [facility] Comment on above: IG% - Immature Granu locytes (promyelocytes, myelocytes and metamyelocytes) > 1% indicates that a LEFT SHIFT is Present. MCH (RBC) [Entitic mass] 30.6 pg 27.0-32.0 [facility] Nucleated RBC/100 WBC (Bld) [Ratio] 0 % 0-5 [facility] MCHC Auto (RBC) [Mass/Vol]Or dered By: Dr. Riley on 09-02-2022 MCHC (RBC) [Mass/Vol] 32.9 g/dL 32-36 [facility] Mucus LM Ql (Urine sed)Order ed By: Dr. Riley on 09-02-2022 Mucus Ql (Urine sed) 0 SEEN /hpf [facility] Neisseria gonorrhoeae detect ion by PCROrdered By: Dr. Riley on 09-02-2022 N. gonorrhoeae DNA JOSE+probe Ql (Cervical mucus) Positive Negative [facility] Nitrite Test strip Ql (U)Ord ered By: Dr. Riley on 09-02-2022 Nitrite Ql (U) Negative Negative [facility] No Panel InformationOrdered By: Dr. Riley on 09-02-2022 D-Dimer Quantitative (PE/DVT) < 0.27 FEU/ug/m 0.27-0.49 [facility] Comment on above: NORMAL D-Dimer level (<0.50) indicates no DVT or PE. Estimated Creatinine Clearance Calc 120.98 ml/min [facility] Estimated GFR (MDRD) Amer 168 mL/min >60 [facility] Comment on above: GFR Calc Estimated GFR (MDRD) Non-Af Amer 139 mL/min >60 [facility] Comment on above: Non- GFR Calc Miscellaneous Test See comment [facility] Comment on above: TEST RESULT LIMITSHI V [...] Troponin I High Sensitivity 3 pg/mL 3.0-78.0 [facility] Comment on above: Please Note: New Alen t Units and Gender Specific Reference Ranges. For more information see Policy Stat Procedure [place] High Sensitivity Troponin (TNIH) and attachments. Platelets bldOrdered By: Dr. Riley on 09-02-2022 Platelets (Bld) [#/Vol] 200 10*3/uL 150-450 [facility] Protein Test strip Ql (U)Ord ered By: Dr. Riley on 09-02-2022 Protein Ql (U) Negative Negative [facility] Serum Treponema species anti body detectionOrdered By: Dr. Riley on 09-02-2022 Treponema sp Ab Ql (S) Non-Reactive [facility] Serum or plasma albumin jazlyn urement (mass/volume)Ordered By: Dr. Riley on 09-02-2022 Albumin [Mass/Vol] 3.7 g/dL 3.2-5.0 [facility] Serum or plasma albumin/glob ulin mass ratioOrdered By: Dr. Riley on 09-02-2022 Albumin/Globulin [Mass ratio] 1.3 {ratio} 0.9-2.4 [facility] Serum or plasma calcium jazlyn urement (mass/volume)Ordered By: Dr. Riley on 09-02-2022 Calcium [Mass/Vol] 8.6 mg/dL 8.5-10.1 [facility] Serum or plasma creatinine m easurement (mass/volume)Ordered By: Dr. Riley on 09-02-2022 Creatinine [Mass/Vol] 0.69 mg/dL 0.70-1.30 [facility] Comment on above: The validity of the calculated GFR & GFRAA in patients over 70 years has not been determined. Clinical correlation is essential. Serum or plasma urea nitroge n measurement (mass/volume)Ordered By: Dr. Riley on 09-02-2022 Urea nitrogen [Mass/Vol] 9 mg/dL 7-18 [facility] Squamous epithelial cells de tection in urine sediment by light microscopyOrdered By: Dr. Riley on 09-02-2022 Epithelial cells.squamous LM Ql (Urine sed) 0 SEEN /hpf 0-5 [facility] Thin prep Papanicolaou smear with manual screeningOrdered By: Dr. Riley on 09-02-2022 Thin prep Papanicolaou smear with manual screening 16 U/L 15-37 [facility] Thin prep Papanicolaou smear with manual screening 7 5-15 [facility] Urine blood detectionOrdered By: Dr. Riley on 09-02-2022 RBC Ql (U) Negative Negative [facility] RBC Ql (U) 0 SEEN /hpf 0-5 [facility] Urine clarityOrdered By: Dr. Riley on 09-02-2022 Clarity (U) Sl. Cloudy Clear [facility] Urine color determinationOrd ered By: Dr. Riley on 09-02-2022 Color (U) Yellow Yellow [facility] Urine glucose detectionOrder ed By: Dr. Riley on 09-02-2022 Glucose Ql (U) Normal mg/dl Normal [facility] Urine leukocyte esterase det ection by dipstickOrdered By: Dr. Riley on 09-02-2022 Leukocyte esterase Test strip Ql (U) Negative Negative [facility] Urine pHOrdered By: Dr. Niesha gutierrez on 09-02-2022 pH (U) 8.0 [pH] 5.0 - 8.0 [facility] Urine sediment bacteria coun t by microscopy (number/high power field)Ordered By: Dr. Riley on 09-02-2022 Bacteria LM.HPF (Urine sed) [#/Area] 2 /[HPF] None Seen [facility] Urine specific gravity measu rementOrdered By: Dr. Riley on 09-02-2022 Specific gravity (U) [Rel density] 1.015 1.002-1.030 [facility] Urobilinogen Auto test strip Ql (U)Ordered By: Dr. Riley on 09-02-2022 Urobilinogen Ql (U) Normal mg/dl Normal [facility] MRI FOOT/TOES WO/W IVCON RTo n 08-01-2022 [facility] XR Toes - right 3 Viewson IMPRESSION: Soft tissue calcifications adjacent to the first interphalangeal joint. Bus Girl: [facility] Transcribe Date/Time: Jun 19 2022 2:10P Dictated by : TIMOTHY BECKHAM MD This examination was interpreted and the report reviewed and electronically signed by: TIMOTHY BECKHAM MD on Jun 19 2022 2:11PM [facility] DIVISION OF RADIOLOGY * * *Final [...] first interphalangeal joint. DIVISION OF RADIOLOGY Provider, [facility] - 06/19/2022 * * *Final Report* * [...] calcifications adjacent to the first interphalangeal joint. Bus Girl: [facility] Transcribe Date/Time: Jun 19 2022 2:10P Dictated by : TIMOTHY BECKHAM MD This examination was interpreted and the report reviewed and electronically signed by: TIMOTHY BECKHAM MD on Jun 19 2022 2:11PM EST [facility] Radiology Study observation (narrative) [facility] XR Toes - right 3 ViewsOrder ed By: [facility] Provider on 06-19-2022 [facility] Absolute lymphocyte counton 03-21-2022 Lymphocytes Auto (Unsp spec) [#/Vol] 2.30 10*3/uL 0.83-4.51 [facility] Work Phone: Basophil percentageon 2021 Basophils/100 WBC (Bld) 0.5 % 0-1 [facility] Work Phone: Chloride [Moles/Vol] 105 mmol/L 98-107 [facility] Work Phone: [phone] Eosinophils/100 WBC (Bld) 3.2 % 0-5 [facility] Work Phone: [phone] Glucose [Mass/Vol] 81 mg/dL 74-106 [facility] Work Phone: [phone] Neutrophils (Bld) [#/Vol] 3.3 10*3/uL 2.0-7.7 [facility] Work Phone: [phone] Neutrophils/100 WBC (Bld) 49.8 % 47-70 [facility] Work Phone: [phone] Potassium [Moles/Vol] 3.7 mmol/L 3.5-5.1 [facility] Work Phone: [phone] Sodium [Moles/Vol] 139 mmol/L 136-145 [facility] Work Phone: WBC (Bld) [#/Vol] 6.6 10*3/uL 4.4-11.0 [facility] Work Phone: Blood erythrocytes count (nu mber/volume)on 03-21-2022 RBC (Bld) [#/Vol] 4.90 10*6/uL 4.6-6.2 [facility] Work Phone: Blood hemoglobin measurement (mass/volume)on 03-21-2022 Hemoglobin (Bld) [Mass/Vol] 15.1 g/dL 13.0-16.5 [facility] Work Phone: [phone] Blood lymphocytes/100 leukoc yteson 03-21-2022 Lymphocytes/100 WBC (Bld) 34.6 % 19-41 [facility] Work Phone: [phone] Blood monocytes/100 leukocyt eson 03-21-2022 Monocytes/100 WBC (Bld) 11.6 % 0-10 [facility] Work Phone: Blood platelet mean volumeon 03-21-2022 Platelet mean volume (Bld) [Entitic vol] 8.3 fL 6.2-12.0 [facility] Work Phone: Determination of erythrocyte mean corpuscular volume (MCV)on 03-21-2022 MCV (RBC) [Entitic vol] 91.2 fL 80-94 [facility] Work Phone: Hematocrit Auto (Bld) [Volum e fraction]on 03-21-2022 Hematocrit (Bld) [Volume fraction] 44.7 % 40-54 [facility] Work Phone: Laboratory - Chemistry and C hemistry - challengeon 03-21-2022 CO2 [Moles/Vol] 28.0 mmol/L 21.0-32.0 [facility] Work Phone: Urea nitrogen/Creatinine [Mass ratio] 8.2 mg/mg 10-20 [facility] Work Phone: Laboratory - Hematology and Cell countson 03-21-2022 Erythrocyte distribution width (RBC) [Entitic vol] 43.7 fL 35.1-43.9 [facility] Work Phone: Erythrocyte distribution width (RBC) [Ratio] 13.1 % 11.6-14.6 [facility] Work Phone: Immature granulocytes/100 WBC (Bld) 0.300 % 0.0-0.9 [facility] Work Phone: Comment on above: IG% - Immature Granu locytes (promyelocytes, myelocytes and metamyelocytes) > 1% indicates that a LEFT SHIFT is Present. MCH (RBC) [Entitic mass] 30.8 pg 27.0-32.0 [facility] Work Phone: Nucleated RBC/100 WBC (Bld) [Ratio] 0 % 0-5 [facility] Work Phone: MCHC Auto (RBC) [Mass/Vol]on 03-21-2022 MCHC (RBC) [Mass/Vol] 33.8 g/dL 32-36 [facility] Work Phone: No Panel Informationon 03-21 Estimated Creatinine Clearance Calc 108.75 ml/min [facility] Work Phone: Estimated GFR (MDRD) Amer 133 mL/min >60 [facility] Work Phone: Comment on above: GFR Calc Estimated GFR (MDRD) Non-Af Amer 110 mL/min >60 [facility] Work Phone: Comment on above: Non- GFR Calc Troponin I High Sensitivity 6 pg/mL 3.0-78.0 [facility] Work Phone: Comment on above: Please Note: New Alen t Units and Gender Specific Reference Ranges. For more information see Policy Stat Procedure Giltner High Sensitivity Troponin (TNIH) and attachments. Platelets bldon 03-21-2022 Platelets (Bld) [#/Vol] 262 10*3/uL 150-450 [facility] Work Phone: Serum or plasma calcium jazlyn urement (mass/volume)on 03-21-2022 Calcium [Mass/Vol] 8.9 mg/dL 8.5-10.1 [facility] Work Phone: Serum or plasma creatinine m easurement (mass/volume)on 03-21-2022 Creatinine [Mass/Vol] 0.85 mg/dL 0.70-1.30 [facility] Work Phone: Comment on above: The validity of the calculated GFR & GFRAA in patients over 70 years has not been determined. Clinical correlation is essential. Serum or plasma urea nitroge n measurement (mass/volume)on 03-21-2022 Urea nitrogen [Mass/Vol] 7 mg/dL 7-18 [facility] Work Phone: Thin prep Papanicolaou smear with manual screeningon 03-21-2022 Thin prep Papanicolaou smear with manual screening 6 5-15 [facility] Work Phone: Absolute lymphocyte counton 01-19-2022 Lymphocytes Auto (Unsp spec) [#/Vol] 2.21 10*3/uL 0.83-4.51 [facility] Work Phone: Basophil percentageon 2021 Basophil percentage 0-5 SEEN /hpf 0-5 [facility] Work Phone: Basophils/100 WBC (Bld) 0.6 % 0-1 [facility] Work Phone: Bilirubin [Mass/Vol] 0.30 mg/dL 0.20-1.00 [facility] Work Phone: Comment on above: For patients on eltr ombopag therapy, use of Dimension Giltner TBIL is not recommended. Chloride [Moles/Vol] 108 mmol/L 98-107 [facility] Work Phone: Eosinophils/100 WBC (Bld) 1.3 % 0-5 [facility] Work Phone: [phone] Glucose [Mass/Vol] 135 mg/dL 74-106 [facility] Work Phone: Comment on above: Fasting Glucose resu lt greater than or equal to 126 mg/dL suggests DIABETES MELLITUS per A.D.A. criteria. Neutrophils (Bld) [#/Vol] 7.0 10*3/uL 2.0-7.7 [facility] Work Phone: Neutrophils/100 WBC (Bld) 69.1 % 47-70 [facility] Work Phone: Potassium [Moles/Vol] 3.3 mmol/L 3.5-5.1 [facility] Work Phone: Protein [Mass/Vol] 7.0 g/dL 6.4-8.2 [facility] Work Phone: Sodium [Moles/Vol] 143 mmol/L 136-145 [facility] Work Phone: WBC (Bld) [#/Vol] 10.1 10*3/uL 4.4-11.0 [facility] Work Phone: Bilirubin Test strip Ql (U)o n 01-19-2022 Bilirubin Ql (U) Negative Negative [facility] Work Phone: Blood erythrocytes count (nu mber/volume)on 01-19-2022 RBC (Bld) [#/Vol] 5.02 10*6/uL 4.6-6.2 [facility] Work Phone: Blood hemoglobin measurement (mass/volume)on 01-19-2022 Hemoglobin (Bld) [Mass/Vol] 15.5 g/dL 13.0-16.5 [facility] Work Phone: Blood lymphocytes/100 leukoc yteson 01-19-2022 Lymphocytes/100 WBC (Bld) 21.9 % 19-41 [facility] Work Phone: Blood monocytes/100 leukocyt eson 01-19-2022 Monocytes/100 WBC (Bld) 6.7 % 0-10 [facility] Work Phone: Blood platelet mean volumeon 01-19-2022 Platelet mean volume (Bld) [Entitic vol] 8.8 fL 6.2-12.0 [facility] Work Phone: Determination of erythrocyte mean corpuscular volume (MCV)on 01-19-2022 MCV (RBC) [Entitic vol] 94.0 fL 80-94 [facility] Work Phone: Direct bilirubinon 2 Bilirubin.direct [Mass/Vol] 0.08 mg/dL 0.00-0.30 [facility] Work Phone: Hematocrit Auto (Bld) [Volum e fraction]on 01-19-2022 Hematocrit (Bld) [Volume fraction] 47.2 % 40-54 [facility] Work Phone: Ketones Test strip Ql (U)on 01-19-2022 Ketones Ql (U) 5 mg/dl Negative [facility] Work Phone: Laboratory - Chemistry and C hemistry - challengeon 01-19-2022 ALP [Catalytic activity/Vol] 81 U/L 45-117 [facility] Work Phone: ALT [Catalytic activity/Vol] 23 U/L 16-61 [facility] Work Phone: CO2 [Moles/Vol] 27.0 mmol/L 21.0-32.0 [facility] Work Phone: Globulin (S) [Mass/Vol] 3.2 g/dL 2.2-4.2 [facility] Work Phone: Urea nitrogen/Creatinine [Mass ratio] 7.7 mg/mg 10-20 [facility] Work Phone: Laboratory - Hematology and Cell countson 01-19-2022 Erythrocyte distribution width (RBC) [Entitic vol] 46.2 fL 35.1-43.9 [facility] Work Phone: Erythrocyte distribution width (RBC) [Ratio] 13.4 % 11.6-14.6 [facility] Work Phone: Immature granulocytes/100 WBC (Bld) 0.400 % 0.0-0.9 [facility] Work Phone: Comment on above: IG% - Immature Granu locytes (promyelocytes, myelocytes and metamyelocytes) > 1% indicates that a LEFT SHIFT is Present. MCH (RBC) [Entitic mass] 30.9 pg 27.0-32.0 [facility] Work Phone: Nucleated RBC/100 WBC (Bld) [Ratio] 0 % 0-5 [facility] Work Phone: MCHC Auto (RBC) [Mass/Vol]on 01-19-2022 MCHC (RBC) [Mass/Vol] 32.8 g/dL 32-36 [facility] Work Phone: Mucus LM Ql (Urine sed)on Mucus Ql (Urine sed) 1+ /hpf [facility] Work Phone: Nitrite Test strip Ql (U)on 01-19-2022 Nitrite Ql (U) Negative Negative [facility] Work Phone: No Panel Informationon 01-19 Estimated Creatinine Clearance Calc 90.74 ml/min [facility] Work Phone: Estimated GFR (MDRD) Amer 106 mL/min >60 [facility] Work Phone: Comment on above: GFR Calc Estimated GFR (MDRD) Non-Af Amer 87 mL/min >60 [facility] Work Phone: Comment on above: Non- GFR Calc Troponin I High Sensitivity < 3 pg/mL 3.0-78.0 [facility] Work Phone: Comment on above: Please Note: New Alen t Units and Gender Specific Reference Ranges. For more information see Policy Stat Procedure Giltner High Sensitivity Troponin (TNIH) and attachments. Platelets bldon 01-19-2022 Platelets (Bld) [#/Vol] 273 10*3/uL 150-450 [facility] Work Phone: Protein Test strip Ql (U)on 01-19-2022 Protein Ql (U) Negative Negative [facility] Work Phone: Serum or plasma albumin jazlyn urement (mass/volume)on 01-19-2022 Albumin [Mass/Vol] 3.8 g/dL 3.2-5.0 [facility] Work Phone: Serum or plasma calcium jazlyn urement (mass/volume)on 01-19-2022 Calcium [Mass/Vol] 9.2 mg/dL 8.5-10.1 [facility] Work Phone: Serum or plasma creatinine m easurement (mass/volume)on 01-19-2022 Creatinine [Mass/Vol] 1.04 mg/dL 0.70-1.30 [facility] Work Phone: Comment on above: The validity of the calculated GFR & GFRAA in patients over 70 years has not been determined. Clinical correlation is essential. Serum or plasma urea nitroge n measurement (mass/volume)on 01-19-2022 Urea nitrogen [Mass/Vol] 8 mg/dL 7-18 [facility] Work Phone: Squamous epithelial cells de tection in urine sediment by light microscopyon 01-19-2022 Epithelial cells.squamous LM Ql (Urine sed) 0-5 SEEN /hpf 0-5 [facility] Work Phone: Thin prep Papanicolaou smear with manual screeningon 01-19-2022 Thin prep Papanicolaou smear with manual screening 14 U/L 15-37 [facility] Work Phone: Thin prep Papanicolaou smear with manual screening 8 5-15 [facility] Work Phone: Urine blood detectionon 07-0 RBC Ql (U) Negative Negative [facility] Work Phone: RBC Ql (U) 0-5 SEEN /hpf 0-5 [facility] Work Phone: Urine clarityon 01-19-2022 Clarity (U) Clear Clear [facility] Work Phone: Urine color determinationon 01-19-2022 Color (U) Yellow Yellow [facility] Work Phone: Urine glucose detectionon Glucose Ql (U) Normal mg/dl Normal [facility] Work Phone: Urine leukocyte esterase det ection by dipstickon 01-19-2022 Leukocyte esterase Test strip Ql (U) 25 /ul Negative [facility] Work Phone: Urine pHon 01-19-2022 pH (U) 8.0 [pH] 5.0 - 8.0 [facility] Work Phone: Urine sediment bacteria coun t by microscopy (number/high power field)on 01-19-2022 Bacteria LM.HPF (Urine sed) [#/Area] 1 /[HPF] None Seen [facility] Work Phone: Urine specific gravity measu rementon 01-19-2022 Specific gravity (U) [Rel density] 1.010 1.002-1.030 [facility] Work Phone: Urobilinogen Auto test strip Ql (U)on 01-19-2022 Urobilinogen Ql (U) Normal mg/dl Normal [facility] Work Phone: Absolute lymphocyte counton 01-17-2022 Lymphocytes Auto (Unsp spec) [#/Vol] 2.99 10*3/uL 0.83-4.51 [facility] Work Phone: Basophil percentageon 2021 Basophil percentage 0-5 SEEN /hpf 0-5 [facility] Work Phone: Basophils/100 WBC (Bld) 0.7 % 0-1 [facility] Work Phone: Chloride [Moles/Vol] 108 mmol/L 98-107 [facility] Work Phone: Eosinophils/100 WBC (Bld) 1.8 % 0-5 [facility] Work Phone: [phone] Glucose [Mass/Vol] 97 mg/dL 74-106 [facility] Work Phone: [phone] Neutrophils (Bld) [#/Vol] 4.6 10*3/uL 2.0-7.7 [facility] Work Phone: [phone] Neutrophils/100 WBC (Bld) 50.7 % 47-70 [facility] Work Phone: [phone] Potassium [Moles/Vol] 3.6 mmol/L 3.5-5.1 [facility] Work Phone: [phone] Sodium [Moles/Vol] 141 mmol/L 136-145 [facility] Work Phone: WBC (Bld) [#/Vol] 9.1 10*3/uL 4.4-11.0 [facility] Work Phone: Bilirubin Test strip Ql (U)o n 01-17-2022 Bilirubin Ql (U) Negative Negative [facility] Work Phone: Blood erythrocytes count (nu mber/volume)on 01-17-2022 RBC (Bld) [#/Vol] 4.92 10*6/uL 4.6-6.2 [facility]: Blood hemoglobin measurement (mass/volume)on 01-17-2022 Hemoglobin (Bld) [Mass/Vol] 15.4 g/dL 13.0-16.5 [facility] Work Phone: Blood lymphocytes/100 leukoc yteson 01-17-2022 Lymphocytes/100 WBC (Bld) 32.9 % 19-41 [facility] Work Phone: Blood monocytes/100 leukocyt eson 01-17-2022 Monocytes/100 WBC (Bld) 13.7 % 0-10 [facility] Work Phone: Blood platelet mean volumeon 01-17-2022 Platelet mean volume (Bld) [Entitic vol] 8.7 fL 6.2-12.0 [facility] Work Phone: Determination of erythrocyte mean corpuscular volume (MCV)on 01-17-2022 MCV (RBC) [Entitic vol] 93.3 fL 80-94 [facility] Work Phone: Hematocrit Auto (Bld) [Volum e fraction]on 01-17-2022 Hematocrit (Bld) [Volume fraction] 45.9 % 40-54 [facility] Work Phone: Ketones Test strip Ql (U)on 01-17-2022 Ketones Ql (U) 15 mg/dl Negative [facility] Work Phone: Laboratory - Chemistry and C hemistry - challengeon 01-17-2022 CO2 [Moles/Vol] 25.0 mmol/L 21.0-32.0 [facility] Work Phone: Urea nitrogen/Creatinine [Mass ratio] 12.1 mg/mg 10-20 [facility] Work Phone: Laboratory - Hematology and Cell countson 01-17-2022 Erythrocyte distribution width (RBC) [Entitic vol] 45.5 fL 35.1-43.9 [facility] Work Phone: Erythrocyte distribution width (RBC) [Ratio] 13.3 % 11.6-14.6 [facility] Work Phone: Immature granulocytes/100 WBC (Bld) 0.200 % 0.0-0.9 [facility] Work Phone: Comment on above: IG% - Immature Granu locytes (promyelocytes, myelocytes and metamyelocytes) > 1% indicates that a LEFT SHIFT is Present. MCH (RBC) [Entitic mass] 31.3 pg 27.0-32.0 [facility] Work Phone: Nucleated RBC/100 WBC (Bld) [Ratio] 0 % 0-5 [facility] Work Phone: MCHC Auto (RBC) [Mass/Vol]on 01-17-2022 MCHC (RBC) [Mass/Vol] 33.6 g/dL 32-36 [facility] Work Phone: Mucus LM Ql (Urine sed)on Mucus Ql (Urine sed) 2+ /hpf [facility] Work Phone: Nitrite Test strip Ql (U)on 01-17-2022 Nitrite Ql (U) Negative Negative [facility] Work Phone: No Panel Informationon 01-17 Estimated Creatinine Clearance Calc 88.20 ml/min [facility] Work Phone: Estimated GFR (MDRD) Amer 102 mL/min >60 [facility] Work Phone: Comment on above: GFR Calc Estimated GFR (MDRD) Non-Af Amer 84 mL/min >60 [facility] Work Phone: Comment on above: Non- GFR Calc Platelets bldon 01-17-2022 Platelets (Bld) [#/Vol] 314 10*3/uL 150-450 [facility] Work Phone: Protein Test strip Ql (U)on 01-17-2022 Protein Ql (U) 15 mg/dl Negative [facility] Work Phone: Serum or plasma calcium jazlyn urement (mass/volume)on 01-17-2022 Calcium [Mass/Vol] 9.7 mg/dL 8.5-10.1 [facility] Work Phone: Serum or plasma creatinine m easurement (mass/volume)on 01-17-2022 Creatinine [Mass/Vol] 1.07 mg/dL 0.70-1.30 [facility] Work Phone: Comment on above: The validity of the calculated GFR & GFRAA in patients over 70 years has not been determined. Clinical correlation is essential. Serum or plasma urea nitroge n measurement (mass/volume)on 01-17-2022 Urea nitrogen [Mass/Vol] 13 mg/dL 7-18 [facility] Work Phone: Squamous epithelial cells de tection in urine sediment by light microscopyon 01-17-2022 Epithelial cells.squamous LM Ql (Urine sed) 0 SEEN /hpf 0-5 [facility] Work Phone: Thin prep Papanicolaou smear with manual screeningon 01-17-2022 Thin prep Papanicolaou smear with manual screening 8 5-15 [facility] Work Phone: Urine blood detectionon 12-21 RBC Ql (U) 150 /ul Negative [facility] Work Phone: RBC Ql (U) 10-25 SEEN /hpf 0-5 [facility] Work Phone: Urine clarityon 01-17-2022 Clarity (U) Clear Clear [facility] Work Phone: Urine color determinationon 01-17-2022 Color (U) Yellow Yellow [facility] Work Phone: Urine glucose detectionon Glucose Ql (U) Normal mg/dl Normal [facility] Work Phone: Urine leukocyte esterase det ection by dipstickon 01-17-2022 Leukocyte esterase Test strip Ql (U) 25 /ul Negative [facility] Work Phone: Urine pHon 01-17-2022 pH (U) 8.0 [pH] 5.0 - 8.0 [facility] Work Phone: Urine sediment bacteria coun t by microscopy (number/high power field)on 01-17-2022 Bacteria LM.HPF (Urine sed) [#/Area] RARE /hpf None Seen [facility] Work Phone: Urine specific gravity measu rementon 01-17-2022 Specific gravity (U) [Rel density] 1.020 1.002-1.030 [facility] Work Phone: Urobilinogen Auto test strip Ql (U)on 01-17-2022 Urobilinogen Ql (U) 4 mg/dl Normal [facility] Work Phone: Vital Signs Date Time Vital Sign Value Performing Clinician Facility 03-17-2025 14:37-0400 Body height 172.[address] Humberto Downs MD Work Phone: [phone])[phone] [place] [address] 03-17-2025 14:37-0400 Body mass index (BMI) [Ratio] 27.9 kg/m2 Dr. Humberto Downs MD Work Phone: 0(210)474-543737 [address] 03-17-2025 14:37-0400 Body temperature 98.6 [degF] Dr. Humberto Downs MD Work Phone: 5(228)938-737137 [address] 03-17-2025 14:37-0400 Body weight 83.[address] Humberto Downs MD Work Phone: 7(285)184-659337 [address] 03-17-2025 14:37-0400 Diastolic blood pressure 83 mm[Hg] Dr. Humberto Downs MD Work Phone: 5(476)389-150737 [address] 03-17-2025 14:37-0400 Heart rate 66 /min Dr. Humberto Downs MD Work Phone: 6(219)522-600637 [address] 03-17-2025 14:37-0400 Respiratory rate 16 /min Dr. Humberto Downs MD Work Phone: 8(401)105-146337 [address] 03-17-2025 14:37-0400 SaO2% (BldA) [Mass fraction] 99 % Dr. Humberto Downs MD Work Phone: 0(268)496-330337 [address] 03-17-2025 14:37-0400 Systolic blood pressure 127 mm[Hg] Dr. Humberto Downs MD Work Phone: [facility] 03-08-2025 12:56-0400 Body height 172.7 cm Gabby Christina MD Work Phone: [facility] 03-08-2025 12:56-0400 Body mass index (BMI) [Ratio] 27.02 kg/m2 Gabby Christina MD Work Phone: [facility] 03-08-2025 12:56-0400 Body temperature 98.4 [degF] Gabby Christina MD Work Phone: [facility] 03-08-2025 12:56-0400 Body weight 80.6 kg Gabby Christina MD Work Phone: [facility] 03-08-2025 12:56-0400 Diastolic blood pressure 74 mm[Hg] Gabby Christina MD Work Phone: [facility] 03-08-2025 12:56-0400 Heart rate 63 /min Gabby Christina MD Work Phone: [facility] 03-08-2025 12:56-0400 Respiratory rate 16 /min Gabby Christina MD Work Phone: [facility] 03-08-2025 12:56-0400 SaO2% (BldA) [Mass fraction] 99 % Gabby Christina MD Work Phone: [facility] 03-08-2025 12:56-0400 Systolic blood pressure 111 mm[Hg] Gabby Christina MD Work Phone: [facility] 02-14-2025 11:42-0400 Body height 172.[address] Humberto Downs MD Work Phone: [facility] 02-14-2025 11:42-0400 Body mass index (BMI) [Ratio] 27.1 kg/m2 Dr. Humberto Downs MD Work Phone: [facility] 02-14-2025 11:42-0400 Body temperature 100 [degF] Dr. Humberto Downs MD Work Phone: [facility] 02-14-2025 11:42-0400 Body weight 80.[address] Humberto Downs MD Work Phone: [facility] 02-14-2025 11:42-0400 Diastolic blood pressure 90 mm[Hg] Dr. Humberto Downs MD Work Phone: 0(452)902-597959 [place] [address] 02-14-2025 11:42-0400 Heart rate 63 /min Dr. Humberto Downs MD Work Phone: 5(153)904-938259 [place] [address] 02-14-2025 11:42-0400 Respiratory rate 16 /min Dr. Humberto Downs MD Work Phone: 2(757)383-098659 [place] [address] 02-14-2025 11:42-0400 SaO2% (BldA) [Mass fraction] 99 % Dr. Humberto Downs MD Work Phone: 9(082)390-527559 [place] [address] 02-14-2025 11:42-0400 Systolic blood pressure 135 mm[Hg] Dr. Humberto Downs MD Work Phone: 7(066)547-388359 [place] [address] 02-07-2025 13:33-0400 Body height 172.[address] Humberto Downs MD Work Phone: 4(092)527-828259 [place] [address] 02-07-2025 13:33-0400 Body mass index (BMI) [Ratio] 27.2 kg/m2 Dr. Humberto Downs MD Work Phone: 0(300)417-334559 [place] [address] 02-07-2025 13:33-0400 Body temperature 98.6 [degF] Dr. Humberto Downs MD Work Phone: 2(446)336-777059 [place] [address] 02-07-2025 13:33-0400 Body weight 81.[address] Humberto Downs MD Work Phone: 3(859)319-115359 [place] [address] 02-07-2025 13:33-0400 Diastolic blood pressure 82 mm[Hg] Dr. Humberto Downs MD Work Phone: 5(582)350-056759 [place] [address] 02-07-2025 13:33-0400 Heart rate 69 /min Dr. Humberto Downs MD Work Phone: 7(173)623-535759 [place] [address] 02-07-2025 13:33-0400 Respiratory rate 14 /min Dr. Humberto Downs MD Work Phone: 9(402)628-012059 [place] [address] 02-07-2025 13:33-0400 SaO2% (BldA) [Mass fraction] 99 % Dr. Humberto Downs MD Work Phone: 0(600)492-780259 [place] [address] 02-07-2025 13:33-0400 Systolic blood pressure 120 mm[Hg] Dr. Humberto Downs MD Work Phone: 9(819)792-373059 [place] [address] 02-07-2025 13:22-0400 Body height 172.[address] Humberto Downs MD Work Phone: 9(128)142-911659 [place] [address] 01-13-2025 14:46-0400 Body height 172.[address] Humberto Downs MD Work Phone: 9(747)605-053459 [place] [address] 01-13-2025 14:46-0400 Body mass index (BMI) [Ratio] 26.6 kg/m2 Dr. Humberto Downs MD Work Phone: 2(551)776-507259 [place] [address] 01-13-2025 14:46-0400 Body temperature 99.5 [degF] Dr. Humberto Downs MD Work Phone: 6(892)204-298959 [place] [address] 01-13-2025 14:46-0400 Body weight 79.[address] Humberto Downs MD Work Phone: 3(385)552-540059 [place] [address] 01-13-2025 14:46-0400 Diastolic blood pressure 91 mm[Hg] Dr. Humberto Downs MD Work Phone: 6(163)064-795959 [place] [address] 01-13-2025 14:46-0400 Heart rate 68 /min Dr. Humberto Downs MD Work Phone: 4(743)480-036659 [place] [address] 01-13-2025 14:46-0400 Respiratory rate 15 /min Dr. Humberto Downs MD Work Phone: 5(356)726-576559 [place] [address] 01-13-2025 14:46-0400 SaO2% (BldA) [Mass fraction] 99 % Dr. Humberto Downs MD Work Phone: 7(808)132-348459 [place] [address] 01-13-2025 14:46-0400 Systolic blood pressure 132 mm[Hg] Dr. Humberto Downs MD Work Phone: 4(899)988-744159 [place] [address] 01-05-2025 14:23-0400 Diastolic blood pressure 82 mm[Hg] Nurse Work Phone: [facility] 01-05-2025 14:23-0400 Systolic blood pressure 124 mm[Hg] Nurse Work Phone: [facility] 01-05-2025 14:20-0400 Body temperature 98.6 [degF] Nurse Work Phone: [facility] 01-05-2025 14:20-0400 Heart rate 67 /min Nurse Work Phone: [facility] 01-05-2025 14:20-0400 Respiratory rate 16 /min Nurse Work Phone: [facility] 01-05-2025 14:20-0400 SaO2% (BldA) [Mass fraction] 100 % Nurse Work Phone: [facility] 01-04-2025 13:26-0400 Body height 172.7 cm Magda Garcia MD Work Phone: [facility] 01-04-2025 13:26-0400 Body mass index (BMI) [Ratio] 26.3 kg/m2 Magda Garcia MD Work Phone: [facility] 01-04-2025 13:26-0400 Body temperature 98.29 [degF] Magda Garcia MD Work Phone: [facility] 01-04-2025 13:26-0400 Body weight 78.47 kg Magda Garcia MD Work Phone: [facility] 01-04-2025 13:26-0400 Diastolic blood pressure 92 mm[Hg] Magda Garcia MD Work Phone: [facility] 01-04-2025 13:26-0400 Heart rate 74 /min Magda Garcia MD Work Phone: [facility] 01-04-2025 13:26-0400 Respiratory rate 13 /min Magda Garcia MD Work Phone: [facility] 01-04-2025 13:26-0400 SaO2% (BldA) [Mass fraction] 99 % Magda Garcia MD Work Phone: [facility] 01-04-2025 13:26-0400 Systolic blood pressure 142 mm[Hg] Magda Garcia MD Work Phone: [facility] 12-30-2024 11:04-0400 Body height 172.7 cm Peng Dupree PRESSURIZATION MECH[employer]IC.[employer]ICER Work Phone: [facility] 12-30-2024 11:04-0400 Body mass index (BMI) [Ratio] 26.52 kg/m2 Peng Dupree PRESSURIZATION MECHANIC.COMM[employer] REIN[employer]MENT ACT OFFICER Work Phone: [facility] 12-30-2024 11:04-0400 Body weight 79.11 kg Peng Dupree PRESSURIZATION MECHANIC.COMMUN[employer] REIN[employer]MENT ACT OFFICER Work Phone: [facility] 12-30-2024 11:04-0400 Diastolic blood pressure 80 mm[Hg] Peng Dupree PRESSURIZATION MECHANIC.COMMUN[employer] RE[employer]MENT ACT OFFICER Work Phone: [facility] 12-30-2024 11:04-0400 Heart rate 85 /min Peng Dupree PRESSURIZATION MECHANIC.COMMUN[employer] REINVE[employer]MENT ACT OFFICER Work Phone: [facility] 12-30-2024 11:04-0400 SaO2% (BldA) [Mass fraction] 98 % Peng Dupree PRESSURIZATION MECHANIC.COMMUN[employer] REIN[employer]MENT ACT OFFICER Work Phone: [facility] 12-30-2024 11:04-0400 Systolic blood pressure 118 mm[Hg] Peng Dupree PRESSURIZATION MECHANIC.COMMUN[employer] REIN[employer]MENT ACT OFFICER Work Phone: [facility] 12-24-2024 10:55-0400 Body height 172.[address] Humberto Downs MD Work Phone: [facility] 12-24-2024 10:55-0400 Body weight 75.[address] Humberto Downs MD Work Phone: [facility] 12-24-2024 09:28-0400 Body temperature 98 [degF] Dr. Humberto Downs MD Work Phone: 7(612)546-337259 [place] [address] 12-24-2024 09:28-0400 Diastolic blood pressure 90 mm[Hg] Dr. Humberto Downs MD Work Phone: 1(955)881-899859 [place] [address] 12-24-2024 09:28-0400 Heart rate 72 /min Dr. Humberto Downs MD Work Phone: 4(156)508-982159 [place] [address] 12-24-2024 09:28-0400 Respiratory rate 15 /min Dr. Humberto Downs MD Work Phone: 0(540)236-903959 [place] [address] 12-24-2024 09:28-0400 SaO2% (BldA) [Mass fraction] 100 % Dr. Humberto Downs MD Work Phone: 8(764)047-665059 [place] [address] 12-24-2024 09:28-0400 Systolic blood pressure 122 mm[Hg] Dr. Humberto Downs MD Work Phone: 5(770)380-239759 [place] [address] 12-24-2024 01:51-0400 Body mass index (BMI) [Ratio] 25.2 kg/m2 Dr. Humberto Downs MD Work Phone: 9(161)150-305559 [place] [address] 12-23-2024 20:46-0400 Diastolic blood pressure 101 mm[Hg] Dr. Humberto Downs MD Work Phone: 8(341)791-700059 [place] [address] 12-23-2024 20:46-0400 Heart rate 73 /min Dr. Humberto Downs MD Work Phone: 6(035)790-266359 [place] [address] 12-23-2024 20:46-0400 Respiratory rate 13 /min Dr. Humberto Downs MD Work Phone: 1(314)476-141259 [place] [address] 12-23-2024 20:46-0400 SaO2% (BldA) [Mass fraction] 99 % Dr. Humberto Downs MD Work Phone: 8(522)669-733159 [place] [address] 12-23-2024 20:46-0400 Systolic blood pressure 135 mm[Hg] Dr. Humberto Downs MD Work Phone: 2(204)382-416259 [place] [address] 12-23-2024 18:42-0400 Body temperature 97.5 [degF] Dr. Humberto Downs MD Work Phone: 7(192)146-170159 [place] [address] 12-23-2024 16:58-0400 Body height 172.[address] Humberto Downs MD Work Phone: 4(775)356-367259 [place] [address] 12-23-2024 16:58-0400 Body mass index (BMI) [Ratio] 27.1 kg/m2 Dr. Humberto Downs MD Work Phone: 3(677)058-066659 [place] [address] 12-23-2024 16:58-0400 Body weight 80.[address] Humberto Downs MD Work Phone: 7(422)431-970659 [place] [address] 12-09-2024 11:09-0400 Body height 172.[address] Humberto Downs MD Work Phone: 6(838)753-323759 [place] [address] 12-09-2024 11:09-0400 Body mass index (BMI) [Ratio] 25.8 kg/m2 Dr. Humberto Downs MD Work Phone: 4(774)914-148959 [place] [address] 12-09-2024 11:09-0400 Body temperature 98.6 [degF] Dr. Humberto Downs MD Work Phone: 6(168)019-200159 [place] [address] 12-09-2024 11:09-0400 Body weight 77.[address] Humberto Downs MD Work Phone: 8(309)162-471459 [place] [address] 12-09-2024 11:09-0400 Diastolic blood pressure 101 mm[Hg] Dr. Humberto Downs MD Work Phone: 4(172)455-854259 [place] [address] 12-09-2024 11:09-0400 Heart rate 97 /min Dr. Humberto Downs MD Work Phone: 2(507)153-460359 [place] [address] 12-09-2024 11:09-0400 Respiratory rate 16 /min Dr. Humberto Downs MD Work Phone: 1(696)636-374159 [place] [address] 12-09-2024 11:09-0400 SaO2% (BldA) [Mass fraction] 97 % Dr. Humberto Downs MD Work Phone: 9(333)158-181859 [place] [address] 12-09-2024 11:09-0400 Systolic blood pressure 152 mm[Hg] Dr. Humberto Downs MD Work Phone: [facility] 11-24-2024 10:50-0400 Diastolic blood pressure 91 mm[Hg] Deborah Kendall MD Work Phone: [facility] 11-24-2024 10:50-0400 Heart rate 68 /min Deborah Kendall MD Work Phone: [facility] 11-24-2024 10:50-0400 Respiratory rate 16 /min Deborah Kendall MD Work Phone: [facility] 11-24-2024 10:50-0400 SaO2% (BldA) [Mass fraction] 100 % Deborah Kendall MD Work Phone: [facility] 11-24-2024 10:50-0400 Systolic blood pressure 131 mm[Hg] Deborah Kendall MD Work Phone: [facility] 11-24-2024 09:10-0400 Body height 172.7 cm Deborah Kendall MD Work Phone: [facility] 11-24-2024 09:10-0400 Body mass index (BMI) [Ratio] 25.24 kg/m2 Deborah Kendall MD Work Phone: [facility] 11-24-2024 09:10-0400 Body temperature 98.6 [degF] Deborah Kendall MD Work Phone: [facility] 11-24-2024 09:10-0400 Body weight 75.3 kg Deborah Kendall MD Work Phone: [facility] 11-09-2024 11:20-0400 Body mass index (BMI) [Ratio] 25.24 kg/m2 Cathi Charly PRESSURIZATION MECHANIC.[employer]MENT ACT OFFICER Work Phone: [facility] 11-09-2024 11:20-0400 Body weight 75.3 kg Cathi Charly PRESSURIZATION MECHANIC.COMMUNITY REINVESTMENT ACT OFFICER Work Phone: [facility] 11-09-2024 11:20-0400 Diastolic blood pressure 87 mm[Hg] Cathi Charly PRESSURIZATION MECHANIC.COMMUNITY REIN[employer]STMENT ACT OFFICER Work Phone: [facility] 11-09-2024 11:20-0400 Heart rate 88 /min Cathi Charly PRESSURIZATION MECHANIC.COMMUNITY REINVESTMENT ACT OFFICER Work Phone: [facility] 11-09-2024 11:20-0400 Respiratory rate 16 /min Cathi Charly PRESSURIZATION MECHANIC.COMMUNITY REINVESTMENT ACT OFFICER Work Phone: [facility] 11-09-2024 11:20-0400 SaO2% (BldA) [Mass fraction] 100 % Cathi Charly PRESSURIZATION MECHANIC.COMMUNITY REINVESTMENT ACT OFFICER Work Phone: [facility] 11-09-2024 11:20-0400 Systolic blood pressure 125 mm[Hg] Cathi Charly PRESSURIZATION MECHANIC.COMMUNITY REINVESTMENT ACT OFFICER Work Phone: [facility] 10-29-2024 11:44-0400 Body mass index (BMI) [Ratio] 25.97 kg/m2 Tali Caballero MD Work Phone: [facility] 10-29-2024 11:44-0400 Body temperature 97.5 [degF] Tali Caballero MD Work Phone: [facility] 10-29-2024 11:44-0400 Body weight 77.47 kg Tali Caballero MD Work Phone: [facility] 10-29-2024 11:44-0400 Diastolic blood pressure 90 mm[Hg] Tali Caballero MD Work Phone: [facility] 10-29-2024 11:44-0400 Heart rate 90 /min Tali Caballero MD Work Phone: [facility] 10-29-2024 11:44-0400 SaO2% (BldA) [Mass fraction] 99 % Tali Caballero MD Work Phone: [facility] 10-29-2024 11:44-0400 Systolic blood pressure 140 mm[Hg] Tali Caballero MD Work Phone: [facility] 09-13-2024 12:53-0500 Body mass index (BMI) [Ratio] 26.3 kg/m2 Dr. Humberto Downs MD Work Phone: 3(150)199-236759 [place] [address] 09-13-2024 12:53-0500 Body weight 78.[address] Humberto Downs MD Work Phone: 0(704)458-914659 [place] [address] 09-13-2024 12:53-0500 Diastolic blood pressure 88 mm[Hg] Dr. Humberto Downs MD Work Phone: 9(726)297-692059 [place] [address] 09-13-2024 12:53-0500 Heart rate 62 /min Dr. Humberto Downs MD Work Phone: 8(445)555-961359 [place] [address] 09-13-2024 12:53-0500 Respiratory rate 18 /min Dr. Humberto Downs MD Work Phone: 5(706)325-003059 [place] [address] 09-13-2024 12:53-0500 Systolic blood pressure 124 mm[Hg] Dr. Humberto Downs MD Work Phone: 5(632)366-810459 [place] [address] 08-11-2024 13:06-0500 Diastolic blood pressure 92 mm[Hg] Dr. Humberto Downs MD Work Phone: 2(675)904-214159 [place] [address] 08-11-2024 13:06-0500 Heart rate 67 /min Dr. Humberto Downs MD Work Phone: 9(871)246-026059 [place] [address] 08-11-2024 13:06-0500 Systolic blood pressure 124 mm[Hg] Dr. Humberto Downs MD Work Phone: 8(891)043-121159 [place] [address] 08-11-2024 09:47-0500 Body height 172.[address] Humberto Downs MD Work Phone: 7(866)817-798659 [place] [address] 08-11-2024 09:47-0500 Body mass index (BMI) [Ratio] 25.5 kg/m2 Dr. Humberto Downs MD Work Phone: 9(899)087-408459 [place] [address] 08-11-2024 09:47-0500 Body temperature 99.5 [degF] Dr. Humberto Downs MD Work Phone: 0(410)386-695359 [place] [address] 08-11-2024 09:47-0500 Body weight 76.[address] Humberto Downs MD Work Phone: [facility] 08-11-2024 09:47-0500 Respiratory rate 16 /min Dr. Humberto Downs MD Work Phone: [facility] 08-11-2024 09:47-0500 SaO2% (BldA) [Mass fraction] 99 % Dr. Humberto Downs MD Work Phone: [facility] 08-10-2024 11:29-0500 Body height 172.7 cm Tali Caballero MD Work Phone: [facility] 08-10-2024 11:29-0500 Body mass index (BMI) [Ratio] 25.64 kg/m2 Tali Caballero MD Work Phone: [facility] 08-10-2024 11:29-0500 Body weight 76.48 kg Tali Caballero MD Work Phone: [facility] 08-10-2024 11:29-0500 Diastolic blood pressure 82 mm[Hg] Tali Caballero MD Work Phone: [facility] 08-10-2024 11:29-0500 Heart rate 86 /min Tali Cabalelro MD Work Phone: [facility] 08-10-2024 11:29-0500 Respiratory rate 20 /min Tali Caballero MD Work Phone: [facility] 08-10-2024 11:29-0500 SaO2% (BldA) [Mass fraction] 98 % Tali Caballero MD Work Phone: [facility] 08-10-2024 11:29-0500 Systolic blood pressure 122 mm[Hg] Tali Caballero MD Work Phone: [facility] 07-02-2024 16:30-0500 Diastolic blood pressure 86 mm[Hg] Tyree Dangelo DO Work Phone: [facility] 07-02-2024 16:30-0500 Heart rate 64 /min Tyree Finelli DO Work Phone: [facility] 07-02-2024 16:30-0500 Respiratory rate 18 /min Tyree Finelli DO Work Phone: [facility] 07-02-2024 16:30-0500 SaO2% (BldA) [Mass fraction] 100 % Tyree Finelli DO Work Phone: [facility] 07-02-2024 16:30-0500 Systolic blood pressure 122 mm[Hg] Tyree Finelli DO Work Phone: [facility] 07-02-2024 12:36-0500 Body height 172.7 cm Tyree Finelli DO Work Phone: [facility] 07-02-2024 12:36-0500 Body mass index (BMI) [Ratio] 23.26 kg/m2 Tyree Finelli DO Work Phone: [facility] 07-02-2024 12:36-0500 Body temperature 98.2 [degF] Tyree Finelli DO Work Phone: [facility] 07-02-2024 12:36-0500 Body weight 69.4 kg Tyree Finelli DO Work Phone: [facility] 06-07-2024 15:17-0500 Body height 172.7 cm Tali Caballero MD Work Phone: [facility] 06-07-2024 15:17-0500 Body mass index (BMI) [Ratio] 23.26 kg/m2 Tali Caballero MD Work Phone: [facility] 06-07-2024 15:17-0500 Body weight 69.4 kg Tali Caballero MD Work Phone: [facility] 06-07-2024 15:17-0500 Diastolic blood pressure 86 mm[Hg] Tali Caballero MD Work Phone: [facility] 06-07-2024 15:17-0500 Heart rate 80 /min Tali Caballero MD Work Phone: [facility] 06-07-2024 15:17-0500 Respiratory rate 20 /min Tali Caballero MD Work Phone: [facility] 06-07-2024 15:17-0500 SaO2% (BldA) [Mass fraction] 99 % Tali Caballero MD Work Phone: [facility] 06-07-2024 15:17-0500 Systolic blood pressure 138 mm[Hg] Tali Caballero MD Work Phone: [facility] 03-23-2024 11:39-0400 Body height 172.7 cm Cathi Charly PRESSURIZATION MECHANIC.COMM[employer] REIN[employer]MENT ACT OFFICER Work Phone: [facility] 03-23-2024 11:39-0400 Body mass index (BMI) [Ratio] 23.63 kg/m2 Cathi Charly PRESSURIZATION MECHANIC.COMMUN[employer] REINVESTMENT ACT OFFICER Work Phone: [facility] 03-23-2024 11:39-0400 Body temperature 99.1 [degF] Cathi Charly PRESSURIZATION MECHANIC.COMMUNITY REINVESTMENT ACT OFFICER Work Phone: [facility] 03-23-2024 11:39-0400 Body weight 70.49 kg Cathi Charly PRESSURIZATION MECHANIC.COMMUNITY REINVESTMENT ACT OFFICER Work Phone: [facility] 03-23-2024 11:39-0400 Diastolic blood pressure 84 mm[Hg] Cathi Charly PRESSURIZATION MECHANIC.COMMUNITY REINVESTMENT ACT OFFICER Work Phone: [facility] 03-23-2024 11:39-0400 Heart rate 95 /min Cathi Charly PRESSURIZATION MECHANIC.COMMUNITY REINVESTMENT ACT OFFICER Work Phone: [facility] 03-23-2024 11:39-0400 SaO2% (BldA) [Mass fraction] 100 % Cathi Charly PRESSURIZATION MECHANIC.COMMUNITY REINVESTMENT ACT OFFICER Work Phone: [facility] 03-23-2024 11:39-0400 Systolic blood pressure 130 mm[Hg] Cathi Charly PRESSURIZATION MECHANIC.COMMUNITY REINVESTMENT ACT OFFICER Work Phone: [facility] 03-15-2024 12:48-0400 Body height 173.4 cm Meaghan Bloom DO Work Phone: [facility] 03-15-2024 12:48-0400 Body mass index (BMI) [Ratio] 23.4 kg/m2 Meaghan Bloom DO Work Phone: [facility] 03-15-2024 12:48-0400 Body temperature 98.91 [degF] Meaghan Bloom DO Work Phone: [facility] 03-15-2024 12:48-0400 Body weight 70.31 kg Meaghan Bolom DO Work Phone: [facility] 03-15-2024 12:48-0400 Diastolic blood pressure 89 mm[Hg] Meaghan Bynumi Work Phone: [facility] 03-15-2024 12:48-0400 Heart rate 86 /min Meaghan Bloom DO Work Phone: [facility] 03-15-2024 12:48-0400 SaO2% (BldA) [Mass fraction] 99 % Meaghan Bloom DO Work Phone: [facility] 03-15-2024 12:48-0400 Systolic blood pressure 149 mm[Hg] Meaghan Bloom DO Work Phone: [facility] 11-26-2023 16:02-0400 Heart rate 76 /min No Primary Care Physician [facility] 11-26-2023 16:02-0400 Respiratory rate 14 /min No Primary Care Physician [facility] 11-26-2023 16:02-0400 SaO2% (BldA) [Mass fraction] 100 % No Primary Care Physician [facility] 11-26-2023 15:03-0400 Body height 172.72 cm No Primary Care Physician [facility] 11-26-2023 15:03-0400 Body temperature 96.7 [degF] No Primary Care Physician [facility] 11-26-2023 15:03-0400 Diastolic blood pressure 87 mm[Hg] No Primary Care Physician [facility] 11-26-2023 15:03-0400 Systolic blood pressure 136 mm[Hg] No Primary Care Physician [facility] 11-13-2023 13:30-0400 Diastolic blood pressure 76 mm[Hg] DO Tommy Keister Work Phone: [facility] 11-13-2023 13:30-0400 Heart rate 71 /min DO Tommy Keister Work Phone: [facility] 11-13-2023 13:30-0400 Respiratory rate 18 /min DO Tommy Keister Work Phone: [facility] 11-13-2023 13:30-0400 SaO2% (BldA) [Mass fraction] 99 % DO Tommy Keister Work Phone: [facility] 11-13-2023 13:30-0400 Systolic blood pressure 114 mm[Hg] DO Tommy Keister Work Phone: [facility] 11-13-2023 10:08-0400 Body height 172.72 cm DO Tommy Keister Work Phone: [facility] 11-13-2023 10:08-0400 Body temperature 97.8 [degF] DO Tommy Guerraister Work Phone: [facility] 11-13-2023 10:08-0400 Body weight 66.5 kg DO Tommy Guerraister Work Phone: [facility] 08-28-2023 18:53-0500 Diastolic blood pressure 90 mm[Hg] No Primary Care Physician [facility] 08-28-2023 18:53-0500 Heart rate 78 /min No Primary Care Physician [facility] 08-28-2023 18:53-0500 Systolic blood pressure 136 mm[Hg] No Primary Care Physician [facility] 08-28-2023 18:47-0500 Respiratory rate 18 /min No Primary Care Physician [facility] 08-28-2023 18:47-0500 SaO2% (BldA) [Mass fraction] 100 % No Primary Care Physician [facility] 08-28-2023 17:07-0500 Body temperature 98.5 [degF] No Primary Care Physician [facility] 08-27-2023 23:07-0500 Body height 172.72 cm No Primary Care Physician [facility] 08-27-2023 23:07-0500 Body mass index (BMI) [Ratio] 21.9 kg/m2 No Primary Care Physician [facility] 08-27-2023 23:07-0500 Body weight 65.6 kg No Primary Care Physician [facility] 08-27-2023 22:04-0500 Diastolic blood pressure 88 mm[Hg] [facility] 08-27-2023 22:04-0500 Heart rate 98 /min [facility] 08-27-2023 22:04-0500 Respiratory rate 21 /min [facility] 08-27-2023 22:04-0500 SaO2% (BldA) [Mass fraction] 100 % [facility] 08-27-2023 22:04-0500 Systolic blood pressure 134 mm[Hg] [facility] 08-27-2023 16:27-0500 Body height 172.72 cm [facility] 08-27-2023 16:27-0500 Body mass index (BMI) [Ratio] 21.9 kg/m2 [facility] 08-27-2023 16:27-0500 Body temperature 98.4 [degF] [facility] 08-27-2023 16:27-0500 Body weight 65.6 kg [facility] 08-06-2023 15:12-0500 Body height 172.72 cm [facility] 08-06-2023 15:12-0500 Body mass index (BMI) [Ratio] 22.4 kg/m2 [facility] 08-06-2023 15:12-0500 Body temperature 97.4 [degF] [facility] 08-06-2023 15:12-0500 Body weight 66.9 kg [facility] 08-06-2023 15:12-0500 Diastolic blood pressure 97 mm[Hg] [facility] 08-06-2023 15:12-0500 Heart rate 125 /min [facility] 08-06-2023 15:12-0500 Respiratory rate 16 /min [facility] 08-06-2023 15:12-0500 SaO2% (BldA) [Mass fraction] 99 % [facility] 08-06-2023 15:12-0500 Systolic blood pressure 148 mm[Hg] [facility] 08-01-2023 03:48-0500 Diastolic blood pressure 60 mm[Hg] [facility] 08-01-2023 03:48-0500 Heart rate 87 /min [facility] 08-01-2023 03:48-0500 Respiratory rate 18 /min [facility] 08-01-2023 03:48-0500 SaO2% (BldA) [Mass fraction] 96 % [facility] 08-01-2023 03:48-0500 Systolic blood pressure 125 mm[Hg] [facility] 08-01-2023 02:15-0500 Body height 172.72 cm [facility] 08-01-2023 02:15-0500 Body mass index (BMI) [Ratio] 21.3 kg/m2 [facility] 08-01-2023 02:15-0500 Body temperature 99.1 [degF] [facility] 08-01-2023 02:15-0500 Body weight 63.63 kg [facility] 07-16-2023 16:51-0500 Body height 172.72 cm [facility] 07-16-2023 16:51-0500 Body mass index (BMI) [Ratio] 21.3 kg/m2 [facility] 07-16-2023 16:51-0500 Body temperature 97.5 [degF] [facility] 07-16-2023 16:51-0500 Body weight 63.6 kg [facility] 07-16-2023 16:51-0500 Diastolic blood pressure 98 mm[Hg] [facility] 07-16-2023 16:51-0500 Heart rate 54 /min [facility] 07-16-2023 16:51-0500 Respiratory rate 18 /min [facility] 07-16-2023 16:51-0500 SaO2% (BldA) [Mass fraction] 100 % [facility] 07-16-2023 16:51-0500 Systolic blood pressure 147 mm[Hg] [facility] 06-10-2023 22:44-0500 Heart rate 89 /min [facility] 06-10-2023 22:44-0500 Respiratory rate 17 /min [facility] 06-10-2023 22:44-0500 SaO2% (BldA) [Mass fraction] 98 % [facility] 06-10-2023 21:42-0500 Body height 172.72 cm [facility] 06-10-2023 21:42-0500 Body mass index (BMI) [Ratio] 21.3 kg/m2 [facility] 06-10-2023 21:42-0500 Body temperature 97.8 [degF] [facility] 06-10-2023 21:42-0500 Body weight 63.58 kg [facility] 06-10-2023 21:42-0500 Diastolic blood pressure 103 mm[Hg] [facility] 06-10-2023 21:42-0500 Systolic blood pressure 162 mm[Hg] [facility] 11-25-2022 22:10-0400 Diastolic blood pressure 63 mm[Hg] [facility] 11-25-2022 22:10-0400 Heart rate 70 /min [facility] 11-25-2022 22:10-0400 Respiratory rate 16 /min [facility] 11-25-2022 22:10-0400 SaO2% (BldA) [Mass fraction] 97 % [facility] 11-25-2022 22:10-0400 Systolic blood pressure 124 mm[Hg] [facility] 11-25-2022 17:02-0400 Body height 172.72 cm [facility] 11-25-2022 17:02-0400 Body mass index (BMI) [Ratio] 20.1 kg/m2 [facility] 11-25-2022 17:02-0400 Body temperature 97.4 [degF] [facility] 11-25-2022 17:02-0400 Body weight 60.1 kg [facility] 10-17-2022 10:00-0400 Respiratory rate 16 /min [facility] 10-16-2022 20:51-0400 Body height 172.72 cm [facility] 10-16-2022 20:51-0400 Body mass index (BMI) [Ratio] 20.2 kg/m2 [facility] 10-16-2022 20:51-0400 Body temperature 98.1 [degF] [facility] 10-16-2022 20:51-0400 Body weight 60.52 kg [facility] 10-16-2022 20:51-0400 Diastolic blood pressure 101 mm[Hg] [facility] 10-16-2022 20:51-0400 Heart rate 108 /min [facility] 10-16-2022 20:51-0400 SaO2% (BldA) [Mass fraction] 100 % [facility] 10-16-2022 20:51-0400 Systolic blood pressure 153 mm[Hg] [facility] 09-03-2022 03:52-0500 Diastolic blood pressure 91 mm[Hg] [facility] 09-03-2022 03:52-0500 Heart rate 85 /min [facility] 09-03-2022 03:52-0500 Respiratory rate 18 /min [facility] 09-03-2022 03:52-0500 SaO2% (BldA) [Mass fraction] 100 % [facility] 09-03-2022 03:52-0500 Systolic blood pressure 126 mm[Hg] [facility] 09-02-2022 21:21-0500 Body height 172.72 cm [facility] 09-02-2022 21:21-0500 Body mass index (BMI) [Ratio] 19 kg/m2 [facility] 09-02-2022 21:21-0500 Body temperature 98.3 [degF] [facility] 09-02-2022 21:21-0500 Body weight 56.69 kg [facility] 05-20-2022 22:29-0400 Diastolic blood pressure 78 mm[Hg] [facility] Work Phone: 05-20-2022 22:29-0400 Heart rate 72 /min [facility] Work Phone: 05-20-2022 22:29-0400 Respiratory rate 16 /min [facility] Work Phone: 05-20-2022 22:29-0400 SaO2% (BldA) [Mass fraction] 100 % [facility] Work Phone: 05-20-2022 22:29-0400 Systolic blood pressure 130 mm[Hg] [facility] Work Phone: 05-20-2022 19:48-0400 Body height 172.72 cm [facility] Work Phone: 05-20-2022 19:48-0400 Body mass index (BMI) [Ratio] 21 kg/m2 [facility] Work Phone: 05-20-2022 19:48-0400 Body temperature 97.9 [degF] [facility] Work Phone: 05-20-2022 19:48-0400 Body weight 62.9 kg [facility] Work Phone: 03-21-2022 14:46-0400 Diastolic blood pressure 98 mm[Hg] [facility] Work Phone: 03-21-2022 14:46-0400 Heart rate 82 /min [facility] Work Phone: 03-21-2022 14:46-0400 Respiratory rate 16 /min [facility] Work Phone: 03-21-2022 14:46-0400 SaO2% (BldA) [Mass fraction] 99 % [facility] Work Phone: 03-21-2022 14:46-0400 Systolic blood pressure 121 mm[Hg] [facility] Work Phone: 03-21-2022 12:09-0400 Body height 172.72 cm [facility] Work Phone: 03-21-2022 12:09-0400 Body mass index (BMI) [Ratio] 20.8 kg/m2 [facility] Work Phone: 03-21-2022 12:09-0400 Body temperature 97.3 [degF] [facility] Work Phone: 03-21-2022 12:09-0400 Body weight 62.2 kg [facility] Work Phone: 01-19-2022 17:11-0400 Diastolic blood pressure 84 mm[Hg] [facility] Work Phone: 01-19-2022 17:11-0400 Heart rate 93 /min [facility] Work Phone: 01-19-2022 17:11-0400 Respiratory rate 16 /min [facility] Work Phone: 01-19-2022 17:11-0400 SaO2% (BldA) [Mass fraction] 100 % [facility] Work Phone: 01-19-2022 17:11-0400 Systolic blood pressure 125 mm[Hg] [facility] Work Phone: 01-19-2022 15:22-0400 Body height 172.72 cm [facility] Work Phone: 01-19-2022 15:22-0400 Body mass index (BMI) [Ratio] 21.2 kg/m2 [facility] Work Phone: 01-19-2022 15:22-0400 Body temperature 97.7 [degF] [facility] [facility] Work Phone: 01-19-2022 15:22-0400 Body weight 63.5 kg [facility] Work Phone: 01-18-2022 01:32-0400 Diastolic blood pressure 84 mm[Hg] [facility] Work Phone: 01-18-2022 01:32-0400 Heart rate 89 /min [facility] Work Phone: 01-18-2022 01:32-0400 Respiratory rate 15 /min [facility] Work Phone: 01-18-2022 01:32-0400 SaO2% (BldA) [Mass fraction] 99 % [facility] Work Phone: 01-18-2022 01:32-0400 Systolic blood pressure 117 mm[Hg] [facility] Work Phone: 01-17-2022 22:02-0400 Body height 172.72 cm [facility] Work Phone: 01-17-2022 22:02-0400 Body mass index (BMI) [Ratio] 21.2 kg/m2 [facility] Work Phone: 01-17-2022 22:02-0400 Body temperature 98.6 [degF] [facility] Work Phone: 01-17-2022 22:02-0400 Body weight 63.5 kg [facility] Work Phone: Encounters Encounter Date Encounter Type Care Provider Facility Start: 03-23-2025 End: 03-24-2025 Get Medical Advice Gabby Christina MD Work Phone: [facility] Comment on above: Refill Start: 03-17-2025 End: 03-17-[address] Yang Del Rio MD -[facility] Work Phone: Start: 03-17-2025 End: 03-17-[address] Humberto Downs MD Work Phone: -[facility] Start: 03-08-2025 End: 03-08-2025 ambulatory GABBY CHRISTINA Facility:[facility] Start: 03-08-2025 End: 03-08-2025 Office outpatient new 45 minutes Gabby Christina MD Work Phone: [facility] Comment on above: Thromboembolic strok e (HCC) (Primary Dx); Hypertension, essential; Encounter for immunization; Hypoglycemia; Currently asymptomatic HIV infection, with history of HIV-related illness (HCC); Polycystic kidney disease; Mild intermittent asthma, unspecified whether complicated (HCC); Current episode of major depressive disorder without prior episode, unspecified depression episode severity; Generalized anxiety disorder; Drug-induced erectile dysfunction; Nicotine dependence, cigarettes, uncomplicated; Gastroesophageal reflux disease without esophagitis Start: 03-08-2025 End: 03-08-2025 ambulatory GABBY CHRISTINA Facility:[facility] Start: 03-07-2025 End: 03-08-2025 Refill Marcel Eddy Berrien PRESSURIZATION MECHANIC.COMMUNITY REINVESTMENT ACT OFFICER Work Phone: [facility] Comment on above: Refill Request Start: 03-06-2025 End: 03-08-2025 Refill Marcel A Berrien PRESSURIZATION MECHANIC.COMMUNITY REINVESTMENT ACT OFFICER Work Phone: [facility] Comment on above: Refill Request Start: 03-02-2025 End: 03-02-[address] Humberto Downs MD -Laboratory Work Phone: Start: 03-02-2025 End: 03-02-2025 Refill Gabby Christina MD Work Phone: [facility] Comment on above: Refill Request Start: 03-02-2025 End: 03-02-2025 ambulatory Humberto Downs Facility:[facility] Start: 02-14-2025 End: 02-14-[address] Yang Del Rio MD -[facility] Work Phone: Start: 02-14-2025 End: 02-14-[address] Humberto Downs MD Work Phone: -[facility] Start: 02-07-2025 End: 02-07-[address] Genaro Avalos MD -[facility] Start: 02-07-2025 End: 02-07-[address] Humberto Downs MD Work Phone: -[facility] Start: 01-14-2025 ambulatory MAGDA GARCIA Facility:[facility] Start: 01-14-2025 End: 01-14-2025 Subsequent hospital visit by physician Mri [facility] (I-Stat/1.5t) Work Phone: Radiology Comment on above: Recurrent seizures ( HCC) [G40.909] Start: 01-14-2025 End: 01-14-2025 ambulatory MAGDA GARCIA Facility:[id number] Start: 01-13-2025 End: 01-13-[address] Yang Del Rio MD -[facility] Work Phone: Start: 01-13-2025 End: 01-13-[address] Humberto Downs MD Work Phone: -[facility] Start: 01-13-2025 End: 01-13-[address] Yang Del Rio MD -[facility] Work Phone: Start: 01-13-2025 End: 01-13-[address] Humberto Downs MD Work Phone: [facility] Work Phone: Start: 01-05-2025 End: 01-05-2025 Nursing evaluation of patient and report Nurse Justice Varner Work Phone: [facility] Comment on above: Hypertension, unspec ified type (Primary Dx) Start: 01-05-2025 End: 01-05-2025 ambulatory GABBY CHRISTINA Facility:[facility] Start: 01-05-2025 End: 01-05-2025 Telephone encounter Gabby Christina MD Work Phone: [facility] Comment on above: nurse visit bp check Start: 01-04-2025 End: 01-04-2025 ambulatory MAGDA GARCIA Facility:[facility] Start: 01-04-2025 End: 01-04-2025 Patient encounter procedure Magda Garcia MD Work Phone: [facility] Comment on above: Recurrent seizures ( HCC) (Primary Dx) Start: 01-03-2025 End: 01-03-2025 ambulatory Peng Vance PRESSURIZATION MECHANIC.COMMUNITY REINVESTMENT ACT OFFICER Work Phone: Pulmonary Medicine Comment on above: CT Comparison Start: 01-03-2025 End: 01-03-2025 E-mail encounter from caregiver Peng Vance WILLIAM.COMMUNITY REINVESTMENT ACT OFFICER Work Phone: Pulmonary Medicine Start: 01-03-2025 End: 01-03-2025 Telephone encounter Anette Delvalle RN Pulmonary Medicine Comment on above: FILM SAC-DXYEJKTW-AJ LM Start: 12-30-2024 End: 12-30-2024 ambulatory PENG VANCE Facility:[facility] Start: 12-30-2024 End: 12-30-2024 Patient encounter procedure Peng Vance WILLIAM.COMMUNITY REINVESTMENT ACT OFFICER Work Phone: Pulmonary Medicine Comment on above: Lung nodules (Primar y Dx); Nicotine use disorder, F17.2 Start: 12-24-2024 Non-patient / Non-visit Dr. Gutierrez tiwari MD -[facility] Work Phone: Start: 12-23-2024 End: 12-24-2024 ambulatory Daija Lopez Facility:[facility] Start: 12-23-2024 End: 12-24-2024 Evaluation and management of inpatient Dr. Daija Lopez DO -Progressive Care Unit Work Phone: Start: 12-23-2024 End: 12-24-[address] Humberto Downs MD Work Phone: [facility] Work Phone: Start: 12-23-2024 End: 12-23-2024 ambulatory MARCEL NICHOLS Facility:[facility] Start: 12-23-2024 End: 12-23-2024 Subsequent hospital visit by physician [facility] Work Phone: Radiology Comment on above: Urinary retention [R 33.9] Start: 12-23-2024 End: 02-22-2025 Follow-up encounter Marcel Nichols APRN.COMMUNITY REINVESTMENT ACT OFFICER Work Phone: [facility] Start: 12-22-2024 End: 12-22-2024 ambulatory MARCEL NICHOLS Facility:[facility] Start: 12-22-2024 End: 12-22-2024 Subsequent hospital visit by physician [facility] (I-Stat) Work Phone: Cat Scan Comment on above: Lung nodules [R91.8] Start: 12-09-2024 End: 12-09-[address] Yang Del Rio MD -[facility] Work Phone: Start: 12-09-2024 End: 12-09-[address] Humberto Downs MD Work Phone: [facility] Work Phone: Start: 12-08-2024 End: 12-09-2024 ambulatory MARCEL NICHOLS Facility:[facility] Start: 12-01-2024 End: 12-01-2024 Refill Cathi Parks APRN.COMMUNITY REINVESTMENT ACT OFFICER Work Phone: General Surgery Comment on above: Med Change Request Start: 11-30-2024 End: 11-30-[address] Humberto Downs MD Work Phone: [facility] Work Phone: Start: 11-30-2024 End: 11-30-[address] Yang Del Rio MD -[facility] Work Phone: Start: 11-30-2024 End: 11-30-2024 ambulatory Yang Del Rio Facility:[facility] Start: 11-26-2024 End: 11-26-2024 Admission to same day surgery center Cathi Parks APRN.CNP Work Phone: General Surgery Comment on above: EGD/ Colonoscopy res ults Start: 11-26-2024 End: 11-26-2024 E-mail encounter from caregiver Cathi Parks APRN.CNP Work Phone: General Surgery Start: 11-26-2024 End: 01-26-2025 Follow-up encounter Cathi Parks APRN.CNP Work Phone: General Surgery Start: 11-24-2024 End: 11-27-2024 Evaluation and management of inpatient CIRO JEIMY Facility:[facility] Start: 11-24-2024 End: 11-24-2024 Admission to same day surgery center Morelia Velazquez MD, PhD Work Phone: Neurosurgery Comment on above: Stroke-like symptoms (Primary Dx) Start: 11-24-2024 End: 11-24-2024 Telemedicine consultation with patient Morelia Velazquez MD, PhD Work Phone: Neurosurgery Start: 11-24-2024 End: 11-24-2024 [facility] Facility[facility] Start: 11-24-2024 ambulatory [facility] Facility:[facility] Start: 11-24-2024 End: 11-24-2024 Subsequent hospital visit by physician Deborah Kendall MD Work Phone: [facility] Endoscopy Comment on above: Heart burn [R12] Start: 11-18-2024 End: 11-18-[address] Skye Lopez DO -Laboratory Work Phone: Start: 11-18-2024 End: 11-18-2024 ambulatory [facility] Facility:[facility] Start: 11-15-2024 End: 01-20-2025 Telephone encounter Cathi Parks APRN.COMMUNITY REINVESTMENT ACT OFFICER Work Phone: General Surgery Comment on above: 11-24-2024 EGD Colon oscopy Start: 11-09-2024 End: 11-09-2024 ambulatory CATHI PARKS Facility:[facility] Start: 11-09-2024 Encounter for genera l adult medical examination without abnormal findings CATHI PARKS [facility] Start: 11-09-2024 End: 11-09-2024 Patient encounter procedure Cathi Parks APRN.COMMUNITY REINVESTMENT ACT 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 Work Phone: General Surgery Comment on above: Duodenitis without b leeding (Primary Dx); Heart burn; Epigastric abdominal pain; History of colonic polyps; Wellness examination; Melena Start: 11-09-2024 End: 11-09-2024 Patient encounter status Cathi Parks APRN.COMMUNITY REINVESTMENT ACT OFFICER Work Phone: [facility] Start: 10-29-2024 End: 10-29-2024 ambulatory TALI MARIA VICTORIA CABALLERO Facility:[facility] Start: 10-29-2024 End: 10-29-2024 Patient encounter procedure Tali Caballero MD Work Phone: Endocrinology Comment on above: Low bone density for age (Primary Dx) Start: 10-28-2024 End: 10-28-[address] Humberto Downs MD Work Phone: [facility] Work Phone: Start: 10-28-2024 End: 10-28-[address] Yang Del Rio MD -Pulmonary Services/Neurology Work Phone: Start: 10-28-2024 End: 10-28-2024 ambulatory Yang Del Rio Facility:[facility] Start: 10-12-2024 End: 10-12-2024 ambulatory TALI CABALLERO Facility:[facility] Start: 09-16-2024 End: 10-25-2024 ambulatory Florence Macias ACCOUNT EXECUTIVE SALES REPRESENTATIVE Work Phone: [facility] Start: 09-16-2024 End: 10-25-2024 Chart abstracting Florence Macias ACCOUNT EXECUTIVE SALES REPRESENTATIVE Work Phone: JOSE[facility] Start: 09-13-2024 End: 09-13-[address] Rebekah Palomares MD -[facility] Work Phone: Start: 09-13-2024 End: 09-23-2024 ambulatory Meaghan Bloom DO Work Phone: Hematology/Oncology Comment on above: Test result Start: 09-08-2024 End: 09-08-2024 ambulatory NO ASSIGNED PCP GENERIC PROVIDER Start: 09-08-2024 End: 09-08-2024 Subsequent hospital visit by physician [address] Comment on above: Shortness of breath; Chest pain, unspecified Start: 08-25-[address] Ez Del Rio MD -Cardiovascular Services Work Phone: Start: 08-25-2024 End: 08-25-[address] Yang Del Rio MD -Laboratory Work Phone: Start: 08-25-2024 ambulatory Yangjavier Acevescheri Facilit y:[facility] Start: 08-25-2024 Non-patient / Non-visit Dr. Leyva johanne -[facility] Work Phone: Start: 08-25-2024 End: 08-25-2024 ambulatory Yang Acevesviky Facility:[facility] Start: 08-17-2024 End: 08-17-2024 Emergency department patient visit HUMBERTO DOWNS Facility:[facility] Start: 08-11-2024 End: 08-11-2024 Patient encounter procedure Cathi Parks APRNZoeyCOMMUNITY REINVESTMENT ACT OFFICER Work Phone: General Surgery Comment on above: Gastritis without bl eeding, unspecified chronicity, unspecified gastritis type (Primary Dx); Duodenitis without bleeding; Gastroesophageal reflux disease without esophagitis Start: 08-11-2024 End: 08-11-2024 ambulatory CATHI PARKS Facility:[facility] Start: 08-10-2024 End: 08-10-2024 ambulatory TALI CABALLERO Facility:[facility] Start: 08-10-2024 End: 08-10-2024 Patient encounter procedure Tali Caballero MD Work Phone: Endocrinology Comment on above: Osteopenia of lumbar spine (Primary Dx); Low testosterone Start: 08-05-2024 ambulatory Yang Acevesviky Facilit y:[facility] Start: 07-11-2024 End: 07-11-2024 Emergency department patient visit HUMBERTO DOWNS Facility:[facility] Start: 07-09-2024 End: 09-30-2024 ambulatory Venus Abernathy RW Start: 07-09-2024 End: 09-30-2024 Chart abstracting Venus ABERNATHY Start: 07-02-2024 ambulatory CATHI PARKS Facilit y:[facility] Start: 07-02-2024 End: 07-02-2024 Subsequent hospital visit by physician Tyree Dangelo DO Work Phone: [facility] Endoscopy Comment on above: History of colonic p olyps [Z86.0100] Start: 06-07-2024 End: 06-07-2024 ambulatory TALI CABALLERO Facility:[facility] Start: 06-07-2024 End: 06-07-2024 Patient encounter procedure Tali Caballero MD Work Phone: Endocrinology Comment on above: Osteopenia of lumbar spine Start: 06-07-2024 End: 06-07-2024 ambulatory [facility] Facility:[facility] Start: 05-27-2024 End: 05-27-2024 ambulatory [facility] Facility:[facility] Start: 05-17-2024 End: 05-18-2024 Emergency department patient visit [facility] Facility:[facility] Start: 05-17-2024 End: 05-17-2024 ambulatory [facility] Facility:[facility] Start: 05-13-2024 End: 05-13-2024 ambulatory NONE PHYSICIAN Facility:A Start: 05-13-2024 End: 05-13-2024 Patient encounter procedure PHY WO ID REFERRING [facility] Start: 04-23-2024 ambulatory [facility] Facili ty:[facility] Start: 04-16-2024 End: 04-20-2024 Telephone encounter Meaghan Bloom DO Work Phone: Hematology/Oncology Comment on above: Results Start: 04-14-2024 End: 04-14-2024 ambulatory [facility] Facility:[facility] Start: 04-01-2024 End: 04-01-2024 ambulatory MEAGHAN BLOOM Facility:[facility] Start: 04-01-2024 End: 04-01-2024 Subsequent hospital visit by physician Bone Density [facility] Work Phone: Radiology Comment on above: Bony sclerosis [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 2] Start: 03-31-2024 End: 03-31-2024 Admission to same day surgery center Cathi Parks APRN.CNP Work Phone: General Surgery Comment on above: CT scan Start: 03-31-2024 End: 03-31-2024 E-mail encounter from caregiver Cathi Parks VANDA Work Phone: General Surgery Start: 03-31-2024 End: 03-31-2024 ambulatory Humberto Fontaineer Facility:[facility] Start: 03-30-2024 End: 03-31-2024 ambulatory CATHI PARKS Facility:[facility] Start: 03-30-2024 End: 03-30-2024 Subsequent hospital visit by physician Radha [facility] (I-Stat) Work Phone: Cat Scan Comment on above: Diarrhea, unspecifie d type [R19.7] Start: 03-23-2024 End: 05-25-2024 Telephone encounter Cathi Charly DC Work Phone: General Surgery Comment on above: Request [facility] Records Patient Update Start: 03-23-2024 End: 03-23-2024 ambulatory CATHI PARKS Facility:[facility] Start: 03-23-2024 End: 03-23-2024 Patient encounter procedure Cathi Parks VANDA Work Phone: General Surgery Comment on above: [...] hospital visit by physician Mayte [facility] Jocelyn Hendrix Work Phone: Radiology Comment on [...] Meaghan Bloom DO Work Phone: Hematology/Oncology Start: 02-27-2024 Telephone encounter Meaghan romero DO Work Phone: Hematology/Oncology Comment on above: New Patient Start: 02-26-2024 E-mail encounter anita mills caregiver Mojgan Glenn THOMAS.COMMUNITY REINVESTMENT ACT OFFICER Work Phone: [facility] Start: 02-26-2024 Follow-up encounter Mojgan Orozco ams PRESSURIZATION MECHANIC.COMMUNITY REINVESTMENT ACT OFFICER Work Phone: [facility] Comment on above: Follow up Start: 02-26-2024 End: 02-26-2024 Patient encounter procedure Mojgan Elizabeth PRESSURIZATION MECHANIC.COMMUNITY REINVESTMENT ACT OFFICER Work Phone: [facility] Comment on above: Abnormal finding on imaging (Primary Dx); Osteopenia of other site; Bony sclerosis; Does not have primary care provider Start: 02-26-2024 End: 02-26-2024 Telemedicine consultation with patient Mojgan Glenn THOMAS.COMMUNITY REINVESTMENT ACT OFFICER Work Phone: [facility] Start: 02-17-2024 End: 05-06-2024 Telephone encounter Levi Alaniz PRESSURIZATION MECHANIC.COMMUNITY REINVESTMENT ACT OFFICER Work Phone: [facility] Comment on above: Actionable Findings Follow Up Start: 02-16-2024 E-mail encounter anita mills caregiver Alanis Cuba PA-C Work Phone: [facility] Start: 02-16-2024 Follow-up encounter Alanis epperson PA-C Work Phone: [facility] Comment on above: actionable finding f ollow up Start: 01-04-2024 End: 01-05-2024 Emergency department patient visit JOHN Degroot TRISH [facility] Start: 11-26-2023 End: 11-26-2023 Emergency department patient visit No Primary Care Physician [facility]Emergency [facility] Work Phone: Start: 11-13-2023 End: 11-13-2023 Emergency department patient visit Tommy Swanson Facility:[facility] Start: 11-13-2023 End: 11-13-2023 Emergency department patient visit DO Tommy Swanson Work Phone: [facility] Work Phone: Start: 09-04-2023 End: 09-20-2024 ambulatory Venus Abernathy RW Start: 09-04-2023 End: 09-20-2024 Chart abstracting Venus ABERNATHY Start: 08-28-2023 Non-patient / Non-visit No [facility] Physician [facility] Start: 08-28-2023 Non-patient / Non-visit No [facility] Physician [facility] Work Phone: Start: 08-27-2023 Non-patient / Non-visit No [facility] Physician [facility] Work Phone: Start: 08-27-2023 End: 08-28-2023 Evaluation and management of inpatient [facility]Progressive Care Unit Work Phone: Start: 08-27-2023 End: 08-28-2023 observation encounter No Primary Care Physician [facility] Work Phone: Start: 08-06-2023 End: 08-06-2023 Emergency department patient visit [facility]Emer[facility] Work Phone: Start: 08-01-2023 End: 08-01-2023 Emergency department patient visit [facility] Work Phone: Start: 07-16-2023 End: 07-16-2023 [facility] Start: 06-18-2023 End: 06-18-2023 ambulatory [facility] Work Phone: Start: 06-18-2023 End: 06-18-2023 [facility] Start: 06-10-2023 End: 06-10-2023 Emergency department patient visit [facility] Work Phone: Start: 04-18-2023 ambulatory PATRICIA Urena He alth [...] End: 01-28-2023 Subsequent hospital visit by physician [facility] Work Phone: Radiology Comment on above: Pain of toe of right foot [M79.674] Start: 01-28-2023 End: 01-28-2023 Patient encounter procedure Tj Sorto Work Phone: Podiatry Comment on above: Pain of toe of right foot (Primary Dx); Soft tissue mass; Cellulitis and abscess of toe of right foot Start: 11-27-2022 End: 11-27-2022 ambulatory [facility] Work Phone: Start: 11-27-2022 End: 11-27-2022 Patient encounter procedure [facility] Start: 11-25-2022 End: 11-25-2022 [facility] Start: 10-16-2022 End: 10-17-2022 [facility] Start: 09-20-2022 End: 09-20-2022 ambulatory [facility] Work Phone: Start: 09-20-2022 End: 09-20-2022 Patient encounter procedure [facility] Start: 09-02-2022 End: 09-03-2022 [facility] Start: 08-01-2022 End: 08-01-2022 Subsequent hospital visit by physician Mri Radio [facility] (I-Stat/1.5t) Work Phone: Radiology Comment on above: Mass of right foot [ R22.41] Start: 07-25-2022 End: 07-25-2022 Patient encounter procedure Tj Sorto Work Phone: Podiatry Comment on above: Soft tissue mass (Pr imary Dx); Pain of toe of right foot; Diminished pulses in lower extremity; Mass of right foot Start: 06-24-2022 ambulatory Pcp ([facility]) [facility] Start: 06-19-2022 End: 06-19-2022 Subsequent hospital visit by physician [facility] Work Phone: Radiology Comment on above: Pain of toe of right foot [M79.674] Start: 05-20-2022 End: 05-20-2022 Emergency department patient visit [facility] Start: 03-21-2022 End: 03-21-2022 Emergency department patient visit [facility] Start: 01-19-2022 End: 01-19-2022 Emergency department patient visit [facility] Start: 01-17-2022 End: 01-18-2022 [facility] Start: 06-29-2015 End: 06-29-2015 Telephone encounter Serge Bradshaw (Hist) Work Phone: Radiology Comment on above: Biopsy Request Procedures Date Procedure Procedure Detail Performing Clinician Start: 03-02-2025 PCR test for HIV 1 Dr. Humberto Downs MD Work Phone: Comment on above: HIV-1 RNA not detectedThe reportable ran ge for this assay is 20 to 10,000,000copies HIV-1 RNA/mL. Start: 03-02-2025 Serologic test for syphilis Dr. Humberto Downs MD Work Phone: Start: 03-02-2025 End: 03-02-2025 Polymerase chain reaction analysis Dr. Maurice Downs MD Work Phone: Start: 02-07-2025 Plain x-ray of wrist Dr. Humberto Downs MD Work Phone: Start: 01-14-2025 Mri brain brain stem w/o contrast material Magda Garcia MD Work Phone: Start: 01-13-2025 Measurement of Borrelia burgdorferi antibody Dr. Humberto Downs MD Work Phone: Comment on above: Lyme antibodies not detected. Reflex alen ting is notindicated.No laboratory evidence of infection with B. burgdorferi(Lyme disease). Negative results may occur in patientsrecently infected (less than or equal to 14 days) with B.burgdorferi. If recent infection is suspected, repeattesting on a new sample collected in 7 to 14 days isrecommended.Performed at: [address] [id number] Director: Raimundo Corbin PhD, Phone: [phone] Start: 12-24-2024 Streptococcus pyogenes rRNA assay Dr. Yomaira Downs MD Work Phone: Start: 12-24-[address] Joselito Downs MD Work Phone: Start: 12-24-2024 Serum inorganic phosphate measurement Dr. Humberto Downs MD Work Phone: Start: 12-23-2024 Methadone measurement, urine Dr. Humberto Downs MD Work Phone: Start: 12-23-2024 MRI of brain with contrast Dr. Humberto Downs MD Work Phone: Start: 12-23-[address] Joselito Downs MD Work Phone: Start: 12-23-2024 CT angiography of head and neck Dr. Rene Downs MD Work Phone: Start: 12-23-2024 CT of head without contrast Dr. Humberto Downs MD Work Phone: Start: 12-22-2024 Ct thorax w/o contrast material Addy Kam Berrien PRESSURIZATION MECHANIC.COMMUNITY REINVESTMENT ACT OFFICER Work Phone: Start: 12-08-2024 Adult depression screening assessment Ct (I-Stat) Work Phone: Start: 11-30-2024 MRI of brain with contrast Dr. Humberto Downs MD Work Phone: Start: 11-24-2024 Gluc bld gluc mntr dev cleared fda spec home use Tory Lambert MD Work Phone: Start: 11-24-2024 Esophagogastroduodenoscopy transoral diagnostic Cathi Charly PRESSURIZATION MECHANIC.COMMUNITY REINVESTMENT ACT OFFICER Work Phone: Start: 11-24-2024 Colonoscopy flx dx w/collj spec when pfrmd Cathi Charly PRESSURIZATION MECHANIC.COMMUNITY REINVESTMENT ACT OFFICER Work Phone: Start: 11-24-2024 Colonoscopy Cathi Charly PRESSURIZATION MECHANIC.COMMUNITY REINVESTMENT ACT OFFICER Work Phone: Start: 11-24-2024 Lipid 1996 panel [...] dx w/collj spec when pfrmd Cathi Charly PRESSURIZATION MECHANIC.COMMUNITY REINVESTMENT ACT OFFICER Work Phone: Start: 07-02-2024 Esophagogastroduodenoscopy transoral diagnostic Cathi Parks PRESSURIZATION MECHANIC.COMMUNITY REINVESTMENT ACT OFFICER Work Phone: Start: 03-30-2024 Ct abdomen & pelvis w/o contrast material Cathi Parks PRESSURIZATION MECHANIC.COMMUNITY REINVESTMENT ACT OFFICER Work Phone: Start: 01-04-2024 Urinalysis JOHN CHAMBERS Comment on above: Result Comment: URINALYSIS Performed By: #### 2 [id number] #### [facility],[address] [address] Start: 11-13-2023 Computed tomography of abdomen and [...] 01-28-2023 Radex toe minimum 2 views Tj guerra Work Phone: Start: 11-25-2022 X-ray of chest posteroanterior view Start: 09-03-2022 Plain chest X-ray Start: 09-02-2022 Ultrasound of scrotum with Doppler and color flow imaging Start: 08-01-2022 Mri lower extrem oth/thn jt w/o & w/contr matr Tj Sorto Work Phone: Start: 06-19-2022 Radex toe minimum 2 views Aarti Osorio PRESSURIZATION MECHANIC.COMMUNITY REINVESTMENT ACT OFFICER Work Phone: Start: 05-20-2022 Diagnostic radiography of [...] DTaP/Tdap/Td Vaccines (4 - Td or Tdap) [facility] Start: 08-01-2033 Urine microalbumin profile DTaP,Tdap,Td Vaccine (4 - Td or Tdap) [facility] Start: 11-24-2029 Lipid panel Lipid Screening [facility] Start: 11-24-2029 Screening for malignant neoplasm of colon [facility] Start: 03-08-2026 Annual PCP Team Chronic Disease Visit Annual PCP Team Chronic Disease Visit [facility] Start: 01-02-2026 End: 01-02-2026 Patient encounter procedure Cat Scan Comment on above: CT CHEST 1 YR F/U Start: 12-08-2025 Anxiety Screening Anxiety Screening [facility] Start: 12-08-2025 Depression Screening Depression Screening [facility] Start: 10-28-2025 End: 10-28-2025 Patient encounter procedure 10/28/2025 12:00 PM EDT Office Visit Endocrinology [address] [place], [place] [id number] Tali Caballero MD [address] [place] [address] 1 yr-osteopenia Endocrinology Comment on above: 1 yr-osteopenia Start: 09-08-2025 End: 09-08-2025 Patient encounter procedure 09/08/2025 11:00 AM EST Office Visit Family Medicine [place] [address] [address] Gabby Christina MD [address] [place], [place] [phone] follow up 6 months [facility] Comment on above: follow up 6 months Start: 09-04-2025 Hepb vaccine adult 3 dose schedule for im use HEP B VACCINE, 3-DOSE, AGE 20+ YR (ENGERIX-B, RECOMBIVAX HB) Immunization/Injection Routine Encounter for immunization Expected: 09/04/2025 [facility] Comment on above: Expected: 09/04/2025 Start: 04-08-2025 Hepb vaccine adult 3 dose schedule for im use HEP B VACCINE, 3-DOSE, AGE 20+ YR (ENGERIX-B, RECOMBIVAX HB) Immunization/Injection Routine Encounter for immunization Expected: 04/08/2025 [facility] Work Phone: Comment on above: Expected: 04/08/2025 Start: 04-08-2025 End: 04-08-2025 Nursing evaluation of patient and report 04/08/2025 2:00 PM EDT Nurse Visit [place] [address] [address] , Nurse Famp [place] [address] [place] [address] follow up 6 months [facility] Comment on above: follow up 6 months Start: 04-06-2025 End: 04-06-2025 Follow-up encounter 04/06/2025 11:00 AM EDT [facility] [address] [place], [place] [phone] Louise Saenz APRN.COMMUNITY REINVESTMENT ACT OFFICER [address] [phone] 3 month follow up former Dr. Garcia patient follow up with [facility] Comment on above: [address] Tatum person t follow up with [facility] Start: 04-05-2025 Hepatitis B Vaccine (2 of 3 - 19+ 3-dose series) Hepatitis B Vaccine (2 of 3 - 19+ 3-dose series) [facility] Start: 04-05-2025 HPV Vaccine (2 - Risk male 3-dose series) HPV Vaccine (2 - Risk male 3-dose series) [facility] Start: 03-31-2025 End: 03-31-2025 Patient encounter procedure 03/31/2025 10:40 AM EDT Office Visit Endocrinology [address] [place] [address] Tali Caballero MD [address] [place] [address] Low blood sugars Endocrinology Comment on above: Low blood sugars Start: 03-29-2025 End: 03-29-2025 Patient encounter procedure 03/29/2025 2:00 PM EDT Office Visit Endocrinology [address] [place] [address] Tali Caballero MD [address] [place] [address] Low blood sugars Endocrinology Comment on above: Low blood sugars Start: 03-28-2025 End: 03-28-2025 Patient encounter procedure 03/28/2025 2:40 PM EDT Office Visit [place] [address] [phone] Gabby Christina MD [address] [place], [place] [phone] est care [facility] Comment on above: est care Start: 03-21-2025 Influenza vaccination [facility] Start: 03-08-2025 End: 06-07-2025 Hemoglobin A1c in Blood [facility] Comment on above: Expected: 03/08/2025, Expires: Start: 03-08-2025 End: 06-07-2025 HIV 1 RNA [#/volume] (viral load) in Serum or Plasma by JOSE with probe detection [facility] Comment on above: Expected: 03/08/2025, Expires: Start: 03-08-2025 End: 06-07-2025 T-cell helper (CD4) subset panel - Blood [facility] Comment on above: Expected: 03/08/2025, Expires: Start: 02-07-2025 Plain x-ray of wrist Wrist min 3 Views [facility] Start: 02-07-2025 XR Wrist GE 3 Views [facility] Start: 01-14-2025 End: 01-14-2025 Patient encounter procedure Neurology Comment on above: Dx: Recurrent seizures (HCC) [G40.909] Start: 01-05-2025 End: 01-05-2025 Patient encounter procedure 01/05/2025 1:40 PM EDT Office Visit Family [facility] [address] [address] Gabby Christina MD [address] [place], [place] [phone] Return in about 4 weeks (around 01/05/2025) for bp check . - Referred by Lizzette Nichols [facility] Comment on above: Return in about 4 weeks (around ) for bp check . - Referred by Lizzette Nichols Start: 01-04-2025 End: 01-04-2025 Patient encounter procedure 01/04/2025 1:00 PM EDT Office Visit [facility] [address] [phone] Magda Garcia MD [address] [place], [place] [phone] hospital discharge follow up-stroke [facility] Comment on above: hospital discharge follow up-stroke Start: 12-30-2024 End: 12-30-2024 Patient encounter procedure 12/30/2024 11:00 AM EDT Office Visit Pulmonary Medicine [address] [place] [address] Peng Vance APRN.COMMUNITY REINVESTMENT ACT OFFICER [address] [place], [place] [phone] Nodule of right lung [R91.1] Pulmonary Medicine Comment on above: Nodule of right lung [R91.1] Start: 12-24-2024 Patient discharge [facility] Start: 12-24-2024 Oxygen therapy [facility] Start: 12-24-2024 [facility] Start: 12-23-2024 Following clinical pathway protocol [facility] Start: 12-23-2024 Ambulation without limitation [facility] Start: 12-23-2024 Aspiration precautions [facility] Start: 12-23-2024 Assessment of risk of venous thromboembolism [facility] Start: 12-23-2024 Cardiac monitoring [facility] Start: 12-23-2024 Catheterization of vein [facility] Start: 12-23-2024 Consultation [facility] Start: 12-23-2024 Elevation of head of bed [facility] Start: 12-23-2024 Exercises [facility] Start: 12-23-2024 Incentive spirometry [facility] Start: 12-23-2024 Insertion of catheter into peripheral vein [facility] Start: 12-23-2024 Measuring intake and output [facility] Start: 12-23-2024 Notification of physician [facility] Start: 12-23-2024 Patient referral to dietitian [facility] Start: 12-23-2024 Providing care according to standard [facility] Start: 12-23-2024 Referral to occupational therapist [facility] Start: 12-23-2024 Referral to service [facility] Start: 12-23-2024 Speech therapy assessment [facility] Start: 12-23-2024 Telemedicine consultation with patient [facility] Start: 12-23-2024 Tobacco use cessation education [facility] Start: 12-23-2024 End: 12-23-2024 [facility] Start: 12-23-2024 Vital signs measurements [facility] Start: 12-23-2024 Verification routine [facility] Start: 12-23-2024 Hospital admission, emergency, from emergency room, medical nature [facility] Start: 12-23-2024 Admission procedure [facility] Start: 12-23-2024 Oxygen therapy [facility] Start: 12-23-2024 [facility] Start: 12-23-2024 End: 12-23-2024 Patient encounter procedure 12/23/2024 3:15 PM EDT Appointment Radiology [address] [place] [address] US KIDNEY/BLADDER Radiology Comment on above: US KIDNEY/BLADDER Start: 12-10-2024 End: 12-10-2024 Patient encounter procedure 12/10/2024 11:00 AM EDT Office Visit [facility] [address] [place] [address] Louise Saenz APRN.COMMUNITY REINVESTMENT ACT OFFICER [address] [address] hospital discharge follow up-stroke [facility] Comment on above: hospital discharge follow up-stroke Start: 12-08-2024 End: 12-08-2024 Patient encounter procedure 12/08/2024 1:00 PM EDT Office Visit [facility] [address] [place] [address] Marcel Nichols APRN.COMMUNITY REINVESTMENT ACT OFFICER [address] [place] [address] Wellness examination [Z00.00] [facility] Comment on above: Wellness examination [Z00.00] Start: 12-07-2024 Lipid panel Lipid Screening [facility] Start: 11-24-2024 End: 11-24-2024 Patient encounter procedure 11/24/2024 3:30 PM EDT Appointment [facility] Endoscopy [address] [place] [address] [facility] Start: 11-09-2024 End: 11-09-2024 Patient encounter procedure 11/09/2024 11:00 AM EDT Office Visit General Surgery [address] [place] [address] Cathi Parks APRN.COMMUNITY REINVESTMENT ACT OFFICER [address] [place] [address] 3 month f/u- consult again for colonoscopy and egd General Surgery Comment on above: 3 month f/u- consult again for colonosco py and egd Start: 10-19-2024 End: 10-19-2024 Patient encounter procedure 10/19/2024 9:00 AM EDT Office Visit Endocrinology [address] [place] [address] Tali Caballero MD [address] [facility] [place] [address] 3 MTH F/U Endocrinology Comment on above: 3 MTH F/U Start: 08-31-2024 End: 11-30-2024 Albumin [Mass/volume] in Serum or Plasma ALBUMIN Lab Routine Osteopenia of lumbar spine Expected: 08/31/2024, Expires: 11/30/2024 [facility] Comment on above: Expected: 08/31/2024, Expires: Start: 08-31-2024 End: 11-30-2024 ALK PHOS BONE SPEC ALK PHOS BONE SPEC Lab Routine Osteopenia of lumbar spine Expected: 08/31/2024, Expires: 11/30/2024 [facility] Comment on above: Expected: 08/31/2024, Expires: Start: 08-31-2024 End: 11-30-2024 Calcium [Mass/volume] in Serum or Plasma CALCIUM, TOTAL Lab Routine Osteopenia of lumbar spine Expected: 08/31/2024, Expires: 11/30/2024 [facility] Comment on above: Expected: 08/31/2024, Expires: Start: 08-31-2024 End: 11-30-2024 Calcium.ionized [Moles/volume] in Blood CALCIUM, IONIZED Lab Routine Osteopenia of lumbar spine Expected: 08/31/2024, Expires: 11/30/2024 [facility] Comment on above: Expected: 08/31/2024, Expires: Start: 08-31-2024 End: 11-30-2024 Collagen crosslinked C-telopeptide [Mass/volume] in Serum or Plasma C TELOPEPTIDE, BETA Lab Routine Osteopenia of lumbar spine Expected: 08/31/2024, Expires: 11/30/2024 [facility] Comment on above: Expected: 08/31/2024, Expires: Start: 08-31-2024 End: 11-30-2024 Follitropin [Units/volume] in Serum or Plasma FOLLICLE STIMULATING HORMONE Lab Routine Low testosterone Expected: 08/31/2024, Expires: 11/30/2024 [facility] Comment on above: Expected: 08/31/2024, Expires: Start: 08-31-2024 End: 11-30-2024 Lutropin [Units/volume] in Serum or Plasma LUTEINIZING HORMONE Lab Routine Low testosterone Expected: 08/31/2024, Expires: 11/30/2024 [facility] Comment on above: Expected: 08/31/2024, Expires: Start: 08-31-2024 End: 11-30-2024 Parathyrin.intact [Mass/volume] in Serum or Plasma PTH INTACT Lab Routine Osteopenia of lumbar spine Expected: 08/31/2024, Expires: 11/30/2024 [facility] Comment on above: Expected: 08/31/2024, Expires: Start: 08-31-2024 End: 11-30-2024 Prolactin [Mass/volume] in Serum or Plasma PROLACTIN Lab Routine Low testosterone Expected: 08/31/2024, Expires: 11/30/2024 [facility] Comment on above: Expected: 08/31/2024, Expires: Start: 08-31-2024 End: 11-30-2024 Sex hormone binding globulin [Moles/volume] in Serum or Plasma SEX-HORMONE BINDING Lab Routine Low testosterone Expected: 08/31/2024, Expires: 11/30/2024 [facility] Comment on above: Expected: 08/31/2024, Expires: Start: 08-31-2024 End: 11-30-2024 TESTOSTERONE, FREE AND TOTAL, BY EQUILIBRIUM ULTRAFILTRATION MASS SPECTROMETRY TESTOSTERONE, FREE AND TOTAL, BY EQUILIBRIUM ULTRAFILTRATION MASS SPECTROMETRY Lab Routine Low testosterone Expected: 08/31/2024, Expires: 11/30/2024 [facility] Work Phone: Comment on above: Expected: 08/31/2024, Expires: Start: 08-31-2024 End: 11-30-2024 Thyrotropin [Units/volume] in Serum or Plasma THYROID STIMULATING HORMONE Lab Routine Low testosterone Expected: 08/31/2024, Expires: 11/30/2024 [facility] Comment on above: Expected: 08/31/2024, Expires: Start: 08-31-2024 End: 11-30-2024 Thyroxine (T4) free [Mass/volume] in Serum or Plasma T4 FREE/FREE THYROXINE Lab Routine Low testosterone Expected: 08/31/2024, Expires: 11/30/2024 [facility] Comment on above: Expected: 08/31/2024, Expires: Start: 08-11-2024 End: 08-11-2024 Patient encounter procedure 08/11/2024 11:00 AM EST Office Visit General Surgery [address] [place] [address] Cathi Parks APRN.COMMUNITY REINVESTMENT ACT OFFICER [address] [place] [address] EGD / COLONOSCOPY RESULTS General Surgery Comment on above: EGD / COLONOSCOPY RESULTS Start: 08-10-2024 End: 11-09-2024 25-hydroxyvitamin D3 [Mass/volume] in Serum or Plasma VITAMIN D 25 HYDROXY Lab Routine Osteopenia of lumbar spine Expected: 08/10/2024, Expires: 11/09/2024 [facility] Comment on above: Expected: 08/10/2024, Expires: Start: 08-10-2024 End: 08-10-2024 Patient encounter procedure 08/10/2024 11:40 AM EST Office Visit Endocrinology [address] [place] [address] Tali Caballero MD [address] [place] [address] 2 MTH F/U Endocrinology Comment on above: 2 MTH F/U Start: 07-21-2024 Depression screening Depression Annual Screen [facility] Start: 07-21-2024 Screening for substance abuse Alcohol and Drug Screen [facility] Start: 07-02-2024 End: 07-02-2024 Patient encounter procedure [facility] Comment on above: colon/egd Start: 06-28-2024 Urine microalbumin profile DTaP,Tdap,Td Vaccine (2 - Td or Tdap) [facility] Start: 06-07-2024 End: 06-07-2024 Patient encounter procedure 06/07/2024 3:00 PM EST Office Visit Endocrinology [address] [place] [address] Tali Caballero MD [address] [place] [address] Osteopenia of lumbar spine [M85.88] Endocrinology Comment on above: Osteopenia of lumbar spine [M85.88] Start: 04-01-2024 End: 04-01-2024 Patient encounter procedure 04/01/2024 10:05 AM EDT Appointment Radiology [address] [place] [id number] Bony sclerosis [Q78.2]; Osteopenia of other site [M85.88]; Testicular hypofunction [E29.1] Radiology Comment on above: Bony sclerosis [Q78.2]; Osteopenia of ot her site [M85.88]; Testicular hypofunction [E29.1] Start: 03-30-2024 End: 03-30-2024 Patient encounter procedure Cat Scan Comment on above: Diarrhea, unspecified type [R19.7] Start: 03-23-2024 End: 03-23-2024 Patient encounter procedure 03/23/2024 11:30 AM EDT Office Visit General Surgery [address] [place] [address] Cathi Parks APRN.COMMUNITY REINVESTMENT ACT OFFICER [address] [place] [address] colonoscopy consult General Surgery Comment on above: colonoscopy consult Start: 03-21-2024 Covid-19 Vaccine ( season) Covid-19 Vaccine ( season) [facility] Start: 03-21-2024 Covid-19 Vaccine ( season) Covid-19 Vaccine ( season) [facility] Start: 03-21-2024 [id number] ( season) [id number] ( season) [facility] Start: 03-21-2024 Influenza vaccination [facility] Start: 03-17-2024 End: 03-17-2024 Patient encounter procedure 03/17/2024 3:00 PM EDT Office Visit General Surgery [address] [place], [place] [address] Cathi Parks APRN.COMMUNITY REINVESTMENT ACT OFFICER [address] [place] [address] colonoscopy consult General Surgery Comment on above: colonoscopy consult Start: 03-15-2024 End: 06-14-2024 MONOCLONAL PROTEIN, SERUM (BLOOD) [facility] Comment on above: Expected: 03/15/2024, Expires: Start: 03-15-2024 End: 06-14-2024 Parathyrin.intact [Mass/volume] in Serum or Plasma [facility] Comment on above: Expected: 03/15/2024, Expires: Start: 03-15-2024 End: 06-14-2024 PROTEIN ELECTROPHORESIS SERUM W/INTERP [facility] Comment on above: Expected: 03/15/2024, Expires: Start: 03-15-2024 End: 06-14-2024 Testosterone [Mass/volume] in Serum or Plasma [facility] Comment on above: Expected: 03/15/2024, Expires: 4 Start: 03-15-2024 End: 06-14-2024 VASC ENDO GROWTH FACTOR [facility] Comment on above: Expected: 03/15/2024, Expires: Start: 03-15-2024 End: 03-15-2024 ambulatory 03/15/2024 1:30 PM EDT Visit (SP) Office Hematology/Oncology [address] [place] [address] Meaghan Bloom DO [address] [place] [address] PRECISION LENS TECHNICIAN/OSTEOPENIA,BONY SCLEROSIS/REF.MOJGAN ELIZABETH CNP* Hematology/Oncology Comment on above: PRECISION LENS TECHNICIAN/OSTEOPENIA,BONY SCLEROSIS/REF.MOJGAN MONTOYA CNP* Start: 11-26-2023 [facility] Start: 11-26-2023 [facility] Start: 08-28-2023 Patient discharge [facility] Start: 08-28-2023 Referral to service [facility] Start: 08-28-2023 Wilton suppressor ratio determination [facility] Start: 08-28-2023 Measurement of Borrelia burgdorferi antibody [facility] Start: 08-27-2023 Cardiac monitoring [facility] Start: 08-27-2023 End: 08-27-2023 [facility] Start: 08-27-2023 Consultation [facility] Start: 08-27-2023 Oxygen therapy [facility] Start: 08-27-2023 Telemedicine consultation with patient [facility] Start: 08-27-2023 Ambulation without limitation [facility] Start: 08-27-2023 Assessment of risk of venous thromboembolism [facility] Start: 08-27-2023 Insertion of catheter into peripheral vein [facility] Start: 08-27-2023 Measuring intake and output [facility] Start: 08-27-2023 Providing care according to standard [facility] Start: 08-27-2023 Following clinical pathway protocol [facility] Start: 08-27-2023 Hospital admission, emergency, from emergency room, medical nature [facility] Start: 08-27-2023 Admission procedure [facility] Start: 08-27-2023 Telemedicine consultation with patient [facility] Start: 08-27-2023 Seizure precautions [facility] Start: 08-06-2023 End: 08-06-2023 [facility] Start: 08-01-2023 Simple repair f/e/e/n/l/m 2.5cm/< RPR F/E/E/N/L/M 2.5 CM/< [facility] Start: 08-01-2023 [facility] Start: 07-16-2023 [facility] Start: 07-16-2023 Simple repair f/e/e/n/l/m 2.5cm/< RPR F/E/E/N/L/M 2.5 CM/< [facility] Start: 06-10-2023 [facility] Start: 03-21-2023 Covid-19 Vaccine ( season) Covid-19 Vaccine ( season) [facility] Start: 03-21-2023 Influenza vaccination [facility] Start: 11-27-2022 End: 11-27-2022 Procedure [facility] Start: 11-25-2022 [facility] Start: 10-16-2022 Referral to service [facility] Start: 09-20-2022 Procedure [facility] Start: 07-21-2022 DEPRESSION ASSESSMENT DEPRESSION ASSESSMENT [facility] Start: 03-21-2022 Influenza vaccination INFLUENZA (#1) [facility] Start: 03-21-2022 [facility] Work Phone: Start: 07-21-2021 DEPRESSION ASSESSMENT DEPRESSION ASSESSMENT [facility] Start: 03-21-2021 Influenza vaccination INFLUENZA (Season Ended) [facility] Start: 2015 HPV Vaccine (1 - 3-dose SCDM series) HPV Vaccine (1 - 3-dose SCDM series) [facility] Start: 2007 Hepatitis A immunization Imm-Hepatitis A (1 of 2 - Risk 2-dose series) [facility] Start: 2007 Hepatitis A Vaccine (1 of 2 - Risk 2-dose series) Hepatitis A Vaccine (1 of 2 - Risk 2-dose series) [facility] Start: 2007 Hepatitis A Vaccines (1 of 2 - Risk 2-dose series) Hepatitis A Vaccines (1 of 2 - Risk 2-dose series) [facility] Start: 2007 Hepatitis B vaccination Imm-Hepatitis B (1 of 3 - 19+ 3-dose series) [facility] Start: 2007 Hepatitis B Vaccine (1 of 3 - 19+ 3-dose series) Hepatitis B Vaccine (1 of 3 - 19+ 3-dose series) [facility] Start: 2007 Hepatitis B Vaccines (1 of 3 - 19+ 3-dose series) Hepatitis B Vaccines (1 of 3 - 19+ 3-dose series) [facility] Start: 2007 Imm-Pneumococcal (1 of 2 - PCV) Imm-Pneumococcal (1 of 2 - PCV) [facility] Start: 2007 Imm-Zoster, Recombinant (1 of 2) Imm-Zoster, Recombinant (1 of 2) [facility] Start: 2007 Pneumococcal vaccination Pneumococcal Vaccine (1 of 2 - PCV) [facility] Start: 2007 Pneumococcal Vaccine: Pediatrics and At-Risk Adult Patients (1 of 2 - PCV) Pneumococcal Vaccine: Pediatrics and At-Risk Adult Patients (1 of 2 - PCV) [facility] Start: 2007 Shingrix Vaccine (1 of 2) Shingrix Vaccine (1 of 2) [facility] Start: 2007 Tetanus vaccination Imm-DTaP/Tdap/Td (1 - Tdap) [facility] Start: 2007 Urine microalbumin profile [facility] Start: 2007 Zoster Vaccines (1 of 2) Zoster Vaccines (1 of 2) [facility] Start: 2006 Anxiety Screening Anxiety Screening [facility] Start: 2006 Depression Screening Depression Screening [facility] Start: 2006 HEPATITIS C SCREENING HEPATITIS C SCREENING [facility] Start: 2006 Hepatitis C screening Hepatitis C Screening [facility] Start: 2006 HIV SCREENING HIV SCREENING [facility] Start: 2006 Hypertension screening Hypertension Screening (#1) [facility] Start: 2006 Nfrnuve-[id number] vaccination Imm-MMR (1 of 2 - Risk 2-dose series) [facility] Start: 2006 MMR Vaccine (1 of 2 - Risk 2-dose series) MMR Vaccine (1 of 2 - Risk 2-dose series) [facility] Start: 2006 MMR Vaccines (1 of 2 - Risk 2-dose series) MMR Vaccines (1 of 2 - Risk 2-dose series) [facility] Start: 2001 Varicella vaccination Varicella Vaccines (1 of 2 - 13+ 2-dose series) [facility] Start: 2000 Adult depression screening assessment DEPRESSION SCREENING [facility] Start: 1994 PNEUMOCOCCAL (1 - PCV) PNEUMOCOCCAL (1 - PCV) [facility] Start: 1994 Pneumococcal vaccination [facility] Start: 1993 COVID-19 Vaccine (#1) COVID-19 Vaccine (#1) [facility] Start: 1990 Meningococcal conjugate vaccination Imm-Meningococcal (1 - Risk 2-dose series) [facility] Start: 1990 Meningococcal Conjugate Vaccine (1 - Risk 2-dose series) Meningococcal Conjugate Vaccine (1 - Risk 2-dose series) [facility] Start: 1990 Meningococcal Vaccine (1 - Risk 2-dose series) Meningococcal Vaccine (1 - Risk 2-dose series) [facility] Start: 02-21-1989 COVID-19 VACCINE (#1) COVID-19 VACCINE (#1) [facility] Start: 1988 Anxiety Screening Anxiety Screening [facility] Start: 1988 Diabetes mellitus screening Diabetes Screening [facility] Start: 1988 HEPATITIS B (1 of 3 - 3-dose series) HEPATITIS B (1 of 3 - 3-dose series) [facility] Start: 1988 Hepatitis B Screening Hepatitis B Screening [facility] Start: 1988 Hepatitis B Vaccine (1 of 3 - 3-dose series) Hepatitis B Vaccine (1 of 3 - 3-dose series) [facility] Start: 1988 Hepatitis C screening Hepatitis C Screening [facility] Start: 1988 Lipid panel [facility] Start: 1988 Screening for malignant neoplasm of colon [facility] Start: 1988 Tobacco Screening Tobacco Screening [facility] Start: 1988 Yearly Adult Physical Yearly Adult Physical [facility] Absolute CD8 count procedure [facility] Basophil count [facility] Basophil percent differential count [facility] End: 04-14-2025 BD DXA TRABECULAR BONE SCORE (TBS) BD DXA TRABECULAR BONE SCORE (TBS) Radiology Routine Bony sclerosis Osteopenia of other site Testicular hypofunction 1 Occurrences starting 03/15/2024 until 04/14/2025 [facility] Comment on above: 1 Occurrences starting 03/15/2024 until 04/14/2025 BD DXA TRABECULAR ABI NE SCORE (TBS) BD DXA TRABECULAR BONE SCORE (TBS) Radiology Routine Bony sclerosis Osteopenia of other site Testicular hypofunction 04/01/2024 10:25 AM EDT [facility] CALCIUM, 24 HR URINE CALCIUM, 24 HR URINE Lab Routine Osteopenia of lumbar spine Ordered: 08/10/2024 [facility] Comment on above: Ordered: 08/10/2024 CD3+CD4+ (T4 helper) cells [#/volume] in Blood [facility] CD3+CD4+ (T4 helper) cells/CD3+CD8+ (T8 suppressor cells) cells [# Ratio] in Blood [facility] CD8 percent count [facility] CREATINE 24 HR UR CREATINE 24 HR UR Lab Routine Osteopenia of lumbar spine Ordered: 08/10/2024 [facility] Comment on above: Ordered: 08/10/2024 End: 04-22-2025 CT Abdomen and Pelvis WO contrast CT ABD/PEL WO IVCON Radiology STAT Diarrhea, unspecified type 1 Occurrences starting 03/23/2024 until 04/22/2025 [facility] Comment on above: 1 Occurrences starting 03/23/2024 until 04/22/2025 End: 01-29-2026 CT Chest WO contrast CT CHEST WO IVCON Radiology Routine Lung nodules 1 Occurrences starting 12/30/2024 until 01/29/2026 [facility] Work Phone: Comment on above: 1 Occurrences starting 12/30/2024 until 01/29/2026 End: 09-08-2024 CT for calcium scoring WO contrast and CTA W contrast IV Heart and coronary arteries [facility] Service Area Work Phone: Comment on above: Once for 1 Occurrences starting 09/08/19 until 09/08/2024 End: 04-14-2025 DXA Skeletal system.axial Views for bone density DXA-AXIAL SKELETON Radiology Routine Bony sclerosis Osteopenia of other site Testicular hypofunction 1 Occurrences starting 03/15/2024 until 04/14/2025 [facility] Comment on above: 1 Occurrences starting 03/15/2024 until 04/14/2025 DXA Skeletal system.axial Views for bone density DXA-AXIAL SKELETON Radiology Routine Bony sclerosis Osteopenia of other site Testicular hypofunction 04/01/2024 10:25 AM EDT [facility] Work Phone: End: 03-23-2025 EGD DIAGNOSTIC EGD DIAGNOSTIC Endoscopy Routine Dysphagia, unspecified type Heartburn 1 Occurrences starting 03/23/2024 until 03/23/2025 [facility] Comment on above: 1 Occurrences starting 03/23/2024 until 03/23/2025 End: 11-09-2025 EGD DIAGNOSTIC EGD DIAGNOSTIC Endoscopy Routine Heart burn Epigastric abdominal pain 1 Occurrences starting 11/09/2024 until 11/09/2025 [facility] Work Phone: Comment on above: 1 Occurrences starting 11/09/2024 until 11/09/2025 Eosinophil percent differential count [facility] Eosinophils [#/volum e] in Blood [facility] End: 01-04-2026 EPIL EEG ROUTINE EPIL EEG ROUTINE NEUROLOGY Routine Recurrent seizures (HCC) 1 Occurrences starting 01/04/2025 until 01/04/2026 [facility] Comment on above: 1 Occurrences starting 01/04/2025 until 01/04/2026 Erythrocyte mean corpuscular volume determination [facility] Granulocyte percent differential count [facility] Hematocrit [Volume Fraction] of Blood [facility] Hemoglobin [Mass/volume] in Blood [facility] Hemoglobin distribution, width determination [facility] Hepatitis A virus Ig M Ab [Presence] in Serum [facility] Hepatitis B core antibody measurement, IgM type [facility] Hepatitis B surface antigen measurement [facility] Hepatitis C antibody measurement [facility] HIV 1 RNA [#/volume] (viral load) in Unspecified specimen by JOSE with probe detection [facility] HIV 1 RNA [Log #/volume] (viral load) in Unspecified specimen by JOSE with probe detection [facility] Immature granulocyte s [#/volume] in Blood [facility] Leukocytes [#/volume ] in Blood [facility] Lymphocyte count [facility] Lymphocyte percent differential count [facility] Mean corpuscular hemoglobin concentration determination [facility] Mean corpuscular hemoglobin determination [facility] Measurement of Borre aguila burgdorferi antibody [facility] Measurement of gluco se 3 hours after glucose challenge for glucose tolerance test [facility] Monocyte count [facility] Monocyte percent differential count [facility] MR Brain WO and W contrast IV [facility] End: 02-03-2026 MR Brain WO contrast MRI BRAIN WO IVCON Radiology Routine Recurrent seizures (HCC) 1 Occurrences starting 01/04/2025 until 02/03/2026 [facility] Work Phone: Comment on above: 1 Occurrences starting 01/04/2025 until 02/03/2026 End: 2023 Mri lower extrem oth/thn jt w/o & w/contr matr MRI FOOT/TOES WO/W IVCON RT Radiology Routine Mass of right foot 1 Occurrences starting 07/25/2022 until 2023 [facility] Work Phone: Comment on above: 1 Occurrences starting 07/25/2022 until 2023 Neutrophil count [facility] Neutrophil percent differential count [facility] Patient Education [facility] Work Phone: Patient referral [facility] Work Phone: Percentage CD4 (T4 cells) count [facility] Platelet count [facility] End: 07-25-2023 PVR ANK PRESS NOMAN VAS LAB PVR ANK PRESS [facility] Vascular Lab Routine Soft tissue mass Diminished pulses in lower extremity Mass of right foot 1 Occurrences starting 07/25/2022 until 07/25/2023 [facility] Work Phone: Comment on above: 1 Occurrences starting 07/25/2022 until 07/25/2023 Red blood cell count [facility] Reticulocyte percent count [facility] End: 03-23-2025 Screening colonoscopy COLONOSCOPY SCREENING Endoscopy Routine History of colonic polyps Encounter for screening for malignant neoplasm of colon 1 Occurrences starting 03/23/2024 until 03/23/2025 [facility] Work Phone: Comment on above: 1 Occurrences starting 03/23/2024 until 03/23/2025 End: 11-09-2025 Screening colonoscopy COLONOSCOPY SCREENING Endoscopy Routine History of colonic polyps 1 Occurrences starting 11/09/2024 until 11/09/2025 [facility] Comment on above: 1 Occurrences starting 11/09/2024 until 11/09/2025 Sodium [Moles/time] in 24 hour Urine SODIUM 24 HR URINE Lab Routine Osteopenia of lumbar spine Ordered: 08/10/2024 [facility] Comment on above: Ordered: 08/10/2024 SURGICAL PATHOLOGY SURGICAL PATH OLOGY Lab Routine Dysphagia, unspecified type Gastroesophageal reflux disease, unspecified whether esophagitis present History of colonic polyps Encounter for screening for malignant neoplasm of colon Heartburn Release Upon Ordering for 1 Occurrences starting 07/02/2024 [facility] Work Phone: Comment on above: Release Upon Ordering for 1 Occurrences starting 07/02/2024 Tissue Pathology bio psy report [facility] Work Phone: Comment on above: Release Upon Ordering for 1 Occurrences starting 11/24/2024, 1 completed Troponin T.cardiac [Mass/volume] in Serum or Plasma by High sensitivity method [facility] - bilatera l and Urinary bladder US KIDNEY/BLADDER Radiology Routine Urinary retention 12/23/2024 4:11 PM EDT [facility] Work Phone: End: 04-14-2025 XR Bones Complete Survey Views XR BONE SURVEY ROUTINE Radiology Routine Bony sclerosis 1 Occurrences starting 03/15/2024 until 04/14/2025 [facility] Work Phone: Comment on above: 1 Occurrences starting 03/15/2024 until 04/14/2025 XR Bones Complete Survey Views XR BONE SURVEY ROUTINE Radiology Routine Bony sclerosis 03/15/2024 3:22 PM EDT [facility] Immunizations Immunization Date Immunization Notes Care Provider [facility] 03-08-2025 hepatitis B vaccine, adult dosage Gabby Christina MD Work Phone: [facility] 03-08-2025 Human Papillomavirus 9-valent vaccine Gabby Christina MD Work Phone: [facility] 03-08-2025 pneumococcal conjuga te (PCV20) vaccine, 20 valent (PREVNAR 20) Gabby Christina MD Work Phone: [facility] 03-08-2025 pneumococcal Conjuga te, unspecified formulation Gabby Christina MD Work Phone: [facility] 08-01-2023 tetanus toxoid, redu bryanna diphtheria toxoid, and acellular pertussis vaccine, adsorbed [facility] 06-28-2014 tetanus toxoid, redu bryanna diphtheria toxoid, and acellular pertussis vaccine, adsorbed [facility] 01-11-2008 tetanus toxoid, redu bryanna diphtheria toxoid, and acellular pertussis vaccine, adsorbed Marcel Nichols APRN.CNP Work Phone: [facility] Payers Date Payer Category Payer Unknown [id number] 2023 Self-pay [id number] 2021 Medicaid [id number] 2021 Medicaid (Managed Care) [facility] PLAN [id number] 2021 Unknown [id number] 2014 Private Health Insurance [employer] PPO [id number] 2014-Present PPO [id number] 2011 Private Health Insurance [id number] 1988 Unknown [id number] 2.16.840.1.851888.3.579.2. 1249 1988 Unknown [id number] 2.16.840.1.657950.3.579.2. 651 1988 Unknown [id number] 2..840.1.508937.3.579.2. 627 1988 Unknown [id number] 2.16.840.1.835886.3.579.2. 1243 Unknown [id number] 2.16.840.1.850313.3.579.2. 531 Unknown [id number] 2.840.1.730556.3.579.2. 462 Unknown [id number] .840.1.092074.3.579.2. 462 Unknown [id number] .840.1.760388.3.579.2. 462 Unknown [id number] 2.840.1.852258.3.579.2. 462 Unknown [id number] 2.840.1.800042.3.579.2. 462 Unknown [id number] 2.840.1.845761.3.579.2. 462 Unknown [id number] .840.1.436345.3.579.2. 462 Unknown [id number] 2.840.1.672134.3.579.2. 462 Unknown [id number] 2.840.1.908345.3.579.2. 462 Unknown [id number] .840.1.099750.3.579.2. 462 Unknown [id number] .840.1.304378.3.579.2. 462 Unknown [id number] .840.1.525349.3.579.2. 462 Unknown [id number] 2.840.1.851788.3.579.2. 462 Unknown [id number] 2.840.1.002986.3.579.2. 462 Unknown [id number] 2.840.1.615694.3.579.2. 462 Unknown [id number] 2.16.840.1.677249.3.579.2. 462 Unknown [id number] 2.16.840.1.268793.3.579.2. 462 Unknown [id number] 2.16.840.1.930094.3.579.2. 462 Unknown [id number] 2.16.840.1.600281.3.579.2. 462 Unknown [id number] 2.16.840.1.590385.3.579.2. 462 Unknown [id number] 2.16.840.1.255686.3.579.2. 462 Unknown [id number] 2.16.840.1.126125.3.579.2. 462 Unknown [id number] 2.16840.1.230504.3.579.2. 462 Unknown [id number] 2.16840.1.074875.3.579.2. 462 Unknown [id number] 2.16840.1.998050.3.579.2. 462 Unknown [id number] 2.16.840.1.125034.3.579.2. 462 Unknown [id number] 2.16840.1.320868.3.579.2. 462 Unknown [id number] 2.16840.1.843464.3.579.2. 462 Unknown [id number] 2.16840.1.134557.3.579.2. 462 Social History Date Type Detail Facility Start: 03-15-2004 End: 06-07-2024 Tobacco smoking status NHIS Current every day smoker [facility] Start: 03-15-2004 History of tobacco use Cigarette Smo ker [facility] Start: 06-19-2015 End: 02-27-2023 Cigarettes smoked current (pack per day) - Reported [facility] Start: 06-19-2015 End: 06-07-2024 Tobacco use and exposure [facility] Start: 06-19-2015 End: 06-19-2022 Alcohol intake Not Asked [facility] Start: 1988 Sex Assigned At Not on file [facility] Start: 01-17-2022 End: 11-26-2023 Tobacco smoking status NHIS Unknown if ever smoked [facility] Start: 07-27-2021 None [facility] Start: 1988 Sex Assigned At Male [facility] Start: 06-09-2022 End: 09-08-2024 Exposure to SARS-CoV-2 (event) Not sure [facility] Work Phone: Start: 07-25-2022 End: 03-08-2025 Alcohol intake Current drinker of alcohol (finding) [facility] Start: 07-25-2022 Alcohol Comment rarely [facility] Start: 01-28-2023 End: 03-23-2024 Alcohol intake Ex-drinker (finding) [facility] Start: 01-28-2023 End: 02-27-2023 Tobacco use panel [facility] Start: 06-21-2012 National Score (1-10 0), lower number is lower risk 70 [facility] Start: 01-28-2023 Gender identity Identifies as male gender (finding) [facility] Start: 04-10-2022 Sexual orientation Homosexual (findi ng) [facility] Start: 11-13-2023 Tobacco smoking stat us NHIS Smoker (finding) [facility] Tobacco smoking status No Smokin g Status Entered [facility] History of tobacco use Passive smoker [facility] Start: 10-30-2024 Sex Male (finding) [facility] Has the [employer], [employer], or [employer] threatened to shut off services in your home in past 12Mo No [facility] (I/We) worried wheth er (my/our) food would run out before (I/we) got money to buy more. Never true [facility] Are you now , , , , never or living with a partner? [facility] How often to you hav e a drink containing alcohol? Never [facility] How hard is it for y ou to pay for the very basics like food, housing, medical care, and heating Somewhat hard [facility] Do you feel stress - tense, restless, nervous, or anxious, or unable to sleep at night because your mind is troubled all the time - these days [OSQ] Only a little [facility] (I/We) worried jarrod er (my/our) food would run out before (I/we) got money to buy more. Often true [facility] In the past 12 month s, was there a time when you were not able to pay the mortgage or rent on time? Yes [facility] Start: 12-24-2024 Tobacco Use Tobacco Use [facility] Goals Date Patient Goal Desired Activity /State Functional Status Date Assessment Result Facility 12-24-2024 Functional status Ambulates [facility] Work Phone: 12-03-2024 Total score [AUDIT-C] 0 12/04/19 25 4:18 PM EDT User, Lisaabbyt [facility] 12-03-2024 How often to you hav e a drink containing alcohol? Never 12/03/2024 4:18 PM EDT User, Mychart Never [facility] 12-03-2024 Functional status Patient does n ot drink 12/03/2024 4:18 PM EDT User, [facility] Patient does not drink [facility] 12-03-2024 How often do you hav e 6 or more drinks on 1 occasion? Never 12/03/2024 4:18 PM EDT User, Lisahart Never [facility] 11-27-2024 Are you deaf, or do you have serious difficulty hearing No 11/27/2024 1:53 PM EDT Lauren Acevedo, ASHISH No [facility] 11-27-2024 Are you blind, or do you have serious difficulty seeing, even when wearing glasses No 11/27/2024 1:53 PM LUIGIT Lauren Acevedo, ASHISH No [facility] 11-27-2024 Do you have serious difficulty walking or climbing stairs No 11/27/2024 1:53 PM LUIGIT Lauren Acevedo, ASHISH No [facility] 11-27-2024 Do you have difficul ty dressing or bathing No 11/27/2024 1:53 PM Lauren Wooten, ASHISH No [facility] 11-27-2024 Because of a physica l, mental, or emotional condition, do you have difficulty doing errands alone such as visiting a physician's office or shopping No 11/27/2024 1:53 PM Lauren Wooten RN No [facility] 08-28-2023 Functional status Activity Abili ty Standby Assist [facility] Work Phone: Mental Status Date Assessment Result Facility 12-24-2024 Cognitive function Voice/Name [facility] Work Phone: 12-23-2024 Cognitive function Voice/Name [facility] Work Phone: 11-27-2024 Because of a physica l, mental, or emotional condition, do you have serious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 the findings on pulmonary function testing and radiographs. Last CT/CTA Chest/Lungs CT CHEST WO IVCON Exam End: 12/22/2024 11:53 AM (Final result) Narrative: * * *Final Report* * * DATE OF EXAM: Dec 22 2024 11:53AM [facility] 0541 - CT CHEST WO IVCON [...] of the stomach likely relates to underdistention. Impression: IMPRESSION: No acute pulmonary process is identified. [...] obtained in 12 months --END OF FINDING-- Bus Girl: PSCB Transcribe Date/Time: Dec 22 2024 12:22P Dictated by : TOBY ORDOÑEZ MD This examination was interpreted and the report reviewed and electronically signed by: TOBY ORDOÑEZ MD on Dec 22 2024 6:30PM EST Impression / Recommendations To optimize physician communication via the electronic health record, the Impression & Recommendations section has been placed at the beginning of this note. ------ Peng Vance APRN.CNP Pulmonary & Critical Care Medicine December 30, 2024 11:20 AM Follow Up Diagnosis: Lung Nodule Recommendation: CT Scan Follow up Date: 01/02/2026 Follow-Up Scheduled: Yes Pulmonary Follow-Up Type: Lung Nodule Surveillance Lung Nodule Program Location: [facility] documented in this encounter [facility] 12-24-2024 Discharge summary Note Date/Time December 24, 2024 1:26p [facility] Medical Records Department [address] [place] [id number] Discharge Summary 12/24/24 1320 MR#: [id number] Acct: [id number] Name: FAUSTINO UNGER Rep #:[id number] : 1990 34 From: Gutierrez Polanco MD PCP: Dr. Humberto Downs MD Status:A DM KEITH Location: [id number] Providers Date of Admission: 12/23/24 Date of Discharge: 12/24/24 Primary Care Physician: Dr. Humberto Downs MD Consultations 12/23/24 21:37 Consult: Tele-Neurology Routine Consulting Provider: [facility] Reason for Consult: Acute Ischemic Stroke/TIA EMERGENT Consult: No MD Notified: Yes Date Notified: 12/23/24 Time Notified: 22:03 Method of Notification: Answering Service Nursing Unit Staff Notify [facility] of Tele-Neurology Consult: Yes Reason For Visit: L PARASTHESIAS/L SIDED WEAKNESS/L FACIAL DROOP Diagnosis Discharge Diagnosis (1) Left-sided weakness: Status: Acute Code(s): R53.1 - Weakness (2) Facial droop: Status: Acute Code(s): R29.810 - Facial weakness (3) Paresthesias: Status: Acute Code(s): R20.2 - Paresthesia of skin Plan Patient is a 34-year-old gentleman who presented with left-sided weakness paresthesias as well as left facial droop 1. Complex migraine ? Patient presented with Left-sided weakness/paresthesias/left facial droop. Patient admitted to a monitored bed underwent subsequent evaluation with MRI which was negative for CVA. Case was discussed with Dr. Shine with [facility] teleneurology who felt patient had complex migraine and no further workup was needed 2. HIV ? Patient is on Biktarvy and is followed by Dr. Downs [facility] 3. Dyslipidemia ?Patient is on statin therapy, continued at home dose 4. Polycystic kidney disease ? Outpatient follow-up with with primary care physician 6. Depression with anxiety ? Patient is on fluoxetine as well as buspirone 7. Allergic rhinitis ? Patient is on fluticasone 8. Sore throat ? Throat examination did not reveal any enlarged adenoids no erythema however ordered rapid strep throat ? Strep throat PCR came back negative 9. GERD ? On PPI 10. Tobacco dependence ? Counseled on cessation, offered nicotine patch for tobacco cravings 11.DVT prophylaxis - subcu Lovenox daily CODE STATUS - Full code Medications at Discharge Home Medications bictegravir 50 mg-emtricitabine 200 mg-tenofovir alafenam 25 mg tablet (Biktarvy) 1 tab PO DAILY 11/25/22 albuterol sulfate 90 mcg/actuation aerosol inhaler 1 inh inhalation DAILY PRN shortness of breath or wheezing 08/27/23 ondansetron 4 mg disintegrating tablet 4 mg PO Q8H PRN PRN Nausea #10 tabs 12/06/23 lactobacillus combination no.9 4 billion cell capsule (Adult 50 Plus Probiotic) 4,000 mmu cells PO DAILY 03/10/24 propranolol 20 mg tablet 20 mg PO QDAY 03/10/24 cholecalciferol (vitamin D3) 25 mcg (1,000 unit) capsule (Vitamin D3) 50 mcg PO QDAY 03/31/24 fluticasone propionate 50 mcg/actuation nasal spray,suspension (Flonase Allergy Relief) 1 spray intranasal QDAY 03/31/24 uwowhdxr-txoctysx-cvddn acid 400 mcg-vit K 20 mcg-lycop 300 mcg tablet (One-A-Day Men's Multivitamin) 1 tab PO DAILY 03/31/24 fluoxetine 40 mg capsule 40 mg PO QDAY 04/14/24 buspirone 5 mg tablet 10 mg PO BID 08/11/24 aspirin 81 mg chewable tablet 1 tab PO DAILY 12/23/24 atorvastatin 40 mg tablet 40 mg PO QHS 12/23/24 melatonin 10 mg capsule 10 mg PO DAILY 12/23/24 pantoprazole 40 mg tablet,delayed release 40 mg PO DAILY 12/23/24 acetaminophen 325 mg tablet 650 mg (2 x 325 mg) PO Q4H PRN PRN Pain 1-10 Or Fever>99.6 #0 tabs 12/24/24 Hospital Course Summary of Care Provided Minutes Spent on Discharge: 35 Physical Exam Narrative GENERAL: cooperative HEENT: Atraumatic; normocephalic EYES; Anicteric, Normal Conjunctiva NECK; supple, normal thyroid, RESPIRATORY: Diminished to auscultation CARDIOVASCULAR: Regular S1 S2, GI: soft, normoactive bowel sounds, : No Renal angle tenderness; EXTREMITIES: No edema, no clubbing, MUSCULOSKELETAL: no muscle wasting NEURO: Awake; no lateralizing signs. SKIN: No Rash PSYCH; Flat affect Weight / BMI Weight Weight: 75.438 kg Body Mass Index (BMI) 25.2 ABG / Lab / Microbiology Data 12/24/24 05:25 12/24/24 05:25 Laboratory: Laboratory Results - last 24 hr 12/23/24 16:45: WBC 11.5 H, RBC 4.57 L, Hgb 14.0, Hct 42.0, MCV 91.9, MCH 30.6, MCHC 33.3, RDW Std Deviation 49.7 H, RDW Coeff of Carlyn 14.6, Plt Count 323, MPV 8.7, Immature Gran % (Auto) 0.500, Neut % (Auto) 52.7, Lymph % (Auto) 30.2, Richardson% (Auto) 13.2 H, Eos % (Auto) 2.9, Baso % (Auto) 0.5, Absolute Neuts (auto) 6.1,Absolute Lymphs (auto) 3.46, Nucleated RBC % 0, Differential Comment SCANNED, Platelet Estimate ADEQUATE, PT 12.8, INR 0.9, APTT 26.4, Sodium 135, Potassium 3.7, Chloride 99, Carbon Dioxide 23.5, Anion Gap 12, BUN 11, Creatinine 0.98, Estim Creat Clear Calc 100.82, Est GFR (MDRD) Non-Af 103, BUN/Creatinine Ratio 10.8, Glucose 88, Hemoglobin A1c 5.3, Calcium 8.6, Troponin T High Sens < 6 12/23/24 18:45: Troponin T Hi Sens 2 Hr < 6 12/23/24 18:50: Urine Opiates Screen NEGATIVE, U Buprenorphine Qual NEGATIVE, UrOxycodone Screen NEGATIVE, Urine Methadone Screen NEGATIVE, Urine Fentanyl Screen NEGATIVE, Ur Barbiturates Screen NEGATIVE, Ur Phencyclidine Scrn NEGATIVE, Ur Amphetamines Screen PRESUMPTIVE POSITIVE, U Benzodiazepines Scrn NEGATIVE, Urine Cocaine Screen NEGATIVE, U Cannabinoids Screen NEGATIVE 12/23/24 22:02: Troponin T Hi Sens 4Hr < 6 12/24/24 05:25: WBC 7.0, RBC 4.52 L, Hgb 13.9, Hct 42.2, MCV 93.4, MCH 30.8, MCHC 32.9, RDW Std Deviation 50.7 H, RDW Coeff of Carlyn 14.6, Plt Count 277, MPV 8.6, Immature Gran % (Auto) 0.400, Neut % (Auto) 48.6, Lymph % (Auto) 34.2, Richardson% (Auto) 13.1 H, Eos % (Auto) 3.0, Baso % (Auto) 0.7, Absolute Neuts (auto) 3.4,Absolute Lymphs (auto) 2.38, Nucleated RBC % 0, Sodium 141, Potassium 4.3, Chloride 105, Carbon Dioxide 26.4, Anion Gap 9, BUN 10, Creatinine 0.95, Estim Creat Clear Calc 104.00, Est GFR (MDRD) Non-Af 107, BUN/Creatinine Ratio 10.2, Glucose 89, Calcium 9.2, Phosphorus 5.1 H, Magnesium 2.2, Total Bilirubin 0.24, AST 20, ALT 21, Alkaline Phosphatase 105, Total Protein 6.5, Albumin 4.0, Globulin 2.5, Albumin/Globulin Ratio 1.6, Triglycerides 56, Cholesterol 96, LDL Cholesterol, Calc 42, VLDL Cholesterol 11, HDL Cholesterol 43, Cholesterol/HDL Ratio 2.25 Microbiology: Microbiology 12/24/24 11:43 Mucosa - Throat Streptococcus pyogenes (PCR) - Final Radiography Diagnostic Testing: Radiology Impression Brain CT 12/23/24 16:40 IMPRESSION: No acute, large territorial infarction. Reading Location: [facility] Head/Neck CTA 12/23/24 16:43 IMPRESSION: No acute large vessel occlusion or high-grade stenosis. Reading Location: [facility] Brain MRI 12/23/24 18:40 IMPRESSION: No acute intracranial hemorrhage or infarction. No abnormal enhancing lesions. Reading Location: [facility] D/C Instructions Discharge Diet: No restrictions Discharge Activity: Return to Normal Activity Call your doctor if you observe: Fever of 101 or Higher, Shortness of breath, Fainting spells and Chest pain DC O2, CPAP, BIPAP Needs Home O2 Discharge instructions: No Meaningful Use Info Meaningful Use Meaningful Use Diagnoses (Choose all that apply): None applicable Ischemic Stroke Statin Dosing Therapy Reference: STATIN DOSE THERAPY REFERENCE: * Patients > 75 years receive moderate or high dose statin therapy. * Patients 75 years or YOUNGER should receive HIGH intensity statin dose unless contraindicated. You will be required to document reason for non-treatment if statin daily dose does not meet guidelines. HIGH DOSE STATIN THERAPY DAILY Atorvastatin > than or = to 40 mg Rosuvastatin > than or = to 20 mg Amlodipine + Atorvastatin > than or = to 2.5/40 mg Ezetimibe + Simvastatin 10/80 mg Simvastatin 80mg Discharge Plan Admission Admit Date/Time: 12/23/24 18:34 Attending Provider: Gutierrez Polanco Primary Care Provider: Humberto Downs Consulting Providers: Martir Dubose; Addie Ayala; Adilene Nava; Judy Tena; Azeb Ghotra; Tye Bee; Sarah Corrales; Shekhar Dunne; Magalie García; Samuel Luna; Minda Villagran; Tj Calvin; Deborah Miles; Karl Hoang; Sarai Montgomery; Juan Hayward; Justine Sandoval; Valerio Coppola; Monica Lopez; Brennan Simon;Daija Lopez Discharge Orders/Prescriptions Prescriptions: New acetaminophen 325 mg Tablet 650 mg PO Q4H PRN PRN (Reason: Pain 1-10 Or Fever>99.6) Qty: 0 0RF Continued propranolol 20 mg tablet 20 mg PO QDAY Adult 50 Plus Probiotic 4 billion cell capsule 4,000 mmu cells PO DAILY buspirone 5 mg tablet 10 mg PO BID fluticasone propionate [Flonase Allergy Relief] 50 mcg/actuation spray,suspension 1 spray intranasal QDAY Rx Instructions: administer into each nostril One-A-Day Men's Multivitamin 400-20-300 mcg tablet 1 tab PO DAILY fluoxetine 40 mg capsule 40 mg PO QDAY Biktarvy 50-200-25 mg Tablet 1 tab PO DAILY cholecalciferol (vitamin D3) [Vitamin D3] 25 mcg (1,000 unit) capsule 50 mcg PO QDAY albuterol sulfate 90 mcg/actuation HFA aerosol inhaler 1 inh INHALATION DAILY PRN (Reason: shortness of breath or wheezing) aspirin 81 mg tablet,chewable 1 tab PO DAILY atorvastatin 40 mg tablet 40 mg PO QHS pantoprazole 40 mg tablet,delayed release (DR/EC) 40 mg PO DAILY melatonin 10 mg capsule 10 mg PO DAILY ondansetron 4 mg tablet,disintegrating 4 mg PO Q8H PRN PRN (Reason: Nausea) Qty: 10 0RF Referrals / Follow Up: Humberto Downs MD [Primary Care Provider] - Disposition Disposition (needs filled in before D/C Order can be placed): Home, Self Care Charges/Coding Visit Charges Inpatient E&M: 96104 Disch Hosp >30min 12/24/24 1326 <Electronically signed by Gutierrez Polanco MD> Cosigner Signature (if applicable): CC: Dr. Gutierrez Polanco MD; Dr. Humberto Downs MD~ Signed [facility] Work Phone: [phone]) 369-160406-06-2025 Progress note Author Gutierrez Polanco [facility] Note Date/Time December 24, 2024 1:19p [facility] Medical Records Department [address] [place] [address] Progress Note - Hospitalist 12/24/24 0741 MR#: [id number] Acct: [id number] Name: FAUSTINO UNGER Rep #:[id number] : 1990 34 From: Gutierrez Polanco MD PCP: Dr. Humberto Downs MD Status:A DM KEITH Location: [place] [address] Reason for Visit Reason for Visit: Diagnoses Paresthesia of skin (12/23/24) Facial weakness (12/23/24) Weakness (12/23/24) Subjective Subjective Patient is a 34-year-old gentleman with history of TIAs who presented with left- sided weakness paresthesias as well as left facial droop Objective Data Objective Data Vital Signs: Vital Signs Temp Pulse Resp BP Pulse Ox O2 Del Method 97.6 F L 74 15 106/74 100 Room Air 12/24/24 05:50 12/24/24 05:50 12/24/24 05:50 12/24/24 05:50 12/24/24 05:50 12/24/24 05:50 Oxygen Delivery Method Room Air Weight: 75.438 kg Body Mass Index (BMI) 25.2 Intake & Output: Intake and Output for Last 24 Hours 12/22/24 12/23/24 12/24/24 23:59 23:59 23:59 Intake Total 300 / 300 0 / 0 Balance 300 / 300 0 / 0 Lab / Micro Data 12/24/24 05:25 12/24/24 05:25 Labs: Laboratory Results - last 24 hr 12/23/24 16:45: WBC 11.5 H, RBC 4.57 L, Hgb 14.0, Hct 42.0, MCV 91.9, MCH 30.6, MCHC 33.3, RDW Std Deviation 49.7 H, RDW Coeff of Carlyn 14.6, Plt Count 323, MPV 8.7, Immature Gran % (Auto) 0.500, Neut % (Auto) 52.7, Lymph % (Auto) 30.2, Richardson% (Auto) 13.2 H, Eos % (Auto) 2.9, Baso % (Auto) 0.5, Absolute Neuts (auto) 6.1,Absolute Lymphs (auto) 3.46, Nucleated RBC % 0, Differential Comment SCANNED, Platelet Estimate ADEQUATE, PT 12.8, INR 0.9, APTT 26.4, Sodium 135, Potassium 3.7, Chloride 99, Carbon Dioxide 23.5, Anion Gap 12, BUN 11, Creatinine 0.98, Estim Creat Clear Calc 100.82, Est GFR (MDRD) Non-Af 103, BUN/Creatinine Ratio 10.8, Glucose 88, Hemoglobin A1c 5.3, Calcium 8.6, Troponin T High Sens < 6 12/23/24 18:45: Troponin T Hi Sens 2 Hr < 6 12/23/24 18:50: Urine Opiates Screen NEGATIVE, U Buprenorphine Qual NEGATIVE, UrOxycodone Screen NEGATIVE, Urine Methadone Screen NEGATIVE, Urine Fentanyl Screen NEGATIVE, Ur Barbiturates Screen NEGATIVE, Ur Phencyclidine Scrn NEGATIVE, Ur Amphetamines Screen PRESUMPTIVE POSITIVE, U Benzodiazepines Scrn NEGATIVE, Urine Cocaine Screen NEGATIVE, U Cannabinoids Screen NEGATIVE 12/23/24 22:02: Troponin T Hi Sens 4Hr < 6 12/24/24 05:25: WBC 7.0, RBC 4.52 L, Hgb 13.9, Hct 42.2, MCV 93.4, MCH 30.8, MCHC 32.9, RDW Std Deviation 50.7 H, RDW Coeff of Carlyn 14.6, Plt Count 277, MPV 8.6, Immature Gran % (Auto) 0.400, Neut % (Auto) 48.6, Lymph % (Auto) 34.2, Richardson% (Auto) 13.1 H, Eos % (Auto) 3.0, Baso % (Auto) 0.7, Absolute Neuts (auto) 3.4,Absolute Lymphs (auto) 2.38, Nucleated RBC % 0, Sodium 141, Potassium 4.3, Chloride 105, Carbon Dioxide 26.4, Anion Gap 9, BUN 10, Creatinine 0.95, Estim Creat Clear Calc 104.00, Est GFR (MDRD) Non-Af 107, BUN/Creatinine Ratio 10.2, Glucose 89, Calcium 9.2, Phosphorus 5.1 H, Magnesium 2.2, Total Bilirubin 0.24, AST 20, ALT 21, Alkaline Phosphatase 105, Total Protein 6.5, Albumin 4.0, Globulin 2.5, Albumin/Globulin Ratio 1.6, Triglycerides 56, Cholesterol 96, LDL Cholesterol, Calc 42, VLDL Cholesterol 11, HDL Cholesterol 43, Cholesterol/HDL Ratio 2.25 Radiography Diagnostic Testing: Radiology Impression Brain CT 12/23/24 16:40 IMPRESSION: No acute, large territorial infarction. Reading Location: [facility] Head/Neck CTA 12/23/24 16:43 IMPRESSION: No acute large vessel occlusion or high-grade stenosis. Reading Location: [facility] Brain MRI 12/23/24 18:40 IMPRESSION: No acute intracranial hemorrhage or infarction. No abnormal enhancing lesions. Reading Location: [facility] Physical Exam Narrative GENERAL: cooperative HEENT: Atraumatic; normocephalic EYES; Anicteric, Normal Conjunctiva NECK; supple, normal thyroid, RESPIRATORY: Diminished to auscultation CARDIOVASCULAR: Regular S1 S2, GI: soft, normoactive bowel sounds, : No Renal angle tenderness; EXTREMITIES: No edema, no clubbing, MUSCULOSKELETAL: no muscle wasting NEURO: Awake; no lateralizing signs. SKIN: No Rash PSYCH; Flat affect Const Constitutional Narrative: Lower middle-aged, white male, sitting up in bed, family bedside, appears comfortable, nontoxic, nursing at bedside Eyes Eyes Narrative: No scleral icterus Neck Neck Narrative: Trachea midline Extremity Extremity Narrative: 2+ pulses Neuro Neuro Narrative: No leg drift or pronator drift on left side, no facial droop at this time, paresthesias on left face, left arm, left leg Assessment & Plan Assessment/Plan (1) Left-sided weakness: (2) Facial droop: (3) Paresthesias: PLAN: Plan Patient is a 34-year-old gentleman who presented with left-sided weakness paresthesias as well as left facial droop 1. Complex migraine ? Patient presented with Left-sided weakness/paresthesias/left facial droop. Patient admitted to a monitored bed underwent subsequent evaluation with MRI which was negative for CVA. Case was discussed with Dr. Shine with [facility] teleneurology who felt patient had complex migraine and no further workup was needed 2. HIV ? Patient is on Biktarvy and is followed by Dr. Downs [facility] 3. Dyslipidemia ?Patient is on statin therapy, continued at home dose 4. Polycystic kidney disease ? Outpatient follow-up with with primary care physician 6. Depression with anxiety ? Patient is on fluoxetine as well as buspirone 7. Allergic rhinitis ? Patient is on fluticasone 8. Sore throat ? Throat examination did not reveal any enlarged adenoids no erythema however ordered rapid strep throat 9. GERD ? On PPI 10. Tobacco dependence ? Counseled on cessation, offered nicotine patch for tobacco cravings 11.DVT prophylaxis - subcu Lovenox daily CODE STATUS - Full code NIHSS NIHSS Nursing Documentation NIHSS Nursing Documentation: NIHSS: Ischemic Stroke/TIA Start: 12/23/24 21:37 Text: For PCU Patients: NIH and Neuro Check every 4 Status: Active hours, PRN and with change in RN caregiver. Freq: [id number] Protocol: Activity Type Activity Date Activity User E-sign Co-sign Detail Recorded Client Recorded Date Recorded By Document 12/24/24 05:50 MG [id number] 12/24/24 06:00 MG 12/24/24 05:50 NIH Stroke Scale [NIHSS] A score of 0 is normal or asymptomatic . Total possible score is 42. Inpatient: RN or Physician to activate a stroke alert for onset of new stroke symptoms or with NIHSS increase >/= 3 points. Following change in neurological status, NIHSS will be performed per physician order or more frequently PRN. -1a. Level of Consciousness 0 - Alert; keenly responsive -1b. LOC Questions 0 - Answers BOTH questions correctly -1c. LOC Commands 0 - Performs BOTH tasks correctly -2. Best Gaze 0 - Normal -3. Visual 0 - No visual loss -4. Facial Palsy 0 - Normal symmetrical movements -5a. Left Arm 0 - No drift; arm holds 90 ( or 45) degrees for full 10 seconds -5b. Right Arm 0 - No drift; arm holds 90 ( or 45) degrees for full 10 seconds -6a. Left Leg 0 - No drift; leg holds 30- degree position for full 5 seconds -6b. Right Leg 0 - No drift; leg holds 30- degree position for full 5 seconds -7. Limb Ataxia 0 - Absent -8. Sensory 1 - Mild-to- moderate sensory loss; -9. Best Language 0 - No aphasia; normal -10. Dysarthria 0 - Normal -11. Extinction and Inattention 0 - No abnormality -Total 1 Query Text:A score of 0 is normal or asymptomatic. Total possible score is 42 . ED: Notify Physician for NIHSS increase by > / = 3 points. Inpatient: RN or Physician to activate a stroke alert for NIHSS increase of > / = 3 points. Coma Scale [Assess] -Eye Opening Spontaneous -Motor Obeys Commands -Verbal Oriented [Total] -Coma Scale Total 15 12/24/24 1319 <Electronically signed by Gutierrez Polanco MD> Cosigner Signature (if applicable): CC: ~ Signed [facility] Work Phone: 1([phone]) 521-603906-06-2025 Discharge summary [facility] Medical Records Department [address] [place] [address] Discharge Summary 12/24/24 1320 MR#: [id number] Acct: [id number] Name: FAUSTINO UNGER Rep #:[id number] : 1990 34 From: Gutierrez Polanco MD PCP: Dr. Humberto Downs MD Status:A DM KEITH Location: [place] [address] Providers Date of Admission: 12/23/24 Date of Discharge: 12/24/24 Primary Care Physician: Dr. Humberto Downs MD Consultations 12/23/24 21:37 Consult: Tele-Neurology Routine Consulting Provider: [facility] Reason for Consult: Acute Ischemic Stroke/TIA EMERGENT Consult: No MD Notified: Yes Date Notified: 12/23/24 Time Notified: 22:03 Method of Notification: Answering Service Nursing Unit Staff Notify [facility] of Tele-Neurology Consult: Yes Reason For Visit: L PARASTHESIAS/L SIDED WEAKNESS/L FACIAL DROOP Diagnosis Discharge Diagnosis (1) Left-sided weakness: Status: Acute Code(s): R53.1 - Weakness (2) Facial droop: Status: Acute Code(s): R29.810 - Facial weakness (3) Paresthesias: Status: Acute Code(s): R20.2 - Paresthesia of skin Plan Patient is a 34-year-old gentleman who presented with left-sided weakness paresthesias as well as left facial droop 1. Complex migraine ? Patient presented with Left-sided weakness/paresthesias/left facial droop. Patient admitted to a monitored bed underwent subsequent evaluation with MRI which was negative for CVA. Case was discussed with Dr. Shine with [facility] teleneurology who felt patient had complex migraine and no furtherworkup was needed 2. HIV ? Patient is on Biktarvy and is followed by Dr. Downs [facility] 3. Dyslipidemia ?Patient is on statin therapy, continued at home dose 4. Polycystic kidney disease ? Outpatient follow-up with with primary care physician 6. Depression with anxiety ? Patient is on fluoxetine as well as buspirone 7. Allergic rhinitis ? Patient is on fluticasone 8. Sore throat ? Throat examination did not reveal any enlarged adenoids no erythema however ordered rapid strep throat ? Strep throat PCR came back negative 9. GERD ? On PPI 10. Tobacco dependence ? Counseled on cessation, offered nicotine patch for tobacco cravings 11.DVT prophylaxis - subcu Lovenox daily CODE STATUS - Full code Medications at Discharge Home Medications bictegravir 50 mg-emtricitabine 200 mg-tenofovir alafenam 25 mg tablet (Biktarvy) 1 tab PO DAILY 11/25/22 albuterol sulfate 90 mcg/actuation aerosol inhaler 1 inh inhalation DAILY PRN shortness of breath or wheezing 08/27/23 ondansetron 4 mg disintegrating tablet 4 mg PO Q8H PRN PRN Nausea #10 tabs 12/06/23 lactobacillus combination no.9 4 billion cell capsule (Adult 50 Plus Probiotic) 4,000 mmu cells PO DAILY 03/10/24 propranolol 20 mg tablet 20 mg PO QDAY 03/10/24 cholecalciferol (vitamin D3) 25 mcg (1,000 unit) capsule (Vitamin D3) 50 mcg PO QDAY 03/31/24 fluticasone propionate 50 mcg/actuation nasal spray,suspension (Flonase Allergy Relief) 1 spray intranasal QDAY 03/31/24 gmralxhl-zlydongj-oyiwo acid 400 mcg-vit K 20 mcg-lycop 300 mcg tablet (One-A-Day Men's Multivitamin) 1 tab PO DAILY 03/31/24 fluoxetine 40 mg capsule 40 mg PO QDAY 04/14/24 buspirone 5 mg tablet 10 mg PO BID 08/11/24 aspirin 81 mg chewable tablet 1 tab PO DAILY 12/23/24 atorvastatin 40 mg tablet 40 mg PO QHS 12/23/24 melatonin 10 mg capsule 10 mg PO DAILY 12/23/24 pantoprazole 40 mg tablet,delayed release 40 mg PO DAILY 12/23/24 acetaminophen 325 mg tablet 650 mg (2 x 325 mg) PO Q4H PRN PRN Pain 1-10 Or Fever>99.6 #0 tabs 12/24/24 Hospital Course Summary of Care Provided Minutes Spent on Discharge: 35 Physical Exam Narrative GENERAL: cooperative HEENT: Atraumatic; normocephalic EYES; Anicteric, Normal Conjunctiva NECK; supple, normal thyroid, RESPIRATORY: Diminished to auscultation CARDIOVASCULAR: Regular S1 S2, GI: soft, normoactive bowel sounds, : No Renal angle tenderness; EXTREMITIES: No edema, no clubbing, MUSCULOSKELETAL: no muscle wasting NEURO: Awake; no lateralizing signs. SKIN: No Rash PSYCH; Flat affect Weight / BMI Weight Weight: 75.438 kg Body Mass Index (BMI) 25.2 ABG / Lab / Microbiology Data 12/24/24 05:25 12/24/24 05:25 Laboratory: Laboratory Results - last 24 hr 12/23/24 16:45: WBC 11.5 H, RBC 4.57 L, Hgb 14.0, Hct 42.0, MCV 91.9, MCH 30.6, MCHC 33.3, RDW Std Deviation 49.7 H, RDW Coeff of Carlyn 14.6, Plt Count 323, MPV 8.7, Immature Gran % (Auto) 0.500, Neut % (Auto) 52.7, Lymph % (Auto) 30.2, Richardson% (Auto) 13.2 H, Eos % (Auto) 2.9, Baso % (Auto) 0.5, Absolute Neuts (auto) 6.1,Absolute Lymphs (auto) 3.46, Nucleated RBC % 0, Differential Comment SCANNED, Platelet Estimate ADEQUATE, PT 12.8, INR 0.9, APTT 26.4, Sodium 135, Potassium 3.7, Chloride 99, Carbon Dioxide 23.5, Anion Gap 12, BUN 11, Creatinine 0.98, Estim Creat Clear Calc 100.82, Est GFR (MDRD)Non-Af 103, BUN/Creatinine Ratio 10.8, Glucose 88, Hemoglobin A1c 5.3, Calcium 8.6, Troponin T HighSens < 6 12/23/24 18:45: Troponin T Hi Sens 2 Hr < 6 12/23/24 18:50: Urine Opiates Screen NEGATIVE, U Buprenorphine Qual NEGATIVE, UrOxycodone Screen NEGATIVE, Urine Methadone Screen NEGATIVE, Urine Fentanyl Screen NEGATIVE, Ur Barbiturates Screen NEGATIVE, Ur Phencyclidine Scrn NEGATIVE, Ur Amphetamines Screen PRESUMPTIVE POSITIVE, U BenzodiazepinesScrn NEGATIVE, Urine Cocaine Screen NEGATIVE, U Cannabinoids Screen NEGATIVE 12/23/24 22:02: Troponin T Hi Sens 4Hr < 6 12/24/24 05:25: WBC 7.0, RBC 4.52 L, Hgb 13.9, Hct 42.2, MCV 93.4, MCH 30.8, MCHC 32.9, RDW Std Deviation 50.7 H, RDW Coeff of Carlyn 14.6, Plt Count 277, MPV 8.6,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 BUN 11, Creatinine 0.98, Estim Creat Clear Calc 100.82, Est GFR (MDRD) Non-Af 103, BUN/Creatinine Ratio 10.8, Glucose 88, Calcium 8.6, Troponin T High Sens < 6 Imaging Radiology Impression Brain CT 12/23/24 16:40 IMPRESSION: No acute, large territorial infarction. Reading Location: [facility] Head/Neck CTA 12/23/24 16:43 IMPRESSION: No acute large vessel occlusion or high-grade stenosis. Reading Location: [facility] Assessment & Plan Assessment/Plan (1) Left-sided weakness: (2) Facial droop: (3) Paresthesias: PLAN: Plan Left-sided weakness/paresthesias/left facial droop - Patient with previous TIA - Currently on aspirin and statin--> will continue - With new symptom onset will add Plavix 75 mg daily - Check lipid panel - Check hemoglobin A1c - Check echocardiogram - Check MRI with and without contrast due to history of HIV and age - Patient with history of illicit drug use will check toxicology screen - NIH as per protocol - Hold home propranolol and allow for permissive hypertension - Consult neurology HIV - Continue home Biktarvy - Follows with Dr. Downs Essential hypertension/hyperlipidemia - Hold home propranolol and allow for permissive hypertension with concern for stroke - Continue home atorvastatin - check lipid panel Polycystic kidney disease - Continue outpatient follow-up - Renal function is normal Asthma/seasonal allergies - Continue home nasal spray - Continue home albuterol as needed History of colorectal cancer - With previous bowel resection GERD - Continue home PPI Insomnia - Continue melatonin Depression/anxiety - Continue home BuSpar - Continue fluoxetine History of substance abuse - Previous methamphetamine use - Will check urine tox screen - Per report 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 Daija Lopez DO; Dr. Humberto Downs MD~ Signed [facility]06-05-2025 Radiology Diagnostic study note [facility] Imaging Services [address] [place] [address] STROKE Brain/Head without Cont MR#: [id number] Acct: [id number] Name: FAUSTINO UNGER Rep #: [id number] : 1990 M 34 From: Marichuy Scott MD PCP: Dr. Humberto Downs MD Status: R EG ER Study:STROKE Brain/Head without Cont Date of Exam: 12/23/24 Exam# [id number] Ordering Dr: Kyle Valerio DO ADDENDUM by Dr. Jose Scott MD on 12/23/[address] Valerio was notified by Jose Scott at 5:05pm EST on 12/23/24 Reading Location: [facility] 12/23/24 1721 Date cc: Dr. Humberto Downs MD; Dr. Kyle Valerio DO ~* Signed PROCEDURE: STROKE BRAIN/HEAD WITHOUT CONT 12/23/2024 REASON FOR EXAM: NEURO DEFICIT, ACUTE, STROKE SUSPECTED TECHNIQUE: Head CT without intravenous contrast. Coronal and Sagittal reconstruction serieswere provided. One or more dose reduction techniques were used (e.g., Automated exposure control, adjustment of the mA and/or kV according to patient size, use of iterative reconstruction technique. RADIATION DOSE SUMMARY: DLP: 873 mGycm COMPARISON: MR from 11/30/2024 FINDINGS: There is no acute infarct, intracranial hemorrhage, or mass effect. There is no hydrocephalus or significant midline shift. No acute, depressed calvarial fractures. No large scalp hematomas. CT/STROKE Brain/Head without Cont IMPRESSION: No acute, large territorial infarction. Reading Location: [facility] CC: Dr. Humberto Downs MD; Dr. Kyle Valerio DO ~ Bus Girl: Signed [facility]06-05-2025 Radiology Diagnostic study note [facility] Imaging Services [address] [place] [id number] STROKE CTA Head AND Neck W/Con MR#: [id number] Acct: [id number] Name: FAUSTINO UNGER Rep #: [id number] : 1990 M 34 From: Marichuy Scott MD PCP: Dr. Humberto Downs MD Status: R ER Study:STROKE CTA Head AND Neck W/Con Date of Exam: 12/23/24 Exam# [id number] Ordering Dr: Kyle Valerio DO PROCEDURE: STROKE CTA HEAD AND NECK W/CON 12/23/2024 REASON FOR EXAM: NEURO DEFICIT, ACUTE, STROKE SUSPECTED TECHNIQUE: CTA imaging of the head and neck from the aortic arch to the skull vertex with out contrast and with intravenous contrast. Multiplanar and multisequence images were obtained. CONTRAST: 100 mL of Isovue 370 One or more dose reduction techniques were used (e.g., Automated exposure control, adjustment of the mA and/or kV according to patient size, use of iterative reconstruction technique). RADIATION DOSE SUMMARY: DLP: 968 mGycm COMPARISON: None FINDINGS: The aortic arch demonstrates a type I configuration. The ostia of the great vessels are patent. There is conventional branching. The right CCA is patent. There is no significant stenosis of the right carotid bifurcation by NASCET criteria. The cervical right ICA is patent. The right MCA and right RASHMI appear patent. There is no large vessel occlusion. The left CCA is patent. There is no significant stenoses at the left carotid bifurcation by NASCET criteria. The cervical left ICA is patent. The left MCA and left RASHMI appear patent. There is no large vessel occlusion. The right vertebral artery arises from the right subclavian artery. The left vertebral artery arises from the left subclavian artery. Both vertebral arteries are patent. The right vertebral artery is dominant. Right vertebralartery predominantly forms the basilar artery with diminutive flow from the left V4, likely chronic/congenital. Both posteriorcerebral arteries arise from the tip of the basilar. Both proximal DIGITAL X RAY SERVICE ENGINEER segments are patent. There is no large vessel occlusion. There is no enhancing intracranial mass. Shotty cervical lymph nodes are identified. The thyroid gland is heterogeneous. The lung apices demonstrate no pneumothorax. No destructive osseous abnormalities identified. CT/STROKE CTA Head AND Neck W/Con IMPRESSION: No acute large vessel occlusion or high-grade stenosis. Reading Location: [id number] CC: Dr. Humberto Downs MD; Dr. Kyle Valerio DO ~ Bus Girl: Signed [facility]06-05-2025 History of Present illness Narrative* Joie Morales RDMS - 12/23/2024 3:15 PM EDT Radiology Service Progress Note PATIENT NAME: Faustino Unger DATE OF SERVICE: December 23, 2024 TIME: 4:25 PM PATIENT IDENTITY VERIFICATION COMPLETED USING TWO (2) IDENTIFIERS: Name and Date of confirmedby patient verbally. FALL SCREENING: Has the patient had 2 falls in the last year or 1 fall with injury or currently using an Ambulatory Assistive Device (Walker, Cane, Wheelchair, Crutches, etc.)? No PATIENT GENDER DATA: Assigned male at PATIENT RELEVANT IMPLANT DATA REVIEWED: Not Applicable PATIENT PRESENTS WITH AN IMPLANTABLE OR ATTACHED SECTION GANG: No RADIOLOGY DEPARTMENT: Ultrasound PERIPHERAL IV DATA: Not applicable SIGNED BY: Joie Morales RDMS December 23, 2024 4:25 PM [facility] NoteHNO ID: [id number] Author: JOIE MORALES RDMS Service: ? Author Type: Commercial Portfolio Manager Type: Progress Notes Filed: 12/23/2024 16:25 Note Text: Radiology Service Progress Note PATIENT NAME: Faustino Unger DATE OF SERVICE: December 23, 2024 TIME: 4:25 PM PATIENT IDENTITY VERIFICATION COMPLETED USING TWO (2) IDENTIFIERS: Name and Date of confirmed by patient verbally. FALL SCREENING: Has the patient had 2 falls in the last year or 1 fall with injury or currently using an Ambulatory Assistive Device (Walker, Cane, Wheelchair, Crutches, etc.)? No PATIENT GENDER DATA: Assigned male at PATIENT RELEVANT IMPLANT DATA REVIEWED: Not Applicable PATIENT PRESENTS WITH AN IMPLANTABLE OR ATTACHED SECTION GANG: No RADIOLOGY DEPARTMENT: Ultrasound PERIPHERAL IV DATA: Not applicable SIGNED BY: Joie Morales RDMS December 23, 2024 4:25 [facility] Evaluation note* Diagnosis Onset Date Resolution Status Admit Date Family history of cerebral aneurysm acute December 09, 2024 1 1:07am First time seizure acute December 092024 11:07am Migraine headache with aura acute December 09, 2024 11:07am Syncope acute December 09, 2024 11:07am Fatigue noneactive December 09, 2024 11:07am Facial droop resolved December 23 6:34pm Left-sided weakness resolved December 23, 2024 6:34pm Paresthesias resolved December 23 6:34pm Tick bite acute January 13 2:40pm [facility] Work Phone: [phone]) [phone] Evaluation note* Diagnosis Onset Date Resolution Status Admit Date Migraine headache with aura acute December 09, 2024 11:07am Acute left-sided weakness resolved December 09, 2024 11:07am First time seizure resolved December 092024 11:07am Syncope resolved December 09, 2024 11:07am Fatigue noneactive December 09, 2024 11:07am Facial droop resolved December 23 6:34pm Left-sided weakness resolved December 23, 2024 6:34pm Paresthesias resolved December 23 6:34pm Migraine headache with aura acute January 13, 2025 2:40pm Seizures acute January 13 2:40pm Tick bite acute January 13 2:40pm Acute left-sided weakness resolved January 13, 2025 2:40pm Syncope resolved January 13 2:40pm Fatigue noneactive January 13 2:40pm [facility] Work Phone: 1(633) 355-768205-22-2025 Evaluation note* Diagnosis Onset Date Resolution Status Admit Date Migraine headache with aura acute December 09, 2024 11:07am Acute left-sided weakness resolved December 09, 2024 11:07am First time seizure resolved December 092024 11:07am Syncope resolved December 09, 2024 11:07am Fatigue noneactive December 09, 2024 11:07am Facial droop resolved December 23 6:34pm Left-sided weakness resolved December 23, 2024 6:34pm Paresthesias resolved December 23 6:34pm Migraine headache with aura acute January 13, 2025 2:40pm Seizures acute January 13 2:40pm Tick bite acute January 13 2:40pm Acute left-sided weakness resolved January 13, 2025 2:40pm Syncope resolved January 13 2:40pm Fatigue noneactive January 13 2:40pm Strain of right wrist acute Jan 1:19pm [facility] Work Phone: 1(374) 462-471205-22-2025 Evaluation note* Diagnosis Onset Date Resolution Status Admit Date Migraine headache with aura acute December 09, 2024 11:07am Acute left-sided weakness resolved December 09, 2024 11:07am First time seizure resolved December 092024 11:07am Syncope resolved December 09, 2024 11:07am Fatigue noneactive December 09, 2024 11:07am Facial droop resolved December 23 6:34pm Left-sided weakness resolved December 23, 2024 6:34pm Paresthesias resolved December 23 6:34pm Migraine headache with aura acute January 13, 2025 2:40pm Seizures acute January 13 2:40pm Tick bite acute January 13 2:40pm Acute left-sided weakness resolved January 13, 2025 2:40pm Syncope resolved January 13 2:40pm Fatigue noneactive January 13 2:40pm Strain of right wrist acute Jan 1:19pm Fatigue noneactive February 14 10:54am [facility] Work Phone: 1(419) 831-502405-22-2025 Evaluation note* Diagnosis Onset Date Resolution Status Admit Date Migraine headache with aura acute December 09, 2024 11:07am Acute left-sided weakness resolved December 09, 2024 11:07am First time seizure resolved December 092024 11:07am Syncope resolved December 09, 2024 11:07am Fatigue noneactive December 09, 2024 11:07am Facial droop resolved December 23 6:34pm Left-sided weakness resolved December 23, 2024 6:34pm Paresthesias resolved December 23 6:34pm Migraine headache with aura acute January 13, 2025 2:40pm Seizures acute January 13 2:40pm Tick bite acute January 13 2:40pm Acute left-sided weakness resolved January 13, 2025 2:40pm Syncope resolved January 13 2:40pm Fatigue noneactive January 13 2:40pm Strain of right wrist acute Jan 1:19pm Fatigue noneactive February 14 10:54am Hypoglycemia acute March 17, 2025 2:26pm Migraine headache with aura acute March 17, 2025 2:26pm Seizures acute March 17, 2 025 2:26pm Tick bite acute March 17, 2 025 2:26pm Acute left-sided weakness resolved March 17, 2025 2:26pm Syncope resolved March 17, 2 025 2:26pm Fatigue noneactive March 17, 2 025 2:26pm [facility] Work Phone: 1(983) 747-363705-22-2025 NoteHNO ID: [id number] Author: LEILA MENARD HUC Service: ? Author Type: Dropper Tank Storage Type: Progress Notes Filed: 12/09/2024 08:33 Note Text: Incidental Lung Nodule Enrollment Outreach attempt: 1st Attempt Outreach status: Complete Enrolled in Lung Nodule program: Yes Date of enrollment: 12/09/2024 Lung Nodule outreach: Enrolled Lung Nodule Program [facility]: [place] [facility] NotePatient Outreach (PULMMN) FAUSTINO UNGER ([id number]) 1990 M Date Time Provider Department 12/09/24 LEILA MENARD During your visit today, we recorded the following information about you: Leila Menard HUC 12/09/2024 8:33 AM Signed Incidental Lung Nodule Enrollment Outreach attempt: 1st Attempt Outreach status: Complete Enrolled in Lung Nodule program: Yes Date of enrollment: 12/09/2024 Lung Nodule outreach: Enrolled Lung Nodule Program Location: [place] 12/30/24 scheduled Allergies As of Date: 12/09/2024 [...] thrombolyti*11/27/2024 Encounter Status:Closed by LEILA MENARD on 12/09/24[facility] NoteHNO ID: [id number] Author: MARCEL NICHOLS APRN.COMMUNITY REINVESTMENT ACT OFFICER Service: ? Author Type: Nurse Practitioner Type: [...] PKD - Right kidney reportedly enlarged per stock repairer Dr. Skye Lopez. - Upcoming nephrology appointment [...] by Dr. Downs, infectious disease specialist in [place]. Anxiety and Depression: - Managed with BuSpar 10 mg BID and Prozac 40 mg daily, prescribed by provider at [facility] Lifestyle: - Smokes approximately 1/4 pack [...] RRR without murmur, gallop, (more content not included)...[facility]05-10-2025 NoteHNO ID: [id number] Author: NED KENNY MD Service: Hospital Medicine Author Type: Physician Type: Progress Notes Filed: 11/29/2024 11:06 Note Text: Documentation Query Please clarify the Diagnosis associated with clinical indicators Metabolic Encephalopathy This document will become part of the patient's medical record.[facility]05-10-2025 NoteHNO ID: [id number] Author: NED KENNY MD Service: Hospital Medicine Author Type: Physician Type: Progress Notes Filed: 11/29/2024 10:54 Note Text: Documentation Query Please clarify the Type of CHF: Other No CHF This document will become part of the patient's medical record.[facility]05-10-2025 NoteHNO ID: [id number] Author: LEANDRO MARI LSW Service: Care Management Author Type: Editor Book Type: Care Mgt Progress Note Filed: 11/27/2024 14:10 Note Text: CARE MANAGEMENT PROGRESS NOTE SERVICE DATE: 11/27/2024 SERVICE TIME: 2:10 PM LOS: 3 days Post-Acute Discharge Planning Patient Goal(s): Independent living, Be able to go home, General wellness Ronald of Choice Explained: Discharge Planning Participant(s): Patient/Family Comments: Anticipated # of Days Until Discharge: 4 Transport at Discharge: Family to transport home Needs Prior to Discharge: Needs Prior to Discharge: Ready for Discharge Post-Acute Discharge Plan: Patient discharging home with self care. Summary of care completed. SIGNATURE: TYRELL Deluca PATIENT NAME: Faustino Unger DATE: November 27, 2024 TIME: 2:10 [facility]05-09-2025 NoteHNO ID: [id number] Author: NED KENNY MD Service: Hospital Medicine Author Type: Physician Type: Progress Notes Filed: 11/26/2024 17:10 Note Text: DEPARTMENT OF HOSPITAL MEDICINE Hospital Medicine/Primary Attending: Ned Kenny MD NIGHT AND WEEKEND COVERAGE: After 7pm please page [phone] MEDICATIONS: Current Facility-Administered Medications Medication Dose Route [...] 10% iv bolus 12.5 g INTRAVENOUS PRN zgudncowuzs-kiygrjblyooqh-yigojfuut alafenamide 50-200-25 mg 1 tablet (BIKTARVY) 1 [...] today's visit: Lab data: CBC: Recent Labs 11/26/24 0608 11/25/24 0227 11/24/24 1143 WBC 5.33 7.92 6.71 HB 14.3 13.7 13.5 HCT 42.2 40.0 41.6 PLT 232 227 245 MCV 91.7 92.0 93.5 RDWCV 13.9 13.9 13.9 NEUTP -- -- 48.0 ABSNEUT -- -- 3.22 LYMPHP -- -- 35.3 MONOP -- -- 12.4 EODINP -- -- 3.6 COAG: Recent Labs 11/25/24 1147 11/24/24 1143 APTT 21.8* 25.1 INR 1.0 1.0 BMP: Recent Labs 11/26/24 0608 11/25/2422611/24/24 1143 GLUC 98 89 59* NA 140 141 139 K 4.1 3.6* 4.1 CHLOR 103 106 104 CO2 27 24 28 ANION 10 11 7* BUN 10 7* 7* CREAT 0.83 0.84 0.88 CHEM: Recent Labs 11/26/24 0611/25/2422611/24/24 1143 ALB -- -- 3.9 TPROT -- [...] Plan of care discussed with: Patient and surveyor mine and Non-Pharmacologic VTE Prophylaxis/Anticoagulants Anticoagulant AND Antiplatelet Medications (From admission, onward) Start Dose Route Freque (more content not included)...[facility]05-09-2025 NoteHNO ID: [id number] Author: NOREEN LOPEZ RN Service: Care Management [...] Unger DATE: November 26, 2024 TIME: 4:01 [facility]05-08-2025 NoteHNO ID: [id number] Author: YORDAN ABEL, RN Service: Nursing Author Type: Registered Nurse Type: Nursing Progress Note Filed: 11/25/2024 18:16 Note Text: Patient transferred to 9100 in stable condition.[facility] 11-25-2024 NoteHNO ID: [id number] Author: JADYN BUI [facility] Service: Pharmacy Author Type: Pharmacist Type: Plan of Care Filed: 11/26/2024 15:09 Note Text: PHARMACY MEDICATION REVIEW Patient Name: Faustino Unger : 1990 The following medications were updated within the [employer]PH[employer] medication list: Medications ADDED to [employer] medication list SUMAtriptan (IMITREX) 50 mg tablet Take 50 mg by mouth as needed for migraine headache (see administration instructions). Tadalafil (CIALIS) 5 mg tablet Take 1 tablet by mouth once daily. Medications CHANGED on [facility] medication list Medications REMOVED from [employer] medication list topiramate (TOPAMAX) 50 mg tablet [...] medication history: Yes Medication history completed by: Commercial Portfolio Manager: Eden Perez (Flotation Tender) Source of history: Patient: Reliability of source: Appears reliable, clearly identified: Medication name, Medication dose, Medication route, and Medication frequency, Pharmacy records: e-scripts/dispense report, and [facility] records Medication nonadherence identified: No barriers noted Reconciliation completed: Yes Completed by: Jadyn Bui, PharmD, [facility] Nursing Unit Based Pharmacist Ext: [phone] All [facility] medications addressed by LIP Patient interested in Bedside Delivery Services or using OP Pharmacy at discharge? Unable to assess Preferred outpatient pharmacy: e- [id number] [place] [address] - [address] [facility] - [phone] [facility] [phone] Allergies: Antihistimine Mental Status Change Metoclopramide Mental [...] once daily. Facility-Administered Medications: None Eden Perez (Flotation Tender)[id number] 11/25/2024 I have reviewed and agree with the medication history note completed by the as documented above. All medications reviewed and reconciled appropriately. Jadyn Bui, SylvainD, [facility] Nursing Unit Based Pharmacist Ext: [phone]25 NoteHNO ID: [id number] Author: PHAN SILVERIO LSW Service: Care Management Author Type: Editor Book Type: Care Mgt Progress Note Filed: 11/25/2024 16:07 Note Text: CARE MANAGEMENT PROGRESS NOTE SERVICE DATE: 11/25/2024 SERVICE TIME: 4:06 PM LOS: 1 day SW Consult Chart reviewed. SW attempted to meet with pt at bedside to complete stroke depression screen, another discipline at bedside. SIGNATURE: TYRELL Turcios PATIENT NAME: Faustino Unger DATE: November 25, 2024 TIME: 4:06 [facility]05-08-2025 NoteHNO ID: [id number] Author: MIKEL LABOY RN Service: Care Management Author Type: Registered Nurse Type: Care Mgt Initial Assessment Filed: 11/25/2024 09:46 Note Text: CARE MANAGEMENT: ASSESSMENT AND DISCHARGE PLAN SERVICE DATE: November 25, 2024 SERVICE TIME: 9:40 AM PCP: No (History) Pcp Primary Contact: Extended Emergency Contact Information Primary Emergency Contact: Addie Flores Address: [address] [place] [address] Mobile Relation: Father Admission Status: Inpatient Insurance Provider: [employer] [employer]ICA[employer] Discharge Planning requested by: Per Department Practice Potential Transition Plans To Be Determined Advance Directives Current Advance Directive: None Ophthalmic Nurse Attempted to Assist with AD Completion: Yes [...] Be able to go home, General wellness Ronald of Choice Explained: Ronald of Choice Given: No Reason Not Given: [...] he has an appointment on 12/09 in [place] to establish with a PCP, but does [...] Unger DATE: November 25, 2024 TIME: 9:40 [facility]05-07-2025 Attending History and physical note* Deborah Kendall MD - 11/24/2024 11:30 AM EDT UPDATED HISTORY AND PHYSICAL EXAMINATION SERVICE DATE: 11/24/2024 SERVICE TIME: 9:35 Participation of a fellow, resident, medical student, or advanced practice provider student in performing the sensitive examination was discussed with the patient or authorized agency service representative. The patient or authorized agency service representative has agreed to proceed with the sensitive examination. PHYSICAL EXAM MUST BE COMPLETED ON ADMISSION The History and Physical (completed in the past 30 days) has been reviewed and the patient has beenexamined. The contents accurately reflect the patient's condition [...] viral load is undetectable. Follows with Dr. Dowsn. Faustino also refers he has HF. He [...] colonoscopy was 07/02/[address] Dangelo at [facility]. Sedation: MAC EGD Impression: - Normal esophagus. [...] the patient printed material concerning the procedure. Faustion freely consents to surgery. -Switch to Protonix [...] may have procedure cancelled forpatient's safety. Diagnoses: (K29.80) Duodenitis without bleeding (primary encounter diagnosis) (R12) Heart burn (R10.13) Epigastric abdominal pain (Z86.0100) History of colonic polyps (Z00.00) Wellness examination (K92.1) Melena Portions of this documentation were copied and pasted from previous office visit notes in order to provide a cohesive continuity of the history. The note has been reviewed and edited and updated as necessary. Cathi Parks APRN.COMMUNITY REINVESTMENT ACT OFFICER [facility] Work Phone: 1(677) 978-568405-07-2025 History and physical note* Deborah Kendall MD - 11/24/2024 11:30 AM [...] refers he has HF. He follows with [facility]. He refers he has had consults [...] colonoscopy was 07/02/[address] Dangelo at [facility]. Sedation: MAC EGD Impression: - Normal esophagus. [...] the patient printed material concerning the procedure. Fasutino freely consents to surgery. -Switch to Protonix [...] may have procedure cancelled forpatient's safety. Diagnoses: (K29.80) Duodenitis without bleeding (primary encounter diagnosis) (R12) Heart burn (R10.13) Epigastric abdominal pain (Z86.0100) History of colonic polyps (Z00.00) Wellness examination (K92.1) Melena Portions of this documentation were copied and pasted from previous office visit notes in order to provide a cohesive continuity of the history. The note has been reviewed and edited and updated as necessary. Cathi Blair, PRESSURIZATION MECHANIC.COMMUNITY REINVESTMENT ACT OFFICER [facility]05-07-2025 History and physical note* Debroah Kendall MD - 11/24/2024 11:30 AM EDT UPDATED HISTORY AND PHYSICAL EXAMINATION SERVICE DATE: 11/24/2024 SERVICE TIME: 9:35 Participation of a fellow, resident, medical student, or advanced practice provider student in performing the sensitive examination was discussed with the patient or authorized agency service representative. The patient or authorized agency service representative has agreed to proceed with the sensitive examination. PHYSICAL EXAM MUST BE COMPLETED ON ADMISSION The History and Physical (completed in the past 30 days) has been reviewed and the patient has beenexamined. The contents accurately reflect the patient's condition [...] colonoscopy was 07/02/[address] Dangelo at [facility]. Sedation: MAC EGD Impression: - Normal esophagus. [...] may have procedure cancelled forpatient's safety. Diagnoses: (K29.80) Duodenitis without bleeding (primary encounter diagnosis) (R12) Heart burn (R10.13) Epigastric abdominal pain (Z86.0100) History of colonic polyps (Z00.00) Wellness examination (K92.1) Melena Portions of this documentation were copied and pasted from previous office visit notes in order to provide a cohesive continuity of the history. The note has been reviewed and edited and updated as necessary. Cathi Parks APRN.COMMUNITY REINVESTMENT ACT OFFICER * Deborah Kendall MD - 11/24/2024 11:30 AM [...] colonoscopy was 07/02/[address] Dangelo at [facility]. Sedation: MAC EGD Impression: - Normal esophagus. [...] may have procedure cancelled forpatient's safety. Diagnoses: (K29.80) Duodenitis without bleeding (primary encounter diagnosis) (R12) Heart burn (R10.13) Epigastric abdominal pain (Z86.0100) History of colonic polyps (Z00.00) Wellness examination (K92.1) Melena Portions of this documentation were copied and pasted from previous office visit notes in order to provide a cohesive continuity of the history. The note has been reviewed and edited and updated as necessary. Cathi Parks APRN.COMMUNITY REINVESTMENT ACT OFFICER documented [facility]25 NoteHNO ID: [id number] Author: MORELIA VELAZQUEZ MD, PhD Service: ? Author Type: Physician Type: Progress Notes Filed: 11/24/2024 11:26 Note Text: TELESTROKE DOCUMENTATION Name: Faustino Unger : 1990 Referring Site: [facility] Referring Provider: Dr. Cuello Last Known Well [...] a telestroke. Thank you for contacting the [facility]. I appreciate the opportunity for allowing me to participate in Faustino Unger's care. Please feel free to contact me and/or the [facility] at any time if you have any further questions or need additional assistance. Morelia Velazquez MD, PhD November 24, 2024 11:26 [facility]05-07-2025 History of Present illness Narrative* Morelia Velazquez MD, PhD - 11/24/2024 10:56 AM EDT TELESTROKE DOCUMENTATION Name: Faustino Unger : 1990 Referring Site: [facility] Referring Provider: Dr. Cuello Last Known Well (Date/Time): 11/24/24 1035 Neurologist Callback (Date/Time): 11/24/24 1056 Chief Complaint: left-sided weakness and neglect HPI: 34 year old male with HIV and colon cancer who presented with left-sided weakness and neglect.LKW < 4.5h ago. CTH wiht no acute [...] Thrombolysis. I have explained the risks, benefits, andalternatives with the patient and/or the family members. [...] acuity ICU care Planned Facility for Transfer: [facility] I personally completed this evaluation as a staff physician: Yes Video: Minutes spent directly evaluating the patient via teleconferencing, reviewing pertinent diagnostic data, and coordinating care : 70 Video: Case complexity: Complex More than 50 percent of the encounter was spent on coordinating care of the patient during a telestroke. Thank you for contacting the [facility]. I appreciate the opportunity for allowing me to participate in Faustino Unger's care. Please feel free to contact me and/or the [facility] at any time if you have any further questions or need additional assistance. Morelia Velazquez MD, PhD November 24, 2024 11:26 AM documented in this encounterOhio State East Hospital05-07-2025 Nurse Note* Manju Tarn RN - 11/24/2024 10:51 AM EDT Event(s) / Intervention Note: PATIENT NAME: Faustino Unger Patient Location: [facility] Room: 14 The patient was observed having the following problems: Patient stated he was nauseous after wakingup from anesthesia. Dr. Lambert aware and Zofran order placed. This nurse was returning to the bedside to give zofran when patient was noted to have loss of consciousness at 1035. Patient was then aroused by nurses at bedside and patient had stated I don't feel good while grabbing the right side ofhis head before having another loss of consciousness at 1041. Patient noted to have weakness in left arm when waking back up. Stroke alert called from ASCU and sent to CT Scan. The time of the event occurred at: 1035. The following intervention(s) were initiated: Dr. Lambert at patient bedside,2mg Zofran given, Strokealert called and patient taken to CT Scan. [facility]05-07-2025 Nurse Note* Manju Tran RN - 11/24/2024 10:51 AM EDT Event(s) / Intervention Note: PATIENT NAME: Faustino Unger Patient Location: [facility] Room: 14 The patient was observed having the following problems: Patient stated he was nauseous after wakingup from anesthesia. Dr. Lambert aware and Zofran order placed. This nurse was returning to the bedside to give zofran when patient was noted to have loss of consciousness at 1035. Patient was then aroused by nurses at bedside and patient had stated I don't feel good while grabbing the right side ofhis head before having another loss of consciousness at 1041. Patient noted to have weakness in left arm when waking back up. Stroke alert called from [facility] and sent to CT Scan. The time of the event occurred at: 1035. The following intervention(s) were initiated: Dr. Lambert at patient bedside,2mg Zofran given, Strokealert called and patient taken to CT Scan. * Anette Cheng RN - 11/24/2024 10:20 AM EDT Nursing Progress Note Topic of Note: Daily Note PATIENT NAME: Faustino Unger Patient Location: Room/bed info not found Room: ED-04 (ED-04) Handoff repot to PACU Phase 2 RN by this headline writer and FOOD SERVICE AGENT. Patient beginning to arouse as we left procedure room. Upon handoff patient more awake, talking appropriately to FOOD SERVICE AGENT, listening to handoff report. He assisted FOOD SERVICE AGENT with reapplication of pulse ox onto left hand and verbally stated, Oh, I'm sorry regarding his positioning. No abnormalities noted at this time. This note was completed by: Anette Cheng * Aarti Hammer RN - 11/24/2024 9:14 AM EDT Other: pt ready for OR, call light in reach, dad called to bedside documented in this encounterOhio State East Hospital05-07-2025 Nurse Note* Anette Cheng RN - 11/24/2024 10:20 AM EDT Nursing Progress Note Topic of Note: Daily Note PATIENT NAME: Faustino Unger Patient Location: Room/bed info not found Room: ED-04 (ED-04) Handoff repot to PACU Phase 2 RN by this headline writer and FOOD SERVICE AGENT. Patient beginning to arouse as we left procedure room. Upon handoff patient more awake, talking appropriately to FOOD SERVICE AGENT, listening to handoff report. He assisted FOOD SERVICE AGENT with reapplication of pulse ox onto left hand and verbally stated, Oh, I'm sorry regarding his positioning. No abnormalities noted at this time. This note was completed by: Anette Cheng [facility]05-07-2025 NoteHNO ID: [id number] Author: AARTI HAMMER RN Service: Nursing Author Type: Registered Nurse Type: Nursing Progress Note Filed: 11/24/2024 09:14 Note Text: Other: pt ready for OR, call light in reach, dad called to bedsideTr[facility] [id number] Nurse Note* Aarti Hammer RN - 11/24/2024 9:14 AM EDT Other: pt ready for OR, call light in reach, dad called to bedside [facility]04-28-2025 Telephone encounter Note* Telephone Encounter - Mitchell Landaverde - 11/15/2024 8:32 AM EDT 11-24-2024 EGD Colonoscopy [facility]04-28-2025 Miscellaneous Notes* Telephone Encounter - Mitchell Landaverde - 11/15/2024 8:32 AM EDT 11-24-2024 EGD Colonoscopy documented in this encounterOhio State East Hospital04-22-2025 History of Present illness Narrative* Cathi Parks APRN.SAL - 11/09/2024 11:00 AM EDT HISTORY AND PHYSICAL Faustino Unger [...] colonoscopy was 07/02/[address] Dangelo at [facility]. Sedation: MAC EGD Impression: - Normal esophagus. [...] may have procedure cancelled forpatient's safety. Diagnoses: (K29.80) Duodenitis without bleeding (primary encounter diagnosis) (R12) Heart burn (R10.13) Epigastric abdominal pain (Z86.0100) History of colonic polyps (Z00.00) Wellness examination (K92.1) Melena Portions of this documentation were copied and pasted from previous office visit notes in order to provide a cohesive continuity of the history. The note has been reviewed and edited and updated as necessary. Cathi Parks APRN.SAL documented in this encounterOhio State East Hospital04-22-2025 NoteHNO ID: [id number] Author: CATHI PARKS APRN.CNP Service: ? Author [...] colonoscopy was 07/02/[address] Dangelo at [facility]. Sedation: MAC EGD Impression: - Normal esophagus. [...] daily. No current facility-ad (more content not included)...[facility] 10-29-2024 Instructions* Patient Instructions* Tali Caballero MD - 10/29/2024 12:01 PM EDT Please continue [phone] mg calcium daily, can include 1 or 2 calcium tablets if not able to get all with diet Continue Vitamin d supplements Please consider weight bearing exercise upto 150 mins per week documented in this encounterOhio State East Hospital04-11-2025 NoteHNO ID: [id number] Author: TALI CABALLERO MD Service: ? Author Type: Physician Type: Progress Notes Filed: 10/30/2024 20:57 Note Text: Endocrinology and Metabolism [place] Follow up note Chief Complaint: Low BMD [...] since 10/2022. Follows up with ID in [facility] He is on omeprazole 20 mg daily [...] intestine, [place] done at that time in [place]. He is going for colonoscopy next month [...] extremity swelling Skin: normal, (more content not included)...[facility]04-11-2025 History of Present illness Narrative* Tali Caballero MD - 10/29/2024 11:54 AM EDT Endocrinology and Metabolism [place] Follow up note Chief Complaint: Low BMD [...] since 10/2022. Follows up with ID in [facility] He is on omeprazole 20 mg daily [...] intestine, surgery done at that [place] in [place]. He is going for colonoscopy next month [...] BP Cuff Size: Regular Adult) Pulse 90 Temp36.4 C (97.5 F) (Temporal Artery) Wt 77.5 [...] Review Reviewed by Ochoa Arias MD, Ph.D ([id number]) IgG 700 - 1,600 mg/dL 800 IgA 70 - 400 mg/dL 263 IgM 40 - 230 mg/dL 150 [place] Free, Serum 3.3 - 19.4 mg/L 17.0 Lambda Free, Serum 5.7 - 26.3 mg/L 16.0 K/L Ratio, Serum 0.26 - 1.65 1.06 MPA Result No M protein is identified. No M protein is identified. Staff Review (MPA) Reviewed by Ochoa Arias MD, Ph.D ([id number]) Vasc Endo Growth Factor 9 - 86 [...] Fecal - Split 10 - 370 mmol/mol SAFETY SPEC 99 Creatine, Urine per 24 Hr mg/24h [...] years, Gender: Male SCANNER INFORMATION: DXA Model: Handy C 30567 Date Scanned: 04/01/2024 10:25 AM CLINICAL HISTORY: [...] had a previous bone density in the [facility] or the previous bone density was performed on a different DXA machine (new, updated model ordifferent location) within the [facility]. VERTEBRAL FRACTURE ASSESSMENT Not performed. TRABECULAR [...] 2. Low BMD for age - continue 9216-6102 mg calcium daily, can include 1 or 2 calcium tablets if not able to get all with diet - Continue Vitamin d supplements - consider weight bearing exercise upto 150 mins per week Follow up in 1 year or sooner if any bone related concerns noted like fractures Tali Caballero MD Endocrinology Associate Staff [facility] Endocrinology and Metabolism [place] [phone] Medical Decision Making: Problems: Low: Stable chronic illness Data: Unique test result(s) reviewed: 3+ Medical Decision Making Level: 3 - Low documented in this encounterOhio State East Hospital04-07-2025 History of Present illness Narrative* Chidi Ortega Jr. - 10/25/2024 3:45 PM EDT Originally Recorded By Florence Macias Date Taken 09/16/2024 Type of Communication Interaction: Phone call with client Intervention / Activities: RWAD Application (Scheduling/Follow-Up) Dilip Moseley is the payer of last resort: N/A Case Progress Notes Narrative: MCM called the client to schedule for RWAD appt. MCM left voicemail,MCM will follow up documented in this encounterCreativeD Phone: 1([phone]) 901-601503-13-2025 History of Present illness Narrative* Chidi Ortega Jr. - 09/30/2024 1:24 PM EDT Originally Recorded By Frank Orozco Date Taken [...] for lack of participation. documented in this encounterCreativeD Phone: [phone] 722-491803-04-2025 Telephone encounter Note* Telephone Encounter - Val Zee - 09/21/2024 9:22 AM EST Message left informing patient that [facility] is no longer accepting new patients for PCP. [facility] is closest to establish care. [facility] Work Phone: [phone] 611-610803-04-2025 Miscellaneous Notes* Telephone Encounter - Val Zee - 09/21/2024 9:22 AM EST Message left informing patient that [facility] is no longer accepting new patients for PCP. [facility] is closest to establish care. * Telephone Encounter - Magui Palafox RN - 09/20/2024 3:43 PM EST Patient informed that he should follow-up with his PCP or the ordering provider for the follow-up CT. Patient stated his investigations consultant is not willing order the follow-up chest CT and patient stated hedoes not have a PCP. Per patient, his Collection Systems Administrator sent the results to patients infectious disease provider. Patient would like to establish care with a PCP. Can we contact patient to set him up with a PCP? Thank you. Magui Palafox RN * Telephone Encounter - Magui Palafox RN - 09/17/2024 2:56 PM EST Called patient, no answer, left a VM requesting a call back from patient. Magui Palafox RN documented in this encounterOhio State East Hospital03-03-2025 Telephone encounter Note * Telephone Encounter - Magui Palafox RN - 09/20/2024 3:43 PM EST Patient informed that he should follow-up with his PCP or the ordering provider for the follow-up CT. Patient stated his investigations consultant is not willing order the follow-up chest CT and patient stated hedoes not have a PCP. Per patient, his Collection Systems Administrator sent the results to patients infectious disease provider. Patient would like to establish care with a PCP. Can we contact patient to set him up with a PCP? Thank you. Magui Palafox RN [facility]03-03-2025 History of Present illness Narrative* Venus Ni - 09/20/2024 8:15 AM EST Originally Recorded By Florence Macias Client has [...] needs help with referrals. [facility]Red [facility] Work Phone: [phone] 870-561202-28-2025 Telephone encounter Note* Telephone Encounter - Magui Palafox RN - 09/17/2024 2:56 PM EST Called patient, no answer, left a VM requesting a call back from patient. Magui Palafox RN [facility]02-24-2025 Evaluation note* Diagnosis Onset Date Resolution Status Admit Date Anxiety disorder chronic September 13, 2024 1:27pm Chest pain chronic September 13, 2024 1:27pm HIV (human immunodeficiency virus infection) chronic September 13, 2024 1:27pm Hypertension chronic August 1:27pm Mild mitral valve regurgitation chronic September 13, 1:27pm Family history of cerebral aneurysm acute December 09, 2024 1 1:07am First time seizure acute December 092024 11:07am Migraine headache with aura acute December 09, 2024 11:07am Syncope acute December 09, 2024 11:07am Fatigue noneactive December 09, 2024 11:07am [facility] Work Phone: 1(565) 632-457602-24-2025 Evaluation note* Diagnosis Onset Date Resolution Status Admit Date Anxiety disorder chronic September 13, 2024 1:27pm Chest pain chronic September 13, 2024 1:27pm HIV (human immunodeficiency virus infection) chronic September 13, 2024 1:27pm Hypertension chronic August 1:27pm Mild mitral valve regurgitation chronic September 13, 2 025 1:27pm Family history of cerebral aneurysm acute December 09, 2024 1 1:07am First time seizure acute December 092024 11:07am Migraine headache with aura acute December 09, 2024 11:07am Syncope acute December 09, 2024 11:07am Fatigue noneactive December 09, 2024 11:07am Facial droop acute December 23 6:34pm Left-sided weakness acute December 23, 2024 6:34pm Paresthesias acute December 23 6:34pm [facility] Work Phone: [phone] 370-771402-19-2025 History of Present illness Narrative* Venus [place] - 09/08/2024 1:11 PM EST Originally Recorded By (Staff Name)_Frank Lim Reason for Case Closure Client has not participated in PN program in any meaningful way. Client has been discharged for lack of participation. Peer Navigator Signature: <html xmlns=http://www.w3.org/1999/xhtml><head><title>Electronic Signature</t itle></head><body><[facility] [email or web address]?ref=[email or web address]&db=[email or web address] alt=Signature Image ifjnga=687 tczwm=218>
Signature:
<label style=margin-left: 60px;>Frank Orozco (Site: [facility])</label></body></html> Day Care Center Director Signature: <html xmlns=http://www.w3.org/1999/xhtml><head><title>Electronic Signature</t itle></head><body><img src=[email or web address]?ref=D [email or web address]&db=etoArc[place] alt=Signature Image dmuwzh=132 bplnz=962>
Signature:
<label style=margin-left: 60px;>Day Care Center Director Signature</label></body></html> Peer Navigation Start Date 09/04/2023 Peer Navigation End Date 07/09/[address] [facility] [employer] Work Phone: 1(497) 317-215001-28-2025 IcolYRMC-[id number]-6 (AGENT OF COVID-19) RNA: Not detected INFLUENZA A RNA: Not detected INFLUENZA B RNA: Not detected RESPIRATORY SYNCYTIAL VIRUS (RSV) RNA: DetectedCentral Maine Medical CenterComment on above:Performed By: #### [id number] #### [facility] CLIA [id number] [address] [place] [address] OF [id number] Evaluation note* Diagnosis Onset Date Resolution Status Admit Date Family history of cerebral aneurysm acute August 11 9:41am First time seizure acute Januar 2024 9:41am Migraine headache with aura acute August 11, 2024 9:41am Syncope acute August 11, 2024 9:41am Anxiety disorder chronic September 13, 2024 1:27pm Chest pain chronic September 13, 2024 1:27pm HIV (human immunodeficiency virus infection) chronic September 13, 2024 1:27pm Hypertension chronic August 1:27pm 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 Cathi Parks APRN.SAL documented in this encounterOhio State East Hospital01-22-2025 NoteHNO ID: [id number] Author: CATHI PARKS APRN.CNP Service: ? Author Type: Nurse Practitioner Type: Progress Notes Filed: 08/11/2024 12:59 Note Text: FOLLOW UP VISIT - ENDOSCOPY Faustino Unger 1990 [id number] REFERRING PHYSICIAN: No referring provider defined for [...] as needed for worsening/no improvement. Cathi Parks APRN.[facility]01-21-2025 Instructions* Patient Instructions* Tali Caballero MD - [...] to starting the test, you need to picker packer the specially prepared collection jug at the [...] up to 10-14 days. documented in this encounterOhio State East Hospital01-21-2025 NoteHNO ID: [id number] Author: TALI CABALLERO MD Service: ? Author Type: Physician Type: Progress Notes Filed: 08/10/2024 19:14 Note Text: Endocrinology and Metabolism [place] Follow up note NAME: Faustino Unger is [...] since 10/2022. Follows up with ID in [facility] He is on omeprazole 20 mg daily [...] intestine, [place]. He is going for colonoscopy next month [...] and affect are normal (more content not included)...[facility]01-21-2025 History of Present illness Narrative* Tali Caballero MD - 08/10/2024 11:24 AM EST Endocrinology and Metabolism [place] Follow up note NAME: Faustino Unger is [...] since 10/2022. Follows up with ID in [facility] He is on omeprazole 20 mg daily [...] intestine, surgery done at that time in [place]. He is going for colonoscopy next month [...] Review Reviewed by Ochoa Arias MD, Ph.D ([id number]) IgG 700 - 1,600 mg/dL 800 IgA 70 - 400 mg/dL 263 IgM 40 - 230 mg/dL 150 [place] Free, Serum 3.3 - 19.4 mg/L 17.0 Lambda Free, Serum 5.7 - 26.3 mg/L 16.0 K/L Ratio, Serum 0.26 - 1.65 1.06 MPA Result No M protein is identified. No M protein is identified. Staff Review (MPA) Reviewed by Ochoa Arias MD, Ph.D ([id number]) Vasc Endo Growth Factor 9 - 86 [...] years, Gender: Male SCANNER INFORMATION: DXA Model: [employer] - LifeVantage C 31613 Date Scanned: 04/01/2024 10:25 AM CLINICAL HISTORY: [...] had a previous bone density in the [facility] or the previous bone density was performed on a different DXA machine (new, updated model ordifferent location) within the [facility]. VERTEBRAL FRACTURE ASSESSMENT Not performed. TRABECULAR [...] months Tali Caballero MD Endocrinology Associate Staff [facility] Endocrinology and Metabolism [place] [phone] Medical Decision Making: Problems: Moderate: New problem with uncertain prognosis Data: Unique test result(s) reviewed: 3+ Unique test(s) ordered: 3+ Risk: Moderate: Moderate risk from testing/treatment Medical Decision Making Level: 4 - Moderate documented in this encounterOhio State East Hospital12-22-2024 JfjnTRNA-[id number]-4 (AGENT OF COVID-19) RNA: Not detected INFLUENZA A RNA: Not detected INFLUENZA B RNA: Not detected RESPIRATORY SYNCYTIAL VIRUS (RSV) RNA: Not detectedAkron General Medical CenterComment on above:Performed By: #### [id number] ####[facility] [id number] [place] [address] [place] OF [id number] History and physical note* Tyree Dangelo, DO [...] Take 1,000 Units by mouth once daily. 12/12/2024Yes albuterol HFA (PROVENTIL HFA, VENTOLIN HFA) 90 [...] DATE: July 02, 2024 TIME: 2:04 PM [facility]12-13-2024 History and physical note* Tyree Dangelo [...] 2024 TIME: 2:04 PM documented in this encounterOhio State East Hospital11-18-2024 Instructions* Patient Instructions* Tali Caballero MD [...] 300 Yogurt (6 oz [168 g]) 250 Tom Green juice (with calcium, 8 oz [240 mL]) [...] 50 to 135 Almonds (24 whole) 70 Tom Green (1 medium) 60 If you think you [...] 5 days a week documented in this encounterOhio State East Hospital11-18-2024 NoteHNO ID: [id number] Author: TALI CABALLERO MD Service: ? Author Type: Physician Type: Progress Notes Filed: 06/07/2024 19:05 Note Text: Endocrinology and Metabolism [place] Initial Clinic Visit Note NAME: Faustino Unger is a 33 year old old male PCP: Humberto Downs MD Requesting Provider: Meaghan Keys[address] [facility] [address] My final recommendations will be communicated back [...] since 10/2022. Follows up with ID in [facility] He is on omeprazole 20 mg daily [...] intestine, [place] done [place]. He is going for colonoscopy next month [...] no hepatosplenomegaly Musculoskeletal: normal (more content not included)...[facility] 06-07-2024 History of Present illness Narrative* Tali Caballero MD - 06/07/2024 3:12 PM EST Endocrinology and Metabolism [place] Initial Clinic Visit Note NAME: Faustino Unger is a 33 year old old male PCP: Humberto Downs MD Requesting Provider: Meaghan Bloom [address] [facility] [address] My final recommendations will be communicated back [...] since 10/2022. Follows up with ID in [facility] He is on omeprazole 20 mg daily [...] intestine, surgery done at that time in [place]. He is going for colonoscopy next month [...] Review Reviewed by Ochoa Arias MD, Ph.D ([id number]) IgG 700 - 1,600 mg/dL 800 IgA 70 - 400 mg/dL 263 IgM 40 - 230 mg/dL 150 [place] Free, Serum 3.3 - 19.4 mg/L 17.0 Lambda Free, Serum 5.7 - 26.3 mg/L 16.0 K/L Ratio, Serum 0.26 - 1.65 1.06 MPA Result No M protein is identified. No M protein is identified. Staff Review (MPA) Reviewed by Ochoa Arias MD, Ph.D ([id number]) Vasc Endo Growth Factor 9 - 86 [...] years, Gender: Male SCANNER INFORMATION: DXA Model: [employer] - LifeVantage C 64902 Date Scanned: 04/01/2024 10:25 AM CLINICAL HISTORY: [...] had a previous bone density in the [facility] or the previous bone density was performed on a different DXA machine (new, updated model or different location) within the [facility]. VERTEBRAL FRACTURE ASSESSMENT Not performed. TRABECULAR [...] satisfaction Tali Caballero MD Endocrinology Associate Staff [facility] Endocrinology and Metabolism [place] [phone] Medical Decision Making: Problems: Moderate: New problem with uncertain prognosis Data: Unique test result(s) reviewed: 3+ Unique test(s) ordered: 3+ Independent interpretation of test from other physician/QHCP Risk: Moderate: Moderate risk from testing/treatment Medical Decision Making Level: 4 - Moderate documented in this encounterOhio State East Hospital10-01-2024 Telephone encounter Note * Telephone Encounter - Elaine Barreto - 04/20/2024 3:06 PM EDT Spoke with patient and scheduled Endocrinology referral. Elaine Barreto [facility]10-01-2024 Miscellaneous Notes* Telephone Encounter - Elaine Barreto - 04/20/2024 3:06 PM EDT Spoke with patient and scheduled Endocrinology referral. Elaine Barreto * Telephone Encounter - Samantha Jacobo LPN - 04/20/2024 9:45 AM EDT Pt aware, please assist with endocrin ref. Samantha Jacobo LPN * Telephone Encounter - Samantha Jacobo LPN - 04/19/2024 9:17 AM EDT Left VM, will send MyChart message. Advised pt to call office or respond in Mychart if he had any questions. Will need [...] density. Meaghan Bloom DO documented in this encounterOhio State East Hospital10-01-2024 Telephone encounter Note * Telephone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 Medical Records Department [address] [place] [address] Consultation - Infectious Dx 08/28/23 1037 MR#: [id number] Acct: [id number] Name: FAUSTINO UNGER Rep #:[id number] : 1990 33 From: Humberto coker MD PCP: Care Physician,No Primary Status :ADM KEITH Location: [place] [address] Assessment & Plan Assessment/Plan (1) HIV (human [...] and neg except as noted above. [facility] Medical History (Updated 08/28/23 @ 10:41 by [...] % (Auto) 55.9, Lymph % (Auto) 29.0, Richardson % (Auto) 11.4 H, Eos % (Auto) [...] 18:10 EST Reading Location ID and State: [employer] [place] Tel , Service support , Brain CT 08/27/23 17:49 IMPRESSION: Normal unenhanced CT scan of the brain. Electronically Signed: Pete Vega MD at 18:49 EST Reading Location ID and State: [employer] / [employer] Tel , Service support , Chest CTA 08/27/23 17:49 IMPRESSION: Normal CTA chest examination, without a demonstrated pulmonary embolism or arterial dissection. Electronically Signed: Pete Vega MD at 19:01 EST Reading Location ID and State: [employer] [place] Tel , Service support , Facial/Sinus 08/27/23 17:49 IMPRESSION: Nasal bone fracture, age indeterminate. No mandibular fracture noted. Electronically Signed: Pete Vega MD at 18:54 EST Reading Location ID and State: [employer] Tel , Service support , Head/Neck CTA 08/27/23 20:00 IMPRESSION: No aneurysm identified. Left vertebral artery anatomic variant as above. Electronically Signed: Pete Vega MD at 21:10 EST Reading Location ID and State: [employer] / [employer] Tel , Service support , 08/28/23 1043 <Electronically signed by Humberot Downs MD> Cosigner Signature (if applicable): CC: Judy Tena; Deborah Miles; Juan Dotson; Azeb Ghotra MD; Adilene Nava MD; Martir Dubsoe MD; Elio Santacruz MD; Dr. Kyle Eaton MD; Dr. Addie Ayala MD; Dr. Tye Bee MD; Dr. Sarah Corrales MD; Dr. Magalie García MD; Dr. Shekhar Dunne MD; Dr. Tj Calvin DO; Dr. Sarai Montgomery MD; Dr. Karl Hoang MD; Dr. Pankaj Rao MD; Dr. Justine Sandoval MD; Dr. Humberto Downs MD; Dr. Valerio Coppola MD; Dr. Monica Lopez MD; Sandra Chandler MD; Chicho Pierce MD; Minda Villagran DO; Kerwin Rachel MD; No Primary Care Physician; Shira Boss DO; Brennan Simon MD~ Signed [facility] Work Phone: 1(809) 331-422802-08-2024 Procedure [facility] 08-28-2023 History and physical note Author Pankaj Rao [facility] August 28, 2023 4:56am Note Date/Time August 27, 2023 9 :52pm [facility] Medical Records Department [address] [place] [address] H&P Exam - Hospitalist 08/27/23 2151 MR#: [id number] Acct: [id number] Name: FAUSTINO UNGER Rep #:[id number] : 1990 33 From: Pankaj Mayer PCP: Care Physician,No Primary Status :ADM KEITH Location: [place] [address] HPI - General General Date of Admission: [...] and discussed in assessment and plan. [facility] Medical History Acid reflux Asthma Cancer [...] % (Auto) 55.9, Lymph % (Auto) 29.0, Richardson % (Auto) 11.4 H, Eos % (Auto) [...] 19:01 EST Reading Location ID and State: [employer] / [place] Tel , Service support , Facial/Sinus 08/27/23 17:49 IMPRESSION: Nasal bone fracture, age indeterminate. No mandibular fracture noted. Electronically Signed: Pete Vega MD at 18:54 EST Reading Location ID and State: [id number] / [place] Tel , Service support , Head/Neck CTA [...] . He was in contact with a audio visual collections coordinator to prepare paperwork but does not have any power ofattorney for health. After discussion of benefits/risks procedures involved with full code, DNR CC arrest and DNR CC, the patient opted for full code. Patient does want artificial life support including intubation, tube feed, ventilator and/chest compression, central venous catheter, vasopressor and DC shock if needed Total time spent in [id number]-[id number] encounter in discussion of advanced directive 17 minutes. Laboratory Results 08/27/23 16:58: WBC 7.3, RBC 4.65, Hgb 14.7, Hct 43.2, MCV 92.9, MCH 31.6, MCHC 34.0, RDW Std Deviation 45.1 H, RDW Coeff of Carlyn 13.2, Plt Count 243, MPV 8.4, Immature Gran % (Auto) 0.300, Neut % (Auto) 55.9, Lymph % (Auto) 29.0, Richardson % (Auto) 11.4 H, Eos % (Auto) [...] Screen Comment Charges/Coding Visit Charges Inpatient E&M: 67140 Init Hosp L3 Procedures Hospitalists Procedures: 98943 Advncd Care Plan 30 Min 08/28/23 0004 [...] MD; No Primary Care Physician ~* Signed [facility] Work Phone: 1(249) 252-185302-08-2024 Discharge summary Author Pal Wilson [facility] August 27, 2023 10:22pm Note Date/Time August 27, 2023 6 :02pm [facility] Medical Records Department [address] [place], [place] [address] [address] Emergency Department Summary 08/27/23 MR#: [id number] Acct: [id number] Name: FAUSTINO UNGER Rep #:[id number] : 1990 33 From: Pla Wilson DO PCP: Care Physician,No Primary Status :ADM KEITH Location: [place] [address] HPI History of Present Illness Chief Complaint: Syncope [...] has a family history of cerebral aneurysms. [facility] Medical History Acid reflux Asthma Cancer [...] is currently homelessnow and was brought in [facility] after he found out that his family [...] % (Auto) 55.9 Lymph % (Auto) 29.0 Richardson % (Auto) 11.4 H Eos % (Auto) [...] 18:10 EST Reading Location ID and State: [employer] / [place] Tel , Service support , Brain CT 08/27/23 17:49 IMPRESSION: Normal unenhanced CT scan of the brain. Electronically Signed: Pete Vega MD at 18:49 EST Reading Location ID and State: [employer] Tel , Service support , Chest CTA 08/27/23 17:49 IMPRESSION: Normal CTA chest examination, without a demonstrated pulmonary embolism or arterial dissection. Electronically Signed: Pete Vega MD at 19:01 EST Reading Location ID and State: [employer] / [employer] Tel , Service support , Facial/Sinus 08/27/23 17:49 IMPRESSION: Nasal bone fracture, age indeterminate. No mandibular fracture noted. Electronically Signed: Pete Vega MD at 18:54 EST Reading Location ID and State: [employer] Tel , Service support , Head/Neck CTA 08/27/23 20:00 IMPRESSION: No aneurysm identified. Left vertebral artery anatomic variant as above. Electronically Signed: Pete Vega MD at 21:10 EST Reading Location ID and State: [employer] Tel , Service support , Discharge Plan Triage Chief Complaint: Syncope ED Provider: Pal Wilson Dx/Rx/DC Orders Primary Care Provider: Care Physician,No Primary What to do if you have Problems For any increased pain, shortness of breath, bleeding, nausea or vomiting, chestpain, or any unexpected problems, contact your Primary Care Provider. Call [facility] ([phone]) or report to the closest Emergency Room. Call 911 if necessary. 08/27/232221 <Electronically signed by Pal Wilson DO> Cosigner Signature (if applicable): CC: No Primary Care Physician ~ Signed [facility] Work Phone: 1(518) 759-913602-07-2024 Discharge summary Author Pal Wilson [facility] August 27, 2023 10:22pm Note Date/Time August 27, 2023 6 :02pm [facility] Medical Records Department [address] [place] [address] Emergency Department Summary 08/27/23 MR#: [id number] Acct: [id number] Name: FAUSTINO UNGER Rep #:[id number] : 1990 33 From: Pal Wilson DO PCP: Care Physician,No Primary Status :ADM KIETH Location: [address] History of Present Illness Chief Complaint: [...] has a family history of cerebral aneurysms. [facility] Medical History Acid reflux Asthma Cancer [...] is currently homelessnow and was brought in tonight after he found out that his family [...] % (Auto) 55.9 Lymph % (Auto) 29.0 Richardson % (Auto) 11.4 H Eos % (Auto) [...] 18:10 EST Reading Location ID and State: [employer] Tel , Service support , Brain CT 08/27/23 17:49 IMPRESSION: Normal unenhanced CT scan of the brain. Electronically Signed: Pete Vega MD at 18:49 EST Reading Location ID and State: [employer] Tel , Service support , Chest CTA 08/27/23 17:49 IMPRESSION: Normal CTA chest examination, without a demonstrated pulmonary embolism or arterial dissection. Electronically Signed: Pete Vega MD at 19:01 EST Reading Location ID and State: [employer] Tel , Service support , Facial/Sinus 08/27/23 17:49 IMPRESSION: Nasal bone fracture, age indeterminate. No mandibular fracture noted. Electronically Signed: Pete Vega MD at 18:54 EST Reading Location ID and State: [employer] Tel , Service support , Head/Neck CTA 08/27/23 20:00 IMPRESSION: No aneurysm identified. Left vertebral artery anatomic variant as above. Electronically Signed: Pete Vega MD at 21:10 EST , Discharge Plan Triage Chief Complaint: Syncope ED Provider: Pal Wilson Dx/Rx/DC Orders Primary Care Provider: Care Physician,No Primary What to do if you have Problems For any increased pain, shortness of breath, bleeding, nausea or vomiting, chestpain, or any unexpected problems, contact your Primary Care Provider. Call [facility] ([phone]) or report to the closest Emergency Room. Call 911 if necessary. 08/27/232221 <Electronically signed by Pal Wilson DO> Cosigner Signature (if applicable): CC: No Primary Care Physician ~ Signed [facility] Work Phone: 1(930) 877-565512-27-2023 Discharge summary Author Tj Burns [facility] July 16, 2023 6:28pm Note Date/Time July 16, 2023 5:15pm [facility] Medical Records Department [address] [place] [address] Emergency Department Summary 07/16/23 MR#: [id number] Acct: [id number] Name: FAUSTINO UNGER Rep #:[id number] : 1990 32 From: Tj Burns MD [...] as well. He denies any other injury. [facility] Medical History Acid reflux Asthma Cancer [...] motor deficits and no sensory deficits noted Josiah Coma Scale: document GCS findings Spontaneous Obeys [...] fracture or traumatic subluxation. Electronically Signed: Prakash Galindo DO at 17:39 EST , Cervical Spine CT 07/16/23 17:11 IMPRESSION: 1. Bilateral nasal bone fractures appear to be acute. Overlying nasal soft tissue swelling. 2. No CT evidence of acute intracranial pathology. 3. Degenerative changes in the cervical spine. No acute fracture or traumatic subluxation. Electronically Signed: Prakash Galindo DO at 17:39 EST , Discharge [...] your Primary Care Provider. Call [facility] ([phone]) or report to the closest Emergency Room. Call 911 if necessary. 07/16/231827 <Electronically signed by Tj Burns MD> Cosigner Signature (if applicable): CC: No Primary Care Physician ~ Signed [facility] Work Phone: 1(260) 126-483609-20-2023 Miscellaneous Notes* Telephone Encounter - Tj Sorto [...] but being that the [place] was in [place], he elected not to go. He did [...] discussion Tj Sorto DPM [facility] Miscellaneous Notes* Telephone Encounter - Tj [...] mri. Tj Sorto DPM documented [facility]-2023 Miscellaneous Notes* Telephone Encounter - Tj Sorto - 02/26/2023 1:08 PM EDT I called patient to respond to his [employer] message. Patient reports he recently noticed some [...] present to the emergency department. I discussed [facility]. He states he has had bad experiences at [facility]. Other options are he can go to [place] or he can go to [facility]. He has elected to present to [facility]. I will have him go to [facility] today. Tj Sorto DPM documented in [facility]07-14-2023 Miscellaneous Notes* Telephone Encounter - Tj Sorto - 01/31/2023 11:08 PM EDT I attempted to contact patient today in regards to his [employer] messsage. No answer. Will try to call next week. If condition worsens, present to ed Tj Sorto DPM documented [facility]07-11-2023 Miscellaneous Notes* Telephone Encounter - Tj Sorto - 01/28/2023 9:45 PM EDT I called patient this evening to report xray findings. I suspect his foot issue is more inflammatory arthritis especially given that the redness does improve with elevation. 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 While I want him to take the keflex as a precaution, I am going to also prescribe him an oral steroid and nsaid. The oral steroid he will take now. The nsaid he can take in future if he continues to have issue. Will call patient later this week to see how he is doing Tj Sorto DPM documented [facility]-11-2023 Instructions* Patient Instructions* Tj Sorto - 01/28/2023 11:42 AM EDT Soak your toe in soap and water or epsom salts Get xrays Take antibiotic If condition does not improve, consider partial nail removal documented in [facility] encounter[facility]07-11-2023 History of Present illness Narrative* Tj [...] results. Tj Sorto DPM Podiatry [address] [facility] [address] Dept: [phone] Dept * Rudy Kuhn RN - 01/28/2023 [...] bone marrow edemaand calcification. documented in this encounter[facility]01-12-2023 History of Present illness Narrative* Renetta [...] 2022 TIME: 2:49 PM documented in this encounter[facility]01-05-2023 History of Present illness Narrative* Rudy [...] Tj Sorto DPM Podiatry [address] [facility] [address] Dept: [phone] Dept * Shantel Luna LPN - 07/25/2022 [...] Swelling Shantel Luna LPN documented in this encounterOhio [facility]01-05-2023 Instructions* Patient Instructions* Tj Sorto - 07/25/2022 8:32 AM EST Powerstep Original Full length. Can purchase at [employer] here in [place], [employer] in [place] or [place]. Also can find in [place] in [facility]. Powersteps can also be purchased [...] everything fits well together documented in this encounterOhio [facility]12-05-2022 History of Present illness Narrative* Agaat Nelson - 06/24/2022 11:11 AM EST POPULATION HEALTH NAVIGATION OUTREACH Action/FYI Left vm Pt identified by name and : NO Outreach Outcome/Action Unable to reach patient: Left message MyChart message sent Did you use a PCP flex slot to schedule this appointment? No Reason for Outreach Care Gap or Scheduling/Wellness visits Payer: Payor: [employer] [employer]ICA[employer] / Plan: [facility] MEDICA[facility] / Product Type: Medicaid / Care [...] 24, 2022 11:12 AM documented in this encounterOhio [facility]11-30-2022 History of Present illness Narrative* Sammie [...] 19, 2022 1:50 PM documented in this encounterOhio [facility]12-14-2015 Miscellaneous Notes* Telephone Encounter - Ashleigh Jerome - 07/03/2015 2:00 PM EST spk with pt scheduled 07/07 at 11am * Telephone Encounter - Ashleigh Jerome - 07/03/2015 9:53 AM EST left vm [...] 12:16 PM EST RADIOLOGY CALL CENTER INTAKE MECHANICAL LABORATORY TECHNICIAN: GILBERT EXT:[id number] DATE: June 29, 2015 TIME: 12:16 PM TRACKING #. [id number] REQUESTING PERSON: BARRON PHONE/PAGER: [phone] REQUESTING STAFF: SERGE BRADSHAW PHONE/PAGER: [phone] ORDERING DESK LOCATION: Q10 If inpatient, patient location: N/A (Note: requests for inpatient's procedures should be given to the O.D. nurse at pager #[phone]) If outpatient, best way to reach patient: PATIENT @ [phone] Best time to call: ANY SCHEDULING: GREER [...] biopsies do not need imaging.) IMAGING: OUTSIDE [facility] Films: Where is study now: LOADED INTO [employer] (If the imaging was obtained outside the [facility] system, then it needs to be submitted for review prior to approval.) Note to all persons requesting biopsies: All biopsy requests will be scheduled as quickly as possible, based on the clinical urgency, availability of appointment times, the need to hold anti-thrombolytic therapy (aspirin, blood thinners) and the patient s schedule, including the need for an available independent driver. If a percutaneous biopsy or drainage is not felt to be safe or an alternative method for establishing a diagnosis is possible, this will be discussed directly with the requesting physician. documented in this encounterLake Wales ClinicDischar summary Author Bogdan Austin [facility] August 01, 2023 3:31am Note Date/Time August 01, 2023 2 :22am [facility] Medical Records Department [address] [place] [address] Emergency Department Summary 08/01/23 MR#: [id number] Acct: [id number] Name: FAUSTINO UNGER Rep #:[id number] : 1990 32 From: Bogdan Martinez PCP: Care Physician,No Primary Status :REG ER Location: ED HPI History of Present Illness Chief Complaint: Bite PFSH [facility] Medical History (Updated 08/01/23 @ 02:19 by [...] reviewed, Vital signs reviewed Constitutional: please see [facility] HENT: MMM Eyes: Pupils equal round and [...] tetanus Factors affecting care: HIV on Biktarvy [facility] Narrative: The patient suffered lacerations to the [...] Primary Care Provider: Care Physician,No Primary Referrals: Parth,Yesy, DO [Med Staff - Body Maker Machine Setter] - Landy Irby MD [Med Staff - Active Staff] - What to do if you have Problems For any increased pain, shortness of breath, bleeding, nausea or vomiting, chestpain, or any unexpected problems, contact your Primary Care Provider. Call [facility] ([phone]) or report to the closest Emergency Room. Call 911 if necessary. 08/01/23 0331 <Electronically signed by Bogdan Austin DO> Cosigner Signature (if applicable): CC: No Primary Care Physician ~ Signed [facility] Work Phone: Evaluation + Plan note No data available for this section [facility] Evaluation noteNo assessment information available [facility] Work Phone: Evaluation note* Diagnosis Soft tissue mass- Primary Disorders of soft tissue, unspecified Pain of toe of right foot Pain in limb Diminished pulses in lower extremity Other symptoms involving cardiovascular system Mass of right foot documented [facility] this encounter [facility] Diagnosis Pain of toe of right foot- Primary Pain in limb Soft tissue mass Disorders of soft tissue, unspecified Cellulitis and abscess of toe of right foot [facility]* Diagnosis Mass of right foot [facility]* Diagnosis Pain of toe of right foot Pain in limb Soft tissue mass Disorders of soft tissue, unspecified [facility]* Diagnosis Onset Date Resolution Status HIV (human immunodeficiency virus infection) acute Syncope acute [facility] Work Phone: Evaluation note* Diagnosis Abnormal finding of diagnostic imaging- Primary Other nonspecific (abnormal) findings on radiological and other examinations of body structure [facility]* Diagnosis Abnormal finding on imaging- Primary Other nonspecific (abnormal) findings on radiological and other examinations of body structure Osteopenia of other site Bony sclerosis Osteopetrosis Does not have primary care provider [facility]* Diagnosis Bony sclerosis- Primary Osteopetrosis Osteopenia of other site Testicular hypofunction Other testicular hypofunction Polycystic kidney disease Polycystic kidney, unspecified type [facility]* Diagnosis Bony sclerosis Osteopetrosis documented [facility]* Diagnosis Encounter for screening for malignant neoplasm of colon- Primary Special screening for malignant neoplasms, colon History of colonic polyps Personal history of colonic polyps Dysphagia, unspecified type Heartburn Diarrhea, unspecified type Bony sclerosis Osteopetrosis Osteopenia of other site Testicular hypofunction Other testicular hypofunction [facility]* Diagnosis Kidney cysts- Primary Unspecified congenital cystic kidney disease documented in this encounter [facility] note* Diagnosis Diarrhea, unspecified type [facility] this encounter [facility]* Diagnosis Bony sclerosis Osteopetrosis Osteopenia of other site Testicular hypofunction Other testicular hypofunction [facility] encounter [facility]* Diagnosis Pain of toe of right foot Pain in limb [facility] encounter [facility]* Diagnosis Osteopenia of lumbar spine- Primary documented in this encounter [facility]* Diagnosis Osteopenia of lumbar spine documented [facility] this encounter [facility]* Diagnosis Gastroesophageal reflux disease, unspecified whether esophagitis present- Primary Dysphagia, unspecified type History of colonic polyps Personal history of colonic polyps Encounter for screening for malignant neoplasm of colon Special screening for malignant neoplasms, colon Heartburn [facility] this encounter [facility]* Diagnosis Osteopenia of lumbar spine- Primary Low testosterone Other testicular hypofunction [facility] this encounter [facility]* Diagnosis Gastritis without bleeding, unspecified chronicity, unspecified gastritis type- Primary Duodenitis without bleeding Duodenitis without mention of hemorrhage Gastroesophageal reflux disease without esophagitis Esophageal reflux documented in this encounter [facility] note* Diagnosis Shortness of breath Chest pain, unspecified documented in this encounter [facility] Work Phone: Evaluation note* Diagnosis Low bone density for age- Primary Other disorders of bone and cartilage documented in this encounter [facility] note* Diagnosis Duodenitis without bleeding- Primary Duodenitis without mention of hemorrhage Heart burn Heartburn Epigastric abdominal pain Abdominal pain, epigastric History of colonic polyps Personal history of colonic polyps Wellness examination Melena Blood in stool documented in this encounter [facility] note* Diagnosis Stroke-like symptoms- Primary Other symptoms involving nervous and musculoskeletal systems documented [facility] this encounter [facility]* Diagnosis History of colonic polyps- Primary Personal history of colonic polyps Heart burn Heartburn Epigastric abdominal pain Abdominal pain, epigastric Stroke-like symptom Other symptoms involving nervous and musculoskeletal systems documented [facility] this encounter [facility]* Diagnosis Stroke-like symptoms- Primary Other symptoms involving nervous and musculoskeletal systems Stroke-like symptom Other symptoms involving nervous and musculoskeletal systems Thrombolytic medication administered within last 5 days Hypoglycemia Hypoglycemia, unspecified History of colonic polyps Personal history of colonic polyps Heartburn Nicotine use disorder, F17.2 Tobacco use disorder Pharyngeal irritation- Primary Other diseases of pharynx, not elsewhere classified documented in this encounter [facility] note* Diagnosis 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 Stroke-like symptom Other symptoms involving nervous and musculoskeletal systems Thrombolytic medication administered within last 5 days Hypoglycemia Hypoglycemia, unspecified History of colonic polyps Personal history of colonic polyps Heartburn Nicotine use disorder, F17.2 Tobacco use disorder Lung nodules Other nonspecific abnormal finding of lung field documented in this encounter [facility] note* Diagnosis 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 Stroke-like symptom Other symptoms involving nervous and musculoskeletal systems Thrombolytic medication administered within last 5 days Hypoglycemia Hypoglycemia, unspecified History of colonic polyps Personal history of colonic polyps Heartburn Nicotine use disorder, F17.2 Tobacco use disorder Urinary retention Retention of urine, unspecified documented in this encounter [facility] note* Diagnosis 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 Stroke-like symptom Other symptoms involving nervous and musculoskeletal systems Thrombolytic medication administered within last 5 days Hypoglycemia Hypoglycemia, unspecified History of colonic polyps Personal history of colonic polyps Heartburn Nicotine use disorder, F17.2 Tobacco use disorder Lung nodules- Primary Other nonspecific abnormal finding of lung field Nicotine use disorder, F17.2 Tobacco use disorder documented in this encounter [facility] note* Diagnosis 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 Stroke-like symptom Other symptoms involving nervous and musculoskeletal systems Thrombolytic medication administered within last 5 days Hypoglycemia Hypoglycemia, unspecified History of colonic polyps Personal history of colonic polyps Heartburn Nicotine use disorder, F17.2 Tobacco use disorder Recurrent seizures (HCC)- Primary Other forms of epilepsy and recurrent seizures without mention of intractable epilepsy documented in this encounter [facility] note* Diagnosis 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 Stroke-like symptom Other symptoms involving nervous and musculoskeletal systems Thrombolytic medication administered within last 5 days Hypoglycemia Hypoglycemia, unspecified History of colonic polyps Personal history of colonic polyps Heartburn Nicotine use disorder, F17.2 Tobacco use disorder Hypertension, unspecified type- Primary [facility] Diagnosis 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 Stroke-like symptom Other symptoms involving nervous and musculoskeletal systems Thrombolytic medication administered within last 5 days Hypoglycemia Hypoglycemia, unspecified History of colonic polyps Personal history of colonic polyps Heartburn Nicotine use disorder, F17.2 Tobacco use disorder Recurrent seizures (HCC) Other forms of epilepsy and recurrent seizures without mention of intractable epilepsy documented in this encounter [facility] note* Diagnosis 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 Stroke-like symptom Other symptoms involving nervous and musculoskeletal systems Thrombolytic medication administered within last 5 days Hypoglycemia Hypoglycemia, unspecified History of colonic polyps Personal history of colonic polyps Heartburn Nicotine use disorder, F17.2 Tobacco use disorder Hypertension, essential Unspecified essential hypertension documented in this encounter [facility] note* Diagnosis 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 Stroke-like symptom Other symptoms involving nervous and musculoskeletal systems Thrombolytic medication administered within last 5 days Hypoglycemia Hypoglycemia, unspecified History of colonic polyps Personal history of colonic polyps Heartburn Nicotine use disorder, F17.2 Tobacco use disorder Hypertension, essential Unspecified essential hypertension documented in this encounter [facility] note* Diagnosis Stroke-like symptom Other symptoms involving nervous and musculoskeletal systems History of colonic polyps Personal history of colonic polyps Nicotine use disorder, F17.2 Tobacco use disorder Thromboembolic stroke (HCC)- Primary Cerebral thrombosis with cerebral infarction Hypertension, essential Unspecified essential hypertension Encounter for immunization Need for other specified prophylactic vaccination against single bacterial disease Hypoglycemia Hypoglycemia, unspecified Currently asymptomatic HIV infection, with history of HIV-related illness (HCC) Polycystic kidney disease Polycystic kidney, unspecified type Mild intermittent asthma, unspecified whether complicated (HCC) Current episode of major depressive disorder without prior episode, unspecified depression episode severity Generalized anxiety disorder 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 All your work-up today was normal. Follow-up with primary care physician if not improving or return if worse.[facility] Work Phone: Hospital Discharge instructions Additional Instructions [...] care physician for further outpatient evaluation and management.[facility] Work Phone: Hospital Discharge instructions Additional Instructions If your symptoms return/worsen or you develop any further concerns or symptoms please see your doctor or return to the emergency department immediately.[facility] Work Phone: Hospital Discharge instructions No data available for this section [facility] Progress note No data available for this section [facility] Reason for referral (narrative)* Diagnostic Procedure Only (Routine) - Closed Specialty Diagnoses / Procedures Referred By Contac t Referred To Contact XR IMAGING Diagnoses Pain of toe of right foot Soft tissue mass Procedures XR TOE AP/LAT/OBL RIGHT RADEX TOE MINIMUM 2 VIEWS Tj Sorto [address] [place] [address] Xr Imaging Referral ID Status Reason Start Date Expiration Date V isits Requested Visits Authorized [id number] Closed Auto-Generate d Referral 01/28/2023 02/27/2024 1 1 T [facility] for referral (narrative)* Diagnostic Procedure Only (Routine) - Closed Specialty Diagnoses / Procedures Referred By Contac t Referred To Contact XR IMAGING Diagnoses Pain of toe of right foot Soft tissue mass Procedures XR TOE AP/LAT/OBL RIGHT RADEX TOE MINIMUM 2 VIEWS Tj Sorto [address] [place] [address] [place] [address] Referral ID Status Reason Start Date Expiration Date V isits Requested Visits Authorized [id number] Closed Auto-Generate d Referral 01/28/2023 02/27/2024 1 1 [facility] for referral (narrative)* Outpatient Procedure (Routine) - New Request Specialty Diagnoses / Procedures Referred By Roderick t Referred To Contact [facility] Diagnoses Dysphagia, unspecified type Heartburn Procedures EGD DIAGNOSTIC ESOPHAGOGASTRODUODENOSC OPY TRANSORAL DIAGNOSTIC Cathi Parks APRN.COMMUNITY REINVESTMENT ACT OFFICER [address] [place] [address] [facility] [address] [address] Referral ID Status Reason Start Date Expiration Date Visits Requested Visits Authorized [id number] New Request Auto-Generat ed Referral 03/23/2024 03/23/2025 1 1 * MRI/CT (Urgent) - Pending Review Specialty Diagnoses / Procedures Referred By Roderick chamorro Referred To Contact CT IMAGING Diagnoses Diarrhea, unspecified type Procedures CT ABD/PEL WO IVCON CT ABD & PELVIS W/O CONTRAST Cathi Parks APRN.COMMUNITY REINVESTMENT ACT OFFICER [address] [place] [address] [place] [address] Referral ID Status Reason Start Date Expiration Date Visits Requested Visits Authorized [id number] Pending Review Auto-Generat ed Referral 03/23/2024 04/22/2025 1 1 * Outpatient Procedure (Routine) - New Request Specialty Diagnoses / Procedures Referred By Roderick chamorro Referred To Contact [facility] Diagnoses History of colonic polyps Encounter for screening for malignant neoplasm of colon Procedures COLONOSCOPY SCREENING COLONOSCOPY FLX DX W/COLLJ SPEC WHEN PFRMD Cathi Parks APRN.COMMUNITY REINVESTMENT ACT OFFICER [address] [place] [address] [facility] [address] [address] Referral ID Status Reason Start Date Expiration Date Visits Requested Visits Authorized [id number] New Request Auto-Generat ed Referral 03/23/2024 03/23/2025 1 1 [facility] for referral (narrative)* Diagnostic Procedure Only (Urgent) - Closed Specialty Diagnoses / Procedures Referred By Roderick t Referred To Contact XR IMAGING Diagnoses Pain of toe of right foot Procedures XR TOE AP/LAT/OBL RIGHT RADEX TOE MINIMUM 2 VIEWS Aarti Osoroi APRN.COMMUN[employer] REINVESTMENT ACT OFFICER [address] [place] [address] [place] [address] Referral ID Status Reason Start Date Expiration Date V isits Requested Visits Authorized [id number] Closed Auto-Generate d Referral 06/19/2022 07/19/2023 1 1 [facility] for referral (narrative)* Outpatient Procedure (Routine) - Closed Specialty Diagnoses / Procedures Referred By Contdaniel t Referred To Contact [facility] Diagnoses Dysphagia, unspecified type Heartburn Procedures EGD DIAGNOSTIC ESOPHAGOGASTRODUODENOSC OPY TRANSORAL DIAGNOSTIC Cathi Parks APRN.COMMUNITY REINVESTMENT ACT OFFICER [address] [place] [address] [facility] [address] [place] [address] Referral ID Status Reason Start Date Expiration Date V isits Requested Visits Authorized [id number] Closed Auto-Generate d Referral 03/23/2024 03/23/2025 1 1 * Outpatient Procedure (Routine) - Closed Specialty Diagnoses / Procedures [facility] To Contact [facility] Diagnoses History of colonic polyps Encounter for screening for malignant neoplasm of colon Procedures COLONOSCOPY SCREENING COLONOSCOPY FLX DX W/COLLJ SPEC WHEN PFCathi Sanchez APRN.COMMUNITY REINVESTMENT ACT OFFICER [address] [place] [address] [facility] [address] [place], [place] [id number] Referral ID Status Reason Start Date Expiration Date V isits Requested Visits Authorized [id number] Closed Auto-Generate d Referral 03/23/2024 03/23/2025 1 1 [facility] for referral (narrative)No reason for referral information [facility] Work Phone: [facility] Narrative* Diagnostic Procedure Only (Routine) - Closed Specialty Diagnoses / Procedures Referred By Contac t Referred To Contact XR IMAGING Diagnoses Pain of toe of right foot Soft tissue mass Procedures XR TOE AP/LAT/OBL RIGHT RADEX TOE MINIMUM 2 VIEWS Tj Sorto [address] [place] [address] [place] [address] Referral ID Status Reason Start Date Expiration Date V isits Requested Visits Authorized [id number] Closed Auto-Generate d Referral 01/28/2023 02/27/2024 1 1 [facility] for visit Narrative* Diagnostic Procedure Only (Routine) - Closed Specialty Diagnoses / Procedures Referred By Contac t Referred To Contact XR IMAGING Diagnoses Bony sclerosis Procedures XR BONE SURVEY ROUTINE RADIOLOGIC EXAMINATION OSSEOUS SURVEY COMPL Meaghan Bloom, DO [address] [place] [address] [place] [address] Referral ID Status Reason Start Date Expiration Date V isits Requested Visits Authorized [id number] Closed Auto-Generate d Referral 03/15/2024 04/14/2025 1 1 [facility] for visit Narrative* Diagnostic Procedure Only (Routine) - Closed Specialty Diagnoses / Procedures Referred By Contac t Referred To Contact XR IMAGING Diagnoses Bony sclerosis Osteopenia of other site Testicular hypofunction Procedures DXA-AXIAL SKELETON Meaghan Bloom, DO [address] [place] [address] [place] [address] Referral ID Status Reason Start Date Expiration Date V isits Requested Visits Authorized [id number] Closed Auto-Generate d Referral 03/15/2024 04/14/2025 1 1 [facility] for visit Narrative* Diagnostic Procedure Only (Urgent) - Closed Specialty Diagnoses / Procedures Referred By Roderick t Referred To Contact XR IMAGING Diagnoses Pain of toe of right foot Procedures XR TOE AP/LAT/OBL RIGHT RADEX TOE MINIMUM 2 VIEWS Aarti Osorio APRN.COMMUNITY REINVESTMENT ACT OFFICER [address] [place] [address] [place] [address] Referral ID Status Reason Start Date Expiration Date V isits Requested Visits Authorized [id number] Closed Auto-Generate d Referral 06/19/2022 07/19/2023 1 1 [facility] for visit Narrative* Outpatient Procedure (Routine) - Closed Specialty Diagnoses / Procedures Referred By Roderick t Referred To Contact [facility] Diagnoses Dysphagia, unspecified type Heartburn Procedures EGD DIAGNOSTIC ESOPHAGOGASTRODUODENOSC OPY TRANSORAL DIAGNOSTIC Cathi Parks APRN.COMMUNITY REINVESTMENT ACT OFFICER [address] [place] [address] [facility] [address] [place] [address] Referral ID Status Reason Start Date Expiration Date V isits Requested Visits Authorized [id number] Closed Auto-Generate d Referral 03/23/2024 03/23/2025 1 1 [facility] for visit Narrative* Imaging (Routine) - Pending Review Specialty Diagnoses / Procedures Referred By Roderick t Referred To Contact Radiology Diagnoses Shortness of breath Chest pain, unspecified Procedures CT cardiac scoring wo IV [place] [address] Phone: tel: Referral ID Status Reason Start Date Expiration Date Visits Requested Visits Authorized [id number] Pending Review Perform Procedure 05/28/2024 05/28/2025 1 1 [facility] Work Phone: Reason for visit Narrative* Outpatient Procedure (Routine) - Closed Specialty Diagnoses / Procedures Referred By Roderick t Referred To Contact [facility] Diagnoses History of colonic polyps Procedures COLONOSCOPY SCREENING COLONOSCOPY FLX DX W/COLLJ SPEC WHEN PFRMD Cathi Parks APRN.COMMUNITY REINVESTMENT ACT OFFICER [address] [facility] [place] [address] Phone: tel: fax: [facility] [address] [place] [address] Referral ID Status Reason Start Date Expiration Date V isits Requested Visits Authorized [id number] Closed Auto-Generate d Referral 11/09/2024 11/09/2025 1 1 [facility] for visit Narrative* MRI/CT (Routine) - Closed Specialty Diagnoses / Procedures Referred By Roderick t Referred To Contact CT IMAGING Diagnoses Lung nodules Procedures CT CHEST WO IVCON DIAGNOSTIC COMPUTED TOMOGRAPHY THORAX W/O CNTRST Marcel Nichols, PRESSURIZATION MECHANIC.COMMUNITY REINVESTMENT ACT OFFICER [address] [place] [address] Phone: tel: fax: [place] [address] Referral ID Status Reason Start Date Expiration Date V isits Requested Visits Authorized [id number] Closed Auto-Generate d Referral 12/09/2024 01/08/2025 1 1 [facility] for visit Narrative* Diagnostic Procedure Only (Routine) - Closed Specialty Diagnoses / Procedures Referred By Roderick t Referred To Contact US IMAGING Diagnoses Urinary retention Procedures US KIDNEY/BLADDER US RETROPERITONEAL REAL TIME W/IMAGE COMPLETE Marcel Nichols, PRESSURIZATION MECHANIC.COMMUNITY REINVESTMENT ACT OFFICER [address] [place] [address] Phone: tel: fax: [id number] Referral ID Status Reason Start Date Expiration Date V isits Requested Visits Authorized [id number] Closed Auto-Generate d Referral 12/08/2024 01/07/2026 1 1 [facility] for visit Narrative* MRI/CT (Routine) - Closed Specialty Diagnoses / Procedures Referred By Roderick t Referred To Contact MR IMAGING Diagnoses Recurrent seizures (HCC) Procedures MRI BRAIN WO IVCON MRI BRAIN BRAIN STEM W/O CONTRAST MATERIAL Magda Garcia MD [address] [place] [address] Phone: tel: fax: [id number] Referral ID Status Reason Start Date Expiration Date V isits Requested Visits Authorized [id number] Closed Auto-Generate d Referral 01/05/2025 02/04/2025 1 1 [facility] Chief Complaint and Reason for Visit [...] am Fatigue December 09, 2024 11:07 am Chief Complaint Admit Date 30 DAY MONITOR August 25, 2024 9 :00am ALREADY HAD [place] [facility] DONE August 25, 2024 11:39am SYNCOPE AND COLLAPSE August 25, 2024 2:26pm 6 M FU September 13, 2024 1:27pm CONVULSIONS October 28, 2024 8:5 1am CONVULSONS November 30, 2024 3:52p m MRI RESULTS/ FOLLOW UP December 09, 2024 11 :07am E-ORDER December 09, 2024 11:47 am L PARASTHESIAS/L SIDED WEAKNESS/L FACIAL DROOP December 23, 2024 6:34pm Reason for Visit Admit Date Anxiety disorder [...] am Fatigue December 09, 2024 11:07 am Facial droop December 23, 2024 6:34p m Left-sided weakness December 23, 2024 6:34p m Paresthesias December 23, 2024 6:34p m Chief Complaint Admit Date 6 M FU September 13, 2024 1:27pm CONVULSIONS October 28, 2024 8:5 1am CONVULSONS November 30, 2024 3:52p m MRI RESULTS/ FOLLOW UP December 09, 2024 11 :07am E-ORDER December 09, 2024 11:47 am L PARASTHESIAS/L SIDED WEAKNESS/L FACIAL DROOP December 23, 2024 6:34pm L PARASTHESIAS/L SIDED WEAKNESS/L FACIAL DROOP December 24, 2024 7:41am Chief Complaint Admit Date CONVULSIONS October 28, 2024 8:5 1am CONVULSONS November 30, 2024 3:52p m MRI RESULTS/ FOLLOW UP December 09, 2024 11 :07am E-ORDER December 09, 2024 11:47 am L PARASTHESIAS/L SIDED WEAKNESS/L FACIAL DROOP December 23, 2024 6:34pm L PARASTHESIAS/L SIDED WEAKNESS/L FACIAL DROOP December 24, 2024 7:41am 1 M FU January 13, 2025 2:40 pm Reason for Visit Admit Date Family history of cerebral aneurysm December 09, 2024 11:07am First time seizure December 09, 2024 11:07 am Migraine headache with aura December 09 11:07am Syncope December 09, 2024 11:07 am Fatigue December 09, 2024 11:07 am Facial droop December 23, 2024 6:34p m Left-sided weakness December 23, 2024 6:34p m Paresthesias December 23, 2024 6:34p m Tick bite January 13, 2025 2:40 pm Chief Complaint Admit Date CONVULSIONS October 28, 2024 8:5 1am CONVULSONS November 30, 2024 3:52p m MRI RESULTS/ FOLLOW UP December 09, 2024 11 :07am E-ORDER December 09, 2024 11:47 am L PARASTHESIAS/L SIDED WEAKNESS/L FACIAL DROOP December 23, 2024 6:34pm L PARASTHESIAS/L SIDED WEAKNESS/L FACIAL DROOP December 24, 2024 7:41am 1 M FU January 13, 2025 2:40 pm E-ORDER January 13, 2025 3:48 pm Reason for Visit Admit Date Migraine headache with aura December 09 11:07am Acute left-sided weakness December 09, 2024 11:07am First time seizure December 09, 2024 11:07 am Syncope December 09, 2024 11:07 am Fatigue December 09, 2024 11:07 am Facial droop December 23, 2024 6:34p m Left-sided weakness December 23, 2024 6:34p m Paresthesias December 23, 2024 6:34p m Migraine headache with aura January 13, 025 2:40pm Seizures January 13, 2025 2:40 pm Tick bite January 13, 2025 2:40 pm Acute left-sided weakness January 13 2:40pm Syncope January 13, 2025 2:40 pm Fatigue January 13, 2025 2:40 pm Chief Complaint Admit Date CONVULSIONS October 28, 2024 8:5 1am CONVULSONS November 30, 2024 3:52p m MRI RESULTS/ FOLLOW UP December 09, 2024 11 :07am E-ORDER December 09, 2024 11:47 am L PARASTHESIAS/L SIDED WEAKNESS/L FACIAL DROOP December 23, 2024 6:34pm L PARASTHESIAS/L SIDED WEAKNESS/L FACIAL DROOP December 24, 2024 7:41am 1 M FU January 13, 2025 2:40 pm E-ORDER January 13, 2025 3:48 pm R WRIST INJURY February 07, 2025 1:19 pm XRAY February 07, 2025 1:22 pm Chief Complaint Admit Date CONVULSIONS October 28, 2024 8:5 1am CONVULSONS November 30, 2024 3:52p m MRI RESULTS/ FOLLOW UP December 09, 2024 11 :07am E-ORDER December 09, 2024 11:47 am L PARASTHESIAS/L SIDED WEAKNESS/L FACIAL DROOP December 23, 2024 6:34pm L PARASTHESIAS/L SIDED WEAKNESS/L FACIAL DROOP December 24, 2024 7:41am 1 M FU January 13, 2025 2:40 pm E-ORDER January 13, 2025 3:48 pm R WRIST INJURY February 07, 2025 1:19 pm XRAY February 07, 2025 1:22 pm B12 inject February 14, 2025 10:5 4am Reason for Visit Admit Date Migraine headache with aura December 09 11:07am Acute left-sided weakness December 09, 2024 11:07am First time seizure December 09, 2024 11:07 am Syncope December 09, 2024 11:07 am Fatigue December 09, 2024 11:07 am Facial droop December 23, 2024 6:34p m Left-sided weakness December 23, 2024 6:34p m Paresthesias December 23, 2024 6:34p m Migraine headache with aura January 13, 2 025 2:40pm Seizures January 13, 2025 2:40 pm Tick bite January 13, 2025 2:40 pm Acute left-sided weakness January 13 2:40pm Syncope January 13, 2025 2:40 pm Fatigue January 13, 2025 2:40 pm Strain of right wrist February 07, 2025 1: 19pm Chief Complaint Admit Date CONVULSONS November 30, 2024 3:52p m MRI RESULTS/ FOLLOW UP December 09, 2024 11 :07am E-ORDER December 09, 2024 11:47 am L PARASTHESIAS/L SIDED WEAKNESS/L FACIAL DROOP December 23, 2024 6:34pm L PARASTHESIAS/L SIDED WEAKNESS/L FACIAL DROOP December 24, 2024 7:41am 1 M FU January 13, 2025 2:40 pm E-ORDER January 13, 2025 3:48 pm R WRIST INJURY February 07, 2025 1:19 pm XRAY February 07, 2025 1:22 pm B12 inject February 14, 2025 10:5 4am Reason for Visit Admit Date Migraine headache with aura December 09 11:07am Acute left-sided weakness December 09, 2024 11:07am First time seizure December 09, 2024 11:07 am Syncope December 09, 2024 11:07 am Fatigue December 09, 2024 11:07 am Facial droop December 23, 2024 6:34p m Left-sided weakness December 23, 2024 6:34p m Paresthesias December 23, 2024 6:34p m Migraine headache with aura January 13, 2 025 2:40pm Seizures January 13, 2025 2:40 pm Tick bite January 13, 2025 2:40 pm Acute left-sided weakness January 13 2:40pm Syncope January 13, 2025 2:40 pm Fatigue January 13, 2025 2:40 pm Strain of right wrist February 07, 2025 1: 19pm Fatigue February 14, 2025 10:5 4am Chief Complaint Admit Date CONVULSONS November 30, 2024 3:52p m MRI RESULTS/ FOLLOW UP December 09, 2024 11 :07am E-ORDER December 09, 2024 11:47 am L PARASTHESIAS/L SIDED WEAKNESS/L FACIAL DROOP December 23, 2024 6:34pm L PARASTHESIAS/L SIDED WEAKNESS/L FACIAL DROOP December 24, 2024 7:41am 1 M FU January 13, 2025 2:40 pm E-ORDER January 13, 2025 3:48 pm R WRIST INJURY February 07, 2025 1:19 pm XRAY February 07, 2025 1:22 pm B12 inject February 14, 2025 10:5 4am 2 M FU March 17, 2025 2: 26pm Reason for Visit Admit Date Migraine headache with aura December 09 11:07am Acute left-sided weakness December 09, 2024 11:07am First time seizure December 09, 2024 11:07 am Syncope December 09, 2024 11:07 am Fatigue December 09, 2024 11:07 am Facial droop December 23, 2024 6:34p m Left-sided weakness December 23, 2024 6:34p m Paresthesias December 23, 2024 6:34p m Migraine headache with aura January 13, 2 025 2:40pm Seizures January 13, 2025 2:40 pm Tick bite January 13, 2025 2:40 pm Acute left-sided weakness January 13 2:40pm Syncope January 13, 2025 2:40 pm Fatigue January 13, 2025 2:40 pm Strain of right wrist February 07, 2025 1: 19pm Fatigue February 14, 2025 10:5 4am Hypoglycemia March 17, 2025 2: 26pm Migraine headache with aura March 17, 2025 2:26pm Seizures March 17, 2025 2: 26pm Tick bite March 17, 2025 2: 26pm Acute left-sided weakness March 17, 2 025 2:26pm Syncope March 17, 2025 2: 26pm Fatigue March 17, 2025 2: 26pm Advance Directives Advance Directive Response Recorded Date/ Time Living Will No January 17, 2022 10:23pm Power of Head Char Filter Tank Tender No January 17 10:23pm Advance Directive Response Recorded Date/ Time Living Will No January 19, 2022 3 :47pm Power of Head Char Filter Tank Tender No January 19, 2022 3:47pm Advance Directive Response Recorded Date/ Time Living Will No March 21 022 1:05pm Power of Head Char Filter Tank Tender No March 21, 2022 1:05pm Advance Directive Response Recorded Date/ Time Living Will No May 20 8:20pm Power of Head Char Filter Tank Tender No May 20, 2022 8:20pm Advance Directive Response Recorded Date/ Time Living Will No September 02 023 9:21pm Power of Head Char Filter Tank Tender No September 02, 2022 9:21pm Advance Directive Response Recorded Date/ Time Living Will No October 16, 2022 11:37pm Power of Head Char Filter Tank Tender No October 16 11:37pm Advance Directive Response Recorded Date/ Time Living Will No November 25, 2022 5: 21pm Power of Head Char Filter Tank Tender No November 25, 2022 5:21pm Advance Directive Response Recorded Date/ Time Living Will No June 10, 2 023 9:42pm Power of Head Char Filter Tank Tender No June 10, 2023 9:42pm Advance Directive Response Recorded Date/ Time Living Will No July 16, 2 023 4:51pm Power of Head Char Filter Tank Tender No July 16, 2023 4:51pm Advance Directive Response Recorded Date/ Time Living Will No August 01 2:19am Power of Head Char Filter Tank Tender No August 01, 2023 2:19am Advance Directive Response Recorded Date/ Time Living Will No August 06 6:44pm Power of Head Char Filter Tank Tender No August 06, 2023 6:44pm Advance Directive Response Recorded Date/ Time Living Will No August 27 5:03pm Power of Head Char Filter Tank Tender No August 27, 2023 5:03pm Advance Directive Response Recorded Date/ Time Living Will No August 27 11:07pm Power of Head Char Filter Tank Tender No August 27, 2023 11:07pm Advance Directive Response Recorded Date/ Time Advance Directives No November 12, 2 024 10:59am Advance Directive Response Recorded Date/ Time Living Will No November 26, 2023 4: 19pm Power of Head Char Filter Tank Tender No November 26, 2023 4:19pm Date Activated Date Inactivated Comments 11/25/2024 1:39 PM Question Answer Comments Full Code Order Discussed With: Patient Date Activated Date Inactivated Comments 11/25/2024 1:39 PM 11/27/2024 7:34 PM Question Answer Comments Full Code Order Discussed With: Patient Date Activated Date Inactivated Comments 11/25/2024 1:39 PM 11/27/2024 7:34 PM Advance Directive Response Recorded Date/ Time Do you have a Healthcare Power of Head Char Filter Tank Tender? No December 23, 2024 5:08pm Advance Directive Response Recorded Date/ Time Do you have a Healthcare Power of Head Char Filter Tank Tender? No December 23, 2024 9:47pm Reason for Referral Specialty Diagnoses / Procedures Referred By Contac t Referred To Contact MR IMAGING Diagnoses Mass of right foot Procedures MRI FOOT/TOES WO/W IVCON RT MRI LOWER EXTREM OTH/THN JT W/O & W/CONTR [place] [address] Mr Imaging Referral ID Status Reason Start Date Expiration Date Visits Requested Visits Authorized [id number] Authorized Auto-Generat ed Referral 07/25/2022 2022 1 1 Specialty Diagnoses / Procedures Referred By Roderick t Referred [facility] Diagnoses Soft tissue mass Diminished pulses in lower extremity Mass of right foot Procedures PVR ANK PRESS [facility] NON-INVAS PHYSIOLOGIC STD EXTREMITY ART 2 LEVEL [place] [address] [facility] [address] [place] [address] Referral ID Status Reason Start Date Expiration Date Visits Requested Visits Authorized [id number] Authorized Auto-Generat ed Referral 07/25/2022 07/25/2023 1 1 Specialty Diagnoses / Procedures Referred By Claudeac t Referred To Contact MR IMAGING Diagnoses Mass of right foot Procedures MRI FOOT/TOES WO/W IVCON RT MRI LOWER EXTREM OTH/THN JT W/O & W/[place] [address] [facility] [address] Referral ID Status Reason Start Date Expiration Date V isits Requested Visits Authorized [id number] Closed Auto-Generate d Referral 07/25/2022 2022 1 1 Specialty Diagnoses / Procedures Referred By Contac t Referred To Contact Diagnoses Does not have primary care provider Procedures ESTABLISH WITH PRIMARY CARE NEW PATIENT OFFICE/OUTPATIENT NEW HIGH [facility] 60 MINUTES Mojgan Elizabeth, WILLIAM.[facility] [address] [id number] Referral ID Status Reason Start Date Expiration Date Visits Requested Visits Authorized [id number] Authorized PCP Requested Referral 02/26/2024 02/25/2025 1 1 Specialty Diagnoses / Procedures Referred By Contac t Referred To Contact Diagnoses Osteopenia of other site Bony sclerosis Procedures CONSULT TO HEMATOLOGY/ONCOLOGY OFFICE/OUTPATIENT NEW HIGH MDM 60 MINUTES Mojgan Elizabeth, PRESSURIZATION MECHANIC.[employer] ACT OFFICER [address] [id number] Referral ID Status Reason Start Date Expiration Date Visits Requested Visits Authorized [id number] Authorized PCP Requested Referral 02/26/2024 02/24/2025 1 1 Specialty Diagnoses / Procedures Referred By Contac t Referred To Contact Nephrology Diagnoses Polycystic kidney disease Procedures CONSULT TO NEPHROLOGY OFFICE/OUTPATIENT NEW HIGH MDM 60 MINUTES Meaghan Bloom DO [address] [place] [address] Referral ID Status Reason Start Date Expiration Date Visits Requested Visits Authorized [id number] Authorized PCP Requested Referral 03/15/2024 03/15/2025 1 1 Specialty Diagnoses / Procedures Referred By Contac t Referred To Contact General Surgery Diagnoses Bony sclerosis Osteopenia of other site Testicular hypofunction Procedures CONSULT TO GENERAL SURGERY OFFICE/OUTPATIENT NEW HIGH MDM 60 MINUTES Meaghan Bloom DO [address] [place] [address] Referral ID Status Reason Start Date Expiration Date Visits Requested Visits Authorized [id number] Authorized PCP Requested Referral 03/15/2024 03/15/2025 1 1 Specialty Diagnoses / Procedures Referred By Contac t Referred To Contact XR IMAGING Diagnoses Bony sclerosis Osteopenia of other site Testicular hypofunction Procedures DXA-AXIAL SKELETON Stacy Meaghan Eddy, DO [address] [place] [address] [place] [address] Referral ID Status Reason Start Date Expiration Date Visits Requested Visits Authorized [id number] Authorized Auto-Generat ed Referral 03/15/2024 04/14/2025 1 1 Specialty Diagnoses / Procedures Referred By Contac t Referred To Contact XR IMAGING Diagnoses Bony sclerosis Procedures XR BONE SURVEY ROUTINE RADIOLOGIC EXAMINATION OSSEOUS SURVEY COMPL Misamarco Meaghan Eddy, DO [address] [place] [address] [place] [address] Referral ID Status Reason Start Date Expiration Date V isits Requested Visits Authorized [id number] Closed Auto-Generate d Referral 03/15/2024 04/14/2025 1 1 Specialty Diagnoses / Procedures Referred By Contac t Referred To Contact Nephrology Diagnoses Kidney cysts Procedures CONSULT TO NEPHROLOGY OFFICE/OUTPATIENT [facility] 60 MINUTES Cathi Parks, WILLIAM.[employer]MENT ACT OFFICER [address] [place] [address] Referral ID Status Reason Start Date Expiration Date Visits Requested Visits Authorized [id number] Authorized PCP Requested Referral 03/31/2024 03/31/2025 1 1 Specialty Diagnoses / Procedures Referred By Contac t Referred To Contact CT IMAGING Diagnoses Diarrhea, unspecified type Procedures CT ABD/PEL WO IVCON CT ABD & PELVIS W/O CONTRAST Cathi Parks, PRESSURIZATION MECHANIC.COMMUNITY REINVESTMENT ACT OFFICER [address] [place] [address] [place] [address] Referral ID Status Reason Start Date Expiration Date V isits Requested Visits Authorized [id number] Closed Auto-Generat ed Referral Patient Cleared - Admin/Chairm an/Director advise to proceed or did not respond 03/23/2024 04/22/2024 1 1 Specialty Diagnoses / Procedures Referred By Contac t Referred To Contact Endocrinology Diagnoses Osteopenia of lumbar spine Procedures CONSULT TO ENDOCRINOLOGY OFFICE/OUTPATIENT [facility] 60 MINUTES Meaghan Bloom, DO [address] [place] [address] Referral ID Status Reason Start Date Expiration Date Visits Requested Visits Authorized [id number] Authorized PCP Requested Referral 04/16/2024 04/16/2025 1 1 Summary Purpose Family History Relationship Condition Age at Onset Recorded Date/T [...] or prosecute any alcohol or drug abuse patient.[facility] the event this information is protected by the Federal Confidentiality of Alcohol and Drug Abuse Patient Records regulations: The Federal rules restrict any use of the information to criminally investigate or prosecute any alcohol or drug abuse patient.[facility] HospitalIn the event this information is protected by the Federal Confidentiality of Alcohol and Drug Abuse Patient Records regulations: The Federal rules restrict any use of the information to criminally investigate or prosecute any alcohol or drug abuse patient.[facility]In the event this information is protected by the Federal Confidentiality of Alcohol and Drug Abuse Patient Records regulations: The Federal rules restrict any use of the information to criminally investigate or prosecute any alcohol or drug abuse patient.[facility] HospitalIn the event this information is protected by the Federal Confidentiality of Alcohol and Drug Abuse Patient Records regulations: The Federal rules restrict any use of the information to criminally investigate or prosecute any alcohol or drug abuse patient.[facility] HospitalIn the event this information is protected by the Federal Confidentiality of Alcohol and Drug Abuse Patient Records regulations: The Federal rules restrict any use of the information to criminally investigate or prosecute any alcohol or drug abuse patient.[facility] HospitalIn the event this information is protected by the Federal Confidentiality of Alcohol and Drug Abuse Patient Records regulations: The Federal rules restrict any use of the information to criminally investigate or prosecute any alcohol or drug abuse patient.[facility] HospitalIn the event this information is protected by the Federal Confidentiality of Alcohol and Drug Abuse Patient Records regulations: The Federal rules restrict any use of the information to criminally investigate or prosecute any alcohol or drug abuse patient.[facility] HospitalIn the event this information is protected by the Federal Confidentiality of Alcohol and Drug Abuse Patient Records regulations: The Federal rules restrict any use of the information to criminally investigate or prosecute any alcohol or drug abuse patient.[facility] HospitalIn the event this information is protected by the Federal Confidentiality of Alcohol and Drug Abuse Patient Records regulations: The Federal rules restrict any use of the information to criminally investigate or prosecute any alcohol or drug abuse patient.[facility] HospitalIn the event this information is protected by the Federal Confidentiality of Alcohol and Drug Abuse Patient Records regulations: The Federal rules restrict any use of the information to criminally investigate or prosecute any alcohol or drug abuse patient.[facility] HospitalIn the event this information is protected by the Federal Confidentiality of Alcohol and Drug Abuse Patient Records regulations: The Federal rules restrict any use of the information to criminally investigate or prosecute any alcohol or drug abuse patient.[facility] HospitalIn the event this information is protected by the Federal Confidentiality of Alcohol and Drug Abuse Patient Records regulations: The Federal rules restrict any use of the information to criminally investigate or prosecute any alcohol or drug abuse patient.[facility] HospitalIn the event this information is protected by the Federal Confidentiality of Alcohol and Drug Abuse Patient Records regulations: The Federal rules restrict any use of the information to criminally investigate or prosecute any alcohol or drug abuse patient.[facility] HospitalIn the event this information is protected by the Federal Confidentiality of Alcohol and Drug Abuse Patient Records regulations: The Federal rules restrict any use of the information to criminally investigate or prosecute any alcohol or drug abuse patient.[facility] HospitalIn the event this information is protected by the Federal Confidentiality of Alcohol and Drug Abuse Patient Records regulations: The Federal rules restrict any use of the information to criminally investigate or prosecute any alcohol or drug abuse patient.[facility] HospitalIn the event this information is protected by the Federal Confidentiality of Alcohol and Drug Abuse Patient Records regulations: The Federal rules restrict any use of the information to criminally investigate or prosecute any alcohol or drug abuse patient.[facility] HospitalIn the event this information is protected by the Federal Confidentiality of Alcohol and Drug Abuse Patient Records regulations: The Federal rules restrict any use of the information to criminally investigate or prosecute any alcohol or drug abuse patient.[facility] HospitalIn the event this information is protected by the Federal Confidentiality of Alcohol and Drug Abuse Patient Records regulations: The Federal rules restrict any use of the information to criminally investigate or prosecute any alcohol or drug abuse patient.[facility] HospitalIn the event this information is protected by the Federal Confidentiality of Alcohol and Drug Abuse Patient Records regulations: The Federal rules restrict any use of the information to criminally investigate or prosecute any alcohol or drug abuse patient.[facility] HospitalIn the event this information is protected by the Federal Confidentiality of Alcohol and Drug Abuse Patient Records regulations: The Federal rules restrict any use of the information to criminally investigate or prosecute any alcohol or drug abuse patient.[facility] HospitalIn the event this information is protected by the Federal Confidentiality of Alcohol and Drug Abuse Patient Records regulations: The Federal rules restrict any use of the information to criminally investigate or prosecute any alcohol or drug abuse patient.[facility] HospitalIn the event this information is protected by the Federal Confidentiality of Alcohol and Drug Abuse Patient Records regulations: The Federal rules restrict any use of the information to criminally investigate or prosecute any alcohol or drug abuse patient.[facility] the event this information is protected by the Federal Confidentiality of Alcohol and Drug Abuse Patient Records regulations: The Federal rules restrict any use of the information to criminally investigate or prosecute any alcohol or drug abuse patient.[facility] HospitalIn the event this information is protected by the Federal Confidentiality of Alcohol and Drug Abuse Patient Records regulations: The Federal rules restrict any use of the information to criminally investigate or prosecute any alcohol or drug abuse patient.[facility] HospitalIn the event this information is protected by the Federal Confidentiality of Alcohol and Drug Abuse Patient Records regulations: The Federal rules restrict any use of the information to criminally investigate or prosecute any alcohol or drug abuse patient.[facility] the event this information is protected by the Federal Confidentiality of Alcohol and Drug Abuse Patient Records regulations: The Federal rules restrict any use of the information to criminally investigate or prosecute any alcohol or drug abuse patient.[facility] HospitalIn the event this information is protected by the Federal Confidentiality of Alcohol and Drug Abuse Patient Records regulations: The Federal rules restrict any use of the information to criminally investigate or prosecute any alcohol or drug abuse patient.[facility] HospitalIn the event this information is protected by the Federal Confidentiality of Alcohol and Drug Abuse Patient Records regulations: The Federal rules restrict any use of the information to criminally investigate or prosecute any alcohol or drug abuse patient.[facility] HospitalIn the event this information is protected by the Federal Confidentiality of Alcohol and Drug Abuse Patient Records regulations: The Federal rules restrict any use of the information to criminally investigate or prosecute any alcohol or drug abuse patient.[facility] HospitalIn the event this information is protected by the Federal Confidentiality of Alcohol and Drug Abuse Patient Records regulations: The Federal rules restrict any use of the information to criminally investigate or prosecute any alcohol or drug abuse patient.[facility] HospitalIn the event this information is protected by the Federal Confidentiality of Alcohol and Drug Abuse Patient Records regulations: The Federal rules restrict any use of the information to criminally investigate or prosecute any alcohol or drug abuse patient.[facility] HospitalIn the event this information is protected by the Federal Confidentiality of Alcohol and Drug Abuse Patient Records regulations: The Federal rules restrict any use of the information to criminally investigate or prosecute any alcohol or drug abuse patient.[facility] HospitalIn the event this information is protected by the Federal Confidentiality of Alcohol and Drug Abuse Patient Records regulations: The Federal rules restrict any use of the information to criminally investigate or prosecute any alcohol or drug abuse patient.[facility] HospitalIn the event this information is protected by the Federal Confidentiality of Alcohol and Drug Abuse Patient Records regulations: The Federal rules restrict any use of the information to criminally investigate or prosecute any alcohol or drug abuse patient.[facility] HospitalIn the event this information is protected by the Federal Confidentiality of Alcohol and Drug Abuse Patient Records regulations: The Federal rules restrict any use of the information to criminally investigate or prosecute any alcohol or drug abuse patient.[facility] HospitalIn the event this information is protected by the Federal Confidentiality of Alcohol and Drug Abuse Patient Records regulations: The Federal rules restrict any use of the information to criminally investigate or prosecute any alcohol or drug abuse patient.[facility] HospitalIn the event this information is protected by the Federal Confidentiality of Alcohol and Drug Abuse Patient Records regulations: The Federal rules restrict any use of the information to criminally investigate or prosecute any alcohol or drug abuse patient.[facility] HospitalIn the event this information is protected by the Federal Confidentiality of Alcohol and Drug Abuse Patient Records regulations: The Federal rules restrict any use of the information to criminally investigate or prosecute any alcohol or drug abuse patient.[facility] HospitalIn the event this information is protected by the Federal Confidentiality of Alcohol and Drug Abuse Patient Records regulations: The Federal rules restrict any use of the information to criminally investigate or prosecute any alcohol or drug abuse patient.[facility] HospitalIn the event this information is protected by the Federal Confidentiality of Alcohol and Drug Abuse Patient Records regulations: The Federal rules restrict any use of the information to criminally investigate or prosecute any alcohol or drug abuse patient.[facility] HospitalIn the event this information is protected by the Federal Confidentiality of Alcohol and Drug Abuse Patient Records regulations: The Federal rules restrict any use of the information to criminally investigate or prosecute any alcohol or drug abuse patient.[facility] HospitalIn the event this information is protected by the Federal Confidentiality of Alcohol and Drug Abuse Patient Records regulations: The Federal rules restrict any use of the information to criminally investigate or prosecute any alcohol or drug abuse patient.[facility] HospitalIn the event this information is protected by the Federal Confidentiality of Alcohol and Drug Abuse Patient Records regulations: The Federal rules restrict any use of the information to criminally investigate or prosecute any alcohol or drug abuse patient.[facility] HospitalIn the event this information is protected by the Federal Confidentiality of Alcohol and Drug Abuse Patient Records regulations: The Federal rules restrict any use of the information to criminally investigate or prosecute any alcohol or drug abuse patient.[facility] HospitalIn the event this information is protected by the Federal Confidentiality of Alcohol and Drug Abuse Patient Records regulations: The Federal rules restrict any use of the information to criminally investigate or prosecute any alcohol or drug abuse patient.[facility] HospitalIn the event this information is protected by the Federal Confidentiality of Alcohol and Drug Abuse Patient Records regulations: The Federal rules restrict any use of the information to criminally investigate or prosecute any alcohol or drug abuse patient.[facility] HospitalIn the event this information is protected by the Federal Confidentiality of Alcohol and Drug Abuse Patient Records regulations: The Federal rules restrict any use of the information to criminally investigate or prosecute any alcohol or drug abuse patient.[facility] HospitalIn the event this information is protected by the Federal Confidentiality of Alcohol and Drug Abuse Patient Records regulations: The Federal rules restrict any use of the information to criminally investigate or prosecute any alcohol or drug abuse patient.[facility] HospitalIn the event this information is protected by the Federal Confidentiality of Alcohol and Drug Abuse Patient Records regulations: The Federal rules restrict any use of the information to criminally investigate or prosecute any alcohol or drug abuse patient.[facility] HospitalIn the event this information is protected by the Federal Confidentiality of Alcohol and Drug Abuse Patient Records regulations: The Federal rules restrict any use of the information to criminally investigate or prosecute any alcohol or drug abuse patient.[facility] HospitalIn the event this information is protected by the Federal Confidentiality of Alcohol and Drug Abuse Patient Records regulations: The Federal rules restrict any use of the information to criminally investigate or prosecute any alcohol or drug abuse patient.[facility] HospitalIn the event this information is protected by the Federal Confidentiality of Alcohol and Drug Abuse Patient Records regulations: The Federal rules restrict any use of the information to criminally investigate or prosecute any alcohol or drug abuse patient.[facility] HospitalIn the event this information is protected by the Federal Confidentiality of Alcohol and Drug Abuse Patient Records regulations: The Federal rules restrict any use of the information to criminally investigate or prosecute any alcohol or drug abuse patient.[facility] HospitalIn the event this information is protected by the Federal Confidentiality of Alcohol and Drug Abuse Patient Records regulations: The Federal rules restrict any use of the information to criminally investigate or prosecute any alcohol or drug abuse patient.[facility] HospitalIn the event this information is protected by the Federal Confidentiality of Alcohol and Drug Abuse Patient Records regulations: The Federal rules restrict any use of the information to criminally investigate or prosecute any alcohol or drug abuse patient.[facility] Reason for Visit (unrecogniz ed section and content) Reason Onset Date Comments Biopsy Request 06/29/2015 Reason Comments New Pain Swelling Specialty Diagnoses / Procedures Referred By Roderick chamorro Referred To Contact Podiatry Diagnoses Pain of toe of right foot Procedures CONSULT TO PODIATRY OFFICE/OUTPATIENT NEW HIGH MDM 60-74 MINUTES Aarti Osorio, WILLIAM.COMMUNITY REINVESTMENT ACT OFFICER [address] [place] [address] Referral ID Status Reason Start Date Expiration Date V isits Requested Visits Authorized [id number] Closed PCP Requested Referral 06/19/2022 06/19/2023 1 1 Reason Comments Orders Reason Comments Patient Update Reason Comments Established Patient Follow Up Pain Swelling Specialty Diagnoses / Procedures Referred By Contac t Referred To Contact MR IMAGING Diagnoses Mass of right foot Procedures MRI FOOT/TOES WO/W IVCON RT MRI LOWER EXTREM OTH/THN JT W/O & W/CONTR MATR Tj Sorto [address] [place] [address] [place] [address] Referral ID Status Reason Start Date Expiration Date V isits Requested Visits Authorized [id number] Closed Auto-Generate d Referral 07/25/2022 2022 1 1 Reason Comments Radiology Review Reason Comments New Patient Reason Comments New Patient Evaluation Specialty Diagnoses / Procedures Referred By Contac t Referred To Contact Diagnoses Osteopenia of other site Bony sclerosis Procedures CONSULT TO HEMATOLOGY/ONCOLOGY OFFICE/OUTPATIENT NEW HIGH MDM 60 MINUTES Mojgan Elizabeth, PRESSURIZATION MECHANIC.COMMUNITY REINVESTMENT ACT OFFICER [address] [id number] Referral ID Status Reason Start Date Expiration Date V isits Requested Visits Authorized [id number] Closed PCP Requested Referral 02/26/2024 02/24/2025 1 1 Reason Comments AVS 03/15/24 Reason Comments Results Reason Comments Consult colonoscopy Specialty Diagnoses / Procedures Referred By Contac t Referred To Contact General Surgery Diagnoses Bony sclerosis Osteopenia of other site Testicular hypofunction Procedures CONSULT TO GENERAL SURGERY OFFICE/OUTPATIENT NEW HIGH MDM 60 MINUTES Meaghan Bloom DO [address] [place] [address] Referral ID Status Reason Start Date Expiration Date V isits Requested Visits Authorized [id number] Closed PCP Requested Referral 03/15/2024 03/15/2025 1 1 Reason Comments Request Outside Medical Records Reason Comments Radiology CT Specialty Diagnoses / Procedures Referred By Contac t Referred To Contact CT IMAGING Diagnoses Diarrhea, unspecified type Procedures CT ABD/PEL WO IVCON CT ABD & PELVIS W/O CONTRAST Cathi Parks, PRESSURIZATION MECHANIC.COMMUNITY REINVESTMENT ACT OFFICER [address] [place] [address] [place] [address] Referral ID Status Reason Start Date Expiration Date V isits Requested Visits Authorized [id number] Closed Auto-Generat ed Referral Patient Cleared - [...] MINUTES Meaghan Bloom, DO [address] [place] [address] Referral ID Status Reason Start Date Expiration Date V isits Requested Visits Authorized [id number] Closed PCP Requested Referral 04/16/2024 04/16/2025 1 1 Reason Comments Osteopenia Reason Comments Follow Up Reason Comments RW Release Planning Reason Comments RW Referral Reason Comments RW Case Management Reason Comments Osteopenia Fatigued and leg swe lling ongoing a few weeks Reason Comments F/U 3 Month Consult for EGD Reason Comments Med Change Request Reason Comments Nodule Specialty Diagnoses / Procedures Referred By Contac t Referred To Contact Pulmonary Disease Diagnoses Nodule of right lung Lung nodules Procedures CONSULT TO LUNG NODULE CLINIC OFFICE/OUTPATIENT NEW HIGH MDM 60 MINUTES Marcel Nichols, PRESSURIZATION MECHANIC.COMMUNITY REINVESTMENT ACT OFFICER [address] [place] [address] Phone: tel: fax: Referral ID Status Reason Start Date Expiration Date V isits Requested Visits Authorized [id number] Closed PCP Requested Referral 12/08/2024 12/08/2025 1 1 Reason Comments FILM [id number] Reason Comments New Patient Evaluation Hospital follow u p/Stroke follow up. Reason Comments nurse visit Reason Comments nurse visit bp check Reason Comments 11-24-2024 EGD Colonoscopy Reason Comments Refill Request Reason Onset Date Comments Refill Request 03/07/2025 Reason Comments Establish Care Goals (unrecognized section and content) Goals may [...] MD Primary Care Provider Active Team Status: Inactive [...] MD Primary Care Provider Active Start: December 23, 2024 End: December 24, 2024 Dr. Kyle Valerio DO Referring Provider Active Start : December 23, 2024 End: December 24, 2024 Dr. Kyle Valerio DO Emergency Provider Active Start : December 23, 2024 End: December 24, 2024 Dr. Daija Lopez DO Admit Provider Active Start : December 23, 2024 End: December 24, 2024 Dr. Daija Lopez DO Other Provider Active Start : December 23, 2024 End: December 24, 2024 Martir Dubose MD Other Provider Active Start: 2024 End: December 24, 2024 Dr. Addie Ayala MD Other Provider Active Start: December 23, 2024 End: December 24, 2024 Adilene Nava MD Other Provider Active Start : December 23, 2024 End: December 24, 2024 Dr. Judy Tena DO Other Provider Active St art: December 23, 2024 End: December 24, 2024 Dr. Azeb Ghotra MD Other Provider Active Start: December 23, 2024 End: December 24, 2024 Dr. Tye Bee MD Other Provider Active Sta rt: December 23, 2024 End: December 24, 2024 Dr. Sarah Corrales MD Other Provider Active Start : December 23, 2024 End: December 24, 2024 Dr. Shekhar Dunne MD Other Provider Active Start: December 23, 2024 End: December 24, 2024 Dr. Magalie García MD Other Provider Active Start : December 23, 2024 End: December 24, 2024 Dr. Samuel Luna MD Other Provider Active Sta rt: December 23, 2024 End: December 24, 2024 Minda Villagran MD Other Provider Active Start : December 23, 2024 End: December 24, 2024 Dr. Tj Calvin MD Other Provider Active St art: December 23, 2024 End: December 24, 2024 Dr. Deborah Miles MD Other Provider Active Start : December 23, 2024 End: December 24, 2024 Dr. Karl Hoang MD Other Provider Active Sta rt: December 23, 2024 End: December 24, 2024 Dr. Sarai Montgomery MD Other Provider Active Start: December 23, 2024 End: December 24, 2024 Dr. Juan Hayward MD Other Provider Active St art: December 23, 2024 End: December 24, 2024 Dr. Justine Sandoval MD Other Provider Active Star t: December 23, 2024 End: December 24, 2024 Dr. Valerio Coppola MD Other Provider Active St art: December 23, 2024 End: December 24, 2024 Dr. Monica Lopez MD Other Provider Active Start: December 23, 2024 End: December 24, 2024 Brennan Simon MD Other Provider Active Start: December 23, 2024 End: December 24, 2024 Dr. Gutierrez Polanco MD Attending Provider Active Start: December 23, 2024 End: December 24, 2024 Team Status: Active Member Role Status Dates Dr. Humberto Downs MD Primary Care Provider Active Start: December 24, 2024 Dr. Kyle Valerio DO Referring Provider Active Start : December 24, 2024 Dr. Kyle Valerio DO Emergency Provider Active Start : December 24, 2024 Dr. Daija Lopez DO Admit Provider Active Start : December 24, 2024 Dr. Daija Lopez DO Other Provider Active Start : December 24, 2024 Martir Dubose MD Other Provider Active Start: 2024 Dr. Addie Ayala MD Other Provider Active Start: December 24, 2024 Adilene Nava MD Other Provider Active Start : December 24, 2024 Dr. Judy Tena DO Other Provider Active St art: December 24, 2024 Dr. Azeb Ghotra MD Other Provider Active Start: December 24, 2024 Dr. Tye Bee MD Other Provider Active Sta rt: December 24, 2024 Dr. Sarah Corrales MD Other Provider Active Start : December 24, 2024 Dr. Shekhar Dunne MD Other Provider Active Start: December 24, 2024 Dr. Magalie García MD Other Provider Active Start : December 24, 2024 Dr. Samuel Luna MD Other Provider Active Sta rt: December 24, 2024 Minda Villagran MD Other Provider Active Start : December 24, 2024 Dr. Tj Calvin MD Other Provider Active St art: December 24, 2024 Dr. Deborah Miles MD Other Provider Active Start : December 24, 2024 Dr. Karl Hoang MD Other Provider Active Sta rt: December 24, 2024 Dr. Sarai Montgomery MD Other Provider Active Start: December 24, 2024 Dr. Juan Hayward MD Other Provider Active St art: December 24, 2024 Dr. Justine Sandoval MD Other Provider Active Star t: December 24, 2024 Dr. Valerio Coppola MD Other Provider Active St art: December 24, 2024 Dr. Monica Lopez MD Other Provider Active Start: December 24, 2024 Brennan Simon MD Other Provider Active Start: December 24, 2024 Dr. Gutierrez Polanco MD Attending Provider Active Start: December 24, 2024 Dr. Gutierrez Polanco MD Other Provider Active Star t: December 24, 2024 Team Status: Active Member Role Status [...] Referring Provider Active Start: August 25, 2024 Comber Fixer Relationship Specialty Start Date End Date Pcp, No PCP - General 02/02/22 08/20/22 Comber Fixer Relationship Specialty Start Date End Date Pcp, [...] Wilson DO Attending Provider, Emergency Provider Active Comber Fixer Relationship Specialty Start Date End Date Pcp, No, PRESSURIZATION MECHANIC PCP - General 02/02/22 08/20/22 Team Status: [...] Primary Care Provider Active Dr. Bogdan Austin , DO Emergency Provider Active Team Status: Inactive [...] Nava MD Other Provider Active Dr. Justine Sandoval MD Other Provider Active Dr. Judy Tena DO Other Provider Active Dr. Sarah Corrales MD Other Provider Active Dr. Valerio Coppola MD Other Provider Active Dr. Monica Lopez MD Other Provider Active Dr. Deborah Milse MD Other Provider Active Dr. Karl Hoang MD Other Provider Active Dr. Juan Hayward MD Other Provider Active Dr. Sarai Montgomery MD Other Provider Active Dr. Azeb Ghotra MD Other Provider Active Dr. Pankaj Rao MD Admit Provider, Attending Deborah harvey Active Team Status: Active Member Role Status [...] Nava MD Other Provider Active Dr. Justine Sandoval MD Other Provider Active Dr. Judy Tena [...] Active Sandra Chandler MD Other Provider Active AIYLN EATON MD Other Provider Active Kerwin Rachel [...] Nava MD Other Provider Active Dr. Justine Sandoval MD Other Provider Active Dr. Judy Tena [...] Nava MD Other Provider Active Dr. Justine Sandoval MD Other Provider Active Dr. Judy Tean DO Other Provider Active Dr. Sarah Corrales [...] Dr. Frank Cole DO Emergency Provider Active Comber Fixer Relationship Specialty Start Date End Date Humberto Downs MD [address] [place] [address] Infectious Diseases 02/26/24 Comber Fixer Relationship Specialty Start Date End Date Humberto Downs MD [address] [place] [address] Infectious Diseases 02/26/24 Comber Fixer Relationship Specialty Start Date End Date Humberto Downs MD [address] [place] [address] Infectious Diseases 02/26/24 Comber Fixer Relationship Specialty Start Date End Date Humberto Downs MD [address] [place] [address] Infectious Diseases 02/26/24 Mojgan Elizabeth, PRESSURIZATION MECHANIC.COMMUNITY REINVESTMENT ACT OFFICER [address] [place], [place] [id number] Radiology 03/15/24 Comber Fixer Relationship Specialty Start Date End Date Humberto Downs MD [address] [place] [address] Infectious Diseases 02/26/24 Mojgan Elizabeth, PRESSURIZATION MECHANIC.COMMUNITY REINVESTMENT ACT OFFICER [address] [place], [place] [id number] Radiology 03/15/24 Comber Fixer Relationship Specialty Start Date End Date Humberto Downs MD [address] [place] [address] Infectious Diseases 02/26/24 Mojgan Elizabeth APRN.COMMUNITY REINVESTMENT ACT OFFICER [address] [place], [place] [id number] Radiology 03/15/24 Comber Fixer Relationship Specialty Start Date End Date Humberto Downs MD [address] [place] [address] Infectious Diseases 02/26/24 Mojgan Elizabeth, PRESSURIZATION MECHANIC.COMMUNITY REINVESTMENT ACT OFFICER [address] [place], [place] [id number] Radiology 03/15/24 Comber Fixer Relationship Specialty Start Date End Date Humberto Downs MD [address] [facility] [place] [address] Infectious Diseases 02/26/24 Mojgan Elizabeth, PRESSURIZATION MECHANIC.COMMUNITY REINVESTMENT ACT OFFICER [address] [place], [place] [id number] Radiology 03/15/24 Comber Fixer Relationship Specialty Start Date End Date Humberto Downs MD [address] [facility] [place], [place] [id number] PCP - General Infectious Diseases 03/23/24 Humberto Downs MD [address] [facility] [place] [address] Infectious Diseases 02/26/24 Mojgan Elizabeth, PRESSURIZATION MECHANIC.COMMUNITY REINVESTMENT ACT OFFICER [address] [place], [place] [id number] Radiology 03/15/24 Comber Fixer Relationship Specialty Start Date End Date Humberto Downs MD [address] [place], [place] [id number] PCP - General Infectious Diseases 03/23/24 Humberto Downs MD [address] [place] [address] Infectious Diseases 02/26/24 Mojgan Elizabeth, PRESSURIZATION MECHANIC.COMMUNITY REINVESTMENT ACT OFFICER [address] [place], [place] [id number] Radiology 03/15/24 Comber Fixer Relationship Specialty Start Date End Date Humberto Downs MD [address] [facility], [place] [id number] PCP - General Infectious Diseases 03/23/24 Humberto Downs MD [address] [facility] [place] [address] Infectious Diseases 02/26/24 Mojgan Elizabeth, PRESSURIZATION MECHANIC.COMMUNITY REINVESTMENT ACT OFFICER [address] [place] [address] Radiology 03/15/24 Comber Fixer Relationship Specialty Start Date End Date Humberto Downs MD [address] [facility] [place] [address] PCP - General Infectious Diseases 03/23/24 Humberto Downs MD [address] [facility] [place] [place] [address] Infectious Diseases 02/26/24 Mojgan Elizabeth PRESSURIZATION MECHANIC.COMMUNITY REINVESTMENT ACT OFFICER [address] [place] [address] Radiology 03/15/24 Comber Fixer Relationship Specialty Start Date End Date Princess Pretty, PRESSURIZATION MECHANIC PCP - General 02/02/22 08/20/22 Comber Fixer Relationship Specialty Start Date End Date Humberto Downs MD [address] [place], [place] [id number] PCP - General Infectious Diseases 03/23/24 Humberto Downs MD [address] [place] [address] Infectious Diseases 02/26/24 Mojgan Elizabeth PRESSURIZATION MECHANIC.COMMUNITY REINVESTMENT ACT OFFICER [address] [place] [address] Radiology 03/15/24 Comber Fixer Relationship Specialty Start Date End Date Humberto Downs MD [address] [place] [address] PCP - General Infectious Diseases 03/23/24 Humberto Downs MD [address] [facility] [place] [address] Infectious Diseases 02/26/24 Mojgan Elizabeth, PRESSURIZATION MECHANIC.COMMUNITY REINVESTMENT ACT OFFICER [address] [facility] [address] Radiology 03/15/24 Comber Fixer Relationship Specialty Start Date End Date Humberto Downs MD [address] [facility] [place] [address] PCP - General Infectious Diseases 03/23/24 Humberto Downs MD [address] [place] [address] Infectious Diseases 02/26/24 Mojgan Elizabeth PRESSURIZATION MECHANIC.COMMUNITY REINVESTMENT ACT OFFICER [address] [facility] [address] Radiology 03/15/24 Comber Fixer Relationship Specialty Start Date End Date Humberto Downs MD [address] [place], [place] [id number] PCP - General Infectious Diseases 03/23/24 Humberto Downs MD [address] [place] [address] Infectious Diseases 02/26/24 Mojgan Elizabeth, PRESSURIZATION MECHANIC.COMMUNITY REINVESTMENT ACT OFFICER [address] [place] [address] Radiology 03/15/24 Comber Fixer Relationship Specialty Start Date End Date Humberto Downs MD [address] [place], [place] [id number] PCP - General Infectious Diseases 03/23/24 Humberto Downs MD [address] [facility] [place] [address] Infectious Diseases 02/26/24 Mojgan Elizabeth, PRESSURIZATION MECHANIC.COMMUNITY REINVESTMENT ACT OFFICER [address] [place] [address] Radiology 03/15/24 Comber Fixer Relationship Specialty Start Date End Date Humberto Downs MD [address] [place] [address] PCP - General Infectious Diseases 03/23/24 Humberto Downs MD [address] [place] [address] Infectious Diseases 02/26/24 Mojgan Elizabeth, PRESSURIZATION MECHANIC.COMMUNITY REINVESTMENT ACT OFFICER [address] [place] [address] Radiology 03/15/24 Comber Fixer Relationship Specialty Start Date End Date Humberto Downs MD [address] [facility], [place] [id number] PCP - General Infectious Diseases 03/23/24 Humberto Downs MD [address] [facility] [place] [address] Infectious Diseases 02/26/24 Mojgan Elizabeth, PRESSURIZATION MECHANIC.COMMUNITY REINVESTMENT ACT OFFICER [address] [place], [place] [id number] Radiology 03/15/24 Comber Fixer Relationship Specialty Start Date End Date Generic Provider, [place] [address] PCP - General Progress Developer 09/08/24 Team Status: Inactive Member Role Status Dates Dr. Humberto Downs MD Primary Care Provider Active Start: August 11, 2024 End: August 11, 2024 Dr. Humberto Downs MD Referring Provider Active Start: August 11, 2024 End: August 11, 2024 Dr. Yang Del Rio MD Attending Provider Active Start: August 11, 2024 End: August 11, 2024 Comber Fixer Relationship Specialty Start Date End Date Humberto Downs MD [address] [facility] [place] [address] PCP - General Infectious Diseases 03/23/24 Humberto Downs MD [address] [facility] [place] [address] Infectious Diseases 02/26/24 Mojgan Elizabeth, PRESSURIZATION MECHANIC.COMMUNITY REINVESTMENT ACT OFFICER [address] [place], [place] [id number] Radiology 03/15/24 Comber Fixer Relationship Specialty Start Date End Date Humberto Downs MD [address] [facility], [place] [id number] PCP - General Infectious Diseases 03/23/24 Humberto Downs MD [address] [facility] [place] [address] Infectious Diseases 02/26/24 Mojgan Elizabeth, PRESSURIZATION MECHANIC.COMMUNITY REINVESTMENT ACT OFFICER [address] [place], [place] [id number] Radiology 03/15/24 Comber Fixer Relationship Specialty Start Date End Date Pcp, No (History) PCP - General 11/22/24 Humberto Downs MD [address] [facility] [place] [address] Infectious Diseases 02/26/24 Mojgan Elizabeth, PRESSURIZATION MECHANIC.COMMUNITY REINVESTMENT ACT OFFICER [address] [place], [place] [id number] Radiology 03/15/24 Comber Fixer Relationship Specialty Start Date End Date Pcp, No (History) PCP - General 11/22/24 Humberto Downs MD [address] [facility] [place] [address] Infectious Diseases 02/26/24 Mojgan Elizabeth, PRESSURIZATION MECHANIC.COMMUNITY REINVESTMENT ACT OFFICER [address] [place], [place] [id number] Radiology 03/15/24 Comber Fixer Relationship Specialty Start Date End Date Pcp, No (History) PCP - General 11/22/24 Humberto Downs MD [address] [facility] [place] [address] Infectious Diseases 02/26/24 Mojgan Elizabeth, PRESSURIZATION MECHANIC.COMMUNITY REINVESTMENT ACT OFFICER [address] [place], [place] [id number] Radiology 03/15/24 Comber Fixer Relationship Specialty Start Date End Date Pcp, No (History) PCP - General 11/22/24 Humberto Downs MD [address] [place] [address] Infectious Diseases 02/26/24 Mojgan Elizabeth, PRESSURIZATION MECHANIC.COMMUNITY REINVESTMENT ACT OFFICER [address] [place], [place] [id number] Radiology 03/15/24 Comber Fixer Relationship Specialty Start Date End Date Pcp, No (History) PCP - General 11/22/24 Humberto Downs MD [address] [place] [address] Infectious Diseases 02/26/24 Mojgan Elizabeth, PRESSURIZATION MECHANIC.COMMUNITY REINVESTMENT ACT OFFICER [address] [place], [place] [id number] Radiology 03/15/24 Team Status: Active Member Role Status Dates Dr. Humberto Downs MD Primary Care Provider Active Start: December 23, 2024 Dr. Kyle Valerio DO Referring Provider Active Start : December 23, 2024 Dr. Kyle Valerio , Emergency Provider Active Start : December 23, 2024 Dr. Daija Lopez , Admit Provider Active Start : December 23, 2024 Dr. Daija Lopez , Attending Provider Active S tart: December 23, 2024 Dr. Daija Lopez , DO Other Provider Active Start : December 23, 2024 Comber Fixer Relationship Specialty Start Date End Date Pcp, No (History) PCP - General 11/22/24 Humberto Downs MD [address] [place] [address] Infectious Diseases 02/26/24 Mojgan Elizabeth, PRESSURIZATION MECHANIC.COMMUNITY REINVESTMENT ACT OFFICER [address] [place], [place] [id number] Radiology 03/15/24 Comber Fixer Relationship Specialty Start Date End Date Pcp, No (History) PCP - General 11/22/24 Humberto Downs MD [address] [place] [address] Infectious Diseases 02/26/24 Mojgan Elizabeth, PRESSURIZATION MECHANIC.COMMUNITY REINVESTMENT ACT OFFICER [address] [place], [place] [id number] Radiology 03/15/24 Comber Fixer Relationship Specialty Start Date End Date Pcp, No (History) PCP - General 11/22/24 Humberto Downs MD [address] [place] [address] Infectious Diseases 02/26/24 Mojgan Elizabeth, PRESSURIZATION MECHANIC.COMMUNITY REINVESTMENT ACT OFFICER [address] [place], [place] [id number] Radiology 03/15/24 Comber Fixer Relationship Specialty Start Date End Date Gabby Christina MD [address] [place] [address] PCP - General Family Medicine 01/04/25 Humberto Downs MD [address] [place] [address] Infectious Diseases 02/26/24 Mojgan Elizabeth, PRESSURIZATION MECHANIC.COMMUNITY REINVESTMENT ACT OFFICER [address] [facility] [place] [address] Radiology 03/15/24 Comber Fixer Relationship Specialty Start Date End Date Gabby Christina MD [address] [place] [address] PCP - General Family Medicine 01/04/25 Humberto Downs MD [address] [place] [address] Infectious Diseases 02/26/24 Mojgan Elizabeth, PRESSURIZATION MECHANIC.COMMUNITY REINVESTMENT ACT OFFICER [address] [place] [address] Radiology 03/15/24 Comber Fixer Relationship Specialty Start Date End Date Gabby Christina MD [address] [place] [address] PCP - General Family Medicine 01/04/25 Humberto Downs MD [address] [place] [address] Infectious Diseases 02/26/24 Mojgan Elizabeth, PRESSURIZATION MECHANIC.COMMUNITY REINVESTMENT ACT OFFICER [address] [place], [place] [id number] Radiology 03/15/24 Team Status: Active Member Role Status Dates Dr. Humberto Downs MD Primary Care Provider Active Start: December 24, 2024 Dr. Kyle Valerio DO Emergency Provider Active Start : December 24, 2024 Dr. Daija Lopez , Admit Provider Active Start : December 24, 2024 Dr. Daija Lopez DO Other Provider Active Start : December 24, 2024 Martir Dubose MD Other Provider Active Start: 2024 Dr. Addie Ayala MD Other Provider Active Start: December 24, 2024 Adilene Nava MD Other Provider Active Start : December 24, 2024 Dr. Judy Tena DO Other Provider Active St art: December 24, 2024 Dr. Azeb Ghotra MD Other Provider Active Start: December 24, 2024 Dr. Tye Bee MD Other Provider Active Sta rt: December 24, 2024 Dr. Sarah Corrales MD Other Provider Active Start : December 24, 2024 Dr. Shekhar Dunne MD Other Provider Active Start: December 24, 2024 Dr. Magalie García MD Other Provider Active Start : December 24, 2024 Dr. Samuel Luna MD Other Provider Active Sta rt: December 24, 2024 Minda Villagran MD Other Provider Active Start : December 24, 2024 Dr. Tj Calvin MD Other Provider Active St art: December 24, 2024 Dr. Deborah Miles MD Other Provider Active Start : December 24, 2024 Dr. Karl Hoang MD Other Provider Active Sta rt: December 24, 2024 Dr. Sarai Montgomery MD Other Provider Active Start: December 24, 2024 Dr. Juan Hayward MD Other Provider Active St art: December 24, 2024 Dr. Justine Sandoval MD Other Provider Active Star t: December 24, 2024 Dr. Valerio Coppola MD Other Provider Active St art: December 24, 2024 Dr. Monica Lopez MD Other Provider Active Start: December 24, 2024 Brennan Simon MD Other Provider Active Start: December 24, 2024 Dr. Gutierrez Polanco MD Attending Provider Active Start: December 24, 2024 Dr. Gutierrez Polanco MD Other Provider Active Star t: December 24, 2024 Team Status: Inactive Member Role Status Dates Dr. Humberto Downs MD Primary Care Provider Active Start: January 13, 2025 End: January 13, 2025 Dr. Humberto Downs MD Referring Provider Active Start: January 13, 2025 End: January 13, 2025 Dr. Yang Del Rio MD Attending Provider Active Start: January 13, 2025 End: January 13, 2025 Comber Fixer Relationship Specialty Start Date End Date Gabby Christina MD [address] [place] [address] PCP - General Family Medicine 01/04/25 Humberto Downs MD [address] [place] [place] [address] Infectious Diseases 02/26/24 Mojgan Elizabeth APRN.COMMUNITY REINVESTMENT ACT OFFICER [address] [place] [address] Radiology 03/15/24 Team Status: Active Member Role/Relationship Status Dates GABBY CHRISTINA Primary Care Provider Active Team Status: Inactive Member Role/Relationship Status Dates Dr. Humberto Downs MD Primary Care Provider Active Start: October 28, 2024 End: October 28, 2024 Dr. Yang Del Rio MD Attending Provider Active Start: October 28, 2024 End: October 28, 2024 Dr. Yang Del Rio MD Referring Provider Active Start: October 28, 2024 End: October 28, 2024 Team Status: Inactive Member Role/Relationship Status Dates Dr. Humberto Downs MD Primary Care Provider Active Start: November 18, 2024 End: November 18, 2024 Dr. Skye Lopez DO Attending Provider Active Start: November 18, 2024 End: November 18, 2024 Dr. Skye Lopez DO Referring Provider Active Start: November 18, 2024 End: November 18, 2024 Team Status: Inactive Member Role/Relationship Status Dates Dr. Humberto Downs MD Primary Care Provider Active Start: November 30, 2024 End: November 30, 2024 Dr. Yang Del Rio MD Attending Provider Active Start: November 30, 2024 End: November 30, 2024 Dr. Yang Del Rio MD Referring Provider Active Start: November 30, 2024 End: November 30, 2024 Team Status: Inactive Member Role/Relationship Status Dates Dr. Humberto Downs MD Primary Care Provider Active Start: December 09, 2024 End: December 09, 2024 Dr. Humberto Downs MD Referring Provider Active Start: December 09, 2024 End: December 09, 2024 Dr. Yang Del Rio MD Attending Provider Active Start: December 09, 2024 End: December 09, 2024 Team Status: Inactive Member Role/Relationship Status Dates Dr. Humberto Downs MD Primary Care Provider Active Start: December 09, 2024 End: December 09, 2024 Dr. Yang Del Rio MD Attending Provider Active Start: December 09, 2024 End: December 09, 2024 Dr. Yang Del Rio MD Referring Provider Active Start: December 09, 2024 End: December 09, 2024 Team Status: Inactive Member Role/Relationship Status Dates Dr. Humberto Downs MD Primary Care Provider Active Start: December 23, 2024 End: December 24, 2024 Dr. Kyle Valerio DO Referring Provider Active Start : December 23, 2024 End: December 24, 2024 Dr. Kyle Valerio DO Emergency Provider Active Start : December 23, 2024 End: December 24, 2024 Dr. Daija Lopez DO Admit Provider Active Start : December 23, 2024 End: December 24, 2024 Dr. Daija Lopez DO Other Provider Active Start : December 23, 2024 End: December 24, 2024 Martir Dubose MD Other Provider Active Start: 2024 End: December 24, 2024 Dr. Addie Ayala MD Other Provider Active Start: December 23, 2024 End: December 24, 2024 Adilene Nava MD Other Provider Active Start : December 23, 2024 End: December 24, 2024 Dr. Judy Tena DO Other Provider Active St art: December 23, 2024 End: December 24, 2024 Dr. Azeb Ghotra MD Other Provider Active Start: December 23, 2024 End: December 24, 2024 Dr. Tye Bee MD Other Provider Active Sta rt: December 23, 2024 End: December 24, 2024 Dr. Sarah Corrales MD Other Provider Active Start : December 23, 2024 End: December 24, 2024 Dr. Shekhar Dunne MD Other Provider Active Start: December 23, 2024 End: December 24, 2024 Dr. Magalie García MD Other Provider Active Start : December 23, 2024 End: December 24, 2024 Dr. Samuel Luna MD Other Provider Active Sta rt: December 23, 2024 End: December 24, 2024 Minda Villagran MD Other Provider Active Start : December 23, 2024 End: December 24, 2024 Dr. Tj Calvin MD Other Provider Active St art: December 23, 2024 End: December 24, 2024 Dr. Deborah Miles MD Other Provider Active Start : December 23, 2024 End: December 24, 2024 Dr. Karl Hoang MD Other Provider Active Sta rt: December 23, 2024 End: December 24, 2024 Dr. Sarai Montgomery MD Other Provider Active Start: December 23, 2024 End: December 24, 2024 Dr. Juan Hayward MD Other Provider Active St art: December 23, 2024 End: December 24, 2024 Dr. Justine Sandoval MD Other Provider Active Star t: December 23, 2024 End: December 24, 2024 Dr. Valerio Coppola MD Other Provider Active St art: December 23, 2024 End: December 24, 2024 Dr. Monica Lopez MD Other Provider Active Start: December 23, 2024 End: December 24, 2024 Brennan Simon MD Other Provider Active Start: December 23, 2024 End: December 24, 2024 Dr. Gutierrez Polanco MD Attending Provider Active Start: December 23, 2024 End: December 24, 2024 Team Status: Active Member Role/Relationship Status Dates Dr. Humberto Downs MD Primary Care Provider Active Start: December 24, 2024 Dr. Kyle Valerio DO Emergency Provider Active Start : December 24, 2024 Dr. Daija Lopez DO Admit Provider Active Start : December 24, 2024 Dr. Daija Lopez DO Other Provider Active Start : December 24, 2024 Martir Dubose MD Other Provider Active Start: 2024 Dr. Addie Ayala MD Other Provider Active Start: December 24, 2024 Adilene Nava MD Other Provider Active Start : December 24, 2024 Dr. Judy Tena DO Other Provider Active St art: December 24, 2024 Dr. Azeb Ghotra MD Other Provider Active Start: December 24, 2024 Dr. Tye Bee MD Other Provider Active Sta rt: December 24, 2024 Dr. Sarah Corrales MD Other Provider Active Start : December 24, 2024 Dr. Shekhar Dunne MD Other Provider Active Start: December 24, 2024 Dr. Magalie García MD Other Provider Active Start : December 24, 2024 Dr. Samuel Luna MD Other Provider Active Sta rt: December 24, 2024 Minda Villagran MD Other Provider Active Start : December 24, 2024 Dr. Tj Calvin MD Other Provider Active St art: December 24, 2024 Dr. Deborah Miles MD Other Provider Active Start : December 24, 2024 Dr. Karl Hoang MD Other Provider Active Sta rt: December 24, 2024 Dr. Sarai Montgomery MD Other Provider Active Start: December 24, 2024 Dr. Juan Hayward MD Other Provider Active St art: December 24, 2024 Dr. Justine Sandoval MD Other Provider Active Star t: December 24, 2024 Dr. Valerio Coppola MD Other Provider Active St art: December 24, 2024 Dr. Monica Lopez MD Other Provider Active Start: December 24, 2024 Brennan Simon MD Other Provider Active Start: December 24, 2024 Dr. Gutierrez Polanco MD Attending Provider Active Start: December 24, 2024 Dr. Gutierrez Polanco MD Other Provider Active Star t: December 24, 2024 Team Status: Inactive Member Role/Relationship Status Dates Dr. Humberto Downs MD Primary Care Provider Active Start: January 13, 2025 End: January 13, 2025 Dr. Humberto Downs MD Referring Provider Active Start: January 13, 2025 End: January 13, 2025 Dr. Yang Del Rio MD Attending Provider Active Start: January 13, 2025 End: January 13, 2025 Team Status: Inactive Member Role/Relationship Status Dates DIPTI PIERRE Primary Care Provider Active St art: January 13, 2025 End: January 13, 2025 Dr. Yang Del Rio MD Attending Provider Active Start: January 13, 2025 End: January 13, 2025 Dr. Yang Del Rio MD Referring Provider Active Start: January 13, 2025 End: January 13, 2025 Comber Fixer Relationship Specialty Start Date End Date Humberto Downs MD [address] [place], [place] [id number] PCP - General Infectious Diseases 03/23/24 11/21/24 Pcp, No (History) PCP - General 11/22/24 01/03/25 Gabby Christina MD [address] [place] [id number] PCP - General Family Medicine 01/04/25 Humberto Downs MD [address] [place] [phone] Infectious Diseases 02/26/24 Mojgan Elizabeth, PRESSURIZATION MECHANIC.COMMUNITY REINVESTMENT ACT OFFICER [address] [place] [address] Radiology 03/15/24 Comber Fixer Relationship Specialty Start Date End Date Pcp, No (History) PCP - General 11/22/24 01/03/25 Gabby Christina MD [address] [place] [address] PCP - General Family Medicine 01/04/25 Humberto Downs MD [address] [place] [place] [address] Infectious Diseases 02/26/24 Mojgan Elizabeth, WILLIAM.COMMUNITY REINVESTMENT ACT OFFICER [address] [place], [place] [id number] Radiology 03/15/24 Team Status: Inactive Member Role/Relationship Status Dates Dr. Humberto Downs MD Primary Care Provider Active Start: October 28, 2024 End: October 28, 2024 Dr. Yang Del Rio MD Attending Provider Active Start: October 28, 2024 End: October 28, 2024 Dr. Yang Del Rio MD Referring Provider Active Start: October 28, 2024 End: October 28, 2024 Team Status: Inactive Member Role/Relationship Status Dates Dr. Humberto Downs MD Primary Care Provider Active Start: November 18, 2024 End: November 18, 2024 Dr. Skye Lopez DO Attending Provider Active Start: November 18, 2024 End: November 18, 2024 Dr. Skye Lopez DO Referring Provider Active Start: November 18, 2024 End: November 18, 2024 Team Status: Inactive Member Role/Relationship Status Dates Dr. Humberto Downs MD Primary Care Provider Active Start: November 30, 2024 End: November 30, 2024 Dr. Yang Del Rio MD Attending Provider Active Start: November 30, 2024 End: November 30, 2024 Dr. Yang Del Rio MD Referring Provider Active Start: November 30, 2024 End: November 30, 2024 Team Status: Inactive Member Role/Relationship Status Dates Dr. Humberto Downs MD Primary Care Provider Active Start: December 09, 2024 End: December 09, 2024 Dr. Yang Del Rio MD Attending Provider Active Start: December 09, 2024 End: December 09, 2024 Dr. Yang Del Rio MD Referring Provider Active Start: December 09, 2024 End: December 09, 2024 Team Status: Inactive Member Role/Relationship Status Dates Dr. Humberto Downs MD Primary Care Provider Active Start: December 09, 2024 End: December 09, 2024 Dr. Yang Del Rio MD Attending Provider Active Start: December 09, 2024 End: December 09, 2024 Dr. Yang Del Rio MD Referring Provider Active Start: December 09, 2024 End: December 09, 2024 Team Status: Inactive Member Role/Relationship Status Dates Dr. Humberto Downs MD Primary Care Provider Active Start: December 23, 2024 End: December 24, 2024 Dr. Kyle Valerio DO Referring Provider Active Start : December 23, 2024 End: December 24, 2024 Dr. Kyle Valerio DO Emergency Provider Active Start : December 23, 2024 End: December 24, 2024 Dr. Daija Lopez DO Admit Provider Active Start : December 23, 2024 End: December 24, 2024 Dr. Daija Lopez DO Other Provider Active Start : December 23, 2024 End: December 24, 2024 Martir Dubose MD Other Provider Active Start: 2024 End: December 24, 2024 Dr. Addie Ayala MD Other Provider Active Start: December 23, 2024 End: December 24, 2024 Adilene Nava MD Other Provider Active Start : December 23, 2024 End: December 24, 2024 Dr. Judy Tena DO Other Provider Active St art: December 23, 2024 End: December 24, 2024 Dr. Azeb Ghotra MD Other Provider Active Start: December 23, 2024 End: December 24, 2024 Dr. Tye Bee MD Other Provider Active Sta rt: December 23, 2024 End: December 24, 2024 Dr. Sarah Corrales MD Other Provider Active Start : December 23, 2024 End: December 24, 2024 Dr. Shekhar Dunne MD Other Provider Active Start: December 23, 2024 End: December 24, 2024 Dr. Magalie García MD Other Provider Active Start : December 23, 2024 End: December 24, 2024 Dr. Samuel Luna MD Other Provider Active Sta rt: December 23, 2024 End: December 24, 2024 Minda Villagran MD Other Provider Active Start : December 23, 2024 End: December 24, 2024 Dr. Tj Calvin MD Other Provider Active St art: December 23, 2024 End: December 24, 2024 Dr. Deborah Miles MD Other Provider Active Start : December 23, 2024 End: December 24, 2024 Dr. Karl Hoang MD Other Provider Active Sta rt: December 23, 2024 End: December 24, 2024 Dr. Sarai Montgomery MD Other Provider Active Start: December 23, 2024 End: December 24, 2024 Dr. Juan Hayward MD Other Provider Active St art: December 23, 2024 End: December 24, 2024 Dr. Justine Sandoval MD Other Provider Active Star t: December 23, 2024 End: December 24, 2024 Dr. Valerio Coppola MD Other Provider Active St art: December 23, 2024 End: December 24, 2024 Dr. Monica Lopez MD Other Provider Active Start: December 23, 2024 End: December 24, 2024 Brennan Simon MD Other Provider Active Start: December 23, 2024 End: December 24, 2024 Dr. Gutierrez Polanco MD Attending Provider Active Start: December 23, 2024 End: December 24, 2024 Team Status: Active Member Role/Relationship Status Dates Dr. Humberto Downs MD Primary Care Provider Active Start: December 24, 2024 Dr. Kyle Valerio DO Emergency Provider Active Start : December 24, 2024 Dr. Daija Lopez DO Admit Provider Active Start : December 24, 2024 Dr. Daija Lopez DO Other Provider Active Start : December 24, 2024 Martir Dubose MD Other Provider Active Start: 2024 Dr. Addie Ayala MD Other Provider Active Start: December 24, 2024 Adilene Nava MD Other Provider Active Start : December 24, 2024 Dr. Judy Tena DO Other Provider Active St art: December 24, 2024 Dr. Azeb Ghotra MD Other Provider Active Start: December 24, 2024 Dr. Tye Bee MD Other Provider Active Sta rt: December 24, 2024 Dr. Sarah Corrales MD Other Provider Active Start : December 24, 2024 Dr. Shekhar Dunne MD Other Provider Active Start: December 24, 2024 Dr. Magalie García MD Other Provider Active Start : December 24, 2024 Dr. Samuel Luna MD Other Provider Active Sta rt: December 24, 2024 Minda Villagran MD Other Provider Active Start : December 24, 2024 Dr. Tj Calvin MD Other Provider Active St art: December 24, 2024 Dr. Deborah Miles MD Other Provider Active Start : December 24, 2024 Dr. Karl Hoang MD Other Provider Active Sta rt: December 24, 2024 Dr. Sarai Montgomery MD Other Provider Active Start: December 24, 2024 Dr. Juan Hayward MD Other Provider Active St art: December 24, 2024 Dr. Justine Sandoval MD Other Provider Active Star t: December 24, 2024 Dr. Valerio Coppola MD Other Provider Active St art: December 24, 2024 Dr. Monica Lopez MD Other Provider Active Start: December 24, 2024 Brennan Simon MD Other Provider Active Start: December 24, 2024 Dr. Gutierrez Polanco MD Attending Provider Active Start: December 24, 2024 Dr. Gutierrez Polanco MD Other Provider Active Star t: December 24, 2024 Team Status: Inactive Member Role/Relationship Status Dates Dr. Humberto Downs MD Primary Care Provider Active Start: January 13, 2025 End: January 13, 2025 Dr. Humberto Downs MD Referring Provider Active Start: January 13, 2025 End: January 13, 2025 Dr. Yang Del Rio MD Attending Provider Active Start: January 13, 2025 End: January 13, 2025 Team Status: Inactive Member Role/Relationship Status Dates DIPTI PIERRE Primary Care Provider Active St art: January 13, 2025 End: January 13, 2025 Dr. Yang Del Rio MD Attending Provider Active Start: January 13, 2025 End: January 13, 2025 Dr. Yang Del Rio MD Referring Provider Active Start: January 13, 2025 End: January 13, 2025 Team Status: Active Member Role/Relationship Status Dates FREDY Bueno Attending Provider Active Start: February 07, 2025 Team Status: Inactive Member Role/Relationship Status Dates Dr. Genaro Avalos MD Attending Provider Active S tart: February 07, 2025 End: February 07, 2025 Team Status: Inactive Member Role/Relationship Status Dates FREDY Bueno Attending Provider Active Start: February 07, 2025 End: February 07, 2025 Team Status: Inactive Member Role/Relationship Status Dates Dr. Humberto Downs MD Referring Provider Active Start: February 14, 2025 End: February 14, 2025 Dr. Yang Del Rio MD Attending Provider Active Start: February 14, 2025 End: February 14, 2025 Comber Fixer Relationship Specialty Start Date End Date Pcp, No (History) PCP - General 11/22/24 01/03/25 Gabby Christina MD [address] [place] [address] PCP - General Family Medicine 01/04/25 Humberto Downs MD [address] [place] [phone] Infectious Diseases 02/26/24 Mojgan Elizabeth APRN.COMMUNITY REINVESTMENT ACT OFFICER [address] [place] [address] Radiology 03/15/24 Comber Fixer Relationship Specialty Start Date End Date Gabby Christina MD [address] [place] [address] PCP - General Family Medicine 01/04/25 Humberto Downs MD [address] [place] [phone] Infectious Diseases 02/26/24 Mojgan Elizabeth, PRESSURIZATION MECHANIC.COMMUNITY REINVESTMENT ACT OFFICER [address] [place] [address] Radiology 03/15/24 Team Status: Active Member Role/Relationship Status Dates No Primary Care Physician Primary Care Provider Active Team Status: Inactive Member Role/Relationship Status Dates Dr. Humberto Downs MD Primary Care Provider Active Start: January 13, 2025 End: January 13, 2025 Dr. Yang Del Rio MD Attending Provider Active Start: January 13, 2025 End: January 13, 2025 Dr. Yang Del Rio MD Referring Provider Active Start: January 13, 2025 End: January 13, 2025 Team Status: Inactive Member Role/Relationship Status Dates No Primary Care Physician Primary Care Provider Active Start: March 02, 2025 End: March 02, 2025 Dr. Humberto Downs MD Attending Provider Active Start: March 02, 2025 End: March 02, 2025 Dr. Humberto Downs MD Referring Provider Active Start: March 02, 2025 End: March 02, 2025 Comber Fixer Relationship Specialty Start Date End Date Gabby Christina MD [facility] [place] [address] PCP - General Family Medicine 01/04/25 Humberto Downs MD [address] [place] [phone] Infectious Diseases 02/26/24 Mojgan Elizabeth APRN.COMMUNITY REINVESTMENT ACT OFFICER [address] [place] [address] Radiology 03/15/24 Comber Fixer Relationship Specialty Start Date End Date Gabby Christina MD [address] [place] [id number] PCP - General Family Medicine 01/04/25 Humberto Downs MD [address] [place] [phone] Infectious Diseases 02/26/24 Mojgan Elizabeth, PRESSURIZATION MECHANIC.COMMUNITY REINVESTMENT ACT OFFICER [address] [place] [address] Radiology 03/15/24 Comber Fixer Relationship Specialty Start Date End Date Gabby Christina MD [address] [place] [id number] PCP - General Family Medicine 01/04/25 Humberto Downs MD [address] [place] [address] Infectious Diseases 02/26/24 Mojgan Elizabeth APRN.COMMUNITY REINVESTMENT ACT OFFICER [address] [place] [address] Radiology 03/15/24 Team Status: Inactive Member Role/Relationship Status Dates Dr. Humberto Downs MD Referring Provider Active Start: March 17, 2025 End: March 17, 2025 Dr. Yang Del Rio MD Attending Provider Active Start: March 17, 2025 End: March 17, 2025 No Primary Care Physician Primary Care Provider Active Start: March 17, 2025 End: March 17, 2025 (unrecognized sect ion and content) No Status Records FoundNo Status Records FoundNo Status Records FoundNo Status Records FoundNo Status Records FoundNo Status Records FoundNo Status Records FoundNo Status Records FoundNo Status Records FoundNo Status Records Found INFORMATION SOURCE (unrecogn ized section and content) DATE CREATED AUTHOR 04/23/2023 [facility] DATE CREATED AUTHOR AUTHOR'S ORGANIZ ATION 11/23/2023 [facility] DATE CREATED AUTHOR AUTHOR'S ORGANIZ ATION 01/05/2024 [facility] DATE CREATED AUTHOR AUTHOR'S ORGANIZ ATION 05/18/2024 [facility] DATE CREATED AUTHOR AUTHOR'S ORGANIZ ATION 09/15/2024 [facility] DATE CREATED AUTHOR AUTHOR'S ORGANIZ ATION 11/30/2024 [facility] DATE CREATED AUTHOR AUTHOR'S ORGANIZ ATION 01/15/2025 [facility] DATE CREATED AUTHOR AUTHOR'S ORGANIZ ATION 03/10/2025 [facility] DATE CREATED AUTHOR AUTHOR'S ORGANIZ ATION 03/10/2025 [facility] DATE CREATED AUTHOR AUTHOR'S ORGANIZ ATION 03/24/2025 [facility] FOR RECORDS PERTAINING TO PATIENTS WHO [...] THE PRIMARY CLINICAL RECORDS. [facility] [employer] [facility]. provides no warranty or guarantee of the accuracy or completeness of information in this document.
[2025-03-31 07:31] LABS: AST(SGOT) 28 U/L (<=37); Alanine Aminotransfer ALT/SGPT 34 U/L (<=46); Albumin, Serum 4.4 g/dL (3.5-5.0); Alkaline Phosphatase 107 U/L (40-129); Bilirubin, Direct 0.19 mg/dL (0.00-0.30); Cholesterol 122 mg/dL (<=200); Globulin 2.8 g/dL (2.2-4.2); Low Density Lipoprotein Calc. 58 mg/dL; Triglycerides 100 mg/dL; Very Low Density Lipoprotein 20 mg/dL (5-40); cholesterol:hdl ratio screen 2.75
[2025-03-31 07:33] LABS: Glucose GTT- Fasting 96 mg/dL (70-99)
[2025-03-31 09:21] LABS: Glucose GTT-30 minutes 172 mg/dL (110-170)
[2025-03-31 10:18] LABS: Glucose GTT- 1 Hour 202 mg/dL (120-170)
[2025-03-31 11:25] LABS: Glucose GTT- 2 Hour 133 mg/dL (70-120)
[2025-03-31 14:39] LABS: Glucose GTT- 3 Hour 44 mg/dL (70-110)
== END | disposition home or self-care (01) ==
PROVIDERS: Referring Provider Psychiatry & Neurology Neurology; Visit Provider Psychiatry & Neurology Neurology
DX: E78.00 Pure hypercholesterolemia, unspecified (principal); I10 Essential (primary) hypertension; E16.2 Hypoglycemia, unspecified
CPT/HCPCS: 36415; 80061; 80076; 82951; 82952

== ENCOUNTER → 2025-07-19 | Outpatient (CLI) | payer MEDICAID, SELFPAY ==
[2025-07-22 11:08] LABS: Vitamin D 1,25-Dihydroxy 33.5 pg/mL (24.8-81.5)
== END | disposition home or self-care (01) ==
LOC: MTLAB 14:08
PROVIDERS: Referring Provider Psychiatry & Neurology Neurology; Visit Provider Psychiatry & Neurology Neurology
DX: Q61.3 Polycystic kidney, unspecified (principal)
CPT/HCPCS: 36415; 82652